=== PATIENT | male | born 1965 | race Caucasian/White ===

== ENCOUNTER 2017-06-15 05:31 | Inpatient (IN) ==
--- NOTE | 2017-06-15 05:44 | Emergency Department Note ---
Disposition Clinical Impression: Right flank pain Disposition: Still a Patient Condition: Fair Referrals: Miya Aden DO [Primary Care Provider] - Forms: ED Satisfaction Letter, Work/School Release Time of Disposition: 07:07 Abdominal Pain HPI - General Chief Complaint: ED Abdominal Pain Stated Complaint: right flank pain Time Seen by Provider: 06/15/17 06:00 Source: patient Mode of arrival: ambulatory Limitations: no limitations Nursing Notes Reviewed: Yes Vital Signs Reviewed: Yes - History of Present Illness HPI Narrative: 52-year-old male history of type 2 diabetes straight catheterizations previous scrotal infections presents complaining of right flank pain states that his pain is similar to previous episodes of kidney stones he reports no history of lithotripsy his past previous kidney stones by straight catheterization is at symptoms for last couple of days reports some dysuria denies hematuria. States that his pain is 10 out of 10 right flank radiating to his groin. Reports nausea but no emesis denies diarrhea hematochezia or melena. Pt Subjective Complaint: abdominal pain Onset (ago): day(s) Pain Severity: severe Pain Scale: 10 Quality: stabbing Radiation: none Migration to: no migration Improves with: nothing Worsens with: nothing Associated symptoms: Denies: nausea, vomiting, diarrhea, fever, chills, constipation - Related Data Previous Rx's Medication Instructions Recorded Terbinafine HCl [Lamisil At] 24 gm TP DAILY 10 Days #1 bottle 04/17/17 Allergies Allergy/AdvReac Type Severity Reaction Status Date / Time No Known Allergies Allergy Verified 06/15/17 05:31 All systems ED: reviewed and negative except as stated. Review of Systems: As Per HPI Constitutional: Denies: fever, chills Eyes: Denies: eye pain ENT ED: Denies: ear pain Cardiovascular: Denies: chest pain Respiratory: Denies: cough Gastrointestinal: Reports: as per HPI, abdominal pain, nausea Genitourinary: Denies: urgency Musculoskeletal: Denies: back pain Integumentary: Denies: rash Neurological: Denies: headache Psychiatric: Denies: anxiety Abdominal Pain PMH - Past Medical History Medical history: Reports: diabetes, hypertension Psychiatric history: Reports: anxiety - Social History Smoking status: Never smoker Alcohol use: Reports: none Drug use: Reports: none Physical Exam Constitutional: Uncomfortable appearing middle-aged male Eyes: PERRLA, sclera anicteric ENT & Mouth: MMM Neck: normal inspection, neck is supple Resp: CTA bilaterally, no resp distress CV: RRR, no m/g/r GI: normal inspection, soft, is right CVA tenderness mild right lower quadrant tenderness no guarding or rigidity Neuro: A&O3, CNII-XII grossly intact, HALL Skin: on limited exam, skin intact with no rashes or lesions - General Limitations: no limitations General appearance: alert, in no apparent distress Course Course Narrative: 50-year-old male with right CVA tenderness concerning for possible nephrolithiasis added BASIC lab work pain medication CT scan of abdomen urinalysis care be signed out to Dr. Worley and Dr. Jean for disposition pending CT scan lab work and imaging assessment. Vital Signs Temperature 97.7 F 06/15/17 05:33 Pulse Rate 89 06/15/17 05:33 Respiratory Rate 20 06/15/17 05:33 Blood Pressure 198/118 06/15/17 05:33 O2 Sat by Pulse Oximetry 100 06/15/17 05:33 Temperature 97.7 F 06/15/17 05:33 Pulse Rate 93 06/15/17 08:00 Respiratory Rate 16 06/15/17 08:00 Blood Pressure 106/88 06/15/17 08:00 O2 Sat by Pulse Oximetry 98 06/15/17 08:00 Oxygen Delivery Oxygen Delivery Room Air Abdominal Pain - Differential Diagnosis Differential Diagnosis: Likely: calculus of kidney, constipation, colonic obstruction, diverticulitis, diverticulosis - Lab Data Result diagrams: 06/15/17 06:43 Lab Results 06/15/17 06/15/17 Range/Units 06:08 06:43 Sodium 133 L (136-145) mEq/L Potassium 4.5 (3.5-5.1) mEq/L Chloride 104 (98-107) mEq/L Carbon Dioxide 19 L (23-29) mEq/L BUN 59 H (6-20) mg/dL Creatinine 3.85 H (0.70-1.30) mg/dL Est GFR ( Amer) 20 L (> 60) Est GFR (Non-Af Amer) 17 L (> 60) BUN/Creatinine Ratio 15 (6-26) Glucose 116 H (70-105) mg/dL Calculated Osmolality 294 (280-300) Calcium 8.6 (8.6-10.3) mg/dL Total Bilirubin 0.2 L (0.3-1.0) mg/dL Direct Bilirubin 0.0 (0.0-0.2) mg/dL Indirect Bilirubin 0.2 (0.0-1.2) mg/dL AST 13 (13-39) Units/L ALT 9 (7-52) Units/L Alkaline Phosphatase 100 (34-104) Units/L Serum Total Protein 7.2 (6.4-8.9) g/dL Albumin 2.9 L (3.5-5.7) g/dL Globulin 4.3 H (2.4-3.5) g/dL Albumin/Globulin Ratio 0.7 L (1.1-2.2) Lipase 8 L (11-82) Units/L Urine Color Yellow (Yellow) Urine Clarity Turbid A (Clear) Urine pH 6.5 (5.0-8.0) pH Units Ur Specific [place] 1.023 (1.010-1.025) Urine Protein >=1000 H (Neg-Trace) mg/dL Urine Glucose (UA) 250 H (Normal) mg/dL Urine Ketones Negative (Negative) mg/dL Urine Blood Small H (Negative) Urine Nitrite Negative (Negative) Urine Bilirubin Negative (Negative) Urine Urobilinogen Normal (Normal) mg/dL Ur Leukocyte Esterase Moderate H (Negative) Urine Microscopic RBC 5-15 H (0-3) per hpf Urine Microscopic WBC TNTC H (0-3) per hpf Ur Squamous Epith Cells Many H (None-Few) per lpf Urine Bacteria None Seen (None-Few) per hpf Hyaline Casts Few (None-Few) per lpf Urine Yeast Few H (None Seen) per hpf Ur Culture Indicated? NO. (NO) - Radiology Data Radiology results reviewed: Yes I reviewed the patient's radiology results. Abdomen/Pelvis CT 06/15/17 05:55 IMPRESSION: Right-sided hydronephrosis without ureteral or bladder calculus. High attenuation has developed in the proximal right ureter which may be due to hemorrhage given the rapid development. There is a tiny calculus within the right kidney. Urinary bladder wall thickening may represent cystitis or outlet obstruction. D/ / Artemio Jade MD / Artemio Jade MD Interpreting Provider: Artemio Jade MD S.Mimi - Andrew Transition of Care: Labs/ CT reassess Situation: Demographics, MOA Background: Presenting Complaint, Relevant PMH, Meds, & Allergies Assessment: Vital Signs, Course and respsone to treatment, Exam Concerns, Patient/Family Expectation, Pertinant Lab Results, Outstanding Labs Recommendation: Barrier(s) to disposition, Recommendation based on pending studies, treatments, or consults SMike Report Given to: Miranda Morales Repor Time: 07:08 Attestation Statement - Attestation Attestation: I, Danny Owens MD, personally evaluated this patient and discussed their management with the resident physician. I reviewed the resident's note and agree with the documented findings, medical decision making, and plan of care. 52-year-old male presents to the emergency department with a complaint of right flank pain and right lower abdominal pain for about 2 days prior to arrival. Also complains of dysuria. No gross hematuria. No fever. Some nausea but no vomiting or diarrhea. Patient does intermittent self straight catheters. He does have a history of urinary tract infections in the past and also history of kidney stones. He states he really cannot tell if this feels like a UTI or kidney stone. On examination patient is a well-developed obese male in no acute distress. He is alert and oriented. No cyanosis or diaphoresis. Sounds are clear and equal bilaterally. Heart regular rate and rhythm. Abdomen soft with normal bowel sounds. Some right mid and right lower abdominal tenderness with no guarding or rebound tenderness. Mild right CVA tenderness. At shift change test results are pending and patient is signed out to the oncoming dayshift team, Dr. Jean and Dr. Worley.
[2017-06-15 06:28] LABS: Bacteria,Urine None Seen per hpf (None-Few); Hyaline Casts,Urine Few per lpf (None-Few); Squamous Epithelial Cell,Urine Many per lpf (None-Few); WBC,Urine TNTC per hpf (0-3)
[2017-06-15 06:33] LABS: Bilirubin,Urine Negative (Negative); Blood,Urine Small (Negative); Clarity,Urine Turbid (Clear); Color,Urine Yellow (Yellow); Glucose,Urine (UA) 250 mg/dL (Normal); Ketones,Urine Negative (Negative); Leukocyte Esterase,Urine Moderate (Negative); Nitrite,Urine Negative (Negative); PH,Urine 6.5 pH Units (5.0-8.0); Protein,Urine >=1000 mg/dL (Neg-Trace); Specific Gravity,Urine 1.023 (1.010-1.025); Urobilinogen,Urine Normal (Normal)
[2017-06-15 06:37] LABS: Yeast,Urine Few per hpf (None Seen)
[2017-06-15] MEDS ORDERED: 0.9 % Sodium Chloride 1,000 ML IVC ONE (06:56)
[2017-06-15] MEDS ORDERED: Ketorolac 15 MG/ML VIAL IVP ONE (06:56)
[2017-06-15] MEDS ORDERED: *HR* FentaNYL (PF) 100 MCG/2 ML VIAL IVP ONE (07:06)
[2017-06-15] MEDS ORDERED: Ondansetron 4 MG/2 ML VIAL IVP ONE ×2 (07:06→15:25)
[2017-06-15] MEDS ORDERED: cefTRIAXone 1,000 MG in Water for inj. (sterile) 20 ML 10 ML IVP ONE (07:28)
--- NOTE | 2017-06-15 07:28 | Emergency Department Note ---
Disposition Clinical Impression: Right flank pain, Pyelonephritis, Acute kidney injury Disposition: Admitted As Inpatient Condition: Good Referrals: Miya Aden DO [Primary Care Provider] - Forms: ED Satisfaction Letter, Work/School Release Abdominal Pain HPI - General Chief Complaint: ED Abdominal Pain Stated Complaint: right flank pain Time Seen by Provider: 06/15/17 06:00 Source: patient Mode of arrival: ambulatory Nursing Notes Reviewed: Yes Vital Signs Reviewed: Yes - History of Present Illness Pt Subjective Complaint: abdominal pain Pain Severity: severe Pain Scale: 10 Quality: stabbing Migration to: no migration Improves with: nothing Worsens with: nothing Associated symptoms: Denies: nausea, vomiting, diarrhea, fever, chills, constipation - Related Data Home Medications Medication Instructions Recorded Confirmed Aspirin Enteric Coated [Aspirin EC] 81 mg PO DAILY 06/15/17 06/15/17 Insulin ASPART [Novolog Flexpen] 10 units SQ BID 06/15/17 06/15/17 Insulin ASPART [Novolog Flexpen] 15 units SQ 1200 06/15/17 06/15/17 Insulin Glargine,Hum.rec.anlog 60 units SQ HS 06/15/17 06/15/17 [Lantus Solostar] Lisinopril [Zestril] 10 mg PO DAILY 06/15/17 06/15/17 Allergies Allergy/AdvReac Type Severity Reaction Status Date / Time No Known Allergies Allergy Verified 06/15/17 05:31 Constitutional: Denies: fever, chills Eyes: Denies: eye pain ENT ED: Denies: ear pain Cardiovascular: Denies: chest pain Respiratory: Denies: cough Gastrointestinal: Reports: as per HPI, abdominal pain, nausea Genitourinary: Denies: urgency Musculoskeletal: Denies: back pain Integumentary: Denies: rash Neurological: Denies: headache Psychiatric: Denies: anxiety Abdominal Pain PMH - Past Medical History Medical history: Reports: diabetes, hypertension Psychiatric history: Reports: anxiety - Social History Smoking status: Never smoker Alcohol use: Reports: none Drug use: Reports: none Physical Exam - General Limitations: no limitations General appearance: alert, in no apparent distress Course Vital Signs Temperature 97.7 F 06/15/17 05:33 Pulse Rate 89 06/15/17 05:33 Respiratory Rate 20 06/15/17 05:33 Blood Pressure 198/118 06/15/17 05:33 O2 Sat by Pulse Oximetry 100 06/15/17 05:33 Temperature 97.7 F 06/15/17 05:33 Pulse Rate 91 06/15/17 11:00 Respiratory Rate 16 06/15/17 11:00 Blood Pressure 164/81 06/15/17 11:00 O2 Sat by Pulse Oximetry 98 06/15/17 11:00 Oxygen Delivery Oxygen Delivery Room Air Abdominal Pain - MDM Narrative Medical decision making narrative: This documentation is done with the assistance of Dragon dictation. Despite efforts made to ensure accuracy, there may be inaccuracies in mine promotor or spelling and typographical errors. I examined this patient and my medical decision-making was reviewed with the Resident Physician. I agree with the documented findings, disposition and treatment plan as described except to the extent set forth below. Patient seen and evaluated by Dr. Jean and myself, this was a sign out from the evening ER physician Dr. Owens and Dr. Alonzo. Patient is having flank pain CT shows no stone. He does have quite a few white cells in his urine and signs of infection. He has a history of pyelonephritis. Regular is labs back start him on antibiotics and admit. He is in agreement with this plan. Abdomen/Pelvis CT 06/15/17 05:55 IMPRESSION: Right-sided hydronephrosis without ureteral or bladder calculus. High attenuation has developed in the proximal right ureter which may be due to hemorrhage given the rapid development. There is a tiny calculus within the right kidney. Urinary bladder wall thickening may represent cystitis or outlet obstruction. D/ / Artemio Jade MD / Artemio Jade MD Interpreting Provider: Artemio Jade MD 1124 hrs.: Patient's currently admitted for pyelonephritis. He is in agreement with plan. - Lab Data Result diagrams: 06/15/17 06:43 06/15/17 06:43 Lab Results 06/15/17 06/15/17 06/15/17 Range/Units 06:08 06:43 06:43 WBC 13.5 H (4.3-11.1) K/mcL RBC 4.30 (4.19-5.50) M/mcL Hgb 12.0 L (12.9-16.9) g/dL Hct 35.6 L (37.5-50.1) % MCV 82.8 L (83.0-100.0) fL MCH 27.9 L (28.0-33.3) pg MCHC 33.7 (31.6-35.5) g/dL RDW 13.2 (11.5-14.5) % Plt Count 425 H (140-400) K/mcL MPV 8.9 L (9.4-12.4) fL Immature Gran % 0.4 (0-4) % Seg Neutrophils % 81.1 % Lymphocytes % 11.1 % Monocytes % 7.0 % Eosinophils % 0.1 % Basophils % 0.3 % Neutrophils # 10.9 H (1.6-8.9) K/mcL Lymphocytes # 1.5 (0.6-4.6) K/mcL Monocytes # 0.9 (0.0-1.3) K/mcL Eosinophils # 0.0 (0.0-0.6) K/mcL Basophils # 0.0 (0.0-0.2) K/mcL Sodium 133 L (136-145) mEq/L Potassium 4.5 (3.5-5.1) mEq/L Chloride 104 (98-107) mEq/L Carbon Dioxide 19 L (23-29) mEq/L BUN 59 H (6-20) mg/dL Creatinine 3.85 H (0.70-1.30) mg/dL Est GFR ( Amer) 20 L (> 60) Est GFR (Non-Af Amer) 17 L (> 60) BUN/Creatinine Ratio 15 (6-26) Glucose 116 H (70-105) mg/dL Calculated Osmolality 294 (280-300) Lactic Acid (0.5-2.2) mmol/L Calcium 8.6 (8.6-10.3) mg/dL Total Bilirubin 0.2 L (0.3-1.0) mg/dL Direct Bilirubin 0.0 (0.0-0.2) mg/dL Indirect Bilirubin 0.2 (0.0-1.2) mg/dL AST 13 (13-39) Units/L ALT 9 (7-52) Units/L Alkaline Phosphatase 100 (34-104) Units/L Creatine Kinase 62 (30-223) Units/L Serum Total Protein 7.2 (6.4-8.9) g/dL Albumin 2.9 L (3.5-5.7) g/dL Globulin 4.3 H (2.4-3.5) g/dL Albumin/Globulin Ratio 0.7 L (1.1-2.2) Lipase 8 L (11-82) Units/L Urine Color Yellow (Yellow) Urine Clarity Turbid A (Clear) Urine pH 6.5 (5.0-8.0) pH Units Ur Specific [place] 1.023 (1.010-1.025) Urine Protein >=1000 H (Neg-Trace) mg/dL Urine Glucose (UA) 250 H (Normal) mg/dL Urine Ketones Negative (Negative) mg/dL Urine Blood Small H (Negative) Urine Nitrite Negative (Negative) Urine Bilirubin Negative (Negative) Urine Urobilinogen Normal (Normal) mg/dL Ur Leukocyte Esterase Moderate H (Negative) Urine Microscopic RBC 5-15 H (0-3) per hpf Urine Microscopic WBC TNTC H (0-3) per hpf Ur Squamous Epith Cells Many H (None-Few) per lpf Urine Bacteria None Seen (None-Few) per hpf Hyaline Casts Few (None-Few) per lpf Urine Yeast Few H (None Seen) per hpf Ur Culture Indicated? NO. (NO) 06/15/17 Range/Units 10:10 WBC (4.3-11.1) K/mcL RBC (4.19-5.50) M/mcL Hgb (12.9-16.9) g/dL Hct (37.5-50.1) % MCV (83.0-100.0) fL MCH (28.0-33.3) pg MCHC (31.6-35.5) g/dL RDW (11.5-14.5) % Plt Count (140-400) K/mcL MPV (9.4-12.4) fL Immature Gran % (0-4) % Seg Neutrophils % % Lymphocytes % % Monocytes % % Eosinophils % % Basophils % % Neutrophils # (1.6-8.9) K/mcL Lymphocytes # (0.6-4.6) K/mcL Monocytes # (0.0-1.3) K/mcL Eosinophils # (0.0-0.6) K/mcL Basophils # (0.0-0.2) K/mcL Sodium (136-145) mEq/L Potassium (3.5-5.1) mEq/L Chloride (98-107) mEq/L Carbon Dioxide (23-29) mEq/L BUN (6-20) mg/dL Creatinine (0.70-1.30) mg/dL Est GFR ( Amer) (> 60) Est GFR (Non-Af Amer) (> 60) BUN/Creatinine Ratio (6-26) Glucose (70-105) mg/dL Calculated Osmolality (280-300) Lactic Acid 1.5 (0.5-2.2) mmol/L Calcium (8.6-10.3) mg/dL Total Bilirubin (0.3-1.0) mg/dL Direct Bilirubin (0.0-0.2) mg/dL Indirect Bilirubin (0.0-1.2) mg/dL AST (13-39) Units/L ALT (7-52) Units/L Alkaline Phosphatase (34-104) Units/L Creatine Kinase (30-223) Units/L Serum Total Protein (6.4-8.9) g/dL Albumin (3.5-5.7) g/dL Globulin (2.4-3.5) g/dL Albumin/Globulin Ratio (1.1-2.2) Lipase (11-82) Units/L Urine Color (Yellow) Urine Clarity (Clear) Urine pH (5.0-8.0) pH Units Ur Specific [place] (1.010-1.025) Urine Protein (Neg-Trace) mg/dL Urine Glucose (UA) (Normal) mg/dL Urine Ketones (Negative) mg/dL Urine Blood (Negative) Urine Nitrite (Negative) Urine Bilirubin (Negative) Urine Urobilinogen (Normal) mg/dL Ur Leukocyte Esterase (Negative) Urine Microscopic RBC (0-3) per hpf Urine Microscopic WBC (0-3) per hpf Ur Squamous Epith Cells (None-Few) per lpf Urine Bacteria (None-Few) per hpf Hyaline Casts (None-Few) per lpf Urine Yeast (None Seen) per hpf Ur Culture Indicated? (NO)
[2017-06-15 07:43] LABS: Albumin 2.9 g/dL (3.5-5.7); Albumin/Globulin Ratio 0.7 (1.1-2.2); Bilirubin,Indirect 0.2 mg/dL (0.0-1.2); Bilirubin,Total 0.2 mg/dL (0.3-1.0); Calcium 8.6 mg/dL (8.6-10.3); Globulin 4.3 g/dL (2.4-3.5); Potassium 4.5 mEq/L (3.5-5.1); Total Protein 7.2 g/dL (6.4-8.9)
[2017-06-15 08:11] LABS: Basophils % 0.3 %; Eosinophils % 0.1 %; Hematocrit 35.6 % (37.5-50.1); Immature Granulocytes % 0.4 % (0-4); Lymphocytes # 1.5 K/mcL (0.6-4.6); Lymphocytes % 11.1 %; Mean Corpuscular HGB Conc 33.7 g/dL (31.6-35.5); Mean Corpuscular Hemoglobin 27.9 pg (28.0-33.3); Mean Corpuscular Volume 82.8 fL (83.0-100.0); Mean Platelet Volume 8.9 fL (9.4-12.4); Monocytes # 0.9 K/mcL (0.0-1.3); Neutrophils # 10.9 K/mcL (1.6-8.9); Platelet Count 425 K/mcL (140-400); Red Cell Distribution Width 13.2 % (11.5-14.5); Segmented Neutrophils % 81.1 %
--- NOTE | 2017-06-15 08:45 | Emergency Department Note ---
Disposition Clinical Impression: Right flank pain, Pyelonephritis, Acute kidney injury Disposition: Admitted As Inpatient Condition: Good Referrals: Miya Aden DO [Primary Care Provider] - Forms: ED Satisfaction Letter, Work/School Release Abdominal Pain HPI - General Chief Complaint: ED Abdominal Pain Stated Complaint: right flank pain Time Seen by Provider: 06/15/17 06:00 Source: patient Mode of arrival: ambulatory - History of Present Illness Pt Subjective Complaint: abdominal pain Pain Severity: severe Pain Scale: 10 Quality: stabbing Migration to: no migration Improves with: nothing Worsens with: nothing Associated symptoms: Denies: nausea, vomiting, diarrhea, fever, chills, constipation - Related Data Home Medications Medication Instructions Recorded Confirmed Aspirin Enteric Coated [Aspirin EC] 81 mg PO DAILY 06/15/17 06/15/17 Insulin ASPART [Novolog Flexpen] 10 units SQ BID 06/15/17 06/15/17 Insulin ASPART [Novolog Flexpen] 15 units SQ 1200 06/15/17 06/15/17 Insulin Glargine,Hum.rec.anlog 60 units SQ HS 06/15/17 06/15/17 [Lantus Solostar] Lisinopril [Zestril] 10 mg PO DAILY 06/15/17 06/15/17 Allergies Allergy/AdvReac Type Severity Reaction Status Date / Time No Known Allergies Allergy Verified 06/15/17 05:31 Constitutional: Denies: fever, chills Eyes: Denies: eye pain ENT ED: Denies: ear pain Cardiovascular: Denies: chest pain Respiratory: Denies: cough Gastrointestinal: Reports: as per HPI, abdominal pain, nausea Genitourinary: Denies: urgency Musculoskeletal: Denies: back pain Integumentary: Denies: rash Neurological: Denies: headache Psychiatric: Denies: anxiety Abdominal Pain PMH - Past Medical History Medical history: Reports: diabetes, hypertension Psychiatric history: Reports: anxiety - Social History Smoking status: Never smoker Alcohol use: Reports: none Drug use: Reports: none Physical Exam - General Limitations: no limitations General appearance: alert, in no apparent distress Course Course Narrative: Taken over at sign out from Dr. Alonzo. Patient is a type II diabetic that presented today for left flank pain. History of scrotal infections and kidney stones. The patient received basic blood work and urinalysis as well as a CT scan of his abdomen and pelvis. Urinalysis concerning for infection. CT scan concerning for hydronephrosis as well as high attenuation within the ureter. Discussed with urology who states that he may need further urologic intervention but nothing emergent at this time. We will be happy to consult while he is in the hospital. Antibiotics and fluids have been administered within the emergency department. The patient is much more comfortable. He continues to have right-sided flank pain with radiation into the groin. The patient's exam shows some moderate phimosis with mild tenderness to the right scrotal area without erythema or open lesion or any signs of infection. He does have his lower legs wrapped with Kerlix and Coban and from chronic leg wounds that he is following with the wound care center here. He does have an appointment today at 3 PM. Mildly elevated white count. Elevated creatinine from baseline. Has not followed with nephrology but is getting scheduled to follow with Dr. Womack. Urinalysis concerning for infection. CT scan concerning for pyelonephritis and increased attenuation which differential could include everything from tumor to hemorrhage and was discussed with urology. May need further visualization which urology has been consulted for. Patient discussed with the hospitalist. Patient accepted for admission. - Consultations Consultation #1: Discussed with Dr. Peraza, urology, they will consult on the patient in the hospital. Recommend's blood culture but no other interventions at this time. Consultation #2: Discussed with the hospitalist, Dr. Brizuela. The patient does have a heart rate of 98 on initial triage. Given his white count he does meet sepsis criteria. Lactate has been added to the previous blood culture as well as workup given by the day team. I discussed the nurse and the patient did receive the medications prescribed by the day team. We have added ceftriaxone, blood culture, lactic acid. Patient has received 1 L bolus of fluids and given his kidney function we will continue to monitor his creatinine and urine output. Vital Signs Temperature 97.7 F 06/15/17 05:33 Pulse Rate 89 06/15/17 05:33 Respiratory Rate 20 06/15/17 05:33 Blood Pressure 198/118 06/15/17 05:33 O2 Sat by Pulse Oximetry 100 06/15/17 05:33 Temperature 97.7 F 06/15/17 05:33 Pulse Rate 87 06/15/17 09:30 Respiratory Rate 16 06/15/17 09:30 Blood Pressure 155/87 06/15/17 09:30 O2 Sat by Pulse Oximetry 98 06/15/17 09:30 Oxygen Delivery Oxygen Delivery Room Air Abdominal Pain - Lab Data Result diagrams: 06/15/17 06:43 06/15/17 06:43 Lab Results 06/15/17 06/15/17 06/15/17 Range/Units 06:08 06:43 06:43 WBC 13.5 H (4.3-11.1) K/mcL RBC 4.30 (4.19-5.50) M/mcL Hgb 12.0 L (12.9-16.9) g/dL Hct 35.6 L (37.5-50.1) % MCV 82.8 L (83.0-100.0) fL MCH 27.9 L (28.0-33.3) pg MCHC 33.7 (31.6-35.5) g/dL RDW 13.2 (11.5-14.5) % Plt Count 425 H (140-400) K/mcL MPV 8.9 L (9.4-12.4) fL Immature Gran % 0.4 (0-4) % Seg Neutrophils % 81.1 % Lymphocytes % 11.1 % Monocytes % 7.0 % Eosinophils % 0.1 % Basophils % 0.3 % Neutrophils # 10.9 H (1.6-8.9) K/mcL Lymphocytes # 1.5 (0.6-4.6) K/mcL Monocytes # 0.9 (0.0-1.3) K/mcL Eosinophils # 0.0 (0.0-0.6) K/mcL Basophils # 0.0 (0.0-0.2) K/mcL Sodium 133 L (136-145) mEq/L Potassium 4.5 (3.5-5.1) mEq/L Chloride 104 (98-107) mEq/L Carbon Dioxide 19 L (23-29) mEq/L BUN 59 H (6-20) mg/dL Creatinine 3.85 H (0.70-1.30) mg/dL Est GFR ( Amer) 20 L (> 60) Est GFR (Non-Af Amer) 17 L (> 60) BUN/Creatinine Ratio 15 (6-26) Glucose 116 H (70-105) mg/dL Calculated Osmolality 294 (280-300) Calcium 8.6 (8.6-10.3) mg/dL Total Bilirubin 0.2 L (0.3-1.0) mg/dL Direct Bilirubin 0.0 (0.0-0.2) mg/dL Indirect Bilirubin 0.2 (0.0-1.2) mg/dL AST 13 (13-39) Units/L ALT 9 (7-52) Units/L Alkaline Phosphatase 100 (34-104) Units/L Serum Total Protein 7.2 (6.4-8.9) g/dL Albumin 2.9 L (3.5-5.7) g/dL Globulin 4.3 H (2.4-3.5) g/dL Albumin/Globulin Ratio 0.7 L (1.1-2.2) Lipase 8 L (11-82) Units/L Urine Color Yellow (Yellow) Urine Clarity Turbid A (Clear) Urine pH 6.5 (5.0-8.0) pH Units Ur Specific [place] 1.023 (1.010-1.025) Urine Protein >=1000 H (Neg-Trace) mg/dL Urine Glucose (UA) 250 H (Normal) mg/dL Urine Ketones Negative (Negative) mg/dL Urine Blood Small H (Negative) Urine Nitrite Negative (Negative) Urine Bilirubin Negative (Negative) Urine Urobilinogen Normal (Normal) mg/dL Ur Leukocyte Esterase Moderate H (Negative) Urine Microscopic RBC 5-15 H (0-3) per hpf Urine Microscopic WBC TNTC H (0-3) per hpf Ur Squamous Epith Cells Many H (None-Few) per lpf Urine Bacteria None Seen (None-Few) per hpf Hyaline Casts Few (None-Few) per lpf Urine Yeast Few H (None Seen) per hpf Ur Culture Indicated? NO. (NO)
[2017-06-15] MEDS ORDERED: Naloxone 0.4 MG/ML INJ IVP PRN (10:12)
[2017-06-15] MEDS ORDERED: Acetaminophen 325 MG TABLET PO PRN (10:12)
[2017-06-15] MEDS ORDERED: D5% in Water 1,000 ML IVC PRN (10:23)
[2017-06-15] MEDS ORDERED: Dextrose Gel 15 GM/37.5 ML TUBE PO PRN ×2 (10:23)
[2017-06-15] MEDS ORDERED: *HR* Dextrose 50 % in Water (Syg) 50 ML SYRINGE IVP PRN (10:23)
--- NOTE | 2017-06-15 10:36 | Internal Med History&Physical ---
<Candis Castillo - Last Filed: 06/15/17 13:30> Date of Encounter: 06/15/17 Time of Encounter: 10:33 Assessment and Plan (1) Acute kidney injury superimposed on chronic kidney disease Current visit: Yes Status: Acute patient arrived with right flank pain. ROBERT on CKD with Cr 3.85, unsure of baseline. in setting of uncontrolled diabetes, suspect this is CKD secondary to diabetic nephropathy Last A1C in May was 11.6% CT abdomen/pelvis showed right sided hydronephrosis without ureteral or bladder stone, high attenuation in proximal right ureter which may possibly represent hemorrhage. There was urinary bladder wall thickening received 1 fluid bolus in the ED, one dose Rocephin. Plan: appreciate nephrology and urology recs blood and urine cultures pending continue Rocephin CPK, urine sodium, urine Creatinine pending hold lisinopril continue to follow renal protective strategy, avoid nephrotoxins. (2) Sepsis Current visit: Yes Status: Acute HR 98, WBC 13.5, source unclear at this time. UA was contaminated. possibilities include UTI, diabetic ulcers. Plan: continue Rocephin blood and urine cultures pending Qualifiers: Sepsis type: sepsis due to unspecified organism Qualified Code(s): A41.9 - Sepsis, unspecified organism (3) Right flank pain Current visit: Yes Status: Acute plan as above (4) Hypertension Current visit: Yes Status: Acute hold lisinopril due to ROBERT continue NOrvasc hydralazine PRN Qualifiers: Hypertension type: unspecified Qualified Code(s): I10 - Essential (primary ) hypertension (5) Diabetes Current visit: Yes Status: Acute History of uncontrolled diabetes with multiple scrotal ulcers in the past has lower extremity diabetic ulcers for which he sees wound care. A1C from 06/01/17 was 11.6% has CKD as well, was supposed to see Dr. Womack outpatient this week. Plan: ADA diet low-dose sliding scale with HS insulin ACHS accuchecks Qualifiers: Diabetes mellitus type: type 2 Diabetes mellitus complication status: with kidney complications Diabetes mellitus complication detail: with chronic kidney disease Diabetes mellitus chcf insulin use: with watermelon inspector use Chronic kidney disease stage: unspecified stage Qualified Code(s): E11.22 - Type 2 diabetes mellitus with diabetic chronic kidney disease; Z79.4 - alf (current) use of insulin; Z79.4 - intermediate card tender (current) use of insulin; Z79.4 - alf (current) use of insulin; Z79.4 - alf (current) use of insulin (6) Healing wound present on both lower extremities Current visit: Yes Status: Acute diabetic ulcers present on bilateral lower extremities. Patient states he sees Dr. Pineda outpatient. Plan: consult to wound care. spoke with Jocelynn Negrete, she states she will made recommendations for wound care. (7) DVT prophylaxis Current visit: Yes Status: Acute Heparin SQ Internal Medicine - H&P: HPI Chief complaint: right flank pain Admitted From: Emergency Dept Plans for Post Hospital Care: Home History of present illness: Mr. Hernandez is a 52 year old male past medical history of CKD stage 4, uncontrolled DM2 on insulin, history of multiple scrotal infections, hx of diabetic foot ulcers. Patient arrived to the emergency room today with chief complaint of right sided flank pain that has been going on for about 3 days. He stated the pain is a dull ache in his constant, he rates the pain about 7/ 10. He also states that he had about 8 episodes of nausea with vomiting, and subjective fevers and chills. He denies chest pain, shortness of breath, hematuria, hematochezia, melena. Patient states that he has been self cathing for multiple years and could not tell me what led to this. He has not seen a [id number] armor crewman for several years and was supposed to see Dr. Womack as outpatient later this week. Past Med Surg Social Fam HX - Past Medical History Medical history: diabetes, hypertension Psychiatric history: anxiety - Past Surgical History Surgical History: cholecystectomy - Social History Smoking Status: Never smoker Smokeless Tobacco Status: No Alcohol use: none Drug use: none - Family History Mother Living Status: Hx Family Cardiac Disorders: Yes Hx Family Respiratory Disorders: Yes Hx Family Endocrine Disorder: Yes Father Living Status: Hx Family Cardiac Disorders: Yes Hx Family Cancer: Yes Hx Family Endocrine Disorder: Yes Internal Medicine - H&P: Meds Aspirin Enteric Coated [Aspirin EC] 81 mg PO DAILY 06/15/17 [History] Insulin ASPART [Novolog Flexpen] 10 units SQ BID 06/15/17 [History] Insulin ASPART [Novolog Flexpen] 15 units SQ 1200 06/15/17 [History] Insulin Glargine,Hum.rec.anlog [Lantus Solostar] 60 units SQ HS 06/15/17 [ History] Lisinopril [Zestril] 10 mg PO DAILY 06/15/17 [History] 3 Allergy/AdvReac Type Severity Reaction Status Date / Time No Known Allergies Allergy Verified 06/15/17 05:31 All Systems PM: A 10-system review of systems was performed and is negative for pertinent findings except as documented above in the HPI. - Constitutional Constitutional: as per HPI - Constitutional Vitals: Temp Pulse Resp BP Pulse Ox 97.7 F 87 16 155/87 98 06/15/17 05:33 06/15/17 09:30 06/15/17 09:30 06/15/17 09:30 06/15/17 09:30 Internal Med - H&P Results - Labs CBC & Chem 7: 06/15/17 06:43 06/15/17 06:43 Labs: Short CBC 06/15/17 Range/Units 06:43 WBC 13.5 H (4.3-11.1) K/mcL Hgb 12.0 L (12.9-16.9) g/dL Hct 35.6 L (37.5-50.1) % Plt Count 425 H (140-400) K/mcL Neutrophils # 10.9 H (1.6-8.9) K/mcL BMP 06/15/17 06:43 Sodium 133 L Potassium 4.5 Chloride 104 Carbon Dioxide 19 L BUN 59 H Creatinine 3.85 H Glucose 116 H Calcium 8.6 Liver Function 06/15/17 Range/Units 06:43 Total Bilirubin 0.2 L (0.3-1.0) mg/dL Direct Bilirubin 0.0 (0.0-0.2) mg/dL AST 13 (13-39) Units/L ALT 9 (7-52) Units/L Alkaline Phosphatase 100 (34-104) Units/L Albumin 2.9 L (3.5-5.7) g/dL Urine 06/15/17 Range/Units 06:08 Urine Color Yellow (Yellow) Urine Clarity Turbid A (Clear) Urine pH 6.5 (5.0-8.0) pH Units Ur Specific [place] 1.023 (1.010-1.025) Urine Protein >=1000 H (Neg-Trace) mg/dL Urine Glucose (UA) 250 H (Normal) mg/dL - Impressions ITS Impressions Abdomen/Pelvis CT 06/15/17 05:55 IMPRESSION: Right-sided hydronephrosis without ureteral or bladder calculus. High attenuation has developed in the proximal right ureter which may be due to hemorrhage given the rapid development. There is a tiny calculus within the right kidney. Urinary bladder wall thickening may represent cystitis or outlet obstruction. D/ / Artemio Jade MD / Artemio Jade MD Interpreting Provider: Artemio Jade MD <Keven Brizuela - Last Filed: 06/15/17 15:05> Date of Encounter: 06/15/17 Internal Medicine - H&P: HPI History of present illness: Mr. Hernandez is a 52 year old male All Systems PM: A 10-system review of systems was performed and is negative for pertinent findings except as documented above in the HPI. - Constitutional Vitals: Temp Pulse Resp BP Pulse Ox 98.5 F 83 20 193/95 97 06/15/17 12:13 06/15/17 12:13 06/15/17 12:13 06/15/17 12:13 06/15/17 12:13 Internal Med - H&P Results - Labs CBC & Chem 7: 06/15/17 06:43 06/15/17 06:43 Labs: Short CBC 06/15/17 Range/Units 06:43 WBC 13.5 H (4.3-11.1) K/mcL Hgb 12.0 L (12.9-16.9) g/dL Hct 35.6 L (37.5-50.1) % Plt Count 425 H (140-400) K/mcL Neutrophils # 10.9 H (1.6-8.9) K/mcL BMP 06/15/17 06:43 Sodium 133 L Potassium 4.5 Chloride 104 Carbon Dioxide 19 L BUN 59 H Creatinine 3.85 H Glucose 116 H Calcium 8.6 Liver Function 06/15/17 Range/Units 06:43 Total Bilirubin 0.2 L (0.3-1.0) mg/dL Direct Bilirubin 0.0 (0.0-0.2) mg/dL AST 13 (13-39) Units/L ALT 9 (7-52) Units/L Alkaline Phosphatase 100 (34-104) Units/L Albumin 2.9 L (3.5-5.7) g/dL Urine 06/15/17 Range/Units 06:08 Urine Color Yellow (Yellow) Urine Clarity Turbid A (Clear) Urine pH 6.5 (5.0-8.0) pH Units Ur Specific [place] 1.023 (1.010-1.025) Urine Protein >=1000 H (Neg-Trace) mg/dL Urine Glucose (UA) 250 H (Normal) mg/dL - Impressions ITS Impressions Abdomen/Pelvis CT 06/15/17 05:55 IMPRESSION: Right-sided hydronephrosis without ureteral or bladder calculus. High attenuation has developed in the proximal right ureter which may be due to hemorrhage given the rapid development. There is a tiny calculus within the right kidney. Urinary bladder wall thickening may represent cystitis or outlet obstruction. D/ / Artemio Jade MD / Artemio Jade MD Interpreting Provider: Artemio Jade MD - Attending Attestation I examined this patient and my medical decision-making was reviewed with the Resident Physician, Dr Castillo. I agree with the documented findings, disposition and treatment plan as described except to the extent set forth below. Patient presented to the hospital due to right flank pain, on exam he is in moderate distress due to pain. Heart is regular. Lungs are clear. Abdomen is tender in the right flank, there is right CVA tenderness. Plan: Blood cultures, IV ceftriaxone for sepsis with suspected urinary source, likely right pyelonephritis cystitis. Follow-up urine culture sent from the emergency department. Consult urology. Consult nephrology for worsening renal failure.
[2017-06-15] MEDS ORDERED: *HR* OxyCODONE Immed Rel 5 MG TABLET PO STA ×2 (10:55→15:35)
[2017-06-15] MEDS: amLODIPine 5 MG TABLET PO SCH (12:46)
[2017-06-15 14:01] LABS: Sodium, Urine 73.3 mEq/L
[2017-06-15] MEDS ORDERED: *HR* OxyCODONE Immed Rel 5 MG TABLET PO ONE (15:25)
[2017-06-15] MEDS: Insulin LISPRO 300 UNITS/3 ML VIAL SQ SCH ×2 (17:05→18:05)
--- NOTE | 2017-06-15 17:28 | Urology - Consult Note ---
Date of Encounter: 06/15/17 Time of Encounter: 17:26 - Assessment and Plan (1) Neurogenic bladder Current Visit: Yes Status: Acute Assessment and plan: 52-year-old man with a neurogenic bladder. I advised him to continue to straight catheterize per his normal home routine. I discussed placing a Gaitan catheter, but he declined. (2) Hydronephrosis Current Visit: Yes Status: Acute Assessment and plan: I reviewed his CT scan. There is some concern for possible new mild right hydronephrosis. There is no evidence of obstructing ureteral stone. This may be due to ureteral hemorrhage from a severe ureter tract infection. I think it is reasonable to observe as he has not shown evidence of sepsis. If he develops a fever or his clinical status changes, then I would recommend proceeding with either a cystoscopy and right ureteral stent placement for placement of a right nephrostomy tube. He can continue with clear liquids tonight. I will make him nothing to eat past midnight. We will closely monitor. He does okay and his pain improves, we can consider repeat imaging in the future or consider a diagnostic right ureteroscopy once his infection has resolved. Qualifiers: Qualified Code(s): N13.30 - Unspecified hydronephrosis (3) Pyelonephritis Current Visit: Yes Status: Acute Assessment and plan: He likely has pyelonephritis in the right side. This is secondary to self- catheterization. Microbiology is pending on his urine culture. Blood cultures have been ordered. We will monitor for now. If he develops a fever, then we may need to proceed with drainage of the right kidney via nephrostomy tube or stent.. Urology CN:HPI Consult date: 06/15/17 Reason for consult Urology: Other (UTI) Requesting physician: Johnny Jean History of present illness: 52-year-old diabetic male with a neurogenic bladder presents for a urinary tract infection and right flank pain. He says a right flank pain started about 2 days ago. He says it is moderate to severe. It radiates to his groin. He feels like he has a kidney stone. He denies any fevers or chills. He is having some nausea. He reports that he has a neurogenic bladder and has to catheterize himself 4-5 times per day. He also reports having a urethral stricture. He says he is able to get a catheter in. He has a long-standing history of diabetes which has not been well controlled. Upon presentation to the emergency department a CT scan was performed. This showed new right hydroureteronephrosis. It was no evidence of stone. There was stranding around the right kidney. There was some elevated density material within the ureter which seemed consistent with hemorrhage. Past Med Surg Social Fam HX - Past Medical History Medical history: diabetes, hypertension Psychiatric history: anxiety - Past Surgical History Surgical History: cholecystectomy - Social History Smoking Status: Never smoker Smokeless Tobacco Status: No Alcohol use: none Drug use: none - Family History Mother Living Status: Hx Family Cardiac Disorders: Yes Hx Family Respiratory Disorders: Yes Hx Family Endocrine Disorder: Yes Father Living Status: Hx Family Cardiac Disorders: Yes Hx Family Cancer: Yes Hx Family Endocrine Disorder: Yes Medications and Allergies Aspirin Enteric Coated [Aspirin EC] 81 mg PO DAILY 06/15/17 [History] Insulin ASPART [Novolog Flexpen] 10 units SQ BID 06/15/17 [History] Insulin ASPART [Novolog Flexpen] 15 units SQ 1200 06/15/17 [History] Insulin Glargine,Hum.rec.anlog [Lantus Solostar] 60 units SQ HS 06/15/17 [ History] Lisinopril [Zestril] 10 mg PO DAILY 06/15/17 [History] 3 Allergy/AdvReac Type Severity Reaction Status Date / Time No Known Allergies Allergy Verified 06/15/17 05:31 Review of Systems - Constitutional no chills, no fever(s) - EENT Nose, mouth and throat: no dizziness - Cardiovascular no chest pain - Respiratory no dyspnea - Gastrointestinal nausea, vomiting - Genitourinary flank pain, no hematuria - Musculoskeletal no back pain - Integumentary no erythema, no rash - Neurological no weakness - Psychiatric no suicidal ideation - Hematologic/Lymphatic no easy bleeding - Allergic/Immunologic no wheezing Exam Initial Vital Signs Temp Pulse Resp BP Pulse Ox 97.7 F 89 20 198/118 100 06/15/17 05:33 06/15/17 05:33 06/15/17 05:33 06/15/17 05:33 06/15/17 05:33 - General physical appearance Present: well developed, well nourished, no distress - Eyes Absent: icteric - ENT Present: normal nares - Neck Present: trachea midline - Respiratory Present: normal respiratory effort - Cardiovascular Cardiovascular exam IM: RRR - Abdomen Abdomen: Present: soft (Right flank pain) - Genitourinary normal penis with no external lesions, other (Phimotic foreskin, Testicles are descended bilaterally without mass.) - Integumentary Present: no rash - Neurologic Present: normal coordination Urology Results - Labs 06/15/17 06:43 03 06:43 Abnormal lab results WBC 13.5 K/mcL (4.3-11.1) H 06/15/17 06:43 Hgb 12.0 g/dL (12.9-16.9) L 06/15/17 06:43 Hct 35.6 % (37.5-50.1) L 06/15/17 06:43 MCV 82.8 fL (83.0-100.0) L 06/15/17 06:43 MCH 27.9 pg (28.0-33.3) L 06/15/17 06:43 Plt Count 425 K/mcL (140-400) H 06/15/17 06:43 MPV 8.9 fL (9.4-12.4) L 06/15/17 06:43 Neutrophils # 10.9 K/mcL (1.6-8.9) H 06/15/17 06:43 Sodium 133 mEq/L (136-145) L 06/15/17 06:43 Carbon Dioxide 19 mEq/L (23-29) L 06/15/17 06:43 BUN 59 mg/dL (6-20) H 06/15/17 06:43 Creatinine 3.85 mg/dL (0.70-1.30) H 06/15/17 06:43 Est GFR ( Amer) 20 (> 60) L 06/15/17 06:43 Est GFR (Non-Af Amer) 17 (> 60) L 06/15/17 06:43 Glucose 116 mg/dL (70-105) H 06/15/17 06:43 POC Glucose 111 (58-89) H 06/15/17 12:14 Total Bilirubin 0.2 mg/dL (0.3-1.0) L 06/15/17 06:43 Albumin 2.9 g/dL (3.5-5.7) L 06/15/17 06:43 Globulin 4.3 g/dL (2.4-3.5) H 06/15/17 06:43 Albumin/Globulin Ratio 0.7 (1.1-2.2) L 06/15/17 06:43 Lipase 8 Units/L (11-82) L 06/15/17 06:43 Urine Clarity Turbid (Clear) A 06/15/17 06:08 Urine Protein >=1000 mg/dL (Neg-Trace) H 06/15/17 06:08 Urine Glucose (UA) 250 mg/dL (Normal) H 06/15/17 06:08 Urine Blood Small (Negative) H 06/15/17 06:08 Ur Leukocyte Esterase Moderate (Negative) H 06/15/17 06:08 Urine Microscopic RBC 5-15 per hpf (0-3) H 06/15/17 06:08 Urine Microscopic WBC TNTC per hpf (0-3) H 06/15/17 06:08 Ur Squamous Epith Cells Many per lpf (None-Few) H 06/15/17 06:08 Urine Yeast Few per hpf (None Seen) H 06/15/17 06:08 All other labs normal. - Imaging CT scan - abdomen: report reviewed, image reviewed CT scan - pelvis: report reviewed, image reviewed Consult Discharge Plan - Plan Referrals: Miya Aden, [Primary Care Provider] -
[2017-06-15] MEDS: *HR* OxyCODONE Immed Rel 5 MG TABLET PO PRN (18:07)
[2017-06-15] MEDS: *HR* Heparin 5,000 UNIT/ML VIAL SQ SCH (18:07)
[2017-06-15] MEDS: Ondansetron 4 MG/2 ML VIAL IVP PRN (18:07)
[2017-06-15] MEDS ORDERED: Insulin DETEMIR 100 UNIT/ML X5UNITS SQ SCH (21:00)
[2017-06-15] MEDS ORDERED: Insulin LISPRO 300 UNITS/3 ML VIAL SQ SCH (21:00)
[2017-06-16] MEDS: Ondansetron 4 MG/2 ML VIAL IVP PRN ×2 (03:14→09:08)
[2017-06-16] MEDS: *HR* OxyCODONE Immed Rel 5 MG TABLET PO PRN ×4 (03:14→22:04)
[2017-06-16] MEDS: *HR* Heparin 5,000 UNIT/ML VIAL SQ SCH ×2 (05:03→16:36)
[2017-06-16 05:15] LABS: Basophils % 0.2 %; Eosinophils # 0.1 K/mcL (0.0-0.6); Eosinophils % 0.5 %; Hematocrit 33.1 % (37.5-50.1); Hemoglobin 10.8 g/dL (12.9-16.9); Immature Granulocytes % 0.7 % (0-4); Lymphocytes # 1.5 K/mcL (0.6-4.6); Lymphocytes % 9.2 %; Mean Corpuscular HGB Conc 32.6 g/dL (31.6-35.5); Mean Corpuscular Hemoglobin 27.5 pg (28.0-33.3); Mean Corpuscular Volume 84.2 fL (83.0-100.0); Mean Platelet Volume 8.8 fL (9.4-12.4); Monocytes # 1.6 K/mcL (0.0-1.3); Monocytes % 9.8 %; Neutrophils # 13.1 K/mcL (1.6-8.9); Platelet Count 319 K/mcL (140-400); Red Blood Count 3.93 M/mcL (4.19-5.50); Red Cell Distribution Width 13.3 % (11.5-14.5); Segmented Neutrophils % 79.6 %
[2017-06-16 05:24] LABS: Calcium 7.9 mg/dL (8.6-10.3); Potassium 5.2 mEq/L (3.5-5.1)
--- NOTE | 2017-06-16 07:15 | Urology Progress Note ---
Date of Encounter: 06/16/17 Time of Encounter: 07:13 - Assessment and Plan (1) Neurogenic bladder Current Visit: Yes Status: Acute Assessment and plan: We will place Gaitan catheter in the operating room. (2) Hydronephrosis Current Visit: Yes Status: Acute Assessment and plan: His renal function has worsened overnight. I recommend proceeding with a cystoscopy and right ureteral stent placement. I also discussed the possible right ureteroscopy. I discussed the risks of the surgery including but not limited to bleeding, infection, injury to other structures, need for further procedures, stent irritation, ureteral perforation, need for nephrostomy tube, need for open repair, risks unforeseen, need for biopsy, and the risk of anesthesia. He is willing to proceed. Qualifiers: Qualified Code(s): N13.30 - Unspecified hydronephrosis (3) Pyelonephritis Current Visit: Yes Status: Acute Assessment and plan: His urine culture was negative. I would continue IV antibiotics for now given that he had a low-grade temperature yesterday. Progress Note Narrative: Patient feels "okay" today. However, creatinine smooth overnight. Urine culture was negative. Still with some right flank pain. Objective Initial Vital Signs Temp Pulse Resp BP Pulse Ox 97.7 F 89 20 198/118 100 06/15/17 05:33 06/15/17 05:33 06/15/17 05:33 06/15/17 05:33 06/15/17 05:33 - General physical appearance Present: well developed, well nourished, no distress - Respiratory Present: normal expansion - Abdomen Present: soft - Labs 06/16/17 05:02 06/16/17 05:02 Diabetes panel 06/16/17 Range/Units 05:02 Sodium 132 L (136-145) mEq/L Potassium 5.2 H (3.5-5.1) mEq/L Chloride 105 (98-107) mEq/L Carbon Dioxide 19 L (23-29) mEq/L BUN 68 H (6-20) mg/dL Creatinine 4.99 H (0.70-1.30) mg/dL Glucose 172 H (70-105) mg/dL Calcium 7.9 L (8.6-10.3) mg/dL Calcium panel 06/16/17 Range/Units 05:02 Calcium 7.9 L (8.6-10.3) mg/dL Pituitary panel 06/16/17 Range/Units 05:02 Sodium 132 L (136-145) mEq/L Potassium 5.2 H (3.5-5.1) mEq/L Chloride 105 (98-107) mEq/L Carbon Dioxide 19 L (23-29) mEq/L BUN 68 H (6-20) mg/dL Creatinine 4.99 H (0.70-1.30) mg/dL Glucose 172 H (70-105) mg/dL Calcium 7.9 L (8.6-10.3) mg/dL Adrenal panel 06/16/17 Range/Units 05:02 Sodium 132 L (136-145) mEq/L Potassium 5.2 H (3.5-5.1) mEq/L Chloride 105 (98-107) mEq/L Carbon Dioxide 19 L (23-29) mEq/L BUN 68 H (6-20) mg/dL Creatinine 4.99 H (0.70-1.30) mg/dL Glucose 172 H (70-105) mg/dL Calcium 7.9 L (8.6-10.3) mg/dL Consult Discharge Plan - Plan Referrals: Miya Aden DO [Primary Care Provider] -
--- NOTE | 2017-06-16 08:23 | Nephrology Consult Note ---
Date of Encounter: 06/16/17 Time of Encounter: 08:19 Assessment and Plan (1) Acute kidney injury Current Visit: Yes Status: Acute Scr 3.85 GFR 12 Only past lab available is from 04/17/17 with a Scr 2.74 and GFR 25 No urgent need for RN STAFFING today; will see how kidney function looks in the am after the ureteral stent is placed today If renal function no better tomorrow will make patient NPO and plan for a permacath placement and HD. Will need a renal diet when diet advanced Strict I/Os Workup to include: Urine sodium, urine creatinine, urine eosinophils, CPK, uric acid, protein/creatinine ratio, renal ultrasound (2) CKD (chronic kidney disease) stage 4, GFR 15-29 ml/min Current Visit: Yes Status: Acute Workup to include: PTH, C3 & C4 complements, Vit D 25-OH, ASHLEIGH, SPEP, UPEP, HIV , syphillis, Hepatitis panel see above Patient was scheduled to see Dr Womack later this week-will need to f/u after discharge. (3) Hydronephrosis Current Visit: Yes Status: Acute Urology performing a cystoscopy and right ureteral stent placement today per urology team Qualifiers: Hydronephrosis type: unspecified Qualified Code(s): N13.30 - Unspecified hydronephrosis (4) Neurogenic bladder Current Visit: Yes Status: Acute per urology team (5) Healing wound present on both lower extremities Current Visit: Yes Status: Acute per primary team History of Present Illness - Reason for Consult Consult date: 06/16/17 - Chief Complaint ROBERT, CKD stage 4, wounds bilat heels - History of Present Illness Mr. Hernandez is a 52 year old male with a past medical history of CKD stage 4, uncontrolled DM2 on insulin, HTN, history of multiple scrotal infections, neurogenic bladder, and hx of diabetic foot ulcers. Patient arrived to the emergency room today with chief complaint of right sided flank pain that has been going on for about 3 days along with about 8 episodes of nausea with vomiting, and subjective fevers and chills. Patient states that he has been self cathing for multiple years and could not tell me what led to this. He was homeless for approximately a month but now resides with his sister. No family history of kidney problems; denies frequent NSAID use. Patient states a few years ago he had to have dialysis at [facility] for a total of two treatments only. He has not seen a wet plant operator for several years and was supposed to see Dr. Womack as outpatient later this week. Past Med Surg Social Fam HX - Past Medical History Medical history: diabetes, hypertension, renal disease Psychiatric history: anxiety - Past Surgical History Surgical History: cholecystectomy - Social History Smoking Status: Never smoker Smokeless Tobacco Status: No Alcohol use: none Drug use: none - Family History Mother Living Status: Hx Family Cardiac Disorders: Yes Hx Family Respiratory Disorders: Yes Hx Family Endocrine Disorder: Yes Father Living Status: Hx Family Cardiac Disorders: Yes Hx Family Cancer: Yes Hx Family Endocrine Disorder: Yes Medications and Allergies Aspirin Enteric Coated [Aspirin EC] 81 mg PO DAILY 06/15/17 [History] Insulin ASPART [Novolog Flexpen] 10 units SQ BID 06/15/17 [History] Insulin ASPART [Novolog Flexpen] 15 units SQ 1200 06/15/17 [History] Insulin Glargine,Hum.rec.anlog [Lantus Solostar] 60 units SQ HS 06/15/17 [ History] Lisinopril [Zestril] 10 mg PO DAILY 06/15/17 [History] 3 Allergy/AdvReac Type Severity Reaction Status Date / Time No Known Allergies Allergy Verified 06/15/17 05:31 Review of Systems All Systems: reviewed and no additional remarkable complaints except as stated Constitutional: chills, fever(s), malaise, no anorexia Cardiovascular: edema, no dyspnea Respiratory: no cough Gastrointestinal: abdominal pain, diarrhea, nausea, vomiting Neurological: no behavioral changes Exam - Vital Signs Vital signs: Initial Vital Signs Temp Pulse Resp BP Pulse Ox 97.7 F 89 20 198/118 100 06/15/17 05:33 06/15/17 05:33 06/15/17 05:33 06/15/17 05:33 06/15/17 05:33 Vital Signs - Last 8 Hours Temp Pulse Resp BP Pulse Ox 06/16/17 07:24 98.3 F 81 18 119/72 96 06/16/17 03:52 97.4 F L 78 16 114/58 98 Intake and Output 06/15/17 06/16/17 06/16/17 23:59 07:59 15:59 Other: Weight 108.953 kg Blood Glucose* 185 165 Patient Weight 06/16/17 23:59 Weight 108.953 kg - General Appearance General appearance: well-developed, well-nourished, obese EENT: ATNC, mucous membranes moist, hearing intact, vision intact Neck: no carotid bruit, supple Respiratory: rhonchi (upper lobes) Cardiology: edema (bilat lower legs; BLL and feet wrapped in dressings), normal S1, normal S2 Gastrointestinal: no tenderness, no guarding, obese Integumentary: warm and dry Neurologic: alert and oriented x3 Psychiatric: mood/affect appropriate, cooperative Results - Lab Results 06/16/17 05:02 06/16/17 05:02 Most recent lab results Calcium 7.9 mg/dL (8.6-10.3) L 06/16/17 05:02 Urine Creatinine 86 mg/dL 06/15/17 13:03 Urine Sodium 73.3 mEq/L 06/15/17 13:03 Consult Discharge Plan - Plan Referrals: Miya Aden DO [Primary Care Provider] -
[2017-06-16] MEDS ORDERED: cefTRIAXone 2,000 MG in Water for inj. (sterile) 20 ML 20 ML IVP SCH (09:00)
[2017-06-16] MEDS ORDERED: Aspirin Enteric Coated 81 MG Tablet PO SCH (09:00)
[2017-06-16] MEDS: amLODIPine 5 MG TABLET PO SCH (09:08)
[2017-06-16] MEDS: Insulin LISPRO 300 UNITS/3 ML VIAL SQ SCH ×3 (09:09→22:03)
[2017-06-16 10:58] LABS: Albumin 2.8 g/dL (3.5-5.7); Albumin/Globulin Ratio 0.6 (1.1-2.2); Bilirubin,Indirect 0.3 mg/dL (0.0-1.2); Bilirubin,Total 0.3 mg/dL (0.3-1.0); Globulin 4.4 g/dL (2.4-3.5); Total Protein 7.2 g/dL (6.4-8.9); Uric Acid 6.7 mg/dL (2.3-7.6)
--- NOTE | 2017-06-16 11:29 | Anesthesia Evaluation PreOp ---
Date of Encounter: 06/16/17 Time of Encounter: 11:26 - Past History Planned Operation: cysto with right stent Cardiac History: HTN Pulmonary History: Denies Any Significant HX LOCKSMITH History: Other (neurogenic bladder) Other Medical History: Renal (CKD stage 4, no dialysis), Diabetes Type II ( poorly controlled) Anesthesia History: No Prior Anesthetic Complications, Past Anesthesia (domenico) Alcohol Use: none Drug use: none Medications and Allergies Aspirin Enteric Coated [Aspirin EC] 81 mg PO DAILY 06/15/17 [History] Insulin ASPART [Novolog Flexpen] 10 units SQ BID 06/15/17 [History] Insulin ASPART [Novolog Flexpen] 15 units SQ 1200 06/15/17 [History] Insulin Glargine,Hum.rec.anlog [Lantus Solostar] 60 units SQ HS 06/15/17 [ History] Lisinopril [Zestril] 10 mg PO DAILY 06/15/17 [History] 3 Allergy/AdvReac Type Severity Reaction Status Date / Time No Known Allergies Allergy Verified 06/15/17 05:31 - Meds/Allergy Pre-op Review Medications Reviewed: Yes Allergies Reviewed: Yes Beta Blockers on Current Med List: No Anesthesia Results - Labs 06/16/17 05:02 06/16/17 05:02 Laboratory Tests 06/01/17 06/16/17 06/16/17 14:39 05:02 05:02 Hgb 10.8 L Hct 33.1 L Plt Count 319 Sodium 132 L Potassium 5.2 H BUN 68 H Creatinine 4.99 H Hemoglobin A1c 11.6 H Albumin 06/16/17 09:20 Hgb Hct Plt Count Sodium Potassium BUN Creatinine Hemoglobin A1c Albumin 2.8 L Anesthesia Exam Selected Entries 06/16/17 11:02 Temperature 98.7 F Pulse Rate 94 Respiratory Rate 20 Blood Pressure 87/58 O2 Sat by Pulse Oximetry 94 Weight: 109kg BMI 35 NPO (# of Hours): 8 - HEENT Pupil (Motor): EOMI Mallampati: III Teeth: Poor dentition Oral Opening: Greater than 3 - LOCKSMITH LOC: Oriented LOCKSMITH Motor: Normal RUE, Normal LUE, Normal RLE, Normal LLE, Normal Face LOCKSMITH Sensory: Normal: RUE, LUE, RLE, LLE, Face - Cardiac Rhythm: Regular Murmur: None - Pulmonary Breath Sounds: bilateral Clear Respiratory Effort: Symmetrical Anesthesia Assess/Plan ASA Score: 3 Modified Tori Scale for Level of Consciousness: Cooperative, oriented, and tranquil Anesthetic Plan: General Monitoring Plan: Standard Monitors Recovery Plan: PACU (agrees to GA)
[2017-06-16] MEDS ORDERED: *HR* Propofol 200 MG/20 ML VIAL IVP ONE (11:34)
[2017-06-16] MEDS ORDERED: *HR* Midazolam HCl 2 MG/2 ML VIAL ONE (11:34)
[2017-06-16] MEDS ORDERED: Lidocaine -MPF 2% 2 ML VIAL ONE (11:34)
[2017-06-16] MEDS ORDERED: *HR* FentaNYL (PF) 100 MCG/2 ML VIAL ONE (11:34)
[2017-06-16] MEDS ORDERED: Isovue-300 50 ML VIAL IVP ONE (11:37)
[2017-06-16] MEDS ORDERED: Ondansetron 4 MG/2 ML VIAL ONE (12:02)
[2017-06-16] MEDS ORDERED: Dexamethasone 4 MG/ML VIAL ONE (12:02)
[2017-06-16] MEDS ORDERED: EPHEDrine 50 MG/ML VIAL ONE (12:04)
[2017-06-16] MEDS ORDERED: Acetaminophen IV 1,000 MG/100 ML INFUS..BTL IVPB ONE (12:06)
[2017-06-16] MEDS ORDERED: Ondansetron 4 MG/2 ML VIAL IVP ONE (12:06)
[2017-06-16] MEDS ORDERED: MORPHINE SUL Oral CONC 10 MG/0.5 ML ORAL.SYG SL PRN (12:06)
[2017-06-16] MEDS ORDERED: *HR* Promethazine 25 MG/ML VIAL IVP PRN (12:06)
[2017-06-16] MEDS ORDERED: *HR* OxyCODONE Immed Rel 5 MG TABLET PO PRN (12:06)
--- NOTE | 2017-06-16 12:36 | Operative Note ---
Date of procedure: 06/16/17 Pre-op diagnosis: Right hydronephrosis with UTI Post-op diagnosis: same Procedure: Cystoscopy, right retrograde pyelogram, right ureteral stent placement. Implants: 6 Estonian x 26cm JJ stent. Complications: None. Anesthesia: SHWETHAA Surgeon: Luke Peraza Was there an licensed investment sales assistant present: No Estimated blood loss (cc): 1 Specimen: Right renal aspirate Condition: stable Disposition: PACU Procedure in Detail: Indications: Mr. Hernandez is a 52-year-old male who has a history of DM and right flank pain. He had a CT which showed right hydronephrosis. He elected to undergo a cystoscopy and right ureteral stent placement with possible right ureteroscopy. He was aware of the risks of the procedure including but not limited to bleeding, infection, injury to other structures, need for further procedures, stent irritation, need for nephrostomy tube, need for open repair, risks otherwise unforeseen, and the risk of anesthesia. He is willing to proceed. Procedure in Detail: After informed consent was obtained the patient was brought back to the operating room and placed in supine position. A time out was performed. General anesthesia was administered and an LMA was placed. He was then placed in the lithotomy position. He was prepped and draped in the usual sterile fashion. Cystoscopy was performed. The penis had severe phimosis. The 17-Estonian scope was able to enter the urethra. The anterior urethra showed wide caliber urethral strictures. I was concerned that the 17-Estonian scope would not fit. I then passed a wire through the scope into the bladder under fluoroscopic guidance. The scope was removed. The semirigid ureteroscope was then passed down the urethra into the bladder. The ureteral orifices were in the normal orthotopic position. There was some debris along the floor of the bladder. The Zip wire was placed in the right ureteral orifice. The wire was then brought up into the kidney under fluoroscopic guidance. I then passed the open-ended catheter into the kidney. An aspirate removed significantly infected urine which was quite cloudy and purulent. The wire was replaced. A 6 Estonian by 26cm JJ stent was then placed. The dangle strings were removed. I then passed a 16-Estonian Gaitan catheter over the wire into his bladder. 10 mL was instilled into the balloon. The catheter was left to drainage. The patient was then awakened from general anesthesia and brought to recovery room in good condition. All sponge, needle, and instrument counts were correct.
--- NOTE | 2017-06-16 12:59 | Anesthesia Evaluation Post Op ---
Date of Encounter: 06/16/17 Time of Encounter: 12:59 - Vital Signs Vital Signs: Vital Signs/O2 Sat/Glucose, Most Current Temp Pulse Resp BP Pulse Ox 06/16/17 11:02 98.7 F 94 20 87/58 94 - Lungs Lungs: Clear Ascult./Percussion - Airway Airway: Non-obstructed - Cardiovascular Regular Rate, Baseline Rhythm - Mental Status Mental Status: Alert & Oriented, Answers Appropriately, Baseline Status - Pain Pain Scale: 3 Pain Scale used: Numeric (1 - 10) - Nausea Vomiting Nausea Vomiting: Not Present - Hydration Hydration: Tolerates oral liquids, Able to void - Discharge PostOp Status: Transfer Patient to floor
[2017-06-16] MEDS ORDERED: Dextrose Gel 15 GM/37.5 ML TUBE PO PRN ×2 (13:14)
[2017-06-16] MEDS ORDERED: *HR* Dextrose 50 % in Water (Syg) 50 ML SYRINGE IVP PRN (13:14)
[2017-06-16] MEDS ORDERED: Acetaminophen 325 MG TABLET PO PRN (13:14)
[2017-06-16] MEDS ORDERED: Ondansetron 4 MG/2 ML VIAL IVP PRN (13:14)
[2017-06-16] MEDS ORDERED: Naloxone 0.4 MG/ML INJ IVP PRN (13:14)
[2017-06-16] MEDS ORDERED: D5% in Water 1,000 ML IVC PRN (13:14)
--- NOTE | 2017-06-16 16:12 | Internal Med Progress Note ---
Date of Encounter: 06/16/17 Time of Encounter: 14:00 - Assessment and plan (1) Acute kidney injury superimposed on chronic kidney disease Current Visit: Yes Status: Acute Assessment and plan: Acute renal failure worsening today. Appreciate nephrology input. Appreciate urology input. Expect improvement in creatinine after stent placement. Avoid nephrotoxins. Obtain kidney ultrasound in the morning. Monitor kidney function. (2) Diabetes Current Visit: Yes Status: Acute Assessment and plan: Insulin sliding scale. Diabetic diet. Qualifiers: Diabetes mellitus type: type 2 Diabetes mellitus complication status: with kidney complications Diabetes mellitus complication detail: with chronic kidney disease Diabetes mellitus terminal press operator insulin use: with custodial use Chronic kidney disease stage: unspecified stage Qualified Code(s): E11.22 - Type 2 diabetes mellitus with diabetic chronic kidney disease; Z79.4 - [facility] (current) use of insulin; Z79.4 - [facility] (current) use of insulin; Z79.4 - terminal press operator (current) use of insulin; Z79.4 - terminal press operator (current) use of insulin (3) Healing wound present on both lower extremities Current Visit: Yes Status: Acute Assessment and plan: Continue wound care per outpatient regimen. Resume home health on discharge. (4) Hydronephrosis Current Visit: Yes Status: Acute Assessment and plan: Appreciate urology input. Patient had cystoscopy with right ureteral stent placement done today. Qualifiers: Hydronephrosis type: unspecified Qualified Code(s): N13.30 - Unspecified hydronephrosis (5) Pyelonephritis Current Visit: Yes Status: Acute Assessment and plan: Follow-up urine culture. Continue with ceftriaxone. If cultures remain negative consider short course of IV and discontinuing antibiotics. (6) Right flank pain Current Visit: Yes Status: Acute Assessment and plan: Tylenol and oxycodone for pain. - Subjective Interval history: Patient presented to the hospital yesterday for severe dull aching right sided Flank pain. Patient is currently evaluated after cystoscopy with stent placement, states that right flank pain starting to come back, currently mild. Denies fever and associated dysuria. - Constitutional Vitals: Temp Pulse Resp BP Pulse Ox 98.2 F 94 20 120/78 92 06/16/17 15:38 06/16/17 15:38 06/16/17 15:38 06/16/17 15:38 06/16/17 15:38 - Respiratory Respiratory exam: Present: CTAB. Absent: accessory muscle use, rales, rhonchi, wheezes - Cardiovascular Cardiovascular exam: Present: RRR, +S1, +S2. Absent: diastolic murmur, gallop, rubs, systolic murmur - GI/Abdominal GI/Abdominal exam: Present: normal bowel sounds, soft, no peritoneal signs. Absent: distended, tenderness - Skin Skin exam: Present: dry, intact Internal Medicine: Result - Labs CBC & Chem 7: 06/16/17 05:02 06/16/17 05:02 Labs: Short CBC 06/16/17 Range/Units 05:02 WBC 16.5 H (4.3-11.1) K/mcL Hgb 10.8 L (12.9-16.9) g/dL Hct 33.1 L (37.5-50.1) % Plt Count 319 (140-400) K/mcL Neutrophils # 13.1 H (1.6-8.9) K/mcL BMP 06/16/17 05:02 Sodium 132 L Potassium 5.2 H Chloride 105 Carbon Dioxide 19 L BUN 68 H Creatinine 4.99 H Glucose 172 H Calcium 7.9 L Liver Function 06/16/17 Range/Units 09:20 Total Bilirubin 0.3 (0.3-1.0) mg/dL Direct Bilirubin 0.0 (0.0-0.2) mg/dL AST 27 (13-39) Units/L ALT 19 (7-52) Units/L Alkaline Phosphatase 129 H (34-104) Units/L Albumin 2.8 L (3.5-5.7) g/dL - Impressions Impressions Retrograde Pyelogram 06/16/17 00:00 IMPRESSION: Intraprocedural fluoroscopic spot images as above. See separate procedure report for more information. D/ / Pietro Gaona MD / Pietro Gaona MD Interpreting Provider: Pierto Gaona MD Consult Discharge Plan - Plan Referrals: Miya Aden, [Primary Care Provider] -
[2017-06-16 16:18] LABS: Hepatitis B Surface Antigen Nonreactive (Nonreactive)
[2017-06-16] MEDS ORDERED: Insulin DETEMIR 100 UNIT/ML X5UNITS SQ SCH (21:00)
[2017-06-17 02:17] LABS: HIV-1&2 Antibody & p24 Ag Nonreactive (Nonreactive); Hepatitis B Surface Antibody 0.71 mIU/mL
[2017-06-17 03:41] LABS: Protein/Creatinine Ratio,Urine 6.24 mg/mg (0.00-0.20); Sodium, Urine 47.4 mEq/L
[2017-06-17] MEDS: *HR* Heparin 5,000 UNIT/ML VIAL SQ SCH ×2 (04:51→18:36)
[2017-06-17] MEDS: *HR* OxyCODONE Immed Rel 5 MG TABLET PO PRN ×3 (04:51→22:10)
[2017-06-17 05:51] LABS: Basophils % 0.1 %; Hematocrit 30.4 % (37.5-50.1); Hemoglobin 9.8 g/dL (12.9-16.9); Immature Granulocytes % 0.6 % (0-4); Lymphocytes # 1.1 K/mcL (0.6-4.6); Lymphocytes % 7.4 %; Mean Corpuscular HGB Conc 32.2 g/dL (31.6-35.5); Mean Corpuscular Hemoglobin 27.1 pg (28.0-33.3); Mean Platelet Volume 9.1 fL (9.4-12.4); Monocytes # 0.7 K/mcL (0.0-1.3); Monocytes % 4.9 %; Neutrophils # 12.5 K/mcL (1.6-8.9); Platelet Count 330 K/mcL (140-400); Red Blood Count 3.62 M/mcL (4.19-5.50); Red Cell Distribution Width 13.4 % (11.5-14.5)
[2017-06-17 05:53] LABS: INR 1.2; Prothrombin Time 13.4 Seconds (9.4-12.1)
[2017-06-17] MEDS ORDERED: 0.9 % Sodium Chloride 250 ML IVC PRN (07:20)
--- NOTE | 2017-06-17 07:28 | Nephrology Progress Note ---
Date of Encounter: 06/17/17 Time of Encounter: 08:15 - Assessment and Plan (1) ESRD (end stage renal disease) Current Visit: Yes Status: Acute Hx of CKD stage IV and he appears to have progressed to ESRD vs ROBERT on CKD stage IV Appreciate Urology for the care re: unilateral hydronephrosis Since he has continued to worsen despite conservative renal measures, I recommend placement of a Permacath since his baseline renal function was very advanced pre-existing to his hospitalization (of note, having very advanced CKD reduces the odds of renal recovery, so I recommend going straight to a Permacath instead of a temporary HD catheter). Will have him undergo HD back to back for 3 days. Thank you. (2) Hyponatremia Current Visit: Yes Status: Acute (3) Hydronephrosis Current Visit: Yes Status: Acute Qualifiers: Hydronephrosis type: unspecified Qualified Code(s): N13.30 - Unspecified hydronephrosis (4) Hypertension Current Visit: Yes Status: Acute Qualifiers: Hypertension type: unspecified Qualified Code(s): I10 - Essential (primary ) hypertension Subjective Principal diagnosis: Renal dysfunction Interval history: Pt was s/e and did not affirm cramping or CP. He has a carrera catheter still in place without F/C or burning. We discussed his labs including Na and the nursing clerk also helped explain his labs. The pt voiced consent to proceed with HD and the Permacath placement. Objective - Vital Signs Vital signs: Vital Signs Temp Pulse Resp BP Pulse Ox 06/17/17 06:56 98.0 F 90 18 119/69 95 06/17/17 05:16 97.1 F L 89 16 130/77 92 06/17/17 00:54 97.1 F L 89 16 105/56 92 06/16/17 21:13 98.1 F 100 16 107/71 93 06/16/17 15:38 98.2 F 94 20 120/78 92 06/16/17 14:29 98 F 98 16 125/83 91 06/16/17 13:42 100 149/99 94 06/16/17 13:25 98 F 103 16 150/84 98 06/16/17 13:10 97.5 F L 108 16 131/99 96 06/16/17 13:00 106 16 121/85 95 06/16/17 12:50 106 16 99/70 95 03/06/18 12:40 100.3 F H 106 14 96/78 97 06/16/17 11:02 98.7 F 94 20 87/58 94 Intake and Output 06/16/17 06/16/17 06/17/17 15:59 23:59 07:59 Intake Total 0 / 0 240 / 240 Output Total 1000 / 1000 Balance -1 / -1 240 / 240 -1000 / -1000 Intake: Oral 0 / 0 240 / 240 Output: Urine 1000 / 1000 Estimated Blood Loss Other: Meal npo Dinner Percent of Meal Consumed 0% 100% Weight 109.8 kg Blood Glucose* 221 376 266 Patient Weight 06/17/17 23:59 Weight 109.8 kg - General Appearance General appearance: Present: well-developed, well-nourished, appears started age , obese EENT: Present: ATNC, PERRL, mucous membranes moist Neck: Present: supple Respiratory: Present: clear Cardiology: Present: edema (trace pedal edema), regular rate, regular rhythm, normal S1, normal S2 Gastrointestinal: Present: normoactive bowel sounds, no tenderness, no guarding , obese Integumentary: Present: warm and dry Neurologic: Present: no focal deficit, no asterixis, alert and oriented x3 Musculoskeletal: Present: no deformities, no erythema, no cyanosis Psychiatric: Present: mood/affect appropriate, cooperative - Lab 06/17/17 05:30 06/17/17 05:30 Most recent lab results Calcium 8.0 mg/dL (8.6-10.3) L 06/17/17 05:30 Urine Creatinine 62 mg/dL 06/17/17 01:20 Urine Sodium 47.4 mEq/L 06/17/17 01:20 Urine Total Protein 387 mg/dL (1-14) H 06/17/17 01:20 - Imaging Kidney/bladder ultrasound: image reviewed Consult Discharge Plan - Plan Referrals: Miya Aden DO [Primary Care Provider] -
[2017-06-17] MEDS ORDERED: ceFAZolin 2,000 MG in Water for inj. (sterile) 20 ML 20 ML IVP ONE (07:56)
[2017-06-17] MEDS ORDERED: *HR* Midazolam HCl 2 MG/2 ML VIAL IVP ONE (07:56)
[2017-06-17] MEDS ORDERED: *HR* FentaNYL (PF) 100 MCG/2 ML VIAL IVP ONE (07:57)
[2017-06-17] MEDS ORDERED: Heparin 1,000 UNITS/500 mL 500 ML ONE (08:02)
[2017-06-17] MEDS ORDERED: 0.9 % Sodium Chloride 500 ML ONE (08:29)
[2017-06-17] MEDS ORDERED: *HR* Heparin 5,000 UNIT/ML VIAL ONE (08:40)
[2017-06-17] MEDS ORDERED: CeFAZolin Premix DUPLEX 2,000 MG/50 ML BAG IVPB ONE ×2 (09:00)
--- NOTE | 2017-06-17 09:04 | Pre-Sedation Evaluation ---
Pre-sedation evaluation - Pre-sedation checklist Date of procedure: 06/17/17 Procedure: permcath insertion Recent Vitals: Last Vital Signs Temp 98.0 F 06/17/17 06:56 Pulse 101 06/17/17 08:58 Resp 14 06/17/17 08:58 BP 139/91 06/17/17 08:58 Pulse Ox 97 06/17/17 08:58 H&P (including ROS) documented in medical record: Yes Previous reaction to sedatives/anesthetics: No Dietary Status: NPO after Midnight Dentition: No loose teeth or bridges ASA Classification *see protocol: CLASS II-Mild systemic disease Plan of Care: Pt appropriate candidate for procedure/moderate/conscious sedation , Risks/benefits of procedure/sedation discussed w/ patient/family
--- NOTE | 2017-06-17 09:06 | IR Procedure Note ---
Date of procedure: 06/17/17 Consent Obtained: Written consent Timeout: Correct patient and procedure verified, Correct site verified, Time out performed, Skin prep completed Local anesthetic: Lidocaine 1% Indications: CRF Procedure Performed: Permacath placement Was there an collections assistant present: No Results/Findings: RIJ 14F 28 cm Víctor-split TDC placement Estimated blood loss (cc): 0 Complications: None; Tolerated procedure well (Monitor on floor) Specimen: None
[2017-06-17] MEDS: Insulin LISPRO 300 UNITS/3 ML VIAL SQ SCH ×4 (10:27→22:10)
[2017-06-17] MEDS: Aspirin Enteric Coated 81 MG Tablet PO SCH (10:49)
[2017-06-17] MEDS ORDERED: *HR* Heparin 10,000 UNIT/10 ML VIAL IV PRN (11:47)
[2017-06-17] MEDS ORDERED: 0.9 % Sodium Chloride 2,000 ML ONE (11:51)
--- NOTE | 2017-06-17 12:10 | Urology Progress Note ---
Date of Encounter: 06/17/17 Time of Encounter: 12:08 - Assessment and Plan (1) Neurogenic bladder Current Visit: Yes Status: Acute Assessment and plan: Gaitan catheter in place. Will continue for now. (2) Hydronephrosis Current Visit: Yes Status: Acute Assessment and plan: s/p right ureteral stent placement. Creatinine has worsened. Anticipate starting hemodialysis. Will see how creatinine and urine output looks over time. Qualifiers: Hydronephrosis type: unspecified Qualified Code(s): N13.30 - Unspecified hydronephrosis (3) Pyelonephritis Current Visit: Yes Status: Acute Assessment and plan: Urine culture from renal aspirate is pending. Urine was grossly purulent with aspiration. Continue ceftriaxone. Await final culture results. Progress Note Narrative: s/p right ureteral stent placement. Urine is clear today. Creatinine is worse. He says his right flank pain is better. Objective Initial Vital Signs Temp Pulse Resp BP Pulse Ox 97.7 F 89 20 198/118 100 06/15/17 05:33 06/15/17 05:33 06/15/17 05:33 06/15/17 05:33 06/15/17 05:33 - General physical appearance Present: well developed, well nourished, no distress - Respiratory Present: normal respiratory effort - Abdomen Present: soft - Genitourinary Urine Appearance: Present: Clear - Labs 06/17/17 05:30 06/17/17 05:30 Diabetes panel 06/17/17 Range/Units 05:30 Sodium 132 L (136-145) mEq/L Potassium 5.0 (3.5-5.1) mEq/L Chloride 100 (98-107) mEq/L Carbon Dioxide 20 L (23-29) mEq/L BUN 78 H (6-20) mg/dL Creatinine 5.84 H (0.70-1.30) mg/dL Glucose 300 H (70-105) mg/dL Calcium 8.0 L (8.6-10.3) mg/dL Calcium panel 06/17/17 Range/Units 05:30 Calcium 8.0 L (8.6-10.3) mg/dL Pituitary panel 06/17/17 Range/Units 05:30 Sodium 132 L (136-145) mEq/L Potassium 5.0 (3.5-5.1) mEq/L Chloride 100 (98-107) mEq/L Carbon Dioxide 20 L (23-29) mEq/L BUN 78 H (6-20) mg/dL Creatinine 5.84 H (0.70-1.30) mg/dL Glucose 300 H (70-105) mg/dL Calcium 8.0 L (8.6-10.3) mg/dL Adrenal panel 06/17/17 Range/Units 05:30 Sodium 132 L (136-145) mEq/L Potassium 5.0 (3.5-5.1) mEq/L Chloride 100 (98-107) mEq/L Carbon Dioxide 20 L (23-29) mEq/L BUN 78 H (6-20) mg/dL Creatinine 5.84 H (0.70-1.30) mg/dL Glucose 300 H (70-105) mg/dL Calcium 8.0 L (8.6-10.3) mg/dL Consult Discharge Plan - Plan Referrals: Miya Aden DO [Primary Care Provider] -
[2017-06-17] MEDS: amLODIPine 5 MG TABLET PO SCH (18:34)
[2017-06-17] MEDS: cefTRIAXone 2,000 MG in Water for inj. (sterile) 20 ML 20 ML IVP SCH (18:35)
[2017-06-17] MEDS: Insulin DETEMIR 100 UNIT/ML X5UNITS SQ SCH (22:10)
--- NOTE | 2017-06-17 22:44 | Internal Med Progress Note ---
Date of Encounter: 06/17/17 Time of Encounter: 09:50 - Assessment and plan (1) Hydronephrosis Current Visit: Yes Status: Acute Assessment and plan: CT abdomen/pelvis showed right-sided hydronephrosis without ureteral or bladder calculus. He was noted to have worsening renal function. Urology is on board, patient received right ureteral stent placement. Continue current management. Qualifiers: Hydronephrosis type: unspecified Qualified Code(s): N13.30 - Unspecified hydronephrosis (2) Pyelonephritis Current Visit: Yes Status: Acute Assessment and plan: Presented with leukocytosis and tachycardia, possible pyelonephritis; urine culture from renal aspiration has been sent by Urology from OR; f/up results; initial blood and urine cultures negative; continue IV Rocephin; (3) Sepsis Current Visit: Yes Status: Acute Assessment and plan: plan as above; Qualifiers: Sepsis type: sepsis due to unspecified organism Qualified Code(s): A41.9 - Sepsis, unspecified organism (4) Anxiety Current Visit: Yes Status: Chronic (5) Acute kidney injury superimposed on chronic kidney disease Current Visit: Yes Status: Acute Assessment and plan: Nephrology on board. Patient is noted to have worsening serum creatinine, possibly worsening diabetic nephropathy. Plan to initiate hemodialysis, received PermCath placement today. (6) CKD (chronic kidney disease) stage 4, GFR 15-29 ml/min Current Visit: Yes Status: Chronic (7) Diabetes Current Visit: Yes Status: Chronic Assessment and plan: Noted to have uncontrolled diabetes. Hemoglobin A1c 11.6% in May 2017. Blood sugars noted to be elevated. Increase basal and sliding scale insulin. Continue Accu-Chek blood glucose monitoring. Diabetic diet. Qualifiers: Diabetes mellitus type: type 2 Diabetes mellitus complication status: with kidney complications Diabetes mellitus complication detail: with chronic kidney disease Diabetes mellitus intermediate insulin use: with joint terminal attack controller use Chronic kidney disease stage: unspecified stage Qualified Code(s): E11.22 - Type 2 diabetes mellitus with diabetic chronic kidney disease; Z79.4 - [facility] (current) use of insulin; Z79.4 - extermination inspector (current) use of insulin; Z79.4 - extermination inspector (current) use of insulin; Z79.4 - [facility] (current) use of insulin (8) Hypertension Current Visit: Yes Status: Chronic Qualifiers: Hypertension type: essential hypertension Qualified Code(s): I10 - Essential (primary) hypertension (9) Neurogenic bladder Current Visit: Yes Status: Chronic Assessment and plan: Likely due to diabetic autonomic neuropathy. Urology recommendations-continue Gaitan catheter for now. (10) Chronic venous hypertension (idiopathic) with ulcer and inflammation of bilateral lower extremity Current Visit: Yes Status: Chronic - Subjective Interval history: Feels better; reports persistent fatigue, weakness, mild right flank pain; nausea reported; no vomiting, abdominal pain, fever/chills; received permcath placement; - Constitutional Vitals: Temp Pulse Resp BP Pulse Ox 98.1 F 84 16 127/78 95 06/17/17 20:52 06/17/17 20:52 06/17/17 20:52 06/17/17 20:52 06/17/17 20:52 General appearance: Present: A&O X 3, answers questions appropriately - Respiratory Respiratory exam: Present: CTAB. Absent: accessory muscle use, rales, rhonchi, wheezes - Cardiovascular Cardiovascular exam: Present: RRR, +S1, +S2. Absent: diastolic murmur, gallop, rubs, systolic murmur - GI/Abdominal GI/Abdominal exam: Present: normal bowel sounds, soft, no peritoneal signs. Absent: distended, tenderness - Extremities Exam Extremities exam: Present: full ROM, pedal edema, warm, radial pulses palpable and symmetrical. Absent: calf tenderness, cyanotic - Neurological Exam Neurological exam: Present: CN II-XII intact, oriented X3, no focal deficits. Absent: pronater drift, facial droop, speech deficit - Skin Skin exam: Present: dry, intact Internal Medicine: Result - Labs CBC & Chem 7: 06/18/17 04:25 06/18/17 04:25 Labs: Short CBC 06/17/17 Range/Units 05:30 WBC 14.4 H (4.3-11.1) K/mcL Hgb 9.8 L (12.9-16.9) g/dL Hct 30.4 L (37.5-50.1) % Plt Count 330 (140-400) K/mcL Neutrophils # 12.5 H (1.6-8.9) K/mcL BMP 06/17/17 05:30 Sodium 132 L Potassium 5.0 Chloride 100 Carbon Dioxide 20 L BUN 78 H Creatinine 5.84 H Glucose 300 H Calcium 8.0 L - ABG Interpretation ABG results: PT/INR, D-dimer PT 13.4 Seconds (9.4-12.1) H 06/17/17 05:30 - Impressions Impressions Guidance Needle Placement Ultrasound 06/17/17 00:00 IMPRESSION: 1. Right internal jugular vein tunneled dialysis catheter placement as discussed above. D/ / Danie Calderon MD / Danie Calderon MD Interpreting Provider: Danie Calderon MD Insertion Tunneled Catheter 06/17/17 00:00 IMPRESSION: 1. Right internal jugular vein tunneled dialysis catheter placement as discussed above. D/ / Danie Calderon MD / Danie Calderon MD Interpreting Provider: Danie Calderon MD Retroperitoneum Ultrasound 06/17/17 14:30 IMPRESSION: 1. Unremarkable renal ultrasound with no evidence for hydronephrosis. 2. Decompressed bladder secondary to a Gaitan catheter. D/ / Danie Calderon MD / Danie Calderon MD Interpreting Provider: Danie Calderon MD Consult Discharge Plan - Plan Referrals: Miya Aden DO [Primary Care Provider] -
[2017-06-18 04:52] LABS: Basophils % 0.2 %; Eosinophils # 0.1 K/mcL (0.0-0.6); Eosinophils % 1.1 %; Hematocrit 29.7 % (37.5-50.1); Hemoglobin 9.6 g/dL (12.9-16.9); Immature Granulocytes % 0.5 % (0-4); Lymphocytes # 1.9 K/mcL (0.6-4.6); Lymphocytes % 18.3 %; Mean Corpuscular HGB Conc 32.3 g/dL (31.6-35.5); Mean Corpuscular Volume 83.4 fL (83.0-100.0); Mean Platelet Volume 9.1 fL (9.4-12.4); Monocytes # 0.8 K/mcL (0.0-1.3); Monocytes % 7.9 %; Neutrophils # 7.5 K/mcL (1.6-8.9); Platelet Count 337 K/mcL (140-400); Red Blood Count 3.56 M/mcL (4.19-5.50); Red Cell Distribution Width 13.4 % (11.5-14.5)
[2017-06-18 05:09] LABS: Calcium 7.9 mg/dL (8.6-10.3); Potassium 3.9 mEq/L (3.5-5.1)
[2017-06-18] MEDS: *HR* OxyCODONE Immed Rel 5 MG TABLET PO PRN (05:17)
[2017-06-18] MEDS: *HR* Heparin 5,000 UNIT/ML VIAL SQ SCH ×2 (05:18→17:58)
[2017-06-18] MEDS ORDERED: 0.9 % Sodium Chloride 250 ML IVC PRN (07:18)
--- NOTE | 2017-06-18 07:20 | Urology Progress Note ---
Date of Encounter: 06/18/17 Time of Encounter: 07:18 - Assessment and Plan (1) Neurogenic bladder Current Visit: Yes Status: Acute Assessment and plan: Continue Gaitan catheter through hospital stay. Await improvement in renal function as possible. (2) Hydronephrosis Current Visit: Yes Status: Acute Assessment and plan: Status post right ureteral stent placement. We will continue stent for now. Qualifiers: Hydronephrosis type: unspecified Qualified Code(s): N13.30 - Unspecified hydronephrosis (3) Pyelonephritis Current Visit: Yes Status: Acute Assessment and plan: I called the microbiology lab today and there were issues with the urine culture which was obtained from the OR. They will try to set it up today for culture. We will see what grows out. Progress Note Narrative: POD #2 s/p right ureteral stent placement and Gaitan placement. He is doing well. Objective Initial Vital Signs Temp Pulse Resp BP Pulse Ox 97.7 F 89 20 198/118 100 06/15/17 05:33 06/15/17 05:33 06/15/17 05:33 06/15/17 05:33 06/15/17 05:33 - General physical appearance Present: well developed, well nourished, no distress - Respiratory Present: normal respiratory effort - Abdomen Present: soft - Genitourinary Urine Appearance: Present: Clear - Labs 06/18/17 04:25 06/18/17 04:25 Diabetes panel 06/18/17 Range/Units 04:25 Sodium 135 L (136-145) mEq/L Potassium 3.9 (3.5-5.1) mEq/L Chloride 97 L (98-107) mEq/L Carbon Dioxide 27 (23-29) mEq/L BUN 56 H (6-20) mg/dL Creatinine 4.82 H (0.70-1.30) mg/dL Glucose 162 H (70-105) mg/dL Calcium 7.9 L (8.6-10.3) mg/dL Calcium panel 06/16/17 06/18/17 Range/Units 09:20 04:25 Calcium 7.9 L (8.6-10.3) mg/dL 25-OH Vitamin D Total 11 L (30-80) ng/mL Pituitary panel 06/18/17 Range/Units 04:25 Sodium 135 L (136-145) mEq/L Potassium 3.9 (3.5-5.1) mEq/L Chloride 97 L (98-107) mEq/L Carbon Dioxide 27 (23-29) mEq/L BUN 56 H (6-20) mg/dL Creatinine 4.82 H (0.70-1.30) mg/dL Glucose 162 H (70-105) mg/dL Calcium 7.9 L (8.6-10.3) mg/dL Adrenal panel 06/18/17 Range/Units 04:25 Sodium 135 L (136-145) mEq/L Potassium 3.9 (3.5-5.1) mEq/L Chloride 97 L (98-107) mEq/L Carbon Dioxide 27 (23-29) mEq/L BUN 56 H (6-20) mg/dL Creatinine 4.82 H (0.70-1.30) mg/dL Glucose 162 H (70-105) mg/dL Calcium 7.9 L (8.6-10.3) mg/dL Consult Discharge Plan - Plan Referrals: Miya Aden DO [Primary Care Provider] -
[2017-06-18] MEDS ORDERED: *HR* Heparin 10,000 UNIT/10 ML VIAL IV PRN (07:28)
[2017-06-18] MEDS ORDERED: 0.9 % Sodium Chloride 1,000 ML ONE (07:41)
--- NOTE | 2017-06-18 08:46 | Nephrology Progress Note ---
Date of Encounter: 06/18/17 Time of Encounter: 08:41 - Assessment and Plan (1) Acute kidney injury Current Visit: Yes Status: Acute HD today, day 2 of 3 back to back treatments Renal diet-ordered Fluid restriction 1.5 liters/day-ordered Continue strict I/Os Avoid nephrotoxins (2) CKD (chronic kidney disease) stage 4, GFR 15-29 ml/min Current Visit: Yes Status: Acute see above (3) Hydronephrosis Current Visit: Yes Status: Acute per urology team Qualifiers: Hydronephrosis type: unspecified Qualified Code(s): N13.30 - Unspecified hydronephrosis (4) Neurogenic bladder Current Visit: Yes Status: Acute (5) Healing wound present on both lower extremities Current Visit: Yes Status: Acute per primary team Subjective Principal diagnosis: Renal dysfunction Interval history: Patient seen and examined while in dialysis. States he is feeling about the same. Objective - Vital Signs Vital signs: Vital Signs Temp Pulse Resp BP Pulse Ox 06/18/17 07:50 98.7 F 81 20 112/73 96 06/18/17 04:29 98.1 F 80 16 143/80 95 06/18/17 00:30 97.4 F L 79 16 160/52 94 06/17/17 20:52 98.1 F 84 16 127/78 95 06/17/17 17:43 98.1 F 93 18 117/71 97 06/17/17 15:44 98.1 F 85 18 112/73 97 06/17/17 14:50 97.8 F 20 127/89 06/17/17 14:35 126/72 06/17/17 14:20 126/72 06/17/17 14:05 147/91 06/17/17 13:50 133/76 06/17/17 13:35 136/68 06/17/17 13:20 156/87 06/17/17 13:05 137/89 06/17/17 12:50 97.8 F 20 121/74 06/17/17 10:38 98.1 F 96 18 121/74 94 06/17/17 08:58 101 14 139/91 97 06/17/17 08:52 94 10 139/91 96 06/17/17 08:44 96 18 152/104 Intake and Output 06/17/17 06/18/17 06/18/17 23:59 07:59 15:59 Intake Total 480 / 480 Output Total 250 / 250 650 / 650 Balance 230 / 230 -650 / -650 Intake: Oral 480 / 480 Output: Catheter 250 / 250 650 / 650 Other: Meal Dinner Percent of Meal Consumed 100% Weight 108.5 kg Blood Glucose* 222 151 Patient Weight 06/18/17 23:59 Weight 108.5 kg - General Appearance General appearance: Present: well-developed, well-nourished, obese EENT: Present: ATNC, mucous membranes moist, hearing intact, vision intact Neck: Present: supple Respiratory: Present: clear Cardiology: Present: edema (feet; BLL dressings in place), normal S1, normal S2 Dialysis Vascular Access: Venous Catheter Gastrointestinal: Present: no tenderness, no guarding, obese Integumentary: Present: warm and dry Neurologic: Present: alert and oriented x3 Psychiatric: Present: mood/affect appropriate, cooperative - Lab 06/18/17 04:25 06/18/17 04:25 Most recent lab results Calcium 7.9 mg/dL (8.6-10.3) L 06/18/17 04:25 Urine Creatinine 62 mg/dL 06/17/17 01:20 Urine Sodium 47.4 mEq/L 06/17/17 01:20 Urine Total Protein 387 mg/dL (1-14) H 06/17/17 01:20 Consult Discharge Plan - Plan Referrals: Miya Aden DO [Primary Care Provider] -
[2017-06-18] MEDS: Insulin DETEMIR 100 UNIT/ML X5UNITS SQ SCH ×2 (08:58→22:37)
[2017-06-18] MEDS: Aspirin Enteric Coated 81 MG Tablet PO SCH (08:58)
[2017-06-18] MEDS: cefTRIAXone 2,000 MG in Water for inj. (sterile) 20 ML 20 ML IVP SCH (08:58)
[2017-06-18] MEDS: Insulin LISPRO 300 UNITS/3 ML VIAL SQ SCH ×4 (08:59→22:36)
[2017-06-18 09:25] LABS: ANA IgG by ELISA NONE DETECTED (None Detected); Complement Component 3 189 mg/dL (88-201); Complement Component 4 46 mg/dL (10-40)
[2017-06-18] MEDS: amLODIPine 5 MG TABLET PO SCH (14:26)
--- NOTE | 2017-06-18 17:37 | Internal Med Progress Note ---
Date of Encounter: 06/18/17 Time of Encounter: 12:00 - Assessment and plan (1) Hydronephrosis Current Visit: Yes Status: Acute Assessment and plan: CT abdomen/pelvis showed right-sided hydronephrosis without ureteral or bladder calculus. Associated with worsening renal function. Urology is on board, patient received right ureteral stent placement. Continue current management. Qualifiers: Hydronephrosis type: unspecified Qualified Code(s): N13.30 - Unspecified hydronephrosis (2) Pyelonephritis Current Visit: Yes Status: Acute Assessment and plan: Presented with leukocytosis and tachycardia, possible pyelonephritis; urine culture from renal aspiration has been sent by Urology from OR; gram stain shows very few GPC, yeast; f/up final culture. initial blood and urine cultures negative; continue IV Rocephin for now; (3) Sepsis Current Visit: Yes Status: Acute Assessment and plan: plan as above; Qualifiers: Sepsis type: sepsis due to unspecified organism Qualified Code(s): A41.9 - Sepsis, unspecified organism (4) Anxiety Current Visit: Yes Status: Chronic (5) Acute kidney injury superimposed on chronic kidney disease Current Visit: Yes Status: Acute Assessment and plan: Nephrology on board. Patient is noted to have worsening serum creatinine, possibly worsening diabetic nephropathy. Received PermCath placement and initiated on hemodialysis, second session done today; counseling services manager on board for chair placement; (6) CKD (chronic kidney disease) stage 4, GFR 15-29 ml/min Current Visit: Yes Status: Chronic (7) Diabetes Current Visit: Yes Status: Chronic Assessment and plan: Noted to have uncontrolled diabetes. Blood sugars improving with HD. Hemoglobin A1c 11.6% in May 2017. continue basal and sliding scale insulin. Continue Accu-Chek blood glucose monitoring. Diabetic diet. Qualifiers: Diabetes mellitus type: type 2 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 insulin use: with terminal computer operator use Diabetes mellitus complication status: with kidney complications Diabetes mellitus complication detail: with chronic kidney disease Chronic kidney disease stage: unspecified stage Qualified Code(s): E11.22 - Type 2 diabetes mellitus with diabetic chronic kidney disease; Z79.4 - intermediate (current) use of insulin; Z79.4 - intermediate (current) use of insulin; Z79.4 - intermediate card tender (current) use of insulin; Z79.4 - intermediate (current) use of insulin (8) Hypertension Current Visit: Yes Status: Chronic Qualifiers: Hypertension type: essential hypertension Qualified Code(s): I10 - Essential (primary) hypertension (9) Neurogenic bladder Current Visit: Yes Status: Chronic Assessment and plan: Likely due to diabetic autonomic neuropathy. Urology recommendations-continue Gaitan catheter for now. (10) Chronic venous hypertension (idiopathic) with ulcer and inflammation of bilateral lower extremity Current Visit: Yes Status: Chronic Assessment and plan: Wound care consult noted. Continue dressings per recommendations. - Subjective Interval history: Returnrd from second session of HD; feels tired and fatigued; no chest pain, dyspnea; improved nausea, right flank pain; - Constitutional Vitals: Temp Pulse Resp BP Pulse Ox 98.6 F 82 20 146/86 92 06/18/17 15:17 06/18/17 15:17 06/18/17 15:17 06/18/17 15:17 06/18/17 15:17 General appearance: Present: A&O X 3, answers questions appropriately - Respiratory Respiratory exam: Present: CTAB. Absent: accessory muscle use, rales, rhonchi, wheezes - Cardiovascular Cardiovascular exam: Present: RRR, +S1, +S2. Absent: diastolic murmur, gallop, rubs, systolic murmur - GI/Abdominal GI/Abdominal exam: Present: normal bowel sounds, soft, no peritoneal signs. Absent: distended, tenderness - Extremities Exam Extremities exam: Present: pedal edema, warm, radial pulses palpable and symmetrical. Absent: calf tenderness, cyanotic Additional comments: B/L anterior venous leg ulcers - Neurological Exam Neurological exam: Present: CN II-XII intact, oriented X3, no focal deficits. Absent: pronater drift, facial droop, speech deficit Internal Medicine: Result - Labs CBC & Chem 7: 06/19/17 03:36 06/19/17 03:36 Labs: Short CBC 06/18/17 Range/Units 04:25 WBC 10.4 (4.3-11.1) K/mcL Hgb 9.6 L (12.9-16.9) g/dL Hct 29.7 L (37.5-50.1) % Plt Count 337 (140-400) K/mcL Neutrophils # 7.5 (1.6-8.9) K/mcL BMP 06/18/17 04:25 Sodium 135 L Potassium 3.9 Chloride 97 L Carbon Dioxide 27 BUN 56 H Creatinine 4.82 H Glucose 162 H Calcium 7.9 L - ABG Interpretation ABG results: PT/INR, D-dimer PT 13.4 Seconds (9.4-12.1) H 06/17/17 05:30 Consult Discharge Plan - Plan Referrals: Miya Aden DO [Primary Care Provider] -
[2017-06-18 17:56] LABS: Kappa Qnt Free Light Chains 16.1 mg/dL (0.33-1.94); Lambda Qnt Free Light Chains 7.4 mg/dL (0.57-2.63)
[2017-06-19 04:17] LABS: Basophils % 0.4 %; Eosinophils # 0.2 K/mcL (0.0-0.6); Eosinophils % 2.8 %; Hematocrit 28.5 % (37.5-50.1); Hemoglobin 9.3 g/dL (12.9-16.9); Immature Granulocytes % 0.3 % (0-4); Lymphocytes # 1.9 K/mcL (0.6-4.6); Lymphocytes % 26.8 %; Mean Corpuscular HGB Conc 32.6 g/dL (31.6-35.5); Mean Corpuscular Hemoglobin 27.5 pg (28.0-33.3); Mean Corpuscular Volume 84.3 fL (83.0-100.0); Mean Platelet Volume 8.8 fL (9.4-12.4); Monocytes # 0.8 K/mcL (0.0-1.3); Monocytes % 11.3 %; Neutrophils # 4.2 K/mcL (1.6-8.9); Platelet Count 269 K/mcL (140-400); Red Blood Count 3.38 M/mcL (4.19-5.50); Red Cell Distribution Width 13.2 % (11.5-14.5); Segmented Neutrophils % 58.4 %
[2017-06-19 04:37] LABS: Calcium 7.7 mg/dL (8.6-10.3); Potassium 3.9 mEq/L (3.5-5.1)
[2017-06-19] MEDS: *HR* Heparin 5,000 UNIT/ML VIAL SQ SCH (06:02)
[2017-06-19] MEDS ORDERED: 0.9 % Sodium Chloride 250 ML IVC PRN (06:31)
--- NOTE | 2017-06-19 07:22 | Urology Progress Note ---
Date of Encounter: 06/19/17 Time of Encounter: 07:20 - Assessment and Plan (1) Neurogenic bladder Current Visit: Yes Status: Chronic Assessment and plan: He has been afebrile. He would like to have his catheter removed and resume clean intermittent catheterization. I think that is reasonable. I will discontinue the Gaitan today. I will continue the stent. We will need to consider outpatient ureteroscopy at a later date. (2) Hydronephrosis Current Visit: Yes Status: Acute Assessment and plan: Continue stent for now. I would have him follow up as an outpatient. We would consider a right ureteroscopy and possible laser lithotripsy. Qualifiers: Hydronephrosis type: unspecified Qualified Code(s): N13.30 - Unspecified hydronephrosis (3) Pyelonephritis Current Visit: Yes Status: Acute Assessment and plan: His infection seems to be improving. We can follow up on the urine cultures as an outpatient. Please transitioned over to oral antibiotic. Consider Omnicef 300 mg by mouth twice a day as he has been doing well on ceftriaxone. Consider 14 day course total of antibiotic. Progress Note Narrative: Doing well today. He is tolerating hemodialysis. Urine has been clear. I contacted the microbiology lab and there was an issue with the urine culture from the kidney. They have set up cultures now with that sample. However, the urine from the kidney has been refrigerated. We will see what the culture grows out. The Gram stain was positive for yeast and Gram-positive cocci. Objective Initial Vital Signs Temp Pulse Resp BP Pulse Ox 97.7 F 89 20 198/118 100 06/15/17 05:33 06/15/17 05:33 06/15/17 05:33 06/15/17 05:33 06/15/17 05:33 - General physical appearance Present: well developed, well nourished, no distress - Genitourinary Urine Appearance: Present: Clear - Labs 06/19/17 03:36 06/19/17 03:36 Diabetes panel 06/19/17 Range/Units 03:36 Sodium 136 (136-145) mEq/L Potassium 3.9 (3.5-5.1) mEq/L Chloride 98 (98-107) mEq/L Carbon Dioxide 29 (23-29) mEq/L BUN 37 H (6-20) mg/dL Creatinine 3.83 H (0.70-1.30) mg/dL Glucose 139 H (70-105) mg/dL Calcium 7.7 L (8.6-10.3) mg/dL Calcium panel 06/19/17 Range/Units 03:36 Calcium 7.7 L (8.6-10.3) mg/dL Pituitary panel 06/19/17 Range/Units 03:36 Sodium 136 (136-145) mEq/L Potassium 3.9 (3.5-5.1) mEq/L Chloride 98 (98-107) mEq/L Carbon Dioxide 29 (23-29) mEq/L BUN 37 H (6-20) mg/dL Creatinine 3.83 H (0.70-1.30) mg/dL Glucose 139 H (70-105) mg/dL Calcium 7.7 L (8.6-10.3) mg/dL Adrenal panel 06/19/17 Range/Units 03:36 Sodium 136 (136-145) mEq/L Potassium 3.9 (3.5-5.1) mEq/L Chloride 98 (98-107) mEq/L Carbon Dioxide 29 (23-29) mEq/L BUN 37 H (6-20) mg/dL Creatinine 3.83 H (0.70-1.30) mg/dL Glucose 139 H (70-105) mg/dL Calcium 7.7 L (8.6-10.3) mg/dL Consult Discharge Plan - Plan Referrals: Miya Aden DO [Primary Care Provider] -
[2017-06-19] MEDS ORDERED: 0.9 % Sodium Chloride 2,000 ML ONE (07:42)
[2017-06-19] MEDS ORDERED: *HR* Heparin 5,000 UNIT/ML VIAL ONE (07:42)
[2017-06-19] MEDS: Insulin LISPRO 300 UNITS/3 ML VIAL SQ SCH ×2 (08:20→12:20)
[2017-06-19] MEDS ORDERED: Cholecalciferol (D-3) 1,000 UNIT TABLET PO SCH (09:00)
--- NOTE | 2017-06-19 11:19 | Nephrology Progress Note ---
Date of Encounter: 06/19/17 Time of Encounter: 11:30 - Assessment and Plan (1) Acute kidney injury Current Visit: Yes Status: Acute s/p thrid HD session today. No signs of renal recovery yet. ESRD likely but will monitor over the weekend without HD for the possibility UOP good at 900cc in the past 24hrs Continue to avoid nephrotoxins if possible Will need outpatient HD placement prior to discharge (2) CKD (chronic kidney disease) stage 4, GFR 15-29 ml/min Current Visit: Yes Status: Chronic GFR between 19-25 in the prior 2 months, unclear if renal recovery possible this time (3) Neurogenic bladder Current Visit: Yes Status: Chronic Per urology. carrera to be discontinued today with intermittent catherization instead Subjective Principal diagnosis: Renal dysfunction Interval history: Interim events noted, pt seen and examined s/p HD today feels a little weak otherwise, no other complaints. Wants to go home. Objective - Vital Signs Vital signs: Vital Signs Temp Pulse Resp BP Pulse Ox 06/19/17 11:00 97.4 F L 15 180/99 06/19/17 10:50 177/88 06/19/17 10:35 164/99 06/19/17 10:20 169/91 06/19/17 10:05 167/101 06/19/17 09:50 142/73 06/19/17 09:35 158/92 06/19/17 09:20 158/92 06/19/17 09:05 164/90 06/19/17 08:50 167/97 06/19/17 08:35 170/95 06/19/17 08:20 151/96 06/19/17 08:05 138/80 06/19/17 07:50 98.1 F 17 163/93 06/19/17 07:45 98.1 F 85 20 133/84 94 06/19/17 04:06 98.6 F 78 16 117/66 98 06/19/17 00:03 98.8 F 86 16 107/70 94 06/18/17 22:45 92 06/18/17 19:04 99.2 F 88 16 100/66 92 06/18/17 15:17 98.6 F 82 20 146/86 92 06/18/17 11:59 98.5 F 90 18 107/62 95 06/18/17 11:35 98.5 F 18 137/81 06/18/17 11:25 124/80 Intake and Output 06/18/17 06/19/17 06/19/17 23:59 07:59 15:59 Intake Total 600 / 600 Output Total 1200 / 1200 600 / 600 Balance -600 / -600 -600 / -600 Intake: Oral 0 / 0 Intake, Rinseback and Flushes 600 / 600 Output: Urine 0 / 0 Total Dialysis (HD) Output 600 / 600 Catheter 1200 / 1200 Other: Meal Dinner Percent of Meal Consumed 5% Blood Glucose* 93 185 Hemodialysis Net Fluid Removed 0 0 (mL) - General Appearance General appearance: Present: chronically ill (NAD) EENT: Present: ATNC, mucous membranes moist Neck: Present: no JVD, supple Respiratory: Present: clear Cardiology: Present: normal S1, normal S2 Dialysis Vascular Access: Venous Catheter (permcath) Gastrointestinal: Present: no tenderness, no guarding Integumentary: Present: warm and dry Neurologic: Present: no focal deficit Musculoskeletal: Present: no deformities Psychiatric: Present: mood/affect appropriate - Lab 06/19/17 03:36 06/19/17 03:36 Most recent lab results Calcium 7.7 mg/dL (8.6-10.3) L 06/19/17 03:36 Urine Creatinine 62 mg/dL 06/17/17 01:20 Urine Sodium 47.4 mEq/L 06/17/17 01:20 Urine Total Protein 387 mg/dL (1-14) H 06/17/17 01:20 Consult Discharge Plan - Plan Referrals: Miya Aden DO [Primary Care Provider] -
[2017-06-19] MEDS: amLODIPine 5 MG TABLET PO SCH (11:47)
[2017-06-19] MEDS: Aspirin Enteric Coated 81 MG Tablet PO SCH (11:47)
[2017-06-19] MEDS: cefTRIAXone 2,000 MG in Water for inj. (sterile) 20 ML 20 ML IVP SCH (11:49)
[2017-06-19] MEDS: Insulin DETEMIR 100 UNIT/ML X5UNITS SQ SCH (11:54)
[2017-06-19] MEDS ORDERED: amLODIPine 5 MG TABLET PO SCH (12:01)
[2017-06-19 15:27] VITALS: BP 117/76
--- NOTE | 2017-06-19 15:36 | Discharge Summary ---
- NOTES TO OUTPATIENT PROVIDER Notes to Outpatient Provider: Final urine culture; Orders not resulted at time of discharge: Pending orders 06/16/17 Culture,Anaerobic [RM] Routine Culture,Body Fluid [RM] Routine 06/18/17 21:24 Immunofixation,Urine (BJP) Stat Date of Encounter: 06/19/17 Time of Encounter: 15:34 - Discharge Diagnosis (1) Hydronephrosis Priority: Primary Status: Acute Qualifiers: Hydronephrosis type: unspecified Qualified Code(s): N13.30 - Unspecified hydronephrosis (2) Pyelonephritis Priority: Primary Status: Acute (3) Sepsis Priority: Primary Status: Acute Qualifiers: Sepsis type: sepsis due to unspecified organism Qualified Code(s): A41.9 - Sepsis, unspecified organism (4) Anxiety Priority: Secondary Status: Chronic (5) Acute kidney injury superimposed on chronic kidney disease Priority: Primary Status: Acute (6) Diabetes Priority: Secondary Status: Chronic Qualifiers: Diabetes mellitus type: type 2 Diabetes mellitus half-way insulin use: with half-way use Diabetes mellitus complication status: with kidney complications Diabetes mellitus complication detail: with chronic kidney disease Chronic kidney disease stage: stage 4 (severe) Qualified Code(s): E11.22 - Type 2 diabetes mellitus with diabetic chronic kidney disease; N18.4 - Chronic kidney disease, stage 4 (severe); N18.4 - Chronic kidney disease, stage 4 (severe); N18.4 - Chronic kidney disease, stage 4 (severe); N18.4 - Chronic kidney disease, stage 4 (severe); Z79.4 - terminal clerk (current) use of insulin; Z79.4 - senior living (current) use of insulin; Z79.4 - terminal clerk (current) use of insulin; Z79.4 - terminal clerk (current) use of insulin (7) Hypertension Priority: Secondary Status: Chronic Qualifiers: Hypertension type: essential hypertension Qualified Code(s): I10 - Essential (primary) hypertension (8) Neurogenic bladder Priority: Secondary Status: Chronic (9) Chronic venous hypertension (idiopathic) with ulcer and inflammation of bilateral lower extremity Priority: Secondary Status: Chronic (10) CKD (chronic kidney disease) stage 4, GFR 15-29 ml/min Priority: Secondary Status: Chronic Hospital course: Mr. Hernandez is a 52 year old male with the above medical problems, who was admitted with nausea, vomiting and right flank pain. CT abdomen/pelvis showed right-sided hydronephrosis without ureteral or bladder calculus, possible hemorrhage in proximal right ureter. Urology was consulted, patient was noted to have worsening renal function, therefore received right ureteral stent. Urine culture sent from right renal mass patient from operating room is pending at this time. Gram stain showed very few gram-positive cocci and few yeast. Patient was started on IV Rocephin with significant clinical improvement. Nephrology was consulted, patient was noted to have acute on chronic renal failure. He does have a history of chronic kidney disease stage IV. Patient was initiated on hemodialysis, he received PermCath placement. He was initially noted to have uncontrolled blood sugars, which are currently better controlled with dialysis. He is noted to have uncontrolled hypertension , started on Norvasc. He is otherwise medically stable for discharge with outpatient follow-up. financial services consultant has been on board, outpatient hemodialysis chair has been arranged. Discharge discussed with: patient - Time Spent with Patient Total time spent providing and/or coordinating discharge services: Greater than 30 minutes (45 min) - Discharge Medications Prescriptions: amLODIPine [Norvasc] 10 mg PO DAILY #60 tablet Cefdinir [Omnicef] 300 mg PO BID #20 capsule Cholecalciferol (D-3) [Vitamin D] 1,000 unit PO DAILY #30 tablet Home Medications: Aspirin Enteric Coated [Aspirin EC] 81 mg PO DAILY 06/15/17 [History] Insulin ASPART [Novolog Flexpen] 10 units SQ BID 06/15/17 [History] Insulin ASPART [Novolog Flexpen] 15 units SQ 1200 06/15/17 [History] Lisinopril [Zestril] 10 mg PO DAILY 06/15/17 [History] Cefdinir [Omnicef] 300 mg PO BID #20 capsule 06/19/17 [Rx] Cholecalciferol (D-3) [Vitamin D] 1,000 unit PO DAILY #30 tablet 06/19/17 [Rx] Insulin Glargine,Hum.rec.anlog [Lantus Solostar] 25 units SQ HS #0 06/19/17 [Rx] amLODIPine [Norvasc] 10 mg PO DAILY #60 tablet 06/19/17 [Rx] Allergies/Adverse Reactions: 3 Allergy/AdvReac Type Severity Reaction Status Date / Time No Known Allergies Allergy Verified 06/15/17 05:31 Date of admission: 06/15/17 16:28 Primary care physician: Jacobo Booker Consults: 06/15/17 16:57 Consult to Nutrition [CONS] Routine Comment: Consulting Provider: NUTRITION Reason for Dietary Consult: MST Score 06/17/17 07:19 Consult to Interventional Radiology [CONS] Routine Consulting Provider: Radiology Interventional Cols Reason for Consult: Please evaluate for placement of a Permacath she has progressed from stage V CKD to ESRD. Thank you Call Completed: No 06/17/17 07:30 Consult to Dialysis [CONS] ONCE 06/18/17 07:30 Consult to Dialysis [CONS] ONCE 06/18/17 09:43 Consult to Swimming Pool Installer [CONS] Routine Reason for SW Consult: Need chair time at [facility]; ESRD already has permacath placed 06/19/17 06:45 Consult to Dialysis [CONS] ONCE Discharging clinician: Majo Jefferson Anticipated date of discharge: 06/19/17 - Constitutional Vitals: Temp Pulse Resp BP Pulse Ox 98.6 F 78 16 117/76 95 06/19/17 15:25 06/19/17 15:25 06/19/17 15:25 06/19/17 15:25 06/19/17 15:25 General appearance: Present: A&O X 3, answers questions appropriately - Respiratory Respiratory exam: Present: CTAB. Absent: accessory muscle use, rales, rhonchi, wheezes - Cardiovascular Cardiovascular exam: Present: RRR, +S1, +S2. Absent: diastolic murmur, gallop, rubs, systolic murmur - Patient Status Disposition: Home Health Service Condition: Good Functional capacity at discharge: uses cane/walker Overall status at discharge: patient is progressing back to baseline - Discharge Instructions Instructions: Sepsis (DC) Follow Up With: Miya Aden DO [Primary Care Provider] - Additional Instructions: F/up with PCP in 1-2 weeks F/up with [facility] in 2-3 weeks F/up with HD 3times/week- MWF - Diet and Activity Activity: resume usual activities as tolerated Diet: diabetic diet, low fat, low cholesterol, low salt diet, other (renal diet)
--- NOTE | 2017-06-19 15:49 | Physician Discharge Referral ---
Home Health/Hosp Referral Info Transfer to: Home Health Attending Provider: Majo Jefferson Provider in Charge Post Discharge: PCP - Diagnosis (1) Hydronephrosis Priority: Primary Status: Acute (2) Pyelonephritis Priority: Primary Status: Acute (3) Sepsis Priority: Primary Status: Resolved (4) Anxiety Priority: Secondary Status: Chronic (5) Acute kidney injury superimposed on chronic kidney disease Priority: Primary Status: Acute (6) Diabetes Priority: Secondary Status: Chronic (7) Hypertension Priority: Secondary Status: Chronic (8) Neurogenic bladder Priority: Secondary Status: Chronic (9) Chronic venous hypertension (idiopathic) with ulcer and inflammation of bilateral lower extremity Priority: Secondary Status: Chronic (10) CKD (chronic kidney disease) stage 4, GFR 15-29 ml/min Priority: Secondary Status: Chronic - Respiratory Orders Smoking Cessation: Smoking cessation has been advised. For more information, call the [employer] Tobacco Quit Line at 6-702-CQJP-NOW. - Diet/Nutrition Diet/Nutrition Orders: Renal, Cardiac, No Concentrated Sweets (diabetic) - Activity Activity Orders: Ambulate - Services Needed Following services are medically necessary services: Nursing (wound care per safe technician recommendations) - Transfer Medications Prescriptions: amLODIPine [Norvasc] 10 mg PO DAILY #60 tablet Cefdinir [Omnicef] 300 mg PO BID #20 capsule Cholecalciferol (D-3) [Vitamin D] 1,000 unit PO DAILY #30 tablet Home Medications: Aspirin Enteric Coated [Aspirin EC] 81 mg PO DAILY 06/15/17 [History] Insulin ASPART [Novolog Flexpen] 10 units SQ BID 06/15/17 [History] Insulin ASPART [Novolog Flexpen] 15 units SQ 1200 06/15/17 [History] Lisinopril [Zestril] 10 mg PO DAILY 06/15/17 [History] Cefdinir [Omnicef] 300 mg PO BID #20 capsule 06/19/17 [Rx] Cholecalciferol (D-3) [Vitamin D] 1,000 unit PO DAILY #30 tablet 06/19/17 [Rx] Insulin Glargine,Hum.rec.anlog [Lantus Solostar] 25 units SQ HS #0 06/19/17 [Rx] amLODIPine [Norvasc] 10 mg PO DAILY #60 tablet 06/19/17 [Rx] Allergies/Adverse Reactions: 3 Allergy/AdvReac Type Severity Reaction Status Date / Time No Known Allergies Allergy Verified 06/15/17 05:31 Certification: Further, I certify that my clinical findings support that this patient is homebound (i.e. absences from home require considerable and taxing effort and are for medical reasons or episcopal services or infrequently or short duration when for other reasons) because: Homebound Reason: Patient requires assistance of a person or device to safely leave home, Leaving home requires considerable and taxing effort due to condition Attestation: My signature below is to certify that this patient is under my care and that I, or nurse practitioner, or a physician's assistant production editor working with me, has a face-to -face encounter with this patient.
[2017-06-19] MEDS ORDERED: Insulin DETEMIR 100 UNIT/ML X5UNITS SQ SCH (21:00)
[2017-06-21 12:41] LABS: Urine Collection Duration RANDOM hr; Urine Collection Volume RANDOM mL
--- NOTE | 2017-06-22 12:37 | Event Note ---
Date of Encounter: 06/22/17 Time of Encounter: 12:35 Patient presented with UTI and hydronephrosis. Final urine cultures grew VRE sensitive to Zyvox. The patient was informed that his current antibiotic coverage did not cover the specific organism and that he would need to go to his local pharmacy to pickle water pump operator a new prescription for Zyvox 600 mg by mouth twice a day 14 days. The patient confirmed that he had no medication allergies and Zyvox was prescribed. Additionally, when I spoke with the patient I informed him that he would need to follow up with his primary care provider at the end of the 14 days and have a follow-up urinalysis with culture. The patient stated that he understood and had no further questions.
--- NOTE | 2017-06-22 13:42 | Event Note ---
Date of Encounter: 06/22/17 Time of Encounter: 13:40 I have spoken with urology and his PCP. I have informed them it is in the patient's best interest that the patient return to the ED d/t VRE growth in urine aspirate. I have called and informed the patient that he should return for ABX treatment and that at that time he may need an infectious disease consult. The patient is ESRD, DM patient who self cath's at home and this could be colonization. However, it is within he best interest to return to [facility] for ABX therapy at this time.
== END 2017-06-19 16:47 | disposition home health service (06) | DRG 871 ==
LOC: EMEROO 05:31 → 2ANU 05:31 → SUATTDRO 16:28 → 2ANU 16:29
PROVIDERS: ADMIT Internal Medicine; ATTEND Internal Medicine
PROC: IRPERMA (2017-06-17 12:00)

== ENCOUNTER 2017-06-22 20:29 | Inpatient (IN) ==
[2017-06-23] MEDS ORDERED: 0.9 % Sodium Chloride 1,000 ML IVC ONE (00:04)
[2017-06-23] MEDS ORDERED: Ondansetron ODT 4 MG TAB.RAPDIS SL ONE (00:04)
[2017-06-23] MEDS ORDERED: Piperacillin/Tazobactam 3.375 GM in D5% in Water (Mini-Bag+) 100 ML IVPB ONE (00:07)
[2017-06-23 00:26] LABS: Basophils % 0.3 %; Eosinophils # 0.1 K/mcL (0.0-0.6); Eosinophils % 0.8 %; Hematocrit 32.1 % (37.5-50.1); Hemoglobin 10.3 g/dL (12.9-16.9); Lymphocytes # 1.2 K/mcL (0.6-4.6); Lymphocytes % 10.6 %; Mean Corpuscular HGB Conc 32.1 g/dL (31.6-35.5); Mean Corpuscular Volume 84.3 fL (83.0-100.0); Mean Platelet Volume 9.2 fL (9.4-12.4); Monocytes % 8.4 %; Neutrophils # 9.1 K/mcL (1.6-8.9); Nucleated Red Blood Cells 0.2 /100 WBC (0); Platelet Count 292 K/mcL (140-400); Red Blood Count 3.81 M/mcL (4.19-5.50); Red Cell Distribution Width 13.1 % (11.5-14.5); Segmented Neutrophils % 78.9 %
[2017-06-23 00:32] LABS: INR 1.2; Prothrombin Time 13.4 Seconds (9.4-12.1)
[2017-06-23 00:34] LABS: Activated Partial Thrombo Time 30.3 Seconds (26.0-36.0)
[2017-06-23] MEDS ORDERED: Piperacillin/Tazobactam 3.375 GM in Water for inj. (sterile) 20 ML 20 ML IVP ONE (00:45)
[2017-06-23 00:50] LABS: Albumin 2.9 g/dL (3.5-5.7); Albumin/Globulin Ratio 0.6 (1.1-2.2); Bilirubin,Direct 0.1 mg/dL (0.0-0.2); Bilirubin,Indirect 0.2 mg/dL (0.0-1.2); Bilirubin,Total 0.3 mg/dL (0.3-1.0); Calcium 8.1 mg/dL (8.6-10.3); Globulin 4.5 g/dL (2.4-3.5); Total Protein 7.4 g/dL (6.4-8.9)
[2017-06-23 00:51] LABS: Bilirubin,Urine Negative (Negative); Blood,Urine Trace (Negative); Clarity,Urine Cloudy (Clear); Color,Urine Yellow (Yellow); Glucose,Urine (UA) >=1000 mg/dL (Normal); Ketones,Urine Trace mg/dL (Negative); Leukocyte Esterase,Urine Small (Negative); Nitrite,Urine Negative (Negative); Protein,Urine >=1000 mg/dL (Neg-Trace); Specific Gravity,Urine 1.028 (1.010-1.025); Urobilinogen,Urine Normal (Normal)
[2017-06-23 00:55] LABS: Troponin I 0.04 ng/mL (< 0.04)
[2017-06-23 00:57] LABS: Bacteria,Urine None Seen per hpf (None-Few); Squamous Epithelial Cell,Urine Many per lpf (None-Few); WBC,Urine 50-100 per hpf (0-3)
--- NOTE | 2017-06-23 01:57 | Emergency Department Note ---
Disposition Clinical Impression: Urinary tract infection Qualifiers: Urinary tract infection type: site unspecified Hematuria presence: without hematuria Qualified Code(s): N39.0 - Urinary tract infection, site not specified Disposition: Admitted As Inpatient Referrals: Miya Aden DO [Primary Care Provider] - Time of Disposition: 00:30 General Adult HPI - General Chief complaint: ED Urogenital-Male Stated complaint: "kidney infection, sent by PCP for IV ATB" Time Seen by Provider: 06/22/17 23:28 Source: patient, family Mode of arrival: ambulatory Limitations: no limitations Nursing Notes Reviewed: Yes Vital Signs Reviewed: Yes - History of Present Illness HPI Narrative: 52-year-old male presents emergency Department with concerns of suprapubic abdominal pain, nausea, fever. Patient states he has a history of nephrogenic bladder and must self catheter. He has been treated for urinary tract infection of the past week. He was called by his primary care provider who recommended he be evaluated in the emergency department for further evaluation as his antibiotic was not likely covering the bacteria appropriately. Microbiology results show vancomycin-resistant bacteria. Pain Scale: 10 - Related Data Home Medications Medication Instructions Recorded Confirmed Aspirin Enteric Coated [Aspirin EC] 81 mg PO DAILY 06/15/17 06/15/17 Insulin ASPART [Novolog Flexpen] 10 units SQ BID 06/15/17 06/15/17 Insulin ASPART [Novolog Flexpen] 15 units SQ 1200 06/15/17 06/15/17 Lisinopril [Zestril] 10 mg PO DAILY 06/15/17 06/15/17 Previous Rx's Medication Instructions Recorded Cefdinir [Omnicef] 300 mg PO BID #20 capsule 06/19/17 Cholecalciferol (D-3) [Vitamin D] 1,000 unit PO DAILY #30 tablet 06/19/17 Insulin Glargine,Hum.rec.anlog 25 units SQ HS #0 06/19/17 [Lantus Solostar] amLODIPine [Norvasc] 10 mg PO DAILY #60 tablet 06/19/17 Ondansetron [Zofran ODT] 8 mg SL Q4HR 7 Days #42 tab.rapdis 06/20/17 Allergies Allergy/AdvReac Type Severity Reaction Status Date / Time No Known Allergies Allergy Verified 06/20/17 15:19 All systems ED: reviewed and negative except as stated. Review of Systems: As Per HPI Past Medical History - Past Medical History Attestation: Yes The following information was validated with the patient. Medical history: Reports: diabetes, dialysis, hypertension, renal disease Surgical history: Reports: cholecystectomy Psychiatric history: Reports: anxiety - Social History Smoking Status: Never smoker Smokeless Tobacco Status: No Alcohol use: Reports: none Drug use: Reports: none Physical Exam General: Alert and in no acute distress Skin: Warm, dry, intact Head: Normocephalic and atraumatic Neck: Supple, trachea midline and no tenderness Cardiovascular: RRR, no murmur, normal perfusion Respiratory: CTAB, no wheezing, cough, or respiratory distress Musculoskeletal: Normal strength, no tenderness, swelling or deformity GI: Soft, suprapubic abdominal pain present to palpation however there is no rigidity, guarding, or rebound. Neuro: A&O to person, place, time and situation. No focal deficits noted on exam Psychiatric: cooperative and appropriate mood and affect. - General Limitations: no limitations General appearance: alert, in no apparent distress Course Vital Signs Temperature 98.2 F 06/22/17 20:31 Pulse Rate 105 06/22/17 20:31 Respiratory Rate 18 06/22/17 20:31 Blood Pressure 139/80 06/22/17 20:31 O2 Sat by Pulse Oximetry 99 06/22/17 20:31 Temperature 98.2 F 06/22/17 20:31 Pulse Rate 85 06/23/17 01:44 Respiratory Rate 14 06/23/17 01:44 Blood Pressure 142/82 06/23/17 01:44 O2 Sat by Pulse Oximetry 94 06/23/17 01:44 Oxygen Delivery Oxygen Delivery Room Air Medical Decision Making - [facility] Narrative Medical decision making narrative: Patient given linezolid and Zosyn in the emergency department. Patient will be admitted for further care and evaluation of multidrug-resistant urinary tract infection. - Medical Records Medical records reviewed: Yes I reviewed the patient's medical records. - Lab Data Lab results reviewed: Yes I reviewed the patient's lab results. Result diagrams: 06/23/17 00:17 06/23/17 00:17 Lab Results 06/23/17 06/23/17 06/23/17 Range/Units 00:17 00:17 00:17 WBC 11.5 H (4.3-11.1) K/mcL RBC 3.81 L (4.19-5.50) M/mcL Hgb 10.3 L (12.9-16.9) g/dL Hct 32.1 L (37.5-50.1) % MCV 84.3 (83.0-100.0) fL MCH 27.0 L (28.0-33.3) pg MCHC 32.1 (31.6-35.5) g/dL RDW 13.1 (11.5-14.5) % Plt Count 292 (140-400) K/mcL MPV 9.2 L (9.4-12.4) fL Immature Gran % 1.0 (0-4) % Seg Neutrophils % 78.9 % Lymphocytes % 10.6 % Monocytes % 8.4 % Eosinophils % 0.8 % Basophils % 0.3 % Neutrophils # 9.1 H (1.6-8.9) K/mcL Lymphocytes # 1.2 (0.6-4.6) K/mcL Monocytes # 1.0 (0.0-1.3) K/mcL Eosinophils # 0.1 (0.0-0.6) K/mcL Basophils # 0.0 (0.0-0.2) K/mcL Nucleated RBCs/100 WBC 0.2 H (0) /100 WBC PT 13.4 H (9.4-12.1) Seconds INR 1.2 APTT 30.3 (26.0-36.0) Seconds Sodium 135 L (136-145) mEq/L Potassium 4.0 (3.5-5.1) mEq/L Chloride 95 L (98-107) mEq/L Carbon Dioxide 27 (23-29) mEq/L BUN 29 H (6-20) mg/dL Creatinine 3.71 H (0.70-1.30) mg/dL Est GFR ( Amer) 21 L (> 60) Est GFR (Non-Af Amer) 17 L (> 60) BUN/Creatinine Ratio 8 (6-26) Glucose 269 H (70-105) mg/dL Calculated Osmolality 295 (280-300) Lactic Acid (0.5-2.2) mmol/L Calcium 8.1 L (8.6-10.3) mg/dL Total Bilirubin 0.3 (0.3-1.0) mg/dL Direct Bilirubin 0.1 (0.0-0.2) mg/dL Indirect Bilirubin 0.2 (0.0-1.2) mg/dL AST 23 (13-39) Units/L ALT 15 (7-52) Units/L Alkaline Phosphatase 116 H (34-104) Units/L Troponin I 0.04 H* (< 0.04) ng/mL Serum Total Protein 7.4 (6.4-8.9) g/dL Albumin 2.9 L (3.5-5.7) g/dL Globulin 4.5 H (2.4-3.5) g/dL Albumin/Globulin Ratio 0.6 L (1.1-2.2) Lipase 11 (11-82) Units/L Urine Color (Yellow) Urine Clarity (Clear) Urine pH (5.0-8.0) pH Units Ur Specific [place] (1.010-1.025) Urine Protein (Neg-Trace) mg/dL Urine Glucose (UA) (Normal) mg/dL Urine Ketones (Negative) mg/dL Urine Blood (Negative) Urine Nitrite (Negative) Urine Bilirubin (Negative) Urine Urobilinogen (Normal) mg/dL Ur Leukocyte Esterase (Negative) Urine Microscopic RBC (0-3) per hpf Urine Microscopic WBC (0-3) per hpf Ur Squamous Epith Cells (None-Few) per lpf Urine Bacteria (None-Few) per hpf Hyaline Casts Ur Culture Indicated? (NO) 06/23/17 06/23/17 Range/Units 00:17 00:29 WBC (4.3-11.1) K/mcL RBC (4.19-5.50) M/mcL Hgb (12.9-16.9) g/dL Hct (37.5-50.1) % MCV (83.0-100.0) fL MCH (28.0-33.3) pg MCHC (31.6-35.5) g/dL RDW (11.5-14.5) % Plt Count (140-400) K/mcL MPV (9.4-12.4) fL Immature Gran % (0-4) % Seg Neutrophils % % Lymphocytes % % Monocytes % % Eosinophils % % Basophils % % Neutrophils # (1.6-8.9) K/mcL Lymphocytes # (0.6-4.6) K/mcL Monocytes # (0.0-1.3) K/mcL Eosinophils # (0.0-0.6) K/mcL Basophils # (0.0-0.2) K/mcL Nucleated RBCs/100 WBC (0) /100 WBC PT (9.4-12.1) Seconds INR APTT (26.0-36.0) Seconds Sodium (136-145) mEq/L Potassium (3.5-5.1) mEq/L Chloride (98-107) mEq/L Carbon Dioxide (23-29) mEq/L BUN (6-20) mg/dL Creatinine (0.70-1.30) mg/dL Est GFR ( Amer) (> 60) Est GFR (Non-Af Amer) (> 60) BUN/Creatinine Ratio (6-26) Glucose (70-105) mg/dL Calculated Osmolality (280-300) Lactic Acid 1.0 (0.5-2.2) mmol/L Calcium (8.6-10.3) mg/dL Total Bilirubin (0.3-1.0) mg/dL Direct Bilirubin (0.0-0.2) mg/dL Indirect Bilirubin (0.0-1.2) mg/dL AST (13-39) Units/L ALT (7-52) Units/L Alkaline Phosphatase (34-104) Units/L Troponin I (< 0.04) ng/mL Serum Total Protein (6.4-8.9) g/dL Albumin (3.5-5.7) g/dL Globulin (2.4-3.5) g/dL Albumin/Globulin Ratio (1.1-2.2) Lipase (11-82) Units/L Urine Color Yellow (Yellow) Urine Clarity Cloudy A (Clear) Urine pH 7.0 (5.0-8.0) pH Units Ur Specific [place] 1.028 H (1.010-1.025) Urine Protein >=1000 H (Neg-Trace) mg/dL Urine Glucose (UA) >=1000 H (Normal) mg/dL Urine Ketones Trace H (Negative) mg/dL Urine Blood Trace H (Negative) Urine Nitrite Negative (Negative) Urine Bilirubin Negative (Negative) Urine Urobilinogen Normal (Normal) mg/dL Ur Leukocyte Esterase Small H (Negative) Urine Microscopic RBC 5-15 H (0-3) per hpf Urine Microscopic WBC 50-100 H (0-3) per hpf Ur Squamous Epith Cells Many H (None-Few) per lpf Urine Bacteria None Seen (None-Few) per hpf Hyaline Casts Test Not Performed Ur Culture Indicated? NO. (NO) - Radiology Data Radiology results reviewed: Yes I reviewed the patient's radiology results. - EKG Data EKG #1 EKG attestation: Yes I reviewed and interpreted this EKG. EKG results narrative: Normal sinus rhythm with rate of 89 without evidence of STEMI. +PVC
[2017-06-23] MEDS ORDERED: Naloxone 0.4 MG/ML INJ IVP PRN (03:07)
[2017-06-23] MEDS ORDERED: D5% in Water 1,000 ML IVC PRN (03:08)
[2017-06-23] MEDS ORDERED: *HR* Dextrose 50 % in Water (Syg) 50 ML SYRINGE IVP PRN (03:08)
[2017-06-23] MEDS ORDERED: Dextrose Gel 15 GM/37.5 ML TUBE PO PRN ×2 (03:08)
--- NOTE | 2017-06-23 03:13 | Internal Med History&Physical ---
Date of Encounter: 06/23/17 Time of Encounter: 03:09 Assessment and Plan (1) Urinary tract infection Current visit: Yes Status: Acute With subjective fever and chills. Urine culture done during last hospitalization was positive 6 days later for VRE. Sensitive to Zyvox. We will continue Zyvox. We will consult urology and infectious disease for further recommendations. High risk for complications due to underlying comorbidities and uncontrolled diabetes. Qualifiers: Urinary tract infection type: acute cystitis Hematuria presence: without hematuria Qualified Code(s): N30.00 - Acute cystitis without hematuria (2) CKD (chronic kidney disease) stage 4, GFR 15-29 ml/min Current visit: Yes Status: Chronic Chronic and stable renal function. (3) Diabetes Current visit: Yes Status: Chronic Blood sugars elevated. Place patient on sliding scale coverage and Lantus. Qualifiers: Diabetes mellitus type: type 2 Diabetes mellitus termination clerk insulin use: with termination clerk use Diabetes mellitus complication status: with kidney complications Diabetes mellitus complication detail: with chronic kidney disease Chronic kidney disease stage: stage 4 (severe) Qualified Code(s): E11.22 - Type 2 diabetes mellitus with diabetic chronic kidney disease; N18.4 - Chronic kidney disease, stage 4 (severe); N18.4 - Chronic kidney disease, stage 4 (severe); N18.4 - Chronic kidney disease, stage 4 (severe); N18.4 - Chronic kidney disease, stage 4 (severe); Z79.4 - long term care phlebotomist (current) use of insulin; Z79.4 - USP (current) use of insulin; Z79.4 - long term care phlebotomist (current) use of insulin; Z79.4 - USP (current) use of insulin (4) Hypertension Current visit: Yes Status: Chronic Continue amlodipine and lisinopril Qualifiers: Hypertension type: essential hypertension Qualified Code(s): I10 - Essential (primary) hypertension (5) Neurogenic bladder Current visit: Yes Status: Chronic Continue straight catheterization as needed. Follow sterile precautions. (6) Nausea & vomiting Current visit: Yes Status: Acute Most likely from diabetic gastroparesis. Will treat with antiemetics and prokinetic agents as needed. Patient having bowel movements so at this time unlikely to be for bowel obstruction. If the symptoms worsen, will get KUB x- ray. Qualifiers: Vomiting type: cyclical vomiting Vomiting Intractability: non-intractable Qualified Code(s): G43.A0 - Cyclical vomiting, not intractable (7) DVT prophylaxis Current visit: Yes Status: Acute With subcutaneous heparin Internal Medicine - H&P: HPI Chief complaint: Urine culture growing VRE Admitted From: Emergency Dept Plans for Post Hospital Care: Home History of present illness: Mr. Hernandez is a 52 year old male patient with a history of neurogenic bladder who was hospitalized recently with a urinary tract infection presented to the ER with suprapubic abdominal pain nausea and fever. He had been discharged recently with Omnicef. However his urine culture is growing VRE. As such he was asked to come back to the ER for further evaluation. He reports that his been having fever and chills all over and increase appropriate pain radiating to his back. He says that he has not been able to keep any food down for the past couple of days with increased nausea and vomiting. He had a Gaitan catheter placed when he was hospitalized and it was removed prior to discharge. He reports that his been using appropriate precautions while using his catheters for self-catheterization. Past Med Surg Social Fam HX - Past Medical History Attestation: Yes The following information was validated with the patient. Source: old records reviewed Medical history: diabetes, dialysis, hypertension, renal disease Psychiatric history: anxiety - Past Surgical History Surgical History: cholecystectomy - Social History Smoking Status: Never smoker Smokeless Tobacco Status: No Alcohol use: none Drug use: none - Family History Mother Living Status: Hx Family Cardiac Disorders: Yes Hx Family Respiratory Disorders: Yes Hx Family Endocrine Disorder: Yes Father Living Status: Hx Family Cardiac Disorders: Yes Hx Family Cancer: Yes Hx Family Endocrine Disorder: Yes Internal Medicine - H&P: Meds Aspirin Enteric Coated [Aspirin EC] 81 mg PO DAILY 06/15/17 [History] Insulin ASPART [Novolog Flexpen] 10 units SQ BID 06/15/17 [History] Insulin ASPART [Novolog Flexpen] 15 units SQ 1200 06/15/17 [History] Lisinopril [Zestril] 10 mg PO DAILY 06/15/17 [History] Cefdinir [Omnicef] 300 mg PO BID #20 capsule 06/19/17 [Rx] Cholecalciferol (D-3) [Vitamin D] 1,000 unit PO DAILY #30 tablet 06/19/17 [Rx] Insulin Glargine,Hum.rec.anlog [Lantus Solostar] 25 units SQ HS #0 06/19/17 [Rx] amLODIPine [Norvasc] 10 mg PO DAILY #60 tablet 06/19/17 [Rx] Ondansetron [Zofran ODT] 8 mg SL Q4HR 7 Days #42 tab.rapdis 06/20/17 [Rx] 3 Allergy/AdvReac Type Severity Reaction Status Date / Time No Known Allergies Allergy Verified 06/20/17 15:19 All Systems PM: A 10-system review of systems was performed and is negative for pertinent findings except as documented above in the HPI. - Constitutional Constitutional: chills, fever(s), no night sweats - EENT Eyes: no change in vision, no discharge, no pain, no photophobia Ears: no ear discharge, no ear pain, no tinnitus Nose, mouth and throat: no dysphagia, no nasal discharge, no neck pain, no sore throat - Cardiovascular Cardiovascular ROS IM: no chest pain, no diaphoresis, no dyspnea, no lightheadedness, no palpitations, no syncope - Respiratory Respiratory: no cough, no dyspnea, no wheezing, no excessive phlegm production - Gastrointestinal Gastrointestinal: no abdominal pain, no diarrhea, no hematemesis, no hematochezia, no melena, no nausea, no vomiting - Genitourinary Additional comments: Suprapubic pain - Musculoskeletal Musculoskeletal ROS IM: no numbness, no tingling - Integumentary Integumentary IM: no rash, no unusual bruising - Neurological Neurological ROS: no confusion, no convulsions, no focal weakness, no numbness, no tingling, no tremor(s) - Hematologic/Lymphatic Hematologic/Lymphatic: no easy bruising - Constitutional Vitals: Temp Pulse Resp BP Pulse Ox 98.2 F 85 14 142/82 94 06/22/17 20:31 06/23/17 01:44 06/23/17 01:44 06/23/17 01:44 06/23/17 01:44 General appearance: Present: mild distress, A&O X 3, obese, answers questions appropriately - Neck Neck exam general surgery: Present: supple, trachea midline. Absent: lymphadenopathy - Respiratory Respiratory exam: Present: CTAB. Absent: accessory muscle use, rales, rhonchi, wheezes - Cardiovascular Cardiovascular exam: Present: RRR, +S1, +S2. Absent: diastolic murmur, gallop, rubs, systolic murmur - GI/Abdominal GI/Abdominal exam: Present: normal bowel sounds, soft, tenderness (Suprapubic pain), no peritoneal signs. Absent: distended - Extremities Exam Extremities exam: Present: warm, radial pulses palpable and symmetrical. Absent : calf tenderness, cyanotic, pedal edema Additional comments: Chronic wounds on both lower extremities. Bandaged. - Neurological Exam Neurological exam: Present: alert, CN II-XII intact, oriented X3, no focal deficits. Absent: facial droop, speech deficit - Skin Skin exam: Present: dry, intact Internal Med - H&P Results - Labs CBC & Chem 7: 06/23/17 00:17 06/23/17 00:17
[2017-06-23] MEDS: Ondansetron ODT 4 MG TAB.RAPDIS SL SCH ×4 (04:04→23:09)
[2017-06-23] MEDS: Fluconazole 400 MG/200 ML 400 MG/200 ML BAG IVPB SCH ×2 (04:15→08:54)
[2017-06-23] MEDS: *HR* OxyCODONE/APAP 5/325 TABLET PO PRN ×2 (04:45→18:44)
[2017-06-23] MEDS: *HR* Heparin 5,000 UNIT/ML VIAL SQ SCH ×2 (05:36→17:10)
[2017-06-23 05:44] LABS: Hematocrit 29.7 % (37.5-50.1); Hemoglobin 9.7 g/dL (12.9-16.9); Mean Corpuscular HGB Conc 32.7 g/dL (31.6-35.5); Mean Corpuscular Hemoglobin 27.3 pg (28.0-33.3); Mean Corpuscular Volume 83.7 fL (83.0-100.0); Mean Platelet Volume 9.4 fL (9.4-12.4); Platelet Count 288 K/mcL (140-400); Red Blood Count 3.55 M/mcL (4.19-5.50)
[2017-06-23] MEDS: Insulin LISPRO 300 UNITS/3 ML VIAL SQ SCH ×3 (08:52→17:10)
[2017-06-23] MEDS: Aspirin Enteric Coated 81 MG Tablet PO SCH (08:52)
[2017-06-23] MEDS: amLODIPine 5 MG TABLET PO SCH (08:52)
--- NOTE | 2017-06-23 10:39 | Infectious Disease Consult ---
Date of Encounter: 06/23/17 Time of Encounter: 08:00 Assessment and Plan (1) Sepsis Status: Acute Assessment and plan: Patient meets two SIRS criteria + enterococcus ampicillin sensitive, vancomycin- resistant pyelonephritis. He also has nikolas-urea and is symptomatic. - Patient also has ureter stent recently placed - Antibiotics including ampicillin and fluconazole - Blood cultures collected at the time of admission results pending - Repeat urinalysis and urine culture - Monitor per protocol. Qualifiers: Sepsis type: sepsis due to unspecified organism Qualified Code(s): A41.9 - Sepsis, unspecified organism (2) Pyelonephritis Status: Acute Assessment and plan: - Last admit 06/15-06/19 for pyelonephritis requiring cystoscopy, right ureteral stent placement. - Was on IV Rocephin during his last admission 06/15-06/19 - Discharged with oral antibiotic Omnicef 300 mg by mouth twice a day - Aspirate cultures grew enterococcus ampicillin sensitive, vancomycin- resistant and nikolas - Current antibiotics Zyvox 600 mg IV every 12 hours and fluconazole 200 mg IV daily - Patient complains of fevers, chills, diaphoresis nausea or vomiting and body aches, blood cultures drawn at the time of admission concern for potential bacteremia. Will adjust antibiotics as necessary. Plan: - Ampicillin 1,000 mg every 24 hours IV (treatment duration 10-14 days.) (3) Acute kidney injury superimposed on chronic kidney disease Status: Acute Assessment and plan: Known CKD stage IV with concerns of progression to ESRD vs. ROBERT superimposed on EKG stage IV during his inpatient stay last week. Currently with permacath and undergone HD. Continues to have diminished renal function with creatinine 3.71, GFR 17 - May require further HD, management per primary team. - We will renally dose antibiotics. (4) Nikolas cystitis Status: Acute Assessment and plan: Aspirate culture growing Nikolas, patient currently symptomatic. 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 Patient was admitted with hyperglycemia. - Appropriate glucose management is important for optimal healing. - Management per primary team. 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 use Diabetes mellitus complication status: with kidney complications Diabetes mellitus complication detail: with chronic kidney disease Chronic kidney disease stage: stage 4 (severe) Qualified Code(s): E11.22 - Type 2 diabetes mellitus with diabetic chronic kidney disease; N18.4 - Chronic kidney disease, stage 4 (severe); N18.4 - Chronic kidney disease, stage 4 (severe); N18.4 - Chronic kidney disease, stage 4 (severe); N18.4 - Chronic kidney disease, stage 4 (severe); Z79.4 - intermediate frame tender (current) use of insulin; Z79.4 - care home (current) use of insulin; Z79.4 - intermediate frame tender (current) use of insulin; Z79.4 - intermediate frame tender (current) use of insulin Infectious Disease HPI - Data of Consult Consult date: 06/23/17 Requesting Physician: Lex Salazar MD Primary Care Provider: Jacobo Booker - Consult Narrative Reason for consult: Management of VRE UTI History of present illness: Mr. Hernandez 52 yo male was admitted after coming to the Emergency department at his physicians request. Mr. Hernandez was admitted on 06/15/2017 after presenting to the emergency room with right flank pain starting 3 days prior, fevers, chills, nausea ,vomiting and was found to have right-sided hydronephrosis, pyelonephritis, ROBERT superimposed on his CKD with known poorly controlled type 2 diabetes and neurogenic bladder requiring frequent straight catheterization. He was seen by urology who performed a cystoscopy, right retrograde pyelogram, right ureteral stent placement. An aspirate removed significantly infected urine which was quite cloudy and purulent. A 6 Danish by 26cm JJ stent was then placed. The aspirate was then sent for culture. He was seen by nephrology who found his CKD stage IV had progressed to end-stage renal disease versus acute on chronic kidney injury and a permacath was placed for temporary HD. He underwent HD during inpatient stay 3 and one episode of outpatient dialysis prior to current admission. He states that prior to discharge she had improvement in his fevers, chills, nausea vomiting but after discharge she had recurrence of these symptoms despite taking his oral antibiotic Omnicef which she was discharged with. He was called and informed that his aspirate culture grew Nikolas and VRE, not covered by his current oral antibiotics in that he should return to the emergency department for further evaluation and treatment. Upon admission he was started on Zyvox for VRE treatment and fluconazole for treatment. Infectious disease was consult for treatment of VRE UTI. Significant Past Medical History: Uncontrolled type 2 diabetes, CKD stage IV recently started hemodialysis (possibly temporary), neurogenic bladder with frequent straight catheterization, pelvic gangrene requiring debridement 3 years ago at [facility], scrotal abscess 2 years ago requiring drainage- organisms unknown at this time. PSH: Cholecystectomy, surgical removal of pelvic gangrene, I&D of scrotal abscess Past social history: Denies smoking, alcohol use or current or previous drug use. Current Vitals: Temp 98.9, heart rate 83, respirations 16, blood pressure 129/78 , oxygen saturation is 96% room air Laboratory results: WBC 11.5, hemoglobin 10.3, HCT 32.1, platelets 292, INR 1.2 , sodium 135, potassium 4.0, chloride 95, bicarbonate 27, BUN 29, creatinine 3.71, GFR 17, glucose 299, alkaline phosphatase 116, troponin 0.04, urinalysis demonstrates glucose urea, proteinuria with an elevated specific gravity in a patient on dialysis. CC: Lex Salazar MD Past Med Surg Social Fam HX - Past Medical History Medical history: diabetes, dialysis, hypertension, renal disease Psychiatric history: anxiety - Past Surgical History Surgical History: cholecystectomy - Social History Smoking Status: Never smoker Smokeless Tobacco Status: No Alcohol use: none Drug use: none - Family History Mother Living Status: Hx Family Cardiac Disorders: Yes (stroke) Hx Family Respiratory Disorders: Yes Hx Family Endocrine Disorder: Yes (DM) Father Living Status: Hx Family Cardiac Disorders: Yes (stent) Hx Family Cancer: Yes Hx Family Endocrine Disorder: Yes (DM) Infectious Disease-CN:Meds Aspirin Enteric Coated [Aspirin EC] 81 mg PO DAILY 06/15/17 [History] Insulin ASPART [Novolog Flexpen] 10 units SQ BID 06/15/17 [History] Insulin ASPART [Novolog Flexpen] 15 units SQ 1200 06/15/17 [History] Lisinopril [Zestril] 10 mg PO DAILY 06/15/17 [History] Cholecalciferol (D-3) [Vitamin D] 1,000 unit PO DAILY #30 tablet 06/19/17 [Rx] Insulin Glargine,Hum.rec.anlog [Lantus Solostar] 25 units SQ HS #0 06/19/17 [Rx] amLODIPine [Norvasc] 10 mg PO DAILY #60 tablet 06/19/17 [Rx] Ondansetron [Zofran ODT] 8 mg SL Q4HR 7 Days #42 tab.rapdis 06/20/17 [Rx] 3 Allergy/AdvReac Type Severity Reaction Status Date / Time No Known Allergies Allergy Verified 06/23/17 09:33 - Constitutional Constitutional: Present: chills, excessive sweating, fatigue, fever(s). Absent : headache(s) - EENT Eyes: Absent: blurry vision Nose, mouth and throat: Absent: neck pain, sore throat - Cardiovascular Cardiovascular: Absent: chest pain, radiating pain, rapid heart rate, slow heart rate - Respiratory Respiratory: Absent: cough, dyspnea, wheezing - Gastrointestinal Gastrointestinal: Present: abdominal pain, nausea, vomiting. Absent: constipation, diarrhea - Genitourinary Genitourinary: difficulty urinating, urinary hesitancy, other (neurogenic bladder) - Musculoskeletal Musculoskeletal: Present: muscle cramps Exam - Constitutional Vitals: Temp Pulse Resp BP Pulse Ox 98.9 F 83 16 129/78 96 06/23/17 06:41 06/23/17 06:41 06/23/17 06:41 06/23/17 06:41 06/23/17 06:41 Exam: General: Patient alert, awake, oriented 3, interactive, diaphoretic, acutely ill HEENT: Normocephalic, atraumatic, pupils equal reactive to light, , oral mucosa moist, uvula midline, neck supple trachea midline no palpable lymphadenopathy, no thyromegaly. Chest: Symmetric bilateral correlating with respiratory effort, effort nonlabored. Cardiac: Regular rate and rhythm, positive S1 and S2. Respiratory: Clear to auscultation all lung robles Abdomen: Soft, tenderness to palpation of the right lower quadrant and right flank., positive bowel sounds Extremities: Symmetric bilateral, bilateral lower extremities wrapped with Perez bandages covering healing lower extremity wounds Infectious Disease CN: Results - Labs CBC & Chem 7: 06/23/17 05:23 06/23/17 00:17 Consult Discharge Plan - Plan Referrals: Miya Aden DO [Primary Care Provider] - - Attending Attestation I examined this patient and my medical decision-making was reviewed with the Resident Physician. I agree with the documented findings, disposition and treatment plan as described except to the extent set forth below. This is an addendum to original report dictated by resident physician. Please refer to residents note for full detail. Patient is a 52-year-old gentleman who came in to [facility] today sent by her PCP for UTI with vancomycin resistant enterococcus and Nikolas. We are consulted to make antibiotic recommendations. Patient with past medical history mentioned below including diabetes mellitus type 2, chronic kidney disease at neurogenic bladder requiring straight catheterization who apparently was admitted to [facility] on June 15 with right flank pain. Was found to have right-sided hydronephrosis and pyelonephritis acute kidney injury. Patient underwent a cystoscopy with ureteral stent placement on June 16 of this year. Intra-Op cultures grew Nikolas albicans and enterococcus that is susceptible to ampicillin and linezolid but resistant to vancomycin. Patient was started empirically on Rocephin and discharged prior to the cultures [employer] on cefdinir 300 mg by mouth twice a day 10 days. Patient was admitted, started on Zyvox and Diflucan were consulted to evaluate the patient and make further recommendations. Currently patient is comfortable lying in bed. He states that he feels better since been here. At this point we will DC Zyvox. We will start ampicillin and dose adjust based on creatinine clearance. DC Diflucan 200 mg daily and give 100 mg extra dose after each dialysis session Duration of treatment 14 days total. Consider switching to oral Diflucan and amoxicillin on discharge.
[2017-06-23] MEDS ORDERED: Ampicillin 500 MG VIAL IVPB SCH (15:00)
[2017-06-23] MEDS: Ampicillin 1,000 MG in 0.9 % Sodium Chloride Mini Bag 100 ML IVPB SCH (15:50)
--- NOTE | 2017-06-23 16:11 | Internal Med Progress Note ---
Date of Encounter: 06/23/17 Time of Encounter: 13:00 - Assessment and plan (1) Sepsis Current Visit: No Status: Acute Assessment and plan: He does meet sepsis criteria with source of as UTTI / Recent Pyelo with VRE and Leukocytosis Blood cx ordered in the ER Reviewed Renal aspiration cx from last hospitalization showed VRE - Ampicillin sensitive Talked to ID, recommend Ampicillin IV abx Renally doses abx may need IV abx will check ESR and CRP in AM will f/u on Urine cx Qualifiers: Sepsis type: sepsis due to unspecified organism Qualified Code(s): A41.9 - Sepsis, unspecified organism (2) Pyelonephritis Current Visit: No Status: Acute Assessment and plan: CT of abd from 06/20/17 showed Rt nephrolithiasis + Rt pyelo He had Rt ureter stent placement and cystoscopy last week His renal aspirate came back as VRE cont Ampicillin (3) Acute kidney injury superimposed on chronic kidney disease Current Visit: No Status: Acute Assessment and plan: He did have CKD-5 Required HD last hospitalization Nephro consulted Nephro suggested cont HD for now (4) Therese cystitis Current Visit: Yes Status: Acute Assessment and plan: on Fluconazole (5) Diabetes Current Visit: Yes Status: Chronic Assessment and plan: HbA1C 11.6 from 06/01/17 Fairly controlled BS Started him on Levemir 20 U BID Cont ISS Medium range Qualifiers: Diabetes mellitus type: type 2 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 Diabetes mellitus complication status: with kidney complications Diabetes mellitus complication detail: with chronic kidney disease Chronic kidney disease stage: stage 4 (severe) Qualified Code(s): E11.22 - Type 2 diabetes mellitus with diabetic chronic kidney disease; N18.4 - Chronic kidney disease, stage 4 (severe); N18.4 - Chronic kidney disease, stage 4 (severe); N18.4 - Chronic kidney disease, stage 4 (severe); N18.4 - Chronic kidney disease, stage 4 (severe); Z79.4 - intermodal truck driver (current) use of insulin; Z79.4 - intermodal truck driver (current) use of insulin; Z79.4 - skilled nursing (current) use of insulin; Z79.4 - skilled nursing (current) use of insulin (6) Venous stasis ulcer Current Visit: Yes Status: Chronic Assessment and plan: Cont local wound care and daily dressing need to f/u with wound care as an out pt Qualifiers: Venous stasis ulcer site: other part of lower leg Varicose vein presence: without varicose veins Laterality: left Non-pressure ulcer stage: limited to breakdown of skin Qualified Code(s): I87.2 - Venous insufficiency (chronic ) (peripheral); L97.821 - Non-pressure chronic ulcer of other part of left lower leg limited to breakdown of skin; L97.821 - Non-pressure chronic ulcer of other part of left lower leg limited to breakdown of skin; L97.821 - Non- pressure chronic ulcer of other part of left lower leg limited to breakdown of skin; L97.821 - Non-pressure chronic ulcer of other part of left lower leg limited to breakdown of skin (7) Hypertension Current Visit: Yes Status: Chronic Assessment and plan: Resumed home meds Norvasc + Lisinopril Qualifiers: Hypertension type: essential hypertension Qualified Code(s): I10 - Essential (primary) hypertension - Subjective Interval history: Mr. Hernandez is a 52 year old male patient with a history of ESRD on HD recently startedm Rt IJ perm HD Cath, neurogenic bladder who does self cath at home was hospitalized recently with a urinary tract infection presented to the ER with supra pubic abdominal pain nausea and fever. He had been discharged recently with Omnicef. However his urine culture is growing VRE. As such he was asked to come back to the ER for further evaluation.He reports that his been having fever and chills all over and increase abdominal pain radiating to his back. He does have chronic leg ulcers too. Pt was admitted in the hospital and started him on empirical abx Zyvox. He is alert, awake and o x 3. Denied any CP / SOB. No N/V. Tolerating PO intake well - Constitutional Vitals: Temp Pulse Resp BP Pulse Ox 98.7 F 73 16 107/68 98 06/23/17 14:19 06/23/17 14:19 06/23/17 14:19 06/23/17 14:19 06/23/17 14:19 General appearance: Present: A&O X 3, obese, answers questions appropriately - Head Head exam: Present: atraumatic, normal inspection - Neck Neck exam general surgery: Present: supple - Respiratory Respiratory exam: Present: decreased breath sounds. Absent: rales, respiratory distress, rhonchi, wheezes - Cardiovascular Cardiovascular exam: Present: RRR, +S1, +S2. Absent: tachycardia - GI/Abdominal GI/Abdominal exam: Present: normal bowel sounds, soft. Absent: rebound, rigid, tenderness - Extremities Exam Extremities exam: Present: pedal edema. Absent: calf tenderness, tenderness Additional comments: Dressing over both legs with ADE wraps on. - Back Exam Back exam: Absent: CVA tenderness (L), CVA tenderness (R) - Neurological Exam Neurological exam: Present: alert, oriented X3 - Psychiatric Psychiatric exam: Present: depressed Internal Medicine: Result - Labs CBC & Chem 7: 06/23/17 05:23 06/23/17 00:17 Labs: Short CBC 06/23/17 Range/Units 05:23 WBC 11.0 (4.3-11.1) K/mcL Hgb 9.7 L (12.9-16.9) g/dL Hct 29.7 L (37.5-50.1) % Plt Count 288 (140-400) K/mcL - ABG Interpretation ABG results: PT/INR, D-dimer PT 13.4 Seconds (9.4-12.1) H 06/23/17 00:17 Consult Discharge Plan - Plan Referrals: Miya Aden DO [Primary Care Provider] -
--- NOTE | 2017-06-23 17:47 | Urology - Consult Note ---
Date of Encounter: 06/23/17 Time of Encounter: 17:43 - Assessment and Plan (1) Urinary tract infection Current Visit: Yes Status: Acute Assessment and plan: Most recent urine culture grew out vancomycin resistant enterococcus and nikolas. Patient likely has persistent bacterial colonization which is escalated into a symptomatic UTI. Based on his health including end-stage renal disease will be very difficult to completely clear his urinary tract. At this time I do not feel that his stent needs removed or replaced. It is unlikely this will clinically benefit the patient. The intermittent catheterization may not be allowing his bladder to clear and causing some infected urine to reflux up the stent. If he does not improve clinically over the next few days he may require an indwelling catheter. He stated that he would like to avoid the indwelling catheter if possible but understands it may be necessary. We will continue to follow the patient at this time but at this time I feel that culture specific antibiotics are the most appropriate therapy without surgical intervention. Qualifiers: Urinary tract infection type: acute cystitis Hematuria presence: without hematuria Qualified Code(s): N30.00 - Acute cystitis without hematuria Urology CN:HPI Consult date: 06/23/17 History of present illness: Patient known to urology service. Dr Peraza put a ureteral stent in place on June 16 for hydronephrosis and a renal stone. He is a diabetic with end- stage renal disease and a neurogenic bladder. He has been having issues with urinary tract infections and pyelonephritis. Admitted for complications from UTI/pyelonephritis/sepsis. States he has had low-grade temperatures to 100 degrees and had chills. Mild flank discomfort but not severe. He is performing intermittent catheterization 5 times per day. Past Med Surg Social Fam HX - Past Medical History Medical history: diabetes, dialysis, hypertension, renal disease Psychiatric history: anxiety - Past Surgical History Surgical History: cholecystectomy - Social History Smoking Status: Never smoker Smokeless Tobacco Status: No Alcohol use: none Drug use: none - Family History Mother Living Status: Hx Family Cardiac Disorders: Yes (stroke) Hx Family Respiratory Disorders: Yes Hx Family Endocrine Disorder: Yes (DM) Father Living Status: Hx Family Cardiac Disorders: Yes (stent) Hx Family Cancer: Yes Hx Family Endocrine Disorder: Yes (DM) Medications and Allergies Aspirin Enteric Coated [Aspirin EC] 81 mg PO DAILY 06/15/17 [History] Insulin ASPART [Novolog Flexpen] 10 units SQ BID 06/15/17 [History] Insulin ASPART [Novolog Flexpen] 15 units SQ 1200 06/15/17 [History] Lisinopril [Zestril] 10 mg PO DAILY 06/15/17 [History] Cholecalciferol (D-3) [Vitamin D] 1,000 unit PO DAILY #30 tablet 06/19/17 [Rx] Insulin Glargine,Hum.rec.anlog [Lantus Solostar] 25 units SQ HS #0 06/19/17 [Rx] amLODIPine [Norvasc] 10 mg PO DAILY #60 tablet 06/19/17 [Rx] Ondansetron [Zofran ODT] 8 mg SL Q4HR 7 Days #42 tab.rapdis 06/20/17 [Rx] 3 Allergy/AdvReac Type Severity Reaction Status Date / Time No Known Allergies Allergy Verified 06/23/17 09:33 Review of Systems - Constitutional chills, fatigue, fever(s) - Genitourinary flank pain - Musculoskeletal back pain Exam Initial Vital Signs Temp Pulse Resp BP Pulse Ox 98.2 F 105 18 139/80 99 06/22/17 20:31 06/22/17 20:31 06/22/17 20:31 06/22/17 20:31 06/22/17 20:31 - General physical appearance Present: no distress, chronically ill - Eyes Present: PERRL - ENT Present: normal nares, no hearing loss - Abdomen Abdomen: Present: soft - Neurologic Absent: disoriented, confused Urology Results - Labs 06/23/17 05:23 06/23/17 00:17 Abnormal lab results RBC 3.55 M/mcL (4.19-5.50) L 06/23/17 05:23 Hgb 9.7 g/dL (12.9-16.9) L 06/23/17 05:23 Hct 29.7 % (37.5-50.1) L 06/23/17 05:23 MCH 27.3 pg (28.0-33.3) L 06/23/17 05:23 Neutrophils # 9.1 K/mcL (1.6-8.9) H 06/23/17 00:17 Nucleated RBCs/100 WBC 0.2 /100 WBC (0) H 06/23/17 00:17 PT 13.4 Seconds (9.4-12.1) H 06/23/17 00:17 Sodium 135 mEq/L (136-145) L 06/23/17 00:17 Chloride 95 mEq/L (98-107) L 06/23/17 00:17 BUN 29 mg/dL (6-20) H 06/23/17 00:17 Creatinine 3.71 mg/dL (0.70-1.30) H 06/23/17 00:17 Est GFR ( Amer) 21 (> 60) L 06/23/17 00:17 Est GFR (Non-Af Amer) 17 (> 60) L 06/23/17 00:17 Glucose 269 mg/dL (70-105) H 06/23/17 00:17 POC Glucose 299 (58-89) H 06/23/17 04:10 Calcium 8.1 mg/dL (8.6-10.3) L 06/23/17 00:17 Alkaline Phosphatase 116 Units/L (34-104) H 06/23/17 00:17 Troponin I 0.04 ng/mL (< 0.04) H* 06/23/17 00:17 Albumin 2.9 g/dL (3.5-5.7) L 06/23/17 00:17 Globulin 4.5 g/dL (2.4-3.5) H 06/23/17 00:17 Albumin/Globulin Ratio 0.6 (1.1-2.2) L 06/23/17 00:17 Urine Clarity Cloudy (Clear) A 06/23/17 00:29 Ur Specific [place] 1.028 (1.010-1.025) H 06/23/17 00:29 Urine Protein >=1000 mg/dL (Neg-Trace) H 06/23/17 00:29 Urine Glucose (UA) >=1000 mg/dL (Normal) H 06/23/17 00:29 Urine Ketones Trace mg/dL (Negative) H 06/23/17 00:29 Urine Blood Trace (Negative) H 06/23/17 00:29 Ur Leukocyte Esterase Small (Negative) H 06/23/17 00:29 Urine Microscopic RBC 5-15 per hpf (0-3) H 06/23/17 00:29 Urine Microscopic WBC 50-100 per hpf (0-3) H 06/23/17 00:29 Ur Squamous Epith Cells Many per lpf (None-Few) H 06/23/17 00:29 All other labs normal. Consult Discharge Plan - Plan Referrals: Miya Aden DO [Primary Care Provider] -
--- NOTE | 2017-06-23 17:52 | Electrocardiograph Report ---
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
[2017-06-23] MEDS ORDERED: Insulin LISPRO 300 UNITS/3 ML VIAL SQ SCH (21:00)
[2017-06-23] MEDS ORDERED: Insulin DETEMIR 100 UNIT/ML X5UNITS SQ SCH (21:00)
[2017-06-23] MEDS: Insulin DETEMIR 100 UNIT/ML X5UNITS SQ SCH (21:47)
[2017-06-24 01:14] LABS: Bilirubin,Urine Negative (Negative); Blood,Urine Moderate (Negative); Clarity,Urine Turbid (Clear); Color,Urine Yellow (Yellow); Glucose,Urine (UA) 250 mg/dL (Normal); Ketones,Urine Negative (Negative); Leukocyte Esterase,Urine Large (Negative); Nitrite,Urine Negative (Negative); PH,Urine 7.5 pH Units (5.0-8.0); Protein,Urine >=300 mg/dL (Neg-Trace); Specific Gravity,Urine 1.015 (1.010-1.025); Urobilinogen,Urine Normal (Normal)
[2017-06-24 01:17] LABS: RBC,Urine 15-30 per hpf (0-3); Squamous Epithelial Cell,Urine Many per lpf (None-Few); WBC,Urine TNTC per hpf (0-3)
[2017-06-24 01:33] LABS: Bacteria,Urine Few per hpf (None-Few); Hyaline Casts,Urine None Seen per lpf (None-Few); Mucus,Urine Moderate (Few); Yeast,Urine Many per hpf (None Seen)
[2017-06-24] MEDS: Ondansetron ODT 4 MG TAB.RAPDIS SL SCH ×5 (04:00→20:08)
[2017-06-24] MEDS: *HR* OxyCODONE/APAP 5/325 TABLET PO PRN ×2 (04:22→20:08)
[2017-06-24 05:57] LABS: Basophils % 0.4 %; Eosinophils # 0.2 K/mcL (0.0-0.6); Eosinophils % 2.9 %; Hematocrit 26.4 % (37.5-50.1); Hemoglobin 8.5 g/dL (12.9-16.9); Immature Granulocytes % 0.6 % (0-4); Lymphocytes # 1.1 K/mcL (0.6-4.6); Lymphocytes % 14.4 %; Mean Corpuscular HGB Conc 32.2 g/dL (31.6-35.5); Mean Corpuscular Hemoglobin 27.4 pg (28.0-33.3); Mean Corpuscular Volume 85.2 fL (83.0-100.0); Mean Platelet Volume 9.4 fL (9.4-12.4); Monocytes # 0.6 K/mcL (0.0-1.3); Monocytes % 8.1 %; Neutrophils # 5.8 K/mcL (1.6-8.9); Platelet Count 275 K/mcL (140-400); Red Cell Distribution Width 13.2 % (11.5-14.5); Segmented Neutrophils % 73.6 %
[2017-06-24 06:16] LABS: Calcium 7.7 mg/dL (8.6-10.3); Magnesium 1.6 mg/dL (1.6-2.6); Potassium 3.8 mEq/L (3.5-5.1)
[2017-06-24] MEDS: *HR* Heparin 5,000 UNIT/ML VIAL SQ SCH ×2 (06:28→17:18)
[2017-06-24] MEDS: Insulin LISPRO 300 UNITS/3 ML VIAL SQ SCH ×3 (08:06→17:28)
[2017-06-24] MEDS: Aspirin Enteric Coated 81 MG Tablet PO SCH (08:06)
[2017-06-24] MEDS: Fluconazole 100 MG/50 ML 100 MG/50 ML BAG IVPB SCH ×2 (08:09→17:20)
[2017-06-24] MEDS: Insulin DETEMIR 100 UNIT/ML X5UNITS SQ SCH ×2 (08:10→22:52)
--- NOTE | 2017-06-24 08:12 | Infectious Disease Progress No ---
Date of Encounter: 06/24/17 Time of Encounter: 08:12 - Assessment and Plan (1) Sepsis Current Visit: No Status: Acute Patient meets two SIRS criteria + enterococcus ampicillin sensitive, vancomycin- resistant pyelonephritis. He also has nikolas-urea and is symptomatic. - Patient also has ureter stent recently placed - Antibiotics including ampicillin and fluconazole - Blood cultures collected at the time of admission results pending - Repeat urinalysis demonstrates turbid urine with greater than 300 urine protein, 250 urine glucose, moderate urine blood, leukocyte esterase large, microscopic rbc's 15-30, many squamous cells and TNTC John scopic WBC, many urine yeast, urine mucus. - Monitor per protocol. - Urology consult note reviewed, at this time patient will not have stents removed. Qualifiers: Qualified Code(s): A41.9 - Sepsis, unspecified organism (2) Pyelonephritis Current Visit: No Status: Acute - Last admit 06/15-06/19 for pyelonephritis requiring cystoscopy, right ureteral stent placement. - Was on IV Rocephin during his last admission 06/15-06/19 - Discharged with oral antibiotic Omnicef 300 mg by mouth twice a day - Aspirate cultures grew enterococcus ampicillin sensitive, vancomycin- resistant and nikolas - Current current admission was started on antibiotics Zyvox 600 mg IV every 12 hours and fluconazole 200 mg IV daily - Patient complains of fevers, chills, diaphoresis nausea or vomiting and body aches, blood cultures drawn at the time of admission concern for potential bacteremia. Will adjust antibiotics as necessary. Plan: - Ampicillin 1,000 mg every 24 hours IV (treatment duration 10-14 days.) Day#2 (3) Acute kidney injury superimposed on chronic kidney disease Current Visit: No Status: Acute Known CKD stage IV with concerns of progression to ESRD vs. ROBERT superimposed on EKG stage IV during his inpatient stay last week. Currently with permacath and undergone HD. Continues to have diminished renal function with creatinine 3.71, GFR 17 ( calculated creatinine clearance 23, pt on dialysis) - May require further HD, management per primary team. - We will renally dose antibiotics. (4) Nikolas cystitis Current Visit: Yes Status: Acute Aspirate culture growing Nikolas, patient currently symptomatic. 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 Patient was admitted with hyperglycemia. - Appropriate glucose management is important for optimal healing. - Management per primary team. Qualifiers: Qualified Code(s): E11.22 - Type 2 diabetes mellitus with diabetic chronic kidney disease; N18.4 - Chronic kidney disease, stage 4 (severe); N18.4 - Chronic kidney disease, stage 4 (severe); N18.4 - Chronic kidney disease, stage 4 (severe); N18.4 - Chronic kidney disease, stage 4 (severe); Z79.4 - terminal operations manager (current) use of insulin; Z79.4 - jail (current) use of insulin; Z79.4 - terminal operations manager (current) use of insulin; Z79.4 - jail (current) use of insulin - Subjective Interval history: Mr. Hernandez 52-year-old males and seen evaluated patient bedside this morning. He is alert awake interactive and in no acute distress. He denies any further chills, fevers, diaphoresis, body aches. He is tolerating oral intake with minimal nausea. He has no other complaints and feels that his right lower abdomen discomfort and right flank pain are significantly improved. Overall he is feeling much better. No further questions at this time. Infect Dis PN-Objective Data - Labs CBC & Chem 7: 06/24/17 05:05 06/24/17 05:05 Labs: Laboratory Results - last 24 hr 06/24/17 06/24/17 06/24/17 00:53 05:05 05:05 WBC 7.9 RBC 3.10 L Hgb 8.5 L Hct 26.4 L MCV 85.2 MCH 27.4 L MCHC 32.2 RDW 13.2 Plt Count 275 MPV 9.4 Immature Gran % 0.6 Seg Neutrophils % 73.6 Lymphocytes % 14.4 Monocytes % 8.1 Eosinophils % 2.9 Basophils % 0.4 Neutrophils # 5.8 Lymphocytes # 1.1 Monocytes # 0.6 Eosinophils # 0.2 Basophils # 0.0 Sodium 136 Potassium 3.8 Chloride 100 Carbon Dioxide 26 BUN 37 H Creatinine 4.58 H Est GFR ( Amer) 16 L Est GFR (Non-Af Amer) 14 L BUN/Creatinine Ratio 8 Glucose 228 H Calculated Osmolality 298 Calcium 7.7 L Magnesium 1.6 Urine Color Yellow Urine Clarity Turbid A Urine pH 7.5 Ur Specific [place] 1.015 Urine Protein >=300 H Urine Glucose (UA) 250 H Urine Ketones Negative Urine Blood Moderate H Urine Nitrite Negative Urine Bilirubin Negative Urine Urobilinogen Normal Ur Leukocyte Esterase Large H Urine Microscopic RBC 15-30 H Urine Microscopic WBC TNTC H Ur Squamous Epith Cells Many H Urine Bacteria Few Hyaline Casts None Seen Urine Mucus Moderate H Urine Yeast Many H Ur Culture Indicated? NO. Cultures: Serology 06/24/17 Range/Units 00:53 Urine Color Yellow (Yellow) Urine Clarity Turbid A (Clear) Urine pH 7.5 (5.0-8.0) pH Units Ur Specific [place] 1.015 (1.010-1.025) Urine Protein >=300 H (Neg-Trace) mg/dL Urine Glucose (UA) 250 H (Normal) mg/dL Urine Ketones Negative (Negative) mg/dL Urine Blood Moderate H (Negative) Urine Nitrite Negative (Negative) Urine Bilirubin Negative (Negative) Urine Urobilinogen Normal (Normal) mg/dL Ur Leukocyte Esterase Large H (Negative) Urine Microscopic RBC 15-30 H (0-3) per hpf Urine Microscopic WBC TNTC H (0-3) per hpf Ur Squamous Epith Cells Many H (None-Few) per lpf Urine Bacteria Few (None-Few) per hpf Hyaline Casts None Seen (None-Few) per lpf Urine Mucus Moderate H (Few) Urine Yeast Many H (None Seen) per hpf Ur Culture Indicated? NO. (NO) Exam - Constitutional Vitals: Temp Pulse Resp BP Pulse Ox 97.9 F 64 17 116/62 95 06/24/17 06:45 06/24/17 06:45 06/24/17 06:45 06/24/17 06:45 06/24/17 06:45 - Head Head exam: Present: atraumatic, normocephalic - ENT ENT exam: Present: mucous membranes moist - Respiratory Respiratory exam: Present: CTAB - Cardiovascular Cardiovascular exam: Present: RRR, +S1, +S2 - GI/Abdominal GI/Abdominal exam: Present: normal bowel sounds, soft - Extremities Exam Additional comments: Symmetric bilateral, bilateral lower extremities wrapped with Perez bandages covering healing lower extremity wounds Consult Discharge Plan - Plan Referrals: Miya Aden DO [Primary Care Provider] - - Attending Attestation I examined this patient and my medical decision-making was reviewed with the Resident Physician. I agree with the documented findings, disposition and treatment plan as described except to the extent set forth below.
[2017-06-24] MEDS ORDERED: Fluconazole 200 MG/100 ML 200 MG/100 ML BAG IVPB SCH (09:00)
[2017-06-24] MEDS ORDERED: 0.9 % Sodium Chloride 250 ML IVC PRN (10:07)
[2017-06-24] MEDS ORDERED: *HR* Heparin 10,000 UNIT/10 ML VIAL IV PRN (10:07)
[2017-06-24] MEDS ORDERED: 0.9 % Sodium Chloride 1,000 ML PRIME SCH (10:15)
[2017-06-24] MEDS: amLODIPine 5 MG TABLET PO SCH ×3 (11:28→17:26)
--- NOTE | 2017-06-24 11:47 | Internal Medicine Consult Note ---
Date of Encounter: 06/24/17 Time of Encounter: 11:46 Internal Medicine - CN: HPI - Data of Consult Requesting Physician: Lex Salazar MD - Consult Narrative History of present illness: Mr. Hernandez is a 52 year old male Past Med Surg Social Fam HX - Past Medical History Medical history: diabetes, dialysis, hypertension, renal disease Psychiatric history: anxiety - Past Surgical History Surgical History: cholecystectomy - Social History Smoking Status: Never smoker Smokeless Tobacco Status: No Alcohol use: none Drug use: none - Family History Mother Living Status: Hx Family Cardiac Disorders: Yes (stroke) Hx Family Respiratory Disorders: Yes Hx Family Endocrine Disorder: Yes (DM) Father Living Status: Hx Family Cardiac Disorders: Yes (stent) Hx Family Cancer: Yes Hx Family Endocrine Disorder: Yes (DM) Internal Medicine - CN: Meds Aspirin Enteric Coated [Aspirin EC] 81 mg PO DAILY 06/15/17 [History] Insulin ASPART [Novolog Flexpen] 10 units SQ BID 06/15/17 [History] Insulin ASPART [Novolog Flexpen] 15 units SQ 1200 06/15/17 [History] Lisinopril [Zestril] 10 mg PO DAILY 06/15/17 [History] Cholecalciferol (D-3) [Vitamin D] 1,000 unit PO DAILY #30 tablet 06/19/17 [Rx] Insulin Glargine,Hum.rec.anlog [Lantus Solostar] 25 units SQ HS #0 06/19/17 [Rx] amLODIPine [Norvasc] 10 mg PO DAILY #60 tablet 06/19/17 [Rx] Ondansetron [Zofran ODT] 8 mg SL Q4HR 7 Days #42 tab.rapdis 06/20/17 [Rx] 3 Allergy/AdvReac Type Severity Reaction Status Date / Time No Known Allergies Allergy Verified 06/23/17 09:33 Internal Medicine - CN: Exam - Constitutional Vitals: Temp Pulse Resp BP Pulse Ox 98.3 F 72 18 119/70 95 06/24/17 11:11 06/24/17 11:11 06/24/17 11:11 06/24/17 11:11 06/24/17 11:11 Internal Medicine - CN: Reslt - Labs CBC & Chem 7: 06/24/17 05:05 06/24/17 05:05 Labs: Short CBC 06/24/17 Range/Units 05:05 WBC 7.9 (4.3-11.1) K/mcL Hgb 8.5 L (12.9-16.9) g/dL Hct 26.4 L (37.5-50.1) % Plt Count 275 (140-400) K/mcL Neutrophils # 5.8 (1.6-8.9) K/mcL BMP 06/24/17 05:05 Sodium 136 Potassium 3.8 Chloride 100 Carbon Dioxide 26 BUN 37 H Creatinine 4.58 H Glucose 228 H Calcium 7.7 L Urine 06/24/17 Range/Units 00:53 Urine Color Yellow (Yellow) Urine Clarity Turbid A (Clear) Urine pH 7.5 (5.0-8.0) pH Units Ur Specific [place] 1.015 (1.010-1.025) Urine Protein >=300 H (Neg-Trace) mg/dL Urine Glucose (UA) 250 H (Normal) mg/dL - ABG Interpretation ABG results: PT/INR, D-dimer PT 13.4 Seconds (9.4-12.1) H 06/23/17 00:17 Consult Discharge Plan - Plan Referrals: Miya Aden DO [Primary Care Provider] -
[2017-06-24] MEDS ORDERED: Insulin LISPRO 300 UNITS/3 ML VIAL SQ SCH (12:32)
--- NOTE | 2017-06-24 13:02 | Nephrology Consult Note ---
<Tyrone Marquez - Last Filed: 06/24/17 14:23> Date of Encounter: 06/24/17 Time of Encounter: 13:02 Assessment and Plan (1) Acute kidney injury superimposed on chronic kidney disease Status: Acute Patient has had known CKD 4 with increase in Cr on this admission. May possibly be in ESRD. Patient had RIJ placed on last admission and received HD on Thursday. Currently BP is 146/91, has produced 0.9 L of Urine today, and electrolytes are stable. Cr has increased from 3.71 to 4.58(today) - Orders have been placed for HD - if possible avoid nephrotoxins - Renal Diet (2) Therese cystitis Status: Acute per managment of primary team (3) Diabetes Status: Chronic per management of primary team. 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 Qualifiers: Sepsis type: sepsis due to unspecified organism Qualified Code(s): A41.9 - Sepsis, unspecified organism History of Present Illness - Reason for Consult Chronic Kidney Disease Requesting physician: Lex Salazar - Chief Complaint n/v, flank pain - History of Present Illness Mr Hernandez is a 52 yo M who was discharged last thursday for renal failure in which he had a R ureteral stent placed and cystoscopy performed. Patient requested to have cath removed and declined to stay over the weekend for further monitoring. Patient was then seen in the ED, discharged from the ED, then asked to return when his urine cultures grew VRE and yeast. Patients main complaints are nausea, vomiting, anorexia and right flank pain. He also reports subjective fever. Past Med Surg Social Fam HX - Past Medical History Medical history: diabetes, dialysis, hypertension, renal disease Psychiatric history: anxiety - Past Surgical History Surgical History: cholecystectomy - Social History Smoking Status: Never smoker Smokeless Tobacco Status: No Alcohol use: none Drug use: none - Family History Mother Living Status: Hx Family Cardiac Disorders: Yes (stroke) Hx Family Respiratory Disorders: Yes Hx Family Endocrine Disorder: Yes (DM) Father Living Status: Hx Family Cardiac Disorders: Yes (stent) Hx Family Cancer: Yes Hx Family Endocrine Disorder: Yes (DM) Medications and Allergies Aspirin Enteric Coated [Aspirin EC] 81 mg PO DAILY 06/15/17 [History] Insulin ASPART [Novolog Flexpen] 10 units SQ BID 06/15/17 [History] Insulin ASPART [Novolog Flexpen] 15 units SQ 1200 06/15/17 [History] Lisinopril [Zestril] 10 mg PO DAILY 06/15/17 [History] Insulin Glargine,Hum.rec.anlog [Lantus Solostar] 25 units SQ HS #0 06/19/17 [Rx] Saccharomyces Boulardii [Florastor] 250 mg PO BID #30 capsule 06/25/17 [Rx] Ergocalciferol (VITAMIN D2) [Vitamin D2] 50,000 unit PO WE 07/03/17 [History] Cefdinir [Omnicef] 300 mg PO DAILY@1800 #3 capsule 07/08/17 [Rx] Metoclopramide [Reglan] 5 mg PO Q8H PRN #30 tablet 07/08/17 [Rx] Midodrine [ProAmatine] 2.5 mg PO 0800,1200,1700 #90 tablet 07/08/17 [Rx] 3 Allergy/AdvReac Type Severity Reaction Status Date / Time No Known Allergies Allergy Verified 06/23/17 09:33 Review of Systems All Systems: reviewed and no additional remarkable complaints except as stated Exam - Vital Signs Vital signs: Initial Vital Signs Temp Pulse Resp BP Pulse Ox 98.2 F 105 18 139/80 99 06/22/17 20:31 06/22/17 20:31 06/22/17 20:31 06/22/17 20:31 06/22/17 20:31 Vital Signs - Last 8 Hours Temp Pulse Resp BP Pulse Ox 06/24/17 11:11 98.3 F 72 18 119/70 95 06/24/17 06:45 97.9 F 64 17 116/62 95 Intake and Output 06/23/17 06/24/17 06/24/17 23:59 07:59 15:59 Intake Total 240 / 240 240 / 240 360 / 360 Output Total 300 / 300 500 / 500 400 / 400 Balance -60 / -60 -260 / -260 -40 / -40 Intake: Oral 240 / 240 240 / 240 360 / 360 Output: Urine 300 / 300 500 / 500 400 / 400 Other: Meal Dinner Breakfast Percent of Meal Consumed 10% 70% Weight 105.772 kg Blood Glucose* 253 200 114 Patient Weight 06/24/17 23:59 Weight 105.772 kg - General Appearance General appearance: obese, moderate distress EENT: mucous membranes dry Cardiology: regular rate, regular rhythm - Dialysis Access Dialysis Vascular Access: Venous Catheter (RIJ) Gastrointestinal: normoactive bowel sounds Neurologic: alert and oriented x3 Psychiatric: mood/affect appropriate, cooperative Results - Lab Results 06/24/17 05:05 06/24/17 05:05 Most recent lab results Calcium 7.7 mg/dL (8.6-10.3) L 06/24/17 05:05 Magnesium 1.6 mg/dL (1.6-2.6) 06/24/17 05:05 Consult Discharge Plan - Plan Referrals: Miya Aden DO [Primary Care Provider] - (web request sent on 06/25/17 ) Prescriptions: Saccharomyces Boulardii [Florastor] 250 mg PO BID #30 capsule <Dixie Chow - Last Filed: 07/09/17 16:40> Date of Encounter: 06/24/17 Exam - Vital Signs Vital signs: Initial Vital Signs Temp Pulse Resp BP Pulse Ox 98.2 F 105 18 139/80 99 06/22/17 20:31 06/22/17 20:31 06/22/17 20:31 06/22/17 20:31 06/22/17 20:31 Results - Lab Results 06/24/17 05:05 06/24/17 05:05 Most recent lab results Calcium 7.7 mg/dL (8.6-10.3) L 06/24/17 05:05 Magnesium 1.6 mg/dL (1.6-2.6) 06/24/17 05:05 - Attending Attestation I examined this patient and my medical decision-making was reviewed with the Resident Physician. I agree with the documented findings, disposition and treatment plan as described except to the extent set forth below. 52 y o male newly started on HD for ROBERT vs ESRD discharged and returning within days with nausea and vomiting with urine culture positive for VRE. renal consulted for management of renal dysfunction as today is his HD today. PE unremarkable. Will place HD orders with the dialysis nurse today with UF as tolerated.
[2017-06-24] MEDS ORDERED: 0.9 % Sodium Chloride 1,000 ML ONE (14:34)
--- NOTE | 2017-06-24 16:59 | Internal Med Progress Note ---
Date of Encounter: 06/24/17 Time of Encounter: 13:00 - Assessment and plan (1) Sepsis Current Visit: No Status: Acute Assessment and plan: He did meet sepsis criteria with source of as UTTI / Recent Pyelo with VRE and Leukocytosis Blood cx ordered in the ER - no growth so far Reviewed Renal aspiration cx from last hospitalization showed VRE - Ampicillin sensitive Cont Ampicillin IV abx 1 gm daily x 14 days # 2/14 Renally doses abx Urine cx no growth so far Qualifiers: Sepsis type: sepsis due to unspecified organism Qualified Code(s): A41.9 - Sepsis, unspecified organism (2) Acute kidney injury superimposed on chronic kidney disease Current Visit: Yes Status: Acute Assessment and plan: Does have CKD-5 HD as per nephro recommendations (3) Therese cystitis Current Visit: Yes Status: Acute Assessment and plan: on Fluconazole (4) Diabetes Current Visit: Yes Status: Chronic Assessment and plan: HbA1C 11.6 from 06/01/17 Fairly controlled BS Cont Levemir 20 U BID Cont ISS at high range Qualifiers: Diabetes mellitus type: type 2 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: with dedicated intermodal truck driver use Diabetes mellitus complication status: with kidney complications Diabetes mellitus complication detail: with chronic kidney disease Chronic kidney disease stage: stage 4 (severe) Qualified Code(s): E11.22 - Type 2 diabetes mellitus with diabetic chronic kidney disease; N18.4 - Chronic kidney disease, stage 4 (severe); N18.4 - Chronic kidney disease, stage 4 (severe); N18.4 - Chronic kidney disease, stage 4 (severe); N18.4 - Chronic kidney disease, stage 4 (severe); Z79.4 - terminal make up operator (current) use of insulin; Z79.4 - terminal make up operator (current) use of insulin; Z79.4 - [facility] (current) use of insulin; Z79.4 - terminal make up operator (current) use of insulin (5) Hypertension Current Visit: Yes Status: Chronic Assessment and plan: Resumed home meds Norvasc + Lisinopril Qualifiers: Hypertension type: essential hypertension Qualified Code(s): I10 - Essential (primary) hypertension (6) Venous stasis ulcer Current Visit: Yes Status: Chronic Assessment and plan: No open ulcers noticed Cont local wound care and daily dressing need to f/u with wound care as an out pt Qualifiers: Venous stasis ulcer site: other part of lower leg Varicose vein presence: without varicose veins Laterality: left Non-pressure ulcer stage: limited to breakdown of skin Qualified Code(s): I87.2 - Venous insufficiency (chronic ) (peripheral); L97.821 - Non-pressure chronic ulcer of other part of left lower leg limited to breakdown of skin; L97.821 - Non-pressure chronic ulcer of other part of left lower leg limited to breakdown of skin; L97.821 - Non- pressure chronic ulcer of other part of left lower leg limited to breakdown of skin; L97.821 - Non-pressure chronic ulcer of other part of left lower leg limited to breakdown of skin - Subjective Interval history: Mr. Hernandez is a 52 year old male patient with a history of ESRD on HD recently startedm Rt IJ perm HD Cath, neurogenic bladder who does self cath at home was hospitalized recently with a urinary tract infection presented to the ER with supra pubic abdominal pain nausea and fever. He had been discharged recently with Omnicef. However his urine culture is growing VRE. As such he was asked to come back to the ER for further evaluation.He reports that his been having fever and chills all over and increase abdominal pain radiating to his back. He does have chronic leg ulcers too. Pt was admitted in the hospital and started him on empirical abx Zyvox. Later switched to ampicillin He is alert, awake and o x 3. Denied any CP / SOB. No N/V. Tolerating PO intake well . No events over night - Constitutional Vitals: Temp Pulse Resp BP Pulse Ox 97.5 F L 72 18 148/94 95 06/24/17 16:27 06/24/17 11:11 06/24/17 16:27 06/24/17 16:27 06/24/17 11:11 General appearance: Present: A&O X 3, obese, answers questions appropriately - Head Head exam: Present: atraumatic, normal inspection - Neck Neck exam general surgery: Present: supple - Respiratory Respiratory exam: Present: decreased breath sounds. Absent: rales, respiratory distress, rhonchi, wheezes - Cardiovascular Cardiovascular exam: Present: RRR, +S1, +S2. Absent: tachycardia - GI/Abdominal GI/Abdominal exam: Present: normal bowel sounds, soft. Absent: rebound, rigid, tenderness - Extremities Exam Extremities exam: Present: pedal edema. Absent: calf tenderness, tenderness Additional comments: no open ulcers noticed over both legs - Back Exam Back exam: Absent: CVA tenderness (L), CVA tenderness (R) - Neurological Exam Neurological exam: Present: alert, oriented X3 - Psychiatric Psychiatric exam: Present: normal affect, normal mood Internal Medicine: Result - Labs CBC & Chem 7: 06/24/17 05:05 06/24/17 05:05 Labs: Short CBC 06/24/17 Range/Units 05:05 WBC 7.9 (4.3-11.1) K/mcL Hgb 8.5 L (12.9-16.9) g/dL Hct 26.4 L (37.5-50.1) % Plt Count 275 (140-400) K/mcL Neutrophils # 5.8 (1.6-8.9) K/mcL BMP 06/24/17 05:05 Sodium 136 Potassium 3.8 Chloride 100 Carbon Dioxide 26 BUN 37 H Creatinine 4.58 H Glucose 228 H Calcium 7.7 L Urine 06/24/17 Range/Units 00:53 Urine Color Yellow (Yellow) Urine Clarity Turbid A (Clear) Urine pH 7.5 (5.0-8.0) pH Units Ur Specific [place] 1.015 (1.010-1.025) Urine Protein >=300 H (Neg-Trace) mg/dL Urine Glucose (UA) 250 H (Normal) mg/dL - ABG Interpretation ABG results: PT/INR, D-dimer PT 13.4 Seconds (9.4-12.1) H 06/23/17 00:17 Consult Discharge Plan - Plan Referrals: Miya Aden DO [Primary Care Provider] -
[2017-06-24] MEDS: Ampicillin 1,000 MG in 0.9 % Sodium Chloride Mini Bag 100 ML IVPB SCH (17:45)
[2017-06-25] MEDS: *HR* OxyCODONE/APAP 5/325 TABLET PO PRN (02:15)
[2017-06-25] MEDS: Ondansetron ODT 4 MG TAB.RAPDIS SL SCH ×5 (02:15→15:41)
[2017-06-25] MEDS: *HR* Heparin 5,000 UNIT/ML VIAL SQ SCH (06:07)
--- NOTE | 2017-06-25 07:53 | Infectious Disease Progress No ---
Date of Encounter: 06/25/17 Time of Encounter: 07:53 - Assessment and Plan (1) Sepsis Current Visit: No Status: Acute Patient meets two SIRS criteria + enterococcus ampicillin sensitive, vancomycin- resistant pyelonephritis. He also has nikolas-urea and is symptomatic. - Patient also has ureter stent recently placed - Antibiotics including ampicillin and fluconazole - Blood cultures collected at the time of admission with no growth. - Repeat urinalysis demonstrates turbid urine with greater than 300 urine protein, 250 urine glucose, moderate urine blood, leukocyte esterase large, microscopic rbc's 15-30, many squamous cells and TNTC WBC, many urine yeast, urine mucus. - Monitor per protocol. Qualifiers: Sepsis type: sepsis due to unspecified organism Qualified Code(s): A41.9 - Sepsis, unspecified organism (2) Pyelonephritis Current Visit: No Status: Acute - Last admit 06/15-06/19 for pyelonephritis requiring cystoscopy, right ureteral stent placement. - Was on IV Rocephin during his last admission 06/15-06/19 - Discharged with oral antibiotic Omnicef 300 mg by mouth twice a day - Aspirate cultures grew enterococcus ampicillin sensitive, vancomycin- resistant and nikolas - Current current admission was started on antibiotics Zyvox 600 mg IV every 12 hours and fluconazole 200 mg IV daily - Patient complains of fevers, chills, diaphoresis nausea or vomiting and body aches, blood cultures drawn at the time of admission concern for potential bacteremia. Will adjust antibiotics as necessary. Plan: - Ampicillin 1,000 mg every 24 hours IV (treatment duration 10-14 days.) Day#3 (3) Acute kidney injury superimposed on chronic kidney disease Current Visit: Yes Status: Acute Known CKD stage IV with concerns of progression to ESRD vs. ROBERT superimposed on EKG stage IV during his inpatient stay last week. Currently with permacath and undergone HD. Continues to have diminished renal function with creatinine 4.58, GFR 16 from (calculated creatinine clearance 23, pt on dialysis) - May require further HD, management per primary team. - We will renally dose antibiotics. (4) Nikolas cystitis Current Visit: Yes Status: Acute Aspirate culture growing Nikolas, patient currently symptomatic. 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 Patient was admitted with hyperglycemia. - Appropriate glucose management is important for optimal healing. - Management per primary team. 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 use: with nursing home use Diabetes mellitus complication status: with kidney complications Diabetes mellitus complication detail: with chronic kidney disease Chronic kidney disease stage: stage 4 (severe) Qualified Code(s): E11.22 - Type 2 diabetes mellitus with diabetic chronic kidney disease; N18.4 - Chronic kidney disease, stage 4 (severe); N18.4 - Chronic kidney disease, stage 4 (severe); N18.4 - Chronic kidney disease, stage 4 (severe); N18.4 - Chronic kidney disease, stage 4 (severe); 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 Hernandez 52-year-old males and seen evaluated patient bedside this morning. He is alert awake interactive and in no acute distress. He denies any further chills, fevers, diaphoresis, body aches. Denies pain abdominal pain but does have an overall feeling of loss of energy. He is tolerating oral intake with minimal nausea. Overall he is feeling much better. No further questions at this time. Infect Dis PN-Objective Data - Labs CBC & Chem 7: 06/24/17 05:05 06/24/17 05:05 Labs: Laboratory Results - last 24 hr 06/23/17 06/23/17 06/23/17 07:55 11:42 15:57 POC Glucose 312 H 180 H 180 H 06/23/17 06/24/17 06/24/17 21:25 06:41 16:52 POC Glucose 253 H 200 H 100 H 06/24/17 21:58 POC Glucose 150 H Cultures: Serology 06/24/17 Range/Units 00:53 Urine Color Yellow (Yellow) Urine Clarity Turbid A (Clear) Urine pH 7.5 (5.0-8.0) pH Units Ur Specific [place] 1.015 (1.010-1.025) Urine Protein >=300 H (Neg-Trace) mg/dL Urine Glucose (UA) 250 H (Normal) mg/dL Urine Ketones Negative (Negative) mg/dL Urine Blood Moderate H (Negative) Urine Nitrite Negative (Negative) Urine Bilirubin Negative (Negative) Urine Urobilinogen Normal (Normal) mg/dL Ur Leukocyte Esterase Large H (Negative) Urine Microscopic RBC 15-30 H (0-3) per hpf Urine Microscopic WBC TNTC H (0-3) per hpf Ur Squamous Epith Cells Many H (None-Few) per lpf Urine Bacteria Few (None-Few) per hpf Hyaline Casts None Seen (None-Few) per lpf Urine Mucus Moderate H (Few) Urine Yeast Many H (None Seen) per hpf Ur Culture Indicated? NO. (NO) Exam - Constitutional Vitals: Temp Pulse Resp BP Pulse Ox 98 F 68 18 101/59 98 06/25/17 06:57 06/25/17 06:57 06/25/17 06:57 06/25/17 06:57 06/25/17 06:57 - Head Head exam: Present: atraumatic, normocephalic - Neck Neck exam: Present: normal inspection - Respiratory Respiratory exam: Present: CTAB Additional comments: HD poor in the right upper chest without signs of erythema or edema. - Cardiovascular Cardiovascular exam: Present: RRR, +S1, +S2 - Extremities Exam Additional comments: Symmetric bilateral, bilateral lower extremities wrapped with Perez bandages covering healing lower extremity wounds, edema bilateral lower extremities slightly improved. Consult Discharge Plan - Plan Referrals: Miya Aden DO [Primary Care Provider] - (web request sent on 06/25/17 ) Prescriptions: Ampicillin Trihydrate 500 mg PO BID #24 capsule Fluconazole [Diflucan] 100 mg PO DAILY #8 tablet Saccharomyces Boulardii [Florastor] 250 mg PO BID #30 capsule - Attending Attestation I examined this patient and my medical decision-making was reviewed with the Resident Physician. I agree with the documented findings, disposition and treatment plan as described except to the extent set forth below.
[2017-06-25] MEDS: Insulin LISPRO 300 UNITS/3 ML VIAL SQ SCH ×2 (08:41→11:51)
[2017-06-25] MEDS: Aspirin Enteric Coated 81 MG Tablet PO SCH (08:42)
[2017-06-25] MEDS: Insulin DETEMIR 100 UNIT/ML X5UNITS SQ SCH (08:43)
[2017-06-25] MEDS: Fluconazole 100 MG/50 ML 100 MG/50 ML BAG IVPB SCH (14:34)
[2017-06-25 15:35] VITALS: BP 97/69
[2017-06-25] MEDS: Ampicillin 1,000 MG in 0.9 % Sodium Chloride Mini Bag 100 ML IVPB SCH (15:41)
--- NOTE | 2017-06-25 16:03 | Discharge Summary ---
- NOTES TO OUTPATIENT PROVIDER Notes to Outpatient Provider: Please go for HD on M/W/F. Please f/u with Urologist Dr. Peraza in 1 -2 weeks. Please f/u with Infectious disease Dr. Bateman in 1-2 weeks. Please f/u with [facility] in 1-2 weeks. Continue taking PO Ampicillin for next 12 days. 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 Diabetes mellitus complication status: with kidney complications Diabetes mellitus complication detail: with chronic kidney disease Chronic kidney disease stage: stage 4 (severe) Qualified Code(s): E11.22 - Type 2 diabetes mellitus with diabetic chronic kidney disease; N18.4 - Chronic kidney disease, stage 4 (severe); N18.4 - Chronic kidney disease, stage 4 (severe); N18.4 - Chronic kidney disease, stage 4 (severe); N18.4 - Chronic kidney disease, stage 4 (severe); Z79.4 - long-term (current) use of insulin; Z79.4 - intermediate frame tender (current) use of insulin; Z79.4 - intermediate frame tender (current) use of insulin; Z79.4 - intermediate frame tender (current) use of insulin (5) Hypertension Priority: Secondary Status: Chronic Qualifiers: Hypertension type: essential hypertension Qualified Code(s): I10 - Essential (primary) hypertension (6) Venous stasis ulcer Priority: Secondary Status: Chronic Qualifiers: Venous stasis ulcer site: other part of lower leg Varicose vein presence: without varicose veins Laterality: left Non-pressure ulcer stage: limited to breakdown of skin Qualified Code(s): I87.2 - Venous insufficiency (chronic ) (peripheral); L97.821 - Non-pressure chronic ulcer of other part of left lower leg limited to breakdown of skin; L97.821 - Non-pressure chronic ulcer of other part of left lower leg limited to breakdown of skin; L97.821 - Non- pressure chronic ulcer of other part of left lower leg limited to breakdown of skin; L97.821 - Non-pressure chronic ulcer of other part of left lower leg limited to breakdown of skin Hospital course: Mr. Hernandez is a 52 year old male patient with a history of ESRD on HD recently startedm Rt IJ perm HD Cath, neurogenic bladder who does self cath at home was hospitalized recently with a urinary tract infection presented to the ER with supra pubic abdominal pain nausea and fever. He had been discharged recently with Omnicef. However his urine culture is growing VRE. As such he was asked to come back to the ER for further evaluation.He reports that his been having fever and chills all over and increase abdominal pain radiating to his back. He does have chronic leg ulcers too. Pt was admitted in the hospital and started him on empirical abx Zyvox. Later switched to ampicillin IV and Fluconzaole. Pt symptoms started improving slowly. He remained a febrile, his WBC WNL. Pt was evaluated by Urologist and did not recommend to continue straight cath as before and no other interventions. He was seen by Nephrology and suggested to do HD M/W/F regularly. Pt was evaluated by ID , since his symptoms improved with Ampicilin and his blood cx showed no growth in 2days, so ID suggested to d/c pt home on PO Abx Ampicillin. So will d/c him home in stable condition today. - Time Spent with Patient Total time spent providing and/or coordinating discharge services: - Discharge Medications Prescriptions: Ampicillin Trihydrate 500 mg PO BID #24 capsule Saccharomyces Boulardii [Florastor] 250 mg PO BID #30 capsule Home Medications: Aspirin Enteric Coated [Aspirin EC] 81 mg PO DAILY 06/15/17 [History] Insulin ASPART [Novolog Flexpen] 10 units SQ BID 06/15/17 [History] Insulin ASPART [Novolog Flexpen] 15 units SQ 1200 06/15/17 [History] Lisinopril [Zestril] 10 mg PO DAILY 06/15/17 [History] Cholecalciferol (D-3) [Vitamin D] 1,000 unit PO DAILY #30 tablet 06/19/17 [Rx] Insulin Glargine,Hum.rec.anlog [Lantus Solostar] 25 units SQ HS #0 06/19/17 [Rx] amLODIPine [Norvasc] 10 mg PO DAILY #60 tablet 06/19/17 [Rx] Ondansetron [Zofran ODT] 8 mg SL Q4HR 7 Days #42 tab.rapdis 06/20/17 [Rx] Ampicillin Trihydrate 500 mg PO BID #24 capsule 06/25/17 [Rx] Fluconazole [Diflucan] 100 mg PO DAILY #8 tablet 06/25/17 [Rx] Saccharomyces Boulardii [Florastor] 250 mg PO BID #30 capsule 06/25/17 [Rx] Allergies/Adverse Reactions: 3 Allergy/AdvReac Type Severity Reaction Status Date / Time No Known Allergies Allergy Verified 06/23/17 09:33 Date of admission: 06/23/17 03:59 Primary care physician: Jacobo Booker Consults: 06/23/17 04:30 Consult to Nutrition [CONS] Routine Comment: Consulting Provider: NUTRITION Reason for Dietary Consult: MST Score Consult to Steward/Stewardess Deck [CONS] Routine Reason for SW Consult: [facility] home health 06/23/17 15:56 Consult to Nephrology [CONS] Routine Consulting Provider: Kidney Mary Jo/MARGO/MAGDALENA/JUSTICE Reason for Consult: ESRD on HD Call Completed: Yes 06/24/17 10:15 Consult to Dialysis [CONS] ONCE - Constitutional Vitals: Temp Pulse Resp BP Pulse Ox 98.1 F 87 20 97/69 96 06/25/17 15:31 06/25/17 15:31 06/25/17 15:31 06/25/17 15:31 06/25/17 15:31 General appearance: Present: A&O X 3, obese, answers questions appropriately - Head Head exam: Present: atraumatic, normal inspection - Neck Neck exam general surgery: Present: supple - Respiratory Respiratory exam: Present: decreased breath sounds. Absent: rales, respiratory distress, rhonchi, wheezes - Cardiovascular Cardiovascular exam: Present: RRR, +S1, +S2. Absent: tachycardia - GI/Abdominal GI/Abdominal exam: Present: normal bowel sounds, soft. Absent: rebound, rigid, tenderness - Extremities Exam Extremities exam: Absent: calf tenderness, pedal edema, tenderness - Back Exam Back exam: Absent: CVA tenderness (L), CVA tenderness (R) - Neurological Exam Neurological exam: Present: alert, oriented X3 - Psychiatric Psychiatric exam: Present: normal affect, normal mood - Patient Status Disposition: Home Health Service Condition: Good Overall status at discharge: patient is back to baseline - Discharge Instructions Follow Up With: Miya Aden DO [Primary Care Provider] - (web request sent on 06/25/17 ) - Diet and Activity Activity: increase activity as tolerated Diet: low salt diet
--- NOTE | 2017-06-25 16:10 | Physician Discharge Referral ---
Home Health/Hosp Referral Info Transfer to: Home Health Provider in Charge Post Discharge: PCP - Diagnosis (1) Sepsis Status: Acute (2) Acute kidney injury superimposed on chronic kidney disease Status: Acute (3) Therese cystitis Status: Acute (4) Diabetes Status: Chronic (5) Hypertension Status: Chronic (6) Venous stasis ulcer Status: Chronic - Respiratory Orders Smoking Cessation: Smoking cessation has been advised. For more information, call the [place] Tobacco Quit Line at 9-083-BPZJ-NOW. - Services Needed Following services are medically necessary services: Nursing - Transfer Medications Prescriptions: Ampicillin Trihydrate 500 mg PO BID #24 capsule Fluconazole [Diflucan] 100 mg PO DAILY #8 tablet Saccharomyces Boulardii [Florastor] 250 mg PO BID #30 capsule Home Medications: Aspirin Enteric Coated [Aspirin EC] 81 mg PO DAILY 06/15/17 [History] Insulin ASPART [Novolog Flexpen] 10 units SQ BID 06/15/17 [History] Insulin ASPART [Novolog Flexpen] 15 units SQ 1200 06/15/17 [History] Lisinopril [Zestril] 10 mg PO DAILY 06/15/17 [History] Cholecalciferol (D-3) [Vitamin D] 1,000 unit PO DAILY #30 tablet 06/19/17 [Rx] Insulin Glargine,Hum.rec.anlog [Lantus Solostar] 25 units SQ HS #0 06/19/17 [Rx] amLODIPine [Norvasc] 10 mg PO DAILY #60 tablet 06/19/17 [Rx] Ondansetron [Zofran ODT] 8 mg SL Q4HR 7 Days #42 tab.rapdis 06/20/17 [Rx] Ampicillin Trihydrate 500 mg PO BID #24 capsule 06/25/17 [Rx] Fluconazole [Diflucan] 100 mg PO DAILY #8 tablet 06/25/17 [Rx] Saccharomyces Boulardii [Florastor] 250 mg PO BID #30 capsule 06/25/17 [Rx] Allergies/Adverse Reactions: 3 Allergy/AdvReac Type Severity Reaction Status Date / Time No Known Allergies Allergy Verified 06/23/17 09:33 Certification: Further, I certify that my clinical findings support that this patient is homebound (i.e. absences from home require considerable and taxing effort and are for medical reasons or scientologist services or infrequently or short duration when for other reasons) because: Homebound Reason: Patient requires assistance of a person or device to safely leave home Attestation: My signature below is to certify that this patient is under my care and that I, or nurse practitioner, or a physician's assistant professor of geography working with me, has a face-to -face encounter with this patient.
== END 2017-06-25 17:11 | disposition home health service (06) | DRG 871 ==
LOC: EMEROO 20:29 → 2ANU 20:29
PROVIDERS: ADMIT Pediatrics; ATTEND Family Medicine

== ENCOUNTER 2017-07-03 19:29 | Inpatient (IN) ==
[2017-07-03] MEDS ORDERED: 0.9 % Sodium Chloride 250 ML IVC ONE (19:47)
--- NOTE | 2017-07-03 19:49 | Emergency Department Note ---
Disposition Clinical Impression: Delirium due to general medical condition Urinary tract infection Qualifiers: Urinary tract infection type: acute cystitis Hematuria presence: without hematuria Qualified Code(s): N30.00 - Acute cystitis without hematuria Chronic kidney disease Qualifiers: Chronic kidney disease stage: on chronic dialysis Qualified Code(s): N18.6 - End stage renal disease Disposition: Admitted As Inpatient Condition: Good Time of Disposition: 22:49 General Adult HPI - General Chief complaint: ED Altered Mental Status Time Seen by Provider: 07/03/17 19:44 Source: patient, other Limitations: altered mental status Nursing Notes Reviewed: Yes Vital Signs Reviewed: Yes - History of Present Illness HPI Narrative: Generalized weakness after dialysis today. Denies any pain. Denies any shortness of breath or chest pain." Reporting some nausea. As well as intermittent diarrhea. Pain Scale: 2 - Related Data Home Medications Medication Instructions Recorded Confirmed Aspirin Enteric Coated [Aspirin EC] 81 mg PO DAILY 06/15/17 07/03/17 Insulin ASPART [Novolog Flexpen] 10 units SQ BID 06/15/17 07/03/17 Insulin ASPART [Novolog Flexpen] 15 units SQ 1200 06/15/17 07/03/17 Lisinopril [Zestril] 10 mg PO DAILY 06/15/17 07/03/17 Ergocalciferol (VITAMIN D2) 50,000 unit PO WE 07/03/17 07/03/17 [Vitamin D2] Previous Rx's Medication Instructions Recorded Insulin Glargine,Hum.rec.anlog 25 units SQ HS #0 06/19/17 [Lantus Solostar] Ampicillin Trihydrate 500 mg PO BID #24 capsule 06/25/17 Saccharomyces Boulardii [Florastor] 250 mg PO BID #30 capsule 06/25/17 Allergies Allergy/AdvReac Type Severity Reaction Status Date / Time No Known Allergies Allergy Verified 06/23/17 09:33 All systems ED: reviewed and negative except as stated. Constitutional: Reports: fever. Denies: chills Cardiovascular: Denies: chest pain, palpitations, syncope Gastrointestinal: Reports: nausea, diarrhea. Denies: abdominal pain, vomiting Genitourinary: Denies: urgency, dysuria, frequency Integumentary: Denies: rash Neurological: Reports: weakness. Denies: headache Past Medical History - Past Medical History Attestation: Yes The following information was validated with the patient. Source: patient Medical history: Reports: diabetes, dialysis, hypertension, renal disease Surgical history: Reports: cholecystectomy Psychiatric history: Reports: anxiety - Social History Smoking Status: Never smoker Smokeless Tobacco Status: No Alcohol use: Reports: none Drug use: Reports: none Physical Exam - General Limitations: altered mental status (Patient initially would not answer many questions.) General appearance: lethargic - Head Head exam: atraumatic, normocephalic, normal inspection - Eye Eye exam: Present: normal appearance, PERRL, EOMI. Absent: scleral icterus - ENT ENT exam: normal exam, normal oropharynx, mucous membranes moist - Neck Neck exam: Present: normal inspection, full ROM, trachea midline - Chest Chest inspection: Present: normal inspection, symmetric chest wall rise. Absent : tenderness - Respiratory Respiratory exam: Present: normal lung sounds bilaterally. Absent: respiratory distress, wheezes - Cardiovascular Cardiovascular exam: Present: regular rate, normal rhythm, normal heart sounds - Abdominal Exam Abdominal exam: Present: soft, Non-Tender. Absent: distention, rigidity - Extremities Exam Extremities exam: Present: other (Patient's lower extremities are bandaged at this time.). Absent: pedal edema - Back Exam Back exam: Present: normal inspection, full ROM. Absent: tenderness - Neurological Exam Neurological exam: Present: alert, oriented X3 - Psychiatric Psychiatric exam: Present: normal affect, normal mood - Skin Skin exam: Present: warm, dry, intact, normal color Course Course Narrative: Male patient presenting to the emergency department after dialysis today. He states that he is too weak. He states that after dialysis he generally gets week however this is significantly worse than normal. He denies any pain at this time. Initially denied nausea or vomiting however he is now reporting nausea and some diarrhea. He is arousable. However it does appear tired lung sounds are clear heart tones are normal abdomen is soft nontender nondistended. He does have his bilateral lower extremities wrapped in bandages. He is mildly hypertensive today however he states he has not taken his medication due to his dialysis. He states he is not supposed to take it on dialysis days. We will get a full workup on patient. Likely admit to the hospital. - Reevaluation(s) Reevaluation #1: On reevaluation of the patient he is now conversational. His head CT was normal. Chest x-ray showed some pulmonary edema. He states that he was recently released from here. He was treated for a UTI and had a stent placed. He was on amp and fluconazole on the chart review. States that he is too weak to be able to care for himself at home. His urine does appear to still have a UTI. We will admit patient for UTI. Patient is febrile while here. I have consult to nephrology and urology. He is agreeable with this. His lactic acid is normal. Time: 22:05 - Consultations Consultation #1: Dr Hayes accepted patient in stable condition Time: 22:46 Vital Signs Temperature 101.1 F H 07/03/17 19:34 Pulse Rate 91 07/03/17 19:34 Respiratory Rate 18 07/03/17 19:34 Blood Pressure 169/92 07/03/17 19:34 O2 Sat by Pulse Oximetry 99 07/03/17 19:34 Temperature 98.5 F 07/04/17 04:18 Pulse Rate 82 07/04/17 04:18 Respiratory Rate 18 07/04/17 04:18 Blood Pressure 130/73 07/04/17 04:18 O2 Sat by Pulse Oximetry 98 07/04/17 04:18 Oxygen Delivery Oxygen Delivery Room Air Medical Decision Making - Medical Records Medical records reviewed: Yes I reviewed the patient's medical records. - Lab Data Lab results reviewed: Yes I reviewed the patient's lab results. Result diagrams: 07/04/17 05:29 07/04/17 05:29 Lab Results 07/03/17 07/03/17 07/03/17 Range/Units 19:40 19:44 19:44 WBC 9.5 (4.3-11.1) K/mcL RBC 3.48 L (4.19-5.50) M/mcL Hgb 9.5 L (12.9-16.9) g/dL Hct 30.1 L (37.5-50.1) % MCV 86.5 (83.0-100.0) fL MCH 27.3 L (28.0-33.3) pg MCHC 31.6 (31.6-35.5) g/dL RDW 13.5 (11.5-14.5) % Plt Count 315 (140-400) K/mcL MPV 8.9 L (9.4-12.4) fL Immature Gran % 0.5 (0-4) % Seg Neutrophils % 72.0 % Lymphocytes % 15.9 % Monocytes % 8.4 % Eosinophils % 2.8 % Basophils % 0.4 % Neutrophils # 6.9 (1.6-8.9) K/mcL Lymphocytes # 1.5 (0.6-4.6) K/mcL Monocytes # 0.8 (0.0-1.3) K/mcL Eosinophils # 0.3 (0.0-0.6) K/mcL Basophils # 0.0 (0.0-0.2) K/mcL Nucleated RBCs/100 WBC 0.3 H (0) /100 WBC PT 11.5 (9.4-12.1) Seconds INR 1.1 APTT 28.5 (26.0-36.0) Seconds Sodium (136-145) mEq/L Potassium (3.5-5.1) mEq/L Chloride (98-107) mEq/L Carbon Dioxide (23-29) mEq/L BUN (6-20) mg/dL Creatinine (0.70-1.30) mg/dL Est GFR ( Amer) (> 60) Est GFR (Non-Af Amer) (> 60) BUN/Creatinine Ratio (6-26) Glucose (70-105) mg/dL POC Glucose 148 H (58-89) Calculated Osmolality (280-300) Lactic Acid (0.5-2.2) mmol/L Calcium (8.6-10.3) mg/dL Total Bilirubin (0.3-1.0) mg/dL Direct Bilirubin (0.0-0.2) mg/dL Indirect Bilirubin (0.0-1.2) mg/dL AST (13-39) Units/L ALT (7-52) Units/L Alkaline Phosphatase (34-104) Units/L Ammonia (16-53) mcmol/L Troponin I (< 0.04) ng/mL Serum Total Protein (6.4-8.9) g/dL Albumin (3.5-5.7) g/dL Globulin (2.4-3.5) g/dL Albumin/Globulin Ratio (1.1-2.2) Urine Color (Yellow) Urine Clarity (Clear) Urine pH (5.0-8.0) pH Units Ur Specific [place] (1.010-1.025) Urine Protein (Neg-Trace) mg/dL Urine Glucose (UA) (Normal) mg/dL Urine Ketones (Negative) mg/dL Urine Blood (Negative) Urine Nitrite (Negative) Urine Bilirubin (Negative) Urine Urobilinogen (Normal) mg/dL Ur Leukocyte Esterase (Negative) Urine Microscopic RBC (0-3) per hpf Urine Microscopic WBC (0-3) per hpf Ur Squamous Epith Cells (None-Few) per lpf Ur Renal Epithelial Cell (None-Few) per hpf Urine Bacteria (None-Few) per hpf Hyaline Casts (None-Few) per lpf Urine Mucus (Few) Urine Yeast (None Seen) per hpf Urine Sperm Ur Culture Indicated? (NO) 07/03/17 07/03/17 07/03/17 Range/Units 19:44 20:12 20:12 WBC (4.3-11.1) K/mcL RBC (4.19-5.50) M/mcL Hgb (12.9-16.9) g/dL Hct (37.5-50.1) % MCV (83.0-100.0) fL MCH (28.0-33.3) pg MCHC (31.6-35.5) g/dL RDW (11.5-14.5) % Plt Count (140-400) K/mcL MPV (9.4-12.4) fL Immature Gran % (0-4) % Seg Neutrophils % % Lymphocytes % % Monocytes % % Eosinophils % % Basophils % % Neutrophils # (1.6-8.9) K/mcL Lymphocytes # (0.6-4.6) K/mcL Monocytes # (0.0-1.3) K/mcL Eosinophils # (0.0-0.6) K/mcL Basophils # (0.0-0.2) K/mcL Nucleated RBCs/100 WBC (0) /100 WBC PT (9.4-12.1) Seconds INR APTT (26.0-36.0) Seconds Sodium 138 (136-145) mEq/L Potassium 4.2 (3.5-5.1) mEq/L Chloride 106 (98-107) mEq/L Carbon Dioxide 25 (23-29) mEq/L BUN 26 H (6-20) mg/dL Creatinine 2.92 H (0.70-1.30) mg/dL Est GFR ( Amer) 28 L (> 60) Est GFR (Non-Af Amer) 23 L (> 60) BUN/Creatinine Ratio 9 (6-26) Glucose 148 H (70-105) mg/dL POC Glucose (58-89) Calculated Osmolality 294 (280-300) Lactic Acid 1.8 (0.5-2.2) mmol/L Calcium 7.4 L (8.6-10.3) mg/dL Total Bilirubin 0.2 L (0.3-1.0) mg/dL Direct Bilirubin 0.1 (0.0-0.2) mg/dL Indirect Bilirubin 0.1 (0.0-1.2) mg/dL AST 16 (13-39) Units/L ALT 14 (7-52) Units/L Alkaline Phosphatase 86 (34-104) Units/L Ammonia 19 (16-53) mcmol/L Troponin I 0.03 (< 0.04) ng/mL Serum Total Protein 6.7 (6.4-8.9) g/dL Albumin 2.8 L (3.5-5.7) g/dL Globulin 3.9 H (2.4-3.5) g/dL Albumin/Globulin Ratio 0.7 L (1.1-2.2) Urine Color (Yellow) Urine Clarity (Clear) Urine pH (5.0-8.0) pH Units Ur Specific [place] (1.010-1.025) Urine Protein (Neg-Trace) mg/dL Urine Glucose (UA) (Normal) mg/dL Urine Ketones (Negative) mg/dL Urine Blood (Negative) Urine Nitrite (Negative) Urine Bilirubin (Negative) Urine Urobilinogen (Normal) mg/dL Ur Leukocyte Esterase (Negative) Urine Microscopic RBC (0-3) per hpf Urine Microscopic WBC (0-3) per hpf Ur Squamous Epith Cells (None-Few) per lpf Ur Renal Epithelial Cell (None-Few) per hpf Urine Bacteria (None-Few) per hpf Hyaline Casts (None-Few) per lpf Urine Mucus (Few) Urine Yeast (None Seen) per hpf Urine Sperm Ur Culture Indicated? (NO) 07/03/17 Range/Units 21:15 WBC (4.3-11.1) K/mcL RBC (4.19-5.50) M/mcL Hgb (12.9-16.9) g/dL Hct (37.5-50.1) % MCV (83.0-100.0) fL MCH (28.0-33.3) pg MCHC (31.6-35.5) g/dL RDW (11.5-14.5) % Plt Count (140-400) K/mcL MPV (9.4-12.4) fL Immature Gran % (0-4) % Seg Neutrophils % % Lymphocytes % % Monocytes % % Eosinophils % % Basophils % % Neutrophils # (1.6-8.9) K/mcL Lymphocytes # (0.6-4.6) K/mcL Monocytes # (0.0-1.3) K/mcL Eosinophils # (0.0-0.6) K/mcL Basophils # (0.0-0.2) K/mcL Nucleated RBCs/100 WBC (0) /100 WBC PT (9.4-12.1) Seconds INR APTT (26.0-36.0) Seconds Sodium (136-145) mEq/L Potassium (3.5-5.1) mEq/L Chloride (98-107) mEq/L Carbon Dioxide (23-29) mEq/L BUN (6-20) mg/dL Creatinine (0.70-1.30) mg/dL Est GFR ( Amer) (> 60) Est GFR (Non-Af Amer) (> 60) BUN/Creatinine Ratio (6-26) Glucose (70-105) mg/dL POC Glucose (58-89) Calculated Osmolality (280-300) Lactic Acid (0.5-2.2) mmol/L Calcium (8.6-10.3) mg/dL Total Bilirubin (0.3-1.0) mg/dL Direct Bilirubin (0.0-0.2) mg/dL Indirect Bilirubin (0.0-1.2) mg/dL AST (13-39) Units/L ALT (7-52) Units/L Alkaline Phosphatase (34-104) Units/L Ammonia (16-53) mcmol/L Troponin I (< 0.04) ng/mL Serum Total Protein (6.4-8.9) g/dL Albumin (3.5-5.7) g/dL Globulin (2.4-3.5) g/dL Albumin/Globulin Ratio (1.1-2.2) Urine Color Yellow (Yellow) Urine Clarity Cloudy A (Clear) Urine pH 7.5 (5.0-8.0) pH Units Ur Specific [place] 1.018 (1.010-1.025) Urine Protein >=300 H (Neg-Trace) mg/dL Urine Glucose (UA) 250 H (Normal) mg/dL Urine Ketones Negative (Negative) mg/dL Urine Blood Moderate H (Negative) Urine Nitrite Negative (Negative) Urine Bilirubin Negative (Negative) Urine Urobilinogen Normal (Normal) mg/dL Ur Leukocyte Esterase Moderate H (Negative) Urine Microscopic RBC 15-30 H (0-3) per hpf Urine Microscopic WBC 30-50 H (0-3) per hpf Ur Squamous Epith Cells Many H (None-Few) per lpf Ur Renal Epithelial Cell Few (None-Few) per hpf Urine Bacteria Moderate H (None-Few) per hpf Hyaline Casts Few (None-Few) per lpf Urine Mucus Few (Few) Urine Yeast Moderate H (None Seen) per hpf Urine Sperm Present Ur Culture Indicated? NO. (NO) - Radiology Data Radiology results reviewed: Yes I reviewed the patient's radiology results. Normal sinus rhythm at a rate of 91. [place] interval is 152. QRS duration is 89. QT is 348. QTC is 396. Patient does have some sloping of his ST segment in leads 23 aVF as well as V4 V5 and V6. These were also on his previous EKG dated 06/23/2017. He has a new finding of T-wave inversion in lead 1. - EKG Data EKG #1 EKG attestation: Yes I reviewed and interpreted this EKG. EKG results narrative: Normal sinus rhythm at a rate of 93. [place] interval is 141. Castration is 89. QT is 347. QTC is 398. Does have some ST sloping in leads 23 and aVF. This does not meet the 1 mm criteria for a STEMI and this was also present in his previous EKG dated 06/23/2017. There are no reciprocal changes. Attestation Statement - Attestation Attestation: I examined this patient and my medical decision-making was reviewed with the Resident Physician. I agree with the documented findings, disposition and treatment plan as described except to the extent set forth below. Findings consistent with fever and weakness following dialysis. Blood cultures as well as antibiotic will be initiated. The patient has some degree of somnolence. He is easily arousable. Plan patient will be admitted to the hospital for further evaluation and management weakness in the setting of recent dialysis and with new onset of fever.
[2017-07-03 20:29] LABS: Basophils % 0.4 %; Eosinophils # 0.3 K/mcL (0.0-0.6); Eosinophils % 2.8 %; Hematocrit 30.1 % (37.5-50.1); Hemoglobin 9.5 g/dL (12.9-16.9); Immature Granulocytes % 0.5 % (0-4); Lymphocytes # 1.5 K/mcL (0.6-4.6); Lymphocytes % 15.9 %; Mean Corpuscular HGB Conc 31.6 g/dL (31.6-35.5); Mean Corpuscular Hemoglobin 27.3 pg (28.0-33.3); Mean Corpuscular Volume 86.5 fL (83.0-100.0); Mean Platelet Volume 8.9 fL (9.4-12.4); Monocytes # 0.8 K/mcL (0.0-1.3); Monocytes % 8.4 %; Neutrophils # 6.9 K/mcL (1.6-8.9); Nucleated Red Blood Cells 0.3 /100 WBC (0); Platelet Count 315 K/mcL (140-400); Red Blood Count 3.48 M/mcL (4.19-5.50); Red Cell Distribution Width 13.5 % (11.5-14.5)
[2017-07-03 20:34] LABS: INR 1.1; Prothrombin Time 11.5 Seconds (9.4-12.1)
[2017-07-03 20:36] LABS: Activated Partial Thrombo Time 28.5 Seconds (26.0-36.0)
[2017-07-03 20:57] LABS: Albumin 2.8 g/dL (3.5-5.7); Albumin/Globulin Ratio 0.7 (1.1-2.2); Bilirubin,Direct 0.1 mg/dL (0.0-0.2); Bilirubin,Indirect 0.1 mg/dL (0.0-1.2); Bilirubin,Total 0.2 mg/dL (0.3-1.0); Calcium 7.4 mg/dL (8.6-10.3); Globulin 3.9 g/dL (2.4-3.5); Potassium 4.2 mEq/L (3.5-5.1); Total Protein 6.7 g/dL (6.4-8.9); Troponin I 0.03 ng/mL (< 0.04)
[2017-07-03 21:34] LABS: Bilirubin,Urine Negative (Negative); Blood,Urine Moderate (Negative); Clarity,Urine Cloudy (Clear); Color,Urine Yellow (Yellow); Glucose,Urine (UA) 250 mg/dL (Normal); Ketones,Urine Negative (Negative); Leukocyte Esterase,Urine Moderate (Negative); Nitrite,Urine Negative (Negative); PH,Urine 7.5 pH Units (5.0-8.0); Protein,Urine >=300 mg/dL (Neg-Trace); Specific Gravity,Urine 1.018 (1.010-1.025); Urobilinogen,Urine Normal (Normal)
[2017-07-03 21:37] LABS: RBC,Urine 15-30 per hpf (0-3); Squamous Epithelial Cell,Urine Many per lpf (None-Few); WBC,Urine 30-50 per hpf (0-3)
[2017-07-03] MEDS ORDERED: Ondansetron 4 MG/2 ML VIAL IVP ONE (21:40)
[2017-07-03 21:54] LABS: Hyaline Casts,Urine Few per lpf (None-Few); Renal Epithelial Cells,Urine Few per hpf (None-Few)
[2017-07-03 21:55] LABS: Mucus,Urine Few (Few)
[2017-07-03 21:56] LABS: Yeast,Urine Moderate per hpf (None Seen)
[2017-07-03 21:57] LABS: Bacteria,Urine Moderate per hpf (None-Few); Sperm,Urine Present
[2017-07-03] MEDS ORDERED: Ampicillin 1,000 MG in 0.9 % Sodium Chloride Mini Bag 100 ML IVPB ONE (22:11)
[2017-07-03] MEDS ORDERED: Fluconazole 100 MG/50 ML 100 MG/50 ML BAG IVPB ONE (22:15)
[2017-07-04] MEDS ORDERED: Naloxone 0.4 MG/ML INJ IVP PRN (00:50)
--- NOTE | 2017-07-04 00:56 | Internal Med History&Physical ---
Date of Encounter: 07/04/17 Time of Encounter: 00:54 Assessment and Plan (1) Hypotension Current visit: Yes Status: Acute associated with weakness, dizziness/vertiginous complaints since undergoing dialysis but worse today. check blood and tunneled HD line culture to r/o infection was getting treated for UTI recently. Check UA, urine cx hold anti-HTN switch IV ampicillin to IV linezolid for now pending return of blood cx to r/o line sepsis causing symptoms further management pending hospital course Qualifiers: Hypotension type: other hypotension type Qualified Code(s): I95.89 - Other hypotension (2) ESRD (end stage renal disease) Current visit: No Status: Acute consult renal, MWF HD (3) Diabetes Current visit: No Status: Chronic continue levemir, ISS for now Qualifiers: Diabetes mellitus type: type 2 Diabetes mellitus complication status: without complication Qualified Code(s): E11.9 - Type 2 diabetes mellitus without complications; Z79.4 - [facility] (current) use of insulin; 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 Hernandez is a 52 year old male with DMII, IDDM c/b diabetic/venous stasis gresham ulcers, ESRD on new HD within the past month, recently admitted early 06/2017 for VRE, nikolas UTI on antibiotics, who presents with acute 1 day weakness, passing out, couldn't stand. He reports commencing hemodialysis in the past 3-4 weeks with nephrology through a right tunneled line. Was recently admitted in early June where he was treated for VRE, nikolas UTI. He appears to be moderately tolerance to HD with reports of fatigue, weakness , low BP with MWF sessions. However, today, symptoms were much worse after HD. Reported dizziness with vertiginous symptoms , generalized weakness, pre-syncope and was found to be hypotensive along with a temp 101.8 leading to admission. Concerning for infection ? 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 He follows with urology and had a stent placed by Dr Peraza on June 16 for hydronephrosis and a renal stone EKG personally reviewed with rate of 93, normal sinus rhythm, PVC CT/CT head/brain wo con IMPRESSION: No acute intracranial abnormality. XR/XR chest 1V portable IMPRESSION: 1. Bibasilar atelectasis. 2. Pulmonary vascular congestion with possible perihilar edema, potentially due to congestive heart failure given mild cardiomegaly. Past Med Surg Social Fam HX - Past Medical History Medical history: diabetes, dialysis, hypertension, renal disease Psychiatric history: anxiety - Past Surgical History Surgical History: cholecystectomy - Social History Smoking Status: Never smoker Smokeless Tobacco Status: No Alcohol use: none Drug use: none - Family History Mother Living Status: Hx Family Cardiac Disorders: Yes (stroke) Hx Family Respiratory Disorders: Yes Hx Family Endocrine Disorder: Yes (DM) Father Living Status: Hx Family Cardiac Disorders: Yes (stent) Hx Family Cancer: Yes Hx Family Endocrine Disorder: Yes (DM) Internal Medicine - H&P: Meds Aspirin Enteric Coated [Aspirin EC] 81 mg PO DAILY 06/15/17 [History] Insulin ASPART [Novolog Flexpen] 10 units SQ BID 06/15/17 [History] Insulin ASPART [Novolog Flexpen] 15 units SQ 1200 06/15/17 [History] Lisinopril [Zestril] 10 mg PO DAILY 06/15/17 [History] Insulin Glargine,Hum.rec.anlog [Lantus Solostar] 25 units SQ HS #0 06/19/17 [Rx] Ampicillin Trihydrate 500 mg PO BID #24 capsule 06/25/17 [Rx] Saccharomyces Boulardii [Florastor] 250 mg PO BID #30 capsule 06/25/17 [Rx] Ergocalciferol (VITAMIN D2) [Vitamin D2] 50,000 unit PO WE 07/03/17 [History] 3 Allergy/AdvReac Type Severity Reaction Status Date / Time No Known Allergies Allergy Verified 06/23/17 09:33 All Systems PM: A 10-system review of systems was performed and is negative for pertinent findings except as documented above in the HPI. Review of systems: ROS 14 point review of systems reviewed as best as possible given presentation. Pertinent positive or negative as per HPI or otherwise reviewed as negative - Constitutional Vitals: Temp Pulse Resp BP Pulse Ox 99.0 F 95 18 108/83 96 07/03/17 23:57 07/03/17 23:57 07/03/17 23:57 07/03/17 23:57 07/03/17 23:57 Exam: General - AAO x 3 Psych - Appropriate affect/speech. No agitation Eyes - AGUSTIN. Eye lids intact. No scleral icterus Heart - Sinus. RRR. S1 and S2 present. No added HS/murmurs appreciated. No elevated JVD appreciated. Lung - Adequate air entry b/l, No crackles/wheezes appreciated GI - Soft, non-tender. No hepatosplenomegaly/ascites. BS+ - No CVA/suprapubic tenderness or palpable bladder distension Skin - gresham wrapped up and bandage. Tunnel line on the right side of the chest Internal Med - H&P Results - Labs CBC & Chem 7: 07/03/17 19:44 07/03/17 19:44
[2017-07-04] MEDS ORDERED: *HR* Dextrose 50 % in Water (Syg) 50 ML SYRINGE IVP PRN (00:57)
[2017-07-04] MEDS ORDERED: D5% in Water 1,000 ML IVC PRN (00:57)
[2017-07-04] MEDS ORDERED: Dextrose Gel 15 GM PO PRN ×2 (00:57)
[2017-07-04 02:05] LABS: Bilirubin,Urine Negative (Negative); Blood,Urine Small (Negative); Clarity,Urine Cloudy (Clear); Color,Urine Yellow (Yellow); Glucose,Urine (UA) 250 mg/dL (Normal); Ketones,Urine Negative (Negative); Leukocyte Esterase,Urine Small (Negative); Nitrite,Urine Negative (Negative); Protein,Urine >=1000 mg/dL (Neg-Trace); Specific Gravity,Urine 1.012 (1.010-1.025); Urobilinogen,Urine Normal (Normal)
[2017-07-04 02:06] LABS: Hyaline Casts,Urine None Seen per lpf (None-Few); RBC,Urine 30-50 per hpf (0-3); Squamous Epithelial Cell,Urine Many per lpf (None-Few); WBC,Urine 30-50 per hpf (0-3)
[2017-07-04 02:10] LABS: Bacteria,Urine Few per hpf (None-Few); Mucus,Urine Few (Few)
[2017-07-04] MEDS: Insulin DETEMIR 100 UNIT/ML X5UNITS SQ SCH ×2 (02:19→21:34)
[2017-07-04] MEDS: Ondansetron 4 MG/2 ML VIAL IVP PRN ×3 (04:02→18:30)
[2017-07-04] MEDS: Acetaminophen 325 MG TABLET PO PRN ×2 (04:02→10:03)
[2017-07-04 05:44] LABS: Basophils % 0.6 %; Eosinophils # 0.2 K/mcL (0.0-0.6); Eosinophils % 2.9 %; Hemoglobin 8.8 g/dL (12.9-16.9); Immature Granulocytes % 0.4 % (0-4); Lymphocytes # 1.1 K/mcL (0.6-4.6); Lymphocytes % 16.1 %; Mean Corpuscular HGB Conc 31.4 g/dL (31.6-35.5); Mean Corpuscular Hemoglobin 27.2 pg (28.0-33.3); Mean Corpuscular Volume 86.7 fL (83.0-100.0); Mean Platelet Volume 8.7 fL (9.4-12.4); Monocytes # 0.5 K/mcL (0.0-1.3); Monocytes % 6.6 %; Neutrophils # 5.1 K/mcL (1.6-8.9); Platelet Count 277 K/mcL (140-400); Red Blood Count 3.23 M/mcL (4.19-5.50); Red Cell Distribution Width 13.7 % (11.5-14.5); Segmented Neutrophils % 73.4 %
[2017-07-04 06:09] LABS: Calcium 7.2 mg/dL (8.6-10.3); Magnesium 1.2 mg/dL (1.6-2.6); Phosphorous 3.1 mg/dL (2.7-4.5); Potassium 4.5 mEq/L (3.5-5.1)
[2017-07-04] MEDS: *HR* Heparin 5,000 UNIT/ML VIAL SQ SCH ×2 (06:42→18:30)
--- NOTE | 2017-07-04 08:02 | Urology - Consult Note ---
Date of Encounter: 07/04/17 Time of Encounter: 07:59 - Assessment and Plan (1) Urinary tract infection Current Visit: Yes Status: Acute Assessment and plan: Continue broad-spectrum antibodies at this time. At this point I am not recommending to exchange the ureteral stent. We will continue to follow along closely with the patient to determine if this will need to be done. Patient's poor urine output secondary to ESRD makes clearing his urinary system quite difficult Qualifiers: Urinary tract infection type: acute cystitis Hematuria presence: without hematuria Qualified Code(s): N30.00 - Acute cystitis without hematuria (2) Hydronephrosis Current Visit: No Status: Acute Assessment and plan: Patient is status post ureteral stent placement. This could be source of colonization for his urinary tract infections. Awaiting cultures at this time. We will continue to follow along closely. Qualifiers: Hydronephrosis type: with ureteral calculous obstruction Qualified Code(s) : N13.2 - Hydronephrosis with renal and ureteral calculous obstruction (3) Neurogenic bladder Current Visit: No Status: Chronic Assessment and plan: I recommend at this time the patient have an indwelling urethral catheter placed. He is quite hesitant at this time. I spoke to the nurse and she will reevaluate him later today. This will help allow complete drainage of his urinary system. Urology CN:HPI Consult date: 07/04/17 Reason for consult Urology: Other (uti with fever) Requesting physician: Arthur Veliz History of present illness: Abelardo is a 52-year-old male well-known to urology service. Patient with needing intermittent catheterization secondary to permanent urinary retention. Patient also with indwelling ureteral stent secondary to recent obstructing stone. This was placed by Dr. Peraza. Patient evaluate her last admission by Dr. Zaldivar. Patient now presents back to the hospital secondary to weakness and hypotension during dialysis. Patient also with fever upon arrival to the hospital. Patient states that he feels overall weak at this time. No pain. Patient was catheterized last night with 700 mL's of urine returned. Past Med Surg Social Fam HX - Past Medical History Medical history: diabetes, dialysis, hypertension, renal disease Psychiatric history: anxiety - Past Surgical History Surgical History: cholecystectomy - Social History Smoking Status: Never smoker Smokeless Tobacco Status: No Alcohol use: none Drug use: none - Family History Mother Living Status: Hx Family Cardiac Disorders: Yes (stroke) Hx Family Respiratory Disorders: Yes Hx Family Endocrine Disorder: Yes (DM) Father Living Status: Hx Family Cardiac Disorders: Yes (stent) Hx Family Cancer: Yes Hx Family Endocrine Disorder: Yes (DM) Medications and Allergies Aspirin Enteric Coated [Aspirin EC] 81 mg PO DAILY 06/15/17 [History] Insulin ASPART [Novolog Flexpen] 10 units SQ BID 06/15/17 [History] Insulin ASPART [Novolog Flexpen] 15 units SQ 1200 06/15/17 [History] Lisinopril [Zestril] 10 mg PO DAILY 06/15/17 [History] Insulin Glargine,Hum.rec.anlog [Lantus Solostar] 25 units SQ HS #0 06/19/17 [Rx] Ampicillin Trihydrate 500 mg PO BID #24 capsule 06/25/17 [Rx] Saccharomyces Boulardii [Florastor] 250 mg PO BID #30 capsule 06/25/17 [Rx] Ergocalciferol (VITAMIN D2) [Vitamin D2] 50,000 unit PO WE 07/03/17 [History] 3 Allergy/AdvReac Type Severity Reaction Status Date / Time No Known Allergies Allergy Verified 06/23/17 09:33 Review of Systems - Constitutional fever(s), weakness, no chills - EENT Nose, mouth and throat: no dizziness, no throat swelling - Cardiovascular no chest pain, no diaphoresis - Respiratory no cough, no dyspnea - Gastrointestinal no abdominal pain, no vomiting - Musculoskeletal no back pain, no muscle weakness - Integumentary no erythema, no swelling - Neurological weakness, no confusion - Psychiatric no anxiety, no confusion - Hematologic/Lymphatic no easy bleeding, no lymphadenopathy - Allergic/Immunologic no throat swelling, no wheezing Exam Initial Vital Signs Temp Pulse Resp BP Pulse Ox 101.1 F H 91 18 169/92 99 07/03/17 19:34 07/03/17 19:34 07/03/17 19:34 07/03/17 19:34 07/03/17 19:34 General/Neuological: alert and oriented x 3 Eyes: normal pupils, non-icteric Neck: no lymphadenopathy noted, supple to touch Cardiovascular: RRR, no murmurs Respiratory: normal respiratory effort, clear bilaterally ABD: soft, nontender, no masses palpated, good bowel sounds Back: no pain on percussion bilaterally : normal phallus, normal scrotum, testicles and epididymides normal, urethral meatus normal. Skin: no rashes noted Musculoskeletal: normal gait, FROMx4 Urology Results - Labs 07/04/17 05:29 07/04/17 05:29 Abnormal lab results RBC 3.23 M/mcL (4.19-5.50) L 07/04/17 05:29 Hgb 8.8 g/dL (12.9-16.9) L 07/04/17 05:29 Hct 28.0 % (37.5-50.1) L 07/04/17 05:29 MCH 27.2 pg (28.0-33.3) L 07/04/17 05:29 MCHC 31.4 g/dL (31.6-35.5) L 07/04/17 05:29 MPV 8.7 fL (9.4-12.4) L 07/04/17 05:29 Nucleated RBCs/100 WBC 0.3 /100 WBC (0) H 07/03/17 19:44 BUN 28 mg/dL (6-20) H 07/04/17 05:29 Creatinine 3.44 mg/dL (0.70-1.30) H 07/04/17 05:29 Est GFR ( Amer) 23 (> 60) L 07/04/17 05:29 Est GFR (Non-Af Amer) 19 (> 60) L 07/04/17 05:29 Glucose 176 mg/dL (70-105) H 07/04/17 05:29 POC Glucose 148 (58-89) H 07/03/17 19:40 Calcium 7.2 mg/dL (8.6-10.3) L 07/04/17 05:29 Magnesium 1.2 mg/dL (1.6-2.6) L 07/04/17 05:29 Total Bilirubin 0.2 mg/dL (0.3-1.0) L 07/03/17 19:44 Albumin 2.8 g/dL (3.5-5.7) L 07/03/17 19:44 Globulin 3.9 g/dL (2.4-3.5) H 07/03/17 19:44 Albumin/Globulin Ratio 0.7 (1.1-2.2) L 07/03/17 19:44 Urine Clarity Cloudy (Clear) A 07/04/17 01:58 Urine Protein >=1000 mg/dL (Neg-Trace) H 07/04/17 01:58 Urine Glucose (UA) 250 mg/dL (Normal) H 07/04/17 01:58 Urine Blood Small (Negative) H 07/04/17 01:58 Ur Leukocyte Esterase Small (Negative) H 07/04/17 01:58 Urine Microscopic RBC 30-50 per hpf (0-3) H 07/04/17 01:58 Urine Microscopic WBC 30-50 per hpf (0-3) H 07/04/17 01:58 Ur Squamous Epith Cells Many per lpf (None-Few) H 07/04/17 01:58 Urine Yeast Moderate per hpf (None Seen) H 07/03/17 21:15 Diabetes panel 07/04/17 Range/Units 05:29 Sodium 136 (136-145) mEq/L Potassium 4.5 (3.5-5.1) mEq/L Chloride 105 (98-107) mEq/L Carbon Dioxide 23 (23-29) mEq/L BUN 28 H (6-20) mg/dL Creatinine 3.44 H (0.70-1.30) mg/dL Glucose 176 H (70-105) mg/dL Calcium 7.2 L (8.6-10.3) mg/dL Calcium panel 07/04/17 Range/Units 05:29 Calcium 7.2 L (8.6-10.3) mg/dL Phosphorus 3.1 (2.7-4.5) mg/dL Pituitary panel 07/04/17 Range/Units 05:29 Sodium 136 (136-145) mEq/L Potassium 4.5 (3.5-5.1) mEq/L Chloride 105 (98-107) mEq/L Carbon Dioxide 23 (23-29) mEq/L BUN 28 H (6-20) mg/dL Creatinine 3.44 H (0.70-1.30) mg/dL Glucose 176 H (70-105) mg/dL Calcium 7.2 L (8.6-10.3) mg/dL Adrenal panel 07/04/17 Range/Units 05:29 Sodium 136 (136-145) mEq/L Potassium 4.5 (3.5-5.1) mEq/L Chloride 105 (98-107) mEq/L Carbon Dioxide 23 (23-29) mEq/L BUN 28 H (6-20) mg/dL Creatinine 3.44 H (0.70-1.30) mg/dL Glucose 176 H (70-105) mg/dL Calcium 7.2 L (8.6-10.3) mg/dL All other labs normal. Consult Discharge Plan - Plan Referrals: Miya Aden DO [Primary Care Provider] -
[2017-07-04] MEDS: Lactobacillus 1 EACH CAP.SPRINK PO SCH ×2 (08:21→21:30)
[2017-07-04] MEDS: Aspirin Enteric Coated 81 MG Tablet PO SCH (08:21)
[2017-07-04] MEDS: Insulin LISPRO 300 UNITS/3 ML VIAL SQ SCH ×4 (08:21→21:34)
--- NOTE | 2017-07-04 08:50 | Event Note ---
Date of Encounter: 07/04/17 Time of Encounter: 08:47 Patient was seen and examined. Admitted overnight by one of my colleagues for hypotension and fever. The patient has not been feeling well for some time now. Reports episodes of significant dizziness. He feels fatigued. Recently went into end-stage renal disease requiring dialysis. His blood pressure is stable this morning and he is afebrile. He continues to complain of feeling dizzy. On examination he has really no abnormal neurological findings Will check orthostatics, echocardiogram, carotids, respiratory panel. Hemoglobin has been slowly dropping since April. Hemoglobin is 8.8 today compared to a hemoglobin of 13.5 back in April 2017. No reported bloody stools. Will check FOBT. TSH was normal back in May and no need to repeat. Nephrology to manage dialysis. Appreciate urology's help with urinary retention. The patient has a Gaitan placed now. Continue Zyvox for now empirically and follow up on cultures.
[2017-07-04] MEDS ORDERED: Ampicillin 1,000 MG in 0.9 % Sodium Chloride Mini Bag 100 ML IVPB SCH (09:00)
--- NOTE | 2017-07-04 10:47 | Nephrology Consult Note ---
Date of Encounter: 07/04/17 Time of Encounter: 10:37 Assessment and Plan (1) ESRD (end stage renal disease) Current Visit: No Status: Acute HD MWF. Renal vitamins. Renal dose medications. Renal diet. Additional dialysis and ultrafiltration as needed. He does not need dialysis today. (2) Debility Current Visit: Yes Status: Acute Patient with nonspecific weakness/debility that worsens after dialysis. Etiology is unclear at this time, but could be related to post dialysis hypotension, vs. cardiac cause, vs other. He can't recall his last cardiac workup. He denies chest pain or pressure, but he is a diabetic. I will check a CPK. Agree with an echocardiogram. I agree with checking serial troponins. With the presence of diarrhea I will check C. difficile toxin as well. I recommend physical therapy evaluation. (3) Hemodialysis catheter malfunction Current Visit: Yes Status: Acute Report from the nurses at his dialysis unit indicate that the tunneled dialysis catheter has not been function abruptly. The patient states that he has discomfort when they are running his dialysis. We will request an exchange of his tunnel dialysis catheter and evaluation for fibrin sheath. Qualifiers: Qualified Code(s): T82.41XA - Breakdown (mechanical) of vascular dialysis catheter, initial encounter (4) Abdominal pain Current Visit: Yes Status: Acute Etiology unclear. Will need to monitor. He denies nausea or vomiting. No rebound tenderness. Qualifiers: Qualified Code(s): R10.9 - Unspecified abdominal pain (5) Hypotension Current Visit: Yes Status: Acute Possibly from aggressive UF. Blood pressure at this time seems to be normal. We will evaluate his blood pressure response to dialysis on Thursday. Qualifiers: Hypotension type: other hypotension type Qualified Code(s): I95.89 - Other hypotension (6) Urinary tract infection Current Visit: Yes Status: Acute Continue antibiotics. Being followed by Urology. Qualifiers: Urinary tract infection type: acute cystitis Hematuria presence: without hematuria Qualified Code(s): N30.00 - Acute cystitis without hematuria (7) Anxiety Current Visit: No Status: Chronic (8) Diabetes Current Visit: No Status: Chronic Per primary team. Qualifiers: Diabetes mellitus type: type 2 Diabetes mellitus complication status: without complication Qualified Code(s): E11.9 - Type 2 diabetes mellitus without complications; Z79.4 - long term care phlebotomist (current) use of insulin; Z79.4 - long term care phlebotomist (current) use of insulin; Z79.4 - long term care phlebotomist (current) use of insulin; Z79.4 - group home (current) use of insulin (9) Hypertension Current Visit: No Status: Chronic Per history. Only on lisinopril which is being held. Qualifiers: Hypertension type: essential hypertension Qualified Code(s): I10 - Essential (primary) hypertension History of Present Illness - Reason for Consult Consult date: 07/04/17 end stage renal disease - Chief Complaint ESRSD. - History of Present Illness Mr. Hernandez is a 52 yo man with a history of ESRD who presents with weakness and hypotension after dialysis. The patient receives hemodialysis Thursday via a right IJ tunneled dialysis catheter at the [facility] dialysis [facility] in [facility]. He states he has been on dialysis for about 3 weeks and has not felt well since starting dialysis. Over the last week he has noticed episodes of weakness that occur after dialysis. The Thursday prior to admission he had a near syncopal event while walking up the stairs to his home. The Thursday prior to admission he had an episode of near syncope manifested by loss of memory for about 30 minutes that occurred after dialysis. The day of admission he was noted to be extremely weak and have low blood pressure after dialysis. He also notes that he has had diarrhea for about a week and is on antibiotics for urinary infection. He does have mild dyspnea after dialysis, but denies chest pain or chest pressure. He also denies abdominal pain. He does complain of feeling achy all over for about 3 weeks. He denies chills or fevers prior to admission. Past Med Surg Social Fam HX - Past Medical History Medical history: diabetes, dialysis, hypertension, renal disease Psychiatric history: anxiety - Past Surgical History Surgical History: cholecystectomy - Social History Smoking Status: Never smoker Smokeless Tobacco Status: No Alcohol use: none Drug use: none - Family History Mother Living Status: Hx Family Cardiac Disorders: Yes (stroke) Hx Family Respiratory Disorders: Yes Hx Family Endocrine Disorder: Yes (DM) Father Living Status: Hx Family Cardiac Disorders: Yes (stent) Hx Family Cancer: Yes Hx Family Endocrine Disorder: Yes (DM) Medications and Allergies Aspirin Enteric Coated [Aspirin EC] 81 mg PO DAILY 06/15/17 [History] Insulin ASPART [Novolog Flexpen] 10 units SQ BID 06/15/17 [History] Insulin ASPART [Novolog Flexpen] 15 units SQ 1200 06/15/17 [History] Lisinopril [Zestril] 10 mg PO DAILY 06/15/17 [History] Insulin Glargine,Hum.rec.anlog [Lantus Solostar] 25 units SQ HS #0 06/19/17 [Rx] Ampicillin Trihydrate 500 mg PO BID #24 capsule 06/25/17 [Rx] Saccharomyces Boulardii [Florastor] 250 mg PO BID #30 capsule 06/25/17 [Rx] Ergocalciferol (VITAMIN D2) [Vitamin D2] 50,000 unit PO WE 07/03/17 [History] 3 Allergy/AdvReac Type Severity Reaction Status Date / Time No Known Allergies Allergy Verified 06/23/17 09:33 Review of Systems All Systems: reviewed and no additional remarkable complaints except as stated ( as documented in the HPI.) Exam - Vital Signs Vital signs: Initial Vital Signs Temp Pulse Resp BP Pulse Ox 101.1 F H 91 18 169/92 99 07/03/17 19:34 07/03/17 19:34 07/03/17 19:34 07/03/17 19:34 07/03/17 19:34 Vital Signs - Last 8 Hours Temp Pulse Resp BP Pulse Ox 07/04/17 08:24 96 07/04/17 08:04 98.1 F 83 20 131/81 96 07/04/17 04:18 98.5 F 82 18 130/73 98 Intake and Output 07/03/17 07/04/17 07/04/17 23:59 07:59 15:59 Intake Total 300 / 300 0 / 0 Output Total 650 / 650 Balance -350 / -350 0 / 0 Intake: IV Fluids 300 / 300 Zyvox Premix 600mg/300mL 600 mg 300 / 300 In 300 ml @ 150 mls/hr IVPB Q12H [facility] Rx#:[id number] Oral 0 / 0 Output: Straight Cath 650 / 650 Other: Meal Breakfast Percent of Meal Consumed 0% Stool Size Moderate Stool Consistency soft Stool Color Brown # Bowel Movements 1 Weight 107.53 kg Blood Glucose* 149 Patient Weight 07/04/17 23:59 Weight 107.53 kg - General Appearance General appearance: well-developed, well-nourished, obese EENT: ATNC Neck: supple Respiratory: clear Cardiology: no edema, regular rate, regular rhythm - Dialysis Access Dialysis Vascular Access: Venous Catheter (no erythema or tenderness around the entry site.) Gastrointestinal: normoactive bowel sounds, tenderness (pinpoint tenderness in the right lower quadrant without rebound or guarding. reducible hernia near the area of tenderness. ), no guarding, obese Integumentary: no rash, warm and dry Neurologic: alert and oriented x3 Musculoskeletal: no cyanosis Psychiatric: mood/affect appropriate Results - Lab Results 07/04/17 05:29 07/04/17 05:29 Most recent lab results Calcium 7.2 mg/dL (8.6-10.3) L 07/04/17 05:29 Phosphorus 3.1 mg/dL (2.7-4.5) 07/04/17 05:29 Magnesium 1.2 mg/dL (1.6-2.6) L 07/04/17 05:29 Consult Discharge Plan - Plan Referrals: Miya Aden DO [Primary Care Provider] -
[2017-07-04] MEDS ORDERED: traMADol 50 MG TABLET PO ONE (11:32)
[2017-07-04 11:36] LABS: Adenovirus Not Detected (Not Detect); Bordetella Pertussis Not Detected (Not Detect); Chlamydophila pneumoniae Not Detected (Not Detect); Coronavirus 229E Not Detected (Not Detect); Coronavirus HKU1 Not Detected (Not Detect); Coronavirus NL63 Not Detected (Not Detect); Coronavirus OC43 Not Detected (Not Detect); Human Metapneumovirus Not Detected (Not Detect); Human Rhinovirus/Enterovirus Not Detected (Not Detect); Influenza A Subtype 2009 H1 Not Detected (Not Detect); Influenza A Untypeable Not Detected (Not Detect); Influenza B Not Detected (Not Detect); Mycoplasma pneumoniae Not Detected (Not Detect); Parainfluenza Virus 1 Not Detected (Not Detect); Parainfluenza Virus 2 Not Detected (Not Detect); Parainfluenza Virus 3 Not Detected (Not Detect); Parainfluenza Virus 4 Not Detected (Not Detect); Respiratory Syncytial Virus Not Detected (Not Detect)
[2017-07-04] MEDS ORDERED: traMADol 50 MG TABLET PO PRN (21:15)
[2017-07-05 06:20] LABS: Basophils % 0.6 %; Eosinophils # 0.3 K/mcL (0.0-0.6); Eosinophils % 5.3 %; Hematocrit 29.3 % (37.5-50.1); Hemoglobin 9.4 g/dL (12.9-16.9); Immature Granulocytes % 0.4 % (0-4); Lymphocytes # 1.3 K/mcL (0.6-4.6); Lymphocytes % 28.3 %; Mean Corpuscular HGB Conc 32.1 g/dL (31.6-35.5); Mean Corpuscular Hemoglobin 27.6 pg (28.0-33.3); Mean Corpuscular Volume 85.9 fL (83.0-100.0); Mean Platelet Volume 8.9 fL (9.4-12.4); Monocytes # 0.5 K/mcL (0.0-1.3); Neutrophils # 2.6 K/mcL (1.6-8.9); Platelet Count 272 K/mcL (140-400); Red Blood Count 3.41 M/mcL (4.19-5.50); Red Cell Distribution Width 13.9 % (11.5-14.5); Segmented Neutrophils % 54.4 %
[2017-07-05] MEDS: *HR* Heparin 5,000 UNIT/ML VIAL SQ SCH ×2 (06:26→16:59)
[2017-07-05 06:36] LABS: Calcium 7.8 mg/dL (8.6-10.3); Magnesium 1.3 mg/dL (1.6-2.6); Potassium 4.6 mEq/L (3.5-5.1)
[2017-07-05 07:01] LABS: Folate 4.8 ng/mL (3.0-16.0)
--- NOTE | 2017-07-05 08:12 | Nephrology Progress Note ---
Date of Encounter: 07/05/17 Time of Encounter: 08:10 - Assessment and Plan (1) ESRD (end stage renal disease) Current Visit: No Status: Acute HD MWF. Renal vitamins. Renal dose medications. Renal diet. Additional dialysis and ultrafiltration as needed. Will limit UF secondary to complaints of post dialysis hypotension. 24 hour urine requested. (2) Debility Current Visit: Yes Status: Acute PT ordered. (3) Hemodialysis catheter malfunction Current Visit: Yes Status: Acute Catheter exchange is requested. Qualifiers: Qualified Code(s): T82.41XA - Breakdown (mechanical) of vascular dialysis catheter, initial encounter (4) Abdominal pain Current Visit: Yes Status: Acute Resolved. Qualifiers: Qualified Code(s): R10.9 - Unspecified abdominal pain (5) Hypotension Current Visit: Yes Status: Acute Improved. He was orthostatic. He likely was volume depleted. Qualifiers: Hypotension type: other hypotension type Qualified Code(s): I95.89 - Other hypotension (6) Urinary tract infection Current Visit: Yes Status: Acute Continue antibiotics. Qualifiers: Urinary tract infection type: acute cystitis Hematuria presence: without hematuria Qualified Code(s): N30.00 - Acute cystitis without hematuria (7) Anxiety Current Visit: No Status: Chronic (8) Hypertension Current Visit: No Status: Chronic Blood pressure controlled. Qualifiers: Hypertension type: essential hypertension Qualified Code(s): I10 - Essential (primary) hypertension (9) Diabetes Current Visit: No Status: Chronic Qualifiers: Diabetes mellitus type: type 2 Diabetes mellitus intermodal dispatcher insulin use: without retirement use Diabetes mellitus complication status: without complication Qualified Code(s): E11.9 - Type 2 diabetes mellitus without complications Subjective Principal diagnosis: ESRD Interval history: Patient feels much better. He has improved energy and states he is moving better he has no new complaints. Objective - Vital Signs Vital signs: Vital Signs Temp Pulse Pulse Pulse Pulse Resp BP 07/05/17 04:45 98.1 F 75 18 128/82 07/04/17 22:54 98.7 F 76 16 155/96 07/04/17 18:55 98.2 F 75 16 136/81 07/04/17 15:25 98.4 F 77 20 90/44 07/04/17 11:19 83 103 112 07/04/17 11:16 98.4 F 86 20 171/94 07/04/17 08:24 BP BP BP Pulse Ox 07/05/17 04:45 98 07/04/17 22:54 97 07/04/17 18:55 92 07/04/17 15:25 96 07/04/17 11:19 171/94 108/70 123/83 07/04/17 11:16 96 07/04/17 08:24 96 Intake and Output 07/04/17 07/05/17 07/05/17 23:59 07:59 15:59 Intake Total 420 / 420 0 / 0 Output Total 500 / 500 725 / 725 Balance -80 / -80 -725 / -725 Intake: IV Fluids 300 / 300 Zyvox Premix 600mg/300mL 600 mg 300 / 300 In 300 ml @ 150 mls/hr IVPB Q12H [facility] Rx#:[id number] Oral 120 / 120 0 / 0 Output: Catheter 500 / 500 725 / 725 Other: Meal Dinner Percent of Meal Consumed 50% Weight 102.829 kg Blood Glucose* 168 Patient Weight 07/05/17 23:59 Weight 102.829 kg - General Appearance General appearance: Present: well-developed, well-nourished, obese EENT: Present: ATNC Neck: Present: supple Respiratory: Present: course breath sounds Cardiology: Present: no edema, regular rate, regular rhythm Dialysis Vascular Access: Venous Catheter Gastrointestinal: Present: no tenderness, obese Integumentary: Present: warm and dry Neurologic: Present: alert and oriented x3 Musculoskeletal: Present: no cyanosis Psychiatric: Present: mood/affect appropriate - Lab 07/05/17 06:01 07/05/17 06:01 Most recent lab results Calcium 7.8 mg/dL (8.6-10.3) L 07/05/17 06:01 Phosphorus 3.1 mg/dL (2.7-4.5) 07/04/17 05:29 Magnesium 1.3 mg/dL (1.6-2.6) L 07/05/17 06:01 Consult Discharge Plan - Plan Referrals: Miya Aden DO [Primary Care Provider] - (web request sent on 07/04/17)
[2017-07-05] MEDS: Aspirin Enteric Coated 81 MG Tablet PO SCH (08:21)
[2017-07-05] MEDS: Lactobacillus 1 EACH CAP.SPRINK PO SCH ×2 (08:22→21:33)
[2017-07-05] MEDS: Insulin LISPRO 300 UNITS/3 ML VIAL SQ SCH ×4 (08:23→21:29)
[2017-07-05] MEDS ORDERED: Magnesium Oxide 400 MG TABLET PO ONE (08:24)
--- NOTE | 2017-07-05 08:29 | Internal Med Progress Note ---
Date of Encounter: 07/05/17 Time of Encounter: 08:27 - Assessment and plan (1) Febrile illness Current Visit: Yes Status: Acute Assessment and plan: Possibly from a urinary tract infection. Has been started empirically on admission on Zyvox. Going to change that to Rocephin. Patient is afebrile. Cultures are negative. (2) Dizziness Current Visit: Yes Status: Acute Assessment and plan: CT head was negative on admission. The patient has positive orthostatics and I started him on Midodrine. Also ordered an echocardiogram as well as carotid ultrasound which are still pending. (3) Anemia in chronic kidney disease Current Visit: Yes Status: Acute Assessment and plan: FOBT negative. Hemoglobin actually is better than yesterday now. We will continue to monitor. Qualifiers: Chronic kidney disease stage: on chronic dialysis Qualified Code(s): N18.6 - End stage renal disease; D63.1 - Anemia in chronic kidney disease; D63.1 - Anemia in chronic kidney disease; Z99.2 - Dependence on renal dialysis; Z99.2 - Dependence on renal dialysis; Z99.2 - Dependence on renal dialysis; Z99.2 - Dependence on renal dialysis (4) ESRD (end stage renal disease) Current Visit: No Status: Acute Assessment and plan: Dialysis per nephrology (5) Diabetes Current Visit: No Status: Chronic Assessment and plan: Continue current Levemir 25 units. Continue sliding scale. Continue Accu- Cheks. Qualifiers: Diabetes mellitus type: type 2 Diabetes mellitus residential insulin use: without residential use Diabetes mellitus complication status: without complication Qualified Code(s): E11.9 - Type 2 diabetes mellitus without complications (6) Neurogenic bladder Current Visit: No Status: Chronic Assessment and plan: Urology is following. A Gaitan has been placed. He follows up with urology as an outpatient too. He is to do self intermittent catheterization. (7) DVT prophylaxis Current Visit: No Status: Acute Assessment and plan: Heparin subcutaneous - Subjective Interval history: Patient was seen and examined. Admitted for hypotension and fever on and 101.1. Afebrile this morning. Says his dizziness is much better. Yesterday he had positive orthostatics. The patient has not been feeling well for some time now. Reports episodes of significant dizziness. He feels fatigued. Recently went into end-stage renal disease requiring dialysis. His blood pressure is stable this morning - Constitutional Vitals: Temp Pulse Resp BP Pulse Ox 98.1 F 82 16 114/66 100 07/05/17 08:17 07/05/17 08:17 07/05/17 08:17 07/05/17 08:17 07/05/17 08:17 Exam: GEN: NAD CVS: RRR. S1, S2, No m/r/g RESP: CTAB ABD: Soft, NT, ND, +BS EXT: No edema. 2+ DP. No rashes lower extremity is wrapped due to venous ulcerations. NEURO: Nonfocal Internal Medicine: Result - Labs CBC & Chem 7: 07/05/17 06:01 07/05/17 06:01 Labs: Short CBC 07/05/17 Range/Units 06:01 WBC 4.7 (4.3-11.1) K/mcL Hgb 9.4 L (12.9-16.9) g/dL Hct 29.3 L (37.5-50.1) % Plt Count 272 (140-400) K/mcL Neutrophils # 2.6 (1.6-8.9) K/mcL BMP 07/04/17 07/04/17 07/05/17 05:29 13:19 06:01 Sodium 136 134 L Potassium 4.5 4.6 Chloride 105 106 Carbon Dioxide 23 24 BUN 28 H 29 H Creatinine 3.44 H 3.71 H 4.12 H Glucose 176 H 137 H Calcium 7.2 L 7.8 L - ABG Interpretation ABG results: PT/INR, D-dimer PT 11.5 Seconds (9.4-12.1) 07/03/17 19:44 Consult Discharge Plan - Plan Referrals: Miya Aden DO [Primary Care Provider] - (web request sent on 07/04/17)
[2017-07-05] MEDS: cefTRIAXone 1,000 MG in Water for inj. (sterile) 20 ML 10 ML IVP SCH (09:26)
--- NOTE | 2017-07-05 10:07 | Urology Progress Note ---
Date of Encounter: 07/05/17 Time of Encounter: 10:05 - Assessment and Plan (1) Urinary tract infection Current Visit: Yes Status: Acute Assessment and plan: continue with tx per primary team. Qualifiers: Urinary tract infection type: acute cystitis Hematuria presence: without hematuria Qualified Code(s): N30.00 - Acute cystitis without hematuria (2) Hydronephrosis Current Visit: No Status: Acute Qualifiers: Hydronephrosis type: with ureteral calculous obstruction Qualified Code(s) : N13.2 - Hydronephrosis with renal and ureteral calculous obstruction (3) Neurogenic bladder Current Visit: No Status: Chronic Assessment and plan: continue with indwelling catheter at this time. (4) Phimosis Current Visit: Yes Status: Acute Assessment and plan: will add lidocaine jelly to see if this will help with the meatal discomfort Progress Note Narrative: Patient seen. Patient with some pain around his catheter. good uop. vitals better Objective Initial Vital Signs Temp Pulse Resp BP Pulse Ox 101.1 F H 91 18 169/92 99 07/03/17 19:34 07/03/17 19:34 07/03/17 19:34 07/03/17 19:34 07/03/17 19:34 - General physical appearance Present: well developed, well nourished, no distress - Abdomen Present: soft, bowel sounds. Absent: masses - Genitourinary Present: other (clear urine in tubing. penis with some phimosis and irritation around meatus, normal testicles) - Labs 07/05/17 06:01 07/05/17 06:01 Diabetes panel 07/04/17 07/05/17 Range/Units 13:19 06:01 Sodium 134 L (136-145) mEq/L Potassium 4.6 (3.5-5.1) mEq/L Chloride 106 (98-107) mEq/L Carbon Dioxide 24 (23-29) mEq/L BUN 29 H (6-20) mg/dL Creatinine 3.71 H 4.12 H (0.70-1.30) mg/dL Glucose 137 H (70-105) mg/dL Calcium 7.8 L (8.6-10.3) mg/dL Calcium panel 07/05/17 Range/Units 06:01 Calcium 7.8 L (8.6-10.3) mg/dL Pituitary panel 07/04/17 07/05/17 Range/Units 13:19 06:01 Sodium 134 L (136-145) mEq/L Potassium 4.6 (3.5-5.1) mEq/L Chloride 106 (98-107) mEq/L Carbon Dioxide 24 (23-29) mEq/L BUN 29 H (6-20) mg/dL Creatinine 3.71 H 4.12 H (0.70-1.30) mg/dL Glucose 137 H (70-105) mg/dL Calcium 7.8 L (8.6-10.3) mg/dL Adrenal panel 07/04/17 07/05/17 Range/Units 13:19 06:01 Sodium 134 L (136-145) mEq/L Potassium 4.6 (3.5-5.1) mEq/L Chloride 106 (98-107) mEq/L Carbon Dioxide 24 (23-29) mEq/L BUN 29 H (6-20) mg/dL Creatinine 3.71 H 4.12 H (0.70-1.30) mg/dL Glucose 137 H (70-105) mg/dL Calcium 7.8 L (8.6-10.3) mg/dL Consult Discharge Plan - Plan Referrals: Miya Aden DO [Primary Care Provider] - (web request sent on 07/04/17)
[2017-07-05] MEDS: Acetaminophen 325 MG TABLET PO PRN ×2 (12:15→21:33)
--- NOTE | 2017-07-05 20:42 | Event Note ---
Date of Encounter: 07/05/17 Time of Encounter: 20:40 Patient now hypertensive. Started Midodrine today d/t positive orthostatics. Hold midodrine for now, continue to monitor BP
[2017-07-06] MEDS: Insulin DETEMIR 100 UNIT/ML X5UNITS SQ SCH ×2 (00:21→19:36)
[2017-07-06 06:09] LABS: Basophils # 0.1 K/mcL (0.0-0.2); Basophils % 1.1 %; Eosinophils # 0.2 K/mcL (0.0-0.6); Eosinophils % 4.4 %; Hematocrit 33.7 % (37.5-50.1); Immature Granulocytes % 0.6 % (0-4); Lymphocytes # 1.7 K/mcL (0.6-4.6); Lymphocytes % 32.2 %; Mean Corpuscular HGB Conc 32.6 g/dL (31.6-35.5); Mean Corpuscular Hemoglobin 27.9 pg (28.0-33.3); Mean Corpuscular Volume 85.5 fL (83.0-100.0); Mean Platelet Volume 9.3 fL (9.4-12.4); Monocytes # 0.5 K/mcL (0.0-1.3); Monocytes % 9.1 %; Neutrophils # 2.8 K/mcL (1.6-8.9); Platelet Count 333 K/mcL (140-400); Red Blood Count 3.94 M/mcL (4.19-5.50); Red Cell Distribution Width 14.4 % (11.5-14.5); Segmented Neutrophils % 52.6 %
[2017-07-06] MEDS: *HR* Heparin 5,000 UNIT/ML VIAL SQ SCH ×2 (06:11→18:37)
[2017-07-06 06:25] LABS: Calcium 8.2 mg/dL (8.6-10.3); Potassium 4.9 mEq/L (3.5-5.1)
[2017-07-06] MEDS ORDERED: 0.9 % Sodium Chloride 2,000 ML ONE (07:21)
[2017-07-06] MEDS: Ondansetron 4 MG/2 ML VIAL IVP PRN ×4 (07:52→21:37)
[2017-07-06] MEDS: cefTRIAXone 1,000 MG in Water for inj. (sterile) 20 ML 10 ML IVP SCH (08:04)
[2017-07-06] MEDS ORDERED: 0.9 % Sodium Chloride 250 ML IVC PRN (08:04)
[2017-07-06] MEDS ORDERED: *HR* Heparin 10,000 UNIT/10 ML VIAL IV PRN (08:04)
[2017-07-06] MEDS: Lactobacillus 1 EACH CAP.SPRINK PO SCH ×2 (08:05→19:42)
[2017-07-06] MEDS: Aspirin Enteric Coated 81 MG Tablet PO SCH (08:05)
[2017-07-06] MEDS: Insulin LISPRO 300 UNITS/3 ML VIAL SQ SCH ×4 (08:10→19:35)
[2017-07-06] MEDS ORDERED: 0.9 % Sodium Chloride 1,000 ML PRIME SCH (08:15)
[2017-07-06 08:53] LABS: Total Volume 24 Hour,Urine 2.63 Liters (0.80-1.80)
--- NOTE | 2017-07-06 10:19 | Internal Med Progress Note ---
Date of Encounter: 07/06/17 Time of Encounter: 10:17 - Assessment and plan (1) Febrile illness Current Visit: Yes Status: Acute Assessment and plan: Possibly from a urinary tract infection. Has been started empirically on admission on Zyvox. I changed him to Rocephin on 07/05. Patient is afebrile. Cultures are negative. (2) Dizziness Current Visit: Yes Status: Acute Assessment and plan: CT head was negative on admission. The patient has positive orthostatics and I started him on Midodrine. However yesterday he was somewhat hypertensive and started feeling nauseous. His midodrine was stopped. I am going to cut down his midodrine to 2.5 mg 3 times a day from 5 mg 3 times a day. Echocardiogram carotid ultrasounds are unremarkable . We will keep the patient in-house and see how he is doing for the next 24 hours (3) Anemia in chronic kidney disease Current Visit: Yes Status: Acute Assessment and plan: FOBT negative. Hemoglobin is stable. He is up to 11.0 this morning. Qualifiers: Chronic kidney disease stage: on chronic dialysis Qualified Code(s): N18.6 - End stage renal disease; D63.1 - Anemia in chronic kidney disease; D63.1 - Anemia in chronic kidney disease; Z99.2 - Dependence on renal dialysis; Z99.2 - Dependence on renal dialysis; Z99.2 - Dependence on renal dialysis; Z99.2 - Dependence on renal dialysis (4) ESRD (end stage renal disease) Current Visit: Yes Status: Acute Assessment and plan: Dialysis per nephrology (5) Diabetes Current Visit: Yes Status: Chronic Assessment and plan: Continue current Levemir 25 units. Continue sliding scale. Continue Accu- Cheks. Qualifiers: Diabetes mellitus type: type 2 Diabetes mellitus prison insulin use: without prison use Diabetes mellitus complication status: without complication Qualified Code(s): E11.9 - Type 2 diabetes mellitus without complications (6) Neurogenic bladder Current Visit: No Status: Chronic Assessment and plan: Urology is following. Has scrotal pain which urology is aware of and an US is ordered. A Gaitan has been placed. He follows up with urology as an outpatient too. He used to do self intermittent catheterization. (7) DVT prophylaxis Current Visit: No Status: Acute Assessment and plan: Heparin subcutaneous - Subjective Interval history: Patient was seen and examined. He has been feeling nauseated since yesterday. Yesterday his blood pressure was elevated and night nurse practitioner stopped his Midodrine. Reports feeling nauseous and dizzy this morning. Now afebrile. Admitted for hypotension and fever on and 101.1. Afebrile this morning. Says his dizziness is much better. Yesterday he had positive orthostatics. The patient has not been feeling well for some time now. Reports episodes of significant dizziness. He feels fatigued. Recently went into end-stage renal disease requiring dialysis. - Constitutional Vitals: Temp Pulse Resp BP Pulse Ox 98.6 F 77 15 104/70 96 07/06/17 07:45 07/06/17 07:45 07/06/17 07:45 07/06/17 07:45 07/06/17 07:55 Exam: GEN: NAD CVS: RRR. S1, S2, No m/r/g RESP: CTAB ABD: Soft, NT, ND, +BS EXT: No edema. 2+ DP. No rashes lower extremity is wrapped due to venous ulcerations. NEURO: Nonfocal Internal Medicine: Result - Labs CBC & Chem 7: 07/06/17 05:50 07/06/17 05:50 Labs: Short CBC 07/06/17 Range/Units 05:50 WBC 5.3 (4.3-11.1) K/mcL Hgb 11.0 L D (12.9-16.9) g/dL Hct 33.7 L (37.5-50.1) % Plt Count 333 (140-400) K/mcL Neutrophils # 2.8 (1.6-8.9) K/mcL BMP 07/06/17 05:50 Sodium 136 Potassium 4.9 Chloride 108 H Carbon Dioxide 20 L BUN 35 H Creatinine 4.74 H Glucose 143 H Calcium 8.2 L - ABG Interpretation ABG results: PT/INR, D-dimer PT 11.5 Seconds (9.4-12.1) 07/03/17 19:44 - Impressions Impressions Echocardiogram 07/05/17 08:46 Impressions: LVEF is probably normal, not all segments adequately visualized No pulmonary hypertension. No significant valvular dysfunction. Left Ventricular Wall Motion: Rest Echo Findings The apex, apical inferior, apical lateral and mid anterior lateral rubio were not visualized. All other wall segments showed normal motion. Findings: Study Quality * Technically adequate exam. Right Ventricle * Normal right ventricular structure and function. Left Atrium * Normal left atrial size. Right Atrium * Normal right atrial size. Aortic Valve * Trileaflet aortic valve with normal function. Mitral Valve * Normal mitral valve structure and function. Interatrial Septum * No evidence of PFO by color Doppler. Aorta * Normally sized aortic root. Pericardium * The pericardium appears normal. ECG Findings * Normal sinus rhythm. Tricuspid Valve * Trace tricuspid regurgitation. * No tricuspid stenosis. * Estimated RVSP is 18 mmHg. * No pulmonary hypertension. Pulmonic Valve * No pulmonic stenosis. * No pulmonic regurgitation. * Pulmonic valve is not well visualized. Left Ventricle * LVEF is probably normal, not all segments adequately visualized * Normal left ventricular diastolic function. IVC * Normal IVC dimensions and inspiratory collapse. Consult Discharge Plan - Plan Referrals: Miya Aden DO [Primary Care Provider] - 07/13/17 10:00 am (web request sent on 07/04/17)
[2017-07-06] MEDS ORDERED: Cyanocobalamin (B-12) 1,000 MCG/ML VIAL IM ONE (12:30)
--- NOTE | 2017-07-06 12:31 | Nephrology Progress Note ---
Date of Encounter: 07/06/17 Time of Encounter: 12:30 - Assessment and Plan (1) ESRD (end stage renal disease) Current Visit: Yes Status: Acute HD MWF. adjusted UF due to post-hd hypotension. 24 hour urine electrolytes remain unchanged. can be followed up Outpatient. - cath to replaced today by IR. - patient to receive HD today w/ renal vitamins - avoid nephrotoxins - renal dosing - renal diet (2) Abdominal pain Current Visit: Yes Status: Acute resolved Qualifiers: Qualified Code(s): R10.9 - Unspecified abdominal pain (3) Anxiety Current Visit: Yes Status: Chronic per primary team (4) Debility Current Visit: Yes Status: Acute per primary team (5) Diabetes Current Visit: Yes Status: Chronic per primary team Qualifiers: Diabetes mellitus type: type 2 Diabetes mellitus fpc insulin use: without fpc use Diabetes mellitus complication status: without complication Qualified Code(s): E11.9 - Type 2 diabetes mellitus without complications (6) Hemodialysis catheter malfunction Current Visit: Yes Status: Acute see above Qualifiers: Qualified Code(s): T82.41XA - Breakdown (mechanical) of vascular dialysis catheter, initial encounter (7) Hypertension Current Visit: No Status: Chronic per primary team Qualifiers: Hypertension type: essential hypertension Qualified Code(s): I10 - Essential (primary) hypertension (8) Hypotension Current Visit: Yes Status: Acute post-hd hypotension. see above Qualifiers: Hypotension type: other hypotension type Qualified Code(s): I95.89 - Other hypotension (9) Urinary tract infection Current Visit: Yes Status: Acute per primary team Qualifiers: Urinary tract infection type: acute cystitis Hematuria presence: without hematuria Qualified Code(s): N30.00 - Acute cystitis without hematuria Subjective Principal diagnosis: ESRD Interval history: Mr Hernandez is a 52 yo M ESRD HD MWF. Patient seen and examined. No events overnight Objective - Vital Signs Vital signs: Vital Signs Temp Pulse Resp BP Pulse Ox 07/06/17 12:13 98.2 F 78 18 121/76 96 07/06/17 07:55 96 07/06/17 07:45 98.6 F 77 15 104/70 96 07/06/17 03:53 97.8 F 68 16 156/72 95 07/06/17 01:21 98.1 F 84 18 102/73 99 07/05/17 19:29 98.2 F 66 18 183/106 96 07/05/17 15:51 98.7 F 78 16 147/83 98 07/05/17 15:43 98.3 F 72 16 126/59 98 Intake and Output 07/05/17 07/06/17 07/06/17 23:59 07:59 15:59 Intake Total 120 / 120 0 / 0 Output Total 550 / 550 250 / 250 500 / 500 Balance -430 / -430 -250 / -250 -490 / -490 Intake: IV Fluids Rocephin 1,000 MG In Water for inj. (sterile) 10 ML @ 300 mls/ hr IVP DAILY [facility] Rx#:[id number] Oral 120 / 120 0 / 0 Output: Urine 0 / 0 Catheter 550 / 550 250 / 250 500 / 500 Other: Meal Dinner Percent of Meal Consumed 75% Weight 101.469 kg Blood Glucose* 143 165 146 Patient Weight 07/06/17 23:59 Weight 101.469 kg - General Appearance General appearance: Present: well-developed, well-nourished, appears started age , obese Neck: Present: supple Respiratory: Present: scoliosis Cardiology: Present: no murmurs, no rub, no gallops, no edema, regular rate, regular rhythm, normal S1, normal S2 Dialysis Vascular Access: Venous Catheter Gastrointestinal: Present: no tenderness Integumentary: Present: warm and dry Neurologic: Present: alert and oriented x3 Psychiatric: Present: mood/affect appropriate, cooperative - Lab 07/06/17 05:50 07/06/17 05:50 Most recent lab results Calcium 8.2 mg/dL (8.6-10.3) L 07/06/17 05:50 Phosphorus 3.1 mg/dL (2.7-4.5) 07/04/17 05:29 Magnesium 1.3 mg/dL (1.6-2.6) L 07/05/17 06:01 Urine Creatinine 53 mg/dL 07/06/17 00:05 Consult Discharge Plan - Plan Referrals: Miya Aden DO [Primary Care Provider] - 07/13/17 10:00 am (web request sent on 07/04/17)
[2017-07-06 12:57] LABS: Total Volume 24 Hour,Urine 2.63 Liters (0.80-1.80)
--- NOTE | 2017-07-06 13:20 | Event Note ---
Date of Encounter: 07/06/17 Time of Encounter: 13:19 pt now complaining of scrotal pain. on exam no concerning skin lesions/erythema. left testicle difficult to palpate but normal will proceed with scrotal ultrasound
[2017-07-06] MEDS ORDERED: Heparin 1,000 UNITS/500 mL 500 ML ONE (13:28)
[2017-07-06] MEDS ORDERED: *HR* Heparin 5,000 UNIT/ML VIAL ONE (14:15)
[2017-07-06 15:25] LABS: Total Volume 24 Hour,Urine 2.63 Liters (0.80-1.80)
[2017-07-06 16:10] LABS: Protein/Creatinine Ratio,Urine 9.02 mg/mg (0.00-0.20)
[2017-07-06 18:11] LABS: Hepatitis B Surface Antigen Nonreactive (Nonreactive)
[2017-07-06] MEDS: Acetaminophen 325 MG TABLET PO PRN (18:44)
[2017-07-07] MEDS: Ondansetron 4 MG/2 ML VIAL IVP PRN (01:59)
[2017-07-07] MEDS: Acetaminophen 325 MG TABLET PO PRN (01:59)
[2017-07-07] MEDS: *HR* Heparin 5,000 UNIT/ML VIAL SQ SCH ×2 (05:42→16:58)
[2017-07-07 05:49] LABS: Basophils % 0.8 %; Eosinophils # 0.2 K/mcL (0.0-0.6); Hematocrit 31.3 % (37.5-50.1); Immature Granulocytes % 0.6 % (0-4); Lymphocytes # 2.1 K/mcL (0.6-4.6); Lymphocytes % 40.6 %; Mean Corpuscular HGB Conc 31.9 g/dL (31.6-35.5); Mean Corpuscular Hemoglobin 27.5 pg (28.0-33.3); Mean Platelet Volume 9.2 fL (9.4-12.4); Monocytes # 0.5 K/mcL (0.0-1.3); Monocytes % 9.3 %; Neutrophils # 2.4 K/mcL (1.6-8.9); Nucleated Red Blood Cells 0.4 /100 WBC (0); Platelet Count 308 K/mcL (140-400); Red Blood Count 3.64 M/mcL (4.19-5.50); Red Cell Distribution Width 14.5 % (11.5-14.5); Segmented Neutrophils % 45.7 %
[2017-07-07 06:08] LABS: Calcium 8.3 mg/dL (8.6-10.3); Magnesium 1.6 mg/dL (1.6-2.6); Potassium 4.1 mEq/L (3.5-5.1)
--- NOTE | 2017-07-07 06:45 | Electrocardiograph Report ---
[address] [place] [address] Test Date: 2017-07-03 Pat Name: Abelardo Hernandez Department: 102 Room: 2A25 Gender: M [employer]: Phil : 1965 Requested By: Mitchel Ramachandran Order Number: [id number] Reading MD: Dogulas Garcia MD Measurements Intervals [place] Rate: 91 P: -13 [place]: 152 QRS: 31 QRSD: 89 T: 108 QT: 348 QTc: 396 Interpretive Statements SINUS RHYTHM PROBABLE INFERIOR MYOCARDIAL INFARCTION, PROBABLY OLD CONSIDER LATERAL ISCHEMIA Electronically Signed On 07-07-2017 6:43:42 EDT by Douglas Garcia MD
--- NOTE | 2017-07-07 06:51 | Electrocardiograph Report ---
[address] [place] [address] Test Date: 2017-07-03 Pat Name: Abelardo Hernandez Department: 103 Room: 2A25 Gender: M [employer] Faculty Member: ERIK : 1965 Requested By: Anitra Nguyen Order Number: [id number] Reading MD: Douglas Garcia MD Measurements Intervals [place] Rate: 93 P: -25 [place]: 141 QRS: 18 QRSD: 89 T: 70 QT: 347 QTc: 398 Interpretive Statements SINUS RHYTHM WITH OCCASIONAL VENTRICULAR PREMATURE COMPLEXES INFERIOR MYOCARDIAL INFARCTION, PROBABLY OLD Electronically Signed On 07-07-2017 6:49:17 EDT by Douglas Garcia MD
[2017-07-07] MEDS ORDERED: 0.9 % Sodium Chloride 2,000 ML ONE (07:31)
[2017-07-07] MEDS ORDERED: 0.9 % Sodium Chloride 250 ML IVC PRN (07:40)
[2017-07-07] MEDS ORDERED: *HR* Heparin 10,000 UNIT/10 ML VIAL IV PRN (07:40)
[2017-07-07] MEDS ORDERED: Heparin 1,000 UNITS/500 mL 500 ML ONE (08:40)
[2017-07-07] MEDS: Lactobacillus 1 EACH CAP.SPRINK PO SCH ×2 (08:42→22:20)
[2017-07-07] MEDS: Insulin LISPRO 300 UNITS/3 ML VIAL SQ SCH ×4 (08:43→21:27)
[2017-07-07] MEDS: Aspirin Enteric Coated 81 MG Tablet PO SCH (08:43)
[2017-07-07] MEDS: cefTRIAXone 1,000 MG in Water for inj. (sterile) 20 ML 10 ML IVP SCH (08:44)
[2017-07-07] MEDS ORDERED: Magnesium Oxide 400 MG TABLET PO ONE (09:28)
[2017-07-07] MEDS ORDERED: *HR* Midazolam HCl 2 MG/2 ML VIAL ONE (09:39)
[2017-07-07] MEDS ORDERED: *HR* Midazolam HCl 2 MG/2 ML VIAL IVP ONE (09:39)
[2017-07-07] MEDS ORDERED: *HR* FentaNYL (PF) 100 MCG/2 ML VIAL IVP ONE (09:39)
[2017-07-07] MEDS ORDERED: *HR* FentaNYL (PF) 100 MCG/2 ML VIAL ONE (09:39)
[2017-07-07] MEDS ORDERED: *HR* Heparin 5,000 UNIT/ML VIAL ONE ×2 (09:53→09:57)
--- NOTE | 2017-07-07 11:25 | Nephrology Progress Note ---
Date of Encounter: 07/07/17 Time of Encounter: 11:23 - Assessment and Plan (1) ESRD (end stage renal disease) Current Visit: Yes Status: Acute HD MWF. HD today. can be followed up Outpatient. Cath replaced by IR yesterday. - avoid nephrotoxins - renal dosing - renal diet (2) Abdominal pain Current Visit: Yes Status: Acute resolved Qualifiers: Qualified Code(s): R10.9 - Unspecified abdominal pain (3) Anxiety Current Visit: Yes Status: Chronic per primary team (4) Debility Current Visit: Yes Status: Acute per primary team (5) Diabetes Current Visit: Yes Status: Chronic per primary team Qualifiers: Diabetes mellitus type: type 2 Diabetes mellitus longterm insulin use: without termite treater use Diabetes mellitus complication status: without complication Qualified Code(s): E11.9 - Type 2 diabetes mellitus without complications (6) Hemodialysis catheter malfunction Current Visit: Yes Status: Acute see above Qualifiers: Qualified Code(s): T82.41XA - Breakdown (mechanical) of vascular dialysis catheter, initial encounter (7) Hypertension Current Visit: No Status: Chronic per primary team Qualifiers: Hypertension type: essential hypertension Qualified Code(s): I10 - Essential (primary) hypertension (8) Hypotension Current Visit: Yes Status: Acute post-hd hypotension. see above Qualifiers: Hypotension type: other hypotension type Qualified Code(s): I95.89 - Other hypotension (9) Urinary tract infection Current Visit: Yes Status: Acute per primary team Qualifiers: Urinary tract infection type: acute cystitis Hematuria presence: without hematuria Qualified Code(s): N30.00 - Acute cystitis without hematuria Subjective Principal diagnosis: ESRD Interval history: Mr Hernandez is a 52 yo M ESRD HD MWF. Patient seen and examined in Dialysis today. Patient states he's feeling much better today, and has no new complaints. Patient denies n/v/d, f/c, cp/sob. Objective - Vital Signs Vital signs: Vital Signs Temp Pulse Resp BP Pulse Ox 07/07/17 09:54 85 14 131/82 100 07/07/17 09:50 81 12 141/81 100 07/07/17 09:48 101 20 175/96 100 07/07/17 08:09 98.1 F 81 16 122/76 96 07/06/17 23:24 98.9 F 81 18 125/79 97 07/06/17 19:35 98.2 F 73 18 113/65 97 07/06/17 18:01 98.2 F 68 16 114/72 96 07/06/17 17:40 98.0 F 22 165/92 07/06/17 17:30 165/101 07/06/17 17:15 170/107 07/06/17 17:00 164/108 07/06/17 16:45 162/106 07/06/17 16:30 156/99 07/06/17 16:15 163/103 07/06/17 16:00 160/107 07/06/17 15:45 188/110 07/06/17 15:30 189/112 07/06/17 15:15 98.2 F 20 174/113 07/06/17 14:24 75 20 165/98 97 07/06/17 12:13 98.2 F 78 18 121/76 96 Intake and Output 07/06/17 07/07/17 07/07/17 23:59 07:59 15:59 Intake Total 0 / 0 Output Total 450 / 450 200 / 200 Balance -450 / -450 -200 / -200 Intake: Oral 0 / 0 Output: Total Dialysis (HD) Output 450 / 450 Straight Cath 200 / 200 Other: Meal Dinner Percent of Meal Consumed 0% Blood Glucose* 122 149 Hemodialysis Net Fluid Removed 0 (mL) - General Appearance General appearance: Present: well-developed, well-nourished, appears started age Neck: Present: supple Cardiology: Present: no murmurs, no rub, no gallops, no edema, regular rate, regular rhythm, normal S1, normal S2 Gastrointestinal: Present: normoactive bowel sounds, no tenderness Integumentary: Present: warm and dry Neurologic: Present: no focal deficit, alert and oriented x3 Psychiatric: Present: mood/affect appropriate, cooperative - Lab 07/07/17 05:00 07/07/17 05:00 Most recent lab results Calcium 8.3 mg/dL (8.6-10.3) L 07/07/17 05:00 Phosphorus 3.1 mg/dL (2.7-4.5) 07/04/17 05:29 Magnesium 1.6 mg/dL (1.6-2.6) 07/07/17 05:00 Urine Creatinine 54 mg/dL 07/06/17 00:05 Ur Total Protein 24 Hr 42235 mg/day (50-80) H 07/06/17 00:05 Urine Total Protein 487 mg/dL (1-14) H 07/06/17 00:05 Consult Discharge Plan - Plan Referrals: Miya Aden DO [Primary Care Provider] - 07/13/17 10:00 am (web request sent on 07/04/17)
--- NOTE | 2017-07-07 12:11 | Internal Med Progress Note ---
Date of Encounter: 07/07/17 Time of Encounter: 12:09 - Assessment and plan (1) Febrile illness Current Visit: Yes Status: Acute Assessment and plan: Possibly from a urinary tract infection. Has been started empirically on admission on Zyvox. I changed him to Rocephin on 07/05. Patient is afebrile now. Cultures are negative. (2) Dizziness Current Visit: Yes Status: Acute Assessment and plan: CT head was negative on admission. The patient has positive orthostatics and I started him on Midodrine. Check orthostatics. Echocardiogram carotid ultrasounds are unremarkable . (3) Anemia in chronic kidney disease Current Visit: Yes Status: Acute Assessment and plan: FOBT negative. Hemoglobin is stable. hemoglobin stable. Qualifiers: Chronic kidney disease stage: on chronic dialysis Qualified Code(s): N18.6 - End stage renal disease; D63.1 - Anemia in chronic kidney disease; D63.1 - Anemia in chronic kidney disease; Z99.2 - Dependence on renal dialysis; Z99.2 - Dependence on renal dialysis; Z99.2 - Dependence on renal dialysis; Z99.2 - Dependence on renal dialysis (4) ESRD (end stage renal disease) Current Visit: Yes Status: Acute Assessment and plan: Dialysis per nephrology. Were having issues with new dialysis catheter not dialyzing well. Spoke to Dr. Womack and he is making arrangement with IR. The patient will not be discharged today until his dialysis catheter is functional. (5) Diabetes Current Visit: Yes Status: Chronic Assessment and plan: Continue current Levemir 25 units. Continue sliding scale. Continue Accu- Cheks. Qualifiers: Diabetes mellitus type: type 2 Diabetes mellitus lobsterman insulin use: without lobsterman use Diabetes mellitus complication status: without complication Qualified Code(s): E11.9 - Type 2 diabetes mellitus without complications (6) Neurogenic bladder Current Visit: No Status: Chronic Assessment and plan: Urology is following. Has scrotal pain which urology is aware of and an US is ordered. A Gaitan has been placed. He follows up with urology as an outpatient too. He used to do self intermittent catheterization. (7) DVT prophylaxis Current Visit: No Status: Acute Assessment and plan: Heparin subcutaneous - Subjective Interval history: Patient was seen and examined. He had a dialysis catheter changed yesterday and changed again this morning from what I understand. Dialysis nurse tells me that the third is not really dialyzing well. Otherwise the patient feels well other than some nausea urine there. Afebrile. Says his dizziness is much better. The patient has not been feeling well for some time now. Reports episodes of significant dizziness. He feels fatigued. Recently went into end- stage renal disease requiring dialysis. - Constitutional Vitals: Temp Pulse Resp BP Pulse Ox 98.1 F 85 14 131/82 100 07/07/17 08:09 07/07/17 09:54 07/07/17 09:54 07/07/17 09:54 07/07/17 09:54 Exam: GEN: NAD CVS: RRR. S1, S2, No m/r/g RESP: CTAB ABD: Soft, NT, ND, +BS EXT: No edema. 2+ DP. No rashes lower extremity is wrapped due to venous ulcerations. NEURO: Nonfocal Internal Medicine: Result - Labs CBC & Chem 7: 07/07/17 05:00 07/07/17 05:00 Labs: Short CBC 07/07/17 Range/Units 05:00 WBC 5.3 (4.3-11.1) K/mcL Hgb 10.0 L (12.9-16.9) g/dL Hct 31.3 L (37.5-50.1) % Plt Count 308 (140-400) K/mcL Neutrophils # 2.4 (1.6-8.9) K/mcL BMP 07/07/17 05:00 Sodium 135 L Potassium 4.1 Chloride 101 Carbon Dioxide 24 BUN 30 H Creatinine 4.27 H Glucose 169 H Calcium 8.3 L - ABG Interpretation ABG results: PT/INR, D-dimer PT 11.5 Seconds (9.4-12.1) 07/03/17 19:44 - Impressions Impressions Catheter Change 07/06/17 00:00 IMPRESSION: Successful fluoroscopic guided exchange of a tunneled dialysis catheter D/ / Royal Nelson MD / Royal Nelson MD Interpreting Provider: Royal Nelson MD Scrotum Ultrasound 07/06/17 14:15 IMPRESSION: 1. Normal appearance of the bilateral testicles with normal bilateral arterial and venous Doppler flow. 2. 0.6 cm right epididymal cyst. D/ / James Sosa MD / James Sosa MD Interpreting Provider: James Sosa MD Consult Discharge Plan - Plan Referrals: Miya Aden DO [Primary Care Provider] - 07/13/17 10:00 am (web request sent on 07/04/17)
--- NOTE | 2017-07-07 16:07 | Urology Progress Note ---
Date of Encounter: 07/07/17 Time of Encounter: 16:06 - Assessment and Plan (1) Urinary tract infection Current Visit: Yes Status: Acute Qualifiers: Urinary tract infection type: acute cystitis Hematuria presence: without hematuria Qualified Code(s): N30.00 - Acute cystitis without hematuria (2) Hydronephrosis Current Visit: No Status: Acute Qualifiers: Hydronephrosis type: with ureteral calculous obstruction Qualified Code(s) : N13.2 - Hydronephrosis with renal and ureteral calculous obstruction (3) Neurogenic bladder Current Visit: No Status: Chronic Assessment and plan: continue with cic every 4-6 hrs to keep bladder drained. f/u with DR. Peraza on 07/21/17 at 945. (4) Phimosis Current Visit: Yes Status: Acute Progress Note Narrative: Patient seen. catheter broke last night and was removed. He has restarted CIC. no problems and draining good urine. Objective Initial Vital Signs Temp Pulse Resp BP Pulse Ox 101.1 F H 91 18 169/92 99 07/03/17 19:34 07/03/17 19:34 07/03/17 19:34 07/03/17 19:34 07/03/17 19:34 - General physical appearance Present: well developed, well nourished - Respiratory Present: normal expansion, normal respiratory effort - Abdomen Present: soft. Absent: masses - Labs 07/07/17 05:00 07/07/17 05:00 Diabetes panel 07/07/17 Range/Units 05:00 Sodium 135 L (136-145) mEq/L Potassium 4.1 (3.5-5.1) mEq/L Chloride 101 (98-107) mEq/L Carbon Dioxide 24 (23-29) mEq/L BUN 30 H (6-20) mg/dL Creatinine 4.27 H (0.70-1.30) mg/dL Glucose 169 H (70-105) mg/dL Calcium 8.3 L (8.6-10.3) mg/dL Calcium panel 07/07/17 Range/Units 05:00 Calcium 8.3 L (8.6-10.3) mg/dL Pituitary panel 07/07/17 Range/Units 05:00 Sodium 135 L (136-145) mEq/L Potassium 4.1 (3.5-5.1) mEq/L Chloride 101 (98-107) mEq/L Carbon Dioxide 24 (23-29) mEq/L BUN 30 H (6-20) mg/dL Creatinine 4.27 H (0.70-1.30) mg/dL Glucose 169 H (70-105) mg/dL Calcium 8.3 L (8.6-10.3) mg/dL Adrenal panel 07/07/17 Range/Units 05:00 Sodium 135 L (136-145) mEq/L Potassium 4.1 (3.5-5.1) mEq/L Chloride 101 (98-107) mEq/L Carbon Dioxide 24 (23-29) mEq/L BUN 30 H (6-20) mg/dL Creatinine 4.27 H (0.70-1.30) mg/dL Glucose 169 H (70-105) mg/dL Calcium 8.3 L (8.6-10.3) mg/dL Consult Discharge Plan - Plan Referrals: Miya Aden DO [Primary Care Provider] - 07/13/17 10:00 am (web request sent on 07/04/17)
[2017-07-07] MEDS: Insulin DETEMIR 100 UNIT/ML X5UNITS SQ SCH (22:20)
[2017-07-08] MEDS ORDERED: *HR* LORazepam 1 MG TABLET PO ONE (01:23)
[2017-07-08] MEDS: *HR* Heparin 5,000 UNIT/ML VIAL SQ SCH (05:21)
[2017-07-08 06:00] LABS: Hematocrit 30.1 % (37.5-50.1); Hemoglobin 9.7 g/dL (12.9-16.9); Mean Corpuscular HGB Conc 32.2 g/dL (31.6-35.5); Mean Corpuscular Hemoglobin 27.6 pg (28.0-33.3); Mean Corpuscular Volume 85.8 fL (83.0-100.0); Mean Platelet Volume 8.8 fL (9.4-12.4); Platelet Count 251 K/mcL (140-400); Red Blood Count 3.51 M/mcL (4.19-5.50); Red Cell Distribution Width 14.9 % (11.5-14.5)
[2017-07-08 06:22] LABS: Calcium 8.4 mg/dL (8.6-10.3); Potassium 3.9 mEq/L (3.5-5.1)
[2017-07-08] MEDS ORDERED: 0.9 % Sodium Chloride 250 ML IVC PRN (07:17)
[2017-07-08] MEDS ORDERED: *HR* Heparin 10,000 UNIT/10 ML VIAL IV PRN (07:17)
[2017-07-08] MEDS ORDERED: 0.9 % Sodium Chloride 2,000 ML ONE (07:18)
[2017-07-08] MEDS: Lactobacillus 1 EACH CAP.SPRINK PO SCH (08:05)
[2017-07-08] MEDS: Aspirin Enteric Coated 81 MG Tablet PO SCH (08:05)
[2017-07-08] MEDS: Insulin LISPRO 300 UNITS/3 ML VIAL SQ SCH ×2 (08:33→12:02)
--- NOTE | 2017-07-08 10:33 | Discharge Summary ---
Orders not resulted at time of discharge: Pending orders 07/09/17 04:00 BMP [Basic Metabolic Panel] AM 0400 Complete Blood Count w/o Diff [HEME] AM 04007/10/17 04:00 BMP [Basic Metabolic Panel] AM 0400 Complete Blood Count w/o Diff [HEME] AM 0400 07/11/17 04:00 BMP [Basic Metabolic Panel] AM 0400 Complete Blood Count w/o Diff [HEME] AM 0400 07/12/17 04:00 BMP [Basic Metabolic Panel] AM 0400 Complete Blood Count w/o Diff [HEME] AM 0400 07/13/17 04:00 BMP [Basic Metabolic Panel] AM 0400 Complete Blood Count w/o Diff [HEME] AM 0400 Date of Encounter: 07/08/17 Time of Encounter: 10:31 - Discharge Diagnosis (1) Febrile illness Priority: Primary Status: Acute (2) Dizziness Priority: Primary Status: Acute (3) Anemia in chronic kidney disease Priority: Secondary Status: Acute Qualifiers: Chronic kidney disease stage: on chronic dialysis Qualified Code(s): N18.6 - End stage renal disease; D63.1 - Anemia in chronic kidney disease; D63.1 - Anemia in chronic kidney disease; Z99.2 - Dependence on renal dialysis; Z99.2 - Dependence on renal dialysis; Z99.2 - Dependence on renal dialysis; Z99.2 - Dependence on renal dialysis (4) ESRD (end stage renal disease) Priority: Secondary Status: Acute (5) Diabetes Priority: Secondary Status: Chronic Qualifiers: Diabetes mellitus type: type 2 Diabetes mellitus long term care pharmacist insulin use: without long term care pharmacist use Diabetes mellitus complication status: without complication Qualified Code(s): E11.9 - Type 2 diabetes mellitus without complications (6) Neurogenic bladder Priority: Primary Status: Chronic Hospital course: Mr. Hernandez is a 52 year old male with DMII, venous stasis [place] ulcers, ESRD on new HD within the past month, recently admitted early 06/2017 for VRE, nikolas UTI on antibiotics, who presented with acute 1 day weakness, passing out, and inability to stand. Those symptoms started after dialysis. He reported dizziness generalized weakness, pre-syncope and was found to be hypotensive along with a temp 101.8 leading to admission. His urine upon admission looked dirty and he was started on rocephin but culture remained negative and was discharged on Omnicef to finish 7 days. Regarding his dizziness, he was found orthostatic and I suspect this is all happneing with his dialysis. Discussed with Dr. Womack and he was ok with starting midodrine. The patient could not tolerate 5mg TID of that and it was decreased to 2.5 mg TID due to nausea. EKG was with no ST or T wave changes or arrhythmias. A CT head was negative. An echo showed EF that was "probably normal", although no definitive EF was reported. Cartoid duplex was unremarkable. The patient was afebrile for > 48hours prior to discharge. He had issues with his temporary dialysis catheter and it was changed in IR per nephrology. He was seen by urology due to "sphincter paralysis" which he says is secondary to diabetes. They initially placed a carrera and then took it out and recommended self intermittent caths which the patient is accustomed to from before admission. The patient felt well on 07/08 for discharge. He was cleared by nephrology as well. He was agreeable for discharge on 07/07 but we had to hold his discharge due to issues with dialysis catheter. On 07/08, I saw him in the morning while getting dialyzed and he felt well and was ok with discharge. Later in the day, he was requesting to stay as he thought he is not ready. I did explain to him that with dialysis, he is likely to continue to feel unwell with dizziness that is transient on those days and that midodrine should help somewhat. He again refused discharge. I asked PT/OT to see the patient and they recommended home. Eventually, I spoke to the patient again and his aunt and he was agreeable to discharge on 07/08. - Time Spent with Patient Total time spent providing and/or coordinating discharge services: Greater than 30 minutes - Discharge Medications Prescriptions: Cefdinir [Omnicef] 300 mg PO DAILY@1800 #3 capsule Metoclopramide [Reglan] 5 mg PO Q8H PRN #30 tablet PRN Reason: Nausea Midodrine [ProAmatine] 2.5 mg PO 0800,1200,1700 #90 tablet Home Medications: Aspirin Enteric Coated [Aspirin EC] 81 mg PO DAILY 06/15/17 [History] Insulin ASPART [Novolog Flexpen] 10 units SQ BID 06/15/17 [History] Insulin ASPART [Novolog Flexpen] 15 units SQ 1200 03/05/18 [History] Lisinopril [Zestril] 10 mg PO DAILY 06/15/17 [History] Insulin Glargine,Hum.rec.anlog [Lantus Solostar] 25 units SQ HS #0 06/19/17 [Rx] Saccharomyces Boulardii [Florastor] 250 mg PO BID #30 capsule 06/25/17 [Rx] Ergocalciferol (VITAMIN D2) [Vitamin D2] 50,000 unit PO WE 07/03/17 [History] Cefdinir [Omnicef] 300 mg PO DAILY@1800 #3 capsule 07/08/17 [Rx] Metoclopramide [Reglan] 5 mg PO Q8H PRN #30 tablet 07/08/17 [Rx] Midodrine [ProAmatine] 2.5 mg PO 0800,1200,1700 #90 tablet 07/08/17 [Rx] Allergies/Adverse Reactions: 3 Allergy/AdvReac Type Severity Reaction Status Date / Time No Known Allergies Allergy Verified 06/23/17 09:33 Date of admission: 07/04/17 01:16 Primary care physician: Jacobo Booker Consults: 07/04/17 11:03 Consult to Physical Therapy [CONS] Routine Comment: Evaluate, develop and implement POC Reason for Consult: Patient with falls at home. Evaluate for the need for outpatient PT. Does patient have active BEDREST order?: No Is patient medically & hemodynamically stable?: Yes Patient assessed for mobility or mobilized this visit?: No 07/04/17 11:10 Consult to Interventional Radiology [CONS] Routine Consulting Provider: Radiology Interventional Cols Reason for Consult: Need tunneled catheter exchange and evaluation for fibrin sheath. Patient reports pain with dialysis. Call Completed: No 07/06/17 07:36 Consult to Occupational Therapy [CONS] Routine Comment: Evaluate, develop and implement POC Reason for Consult: pt weak Does patient have active BEDREST order?: No Is patient medically & hemodynamically stable?: Yes 07/06/17 08:15 Consult to Dialysis [CONS] ONCE 07/07/17 06:00 Consult to Interventional Radiology [CONS] Stat Consulting Provider: Radiology Interventional Cols Reason for Consult: CVC not functioning properly. Time Notified: 15:59 Call Completed: Yes 07/07/17 07:45 Consult to Dialysis [CONS] ONCE 07/08/17 07:30 Consult to Dialysis [CONS] ONCE - Constitutional Vitals: Temp Pulse Resp BP Pulse Ox 97.9 F 78 18 123/77 99 07/08/17 10:12 07/08/17 06:56 07/08/17 10:12 07/08/17 10:09 07/08/17 06:56 - Patient Status Disposition: Home, Self-Care Condition: Fair Overall status at discharge: patient is progressing back to baseline - Discharge Instructions Follow Up With: Miya Aden DO [Primary Care Provider] - 07/13/17 10:00 am () Luke Peraza MD [Partnered Physician] - 07/21/17 9:45 am () - Diet and Activity Activity: increase activity as tolerated Diet: diabetic diet, low salt diet
--- NOTE | 2017-07-08 10:43 | Nephrology Progress Note ---
Date of Encounter: 07/08/17 Time of Encounter: 10:42 - Assessment and Plan (1) ESRD (end stage renal disease) Current Visit: Yes Status: Acute HD MWF. Renal vitamins. Renal dose medications. Renal diet. Additional dialysis and ultrafiltration as needed. Will limit UF secondary to complaints of post dialysis hypotension. 24 hour urine revealed a protein/creatine of 12. He will be referred for peritoneal dialysis education He was seen on dialysis today. (2) Debility Current Visit: Yes Status: Acute PT ordered. (3) Hemodialysis catheter malfunction Current Visit: Yes Status: Acute Catheter exchange performed Qualifiers: Qualified Code(s): T82.41XA - Breakdown (mechanical) of vascular dialysis catheter, initial encounter (4) Abdominal pain Current Visit: Yes Status: Acute Resolved. Patient with nausea that is likely gastroparesis and responded to the use of Reglan Qualifiers: Qualified Code(s): R10.9 - Unspecified abdominal pain (5) Hypotension Current Visit: Yes Status: Acute Improved. He was orthostatic. He likely was volume depleted. Qualifiers: Hypotension type: other hypotension type Qualified Code(s): I95.89 - Other hypotension (6) Urinary tract infection Current Visit: Yes Status: Acute Continue antibiotics. Qualifiers: Urinary tract infection type: acute cystitis Hematuria presence: without hematuria Qualified Code(s): N30.00 - Acute cystitis without hematuria (7) Anxiety Current Visit: Yes Status: Chronic (8) Hypertension Current Visit: No Status: Chronic Blood pressure controlled. Qualifiers: Hypertension type: essential hypertension Qualified Code(s): I10 - Essential (primary) hypertension (9) Diabetes Current Visit: Yes Status: Chronic Qualifiers: Diabetes mellitus type: type 2 Diabetes mellitus senior care insulin use: without senior care use Diabetes mellitus complication status: without complication Qualified Code(s): E11.9 - Type 2 diabetes mellitus without complications Subjective Principal diagnosis: ESRD Interval history: Patient feels much better. He has improved energy and states he is moving better he has no new complaints. His nausea improved after starting Reglan Objective - Vital Signs Vital signs: Vital Signs Temp Pulse Resp BP Pulse Ox 07/08/17 10:12 97.9 F 18 07/08/17 10:09 123/77 07/08/17 10:08 132/83 07/08/17 10:07 137/84 03/28/18 10:05 124/77 07/08/17 10:00 127/79 07/08/17 09:45 134/73 07/08/17 09:30 127/79 07/08/17 09:15 134/80 07/08/17 09:00 98.0 F 18 137/80 07/08/17 06:56 98.2 F 78 16 117/76 99 07/08/17 04:52 98.6 F 80 16 98/62 93 07/08/17 01:12 99 F 55 16 107/69 93 07/08/17 00:08 99.1 F 89 16 103/67 93 07/07/17 23:10 93 07/07/17 21:09 98.7 F 83 16 110/71 93 07/07/17 12:25 99.4 F 1 125/84 07/07/17 12:15 130/88 07/07/17 12:00 125/94 07/07/17 11:45 125/94 07/07/17 11:30 105/82 07/07/17 11:15 135/98 07/07/17 11:00 115/82 07/07/17 10:45 116/83 Intake and Output 07/07/17 07/08/17 07/08/17 23:59 07:59 15:59 Intake Total 140 / 140 600 / 600 Output Total 200 / 200 135 / 135 2600 / 2600 Balance -60 / -60 -135 / -135 -1999 / -1999 Intake: Oral 140 / 140 Intake, Rinseback and Flushes 600 / 600 Output: Urine 0 / 0 Total Dialysis (HD) Output 2600 / 2600 Straight Cath 200 / 200 135 / 135 Other: Meal Dinner Percent of Meal Consumed 5% # Voids 0 Weight 120.066 kg Blood Glucose* 164 128 Hemodialysis Net Fluid Removed 2000 (mL) Patient Weight 07/08/17 23:59 Weight 120.066 kg - General Appearance General appearance: Present: well-developed, well-nourished, obese EENT: Present: ATNC Cardiology: Present: regular rate Integumentary: Present: warm and dry Neurologic: Present: alert and oriented x3 Psychiatric: Present: mood/affect appropriate - Lab 07/08/17 05:27 07/08/17 05:27 Most recent lab results Calcium 8.4 mg/dL (8.6-10.3) L 07/08/17 05:27 Phosphorus 3.1 mg/dL (2.7-4.5) 07/04/17 05:29 Magnesium 1.6 mg/dL (1.6-2.6) 07/07/17 05:00 Urine Creatinine 54 mg/dL 07/06/17 00:05 Ur Total Protein 24 Hr 14414 mg/day (50-80) H 07/06/17 00:05 Urine Total Protein 487 mg/dL (1-14) H 07/06/17 00:05 Consult Discharge Plan - Plan Referrals: Miya Aden DO [Primary Care Provider] - 07/13/17 10:00 am () Luke Peraza MD [Partnered Physician] - 07/21/17 9:45 am () Prescriptions: Cefdinir [Omnicef] 300 mg PO DAILY@1800 #3 capsule Metoclopramide [Reglan] 5 mg PO Q8H PRN #30 tablet PRN Reason: Nausea Midodrine [ProAmatine] 2.5 mg PO 0800,1200,1700 #90 tablet
[2017-07-08] MEDS: cefTRIAXone 1,000 MG in Water for inj. (sterile) 20 ML 10 ML IVP SCH (11:57)
[2017-07-08 12:08] VITALS: BP 115/81
--- NOTE | 2017-07-08 12:09 | Physician Discharge Referral ---
- Diagnosis (1) Febrile illness Priority: Primary Status: Acute (2) Dizziness Priority: Primary Status: Acute (3) Anemia in chronic kidney disease Priority: Secondary Status: Acute (4) ESRD (end stage renal disease) Priority: Secondary Status: Acute (5) Diabetes Priority: Secondary Status: Chronic (6) Neurogenic bladder Priority: Primary Status: Chronic - Respiratory Orders Smoking Cessation: Smoking cessation has been advised. For more information, call the [place] Tobacco Quit Line at 3-517-RCCI-NOW. - Services Needed Following services are medically necessary services: Home Health Aide - Transfer Medications Prescriptions: Cefdinir [Omnicef] 300 mg PO DAILY@1800 #3 capsule Metoclopramide [Reglan] 5 mg PO Q8H PRN #30 tablet PRN Reason: Nausea Midodrine [ProAmatine] 2.5 mg PO 0800,1200,1700 #90 tablet Home Medications: Aspirin Enteric Coated [Aspirin EC] 81 mg PO DAILY 06/15/17 [History] Insulin ASPART [Novolog Flexpen] 10 units SQ BID 06/15/17 [History] Insulin ASPART [Novolog Flexpen] 15 units SQ 1200 06/15/17 [History] Lisinopril [Zestril] 10 mg PO DAILY 06/15/17 [History] Insulin Glargine,Hum.rec.anlog [Lantus Solostar] 25 units SQ HS #0 06/19/17 [Rx] Saccharomyces Boulardii [Florastor] 250 mg PO BID #30 capsule 06/25/17 [Rx] Ergocalciferol (VITAMIN D2) [Vitamin D2] 50,000 unit PO WE 07/03/17 [History] Cefdinir [Omnicef] 300 mg PO DAILY@1800 #3 capsule 07/08/17 [Rx] Metoclopramide [Reglan] 5 mg PO Q8H PRN #30 tablet 07/08/17 [Rx] Midodrine [ProAmatine] 2.5 mg PO 0800,1200,1700 #90 tablet 07/08/17 [Rx] Allergies/Adverse Reactions: 3 Allergy/AdvReac Type Severity Reaction Status Date / Time No Known Allergies Allergy Verified 06/23/17 09:33 Certification: Further, I certify that my clinical findings support that this patient is homebound (i.e. absences from home require considerable and taxing effort and are for medical reasons or catholic services or infrequently or short duration when for other reasons) because: Homebound Reason: Patient requires assistance of a person or device to safely leave home Attestation: My signature below is to certify that this patient is under my care and that I, or nurse practitioner, or a physician's medicine assistant working with me, has a face-to -face encounter with this patient.
--- NOTE | 2017-07-08 14:56 | Internal Med Progress Note ---
Date of Encounter: 07/08/17 Time of Encounter: 14:54 - Assessment and plan (1) Goals of care, counseling/discussion Current Visit: Yes Status: Acute Assessment and plan: Patient is ready to discharge from my standpoint and from nephrology. He just does not feel comfortable to discharge home. I explained to him that he is medically cleared and I will get PT/OT to see him to evaluate if he needs placement. (2) Febrile illness Current Visit: Yes Status: Acute Assessment and plan: Possibly from a urinary tract infection. Has been started empirically on admission on Zyvox. I changed him to Rocephin on 07/05. Patient is afebrile now. Cultures are negative. (3) Dizziness Current Visit: Yes Status: Acute Assessment and plan: CT head was negative on admission. The patient has positive orthostatics and I started him on Midodrine. Echocardiogram carotid ultrasounds are unremarkable . PT/OT (4) Anemia in chronic kidney disease Current Visit: Yes Status: Acute Assessment and plan: FOBT negative. Hemoglobin is stable. hemoglobin stable. Qualifiers: Chronic kidney disease stage: on chronic dialysis Qualified Code(s): N18.6 - End stage renal disease; D63.1 - Anemia in chronic kidney disease; D63.1 - Anemia in chronic kidney disease; Z99.2 - Dependence on renal dialysis; Z99.2 - Dependence on renal dialysis; Z99.2 - Dependence on renal dialysis; Z99.2 - Dependence on renal dialysis (5) ESRD (end stage renal disease) Current Visit: Yes Status: Acute Assessment and plan: Dialysis per nephrology. Were having issues with new dialysis catheter not dialyzing well. Spoke to Dr. Womack and he is making arrangement with IR. The patient will not be discharged today until his dialysis catheter is functional. (6) Diabetes Current Visit: Yes Status: Chronic Assessment and plan: Continue current Levemir 25 units. Continue sliding scale. Continue Accu- Cheks. Qualifiers: Diabetes mellitus type: type 2 Diabetes mellitus terminal carman insulin use: without fpc use Diabetes mellitus complication status: without complication Qualified Code(s): E11.9 - Type 2 diabetes mellitus without complications (7) Neurogenic bladder Current Visit: No Status: Chronic Assessment and plan: Urology is following. Has scrotal pain which urology is aware of and an US is ordered. A Gaitan has been placed. He follows up with urology as an outpatient too. He used to do self intermittent catheterization. (8) DVT prophylaxis Current Visit: Yes Status: Acute Assessment and plan: heparin sq - Subjective Interval history: Patient was seen and examined. Saw him in dialysis and stated that he feels well. . Afebrile. Says his dizziness is much better. The patient has not been feeling well for some time now. Reports episodes of significant dizziness. He feels fatigued. Recently went into end-stage renal disease requiring dialysis. - Constitutional Vitals: Temp Pulse Resp BP Pulse Ox 97.9 F 95 18 115/81 94 07/08/17 11:10 07/08/17 11:00 07/08/17 11:10 07/08/17 11:10 07/08/17 11:00 Exam: GEN: NAD CVS: RRR. S1, S2, No m/r/g RESP: CTAB ABD: Soft, NT, ND, +BS EXT: No edema. 2+ DP. No rashes lower extremity is wrapped due to venous ulcerations. NEURO: Nonfocal Internal Medicine: Result - Labs CBC & Chem 7: 07/08/17 05:27 07/08/17 05:27 Labs: Short CBC 07/08/17 Range/Units 05:27 WBC 6.0 (4.3-11.1) K/mcL Hgb 9.7 L (12.9-16.9) g/dL Hct 30.1 L (37.5-50.1) % Plt Count 251 (140-400) K/mcL BMP 07/08/17 05:27 Sodium 137 Potassium 3.9 Chloride 101 Carbon Dioxide 27 BUN 28 H Creatinine 4.54 H Glucose 145 H Calcium 8.4 L - ABG Interpretation ABG results: PT/INR, D-dimer PT 11.5 Seconds (9.4-12.1) 07/03/17 19:44 - Impressions Impressions Chest X-Ray 07/08/17 01:06 IMPRESSION: No acute osseous abnormality. D/ / Chintan Hampton MD / Chintan Hampton MD Interpreting Provider: Chintan Hampton MD Consult Discharge Plan - Plan Referrals: Miya Aden DO [Primary Care Provider] - 07/13/17 10:00 am () Luke Peraza MD [Partnered Physician] - 07/21/17 9:45 am () Prescriptions: Cefdinir [Omnicef] 300 mg PO DAILY@1800 #3 capsule Metoclopramide [Reglan] 5 mg PO Q8H PRN #30 tablet PRN Reason: Nausea Midodrine [ProAmatine] 2.5 mg PO 0800,1200,1700 #90 tablet
[2017-07-08] MEDS ORDERED: Cefdinir 300 MG CAPSULE PO SCH (18:00)
--- NOTE | 2017-07-08 18:15 | Electrocardiograph Report ---
[address] [place] [address] Test Date: 2017-07-08 Pat Name: Abelardo Hernandez Department: 112 Room: 2A25 Gender: M X [employer] Tech: : 1965 Requested By: Mc Schwarz Order Number: [id number] Reading MD: Bhavya Shah Measurements Intervals [place] Rate: 82 P: -34 CA: 143 QRS: 16 QRSD: 92 T: 14 QT: 389 QTc: 427 Interpretive Statements SINUS RHYTHM WITH OCCASIONAL VENTRICULAR PREMATURE COMPLEXES MINIMAL VOLTAGE CRITERIA FOR LVH, CONSIDER NORMAL VARIANT INFERIOR MYOCARDIAL INFARCTION, OF INDETERMINATE AGE Electronically Signed On 07-08-2017 18:13:38 EDT by Bhavya Shah
== END 2017-07-08 16:50 | disposition home or self-care (01) | DRG 689 ==
LOC: 2ANU 19:29 → EMEROO 19:29 → 2ANU 23:29
PROVIDERS: ADMIT Internal Medicine Hematology & Oncology; ATTEND Internal Medicine

== ENCOUNTER 2017-09-24 09:47 | Observation (INO) ==
--- NOTE | 2017-09-24 10:07 | Emergency Department Note ---
Disposition Clinical Impression: ESRD (end stage renal disease) on dialysis, Atypical chest pain Hemodialysis catheter malfunction Qualifiers: Encounter type: subsequent encounter Qualified Code(s): T82.41XD - Breakdown ( mechanical) of vascular dialysis catheter, subsequent encounter Disposition: Admitted As Inpatient Condition: Fair Referrals: Miya Aden DO [Primary Care Provider] - Forms: ED Satisfaction Letter Time of Disposition: 12:01 Chest Pain HPI - General Chief Complaint: ED Chest Pain Stated Complaint: chest pain, DEA Time Seen by Provider: 09/24/17 09:52 Source: patient Limitations: no limitations Vital Signs Reviewed: Yes Nursing Notes Reviewed: Yes - History of Present Illness HPI Narrative: 52-year-old alert and oriented male presents to emergency department for ongoing left chest pain that is beginning to radiate into the left upper extremity. His pain is localized around the area of a left upper chest hemodialysis permacath. He was seen at this facility on 09/22/17 for the same. 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 He stated that he cannot be dialyzed at his normal rate, as the flow had to be slowed down. He states he usually ran out about 400 mL however the rate had to be slowed down to 240. The patient states that he is scheduled for a dialysis permacath replacement for tomorrow morning however his concern was the worsening left upper chest pain as well as dyspnea, diaphoresis, nausea, and a couple episodes of vomiting. The patient was admitted on the however , due to bed availability in the hospital, he decided to leave AGAINST MEDICAL ADVICE, as he had to wait an extended period of time in the emergency department for a bed. He states today that he is willing to stay in the hospital for further evaluation should that be warranted. Pt complaint: chest pain Onset (ago): day(s) Duration: gradually worsening Pain Location: left chest Severity: moderate Severity scale (1-10): 7 Quality: other ("pounding") Pain Radiation: LUE Improves with: nothing Worsens with: nothing Associated symptoms: Reports: nausea, vomiting, diaphoresis, dyspnea. Denies: palpitations, fever, cough Treatments prior to arrival chest pain: aspirin - Related Data Home Medications Medication Instructions Recorded Confirmed Aspirin [Lo-Dose Aspirin EC] 81 mg PO DAILY 07/30/17 09/24/17 Insulin ASPART [NovoLOG] 10 unit SQ QAM AND QHS 07/30/17 09/24/17 Insulin Glargine [Lantus] 35 unit SQ HS 07/30/17 09/24/17 Midodrine [ProAmatine] 5 mg PO MOFR 09/22/17 09/24/17 Ergocalciferol (VITAMIN D2) 50,000 unit PO WE 09/24/17 09/24/17 [Vitamin D2] Insulin ASPART [NovoLOG] 15 unit SQ 1200 09/24/17 09/24/17 Allergies Allergy/AdvReac Type Severity Reaction Status Date / Time No Known Allergies Allergy Verified 09/22/17 09:14 All systems ED: reviewed and negative except as stated. Constitutional: Denies: fever, chills, weakness, weight change Eyes: Denies: eye pain, eye discharge, vision change ENT ED: Denies: ear pain, throat pain, dental pain, hearing loss, epistaxis, congestion, dysphagia Cardiovascular: Reports: as per HPI, dyspnea on exertion. Denies: palpitations , edema, syncope Respiratory: Reports: as per HPI, dyspnea. Denies: cough, wheezes, hemoptysis, stridor, sputum production Gastrointestinal: Reports: as per HPI, nausea, vomiting. Denies: abdominal pain , diarrhea, constipation, hematemesis, melena, hematochezia Genitourinary: Denies: urgency, dysuria, frequency, hematuria Musculoskeletal: Denies: back pain, neck pain, arthralgia, myalgia Integumentary: Denies: rash, abrasion, lesions Neurological: Denies: headache, weakness, numbness, paresthesias, confusion, abnormal gait, vertigo Psychiatric: Denies: anxiety, depression, suicidal thoughts, homicidal thoughts , auditory hallucinations, visual hallucinations Endocrine: Denies: fatigue Hematological/Lymphatic: Denies: easy bleeding, easy bruising Allergic/Immunologic: Denies: facial swelling, urticaria Chest Pain PMH - Past Medical History Medical history: Reports: diabetes, dialysis, hypertension, renal disease Surgical history: Reports: cholecystectomy Psychiatric history: Reports: anxiety - Social History Smoking Status: Never smoker Alcohol use: Reports: none Drug use: Reports: none Physical Exam - General Limitations: no limitations General appearance: alert - Head Head exam: atraumatic, normocephalic, normal inspection - Eye Eye exam: Present: normal appearance, PERRL, EOMI. Absent: nystagmus - ENT ENT exam: mucous membranes moist - Neck Neck exam: Present: normal inspection, full ROM, trachea midline - Chest Chest inspection: Present: normal inspection, symmetric chest wall rise, other ( Left upper chest hemodialysis permacath in place) - Respiratory Respiratory exam: Present: normal lung sounds bilaterally. Absent: respiratory distress, wheezes, stridor, accessory muscle use, prolonged expiratory phase - Cardiovascular Cardiovascular exam: Present: regular rate, normal rhythm, normal heart sounds - Abdominal Exam Abdominal exam: Present: soft, Non-Tender, normal bowel sounds - Extremities Exam Extremities exam: Present: normal inspection, full ROM. Absent: tenderness, pedal edema - Neurological Exam Neurological exam: Present: alert, oriented X3 - Psychiatric Psychiatric exam: Present: normal affect, normal mood - Skin Skin exam: Present: warm, dry, intact, normal color. Absent: rash Course Course Narrative: 1150: I spoken with Dr. Winn regarding this patient's case. He states that he will be able see the patient in house today. He states that he is agreeable to replacement of the patient's hemodialysis permacatheter if interventional radiology schedule allows it today. I discussed this plan with the hospitalist , Dr. Montana, who has agreed to accept the patient for further observation and treatment. I discussed this plan with Dr. Jimenez, ED attending. Dr. Jimenez has had a [id number] evaluation with patient and agrees with this plan. Vital Signs Temperature 98.2 F 09/24/17 09:48 Pulse Rate 66 09/24/17 09:48 Respiratory Rate 16 09/24/17 09:48 Blood Pressure 205/106 09/24/17 09:48 O2 Sat by Pulse Oximetry 98 09/24/17 09:48 Temperature 98.2 F 09/24/17 09:53 Pulse Rate 81 09/24/17 11:24 Respiratory Rate 16 09/24/17 11:24 Blood Pressure 163/92 09/24/17 11:24 O2 Sat by Pulse Oximetry 97 09/24/17 11:24 Oxygen Delivery Oxygen Delivery Nasal Cannula Chest Pain - Medical Records Medical records reviewed: Yes I reviewed the patient's medical records. - Lab Data Lab results reviewed: Yes I reviewed the patient's lab results. Lab results narrative: Laboratory Last Values WBC 8.0 K/mcL (4.3-11.1) 09/24/17 10:17 RBC 4.03 M/mcL (4.19-5.50) L 09/24/17 10:17 Hgb 12.1 g/dL (12.9-16.9) L 09/24/17 10:17 Hct 35.7 % (37.5-50.1) L 09/24/17 10:17 MCV 88.6 fL (83.0-100.0) 09/24/17 10:17 MCH 30.0 pg (28.0-33.3) 09/24/17 10:17 MCHC 33.9 g/dL (31.6-35.5) 09/24/17 10:17 RDW 13.2 % (11.5-14.5) 09/24/17 10:17 Plt Count 210 K/mcL (140-400) 09/24/17 10:17 MPV 9.9 fL (9.4-12.4) 09/24/17 10:17 Immature Gran % 0.5 % (0-4) 09/24/17 10:17 Seg Neutrophils % 64.9 % 09/24/17 10:17 Lymphocytes % 24.5 % 09/24/17 10:17 Monocytes % 7.7 % 09/24/17 10:17 Eosinophils % 1.9 % 09/24/17 10:17 Basophils % 0.5 % 09/24/17 10:17 Neutrophils # 5.2 K/mcL (1.6-8.9) 09/24/17 10:17 Lymphocytes # 2.0 K/mcL (0.6-4.6) 09/24/17 10:17 Monocytes # 0.6 K/mcL (0.0-1.3) 09/24/17 10:17 Eosinophils # 0.2 K/mcL (0.0-0.6) 09/24/17 10:17 Basophils # 0.0 K/mcL (0.0-0.2) 09/24/17 10:17 PT 10.0 Seconds (9.4-12.1) 09/24/17 10:17 INR 0.9 09/24/17 10:17 APTT 31.1 Seconds (26.0-36.0) 09/24/17 10:17 Sodium 132 mEq/L (136-145) L 09/24/17 10:17 Potassium 5.1 mEq/L (3.5-5.1) 09/24/17 10:17 Chloride 104 mEq/L (98-107) 09/24/17 10:17 Carbon Dioxide 19 mEq/L (23-29) L 09/24/17 10:17 BUN 61 mg/dL (6-20) H 09/24/17 10:17 Creatinine 3.93 mg/dL (0.70-1.30) H 09/24/17 10:17 Est GFR ( Amer) 20 (> 60) L 09/24/17 10:17 Est GFR (Non-Af Amer) 16 (> 60) L 09/24/17 10:17 BUN/Creatinine Ratio 16 (6-26) 09/24/17 10:17 Glucose 370 mg/dL (70-105) H 09/24/17 10:17 Calculated Osmolality 306 (280-300) H 09/24/17 10:17 Calcium 8.0 mg/dL (8.6-10.3) L 09/24/17 10:17 Phosphorus 4.2 mg/dL (2.7-4.5) 09/24/17 10:17 Magnesium 1.4 mg/dL (1.6-2.6) L 09/24/17 10:17 Troponin I < 0.03 ng/mL (< 0.04) 09/24/17 10:17 B-Natriuretic Peptide 109 pg/mL (Less than 100) H 09/24/17 10:17 Result diagrams: 09/24/17 10:17 09/24/17 10:17 Lab Results 09/24/17 09/24/17 09/24/17 Range/Units 10:17 10:17 10:17 WBC 8.0 (4.3-11.1) K/mcL RBC 4.03 L (4.19-5.50) M/mcL Hgb 12.1 L (12.9-16.9) g/dL Hct 35.7 L (37.5-50.1) % MCV 88.6 (83.0-100.0) fL MCH 30.0 (28.0-33.3) pg MCHC 33.9 (31.6-35.5) g/dL RDW 13.2 (11.5-14.5) % Plt Count 210 (140-400) K/mcL MPV 9.9 (9.4-12.4) fL Immature Gran % 0.5 (0-4) % Seg Neutrophils % 64.9 % Lymphocytes % 24.5 % Monocytes % 7.7 % Eosinophils % 1.9 % Basophils % 0.5 % Neutrophils # 5.2 (1.6-8.9) K/mcL Lymphocytes # 2.0 (0.6-4.6) K/mcL Monocytes # 0.6 (0.0-1.3) K/mcL Eosinophils # 0.2 (0.0-0.6) K/mcL Basophils # 0.0 (0.0-0.2) K/mcL PT 10.0 (9.4-12.1) Seconds INR 0.9 APTT 31.1 (26.0-36.0) Seconds Sodium Potassium Chloride Carbon Dioxide BUN Creatinine Est GFR ( Amer) Est GFR (Non-Af Amer) BUN/Creatinine Ratio Glucose Calculated Osmolality Calcium Phosphorus Magnesium Troponin I (< 0.04) ng/mL B-Natriuretic Peptide 109 H (Less than 100) pg/mL 18 09/24/17 Range/Units 10:17 10:17 WBC (4.3-11.1) K/mcL RBC (4.19-5.50) M/mcL Hgb (12.9-16.9) g/dL Hct (37.5-50.1) % MCV (83.0-100.0) fL MCH (28.0-33.3) pg MCHC (31.6-35.5) g/dL RDW (11.5-14.5) % Plt Count (140-400) K/mcL MPV (9.4-12.4) fL Immature Gran % (0-4) % Seg Neutrophils % % Lymphocytes % % Monocytes % % Eosinophils % % Basophils % % Neutrophils # (1.6-8.9) K/mcL Lymphocytes # (0.6-4.6) K/mcL Monocytes # (0.0-1.3) K/mcL Eosinophils # (0.0-0.6) K/mcL Basophils # (0.0-0.2) K/mcL PT (9.4-12.1) Seconds INR APTT (26.0-36.0) Seconds Sodium Cancelled 132 L Potassium Cancelled 5.1 Chloride Cancelled 104 Carbon Dioxide Cancelled 19 L BUN Cancelled 61 H Creatinine Cancelled 3.93 H Est GFR ( Amer) Cancelled 20 L Est GFR (Non-Af Amer) Cancelled 16 L BUN/Creatinine Ratio Cancelled 16 Glucose Cancelled 370 H Calculated Osmolality Cancelled 306 H Calcium Cancelled 8.0 L Phosphorus Cancelled 4.2 Magnesium Cancelled 1.4 L Troponin I < 0.03 (< 0.04) ng/mL B-Natriuretic Peptide (Less than 100) pg/mL - Radiology Data Radiology results reviewed: Yes I reviewed the patient's radiology results. Chest X-Ray 09/24/17 09:54 IMPRESSION: Low lung volumes with right basilar atelectasis. D/ / Chrissie Wolff MD / Chrissie Wolff MD Interpreting Provider: Chrissie Wolff MD - EKG Data EKG attestation: Yes I reviewed and interpreted this EKG. EKG results narrative: EKG reviewed by Dr. Worley as well. EKG shows a sinus rhythm with frequent ventricular premature complexes at a rate of 81 bpm. NH interval 123, QRS duration 90, QT/QTc interval 367/404. No ST elevation noted. No significant changes when compared to an EKG dated from 09/22/17. Attestation Statement - Attestation Attestation: I, Juvenal Jimenez DO have provided [id number] time during the care of this patient. Detailed review the presentation, symptoms, medical history were discussed and reviewed with the mid-level provider Miguel Canales PA-C/SHIRRING MACHINE OPERATOR. Medical intervention labs and imaging studies were reviewed in detail. See full documentation of physical exam and course of care in the mid-level provider's note. I agree with the determined course of care, medical intervention and disposition put forth by the mid-level provider. See below documentation for changes or alterations in documentation.
[2017-09-24] MEDS ORDERED: Aspirin 81 MG TAB.CHEW PO ONE (10:10)
[2017-09-24 10:37] LABS: Basophils % 0.5 %; Eosinophils # 0.2 K/mcL (0.0-0.6); Eosinophils % 1.9 %; Hematocrit 35.7 % (37.5-50.1); Hemoglobin 12.1 g/dL (12.9-16.9); Immature Granulocytes % 0.5 % (0-4); Lymphocytes % 24.5 %; Mean Corpuscular HGB Conc 33.9 g/dL (31.6-35.5); Mean Corpuscular Volume 88.6 fL (83.0-100.0); Mean Platelet Volume 9.9 fL (9.4-12.4); Monocytes # 0.6 K/mcL (0.0-1.3); Monocytes % 7.7 %; Neutrophils # 5.2 K/mcL (1.6-8.9); Platelet Count 210 K/mcL (140-400); Red Blood Count 4.03 M/mcL (4.19-5.50); Red Cell Distribution Width 13.2 % (11.5-14.5); Segmented Neutrophils % 64.9 %
[2017-09-24 10:42] LABS: INR 0.9
[2017-09-24 10:45] LABS: Activated Partial Thrombo Time 31.1 Seconds (26.0-36.0)
[2017-09-24] MEDS ORDERED: *HR* FentaNYL (PF) 100 MCG/2 ML VIAL IVP ONE (10:51)
[2017-09-24 11:24] LABS: Magnesium 1.4 mg/dL (1.6-2.6); Phosphorous 4.2 mg/dL (2.7-4.5); Potassium 5.1 mEq/L (3.5-5.1)
--- NOTE | 2017-09-24 11:36 | Emergency Department Note ---
Disposition Clinical Impression: ESRD (end stage renal disease) on dialysis, Atypical chest pain Hemodialysis catheter malfunction Qualifiers: Qualified Code(s): T82.41XA - Disposition: Admitted As Inpatient Condition: Fair Time of Disposition: 12:18 General Adult HPI - General Chief complaint: ED Chest Pain Stated complaint: chest pain, DEA Time Seen by Provider: 09/24/17 09:52 Source: patient Limitations: no limitations - History of Present Illness Pain Scale: 7 - Related Data Home Medications Medication Instructions Recorded Confirmed Aspirin [Lo-Dose Aspirin EC] 81 mg PO DAILY 07/30/17 09/24/17 Insulin ASPART [NovoLOG] 10 unit SQ QAM AND QHS 07/30/17 09/24/17 Insulin Glargine [Lantus] 35 unit SQ HS 07/30/17 09/24/17 Midodrine [ProAmatine] 5 mg PO MOFR 09/22/17 09/24/17 Ergocalciferol (VITAMIN D2) 50,000 unit PO WE 09/24/17 09/24/17 [Vitamin D2] Insulin ASPART [NovoLOG] 15 unit SQ 1200 09/24/17 09/24/17 Allergies Allergy/AdvReac Type Severity Reaction Status Date / Time No Known Allergies Allergy Verified 09/22/17 09:14 Constitutional: Denies: fever, chills, weakness, weight change Eyes: Denies: eye pain, eye discharge, vision change ENT ED: Denies: ear pain, throat pain, dental pain, hearing loss, epistaxis, congestion, dysphagia Cardiovascular: Reports: as per HPI, dyspnea on exertion. Denies: palpitations , edema, syncope Respiratory: Reports: as per HPI, dyspnea. Denies: cough, wheezes, hemoptysis, stridor, sputum production Gastrointestinal: Reports: as per HPI, nausea, vomiting. Denies: abdominal pain , diarrhea, constipation, hematemesis, melena, hematochezia Genitourinary: Denies: urgency, dysuria, frequency, hematuria Musculoskeletal: Denies: back pain, neck pain, arthralgia, myalgia Integumentary: Denies: rash, abrasion, lesions Neurological: Denies: headache, weakness, numbness, paresthesias, confusion, abnormal gait, vertigo Psychiatric: Denies: anxiety, depression, suicidal thoughts, homicidal thoughts , auditory hallucinations, visual hallucinations Endocrine: Denies: fatigue Hematological/Lymphatic: Denies: easy bleeding, easy bruising Allergic/Immunologic: Denies: facial swelling, urticaria Past Medical History - Past Medical History Medical history: Reports: diabetes, dialysis, hypertension, renal disease Surgical history: Reports: cholecystectomy Psychiatric history: Reports: anxiety - Social History Smoking Status: Never smoker Smokeless Tobacco Status: No Alcohol use: Reports: none Drug use: Reports: none Physical Exam - General Limitations: no limitations General appearance: alert Course Vital Signs Temperature 98.2 F 09/24/17 09:48 Pulse Rate 66 09/24/17 09:48 Respiratory Rate 16 09/24/17 09:48 Blood Pressure 205/106 09/24/17 09:48 O2 Sat by Pulse Oximetry 98 09/24/17 09:48 Temperature 98.2 F 09/24/17 09:53 Pulse Rate 69 09/24/17 12:16 Respiratory Rate 16 09/24/17 12:16 Blood Pressure 146/88 09/24/17 12:16 O2 Sat by Pulse Oximetry 98 09/24/17 12:16 Oxygen Delivery Oxygen Delivery Nasal Cannula Medical Decision Making - Lab Data Result diagrams: 09/24/17 10:17 09/24/17 10:17 Lab Results 09/24/17 09/24/17 09/24/17 Range/Units 10:17 10:17 10:17 WBC 8.0 (4.3-11.1) K/mcL RBC 4.03 L (4.19-5.50) M/mcL Hgb 12.1 L (12.9-16.9) g/dL Hct 35.7 L (37.5-50.1) % MCV 88.6 (83.0-100.0) fL MCH 30.0 (28.0-33.3) pg MCHC 33.9 (31.6-35.5) g/dL RDW 13.2 (11.5-14.5) % Plt Count 210 (140-400) K/mcL MPV 9.9 (9.4-12.4) fL Immature Gran % 0.5 (0-4) % Seg Neutrophils % 64.9 % Lymphocytes % 24.5 % Monocytes % 7.7 % Eosinophils % 1.9 % Basophils % 0.5 % Neutrophils # 5.2 (1.6-8.9) K/mcL Lymphocytes # 2.0 (0.6-4.6) K/mcL Monocytes # 0.6 (0.0-1.3) K/mcL Eosinophils # 0.2 (0.0-0.6) K/mcL Basophils # 0.0 (0.0-0.2) K/mcL PT 10.0 (9.4-12.1) Seconds INR 0.9 APTT 31.1 (26.0-36.0) Seconds Sodium Potassium Chloride Carbon Dioxide BUN Creatinine Est GFR ( Amer) Est GFR (Non-Af Amer) BUN/Creatinine Ratio Glucose Calculated Osmolality Calcium Phosphorus Magnesium Troponin I (< 0.04) ng/mL B-Natriuretic Peptide 109 H (Less than 100) pg/mL 09/24/17 09/24/17 Range/Units 10:17 10:17 WBC (4.3-11.1) K/mcL RBC (4.19-5.50) M/mcL Hgb (12.9-16.9) g/dL Hct (37.5-50.1) % MCV (83.0-100.0) fL MCH (28.0-33.3) pg MCHC (31.6-35.5) g/dL RDW (11.5-14.5) % Plt Count (140-400) K/mcL MPV (9.4-12.4) fL Immature Gran % (0-4) % Seg Neutrophils % % Lymphocytes % % Monocytes % % Eosinophils % % Basophils % % Neutrophils # (1.6-8.9) K/mcL Lymphocytes # (0.6-4.6) K/mcL Monocytes # (0.0-1.3) K/mcL Eosinophils # (0.0-0.6) K/mcL Basophils # (0.0-0.2) K/mcL PT (9.4-12.1) Seconds INR APTT (26.0-36.0) Seconds Sodium Cancelled 132 L Potassium Cancelled 5.1 Chloride Cancelled 104 Carbon Dioxide Cancelled 19 L BUN Cancelled 61 H Creatinine Cancelled 3.93 H Est GFR ( Amer) Cancelled 20 L Est GFR (Non-Af Amer) Cancelled 16 L BUN/Creatinine Ratio Cancelled 16 Glucose Cancelled 370 H Calculated Osmolality Cancelled 306 H Calcium Cancelled 8.0 L Phosphorus Cancelled 4.2 Magnesium Cancelled 1.4 L Troponin I < 0.03 (< 0.04) ng/mL B-Natriuretic Peptide (Less than 100) pg/mL Attestation Statement - Attestation Attestation: I, Juvenal Jimenez DO have provided [id number] time during the care of this patient. Detailed review the presentation, symptoms, medical history were discussed and reviewed with the mid-level provider (Miguel Canales) PATra/RETINA SUBSPECIALIST. Medical intervention labs and imaging studies were reviewed in detail. See full documentation of physical exam and course of care in the mid-level provider 's note. I agree with the determined course of care, medical intervention and disposition put forth by the mid-level provider. See below documentation for changes or alterations in documentation. 52-year-old male presents to the emergency room for evaluation of left-sided chest wall discomfort as well as was malaise. Patient had these symptoms on and off for the last several days. He is here 2 days ago and had an evaluation started with a recommended admission and the patient decided to leave the emergency room after waiting 10 hours here for a bed. Patient denies any new changes or symptoms. Denies any trauma or injury. The pain is located around where his port is inserted on the left anterior chest wall where he receives dialysis. Patient is currently following with the nephrology team and has not missed any appointments as it sits at this time. Patient denies any new trauma or injury. Currently denying fevers or chills nausea vomiting or diarrhea. Denies headache vision changes or shortness of breath. His main complaint is left-sided chest wall discomfort. Pain medication has been given nausea medication has been provided. Labs have been reviewed showing a decreased magnesium elevated potassium but within the normal limits of a dialysis patient. He does not require emergent dialysis intervention at this time. Nephrology has been contacted and they will follow up in the inpatient setting. Patient will be admitted for his chest discomfort like symptoms for further evaluation trending of his treatment. EKG was reviewed and shows stable presentation from 2 days ago with no acute changes. His troponin is negative. Disposition will be admitted at this time. Patient is otherwise clinically stable. See detailed documentation of the physical exam, medical intervention, medical decision-making and disposition in the mid-level provider's note. No current local care by the patient's treatment course at this time. [id number] Hospitalist was contacted. No other recommendations at this time. Patient will be admitted for nephrology and cardiac evaluations. Otherwise patient is currently stable with complete resolution of his chest pain here in the emergency room after pain medication was provided. Patient otherwise has no other acute pathology noted. Symptoms appear to be more consistent with pain secondary to the catheter as opposed to cardiac related illness. Patient will be trended along to make sure there is no other acute pathology. Low clinical suspicion for pericardial effusion trauma or injury otherwise causing symptoms here today. Patient is otherwise clinically stable.
[2017-09-24] MEDS ORDERED: Naloxone 0.4 MG/ML INJ IVP PRN (12:16)
--- NOTE | 2017-09-24 12:28 | Nephrology Consult Note ---
Date of Encounter: 09/24/17 Time of Encounter: 12:15 Assessment and Plan (1) Hemodialysis catheter malfunction Current Visit: Yes Status: Acute Plans being arranged by hospitalist to set patient up for a catheter exchange possible this afternoon Qualifiers: Encounter type: subsequent encounter Qualified Code(s): T82.41XD - Breakdown (mechanical) of vascular dialysis catheter, subsequent encounter (2) Acute kidney injury Current Visit: No Status: Acute Plan for HD tomorrow Will need renal diet when diet advanced Strict I/Os Avoid nephrotoxins if possible (3) Chest pain Current Visit: No Status: Acute per primary team Qualifiers: Chest pain type: other chest pain Qualified Code(s): R07.89 - Other chest pain; R07.8 - Other chest pain History of Present Illness - Reason for Consult Consult date: 09/24/17 - Chief Complaint chest pain, ESRD on dialysis - History of Present Illness Mr Hernandez is a 52 year old male well known to our practice seen in the ED awaiting admission for malfunctioning permacath. Patient is receiving HD for an ROBERT at [facility] where we just recently decreased him from three times a week to twice a week. Last dialysis was on Friday 09/22 and he states the catheter did not run well that day. He is c/o chest pain around the cath site and radiating down left arm. Hospitalist is also in room at time of exam and plans are to make patient NPO and to see if IR can exchange catheter out this afternoon. 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 prostate surgery. CORNELIUS HD permacath - Social History Smoking Status: Never smoker Smokeless Tobacco Status: No Alcohol use: none Drug use: none - Family History Mother Living Status: Hx Family Cardiac Disorders: Yes (stroke) Hx Family Respiratory Disorders: Yes Hx Family Endocrine Disorder: Yes (DM) Father Living Status: Hx Family Cardiac Disorders: Yes (stent) Hx Family Cancer: Yes Hx Family Endocrine Disorder: Yes (DM) Medications and Allergies Aspirin [Lo-Dose Aspirin EC] 81 mg PO DAILY 07/30/17 [History] Insulin ASPART [NovoLOG] 10 unit SQ QAM AND QHS 07/30/17 [History] Insulin Glargine [Lantus] 35 unit SQ HS 07/30/17 [History] Midodrine [ProAmatine] 5 mg PO MOFR 09/22/17 [History] Ergocalciferol (VITAMIN D2) [Vitamin D2] 50,000 unit PO WE 09/24/17 [History] Insulin ASPART [NovoLOG] 15 unit SQ 1200 09/24/17 [History] 3 Allergy/AdvReac Type Severity Reaction Status Date / Time No Known Allergies Allergy Verified 09/22/17 09:14 Review of Systems All Systems: reviewed and no additional remarkable complaints except as stated Constitutional: no chills, no fever(s), no malaise Cardiovascular: chest pain, chest pain at rest, no dyspnea, no leg edema Respiratory: no cough, no dyspnea Gastrointestinal: no nausea, no vomiting Neurological: no behavioral changes Exam - Vital Signs Vital signs: Initial Vital Signs Temp Pulse Resp BP Pulse Ox 98.2 F 66 16 205/106 98 09/24/17 09:48 09/24/17 09:48 09/24/17 09:48 09/24/17 09:48 09/24/17 09:48 Vital Signs - Last 8 Hours Temp Pulse Resp BP Pulse Ox 09/24/17 11:24 81 16 163/92 97 09/24/17 10:58 77 16 178/96 99 09/24/17 09:58 76 16 182/93 98 09/24/17 09:53 98.2 F 66 16 205/106 98 09/24/17 09:48 98.2 F 66 16 205/106 98 Intake and Output 09/23/17 09/24/17 09/24/17 23:59 07:59 15:59 Other: Weight 105.233 kg Patient Weight 09/24/17 23:59 Weight 105.233 kg - General Appearance General appearance: well-developed, well-nourished EENT: ATNC, mucous membranes moist, hearing intact, vision intact Neck: supple Respiratory: clear Cardiology: no edema, normal S1, normal S2 - Dialysis Access Dialysis Vascular Access: Venous Catheter Gastrointestinal: no tenderness, no guarding Integumentary: warm and dry Neurologic: alert and oriented x3 Psychiatric: mood/affect appropriate, cooperative Results - Lab Results 09/24/17 10:17 09/24/17 10:17 Most recent lab results Calcium 8.0 mg/dL (8.6-10.3) L 09/24/17 10:17 Phosphorus 4.2 mg/dL (2.7-4.5) 09/24/17 10:17 Magnesium 1.4 mg/dL (1.6-2.6) L 09/24/17 10:17 Consult Discharge Plan - Plan Referrals: Miya Aden DO [Primary Care Provider] -
--- NOTE | 2017-09-24 12:28 | Internal Med History&Physical ---
<Rosemary Rios - Last Filed: 09/24/17 15:08> Date of Encounter: 09/24/17 Time of Encounter: 12:26 Internal Medicine - H&P: HPI Chief complaint: Chest pain Admitted From: Home Plans for Post Hospital Care: Home History of present illness: Mr. Hernandez is a 52 year old male with history of hypertension, pancreatic, end- stage renal disease, neurogenic bladder, DM, anemia and kidney disease. Patient was here on September 22 with similar symptoms, throbbing chest pain near his hd port. The patient was admitted on 09/22/2017, then decided to go home. The patient apparently had some chest pain and throbbing 20 minutes prior to ending his HD session, on Thursday. He indicated that he has had this pain since then. The patient trop is negative again today, but will r/o ACS. Apparently patient also complained of dizziness while in the ED. Will get ortho's and an echo in the am. ED spoke with Dr. Adan and he agreed to see the patient and have IR replace the HD cath today, if possible. Nephrology PARKING LOT SUPERVISOR Tila, saw the patient in the ED. The patient is due for his next scheduled HD treatment on Thursday. WBC is 8.0, hemoglobin 12.1 sodium 132, potassium 5.1, creat 3.93, and bun is 61. Patient was given fentanyl in the ED with relief. He states he currently has a dull pain near the cath site, but it is not uncontrolled. The patient has neurogenic bladder and self caths q5-6 hours. Today he reports a penile discharge, he indicated that he noticed the drainage a few days ago after straight cathing himself. Will get UA. Patient is npo at this time for possible HD cath placement today. BP is 182/89, will give hydralazine 10 mg ivp x 1. 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 prostate surgery. CORNELIUS HD permacath - Social History Smoking Status: Never smoker Smokeless Tobacco Status: No Alcohol use: none Drug use: none - Family History Mother Living Status: Hx Family Cardiac Disorders: Yes (stroke) Hx Family Respiratory Disorders: Yes Hx Family Endocrine Disorder: Yes (DM) Father Living Status: Hx Family Cardiac Disorders: Yes (stent) Hx Family Cancer: Yes Hx Family Endocrine Disorder: Yes (DM) Internal Medicine - H&P: Meds Aspirin [Lo-Dose Aspirin EC] 81 mg PO DAILY 07/30/17 [History] Insulin ASPART [NovoLOG] 10 unit SQ QAM AND QHS 07/30/17 [History] Insulin Glargine [Lantus] 35 unit SQ HS 07/30/17 [History] Midodrine [ProAmatine] 5 mg PO MOFR 09/22/17 [History] Ergocalciferol (VITAMIN D2) [Vitamin D2] 50,000 unit PO WE 09/24/17 [History] Insulin ASPART [NovoLOG] 15 unit SQ 1200 09/24/17 [History] 3 Allergy/AdvReac Type Severity Reaction Status Date / Time No Known Allergies Allergy Verified 09/22/17 09:14 All Systems PM: A 10-system review of systems was performed and is negative for pertinent findings except as documented above in the HPI. - Constitutional Constitutional: no chills, no fever(s), no night sweats - EENT Eyes: no change in vision, no discharge, no pain, no photophobia Ears: no ear discharge, no ear pain, no tinnitus Nose, mouth and throat: no dysphagia, no nasal discharge, no neck pain, no sore throat - Cardiovascular Cardiovascular ROS IM: chest pain, no diaphoresis, no dyspnea, no lightheadedness, no palpitations, no syncope - Respiratory Respiratory: no cough, no dyspnea, no wheezing, no excessive phlegm production - Gastrointestinal Gastrointestinal: no abdominal pain, no diarrhea, no hematemesis, no hematochezia, no melena, no nausea, no vomiting - Genitourinary Genitourinary ROS male: penile discharge (Will collect UA/C&S) - Musculoskeletal Musculoskeletal ROS IM: no numbness, no tingling - Integumentary Integumentary IM: no rash, no unusual bruising - Neurological Neurological ROS: no confusion, no convulsions, no focal weakness, no numbness, no tingling, no tremor(s) - Hematologic/Lymphatic Hematologic/Lymphatic: no easy bruising - Constitutional Vitals: Temp Pulse Resp BP Pulse Ox 98.2 F 69 16 146/88 98 09/24/17 09:53 06/14/18 12:16 09/24/17 12:16 09/24/17 12:16 09/24/17 12:16 General appearance: Present: A&O X 3, answers questions appropriately - Head Head exam: Present: atraumatic, normocephalic - Eye Eye exam: Present: PERRL, conjuntiva pink, sclera anicteric Pupils: Present: PERRL - Neck Neck exam general surgery: Present: supple, trachea midline. Absent: lymphadenopathy - Respiratory Respiratory exam: Present: CTAB. Absent: accessory muscle use, rales, rhonchi, wheezes - Cardiovascular Cardiovascular exam: Present: RRR, +S1, +S2. Absent: diastolic murmur, gallop, rubs, systolic murmur - GI/Abdominal GI/Abdominal exam: Present: normal bowel sounds, soft, no peritoneal signs. Absent: distended, tenderness - Extremities Exam Extremities exam: Present: warm, radial pulses palpable and symmetrical. Absent : calf tenderness, cyanotic, pedal edema - Neurological Exam Neurological exam: Present: CN II-XII intact, oriented X3, no focal deficits. Absent: pronater drift, facial droop, speech deficit - Skin Skin exam: Present: dry, intact Internal Med - H&P Results - Labs CBC & Chem 7: 09/24/17 10:17 09/24/17 10:17 - Assessment and plan (1) Atypical chest pain Current Visit: Yes Status: Acute Assessment and plan: Serial cardiac troponins every 6 hours 3 Cardiac monitoring Echocardiogram in a.m. Morphine IV when necessary for pain Monitor daily labs (2) ESRD (end stage renal disease) on dialysis Current Visit: Yes Status: Chronic Assessment and plan: Patient reports he is scheduled for Thursday and Thursday HD outpatient Nephrology consulted for HD catheter (3) Acute kidney injury superimposed on chronic kidney disease Current Visit: No Status: Acute Assessment and plan: Nephrology consulted Monitor CMP and CBC daily HD schedule is Thursday and Thursday-outpatient (4) Diabetes mellitus Current Visit: No Status: Acute Assessment and plan: Accu-Cheks every 6 hours while nothing by mouth, low Humalog insulin scale coverage Goal while inpatient is under 200 Patient is currently uncontrolled Monitor daily labs Qualifiers: Diabetes mellitus type: type 2 Diabetes mellitus skilled nursing insulin use: with buttermaker use Diabetes mellitus complication status: with hyperglycemia Qualified Code(s): E11.65 - Type 2 diabetes mellitus with hyperglycemia; 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 We will treat hypertension conservatively No home cardiac meds Hydralazine 10 mg IV push 1 for BP of 182/89 Qualifiers: Hypertension type: essential hypertension Qualified Code(s): I10 - Essential (primary) hypertension - Time Spent With Patient Total time spent is greater than 50% in coordination of care (as documented) at patient's floor/unit and/or counseling patient: less than 15 minutes <Ankit Sebastian - Last Filed: 09/24/17 16:11> Date of Encounter: 09/24/17 Internal Medicine - H&P: HPI History of present illness: Mr. Hernandez is a 52 year old male All Systems PM: A 10-system review of systems was performed and is negative for pertinent findings except as documented above in the HPI. - Constitutional Vitals: Temp Pulse Resp BP Pulse Ox 97.8 F 63 20 182/98 98 09/24/17 12:54 09/24/17 12:54 09/24/17 12:54 09/24/17 12:54 09/24/17 13:15 Internal Med - H&P Results - Labs CBC & Chem 7: 09/24/17 10:17 09/24/17 10:17 - Attending Attestation I have seen and evaluated the patient. I have performed my own physical examination. I have discussed case with admitting PARKING LOT SUPERVISOR. I agree with PARKING LOT SUPERVISOR's assessment and plan as documented in her H&P. Briefly, I admitted patient for same issue 2 days ago, but he left AMA. He presents with "throbbing" chest pain at dialysis permacath site. He states pain started after last dialysis on Thursday. He was scheduled to have outpatient permacath replacement tomorrow, but pain was "unbearable." It Support Specialist Dr. Maldonado has been consulted by ED. IR has been consulted to switch out permacath today. We will trend cardiac enzymes. Pain control. Dialysis tomorrow. ECHO in AM. Ankti Sebastian MD - Time Spent With Patient Total time spent is greater than 50% in coordination of care (as documented) at patient's floor/unit and/or counseling patient:
[2017-09-24] MEDS ORDERED: Heparin 1,000 UNITS/500 mL 500 ML ONE (13:19)
[2017-09-24] MEDS ORDERED: D5% in Water 1,000 ML IVC PRN (13:30)
[2017-09-24] MEDS ORDERED: *HR* Dextrose 50 % in Water (Syg) 50 ML SYRINGE IVP PRN (13:30)
[2017-09-24] MEDS ORDERED: Dextrose Gel 15 GM/37.5 ML TUBE PO PRN ×2 (13:30)
[2017-09-24] MEDS ORDERED: *HR* Heparin 5,000 UNIT/ML VIAL ONE (14:45)
--- NOTE | 2017-09-24 14:57 | IR Procedure Note ---
Date of procedure: 09/24/17 Consent Obtained: Written consent Timeout: Correct patient and procedure verified, Correct site verified, Time out performed, Skin prep completed Local anesthetic: Lidocaine 1% Indications: malfunctioning permacath Procedure Performed: permacath exchange Was there an bankruptcy assistant present: No Site/Technique: left side Results/Findings: adequate exchange Estimated blood loss (cc): 2 Complications: None; Tolerated procedure well Post Procedure Treatment Plan: OK to dialyze Specimen: none
[2017-09-24] MEDS ORDERED: Nitroglycerin 0.4 MG TAB.SUBL SL PRN (15:24)
[2017-09-24] MEDS ORDERED: *HR* Morphine 2 MG/ML SYRINGE IVP ONE (16:00)
[2017-09-24] MEDS ORDERED: *HR* Heparin 10,000 UNIT/10 ML VIAL IV PRN (17:13)
[2017-09-24 17:44] LABS: Bilirubin,Urine Negative (Negative); Blood,Urine Trace (Negative); Clarity,Urine Cloudy (Clear); Color,Urine Yellow (Yellow); Glucose,Urine (UA) 500 mg/dL (Normal); Ketones,Urine Negative (Negative); Leukocyte Esterase,Urine Small (Negative); Nitrite,Urine Negative (Negative); PH,Urine 6.5 pH Units (5.0-8.0); Protein,Urine >=1000 mg/dL (Neg-Trace); Specific Gravity,Urine 1.021 (1.010-1.025); Urobilinogen,Urine Normal (Normal)
[2017-09-24 17:48] LABS: Bacteria,Urine None Seen per hpf (None-Few); Hyaline Casts,Urine None Seen per lpf (None-Few); Squamous Epithelial Cell,Urine None Seen per lpf (None-Few); WBC,Urine TNTC per hpf (0-3)
[2017-09-24 17:59] LABS: Yeast,Urine Many per hpf (None Seen)
[2017-09-24] MEDS: Insulin LISPRO 300 UNITS/3 ML VIAL SQ SCH (18:22)
[2017-09-24] MEDS: Ondansetron 4 MG/2 ML VIAL IVP PRN (21:19)
[2017-09-24] MEDS: *HR* OxyCODONE/APAP 7.5/325 TABLET PO PRN (21:20)
[2017-09-25] MEDS: Insulin LISPRO 300 UNITS/3 ML VIAL SQ SCH ×5 (01:15→22:19)
[2017-09-25] MEDS: Ondansetron 4 MG/2 ML VIAL IVP PRN ×2 (05:18→23:52)
[2017-09-25 05:26] LABS: Basophils % 0.4 %; Eosinophils # 0.2 K/mcL (0.0-0.6); Eosinophils % 2.3 %; Hematocrit 36.3 % (37.5-50.1); Hemoglobin 12.3 g/dL (12.9-16.9); Immature Granulocytes % 0.4 % (0-4); Lymphocytes # 1.9 K/mcL (0.6-4.6); Lymphocytes % 27.1 %; Mean Corpuscular HGB Conc 33.9 g/dL (31.6-35.5); Mean Corpuscular Hemoglobin 30.1 pg (28.0-33.3); Mean Platelet Volume 9.7 fL (9.4-12.4); Monocytes # 0.5 K/mcL (0.0-1.3); Monocytes % 7.6 %; Neutrophils # 4.3 K/mcL (1.6-8.9); Platelet Count 222 K/mcL (140-400); Red Blood Count 4.08 M/mcL (4.19-5.50); Red Cell Distribution Width 13.4 % (11.5-14.5); Segmented Neutrophils % 62.2 %
[2017-09-25 05:43] LABS: Albumin 2.8 g/dL (3.5-5.7); Bilirubin,Total 0.2 mg/dL (0.3-1.0); Calcium 8.2 mg/dL (8.6-10.3); Globulin 2.9 g/dL (2.4-3.5); Magnesium 1.8 mg/dL (1.6-2.6); Potassium 4.4 mEq/L (3.5-5.1); Total Protein 5.7 g/dL (6.4-8.9); Troponin I 0.03 ng/mL (< 0.04)
[2017-09-25] MEDS ORDERED: 0.9 % Sodium Chloride 250 ML IVC PRN (06:34)
[2017-09-25] MEDS ORDERED: *HR* Heparin 10,000 UNIT/10 ML VIAL IV PRN ×2 (06:42→09:24)
[2017-09-25 12:20] LABS: Hepatitis B Surface Antigen Nonreactive (Nonreactive)
--- NOTE | 2017-09-25 14:10 | Nephrology Progress Note ---
Date of Encounter: 09/25/17 Time of Encounter: 12:00 - Assessment and Plan (1) Hemodialysis catheter malfunction Current Visit: Yes Status: Acute s/p permcath excahnge with still discomfort in chest, does not appear to be catheter related. Permcath being used successfully without problems Qualifiers: Encounter type: subsequent encounter Qualified Code(s): T82.41XD - Breakdown (mechanical) of vascular dialysis catheter, subsequent encounter (2) Acute kidney injury Current Visit: No Status: Acute HD dependent twice weekly, will continue HD today with UF as tolerated (3) Neurogenic bladder Current Visit: No Status: Chronic UA result noted. Pt requires self catherizations intermittently Subjective Interval history: Interim events noted, pts een and examined on HD today s/p change of permcath over guidewire wiht pt still reporting " a throbbing" above permcath site especially while on HD. He also had a host of other complaints such as pelvic pressure which he believes might be his prostate and hypotension bouts after HD with resultant "passing out". Objective - Vital Signs Vital signs: Vital Signs Temp Pulse Resp BP Pulse Ox 09/25/17 09:15 97 09/25/17 07:33 98.5 F 69 18 102/60 97 09/25/17 05:11 98.1 F 73 18 157/81 95 09/25/17 01:21 98.3 F 81 16 166/81 91 09/24/17 20:51 99.1 F 66 16 132/77 96 09/24/17 16:12 97.8 F 95 18 169/86 98 Intake and Output 09/24/17 09/25/17 09/25/17 23:59 07:59 15:59 Intake Total 340 / 340 Output Total 850 / 850 500 / 500 375 / 375 Balance -850 / -850 -500 / -500 -35 / -35 Intake: Oral 340 / 340 Output: Straight Cath 850 / 850 500 / 500 375 / 375 Other: Meal Breakfast Percent of Meal Consumed 100% Weight 105.8 kg 105.8 kg Blood Glucose* 244 191 148 Patient Weight 09/25/17 23:59 Weight 105.8 kg - General Appearance General appearance: Present: chronically ill (NAD) EENT: Present: ATNC, mucous membranes moist Neck: Present: no JVD, supple Respiratory: Present: clear Cardiology: Present: no edema, normal S1, normal S2 Dialysis Vascular Access: Venous Catheter (with clean dressing, no drainage) Gastrointestinal: Present: no tenderness, no guarding Integumentary: Present: warm and dry Neurologic: Present: no focal deficit Musculoskeletal: Present: no deformities Psychiatric: Present: mood/affect appropriate - Lab 09/25/17 04:47 09/25/17 04:47 Most recent lab results Calcium 8.2 mg/dL (8.6-10.3) L 09/25/17 04:47 Phosphorus 4.2 mg/dL (2.7-4.5) 09/24/17 10:17 Magnesium 1.8 mg/dL (1.6-2.6) 09/25/17 04:47 Consult Discharge Plan - Plan Referrals: Miya Aden DO [Primary Care Provider] -
[2017-09-25] MEDS: *HR* OxyCODONE/APAP 7.5/325 TABLET PO PRN (16:23)
--- NOTE | 2017-09-25 16:30 | Internal Med Progress Note ---
Date of Encounter: 09/25/17 Time of Encounter: 14:00 - Assessment and plan (1) Chest pain Current Visit: Yes Status: Acute Assessment and plan: Probably noncardiac. Chest pain is reproducible, present in left upper chest around underwent hemodialysis catheter. Continue telemetry monitoring. Serial troponins negative for ACS. Follow-up echocardiogram. Dialysis catheter has been exchanged yesterday, currently functioning well. Qualifiers: Chest pain type: other chest pain Qualified Code(s): R07.89 - Other chest pain; R07.8 - Other chest pain (2) ESRD (end stage renal disease) on dialysis Current Visit: Yes Status: Chronic Assessment and plan: Nephrology is on board, patient underwent hemodialysis today with new HD catheter. Stable for discharge from nephrology standpoint. (3) Diabetes mellitus Current Visit: Yes Status: Chronic Assessment and plan: Blood sugars fairly controlled, higher than target. Add low-dose basal insulin. Continue Accu-Chek blood glucose monitoring with sliding scale insulin. Diabetic diet. 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 Restarted home dose of midodrine. Qualifiers: Hypertension type: essential hypertension Qualified Code(s): I10 - Essential (primary) hypertension (6) Neurogenic bladder Current Visit: Yes Status: Chronic Assessment and plan: Continue intermittent self-catheterization. Urinalysis suggestive of infection , however this is to be expected in a patient who continuously self catheterizes at home. - Time Spent With Patient Total time spent is greater than 50% in coordination of care (as documented) at patient's floor/unit and/or counseling patient: - Subjective Interval history: Continues to report left upper chest pain, around the site of tunneled hemodialysis catheter. No bleeding noted. Underwent dialysis today. Reports generalized weakness after dialysis. No shortness of breath, palpitations, dizziness. - Constitutional Vitals: Temp Pulse Resp BP Pulse Ox 98.2 F 75 18 126/63 95 09/25/17 15:50 09/25/17 15:50 09/25/17 15:50 09/25/17 15:50 09/25/17 15:50 General appearance: Present: A&O X 3, answers questions appropriately - Respiratory Respiratory exam: Present: CTAB. Absent: accessory muscle use, rales, rhonchi, wheezes - Cardiovascular Cardiovascular exam: Present: RRR, +S1, +S2. Absent: diastolic murmur, gallop, rubs, systolic murmur - GI/Abdominal GI/Abdominal exam: Present: normal bowel sounds, soft, no peritoneal signs. Absent: distended, tenderness - Extremities Exam Extremities exam: Present: full ROM, warm, radial pulses palpable and symmetrical. Absent: calf tenderness, cyanotic, pedal edema Internal Medicine: Result - Labs CBC & Chem 7: 09/25/17 04:47 09/25/17 04:47 Labs: Short CBC 09/25/17 Range/Units 04:47 WBC 7.0 (4.3-11.1) K/mcL Hgb 12.3 L (12.9-16.9) g/dL Hct 36.3 L (37.5-50.1) % Plt Count 222 (140-400) K/mcL Neutrophils # 4.3 (1.6-8.9) K/mcL BMP 09/25/17 04:47 Sodium 136 Potassium 4.4 Chloride 107 Carbon Dioxide 21 L BUN 59 H Creatinine 3.80 H Glucose 195 H Calcium 8.2 L Cardiac Enzymes 09/24/17 09/25/17 Range/Units 22:08 04:47 Troponin I 0.03 0.03 (< 0.04) ng/mL Liver Function 09/25/17 Range/Units 04:47 Total Bilirubin 0.2 L (0.3-1.0) mg/dL AST 10 L (13-39) Units/L ALT 8 (7-52) Units/L Alkaline Phosphatase 85 (34-104) Units/L Albumin 2.8 L (3.5-5.7) g/dL Urine 09/24/17 Range/Units 17:25 Urine Color Yellow (Yellow) Urine Clarity Cloudy A (Clear) Urine pH 6.5 (5.0-8.0) pH Units Ur Specific [place] 1.021 (1.010-1.025) Urine Protein >=1000 H (Neg-Trace) mg/dL Urine Glucose (UA) 500 H (Normal) mg/dL - ABG Interpretation ABG results: PT/INR, D-dimer PT 10.0 Seconds (9.4-12.1) 09/24/17 10:17 D-Dimer 749 ng/mLFEU (0-500) H 09/24/17 16:27 - Impressions Impressions Pulmonary Perfusion Imaging 09/24/17 18:12 IMPRESSION: Very low probability for pulmonary embolism. D/ / Jae Dutton MD / Jae Dutton MD Interpreting Provider: Jae Dutton MD Consult Discharge Plan - Plan Referrals: Miya Aden DO [Primary Care Provider] -
[2017-09-25] MEDS ORDERED: Insulin DETEMIR 100 UNIT/ML X5UNITS SQ SCH (21:00)
[2017-09-26] MEDS: Ondansetron 4 MG/2 ML VIAL IVP PRN (06:54)
[2017-09-26] MEDS: Insulin LISPRO 300 UNITS/3 ML VIAL SQ SCH ×4 (08:38→20:05)
--- NOTE | 2017-09-26 11:28 | Nephrology Progress Note ---
Date of Encounter: 09/26/17 Time of Encounter: 12:00 - Assessment and Plan (1) Hemodialysis catheter malfunction Current Visit: Yes Status: Acute s/p permcath exchange, chest discomfot better today. Permcath used yesterday with no issues for HD Qualifiers: Encounter type: subsequent encounter Qualified Code(s): T82.41XD - Breakdown (mechanical) of vascular dialysis catheter, subsequent encounter (2) Acute kidney injury Current Visit: No Status: Acute HD dependent twice weekly, next HD for thursday No new labs today (3) Neurogenic bladder Current Visit: Yes Status: Chronic UA result noted with culture showing VRE. Pt requires self catherizations intermittently (4) Urinary tract infection Current Visit: Yes Status: Acute Continue abx per primary team for VRE Qualifiers: Urinary tract infection type: acute cystitis Hematuria presence: without hematuria Qualified Code(s): N30.00 - Acute cystitis without hematuria Subjective Interval history: Pt seen and examined feeling better with linezolid started by primary team for VRE. Objective - Vital Signs Vital signs: Vital Signs Temp Pulse Resp BP Pulse Ox 09/26/17 11:20 98.4 F 74 16 156/94 96 09/26/17 08:38 124/79 09/26/17 07:37 98.2 F 73 15 93/57 95 09/26/17 03:24 98.0 F 73 18 93/57 95 09/26/17 00:12 99.3 F 63 17 138/85 95 09/25/17 20:44 98.7 F 77 17 109/68 97 09/25/17 15:50 98.2 F 75 18 126/63 95 09/25/17 14:00 97.7 F 18 174/91 09/25/17 13:30 97.9 F 79 18 125/79 99 09/25/17 13:10 157/89 09/25/17 12:55 162/89 09/25/17 12:40 164/99 09/25/17 12:25 165/98 09/25/17 12:10 172/96 09/25/17 11:55 176/94 09/25/17 11:40 185/99 Intake and Output 09/25/17 09/26/17 09/26/17 23:59 07:59 15:59 Intake Total 240 / 240 240 / 240 Output Total 325 / 325 Balance 240 / 240 -85 / -85 Intake: Oral 240 / 240 240 / 240 Output: Straight Cath 325 / 325 Other: Meal Dinner Breakfast Percent of Meal Consumed 90% 100% # Voids 1 Weight 106.2 kg Blood Glucose* 242 212 Patient Weight 09/26/17 23:59 Weight 106.2 kg - General Appearance General appearance: Present: well-developed, well-nourished EENT: Present: ATNC, mucous membranes moist Neck: Present: no JVD, supple Respiratory: Present: clear Cardiology: Present: no edema, normal S1, normal S2 Dialysis Vascular Access: Venous Catheter (permcath with no drainage) Gastrointestinal: Present: no tenderness, no guarding Integumentary: Present: warm and dry Neurologic: Present: no focal deficit Musculoskeletal: Present: no deformities Psychiatric: Present: mood/affect appropriate, cooperative - Lab 09/25/17 04:47 09/25/17 04:47 Most recent lab results Calcium 8.2 mg/dL (8.6-10.3) L 09/25/17 04:47 Phosphorus 4.2 mg/dL (2.7-4.5) 09/24/17 10:17 Magnesium 1.8 mg/dL (1.6-2.6) 09/25/17 04:47 Consult Discharge Plan - Plan Referrals: Miya Aden DO [Primary Care Provider] -
--- NOTE | 2017-09-26 16:41 | Internal Med Progress Note ---
Date of Encounter: 09/26/17 Time of Encounter: 10:45 - Assessment and plan (1) Urinary tract infection Current Visit: Yes Status: Acute Assessment and plan: Patient has history of neurogenic bladder with chronic intermittent self- catheterization. Urine culture grows enterococcus. Review of previous records show to other enterococcus infections and patient had to be treated with Zyvox and ampicillin in the past. Will start IV Zyvox at this time, follow up final sensitivities. Qualifiers: Urinary tract infection type: acute cystitis Hematuria presence: without hematuria Qualified Code(s): N30.00 - Acute cystitis without hematuria (2) Chest pain Current Visit: Yes Status: Acute Assessment and plan: Probably noncardiac. Chest pain is reproducible, present in left upper chest around underwent hemodialysis catheter. Continue telemetry monitoring. Serial troponins negative for ACS. Dialysis catheter has been exchanged, currently functioning well. Limited echocardiogram shows preserved ejection fraction. Qualifiers: Chest pain type: other chest pain Qualified Code(s): R07.89 - Other chest pain; R07.8 - Other chest pain (3) ESRD (end stage renal disease) on dialysis Current Visit: Yes Status: Chronic Assessment and plan: Nephrology is on board, patient underwent hemodialysis yesterday with new HD catheter. (4) Diabetes mellitus Current Visit: Yes Status: Chronic Assessment and plan: Blood sugars continue to be elevated. Will increase basal insulin. Continue Accu-Chek blood glucose monitoring with sliding scale insulin. Diabetic diet. Qualifiers: Diabetes mellitus type: type 2 Diabetes mellitus long-term insulin use: with long-term use Diabetes mellitus complication status: with hyperglycemia Qualified Code(s): E11.65 - Type 2 diabetes mellitus with hyperglycemia; Z79.4 - alf (current) use of insulin (5) Anemia in chronic kidney disease Current Visit: Yes Status: Chronic Qualifiers: Chronic kidney disease stage: on chronic dialysis Qualified Code(s): N18.6 - End stage renal disease; D63.1 - Anemia in chronic kidney disease; Z99.2 - Dependence on renal dialysis (6) Hypertension Current Visit: Yes Status: Chronic Qualifiers: Hypertension type: essential hypertension Qualified Code(s): I10 - Essential (primary) hypertension (7) Neurogenic bladder Current Visit: Yes Status: Chronic - Time Spent With Patient Total time spent is greater than 50% in coordination of care (as documented) at patient's floor/unit and/or counseling patient: - Subjective Interval history: Reports nausea and mild lower abdominal pain. No vomiting, diarrhea, chest pain or shortness of breath. Lying in bed comfortably. - Constitutional Vitals: Temp Pulse Resp BP Pulse Ox 98.3 F 73 16 110/69 97 09/26/17 15:07 09/26/17 15:07 09/26/17 15:07 09/26/17 15:07 09/26/17 15:07 General appearance: Present: A&O X 3, answers questions appropriately - Respiratory Respiratory exam: Present: CTAB. Absent: accessory muscle use, rales, rhonchi, wheezes - Cardiovascular Cardiovascular exam: Present: RRR, +S1, +S2. Absent: diastolic murmur, gallop, rubs, systolic murmur - GI/Abdominal GI/Abdominal exam: Present: normal bowel sounds, soft (mild suprapubic tenderness), no peritoneal signs. Absent: distended, tenderness - Extremities Exam Extremities exam: Present: full ROM, warm, radial pulses palpable and symmetrical. Absent: calf tenderness, cyanotic, pedal edema Internal Medicine: Result - Labs CBC & Chem 7: 09/25/17 04:47 09/25/17 04:47 - ABG Interpretation ABG results: PT/INR, D-dimer PT 10.0 Seconds (9.4-12.1) 09/24/17 10:17 D-Dimer 749 ng/mLFEU (0-500) H 09/24/17 16:27 - Impressions Impressions Echocardiogram Limited Views 09/25/17 08:00 Impressions: LVEF 55%. Normal LV chamber size, wall thickness and function. RV not optimally evaluated on this limited study. Left Ventricular Wall Motion: Rest Echo Findings All wall segments showed normal motion. Findings: Study Quality * Technically adequate exam. ECG Findings * Normal sinus rhythm. Left Ventricle * LVEF 55%. * Normal LV chamber size, wall thickness and function. Right Ventricle * RV not optimally evaluated on this limited study. Aorta * Normally sized aortic root. Pericardium * There is no pericardial effusion present. Consult Discharge Plan - Plan Referrals: Miya Aden DO [Primary Care Provider] -
[2017-09-26] MEDS: Insulin DETEMIR 100 UNIT/ML X5UNITS SQ SCH (20:04)
[2017-09-27] MEDS ORDERED: *HR* Labetalol 20 MG/4 ML SYRINGE IVP ONE (04:05)
[2017-09-27] MEDS: *HR* OxyCODONE/APAP 7.5/325 TABLET PO PRN ×2 (04:26→18:44)
[2017-09-27] MEDS: *HR* HYDROcodone/Acet 7.5/325 mg TABLET PO PRN ×2 (05:27→14:12)
[2017-09-27] MEDS: Insulin LISPRO 300 UNITS/3 ML VIAL SQ SCH ×3 (08:07→16:37)
[2017-09-27] MEDS: Insulin DETEMIR 100 UNIT/ML X5UNITS SQ SCH ×2 (08:08→21:30)
--- NOTE | 2017-09-27 12:18 | Nephrology Progress Note ---
Date of Encounter: 09/27/17 Time of Encounter: 12:00 - Assessment and Plan (1) Hemodialysis catheter malfunction Current Visit: Yes Status: Acute s/p permcath exchange, denies any further issues at present Qualifiers: Encounter type: subsequent encounter Qualified Code(s): T82.41XD - Breakdown (mechanical) of vascular dialysis catheter, subsequent encounter (2) Acute kidney injury Current Visit: No Status: Acute HD dependent twice weekly, next HD planned tomorrow, pt wants to be discharged first and then go to outpatient HD facility for his routine session. Will arrange. No new labs today (3) Neurogenic bladder Current Visit: Yes Status: Chronic UA result noted with culture positive for VRE. Pt requires self catherizations intermittently (4) Urinary tract infection Current Visit: Yes Status: Acute Continue abx per primary team for VRE Qualifiers: Urinary tract infection type: acute cystitis Hematuria presence: without hematuria Qualified Code(s): N30.00 - Acute cystitis without hematuria Subjective Interval history: Pt seen and examined feeling better though tired from lack of sleep due to noise. Objective - Vital Signs Vital signs: Vital Signs Temp Pulse Resp BP Pulse Ox 09/27/17 11:32 98.4 F 70 17 159/84 97 09/27/17 07:20 98.1 F 85 17 130/74 96 09/27/17 03:28 98.1 F 63 16 167/98 96 09/27/17 00:03 98.2 F 68 16 138/80 97 09/26/17 19:30 98.9 F 65 16 120/71 95 09/26/17 15:07 98.3 F 73 16 110/69 97 Intake and Output 09/26/17 09/27/17 09/27/17 23:59 07:59 15:59 Intake Total 300 / 300 0 / 0 Output Total 700 / 700 Balance 300 / 300 -700 / -700 Intake: IV Fluids 300 / 300 Zyvox Premix 600mg/300mL 600 mg 300 / 300 In 300 ml @ 150 mls/hr IVPB Q12HR [facility] Rx#:[id number] Oral 0 / 0 0 / 0 Output: Straight Cath 700 / 700 Other: Meal Dinner Percent of Meal Consumed 100% Weight 105.8 kg Blood Glucose* 302 288 211 Patient Weight 09/27/17 23:59 Weight 105.8 kg - General Appearance General appearance: Present: well-developed, well-nourished EENT: Present: ATNC, mucous membranes moist Neck: Present: no JVD, supple Cardiology: Present: no edema, normal S1, normal S2 Dialysis Vascular Access: Venous Catheter (permcath with clean dressing) Gastrointestinal: Present: no tenderness, no guarding Integumentary: Present: warm and dry Neurologic: Present: no focal deficit Musculoskeletal: Present: no deformities Psychiatric: Present: mood/affect appropriate, cooperative - Lab 09/25/17 04:47 09/25/17 04:47 Most recent lab results Calcium 8.2 mg/dL (8.6-10.3) L 09/25/17 04:47 Phosphorus 4.2 mg/dL (2.7-4.5) 09/24/17 10:17 Magnesium 1.8 mg/dL (1.6-2.6) 09/25/17 04:47 Consult Discharge Plan - Plan Referrals: Miya Aden DO [Primary Care Provider] -
--- NOTE | 2017-09-27 16:14 | Internal Med Progress Note ---
Date of Encounter: 09/27/17 Time of Encounter: 11:20 - Assessment and plan (1) Urinary tract infection Current Visit: Yes Status: Acute Assessment and plan: Catheter-related UTI. Patient has history of neurogenic bladder with chronic intermittent self-catheterization. Urine culture grows ampicillin-sensitive enterococcus. Review of previous records show to other enterococcus infections and patient had to be treated with Zyvox and ampicillin in the past. Change to IV Ampicillin, will d/w ID in am; Anticipate discharge in am; Qualifiers: Urinary tract infection type: acute cystitis Hematuria presence: without hematuria Qualified Code(s): N30.00 - Acute cystitis without hematuria (2) Chest pain Current Visit: Yes Status: Acute Assessment and plan: Probably noncardiac. Chest pain is reproducible, present in left upper chest around underwent hemodialysis catheter. Continue telemetry monitoring. Serial troponins negative for ACS. Dialysis catheter has been exchanged, currently functioning well. Limited echocardiogram shows preserved ejection fraction. Qualifiers: Chest pain type: other chest pain Qualified Code(s): R07.89 - Other chest pain; R07.8 - Other chest pain (3) ESRD (end stage renal disease) on dialysis Current Visit: Yes Status: Chronic Assessment and plan: Nephrology is on board, patient underwent hemodialysis on Thursday with new HD catheter. Requests to get outpatient HD tomorrow as that is more comfortable; (4) Diabetes mellitus Current Visit: Yes Status: Chronic Assessment and plan: Blood sugars improving; Will increase SSI. Continue Accu-Chek blood glucose monitoring with basal and sliding scale insulin. Diabetic diet. Qualifiers: Diabetes mellitus type: type 2 Diabetes mellitus mcfp insulin use: with mcfp use Diabetes mellitus complication status: with hyperglycemia Qualified Code(s): E11.65 - Type 2 diabetes mellitus with hyperglycemia; Z79.4 - extermination inspector (current) use of insulin (5) Anemia in chronic kidney disease Current Visit: Yes Status: Chronic Qualifiers: Chronic kidney disease stage: on chronic dialysis Qualified Code(s): N18.6 - End stage renal disease; D63.1 - Anemia in chronic kidney disease; Z99.2 - Dependence on renal dialysis (6) Hypertension Current Visit: Yes Status: Chronic Qualifiers: Hypertension type: essential hypertension Qualified Code(s): I10 - Essential (primary) hypertension (7) Neurogenic bladder Current Visit: Yes Status: Chronic - Time Spent With Patient Total time spent is greater than 50% in coordination of care (as documented) at patient's floor/unit and/or counseling patient: - Subjective Interval history: Denies complaints; improved nausea and weakness; - Constitutional Vitals: Temp Pulse Resp BP Pulse Ox 98.9 F 63 16 154/76 95 09/27/17 15:41 09/27/17 15:41 09/27/17 15:41 09/27/17 15:41 09/27/17 15:41 General appearance: Present: A&O X 3, answers questions appropriately - Respiratory Respiratory exam: Present: CTAB. Absent: accessory muscle use, rales, rhonchi, wheezes - Cardiovascular Cardiovascular exam: Present: RRR, +S1, +S2. Absent: diastolic murmur, gallop, rubs, systolic murmur Internal Medicine: Result - Labs CBC & Chem 7: 09/25/17 04:47 09/25/17 04:47 - ABG Interpretation ABG results: PT/INR, D-dimer PT 10.0 Seconds (9.4-12.1) 09/24/17 10:17 D-Dimer 749 ng/mLFEU (0-500) H 09/24/17 16:27 Consult Discharge Plan - Plan Referrals: Miya Aden DO [Primary Care Provider] -
[2017-09-27] MEDS: Ampicillin 2 GM in 0.9 % Sodium Chloride Mini Bag 100 ML IVPB SCH ×2 (16:38→23:32)
[2017-09-27] MEDS ORDERED: Insulin LISPRO 300 UNITS/3 ML VIAL SQ SCH (21:00)
--- NOTE | 2017-09-27 21:06 | Electrocardiograph Report ---
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
[2017-09-28] MEDS: Ampicillin 2 GM in 0.9 % Sodium Chloride Mini Bag 100 ML IVPB SCH (05:02)
--- NOTE | 2017-09-28 06:34 | Electrocardiograph Report ---
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
[2017-09-28 07:13] LABS: Hematocrit 34.7 % (37.5-50.1); Hemoglobin 11.7 g/dL (12.9-16.9); Mean Corpuscular HGB Conc 33.7 g/dL (31.6-35.5); Mean Corpuscular Hemoglobin 30.5 pg (28.0-33.3); Mean Corpuscular Volume 90.4 fL (83.0-100.0); Mean Platelet Volume 9.6 fL (9.4-12.4); Platelet Count 203 K/mcL (140-400); Red Blood Count 3.84 M/mcL (4.19-5.50); Red Cell Distribution Width 13.3 % (11.5-14.5)
[2017-09-28 07:33] LABS: Calcium 8.3 mg/dL (8.6-10.3); Potassium 4.4 mEq/L (3.5-5.1)
[2017-09-28 07:45] VITALS: BP 143/77
[2017-09-28] MEDS: Insulin LISPRO 300 UNITS/3 ML VIAL SQ SCH (08:49)
[2017-09-28] MEDS: Insulin DETEMIR 100 UNIT/ML X5UNITS SQ SCH (08:49)
--- NOTE | 2017-09-28 10:49 | Discharge Summary ---
- NOTES TO OUTPATIENT PROVIDER Notes to Outpatient Provider: Chest pain, permcath exchanged, ACS ruled out. Enterococcus UTI, on Amoxicillin now; Date of Encounter: 09/28/17 Time of Encounter: 10:46 - Discharge Diagnosis (1) Urinary tract infection Priority: Primary Status: Acute Qualifiers: Urinary tract infection type: acute cystitis Hematuria presence: without hematuria Qualified Code(s): N30.00 - Acute cystitis without hematuria (2) Chest pain Priority: Primary Status: Acute Qualifiers: Chest pain type: other chest pain Qualified Code(s): R07.89 - Other chest pain; R07.8 - Other chest pain (3) ESRD (end stage renal disease) on dialysis Priority: Secondary Status: Chronic (4) Diabetes mellitus Priority: Secondary Status: Chronic Qualifiers: Diabetes mellitus type: type 2 Diabetes mellitus fci insulin use: with terminal operator use Diabetes mellitus complication status: with hyperglycemia Qualified Code(s): E11.65 - Type 2 diabetes mellitus with hyperglycemia; Z79.4 - watermelon inspector (current) use of insulin (5) Anemia in chronic kidney disease Priority: Secondary Status: Chronic Qualifiers: Chronic kidney disease stage: on chronic dialysis Qualified Code(s): N18.6 - End stage renal disease; D63.1 - Anemia in chronic kidney disease; Z99.2 - Dependence on renal dialysis (6) Hypertension Priority: Secondary Status: Chronic Qualifiers: Hypertension type: essential hypertension Qualified Code(s): I10 - Essential (primary) hypertension (7) Neurogenic bladder Priority: Secondary Status: Chronic Hospital course: Mr. Hernandez is a 52 year old male with the above medical problems, who was admitted with chest pain, which is likely musculoskeletal around left-sided PermCath. Telemetry was uneventful and serial troponins were negative for ACS. Echocardiogram was done which showed preserved ejection fraction, no wall motion abnormalities. Patient underwent exchange of left-sided PermCath by interventional radiology. Nephrology was consulted and he underwent regular hemodialysis sessions. Urine culture grew ampicillin sensitive vancomycin resistant Enterococcus faecalis. Patient was initially treated with IV Zyvox. Case was discussed with infectious diseases , he is stable for discharge on oral amoxicillin. This may also be colonization due to history of intermittent self- catheterization due to neurogenic bladder. However, patient claims he feels a lot better with antibiotics. Discharge discussed with: patient, child welfare consultant - Time Spent with Patient Total time spent providing and/or coordinating discharge services: Greater than 30 minutes (40 min) - Discharge Medications Prescriptions: Amoxicillin [Amoxil] 500 mg PO DAILY #10 capsule Home Medications: Aspirin [Lo-Dose Aspirin EC] 81 mg PO DAILY 07/30/17 [History] Insulin ASPART [NovoLOG] 10 unit SQ QAM AND QHS 07/30/17 [History] Insulin Glargine [Lantus] 35 unit SQ HS 07/30/17 [History] Midodrine [ProAmatine] 5 mg PO MOFR 09/22/17 [History] Ergocalciferol (VITAMIN D2) [Vitamin D2] 50,000 unit PO WE 09/24/17 [History] Insulin ASPART [NovoLOG] 15 unit SQ 1200 09/24/17 [History] Amoxicillin [Amoxil] 500 mg PO DAILY #10 capsule 09/28/17 [Rx] Allergies/Adverse Reactions: 3 Allergy/AdvReac Type Severity Reaction Status Date / Time No Known Allergies Allergy Verified 09/22/17 09:14 Date of admission: 09/24/17 12:16 Primary care physician: Jacobo Booker Consults: 09/25/17 06:45 Consult to Dialysis [CONS] ONCE Discharging clinician: Majo Jefferson Anticipated date of discharge: 09/28/17 - Constitutional Vitals: Temp Pulse Resp BP Pulse Ox 98.3 F 66 15 143/77 97 09/28/17 07:39 09/28/17 07:39 09/28/17 07:39 09/28/17 07:39 09/28/17 08:50 General appearance: Present: A&O X 3, answers questions appropriately - Cardiovascular Cardiovascular exam: Present: RRR, +S1, +S2. Absent: diastolic murmur, gallop, rubs, systolic murmur - Patient Status Disposition: Home Health Service Condition: Good Functional capacity at discharge: independent ambulation Overall status at discharge: patient is progressing back to baseline - Discharge Instructions Instructions: Urinary Tract Infection in Men (DC) Follow Up With: Miya Aden DO [Primary Care Provider] - 10/05/17 4:15 pm (`web request 09/28/2017) Additional Instructions: F/up with PCP in 1-2 weeks F/up with HD 3 times/week- MWF - Diet and Activity Activity: resume usual activities as tolerated Diet: diabetic diet, low fat, low cholesterol, low salt diet, other (renal diet)
--- NOTE | 2017-09-28 10:55 | Physician Discharge Referral ---
Home Health/Hosp Referral Info Transfer to: Home Health Attending Provider: Majo Jefferson Provider in Charge Post Discharge: PCP - Diagnosis (1) Urinary tract infection Priority: Primary Status: Acute (2) Chest pain Priority: Primary Status: Acute (3) ESRD (end stage renal disease) on dialysis Priority: Secondary Status: Chronic (4) Diabetes mellitus Priority: Secondary Status: Chronic (5) Anemia in chronic kidney disease Priority: Secondary Status: Chronic (6) Hypertension Priority: Secondary Status: Chronic (7) Neurogenic bladder Priority: Secondary Status: Chronic - Respiratory Orders Smoking Cessation: Smoking cessation has been advised. For more information, call the [place] Tobacco Quit Line at 6-770-RRYG-NOW. - Diet/Nutrition Diet/Nutrition Orders: Renal, No Concentrated Sweets (diabetic) - Activity Activity Orders: Ambulate - Services Needed Following services are medically necessary services: Nursing - Transfer Medications Prescriptions: Amoxicillin [Amoxil] 500 mg PO DAILY #10 capsule Home Medications: Aspirin [Lo-Dose Aspirin EC] 81 mg PO DAILY 07/30/17 [History] Insulin ASPART [NovoLOG] 10 unit SQ QAM AND QHS 07/30/17 [History] Insulin Glargine [Lantus] 35 unit SQ HS 07/30/17 [History] Midodrine [ProAmatine] 5 mg PO MOFR 09/22/17 [History] Ergocalciferol (VITAMIN D2) [Vitamin D2] 50,000 unit PO WE 09/24/17 [History] Insulin ASPART [NovoLOG] 15 unit SQ 1200 09/24/17 [History] Amoxicillin [Amoxil] 500 mg PO DAILY #10 capsule 09/28/17 [Rx] Allergies/Adverse Reactions: 3 Allergy/AdvReac Type Severity Reaction Status Date / Time No Known Allergies Allergy Verified 09/22/17 09:14 Certification: Further, I certify that my clinical findings support that this patient is homebound (i.e. absences from home require considerable and taxing effort and are for medical reasons or pentecostalism services or infrequently or short duration when for other reasons) because: Homebound Reason: Leaving home requires considerable and taxing effort due to condition Attestation: My signature below is to certify that this patient is under my care and that I, or nurse practitioner, or a physician's assistant spa manager working with me, has a face-to -face encounter with this patient.
[2017-09-28] MEDS ORDERED: Ampicillin 2 GM in 0.9 % Sodium Chloride Mini Bag 100 ML IVPB SCH (18:00)
== END 2017-09-28 11:52 | disposition home health service (06) ==
LOC: 2ANU 09:47 → EMEROO 09:47 → SUATTDRO 12:16 → 2ANU 12:43
PROVIDERS: ADMIT Family Medicine; ATTEND Internal Medicine

== ENCOUNTER 2017-10-07 11:45 | Inpatient (IN) ==
[2017-10-07] MEDS ORDERED: Ondansetron 4 MG/2 ML VIAL IVP ONE (12:07)
--- NOTE | 2017-10-07 12:07 | Emergency Department Note ---
Disposition Clinical Impression: ESRD (end stage renal disease) UTI (urinary tract infection) Qualifiers: Urinary tract infection type: site unspecified Hematuria presence: without hematuria Qualified Code(s): N39.0 - Urinary tract infection, site not specified Disposition: Admitted As Inpatient Condition: Fair Forms: ED Satisfaction Letter Time of Disposition: 14:12 General Adult HPI - General Chief complaint: ED Recheck/Abnormal Lab/Rx Stated complaint: "failed oupatient abx, UTI" Time Seen by Provider: 10/07/17 11:55 Source: patient Mode of arrival: ambulatory Limitations: no limitations Nursing Notes Reviewed: Yes Vital Signs Reviewed: Yes - History of Present Illness HPI Narrative: 52-year-old male with a history of diabetes, ESRD (Thursday), recurrent UTIs with self-catheterization presents for evaluation of lower abdominal discomfort as well as low-grade fevers vomiting and possibly with self- catheterization. Patient presents from his primary care physician for concerns of recurrent UTI. Patient denies any specific abdominal pain states he does feel nauseous. Patient states that he was prescribed an antibiotic in the outpatient setting but has not been tolerate that antibiotic. 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 Patient denies any chest pain however does note some dyspnea mostly with exertion. Denies any productive cough. Patient's bobcat driver/labor is Dr. Lena Rios and had a most recent dialysis appointment on Thursday. Patient states that he still produces some urine. Pain Scale: 0 - Related Data Home Medications Medication Instructions Recorded Confirmed Aspirin [Lo-Dose Aspirin EC] 81 mg PO DAILY 07/30/17 10/07/17 Insulin ASPART [NovoLOG] 10 unit SQ QAM AND QHS 07/30/17 10/07/17 Insulin Glargine [Lantus] 35 unit SQ HS 07/30/17 10/07/17 Midodrine [ProAmatine] 5 mg PO MOFR 09/22/17 10/07/17 Ergocalciferol (VITAMIN D2) 50,000 unit PO WE 09/24/17 10/07/17 [Vitamin D2] Insulin ASPART [NovoLOG] 15 unit SQ 1200 09/24/17 10/07/17 Previous Rx's Medication Instructions Recorded Amoxicillin [Amoxil] 500 mg PO DAILY #10 capsule 09/28/17 Allergies Allergy/AdvReac Type Severity Reaction Status Date / Time No Known Allergies Allergy Verified 09/22/17 09:14 All systems ED: reviewed and negative except as stated. Constitutional: Reports: fever Cardiovascular: Denies: chest pain Respiratory: Reports: cough, dyspnea Gastrointestinal: Reports: abdominal pain, nausea, vomiting Past Medical History - Past Medical History Source: patient Medical history: Reports: diabetes, dialysis, hypertension, renal disease Surgical history: Reports: cholecystectomy Psychiatric history: Reports: anxiety - Social History Smoking Status: Never smoker Smokeless Tobacco Status: No Alcohol use: Reports: none Drug use: Reports: none Physical Exam - General Limitations: no limitations General appearance: alert, in no apparent distress - Head Head exam: atraumatic, normocephalic, normal inspection - Eye Eye exam: Present: normal appearance, PERRL, EOMI - ENT ENT exam: normal exam, normal oropharynx, mucous membranes moist - Neck Neck exam: Present: normal inspection - Chest Chest inspection: Present: normal inspection, symmetric chest wall rise, other ( Left upper chest wall dialysis catheter in place without surrounding erythema or signs of infection.) - Respiratory Respiratory exam: Present: normal lung sounds bilaterally. Absent: respiratory distress - Cardiovascular Cardiovascular exam: Present: regular rate, normal rhythm. Absent: systolic murmur - Abdominal Exam Abdominal exam: Present: soft, Non-Tender. Absent: guarding, rebound - Extremities Exam Extremities exam: Present: normal inspection. Absent: pedal edema - Back Exam Back exam: Present: normal inspection - Neurological Exam Neurological exam: Present: alert, oriented X3, CN II-XII intact - Skin Skin exam: Present: warm, dry, intact, normal color Course Course Narrative: Patient will get basic labs. Given the patient's clinical exam patient likely has recurrent UTI not able tolerate oral antibiotics. Worsening symptoms. Patient will be admitted to the hospitalist service after routine labs and urinalysis. Records reviewed showed the patient does have history of VRE. Patient's prior results showed that the patient was sensitive to ampicillin. Patient will be started on ampicillin given the patient's clinical exam. Patient will be straight cathetered. Vital Signs Temperature 99.0 F 10/07/17 11:49 Pulse Rate 86 10/07/17 11:49 Respiratory Rate 18 10/07/17 11:49 Blood Pressure 155/80 10/07/17 11:49 O2 Sat by Pulse Oximetry 95 10/07/17 11:49 Temperature 99.0 F 10/07/17 12:56 Pulse Rate 77 10/07/17 12:58 Respiratory Rate 18 10/07/17 12:58 Blood Pressure 152/72 10/07/17 12:58 O2 Sat by Pulse Oximetry 90 10/07/17 12:58 Oxygen Delivery Oxygen Delivery Room Air Medical Decision Making - MDM Narrative Medical decision making narrative: 52-year-old male with history of recent hospitalization at self-catheterization presents for evaluation of UTI symptoms. Patient notes pus with self- catheterization. Patient had a recent auscultation for VRE. There is a possibility the patient is colonized. Patient has not been able tolerate his by mouth antibiotics. Patient also has not had any secondary complaints of pneumonia. Patient's on room air with no cough. Patient clinically has a urinary tract infection and based on prior culture results patient was started on the most appropriate IV antibiotic. Patient will be admitted to hospital service to ensure symptom resolution. Patient had a soft benign abdomen on exam did not warrant any CT imaging of the abdomen or pelvis. Patient's been resting comfortably with stable vital signs remained the ED course. - Lab Data Lab results reviewed: Yes I reviewed the patient's lab results. Result diagrams: 10/07/17 12:13 10/07/17 12:13 Lab Results 10/07/17 10/07/17 10/07/17 Range/Units 12:13 12:13 12:13 WBC 16.7 H (4.3-11.1) K/mcL RBC 4.11 L (4.19-5.50) M/mcL Hgb 12.5 L (12.9-16.9) g/dL Hct 35.8 L (37.5-50.1) % MCV 87.1 (83.0-100.0) fL MCH 30.4 (28.0-33.3) pg MCHC 34.9 (31.6-35.5) g/dL RDW 13.2 (11.5-14.5) % Plt Count 218 (140-400) K/mcL MPV 9.0 L (9.4-12.4) fL Immature Gran % 0.5 (0-4) % Seg Neutrophils % 83.8 % Lymphocytes % 8.0 % Monocytes % 7.4 % Eosinophils % 0.1 % Basophils % 0.2 % Neutrophils # 13.9 H (1.6-8.9) K/mcL Lymphocytes # 1.3 (0.6-4.6) K/mcL Monocytes # 1.2 (0.0-1.3) K/mcL Eosinophils # 0.0 (0.0-0.6) K/mcL Basophils # 0.0 (0.0-0.2) K/mcL Sodium 134 L (136-145) mEq/L Potassium 4.2 (3.5-5.1) mEq/L Chloride 101 (98-107) mEq/L Carbon Dioxide 23 (23-29) mEq/L BUN 47 H (6-20) mg/dL Creatinine 4.17 H (0.70-1.30) mg/dL Est GFR ( Amer) 18 L (> 60) Est GFR (Non-Af Amer) 15 L (> 60) BUN/Creatinine Ratio 11 (6-26) Glucose 307 H (70-105) mg/dL Calculated Osmolality 302 H (280-300) Lactic Acid 1.1 (0.5-2.2) mmol/L Calcium 8.4 L (8.6-10.3) mg/dL Total Bilirubin 0.3 (0.3-1.0) mg/dL Direct Bilirubin 0.2 (0.0-0.2) mg/dL Indirect Bilirubin 0.1 (0.0-1.2) mg/dL AST 9 L (13-39) Units/L ALT 7 (7-52) Units/L Alkaline Phosphatase 98 (34-104) Units/L Serum Total Protein 6.5 (6.4-8.9) g/dL Albumin 3.2 L (3.5-5.7) g/dL Globulin 3.3 (2.4-3.5) g/dL Albumin/Globulin Ratio 1.0 L (1.1-2.2) Urine Color (Yellow) Urine Clarity (Clear) Urine pH (5.0-8.0) pH Units Ur Specific [place] (1.010-1.025) Urine Protein (Neg-Trace) mg/dL Urine Glucose (UA) (Normal) mg/dL Urine Ketones (Negative) mg/dL Urine Blood (Negative) Urine Nitrite (Negative) Urine Bilirubin (Negative) Urine Urobilinogen (Normal) mg/dL Ur Leukocyte Esterase (Negative) Urine Microscopic RBC (0-3) per hpf Urine Microscopic WBC (0-3) per hpf Ur Squamous Epith Cells (None-Few) per lpf Urine Bacteria (None-Few) per hpf Hyaline Casts (None-Few) per lpf Ur Culture Indicated? (NO) 10/07/17 Range/Units 12:59 WBC (4.3-11.1) K/mcL RBC (4.19-5.50) M/mcL Hgb (12.9-16.9) g/dL Hct (37.5-50.1) % MCV (83.0-100.0) fL MCH (28.0-33.3) pg MCHC (31.6-35.5) g/dL RDW (11.5-14.5) % Plt Count (140-400) K/mcL MPV (9.4-12.4) fL Immature Gran % (0-4) % Seg Neutrophils % % Lymphocytes % % Monocytes % % Eosinophils % % Basophils % % Neutrophils # (1.6-8.9) K/mcL Lymphocytes # (0.6-4.6) K/mcL Monocytes # (0.0-1.3) K/mcL Eosinophils # (0.0-0.6) K/mcL Basophils # (0.0-0.2) K/mcL Sodium (136-145) mEq/L Potassium (3.5-5.1) mEq/L Chloride (98-107) mEq/L Carbon Dioxide (23-29) mEq/L BUN (6-20) mg/dL Creatinine (0.70-1.30) mg/dL Est GFR ( Amer) (> 60) Est GFR (Non-Af Amer) (> 60) BUN/Creatinine Ratio (6-26) Glucose (70-105) mg/dL Calculated Osmolality (280-300) Lactic Acid (0.5-2.2) mmol/L Calcium (8.6-10.3) mg/dL Total Bilirubin (0.3-1.0) mg/dL Direct Bilirubin (0.0-0.2) mg/dL Indirect Bilirubin (0.0-1.2) mg/dL AST (13-39) Units/L ALT (7-52) Units/L Alkaline Phosphatase (34-104) Units/L Serum Total Protein (6.4-8.9) g/dL Albumin (3.5-5.7) g/dL Globulin (2.4-3.5) g/dL Albumin/Globulin Ratio (1.1-2.2) Urine Color Yellow (Yellow) Urine Clarity Clear (Clear) Urine pH 7.0 (5.0-8.0) pH Units Ur Specific [place] 1.025 (1.010-1.025) Urine Protein >=1000 H (Neg-Trace) mg/dL Urine Glucose (UA) >=1000 H (Normal) mg/dL Urine Ketones Trace H (Negative) mg/dL Urine Blood Small H (Negative) Urine Nitrite Negative (Negative) Urine Bilirubin Negative (Negative) Urine Urobilinogen Normal (Normal) mg/dL Ur Leukocyte Esterase Negative (Negative) Urine Microscopic RBC 5-15 H (0-3) per hpf Urine Microscopic WBC 15-30 H (0-3) per hpf Ur Squamous Epith Cells Many H (None-Few) per lpf Urine Bacteria None Seen (None-Few) per hpf Hyaline Casts Few (None-Few) per lpf Ur Culture Indicated? NO (NO) Andrew - Andrew Situation: Demographics Background: Presenting Complaint Assessment: Vital Signs, Patient/Family Expectation Recommendation: Barrier(s) to disposition, Recommendation based on pending studies, treatments, or consults Andrew Report Given to: Dr. Madison Morales Repor Time: 14:06
[2017-10-07] MEDS ORDERED: Ampicillin 2 GM in 0.9 % Sodium Chloride Mini Bag 100 ML IVPB ONE (12:13)
[2017-10-07 12:22] LABS: Basophils % 0.2 %; Eosinophils % 0.1 %; Hematocrit 35.8 % (37.5-50.1); Hemoglobin 12.5 g/dL (12.9-16.9); Immature Granulocytes % 0.5 % (0-4); Lymphocytes # 1.3 K/mcL (0.6-4.6); Mean Corpuscular HGB Conc 34.9 g/dL (31.6-35.5); Mean Corpuscular Hemoglobin 30.4 pg (28.0-33.3); Mean Corpuscular Volume 87.1 fL (83.0-100.0); Monocytes # 1.2 K/mcL (0.0-1.3); Monocytes % 7.4 %; Neutrophils # 13.9 K/mcL (1.6-8.9); Platelet Count 218 K/mcL (140-400); Red Blood Count 4.11 M/mcL (4.19-5.50); Red Cell Distribution Width 13.2 % (11.5-14.5); Segmented Neutrophils % 83.8 %
[2017-10-07 12:42] LABS: Albumin 3.2 g/dL (3.5-5.7); Bilirubin,Direct 0.2 mg/dL (0.0-0.2); Bilirubin,Indirect 0.1 mg/dL (0.0-1.2); Bilirubin,Total 0.3 mg/dL (0.3-1.0); Calcium 8.4 mg/dL (8.6-10.3); Globulin 3.3 g/dL (2.4-3.5); Potassium 4.2 mEq/L (3.5-5.1); Total Protein 6.5 g/dL (6.4-8.9)
[2017-10-07 13:24] LABS: Bilirubin,Urine Negative (Negative); Blood,Urine Small (Negative); Clarity,Urine Clear (Clear); Color,Urine Yellow (Yellow); Glucose,Urine (UA) >=1000 mg/dL (Normal); Ketones,Urine Trace mg/dL (Negative); Leukocyte Esterase,Urine Negative (Negative); Nitrite,Urine Negative (Negative); Protein,Urine >=1000 mg/dL (Neg-Trace); Specific Gravity,Urine 1.025 (1.010-1.025); Urobilinogen,Urine Normal (Normal)
[2017-10-07 13:28] LABS: Bacteria,Urine None Seen per hpf (None-Few); Hyaline Casts,Urine Few per lpf (None-Few); Squamous Epithelial Cell,Urine Many per lpf (None-Few); WBC,Urine 15-30 per hpf (0-3)
--- NOTE | 2017-10-07 14:12 | Internal Med History&Physical ---
Date of Encounter: 10/07/17 Time of Encounter: 14:05 Internal Medicine - H&P: HPI Admitted From: Emergency Dept Plans for Post Hospital Care: Home History of present illness: Mr. Hernandez is a 52 year old male with history of HTN,ESRD on HD, neurogenic bladder requiring intermittent self caths, DM, anemia of chronic disease who is sent by PCP due to concerns for failed outpatient oral abx for UTI. Patient was d/c from her 09/28 for VRE UTI on oral amoxicillin. At the time during hospitalization, the patient was on Zyvox IV. WBC at d/c was 7.2. Today it is 16.7. UA today showed 15-30 WBC. In the ED, the patient was hemodynamically stable and received IV ampicillin for suspected UTI. Tmax was 99.0. The patient has been doing well since d/c up until yesterday. He started having nausea and vomiting. He says he also had constant watery diarrhea all day yesterday and into this morning. He has not tolerated PO. He went to see his PCP today as a follow up from the previous hospitalization and was sent here. Reports low grade fevers. No headache, blurry vision, chest pain, shortness of breath, diarrhea, constipation, lower ext edema, neurological symptoms. 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 prostate surgery. CORNELIUS HD permacath - Social History Smoking Status: Never smoker Smokeless Tobacco Status: No Alcohol use: none Drug use: none - Family History Mother Living Status: Hx Family Cardiac Disorders: Yes (stroke) Hx Family Respiratory Disorders: Yes Hx Family Endocrine Disorder: Yes (DM) Father Living Status: Hx Family Cardiac Disorders: Yes (stent) Hx Family Cancer: Yes Hx Family Endocrine Disorder: Yes (DM) Internal Medicine - H&P: Meds Aspirin [Lo-Dose Aspirin EC] 81 mg PO DAILY 07/30/17 [History] Insulin ASPART [NovoLOG] 10 unit SQ QAM AND QHS 07/30/17 [History] Insulin Glargine [Lantus] 35 unit SQ HS 07/30/17 [History] Midodrine [ProAmatine] 5 mg PO MOFR 09/22/17 [History] Ergocalciferol (VITAMIN D2) [Vitamin D2] 50,000 unit PO WE 09/24/17 [History] Insulin ASPART [NovoLOG] 15 unit SQ 1200 09/24/17 [History] Amoxicillin [Amoxil] 500 mg PO DAILY #10 capsule 09/28/17 [Rx] 3 Allergy/AdvReac Type Severity Reaction Status Date / Time No Known Allergies Allergy Verified 09/22/17 09:14 All Systems PM: A 10-system review of systems was performed and is negative for pertinent findings except as documented above in the HPI. Review of systems: All systems reviewed are negative except as mentioned above - Constitutional Vitals: Temp Pulse Resp BP Pulse Ox 99.0 F 77 18 152/72 90 10/07/17 12:56 10/07/17 12:58 10/07/17 12:58 10/07/17 12:58 10/07/17 12:58 Exam: GEN: NAD HEENT: AT, NC, No cyanosis, oral mucosa is moist, No JVD Lymphatics: No lymphadenoapthy Eyes: Extrocular muscles intact, anicteric CVS:RRR. S1, S2, No m/r/g RESP: CTAB ABD: Soft, generalized tenderness but no rebound, ND, +BS EXT: No edema, No rashes, 2+ DP NEURO: Nonfocal, CN II-XII intact, No focal motor or sensory deficits Psych: Cooperative, Not anxious or depressed Internal Med - H&P Results - Labs CBC & Chem 7: 10/07/17 12:13 10/07/17 12:13 Labs: Short CBC 10/07/17 Range/Units 12:13 WBC 16.7 H (4.3-11.1) K/mcL Hgb 12.5 L (12.9-16.9) g/dL Hct 35.8 L (37.5-50.1) % Plt Count 218 (140-400) K/mcL Neutrophils # 13.9 H (1.6-8.9) K/mcL BMP 10/07/17 12:13 Sodium 134 L Potassium 4.2 Chloride 101 Carbon Dioxide 23 BUN 47 H Creatinine 4.17 H Glucose 307 H Calcium 8.4 L Liver Function 10/07/17 Range/Units 12:13 Total Bilirubin 0.3 (0.3-1.0) mg/dL Direct Bilirubin 0.2 (0.0-0.2) mg/dL AST 9 L (13-39) Units/L ALT 7 (7-52) Units/L Alkaline Phosphatase 98 (34-104) Units/L Albumin 3.2 L (3.5-5.7) g/dL Urine 10/07/17 Range/Units 12:59 Urine Color Yellow (Yellow) Urine Clarity Clear (Clear) Urine pH 7.0 (5.0-8.0) pH Units Ur Specific [place] 1.025 (1.010-1.025) Urine Protein >=1000 H (Neg-Trace) mg/dL Urine Glucose (UA) >=1000 H (Normal) mg/dL - Assessment and plan (1) Nausea vomiting and diarrhea Current Visit: Yes Status: Acute Assessment and plan: Associated with vague abdominal pain mostly in lower abdomen. ?? gastroenteritis. Will rule out C. Diff since patient has been on abx. check CT abd/pelvis STAT. IV zofran PRN. (2) Leukocytosis Current Visit: Yes Status: Acute Assessment and plan: Not entirely convinced that this is a UTI. Will treat UTI as below. Leukocytosis possibly viral gastroenteritis. Rule out C. Diff. check GI panel. Qualifiers: Leukocytosis type: unspecified Qualified Code(s): D72.829 - Elevated white blood cell count, unspecified (3) Urinary tract infection Current Visit: Yes Status: Acute Assessment and plan: Not sure if really true UTI. Possibly colonized. The patient was improving on IV abx prior to d/c. Will put the patient on Zyvox IV for now as previously and f/u on cultures. Qualifiers: Urinary tract infection type: site unspecified Hematuria presence: without hematuria Qualified Code(s): N39.0 - Urinary tract infection, site not specified (4) Diabetes Current Visit: No Status: Chronic Assessment and plan: resume home basal insulin. Sliding scale insulin. Accuchecks. Qualifiers: Diabetes mellitus type: type 2 Diabetes mellitus retirement insulin use: without reimbursement manager use Diabetes mellitus complication status: without complication Qualified Code(s): E11.9 - Type 2 diabetes mellitus without complications (5) ESRD (end stage renal disease) on dialysis Current Visit: No Status: Chronic Assessment and plan: Patient is M/F dialysis. Will c/s nephrology tomorrow by Thursday if patient remains here till then. (6) DVT prophylaxis Current Visit: No Status: Acute Assessment and plan: heparin SQ - Time Spent With Patient Total time spent is greater than 50% in coordination of care (as documented) at patient's floor/unit and/or counseling patient:
[2017-10-07] MEDS ORDERED: *HR* Dextrose 50 % in Water (Syg) 50 ML SYRINGE IVP PRN (14:13)
[2017-10-07] MEDS ORDERED: Naloxone 0.4 MG/ML INJ IVP PRN (14:13)
[2017-10-07] MEDS ORDERED: Acetaminophen 325 MG TABLET PO PRN (14:13)
[2017-10-07] MEDS ORDERED: D5% in Water 1,000 ML IVC PRN (14:13)
[2017-10-07] MEDS ORDERED: Dextrose Gel 15 GM/37.5 ML TUBE PO PRN ×2 (14:13)
[2017-10-07] MEDS ORDERED: Prochlorperazine 10 MG/2 ML VIAL IVP ONE (14:13)
[2017-10-07] MEDS: Insulin LISPRO 300 UNITS/3 ML VIAL SQ SCH ×2 (16:55→21:26)
--- NOTE | 2017-10-07 16:56 | Emergency Department Note ---
Disposition Clinical Impression: ESRD (end stage renal disease) UTI (urinary tract infection) Qualifiers: Urinary tract infection type: site unspecified Hematuria presence: without hematuria Qualified Code(s): N39.0 - Urinary tract infection, site not specified Disposition: Admitted As Inpatient Condition: Fair General Adult HPI - General Chief complaint: ED Urogenital-Male Stated complaint: "failed oupatient abx, UTI" Time Seen by Provider: 10/07/17 11:55 Source: patient Mode of arrival: ambulatory Limitations: no limitations - History of Present Illness Pain Scale: 7 - Related Data Home Medications Medication Instructions Recorded Confirmed Aspirin [Lo-Dose Aspirin EC] 81 mg PO DAILY 07/30/17 10/07/17 Insulin ASPART [NovoLOG] 10 unit SQ QAM AND QHS 07/30/17 10/07/17 Insulin Glargine [Lantus] 35 unit SQ HS 07/30/17 10/07/17 Midodrine [ProAmatine] 5 mg PO MOFR 09/22/17 10/07/17 Ergocalciferol (VITAMIN D2) 50,000 unit PO WE 09/24/17 10/07/17 [Vitamin D2] Insulin ASPART [NovoLOG] 15 unit SQ 1200 09/24/17 10/07/17 Previous Rx's Medication Instructions Recorded Amoxicillin [Amoxil] 500 mg PO DAILY #10 capsule 09/28/17 Allergies Allergy/AdvReac Type Severity Reaction Status Date / Time No Known Allergies Allergy Verified 09/22/17 09:14 Constitutional: Reports: fever Cardiovascular: Denies: chest pain Respiratory: Reports: cough, dyspnea Gastrointestinal: Reports: abdominal pain, nausea, vomiting Past Medical History - Past Medical History Medical history: Reports: diabetes, dialysis, hypertension, renal disease Surgical history: Reports: cholecystectomy Psychiatric history: Reports: anxiety - Social History Smoking Status: Never smoker Smokeless Tobacco Status: No Alcohol use: Reports: none Drug use: Reports: none Physical Exam - General Limitations: no limitations General appearance: alert, in no apparent distress Course Vital Signs Temperature 99.0 F 10/07/17 11:49 Pulse Rate 86 10/07/17 11:49 Respiratory Rate 18 10/07/17 11:49 Blood Pressure 155/80 10/07/17 11:49 O2 Sat by Pulse Oximetry 95 10/07/17 11:49 Temperature 99.6 F 06/27/18 15:56 Pulse Rate 81 10/07/17 15:56 Respiratory Rate 16 10/07/17 15:56 Blood Pressure 139/82 10/07/17 15:56 O2 Sat by Pulse Oximetry 90 10/07/17 15:56 Oxygen Delivery Oxygen Delivery Room Air Medical Decision Making - Lab Data Result diagrams: 10/07/17 12:13 10/07/17 12:13 Lab Results 10/07/17 10/07/17 10/07/17 Range/Units 12:13 12:13 12:13 WBC 16.7 H (4.3-11.1) K/mcL RBC 4.11 L (4.19-5.50) M/mcL Hgb 12.5 L (12.9-16.9) g/dL Hct 35.8 L (37.5-50.1) % MCV 87.1 (83.0-100.0) fL MCH 30.4 (28.0-33.3) pg MCHC 34.9 (31.6-35.5) g/dL RDW 13.2 (11.5-14.5) % Plt Count 218 (140-400) K/mcL MPV 9.0 L (9.4-12.4) fL Immature Gran % 0.5 (0-4) % Seg Neutrophils % 83.8 % Lymphocytes % 8.0 % Monocytes % 7.4 % Eosinophils % 0.1 % Basophils % 0.2 % Neutrophils # 13.9 H (1.6-8.9) K/mcL Lymphocytes # 1.3 (0.6-4.6) K/mcL Monocytes # 1.2 (0.0-1.3) K/mcL Eosinophils # 0.0 (0.0-0.6) K/mcL Basophils # 0.0 (0.0-0.2) K/mcL Sodium 134 L (136-145) mEq/L Potassium 4.2 (3.5-5.1) mEq/L Chloride 101 (98-107) mEq/L Carbon Dioxide 23 (23-29) mEq/L BUN 47 H (6-20) mg/dL Creatinine 4.17 H (0.70-1.30) mg/dL Est GFR ( Amer) 18 L (> 60) Est GFR (Non-Af Amer) 15 L (> 60) BUN/Creatinine Ratio 11 (6-26) Glucose 307 H (70-105) mg/dL Calculated Osmolality 302 H (280-300) Lactic Acid 1.1 (0.5-2.2) mmol/L Calcium 8.4 L (8.6-10.3) mg/dL Total Bilirubin 0.3 (0.3-1.0) mg/dL Direct Bilirubin 0.2 (0.0-0.2) mg/dL Indirect Bilirubin 0.1 (0.0-1.2) mg/dL AST 9 L (13-39) Units/L ALT 7 (7-52) Units/L Alkaline Phosphatase 98 (34-104) Units/L Serum Total Protein 6.5 (6.4-8.9) g/dL Albumin 3.2 L (3.5-5.7) g/dL Globulin 3.3 (2.4-3.5) g/dL Albumin/Globulin Ratio 1.0 L (1.1-2.2) Lipase 89 H (11-82) Units/L Urine Color (Yellow) Urine Clarity (Clear) Urine pH (5.0-8.0) pH Units Ur Specific [place] (1.010-1.025) Urine Protein (Neg-Trace) mg/dL Urine Glucose (UA) (Normal) mg/dL Urine Ketones (Negative) mg/dL Urine Blood (Negative) Urine Nitrite (Negative) Urine Bilirubin (Negative) Urine Urobilinogen (Normal) mg/dL Ur Leukocyte Esterase (Negative) Urine Microscopic RBC (0-3) per hpf Urine Microscopic WBC (0-3) per hpf Ur Squamous Epith Cells (None-Few) per lpf Urine Bacteria (None-Few) per hpf Hyaline Casts (None-Few) per lpf Ur Culture Indicated? (NO) 10/07/17 Range/Units 12:59 WBC (4.3-11.1) K/mcL RBC (4.19-5.50) M/mcL Hgb (12.9-16.9) g/dL Hct (37.5-50.1) % MCV (83.0-100.0) fL MCH (28.0-33.3) pg MCHC (31.6-35.5) g/dL RDW (11.5-14.5) % Plt Count (140-400) K/mcL MPV (9.4-12.4) fL Immature Gran % (0-4) % Seg Neutrophils % % Lymphocytes % % Monocytes % % Eosinophils % % Basophils % % Neutrophils # (1.6-8.9) K/mcL Lymphocytes # (0.6-4.6) K/mcL Monocytes # (0.0-1.3) K/mcL Eosinophils # (0.0-0.6) K/mcL Basophils # (0.0-0.2) K/mcL Sodium (136-145) mEq/L Potassium (3.5-5.1) mEq/L Chloride (98-107) mEq/L Carbon Dioxide (23-29) mEq/L BUN (6-20) mg/dL Creatinine (0.70-1.30) mg/dL Est GFR ( Amer) (> 60) Est GFR (Non-Af Amer) (> 60) BUN/Creatinine Ratio (6-26) Glucose (70-105) mg/dL Calculated Osmolality (280-300) Lactic Acid (0.5-2.2) mmol/L Calcium (8.6-10.3) mg/dL Total Bilirubin (0.3-1.0) mg/dL Direct Bilirubin (0.0-0.2) mg/dL Indirect Bilirubin (0.0-1.2) mg/dL AST (13-39) Units/L ALT (7-52) Units/L Alkaline Phosphatase (34-104) Units/L Serum Total Protein (6.4-8.9) g/dL Albumin (3.5-5.7) g/dL Globulin (2.4-3.5) g/dL Albumin/Globulin Ratio (1.1-2.2) Lipase (11-82) Units/L Urine Color Yellow (Yellow) Urine Clarity Clear (Clear) Urine pH 7.0 (5.0-8.0) pH Units Ur Specific [place] 1.025 (1.010-1.025) Urine Protein >=1000 H (Neg-Trace) mg/dL Urine Glucose (UA) >=1000 H (Normal) mg/dL Urine Ketones Trace H (Negative) mg/dL Urine Blood Small H (Negative) Urine Nitrite Negative (Negative) Urine Bilirubin Negative (Negative) Urine Urobilinogen Normal (Normal) mg/dL Ur Leukocyte Esterase Negative (Negative) Urine Microscopic RBC 5-15 H (0-3) per hpf Urine Microscopic WBC 15-30 H (0-3) per hpf Ur Squamous Epith Cells Many H (None-Few) per lpf Urine Bacteria None Seen (None-Few) per hpf Hyaline Casts Few (None-Few) per lpf Ur Culture Indicated? NO (NO) Attestation Statement - Attestation Attestation: I examined this patient and my medical decision-making was reviewed with the Resident Physician. I agree with the documented findings, disposition and treatment plan as described except to the extent set forth below. ESRD pt w h/o VRE presents to be admitted for O/P rx failure of UTI. Not SIRS positive. Abx chosen based on prior culture results. Admitted.
[2017-10-07] MEDS ORDERED: *HR* Heparin 10,000 UNIT/10 ML VIAL IV PRN (19:10)
[2017-10-07] MEDS: *HR* Heparin 5,000 UNIT/ML VIAL SQ SCH (21:20)
[2017-10-07] MEDS: Insulin DETEMIR 100 UNIT/ML X5UNITS SQ SCH (21:21)
[2017-10-08] MEDS: *HR* Heparin 5,000 UNIT/ML VIAL SQ SCH ×3 (05:27→22:34)
[2017-10-08 05:36] LABS: Basophils % 0.2 %; Eosinophils % 0.2 %; Hematocrit 37.4 % (37.5-50.1); Hemoglobin 12.8 g/dL (12.9-16.9); Immature Granulocytes % 0.5 % (0-4); Lymphocytes # 1.2 K/mcL (0.6-4.6); Lymphocytes % 7.1 %; Mean Corpuscular HGB Conc 34.2 g/dL (31.6-35.5); Mean Corpuscular Hemoglobin 30.3 pg (28.0-33.3); Mean Corpuscular Volume 88.4 fL (83.0-100.0); Mean Platelet Volume 9.2 fL (9.4-12.4); Monocytes # 1.3 K/mcL (0.0-1.3); Monocytes % 7.9 %; Neutrophils # 14.4 K/mcL (1.6-8.9); Platelet Count 208 K/mcL (140-400); Red Blood Count 4.23 M/mcL (4.19-5.50); Red Cell Distribution Width 13.1 % (11.5-14.5); Segmented Neutrophils % 84.1 %
[2017-10-08 05:53] LABS: Calcium 8.4 mg/dL (8.6-10.3); Magnesium 1.5 mg/dL (1.6-2.6); Potassium 4.2 mEq/L (3.5-5.1)
[2017-10-08] MEDS: Insulin LISPRO 300 UNITS/3 ML VIAL SQ SCH ×4 (08:10→22:38)
[2017-10-08] MEDS: Aspirin Enteric Coated 81 MG Tablet PO SCH (08:10)
[2017-10-08] MEDS ORDERED: Ondansetron 4 MG/2 ML VIAL IVP ONE (10:41)
[2017-10-08] MEDS ORDERED: Magnesium Oxide 400 MG TABLET PO ONE (10:42)
--- NOTE | 2017-10-08 10:59 | Internal Med Progress Note ---
Date of Encounter: 10/08/17 Time of Encounter: 10:57 - Assessment and plan (1) Diabetes Current Visit: Yes Status: Chronic Assessment and plan: FS ACHS Continue basal and sliding scale insulin ADA diet Qualifiers: Diabetes mellitus type: type 2 Diabetes mellitus retirement insulin use: without lottery office manager use Diabetes mellitus complication status: without complication Qualified Code(s): E11.9 - Type 2 diabetes mellitus without complications (2) DVT prophylaxis Current Visit: Yes Status: Acute Assessment and plan: heparin SQ (3) Urinary tract infection Current Visit: Yes Status: Suspected Assessment and plan: Suspected UA was contaminated on arrival Repeat urine culture ordered Zyvox started by admiting team, continue same, 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 Renal is consulted for resumption of routine HD (5) Leukocytosis Current Visit: Yes Status: Acute Assessment and plan: See UTI Possibly also due ot dehydration No C.diff as patient has not had diarrhea since admission Continue to monitor Qualifiers: Leukocytosis type: unspecified Qualified Code(s): D72.829 - Elevated white blood cell count, unspecified (6) Nausea vomiting and diarrhea Current Visit: Yes Status: Acute Assessment and plan: Associated with vague abdominal pain mostly in lower abdomen. CT scan negative for any acute findings may be related to UTI Continue supportive care (7) Hypomagnesemia Current Visit: Yes Status: Acute Assessment and plan: replace po one time (8) Hypertension Current Visit: Yes Status: Chronic Assessment and plan: blood pressure uncontrolled Gievn Norvasc 10mg daily Add hydralazine prn Patint usually receives midodrine on HD days and does not take any medications at home for blood presure Continue to monitor closely Qualifiers: Hypertension type: essential hypertension Qualified Code(s): I10 - Essential (primary) hypertension - Time Spent With Patient Total time spent is greater than 50% in coordination of care (as documented) at patient's floor/unit and/or counseling patient: - Subjective Interval history: 52 M with ESRD , Neurogenic bladder with self cath Being managed for suspected UTI as well as generalized weakness The patient reported having diarrhea prior to hospitalization but hasnt had any since arrival Magnessium is low Urine culture has been ordered He is still complaining of feeling weak and nauseous - Constitutional Vitals: Temp Pulse Resp BP Pulse Ox 99.4 F 70 16 138/66 93 10/08/17 06:28 10/08/17 06:28 10/08/17 06:28 10/08/17 06:28 10/08/17 06:28 General appearance: Present: A&O X 3, pleasant, no acute distress - Head Head exam: Present: atraumatic, normocephalic - Eye Eye exam: Present: PERRL, conjuntiva pink, sclera anicteric Pupils: Present: PERRL - Neck Neck exam general surgery: Present: supple, trachea midline. Absent: lymphadenopathy - Respiratory Respiratory exam: Present: CTAB. Absent: accessory muscle use, rales, rhonchi, wheezes - Cardiovascular Cardiovascular exam: Present: RRR, +S1, +S2. Absent: diastolic murmur, gallop, rubs, systolic murmur - GI/Abdominal GI/Abdominal exam: Present: normal bowel sounds, soft, no peritoneal signs. Absent: distended, tenderness - Additional comments: Gaitan draining clear urine - Extremities Exam Extremities exam: Present: warm, radial pulses palpable and symmetrical. Absent : calf tenderness, cyanotic, pedal edema Additional comments: chronic venous stasis changes - Neurological Exam Neurological exam: Present: alert, CN II-XII intact, oriented X3. Absent: no focal deficits, pronater drift, facial droop, speech deficit - Skin Skin exam: Present: dry, intact Internal Medicine: Result - Labs CBC & Chem 7: 10/08/17 04:00 10/08/17 04:00 Labs: Short CBC 10/08/17 Range/Units 04:00 WBC 17.1 H (4.3-11.1) K/mcL Hgb 12.8 L (12.9-16.9) g/dL Hct 37.4 L (37.5-50.1) % Plt Count 208 (140-400) K/mcL Neutrophils # 14.4 H (1.6-8.9) K/mcL BMP 10/08/17 04:00 Sodium 134 L Potassium 4.2 Chloride 102 Carbon Dioxide 22 L BUN 45 H Creatinine 4.34 H Glucose 178 H Calcium 8.4 L Consult Discharge Plan - Plan Referrals: Miya Aden DO [Primary Care Provider] -
[2017-10-08] MEDS ORDERED: Ondansetron ODT 4 MG TAB.RAPDIS SL ONE (11:43)
[2017-10-08] MEDS: amLODIPine 5 MG TABLET PO SCH (12:10)
[2017-10-08 13:14] LABS: C.difficile Toxin A/B by PCR Not detected (Not detect); Campylobacter by PCR Not detected (Not detect); Enteroaggregative E.coli(EAEC) Not detected (Not detect); Plesiomonas shigelloides PCR Not detected (Not detect); Salmonella PCR Not detected (Not detect); Vibrio PCR Not detected (Not detect); Vibrio cholerae PCR Not detected (Not detect); Yersinia enterocolitica PCR Not detected (Not detect)
[2017-10-08 13:15] LABS: Adenovirus F 40/41 PCR Not detected (Not detect); Astrovirus PCR Not detected (Not detect); Cryptosporidium by PCR Not detected (Not detect); Cyclospora cayetanensis PCR Not detected (Not detect); E. coli O157 by PCR Not detected (Not detect); Entamoeba histolytica PCR Not detected (Not detect); Enteropathogenic E.coli(EPEC) Not detected (Not detect); Enterotoxigenic E.coli (ETEC) Not detected (Not detect); Giardia lamblia PCR Not detected (Not detect); Norovirus GI/GII PCR Not detected (Not detect); Rotavirus A PCR Not detected (Not detect); Sapovirus PCR Not detected (Not detect); Shig/EnteroinvasiveE coli EIEC Not detected (Not detect); Shigalike tox-prod E coli STEC Not detected (Not detect)
[2017-10-08] MEDS: Ondansetron 4 MG/2 ML VIAL IVP PRN (22:37)
[2017-10-08] MEDS: Insulin DETEMIR 100 UNIT/ML X5UNITS SQ SCH (22:38)
[2017-10-09] MEDS: *HR* Heparin 5,000 UNIT/ML VIAL SQ SCH ×3 (05:09→21:03)
[2017-10-09] MEDS: Ondansetron 4 MG/2 ML VIAL IVP PRN (05:10)
[2017-10-09 05:29] LABS: Basophils % 0.2 %; Eosinophils % 0.2 %; Hematocrit 33.3 % (37.5-50.1); Hemoglobin 11.3 g/dL (12.9-16.9); Immature Granulocytes % 0.5 % (0-4); Lymphocytes # 2.3 K/mcL (0.6-4.6); Lymphocytes % 13.6 %; Mean Corpuscular HGB Conc 33.9 g/dL (31.6-35.5); Mean Corpuscular Hemoglobin 29.8 pg (28.0-33.3); Mean Corpuscular Volume 87.9 fL (83.0-100.0); Mean Platelet Volume 9.8 fL (9.4-12.4); Monocytes # 1.3 K/mcL (0.0-1.3); Monocytes % 7.6 %; Neutrophils # 13.2 K/mcL (1.6-8.9); Platelet Count 224 K/mcL (140-400); Red Blood Count 3.79 M/mcL (4.19-5.50); Red Cell Distribution Width 13.1 % (11.5-14.5); Segmented Neutrophils % 77.9 %
[2017-10-09 05:37] LABS: Potassium 3.7 mEq/L (3.5-5.1)
[2017-10-09] MEDS ORDERED: 0.9 % Sodium Chloride 250 ML IVC PRN (07:23)
[2017-10-09] MEDS ORDERED: *HR* Heparin 10,000 UNIT/10 ML VIAL IV PRN (07:23)
[2017-10-09] MEDS: amLODIPine 5 MG TABLET PO SCH (07:36)
[2017-10-09] MEDS: Aspirin Enteric Coated 81 MG Tablet PO SCH (07:40)
[2017-10-09] MEDS: Insulin LISPRO 300 UNITS/3 ML VIAL SQ SCH ×4 (07:40→21:15)
[2017-10-09] MEDS ORDERED: 0.9 % Sodium Chloride 1,000 ML ONE (07:49)
--- NOTE | 2017-10-09 10:48 | Internal Med Progress Note ---
Date of Encounter: 10/09/17 Time of Encounter: 09:55 - Assessment and plan (1) Diabetes Current Visit: Yes Status: Chronic Assessment and plan: FS ACHS Continue basal and sliding scale insulin ADA diet Qualifiers: Diabetes mellitus type: type 2 Diabetes mellitus usp insulin use: without composition worker use Diabetes mellitus complication status: without complication Qualified Code(s): E11.9 - Type 2 diabetes mellitus without complications (2) DVT prophylaxis Current Visit: Yes Status: Acute Assessment and plan: heparin SQ (3) Urinary tract infection Current Visit: Yes Status: Suspected Assessment and plan: Suspected Patient with prior VRE UA was contaminated on arrival Repeat urine culture preliminary negative Zyvox started by admitting team, continue same-day 2, 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 Renal is consulted for resumption of routine HD (5) Leukocytosis Current Visit: Yes Status: Acute Assessment and plan: See UTI No c.diff Patient possibly has viral syndrome, follow final cultures continue to monitor Qualifiers: Leukocytosis type: unspecified Qualified Code(s): D72.829 - Elevated white blood cell count, unspecified (6) Nausea vomiting and diarrhea Current Visit: Yes Status: Acute Assessment and plan: Associated with vague abdominal pain mostly in lower abdomen. CT scan negative for any acute findings may be related to UTI Add loperamide prn diarrhea GI panel is negative Continue to monitor (7) Hypomagnesemia Current Visit: Yes Status: Resolved Assessment and plan: replaced po (8) Hypertension Current Visit: Yes Status: Chronic Assessment and plan: blood pressure was uncontrolled 10/09 now controlled Patient usually receives midodrine on HD days and does not take any medications at home for blood pressure Continue to monitor closely Qualifiers: Hypertension type: essential hypertension Qualified Code(s): I10 - Essential (primary) hypertension - Time Spent With Patient Total time spent is greater than 50% in coordination of care (as documented) at patient's floor/unit and/or counseling patient: - Subjective Interval history: 52 M with ESRD , Neurogenic bladder with self cath Being managed for suspected UTI as well as generalized weakness He had diarrhea prior to presentation, but did not have any till overnight when he is said to have had up to 4-5 episodes GI panel is negative He had one episode of fever 100.7 10/08 Leukocytosis is persistent but stable Urine culture resulted as preliminary, no growth - Constitutional Vitals: Temp Pulse Resp BP Pulse Ox 98.2 F 73 18 94/61 94 10/09/17 07:44 10/09/17 07:44 10/09/17 07:44 10/09/17 07:44 10/09/17 07:44 General appearance: Present: A&O X 3, pleasant, no acute distress - Head Head exam: Present: atraumatic - Eye Eye exam: Present: PERRL, conjuntiva pink, sclera anicteric Pupils: Present: PERRL - Neck Neck exam general surgery: Present: supple, trachea midline. Absent: lymphadenopathy - Respiratory Respiratory exam: Present: CTAB. Absent: accessory muscle use, rales, rhonchi, wheezes - Cardiovascular Cardiovascular exam: Present: RRR, +S1, +S2. Absent: diastolic murmur, gallop, rubs, systolic murmur - Additional comments: Gaitan draining clear urine - Extremities Exam Additional comments: chronic venous stasis changes - Neurological Exam Neurological exam: Present: alert, CN II-XII intact, oriented X3, no focal deficits. Absent: pronater drift, facial droop, speech deficit - Skin Skin exam: Present: dry, intact Internal Medicine: Result - Labs CBC & Chem 7: 10/09/17 04:49 10/09/17 04:49 Labs: Short CBC 10/09/17 Range/Units 04:49 WBC 16.9 H (4.3-11.1) K/mcL Hgb 11.3 L D (12.9-16.9) g/dL Hct 33.3 L (37.5-50.1) % Plt Count 224 (140-400) K/mcL Neutrophils # 13.2 H (1.6-8.9) K/mcL BMP 10/09/17 04:49 Sodium 133 L Potassium 3.7 Chloride 102 Carbon Dioxide 21 L BUN 44 H Creatinine 4.99 H Glucose 177 H Calcium 8.0 L Consult Discharge Plan - Plan Referrals: Miya Aden DO [Primary Care Provider] -
--- NOTE | 2017-10-09 14:13 | Nephrology Consult Note ---
Date of Encounter: 10/09/17 Time of Encounter: 12:00 Assessment and Plan (1) ESRD (end stage renal disease) Current Visit: Yes Status: Acute Continue HD with UF as tolerated Lytes stable renal diet advised (2) Urinary tract infection Current Visit: Yes Status: Suspected Abx per primary team Qualifiers: Urinary tract infection type: site unspecified Hematuria presence: without hematuria Qualified Code(s): N39.0 - Urinary tract infection, site not specified (3) Nausea vomiting and diarrhea Current Visit: Yes Status: Acute Resolved History of Present Illness - Reason for Consult Consult date: 10/09/17 end stage renal disease Requesting physician: Barak Garces - History of Present Illness 52 y o male with PMH of DM, HTN, neurogenic bladder requiring self- catherizations and ESRD on HD admitted for "another infection". He was just discharged with VRE urosepsis and now returns with rising WBC and concerns from pcp of persistent UTI symptoms. He also reports myalgias with nausea, vomiting and diarrhea. 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 prostate surgery. CORNELIUS HD permacath - Social History Smoking Status: Never smoker Smokeless Tobacco Status: No Alcohol use: none Drug use: none - Family History Mother Living Status: Hx Family Cardiac Disorders: Yes (stroke) Hx Family Respiratory Disorders: Yes Hx Family Endocrine Disorder: Yes (DM) Father Living Status: Hx Family Cardiac Disorders: Yes (stent) Hx Family Cancer: Yes Hx Family Endocrine Disorder: Yes (DM) Medications and Allergies Aspirin [Lo-Dose Aspirin EC] 81 mg PO DAILY 07/30/17 [History] Insulin ASPART [NovoLOG] 10 unit SQ QAM AND QHS 07/30/17 [History] Insulin Glargine [Lantus] 35 unit SQ HS 07/30/17 [History] Midodrine [ProAmatine] 5 mg PO MOFR 09/22/17 [History] Ergocalciferol (VITAMIN D2) [Vitamin D2] 50,000 unit PO WE 09/24/17 [History] Insulin ASPART [NovoLOG] 15 unit SQ 1200 09/24/17 [History] Amoxicillin [Amoxil] 500 mg PO DAILY #10 capsule 09/28/17 [Rx] 3 Allergy/AdvReac Type Severity Reaction Status Date / Time No Known Allergies Allergy Verified 09/22/17 09:14 Review of Systems All Systems: reviewed and no additional remarkable complaints except as stated ( 10 systems reviewed and noted in HPI) Exam - Vital Signs Vital signs: Initial Vital Signs Temp Pulse Resp BP Pulse Ox 99.0 F 86 18 155/80 95 10/07/17 11:49 10/07/17 11:49 10/07/17 11:49 10/07/17 11:49 10/07/17 11:49 Vital Signs - Last 8 Hours Temp Pulse Resp BP Pulse Ox 10/09/17 07:44 98.2 F 73 18 94/61 94 Intake and Output 10/08/17 10/09/17 10/09/17 23:59 07:59 15:59 Intake Total 300 / 300 0 / 0 480 / 480 Output Total 240 / 240 550 / 550 Balance 60 / 60 0 / 0 -70 / -70 Intake: IV Fluids 300 / 300 Zyvox Premix 600mg/300mL 600 mg 300 / 300 In 300 ml @ 150 mls/hr IVPB Q12HR [facility] Rx#:[id number] Oral 0 / 0 0 / 0 480 / 480 Output: Catheter 240 / 240 550 / 550 Other: Meal Breakfast Percent of Meal Consumed 15% 50% Stool Size Moderate Stool Consistency loose liquid Stool Color Brown # Bowel Movements 3 Weight 106.1 kg Blood Glucose* 238 199 128 Patient Weight 10/09/17 23:59 Weight 106.1 kg - General Appearance General appearance: chronically ill EENT: ATNC, mucous membranes moist Neck: no JVD, supple Respiratory: clear Cardiology: no edema, normal S1, normal S2 - Dialysis Access Dialysis Vascular Access: Venous Catheter Gastrointestinal: no tenderness, no guarding, obese Integumentary: warm and dry, hyperpigmentation (LE bilat) Musculoskeletal: no deformities Psychiatric: mood/affect appropriate, cooperative Results - Lab Results 10/10/17 05:10 10/10/17 05:10 Most recent lab results Calcium 8.0 mg/dL (8.6-10.3) L 10/09/17 04:49 Magnesium 1.5 mg/dL (1.6-2.6) L 10/08/17 04:00 Consult Discharge Plan - Plan Referrals: Miya Aden DO [Primary Care Provider] -
[2017-10-09] MEDS: Insulin DETEMIR 100 UNIT/ML X5UNITS SQ SCH (21:16)
[2017-10-10] MEDS: Ondansetron 4 MG/2 ML VIAL IVP PRN (05:18)
[2017-10-10] MEDS: *HR* Heparin 5,000 UNIT/ML VIAL SQ SCH (05:18)
[2017-10-10 06:01] LABS: Basophils % 0.4 %; Eosinophils # 0.2 K/mcL (0.0-0.6); Eosinophils % 1.6 %; Hematocrit 34.2 % (37.5-50.1); Hemoglobin 11.6 g/dL (12.9-16.9); Immature Granulocytes % 0.4 % (0-4); Lymphocytes # 1.6 K/mcL (0.6-4.6); Lymphocytes % 16.4 %; Mean Corpuscular HGB Conc 33.9 g/dL (31.6-35.5); Mean Corpuscular Hemoglobin 30.1 pg (28.0-33.3); Mean Corpuscular Volume 88.8 fL (83.0-100.0); Mean Platelet Volume 9.7 fL (9.4-12.4); Monocytes % 10.1 %; Neutrophils # 6.9 K/mcL (1.6-8.9); Platelet Count 260 K/mcL (140-400); Red Blood Count 3.85 M/mcL (4.19-5.50); Red Cell Distribution Width 12.9 % (11.5-14.5); Segmented Neutrophils % 71.1 %
[2017-10-10 06:20] LABS: Calcium 8.2 mg/dL (8.6-10.3); Magnesium 1.8 mg/dL (1.6-2.6)
[2017-10-10] MEDS: Insulin LISPRO 300 UNITS/3 ML VIAL SQ SCH ×2 (07:35→11:00)
[2017-10-10] MEDS: Aspirin Enteric Coated 81 MG Tablet PO SCH (08:11)
[2017-10-10] MEDS: amLODIPine 5 MG TABLET PO SCH (08:11)
--- NOTE | 2017-10-10 10:15 | Nephrology Progress Note ---
Date of Encounter: 10/10/17 Time of Encounter: 10:00 - Assessment and Plan (1) ESRD (end stage renal disease) Current Visit: Yes Status: Acute s/p HD yesterday with UF kadi tolerated Lytes stable next Hd for thursday here or outpatient if discharged (2) Urinary tract infection Current Visit: Yes Status: Suspected Continue abx per primary team with linezolid Qualifiers: Urinary tract infection type: site unspecified Hematuria presence: without hematuria Qualified Code(s): N39.0 - Urinary tract infection, site not specified (3) Nausea vomiting and diarrhea Current Visit: Yes Status: Resolved resolved Subjective Interval history: Pt seen and examined feels better overall. No N/V/D Objective - Vital Signs Vital signs: Vital Signs Temp Pulse Resp BP Pulse Ox 10/10/17 07:21 97.9 F 65 16 115/67 94 10/10/17 04:45 98.5 F 70 16 127/76 97 10/10/17 00:59 98.7 F 71 16 113/72 97 10/09/17 19:40 98.9 F 80 16 115/70 92 10/09/17 17:14 94 10/09/17 15:33 98.2 F 92 18 142/90 89 10/09/17 14:45 97.7 F 18 158/78 10/09/17 14:30 141/67 Intake and Output 10/09/17 10/10/17 10/10/17 23:59 07:59 15:59 Intake Total 360 / 360 0 / 0 0 / 0 Output Total 250 / 250 300 / 300 Balance 110 / 110 0 / 0 -300 / -300 Intake: IV Fluids 300 / 300 Zyvox Premix 600mg/300mL 600 mg 300 / 300 In 300 ml @ 150 mls/hr IVPB Q12HR [facility] Rx#:[id number] Oral 60 / 60 0 / 0 0 / 0 Output: Catheter 250 / 250 300 / 300 Other: Meal Breakfast Percent of Meal Consumed 0% Weight 103.7 kg Blood Glucose* 271 117 Patient Weight 10/10/17 23:59 Weight 103.7 kg - General Appearance General appearance: Present: chronically ill (NAD) EENT: Present: ATNC, mucous membranes moist Neck: Present: no JVD, supple Respiratory: Present: clear Cardiology: Present: no edema, normal S1, normal S2 Dialysis Vascular Access: Venous Catheter Gastrointestinal: Present: no tenderness, no guarding, obese Integumentary: Present: warm and dry, hyperpigmentation Neurologic: Present: no focal deficit Musculoskeletal: Present: no deformities Psychiatric: Present: mood/affect appropriate, cooperative - Lab 10/10/17 05:10 10/10/17 05:10 Most recent lab results Calcium 8.2 mg/dL (8.6-10.3) L 10/10/17 05:10 Magnesium 1.8 mg/dL (1.6-2.6) 10/10/17 05:10 Consult Discharge Plan - Plan Instructions: Amlodipine (By mouth), Urinary Tract Infection in Men (DC), End- Stage Kidney Disease (DC) Referrals: Miya Aden DO [Primary Care Provider] - Prescriptions: amLODIPine [Norvasc] 10 mg PO TUTHSA #30 tablet
--- NOTE | 2017-10-10 10:18 | Physician Discharge Referral ---
Home Health/Hosp Referral Info Transfer to: Home Health Attending Provider: Barak Garces Provider in Charge Post Discharge: PCP - Diagnosis (1) Diabetes Priority: Secondary Status: Chronic (2) DVT prophylaxis Priority: Primary Status: Acute (3) Urinary tract infection Priority: Primary Status: Suspected (4) ESRD (end stage renal disease) on dialysis Priority: Secondary Status: Chronic (5) Leukocytosis Priority: Primary Status: Resolved (6) Nausea vomiting and diarrhea Priority: Primary Status: Resolved (7) Hypomagnesemia Priority: Primary Status: Resolved (8) Hypertension Priority: Secondary Status: Chronic - Respiratory Orders Smoking Cessation: Smoking cessation has been advised. For more information, call the [place] Tobacco Quit Line at 9-020-BQMANOW. - Diet/Nutrition Diet/Nutrition Orders: Renal - Activity Activity Orders: Up ad olivia - Services Needed Following services are medically necessary services: Nursing, Home Health Aide, Physical Therapy - Transfer Medications Home Medications: Aspirin [Lo-Dose Aspirin EC] 81 mg PO DAILY 07/30/17 [History] Insulin ASPART [NovoLOG] 10 unit SQ QAM AND QHS 07/30/17 [History] Insulin Glargine [Lantus] 35 unit SQ HS 07/30/17 [History] Midodrine [ProAmatine] 5 mg PO MOFR 09/22/17 [History] Ergocalciferol (VITAMIN D2) [Vitamin D2] 50,000 unit PO WE 09/24/17 [History] Insulin ASPART [NovoLOG] 15 unit SQ 1200 09/24/17 [History] Amoxicillin [Amoxil] 500 mg PO DAILY #10 capsule 09/28/17 [Rx] Allergies/Adverse Reactions: 3 Allergy/AdvReac Type Severity Reaction Status Date / Time No Known Allergies Allergy Verified 09/22/17 09:14 Certification: Further, I certify that my clinical findings support that this patient is homebound (i.e. absences from home require considerable and taxing effort and are for medical reasons or jainism services or infrequently or short duration when for other reasons) because: Homebound Reason: Patient requires assistance of a person or device to safely leave home Attestation: My signature below is to certify that this patient is under my care and that I, or nurse practitioner, or a physician's audiology assistant working with me, has a face-to -face encounter with this patient.
--- NOTE | 2017-10-10 10:22 | Discharge Summary ---
- NOTES TO OUTPATIENT PROVIDER Notes to Outpatient Provider: 52 M with PMH of ESRD, Neurogenic bladder , presented with gastroenteritis, and suprapubic discomfort, he had been treated by his PCP for UTI prior to presentation. UA done here was dirty, with no growth on culture. GI panel and stool testing was negative for any bacteria or viruses. The patient was started on Zyvox empirically due to his prior cultures. He is discharged on 4 more days to complete treatment. urine culture is negative no growth till date. Patient's blood pressure was uncontrolled and he was started on Norvasc for nonHD days. Orders not resulted at time of discharge: Pending orders 10/11/17 04:00 Chem 7 [Basic Metabolic Panel] AM 0400 Complete Blood Count [HEME] AM 0400 Date of Encounter: 10/10/17 Time of Encounter: 10:19 - Discharge Diagnosis (1) Diabetes Priority: Secondary Status: Chronic Qualifiers: Diabetes mellitus type: type 2 Diabetes mellitus senior care insulin use: without oil heaterman use Diabetes mellitus complication status: without complication Qualified Code(s): E11.9 - Type 2 diabetes mellitus without complications (2) DVT prophylaxis Priority: Primary Status: Acute (3) Urinary tract infection Priority: Primary Status: Suspected Qualifiers: Urinary tract infection type: site unspecified Hematuria presence: without hematuria Qualified Code(s): N39.0 - Urinary tract infection, site not specified (4) ESRD (end stage renal disease) on dialysis Priority: Secondary Status: Chronic (5) Leukocytosis Priority: Primary Status: Resolved Qualifiers: Leukocytosis type: unspecified Qualified Code(s): D72.829 - Elevated white blood cell count, unspecified (6) Nausea vomiting and diarrhea Priority: Primary Status: Resolved (7) Hypomagnesemia Priority: Primary Status: Resolved (8) Hypertension Priority: Secondary Status: Chronic Qualifiers: Hypertension type: essential hypertension Qualified Code(s): I10 - Essential (primary) hypertension Hospital course: Mr. Hernandez is a 52 year old male with history of HTN,ESRD on HD, DM, neurogenic bladder requiring intermittent self caths, anemia of chronic disease who was sent by PCP due to concerns for failed outpatient oral abx for UTI. Patient was discharged from this facility 09/28 for VRE UTI on oral amoxicillin. At the time during hospitalization, the patient was on Zyvox IV. WBC at d/c was 7.2, on presentation, he has new leukocytosis of 16.7. UA on arrival showed 15-30 WBC. In the ED, the patient was hemodynamically stable and received IV ampicillin for suspected UTI. Tmax was 99.0. He started having nausea and vomiting. He says he also had constant watery diarrhea all day yesterday and into this morning. He has not tolerated PO. He went to see his PCP today as a follow up from the previous hospitalization and was sent here for evaluation The patient remained hemodynamically stable and had one episode of diarrhea while in-patient, stool work up was negative. He has since received loperamide and diarrhea resolved. His leukocytosis also resolved. Urine culture is no growth to rober. The patient was seen and evaluated this morning and repotrs nausea, vomiting, diarrhea has resolved. He was placed on linezolid on admission for suspicion of failure of out-patient therapy, it is difficult to say if his leukocytosis and symptoms resolved due to the antibiotics, or due to a possible enteritis. I have called in 4 more days of Zyvox (to complete 7 days ) to his pharmacy, his co-pay is 0 USD. Patient is educated to follow up with PCP and represent to the ER if fever recurs. Verbalized understanding of plan of care. Discharge discussed with: patient, nurse - Time Spent with Patient Total time spent providing and/or coordinating discharge services: Greater than 30 minutes - Discharge Medications Prescriptions: amLODIPine [Norvasc] 10 mg PO TUTHSA #30 tablet Home Medications: Aspirin [Lo-Dose Aspirin EC] 81 mg PO DAILY 07/30/17 [History] Insulin ASPART [NovoLOG] 10 unit SQ QAM AND QHS 07/30/17 [History] Insulin Glargine [Lantus] 35 unit SQ HS 07/30/17 [History] Midodrine [ProAmatine] 5 mg PO MOFR 09/22/17 [History] Ergocalciferol (VITAMIN D2) [Vitamin D2] 50,000 unit PO WE 09/24/17 [History] Insulin ASPART [NovoLOG] 15 unit SQ 1200 09/24/17 [History] amLODIPine [Norvasc] 10 mg PO TUTHSA #30 tablet 10/10/17 [Rx] Allergies/Adverse Reactions: 3 Allergy/AdvReac Type Severity Reaction Status Date / Time No Known Allergies Allergy Verified 09/22/17 09:14 Date of admission: 10/09/17 14:28 Primary care physician: Jacobo Booker Discharging clinician: Barak Garces Anticipated date of discharge: 10/10/17 - Constitutional Vitals: Temp Pulse Resp BP Pulse Ox 97.9 F 65 16 115/67 94 10/10/17 07:21 10/10/17 07:21 10/10/17 07:21 10/10/17 07:21 10/10/17 07:21 General appearance: Present: A&O X 3, pleasant, no acute distress - Head Head exam: Present: atraumatic, normocephalic - Eye Eye exam: Present: PERRL, conjuntiva pink, sclera anicteric Pupils: Present: PERRL - Neck Neck exam general surgery: Present: supple, trachea midline. Absent: lymphadenopathy - Respiratory Respiratory exam: Present: CTAB. Absent: accessory muscle use, rales, rhonchi, wheezes - Cardiovascular Cardiovascular exam: Present: RRR, +S1, +S2. Absent: diastolic murmur, gallop, rubs, systolic murmur - GI/Abdominal GI/Abdominal exam: Present: normal bowel sounds, soft, no peritoneal signs. Absent: distended, tenderness - Extremities Exam Extremities exam: Present: warm, radial pulses palpable and symmetrical. Absent : calf tenderness, cyanotic, pedal edema - Neurological Exam Neurological exam: Present: alert, CN II-XII intact, oriented X3, no focal deficits. Absent: pronater drift, facial droop, speech deficit - Skin Skin exam: Present: dry, intact - Patient Status Disposition: Home Health Service Condition: Good Functional capacity at discharge: uses cane/walker Overall status at discharge: patient is progressing back to baseline - Discharge Instructions Follow Up With: Miya Aden DO [Primary Care Provider] - - Diet and Activity Activity: resume usual activities as tolerated Diet: diabetic diet, low fat, low cholesterol, low salt diet, other (renal)
[2017-10-10 10:56] VITALS: BP 113/68
== END 2017-10-10 12:13 | disposition home health service (06) | DRG 463 ==
LOC: EMEROO 11:45 → 2ANU 11:45 → SUATTDRO 14:27 → 2ANU 15:28
PROVIDERS: ADMIT Internal Medicine; ATTEND Internal Medicine

== ENCOUNTER 2018-02-01 12:10 | Observation (INO) ==
--- NOTE | 2018-02-01 12:29 | Emergency Department Note ---
Disposition Clinical Impression: Seizure-like activity, Hyperkalemia, ESRD (end stage renal disease) on dialysis Disposition: Admitted As Inpatient Condition: Good Referrals: NONE,PCP [Primary Care Provider] - Forms: ED Satisfaction Letter Seizure HPI - General Chief Complaint: ED Seizure Stated Complaint: seizures Time Seen by Provider: 02/01/18 12:13 Source: EMS Mode of arrival: EMS Limitations: no limitations Nursing Notes Reviewed: Yes Vital Signs Reviewed: Yes - History of Present Illness HPI Narrative: 52-year-old male history of end-stage renal disease secondary to diabetes currently on dialysis who presents to the ER from dialysis due to concern for seizure-like activity. Report from their is that the patient was roughly 30 minutes into dialysis whenever he had generalized shaking of his arms and legs. The patient states that he felt like he was going to pass out and felt really short of breath. It stopped without any intervention. They state that he was confused for just a few minutes afterwards but then was immediately back to [facility]. Reports once before he has had seizure-like activity 3 years ago when he was admitted secondary to an infection. Reports he has felt unwell for the entire week. No energy. Denies any chest pain, abdominal pain. No fevers or cough. No other complaints. Pt Subjective Complaint: possible seizure Onset (ago): [employer] Description of Episode: tonic-clonic movement -: second(s) Witnessed: yes - by other Associated trauma secondary to event: No Place: other Possible Precipitating Event: none Associated symptoms: Denies: chest pain, cough, fever/chills, shortness of breath Treatments prior to arrival: none - Related Data Home Medications Medication Instructions Recorded Confirmed Aspirin [Lo-Dose Aspirin EC] 81 mg PO DAILY 07/30/17 10/22/17 Insulin ASPART [NovoLOG] 10 unit SQ QAM AND QHS 07/30/17 10/22/17 Insulin Glargine [Lantus] 35 unit SQ HS 07/30/17 10/22/17 Midodrine [ProAmatine] 5 mg PO MOFR 09/22/17 10/22/17 Ergocalciferol (VITAMIN D2) 50,000 unit PO WE 09/24/17 10/22/17 [Vitamin D2] Insulin ASPART [NovoLOG] 15 unit SQ 1200 09/24/17 10/22/17 Previous Rx's Medication Instructions Recorded amLODIPine [Norvasc] 10 mg PO TUTHSA #30 tablet 10/10/17 Clopidogrel [Plavix] 75 mg PO DAILY #30 tablet 10/29/17 Allergies Allergy/AdvReac Type Severity Reaction Status Date / Time No Known Allergies Allergy Verified 02/01/18 12:20 All systems ED: reviewed and negative except as stated. Constitutional: Denies: fever Cardiovascular: Denies: chest pain Respiratory: Denies: cough, dyspnea Gastrointestinal: Denies: abdominal pain, nausea, vomiting Neurological: Reports: headache. Denies: numbness, paresthesias Past Medical History - Past Medical History Attestation: Yes The following information was validated with the patient. Source: patient Medical history: Reports: diabetes, dialysis, hypertension, renal disease Surgical history: Reports: cholecystectomy Psychiatric history: Reports: anxiety - Social History Smoking Status: Never smoker Smokeless Tobacco Status: No Alcohol use: Reports: none Drug use: Reports: marijuana Physical Exam - General Limitations: no limitations General appearance: alert, in no apparent distress - Head Head exam: atraumatic, normocephalic, normal inspection - Eye Eye exam: Present: normal appearance, PERRL, EOMI - ENT ENT exam: normal exam - Neck Neck exam: Present: normal inspection - Chest Chest inspection: Present: normal inspection, symmetric chest wall rise - Respiratory Respiratory exam: Present: normal lung sounds bilaterally - Cardiovascular Cardiovascular exam: Present: regular rate, normal rhythm, normal heart sounds - Abdominal Exam Abdominal exam: Present: soft, Non-Tender. Absent: tenderness, distention, rigidity - Extremities Exam Extremities exam: Present: normal inspection, full ROM - Expanded Upper Extremity Exam Shoulder exam: Present: normal inspection, full ROM Arm exam: Present: normal inspection, full ROM Elbow exam: Present: normal inspection, full ROM Forearm/Wrist exam: Present: normal inspection, full ROM Hand exam: Present: normal inspection, full ROM - Expanded Lower Extremity Exam Hip/Pelvis exam: Present: normal inspection, full ROM Upper leg exam: Present: normal inspection, full ROM Knee exam: Present: normal inspection, full ROM Lower leg exam: Present: normal inspection, full ROM Ankle exam: Present: normal inspection, full ROM Foot/toe exam: Present: normal inspection, full ROM Neurovascular/Tendon exam: Absent: motor deficit, sensory deficit - Neurological Exam Neurological exam: Present: alert, CN II-XII intact. Absent: motor sensory deficit - Expanded Neurological Exam Speech: Present: fluid speech Cranial nerves: EOM function (II, III, IV, ): Normal, facial sensation (V): Normal, spinal accessory function (XI): Normal, tongue deviation (XII): Normal Cerebellar function: finger to nose: Normal Motor strength - LUE: 5/5 Motor strength - RUE: 5/5 Motor strength - LLE: 5/5 Motor strength - RLE: 5/5 Sensory exam upper extremity: light touch: Normal Sensory exam lower extremity: light touch: Normal Coma Scale Eye Opening: Spontaneous Coma Scale Motor Response: Obeys Commands Coma Scale Verbal Response: Oriented Coma Scale Total: 15 - Skin Skin exam: Present: warm, dry Course Course Narrative: Patient seen and examined. Vital signs reviewed. He has no focal deficits here. Plan for EKG, chest x-ray, head CT, labs with likely admission. - Reevaluation(s) Reevaluation #1: Discussed results of imaging labs with patient. Agreeable with plan. Remains markedly hypertensive here. Clonidine ordered. - Consultations Consultation #1: I spoke with the on-call space technologist Dr. Adan. Discussed the patient's history as well as the fact that he did not finish dialysis today with a potassium of 5.5. Reports that he will likely place him on the list for dialysis this afternoon. Vital Signs Temperature 98.4 F 02/01/18 12:14 Pulse Rate 82 02/01/18 12:14 Respiratory Rate 16 02/01/18 12:14 Blood Pressure 172/80 02/01/18 12:14 O2 Sat by Pulse Oximetry 98 02/01/18 12:14 Temperature 98.4 F 02/01/18 12:14 Pulse Rate 79 02/01/18 14:22 Respiratory Rate 18 02/01/18 14:22 Blood Pressure 200/93 02/01/18 14:22 O2 Sat by Pulse Oximetry 100 02/01/18 14:22 Oxygen Delivery Oxygen Delivery Room Air Seizure - MDM Narrative Medical decision making narrative: 52-year-old male presents due to concern for seizure-like activity during dialysis. He has no focal deficits here. His story does not seem consistent with a seizure with concern for potential underlying arrhythmia. His EKG is sinus without ischemic or arrhythmic findings. Head CT negative. Labs demonstrate chronic findings of hyponatremia as well as a creatinine of 5.8 with a potassium of 5.5 without EKG changes. Case discussed with nephrology. Patient given clonidine for his hypertension. Admitted to the hospitalist service. - Lab Data Lab results reviewed: Yes I reviewed the patient's lab results. Result diagrams: 02/01/18 12:32 02/01/18 12:32 Lab Results 02/01/18 02/01/18 02/01/18 Range/Units 12:20 12:21 12:32 WBC 7.2 (4.3-11.1) K/mcL RBC 3.73 L (4.19-5.50) M/mcL Hgb 11.0 L (12.9-16.9) g/dL Hct 33.3 L (37.5-50.1) % MCV 89.3 (83.0-100.0) fL MCH 29.5 (28.0-33.3) pg MCHC 33.0 (31.6-35.5) g/dL RDW 13.3 (11.5-14.5) % Plt Count 273 (140-400) K/mcL MPV 9.2 L (9.4-12.4) fL Immature Gran % 0.4 (0-4) % Seg Neutrophils % 68.3 % Lymphocytes % 21.3 % Monocytes % 7.9 % Eosinophils % 1.5 % Basophils % 0.6 % Neutrophils # 4.9 (1.6-8.9) K/mcL Lymphocytes # 1.5 (0.6-4.6) K/mcL Monocytes # 0.6 (0.0-1.3) K/mcL Eosinophils # 0.1 (0.0-0.6) K/mcL Basophils # 0.0 (0.0-0.2) K/mcL Sodium (136-145) mEq/L Potassium (3.5-5.1) mEq/L Chloride (98-107) mEq/L Carbon Dioxide (23-29) mEq/L BUN (6-20) mg/dL Creatinine (0.70-1.30) mg/dL Est GFR ( Amer) (> 60) Est GFR (Non-Af Amer) (> 60) BUN/Creatinine Ratio (6-26) Glucose (70-105) mg/dL POC Glucose 318 H 288 H (70-99) mg/dL Calculated Osmolality (280-300) Calcium (8.6-10.3) mg/dL Magnesium (1.6-2.6) mg/dL Troponin I (< 0.04) ng/mL B-Natriuretic Peptide (Less than 100) pg/mL TSH (0.340-5.600) mcIU/mL 02/01/18 02/01/18 Range/Units 12:32 12:32 WBC (4.3-11.1) K/mcL RBC (4.19-5.50) M/mcL Hgb (12.9-16.9) g/dL Hct (37.5-50.1) % MCV (83.0-100.0) fL MCH (28.0-33.3) pg MCHC (31.6-35.5) g/dL RDW (11.5-14.5) % Plt Count (140-400) K/mcL MPV (9.4-12.4) fL Immature Gran % (0-4) % Seg Neutrophils % % Lymphocytes % % Monocytes % % Eosinophils % % Basophils % % Neutrophils # (1.6-8.9) K/mcL Lymphocytes # (0.6-4.6) K/mcL Monocytes # (0.0-1.3) K/mcL Eosinophils # (0.0-0.6) K/mcL Basophils # (0.0-0.2) K/mcL Sodium 134 L (136-145) mEq/L Potassium 5.5 H (3.5-5.1) mEq/L Chloride 104 (98-107) mEq/L Carbon Dioxide 20 L (23-29) mEq/L BUN 68 H (6-20) mg/dL Creatinine 5.84 H (0.70-1.30) mg/dL Est GFR ( Amer) 12 L (> 60) Est GFR (Non-Af Amer) 10 L (> 60) BUN/Creatinine Ratio 12 (6-26) Glucose 302 H (70-105) mg/dL POC Glucose (70-99) mg/dL Calculated Osmolality 309 H (280-300) Calcium 8.4 L (8.6-10.3) mg/dL Magnesium 1.8 (1.6-2.6) mg/dL Troponin I < 0.03 (< 0.04) ng/mL B-Natriuretic Peptide 200 H (Less than 100) pg/mL TSH 2.748 (0.340-5.600) mcIU/mL - Radiology Data Radiology results reviewed: Yes I reviewed the patient's radiology results. Head CT 02/01/18 12:21 IMPRESSION: No acute intracranial abnormality. Mild parenchymal volume loss. Mild chronic microvascular disease. D/ / Vamshi Chacon MD / Vamshi Chacon MD Interpreting Provider: Vamshi Chacon MD Chest X-Ray 02/01/18 12:27 IMPRESSION: 1. Minimal bibasilar atelectasis. 2. Pulmonary vascular congestion and mild cardiomegaly. D/ / Pietro Gaona MD / Pietro Gaona MD Interpreting Provider: Pietro Gaona MD - EKG Data EKG attestation: Yes I reviewed and interpreted this EKG. EKG results narrative: EKG demonstrates sinus rhythm with PVCs with a rate of 79 beats or minute. Normal axis. Normal intervals. Normal R-wave progression. No gross ST elevations or depressions. No acute ischemic findings. No significant changes from previous EKG dated 12/08/17 S.[email or web address] - [email or web address] Situation: Demographics, MOA Background: Presenting Complaint, Relevant PMH, Meds, & Allergies Assessment: Course and respsone to treatment, Exam Concerns, Patient/Family Expectation, Pertinant Lab Results Recommendation: Barrier(s) to disposition, Recommendation based on pending studies, treatments, or consults (n) S.[email or web address] Report Given to: Dr. Amado Morales Repor Time: 14:29
[2018-02-01 12:53] LABS: Basophils % 0.6 %; Eosinophils # 0.1 K/mcL (0.0-0.6); Eosinophils % 1.5 %; Hematocrit 33.3 % (37.5-50.1); Immature Granulocytes % 0.4 % (0-4); Lymphocytes # 1.5 K/mcL (0.6-4.6); Lymphocytes % 21.3 %; Mean Corpuscular Hemoglobin 29.5 pg (28.0-33.3); Mean Corpuscular Volume 89.3 fL (83.0-100.0); Mean Platelet Volume 9.2 fL (9.4-12.4); Monocytes # 0.6 K/mcL (0.0-1.3); Monocytes % 7.9 %; Neutrophils # 4.9 K/mcL (1.6-8.9); Platelet Count 273 K/mcL (140-400); Red Blood Count 3.73 M/mcL (4.19-5.50); Red Cell Distribution Width 13.3 % (11.5-14.5); Segmented Neutrophils % 68.3 %
--- NOTE | 2018-02-01 12:55 | Emergency Department Note ---
Disposition Clinical Impression: Seizure-like activity, Hyperkalemia, ESRD (end stage renal disease) on dialysis Disposition: Admitted As Inpatient Referrals: NONE,PCP [Primary Care Provider] - Forms: ED Satisfaction Letter General Adult HPI - General Chief complaint: ED Seizure Stated complaint: seizures Time Seen by Provider: 02/01/18 12:13 Source: EMS Mode of arrival: EMS Limitations: no limitations - History of Present Illness Pain Scale: 3 - Related Data Home Medications Medication Instructions Recorded Confirmed Aspirin [Lo-Dose Aspirin EC] 81 mg PO DAILY 07/30/17 10/22/17 Insulin ASPART [NovoLOG] 10 unit SQ QAM AND QHS 07/30/17 10/22/17 Insulin Glargine [Lantus] 35 unit SQ HS 07/30/17 10/22/17 Midodrine [ProAmatine] 5 mg PO MOFR 09/22/17 10/22/17 Ergocalciferol (VITAMIN D2) 50,000 unit PO WE 09/24/17 10/22/17 [Vitamin D2] Insulin ASPART [NovoLOG] 15 unit SQ 1200 09/24/17 10/22/17 Previous Rx's Medication Instructions Recorded amLODIPine [Norvasc] 10 mg PO TUTHSA #30 tablet 10/10/17 Clopidogrel [Plavix] 75 mg PO DAILY #30 tablet 10/29/17 Allergies Allergy/AdvReac Type Severity Reaction Status Date / Time No Known Allergies Allergy Verified 02/01/18 12:20 Constitutional: Denies: fever Cardiovascular: Denies: chest pain Respiratory: Denies: cough, dyspnea Gastrointestinal: Denies: abdominal pain, nausea, vomiting Neurological: Reports: headache. Denies: numbness, paresthesias Past Medical History - Past Medical History Medical history: Reports: diabetes, dialysis, hypertension, renal disease Surgical history: Reports: cholecystectomy Psychiatric history: Reports: anxiety - Social History Smoking Status: Never smoker Smokeless Tobacco Status: No Alcohol use: Reports: none Drug use: Reports: marijuana Physical Exam - General Limitations: no limitations General appearance: alert, in no apparent distress Course Vital Signs Temperature 98.4 F 02/01/18 12:14 Pulse Rate 82 02/01/18 12:14 Respiratory Rate 16 02/01/18 12:14 Blood Pressure 172/80 02/01/18 12:14 O2 Sat by Pulse Oximetry 98 02/01/18 12:14 Temperature 98.4 F 02/01/18 12:14 Pulse Rate 80 02/01/18 13:12 Respiratory Rate 15 02/01/18 13:12 Blood Pressure 163/93 02/01/18 13:12 O2 Sat by Pulse Oximetry 100 02/01/18 13:12 Oxygen Delivery Oxygen Delivery Room Air Medical Decision Making - Lab Data Result diagrams: 02/01/18 12:32 02/01/18 12:32 Lab Results 02/01/18 02/01/18 02/01/18 Range/Units 12:20 12:21 12:32 WBC 7.2 (4.3-11.1) K/mcL RBC 3.73 L (4.19-5.50) M/mcL Hgb 11.0 L (12.9-16.9) g/dL Hct 33.3 L (37.5-50.1) % MCV 89.3 (83.0-100.0) fL MCH 29.5 (28.0-33.3) pg MCHC 33.0 (31.6-35.5) g/dL RDW 13.3 (11.5-14.5) % Plt Count 273 (140-400) K/mcL MPV 9.2 L (9.4-12.4) fL Immature Gran % 0.4 (0-4) % Seg Neutrophils % 68.3 % Lymphocytes % 21.3 % Monocytes % 7.9 % Eosinophils % 1.5 % Basophils % 0.6 % Neutrophils # 4.9 (1.6-8.9) K/mcL Lymphocytes # 1.5 (0.6-4.6) K/mcL Monocytes # 0.6 (0.0-1.3) K/mcL Eosinophils # 0.1 (0.0-0.6) K/mcL Basophils # 0.0 (0.0-0.2) K/mcL Sodium (136-145) mEq/L Potassium (3.5-5.1) mEq/L Chloride (98-107) mEq/L Carbon Dioxide (23-29) mEq/L BUN (6-20) mg/dL Creatinine (0.70-1.30) mg/dL Est GFR ( Amer) (> 60) Est GFR (Non-Af Amer) (> 60) BUN/Creatinine Ratio (6-26) Glucose (70-105) mg/dL POC Glucose 318 H 288 H (70-99) mg/dL Calculated Osmolality (280-300) Calcium (8.6-10.3) mg/dL Magnesium (1.6-2.6) mg/dL Troponin I (< 0.04) ng/mL B-Natriuretic Peptide (Less than 100) pg/mL TSH (0.340-5.600) mcIU/mL 02/01/18 02/01/18 Range/Units 12:32 12:32 WBC (4.3-11.1) K/mcL RBC (4.19-5.50) M/mcL Hgb (12.9-16.9) g/dL Hct (37.5-50.1) % MCV (83.0-100.0) fL MCH (28.0-33.3) pg MCHC (31.6-35.5) g/dL RDW (11.5-14.5) % Plt Count (140-400) K/mcL MPV (9.4-12.4) fL Immature Gran % (0-4) % Seg Neutrophils % % Lymphocytes % % Monocytes % % Eosinophils % % Basophils % % Neutrophils # (1.6-8.9) K/mcL Lymphocytes # (0.6-4.6) K/mcL Monocytes # (0.0-1.3) K/mcL Eosinophils # (0.0-0.6) K/mcL Basophils # (0.0-0.2) K/mcL Sodium 134 L (136-145) mEq/L Potassium 5.5 H (3.5-5.1) mEq/L Chloride 104 (98-107) mEq/L Carbon Dioxide 20 L (23-29) mEq/L BUN 68 H (6-20) mg/dL Creatinine 5.84 H (0.70-1.30) mg/dL Est GFR ( Amer) 12 L (> 60) Est GFR (Non-Af Amer) 10 L (> 60) BUN/Creatinine Ratio 12 (6-26) Glucose 302 H (70-105) mg/dL POC Glucose (70-99) mg/dL Calculated Osmolality 309 H (280-300) Calcium 8.4 L (8.6-10.3) mg/dL Magnesium 1.8 (1.6-2.6) mg/dL Troponin I < 0.03 (< 0.04) ng/mL B-Natriuretic Peptide 200 H (Less than 100) pg/mL TSH 2.748 (0.340-5.600) mcIU/mL Critical Care Time Critical Care Time: No Attestation Statement - Attestation Attestation: I examined this patient and my medical decision-making was reviewed with the Resident Physician. I agree with the documented findings, disposition and treat ment plan as described except to the extent set forth below. 52-year-old male presented from dialysis for possible seizure-like activity in which he was having tonic-clonic movements for approximately 20 seconds. States he felt like he was given a pass out just prior to that. He denies any bowel or bladder incontinence. No biting of the tongue. Was not postictal.Documented seizure disorder history. Could have been a cardiac arrhythmia. We will check screening lab work as well as a CT of the head. Anticipate admission for observation from a cardiac standpoint. He did not receive his full round of dialysis this morning. He receives dialysis 3 times a week. He has no other focal complaints at this time other than he states he just has not felt well recently. He was just diagnosed with a prostate infection. He was placed on Bactrim. I am assuming this is a prostate infection more so than a UTI. He does make urine but and a small amount. The rn orthopedic states his blood pressure was in the 200 region during this episode.
[2018-02-01 13:08] LABS: BUN/Creatinine Ratio 12 (6-26); Blood Urea Nitrogen 68 mg/dL (6-20); Calcium 8.4 mg/dL (8.6-10.3); Carbon Dioxide 20 mEq/L (23-29); Chloride 104 mEq/L (98-107); Glucose 302 mg/dL (70-105); Magnesium 1.8 mg/dL (1.6-2.6); Osmolality,Calculated 309 (280-300); Potassium 5.5 mEq/L (3.5-5.1); Sodium 134 mEq/L (136-145); Troponin I < 0.03 ng/mL (< 0.04); eGFR For Non-African Americans 10 (> 60)
[2018-02-01 13:22] LABS: Thyroid Stimulating Hormone 2.748 mcIU/mL (0.340-5.600)
[2018-02-01] MEDS ORDERED: 0.9 % Sodium Chloride 250 ML IVC PRN (14:14)
[2018-02-01] MEDS ORDERED: cloNIDine HCl 0.1 MG TABLET PO ONE (14:27)
[2018-02-01 14:28] LABS: Bilirubin,Urine Negative (Negative); Blood,Urine Trace (Negative); Clarity,Urine Clear (Clear); Color,Urine Yellow (Yellow); Glucose,Urine (UA) 500 mg/dL (Normal); Ketones,Urine Negative (Negative); Leukocyte Esterase,Urine Trace (Negative); Nitrite,Urine Negative (Negative); PH,Urine 7.5 pH Units (5.0-8.0); Protein,Urine >=1000 mg/dL (Neg-Trace); Specific Gravity,Urine 1.024 (1.010-1.025); Urobilinogen,Urine Normal (Normal)
[2018-02-01 14:31] LABS: Bacteria,Urine None Seen per hpf (None-Few); Hyaline Casts,Urine None Seen per lpf (None-Few); Squamous Epithelial Cell,Urine Many per lpf (None-Few); WBC,Urine 15-30 per hpf (0-3)
[2018-02-01 14:43] LABS: VBG Ionized Calcium 0.92 mmol/L (1.15-1.35)
--- NOTE | 2018-02-01 15:13 | Nephrology Consult Note ---
Date of Encounter: 02/01/18 Time of Encounter: 15:00 Assessment and Plan (1) ESRD (end stage renal disease) on dialysis Current Visit: Yes Status: Chronic ESRD on dialysis Thursday, Thursday, Thursday into the patient of Dr. Adan. Today he was transferred by ambulance to the ED from the dialysis clinic after only receiving 30 minutes of dialysis due to seizure like activity and per the patient's request. -The patient reports that he only goes to dialysis on Thursday and Thursday stating that he was told by his mash filter operator to do that. The last time he had dialysis all 3 days was 4 months ago. -He had an AV fistula placed in the left arm on January 14, 2018. Plan: -patient is to complete HD today since he only did 30 minutes thus far -continue to monitor electrolytes (2) Anemia in chronic kidney disease Current Visit: No Status: Chronic Anemia of chronic disease in setting of end-stage renal disease and iron deficiency hemoglobin 11 (at baseline) MCV 89.3 07/04/2017: iron 39, 17% saturation, transferrin 165, ferritin 243 no obvious active bleeding plan: continue to monitor H&H Qualifiers: Chronic kidney disease stage: on chronic dialysis Qualified Code(s): N18.6 - End stage renal disease; D63.1 - Anemia in chronic kidney disease; Z99.2 - Dependence on renal dialysis (3) Hyperkalemia Current Visit: Yes Status: Acute Hyperkalemia in setting of ESRD on dialysis potassium 5.5 -will manage with dialysis today -continue to monitor potassium with BMP (4) Dysuria Current Visit: Yes Status: Acute Patient was diagnosed with a urinary tract infection last Thursday by Dr. Adan based on symptoms and has been taking Bactrim since then. He stated that the dysuria and urinary frequency has not improved. Maybe UTI or prostatits. He has ureteral stent placement history. Urinalysis demonstrating positive leukocyte esterase, protein > 1000 -consider urine culture History of Present Illness - Reason for Consult Consult date: 02/01/18 end stage renal disease, hyperkalemia Requesting physician: Jey Taveras - Chief Complaint Seizure - History of Present Illness Mr. Hernandez the 52-year-old male with a past medical history of ESRD on dialysis, hypertension, diabetes, CAD who presented to [facility] from dialysis center due to "seizure like"activity and per patient's request. Nephrology was consulted due to patient only completing 30 minutes of dialysis and hyperkalemia with potassium of 5.5. Patient reported that while at dialysis he suddenly felt strange, like he was falling asleep for which he stated a nurse started tapping his shoulder and he then came to. Per ED note the patient stated his arms and legs started shaking. After the event the patient denied any tongue biting, confusion, incontinence, chest pain, shortness of breath, palpitations, nausea, vomiting, lightheadedness, abdominal pain. The patient does report that for the past week he has felt "off" with symptoms of increased fatigue and sleeping more often. He admitted to new shortness of breath that is characterized as orthopnea and occasional exertional shortness of breath. He stated that he is currently being treated for urinary tract infection and is taking Bactrim which was prescribed for him last Thursday by Dr. Adan and is still taking it. He still has dysuria and increased urinary frequency which is not improved. He reported that on 01/14/2018 in [place] he had a left antecubital AV fistula placed. The patient is to be getting hemodialysis Thursday, Thursday, Thursday however he stated that he was told by his mash filter operator to only go on Mondays and Fridays. He is not on all 3 days since 4 months ago. He denies drug use, alcohol, cigarettes smoking. Past Med Surg Social Fam HX - Past Medical History Attestation: Yes The following information was validated with the patient. Source: patient Medical history: coronary artery disease, diabetes, dialysis, hypertension, renal disease Additional medical history: Type II Diabetic. 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 prostate surgery. CORNELIUS HD permacath - Social History Smoking Status: Never smoker Smokeless Tobacco Status: No Alcohol use: none Drug use: marijuana - Family History Mother Living Status: Hx Family Cardiac Disorders: Yes (stroke) Hx Family Respiratory Disorders: Yes Hx Family Endocrine Disorder: Yes (DM) Father Living Status: Hx Family Cardiac Disorders: Yes (stent) Hx Family Cancer: Yes Hx Family Endocrine Disorder: Yes (DM) Medications and Allergies Aspirin [Lo-Dose Aspirin EC] 81 mg PO DAILY 07/30/17 [History] Insulin ASPART [NovoLOG] 10 unit SQ QAM AND QHS 07/30/17 [History] Ergocalciferol (VITAMIN D2) [Vitamin D2] 50,000 unit PO WE 09/24/17 [History] Insulin ASPART [NovoLOG] 15 unit SQ 1200 09/24/17 [History] Clopidogrel [Plavix] 75 mg PO DAILY #30 tablet 10/29/17 [Rx] Insulin Glargine,Hum.rec.anlog [Basaglar Kwikpen U-100] 60 unit SQ DAILY 02/01/18 [History] Magnesium Oxide [Magnesium] 400 mg PO DAILY 02/01/18 [History] Allergy/AdvReac Type Severity Reaction Status Date / Time No Known Allergies Allergy Verified 02/01/18 12:20 Review of Systems Constitutional: fatigue, lethargy, no anorexia, no chills, no fever(s), no he adache(s) Nose, mouth and throat: no abnormal hearing, no dizziness Cardiovascular: dyspnea on exertion, orthopnea, no chest pain, no edema, no palpitations, no pedal edema, no syncope Respiratory: no cough, no dyspnea, no wheezing Gastrointestinal: no abdominal pain, no bloating, no diarrhea, no nausea, no vomiting Musculoskeletal: arthralgias Integumentary: bleeding lesions (bilateral lower extremities), dry skin, skin ulcer Neurological: no dizziness, no syncope, no vertigo Endocrine: fatigue Exam - Vital Signs Vital signs: Initial Vital Signs Temp Pulse Resp BP Pulse Ox 98.4 F 82 16 172/80 98 02/01/18 12:14 02/01/18 12:14 02/01/18 12:14 02/01/18 12:14 02/01/18 12:14 Vital Signs - Last 8 Hours Temp Pulse Resp BP Pulse Ox 02/01/18 14:46 152/75 02/01/18 14:22 79 18 200/93 100 02/01/18 13:12 80 15 163/93 100 02/01/18 12:14 98.4 F 82 16 172/80 98 Intake and Output 01/31/18 02/01/18 02/01/18 23:59 07:59 15:59 Other: Weight 104.78 kg Blood Glucose* 218 Patient Weight 02/01/18 23:59 Weight 104.78 kg - General Appearance General appearance: well-developed, well-nourished, appears started age EENT: mucous membranes dry Neck: no JVD, supple Respiratory: clear Cardiology: no murmurs, no rub, no gallops, no edema, regular rate, regular rhythm, normal S1, normal S2 - Dialysis Access Dialysis Vascular Access: Arteriovenous Fistula (Left) thrill: Yes bruit: Yes Gastrointestinal: normoactive bowel sounds, no tenderness, no guarding, no masses Neurologic: no focal deficit, no asterixis, alert and oriented x3, CN 3-12 intact Musculoskeletal: no deformities, no erythema (Bilateral lower extremities, dry skin, healing lesions) Psychiatric: mood/affect appropriate, cooperative Results - Lab Results 02/01/18 12:32 02/01/18 12:32 Most recent lab results Calcium 8.4 mg/dL (8.6-10.3) L 02/01/18 12:32 Magnesium 1.8 mg/dL (1.6-2.6) 02/01/18 12:32 Consult Discharge Plan - Plan Referrals: NONE,PCP [Primary Care Provider] -
[2018-02-01] MEDS ORDERED: Naloxone 0.4 MG/ML INJ IVP PRN (15:17)
[2018-02-01] MEDS ORDERED: D5% in Water 1,000 ML IVC PRN (15:19)
[2018-02-01] MEDS ORDERED: Dextrose Gel 15 GM/37.5 ML TUBE PO PRN ×2 (15:19)
[2018-02-01] MEDS ORDERED: *HR* Dextrose 50 % in Water (Syg) 50 ML SYRINGE IVP PRN (15:19)
[2018-02-01] MEDS ORDERED: *HR* Heparin 5,000 UNIT/ML VIAL ONE (15:53)
[2018-02-01 16:03] LABS: Hepatitis B Surface Antigen Nonreactive (Nonreactive)
--- NOTE | 2018-02-01 16:05 | Internal Med History&Physical ---
Date of Encounter: 02/01/18 Time of Encounter: 16:02 Internal Medicine - H&P: HPI Chief complaint: Seizure-like activity Admitted From: Home Plans for Post Hospital Care: Home History of present illness: Mr. Hernandez is a 52-year-old male with medical history of CAD s/p bare metal stent 10/2017, end-stage renal disease on hemodialysis, hypertension, diabetes mellitus, anxiety disorder who presented to the ER with seizure-like activities that occurred during hemodialysis today. The patients states he recalls feeling short of breath prior to the event, he had minimal confusion post-event according to the chart, he denies urinary or bowel incontinence, no tongue biting. He has no focal deficits at the time of evaluation. He stated he has been feeling more somnolent for the past week and generally unwell and at the time of dialysis, he felt like he was about to pass out and he woke up with the Nurse rubbing his sternum and informing him of his seizure-like activity. He denies chest pain, shortness of breath, palpitations, nausea, vomiting, lightheadedness, abdominal pain He reports having felt unwell for the past week without any specific symptoms. He denies fever or chills, recent travel or sick contacts, denies any other symptoms His EKG is sinus without ischemic or arrhythmic findings. Head CT negative. Labs show chronic findings of hyponatremia as well as a creatinine of 5.8 with a potassium of 5.5 without EKG changes. Calcium level, TSH and BNP at baseline. We will place on observation for new seizure like activity, nephrology and neurology have been consulted and called by the ER team Past Med Surg Social Fam HX - Past Medical History Medical history: coronary artery disease, diabetes, dialysis, hypertension, renal disease Additional medical history: Type II Diabetic. 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 prostate surgery. CORNELIUS HD perm acath - Social History Smoking Status: Never smoker Smokeless Tobacco Status: No Alcohol use: none Drug use: marijuana - Family History Mother Living Status: Hx Family Cardiac Disorders: Yes (stroke) Hx Family Respiratory Disorders: Yes Hx Family Endocrine Disorder: Yes (DM) Father Living Status: Hx Family Cardiac Disorders: Yes (stent) Hx Family Cancer: Yes Hx Family Endocrine Disorder: Yes (DM) Internal Medicine - H&P: Meds Aspirin [Lo-Dose Aspirin EC] 81 mg PO DAILY 07/30/17 [History] Insulin ASPART [NovoLOG] 10 unit SQ QAM AND QHS 07/30/17 [History] Ergocalciferol (VITAMIN D2) [Vitamin D2] 50,000 unit PO WE 09/24/17 [History] Insulin ASPART [NovoLOG] 15 unit SQ 1200 09/24/17 [History] Clopidogrel [Plavix] 75 mg PO DAILY #30 tablet 10/29/17 [Rx] Insulin Glargine,Hum.rec.anlog [Basaglar Kwikpen U-100] 60 unit SQ DAILY 02/01/18 [History] Magnesium Oxide [Magnesium] 400 mg PO DAILY 02/01/18 [History] Allergy/AdvReac Type Severity Reaction Status Date / Time No Known Allergies Allergy Verified 02/01/18 12:20 All Systems PM: A 10-system review of systems was performed and is negative for pertinent findings except as documented above in the HPI. - Constitutional Constitutional: malaise - EENT Eyes: no change in vision, no discharge, no pain, no photophobia Ears: no ear discharge, no ear pain, no tinnitus Nose, mouth and throat: no dysphagia, no nasal discharge, no neck pain, no sore throat - Cardiovascular Cardiovascular ROS IM: no chest pain, no diaphoresis, no dyspnea, no lightheadedness, no palpitations, no syncope - Respiratory Respiratory: no cough, no dyspnea, no wheezing, no excessive phlegm production - Gastrointestinal Gastrointestinal: no abdominal pain, no diarrhea, no hematemesis, no hematochezia, no melena, no nausea, no vomiting - Musculoskeletal Musculoskeletal ROS IM: no numbness, no tingling - Integumentary Integumentary IM: rash, skin ulcer - Neurological Neurological ROS: as per HPI - Hematologic/Lymphatic Hematologic/Lymphatic: no easy bruising - Constitutional Vitals: Temp Pulse Resp BP Pulse Ox 98.4 F 79 18 152/75 100 02/01/18 12:14 02/01/18 14:22 02/01/18 14:22 02/01/18 14:46 02/01/18 14:22 General appearance: Present: A&O X 3, pleasant, no acute distress Exam: calm, not in distress - Head Head exam: Present: atraumatic, normocephalic - Eye Eye exam: Present: PERRL, conjuntiva pink, sclera anicteric Pupils: Present: PERRL - Neck Neck exam general surgery: Present: supple, trachea midline. Absent: l ymphadenopathy - Respiratory Respiratory exam: Present: CTAB. Absent: accessory muscle use, rales, rhonchi, wheezes - Cardiovascular Cardiovascular exam: Present: RRR, +S1, +S2. Absent: diastolic murmur, gallop, rubs, systolic murmur - GI/Abdominal GI/Abdominal exam: Present: normal bowel sounds, soft, no peritoneal signs. Absent: distended, tenderness - Extremities Exam Extremities exam: Present: warm, radial pulses palpable and symmetrical. Absent: calf tenderness, cyanotic, pedal edema Additional comments: bilateral [place] ulcers superficial excoriations ++, all dry with no active discharges or weeping No pedal edema - Neurological Exam Neurological exam: Present: alert, CN II-XII intact, oriented X3, no focal deficits. Absent: pronater drift, facial droop, speech deficit - Skin Skin exam: Present: dry, intact Internal Med - H&P Results - Labs CBC & Chem 7: 02/01/18 12:32 02/01/18 12:32 Labs: Short CBC 02/01/18 Range/Units 12:32 WBC 7.2 (4.3-11.1) K/mcL Hgb 11.0 L (12.9-16.9) g/dL Hct 33.3 L (37.5-50.1) % Plt Count 273 (140-400) K/mcL Neutrophils # 4.9 (1.6-8.9) K/mcL BMP 02/01/18 12:32 Sodium 134 L Potassium 5.5 H Chloride 104 Carbon Dioxide 20 L BUN 68 H Creatinine 5.84 H Glucose 302 H Calcium 8.4 L Cardiac Enzymes 02/01/18 Range/Units 12:32 Troponin I < 0.03 (< 0.04) ng/mL Urine 02/01/18 Range/Units 14:12 Urine Color Yellow (Yellow) Urine Clarity Clear (Clear) Urine pH 7.5 (5.0-8.0) pH Units Ur Specific [place] 1.024 (1.010-1.025) Urine Protein >=1000 H (Neg-Trace) mg/dL Urine Glucose (UA) 500 H (Normal) mg/dL - Impressions ITS Impressions Head CT 02/01/18 12:21 IMPRESSION: No acute intracranial abnormality. Mild parenchymal volume loss. Mild chronic microvascular disease. D/ / Vamshi Chacon MD / Vamshi Chacon MD Interpreting Provider: Vamshi Chacon MD Chest X-Ray 02/01/18 12:27 IMPRESSION: 1. Minimal bibasilar atelectasis. 2. Pulmonary vascular congestion and mild cardiomegaly. D/ / Pietro Gaona MD / Pietro Gaona MD Interpreting Provider: Pietro Gaona MD - Assessment and plan (1) Seizure-like activity Current Visit: Yes Status: Acute Assessment and plan: Patient with seizure-like activity during HD Electrolytes WNL, EKG unremarkable, Head CT unremarkable Seizure precautions neurology has been consulted, will await recommendations (2) CAD (coronary artery disease) Current Visit: Yes Status: Chronic Assessment and plan: s/p [facility] with stent 10/2017 Continue ASA, Plavix Not on BB or Lipitor, reasons unknown Qualifiers: Coronary Disease-Associated Artery/Lesion type: [place] artery [place] vs. transplanted heart: [place] heart Associated angina: without angina Qualified Code(s): I25.10 - Atherosclerotic heart disease of [place] coronary artery without angina pectoris (3) Diabetes mellitus Current Visit: Yes Status: Chronic Assessment and plan: Basal, Prandial and Sliding scale insulin FS ACHS ADA diet Continue to monitor Qualifiers: Diabetes mellitus type: type 2 Diabetes mellitus [place] insulin use: with care home use Diabetes mellitus complication status: with hyperglycemia Qualified Code(s): E11.65 - Type 2 diabetes mellitus with hyperglycemia; Z79.4 - penitentiary (current) use of insulin (4) DVT prophylaxis Current Visit: Yes Status: Acute Assessment and plan: SQ heparin (5) Hyperkalemia Current Visit: Yes Status: Acute Assessment and plan: mgt with HD Rpt Chem am (6) Hypertension Current Visit: Yes Status: Chronic Assessment and plan: Not on any meds per chart As at discharge 10/2017 patient was on Norvasc TTH Blood pressure was said to have been very elevated during HD and prior to seizure-like event and on arrival here was 200/93 Blood pressure currently controlled without intervention Resume home meds when confirmed, nephrology following Qualifiers: Hypertension type: essential hypertension Qualified Code(s): I10 - Essential (primary) hypertension (7) Hyponatremia Current Visit: Yes Status: Chronic Assessment and plan: Chronic, baseline Na 133-134 Continue to monitor (8) Urinary tract infection Current Visit: Yes Status: Suspected Assessment and plan: Patient was being treated for UTI as out-patient with [employer], with Bactrim No urine cultures on chart for this suspected UTI prior cultures from 09/24 with VRE sensitive to ampicillin Will send urine culture Start patient on ampicillin po Patient has had multiple Qualifiers: Urinary tract infection type: site unspecified Hematuria presence: without hematuria Qualified Code(s): N39.0 - Urinary tract infection, site not specified - Time Spent With Patient Total time spent is greater than 50% in coordination of care (as documented) at patient's floor/unit and/or counseling patient:
[2018-02-01] MEDS ORDERED: *HR* Heparin 10,000 UNIT/10 ML VIAL IV PRN (17:48)
[2018-02-01] MEDS: *HR* Heparin 5,000 UNIT/ML VIAL SQ SCH (22:17)
[2018-02-01] MEDS: Amoxicillin 250 MG CHEWABLE TABLET PO SCH (22:18)
[2018-02-01] MEDS: Insulin DETEMIR 100 UNIT/ML X5UNITS SQ SCH (22:18)
[2018-02-01] MEDS ORDERED: Acetaminophen 325 MG TABLET PO ONE (22:49)
[2018-02-02] MEDS: Insulin LISPRO 300 UNITS/3 ML VIAL SQ SCH ×10 (04:46→21:56)
[2018-02-02 05:21] LABS: Basophils % 0.6 %; Eosinophils # 0.1 K/mcL (0.0-0.6); Eosinophils % 2.1 %; Hematocrit 32.1 % (37.5-50.1); Hemoglobin 10.7 g/dL (12.9-16.9); Immature Granulocytes % 0.2 % (0-4); Lymphocytes # 1.9 K/mcL (0.6-4.6); Lymphocytes % 29.8 %; Mean Corpuscular HGB Conc 33.3 g/dL (31.6-35.5); Mean Corpuscular Hemoglobin 29.6 pg (28.0-33.3); Mean Corpuscular Volume 88.9 fL (83.0-100.0); Mean Platelet Volume 9.1 fL (9.4-12.4); Monocytes # 0.6 K/mcL (0.0-1.3); Monocytes % 8.7 %; Neutrophils # 3.7 K/mcL (1.6-8.9); Platelet Count 268 K/mcL (140-400); Red Blood Count 3.61 M/mcL (4.19-5.50); Red Cell Distribution Width 13.6 % (11.5-14.5); Segmented Neutrophils % 58.6 %
[2018-02-02 05:35] LABS: Calcium 8.4 mg/dL (8.6-10.3); Potassium 4.8 mEq/L (3.5-5.1)
[2018-02-02] MEDS: *HR* Heparin 5,000 UNIT/ML VIAL SQ SCH ×3 (05:38→21:55)
--- NOTE | 2018-02-02 07:42 | Nephrology Progress Note ---
Addendum entered and electronically signed by Stanley Adan DO 02/08/18 12:22: I have personally performed a face to face evaluation on this patient. I have reviewed and agree with the care plan. History and Exam by me shows: ESRD on HD but he has reported in'c fatigue with thrice weekly HD, and so will stick with twice weekly for now. Original Note: Date of Encounter: 02/02/18 Time of Encounter: 07:40 - Assessment and Plan (1) ESRD (end stage renal disease) on dialysis Current Visit: Yes Status: Chronic Patient is on dialysis at [facility] on M/F only Patient states he understands the linux admin engineer recommends he do dialysis three times a week but he declines this recommendation. He states he just can not do three times a week Patient has had recent access placed, currently maturing We have had multiple problems with his permacath clotting/not running; it has been replaced several times. Renal diet ordered (2) Healing wound present on both lower extremities Current Visit: No Status: Acute BLL with erythema and multiple scabs, chronic per patient defer to primary team (3) Seizure-like activity Current Visit: Yes Status: Acute per primary team Subjective Principal diagnosis: Seizure-like activity; ESRD on HD Interval history: Patient seen and examined. States he still doesn't feel good, vague complaints, "I just don' feel right". I have seen patient in the outpatient clinic at [facility] a number of times and he is not a complainer. Objective - Vital Signs Vital signs: Vital Signs Temp Pulse Resp BP Pulse Ox 02/02/18 05:44 149/74 02/02/18 04:03 97.9 F 83 17 198/103 97 02/02/18 00:31 97.8 F 80 17 111/71 99 02/01/18 20:37 97.7 F 90 17 164/84 98 02/01/18 18:20 98.8 F 16 152/78 02/01/18 18:00 156/87 02/01/18 17:45 149/86 02/01/18 17:30 142/77 02/01/18 17:15 144/81 02/01/18 17:00 165/97 02/01/18 16:45 162/89 02/01/18 16:30 178/97 02/01/18 16:15 184/104 02/01/18 16:00 202/110 02/01/18 15:45 217/97 02/01/18 15:30 98.4 F 14 198/93 02/01/18 14:46 152/75 02/01/18 14:22 79 18 200/93 100 02/01/18 13:12 80 15 163/93 100 02/01/18 12:14 98.4 F 82 16 172/80 98 Intake and Output 02/01/18 02/01/18 02/02/18 15:59 23:59 07:59 Intake Total 600 / 600 Output Total 2316 / 2316 Balance 600 / 600 -2316 / -2316 Intake: Oral 0 / 0 Intake, Rinseback and Flushes 600 / 600 Output: Urine 0 / 0 Total Dialysis (HD) Output 1916 / 1916 Straight Cath 400 / 400 Other: Weight 104.78 kg 106.2 kg 105 kg Blood Glucose* 218 169 Hemodialysis Net Fluid Removed 318 1316 (mL) Patient Weight 02/02/18 23:59 Weight 105 kg - General Appearance General appearance: Present: well-developed, well-nourished EENT: Present: ATNC, mucous membranes moist, hearing intact, vision intact Neck: Present: supple Respiratory: Present: clear Cardiology: Present: no edema, normal S1, normal S2 Dialysis Vascular Access: Venous Catheter Gastrointestinal: Present: no tenderness, no guarding Integumentary: Present: erythema (BLL-chronic) Neurologic: Present: alert and oriented x3 Psychiatric: Present: mood/affect appropriate, cooperative - Lab 02/02/18 04:23 02/02/18 04:23 Most recent lab results Calcium 8.4 mg/dL (8.6-10.3) L 02/02/18 04:23 Magnesium 1.8 mg/dL (1.6-2.6) 02/01/18 12:32 Consult Discharge Plan - Plan Referrals: NONE,PCP [Primary Care Provider] -
[2018-02-02] MEDS: Amoxicillin 250 MG CHEWABLE TABLET PO SCH (09:00)
[2018-02-02] MEDS: Aspirin Enteric Coated 81 MG Tablet PO SCH (09:01)
[2018-02-02] MEDS: Magnesium Oxide 400 MG TABLET PO SCH (09:01)
--- NOTE | 2018-02-02 11:24 | Neurology - Consult Note ---
<Avtar Buckley - Last Filed: 02/02/18 16:01> Date of Encounter: 02/02/18 Time of Encounter: 11:34 Assessment and Plan (1) Seizure-like activity Current Visit: Yes Status: Acute patient was witnessed to have "shaking" activity during dialysis. He did not have post-ictal state, loss of bowel, bladder function or tongue biting sodium 134 on presentation He does report one episode seizure in 2013 where he was febrile 2nd to unknown i nfection patient does not appear to be on medications that decrease seizure threshold. Head Ct negative Patient had admission in 10/2017 and had stroke alert after LHC: Brain MRI, CTA head and neck were negative for acute infarcts/chronic infarcts. Plan: unclear if patient's episode is true seizure. We will get EEG History of Present Illness Chief complaint: seizure HPI: Mr. Hernandez is a 52 year old male hx of ESRD on dialysis presents with cc of seizure like activity. patient was undergoing dialysis yesterday when he became somnolent and then unconscious and was witnessed to have "shaking" activity for one minute before he regained consciousness upon sternal rub from nurse. He did not have post-ictal state. He denies loss of bowel or bladder function and tongue-biting. He reports having hx of seizure once in 2013 after having high fevers of 104 from an infection. He denies hx of head trauma or stroke. Past Med Surg Social Fam HX - Past Medical History Medical history: coronary artery disease, diabetes, dialysis, hypertension, renal disease Additional medical history: Type II Diabetic. 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 prostate surgery. CORNELIUS HD permacath - Social History Smoking Status: Never smoker Smokeless Tobacco Status: No Alcohol use: none Drug use: marijuana - Family History Mother Living Status: Hx Family Cardiac Disorders: Yes (stroke) Hx Family Respiratory Disorders: Yes Hx Family Endocrine Disorder: Yes (DM) Father Adopted: [place]: [place] Living Status: Age at : 66 Hx Family Cardiac Disorders: Yes Hx Family Respiratory Disorders: Yes Hx Family Cancer: No Hx Family Endocrine Disorder: Yes Medications and Allergies Aspirin [Lo-Dose Aspirin EC] 81 mg PO DAILY 07/30/17 [History] Insulin ASPART [NovoLOG] 10 unit SQ QAM AND QHS 07/30/17 [History] Ergocalciferol (VITAMIN D2) [Vitamin D2] 50,000 unit PO WE 09/24/17 [History] Insulin ASPART [NovoLOG] 15 unit SQ 1200 09/24/17 [History] Clopidogrel [Plavix] 75 mg PO DAILY #30 tablet 10/29/17 [Rx] Insulin Glargine,Hum.rec.anlog [Basaglar Kwikpen U-100] 60 unit SQ DAILY 02/01/18 [History] Magnesium Oxide [Magnesium] 400 mg PO DAILY 02/01/18 [History] Allergy/AdvReac Type Severity Reaction Status Date / Time No Known Allergies Allergy Verified 02/01/18 12:20 All Systems: The remainder of the systems were reviewed and are negative Review of Systems: Constitutional: Denies fever, chills HEENT: Reports headache, denies trauma, blurry vision, eye discharge, ear pain, ear discharge neck pain, sore throat, rhinorrhea Heart: Denies chest pain palpitations, LE edema Lungs: Denies shortness of breath cough Abdomen: Denies abdominal pain nausea vomiting diarrhea MSK: Denies back pain, falls, joint pain Kidney: Denies dysuria, hematuria Skin: Denies rash, ulcers Neuro: Reports numbness, tingling Psych: denies axniety, depression Physical Examination - Vital Signs Vital Signs: Initial Vital Signs Temp Pulse Resp BP Pulse Ox 98.4 F 82 16 172/80 98 02/01/18 12:14 02/01/18 12:14 02/01/18 12:14 02/01/18 12:14 02/01/18 12:14 - Exam Exam: General: pleasant, without distress HEENT: Head atraumatic, normocephalic, EOMI, PERRL, absent ear discharge or tra jessica, Moist Mucous Membranes, uvula midline Neck: nontender to palpation, absent lymphadenopathy, Cardiovascualr: Regular rate and rhythm with no murmur, absent gallops or rubs, 1+ pedal edema, radial pulses 2 out of 4 Lungs: Clear to auscultation bilaterally, not in respiratory distress Abdomen: Soft nontender, nondistended positive bowel sounds, absent hepatomegaly Skin: warm and dry, absent rash, absent open wounds and nodules MSK: absent clubbing, cyanosis, joints without swelling Psych: good insight and judgment - Neurologic Sensorimotor examination: intact Motor examination - right side: 5: deltoids, biceps, triceps, wrist flexion, wrist extension, compliance representative dealer, hip flexors, tibialis Anterior, quadriceps, toe extension (EHL), plantarflexion Motor examination - left side: 5: deltoids, biceps, triceps, wrist flexion, wrist extension, hip flexors, compliance representative dealer, quadriceps, tibialis Anterior, toe extension (EHL), plantarflexion Detailed sensory examination: light touch (Decreased sensation to light touch in all 4 distal extremities) Reflex and gait examination: normal gait Reflexes: Biceps: 2+, Triceps: 2+, Brachioradialis: 2+, Patella: 2+, Achilles: 2+ Mental Status Examination: awake, alert, oriented to person, oriented to place, oriented to time, follows commands appropriately, answers questions appropriately, opens eyes to voice Cranial nerve examination: PERRL, EOMI, visual robles intact, sensory to face intact, mastication intact, no facial asymmetry is present, no dysarthria, hearing is intact symmetrically, soft palate elevates bilaterally upon phona tion, gag reflex intact, flexes SCM and trapezius muscles symmetrically with full power, tongue protrudes midline, no atrophy or facial fasiculations present Cerebellar examination: no dysmetria, performs finger to nose and heel to [place] symmetrically without ataxia, no gait ataxia, no difficulty with rapid alternating movements Results - Laboratory Findings CBC and BMP: 02/02/18 04:23 02/02/18 04:23 Abnormal lab findings: Abnormal lab results RBC 3.61 M/mcL (4.19-5.50) L 02/02/18 04:23 Hgb 10.7 g/dL (12.9-16.9) L 02/02/18 04:23 Hct 32.1 % (37.5-50.1) L 02/02/18 04:23 MPV 9.1 fL (9.4-12.4) L 02/02/18 04:23 BUN 40 mg/dL (6-20) H 02/02/18 04:23 Creatinine 4.72 mg/dL (0.70-1.30) H 02/02/18 04:23 Est GFR ( Amer) 16 (> 60) L 02/02/18 04:23 Est GFR (Non-Af Amer) 13 (> 60) L 02/02/18 04:23 Glucose 160 mg/dL (70-105) H 02/02/18 04:23 POC Glucose 183 mg/dL (70-99) H 02/02/18 07:55 Calcium 8.4 mg/dL (8.6-10.3) L 02/02/18 04:23 Venous Ioniz Calcium 0.92 mmol/L (1.15-1.35) L 02/01/18 14:40 B-Natriuretic Peptide 200 pg/mL (Less than 100) H 02/01/18 12:32 Urine Protein >=1000 mg/dL (Neg-Trace) H 02/01/18 14:12 Urine Glucose (UA) 500 mg/dL (Normal) H 02/01/18 14:12 Urine Blood Trace (Negative) H 02/01/18 14:12 Ur Leukocyte Esterase Trace (Negative) H 02/01/18 14:12 Urine Microscopic RBC 5-15 per hpf (0-3) H 02/01/18 14:12 Urine Microscopic WBC 15-30 per hpf (0-3) H 02/01/18 14:12 Ur Squamous Epith Cells Many per lpf (None-Few) H 02/01/18 14:12 Consult Discharge Plan - Plan Referrals: NONE,PCP [Primary Care Provider] - <Ismael Sue I - Last Filed: 02/02/18 16:41> Assessment and Plan (1) Seizure-like activity Current Visit: Yes Status: Acute Pt was seen and examined, my medical decision was reviewed with the Resident Physician, I agree with the documented findings, disposition and treatment plas as described except to the extent set forth below This patient who has multiple medical conditions and along with metabolic disturbances noted to have these episodes of shaking and some stiffness without any typical features commonly seen with the seizure. So far as workup is been negative including MRI of the brain that did not show any acute infarct. No clinical sinus symptoms to be suggestive of any COLLEGE ASSOCIATE infection As far as seizures of concern at the moment would not recommend starting on any anticonvulsive medication unless we see any abnormality on EEG Continue to treat his underlying metabolic abnormalities continued to monitor him for any cardiac arrhythmias Symptomatic treatment for his headache Ismael Sue MD History of Present Illness HPI: Mr. Hernandez is a 52 year old male All Systems: The remainder of the systems were reviewed and are negative Physical Examination - Vital Signs Vital Signs: Initial Vital Signs Temp Pulse Resp BP Pulse Ox 98.4 F 82 16 172/80 98 02/01/18 12:14 02/01/18 12:14 02/01/18 12:14 02/01/18 12:14 02/01/18 12:14 Results - Laboratory Findings CBC and BMP: 02/02/18 04:23 02/02/18 04:23 Abnormal lab findings: Abnormal lab results RBC 3.61 M/mcL (4.19-5.50) L 02/02/18 04:23 Hgb 10.7 g/dL (12.9-16.9) L 02/02/18 04:23 Hct 32.1 % (37.5-50.1) L 02/02/18 04:23 MPV 9.1 fL (9.4-12.4) L 02/02/18 04:23 BUN 40 mg/dL (6-20) H 02/02/18 04:23 Creatinine 4.72 mg/dL (0.70-1.30) H 02/02/18 04:23 Est GFR ( Amer) 16 (> 60) L 02/02/18 04:23 Est GFR (Non-Af Amer) 13 (> 60) L 02/02/18 04:23 Glucose 160 mg/dL (70-105) H 02/02/18 04:23 POC Glucose 183 mg/dL (70-99) H 02/02/18 07:55 Calcium 8.4 mg/dL (8.6-10.3) L 02/02/18 04:23 Venous Ioniz Calcium 0.92 mmol/L (1.15-1.35) L 02/01/18 14:40 B-Natriuretic Peptide 200 pg/mL (Less than 100) H 02/01/18 12:32 Urine Protein >=1000 mg/dL (Neg-Trace) H 02/01/18 14:12 Urine Glucose (UA) 500 mg/dL (Normal) H 02/01/18 14:12 Urine Blood Trace (Negative) H 02/01/18 14:12 Ur Leukocyte Esterase Trace (Negative) H 02/01/18 14:12 Urine Microscopic RBC 5-15 per hpf (0-3) H 02/01/18 14:12 Urine Microscopic WBC 15-30 per hpf (0-3) H 02/01/18 14:12 Ur Squamous Epith Cells Many per lpf (None-Few) H 02/01/18 14:12
--- NOTE | 2018-02-02 13:30 | Internal Med Progress Note ---
Hospitalist Progress Note - Encounter Date of Encounter: 02/02/18 Time of Encounter: 09:00 - Subjective Interval History: Pt feels not good, whole body muscle pain, no further seizure or seizure like activity. - Exam Vitals: Temp Pulse Resp BP Pulse Ox 98.1 F 71 16 139/80 98 02/02/18 11:23 02/02/18 11:23 02/02/18 11:23 02/02/18 11:23 02/02/18 11:23 Exam: AAO x 3, in NAD HEENT: NT/AC, PERRL Neck: Supple, no JVD Lungs: CTA b/l Heart: S1S2, RRR Abd: Soft, NT, BS normal. Ext: No pedal edema Neuro: No focal deficit - Assessment and Plan (1) Seizure-like activity Current Visit: Yes Status: Acute Assessment and Plan: Patient with seizure-like activity during HD Electrolytes WNL, EKG unremarkable, Head CT unremarkable Seizure precautions neurology consult appreciated - Had recent echo done in October and duplex carotid done in June, unremarkable. - Pt feels not good in recent days, will check urine and blood culture, respiratory viral penal. (2) CAD (coronary artery disease) Current Visit: Yes Status: Chronic Assessment and Plan: s/p C with stent 10/2017 Continue ASA, Plavix Not on BB or Lipitor, reasons unknown (3) Diabetes mellitus Current Visit: Yes Status: Chronic Assessment and Plan: Basal, Prandial and Sliding scale insulin FS ACHS ADA diet Continue to monitor (4) ESRD (end stage renal disease) on dialysis Current Visit: Yes Status: Chronic Assessment and Plan: nephro consult appreciated. Cont HD. (5) Hypertension Current Visit: Yes Status: Chronic Assessment and Plan: Cont home med coreg. Report fluctuating BP, low on HD but high on other days. Closely f/u BP and may adjust meds as needed. (6) Hyponatremia Current Visit: Yes Status: Chronic Assessment and Plan: Chronic, baseline Na 133-134 Continue to monitor (7) Urinary tract infection Current Visit: Yes Status: Suspected Assessment and Plan: Patient was being treated for UTI as out-patient with Host[employer], with Bactrim No urine cultures on chart for this suspected UTI prior cultures from 09/24 with VRE sensitive to ampicillin Urine culture send, result pending Start patient on ampicillin po per previous urine culture results. (8) DVT prophylaxis Current Visit: No Status: Acute Assessment and Plan: heparin SC - Time Spent with Patient Total time spent is greater than 50% in coordination of care (as documented) at patient's floor/unit and/or counseling patient: 30 min 25 - 35 minutes Plan of Care Discussed with: patient Internal Medicine: Result - Labs CBC & Chem 7: 02/02/18 04:23 02/02/18 04:23 Labs: Short CBC 02/02/18 Range/Units 04:23 WBC 6.3 (4.3-11.1) K/mcL Hgb 10.7 L (12.9-16.9) g/dL Hct 32.1 L (37.5-50.1) % Plt Count 268 (140-400) K/mcL Neutrophils # 3.7 (1.6-8.9) K/mcL BMP 02/02/18 04:23 Sodium 136 Potassium 4.8 Chloride 103 Carbon Dioxide 25 BUN 40 H Creatinine 4.72 H Glucose 160 H Calcium 8.4 L Urine 02/01/18 Range/Units 14:12 Urine Color Yellow (Yellow) Urine Clarity Clear (Clear) Urine pH 7.5 (5.0-8.0) pH Units Ur Specific [place] 1.024 (1.010-1.025) Urine Protein >=1000 H (Neg-Trace) mg/dL Urine Glucose (UA) 500 H (Normal) mg/dL Consult Discharge Plan - Plan Referrals: NONE,PCP [Primary Care Provider] - (2) CAD (coronary artery disease) Qualifiers: Coronary Disease-Associated Artery/Lesion type: [place] artery [place] vs. transplanted heart: [place] heart Associated angina: without angina Qualified Code(s): I25.10 - Atherosclerotic heart disease of [place] coronary artery without angina pectoris (3) Diabetes mellitus Qualifiers: Diabetes mellitus type: type 2 Diabetes mellitus long term care pharmacist insulin use: with snf use Diabetes mellitus complication status: with hyperglycemia Qualified Code(s): E11.65 - Type 2 diabetes mellitus with hyperglycemia; Z79.4 - [facility] (current) use of insulin (5) Hypertension Qualifiers: Hypertension type: essential hypertension Qualified Code(s): I10 - Essential (primary) hypertension (7) Urinary tract infection Qualifiers: Urinary tract infection type: site unspecified Hematuria presence: without hematuria Qualified Code(s): N39.0 - Urinary tract infection, site not specified
[2018-02-02 15:30] LABS: Adenovirus Not Detected (Not Detect); Coronavirus 229E Not Detected (Not Detect)
[2018-02-02 15:31] LABS: Bordetella Pertussis Not Detected (Not Detect); Chlamydophila pneumoniae Not Detected (Not Detect); Coronavirus HKU1 Not Detected (Not Detect); Coronavirus NL63 Not Detected (Not Detect); Coronavirus OC43 Not Detected (Not Detect); Human Metapneumovirus Not Detected (Not Detect); Human Rhinovirus/Enterovirus Not Detected (Not Detect); Influenza A Subtype 2009 H1 Not Detected (Not Detect); Influenza A Untypeable Not Detected (Not Detect); Influenza B Not Detected (Not Detect); Mycoplasma pneumoniae Not Detected (Not Detect); Parainfluenza Virus 1 Not Detected (Not Detect); Parainfluenza Virus 2 Not Detected (Not Detect); Parainfluenza Virus 3 Not Detected (Not Detect); Parainfluenza Virus 4 Not Detected (Not Detect); Respiratory Syncytial Virus Not Detected (Not Detect)
[2018-02-02] MEDS: *HR* HYDROcodone/Acet 5/325 mg TABLET PO PRN (17:10)
[2018-02-02] MEDS: Amoxicillin 500 MG CAPSULE PO SCH (17:10)
[2018-02-02] MEDS: Miconazole 2% ointment 114 GM TUBE TP SCH (17:10)
[2018-02-02] MEDS: Insulin DETEMIR 100 UNIT/ML X5UNITS SQ SCH (21:55)
[2018-02-03] MEDS: *HR* HYDROcodone/Acet 5/325 mg TABLET PO PRN ×2 (03:49→12:32)
[2018-02-03] MEDS: *HR* Heparin 5,000 UNIT/ML VIAL SQ SCH ×3 (03:49→21:18)
[2018-02-03 05:18] LABS: Basophils % 0.6 %; Eosinophils # 0.1 K/mcL (0.0-0.6); Eosinophils % 2.4 %; Hematocrit 32.7 % (37.5-50.1); Hemoglobin 10.6 g/dL (12.9-16.9); Immature Granulocytes % 0.2 % (0-4); Lymphocytes # 1.5 K/mcL (0.6-4.6); Lymphocytes % 29.4 %; Mean Corpuscular HGB Conc 32.4 g/dL (31.6-35.5); Mean Corpuscular Hemoglobin 29.2 pg (28.0-33.3); Mean Corpuscular Volume 90.1 fL (83.0-100.0); Monocytes # 0.5 K/mcL (0.0-1.3); Monocytes % 9.3 %; Neutrophils # 2.9 K/mcL (1.6-8.9); Platelet Count 253 K/mcL (140-400); Red Blood Count 3.63 M/mcL (4.19-5.50); Red Cell Distribution Width 13.6 % (11.5-14.5); Segmented Neutrophils % 58.1 %
[2018-02-03 05:31] LABS: Calcium 8.4 mg/dL (8.6-10.3); Magnesium 1.8 mg/dL (1.6-2.6); Phosphorous 6.1 mg/dL (2.7-4.5); Potassium 5.2 mEq/L (3.5-5.1)
[2018-02-03] MEDS: Insulin LISPRO 300 UNITS/3 ML VIAL SQ SCH ×7 (08:09→21:05)
[2018-02-03] MEDS: Magnesium Oxide 400 MG TABLET PO SCH (08:09)
[2018-02-03] MEDS: Miconazole 2% ointment 114 GM TUBE TP SCH (08:09)
[2018-02-03] MEDS: Aspirin Enteric Coated 81 MG Tablet PO SCH (08:09)
--- NOTE | 2018-02-03 10:05 | Nephrology Progress Note ---
Addendum entered and electronically signed by Stanley Adan DO 02/08/18 12:23: I have personally performed a face to face evaluation on this patient. I have reviewed and agree with the care plan. History and Exam by me shows: ESRD on HD but he has reported in'c fatigue with thrice weekly HD, and so will stick with twice weekly for now. Original Note: Date of Encounter: 02/03/18 Time of Encounter: 10:03 - Assessment and Plan (1) ESRD (end stage renal disease) on dialysis Current Visit: Yes Status: Chronic Patient is on dialysis at [facility] on M/F only Patient states he understands the commercial mortgage broker recommends he do dialysis three times a week but he declines this recommendation. He states he just can not do three times a week Patient has had recent access placed, currently maturing We have had multiple problems with his permacath clotting/not running; it has been replaced several times. Renal diet ordered (2) Healing wound present on both lower extremities Current Visit: No Status: Acute DRSGs C/D/I defer to primary team (3) Seizure-like activity Current Visit: Yes Status: Acute per primary team Subjective Principal diagnosis: Seizure-like activity; ESRD on HD Interval history: Pt seen and examined, doing well. Denies CP/SOB. Denies nausea/vo miting/diarrhea. Objective - Vital Signs Vital signs: Vital Signs Temp Pulse Resp BP Pulse Ox 02/03/18 07:43 98.5 F 80 18 140/79 98 02/03/18 05:17 98 F 85 17 149/71 98 02/03/18 01:17 97.2 F L 82 17 156/77 99 02/02/18 21:56 97.5 F L 83 17 157/82 96 02/02/18 16:44 98 F 75 15 174/92 98 02/02/18 11:23 98.1 F 71 16 139/80 98 Intake and Output 02/02/18 02/03/18 02/03/18 23:59 07:59 15:59 Other: Weight 105.8 kg Blood Glucose* 198 165 Patient Weight 02/03/18 23:59 Weight 105.8 kg - General Appearance General appearance: Present: well-developed, well-nourished EENT: Present: ATNC, hearing intact, vision intact Neck: Present: supple Respiratory: Present: clear Cardiology: Present: normal S1, normal S2 Dialysis Vascular Access: Arteriovenous Fistula thrill: Yes bruit: Yes Gastrointestinal: Present: normoactive bowel sounds, no tenderness, no guarding Integumentary: Present: no rash, warm and dry Neurologic: Present: alert and oriented x3 Psychiatric: Present: mood/affect appropriate, cooperative - Lab 02/03/18 04:35 02/03/18 04:35 Most recent lab results Calcium 8.4 mg/dL (8.6-10.3) L 02/03/18 04:35 Phosphorus 6.1 mg/dL (2.7-4.5) H 02/03/18 04:35 Magnesium 1.8 mg/dL (1.6-2.6) 02/03/18 04:35 Consult Discharge Plan - Plan Referrals: NONE,PCP [Primary Care Provider] -
--- NOTE | 2018-02-03 10:05 | Neurology Progress Note ---
<Avtar Buckley - Last Filed: 02/03/18 13:37> Date of Encounter: 02/03/18 Time of Encounter: 10:02 Assessment and Plan (1) Seizure-like activity Current Visit: Yes Status: Acute Patient undergoing EEG today. If EEG negative then may be d/c from neurology standpoint. Subjective Principal diagnosis: Seizure-like activity; ESRD on HD Interval history: Patient denies any acute overnight events. He will undergo EEG today. Objective - Constitutional Vitals: Temp Pulse Resp BP Pulse Ox 98.5 F 80 18 140/79 98 02/03/18 07:43 02/03/18 07:43 02/03/18 07:43 02/03/18 07:43 02/03/18 07:43 General appearance: Present: A&O X 3 - Neurological Exam Sensorimotor examination: Present: intact Motor Examination: Present: grossly full strength in all extremities Motor examination - right side: 5/5: deltoids, biceps, triceps, wrist flexion, wrist extension, professional skateboarder, hip flexors, tibialis Anterior, quadriceps, toe extension (EHL), plantarflexion Motor examination - left side: 5/5: deltoids, biceps, triceps, wrist flexion, wrist extension, hip flexors, professional skateboarder, quadriceps, tibialis Anterior, toe extension (EHL), plantarflexion Sensation intact: Present: light touch (Decreased sensation to light touch in all 4 distal extremities) Reflex and gait examination: normal gait Reflexes: Biceps: 2+, Triceps: 2+, Brachioradialis: 2+, Patella: 2+, Achilles: 2+ Mental Status Examination: Present: awake, alert, oriented to person, oriented to place, oriented to time, follows commands appropriately, answers questions appropriately, opens eyes to voice Cranial nerve examination: Present: PERRL, EOMI, visual robles intact, sensory to face intact, mastication intact, no facial asymmetry is present, no dysarthria, hearing is intact symmetrically, soft palate elevates bilaterally upon phonation, gag reflex intact, flexes SCM and trapezius muscles symmetrically with full power, tongue protrudes midline, no atrophy or facial fasiculations present Cerebellar examination: Present: no dysmetria, performs finger to nose and heel to [place] symmetrically without ataxia, no gait ataxia, no difficulty with rapid alternating movements - Other Additional findings: General: pleasant, without distress Cardiovascualr: Regular rate and rhythm with no murmur, absent gallops or rubs, Lungs: Clear to auscultation bilaterally, not in respiratory distress Abdomen: Soft nontender, nondistended positive bowel sounds, absent hepatomegaly MSK: absent clubbing, cyanosis, joints without swelling Results - Laboratory Findings CBC and BMP: 02/03/18 04:35 02/03/18 04:35 Abnormal lab findings: Abnormal lab results RBC 3.63 M/mcL (4.19-5.50) L 02/03/18 04:35 Hgb 10.6 g/dL (12.9-16.9) L 02/03/18 04:35 Hct 32.7 % (37.5-50.1) L 02/03/18 04:35 MPV 9.0 fL (9.4-12.4) L 02/03/18 04:35 Potassium 5.2 mEq/L (3.5-5.1) H 02/03/18 04:35 BUN 50 mg/dL (6-20) H 02/03/18 04:35 Creatinine 6.11 mg/dL (0.70-1.30) H 02/03/18 04:35 Est GFR ( Amer) 12 (> 60) L 02/03/18 04:35 Est GFR (Non-Af Amer) 10 (> 60) L 02/03/18 04:35 Glucose 178 mg/dL (70-105) H 02/03/18 04:35 POC Glucose 152 mg/dL (70-99) H 02/02/18 16:48 Calculated Osmolality 302 (280-300) H 02/03/18 04:35 Calcium 8.4 mg/dL (8.6-10.3) L 02/03/18 04:35 Venous Ioniz Calcium 0.92 mmol/L (1.15-1.35) L 02/01/18 14:40 Phosphorus 6.1 mg/dL (2.7-4.5) H 02/03/18 04:35 B-Natriuretic Peptide 200 pg/mL (Less than 100) H 02/01/18 12:32 Urine Protein >=1000 mg/dL (Neg-Trace) H 02/01/18 14:12 Urine Glucose (UA) 500 mg/dL (Normal) H 02/01/18 14:12 Urine Blood Trace (Negative) H 02/01/18 14:12 Ur Leukocyte Esterase Trace (Negative) H 02/01/18 14:12 Urine Microscopic RBC 5-15 per hpf (0-3) H 02/01/18 14:12 Urine Microscopic WBC 15-30 per hpf (0-3) H 02/01/18 14:12 Ur Squamous Epith Cells Many per lpf (None-Few) H 02/01/18 14:12 Consult Discharge Plan - Plan Referrals: NONE,PCP [Primary Care Provider] - <Ismael Sue I - Last Filed: 02/03/18 15:37> Assessment and Plan (1) Seizure-like activity Current Visit: Yes Status: Acute Pt was seen and examined, my medical decision was reviewed with the Resident Physician, I agree with the documented findings, disposition and treatment plas as described except to the extent set forth below Ismael Sue MD Objective - Constitutional Vitals: Temp Pulse Resp BP Pulse Ox 98.6 F 81 17 150/94 99 02/03/18 11:23 02/03/18 11:23 02/03/18 11:23 02/03/18 11:23 02/03/18 11:23 Results - Laboratory Findings CBC and BMP: 02/03/18 04:35 02/03/18 04:35 Abnormal lab findings: Abnormal lab results RBC 3.63 M/mcL (4.19-5.50) L 02/03/18 04:35 Hgb 10.6 g/dL (12.9-16.9) L 02/03/18 04:35 Hct 32.7 % (37.5-50.1) L 02/03/18 04:35 MPV 9.0 fL (9.4-12.4) L 02/03/18 04:35 Potassium 5.2 mEq/L (3.5-5.1) H 02/03/18 04:35 BUN 50 mg/dL (6-20) H 02/03/18 04:35 Creatinine 6.11 mg/dL (0.70-1.30) H 02/03/18 04:35 Est GFR ( Amer) 12 (> 60) L 02/03/18 04:35 Est GFR (Non-Af Amer) 10 (> 60) L 02/03/18 04:35 Glucose 178 mg/dL (70-105) H 02/03/18 04:35 POC Glucose 152 mg/dL (70-99) H 02/02/18 16:48 Calculated Osmolality 302 (280-300) H 02/03/18 04:35 Calcium 8.4 mg/dL (8.6-10.3) L 02/03/18 04:35 Venous Ioniz Calcium 0.92 mmol/L (1.15-1.35) L 02/01/18 14:40 Phosphorus 6.1 mg/dL (2.7-4.5) H 02/03/18 04:35 B-Natriuretic Peptide 200 pg/mL (Less than 100) H 02/01/18 12:32 Urine Protein >=1000 mg/dL (Neg-Trace) H 02/01/18 14:12 Urine Glucose (UA) 500 mg/dL (Normal) H 02/01/18 14:12 Urine Blood Trace (Negative) H 02/01/18 14:12 Ur Leukocyte Esterase Trace (Negative) H 02/01/18 14:12 Urine Microscopic RBC 5-15 per hpf (0-3) H 02/01/18 14:12 Urine Microscopic WBC 15-30 per hpf (0-3) H 02/01/18 14:12 Ur Squamous Epith Cells Many per lpf (None-Few) H 02/01/18 14:12
--- NOTE | 2018-02-03 12:43 | Internal Med Progress Note ---
Hospitalist Progress Note - Encounter Date of Encounter: 02/03/18 Time of Encounter: 09:00 - Subjective Interval History: Pt has no further seizure. Still feels muscle ache. C/O dysuria. - Exam Vitals: Temp Pulse Resp BP Pulse Ox 98.6 F 81 17 150/94 99 02/03/18 11:23 02/03/18 11:23 02/03/18 11:23 02/03/18 11:23 02/03/18 11:23 Exam: AAO x 3, in NAD HEENT: NT/AC, PERRL Neck: Supple, no JVD Lungs: CTA b/l Heart: S1S2, RRR Abd: Soft, NT, BS normal. Ext: No pedal edema Neuro: No focal deficit - Assessment and Plan (1) Seizure-like activity Current Visit: Yes Status: Acute Assessment and Plan: Patient with seizure-like activity during HD Electrolytes WNL, EKG unremarkable, Head CT unremarkable Seizure precautions neurology consult appreciated - Had recent echo done in October and duplex carotid done in June, unremarkable. - Pt feels not good in recent days, so far cultures are negative, respiratory viral penal negative. Pt has no leukocytosis or fever or tachycardia or tachypnea. - Had EEG today - Will follow neuro further recommendation. (2) DVT prophylaxis Current Visit: Yes Status: Acute Assessment and Plan: SQ heparin (3) CAD (coronary artery disease) Current Visit: Yes Status: Chronic Assessment and Plan: s/p [facility] with stent 10/2017 Continue ASA, Plavix Not on BB or Lipitor, reasons unknown (4) Diabetes mellitus Current Visit: Yes Status: Chronic Assessment and Plan: Basal, Prandial and Sliding scale insulin FS ACHS ADA diet Continue to monitor (5) ESRD (end stage renal disease) on dialysis Current Visit: Yes Status: Chronic Assessment and Plan: nephro consult appreciated. Cont HD. (6) Hypertension Current Visit: Yes Status: Chronic Assessment and Plan: Not on ant HTN meds at home. Report fluctuating BP, low on HD but high on other days. Closely f/u BP and may adjust meds as needed. (7) Urinary tract infection Current Visit: Yes Status: Suspected Assessment and Plan: Patient was being treated for UTI as out-patient with [employer], with Bactrim No urine cultures on chart for this suspected UTI prior cultures from 6/14 with VRE sensitive to ampicillin Urine culture shows no growth, however this is after pt taking bactrim as outpatient. Pt still c/o dysuria. Will cont ampicillin po per previous urine culture results. DVT Prophylaxis: heparin sc - Time Spent with Patient Total time spent is greater than 50% in coordination of care (as documented) at patient's floor/unit and/or counseling patient: 30 min 25 - 35 minutes Plan of Care Discussed with: patient Internal Medicine: Result - Labs CBC & Chem 7: 02/03/18 04:35 02/03/18 04:35 Labs: Short CBC 02/03/18 Range/Units 04:35 WBC 5.0 (4.3-11.1) K/mcL Hgb 10.6 L (12.9-16.9) g/dL Hct 32.7 L (37.5-50.1) % Plt Count 253 (140-400) K/mcL Neutrophils # 2.9 (1.6-8.9) K/mcL BMP 02/03/18 04:35 Sodium 137 Potassium 5.2 H Chloride 106 Carbon Dioxide 23 BUN 50 H Creatinine 6.11 H Glucose 178 H Calcium 8.4 L Consult Discharge Plan - Plan Referrals: NONE,PCP [Primary Care Provider] - (3) CAD (coronary artery disease) Qualifiers: Coronary Disease-Associated Artery/Lesion type: [place] artery [place] vs. transplanted heart: [place] heart Associated angina: without angina Qualified Code(s): I25.10 - Atherosclerotic heart disease of [place] coronary artery without angina pectoris (4) Diabetes mellitus Qualifiers: Diabetes mellitus type: type 2 Diabetes mellitus ferry terminal supervisor insulin use: with [facility] use Diabetes mellitus complication status: with hyperglycemia Qualified Code(s): E11.65 - Type 2 diabetes mellitus with hyperglycemia; Z79.4 - ferry terminal supervisor (current) use of insulin (6) Hypertension Qualifiers: Hypertension type: essential hypertension Qualified Code(s): I10 - Essential (primary) hypertension (7) Urinary tract infection Qualifiers: Urinary tract infection type: site unspecified Hematuria presence: without hematuria Qualified Code(s): N39.0 - Urinary tract infection, site not specified
--- NOTE | 2018-02-03 15:38 | EEG/EMG/Oth Biometrics Report ---
EEG Procedure Report EEG Procedure: Routine EEG Procedure Note: This is a routine 21 channel digital EEG performed utilizing 10- 20 international electrode placement system. FINDINGS: Patient has a predominant waking background frequency that is average voltage 8 to 10 Hertz alpha activity in the posterior region, normal amplitude symmetrical over the both hemispheres reactive to eyes opening and closing record continued to show alpha activity intermixed with some theta off and on, no abnormal activity recorded, predominantly no evidence of any spike wave discharges or any lateralizing abnormalities, Photic stimulation n did not produce any convulsive response. Intermittent EMG artifacts were noted. Stage II sleep was not achieved. Impression: Normal awake drowsy low amplitude electroencephalogram. No epileptiform discharges or any other paroxysmal activities noted. ( Please note that normal EEG does not exclude the diagnosis of seizures or epilepsy, clinical correlation is suggested)
[2018-02-03] MEDS: Amoxicillin 500 MG CAPSULE PO SCH (16:29)
[2018-02-03] MEDS ORDERED: Lidocaine Jelly 6ml 1 APPL/6 ML JEL.PF.APP TP ONE (16:54)
[2018-02-03] MEDS: Insulin DETEMIR 100 UNIT/ML X5UNITS SQ SCH (21:18)
[2018-02-04 05:34] LABS: Basophils % 0.6 %; Eosinophils # 0.2 K/mcL (0.0-0.6); Eosinophils % 2.9 %; Hematocrit 31.8 % (37.5-50.1); Hemoglobin 10.5 g/dL (12.9-16.9); Immature Granulocytes % 0.2 % (0-4); Lymphocytes # 1.5 K/mcL (0.6-4.6); Lymphocytes % 29.6 %; Mean Corpuscular Hemoglobin 29.9 pg (28.0-33.3); Mean Corpuscular Volume 90.6 fL (83.0-100.0); Mean Platelet Volume 9.1 fL (9.4-12.4); Monocytes # 0.5 K/mcL (0.0-1.3); Monocytes % 9.6 %; Platelet Count 255 K/mcL (140-400); Red Blood Count 3.51 M/mcL (4.19-5.50); Red Cell Distribution Width 13.4 % (11.5-14.5); Segmented Neutrophils % 57.1 %
[2018-02-04 05:55] LABS: Calcium 8.6 mg/dL (8.6-10.3); Potassium 5.3 mEq/L (3.5-5.1)
[2018-02-04] MEDS: *HR* Heparin 5,000 UNIT/ML VIAL SQ SCH ×2 (06:22→14:31)
[2018-02-04] MEDS: Insulin LISPRO 300 UNITS/3 ML VIAL SQ SCH ×6 (08:19→16:51)
[2018-02-04] MEDS: Aspirin Enteric Coated 81 MG Tablet PO SCH (08:21)
[2018-02-04] MEDS: Magnesium Oxide 400 MG TABLET PO SCH (08:21)
--- NOTE | 2018-02-04 10:45 | Nephrology Progress Note ---
Addendum entered and electronically signed by Stanley Adan DO 02/08/18 12:24: I have personally performed a face to face evaluation on this patient. I have reviewed and agree with the care plan. History and Exam by me shows: ESRD on HD but he has reported in'c fatigue with thrice weekly HD, and so will stick with twice weekly for now. Next HD will be on Thursday, which could be arranged at his typical outpt unit. Original Note: Date of Encounter: 02/04/18 Time of Encounter: 08:20 - Assessment and Plan (1) ESRD (end stage renal disease) on dialysis Current Visit: Yes Status: Chronic Patient is on dialysis at [facility] on M/ only Patient states he understands the smoke room operator recommends he do dialysis three times a week but he declines this recommendation. He states he just can not do three times a week Patient has had recent access placed, currently maturing We have had multiple problems with his permacath clotting/not running; it has been replaced several times. Continue renal diet Avoid nephrotoxins if possible (2) Healing wound present on both lower extremities Current Visit: No Status: Acute per primary team (3) Seizure-like activity Current Visit: Yes Status: Acute per neurology team Subjective Principal diagnosis: Seizure-like activity; ESRD on HD Interval history: Patient seen and examined. States he is feeling a little better today. Objective - Vital Signs Vital signs: Vital Signs Temp Pulse Resp BP Pulse Ox 02/04/18 07:44 98.8 F 81 18 136/77 97 02/04/18 02:57 98.2 F 76 16 174/86 99 02/03/18 23:47 97.6 F 84 16 108/65 95 02/03/18 20:31 97.9 F 75 16 170/91 97 02/03/18 16:19 98.6 F 79 18 161/93 99 02/03/18 11:23 98.6 F 81 17 150/94 99 Intake and Output 02/03/18 02/04/18 02/04/18 23:59 07:59 15:59 Other: Weight 106.7 kg Blood Glucose* 163 148 - General Appearance General appearance: Present: well-developed, well-nourished, obese EENT: Present: ATNC, mucous membranes moist, hearing intact, vision intact Neck: Present: supple Respiratory: Present: clear Cardiology: Present: no edema, normal S1, normal S2 Dialysis Vascular Access: Arteriovenous Fistula Gastrointestinal: Present: no tenderness, no guarding, obese Integumentary: Present: warm and dry Neurologic: Present: alert and oriented x3 Psychiatric: Present: mood/affect appropriate, cooperative - Lab 02/04/18 05:01 02/04/18 05:01 Most recent lab results Calcium 8.6 mg/dL (8.6-10.3) 02/04/18 05:01 Phosphorus 6.1 mg/dL (2.7-4.5) H 02/03/18 04:35 Magnesium 1.8 mg/dL (1.6-2.6) 02/03/18 04:35 Consult Discharge Plan - Plan Referrals: NONE,PCP [Primary Care Provider] -
[2018-02-04] MEDS: Miconazole 2% ointment 114 GM TUBE TP SCH (11:02)
[2018-02-04] MEDS: *HR* HYDROcodone/Acet 5/325 mg TABLET PO PRN (13:57)
--- NOTE | 2018-02-04 13:59 | Neurology Progress Note ---
Date of Encounter: 02/04/18 Time of Encounter: 08:25 Assessment and Plan (1) Seizure-like activity Current Visit: Yes Status: Acute No evidence of any abnormal activity on EEG No typical clinical sign and symptoms to be suggestive of seizures Perhaps could be convulsive syncope Suggest stable fluid intake could be difficult due to dialysis, THERE is also some noncompliance issues Would not recommend any anticonvulsive therapy at this time No evidence of any stroke on imaging or on exam Okay to discharge from neurology standpoint We will sign off call if needed Ismael Sue MD Subjective Principal diagnosis: Seizure-like activity; ESRD on HD Interval history: Further clinical seizure like activity seems to be AT baseline EEG negative no evidence of any stroke Objective - Constitutional Vitals: Temp Pulse Resp BP Pulse Ox 98.4 F 80 17 151/82 98 02/04/18 11:43 02/04/18 11:43 02/04/18 11:43 02/04/18 11:43 02/04/18 11:43 General appearance: Present: A&O X 3 - Neurological Exam Sensorimotor examination: Present: intact Motor Examination: Present: grossly full strength in all extremities Motor examination - left side: 5/5: deltoids, biceps, triceps, wrist flexion, wrist extension, hip flexors, microsoft exchange administrator, quadriceps, tibialis Anterior, toe extension (EHL), plantarflexion Sensation intact: Present: light touch (Decreased sensation to light touch in all 4 distal extremities) Reflex and gait examination: normal gait Mental Status Examination: Present: awake, alert, oriented to person, oriented to place, oriented to time, follows commands appropriately, answers questions appropriately, opens eyes to voice Cranial nerve examination: Present: PERRL, EOMI, visual robles intact, sensory to face intact, mastication intact, no facial asymmetry is present, no dysarthria, hearing is intact symmetrically, soft palate elevates bilaterally upon phonation, gag reflex intact, flexes SCM and trapezius muscles symmetrically with full power, tongue protrudes midline, no atrophy or facial fasiculations present Cerebellar examination: Present: no dysmetria, performs finger to nose and heel to [place] symmetrically without ataxia, no gait ataxia, no difficulty with rapid alternating movements Results - Laboratory Findings CBC and BMP: 02/04/18 05:01 02/04/18 05:01 Abnormal lab findings: Abnormal lab results RBC 3.51 M/mcL (4.19-5.50) L 02/04/18 05:01 Hgb 10.5 g/dL (12.9-16.9) L 02/04/18 05:01 Hct 31.8 % (37.5-50.1) L 02/04/18 05:01 MPV 9.1 fL (9.4-12.4) L 02/04/18 05:01 Potassium 5.3 mEq/L (3.5-5.1) H 02/04/18 05:01 Carbon Dioxide 21 mEq/L (23-29) L 02/04/18 05:01 BUN 54 mg/dL (6-20) H 02/04/18 05:01 Creatinine 6.74 mg/dL (0.70-1.30) H 02/04/18 05:01 Est GFR ( Amer) 10 (> 60) L 02/04/18 05:01 Est GFR (Non-Af Amer) 9 (> 60) L 02/04/18 05:01 Glucose 198 mg/dL (70-105) H 02/04/18 05:01 POC Glucose 148 mg/dL (70-99) H 02/04/18 07:41 Calculated Osmolality 302 (280-300) H 02/04/18 05:01 Venous Ioniz Calcium 0.92 mmol/L (1.15-1.35) L 02/01/18 14:40 Phosphorus 6.1 mg/dL (2.7-4.5) H 02/03/18 04:35 B-Natriuretic Peptide 200 pg/mL (Less than 100) H 02/01/18 12:32 Urine Protein >=1000 mg/dL (Neg-Trace) H 02/01/18 14:12 Urine Glucose (UA) 500 mg/dL (Normal) H 02/01/18 14:12 Urine Blood Trace (Negative) H 02/01/18 14:12 Ur Leukocyte Esterase Trace (Negative) H 02/01/18 14:12 Urine Microscopic RBC 5-15 per hpf (0-3) H 02/01/18 14:12 Urine Microscopic WBC 15-30 per hpf (0-3) H 02/01/18 14:12 Ur Squamous Epith Cells Many per lpf (None-Few) H 02/01/18 14:12 Consult Discharge Plan - Plan Referrals: NONE,PCP [Primary Care Provider] -
[2018-02-04 16:13] VITALS: BP 167/97
[2018-02-04 16:38] LABS: Calcium 8.4 mg/dL (8.6-10.3); Potassium 5.5 mEq/L (3.5-5.1)
[2018-02-04] MEDS ORDERED: *HR* Dextrose 50 % in Water (Syg) 50 ML SYRINGE IVP ONE (16:47)
[2018-02-04] MEDS ORDERED: Insulin Human Regular 8 UNIT in 0.9 % Sodium Chloride 10 ML IV ONE (16:48)
[2018-02-04] MEDS ORDERED: Ipratropium/Albuterol Neb 3 ML IH ONE (16:50)
[2018-02-04] MEDS: Amoxicillin 500 MG CAPSULE PO SCH (16:52)
--- NOTE | 2018-02-04 17:09 | Discharge Summary ---
- NOTES TO OUTPATIENT PROVIDER Notes to Outpatient Provider: 1. Pt has hyperkalemia with last potassium 5.5, he decide sign AMA, please closely f/u at outpatient. 2. Will cont po Amoxicillin 500mg po daily for 3 more days to finish a 7 day course for his UTI. Orders not resulted at time of discharge: Pending orders 02/02/18 13:47 Culture,Blood [BC] Stat 02/05/18 04:00 BMP [Basic Metabolic Panel] AM 0400 Date of Encounter: 02/04/18 Time of Encounter: 17:00 - Discharge Diagnosis (1) Seizure-like activity Priority: Primary Status: Acute (2) Hyperkalemia Priority: Primary Status: Acute (3) Diabetes mellitus Priority: Secondary Status: Chronic Qualifiers: Diabetes mellitus type: type 2 Diabetes mellitus jail insulin use: with jail use Diabetes mellitus complication status: with hyperglycemia Qualified Code(s): E11.65 - Type 2 diabetes mellitus with hyperglycemia; Z79.4 - longterm (current) use of insulin (4) ESRD (end stage renal disease) on dialysis Priority: Secondary Status: Chronic (5) Hypertension Priority: Secondary Status: Chronic Qualifiers: Hypertension type: essential hypertension Qualified Code(s): I10 - Essential (primary) hypertension (6) Urinary tract infection Priority: Primary Status: Suspected Qualifiers: Urinary tract infection type: site unspecified Hematuria presence: without hematuria Qualified Code(s): N39.0 - Urinary tract infection, site not specified Hospital course: Mr. Hernandez is a 53 year old male present to ER for seizure like activity during HD. Pt was seen by neurology and had EEG, which is unremarkable. Pt has no further seizure activity during hospitalization. Neurology recommend no further test or treatment. Pt is not compliant with HD and refuse to have three times HD a week. Nephrology saw pt and had HD for him on 02/01 but pt refuse 02/03 HD. Today his potassium level is high at 5.3. 30g kayexalate given in AM, repeat potassium level 6.0 at 2 pm, 5.5 at 3:30pm, pt said he still has diarrhea now. We plan cont cardiac monitoring and give further treatment but pt refused further treatment for his hyperkalemia, and would like to sign AMA. He said he will have HD by his nephrology in tomorrow AM. I explained to him his potassium level possibly continue to increase overnight b/o his ESRD and hyperkalemia can cause cardiac arrest and he may if leave untreated. Pt shows understanding but insist to sign AMA to leave. Pt is apparently AAO x3 with full capacity to make medical decision. RN withness the conversation. Finally pt signed AMA and left. As I examined him at bedside, he is in NAD. No signs of fluid overload. Vitals are stable. He was given amoxicillin for 3 more days to finish a 7 days treatment of UTI. - Time Spent with Patient Total time spent providing and/or coordinating discharge services: 40 min Greater than 30 minutes - Discharge Medications Prescriptions: Amoxicillin [Amoxil] 500 mg PO Q24H 3 Days #3 capsule Home Medications: Aspirin [Lo-Dose Aspirin EC] 81 mg PO DAILY 07/30/17 [History] Insulin ASPART [NovoLOG] 10 unit SQ QAM AND QHS 07/30/17 [History] Ergocalciferol (VITAMIN D2) [Vitamin D2] 50,000 unit PO WE 09/24/17 [History] Insulin ASPART [NovoLOG] 15 unit SQ 1200 09/24/17 [History] Clopidogrel [Plavix] 75 mg PO DAILY #30 tablet 10/29/17 [Rx] Insulin Glargine,Hum.rec.anlog [Basaglar Kwikpen U-100] 60 unit SQ DAILY 02/01/18 [History] Magnesium Oxide [Magnesium] 400 mg PO DAILY 02/01/18 [History] Amoxicillin [Amoxil] 500 mg PO Q24H 3 Days #3 capsule 02/04/18 [Rx] Allergies/Adverse Reactions: Allergy/AdvReac Type Severity Reaction Status Date / Time No Known Allergies Allergy Verified 02/01/18 12:20 Date of admission: 02/01/18 14:47 Primary care physician: PCP NONE Consults: 02/01/18 14:19 Consult to Nephrology [CONS] Stat Consulting Provider: [facility] Reason for Consult: ESRD, only finished 30 minutes of dialysis today w/ K 5.5 Time Notified: 14:19 Call Completed: Yes 02/01/18 14:30 Consult to Dialysis [CONS] ONCE 02/01/18 15:18 Consult to Neurology [CONS] Routine Consulting Provider: Neurology [facility] Reason for Consult: Seizure-like disorder Call Completed: Yes 02/01/18 16:01 Consult to Wound Care [CONS] Routine Reason for Consult: Diabetic wounds on both lower extremities Call Completed: Yes 02/03/18 09:45 Consult to Interpret Exam [CONS] Routine Consulting Provider: Ismael Seu I Consult to Interpret Exam: Interpret EEG Discharging clinician: Arthur Veliz Anticipated date of discharge: 02/04/18 - Constitutional Vitals: Temp Pulse Resp BP Pulse Ox 98.1 F 82 19 167/97 99 02/04/18 16:12 02/04/18 16:12 02/04/18 16:12 02/04/18 16:12 02/04/18 16:12 General appearance: Present: A&O X 3, pleasant, no acute distress Exam: AAO x 3, in NAD - Head Head exam: Present: atraumatic, normocephalic - Eye Eye exam: Present: PERRL, conjuntiva pink, sclera anicteric Pupils: Present: PERRL - Neck Neck exam general surgery: Present: supple, trachea midline. Absent: lymphadenopathy - Respiratory Respiratory exam: Present: CTAB. Absent: accessory muscle use, rales, rhonchi, wheezes - Cardiovascular Cardiovascular exam: Present: RRR, +S1, +S2. Absent: diastolic murmur, gallop, rubs, systolic murmur - GI/Abdominal GI/Abdominal exam: Present: normal bowel sounds, soft, no peritoneal signs. Absent: distended, tenderness - Extremities Exam Extremities exam: Present: warm, radial pulses palpable and symmetrical. Absent: calf tenderness, cyanotic, pedal edema - Neurological Exam Neurological exam: Present: CN II-XII intact, oriented X3, no focal deficits. Absent: pronater drift, facial droop, speech deficit - Skin Skin exam: Present: dry, intact - Patient Status Disposition: Left Against Medical Advice Condition: Fair Functional capacity at discharge: independent ambulation - Discharge Instructions Follow Up With: NONE,PCP [Primary Care Provider] - - Diet and Activity Diet: diabetic diet, other (renal diet)
--- NOTE | 2018-02-05 15:59 | Electrocardiograph Report ---
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
== END 2018-02-04 17:30 | disposition left against medical advice (07) ==
LOC: EMEROOARM 12:10 → 2ANU 12:10 → SUATTDRO 14:47 → 2ANU 15:25
PROVIDERS: ADMIT Internal Medicine; ATTEND Internal Medicine

== ENCOUNTER 2018-06-02 14:44 | Observation (INO) ==
[2018-06-02] MEDS ORDERED: Aspirin 81 MG TAB.CHEW PO ONE (14:57)
--- NOTE | 2018-06-02 15:05 | Emergency Department Note ---
Disposition Clinical Impression: Unstable angina Disposition: Admitted As Inpatient Condition: Fair Chest Pain HPI - General Stated Complaint: chest pain Time Seen by Provider: 06/02/18 14:46 Source: patient, EMS Mode of arrival: EMS Limitations: no limitations Vital Signs Reviewed: Yes Nursing Notes Reviewed: Yes - History of Present Illness HPI Narrative: Patient presents to the ED with chief complaint of chest pain. Patient was at dialysis today but was unable to finish all of that because he started having some chest pain, pressure and heaviness. Retrosternal and nonradiating. States that it is continuing to get worse. He has had one heart attack in the past and states that this does feel similar. He denies any fever or chills. He does have some shortness of breath and has a history of congestive heart failure and diabetes. Denies any abdominal pain, nausea, vomiting, diarrhea. He is supposed to be taking aspirin and Plavix, but was taken off his Plavix about 3 weeks ago due to an upper GI bleed. His last stent was in October 2017 - Related Data Home Medications Medication Instructions Recorded Confirmed RX: Aspirin [Lo-Dose Aspirin EC] 81 mg PO DAILY 07/30/17 05/24/18 RX: Insulin ASPART [NovoLOG] 10 unit SQ BIDWM 07/30/17 05/24/18 RX: Ergocalciferol (VITAMIN D2) 50,000 unit PO WE 09/24/17 05/24/18 [Vitamin D2] RX: Insulin ASPART [NovoLOG] 15 unit SQ 1200 09/24/17 05/24/18 RX: Insulin Glargine,Hum.rec.anlog 30 unit SQ HS 02/01/18 05/24/18 [Basaglar Kwikpen U-100] RX: Mupirocin [Bactroban Oint] 1 appl TP TID 04/15/18 05/24/18 RX: Tramadol HCl [Ultram] 50 mg PO Q6H PRN 04/15/18 05/24/18 RX: Omeprazole [PriLOSEC] 40 mg PO DAILY@0730 05/24/18 05/24/18 Previous Rx's Medication Instructions Recorded RX: Clopidogrel [Plavix] 75 mg PO DAILY #30 tablet 10/29/17 RX: Ondansetron ODT [Zofran ODT] 4 mg SL Q6HR #8 tab.rapdis 05/16/18 RX: Fluconazole [Diflucan] 100 mg PO DAILY 14 Days #14 tablet 05/24/18 RX: Lisinopril [Zestril] 20 mg PO DAILY 30 Days #30 tablet 05/24/18 RX: Metoclopramide [Reglan] 10 mg PO Q6HR PRN 30 Days #90 05/24/18 tablet Allergies Allergy/AdvReac Type Severity Reaction Status Date / Time No Known Allergies Allergy Verified 05/11/18 09:42 Review of Systems: As reviewed in the HPI. All other systems reviewed are negative or normal. Chest Pain PMH - Past Medical History Medical history: Reports: coronary artery disease, diabetes, dialysis, hypertension, renal disease Surgical history: Reports: cholecystectomy, vascular surgery, other Psychiatric history: Reports: no psych history - Social History Smoking Status: Never smoker Alcohol use: Reports: none Drug use: Reports: none Physical Exam CONSTITUTIONAL: [well appearing, alert and in no acute distress] EYES: [EOMI, clear conjunctiva, PERRLA] HENT: [Normocephalic, atraumatic, moist mucus membranes, normal oropharynx] NECK: [normal inspection, full ROM, trachea midline, no obvious swelling] PULMONARY: [rales b/l bases, normal chest rise and fall, no respiratory distress or stridor, no wheezes, no rhonchi CARDIOVASCULAR: [regular rate, regular rhythm, normal heart sounds, no murmurs, distal extremities are warm and well perfused] GASTROINSTESTINAL: [soft, non-tender, non-rigid, non-distended, no guarding, no rebound, normal bowel sounds] GENITOURINARY/RECTAL: [deferred] NEUROLOGIC: [Alert, oriented x3, normal speech, moves all extremities] EXTREMITIES: [Normal inspection, full ROM, no tenderness, no pedal edema, normal capillary refill] MUSCULOSKELETAL: [no gross deformities, atraumatic] SKIN: [No cyanosis, no diaphoresis, normal color, warm, no rash] PSYCHIATRIC: [normal mood and affect] Course Course Narrative: Patient mildly elevated, but baseline troponin, likely secondary to his renal disease. He has required nitroglycerin to alleviate his pain. He did have some inferior changes that did not meet STEMI criteria, but were certainly concerning. Due to his recent history of stent placement in October and him being unable to take his aspirin or Plavix over the last 3 weeks secondary to GI bleed. I spoke with hospitalist, Dr. Hoover who felt it prudent to start the patient on heparin drip. Despite his recent bleeding as his hemoglobin is now stable and unstable angina would be more concerned and repeat bleeding. We will order that at this time and admit him to the hospital service. Vital Signs Temperature 98.3 F 06/02/18 15:30 Pulse Rate 91 06/02/18 15:30 Respiratory Rate 16 06/02/18 15:30 Blood Pressure 124/74 06/02/18 15:30 O2 Sat by Pulse Oximetry 98 06/02/18 15:30 Temperature 98.3 F 06/02/18 15:30 Pulse Rate 92 06/02/18 17:07 Respiratory Rate 16 06/02/18 17:07 Blood Pressure 162/92 06/02/18 17:07 O2 Sat by Pulse Oximetry 97 06/02/18 17:07 Oxygen Delivery Oxygen Delivery Room Air Chest Pain - Medical Records Medical records reviewed: Yes I reviewed the patient's medical records. - Lab Data Lab results reviewed: Yes I reviewed the patient's lab results. Result diagrams: 06/02/18 15:23 06/02/18 15:23 Lab Results 06/02/18 06/02/18 06/02/18 Range/Units 15:23 15:23 15:23 WBC 7.4 (4.3-11.1) K/mcL RBC 3.89 L (4.19-5.50) M/mcL Hgb 11.6 L (12.9-16.9) g/dL Hct 34.8 L (37.5-50.1) % MCV 89.5 (83.0-100.0) fL MCH 29.8 (28.0-33.3) pg MCHC 33.3 (31.6-35.5) g/dL RDW 13.9 (11.5-14.5) % Plt Count 211 (140-400) K/mcL MPV 8.8 L (9.4-12.4) fL Immature Gran % 0.4 (0-4) % Seg Neutrophils % 69.0 % Lymphocytes % 21.2 % Monocytes % 7.3 % Eosinophils % 1.6 % Basophils % 0.5 % Neutrophils # 5.1 (1.6-8.9) K/mcL Lymphocytes # 1.6 (0.6-4.6) K/mcL Monocytes # 0.5 (0.0-1.3) K/mcL Eosinophils # 0.1 (0.0-0.6) K/mcL Basophils # 0.0 (0.0-0.2) K/mcL Heparin Anti-Xa, Unfract (0.30-0.70) IU/mL Sodium 136 (136-145) mEq/L Potassium 3.8 (3.5-5.1) mEq/L Chloride 103 (98-107) mEq/L Carbon Dioxide 28 (23-29) mEq/L BUN 37 H (6-20) mg/dL Creatinine 4.04 H (0.70-1.30) mg/dL Est GFR ( Amer) 19 L (> 60) Est GFR (Non-Af Amer) 16 L (> 60) BUN/Creatinine Ratio 9 (6-26) Glucose 199 H (70-105) mg/dL Calculated Osmolality 296 (280-300) Calcium 7.8 L (8.6-10.3) mg/dL Troponin I 0.04 H* (< 0.04) ng/mL B-Natriuretic Peptide 329 H (Less than 100) pg/mL 06/02/18 Range/Units 15:23 WBC (4.3-11.1) K/mcL RBC (4.19-5.50) M/mcL Hgb (12.9-16.9) g/dL Hct (37.5-50.1) % MCV (83.0-100.0) fL MCH (28.0-33.3) pg MCHC (31.6-35.5) g/dL RDW (11.5-14.5) % Plt Count (140-400) K/mcL MPV (9.4-12.4) fL Immature Gran % (0-4) % Seg Neutrophils % % Lymphocytes % % Monocytes % % Eosinophils % % Basophils % % Neutrophils # (1.6-8.9) K/mcL Lymphocytes # (0.6-4.6) K/mcL Monocytes # (0.0-1.3) K/mcL Eosinophils # (0.0-0.6) K/mcL Basophils # (0.0-0.2) K/mcL Heparin Anti-Xa, Unfract 0.10 L (0.30-0.70) IU/mL Sodium (136-145) mEq/L Potassium (3.5-5.1) mEq/L Chloride (98-107) mEq/L Carbon Dioxide (23-29) mEq/L BUN (6-20) mg/dL Creatinine (0.70-1.30) mg/dL Est GFR ( Amer) (> 60) Est GFR (Non-Af Amer) (> 60) BUN/Creatinine Ratio (6-26) Glucose (70-105) mg/dL Calculated Osmolality (280-300) Calcium (8.6-10.3) mg/dL Troponin I (< 0.04) ng/mL B-Natriuretic Peptide (Less than 100) pg/mL - Radiology Data Radiology results reviewed: Yes I reviewed the patient's radiology results. - EKG Data EKG attestation: Yes I reviewed and interpreted this EKG. EKG results narrative: Sinus rhythm, rate 92, normal axis, nonspecific changes inferiorly but did not meet STEMI criteria Attestation Statement - Attestation Attestation: Resident Attestation: I examined this patient and my medical decision making was reviewed with the Resident Physician. I agree with the documented findings, dis position and treatment plan as described except to the extent set forth below. We independently had [id number] contact with the patient. Patient is a diabetic on dialysis Thursday with Dr. Dohsi. Patient came from dialysis. Patient finished all but 20 minutes of dialysis. Dialysis was stopped secondary to chest pain. Patient describes chest pain left chest that feels like previous MO. Patient describes pain as a 5 out of 10. Initial EKG with some inferior changes. Patient will undergo further cardiac evaluation. He did undergo stent placement approximately 6 months ago and has not been taking his aspirin and Plavix secondary to GI bleed. History of A. fib but currently regular rate and rhythm, lungs clear to auscultation bilaterally, abdomen soft nontender palpation without guarding or rebound.
[2018-06-02 15:37] LABS: Basophils % 0.5 %; Eosinophils # 0.1 K/mcL (0.0-0.6); Eosinophils % 1.6 %; Hematocrit 34.8 % (37.5-50.1); Hemoglobin 11.6 g/dL (12.9-16.9); Immature Granulocytes % 0.4 % (0-4); Lymphocytes # 1.6 K/mcL (0.6-4.6); Lymphocytes % 21.2 %; Mean Corpuscular HGB Conc 33.3 g/dL (31.6-35.5); Mean Corpuscular Hemoglobin 29.8 pg (28.0-33.3); Mean Corpuscular Volume 89.5 fL (83.0-100.0); Mean Platelet Volume 8.8 fL (9.4-12.4); Monocytes # 0.5 K/mcL (0.0-1.3); Monocytes % 7.3 %; Neutrophils # 5.1 K/mcL (1.6-8.9); Platelet Count 211 K/mcL (140-400); Red Blood Count 3.89 M/mcL (4.19-5.50); Red Cell Distribution Width 13.9 % (11.5-14.5)
[2018-06-02] MEDS ORDERED: Nitroglycerin 0.4 MG TAB.SUBL SL PRN (15:40)
[2018-06-02 15:59] LABS: Calcium 7.8 mg/dL (8.6-10.3); Potassium 3.8 mEq/L (3.5-5.1)
[2018-06-02 18:14] LABS: Troponin I 0.04 ng/mL (< 0.04)
[2018-06-02] MEDS ORDERED: *HR* Heparin 5,000 UNIT/ML VIAL IVP ONE (18:23)
[2018-06-02] MEDS ORDERED: Heparin 25,000 UNIT/500 ML D5W 25,000 UNIT/500 ML BAG IVC SCH (18:30)
[2018-06-02] MEDS ORDERED: Naloxone 0.4 MG/ML INJ IVP PRN (20:56)
--- NOTE | 2018-06-02 21:02 | Internal Med History&Physical ---
Date of Encounter: 06/02/18 Time of Encounter: 23:00 Internal Medicine - H&P: HPI Chief complaint: Chest pain Admitted From: Emergency Dept Plans for Post Hospital Care: Home History of present illness: Mr. Hernandez is a 53 year old male Patient presented to the emergency room with complaints of chest pain. He was at dialysis earlier was unable to finish his session because he began having chest pain described as heaviness and pressure. Patient felt the pain in the retrosternal area but it was nonradiating. It progressively worsened and so he came to the emergency room for further evaluation. He has a history of congestive heart failure and diabetes as well as end-stage renal disease. Of note, he was recently taken off his Plavix medicine about 3 weeks ago due to an upper GI bleed. His last stent was placed in October of last year. In the emergency room patient's vital signs initially were within normal limits, CBC was also within normal limits. BMP noted end-stage renal disease findings, elevated glucose of 199 and initial troponin of 0.04. Chest x-ray showed no acute process. EKG shows sinus rhythm with nonspecific inferior lead changes but did not meet STEMI criteria. He was given a dose of aspirin, and started on a heparin drip, and sent to medical floor for further management. On my evaluation, patient states that he is developing a headache. His chest pain he rates at about 5 out of 10 which he described as a tightness. I ordered morphine IV which he has not received yet. He requests something for his restless legs as well. He denies constipation, diarrhea, abdominal pain. He is having some mild nausea but no vomiting. He has a family history of diabetes and heart problems, and his father had testicular cancer. I discussed with him his CODE STATUS, he states that he would be okay with chest compressions if necessary but would not be okay with intubation. I explained to him that generally both are required in an emergency resuscitation, but he stated that "I would not want to be intubated under any means." Past Med Surg Social Fam HX - Past Medical History Medical history: coronary artery disease, diabetes, dialysis, hypertension, renal disease Additional medical history: Gastric ulcers. Type II Diabetic Psychiatric history: no psych history - Past Surgical History Surgical History: cholecystectomy, vascular surgery, other Additional surgical history: 1 cardiac stent - Social History Smoking Status: Never smoker Smokeless Tobacco Status: No Alcohol use: none Drug use: none - Family History Mother Adopted: No Living Status: Hx Family Cardiac Disorders: Yes (mother stroke) Hx Family Respiratory Disorders: Yes (Dad asthma copd) Hx Family Cancer: Yes (prostate, pancreatic) Hx Family GI Disorders: No Hx Family Endocrine Disorder: Yes (DM) Hx Family Neuromuscular Disorders: No Hx Family Neurologic Disorders: No Hx Family HEENT Disorders: No Hx Family Autoimmune Disorders: No Father Adopted: No Living Status: Hx Family Cardiac Disorders: Yes Hx Family Respiratory Disorders: Yes Hx Family Cancer: No Hx Family GI Disorders: No Hx Family Endocrine Disorder: Yes Hx Family Neuromuscular Disorders: No Hx Family Neurologic Disorders: No Hx Family HEENT Disorders: No Hx Family Autoimmune Disorders: No Internal Medicine - H&P: Meds Aspirin [Lo-Dose Aspirin EC] 81 mg PO DAILY 07/30/17 [History] Insulin ASPART [NovoLOG] 10 unit SQ BIDWM 07/30/17 [History] Ergocalciferol (VITAMIN D2) [Vitamin D2] 50,000 unit PO WE 09/24/17 [History] Insulin ASPART [NovoLOG] 15 unit SQ 1200 09/24/17 [History] Clopidogrel [Plavix] 75 mg PO DAILY #30 tablet 10/29/17 [Rx] Insulin Glargine,Hum.rec.anlog [Basaglar Kwikpen U-100] 40 unit SQ HS 02/01/18 [History] Mupirocin [Bactroban Oint] 1 appl TP TID 04/15/18 [History] Tramadol HCl [Ultram] 50 mg PO Q6H PRN 04/15/18 [History] Ondansetron ODT [Zofran ODT] 4 mg SL Q6HR #8 tab.rapdis 05/16/18 [Rx] Fluconazole [Diflucan] 100 mg PO DAILY 14 Days #14 tablet 05/24/18 [Rx] Lisinopril [Zestril] 20 mg PO DAILY 30 Days #30 tablet 05/24/18 [Rx] Metoclopramide [Reglan] 10 mg PO Q6HR PRN 30 Days #90 tablet 05/24/18 [Rx] Omeprazole [PriLOSEC] 40 mg PO DAILY@0730 05/24/18 [History] Allergy/AdvReac Type Severity Reaction Status Date / Time No Known Allergies Allergy Verified 05/11/18 09:42 All Systems PM: A 10-system review of systems was performed and is negative for pertinent findings except as documented above in the HPI. - Constitutional Vitals: Temp Pulse Resp BP Pulse Ox 99.1 F 93 15 185/108 99 06/02/18 20:44 06/02/18 20:44 06/02/18 20:44 06/02/18 20:44 06/02/18 20:44 General appearance: Present: cooperative, mild distress, A&O X 3, pleasant, answers questions appropriately Exam: - - Head Head exam: Present: normal inspection - Eye Eye exam: Present: EOMI, normal appearance - Respiratory Respiratory exam: Present: CTAB. Absent: chest wall tenderness, rales, respiratory distress, rhonchi, wheezes - Cardiovascular Cardiovascular exam: Present: RRR. Absent: diastolic murmur, systolic murmur - GI/Abdominal GI/Abdominal exam: Present: normal bowel sounds, soft. Absent: tenderness - Extremities Exam Extremities exam: Present: warm, radial pulses palpable and symmetrical. Absent: pedal edema, tenderness - Neurological Exam Neurological exam: Present: no focal deficits, strengths equal and symetr throughout. Absent: motor sensory deficit, facial droop, speech deficit - Skin Skin exam: Present: dry, erythema, warm Additional comments: Lower extremity superficial wounds of various stages, chronic vascular skin color changes bilaterally. Internal Med - H&P Results - Labs CBC & Chem 7: 06/02/18 15:23 06/02/18 15:23 Labs: Short CBC 06/02/18 Range/Units 15:23 WBC 7.4 (4.3-11.1) K/mcL Hgb 11.6 L (12.9-16.9) g/dL Hct 34.8 L (37.5-50.1) % Plt Count 211 (140-400) K/mcL Neutrophils # 5.1 (1.6-8.9) K/mcL BMP 06/02/18 15:23 Sodium 136 Potassium 3.8 Chloride 103 Carbon Dioxide 28 BUN 37 H Creatinine 4.04 H Glucose 199 H Calcium 7.8 L Cardiac Enzymes 06/02/18 Range/Units 15:23 Troponin I 0.04 H* (< 0.04) ng/mL - Impressions ITS Impressions Chest X-Ray 06/02/18 14:57 IMPRESSION: No acute process. D/ / Richard Magana MD / Richard Magana MD Interpreting Provider: Richard Magana MD - Assessment and plan (1) Chest pain Current Visit: No Status: Acute Assessment and plan: Patient describes his pain as a tightness, but improved. Troponin remains at 0.04. Cardiac cath performed on 10/28 showed severe two vessel disease, and stents were placed. recommended plavix at that time. Has been off his plavix due to GI bleed 3 weeks ago. Heparin drip started in ER, no signs of bleeding at this time. 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 Qualifiers: Chest pain type: unspecified Qualified Code(s): R07.9 - Chest pain, unspecified (2) Hypertension Current Visit: No Status: Chronic Assessment and plan: IV hydralazine as needed, continue to monitor. Qualifiers: Hypertension type: essential hypertension Qualified Code(s): I10 - Essential (primary) hypertension (3) Diabetes mellitus Current Visit: No Status: Chronic Assessment and plan: Insulin dependent diabetic low dose insulin sliding scale as needed Monitor sugars every 6 H NPO diet after midnight Hold home meds Qualifiers: Diabetes mellitus type: type 2 Diabetes mellitus long-term insulin use: with long-term use Diabetes mellitus complication status: with kidney complications Chronic kidney disease stage: on chronic dialysis Qualified Code(s): E11.22 - Type 2 diabetes mellitus with diabetic chronic kidney disease; N18.6 - End stage renal disease; 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 Patient dialyzed M, W, F. Nephrology consult for dialysis arrangements (5) Bilateral leg ulcer Current Visit: No Status: Acute Assessment and plan: Wounds to his lower legs, chronic. Has twice a week wound care at home for dressing changes. Continue wound care Qualifiers: Non-pressure ulcer stage: unspecified non-pressure ulcer stage Qualified Code(s): L97.919 - Non-pressure chronic ulcer of unspecified part of right lower leg with unspecified severity; L97.929 - Non-pressure chronic ulcer of unspecif ied part of left lower leg with unspecified severity (6) Esophageal candidiasis Current Visit: No Status: Acute Assessment and plan: Currently undergoing treatment, 1 more dose of diflucan to be given. Continue diflucan (7) Restless leg syndrome Current Visit: Yes Status: Acute Assessment and plan: Low dose ropinirole, due to end stage renal disease. Patient does not take anything for this at home. (8) DVT prophylaxis Current Visit: No Status: Acute Assessment and plan: Heparin drip - Time Spent With Patient Total time spent is greater than 50% in coordination of care (as documented) at patient's floor/unit and/or counseling patient: Greater than 35 minutes
[2018-06-02] MEDS ORDERED: Dextrose 4 GM Chewable Tablets PO PRN ×2 (21:04)
[2018-06-02] MEDS ORDERED: D5% in Water 1,000 ML IVC PRN (21:04)
[2018-06-02] MEDS ORDERED: *HR* Dextrose 50 % in Water (Syg) 50 ML SYRINGE IVP PRN (21:04)
[2018-06-02] MEDS ORDERED: Dextrose Gel 15 GM/37.5 ML TUBE PO PRN ×2 (21:04)
[2018-06-02] MEDS ORDERED: Ondansetron 4 MG/2 ML VIAL IVP PRN (21:12)
[2018-06-02] MEDS ORDERED: *HR* Morphine 2 MG/ML SYRINGE IVP PRN (21:13)
[2018-06-03] MEDS ORDERED: rOPINIRole 0.25 MG TABLET PO SCH
[2018-06-03] MEDS: rOPINIRole 0.25 MG TABLET PO SCH ×2 (00:43→20:48)
[2018-06-03] MEDS: Insulin LISPRO 300 UNITS/3 ML VIAL SQ SCH ×4 (01:20→17:59)
[2018-06-03 05:01] LABS: Hematocrit 31.6 % (37.5-50.1); Hemoglobin 10.5 g/dL (12.9-16.9); Mean Corpuscular HGB Conc 33.2 g/dL (31.6-35.5); Mean Corpuscular Hemoglobin 29.6 pg (28.0-33.3); Mean Platelet Volume 9.1 fL (9.4-12.4); Platelet Count 201 K/mcL (140-400); Red Blood Count 3.55 M/mcL (4.19-5.50); Red Cell Distribution Width 13.8 % (11.5-14.5)
[2018-06-03 05:31] LABS: Albumin 3.1 g/dL (3.5-5.7); Bilirubin,Total 0.3 mg/dL (0.3-1.0); Calcium 7.8 mg/dL (8.6-10.3); Phosphorous 3.1 mg/dL (2.7-4.5); Potassium 4.5 mEq/L (3.5-5.1); Total Protein 6.1 g/dL (6.4-8.9)
[2018-06-03 08:54] LABS: Hepatitis B Surface Antibody < 3.10 mIU/mL
[2018-06-03 09:05] LABS: Hepatitis B Surface Antigen Nonreactive (Nonreactive)
--- NOTE | 2018-06-03 09:17 | Nephrology Consult Note ---
<Tila Wilcox - Last Filed: 06/03/18 09:35> Date of Encounter: 06/03/18 Time of Encounter: 09:11 Assessment and Plan (1) ESRD (end stage renal disease) on dialysis Current Visit: No Status: Chronic Patient received all but 18 min of his HD treatment yesterday; is actually below EDW per Mozy yasmine Plan for HD tomorrow Was on a binder in the past but told pharmacist during last recent hospitalization that he stopped it. Last phos level on 05/26 was 3.6-will hold on binder at this time. Normally takes 1 Alejandro between meals for low Ca+; last corrected Ca+ level on 05/26 was 8.7-stable [facility] yasmine shows patient takes Midodrine 5mg TID before HD treatments; B/P currently running 167/80, 147/78. Will add Midodrine on for HD treatments if needed. Strict I/Os Will need renal diet once diet resumed Avoid nephrotoxins if possible (2) Hypertension Current Visit: No Status: Chronic B/P stable per primary team Qualifiers: Hypertension type: essential hypertension Qualified Code(s): I10 - Essential (primary) hypertension (3) Chest pain Current Visit: No Status: Acute per cardiology team Qualifiers: Chest pain type: unspecified Qualified Code(s): R07.9 - Chest pain, unspecified (4) Restless leg syndrome Current Visit: Yes Status: Acute Patient started on low dose ropinirole. History of Present Illness - Reason for Consult Consult date: 06/03/18 - Chief Complaint Chest pain, ESRD on HD - History of Present Illness Mr Hernandez is a 53 year old male well known to our practice who was admitted yesterday for chest pain. PMH inclused CHF, diabetes, ESRD on HD, restless leg syndrome, CAD and HTN. He was recently taken off his Plavix about three weeks ago for an upper GI bleed. He dialyzes at [facility] on MWF and yesterday he received all but about 15 min of his treatment. Patient is usually very compliant and his monthly labs have been good. Our group has been consult ed to manage his dialysis while hospitalized. Past Med Surg Social Fam HX - Past Medical History Medical history: coronary artery disease, diabetes, dialysis, hypertension, renal disease Additional medical history: Gastric ulcers. Type II Diabetic Psychiatric history: no psych history - Past Surgical History Surgical History: cholecystectomy, vascular surgery, other Additional surgical history: 1 cardiac stent - Social History Smoking Status: Never smoker Smokeless Tobacco Status: No Alcohol use: none Drug use: none - Family History Mother Adopted: No Living Status: Hx Family Cardiac Disorders: Yes (mother stroke) Hx Family Respiratory Disorders: Yes (Dad asthma copd) Hx Family Cancer: Yes (prostate, pancreatic) Hx Family GI Disorders: No Hx Family Endocrine Disorder: Yes (DM) Hx Family Neuromuscular Disorders: No Hx Family Neurologic Disorders: No Hx Family HEENT Disorders: No Hx Family Autoimmune Disorders: No Father Adopted: No Living Status: Cause of : Sepsis after BKA Hx Family Cardiac Disorders: Yes Hx Family Respiratory Disorders: Yes Hx Family Cancer: No Hx Family GI Disorders: No Hx Family Endocrine Disorder: Yes Hx Family Musculoskeletal Disorders: Yes Hx Family Neuromuscular Disorders: No Hx Family Neurologic Disorders: No Hx Family HEENT Disorders: No Hx Family Autoimmune Disorders: No Medications and Allergies Aspirin [Lo-Dose Aspirin EC] 81 mg PO DAILY 07/30/17 [History] Insulin ASPART [NovoLOG] 10 unit SQ BIDWM 07/30/17 [History] Ergocalciferol (VITAMIN D2) [Vitamin D2] 50,000 unit PO WE 09/24/17 [History] Insulin ASPART [NovoLOG] 15 unit SQ 1200 09/24/17 [History] Clopidogrel [Plavix] 75 mg PO DAILY #30 tablet 10/29/17 [Rx] Insulin Glargine,Hum.rec.anlog [Basaglar Kwikpen U-100] 30 unit SQ HS 02/01/18 [History] Mupirocin [Bactroban Oint] 1 appl TP TID 04/15/18 [History] Tramadol HCl [Ultram] 50 mg PO Q6H PRN 04/15/18 [History] Ondansetron ODT [Zofran ODT] 4 mg SL Q6HR #8 tab.rapdis 05/16/18 [Rx] Fluconazole [Diflucan] 100 mg PO DAILY 14 Days #14 tablet 05/24/18 [Rx] Lisinopril [Zestril] 20 mg PO DAILY 30 Days #30 tablet 05/24/18 [Rx] Metoclopramide [Reglan] 10 mg PO Q6HR PRN 30 Days #90 tablet 05/24/18 [Rx] Omeprazole [PriLOSEC] 40 mg PO DAILY@0730 05/24/18 [History] Allergy/AdvReac Type Severity Reaction Status Date / Time No Known Allergies Allergy Verified 05/11/18 09:42 Review of Systems All Systems: reviewed and no additional remarkable complaints except as stated Constitutional: malaise, no chills, no fever(s) Cardiovascular: chest pain, chest pain at rest, no dyspnea, no leg edema Integumentary: no rash Neurological: no behavioral changes Exam - Vital Signs Vital signs: Initial Vital Signs Temp Pulse Resp BP Pulse Ox 98.3 F 91 16 124/74 98 06/02/18 15:30 06/02/18 15:30 06/02/18 15:30 06/02/18 15:30 06/02/18 15:30 Vital Signs - Last 8 Hours Temp Pulse Resp BP Pulse Ox 06/03/18 07:40 98.2 F 85 17 147/78 98 06/03/18 03:35 97.9 F 81 16 143/73 97 Intake and Output 06/02/18 06/03/18 06/03/18 23:59 07:59 15:59 Intake Total 125 / 125 50 / 50 0 / 0 Output Total 300 / 300 Balance 125 / 125 -250 / -250 0 / 0 Intake: IV Fluids 125 / 125 50 / 50 Heparin 25,000 UNIT/500 ML D5W 125 / 125 50 / 50 25,000 unit In 500 ml @ 10.35 UNIT/KG/HR 19.999 mls/hr IVC . Q24H [facility] Rx#:[id number] Oral 0 / 0 Output: Straight Cath 300 / 300 Other: Meal Breakfast Percent of Meal Consumed 0% Weight 95.254 kg 96.2 kg Blood Glucose* 110 106 Patient Weight 06/03/18 23:59 Weight 96.2 kg - General Appearance General appearance: well-developed, well-nourished EENT: ATNC Neck: supple Respiratory: clear Cardiology: regular rate, regular rhythm, normal S1, normal S2 - Dialysis Access Dialysis Vascular Access: Venous Catheter Gastrointestinal: no guarding Integumentary: warm and dry Additional Comments: Sleeping through exam Results - Lab Results 06/03/18 04:43 06/03/18 04:43 Most recent lab results Calcium 7.8 mg/dL (8.6-10.3) L 06/03/18 04:43 Phosphorus 3.1 mg/dL (2.7-4.5) 06/03/18 04:43 Consult Discharge Plan - Plan Referrals: Miya Aden DO [Primary Care Provider] - 06/09/18 9:30 am (Please follow up as schedule) <Dixie Chow - Last Filed: 06/04/18 00:15> Date of Encounter: 06/03/18 Assessment and Plan (1) Hypertension Current Visit: No Status: Chronic Qualifiers: Hypertension type: essential hypertension Qualified Code(s): I10 - Essential (primary) hypertension (2) ESRD (end stage renal disease) on dialysis Current Visit: No Status: Chronic (3) Chest pain Current Visit: No Status: Acute Qualifiers: Chest pain type: unspecified Qualified Code(s): R07.9 - Chest pain, unspecified (4) Restless leg syndrome Current Visit: Yes Status: Acute Exam - Vital Signs Vital signs: Initial Vital Signs Temp Pulse Resp BP Pulse Ox 98.3 F 91 16 124/74 98 06/02/18 15:30 06/02/18 15:30 06/02/18 15:30 06/02/18 15:30 06/02/18 15:30 Vital Signs - Last 8 Hours Temp Pulse Resp BP Pulse Ox 06/03/18 19:59 98 F 86 18 120/62 93 06/03/18 16:42 98.5 F 74 17 120/77 98 Intake and Output 06/03/18 06/03/18 06/04/18 15:59 23:59 07:59 Intake Total 0 / 0 0 / 0 Balance 0 / 0 0 / 0 Intake: IV Fluids 0 / 0 Heparin 25,000 UNIT/500 ML D5W 0 / 0 25,000 unit In 500 ml @ 10.35 UNIT/KG/HR 19.999 mls/hr IVC . Q24H [facility] Rx#:[id number] Oral 0 / 0 Other: Meal Breakfast Percent of Meal Consumed 0% Blood Glucose* 137 129 Results - Lab Results 06/03/18 04:43 06/03/18 04:43 Most recent lab results Calcium 7.8 mg/dL (8.6-10.3) L 06/03/18 04:43 Phosphorus 3.1 mg/dL (2.7-4.5) 06/03/18 04:43 - Attending Attestation I examined this patient and my medical decision-making was reviewed with the Resident Physician/BALANCE WHEEL HAND FILER. I agree with the documented findings, disposition and treatment plan as described except to the extent set forth below. 53 y o male with PMH of DM, HTN, CAD, ESRd on HD and recently treated for gastric ulcers and esophageal nikolsa admitted overnight after terminating his HD with 18mins left for chest pain, mid sternal and pleuritic (worse with coughing and deep breaths). Pt seen and examined still having some chest pain, heparin gtt on board. On exam: Middle aged male NAD with lungs clear, heart S1S2 and LE with no edema but chronic venous changes noted. Cardiac followup today. Next HD planned tomorrow. Lytes stable. Renal diet advised.
[2018-06-03] MEDS ORDERED: traMADol 50 MG TABLET PO PRN (09:23)
--- NOTE | 2018-06-03 10:00 | Cardiology Consult Note ---
<Quentin Diaz - Last Filed: 06/03/18 10:01> Date of Encounter: 06/03/18 Time of Encounter: 08:20 Assessment and Plan (1) Chest pain Current Visit: No Status: Acute C/o atypical chest pain symptoms although he states they are the same as he felt prior to his last PCI 10/2017. Plavix recently stopped prematurely due to GI bleed. Troponin 0.04 x3 is non-diagnostic in the setting of ESRD. EKG shows NSR with no acute St changes. WIth concern for gastric ulcers and recent GI bleed we will attempt medical management. Start imdur. Continue asa, statin, bb. Check limited TTE. Qualifiers: Chest pain type: unspecified Qualified Code(s): R07.9 - Chest pain, unspecified (2) CAD (coronary artery disease) Current Visit: No Status: Chronic H/o CAD with PCI to the LCx artery 10/2017. There was DM small vessel disease with 70% stenosis RPDA remaining. 80% stenosis 2nd OM. LHC completed for abnormal stress test. Recommend anti-anginal therapy. Start imdur. Continue asa, statin, bb. Qualifiers: Coronary Disease-Associated Artery/Lesion type: [place] artery [place] vs. transplanted heart: [place] heart Associated angina: without angina Qualified Code(s): I25.10 - Atherosclerotic heart disease of [place] coronary artery without angina pectoris Discussion w patient/family: The assessment and plan as outlined above was discussed with the patient and/or family members who expressed understanding and agreement. All questions were answered. Thank you for involving us in the care of your patient. Please call with any questions. History of Present Illness Consult date: 06/03/18 Requesting physician: Stanley Nunes Consult reason: Chest pain Chief complaint: constant chest pain History of present illness: Mr. Hernandez is a 53 year old male with past medical history of CAD s/p PCI to the mLcx artery 10/2017, DM type II, ESRD on dialysis who presents with the c/o chest pain starting yesterday. The pain started when he was undergoing out-pt dialysis. He describes the pain as a constant mid sternal to left sided chest squeezing. The pain increases with deep breaths or cough. States that th pain is the same as what he felt prior to his last stent. He was hospitalized three weeks ago with GI bleed. He underwent EGD and was found to have gastric erosions and ulcers. He was treated with PPI. he states his PCP recommended he stop plavix at his out pt appt. Records reviewed and I did not see this recommendation in PCP note. He states that after his EGD he was unable to eat d/t constant nausea for three weeks. He continues to have nausea. He is noted to have lost 6 kg in three weeks. Past Med Surg Social Fam HX - Past Medical History Medical history: coronary artery disease, diabetes, dialysis, hypertension, renal disease Additional medical history: Gastric ulcers. Type II Diabetic Psychiatric history: no psych history - Past Surgical History Surgical History: cholecystectomy, vascular surgery, other Additional surgical history: 1 cardiac stent - Social History Smoking Status: Never smoker Smokeless Tobacco Status: No Alcohol use: none Drug use: none - Family History Mother Adopted: No Living Status: Hx Family Cardiac Disorders: Yes (mother stroke) Hx Family Respiratory Disorders: Yes (Dad asthma copd) Hx Family Cancer: Yes (prostate, pancreatic) Hx Family GI Disorders: No Hx Family Endocrine Disorder: Yes (DM) Hx Family Neuromuscular Disorders: No Hx Family Neurologic Disorders: No Hx Family HEENT Disorders: No Hx Family Autoimmune Disorders: No Father Adopted: No Living Status: Cause of : Sepsis after BKA Hx Family Cardiac Disorders: Yes Hx Family Respiratory Disorders: Yes Hx Family Cancer: No Hx Family GI Disorders: No Hx Family Endocrine Disorder: Yes Hx Family Musculoskeletal Disorders: Yes Hx Family Neuromuscular Disorders: No Hx Family Neurologic Disorders: No Hx Family HEENT Disorders: No Hx Family Autoimmune Disorders: No Medications and Allergies Aspirin [Lo-Dose Aspirin EC] 81 mg PO DAILY 07/30/17 [History] Insulin ASPART [NovoLOG] 10 unit SQ BIDWM 07/30/17 [History] Ergocalciferol (VITAMIN D2) [Vitamin D2] 50,000 unit PO WE 09/24/17 [History] Insulin ASPART [NovoLOG] 15 unit SQ 1200 09/24/17 [History] Clopidogrel [Plavix] 75 mg PO DAILY #30 tablet 10/29/17 [Rx] Insulin Glargine,Hum.rec.anlog [Basaglar Kwikpen U-100] 30 unit SQ HS 02/01/18 [History] Mupirocin [Bactroban Oint] 1 appl TP TID 04/15/18 [History] Tramadol HCl [Ultram] 50 mg PO Q6H PRN 04/15/18 [History] Ondansetron ODT [Zofran ODT] 4 mg SL Q6HR #8 tab.rapdis 05/16/18 [Rx] Fluconazole [Diflucan] 100 mg PO DAILY 14 Days #14 tablet 05/24/18 [Rx] Lisinopril [Zestril] 20 mg PO DAILY 30 Days #30 tablet 05/24/18 [Rx] Metoclopramide [Reglan] 10 mg PO Q6HR PRN 30 Days #90 tablet 05/24/18 [Rx] Omeprazole [PriLOSEC] 40 mg PO DAILY@0730 05/24/18 [History] Allergy/AdvReac Type Severity Reaction Status Date / Time No Known Allergies Allergy Verified 05/11/18 09:42 All Systems Review: The remainder of the systems were reviewed and are negative Physical Examination Vital Signs, Last 4 Hours Temp Pulse Resp BP Pulse Ox 06/03/18 07:40 98.2 F 85 17 147/78 98 General: Conversant, No Apparent Distress HEENT: Atraumatic, Normocephaly, Mucus Membranes Moist Neck: No JVD, Normal carotid pulses Cardiac: Reg Rate and Rhythm, Normal S1 and S2, No Murmur Lungs: Normal Breath Sounds, No Wheeze, Rales, Rhonchi Neuro: Alert and responsive, No focal deficits noted Abdomen: Soft, Non-Tender Skin: Other (BLE with ecchymosis and scabbed areas. ) Musculoskeletal: No Chest Wall Tenderness Extremities: No Clubbing, No Cyanosis, No Edema, Normal Pulses Results 06/03/18 04:43 06/03/18 04:43 Lab Results 06/02/18 06/02/18 06/02/18 15:23 15:23 15:23 WBC 7.4 Hgb 11.6 L Hct 34.8 L Plt Count 211 Sodium 136 Potassium 3.8 Chloride 103 Carbon Dioxide 28 BUN 37 H Creatinine 4.04 H Glucose 199 H Calcium 7.8 L Total Bilirubin AST ALT Alkaline Phosphatase Troponin I 0.04 H* B-Natriuretic Peptide 329 H 06/02/18 06/03/18 06/03/18 21:46 04:43 04:43 WBC 5.9 Hgb 10.5 L Hct 31.6 L Plt Count 201 Sodium Potassium Chloride Carbon Dioxide BUN Creatinine Glucose Calcium Total Bilirubin AST ALT Alkaline Phosphatase Troponin I 0.04 H* 0.04 H* B-Natriuretic Peptide 06/03/18 04:43 WBC Hgb Hct Plt Count Sodium 136 Potassium 4.5 Chloride 101 Carbon Dioxide 23 BUN 44 H Creatinine 4.73 H Glucose 119 H Calcium 7.8 L Total Bilirubin 0.3 AST 17 ALT 9 Alkaline Phosphatase 80 Troponin I B-Natriuretic Peptide - Imaging and Cardiology Echo: report reviewed - EKG Interpretation EKG results cardiology: personally reviewed Consult Discharge Plan - Plan Referrals: Miya Aden, [Primary Care Provider] - <Leyda Bravo - Last Filed: 06/03/18 14:56> Date of Encounter: 06/03/18 - Attending Attestation Patient was seen and evaluated independently by me. Findings, assessment and plan were discussed at length with patient, questions answered. Agree with nurse practitioner's/resident's documentation. Addition as follows, 53 yoCM CAD [place]-LCx with mild-mod OM stenosis , PUD, ESRD on HD, DM2. P/w moderate chest pressure similar to prior angina during HD yesterday after holding plavix 2wks for PUD and missing 1 day HD. CP persistent, partial relief by NTG SL. Trop mild elevation. TTE EF 45-50%, RV nl, valves ok, no PH. VSS, CTA, RR, pedal B/L edema A: NSTEMI/unstable angina off DAPT 7 month of PCI of LCx with moderate dz in OM ESRD on HD P: [facility] scheduled HD tomorrow. anti-anginal meds optimization Leyda Bravo MD, PhD Assessment and Plan Discussion w patient/family: The assessment and plan as outlined above was discussed with the patient and/or family members who expressed understanding and agreement. All questions were answered. Thank you for involving us in the care of your patient. Please call with any questions. History of Present Illness History of present illness: Mr. Hernandez is a 53 year old male All Systems Review: The remainder of the systems were reviewed and are negative Results 06/03/18 04:43 06/03/18 04:43 Lab Results 06/02/18 06/02/18 06/02/18 15:23 15:23 15:23 WBC 7.4 Hgb 11.6 L Hct 34.8 L Plt Count 211 Sodium 136 Potassium 3.8 Chloride 103 Carbon Dioxide 28 BUN 37 H Creatinine 4.04 H Glucose 199 H Calcium 7.8 L Total Bilirubin AST ALT Alkaline Phosphatase Troponin I 0.04 H* B-Natriuretic Peptide 329 H 06/02/18 06/03/18 06/03/18 21:46 04:43 04:43 WBC 5.9 Hgb 10.5 L Hct 31.6 L Plt Count 201 Sodium Potassium Chloride Carbon Dioxide BUN Creatinine Glucose Calcium Total Bilirubin AST ALT Alkaline Phosphatase Troponin I 0.04 H* 0.04 H* B-Natriuretic Peptide 06/03/18 04:43 WBC Hgb Hct Plt Count Sodium 136 Potassium 4.5 Chloride 101 Carbon Dioxide 23 BUN 44 H Creatinine 4.73 H Glucose 119 H Calcium 7.8 L Total Bilirubin 0.3 AST 17 ALT 9 Alkaline Phosphatase 80 Troponin I B-Natriuretic Peptide
[2018-06-03] MEDS: Isosorbide MONOnitrate (24 HR) 30 MG TAB.ER.24H PO SCH (10:46)
[2018-06-03] MEDS: Fluconazole 100 MG TABLET PO SCH (10:46)
[2018-06-03] MEDS: Aspirin Enteric Coated 81 MG Tablet PO SCH (10:46)
--- NOTE | 2018-06-03 10:48 | Internal Med Progress Note ---
Hospitalist Progress Note - Encounter Date of Encounter: 06/03/18 Time of Encounter: 10:47 - Subjective Interval History: I have seen and evaluated this patient at bedside. Patient reports persistent chest discomfort. he denies pain, but reports a discomfort similar to when he had stent placed. denies shortness of breath. reports nausea and intermittent vomiting for the past couple of days. - Exam Vitals: Temp Pulse Resp BP Pulse Ox 98.2 F 85 17 147/78 98 06/03/18 07:40 06/03/18 07:40 06/03/18 07:40 06/03/18 07:40 06/03/18 07:40 Exam: Vitals: Reviewed General: Alert and oriented x4. In mild distress due to chest discomfort Skin: Normal color, no rash, no lesions. HEENT: EOM, pupils equal, round and reactive. Cardiovascular: RRR, normal S1 & S2, no rubs, murmurs or gallops. Lungs: CTA b/l, no wheezes or crackles. Abdomen: Obese, soft, non-tender, no rigidity. NABS in all 4 quadrants Extremities: chronic skin changes in the lower ext b/l. Neurological: Normal cognition and motor skills. Rest of the physical exam is non contributory - Assessment and Plan (1) Chest pain Current Visit: No Status: Acute Assessment and Plan: patient still complaining of chest discomfort. Atypical. Plan Dual anti-platelets therapy resumed per cardiology TTE ordered on a bb Heparin drip discontinued scheduled for C on Nitroglycerin 0.4mg SubL Q5mins x3 for chest pain prn started on isosorbide 30mg/PO daily (2) Nausea Current Visit: Yes Status: Acute Assessment and Plan: patient reports chronic nausea. denies vomiting episodes today. on Ondansetron 4mg/IV Q8HR PRN. (3) Restless leg syndrome Current Visit: Yes Status: Acute Assessment and Plan: patient started on Ropinirole 0.25mg/PO HS (4) Esophageal candidiasis Current Visit: No Status: Acute Assessment and Plan: patient on fluconazole 100mg/PO daily. 3 more days left to complete therapy. (5) CAD (coronary artery disease) Current Visit: No Status: Chronic Assessment and Plan: patient on dual antiplatelets therapy, plus high dose statin (6) Diabetes Current Visit: No Status: Chronic Assessment and Plan: uncontrolled diabetes. on a carb controlled diet. started on levemir 10 units hs, plus lispro low dose sliding scale ac. (7) ESRD (end stage renal disease) Current Visit: No Status: Chronic Assessment and Plan: Renal replacement therapy per nephrology. On nephro protective strategies (8) Hypertension Current Visit: No Status: Chronic Assessment and Plan: BP controlled. Patient on lisinopril, metoprolol and isosorbide. DVT Prophylaxis: On Heparin subQ - Summary of Assessment and Plan Summary of Assessment and Plan: Patient to remain in the hospital due to chest pain. Potential discharge tomorrow. - Time Spent with Patient Total time spent is greater than 50% in coordination of care (as documented) at patient's floor/unit and/or counseling patient: Greater than 35 minutes (40) Plan of Care Discussed with: patient (and the nurse) Internal Medicine: Result - Labs CBC & Chem 7: 06/03/18 04:43 06/03/18 04:43 Labs: Short CBC 06/02/18 06/03/18 Range/Units 15:23 04:43 WBC 7.4 5.9 (4.3-11.1) K/mcL Hgb 11.6 L 10.5 L (12.9-16.9) g/dL Hct 34.8 L 31.6 L (37.5-50.1) % Plt Count 211 201 (140-400) K/mcL Neutrophils # 5.1 (1.6-8.9) K/mcL BMP 06/02/18 06/03/18 15:23 04:43 Sodium 136 136 Potassium 3.8 4.5 Chloride 103 101 Carbon Dioxide 28 23 BUN 37 H 44 H Creatinine 4.04 H 4.73 H Glucose 199 H 119 H Calcium 7.8 L 7.8 L Cardiac Enzymes 06/02/18 06/02/18 06/03/18 Range/Units 15:23 21:46 04:43 Troponin I 0.04 H* 0.04 H* 0.04 H* (< 0.04) ng/mL Liver Function 06/03/18 Range/Units 04:43 Total Bilirubin 0.3 (0.3-1.0) mg/dL AST 17 (13-39) Units/L ALT 9 (7-52) Units/L Alkaline Phosphatase 80 (34-104) Units/L Albumin 3.1 L (3.5-5.7) g/dL - Impressions Impressions Chest X-Ray 06/02/18 14:57 IMPRESSION: No acute process. D/ / Richard Magana MD / Richard Magana MD Interpreting Provider: Richard Magana MD Consult Discharge Plan - Plan Referrals: Miya Aden DO [Primary Care Provider] - (1) Chest pain Qualifiers: Chest pain type: unspecified Qualified Code(s): R07.9 - Chest pain, unspecified (5) CAD (coronary artery disease) Qualifiers: Coronary Disease-Associated Artery/Lesion type: [place] artery [place] vs. transplanted heart: [place] heart Associated angina: without angina Qualified Code(s): I25.10 - Atherosclerotic heart disease of [place] coronary artery without angina pectoris (6) Diabetes Qualifiers: Diabetes mellitus type: type 2 Diabetes mellitus residential insulin use: without residential use Diabetes mellitus complication status: without complication Qualified Code(s): E11.9 - Type 2 diabetes mellitus without complications (8) Hypertension Qualifiers: Hypertension type: essential hypertension Qualified Code(s): I10 - Essential (primary) hypertension
[2018-06-03] MEDS ORDERED: Perflutren Lipid Microsphere 1.3 ML in 0.9 % Sodium Chloride 8.7 ML IVP ONE (11:29)
[2018-06-03] MEDS ORDERED: Perflutren Lipid Microsphere 2 ML VIAL ONE (11:37)
[2018-06-03] MEDS ORDERED: ISOVUE-370 200 ML INFUS..BTL ONE (11:50)
[2018-06-03] MEDS ORDERED: Heparin 1,000 UNITS/500 mL 500 ML ONE (11:50)
[2018-06-03] MEDS ORDERED: Nitroglycerin 1,000 MCG/10 ML VIAL IV ONE (11:50)
[2018-06-03] MEDS ORDERED: 0.9 % Sodium Chloride 1,000 ML ONE ×2 (11:50→12:35)
[2018-06-03] MEDS ORDERED: *HR* Heparin 10,000 UNIT/10 ML VIAL ONE (11:50)
--- NOTE | 2018-06-03 12:55 | Pre-Sedation Evaluation ---
Pre-sedation evaluation - Pre-sedation checklist Procedure: fistulagram Recent Vitals: Last Vital Signs Temp 98.2 F 06/03/18 07:40 Pulse 85 06/03/18 07:40 Resp 17 06/03/18 07:40 BP 147/78 06/03/18 07:40 Pulse Ox 98 06/03/18 07:40 H&P (including ROS) documented in medical record: Yes Previous reaction to sedatives/anesthetics: No Dietary Status: NPO after Midnight Airway Assessment: Patient can open mouth completely, TMJ function normal Dentition: No loose teeth or bridges ASA Classification *see protocol: CLASS II-Mild systemic disease Plan of Care: Pt appropriate candidate for procedure/moderate/conscious sedation Cardiac Registry (Cardio Only) - Functional Capacity Functional Capacity: >=4 METS without symptoms - Clincal Frailty Scale Clinical Frailty Scale: Well
[2018-06-03] MEDS ORDERED: *HR* Midazolam HCl 2 MG/2 ML VIAL ONE (13:02)
--- NOTE | 2018-06-03 13:32 | Event Note ---
Date of Encounter: 06/03/18 Time of Encounter: 13:29 - Cardiology Event Note Cath completed LVEF 45% with inferior akinetic region. RCA : mild proximal and mid disease. PIG small size with diffuse 90% stenosis. LCA: Left main is normal. Proximal LAD plaque with mid and distal lad diffuse disease and small vessel. Circ: Proximal circ previous stent:no restenosis. Perclose right groin Recommendation:Diffuse cad with small vessel disease. Continue meds. Addition of ranexa. Titrate bblocker as bp allows Continue risk facator modification with statin and antiplt therapy.
--- NOTE | 2018-06-03 14:56 | Invasive Diagnostic Lab Proc ---
Name: Abelardo Hernandez Date of Study: 06/03/2018 Date: 1965 Ht: 70.1in Medical Record#: [id number] Age: 53 Wt: 212.08lb Gender: Male BSA: 2.14 Order #: [id number] BMI: 30.36 Physicians Procedure Physician: Tutu Jc MD Referring MD: Referring MD: Staff Name Position Time In Mick, Padilla WINKLER Monitor 01:04 PM Keegan Hua RT (R) Scrub 01:04 PM Ruth Dobbs RN Assistant Head Cashier 01:05 PM Indications Indication Unstable Angina Procedures Performed Procedure L HRT ARTERY/VENTRICLE ANGIO Pre-Procedure Checklist Informed consent is complete signed and on chart. H&P is on chart. ID band is on and ID verified with patient. Patient NPO for procedure The procedure was described for the patient and questions were answered. Blood Pressure: 147/78 ECG is on chart. Rhythm: NSR Plan of Care Patient will tolerate the procedure without complications. Adequate level of comfort will be maintained. Hemodynamics will remain stable Patient will recover from procedure without complications. Respiratory function will be maintained. Cardiac rhythm will remain stable. Patient temperature will be maintained. Patient and/or family have verbalized understanding of the procedure. Patient Education Chief Complaint/Reason for Test: Cardiac Cath Developmental Category: Adult (18-64 years) Developmentally Appropriate for Age: Yes Learning Barriers: None Education Needs: Procedure Education Method: Verbal Information Taught: Cardiac Cath Educational Evaluation: Able to repeat information Intravenous Access Time IV Size Location DC'd Fluid/Drip Rate Units RN 20g 1 1/" Patent On Arrival Rt Antecubital 0.9NaCl Ruth Dobbs RN Allergies No Known Allergies Vital Signs Time BP (mmHg) HR (bpm) O2 Sat. RR (bpm) LOC 01:06 PM / % 5 = Fully awake and oriented or at pre-proc level 01:06 PM / % 4 = Oriented but drowsy 01:06 PM 169 / 81 99 99 % 01:10 PM 162 / 74 66 100 % 28 01:15 PM 160 / 73 74 100 % 21 01:20 PM 142 / 70 68 100 % 24 Procedural Medications Time Medication Dose Units Method Given By 01:06 PM Oxygen 2 L/min nasal cannula Ruth Dobbs RN 01:07 PM Versed 2 mg Intravenous Ruth Dobbs RN 01:09 PM Lidocaine 2% 10 ml Subcutaneous Tutu Jc MD ASA Classification: CLASS II- Mild systemic disease (i.e. well-controlled diabetes, hypertension, asthma, cigarette smoking) Ruben Score Preprocedure Postprocedure Activity 2- Moves 4 extremities sustained head lift Activity 2- Moves 4 extremities sustained head lift Circulation 2- SBP +/= 20 points of pre-anesthetic level Circulation 2- SBP +/= 20 points of pre-anesthetic level Consciousness 2- Awake and alert oriented x 3 Consciousness 2- Awake and alert oriented x 3 O2 Saturation 2- Able to maintain O2 satruation of 92% on room air O2 Saturation 2- Able to maintain O2 satruation of 92% on room air Respiratory 2- Able to deep breathe and cough well Respiratory 2- Able to deep breathe and cough well Total Score 10 Total Score 10 Contrast Agent: Isovue Diagnostic Contrast: 65 ml Total Contrast: 65 ml Fluoro Dose: 5393 mGy Procedure Log Time Note Enter By 01: PM CathStat : PM Vitals capture started with the following parameters, Patient=Adult, Interval=5 min, Initial Ywpqjzrd=490 mmHg, Deflation Rate=5 mmHg, Cuff placed on Right Arm 01: PM Pt arrived to label designer 2 at 13:04 [facility] : PM Padilla Barton RN Position: Monitor Time in: 13:[facility]:05 PM Keegan Hua (R) Position: Scrub Time in: 13:04 [facility]: PM Ruth Dobbs RN Position: Assistant Head Cashier Time in: 13:05 [facility] :05 PM Patient charges- Angio tray pack, Navilyst 3mm J, Pulse Oximetry and ACIST tubing and transducer [facility] : PM HR=99 bpm, CSPM=241/81 mmhg, SpO2=99.0 %, Comment=nsr : PM Hair removed from procedure site in procedure lab using clippers. Bilateral groin prepped with Chloraprep by Keegan Hua (R), then patient was draped. Skin intact. [facility] : PM Physician arrived 13:06 [facility] : PM Chuy completed [facility] : PM Sign in performed according to hospital policy. Informed consent was obtained. jcallihan 01:06 PM Procedure start 13:06 jcallihan 01:06 PM ASA Class CLASS II- Mild systemic disease (i.e. well-controlled diabetes, hypertension, asthma, cigarette smoking) jcallihan :06 PM Time: 13:06 Patient comfortable and pain free: Yes jcallihan :06 PM Time: 13:06LOC: 5 = Fully awake and oriented or at pre-proc level jcallihan : PM Time: 13:06 Oxygen on at 2 L/min per nasal cannula by Ruth Dobbs RN jctony : PM Time: 13:07 Versed 2 mg Intravenous Given by Ruth Dobbs RN : PM Pressure channel 2 zeroed. :09 PM Time out was performed according to hospital policy. Conscious sedation and anesthesia was achieved (see medication log with in this report above) jcallihan : PM Time: 13:09 10 ml Lidocaine 2% to right groin Subcutaneous Given by Tutu Jc MD jcallihan 01:10 PM HR=66 bpm, JOUM=506/74 mmhg, PlT6=770.0 %, Resp=28 B/min, Comment=nsr 01:10 PM Access obtained by percutaneous puncture. 6Fr 10cm Terumo Allyn sheath placed in right Femoral artery. [id number] jcallihan 01:10 PM 5Fr FR 4 catheter inserted over the wire DN jcallihan 01:12 PM RCA angiography performed in multiple views. jcallihan 01:12 PM Recorded Pressure: Ao, HR=73, Condition=Condition 1 (Aorta) Ao 125/72/93 01:13 PM Catheter removed jcallihan 01:13 PM 5Fr FL 4 catheter inserted over the wire DN jcallihan 01:15 PM HR=74 bpm, TEKD=270/73 mmhg, PdK1=228.0 %, Resp=21 B/min 01:15 PM LCA angiography performed in multiple views. jcallihan 01:16 PM Catheter removed jcallihan :16 PM 5Fr Pigtail catheter inserted over the wire [facility] jcallihan :16 PM Catheter crossed the aortic valve and was selectively placed in the left ventricle. Pressures recorded on pullback for left heart catheterization. jcallihan 01:16 PM Recorded Pressure: LV, HR=76, Condition=Condition 1 (Left Ventricle) LV 125/1/7 01:17 PM Recorded Pressure: LV, Ao, HR=70, Condition=Condition 1 (Left Ventricle) LV 124/3/10, (Aorta) Ao 131/54/93 01:17 PM LV gram hand injected 10ml contrast. jcallihan 01:18 PM Catheter removed jcallihan 01:18 PM right groin injected, shots obtained. jcallihan 01:19 PM Wire removed jcallihan 01:19 PM Procedure completed at 13:19 06/03/2018 jcallihan 01:20 PM HR=68 bpm, TKFM=827/70 mmhg, CeJ0=186.0 %, Resp=24 B/min, Comment=nsr 01:22 PM Time: 13:06LOC: 4 = Oriented but drowsy jcallihan :22 PM Time: 13:06 Patient comfortable and pain free: Yes jcallihan :25 PM Vitals capture stopped. 01:26 PM Sign out completed: Radiation Dose 490.33 mGy, 5393.09 cGy/cm2 Fluoro Time: 1.2 Isovue 370 - 200ml contrast 65 ml given by Tutu Jc MD. Complications: None. The patient was discharged out of the laboratory engineer in stable condition. Sedation minutes 14. Cardiac Rehab Consult needed: No. Confirmed administered medications: Yes jcallihan 01:27 PM Isovue 370 - 200ml,1 Bottle(s) used. jcallihan 01:28 PM Arterial sheath pulled, Perclose closure device used and was Successful [id number] S/N. jcallihan 01:28 PM Estimated Blood Loss: minimal jcallihan 01:28 PM Post ECG NSR jcallihan 01:28 PM Post Blood Pressure 142/70 jcallihan 01:28 PM 13:28 Post Pulses Bilateral DP & PT 2+ jcallihan 01:28 PM 13:28 Post Pulses Bilateral radial 2+ jcallihan 01:28 PM Information taught Cardiac Cath and Perclose jcallihan 01:29 PM Education needs Procedure, Plan of Care, and Responsibilities of Patient in Care jcallihan 01:30 PM Learning barriers :None jcallihan 01:30 PM Education Methods Verbal jcallihan 01:30 PM Education evaluation Able to repeat information jcallihan 01:31 PM Site status No bleeding/hematoma - Rt Groin as reported by Keegan Hua RT (R) at 13:30 jcallihan 01:31 PM Opsite applied jcallihan 01:31 PM Report given to Argelia WINKLER Pt taken to 2A Room #22. 13:31 jcallihan 01:33 PM Plavix, Effient or Brilinta given No jcallihan 01:33 PM No family present at this time. jcallihan 01:33 PM Patient out of room: 13:33 jcallihan 01:33 PM Complications: None jcallihan 01:34 PM Coronary Dominance: right jcallihan 01:34 PM Did you address TERESA flow and Dominance? Yes jcallihan 01:35 PM Lesion found in Proximal RCA. Pre Stenosis: 20 Pre TERESA Flow: [email or web address] 01:36 PM Lesion found in Mid RCA. Pre Stenosis: 30 Pre TERESA Flow: jcallihan 01:36 PM Lesion found in Distal RCA. Pre Stenosis: 95 Pre TERESA Flow: jcallihan 01:36 PM Lesion found in Mid LAD. Pre Stenosis: 80 Pre TERESA Flow: jcallihan 01:36 PM Lesion found in Distal LAD. Pre Stenosis: 80 Pre TERESA Flow: jcallihan 01:36 PM Lesion found in 1st Diagonal. Pre Stenosis: Pre TERESA Flow: jcallihan 01:36 PM Lesion found in Distal Circumflex. Pre Stenosis: 15 Pre TERESA Flow: jcallihan 01:36 PM Lesion found in 1st Marginal. Pre Stenosis: 20 Pre TERESA Flow: jcallihan 01:37 PM Lesion found in Right PDA. Pre Stenosis: 95 Pre TERESA Flow: jcallihan 01:37 PM Lesion found in Ramus . Pre Stenosis: 60 Pre TERESA Flow: jcallihan 01:37 PM Mid/Distal Left Anterior Descending Coronary Artery and diagonal branches with 80% stenosis. If graft is supplying this area, 0 % stenosis jcallihan 01:37 PM Circumflex, Obtuse Marginal, Left Posterior Descending, and Left Posterolateral Coronary Arteries with 20 % stenosis. If graft is supplying this area, 0 % stenosis jcallihan 01:37 PM Right Coronary, Right Posterior Descending Arteries with Right Posterolateral and Acute Marginal branches with 95 % stenosis. If graft is supplying this area, 0 % stenosis iva 01:37 PM Ramus with 60% stenosis. If graft is supplying this area, 0 % stenosis iva Complications Complication None None Hemodynamics Pressures Site Systolic/A Wave Diastolic/V Wave Mean AO 125 72 93 LV 125 1 7 LV 124 3 10 AO 131 54 93 Post Procedure Information Blood Pressure: 142/70 mmHg Rhythm: NSR Post procedural instructions were given Closure Device Time Device Success/Fail 06/03/2018 1:28:00 PM Perclose ProGlide Successful Site Checks Time Location Status Staff Sheath In? Note 01:30 PM Rt Groin No bleeding/hematoma Keegan Hua RT (R) Pulses Time Site Pre-Procedure Post-Procedure Note Bilateral DP & PT 2+ Bilateral radial 2+ 1:28:00 PM Bilateral DP & PT 2+ 1:28:00 PM Bilateral radial 2+ Updated by Padilla Barton RN on 06/03/2018 1:47:33 PM electronically signed on 06/03/2018 2:46:21 PM with status of Final
[2018-06-03] MEDS: *HR* Heparin 5,000 UNIT/ML VIAL SQ SCH (18:19)
[2018-06-03] MEDS: Ranolazine 500 MG TAB.ER.12H PO SCH (20:47)
[2018-06-03] MEDS ORDERED: Insulin DETEMIR 100 UNIT/ML X5UNITS SQ SCH (21:00)
[2018-06-04] MEDS: Insulin LISPRO 300 UNITS/3 ML VIAL SQ SCH ×3 (02:15→13:35)
--- NOTE | 2018-06-04 03:26 | Electrocardiograph Report ---
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
[2018-06-04 05:31] LABS: Calcium 7.8 mg/dL (8.6-10.3); Magnesium 1.7 mg/dL (1.6-2.6); Phosphorous 5.1 mg/dL (2.7-4.5); Potassium 4.6 mEq/L (3.5-5.1)
[2018-06-04] MEDS: *HR* Heparin 5,000 UNIT/ML VIAL SQ SCH (06:17)
[2018-06-04] MEDS ORDERED: 0.9 % Sodium Chloride 1,000 ML ONE (09:29)
[2018-06-04] MEDS: Aspirin Enteric Coated 81 MG Tablet PO SCH (09:33)
[2018-06-04] MEDS: Ranolazine 500 MG TAB.ER.12H PO SCH (09:33)
[2018-06-04] MEDS: Fluconazole 100 MG TABLET PO SCH (09:33)
[2018-06-04] MEDS: Isosorbide MONOnitrate (24 HR) 30 MG TAB.ER.24H PO SCH (09:33)
[2018-06-04] MEDS ORDERED: 0.9 % Sodium Chloride 250 ML IVC PRN ×2 (09:50→11:23)
[2018-06-04] MEDS ORDERED: 0.9 % Sodium Chloride 1,000 ML PRIME SCH (10:00)
--- NOTE | 2018-06-04 10:03 | Cardiology Progress Note ---
Date of Encounter: 06/04/18 Time of Encounter: 09:30 Assessment and Plan (1) Chest pain Current Visit: No Status: Acute C/o atypical chest pain symptoms although he states they are the same as he felt prior to his last PCI 10/2017. Plavix recently stopped prematurely due to GI bleed. Denies recurrent signs of bleeding on plavix. Troponin 0.04 x3 is non-diagnostic in the setting of ESRD. EKG shows NSR with no acute St changes. LHC completed yesterday showing patent LCx artery stent and diffuse small vessel CAD. TTE Normal sinus rhythm vs ectopic atrial rhythm. Occasional ventricular ectopy. LVEF 45-50%. Definity echo contrast was used. Low normal to mildly reduced global LV systolic function. Mild left ventricular diastolic dysfunction. Normal right ventricular structure and function. No significant valvular dysfunction. No pulmonary hypertension. Recommended to start ranexa and imdur yesterday. Chest pain improving. Increase as tolerated. Will increase ranexa to 1000mg BID and imdur to 60 mg daily. Continue asa, plavix, statin, bb. Out-pt f/u will be coordinated. Qualifiers: Chest pain type: unspecified Qualified Code(s): R07.9 - Chest pain, unspeci fied (2) CAD (coronary artery disease) Current Visit: No Status: Chronic H/o CAD with PCI to the LCx artery 10/2017. There was DM small vessel disease with 90% stenosis RPDA remaining. 80% stenosis 2nd OM. C completed for abnormal stress test at that time. Repeat [facility] this admit shows patent LCx artery stent and diffuse small vessel disease. EF milfly decreased at 45%. Recommend anti-anginal therapy. Start imdur. Continue asa, statin, bb. Qualifiers: Coronary Disease-Associated Artery/Lesion type: [place] artery [place] vs. transplanted heart: [place] heart Associated angina: without angina Qualified Code(s): I25.10 - Atherosclerotic heart disease of [place] coronary artery without angina pectoris (3) Cardiomyopathy Current Visit: Yes Status: Acute Mild ischemic cardiomyopathy with EF 45% on LHC and 45-50% on TTE. Acute HFrEF. Only mild fluid overload seen on exam. Pt due for dialysis this morning. Change lopressor to toprol xl. Add low dose lisinopril. Low sodium diet. Fluid status per nephrology. Qualifiers: Cardiomyopathy type: ischemic Qualified Code(s): I25.5 - Ischemic cardiomyopathy Discussion w patient/family: The assessment and plan as outlined above was discussed with the patient and/or family members who expressed understanding and agreement. All questions were answered. Thank you for involving us in the care of your patient. Please call with any questions. Subjective Principal diagnosis: chest pain Interval history: Mr. Hernandez is ambulating in his room on my exam. He states chest pain has improved but he continues to have some constant chest pressure. Denies dizziness or lightheadedness. Objective Vital Signs, Last 4 Hours Temp Pulse Resp BP Pulse Ox 06/04/18 07:16 98.7 F 69 18 136/82 98 General: Conversant, No Apparent Distress HEENT: Atraumatic, Normocephaly, Mucus Membranes Moist Neck: No JVD, Normal carotid pulses Cardiac: Reg Rate and Rhythm, Normal S1 and S2, No Murmur Lungs: Normal Breath Sounds, No Wheeze, Rales, Rhonchi Neuro: Alert and responsive, No focal deficits noted Abdomen: Soft, Non-Tender Skin: Other (BLE with purple discoloration and multiple scabbed areas. ) Musculoskeletal: No Chest Wall Tenderness Extremities: No Clubbing, No Cyanosis, No Edema, Normal Pulses Results 06/03/18 04:43 06/04/18 04:28 Lab Results 06/04/18 04:28 Sodium 136 Potassium 4.6 Chloride 102 Carbon Dioxide 25 BUN 55 H Creatinine 6.26 H Glucose 147 H Calcium 7.8 L Magnesium 1.7 - Imaging and Cardiology Cardiac cath: report reviewed - EKG Interpretation EKG results cardiology: personally reviewed Consult Discharge Plan - Plan Referrals: Miya Aden DO [Primary Care Provider] - 06/09/18 9:30 am (Please follow up as schedule)
[2018-06-04] MEDS ORDERED: Isosorbide MONOnitrate (24 HR) 30 MG TAB.ER.24H PO SCH (10:15)
[2018-06-04] MEDS ORDERED: Metoprolol XL (24 HR) Succ 25 MG TAB.ER.24H PO SCH (10:15)
--- NOTE | 2018-06-04 11:09 | Discharge Summary ---
- NOTES TO OUTPATIENT PROVIDER Notes to Outpatient Provider: follow up with cardiology as outpatient within a week of hospital discharge Orders not resulted at time of discharge: Pending orders 06/05/18 04:00 Chem 7 [Basic Metabolic Panel] AM 0400 Complete Blood Count w/o Diff [HEME] AM 0400 06/06/18 04:00 Chem 7 [Basic Metabolic Panel] AM 0400 Complete Blood Count w/o Diff [HEME] AM 04006/07/18 04:00 Chem 7 [Basic Metabolic Panel] AM 0400 Complete Blood Count w/o Diff [HEME] AM 0400 06/08/18 04:00 Chem 7 [Basic Metabolic Panel] AM 0400 Complete Blood Count w/o Diff [HEME] AM 04006/09/18 04:00 Chem 7 [Basic Metabolic Panel] AM 0400 Complete Blood Count w/o Diff [HEME] AM 04006/10/18 04:00 Chem 7 [Basic Metabolic Panel] AM 0400 Complete Blood Count w/o Diff [HEME] AM 0400 06/11/18 04:00 Chem 7 [Basic Metabolic Panel] AM 0400 Complete Blood Count w/o Diff [HEME] AM 0400 06/12/18 04:00 Chem 7 [Basic Metabolic Panel] AM 0400 Complete Blood Count w/o Diff [HEME] AM 0400 Date of Encounter: 06/04/18 Time of Encounter: 11:07 - Discharge Diagnosis (1) Chest pain Priority: Primary Status: Resolved Qualifiers: Chest pain type: unspecified Qualified Code(s): R07.9 - Chest pain, unspecified (2) Nausea Priority: Secondary Status: Resolved (3) Restless leg syndrome Priority: Secondary Status: Chronic (4) Esophageal candidiasis Priority: Secondary Status: Chronic (5) CAD (coronary artery disease) Priority: Secondary Status: Chronic Qualifiers: Coronary Disease-Associated Artery/Lesion type: [place] artery [place] vs. transplanted heart: [place] heart Associated angina: without angina Qualified Code(s): I25.10 - Atherosclerotic heart disease of [place] coronary artery without angina pectoris (6) Diabetes Priority: Secondary Status: Chronic Qualifiers: Diabetes mellitus type: type 2 Diabetes mellitus exterminator helper insulin use: without exterminator helper use Diabetes mellitus complication status: without complication Qualified Code(s): E11.9 - Type 2 diabetes mellitus without complications (7) ESRD (end stage renal disease) Priority: Secondary Status: Chronic (8) Hypertension Priority: Secondary Status: Chronic Qualifiers: Hypertension type: essential hypertension Qualified Code(s): I10 - Essential (primary) hypertension Hospital course: Mr. Hernandez is a 53 year old male PMH of coronary artery disease, diabetes, dialysis, hypertension, PUD and ESRD. Patient presented to the ED from HD due to chest pain. Patient admitted to the hospital for chest pain r/o ACS. Patient started on a heparin drip and cardiology consulted. Patient underwent LHC showing three vessel disease and estimated E.F of 45%. Cardiology recommended optima medical therapy with dual antiplatelets therapy. Patient was also started on ranexa and isosorbide. Patient acute symptoms have resolved and patient is hemodynamically stable to be discharged home. Recommended to follow up with his cardiology outpatient. - Time Spent with Patient Total time spent providing and/or coordinating discharge services: Greater than 30 minutes (35) - Discharge Medications Prescriptions: New Nitroglycerin 0.4 mg SL Q5MIN PRN 30 Days #30 tab.subl PRN Reason: Chest Pain Atorvastatin [Lipitor] 80 mg PO HS 30 Days #30 tablet Isosorbide MONOnitrate (24 HR) [Imdur] 60 mg PO DAILY 30 Days #60 tab.er.24h Metoprolol XL (24 HR) Succ [Toprol Xl] 25 mg PO DAILY 30 Days #30 tab.er.24h Ranolazine [Ranexa] 1,000 mg PO BID 30 Days #60 tab.er.12h rOPINIRole [Requip] 0.25 mg PO HS 30 Days #30 tablet Continue Insulin ASPART [NovoLOG] 10 unit SQ BIDWM Aspirin [Lo-Dose Aspirin EC] 81 mg PO DAILY Insulin ASPART [NovoLOG] 15 unit SQ 1200 Ergocalciferol (VITAMIN D2) [Vitamin D2] 50,000 unit PO WE Clopidogrel [Plavix] 75 mg PO DAILY #30 tablet Insulin Glargine,Hum.rec.anlog [Basaglar Kwikpen U-100] 30 unit SQ HS Mupirocin [Bactroban Oint] 1 appl TP TID Tramadol HCl [Ultram] 50 mg PO Q6H PRN PRN Reason: Pain Ondansetron ODT [Zofran ODT] 4 mg SL Q6HR #8 tab.rapdis Omeprazole [PriLOSEC] 40 mg PO DAILY@0730 Metoclopramide [Reglan] 10 mg PO Q6HR PRN 30 Days #90 tablet PRN Reason: Nausea And Vomiting Fluconazole [Diflucan] 100 mg PO DAILY 14 Days #14 tablet Lisinopril [Zestril] 20 mg PO DAILY 30 Days #30 tablet Home Medications: Aspirin [Lo-Dose Aspirin EC] 81 mg PO DAILY 07/30/17 [History] Insulin ASPART [NovoLOG] 10 unit SQ BIDWM 07/30/17 [History] Ergocalciferol (VITAMIN D2) [Vitamin D2] 50,000 unit PO WE 09/24/17 [History] Insulin ASPART [NovoLOG] 15 unit SQ 1200 09/24/17 [History] Clopidogrel [Plavix] 75 mg PO DAILY #30 tablet 10/29/17 [Rx] Insulin Glargine,Hum.rec.anlog [Basaglar Kwikpen U-100] 30 unit SQ HS 02/01/18 [History] Mupirocin [Bactroban Oint] 1 appl TP TID 04/15/18 [History] Tramadol HCl [Ultram] 50 mg PO Q6H PRN 04/15/18 [History] Ondansetron ODT [Zofran ODT] 4 mg SL Q6HR #8 tab.rapdis 05/16/18 [Rx] Fluconazole [Diflucan] 100 mg PO DAILY 14 Days #14 tablet 05/24/18 [Rx] Lisinopril [Zestril] 20 mg PO DAILY 30 Days #30 tablet 05/24/18 [Rx] Metoclopramide [Reglan] 10 mg PO Q6HR PRN 30 Days #90 tablet 05/24/18 [Rx] Omeprazole [PriLOSEC] 40 mg PO DAILY@0730 05/24/18 [History] Atorvastatin [Lipitor] 80 mg PO HS 30 Days #30 tablet 06/04/18 [Rx] Isosorbide MONOnitrate (24 HR) [Imdur] 60 mg PO DAILY 30 Days #60 tab.er.24h 06/04/18 [Rx] Metoprolol XL (24 HR) Succ [Toprol Xl] 25 mg PO DAILY 30 Days #30 tab.er.24h 06/04/18 [Rx] Nitroglycerin 0.4 mg SL Q5MIN PRN 30 Days #30 tab.subl 06/04/18 [Rx] Ranolazine [Ranexa] 1,000 mg PO BID 30 Days #60 tab.er.12h 06/04/18 [Rx] rOPINIRole [Requip] 0.25 mg PO HS 30 Days #30 tablet 06/04/18 [Rx] Allergies/Adverse Reactions: Allergy/AdvReac Type Severity Reaction Status Date / Time No Known Allergies Allergy Verified 05/11/18 09:42 Date of admission: 06/02/18 18:44 Primary care physician: Jacobo Booker Consults: 06/03/18 02:54 Consult to Nephrology [CONS] Routine Consulting Provider: Kidney Mray Jo/MARGO/MAGDALENA/JUSTICE Reason for Consult: ESRD, dialysis Call Completed: No 06/03/18 03:00 Consult to Cardiology [CONS] Routine Comment: Consulting Provider: Cardiology Mary Jo Reason for Consult: Chest pain, history of severe 2 vessel disease on cath 10/28. Call Completed: No 06/03/18 12:12 Consult to Nurse Navigator [CONS] Routine Comment: hd 06/04/18 10:00 Consult to Dialysis [CONS] ONCE - Constitutional Vitals: Temp Pulse Resp BP Pulse Ox 98.3 F 73 17 135/76 97 06/04/18 10:57 06/04/18 10:57 06/04/18 10:57 06/04/18 10:57 06/04/18 10:57 General appearance: Present: cooperative, mild distress, A&O X 3, pleasant, answers questions appropriately Exam: Vitals: Reviewed General: Alert and oriented x4. In no acute distress Cardiovascular: RRR, normal S1 & S2, no rubs, murmurs or gallops. Lungs: CTA b/l, no wheezes or crackles. Abdomen: Obese, soft, non-tender, no rigidity. NABS in all 4 quadrants Extremities: chronic skin changes in the lower ext b/l. no edema Neurological: Normal cognition. Rest of the physical exam is non contributory - Patient Status Disposition: Home, Self-Care Condition: Good Functional capacity at discharge: independent ambulation Overall status at discharge: patient is progressing back to baseline - Discharge Instructions Follow Up With: Miya Aden DO [Primary Care Provider] - 06/09/18 9:30 am (Please follow up as schedule) Forms: ED Satisfaction Letter - Diet and Activity Activity: resume usual activities as tolerated Diet: diabetic diet, low salt diet
[2018-06-04] MEDS ORDERED: *HR* Heparin 10,000 UNIT/10 ML VIAL IV PRN (11:23)
--- NOTE | 2018-06-04 14:36 | Physician Discharge Referral ---
Home Health/Hosp Referral Info Transfer to: Home Health - Diagnosis (1) Chest pain Priority: Primary Status: Resolved (2) Nausea Priority: Secondary Status: Resolved (3) Restless leg syndrome Priority: Secondary Status: Chronic (4) Esophageal candidiasis Priority: Secondary Status: Chronic (5) CAD (coronary artery disease) Priority: Secondary Status: Chronic (6) Diabetes Priority: Secondary Status: Chronic (7) ESRD (end stage renal disease) Priority: Secondary Status: Chronic (8) Hypertension Priority: Secondary Status: Chronic - Respiratory Orders None Smoking Cessation: Smoking cessation has been advised. For more information, call the [place] Tobacco Quit Line at 1-990-KMEA-NOW. - Diet/Nutrition Diet/Nutrition Orders: Renal - Activity Activity Orders: Ambulate - Services Needed Following services are medically necessary services: Home Health Aide, Physical Therapy, Occupational Therapy - Transfer Medications Prescriptions: Nitroglycerin 0.4 mg SL Q5MIN PRN 30 Days #30 tab.subl PRN Reason: Chest Pain Atorvastatin [Lipitor] 80 mg PO HS 30 Days #30 tablet Isosorbide MONOnitrate (24 HR) [Imdur] 60 mg PO DAILY 30 Days #60 tab.er.24h Metoprolol XL (24 HR) Succ [Toprol Xl] 25 mg PO DAILY 30 Days #30 tab.er.24h Ranolazine [Ranexa] 1,000 mg PO BID 30 Days #60 tab.er.12h rOPINIRole [Requip] 0.25 mg PO HS 30 Days #30 tablet Home Medications: Aspirin [Lo-Dose Aspirin EC] 81 mg PO DAILY 07/30/17 [History] Insulin ASPART [NovoLOG] 10 unit SQ BIDWM 07/30/17 [History] Ergocalciferol (VITAMIN D2) [Vitamin D2] 50,000 unit PO WE 09/24/17 [History] Insulin ASPART [NovoLOG] 15 unit SQ 1200 09/24/17 [History] Clopidogrel [Plavix] 75 mg PO DAILY #30 tablet 10/29/17 [Rx] Insulin Glargine,Hum.rec.anlog [Basaglar Kwikpen U-100] 30 unit SQ HS 02/01/18 [History] Mupirocin [Bactroban Oint] 1 appl TP TID 04/15/18 [History] Tramadol HCl [Ultram] 50 mg PO Q6H PRN 04/15/18 [History] Ondansetron ODT [Zofran ODT] 4 mg SL Q6HR #8 tab.rapdis 05/16/18 [Rx] Fluconazole [Diflucan] 100 mg PO DAILY 14 Days #14 tablet 05/24/18 [Rx] Lisinopril [Zestril] 20 mg PO DAILY 30 Days #30 tablet 05/24/18 [Rx] Metoclopramide [Reglan] 10 mg PO Q6HR PRN 30 Days #90 tablet 05/24/18 [Rx] Omeprazole [PriLOSEC] 40 mg PO DAILY@0730 05/24/18 [History] Atorvastatin [Lipitor] 80 mg PO HS 30 Days #30 tablet 06/04/18 [Rx] Isosorbide MONOnitrate (24 HR) [Imdur] 60 mg PO DAILY 30 Days #60 tab.er.24h 06/04/18 [Rx] Metoprolol XL (24 HR) Succ [Toprol Xl] 25 mg PO DAILY 30 Days #30 tab.er.24h 06/04/18 [Rx] Nitroglycerin 0.4 mg SL Q5MIN PRN 30 Days #30 tab.subl 06/04/18 [Rx] Ranolazine [Ranexa] 1,000 mg PO BID 30 Days #60 tab.er.12h 06/04/18 [Rx] rOPINIRole [Requip] 0.25 mg PO HS 30 Days #30 tablet 06/04/18 [Rx] Allergies/Adverse Reactions: Allergy/AdvReac Type Severity Reaction Status Date / Time No Known Allergies Allergy Verified 05/11/18 09:42 Certification: Further, I certify that my clinical findings support that this patient is homebound (i.e. absences from home require considerable and taxing effort and are for medical reasons or restoration services or infrequently or short duration when for other reasons) because: Homebound Reason: Patient requires assistance of a person or device to safely leave home Attestation: My signature below is to certify that this patient is under my care and that I, or nurse practitioner, or a physician's child development assistant working with me, has a [id number] encounter with this patient.
[2018-06-04 16:49] LABS: Bilirubin,Urine Negative (Negative); Blood,Urine Moderate (Negative); Clarity,Urine Cloudy (Clear); Color,Urine Yellow (Yellow); Glucose,Urine (UA) 250 mg/dL (Normal); Ketones,Urine Negative (Negative); Leukocyte Esterase,Urine Moderate (Negative); Nitrite,Urine Negative (Negative); PH,Urine 7.5 pH Units (5.0-8.0); Protein,Urine >=300 mg/dL (Neg-Trace); Specific Gravity,Urine 1.014 (1.010-1.025); Urobilinogen,Urine Normal (Normal)
[2018-06-04 16:53] LABS: Bacteria,Urine None Seen per hpf (None-Few); Hyaline Casts,Urine None Seen per lpf (None-Few); Squamous Epithelial Cell,Urine None Seen per lpf (None-Few); WBC,Urine TNTC per hpf (0-3)
--- NOTE | 2018-06-04 16:53 | Nephrology Progress Note ---
Date of Encounter: 06/04/18 Time of Encounter: 12:30 - Assessment and Plan (1) ESRD (end stage renal disease) on dialysis Status: Chronic ESRD on HD thrice weekly, and he is due today (Thursday). I reviewed the sign out communication for my colleague. Plan for HD today. In the middle of the day, I received a message from his outpatient dialysis unit asking me to request a permacath removal during this hospitalization. However he has already been arranged for discharge, and he is not NPO, so I will not be able to have this procedure performed during this hospital stay. He is already scheduled for an outpatient permacath removal next Thursday, which he promised me he would be sure to attend. Subjective Principal diagnosis: chest pain Interval history: The patient was seen and examined while on dialysis. I asked him about his upcoming permacath removal as an outpt, which se affirmed is scheduled for next Thursday. If he were to stay in the hospital until Thursday, I would be happy to have it removed during this hospitalization, but he appears to are the have been ordered for discharge. Objective - Vital Signs Vital signs: Vital Signs Temp Pulse Resp BP Pulse Ox 06/04/18 13:45 142/75 06/04/18 13:30 142/75 06/04/18 13:15 142/75 06/04/18 13:00 147/85 06/04/18 12:45 151/86 06/04/18 12:30 149/80 06/04/18 12:15 152/83 06/04/18 12:00 161/83 06/04/18 11:45 98.3 F 15 144/80 06/04/18 10:57 98.3 F 73 17 135/76 97 06/04/18 07:16 98.7 F 69 18 136/82 98 06/04/18 03:42 98.4 F 75 17 129/75 97 06/04/18 00:13 97.9 F 74 17 158/84 99 06/03/18 19:59 98 F 86 18 120/62 93 Intake and Output 06/04/18 06/04/18 06/04/18 07:59 15:59 23:59 Intake Total 720 / 720 Balance 720 / 720 Intake: Oral 120 / 120 Intake, Rinseback and Flushes 600 / 600 Other: Meal Breakfast Percent of Meal Consumed 50% Weight 95.8 kg Blood Glucose* 141 183 Hemodialysis Net Fluid Removed 1681 (mL) Patient Weight 06/04/18 23:59 Weight 95.8 kg - General Appearance General appearance: Present: well-developed, well-nourished, obese, frail EENT: Present: ATNC, PERRL, mucous membranes moist Respiratory: Present: clear Cardiology: Present: edema (but better than compared to a few months ago. ), normal S1, normal S2 Dialysis Vascular Access: Arteriovenous Graft (left forearm) thrill: Yes bruit: Yes Gastrointestinal: Present: normoactive bowel sounds, no guarding Integumentary: Present: erythema, ecchymotic, chronic venous stasis Neurologic: Present: no asterixis, alert and oriented x3 Musculoskeletal: Present: no clubbing Psychiatric: Present: depressed - Lab 06/03/18 04:43 06/04/18 04:28 Most recent lab results Calcium 7.8 mg/dL (8.6-10.3) L 06/04/18 04:28 Phosphorus 5.1 mg/dL (2.7-4.5) H 06/04/18 04:28 Magnesium 1.7 mg/dL (1.6-2.6) 06/04/18 04:28 Consult Discharge Plan - Plan Instructions: Chest Pain (DC), Sepsis (DC) Referrals: Douglas Garcia MD [Partnered Physician] - (Office will call for an appoinment...) Miya Aden DO [Primary Care Provider] - 06/09/18 9:30 am (Please follow up as schedule) Prescriptions: Nitroglycerin 0.4 mg SL Q5MIN PRN 30 Days #30 tab.subl PRN Reason: Chest Pain Atorvastatin [Lipitor] 80 mg PO HS 30 Days #30 tablet Isosorbide MONOnitrate (24 HR) [Imdur] 60 mg PO DAILY 30 Days #60 tab.er.24h Metoprolol XL (24 HR) Succ [Toprol Xl] 25 mg PO DAILY 30 Days #30 tab.er.24h Ranolazine [Ranexa] 1,000 mg PO BID 30 Days #60 tab.er.12h rOPINIRole [Requip] 0.25 mg PO HS 30 Days #30 tablet
[2018-06-04 17:18] VITALS: BP 128/72
[2018-06-04] MEDS ORDERED: Ranolazine 500 MG TAB.ER.12H PO SCH (21:00)
== END 2018-06-04 16:34 | disposition home or self-care (01) ==
LOC: 2ANU 14:44 → EMEROOARM 14:44 → 2ANU 20:36
PROVIDERS: ADMIT Internal Medicine; ATTEND Internal Medicine

== ENCOUNTER 2018-07-26 09:52 | Observation (INO) ==
--- NOTE | 2018-07-26 11:11 | Emergency Department Note ---
Disposition Clinical Impression: Elevated troponin Heart failure Qualifiers: Heart failure type: unspecified Heart failure chronicity: unspecified Qualified Code(s): I50.9 - Heart failure, unspecified Leg ulcer Qualifiers: Laterality: left Non-pressure ulcer stage: unspecified non-pressure ulcer stage Qualified Code(s): L97.929 - Non-pressure chronic ulcer of unspecified part of left lower leg with unspecified severity Dyspnea Qualifiers: Dyspnea type: unspecified Qualified Code(s): R06.00 - Dyspnea, unspecified Anemia Qualifiers: Anemia type: unspecified type Qualified Code(s): D64.9 - Anemia, unspecified Disposition: Admitted As Inpatient Condition: Fair Referrals: Miya Aden DO [Primary Care Provider] - Forms: ED Satisfaction Letter Time of Disposition: 14:22 General Adult HPI - General Chief complaint: ED Extremity Problem,Nontraumatic Stated complaint: L Leg Swelling Time Seen by Provider: 07/26/18 10:45 Source: patient Mode of arrival: ambulatory Limitations: no limitations Nursing Notes Reviewed: Yes Vital Signs Reviewed: Yes - History of Present Illness HPI Narrative: 53-year-old male with history of hypertension, diabetes, CAD presents for ev aluation of left lower leg swelling. Patient states he has had increased swelling over the past few days. Patient states he does have some posterior calf tenderness. Patient was in dialysis earlier today was told to go the ER for evaluation. Patient also notes some shortness of breath with a non productive cough that started last night. No chest pain. Patient does have chronic ulcerations of the lower legs which he seen wound care in the past. States he saw care approximately one month ago and did appear to be improved however notes that it has recurred and broken open with blistering. Denies any fevers. Denies abdominal pain. Denies any prior history of DVT. Pain Scale: 9 - Related Data Home Medications Medication Instructions Recorded Confirmed Aspirin [Lo-Dose Aspirin EC] 81 mg PO DAILY 07/30/17 07/26/18 Ergocalciferol (VITAMIN D2) 2 cap PO WE 09/24/17 07/26/18 [Vitamin D2] Insulin ASPART [NovoLOG] 0 unit SQ TIDWM 09/24/17 07/26/18 Insulin Glargine,Hum.rec.anlog 0 unit SQ HS 02/01/18 07/26/18 [Marcelo Gonzalez U-100] Tramadol HCl [Ultram] 50 mg PO Q6H PRN 04/15/18 07/26/18 rOPINIRole [Requip] 0.25 mg PO HS 06/18/18 07/26/18 Atorvastatin [Lipitor] 40 mg PO HS 07/26/18 07/26/18 Calcium Carbonate [Calcium] 600 mg PO DAILY 07/26/18 07/26/18 Isosorbide MONOnitrate (24 HR) 30 mg PO DAILY 07/26/18 07/26/18 [Imdur] Metoprolol Succinate [Toprol Xl] 25 mg PO DAILY 07/26/18 07/26/18 Nitroglycerin [Nitrostat] 0.4 mg SL Q5MIN PRN 07/26/18 07/26/18 Ondansetron ODT [Zofran ODT] 4 mg SL Q6HR PRN 07/26/18 07/26/18 Pantoprazole Sodium [Protonix] 40 mg PO BID 07/26/18 07/26/18 Ranolazine [Ranexa] 500 mg PO BID 07/26/18 07/26/18 Previous Rx's Medication Instructions Recorded Clopidogrel [Plavix] 75 mg PO DAILY #30 tablet 10/29/17 Allergies Allergy/AdvReac Type Severity Reaction Status Date / Time No Known Allergies Allergy Verified 07/26/18 09:54 All systems ED: reviewed and negative except as stated. Constitutional: Denies: fever Cardiovascular: Denies: chest pain Respiratory: Reports: cough, dyspnea Gastrointestinal: Denies: abdominal pain, nausea, vomiting Past Medical History - Past Medical History Source: patient Medical history: Reports: coronary artery disease, diabetes, dialysis, hypertension, renal disease Surgical history: Reports: cholecystectomy, vascular surgery, other Psychiatric history: Reports: no psych history - Social History Smoking Status: Never smoker Smokeless Tobacco Status: No Alcohol use: Reports: none Drug use: Reports: none Physical Exam - General Limitations: no limitations General appearance: alert, in no apparent distress - Head Head exam: atraumatic, normocephalic, normal inspection - Eye Eye exam: Present: normal appearance, PERRL, EOMI - ENT ENT exam: normal exam, mucous membranes moist - Neck Neck exam: Present: normal inspection - Chest Chest inspection: Present: normal inspection - Respiratory Respiratory exam: Present: normal lung sounds bilaterally. Absent: respiratory distress - Cardiovascular Cardiovascular exam: Present: regular rate, normal rhythm. Absent: systolic murmur - Abdominal Exam Abdominal exam: Present: soft, Non-Tender - Expanded Lower Extremity Exam Lower leg exam: Present: tenderness, other (OPEN ULCERS OF THE LOWER/EXT WITH CLEAR DRAINAGE. AGED SYMMETRIC ECCHYMOSIS). Absent: palpable cord, Homans' sign - Back Exam Back exam: Present: normal inspection - Neurological Exam Neurological exam: Present: alert - Skin Skin exam: Present: warm, dry, intact, normal color Course Course Narrative: Patient presents with unilateral lower leg swelling. Patient is a dialysis patient. Patient does have some posterior calf tenderness. Will obtain A LOWER LEG WELL BASIC LABS CHEST X-RAY TROPONIN EKG. PATIENT ALSO GET IMAGING OF THE LOWER LEG THERE IS SOME ULCERATION HOWEVER APPEARS TO BE CHRONIC IN NATURE. Disposition pending - Reevaluation(s) Reevaluation #1: Patient's records reviewed. Patient does have known history of unstable angina. Recent left heart catheter showed severe triple-vessel disease. Concerns that this may be equivalent with dyspnea with findings of heart failure. DVT study negative. Time: 12:21 - Consultations Consultation #1: Spoke with Dr. Adan get her regarding the patient's admission. Time: 14:21 Vital Signs Temperature 97.9 F 07/26/18 09:54 Pulse Rate 96 07/26/18 09:54 Respiratory Rate 18 07/26/18 09:54 Blood Pressure 206/106 07/26/18 09:54 O2 Sat by Pulse Oximetry 94 07/26/18 09:54 Temperature 97.9 F 07/26/18 09:54 Pulse Rate 100 07/26/18 14:08 Respiratory Rate 23 07/26/18 14:08 Blood Pressure 152/100 07/26/18 14:08 O2 Sat by Pulse Oximetry 100 07/26/18 14:08 Oxygen Delivery Oxygen Delivery Room Air Medical Decision Making - [facility] Narrative Medical decision making narrative: Patient presents for concerns of left lower leg swelling as well as dyspnea. Patient states he felt short of breath started last night. Lower leg swelling with posterior calf tenderness prompted ultrasound of the leg. Ultrasound leg shows chronic saphenous but no DVT. Patient did get an EKG and troponin given his history of dyspnea. Patient's EKG came back unremarkable. Troponin came back elevated higher than it has been the past. Patient's BNP is also elevated from what has been the past. Patient does not produce any urine. Patient records shows severe triple-vessel disease with EF of 45%. Patient will be admitted for elevated troponin in the setting of heart failure, dyspnea. Patient also benefit from wound care evaluation regarding those lower extremity ulcers. No concerns for necrotizing infection. No concerns for PE. - Medical Records Medical records reviewed: Yes I reviewed the patient's medical records. 06/01 Indications: Unstable Angina Worsening Angina Impressions: There is severe three vessel coronary artery disease. The left ventricle is normal and has abnormal contractility EF 45% No circumflex artery stent restenosis. - Lab Data Result diagrams: 07/26/18 13:03 07/26/18 13:03 Lab Results 07/26/18 07/26/18 07/26/18 Range/Units 13:03 13:03 13:03 WBC 8.6 (4.3-11.1) K/mcL RBC 3.68 L (4.19-5.50) M/mcL Hgb 11.1 L (12.9-16.9) g/dL Hct 32.8 L (37.5-50.1) % MCV 89.1 (83.0-100.0) fL MCH 30.2 (28.0-33.3) pg MCHC 33.8 (31.6-35.5) g/dL RDW 14.6 H (11.5-14.5) % Plt Count 242 (140-400) K/mcL MPV 9.1 L (9.4-12.4) fL Immature Gran % 0.2 (0-4) % Seg Neutrophils % 76.6 % Lymphocytes % 14.6 % Monocytes % 5.5 % Eosinophils % 2.6 % Basophils % 0.5 % Neutrophils # 6.6 (1.6-8.9) K/mcL Lymphocytes # 1.3 (0.6-4.6) K/mcL Monocytes # 0.5 (0.0-1.3) K/mcL Eosinophils # 0.2 (0.0-0.6) K/mcL Basophils # 0.0 (0.0-0.2) K/mcL Sodium 138 (136-145) mEq/L Potassium 4.6 (3.5-5.1) mEq/L Chloride 102 (98-107) mEq/L Carbon Dioxide 24 (23-29) mEq/L BUN 69 H (6-20) mg/dL Creatinine 6.49 H (0.70-1.30) mg/dL Est GFR ( Amer) 11 L (> 60) Est GFR (Non-Af Amer) 9 L (> 60) BUN/Creatinine Ratio 11 (6-26) Glucose 226 H (70-105) mg/dL Calculated Osmolality 313 H (280-300) Calcium 7.5 L (8.6-10.3) mg/dL Total Bilirubin 0.3 (0.3-1.0) mg/dL AST 11 L (13-39) Units/L ALT 8 (7-52) Units/L Alkaline Phosphatase 99 (34-104) Units/L Troponin I 0.07 H* (< 0.04) ng/mL B-Natriuretic Peptide 1106 H (Less than 100) pg/mL Serum Total Protein 6.7 (6.4-8.9) g/dL Albumin 3.3 L (3.5-5.7) g/dL Globulin 3.4 (2.4-3.5) g/dL Albumin/Globulin Ratio 1.0 L (1.1-2.2) - Radiology Data Radiology results reviewed: Yes I reviewed the patient's radiology results. Chest X-Ray 07/26/18 11:03 IMPRESSION: 1. Findings typical of congestive heart failure. 2. Calcific atherosclerosis aorta. 3. Cardiomegaly. D/ / Bashir Aguero / Bashir Aguero Interpreting Provider: Bashir Aguero Tibia/Fibula X-Ray 07/26/18 11:05 IMPRESSION: No acute bony destruction or soft tissue gas. D/ / Jae Dutton MD / Jae Dutton MD Interpreting Provider: Jae Dutton MD - EKG Data EKG #1 EKG attestation: Yes I reviewed and interpreted this EKG. EKG shows normal: sinus rhythm Rate: normal Rhythm: NSR [place]/QRS: normal Q waves: III, aVF Interpretation: no acute changes SMike - Andrew Situation: Demographics Background: Presenting Complaint Assessment: Vital Signs, Course and respsone to treatment, Patient/Family Expectation Recommendation: Barrier(s) to disposition, Recommendation based on pending studies, treatments, or consults Andrew Report Given to: Dr. Carole Morales Repor Time: 14:30
[2018-07-26 13:25] LABS: Basophils % 0.5 %; Eosinophils # 0.2 K/mcL (0.0-0.6); Eosinophils % 2.6 %; Hematocrit 32.8 % (37.5-50.1); Hemoglobin 11.1 g/dL (12.9-16.9); Immature Granulocytes % 0.2 % (0-4); Lymphocytes # 1.3 K/mcL (0.6-4.6); Lymphocytes % 14.6 %; Mean Corpuscular HGB Conc 33.8 g/dL (31.6-35.5); Mean Corpuscular Hemoglobin 30.2 pg (28.0-33.3); Mean Corpuscular Volume 89.1 fL (83.0-100.0); Mean Platelet Volume 9.1 fL (9.4-12.4); Monocytes # 0.5 K/mcL (0.0-1.3); Monocytes % 5.5 %; Neutrophils # 6.6 K/mcL (1.6-8.9); Platelet Count 242 K/mcL (140-400); Red Blood Count 3.68 M/mcL (4.19-5.50); Red Cell Distribution Width 14.6 % (11.5-14.5); Segmented Neutrophils % 76.6 %
[2018-07-26] MEDS ORDERED: *HR* HYDROcodone/Acet 10/325 mg TABLET PO ONE (13:48)
[2018-07-26 13:58] LABS: Albumin 3.3 g/dL (3.5-5.7); Bilirubin,Total 0.3 mg/dL (0.3-1.0); Calcium 7.5 mg/dL (8.6-10.3); Globulin 3.4 g/dL (2.4-3.5); Potassium 4.6 mEq/L (3.5-5.1); Total Protein 6.7 g/dL (6.4-8.9); Troponin I 0.07 ng/mL (< 0.04)
[2018-07-26] MEDS ORDERED: Aspirin 325 MG TABLET PO ONE (13:58)
[2018-07-26] MEDS ORDERED: *HR* Heparin 10,000 UNIT/10 ML VIAL IV PRN (14:27)
[2018-07-26] MEDS ORDERED: 0.9 % Sodium Chloride 250 ML IVC PRN (14:27)
[2018-07-26] MEDS ORDERED: 0.9 % Sodium Chloride 1,000 ML PRIME SCH (14:30)
--- NOTE | 2018-07-26 14:37 | Emergency Department Note ---
Disposition Clinical Impression: Elevated troponin Heart failure Qualifiers: Heart failure type: unspecified Heart failure chronicity: unspecified Qualified Code(s): I50.9 - Heart failure, unspecified Leg ulcer Qualifiers: Laterality: left Non-pressure ulcer stage: unspecified non-pressure ulcer stage Qualified Code(s): L97.929 - Non-pressure chronic ulcer of unspecified part of left lower leg with unspecified severity Dyspnea Qualifiers: Dyspnea type: unspecified Qualified Code(s): R06.00 - Dyspnea, unspecified Anemia Qualifiers: Anemia type: unspecified type Qualified Code(s): D64.9 - Anemia, unspecified Disposition: Admitted As Inpatient Condition: Fair Referrals: Miya Aden DO [Primary Care Provider] - Forms: ED Satisfaction Letter General Adult HPI - General Chief complaint: ED Extremity Problem,Nontraumatic Stated complaint: L Leg Swelling Time Seen by Provider: 07/26/18 10:45 Source: patient Mode of arrival: ambulatory Limitations: no limitations - History of Present Illness Pain Scale: 9 - Related Data Home Medications Medication Instructions Recorded Confirmed Aspirin [Lo-Dose Aspirin EC] 81 mg PO DAILY 07/30/17 07/26/18 Ergocalciferol (VITAMIN D2) 2 cap PO WE 09/24/17 07/26/18 [Vitamin D2] Insulin ASPART [NovoLOG] 0 unit SQ TIDWM 09/24/17 07/26/18 Insulin Glargine,Hum.rec.anlog 0 unit SQ HS 02/01/18 07/26/18 [Basaglar Kwikpen U-100] Tramadol HCl [Ultram] 50 mg PO Q6H PRN 04/15/18 07/26/18 rOPINIRole [Requip] 0.25 mg PO HS 06/18/18 07/26/18 Atorvastatin [Lipitor] 40 mg PO HS 07/26/18 07/26/18 Calcium Carbonate [Calcium] 600 mg PO DAILY 07/26/18 07/26/18 Isosorbide MONOnitrate (24 HR) 30 mg PO DAILY 07/26/18 07/26/18 [Imdur] Metoprolol Succinate [Toprol Xl] 25 mg PO DAILY 07/26/18 07/26/18 Nitroglycerin [Nitrostat] 0.4 mg SL Q5MIN PRN 07/26/18 07/26/18 Ondansetron ODT [Zofran ODT] 4 mg SL Q6HR PRN 07/26/18 07/26/18 Pantoprazole Sodium [Protonix] 40 mg PO BID 07/26/18 07/26/18 Ranolazine [Ranexa] 500 mg PO BID 07/26/18 07/26/18 Previous Rx's Medication Instructions Recorded Clopidogrel [Plavix] 75 mg PO DAILY #30 tablet 10/29/17 Allergies Allergy/AdvReac Type Severity Reaction Status Date / Time No Known Allergies Allergy Verified 07/26/18 09:54 Constitutional: Denies: fever Cardiovascular: Denies: chest pain Respiratory: Reports: cough, dyspnea Gastrointestinal: Denies: abdominal pain, nausea, vomiting Past Medical History - Past Medical History Medical history: Reports: coronary artery disease, diabetes, dialysis, hypertension, renal disease Surgical history: Reports: cholecystectomy, vascular surgery, other Psychiatric history: Reports: no psych history - Social History Smoking Status: Never smoker Smokeless Tobacco Status: No Alcohol use: Reports: none Drug use: Reports: none Physical Exam - General Limitations: no limitations General appearance: alert, in no apparent distress Course Vital Signs Temperature 97.9 F 07/26/18 09:54 Pulse Rate 96 07/26/18 09:54 Respiratory Rate 18 07/26/18 09:54 Blood Pressure 206/106 07/26/18 09:54 O2 Sat by Pulse Oximetry 94 07/26/18 09:54 Temperature 97.9 F 07/26/18 09:54 Pulse Rate 100 07/26/18 14:08 Respiratory Rate 23 07/26/18 14:08 Blood Pressure 152/100 07/26/18 14:08 O2 Sat by Pulse Oximetry 100 07/26/18 14:08 Oxygen Delivery Oxygen Delivery Room Air Medical Decision Making - Lab Data Result diagrams: 07/26/18 13:03 07/26/18 13:03 Lab Results 07/26/18 07/26/18 07/26/18 Range/Units 13:03 13:03 13:03 WBC 8.6 (4.3-11.1) K/mcL RBC 3.68 L (4.19-5.50) M/mcL Hgb 11.1 L (12.9-16.9) g/dL Hct 32.8 L (37.5-50.1) % MCV 89.1 (83.0-100.0) fL MCH 30.2 (28.0-33.3) pg MCHC 33.8 (31.6-35.5) g/dL RDW 14.6 H (11.5-14.5) % Plt Count 242 (140-400) K/mcL MPV 9.1 L (9.4-12.4) fL Immature Gran % 0.2 (0-4) % Seg Neutrophils % 76.6 % Lymphocytes % 14.6 % Monocytes % 5.5 % Eosinophils % 2.6 % Basophils % 0.5 % Neutrophils # 6.6 (1.6-8.9) K/mcL Lymphocytes # 1.3 (0.6-4.6) K/mcL Monocytes # 0.5 (0.0-1.3) K/mcL Eosinophils # 0.2 (0.0-0.6) K/mcL Basophils # 0.0 (0.0-0.2) K/mcL Sodium 138 (136-145) mEq/L Potassium 4.6 (3.5-5.1) mEq/L Chloride 102 (98-107) mEq/L Carbon Dioxide 24 (23-29) mEq/L BUN 69 H (6-20) mg/dL Creatinine 6.49 H (0.70-1.30) mg/dL Est GFR ( Amer) 11 L (> 60) Est GFR (Non-Af Amer) 9 L (> 60) BUN/Creatinine Ratio 11 (6-26) Glucose 226 H (70-105) mg/dL Calculated Osmolality 313 H (280-300) Calcium 7.5 L (8.6-10.3) mg/dL Total Bilirubin 0.3 (0.3-1.0) mg/dL AST 11 L (13-39) Units/L ALT 8 (7-52) Units/L Alkaline Phosphatase 99 (34-104) Units/L Troponin I 0.07 H* (< 0.04) ng/mL B-Natriuretic Peptide 1106 H (Less than 100) pg/mL Serum Total Protein 6.7 (6.4-8.9) g/dL Albumin 3.3 L (3.5-5.7) g/dL Globulin 3.4 (2.4-3.5) g/dL Albumin/Globulin Ratio 1.0 L (1.1-2.2) Attestation Statement - Attestation Attestation: I examined this patient and my medical decision-making was reviewed with the Resident Physician. I agree with the documented findings, disposition and treatment plan as described except to the extent set forth below. 53 year old male presents to the ED with left lower leg pain. Patient is a dialysis patient and has been ruled out for DVt but appears to have a bnp of 1100 and an elevatd troponin we will admit to medicine for CHF excebration
[2018-07-26 15:32] LABS: Hepatitis B Surface Antibody < 3.10 mIU/mL
[2018-07-26 15:43] LABS: Hepatitis B Surface Antigen Nonreactive (Nonreactive)
--- NOTE | 2018-07-26 15:48 | Internal Med History&Physical ---
<Bebeto Metcalf S - Last Filed: 07/26/18 16:28> Date of Encounter: 07/26/18 Time of Encounter: 16:28 Internal Medicine - H&P: HPI Chief complaint: dialysis sent me Admitted From: Home Plans for Post Hospital Care: Home History of present illness: Mr. Hernandez is a 53 year old male with PMH of ESRD on HD MWF, venous stasis, T2DM, CAD, HFrEF, oral candidasis, RLS, and HTN. He presents today from HD due to conc erns of infxn of the LLE ulcers. He states he has also had some increased swelling of the LLE and this is new from his baseline. He states that he noticed this yesterday and has had some increasing white drainage from the wounds. He denies any fevers/chills. He also denies recent trauma, animal bites or exposure to thorns/bushes outside. He has c/o chest pain. He does have a hx of CAD and is s/p LHC in 05/2018. He states that he has chest pain starting yesterday over his heart and it is squeezing/pressure like. He states it doesn't radiate anywhere. He didn't take anything for it. Nothing makes it better or worse. He denies N/V assoc with it or diaphoresis. He denies any pre-syncopal like episodes, dizziness or numbness/tingling. He has had pain like this before however. He denies any act chio chest pain. He also has new onset SOB and states that he doesn't wear oxygen at home. He states that he has been having increasing trouble laying down on his back and that this is new for him. He states that he feels like he can't breathe when he lays back and that he usually isn't so short of breath. He also complains of weight loss. He has lost 35 lbs in 2 mos. He states that he has had some oral cadidasis but this has resolved with fluconazole therapy. He states that he gets nauseous 4-5 hours after meals and that he at times has to throw up because he is so nauseated. In the ER he was found to have a troponin of 0.07. EKG showed no new ST elevation or ischemic changes. XR chest showed CHF and cardiomegaly. DVT study was negative for acute DVT but did show superficial DVT. He will be admitted for further evaluation and treatment. Past Med Surg Social Fam HX - Past Medical History Medical history: coronary artery disease, diabetes, dialysis, hypertension, renal disease Additional medical history: Gastric ulcers. Type II Diabetic Psychiatric history: no psych history - Past Surgical History Surgical History: cholecystectomy, vascular surgery, other Additional surgical history: 2 cardiac stent, esophageal bypass - Social History Smoking Status: Never smoker Smokeless Tobacco Status: No Alcohol use: none Drug use: none - Family History Father Adopted: No Living Status: Hx Family Cardiac Disorders: Yes Hx Family Respiratory Disorders: Yes Hx Family Cancer: No Hx Family GI Disorders: No Hx Family Endocrine Disorder: Yes Hx Family Neuromuscular Disorders: No Hx Family Neurologic Disorders: No Hx Family HEENT Disorders: No Hx Family Autoimmune Disorders: No Mother Adopted: No Living Status: Hx Family Cardiac Disorders: Yes (mother stroke) Hx Family Respiratory Disorders: Yes (Dad asthma copd) Hx Family Cancer: Yes (prostate, pancreatic) Hx Family GI Disorders: No Hx Family Endocrine Disorder: Yes (DM) Hx Family Neuromuscular Disorders: No Hx Family Neurologic Disorders: No Hx Family HEENT Disorders: No Hx Family Autoimmune Disorders: No Internal Medicine - H&P: Meds RX: Aspirin [Lo-Dose Aspirin EC] 81 mg PO DAILY 07/30/17 [History] RX: Ergocalciferol (VITAMIN D2) [Vitamin D2] 2 cap PO WE 09/24/17 [History] RX: Insulin ASPART [NovoLOG] 0 unit SQ TIDWM 09/24/17 [History] RX: Clopidogrel [Plavix] 75 mg PO DAILY #30 tablet 10/29/17 [Rx] RX: Insulin Glargine,Hum.rec.anlog [Basaglar Kwikpen U-100] 0 unit SQ HS 8 [History] RX: Tramadol HCl [Ultram] 50 mg PO Q6H PRN 04/15/18 [History] RX: rOPINIRole [Requip] 0.25 mg PO HS 06/18/18 [History] Atorvastatin [Lipitor] 40 mg PO HS 07/26/18 [History] Calcium Carbonate [Calcium] 600 mg PO DAILY 07/26/18 [History] Isosorbide MONOnitrate (24 HR) [Imdur] 30 mg PO DAILY 07/26/18 [History] Metoprolol Succinate [Toprol Xl] 25 mg PO DAILY 07/26/18 [History] Nitroglycerin [Nitrostat] 0.4 mg SL Q5MIN PRN 07/26/18 [History] Pantoprazole Sodium [Protonix] 40 mg PO BID 07/26/18 [History] RX: Ondansetron ODT [Zofran ODT] 4 mg SL Q6HR PRN 07/26/18 [History] Ranolazine [Ranexa] 500 mg PO BID 07/26/18 [History] Allergy/AdvReac Type Severity Reaction Status Date / Time No Known Allergies Allergy Verified 07/26/18 09:54 All Systems PM: A 10-system review of systems was performed and is negative for pertinent findings except as documented above in the HPI. - Constitutional Constitutional: anorexia, lethargy, weight loss (35 lbs 2 mos) - Cardiovascular Cardiovascular ROS IM: chest pain, orthopnea - Respiratory Respiratory: dyspnea, dyspnea on exertion, chest congestion, no hemoptysis - Gastrointestinal Gastrointestinal: nausea, vomiting, no abdominal pain, no diarrhea, no hematemesis, no hematochezia - Genitourinary Genitourinary ROS male: difficulty urinating - Musculoskeletal Musculoskeletal ROS IM: arthralgias, no numbness, no tingling - Integumentary Integumentary IM: non-healing lesions, skin ulcer, sores - Neurological Neurological ROS: weakness - Endocrine Endocrine IM: fatigue - Hematologic/Lymphatic Hematologic/Lymphatic: no easy bleeding, no easy bruising - Constitutional Vitals: Temp Pulse Resp BP Pulse Ox 97.9 F 100 23 152/100 100 07/26/18 09:54 07/26/18 14:08 07/26/18 14:08 07/26/18 14:08 07/26/18 14:08 General appearance: Present: A&O X 3, no acute distress, obese Exam: general - NAD, AOx3, pleasant, cooperative HEENT - NCAT, moist mucus membranes, geographic tongue Internal Med - H&P Results - Labs CBC & Chem 7: 07/26/18 13:03 07/26/18 13:03 Labs: Short CBC 07/26/18 Range/Units 13:03 WBC 8.6 (4.3-11.1) K/mcL Hgb 11.1 L (12.9-16.9) g/dL Hct 32.8 L (37.5-50.1) % Plt Count 242 (140-400) K/mcL Neutrophils # 6.6 (1.6-8.9) K/mcL BMP 07/26/18 13:03 Sodium 138 Potassium 4.6 Chloride 102 Carbon Dioxide 24 BUN 69 H Creatinine 6.49 H Glucose 226 H Calcium 7.5 L Cardiac Enzymes 07/26/18 Range/Units 13:03 Troponin I 0.07 H* (< 0.04) ng/mL Liver Function 07/26/18 Range/Units 13:03 Total Bilirubin 0.3 (0.3-1.0) mg/dL AST 11 L (13-39) Units/L ALT 8 (7-52) Units/L Alkaline Phosphatase 99 (34-104) Units/L Albumin 3.3 L (3.5-5.7) g/dL - Impressions ITS Impressions Chest X-Ray 07/26/18 11:03 IMPRESSION: 1. Findings typical of congestive heart failure. 2. Calcific atherosclerosis aorta. 3. Cardiomegaly. D/ / Bashir Aguero / Bashir Aguero Interpreting Provider: Bashir Aguero Tibia/Fibula X-Ray 07/26/18 11:05 IMPRESSION: No acute bony destruction or soft tissue gas. D/ / Jae Dutton MD / Jae Dutton MD Interpreting Provider: Jae Dutton MD - Assessment and Plan (1) Elevated troponin Current Visit: Yes Status: Acute Assessment and plan: Pt with s/s of typical chest pain and multiple CAD risk factors - pt also reports worsening SOB, orthopnea new in onset and is tacycardia; concern for PE is on differential HEART score of 5 TERESA score of 5 Troponin 0.07 on admission, can be 2/2 to type 2 from ESRD, however, suspicious for ACS/UA 10/26/2017 - pt had JEAN CLAUDE to the mid circumflex Cath report from 05/2018 showed severe 3 vessel disease, LVEF 45% Plan: - cardiology consulted, recommendations appreciated ok w/ starting heparin drip - CTA chest to r/o PE - troponin x3 trending - ECHO pending - continue CAD rx, ASA/plavix/toprol/ranexa/lipitor/imdur - FEN: renal diet - dispo: pt will be in the hospital for inpatient treatment, pt to be seen by cardiology/nephrology and to be treated as an inpt with IV abx (2) Cellulitis Current Visit: Yes Status: Acute Assessment and plan: Pt presenting with increasing draining of wounds of LLE, increased swelling Pt remains afebrile, no WBC count Denies any trauma to the area, no animal bites, no exposure to grasses or trees XR tibula/fibula negative Plan: - wound care consulted - start ancef day 1 IVP Qualifiers: Site of cellulitis: extremity Site of cellulitis of extremity: lower extremity Laterality: left Qualified Code(s): L03.116 - Cellulitis of left lower limb (3) Hypertension Current Visit: No Status: Chronic Assessment and plan: chronic, continue home meds Qualifiers: Hypertension type: essential hypertension Qualified Code(s): I10 - Es sential (primary) hypertension (4) Diabetes Current Visit: No Status: Chronic Assessment and plan: chronic. MDSS. ADA/renal diet. Hold home T2DM meds. Qualifiers: Diabetes mellitus type: type 2 Diabetes mellitus penitentiary insulin use: without coo [employer] founder use Diabetes mellitus complication status: without complication Qualified Code(s): E11.9 - Type 2 diabetes mellitus without complications (5) ESRD (end stage renal disease) Current Visit: No Status: Chronic Assessment and plan: HD MWF. Nephrology consulted. Avoid nephrotoxins. Renally dose rx. Renal diet. HD today. (6) Venous stasis ulcer Current Visit: No Status: Chronic Assessment and plan: Chronic. See above for cellulitis. Qualifiers: Venous stasis ulcer site: other part of lower leg Varicose vein presence: with varicose veins Laterality: left Non-pressure ulcer stage: limited to breakdown of skin Qualified Code(s): I83.028 - Varicose veins of left lower extremity with ulcer other part of lower leg; L97.821 - Non-pressure chronic ulcer of other part of left lower leg limited to breakdown of skin (7) CAD (coronary artery disease) Current Visit: No Status: Chronic Assessment and plan: Chronic. Continue home meds lipitor, toprol, plavix, asa, ranexa, imdur. Cardiology to see. Qualifiers: Coronary Disease-Associated Artery/Lesion type: [place] artery [place] vs. transplanted heart: [place] heart Associated angina: without angina Qualified Code(s): I25.10 - Atherosclerotic heart disease of [place] coronary artery without angina pectoris (8) Acute respiratory failure with hypoxia Current Visit: Yes Status: Acute Assessment and plan: Not on home oxygen, new onset. On 2 L oxygen here. R/O PE. (9) Nausea & vomiting Current Visit: Yes Status: Acute Assessment and plan: prn zofran. Qualifiers: Vomiting type: unspecified Qualified Code(s): R11.2 - Nausea with vomiting, unspecified (10) Restless leg syndrome Current Visit: No Status: Chronic Assessment and plan: continue requip. (11) Chest pain Current Visit: Yes Status: Acute Assessment and plan: See above for elevated troponin. Differential includes ACS vs PE. Qualifiers: Chest pain type: unspecified Qualified Code(s): R07.9 - Chest pain, unspecified (12) DVT prophylaxis Current Visit: No Status: Acute Assessment and plan: heparin drip - Time Spent With Patient Total time spent is greater than 50% in coordination of care (as documented) at patient's floor/unit and/or counseling patient: 25 - 35 minutes <Damon Sutton - Last Filed: 07/27/18 22:16> Date of Encounter: 07/27/18 Internal Medicine - H&P: HPI History of present illness: Mr. Hernandez is a 53 year old male All Systems PM: A 10-system review of systems was performed and is negative for pertinent findings except as documented above in the HPI. - Constitutional Vitals: Temp Pulse Resp BP Pulse Ox 97.8 F 75 18 110/62 95 07/27/18 19:18 07/27/18 19:18 07/27/18 19:18 07/27/18 19:18 07/27/18 20:51 Internal Med - H&P Results - Labs CBC & Chem 7: 07/27/18 03:45 07/27/18 03:45 Labs: Short CBC 07/27/18 Range/Units 03:45 WBC 7.3 (4.3-11.1) K/mcL Hgb 10.2 L (12.9-16.9) g/dL Hct 30.3 L (37.5-50.1) % Plt Count 195 (140-400) K/mcL BMP 07/27/18 03:45 Sodium 139 Potassium 4.3 Chloride 98 Carbon Dioxide 25 BUN 38 H Creatinine 4.89 H Glucose 172 H Calcium 7.7 L Cardiac Enzymes 07/27/18 Range/Units 03:45 Troponin I 0.06 H* (< 0.04) ng/mL Liver Function 07/27/18 Range/Units 03:45 Albumin 3.0 L (3.5-5.7) g/dL - Impressions ITS Impressions Chest X-Ray 07/26/18 11:03 IMPRESSION: 1. Findings typical of congestive heart failure. 2. Calcific atherosclerosis aorta. 3. Cardiomegaly. D/ / Bashir Aguero / Bashir Aguero Interpreting Provider: Bashir Aguero Tibia/Fibula X-Ray 07/26/18 11:05 IMPRESSION: No acute bony destruction or soft tissue gas. D/ / Jae Dutton MD / Jae Dutton MD Interpreting Provider: Jae Dutton MD Chest CTA 07/26/18 16:40 IMPRESSION: 1. No evidence of pulmonary embolism. 2. Moderate bilateral pleural effusions with compressive atelectasis of both lungs. The pleural fluid is new from the chest CT performed just over 1 month ago. The pleural fluid is of unclear etiology. Thoracentesis could be performed for diagnostic and/or therapeutic purposes if clinically warranted. D/ / Jesus Peraza MD / Jesus Peraza MD Interpreting Provider: Jesus Peraza MD Echocardiogram Limited Views 07/26/18 16:44 Impressions: LVEF 45%. Mild global left ventricular systolic dysfunction. Mildly dilated left ventricle. Atypical septal motion noted. Left Ventricular Wall Motion: Rest Echo Findings The apex, apical inferior, mid inferior, basal inferior, apical anterior, mid anterior, basal anterior, apical septal, mid inferior septal, basal inferior septal, apical lateral, mid anterior lateral, basal anterior lateral, mid anterior septal, mid inferior lateral, basal anterior septal and basal inferior lateral rubio were hypokinetic. Findings: Study Quality * Technically adequate exam. ECG Findings * Normal sinus rhythm. Left Ventricle * LVEF 45%. Mild global left ventricular systolic dysfunction. * There is no LV thrombus. * Definity echo contrast was used. * Atypical septal motion noted. * Mildly dilated left ventricle. * Mild global left ventricular systolic dysfunction. - Time Spent With Patient Total time spent is greater than 50% in coordination of care (as documented) at patient's floor/unit and/or counseling patient: - Attending Attestation I have reviewed resident documentation and agree with above.
[2018-07-26] MEDS ORDERED: Naloxone 0.4 MG/ML INJ IVP PRN (16:21)
[2018-07-26] MEDS ORDERED: D5% in Water 1,000 ML IVC PRN (16:26)
[2018-07-26] MEDS ORDERED: *HR* Dextrose 50 % in Water (Syg) 50 ML SYRINGE IVP PRN (16:26)
[2018-07-26] MEDS ORDERED: Dextrose Gel 15 GM/37.5 ML TUBE PO PRN ×2 (16:26)
[2018-07-26] MEDS ORDERED: Isovue-370 500 ML BOTTLE IVP ONE (16:40)
--- NOTE | 2018-07-26 16:40 | Nephrology Consult Note ---
Date of Encounter: 07/26/18 Time of Encounter: 16:39 Assessment and Plan (1) ESRD (end stage renal disease) on dialysis Current Visit: No Status: Chronic ESRD on HD MWF and his last HD was on Thursday, and he is due for HD today. I recommend having a low threshold for calciphylaxis based upon the appearance of LE wounds: so, I recommend giving Sodium Thiosulfate 25gm IV over the last hour of HD, which I've ordered today. He should have this continued after this admission as well. Peripheral edema: lasix recommended. Thank you for consulting the [facility]; I will be available on Thursday and , if needed and will return on Thursday for his next HD. In the meantime, please feel free to call or page me with any renal questions. (2) Cellulitis Current Visit: Yes Status: Acute Appreciate primary team. Qualifiers: Site of cellulitis: extremity Site of cellulitis of extremity: lower extremity Laterality: left Qualified Code(s): L03.116 - Cellulitis of left lower limb (3) Anemia in chronic kidney disease Current Visit: No Status: Chronic Goal Hgb is 10-11. Will provide KAITLYNN and / or IV iron as needed. Qualifiers: Chronic kidney disease stage: on chronic dialysis Qualified Code(s): N18.6 - End stage renal disease; D63.1 - Anemia in chronic kidney disease; Z99.2 - Dependence on renal dialysis (4) Calciphylaxis Current Visit: Yes Status: Acute See above. Skin biopsy is not needed for the diagnosis. (5) Peripheral edema Current Visit: Yes Status: Acute See above, re: lasix. History of Present Illness - Reason for Consult Consult date: 07/26/18 end stage renal disease Requesting physician: Juwan Shearer - Chief Complaint ESRD, Missed HD - History of Present Illness Abelardo Hernandez is a very pleasant 53 y/o WM with a pmh of T2DM, HTN, ESRD on HD MWF and chronic LE wounds who presented with worsening LE wound pain. Nephro was consulted as he did not go to the HD unit today and is due for dialysis today (Thursday). He reported slowly progressive LE pains and worsening swelling and sharp pains. He has been feeling fatigued and said that he has a hx of chest pains. Dialysis was last completed on Past Med Surg Social Fam HX - Past Medical History Medical history: coronary artery disease, diabetes, dialysis, hypertension, renal disease Additional medical history: Gastric ulcers. Type II Diabetic Psychiatric history: no psych history - Past Surgical History Surgical History: cholecystectomy, vascular surgery, other Additional surgical history: 2 cardiac stent, esophageal bypass - Social History Smoking Status: Never smoker Smokeless Tobacco Status: No Alcohol use: none Drug use: none - Family History Mother Adopted: No Living Status: Hx Family Cardiac Disorders: Yes (mother stroke) Hx Family Respiratory Disorders: Yes (Dad asthma copd) Hx Family Cancer: Yes (prostate, pancreatic) Hx Family GI Disorders: No Hx Family Endocrine Disorder: Yes (DM) Hx Family Neuromuscular Disorders: No Hx Family Neurologic Disorders: No Hx Family HEENT Disorders: No Hx Family Autoimmune Disorders: No Father Adopted: No Living Status: Hx Family Cardiac Disorders: Yes Hx Family Respiratory Disorders: Yes Hx Family Cancer: No Hx Family GI Disorders: No Hx Family Endocrine Disorder: Yes Hx Family Neuromuscular Disorders: No Hx Family Neurologic Disorders: No Hx Family HEENT Disorders: No Hx Family Autoimmune Disorders: No Medications and Allergies Aspirin [Lo-Dose Aspirin EC] 81 mg PO DAILY 07/30/17 [History] Ergocalciferol (VITAMIN D2) [Vitamin D2] 2 cap PO WE 09/24/17 [History] Insulin ASPART [NovoLOG] 0 unit SQ TIDWM 09/24/17 [History] Clopidogrel [Plavix] 75 mg PO DAILY #30 tablet 10/29/17 [Rx] Insulin Glargine,Hum.rec.anlog [Basaglar Kwikpen U-100] 0 unit SQ HS 02/01/18 [History] Tramadol HCl [Ultram] 50 mg PO Q6H PRN 04/15/18 [History] rOPINIRole [Requip] 0.25 mg PO HS 06/18/18 [History] Atorvastatin [Lipitor] 40 mg PO HS 07/26/18 [History] Calcium Carbonate [Calcium] 600 mg PO DAILY 07/26/18 [History] Isosorbide MONOnitrate (24 HR) [Imdur] 30 mg PO DAILY 07/26/18 [History] Metoprolol Succinate [Toprol Xl] 25 mg PO DAILY 07/26/18 [History] Nitroglycerin [Nitrostat] 0.4 mg SL Q5MIN PRN 07/26/18 [History] Ondansetron ODT [Zofran ODT] 4 mg SL Q6HR PRN 07/26/18 [History] Pantoprazole Sodium [Protonix] 40 mg PO BID 07/26/18 [History] Ranolazine [Ranexa] 500 mg PO BID 07/26/18 [History] Allergy/AdvReac Type Severity Reaction Status Date / Time No Known Allergies Allergy Verified 07/26/18 09:54 Review of Systems All Systems: reviewed and no additional remarkable complaints except as stated Exam - Vital Signs Vital signs: Initial Vital Signs Temp Pulse Resp BP Pulse Ox 97.9 F 96 18 206/106 94 07/26/18 09:54 07/26/18 09:54 07/26/18 09:54 07/26/18 09:54 07/26/18 09:54 Vital Signs - Last 8 Hours Temp Pulse Resp BP Pulse Ox 07/26/18 14:08 100 23 152/100 100 07/26/18 13:43 97 17 07/26/18 11:01 87 16 182/91 97 07/26/18 09:54 97.9 F 96 18 206/106 94 Intake and Output 07/26/18 07/26/18 07/26/18 07:59 15:59 23:59 Other: Weight 104.689 kg Patient Weight 07/26/18 23:59 Weight 104.689 kg - General Appearance General appearance: well-developed, well-nourished, appears started age, chronically ill EENT: ATNC, PERRL, mucous membranes moist Neck: supple Respiratory: clear Cardiology: edema (1-2+ pretibial pitting edema b/l), normal S1, normal S2 - Dialysis Access Dialysis Vascular Access: Arteriovenous Fistula (left forearm AVF) thrill: Yes bruit: Yes Gastrointestinal: normoactive bowel sounds, no tenderness, no guarding Integumentary: rash, erythema, hyperpigmentation, chronic venous stasis Neurologic: no focal deficit, no asterixis Musculoskeletal: no cyanosis Psychiatric: cooperative (with nervous affect) Results - Lab Results 07/26/18 13:03 07/26/18 13:03 Most recent lab results Calcium 7.5 mg/dL (8.6-10.3) L 07/26/18 13:03 Consult Discharge Plan - Plan Referrals: Miya Aden, [Primary Care Provider] -
--- NOTE | 2018-07-26 16:50 | Electrocardiograph Report ---
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
[2018-07-26] MEDS ORDERED: traMADol 50 MG TABLET PO PRN (16:51)
[2018-07-26] MEDS ORDERED: Nitroglycerin 0.4 MG TAB.SUBL SL PRN (16:51)
[2018-07-26] MEDS ORDERED: *HR* Heparin 5,000 UNIT/ML VIAL IVP ONE (16:57)
[2018-07-26] MEDS ORDERED: *HR* Heparin 5,000 UNIT/ML VIAL IVP PRN ×2 (16:57)
[2018-07-26] MEDS ORDERED: Heparin 25,000 UNIT/250 ML D5W 25,000 UNIT/250 ML IV.SOLN IVC SCH (17:00)
[2018-07-26 17:38] LABS: Heparin anti-factor XA UFH 0.03 IU/mL (0.30-0.70)
[2018-07-26 17:39] LABS: Prothrombin Time 11.4 Seconds (9.4-12.1)
[2018-07-26] MEDS: Insulin LISPRO 300 UNITS/3 ML VIAL SQ SCH ×2 (17:40→22:13)
[2018-07-26] MEDS ORDERED: Perflutren Lipid Microsphere 1.3 ML in 0.9 % Sodium Chloride 8.7 ML IVP ONE (17:40)
[2018-07-26] MEDS ORDERED: Perflutren Lipid Microsphere 2 ML VIAL ONE (17:45)
[2018-07-26] MEDS ORDERED: *HR* Heparin 5,000 UNIT/ML VIAL SQ SCH (18:00)
[2018-07-26] MEDS ORDERED: 0.9 % Sodium Chloride 1,000 ML ONE (18:13)
[2018-07-26] MEDS: Sodium Thiosulfate 25 GM in EMPTY BAG 1 EACH IVPB SCH (18:20)
[2018-07-26] MEDS ORDERED: *HR* OxyCODONE/APAP 10/325 TABLET PO ONE (18:26)
[2018-07-26] MEDS ORDERED: *HR* OxyCODONE/APAP 10/325 TABLET PO PRN (18:26)
[2018-07-26] MEDS ORDERED: *HR* Labetalol 20 MG/4 ML SYRINGE IVP SCH (18:30)
[2018-07-26] MEDS: Ranolazine 500 MG TAB.ER.12H PO SCH (20:32)
[2018-07-26] MEDS: rOPINIRole 0.25 MG TABLET PO SCH (20:32)
[2018-07-26] MEDS: ceFAZolin 1,000 MG in Water for inj. (sterile) 20 ML 10 ML IVP SCH (20:34)
[2018-07-27] MEDS ORDERED: *HR* Labetalol 20 MG/4 ML SYRINGE IVP SCH (02:30)
[2018-07-27 03:55] LABS: Hematocrit 30.3 % (37.5-50.1); Hemoglobin 10.2 g/dL (12.9-16.9); Mean Corpuscular HGB Conc 33.7 g/dL (31.6-35.5); Mean Corpuscular Hemoglobin 30.2 pg (28.0-33.3); Mean Corpuscular Volume 89.6 fL (83.0-100.0); Mean Platelet Volume 8.8 fL (9.4-12.4); Platelet Count 195 K/mcL (140-400); Red Blood Count 3.38 M/mcL (4.19-5.50); Red Cell Distribution Width 14.6 % (11.5-14.5)
[2018-07-27 04:14] LABS: Phosphorous 4.5 mg/dL (2.7-4.5)
[2018-07-27 04:15] LABS: Calcium 7.7 mg/dL (8.6-10.3); Potassium 4.3 mEq/L (3.5-5.1)
--- NOTE | 2018-07-27 07:05 | Internal Med Progress Note ---
Hospitalist Progress Note - Encounter Date of Encounter: 07/27/18 - Exam Vitals: Temp Pulse Resp BP Pulse Ox 97.9 F 73 18 126/72 95 07/27/18 04:03 07/27/18 04:03 07/27/18 04:03 07/27/18 04:03 07/27/18 04:03 - Assessment and Plan (1) Elevated troponin Current Visit: Yes Status: Acute (2) Cellulitis Current Visit: Yes Status: Acute (3) Hypertension Current Visit: No Status: Chronic (4) Diabetes Current Visit: No Status: Chronic (5) ESRD (end stage renal disease) Current Visit: No Status: Chronic (6) Venous stasis ulcer Current Visit: No Status: Chronic (7) CAD (coronary artery disease) Current Visit: No Status: Chronic (8) Acute respiratory failure with hypoxia Current Visit: Yes Status: Acute (9) Nausea & vomiting Current Visit: Yes Status: Acute (10) Restless leg syndrome Current Visit: No Status: Chronic (11) Chest pain Current Visit: Yes Status: Acute (12) DVT prophylaxis Current Visit: No Status: Acute - Time Spent with Patient Total time spent is greater than 50% in coordination of care (as documented) at patient's floor/unit and/or counseling patient: Internal Medicine: Result - Labs CBC & Chem 7: 07/27/18 03:45 07/27/18 03:45 Labs: Short CBC 07/26/18 07/27/18 Range/Units 13:03 03:45 WBC 8.6 7.3 (4.3-11.1) K/mcL Hgb 11.1 L 10.2 L (12.9-16.9) g/dL Hct 32.8 L 30.3 L (37.5-50.1) % Plt Count 242 195 (140-400) K/mcL Neutrophils # 6.6 (1.6-8.9) K/mcL BMP 07/26/18 07/27/18 13:03 03:45 Sodium 138 139 Potassium 4.6 4.3 Chloride 102 98 Carbon Dioxide 24 25 BUN 69 H 38 H Creatinine 6.49 H 4.89 H Glucose 226 H 172 H Calcium 7.5 L 7.7 L Cardiac Enzymes 07/26/18 07/26/18 07/27/18 Range/Units 13:03 19:30 03:45 Troponin I 0.07 H* 0.07 H* 0.06 H* (< 0.04) ng/mL Liver Function 07/26/18 07/27/18 Range/Units 13:03 03:45 Total Bilirubin 0.3 (0.3-1.0) mg/dL AST 11 L (13-39) Units/L ALT 8 (7-52) Units/L Alkaline Phosphatase 99 (34-104) Units/L Albumin 3.3 L 3.0 L (3.5-5.7) g/dL - ABG Interpretation ABG results: PT/INR, D-dimer PT 11.4 Seconds (9.4-12.1) 07/26/18 17:11 - Impressions Impressions Chest X-Ray 07/26/18 11:03 IMPRESSION: 1. Findings typical of congestive heart failure. 2. Calcific atherosclerosis aorta. 3. Cardiomegaly. D/ / Bashir Aguero / Bashir Aguero Interpreting Provider: Bashir Aguero Tibia/Fibula X-Ray 07/26/18 11:05 IMPRESSION: No acute bony destruction or soft tissue gas. D/ / Jae Dutton MD / Jae Dutton MD Interpreting Provider: Jae Dutton MD Chest CTA 07/26/18 16:40 IMPRESSION: 1. No evidence of pulmonary embolism. 2. Moderate bilateral pleural effusions with compressive atelectasis of both lungs. The pleural fluid is new from the chest CT performed just over 1 month ago. The pleural fluid is of unclear etiology. Thoracentesis could be performed for diagnostic and/or therapeutic purposes if clinically warranted. D/ / Jesus Peraza MD / Jesus Peraza MD Interpreting Provider: Jesus Peraza MD Echocardiogram Limited Views 07/26/18 16:44 Impressions: LVEF 45%. Mild global left ventricular systolic dysfunction. Mildly dilated left ventricle. Atypical septal motion noted. Left Ventricular Wall Motion: Rest Echo Findings The apex, apical inferior, mid inferior, basal inferior, apical anterior, mid anterior, basal anterior, apical septal, mid inferior septal, basal inferior septal, apical lateral, mid anterior lateral, basal anterior lateral, mid anterior septal, mid inferior lateral, basal anterior septal and basal inferior lateral rubio were hypokinetic. Findings: Study Quality * Technically adequate exam. ECG Findings * Normal sinus rhythm. Left Ventricle * LVEF 45%. Mild global left ventricular systolic dysfunction. * There is no LV thrombus. * Definity echo contrast was used. * Atypical septal motion noted. * Mildly dilated left ventricle. * Mild global left ventricular systolic dysfunction. Consult Discharge Plan - Plan Referrals: Miya Aden DO [Primary Care Provider] - (2) Cellulitis Qualifiers: Site of cellulitis: extremity Site of cellulitis of extremity: lower extremity Laterality: left Qualified Code(s): L03.116 - Cellulitis of left lower limb (3) Hypertension Qualifiers: Hypertension type: essential hypertension Qualified Code(s): I10 - Essential (primary) hypertension (4) Diabetes Qualifiers: Diabetes mellitus type: type 2 Diabetes mellitus terminologist insulin use: without terminologist use Diabetes mellitus complication status: without complication Qualified Code(s): E11.9 - Type 2 diabetes mellitus without complications (6) Venous stasis ulcer Qualifiers: Venous stasis ulcer site: other part of lower leg Varicose vein presence: with varicose veins Laterality: left Non-pressure ulcer stage: limited to breakdown of skin Qualified Code(s): I83.028 - Varicose veins of left lower extremity with ulcer other part of lower leg; L97.821 - Non-pressure chronic ulcer of other part of left lower leg limited to breakdown of skin (7) CAD (coronary artery disease) Qualifiers: Coronary Disease-Associated Artery/Lesion type: [place] artery [place] vs. transplanted heart: [place] heart Associated angina: without angina Qualified Code(s): I25.10 - Atherosclerotic heart disease of [place] coronary artery without angina pectoris (9) Nausea & vomiting Qualifiers: Vomiting type: unspecified Qualified Code(s): R11.2 - Nausea with vomiting, unspecified (11) Chest pain Qualifiers: Chest pain type: unspecified Qualified Code(s): R07.9 - Chest pain, unspecified
[2018-07-27] MEDS ORDERED: traMADol 50 MG TABLET PO PRN (07:22)
[2018-07-27] MEDS ORDERED: *HR* Labetalol 20 MG/4 ML SYRINGE IVP PRN (07:22)
--- NOTE | 2018-07-27 07:29 | Internal Med Progress Note ---
<MandeepkamilaBrook - Last Filed: 07/27/18 13:47> Hospitalist Progress Note - Encounter Date of Encounter: 07/27/18 Time of Encounter: 08:20 - Subjective Interval History: Pt sitting on the edge of the bed, NAD. Pt reports he still has significant pain in his LLE, worse than yesterday. Pt also reports feeling nausea without vomit ing and fatigued, although he often feels fatigued the day after dialysis. Pt also reports one episode of squeezing L sided CP yesterday evening, while he was laying in bed, which self resolved after 15 minutes. Pt denies CP associated with increased SOB, nausea/vomiting. - Exam Vitals: Temp Pulse Resp BP Pulse Ox 97.7 F 76 18 137/74 96 07/27/18 07:10 07/27/18 07:10 07/27/18 07:10 07/27/18 07:10 07/27/18 07:10 Exam: general - NAD, AOx3, answers all questions appropriately with intermittent eye contact HEENT - NCAT, moist mucus membranes, geographic tongue Resp - CTAB, no wheezes or rales, speaking in full sentences CV: RRR, no murmurs. B/l LE 2+ pitting edema, more L than R Skin: warm and dry. Lower extremities with chronic nura stasus changes. LLE warm with more pitting edema than RLE. wraps in place from ankle to knee, to protect ulcers Neuro: A&O to person place and time. moves all extremities. Psych: intermittent eye contact with depressed affect, however pt smiles appropriately and reports his mood as "fatigued" - Assessment and Plan (1) Elevated troponin Current Visit: Yes Status: Acute Assessment and Plan: Pt with s/s of typical chest pain and multiple CAD risk factors - pt also reports worsening SOB, orthopnea new in onset and is tacycardia; concern for PE is on differential HEART score of 5 TERESA score of 5 Troponin 0.07 on admission, repeat 0.06 can be 2/2 to type 2 from ESRD, however, suspicious for ACS/UA 10/26/2017 - pt had JEAN CLAUDE to the mid circumflex Cath report from 05/2018 showed severe 3 vessel disease, LVEF 45% Echo: LVEF 45%. Mild global left ventricular systolic dysfunction * There is no LV thrombus. * Definity echo contrast was used. * Atypical septal motion noted. * Mildly dilated left ventricle. * Mild global left ventricular systolic dysfunction CTA: No evidence of pulmonary embolism. Moderate bilateral pleural effusions with compressive atelectasis of both lungs. The pleural fluid is new from the chest CT performed just over 1 month ago. The pleural fluid is of unclear etiology. Thoracentesis could be performed for diagnostic and/or therapeutic purposes if clinically warranted. Plan: - cardiology consulted, recommendation: likely 2/2 demand ischemia, nondiagnostic for ACS Will increase Imdur to 60mg and Ranexa to 1000mg no further workup anticipated -Consider thorocentesis after IV duiresis and HD current risks of pneumothorax, infection outweigh benefits of improving dyspnea - continue CAD rx, ASA/plavix/toprol/ranexa/lipitor/imdur - FEN: renal diet - dispo: treated as an inpt with IV abx (2) Cellulitis Current Visit: Yes Status: Acute Assessment and Plan: Pt presenting with increasing draining of wounds of LLE, increased swelling Pt remains afebrile, no WBC count Denies any trauma to the area, no animal bites, no exposure to grasses or trees XR tibula/fibula negative Plan: - wound care consulted - continue ancef day 2 IVP -plan to transition to PO meds tomorrow ( (3) Pleural effusion Current Visit: Yes Status: Acute Assessment and Plan: Likely 2/[address]: Moderate bilateral pleural effusions with compressive atelectasis of both lungs. The pleural fluid is new from the chest CT performed just over 1 month ago. The pleural fluid is of unclear etiology. 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 B/l pleural effusions with rec of thorocentesis Continue lasix 40 IV and MWF HD (7) ESRD (end stage renal disease) on dialysis Current Visit: No Status: Chronic Assessment and Plan: HD MWF, received yesterday evening Nephrology following: rec lasix 40mg IV for peripheral edema Suggest 25gm sodium thiosulfate during HD Avoid nephrotoxins. Renally dose rx. Renal diet. (8) Chest pain Current Visit: Yes Status: Acute Assessment and Plan: See above for elevated troponin Ddx: ASC vs PE ) (9) Nausea & vomiting Current Visit: Yes Status: Acute Assessment and Plan: PRN zofran (10) CAD (coronary artery disease) Current Visit: No Status: Chronic Assessment and Plan: Chronic. Contin home meds lipitor, toprol, plavix, asa, ranexa, imdur. Cardiology rec: Will increase Imdur to 60mg and Ranexa to 1000mg (11) Diabetes Current Visit: No Status: Chronic Assessment and Plan: chronic. MDSS. ADA/renal diet. Hold home T2DM meds. (12) Restless leg syndrome Current Visit: No Status: Chronic Assessment and Plan: continue requip. (13) Hypertension Current Visit: No Status: Chronic Assessment and Plan: Chronic, continue home meds (14) HFrEF (heart failure with reduced ejection fraction) Current Visit: Yes Status: Acute Assessment and Plan: LVEF 45% as above. treatment as above (15) DVT prophylaxis Current Visit: No Status: Acute Assessment and Plan: Heparin drip (16) Obesity (BMI 30.0-34.9) Current Visit: Yes Status: Chronic Assessment and Plan: BMI 33.2 Chronic DVT Prophylaxis: heparin drip - Time Spent with Patient Total time spent is greater than 50% in coordination of care (as documented) at patient's floor/unit and/or counseling patient: Internal Medicine: Result - Labs CBC & Chem 7: 07/27/18 03:45 07/27/18 03:45 Labs: Short CBC 07/26/18 07/27/18 Range/Units 13:03 03:45 WBC 8.6 7.3 (4.3-11.1) K/mcL Hgb 11.1 L 10.2 L (12.9-16.9) g/dL Hct 32.8 L 30.3 L (37.5-50.1) % Plt Count 242 195 (140-400) K/mcL Neutrophils # 6.6 (1.6-8.9) K/mcL BMP 07/26/18 07/27/18 13:03 03:45 Sodium 138 139 Potassium 4.6 4.3 Chloride 102 98 Carbon Dioxide 24 25 BUN 69 H 38 H Creatinine 6.49 H 4.89 H Glucose 226 H 172 H Calcium 7.5 L 7.7 L Cardiac Enzymes 07/26/18 07/26/18 07/27/18 Range/Units 13:03 19:30 03:45 Troponin I 0.07 H* 0.07 H* 0.06 H* (< 0.04) ng/mL Liver Function 07/26/18 07/27/18 Range/Units 13:03 03:45 Total Bilirubin 0.3 (0.3-1.0) mg/dL AST 11 L (13-39) Units/L ALT 8 (7-52) Units/L Alkaline Phosphatase 99 (34-104) Units/L Albumin 3.3 L 3.0 L (3.5-5.7) g/dL - ABG Interpretation ABG results: PT/INR, D-dimer PT 11.4 Seconds (9.4-12.1) 07/26/18 17:11 - Impressions Impressions Chest X-Ray 07/26/18 11:03 IMPRESSION: 1. Findings typical of congestive heart failure. 2. Calcific atherosclerosis aorta. 3. Cardiomegaly. D/ / Bashir Aguero / Bashir Aguero Interpreting Provider: Bashir Aguero Tibia/Fibula X-Ray 07/26/18 11:05 IMPRESSION: No acute bony destruction or soft tissue gas. D/ / Jae Dutton MD / Jae Dutton MD Interpreting Provider: Jae Dutton MD Chest CTA 07/26/18 16:40 IMPRESSION: 1. No evidence of pulmonary embolism. 2. Moderate bilateral pleural effusions with compressive atelectasis of both lungs. The pleural fluid is new from the chest CT performed just over 1 month ago. The pleural fluid is of unclear etiology. Thoracentesis could be performed for diagnostic and/or therapeutic purposes if clinically warranted. D/ / Jesus Peraza MD / Jesus Peraza MD Interpreting Provider: Jesus Peraza MD Echocardiogram Limited Views 07/26/18 16:44 Impressions: LVEF 45%. Mild global left ventricular systolic dysfunction. Mildly dilated left ventricle. Atypical septal motion noted. Left Ventricular Wall Motion: Rest Echo Findings The apex, apical inferior, mid inferior, basal inferior, apical anterior, mid anterior, basal anterior, apical septal, mid inferior septal, basal inferior septal, apical lateral, mid anterior lateral, basal anterior lateral, mid anterior septal, mid inferior lateral, basal anterior septal and basal inferior lateral rubio were hypokinetic. Findings: Study Quality * Technically adequate exam. ECG Findings * Normal sinus rhythm. Left Ventricle * LVEF 45%. Mild global left ventricular systolic dysfunction. * There is no LV thrombus. * Definity echo contrast was used. * Atypical septal motion noted. * Mildly dilated left ventricle. * Mild global left ventricular systolic dysfunction. Consult Discharge Plan - Plan Referrals: Miya Aden DO [Primary Care Provider] - <Damon Sutton - Last Filed: 07/27/18 21:10> Hospitalist Progress Note - Encounter Date of Encounter: 07/27/18 - Exam Vitals: Temp Pulse Resp BP Pulse Ox 97.8 F 75 18 110/62 95 07/27/18 19:18 07/27/18 19:18 07/27/18 19:18 07/27/18 19:18 07/27/18 20:51 - Time Spent with Patient Total time spent is greater than 50% in coordination of care (as documented) at patient's floor/unit and/or counseling patient: Internal Medicine: Result - Labs CBC & Chem 7: 07/27/18 03:45 07/27/18 03:45 Labs: Short CBC 07/27/18 Range/Units 03:45 WBC 7.3 (4.3-11.1) K/mcL Hgb 10.2 L (12.9-16.9) g/dL Hct 30.3 L (37.5-50.1) % Plt Count 195 (140-400) K/mcL BMP 07/27/18 03:45 Sodium 139 Potassium 4.3 Chloride 98 Carbon Dioxide 25 BUN 38 H Creatinine 4.89 H Glucose 172 H Calcium 7.7 L Cardiac Enzymes 07/26/18 07/27/18 Range/Units 19:30 03:45 Troponin I 0.07 H* 0.06 H* (< 0.04) ng/mL Liver Function 07/27/18 Range/Units 03:45 Albumin 3.0 L (3.5-5.7) g/dL - ABG Interpretation ABG results: PT/INR, D-dimer PT 11.4 Seconds (9.4-12.1) 07/26/18 17:11 - Impressions Impressions Echocardiogram Limited Views 07/26/18 16:44 Impressions: LVEF 45%. Mild global left ventricular systolic dysfunction. Mildly dilated left ventricle. Atypical septal motion noted. Left Ventricular Wall Motion: Rest Echo Findings The apex, apical inferior, mid inferior, basal inferior, apical anterior, mid anterior, basal anterior, apical septal, mid inferior septal, basal inferior septal, apical lateral, mid anterior lateral, basal anterior lateral, mid anterior septal, mid inferior lateral, basal anterior septal and basal inferior lateral rubio were hypokinetic. Findings: Study Quality * Technically adequate exam. ECG Findings * Normal sinus rhythm. Left Ventricle * LVEF 45%. Mild global left ventricular systolic dysfunction. * There is no LV thrombus. * Definity echo contrast was used. * Atypical septal motion noted. * Mildly dilated left ventricle. * Mild global left ventricular systolic dysfunction. - Attending Attestation I examined this patient and my medical decision-making was reviewed with the Resident Physician and Medical student. I agree with the documented findings, disposition and treatment plan as described except to the extent set forth below. No acute events. Patient states breathing better but left leg still bothersome. VS: reviewed, stable. Physical exam, gen: NAD, CVS: RRR, lungs: course breath sounds, fair air exchanges, Ext: bilateral pitting edema, left more than right with chronic would ulcers on left. Labs: reviewed. Chest pain appeared to be resolved, Cardio eval, no further intervention needed but titration of Imdur will be done for CP. Continue HD per schedule. Antibiotics. <Brook Mcfadden - Last Filed: 07/27/18 13:47> (2) Cellulitis Qualifiers: Site of cellulitis: extremity Site of cellulitis of extremity: lower extremit y Laterality: left Qualified Code(s): L03.116 - Cellulitis of left lower limb (5) Venous stasis ulcer Qualifiers: Venous stasis ulcer site: other part of lower leg Varicose vein presence: wit h varicose veins Laterality: left Non-pressure ulcer stage: limited to breakdown of skin Qualified Code(s): I83.028 - Varicose veins of left lower extremity with ulcer other part of lower leg; L97.821 - Non-pressure chronic ulcer of other part of left lower leg limited to breakdown of skin (8) Chest pain Qualifiers: Chest pain type: unspecified Qualified Code(s): R07.9 - Chest pain, unspecified (9) Nausea & vomiting Qualifiers: Vomiting type: unspecified Qualified Code(s): R11.2 - Nausea with vomiting, unspecified (10) CAD (coronary artery disease) Qualifiers: Coronary Disease-Associated Artery/Lesion type: [place] artery [place] vs. transplanted heart: [place] heart Associated angina: without angina Qualified Code(s): I25.10 - Atherosclerotic heart disease of [place] coronary artery without angina pectoris (11) Diabetes Qualifiers: Diabetes mellitus type: type 2 Diabetes mellitus mcc insulin use: without building components designer use Diabetes mellitus complication status: without complication Qualified Code(s): E11.9 - Type 2 diabetes mellitus without complications (13) Hypertension Qualifiers: Hypertension type: essential hypertension Qualified Code(s): I10 - Essential (primary) hypertension
[2018-07-27] MEDS ORDERED: Isosorbide MONOnitrate (24 HR) 30 MG TAB.ER.24H PO SCH (09:00)
[2018-07-27] MEDS: Ranolazine 500 MG TAB.ER.12H PO SCH ×2 (09:01→21:00)
[2018-07-27] MEDS: *HR* OxyCODONE/APAP 10/325 TABLET PO PRN ×3 (09:01→21:01)
[2018-07-27] MEDS: Metoprolol XL (24 HR) Succ 25 MG TAB.ER.24H PO SCH (09:01)
[2018-07-27] MEDS: Furosemide 40 MG/4 ML VIAL IVP SCH (09:01)
[2018-07-27] MEDS: Aspirin Enteric Coated 81 MG Tablet PO SCH (09:01)
[2018-07-27] MEDS: Insulin LISPRO 300 UNITS/3 ML VIAL SQ SCH ×4 (09:17→20:49)
--- NOTE | 2018-07-27 10:56 | Cardiology Consult Note ---
<James Dubose - Last Filed: 07/27/18 11:14> Date of Encounter: 07/27/18 Time of Encounter: 10:52 Assessment and Plan (1) Elevated troponin Current Visit: Yes Status: Acute Troponins 0.07, 0.07, 0.06 in setting of ESRD on dialysis. Likely demand ischemia, nondiagnostic for ACS. Hx of chronically borderline troponins since April. TTE EF 45%--mild global dysfunction. TTE 05/2018 EF 45-50%, essentially unchanged. [facility] 05/2018 without intervention--severe 3V CAD, small, tortuous arteries. LCx stent from prior procedure was patent. No further cardiac testing warranted. Anticipate sign off once seen and evaluated by Dr. Bravo. (2) Chest pain Current Visit: Yes Status: Acute Pt reports intermittent chest pain over the past 2 days--left sided, squeezing, lasts minutes. [facility] 05/2018 severe 3V CAD, small and tortuous. Prior LCx patent. Medical management was recommended. Currently on Imdur 30mg daily and Ranexa 500mg BID. Will increase Imdur to 60mg and Ranexa to 1000mg. Chest CTA No evidence of pulmonary embolism. Moderate bilateral pleural effusions with compressive atelectasis of both lungs. The pleural fluid is new from the chest CT performed just over 1 month ago. of unclear etiology. Thoracentesis could be performed for diagnostic and/or therapeutic purposes if clinically warranted. Will leave that decision to primary team. Qualifiers: Chest pain type: unspecified Qualified Code(s): R07.9 - Chest pain, unspecified (3) CAD (coronary artery disease) Current Visit: No Status: Chronic Continue ASA, Statin, Plavix, BB. As above, increasing nitrates. Qualifiers: Coronary Disease-Associated Artery/Lesion type: [place] artery [place] vs. transplanted heart: [place] heart Associated angina: without angina Qualified Code(s): I25.10 - Atherosclerotic heart disease of [place] coronary artery without angina pectoris (4) Swelling of left lower extremity Current Visit: Yes Status: Acute Presented with LLE swelling. Per H&P, DVT study was negative for acute DVT but did show superficial DVT. Management per primary team. Discussion w patient/family: The assessment and plan as outlined above was discussed with the patient and/or family members who expressed understanding and agreement. All questions were answered. Thank you for involving us in the care of your patient. Please call with any questions. History of Present Illness Consult date: 07/27/18 Consult reason: elevated troponin, chest pain Chief complaint: chest pain, LLE edema History of present illness: Mr. Hernandez is a 53 year old male with PMH of ESRD on HD MWF, venous stasis, T2DM, CAD, HFrEF, oral candidasis, RLS, and HTN. He presented from HD due to concerns of infxn of the LLE ulcers. He states he has also had some increased swelling of the LLE and this is new from his baseline. He has c/o chest pain. He does have a hx of CAD and is s/p LHC in 05/2018 with severe 3V CAD, no intervention. He states left sided chest pain started a couple of days ago, squeezing/pressure, lasts minutes. Troponins 0.07, 0.07, 0.6. DVT study was negative for acute DVT but did show superficial DVT. Cardiology consulted for further recs. TTE resulte d--EF 45%, mild global systolic dysfunction. Prior CV testing: Limited TTE 07/26/18: LVEF 45%. Mild global left ventricular systolic dysfunction. Mildly dilated left ventricle. Atypical septal motion noted. [facility] 06/03/18: There is severe three vessel coronary artery disease. The left ventricle is normal and has abnormal contractility EF 45%. No circumflex artery stent restenosis. The LMCA is angiographically free of disease. There is a 80% stenosis in the Mid LAD. Vessel is small and diffusely diseased. There is a 80% stenosis in the Distal LAD. Vessel is small and diffusely diseased. There is a stenosis in the 1st Diagonal. There is a patent stent in the Mid Circumflex. There is a 15% stenosis in the Distal Circumflex. There is a 20% stenosis in the 1st Marginal. Vessel is diffusely diseased. There is a 60% stenosis in the proximal Ramus. Vessel is diffusely diseased. There is a 20% stenosis in the pRCA, 30% mRCA. 95% dRCA. Vessel is small and diffusely diseased. There is a 95% stenosis in the Right PDA. Vessel is small and diffusely diseased. TTE 06/03/18: Technically challenging due to body habitus. Normal sinus rhythm vs ectopic atrial rhythm. Occasional ventricular ectopy. LVEF 45-50%. Definity echo contrast was used. Low normal to mildly reduced global LV systolic function. Mild left ventricular diastolic dysfunction. Normal right ventricular structure and function. No significant valvular dysfunction. No pulmonary hypertension. Past Med Surg Social Fam HX - Past Medical History Medical history: coronary artery disease, diabetes, dialysis, hypertension, renal disease Additional medical history: Gastric ulcers. Type II Diabetic Psychiatric history: no psych history - Past Surgical History Surgical History: cholecystectomy, vascular surgery, other Additional surgical history: 2 cardiac stent, esophageal bypass - Social History Smoking Status: Never smoker Smokeless Tobacco Status: No Alcohol use: none Drug use: none - Family History Mother Adopted: No Living Status: Hx Family Cardiac Disorders: Yes (mother stroke) Hx Family Respiratory Disorders: Yes (Dad asthma copd) Hx Family Cancer: Yes (prostate, pancreatic) Hx Family GI Disorders: No Hx Family Endocrine Disorder: Yes (DM) Hx Family Neuromuscular Disorders: No Hx Family Neurologic Disorders: No Hx Family HEENT Disorders: No Hx Family Autoimmune Disorders: No Father Adopted: No Living Status: Hx Family Cardiac Disorders: Yes Hx Family Respiratory Disorders: Yes Hx Family Cancer: No Hx Family GI Disorders: No Hx Family Endocrine Disorder: Yes Hx Family Neuromuscular Disorders: No Hx Family Neurologic Disorders: No Hx Family HEENT Disorders: No Hx Family Autoimmune Disorders: No Medications and Allergies Aspirin [Lo-Dose Aspirin EC] 81 mg PO DAILY 07/30/17 [History] Ergocalciferol (VITAMIN D2) [Vitamin D2] 2 cap PO WE 09/24/17 [History] Insulin ASPART [NovoLOG] 0 unit SQ TIDWM 09/24/17 [History] Clopidogrel [Plavix] 75 mg PO DAILY #30 tablet 10/29/17 [Rx] Insulin Glargine,Hum.rec.anlog [Basaglar Kwikpen U-100] 0 unit SQ HS 02/01/18 [ History] Tramadol HCl [Ultram] 50 mg PO Q6H PRN 04/15/18 [History] rOPINIRole [Requip] 0.25 mg PO HS 06/18/18 [History] Atorvastatin [Lipitor] 40 mg PO HS 07/26/18 [History] Calcium Carbonate [Calcium] 600 mg PO DAILY 07/26/18 [History] Isosorbide MONOnitrate (24 HR) [Imdur] 30 mg PO DAILY 07/26/18 [History] Metoprolol Succinate [Toprol Xl] 25 mg PO DAILY 07/26/18 [History] Nitroglycerin [Nitrostat] 0.4 mg SL Q5MIN PRN 07/26/18 [History] Ondansetron ODT [Zofran ODT] 4 mg SL Q6HR PRN 07/26/18 [History] Pantoprazole Sodium [Protonix] 40 mg PO BID 07/26/18 [History] Ranolazine [Ranexa] 500 mg PO BID 07/26/18 [History] Allergy/AdvReac Type Severity Reaction Status Date / Time No Known Allergies Allergy Verified 07/26/18 09:54 All Systems Review: The remainder of the systems were reviewed and are negative - Cardiovascular Cardiovascular: as per HPI, chest pain at rest, dyspnea at rest, dyspnea on exertion, leg edema - Respiratory Respiratory: dyspnea Physical Examination Vital Signs, Last 4 Hours Temp Pulse Resp BP Pulse Ox 07/27/18 09:10 96 07/27/18 07:10 97.7 F 76 18 137/74 96 Vital Signs Temp Pulse Resp BP Pulse Ox 07/27/18 09:10 96 07/27/18 07:10 97.7 F 76 18 137/74 96 07/27/18 04:03 97.9 F 73 18 126/72 95 07/27/18 02:45 151/78 07/26/18 23:30 98.1 F 97 18 124/67 97 07/26/18 21:11 98.1 F 81 17 177/101 95 07/26/18 19:37 97.7 F 18 192/100 07/26/18 19:20 198/96 07/26/18 19:05 178/91 07/26/18 18:50 182/94 07/26/18 18:35 201/101 07/26/18 18:20 197/94 07/26/18 18:05 200/92 07/26/18 17:50 205/85 07/26/18 17:35 189/100 07/26/18 17:20 193/91 07/26/18 17:05 204/106 07/26/18 16:50 197/103 07/26/18 16:35 203/91 07/26/18 16:20 191/104 07/26/18 16:05 198/108 07/26/18 15:50 97.7 F 18 198/99 07/26/18 14:08 100 23 152/100 100 07/26/18 13:43 97 17 Intake and Output 07/26/18 07/27/18 07/27/18 23:59 07:59 15:59 Intake Total 135 / 135 0 / 0 390 / 390 Output Total 2900 / 2900 100 / 100 500 / 500 Balance -2765 / -2765 -100 / -100 -110 / -110 Intake: IV Fluids 135 / 135 Heparin 25,000 UNIT/250 ML D5W 25 / 25 25,000 unit In 250 ml @ 10 mls/ hr IVC .Q24H [facility] Rx#:[id number] Ancef 1,000 MG In Water for inj . (sterile) 10 ML @ 200 mls/hr IVP Q24H [facility] Rx#:[id number] Sodium Thiosulfate 25 GM In 100 / 100 Empty Bag 1 Each @ 100 mls/hr IVPB MoWeFr [facility] Rx#:[id number] Oral 0 / 0 0 / 0 390 / 390 Output: Urine 300 / 300 100 / 100 Total Dialysis (HD) Output 2600 / 2600 Straight Cath 500 / 500 Other: Meal Breakfast Percent of Meal Consumed 50% # Voids 1 Weight 104.8 kg Blood Glucose* 195 202 Hemodialysis Net Fluid Removed 2000 (mL) General: Conversant, No Apparent Distress HEENT: Atraumatic, Normocephaly, Mucus Membranes Moist Neck: No JVD, Normal carotid pulses Cardiac: Reg Rate and Rhythm, Normal S1 and S2, No Murmur Lungs: Other (diminished) Neuro: Alert and responsive, No focal deficits noted Abdomen: Soft, Non-Tender Skin: No rashes noted on visualized skin Musculoskeletal: No Chest Wall Tenderness Extremities: Other (LLE edema) Results 07/27/18 03:45 07/27/18 03:45 Lab Results 07/26/18 07/26/18 07/26/18 13:03 13:03 13:03 WBC 8.6 Hgb 11.1 L Hct 32.8 L Plt Count 242 INR Sodium 138 Potassium 4.6 Chloride 102 Carbon Dioxide 24 BUN 69 H Creatinine 6.49 H Glucose 226 H Calcium 7.5 L Total Bilirubin 0.3 AST 11 L ALT 8 Alkaline Phosphatase 99 Troponin I 0.07 H* B-Natriuretic Peptide 1106 H 07/26/18 07/26/18 07/27/18 17:11 19:30 03:45 WBC Hgb Hct Plt Count INR 1.0 Sodium Potassium Chloride Carbon Dioxide BUN Creatinine Glucose Calcium Total Bilirubin AST ALT Alkaline Phosphatase Troponin I 0.07 H* 0.06 H* B-Natriuretic Peptide 07/27/18 07/27/18 03:45 03:45 WBC 7.3 Hgb 10.2 L Hct 30.3 L Plt Count 195 INR Sodium 139 Potassium 4.3 Chloride 98 Carbon Dioxide 25 BUN 38 H Creatinine 4.89 H Glucose 172 H Calcium 7.7 L Total Bilirubin AST ALT Alkaline Phosphatase Troponin I B-Natriuretic Peptide Short CBC 07/27/18 07/26/18 Range/Units 03:45 13:03 WBC 7.3 8.6 (4.3-11.1) K/mcL Hgb 10.2 L 11.1 L (12.9-16.9) g/dL Hct 30.3 L 32.8 L (37.5-50.1) % Plt Count 195 242 (140-400) K/mcL Neutrophils # 6.6 (1.6-8.9) K/mcL BMP 07/27/18 07/26/18 Range/Units 03:45 13:03 Sodium 139 138 (136-145) mEq/L Potassium 4.3 4.6 (3.5-5.1) mEq/L Chloride 98 102 (98-107) mEq/L Carbon Dioxide 25 24 (23-29) mEq/L BUN 38 H 69 H (6-20) mg/dL Creatinine 4.89 H 6.49 H (0.70-1.30) mg/dL Glucose 172 H 226 H (70-105) mg/dL Calcium 7.7 L 7.5 L (8.6-10.3) mg/dL Cardiac Enzymes 07/27/18 07/26/18 07/26/18 Range/Units 03:45 19:30 13:03 Troponin I 0.06 H* 0.07 H* 0.07 H* (< 0.04) ng/mL Liver Function 07/27/18 07/26/18 Range/Units 03:45 13:03 Total Bilirubin 0.3 (0.3-1.0) mg/dL AST 11 L (13-39) Units/L ALT 8 (7-52) Units/L Alkaline Phosphatase 99 (34-104) Units/L Albumin 3.0 L 3.3 L (3.5-5.7) g/dL Impressions Chest X-Ray 07/26/18 11:03 IMPRESSION: 1. Findings typical of congestive heart failure. 2. Calcific atherosclerosis aorta. 3. Cardiomegaly. D/ / Bashir Aguero / Bashir Aguero Interpreting Provider: Bashir Aguero Tibia/Fibula X-Ray 07/26/18 11:05 IMPRESSION: No acute bony destruction or soft tissue gas. D/ / Jae Dutton MD / Jae Dutton MD Interpreting Provider: Jae Dutton MD Chest CTA 07/26/18 16:40 IMPRESSION: 1. No evidence of pulmonary embolism. 2. Moderate bilateral pleural effusions with compressive atelectasis of both lungs. The pleural fluid is new from the chest CT performed just over 1 month ago. The pleural fluid is of unclear etiology. Thoracentesis could be performed for diagnostic and/or therapeutic purposes if clinically warranted. D/ / Jesus Peraza MD / Jesus Peraza MD Interpreting Provider: Jesus Peraza MD Echocardiogram Limited Views 07/26/18 16:44 Impressions: LVEF 45%. Mild global left ventricular systolic dysfunction. Mildly dilated left ventricle. Atypical septal motion noted. Left Ventricular Wall Motion: Rest Echo Findings The apex, apical inferior, mid inferior, basal inferior, apical anterior, mid anterior, basal anterior, apical septal, mid inferior septal, basal inferior septal, apical lateral, mid anterior lateral, basal anterior lateral, mid anterior septal, mid inferior lateral, basal anterior septal and basal inferior lateral rubio were hypokinetic. Findings: Study Quality * Technically adequate exam. ECG Findings * Normal sinus rhythm. Left Ventricle * LVEF 45%. Mild global left ventricular systolic dysfunction. * There is no LV thrombus. * Definity echo contrast was used. * Atypical septal motion noted. * Mildly dilated left ventricle. * Mild global left ventricular systolic dysfunction. Active Medications Aspirin (Aspirin Ec) 81 mg PO DAILY [facility] Stop: 01/26/19 09:01 Last Admin: 07/27/18 09:01 Dose: 81 mg Atorvastatin Calcium (Lipitor) 40 mg PO HS [facility] Stop: 01/25/19 21:01 Last Admin: 07/26/18 20:32 Dose: 40 mg Clopidogrel Bisulfate (Plavix) 75 mg PO DAILY [facility] Stop: 01/26/19 09:01 Last Admin: 07/27/18 09:01 Dose: 75 mg Dextrose/Water (Dextrose 50% (Syg)) 25 ml IVP AD PRN PRN Reason: Hypoglycemia Stop: 01/25/19 16:27 Furosemide (Lasix) 40 mg IVP DAILY [facility] Stop: 01/26/19 09:01 Last Admin: 07/27/18 09:01 Dose: 40 mg Glucagon (Glucagen) 1 mg IM ONCE PRN PRN Reason: Hypoglycemia Stop: 01/25/19 16:27 Glucose (Gluctose) 15 gm PO ONCE PRN PRN Reason: Hypoglycemia Stop: 01/25/19 16:27 Glucose (Gluctose) 30 gm PO ONCE PRN PRN Reason: Hypoglycemia Stop: 01/25/19 16:27 Heparin Sodium (Porcine) (Heparin) 5,000 unit SQ Q12HCO [facility] Stop: 01/26/19 18:01 Hydralazine HCl (Hydralazine) 10 mg IVP Q6HR PRN PRN Reason: Hypertension Stop: 01/25/19 18:50 Sodium Chloride (0.9 % Sodium Chloride) 250 mls @ 937.5 mls/hr IVC .Q16M PRN PRN Reason: Hypotension Stop: 01/25/19 14:28 Sodium Chloride (0.9 % Sodium Chloride) 1,000 mls @ 0 mls/hr PRIME .Q0M [facility] Stop: 01/25/19 14:31 Dextrose (Dextrose 5%) 1,000 mls @ 100 mls/hr IVC .Q10H PRN PRN Reason: HYPOGLYCEMIA Stop: 01/25/19 16:27 Cefazolin Sodium 1,000 mg/ (Sterile Water) 10 mls @ 200 mls/hr IVP Q24H [facility]; Protocol Stop: 01/25/19 20:01 Last Infusion: 07/26/18 20:37 Dose: Infused Sodium Thiosulfate 25 gm/ (Miscellaneous) 100 mls @ 100 mls/hr IVPB MoWeFr [facility] Stop: 01/25/19 17:01 Last Infusion: 07/26/18 19:20 Dose: Infused Insulin Human Lispro (Humalog) 0 units SQ HS [facility]; Protocol Stop: 01/25/19 21:01 Last Admin: 07/26/18 22:13 Dose: Not Given Insulin Human Lispro (Humalog) 0 units SQ TIDAC [facility]; Protocol Stop: 01/25/19 16:31 Last Admin: 07/27/18 09:17 Dose: 6 units Isosorbide Mononitrate (Imdur) 30 mg PO DAILY [facility] Stop: 01/26/19 09:01 Last Admin: 07/27/18 09:01 Dose: 30 mg Labetalol HCl (Labetalol) 10 mg IVP Q6H PRN PRN Reason: Hypertension Stop: 01/26/19 02:31 Metoprolol Succinate (Toprol Xl) 25 mg PO DAILY [facility] Stop: 01/26/19 09:01 Last Admin: 07/27/18 09:01 Dose: 25 mg Naloxone HCl (Narcan) 0.4 mg IVP Q2M PRN PRN Reason: SEE COMMENTS Stop: 01/25/19 16:22 Nitroglycerin (Nitroglycerin) 0.4 mg SL Q5MIN PRN PRN Reason: Chest Pain Stop: 01/25/19 16:52 [facility]: 01/25/19 17:46 Last Admin: 07/27/18 09:01 Dose: 20 mg Ondansetron HCl (Zofran Odt) 4 mg SL Q6HR PRN PRN Reason: n/v Stop: 01/25/19 16:52 Oxycodone/Acetaminophen (Percocet 10/325) 1 each PO Q6HR PRN PRN Reason: Severe Pain Stop: 01/25/19 18:27 Last Admin: 07/27/18 09:01 Dose: 1 each Ranolazine (Ranexa) 500 mg PO BID [facility] Stop: 01/25/19 21:01 Last Admin: 07/27/18 09:01 Dose: 500 mg Ropinirole HCl (Requip) 0.25 mg PO HS [facility] Stop: 01/25/19 21:01 Last Admin: 07/26/18 20:32 Dose: 0.25 mg Tramadol HCl (Ultram) 50 mg PO Q6H PRN PRN Reason: Moderate Pain Stop: 01/25/19 16:52 - Imaging and Cardiology Echo: report reviewed Cardiac cath: report reviewed - EKG Interpretation EKG results cardiology: personally reviewed (SR, old inferior infarct) Consult Discharge Plan - Plan Referrals: Miya Aden, DO [Primary Care Provider] - <Leyda Bravo - Last Filed: 07/27/18 15:12> Date of Encounter: 07/27/18 - Attending Attestation Patient was seen and evaluated independently by me. Findings, assessment and p chidi were discussed at length with patient, questions answered. Agree with nurse practitioner's/resident's documentation. Addition as follows, 53 yoCM ho 3-v CAD with patent LCx stent on LHC, HFrEF, ESRD on HD, DM2, venous stasis. P/w recurrent chronic intermittent atypical chest pain and RLE edema and pain. Chronic mild troponin elevation w/o active ischemic changes. TTE EF 45% no sig change c/w last TTE [id number]. Venous duplex neg for DVT. BP fluctuation, mild fluid overload on exam. B/L LE wrapped. BNP 1106 (c/w 329 [id number]) A: Mild troponin elevation, ddx type II NSTEMI, myocardial injury HFrEF, EF 45%, mild fluid overload HTN with BP fluctuation 3-v CAD ESRD on HD P: HD per nephrology up titration of antianginal meds will need add ACEi/ARB and up-titration of BB as BP tolerated f/u cardiology clinic for HFrEF GDMT Leyda Bravo MD, PhD Assessment and Plan Discussion w patient/family: The assessment and plan as outlined above was discussed with the patient and/or family members who expressed understanding and agreement. All questions were answered. Thank you for involving us in the care of your patient. Please call with any questions. History of Present Illness History of present illness: Mr. Hernandez is a 53 year old male All Systems Review: The remainder of the systems were reviewed and are negative Physical Examination Vital Signs, Last 4 Hours Temp Pulse Resp BP Pulse Ox 07/27/18 11:20 97.6 F 81 16 131/69 93 Results 07/27/18 03:45 07/27/18 03:45 Lab Results 07/26/18 07/26/18 07/27/18 17:11 19:30 03:45 WBC Hgb Hct Plt Count INR 1.0 Sodium Potassium Chloride Carbon Dioxide BUN Creatinine Glucose Calcium Troponin I 0.07 H* 0.06 H* 07/27/18 07/27/18 03:45 03:45 WBC 7.3 Hgb 10.2 L Hct 30.3 L Plt Count 195 INR Sodium 139 Potassium 4.3 Chloride 98 Carbon Dioxide 25 BUN 38 H Creatinine 4.89 H Glucose 172 H Calcium 7.7 L Troponin I
[2018-07-27] MEDS ORDERED: Isosorbide MONOnitrate (24 HR) 30 MG TAB.ER.24H PO ONE (11:29)
[2018-07-27] MEDS: Ondansetron ODT 4 MG TAB.RAPDIS SL PRN ×2 (15:14→21:00)
[2018-07-27] MEDS: *HR* Heparin 5,000 UNIT/ML VIAL SQ SCH (17:13)
[2018-07-27] MEDS ORDERED: Insulin DETEMIR 100 UNIT/ML X5UNITS SQ SCH (21:00)
[2018-07-27] MEDS: rOPINIRole 0.25 MG TABLET PO SCH (21:00)
[2018-07-27] MEDS: ceFAZolin 1,000 MG in Water for inj. (sterile) 20 ML 10 ML IVP SCH (21:00)
[2018-07-28] MEDS: *HR* OxyCODONE/APAP 10/325 TABLET PO PRN (04:16)
[2018-07-28] MEDS: *HR* Heparin 5,000 UNIT/ML VIAL SQ SCH (04:17)
[2018-07-28 05:08] LABS: Calcium 8.1 mg/dL (8.6-10.3); Potassium 4.9 mEq/L (3.5-5.1)
[2018-07-28 05:42] LABS: Hematocrit 31.8 % (37.5-50.1); Hemoglobin 10.6 g/dL (12.9-16.9); Mean Corpuscular HGB Conc 33.3 g/dL (31.6-35.5); Mean Corpuscular Hemoglobin 30.2 pg (28.0-33.3); Mean Platelet Volume 9.4 fL (9.4-12.4); Platelet Count 209 K/mcL (140-400); Red Blood Count 3.51 M/mcL (4.19-5.50); Red Cell Distribution Width 14.8 % (11.5-14.5)
[2018-07-28 05:43] LABS: Mean Corpuscular Volume 90.6 fL (83.0-100.0)
[2018-07-28] MEDS ORDERED: 0.9 % Sodium Chloride 250 ML IVC PRN (07:03)
--- NOTE | 2018-07-28 07:08 | Nephrology Progress Note ---
Date of Encounter: 07/28/18 Time of Encounter: 09:35 - Assessment and Plan (1) ESRD (end stage renal disease) on dialysis Status: Chronic HD today (Thursday) with sodium thiosulfate over the last hour of dialysis. Orders in place. I recommend having a low threshold for calciphylaxis based upon the appearance of LE wounds: so, I recommend giving Sodium Thiosulfate 25gm IV over the last hour of HD, which I'll order to continue after dialysis. Peripheral edema: lasix recommended. Thank you (2) Cellulitis Status: Acute Qualifiers: Site of cellulitis: extremity Site of cellulitis of extremity: lower extremity Laterality: left Qualified Code(s): L03.116 - Cellulitis of left lower limb (3) Anemia in chronic kidney disease Status: Chronic Qualifiers: Chronic kidney disease stage: on chronic dialysis Qualified Code(s): N18.6 - End stage renal disease; D63.1 - Anemia in chronic kidney disease; Z99.2 - Dependence on renal dialysis (4) Calciphylaxis Status: Acute (5) Peripheral edema Status: Acute Subjective Principal diagnosis: ESRD Interval history: The was s/e while on HD. He reported feeling a little better. Objective - Vital Signs Vital signs: Vital Signs Temp Pulse Resp BP Pulse Ox 07/28/18 03:37 97.8 F 74 18 106/65 98 07/28/18 00:30 97.8 F 78 18 138/73 98 07/27/18 20:51 95 07/27/18 19:18 97.8 F 75 18 110/62 96 07/27/18 15:54 97.3 F L 74 16 127/71 96 07/27/18 11:20 97.6 F 81 16 131/69 93 07/27/18 09:10 96 07/27/18 07:10 97.7 F 76 18 137/74 96 Intake and Output 07/27/18 07/27/18 07/28/18 15:59 23:59 07:59 Intake Total 750 / 750 360 / 360 Output Total 500 / 500 150 / 150 Balance 250 / 250 210 / 210 Intake: Oral 750 / 750 360 / 360 Output: Straight Cath 500 / 500 150 / 150 Other: Meal Lunch Dinner Percent of Meal Consumed 100% 100% Weight 104.2 kg Blood Glucose* 126 194 Patient Weight 07/28/18 23:59 Weight 104.2 kg - General Appearance Exam: General appearance: well-developed, well-nourished, appears started age, chronically ill EENT: ATNC, PERRL, mucous membranes moist Neck: supple Respiratory: clear Cardiology: edema (1-2+ pretibial pitting edema b/l), normal S1, normal S2 - Dialysis Access Dialysis Vascular Access: Arteriovenous Fistula (left forearm AVF) thrill: Yes bruit: Yes Gastrointestinal: normoactive bowel sounds, no tenderness, no guarding Integumentary: rash, erythema, hyperpigmentation, chronic venous stasis Neurologic: no focal deficit, no asterixis Musculoskeletal: no cyanosis Psychiatric: cooperative (with nervous affect) - Lab 07/28/18 05:19 07/28/18 04:33 Most recent lab results Calcium 8.1 mg/dL (8.6-10.3) L 07/28/18 04:33 Phosphorus 4.5 mg/dL (2.7-4.5) 07/27/18 03:45 Consult Discharge Plan - Plan Instructions: Cephalexin (By mouth), Lisinopril (By mouth), Furosemide (By mouth), Isosorbide Mononitrate (By mouth), Ranolazine (By mouth) Referrals: Matt Lemus MD [Non-Partnered Physician] - (office will call you with an appointment) Miya Aden DO [Primary Care Provider] - 08/04/18 (Please call to see what time your appointment will be with on the ) Leyda Bravo MD [Non-Partnered Physician] - (Office will call you with an appointment date and time) Prescriptions: cephALEXin [Keflex] 500 mg PO QID 7 Days #28 capsule Furosemide [Lasix] 40 mg PO DAILY 30 Days #30 tablet Isosorbide MONOnitrate (24 HR) [Imdur] 60 mg PO DAILY 30 Days #60 tab.er.24h Lisinopril 2.5 mg PO DAILY 30 Days #30 tablet Ranolazine [Ranexa] 1,000 mg PO BID 30 Days #120 tab.er.12h
[2018-07-28] MEDS: Insulin LISPRO 300 UNITS/3 ML VIAL SQ SCH ×2 (07:44→12:21)
[2018-07-28] MEDS: Metoprolol XL (24 HR) Succ 25 MG TAB.ER.24H PO SCH (07:45)
[2018-07-28] MEDS: Ranolazine 500 MG TAB.ER.12H PO SCH (07:45)
[2018-07-28] MEDS: Furosemide 40 MG/4 ML VIAL IVP SCH (07:45)
[2018-07-28] MEDS: Aspirin Enteric Coated 81 MG Tablet PO SCH (07:45)
--- NOTE | 2018-07-28 07:47 | Discharge Summary ---
<Bebeto Metcalf S - Last Filed: 07/28/18 11:09> - NOTES TO OUTPATIENT PROVIDER Notes to Outpatient Provider: Follow up with PCP in 1 week. Complete antibiotic course. Cardiology f/u and increase imdur 60mg daily and ranexa 1000mg BID. Started lisinopril 2.5 mg daily and will contiue this as an outpatient, card iology to titrate up. Also continue lasix 40mg PO daily. Follow pleural effusions B/L. 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 Orders not resulted at time of discharge: Pending orders 07/27/18 04:30 Troponin I Q6H 07/29/18 04:00 Basic Metabolic Panel AM 0400 CBC no Diff [Complete Blood Count w/o Diff] [HEME] AM 0400 07/30/18 04:00 Basic Metabolic Panel AM 0400 CBC no Diff [Complete Blood Count w/o Diff] [HEME] AM 0400 07/31/18 04:00 Basic Metabolic Panel AM 0400 CBC no Diff [Complete Blood Count w/o Diff] [HEME] AM 0400 08/01/18 04:00 Basic Metabolic Panel AM 0400 CBC no Diff [Complete Blood Count w/o Diff] [HEME] AM 0400 08/02/18 04:00 Basic Metabolic Panel AM 0400 CBC no Diff [Complete Blood Count w/o Diff] [HEME] AM 0400 08/03/18 04:00 Basic Metabolic Panel AM 0400 CBC no Diff [Complete Blood Count w/o Diff] [HEME] AM 0400 Date of Encounter: 07/28/18 Time of Encounter: 09:01 - Discharge Diagnosis (1) Elevated troponin Priority: Secondary Status: Acute (2) Cellulitis Priority: Primary Status: Acute Qualifiers: Site of cellulitis: extremity Site of cellulitis of extremity: lower extremity Laterality: left Qualified Code(s): L03.116 - Cellulitis of left lower limb (3) Hypertension Priority: Secondary Status: Chronic Qualifiers: Hypertension type: essential hypertension Qualified Code(s): I10 - Essential (primary) hypertension (4) Diabetes Priority: Secondary Status: Chronic Qualifiers: Diabetes mellitus type: type 2 Diabetes mellitus watermelon inspector insulin use: without watermelon inspector use Diabetes mellitus complication status: without complication Qualified Code(s): E11.9 - Type 2 diabetes mellitus without c omplications (5) ESRD (end stage renal disease) Priority: Secondary Status: Chronic (6) Venous stasis ulcer Priority: Secondary Status: Chronic Qualifiers: Venous stasis ulcer site: other part of lower leg Varicose vein presence: with varicose veins Laterality: left Non-pressure ulcer stage: limited to breakdown of skin Qualified Code(s): I83.028 - Varicose veins of left lower extremity with ulcer other part of lower leg; L97.821 - Non-pressure chronic ulcer of other part of left lower leg limited to breakdown of skin (7) CAD (coronary artery disease) Priority: Secondary Status: Chronic Qualifiers: Coronary Disease-Associated Artery/Lesion type: [place] artery [place] vs. transplanted heart: [place] heart Associated angina: without angina Qualified Code(s): I25.10 - Atherosclerotic heart disease of [place] coronary artery without angina pectoris (8) Acute respiratory failure with hypoxia Priority: Secondary Status: Resolved (9) Nausea & vomiting Priority: Secondary Status: Resolved Qualifiers: Vomiting type: unspecified Qualified Code(s): R11.2 - Nausea with vomiting, unspecified (10) Restless leg syndrome Priority: Secondary Status: Chronic (11) Chest pain Priority: Secondary Status: Resolved Qualifiers: Chest pain type: unspecified Qualified Code(s): R07.9 - Chest pain, unspecified (12) DVT prophylaxis Priority: Secondary Status: Acute Hospital course: Mr. Hernandez is a 53 year old male with PMH of ESRD on HD MWF, venous stasis, T2DM, CAD, HFrEF, oral candidasis, RLS, and HTN. He presented on 07.26.18 from HD due to concerns of infxn of the LLE ulcers. He states he has also had some increased swelling of the LLE and this is new from his baseline. He states that he noticed this yesterday and has had some increasing white drainage from the wounds. He denies any fevers/chills. He also denies recent trauma, animal bites or exposure to thorns/bushes outside. He has c/o chest pain. He does have a hx of CAD and is s/p LHC in 05/2018. He states that he has chest pain starting yesterday over his heart and it is squeezing/pressure like. He states it doesn't radiate anywhere. He didn't take anything for it. Nothing makes it better or worse. He denies N/V assoc with it or diaphoresis. He denies any pre-syncopal like episodes, dizziness or numbness/tingling. He has had pain like this before however. He denies any active chest pain. He also has new onset SOB and states that he doesn't wear oxygen at home. He states that he has been having increasing trouble laying down on his back and that this is new for him. He states that he feels like he can't breathe when he lays back and that he usually isn't so short of breath. In the ER he was found to have a troponin of 0.07. EKG showed no new ST elevation or ischemic changes. XR chest showed CHF and cardiomegaly. DVT study was negative for acute DVT but did show superficial DVT. Chest CT to r/o PE was engative for PE but did show pleural effusions b/l, maanged with diuresis. Repeat troponin was 0.07 and 0.06. Cardiology was consulted and recommended medical management. They increased imdur and ranexa as listed below. While in the hospital he had two session of HD. He received 3 days of IV ancef and will be d/c with keflex x 7 more days for a total of 10 days therapy. PTOT recommended HH and referral to be made. Also prescription given to charge nurse for front wheeled wheelchair. Cardiology recomennded increasing Imdur to 60mg and ranexa to 1000mg BID, these rx have been changed. Have also started 2.5 mg Lisinopril and first dose given here, cardiology to uptirtrate. Continue Lasix 40mg PO daily. 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 F/u with cardiology an an outpaitnet. F/U with PCP in 1 week.Pt is stable for discharge. Discharge discussed with: patient, nurse Time spent discussing smoking cessation with patient: 3 to 10 minutes - Time Spent with Patient Total time spent providing and/or coordinating discharge services: Time spent: Greater than 30 minutes - Discharge Medications Prescriptions: New Isosorbide MONOnitrate (24 HR) [Imdur] 60 mg PO DAILY 30 Days #60 tab.er.24h Ranolazine [Ranexa] 1,000 mg PO BID 30 Days #120 tab.er.12h cephALEXin [Keflex] 500 mg PO QID 7 Days #28 capsule Furosemide [Lasix] 40 mg PO DAILY 30 Days #30 tablet Lisinopril 2.5 mg PO DAILY 30 Days #30 tablet Continue Aspirin [Lo-Dose Aspirin EC] 81 mg PO DAILY Insulin ASPART [NovoLOG] 0 unit SQ TIDWM Ergocalciferol (VITAMIN D2) [Vitamin D2] 2 cap PO WE Clopidogrel [Plavix] 75 mg PO DAILY #30 tablet Insulin Glargine,Hum.rec.anlog [Basaglar Kwikpen U-100] 0 unit SQ HS Tramadol HCl [Ultram] 50 mg PO Q6H PRN PRN Reason: Pain rOPINIRole [Requip] 0.25 mg PO HS Atorvastatin [Lipitor] 40 mg PO HS Calcium Carbonate [Calcium] 600 mg PO DAILY Metoprolol Succinate [Toprol Xl] 25 mg PO DAILY Nitroglycerin [Nitrostat] 0.4 mg SL Q5MIN PRN PRN Reason: Chest Pain Ondansetron ODT [Zofran ODT] 4 mg SL Q6HR PRN PRN Reason: n/v Pantoprazole Sodium [Protonix] 40 mg PO BID Discontinued Isosorbide MONOnitrate (24 HR) [Imdur] 30 mg PO DAILY Ranolazine [Ranexa] 500 mg PO BID Home Medications: Aspirin [Lo-Dose Aspirin EC] 81 mg PO DAILY 07/30/17 [History] Ergocalciferol (VITAMIN D2) [Vitamin D2] 2 cap PO WE 09/24/17 [History] Insulin ASPART [NovoLOG] 0 unit SQ TIDWM 09/24/17 [History] Clopidogrel [Plavix] 75 mg PO DAILY #30 tablet 10/29/17 [Rx] Insulin Glargine,Hum.rec.anlog [Basaglar Kwikpen U-100] 0 unit SQ HS 02/01/18 [History] Tramadol HCl [Ultram] 50 mg PO Q6H PRN 04/15/18 [History] rOPINIRole [Requip] 0.25 mg PO HS 06/18/18 [History] Atorvastatin [Lipitor] 40 mg PO HS 07/26/18 [History] Calcium Carbonate [Calcium] 600 mg PO DAILY 07/26/18 [History] Metoprolol Succinate [Toprol Xl] 25 mg PO DAILY 07/26/18 [History] Nitroglycerin [Nitrostat] 0.4 mg SL Q5MIN PRN 07/26/18 [History] Ondansetron ODT [Zofran ODT] 4 mg SL Q6HR PRN 07/26/18 [History] Pantoprazole Sodium [Protonix] 40 mg PO BID 07/26/18 [History] Furosemide [Lasix] 40 mg PO DAILY 30 Days #30 tablet 07/28/18 [Rx] Isosorbide MONOnitrate (24 HR) [Imdur] 60 mg PO DAILY 30 Days #60 tab.er.24h 07/28/18 [Rx] Lisinopril 2.5 mg PO DAILY 30 Days #30 tablet 07/28/18 [Rx] Ranolazine [Ranexa] 1,000 mg PO BID 30 Days #120 tab.er.12h 07/28/18 [Rx] cephALEXin [Keflex] 500 mg PO QID 7 Days #28 capsule 07/28/18 [Rx] Allergies/Adverse Reactions: Allergy/AdvReac Type Severity Reaction Status Date / Time No Known Allergies Allergy Verified 07/26/18 09:54 Date of admission: 07/26/18 14:37 Primary care physician: Jacobo Booker Consults: 07/26/18 12:15 PICC Consult [Consult to Invasive Line Access Team] [CONS] Stat Reason for Consult: Limited access Line Type: Midline 07/26/18 14:18 Consult to Nephrology [CONS] Stat Consulting Provider: Kidney Mary Jo/MARGO/MAGDALENA/JUSTICE Reason for Consult: HD Call Completed: Yes 07/26/18 14:30 Consult to Dialysis [CONS] ONCE 07/26/18 15:52 Consult to Wound Care [CONS] Routine Reason for Consult: LE ulcers Call Completed: No 07/26/18 16:23 Consult to Physical Therapy [CONS] Routine Comment: Evaluate, develop and implement POC Reason for Consult: ptot Does patient have active BEDREST order?: No Is patient medically & hemodynamically stable?: Yes Patient assessed for mobility or mobilized this visit?: No 07/26/18 16:24 Consult to Occupational Therapy [CONS] Routine Comment: Evaluate, develop and implement POC Reason for Consult: ptot Does patient have active BEDREST order?: No Is patient medically & hemodynamically stable?: Yes Patient assessed for mobility or mobilized this visit?: No 07/26/18 16:40 Consult to Cardiology [CONS] Routine Comment: Consulting Provider: Cardiology Mary Jo Reason for Consult: elevated troponin, hx of stents Call Completed: No 07/28/18 07:15 Consult to Dialysis [CONS] QMWF 07/30/18 07:15 Consult to Dialysis [CONS] QMWF Discharging clinician: Bebeto Metcalf Anticipated date of discharge: 07/28/18 - Constitutional Vitals: Temp Pulse Resp BP Pulse Ox 97.5 F L 80 18 128/82 96 07/28/18 07:32 07/28/18 07:32 07/28/18 07:32 07/28/18 07:32 07/28/18 07:32 General appearance: Present: A&O X 3, no acute distress, obese Exam: general - NAD, AOx3, answers all questions appropriately with intermittent eye contact HEENT - NCAT, moist mucus membranes, geographic tongue Resp - CTAB, no wheezes or rales, speaking in full sentences CV: RRR, no murmurs. B/l LE 2+ pitting edema, more L than R Skin: warm and dry. Lower extremities with chronic nura stasus changes. LLE warm with more pitting edema than RLE. wraps in place from ankle to knee, to protect ulcers Neuro: A&O to person place and time. moves all extremities. Psych: intermittent eye contact with depressed affect, however pt smiles appropriately and reports his mood as "fatigued" - Patient Status Disposition: Home Health Service Condition: Fair Functional capacity at discharge: uses cane/walker Overall status at discharge: patient is progressing back to baseline - Discharge Instructions Instructions: Cephalexin (By mouth), Lisinopril (By mouth), Furosemide (By mouth), Isosorbide Mononitrate (By mouth), Ranolazine (By mouth) Follow Up With: Miya Aden DO [Primary Care Provider] - 08/04/18 Leyda Bravo MD [Non-Partnered Physician] - (Office will call you with an appointment date and time) - Diet and Activity Activity: as per physical therapy, increase activity as tolerated Diet: diabetic diet <Lluvia Appiah - Last Filed: 07/28/18 12:21> Orders not resulted at time of discharge: Pending orders 07/29/18 04:00 Basic Metabolic Panel AM 0400 CBC no Diff [Complete Blood Count w/o Diff] [HEME] AM 04007/30/18 04:00 Basic Metabolic Panel AM 0400 CBC no Diff [Complete Blood Count w/o Diff] [HEME] AM 04007/31/18 04:00 Basic Metabolic Panel AM 0400 CBC no Diff [Complete Blood Count w/o Diff] [HEME] AM 04008/01/18 04:00 Basic Metabolic Panel AM 0400 CBC no Diff [Complete Blood Count w/o Diff] [HEME] AM 04008/02/18 04:00 Basic Metabolic Panel AM 0400 CBC no Diff [Complete Blood Count w/o Diff] [HEME] AM 04008/03/18 04:00 Basic Metabolic Panel AM 0400 CBC no Diff [Complete Blood Count w/o Diff] [HEME] AM 0400 Date of Encounter: 07/28/18 Hospital course: Mr. Hernandez is a 53 year old male - Time Spent with Patient Total time spent providing and/or coordinating discharge services: Time spent: Greater than 30 minutes (45 min) Date of admission: 07/26/18 14:37 Primary care physician: Jacobo Booker Consults: 07/26/18 12:15 PICC Consult [Consult to Invasive Line Access Team] [CONS] Stat Reason for Consult: Limited access Line Type: Midline 07/26/18 14:18 Consult to Nephrology [CONS] Stat Consulting Provider: Kidney Mary Jo/MARGO/MAGDALENA/JUSTICE Reason for Consult: HD Call Completed: Yes 07/26/18 14:30 Consult to Dialysis [CONS] ONCE 07/26/18 15:52 Consult to Wound Care [CONS] Routine Reason for Consult: LE ulcers Call Completed: No 07/26/18 16:23 Consult to Physical Therapy [CONS] Routine Comment: Evaluate, develop and implement POC Reason for Consult: ptot Does patient have active BEDREST order?: No Is patient medically & hemodynamically stable?: Yes Patient assessed for mobility or mobilized this visit?: No 07/26/18 16:24 Consult to Occupational Therapy [CONS] Routine Comment: Evaluate, develop and implement POC Reason for Consult: ptot Does patient have active BEDREST order?: No Is patient medically & hemodynamically stable?: Yes Patient assessed for mobility or mobilized this visit?: No 07/26/18 16:40 Consult to Cardiology [CONS] Routine Comment: Consulting Provider: Cardiology Recluse Reason for Consult: elevated troponin, hx of stents Call Completed: No 07/28/18 07:15 Consult to Dialysis [CONS] QMWF 07/28/18 08:12 Consult to Nurse Navigator [CONS] Routine Comment: hd 07/30/18 07:15 Consult to Dialysis [CONS] QMWF - Constitutional Vitals: Temp Pulse Resp BP Pulse Ox 97.7 F 80 18 104/81 96 07/28/18 07:55 07/28/18 07:32 07/28/18 07:55 07/28/18 11:10 07/28/18 07:32 - Diet and Activity Diet: other (renal and cardiac) - Attending Attestation I examined this patient and my medical decision-making was reviewed with the Resident Physician Dr Metcalf. I agree with the documented findings, disposition and treatment plan as described except to the extent set forth below. Mr Hernandez was admitted with LE cellulitis, possible calciphylaxis and treated presumably for both. He has significant CAD hx and had chest pain this admission that was managed medically by cardiology. He is discharging to home in stable condition with [facility]. awake in HD, no sob, chest pain pressure or palpitations. Lying flat in bed. Over all feeling much improved. No fevers, chills, n/v. no leg pain gen- alert, awake,appears stated age eyes- pupils equal round cv- reg rate and rhythm, normal s1,s2, no murmurs appreciated, bl le in compression jeannine wraps and no le edema appreciated lungs- ctabl, no wheezing, rhonchi or crackles, normal resp effort on o2 nc abd- soft, non tender, non distended, + bs skin- bl le wrapped with dressing c/d/i neuro- AAOx3 Possible LLE Cellulitis Empiric treatment of Calciphylaxis given his ESRD hx -complete abx course oral -cont IV sodium thiosulfate at outpt HD sessions as dw nephro Elevated trop in setting of ESRD Chest Pain, resolved, with significant CAD hx and obstructive disease not amenable to stenting Acute on Chronic Systolic CHF with BL pleural effusions HTN -appreciate cardiology following this admit -cont medical management as per cards and outpt follow up -asa, plavix, statin, BB, acei initiated and up titrate outpt, new dosing of ranexa and imdur -cont oral diuresis outpt -home o2 eval -HD as per nephro further diagnoses and plan as noted by resident time spent on discharge 45 min
--- NOTE | 2018-07-28 07:47 | Physician Discharge Referral ---
<MetcalfBebeto S - Last Filed: 07/28/18 11:12> Home Health/Hosp Referral Info Transfer to: Home Health Provider in Charge Post Discharge: PCP - Diagnosis (1) Elevated troponin Priority: Secondary Status: Acute (2) Cellulitis Priority: Primary Status: Acute (3) Hypertension Priority: Secondary Status: Chronic (4) Diabetes Priority: Secondary Status: Chronic (5) ESRD (end stage renal disease) Priority: Secondary Status: Chronic (6) Venous stasis ulcer Priority: Secondary Status: Chronic (7) CAD (coronary artery disease) Priority: Secondary Status: Chronic (8) Acute respiratory failure with hypoxia Priority: Secondary Status: Resolved (9) Nausea & vomiting Priority: Secondary Status: Resolved (10) Restless leg syndrome Priority: Secondary Status: Chronic (11) Chest pain Priority: Secondary Status: Resolved (12) DVT prophylaxis Priority: Secondary Status: Acute - Respiratory Orders None Smoking Cessation: Smoking cessation has been advised. For more information, call the [place] Tobacco Quit Line at 6-828-XHGV-NOW. - Diet/Nutrition Diet/Nutrition Orders: Renal - Activity Activity Orders: Up ad olivia, Walker - Services Needed Following services are medically necessary services: Home Health Aide, Physical Therapy, Occupational Therapy - Transfer Medications Prescriptions: cephALEXin [Keflex] 500 mg PO QID 7 Days #28 capsule Furosemide [Lasix] 40 mg PO DAILY 30 Days #30 tablet Isosorbide MONOnitrate (24 HR) [Imdur] 60 mg PO DAILY 30 Days #60 tab.er.24h Lisinopril 2.5 mg PO DAILY 30 Days #30 tablet Ranolazine [Ranexa] 1,000 mg PO BID 30 Days #120 tab.er.12h Home Medications: Aspirin [Lo-Dose Aspirin EC] 81 mg PO DAILY 07/30/17 [History] Ergocalciferol (VITAMIN D2) [Vitamin D2] 2 cap PO WE 09/24/17 [History] Insulin ASPART [NovoLOG] 0 unit SQ TIDWM 09/24/17 [History] Clopidogrel [Plavix] 75 mg PO DAILY #30 tablet 10/29/17 [Rx] Insulin Glargine,Hum.rec.anlog [Basaglar Kwikpen U-100] 0 unit SQ HS 02/01/18 [History] Tramadol HCl [Ultram] 50 mg PO Q6H PRN 04/15/18 [History] rOPINIRole [Requip] 0.25 mg PO HS 06/18/18 [History] Atorvastatin [Lipitor] 40 mg PO HS 07/26/18 [History] Calcium Carbonate [Calcium] 600 mg PO DAILY 07/26/18 [History] Metoprolol Succinate [Toprol Xl] 25 mg PO DAILY 07/26/18 [History] Nitroglycerin [Nitrostat] 0.4 mg SL Q5MIN PRN 07/26/18 [History] Ondansetron ODT [Zofran ODT] 4 mg SL Q6HR PRN 07/26/18 [History] Pantoprazole Sodium [Protonix] 40 mg PO BID 07/26/18 [History] Furosemide [Lasix] 40 mg PO DAILY 30 Days #30 tablet 07/28/18 [Rx] Isosorbide MONOnitrate (24 HR) [Imdur] 60 mg PO DAILY 30 Days #60 tab.er.24h 07/28/18 [Rx] Lisinopril 2.5 mg PO DAILY 30 Days #30 tablet 07/28/18 [Rx] Ranolazine [Ranexa] 1,000 mg PO BID 30 Days #120 tab.er.12h 07/28/18 [Rx] cephALEXin [Keflex] 500 mg PO QID 7 Days #28 capsule 07/28/18 [Rx] Allergies/Adverse Reactions: Allergy/AdvReac Type Severity Reaction Status Date / Time No Known Allergies Allergy Verified 07/26/18 09:54 Certification: Further, I certify that my clinical findings support that this patient is homebound (i.e. absences from home require considerable and taxing effort and are for medical reasons or baptism services or infrequently or short duration when for other reasons) because: Homebound Reason: Leaving home requires considerable and taxing effort due to condition Attestation: My signature below is to certify that this patient is under my care and that I, or nurse practitioner, or a physician's public aid eligibility assistant working with me, has a [id number] encounter with this patient. <Lluvia Appiah - Last Filed: 07/28/18 13:05> - Respiratory Orders None Smoking Cessation: Smoking cessation has been advised. For more information, call the [employer] Tobacco Quit Line at 3-204-URWY-NOW. - Diet/Nutrition Diet/Nutrition Orders: Cardiac, No Concentrated Sweets Certification: Further, I certify that my clinical findings support that this patient is homebound (i.e. absences from home require considerable and taxing effort and are for medical reasons or baptism services or infrequently or short duration when for other reasons) because: Attestation: My signature below is to certify that this patient is under my care and that I, or nurse practitioner, or a physician's public aid eligibility assistant working with me, has a [id number] encounter with this patient.
[2018-07-28] MEDS ORDERED: Isosorbide MONOnitrate (24 HR) 30 MG TAB.ER.24H PO SCH (09:00)
[2018-07-28] MEDS ORDERED: 0.9 % Sodium Chloride 1,000 ML ONE (09:14)
[2018-07-28 12:21] VITALS: BP 151/79
[2018-07-28] MEDS: Sodium Thiosulfate 25 GM in EMPTY BAG 1 EACH IVPB SCH (12:23)
== END 2018-07-28 13:36 | disposition home health service (06) ==
LOC: EMEROOARM 09:52 → 2ANU 09:52 → SUATTDRO 14:37 → 2ANU 15:58
PROVIDERS: ADMIT Hospitalist; ATTEND Internal Medicine

== ENCOUNTER 2018-09-09 08:50 | Observation (INO) ==
--- NOTE | 2018-09-09 09:00 | Emergency Department Note ---
Disposition Clinical Impression: Chest pain, Accelerated hypertension, Noncompliance with renal dialysis, Pleural effusion, Shortness of breath, Elevated troponin, End stage renal disease Disposition: Admitted As Inpatient Condition: Fair Time of Disposition: 14:41 General Adult HPI - General Stated complaint: DEA Time Seen by Provider: 09/09/18 08:58 - History of Present Illness HPI Narrative: 53-year-old male past medical history of DVT, CHF, diabetes, end-stage renal disease on dialysis, presenting for a 2 day history of gradually progressive and worsening chest pain associated with nausea, vomiting and shortness of breath. Patient states last evening that he was nauseous and "vomiting all night." Patient states morning he has developed gradual progressive and worsening midsternal chest pain radiating into his back, non-out of 10 on the pain scale associated with severe dyspnea. Patient states that this feels like his previous CHF exacerbations. Patient admits to lightheadedness and dizziness, as well as numbness and paresthesias to his extremities. Onset (ago): hour(s) Location: chest Radiation: back Pain Severity: severe, similar to prior episodes Pain Scale: 9 Quality: sharp Consistency: Worsening Improves with: nothing Worsens with: nothing Associated symptoms: Reports: chest pain, cough, fever/chills, headaches, nausea/vomiting, shortness of breath, weakness Treatments Prior to Arrival: none - Related Data Home Medications Medication Instructions Recorded Confirmed Aspirin [Lo-Dose Aspirin EC] 81 mg PO DAILY 07/30/17 08/16/18 Ergocalciferol (VITAMIN D2) 2 cap PO WE 09/24/17 08/16/18 [Vitamin D2] Insulin ASPART [NovoLOG] 0 unit SQ TIDWM 09/24/17 08/16/18 Insulin Glargine,Hum.rec.anlog 30 unit SQ HS 02/01/18 08/17/18 [Basaglar Kwikpen U-100] Tramadol HCl [Ultram] 50 mg PO Q6H PRN 04/15/18 08/16/18 rOPINIRole [Requip] 0.25 mg PO HS 06/18/18 08/16/18 Atorvastatin [Lipitor] 40 mg PO HS 07/26/18 08/16/18 Calcium Carbonate [Calcium] 600 mg PO DAILY 07/26/18 08/16/18 Metoprolol Succinate [Toprol Xl] 25 mg PO DAILY 07/26/18 08/16/18 Nitroglycerin [Nitrostat] 0.4 mg SL Q5MIN PRN 07/26/18 08/16/18 Ondansetron ODT [Zofran ODT] 4 mg SL Q6HR PRN 07/26/18 08/16/18 Pantoprazole Sodium [Protonix] 40 mg PO BID 07/26/18 08/16/18 Sucralfate [Carafate] 1 gm PO TIDAC 08/04/18 08/16/18 Previous Rx's Medication Instructions Recorded Clopidogrel [Plavix] 75 mg PO DAILY #30 tablet 10/29/17 Isosorbide MONOnitrate (24 HR) 90 mg PO DAILY #90 tab.er.24h 08/19/18 [Imdur] Allergies Allergy/AdvReac Type Severity Reaction Status Date / Time No Known Allergies Allergy Verified 07/26/18 09:54 Review of Systems: *See History of Present Illness for more detail Constitutional: Admits fever, chills Cardiovascular: Admits chest pain Respiratory: Admits dyspnea, cough, denies: hemoptysis Gastrointestinal: Admits: Nausea, vomiting Denies: abdominal pain, diarrhea, constipation, hematemesis, melena, hematochezia Genitourinary: Denies: hematuria Musculoskeletal: Denies: back pain, neck pain Neurological: Admits to weakness, lightheadedness, dizziness, numbness and paresthesias. Denies: headache, weakness, difficulty with ambulation. Endocrine: Admits fatigue All systems ED: reviewed and negative except as stated. Review of Systems: As Per HPI Past Medical History - Past Medical History Source: patient Medical history: Reports: atrial fibrillation, CHF, coronary artery disease, diabetes, dialysis, hypertension, renal disease, TIA, venous stasis Surgical history: Reports: cholecystectomy, vascular surgery, other Psychiatric history: Reports: no psych history - Social History Smoking Status: Never smoker Smokeless Tobacco Status: No Alcohol use: Reports: none Drug use: Reports: none Physical Exam Constitutional: Patient appears to be in moderate distress, he is otherwise [id number], engaged to conversation, speech is fluid, answers questions appropriately Neuro: GCS 15, no overt focal neurological deficits Head: Atraumatic, normocephalic Eyes: Pupils equal, round and reactive to light, no scleral icterus, no conjunctival injection Neck: Trachea midline without deviation. Anterior neck is supple without swelling. *Chest: Symmetric chest wall rise *Heart: Cardiac rhythm and rate are regular with S1 and S2 , no S3 or S4 appreciated, no murmurs, gallops, rubs, or clicks. *Lungs: Lungs are clear to auscultation bilaterally, there is accessory muscle use with prolonged expiratory phase. No wheezes, rhonchi or stridor appreciated. Abdomen: Abdomen is rotund, soft to palpation, normal bowel sounds. No abdominal bruit auscultated. Non-distended, non-rigid, no organomegaly, no ascites appreciated. No pulsatile mass, no tenderness or guarding to palpation in all four quadrants, no rebound Extremities: Bilateral lower extremity +1 edema, erythema over the shins, patient with history of DVT currently treated on Plavix. Psychiatric exam: Patient appears anxious due to respiratory status Integumentary: warm, dry, intact, normal color. No rash, cyanosis, diaphoresis, erythema, or pallor - General Limitations: no limitations General appearance: alert, in distress Course Course Narrative: My differential diagnosis includes but is not limited to: Acute coronary syndrome Aortic dissection Cardiac tamponade Pulmonary embolism Pneumonia CHF exacerbation Pleural effusion Tests: CBC, BMP, CTA of the chest, EKG/old EKG, troponin, BNP Treatments: Fentanyl, Zofran, metoprolol, nitroglycerin for the management of patient's symptoms. - Reevaluation(s) Reevaluation #1: Informed by nursing staff that the patient's IV is now nonfunctional Patient was able to be given Zofran prior to IV failure We will change pain and blood pressure medications 2 by mouth at this time 15 mg immediate release morphine and 12.5 mg by mouth metoprolol. We will reassess for need for further blood pressure management as soon as new IV is established. Reevaluation #2: Nurse reports patient had a brief unresponsive episode which did not react to sternal rub Attending physician was called to room states the patient was awake alert and oriented but was lethargic to his exam but rapidly progressed to full consciousness. Patient states he is feeling very dizzy said he had no chest trey n or shortness of breath. Likely syncopal episode. Vitals otherwise stable apart from hypertension POC glucose was 127. No evidence of seizure or other lateralizing focal neurological deficits. We will add CT scan of head and brain at this time. Vital Signs Temperature 98.2 F 09/09/18 09:07 Pulse Rate 89 09/09/18 09:07 Respiratory Rate 24 09/09/18 09:07 Blood Pressure 193/96 09/09/18 09:07 O2 Sat by Pulse Oximetry 100 09/09/18 09:07 Temperature 98.2 F 09/09/18 09:07 Pulse Rate 96 09/09/18 14:04 Respiratory Rate 14 09/09/18 14:04 Blood Pressure 205/101 09/09/18 14:04 O2 Sat by Pulse Oximetry 97 09/09/18 14:04 Oxygen Delivery Oxygen Delivery Nasal Cannula Medical Decision Making - MDM Narrative Medical decision making narrative: Chest x-ray and CTA show right pleural effusion worsened since last image Patient troponin mildly elevated at 0.05 Creatinine 8.89 consistent with end-stage renal disease on dialysis Nephrology consulted and is following Patient be admitted to hospitalist medicine service for further evaluation and management with likely thoracentesis for drainage of pulmonary effusion. Patient verbalizes understanding and agreement this plan. - Lab Data Lab results reviewed: Yes I reviewed the patient's lab results. Result diagrams: 09/10/18 01:06 09/10/18 01:06 Lab Results 09/09/18 09/09/18 09/09/18 Range/Units 09:23 09:23 09:23 WBC 6.8 (4.3-11.1) K/mcL RBC 3.68 L (4.19-5.50) M/mcL Hgb 11.0 L (12.9-16.9) g/dL Hct 32.5 L (37.5-50.1) % MCV 88.3 (83.0-100.0) fL MCH 29.9 (28.0-33.3) pg MCHC 33.8 (31.6-35.5) g/dL RDW 12.7 (11.5-14.5) % Plt Count 272 (140-400) K/mcL MPV 8.5 L (9.4-12.4) fL Immature Gran % 0.3 (0-4) % Seg Neutrophils % 70.1 % Lymphocytes % 19.2 % Monocytes % 7.9 % Eosinophils % 2.1 % Basophils % 0.4 % Neutrophils # 4.8 (1.6-8.9) K/mcL Lymphocytes # 1.3 (0.6-4.6) K/mcL Monocytes # 0.5 (0.0-1.3) K/mcL Eosinophils # 0.1 (0.0-0.6) K/mcL Basophils # 0.0 (0.0-0.2) K/mcL Sodium 138 (136-145) mEq/L Potassium 4.9 (3.5-5.1) mEq/L Chloride 103 (98-107) mEq/L Carbon Dioxide 19 L (23-29) mEq/L BUN 66 H (6-20) mg/dL Creatinine 8.89 H (0.70-1.30) mg/dL Est GFR ( Amer) 8 L (> 60) Est GFR (Non-Af Amer) 6 L (> 60) BUN/Creatinine Ratio 7 (6-26) Glucose 151 H (70-105) mg/dL Calculated Osmolality 308 H (280-300) Calcium 7.8 L (8.6-10.3) mg/dL Troponin I 0.05 H* (< 0.04) ng/mL B-Natriuretic Peptide 749 H (Less than 100) pg/mL - EKG Data EKG #1 EKG attestation: Yes I reviewed and interpreted this EKG. EKG results narrative: Patient's EKG shows sinus rhythm with a ventricular rate of 89 bpm, MO interval of 119 ms, QRS duration of 98 ms, QT/QTc interval 387/434 ms respectively. There are ST segment elevations noted in the inferior leads which appear consistent with prior EKG, without reciprocal ST segment depressions, there are T-wave inversions noted in lead aVL which appear to be isolated to that lead and are again consistent with prior EKG, there are no pathologic Q waves, or other signs of acute ischemic change. This EKG performed today is generally co nsistent with prior EKG performed on 08/17/2018. Attestation Statement - Attestation Attestation: I have seen this patient with the resident physician, I have personally evaluated this patient. I had reviewed the chart and document dictation by the resident physician and aM in agreement with the information documented by the resident physician. Please see documentation by the resident physician for complete chart including past medical history, family medical history, review of systems, current history and physical and laboratory and imaging studies. I was present for all procedures, provided direct supervision for all procedures, was present for the entirety of all procedures and provided direct guidance during the procedures. Please see documentation by the resident physician for any procedures performed. I have reviewed all interpretations of EKGs, and reviewed all EKGs performed on patient's as well. I have also reviewed reports of imaging as provided by radiology.
[2018-09-09] MEDS ORDERED: Ondansetron 4 MG/2 ML VIAL IVP STA (09:12)
[2018-09-09] MEDS ORDERED: Nitroglycerin 0.4 MG TAB.SUBL SL SCH (09:30)
[2018-09-09] MEDS ORDERED: Nitroglycerin 1 INCH/GM PACKET TP ONE (09:31)
[2018-09-09 09:43] LABS: Basophils % 0.4 %; Eosinophils # 0.1 K/mcL (0.0-0.6); Eosinophils % 2.1 %; Hematocrit 32.5 % (37.5-50.1); Immature Granulocytes % 0.3 % (0-4); Lymphocytes # 1.3 K/mcL (0.6-4.6); Lymphocytes % 19.2 %; Mean Corpuscular HGB Conc 33.8 g/dL (31.6-35.5); Mean Corpuscular Hemoglobin 29.9 pg (28.0-33.3); Mean Corpuscular Volume 88.3 fL (83.0-100.0); Mean Platelet Volume 8.5 fL (9.4-12.4); Monocytes # 0.5 K/mcL (0.0-1.3); Monocytes % 7.9 %; Neutrophils # 4.8 K/mcL (1.6-8.9); Platelet Count 272 K/mcL (140-400); Red Blood Count 3.68 M/mcL (4.19-5.50); Red Cell Distribution Width 12.7 % (11.5-14.5); Segmented Neutrophils % 70.1 %
--- NOTE | 2018-09-09 09:45 | Emergency Department Note ---
Disposition Clinical Impression: Chest pain, Accelerated hypertension, Noncompliance with renal dialysis, Pleural effusion, Shortness of breath Disposition: Admitted As Inpatient Condition: Serious Referrals: Miya Aden DO [Primary Care Provider] - Time of Disposition: 14:56 General Adult HPI - General Chief complaint: ED Shortness of Breath/Dyspnea Stated complaint: DEA Time Seen by Provider: 09/09/18 08:58 Limitations: no limitations - History of Present Illness Location: chest Pain Scale: 9 Quality: sharp Improves with: nothing Worsens with: nothing Associated symptoms: Reports: chest pain, cough, fever/chills, headaches, nausea/vomiting, shortness of breath, weakness Treatments Prior to Arrival: none - Related Data Home Medications Medication Instructions Recorded Confirmed Aspirin [Lo-Dose Aspirin EC] 81 mg PO DAILY 07/30/17 08/16/18 Ergocalciferol (VITAMIN D2) 2 cap PO WE 09/24/17 08/16/18 [Vitamin D2] Insulin ASPART [NovoLOG] 0 unit SQ TIDWM 09/24/17 08/16/18 Insulin Glargine,Hum.rec.anlog 30 unit SQ HS 02/01/18 08/17/18 [Basaglar Kwikpen U-100] Tramadol HCl [Ultram] 50 mg PO Q6H PRN 04/15/18 08/16/18 rOPINIRole [Requip] 0.25 mg PO HS 06/18/18 08/16/18 Atorvastatin [Lipitor] 40 mg PO HS 07/26/18 08/16/18 Calcium Carbonate [Calcium] 600 mg PO DAILY 07/26/18 08/16/18 Metoprolol Succinate [Toprol Xl] 25 mg PO DAILY 07/26/18 08/16/18 Nitroglycerin [Nitrostat] 0.4 mg SL Q5MIN PRN 07/26/18 08/16/18 Ondansetron ODT [Zofran ODT] 4 mg SL Q6HR PRN 07/26/18 08/16/18 Pantoprazole Sodium [Protonix] 40 mg PO BID 07/26/18 08/16/18 Sucralfate [Carafate] 1 gm PO TIDAC 08/04/18 08/16/18 Previous Rx's Medication Instructions Recorded Clopidogrel [Plavix] 75 mg PO DAILY #30 tablet 10/29/17 Isosorbide MONOnitrate (24 HR) 90 mg PO DAILY #90 tab.er.24h 08/19/18 [Imdur] Allergies Allergy/AdvReac Type Severity Reaction Status Date / Time No Known Allergies Allergy Verified 07/26/18 09:54 Past Medical History - Past Medical History Medical history: Reports: atrial fibrillation, CHF, coronary artery disease, diabetes, dialysis, hypertension, renal disease, TIA, venous stasis Surgical history: Reports: cholecystectomy, vascular surgery, other Psychiatric history: Reports: no psych history - Social History Smoking Status: Never smoker Smokeless Tobacco Status: No Alcohol use: Reports: none Drug use: Reports: none Physical Exam - General Limitations: no limitations General appearance: alert, in distress Course Vital Signs Temperature 98.2 F 09/09/18 09:07 Pulse Rate 89 09/09/18 09:07 Respiratory Rate 24 09/09/18 09:07 Blood Pressure 193/96 09/09/18 09:07 O2 Sat by Pulse Oximetry 100 09/09/18 09:07 Temperature 98.2 F 09/09/18 09:07 Pulse Rate 96 09/09/18 14:04 Respiratory Rate 14 09/09/18 14:04 Blood Pressure 205/101 09/09/18 14:04 O2 Sat by Pulse Oximetry 97 09/09/18 14:04 Oxygen Delivery Oxygen Delivery Nasal Cannula Medical Decision Making - [facility] Narrative Medical decision making narrative: . - Lab Data Result diagrams: 09/09/18 09:23 09/09/18 09:23 Lab Results 09/09/18 09/09/18 09/09/18 Range/Units 09:23 09:23 09:23 WBC 6.8 (4.3-11.1) K/mcL RBC 3.68 L (4.19-5.50) M/mcL Hgb 11.0 L (12.9-16.9) g/dL Hct 32.5 L (37.5-50.1) % MCV 88.3 (83.0-100.0) fL MCH 29.9 (28.0-33.3) pg MCHC 33.8 (31.6-35.5) g/dL RDW 12.7 (11.5-14.5) % Plt Count 272 (140-400) K/mcL MPV 8.5 L (9.4-12.4) fL Immature Gran % 0.3 (0-4) % Seg Neutrophils % 70.1 % Lymphocytes % 19.2 % Monocytes % 7.9 % Eosinophils % 2.1 % Basophils % 0.4 % Neutrophils # 4.8 (1.6-8.9) K/mcL Lymphocytes # 1.3 (0.6-4.6) K/mcL Monocytes # 0.5 (0.0-1.3) K/mcL Eosinophils # 0.1 (0.0-0.6) K/mcL Basophils # 0.0 (0.0-0.2) K/mcL Sodium 138 (136-145) mEq/L Potassium 4.9 (3.5-5.1) mEq/L Chloride 103 (98-107) mEq/L Carbon Dioxide 19 L (23-29) mEq/L BUN 66 H (6-20) mg/dL Creatinine 8.89 H (0.70-1.30) mg/dL Est GFR ( Amer) 8 L (> 60) Est GFR (Non-Af Amer) 6 L (> 60) BUN/Creatinine Ratio 7 (6-26) Glucose 151 H (70-105) mg/dL Calculated Osmolality 308 H (280-300) Calcium 7.8 L (8.6-10.3) mg/dL Troponin I 0.05 H* (< 0.04) ng/mL B-Natriuretic Peptide 749 H (Less than 100) pg/mL Attestation Statement - Attestation Attestation: I have seen this patient with the resident physician, I have personally evaluated this patient. I had reviewed the chart and document dictation by the resident physician and aM in agreement with the information documented by the resident physician. Please see documentation by the resident physician for complete chart including past medical history, family medical history, review of systems, current history and physical and laboratory and imaging studies. I was present for all procedures, provided direct supervision for all procedures, was present for the entirety of all procedures and provided direct guidance during the procedures. Please see documentation by the resident physician for any procedures performed. I have reviewed all interpretations of EKGs, and reviewed all EKGs performed on patient's as well. I have also reviewed reports of imaging as provided by radiology. Patient presents emergency Department with chief complaint of chest pain shortness of breath. The patient states that the chest pain is very intense pressure in significant discomfort going into his back. Patient states he is very short of breath. The patient states that he has long-standing history of hypertension CHF dialysis and coronary artery disease. He states that this pain in some ways reminds him of his coronary artery disease but in some ways di fferent. The patient states he has had a lot of recent travel, back and forth the [place], to help take care of a family member and in doing so he has also cut himself down to dialysis on Thursday and Fridays instead of Thursday and Fridays because he could not get dialysis arranged through the Center in [place]. The patient states that he does have a history of blood clots. He denies specific pleuritic chest pain. Denies any acute lower extremity edema but has bilateral lower extremity edema. On exam the patient does appear conversationally dyspneic however is not hypoxic, he was noted to be significant antihypertensive with multiple blood pressures in the 190s over 90s. He has not had dialysis since Thursday. Lungs revealed diminished breath sounds at the right base compared to the remainder of the lung examination was some dullness to percussion consistent with a potential pleural effusion, otherwise lungs are clear. Heart is regular 2/6 systolic murmur no rubs no gallops no obvious JVD. Abdomen soft and nontender. There is 1+ bilateral lower edema with some chronic venous stasis change, and a small abrasion and skin tear on the surface of the right tibial region, but without evidence of superinfection. Pulses are normal. EKG is a normal sinus rhythm, there is a appearance of early repolarization ST elevation within leads 3 and aVF, however when compared to prior EKG there is no change in this, and there is no change in the EKG from prior EKG as interpreted by myself, no new ST elevation T-wave inversions, there are T-wave inversions in leads 1 and aVL but again stable from previous. No evidence of hyperkalemia, normal intervals, with a QTC of 434. Basic laboratory studies were ordered. Secondary to patient with significant risk factors for vascular disease, as well as for pulmonary embolism with a history of DVTs in the past and not on anticoagulation, a CT of the chest was ordered to rule out pulmonary embolism and evaluate for any risk of or abnormality of the aorta. He was given 1 dose of IV metoprolol, and was given nitroglycerin for hypertension, with concerns of potential aortic dissection, with pretreatment with beta jesse prior to nitrates. Patient was also provided with fentanyl for pain. I reviewed his chart he had a recent cardiac catheterization about 2-1/2-3 months ago which showed severe multivessel disease, however nothing was amenable to stenting at that time. He does have stents in place. CBC basic metabolic profile cardiac enzymes were also ordered During the patient's stay in the emergency department, he had an episode where he developed a unresponsive state apparently for the nurse, she states that she went in to check on him after he returned from CT scan and he was responsive even to sternal rub, I was called to the room, but the time I arrived in the room within seconds of being notified, he is now awake he seems a little bit lethargic no seizure-like activity, I stayed with him for approximately 3 minutes and he returned completely to normal, he states that he just felt dizzy and lightheaded he denies any headache denies any focal neurologic symptoms denies any chest pain or shortness of breath or worsened. Fingerstick was obtained which was normal. No evidence of hypotension, remains with hypertension. Patient did have a new IV established, was sent back for CT PE protocol which shows increased right lower lobe pleural effusion, with near-complete compressi on of the right lower lobe, with some effusion into the upper lobe region as well, trace left lower lobe pleural effusion. No pulmonary embolism no aortic dissection. Head CT was ordered secondary to that Ultram mental status episode which showed no acute findings. Continuing to monitor his hypertension, seems to remain hypertensive despite nitro paste and IV metoprolol which was also given after his by mouth metoprolol. We will consider initiating a blood pressure medication drip, however it feels patient would most benefit from dialysis, we will contact nephrology to discuss consideration of initiating blood pressure medication drip for significant hypertension versus patient to go to dialysis before this, as to avoid hypotension during dialysis. Patient will be admitted to the hospital for further evaluation and management of hypertension shortness of breath chest pain pleural effusion syncopal event. Total critical care time as provided by myself excluding any procedures perf ormed was 50 minutes.
[2018-09-09] MEDS: *HR* FentaNYL (PF) 100 MCG/2 ML VIAL IVP STA ×2 (09:55→10:48)
[2018-09-09] MEDS: *HR* Metoprolol 5 MG/5 ML VIAL IVP ONE ×3 (09:55→11:04)
[2018-09-09 10:07] LABS: Troponin I 0.05 ng/mL (< 0.04)
[2018-09-09 10:08] LABS: Calcium 7.8 mg/dL (8.6-10.3); Potassium 4.9 mEq/L (3.5-5.1)
[2018-09-09] MEDS ORDERED: *HR* Morphine Immed Rel 15 MG TABLET PO STA (10:30)
[2018-09-09] MEDS: Isovue-370 500 ML BOTTLE IVP ONE ×2 (11:26→14:08)
[2018-09-09] MEDS ORDERED: 0.9 % Sodium Chloride 250 ML IVC PRN (15:53)
[2018-09-09] MEDS ORDERED: 0.9 % Sodium Chloride 1,000 ML PRIME SCH (16:00)
[2018-09-09] MEDS ORDERED: *HR* OxyCODONE Immed Rel 5 MG TABLET PO PRN (16:23)
[2018-09-09] MEDS ORDERED: Naloxone 0.4 MG/ML INJ IVP PRN (16:23)
[2018-09-09] MEDS ORDERED: Ondansetron 4 MG/2 ML VIAL IVP PRN (16:23)
[2018-09-09] MEDS ORDERED: Acetaminophen 325 MG TABLET PO PRN (16:23)
[2018-09-09] MEDS ORDERED: *HR* HYDROcodone/Acet 5/325 mg TABLET PO PRN (16:23)
[2018-09-09] MEDS ORDERED: *HR* Dextrose 50 % in Water (Syg) 50 ML SYRINGE IVP PRN (16:30)
[2018-09-09] MEDS ORDERED: D5% in Water 1,000 ML IVC PRN (16:30)
[2018-09-09] MEDS ORDERED: Dextrose Gel 15 GM/37.5 ML TUBE PO PRN ×2 (16:30)
--- NOTE | 2018-09-09 16:36 | Internal Med History&Physical ---
Date of Encounter: 09/09/18 Time of Encounter: 16:32 Internal Medicine - H&P: HPI Chief complaint: Back pain Admitted From: Emergency Dept Plans for Post Hospital Care: Home History of present illness: Mr. Hernandez is a 53 year old male with history of heart failure, type 2 diabetes, end-stage renal disease presents with back pain. He reports sharp back pain that radiates forward to his chest and his left arm. He states he has never had anything like this before. He states this came on suddenly. He states this happened this morning. He states since arriving to the emergency department his pain is better. He states the pain medication that they gave him has helped. He had shortness of breath associated with this however the shortness of breath has also improved. He states that he has been traveling back and forth to [place] to help his brother and has had to miss dialysis sessions. He states on his own he has decreased his dialysis to twice a week. He states his last dialysis was Thursday. He denies any fever, chills. He denies dysuria. He states he is still making urine. Discussed CODE STATUS with the patient and he wishes to be DNR CCA. He is okay with intubation if necessary. Past Med Surg Social Fam HX - Past Medical History Medical history: atrial fibrillation, CHF, coronary artery disease, diabetes, dialysis, hypertension, renal disease, TIA, venous stasis Additional medical history: Gastric ulcers. Type II Diabetic Psychiatric history: no psych history - Past Surgical History Surgical History: cholecystectomy, vascular surgery, other Additional surgical history: 2 cardiac stent, esophageal bypass, prostate surgery - Social History Smoking Status: Never smoker Smokeless Tobacco Status: No Alcohol use: none Drug use: none - Family History Mother Adopted: No Living Status: Hx Family Cardiac Disorders: Yes (mother stroke) Hx Family Respiratory Disorders: Yes (Dad asthma copd) Hx Family Cancer: Yes (prostate, pancreatic) Hx Family GI Disorders: No Hx Family Endocrine Disorder: Yes (DM) Hx Family Neuromuscular Disorders: No Hx Family Neurologic Disorders: No Hx Family HEENT Disorders: No Hx Family Autoimmune Disorders: No Father Adopted: No Living Status: Hx Family Cardiac Disorders: Yes Hx Family Respiratory Disorders: Yes Hx Family Cancer: No Hx Family GI Disorders: No Hx Family Endocrine Disorder: Yes Hx Family Neuromuscular Disorders: No Hx Family Neurologic Disorders: No Hx Family HEENT Disorders: No Hx Family Autoimmune Disorders: No - Additional Family History Additional family history: Patient reports significant family history with his mother and father's side of diabetes and heart disease. Internal Medicine - H&P: Meds Aspirin [Lo-Dose Aspirin EC] 81 mg PO DAILY 07/30/17 [History] Ergocalciferol (VITAMIN D2) [Vitamin D2] 2 cap PO WE 09/24/17 [History] Insulin ASPART [NovoLOG] 0 unit SQ TIDWM 09/24/17 [History] Clopidogrel [Plavix] 75 mg PO DAILY #30 tablet 10/29/17 [Rx] Insulin Glargine,Hum.rec.anlog [Basaglar Kwikpen U-100] 30 unit SQ HS 02/01/18 [History] Tramadol HCl [Ultram] 50 mg PO Q6H PRN 04/15/18 [History] rOPINIRole [Requip] 0.25 mg PO HS 06/18/18 [History] Atorvastatin [Lipitor] 40 mg PO HS 07/26/18 [History] Calcium Carbonate [Calcium] 600 mg PO DAILY 07/26/18 [History] Metoprolol Succinate [Toprol Xl] 25 mg PO DAILY 07/26/18 [History] Nitroglycerin [Nitrostat] 0.4 mg SL Q5MIN PRN 07/26/18 [History] Ondansetron ODT [Zofran ODT] 4 mg SL Q6HR PRN 07/26/18 [History] Pantoprazole Sodium [Protonix] 40 mg PO BID 07/26/18 [History] Sucralfate [Carafate] 1 gm PO TIDAC 08/04/18 [History] Isosorbide MONOnitrate (24 HR) [Imdur] 90 mg PO DAILY #90 tab.er.24h 08/19/18 [Rx] Allergy/AdvReac Type Severity Reaction Status Date / Time No Known Allergies Allergy Verified 07/26/18 09:54 All Systems PM: A 10-system review of systems was performed and is negative for pertinent findings except as documented above in the HPI. Review of systems: 10 point review of systems was obtained and negative other than stated below: - Constitutional Constitutional: no chills, no fever(s) - Cardiovascular Cardiovascular ROS IM: chest pain, dyspnea, edema - Respiratory Respiratory: dyspnea, pain on inspiration, no cough - Musculoskeletal Musculoskeletal ROS IM: back pain - Constitutional Vitals: Temp Pulse Resp BP Pulse Ox 98.2 F 93 17 145/116 100 09/09/18 09:07 09/09/18 16:00 09/09/18 16:00 09/09/18 16:00 09/09/18 16:00 General appearance: Present: A&O X 3, pleasant, no acute distress Exam: Patient was resting comfortably when I entered the room. - Head Head exam: Present: atraumatic, normal inspection, normocephalic - Eye Eye exam: Present: EOMI, PERRL - ENT ENT exam: Present: mucous membranes moist, normal oropharynx - Neck Neck exam general surgery: Present: full ROM. Absent: tenderness - Respiratory Respiratory exam: Present: decreased breath sounds (bilateral, R>L). Absent: rales, rhonchi, wheezes - Cardiovascular Cardiovascular exam: Present: RRR. Absent: gallop, rubs, systolic murmur - GI/Abdominal GI/Abdominal exam: Present: normal bowel sounds, soft. Absent: distended, tenderness - Extremities Exam Extremities exam: Present: pedal edema (1+), warm. Absent: tenderness - Neurological Exam Neurological exam: Present: alert, CN II-XII intact, oriented X3, no focal deficits - Psychiatric Psychiatric exam: Present: normal affect, normal mood - Skin Skin exam: Present: dry, intact, warm Internal Med - H&P Results - Labs CBC & Chem 7: 09/09/18 09:23 09/09/18 09:23 Labs: Short CBC 09/09/18 Range/Units 09:23 WBC 6.8 (4.3-11.1) K/mcL Hgb 11.0 L (12.9-16.9) g/dL Hct 32.5 L (37.5-50.1) % Plt Count 272 (140-400) K/mcL Neutrophils # 4.8 (1.6-8.9) K/mcL BMP 09/09/18 09:23 Sodium 138 Potassium 4.9 Chloride 103 Carbon Dioxide 19 L BUN 66 H Creatinine 8.89 H Glucose 151 H Calcium 7.8 L Cardiac Enzymes 09/09/18 09/09/18 Range/Units 09:23 14:45 Troponin I 0.05 H* 0.05 H* (< 0.04) ng/mL - Impressions ITS Impressions Chest X-Ray 09/09/18 08:59 IMPRESSION: Moderate right pleural effusion, increased in size from the previous exam. D/ / Luke Colmenares MD / Luke Colmenares MD Interpreting Provider: Luke Colmenares MD Chest CTA 09/09/18 09:17 IMPRESSION: 1. No evidence of pulmonary embolus. 2. Large right pleural effusion with near complete compressive atelectasis of the right lower lobe. The right pleural effusion has increased in size compared to the exam of July 26, 2018. 3. Trace left pleural effusion, decreased in size compared to the exam of July 26, 2018. 4. Coronary artery disease. D/ / 09/09/2018 14:31:45 Jorge Guerrero MD / [facility] Interpreting Provider: Jorge Guerrero MD Head CT 09/09/18 11:54 IMPRESSION: No acute intracranial abnormality is identified. D/ / Jean-Paul Mayes MD / Jean-Paul Mayes MD Interpreting Provider: Jean-Paul Mayes MD - Assessment and Plan (1) HFrEF (heart failure with reduced ejection fraction) Current Visit: Yes Status: Chronic Assessment and plan: Patient presents with shortness of breath with large pleural effusion on CT scan which I personally reviewed. Likely secondary to acute on chronic systolic heart failure in the setting of missed dialysis and fluid overload. Previous catheterization reviewed reveals severe 3 vessel coronary disease and an EF of 45%. Continue aspirin, statin, beta jesse. ACEi/ARB contraindicated due to end-stage renal disease. Fluid management with hemodialysis today. Qualifiers: Heart failure chronicity: acute on chronic Qualified Code(s): I50.23 - Acute on chronic systolic (congestive) heart failure (2) ESRD (end stage renal disease) Current Visit: No Status: Chronic Assessment and plan: Patient has known ESRD and is post dialysis 3 times weekly however he has cut back his dialysis to twice weekly as needed to travel back and forth to [place] to help his brother. He is noncompliant with his dialysis regimens. Last dialysis was Thursday. Labs reviewed, no critical hyperkalemia or acidosis. He does not appear to be fluid overloaded and he does have some naus ea which may be related to uremia. Nephrology has been consulted and plans for hemodialysis today. (3) CAD (coronary artery disease) Current Visit: No Status: Chronic Assessment and plan: Patient reports of back pain that radiates to chest that feels different than his previous coronary disease. Troponins 2 are 0.05 which is baseline for patient given his end-stage renal disease. EKG reviewed shows no ischemic changes. Doubt this is active coronary disease. We will closely monitor the patient's symptoms and if he has a change in his symptoms will recheck EKG and reevaluate. Patient had recent heart catheter that was reviewed in May 2018 is known to have severe three-vessel disease however at that time medical management was recommended by cardiology. Qualifiers: Coronary Disease-Associated Artery/Lesion type: [place] artery [place] vs. tr ansplanted heart: [place] heart Associated angina: without angina Qualified Code(s): I25.10 - Atherosclerotic heart disease of [place] coronary artery without angina pectoris (4) Pleural effusion Current Visit: Yes Status: Acute Assessment and plan: CT of the chest reviewed and shows bilateral pleural effusions with a much larger pleural effusion on the right. Likely due to fluid overload in the setting of acute on chronic systolic heart failure as well as ESRD with noncompliance with hemodialysis. May be contributing to patient's symptoms. For hemodialysis today, we will reevaluate the patient's symptoms tomorrow, will consider therapeutic thoracentesis tomorrow. (5) Diabetes Current Visit: No Status: Chronic Assessment and plan: Blood sugar acceptable on presentation at 151. We will restart basal insulin at 20 units nightly and moderate dose sliding scale. Continue monitor sugars and adjust regimen as necessary. Qualifiers: Diabetes mellitus type: type 2 Diabetes mellitus shelter insulin use: without shelter use Diabetes mellitus complication status: without complication Qualified Code(s): E11.9 - Type 2 diabetes mellitus without complications (6) Accelerated hypertension Current Visit: Yes Status: Acute Assessment and plan: Patient noted to have significant hypertension, likely due to fluid overload [place] and vascular congestion. Given his back pain ER did perform a CTA that did not reveal any evidence of dissection. Beta jesse restarted. Patient will benefit from hemodialysis as discussed above. (7) DVT prophylaxis Current Visit: No Status: Acute Assessment and plan: Heparin 5000 units subcutaneous twice a day - Time Spent With Patient Total time spent is greater than 50% in coordination of care (as documented) at patient's floor/unit and/or counseling patient:
[2018-09-09 16:55] LABS: Hepatitis B Surface Antigen Nonreactive (Nonreactive)
[2018-09-09 18:01] LABS: Hepatitis B Surface Antibody 6.88 mIU/mL
[2018-09-09] MEDS ORDERED: Insulin DETEMIR 100 UNIT/ML X5UNITS SQ SCH (21:00)
[2018-09-09] MEDS ORDERED: Insulin LISPRO 300 UNITS/3 ML VIAL SQ SCH (21:00)
[2018-09-09] MEDS: *HR* Heparin 5,000 UNIT/ML VIAL SQ SCH (22:07)
[2018-09-09] MEDS: Insulin LISPRO 300 UNITS/3 ML VIAL SQ SCH (22:09)
[2018-09-10 01:19] LABS: Basophils % 0.4 %; Eosinophils # 0.1 K/mcL (0.0-0.6); Eosinophils % 1.5 %; Hematocrit 35.6 % (37.5-50.1); Hemoglobin 11.9 g/dL (12.9-16.9); Immature Granulocytes % 0.4 % (0-4); Lymphocytes # 1.2 K/mcL (0.6-4.6); Lymphocytes % 16.5 %; Mean Corpuscular HGB Conc 33.4 g/dL (31.6-35.5); Mean Corpuscular Volume 89.7 fL (83.0-100.0); Mean Platelet Volume 8.3 fL (9.4-12.4); Monocytes # 0.6 K/mcL (0.0-1.3); Monocytes % 8.6 %; Neutrophils # 5.2 K/mcL (1.6-8.9); Platelet Count 225 K/mcL (140-400); Red Blood Count 3.97 M/mcL (4.19-5.50); Red Cell Distribution Width 12.9 % (11.5-14.5); Segmented Neutrophils % 72.6 %
[2018-09-10 01:37] LABS: Calcium 7.5 mg/dL (8.6-10.3); Magnesium 1.6 mg/dL (1.6-2.6); Potassium 5.2 mEq/L (3.5-5.1)
--- NOTE | 2018-09-10 04:30 | Nephrology Consult Note ---
Date of Encounter: 09/09/18 Time of Encounter: 16:00 Assessment and Plan (1) ESRD (end stage renal disease) Current Visit: No Status: Chronic UF planned today HD tomorrow Lytes stable Renal diet advised (2) Pleural effusion Current Visit: Yes Status: Acute (3) HFrEF (heart failure with reduced ejection fraction) Current Visit: Yes Status: Chronic Qualifiers: Heart failure chronicity: acute on chronic Qualified Code(s): I50.23 - Acute on chronic systolic (congestive) heart failure (4) Accelerated hypertension Current Visit: Yes Status: Acute (5) Noncompliance with renal dialysis Current Visit: Yes Status: Acute History of Present Illness - Reason for Consult Consult date: 09/09/18 end stage renal disease Requesting physician: Joo De Santiago - History of Present Illness 53 y o male with PMH of ESRD o HD, CAD with 3 vessel disease, HTN, DM and Afib admitted for the second time in a week for chest pain. Past Med Surg Social Fam HX - Past Medical History Medical history: atrial fibrillation, CHF, coronary artery disease, diabetes, dialysis, hypertension, renal disease, TIA, venous stasis Additional medical history: Gastric ulcers. Type II Diabetic Psychiatric history: no psych history - Past Surgical History Surgical History: cholecystectomy, vascular surgery, other Additional surgical history: 2 cardiac stent, esophageal bypass, prostate surgery - Social History Smoking Status: Never smoker Smokeless Tobacco Status: No Alcohol use: none Drug use: none - Family History Mother Adopted: No Living Status: Hx Family Cardiac Disorders: Yes (mother stroke) Hx Family Respiratory Disorders: Yes (Dad asthma copd) Hx Family Cancer: Yes (prostate, pancreatic) Hx Family GI Disorders: No Hx Family Endocrine Disorder: Yes (DM) Hx Family Neuromuscular Disorders: No Hx Family Neurologic Disorders: No Hx Family HEENT Disorders: No Hx Family Autoimmune Disorders: No Father Adopted: No Living Status: Hx Family Cardiac Disorders: Yes Hx Family Respiratory Disorders: Yes Hx Family Cancer: No Hx Family GI Disorders: No Hx Family Endocrine Disorder: Yes Hx Family Neuromuscular Disorders: No Hx Family Neurologic Disorders: No Hx Family HEENT Disorders: No Hx Family Autoimmune Disorders: No Medications and Allergies Aspirin [Lo-Dose Aspirin EC] 81 mg PO DAILY 07/30/17 [History] Ergocalciferol (VITAMIN D2) [Vitamin D2] 2 cap PO WE 09/24/17 [History] Insulin ASPART [NovoLOG] 0 unit SQ TIDWM 09/24/17 [History] Clopidogrel [Plavix] 75 mg PO DAILY #30 tablet 10/29/17 [Rx] Insulin Glargine,Hum.rec.anlog [Basaglar Kwikpen U-100] 30 unit SQ HS 02/01/18 [History] Tramadol HCl [Ultram] 50 mg PO Q6H PRN 04/15/18 [History] rOPINIRole [Requip] 0.25 mg PO HS 06/18/18 [History] Atorvastatin [Lipitor] 40 mg PO HS 07/26/18 [History] Calcium Carbonate [Calcium] 600 mg PO DAILY 07/26/18 [History] Metoprolol Succinate [Toprol Xl] 25 mg PO DAILY 07/26/18 [History] Nitroglycerin [Nitrostat] 0.4 mg SL Q5MIN PRN 07/26/18 [History] Ondansetron ODT [Zofran ODT] 4 mg SL Q6HR PRN 07/26/18 [History] Pantoprazole Sodium [Protonix] 40 mg PO BID 07/26/18 [History] Sucralfate [Carafate] 1 gm PO TIDAC 08/04/18 [History] Isosorbide MONOnitrate (24 HR) [Imdur] 90 mg PO DAILY #90 tab.er.24h 08/19/18 [Rx] Allergy/AdvReac Type Severity Reaction Status Date / Time No Known Allergies Allergy Verified 07/26/18 09:54 Exam - Vital Signs Vital signs: Initial Vital Signs Temp Pulse Resp BP Pulse Ox 98.2 F 89 24 193/96 100 09/09/18 09:07 09/09/18 09:07 09/09/18 09:07 09/09/18 09:07 09/09/18 09:07 Vital Signs - Last 8 Hours Temp Pulse Resp BP Pulse Ox 09/10/18 01:22 98.2 F 78 18 169/81 99 09/09/18 22:40 88 18 152/127 09/09/18 22:15 84 16 144/83 97 09/09/18 21:10 90 18 204/118 09/09/18 20:50 98 16 175/119 98 09/09/18 20:29 98.1 F 90 17 147/83 99 Intake and Output 09/09/18 09/09/18 09/10/18 15:59 23:59 07:59 Intake Total 800 / 800 200 / 200 Output Total 4545 / 4545 Balance -3745 / -3745 200 / 200 Intake: Oral 200 / 200 200 / 200 Intake, Rinseback and Flushes 600 / 600 Output: Total Dialysis (HD) Output 4545 / 4545 Other: Weight 99.836 kg 97.692 kg Blood Glucose* 209 Hemodialysis Net Fluid Removed 3945 (mL) Results - Lab Results 09/10/18 01:06 09/10/18 01:06 Most recent lab results 09/10/18 01:06 Calcium 7.5 L Magnesium 1.6 Consult Discharge Plan - Plan
[2018-09-10] MEDS: *HR* Heparin 5,000 UNIT/ML VIAL SQ SCH (05:40)
[2018-09-10] MEDS ORDERED: *HR* Heparin 10,000 UNIT/10 ML VIAL IV PRN (07:46)
[2018-09-10] MEDS ORDERED: 0.9 % Sodium Chloride 250 ML IVC PRN (07:46)
[2018-09-10] MEDS ORDERED: 0.9 % Sodium Chloride 1,000 ML PRIME SCH (08:00)
[2018-09-10] MEDS ORDERED: Metoprolol XL (24 HR) Succ 25 MG TAB.ER.24H PO SCH (09:00)
[2018-09-10] MEDS ORDERED: Aspirin Enteric Coated 81 MG Tablet PO SCH (09:00)
[2018-09-10] MEDS: Insulin LISPRO 300 UNITS/3 ML VIAL SQ SCH ×3 (09:36→16:20)
[2018-09-10] MEDS ORDERED: 0.9 % Sodium Chloride 1,000 ML ONE (10:52)
--- NOTE | 2018-09-10 11:43 | Electrocardiograph Report ---
[address] [place] [address] Test Date: 2018-09-09 Pat Name: Abelardo Hernandez Department: 104 Room: 2A43 Gender: M Casting Chipper: Jalen : 1965 Requested By: Joo Bales Order Number: [id number] [place] MD: Emeka Berg Measurements Intervals [place] Rate: 89 P: -67 SD: 119 QRS: 17 QRSD: 98 T: 101 QT: 387 QTc: 434 Interpretive Statements Ectopic atrial rhythm POSSIBLE INFERIOR MYOCARDIAL INFARCTION, OF INDETERMINATE AGE Electronically Signed On 09-10-2018 11:42:03 EDT by Emeka Berg
--- NOTE | 2018-09-10 13:17 | Procedure Note ---
Date of procedure: 09/10/18 Pre-op diagnosis: Pleural effusion Post-op diagnosis: same Procedure: Therapeutic thoracentesis: Written consent was obtained from the patient. The right side of the posterior chest wall was surveyed using ultrasound and a large pleural effusion was ident ified. The area was marked. The patient was cleaned and draped in usual sterile fashion. The skin and soft tissues were anesthetized using 10 mL of 1% lidocaine. A kareem in the skin was made and a thoracentesis catheter over needle was advanced through the soft tissues into the pleural space. Clear straw- colored fluid was returned. The catheter was advanced and the needle was withdrawn. The catheter was hooked up to a pump system and approximately 1300 mL of clear straw-colored fluid were removed from the pleural space. The catheter was then withdrawn intact. A Band-Aid was applied to the area. Patient tolerated the procedure well, there are no immediate complications. Post procedure chest x-ray is pending. Anesthesia: local (10cc 1% lidocaine) Surgeon: Pietro Fortune Was there an assistant women's rowing coach present: No Estimated blood loss (cc): 0 Specimen: 1300cc pleural fluid Pathology: none sent Condition: stable Disposition: floor
--- NOTE | 2018-09-10 13:22 | Discharge Summary ---
Orders not resulted at time of discharge: Pending orders 09/10/18 13:15 XR chest 1V portable [XR] Stat Date of Encounter: 09/10/18 Time of Encounter: 13:19 - Discharge Diagnosis (1) HFrEF (heart failure with reduced ejection fraction) Priority: Primary Status: Resolved Qualifiers: Heart failure chronicity: acute on chronic Qualified Code(s): I50.23 - Acute on chronic systolic (congestive) heart failure (2) ESRD (end stage renal disease) Priority: Primary Status: Chronic (3) CAD (coronary artery disease) Priority: Secondary Status: Chronic Qualifiers: Coronary Disease-Associated Artery/Lesion type: [place] artery [place] vs. 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 Hernandez is a 53 year old male with history of chronic systolic heart failure and end-stage renal disease presented with back pain and shortness of breath. He is found to be fluid overloaded. This was secondary to noncompliance with his dialysis. Patient received ultrafiltration yesterday and history of scheduled hemodialysis today. He was noted to have a large right-sided pleural effusion which was drained. Patient was symptomatically better. He will be discharged home to continue his regular scheduled dialysis. Patient will be discharged home in stable condition. Discharge discussed with: patient - Time Spent with Patient Total time spent providing and/or coordinating discharge services: - Discharge Medications Prescriptions: Continued Aspirin [Lo-Dose Aspirin EC] 81 mg PO DAILY Insulin ASPART [NovoLOG] 0 unit SQ TIDWM Ergocalciferol (VITAMIN D2) [Vitamin D2] 2 cap PO WE Clopidogrel [Plavix] 75 mg PO DAILY #30 tablet Insulin Glargine,Hum.rec.anlog [Basaglar Kwikpen U-100] 30 unit SQ HS Tramadol HCl [Ultram] 50 mg PO Q6H PRN PRN Reason: Pain rOPINIRole [Requip] 0.25 mg PO HS Atorvastatin [Lipitor] 40 mg PO HS Calcium Carbonate [Calcium] 600 mg PO DAILY Metoprolol Succinate [Toprol Xl] 25 mg PO DAILY Nitroglycerin [Nitrostat] 0.4 mg SL Q5MIN PRN PRN Reason: Chest Pain Ondansetron ODT [Zofran ODT] 4 mg SL Q6HR PRN PRN Reason: n/v Pantoprazole Sodium [Protonix] 40 mg PO BID Sucralfate [Carafate] 1 gm PO TIDAC Isosorbide MONOnitrate (24 HR) [Imdur] 90 mg PO DAILY #90 tab.er.24h Home Medications: Aspirin [Lo-Dose Aspirin EC] 81 mg PO DAILY 07/30/17 [History] Ergocalciferol (VITAMIN D2) [Vitamin D2] 2 cap PO WE 09/24/17 [History] Insulin ASPART [NovoLOG] 0 unit SQ TIDWM 09/24/17 [History] Clopidogrel [Plavix] 75 mg PO DAILY #30 tablet 10/29/17 [Rx] Insulin Glargine,Hum.rec.anlog [Basaglar Kwikpen U-100] 30 unit SQ HS 02/01/18 [History] Tramadol HCl [Ultram] 50 mg PO Q6H PRN 04/15/18 [History] rOPINIRole [Requip] 0.25 mg PO HS 06/18/18 [History] Atorvastatin [Lipitor] 40 mg PO HS 07/26/18 [History] Calcium Carbonate [Calcium] 600 mg PO DAILY 07/26/18 [History] Metoprolol Succinate [Toprol Xl] 25 mg PO DAILY 07/26/18 [History] Nitroglycerin [Nitrostat] 0.4 mg SL Q5MIN PRN 07/26/18 [History] Ondansetron ODT [Zofran ODT] 4 mg SL Q6HR PRN 07/26/18 [History] Pantoprazole Sodium [Protonix] 40 mg PO BID 07/26/18 [History] Sucralfate [Carafate] 1 gm PO TIDAC 08/04/18 [History] Isosorbide MONOnitrate (24 HR) [Imdur] 90 mg PO DAILY #90 tab.er.24h 08/19/18 [Rx] Allergies/Adverse Reactions: Allergy/AdvReac Type Severity Reaction Status Date / Time No Known Allergies Allergy Verified 07/26/18 09:54 Date of admission: 09/09/18 15:59 Primary care physician: Jacobo Booker Consults: 09/09/18 11:44 Consult to PICC team [Consult to Invasive Line Access Team] [CONS] Stat Reason for Consult: need for access for admit and CT PE Line Type: Midline 09/09/18 14:41 Consult to Nephrology [CONS] Stat Consulting Provider: Kidney Mary Jo/MARGO/MAGDALENA/JUSTICE Reason for Consult: Dialysis patient, shortness of breath, pleural effusion Time Notified: 14:42 Call Completed: Yes 09/09/18 16:00 Consult to Dialysis [CONS] ONCE 09/09/18 16:25 Consult to Welt Insole Channeler [CONS] Routine Reason for SW Consult: Freqently missing dialysis 09/09/18 19:01 Consult to Invasive Line Access Team [CONS] Routine Reason for Consult: limited vascular access with compromised left extremity and extravasation of contrast to right upper arm Line Type: EPIV 09/10/18 08:00 Consult to Dialysis [CONS] ONCE 09/10/18 11:30 Consult to Nurse Navigator [CONS] Routine Comment: hd Discharging clinician: Pietro Fortune - Constitutional Vitals: Temp Pulse Resp BP Pulse Ox 98.1 F 78 16 155/81 100 09/10/18 07:30 09/10/18 07:30 09/10/18 07:30 09/10/18 07:30 09/10/18 07:30 General appearance: Present: A&O X 3, pleasant, no acute distress Exam: . - Respiratory Respiratory exam: Present: decreased breath sounds. Absent: rales, rhonchi, wheezes - Cardiovascular Cardiovascular exam: Present: RRR. Absent: gallop, rubs, systolic murmur - Patient Status Disposition: Home, Self-Care Condition: Fair Functional capacity at discharge: independent ambulation Overall status at discharge: patient is progressing back to baseline - Discharge Instructions Follow Up With: Miya Aden DO [Primary Care Provider] - (1 week) Forms: ED Satisfaction Letter Additional Instructions: Please follow-up with her PCP within one week. Please resume your home medications. Please after dialysis performed 3 days a week as recommended per your switching clerk. Please return for any new or worsening symptoms. - Diet and Activity Activity: increase activity as tolerated Diet: diabetic diet, low fat, low cholesterol, low salt diet
[2018-09-10 15:42] VITALS: BP 155/80
--- NOTE | 2018-09-10 18:58 | Nephrology Progress Note ---
Date of Encounter: 09/10/18 Time of Encounter: 09:15 - Assessment and Plan (1) ESRD (end stage renal disease) Status: Chronic End-stage renal disease on hemodialysis every Thursday/Thursday/Thursday. He has been skipping some treatments of dialysis and only going approximately twice per week. This likely led to worsening fluid balance, fluid shifts, and development of worsening pleural effusions. I counseled the patient in detail to maintain 3 times a week dialysis. He said that he probably will not be able to do that. I reviewed the handoff notes from my colleague Dr. Stout, as well as the patient's labs, vital signs, progress notes, imaging and medication lists. The patient will need hemodialysis today, and his next treatment would be planned for Thursday. (2) Pleural effusion Status: Acute Discussed with the primary team, and agree with thoracentesis. To help prevent fluid shifts, the patient needs to have thrice weekly hemodialysis, low sodium diet, adequate protein in the diet, and fluid restriction. (3) HFrEF (heart failure with reduced ejection fraction) Status: Resolved Fluid removal with dialysis today Qualifiers: Heart failure chronicity: acute on chronic Qualified Code(s): I50.23 - Acute on chronic systolic (congestive) heart failure (4) Accelerated hypertension Status: Acute (5) Noncompliance with renal dialysis Status: Acute I counseled him to improve his compliance. Subjective Principal diagnosis: ESRD Interval history: The patient was seen and examined earlier today while on dialysis. This is at the late entry note. I discussed with the hospitalist in his care, and the patient said that he has missed some treatments of dialysis and then started to notice worsening shortness of breath. He did not affirm any cramping while on dialysis today Objective - Vital Signs Vital signs: Vital Signs Temp Pulse Resp BP Pulse Ox 09/10/18 12:10 98 F 18 155/80 09/10/18 11:50 127/81 09/10/18 11:35 141/84 09/10/18 11:20 158/86 09/10/18 11:05 141/84 09/10/18 10:50 125/77 09/10/18 10:35 115/75 09/10/18 10:20 113/69 09/10/18 10:05 101/64 09/10/18 09:50 96/64 09/10/18 09:35 126/81 09/10/18 09:20 138/82 09/10/18 09:05 126/79 09/10/18 08:50 146/84 09/10/18 08:35 168/90 09/10/18 08:20 97.8 F 16 207/108 09/10/18 07:30 98.1 F 78 16 155/81 100 09/10/18 04:38 97.7 F 72 19 131/72 99 09/10/18 01:22 98.2 F 78 18 169/81 99 09/09/18 22:40 88 18 152/127 09/09/18 22:15 84 16 144/83 97 09/09/18 21:10 90 18 204/118 09/09/18 20:50 98 16 175/119 98 09/09/18 20:29 98.1 F 90 17 147/83 99 09/09/18 18:57 98.3 F 18 160/94 Intake and Output 09/10/18 09/10/18 09/10/18 07:59 15:59 23:59 Intake Total 200 / 800 600 / 800 Output Total 200 / 3800 3600 / 3800 Balance 0 / -3000 -3000 / -3000 Intake: Oral 200 / 200 Intake, Rinseback and Flushes 600 / 600 Output: Total Dialysis (HD) Output 3600 / 3600 Catheter 200 / 200 Other: Weight 97.4 kg Blood Glucose* 127 158 Hemodialysis Net Fluid Removed 3000 (mL) Patient Weight 09/10/18 23:59 Weight 97.4 kg - General Appearance General appearance: Present: chronically ill, fatigue, frail EENT: Present: ATNC, mucous membranes moist Respiratory: Present: clear (but diminished in the bases) Cardiology: Present: edema Dialysis Vascular Access: Arteriovenous Fistula (left forearm) thrill: Yes bruit: Yes Integumentary: Present: rash, ecchymotic, hyperpigmentation, chronic venous stasis Neurologic: Present: no focal deficit, no asterixis, alert and oriented x3 Psychiatric: Present: depressed - Lab 09/10/18 01:06 09/10/18 01:06 Consult Discharge Plan - Plan Additional Instructions: Please follow-up with your PCP within one week. Please resume your home medications. Please after dialysis performed 3 days a week as recommended per your driller machine. Please return for any new or worsening symptoms. Referrals: Miya Aden, DO [Primary Care Provider] - (1 week- Office will call you with an appointment date and time. Thank you!)
== END 2018-09-10 16:30 | disposition home or self-care (01) ==
LOC: 2ANU 08:50 → EMEROOARM 08:50 → SUATTDRO 15:59 → 2ANU 16:27
PROVIDERS: ADMIT Internal Medicine; ATTEND Internal Medicine

== ENCOUNTER 2018-09-19 10:23 | Observation (INO) ==
--- NOTE | 2018-09-19 11:28 | Emergency Department Note ---
Disposition Clinical Impression: Chronic wound of extremity, Pleural effusion, CKD (chronic kidney disease) stage 4, GFR 15-29 ml/min CHF exacerbation Qualifiers: Heart failure type: systolic Qualified Code(s): I50.23 - Acute on chronic systolic (congestive) heart failure Chest pain Qualifiers: Chest pain type: unspecified Qualified Code(s): R07.9 - Chest pain, unspecified Disposition: Admitted As Inpatient Condition: Fair Referrals: Miya Aden DO [Primary Care Provider] - Forms: ED Satisfaction Letter Time of Disposition: 13:10 General Adult HPI - General Chief complaint: ED Chest Pain Stated complaint: maynor/cp Time Seen by Provider: 09/19/18 10:27 Source: patient Limitations: no limitations - History of Present Illness HPI Narrative: Abelardo Hernandez is a 53-year-old male with history of diabetes, CHF, CAD with stents, ESRD on dialysis (M/W/F) who presents to the ED with complaint of chest pressure and shortness of breath this morning when awakening. He states he feels like someone is sitting on his chest and the pressure is constant since he woke up this morning. He took one dose and nitroglycerin prior to arrival without improvement. Patient states that he has "fluid in his lungs" believes this is his CHF as states it feels similar to his recent admission. He also states that he has had non-bloody vomit for the past 4 days, approximately 4-6 episodes per day, has not been able to keep anything down. He attended dialysis on Thursday where he states he took off 3 L of fluid. He has been making urine at his normal rate. He states he has been taking his medications as directed and has been attending dialysis M/F. He also admits to tingling in his arms and legs like someone is sticking him with pins and needles. He also has a chronic wound on his left lower extremity which he states was healing but open back up Thursday evening. He denies fever, chills, palpitations, syncope, abdominal pain, localized weakness, numbness. Pt Subjective Complaint: chest pressure Pain Scale: 7 - Related Data Home Medications Medication Instructions Recorded Confirmed Aspirin [Lo-Dose Aspirin EC] 81 mg PO DAILY 07/30/17 08/16/18 Ergocalciferol (VITAMIN D2) 2 cap PO WE 09/24/17 08/16/18 [Vitamin D2] Insulin ASPART [NovoLOG] 0 unit SQ TIDWM 09/24/17 08/16/18 Insulin Glargine,Hum.rec.anlog 30 unit SQ HS 02/01/18 08/17/18 [Basaglar Kwikpen U-100] Tramadol HCl [Ultram] 50 mg PO Q6H PRN 04/15/18 08/16/18 rOPINIRole [Requip] 0.25 mg PO HS 06/18/18 08/16/18 Atorvastatin [Lipitor] 40 mg PO HS 07/26/18 08/16/18 Calcium Carbonate [Calcium] 600 mg PO DAILY 07/26/18 08/16/18 Metoprolol Succinate [Toprol Xl] 25 mg PO DAILY 07/26/18 08/16/18 Nitroglycerin [Nitrostat] 0.4 mg SL Q5MIN PRN 07/26/18 08/16/18 Ondansetron ODT [Zofran ODT] 4 mg SL Q6HR PRN 07/26/18 08/16/18 Pantoprazole Sodium [Protonix] 40 mg PO BID 07/26/18 08/16/18 Sucralfate [Carafate] 1 gm PO TIDAC 08/04/18 08/16/18 Previous Rx's Medication Instructions Recorded Clopidogrel [Plavix] 75 mg PO DAILY #30 tablet 10/29/17 Isosorbide MONOnitrate (24 HR) 90 mg PO DAILY #90 tab.er.24h 08/19/18 [Imdur] Allergies Allergy/AdvReac Type Severity Reaction Status Date / Time No Known Allergies Allergy Verified 07/26/18 09:54 All systems ED: reviewed and negative except as stated. Past Medical History - Past Medical History Medical history: Reports: atrial fibrillation, CHF, coronary artery disease, diabetes, dialysis, hypertension, renal disease, TIA, venous stasis Surgical history: Reports: cholecystectomy, vascular surgery, other Psychiatric history: Reports: no psych history - Social History Smoking Status: Never smoker Smokeless Tobacco Status: No Alcohol use: Reports: none Drug use: Reports: none Physical Exam - General Limitations: no limitations General appearance: alert, in no apparent distress (lying in bed comfortably) - Head Head exam: atraumatic, normocephalic - Eye Eye exam: Present: normal appearance, EOMI - ENT ENT exam: mucous membranes moist - Neck Neck exam: Present: normal inspection, full ROM, trachea midline. Absent: tenderness - Chest Chest inspection: Present: normal inspection, symmetric chest wall rise. Absent: tenderness, rash - Respiratory Respiratory exam: Present: other (decreased breath sounds noted in the right lower base, no wheezing or respiratory distress) - Cardiovascular Cardiovascular exam: Present: regular rate, normal rhythm, +S1, +S2 - Abdominal Exam Abdominal exam: Present: soft, Non-Tender, distention (patient states he is slighly distended from his baseline), normal bowel sounds. Absent: guarding, rebound, rigidity - Extremities Exam Extremities exam: Present: other (No pedal edema. Abrasions noted on the right lower extremity, appeared to be healing appropriately. Open stage 2, 2x2cm circular wound noted on the left lower extremity with mild surrounding erythema, no active bleeding or drainage.) - Expanded Neurological Exam Patient oriented to: Present: person, place, time Speech: Present: fluid speech Cranial nerves: EOM function (II, III, IV, ): Normal, facial sensation (V): Normal, facial palsy (VII): Normal, gag reflex (IX): Normal, tongue deviation (XII): Normal Cerebellar function: finger to nose: Normal Motor strength - LUE: 5/5 Motor strength - RUE: 5/5 Motor strength - LLE: 4/5 Motor strength - RLE: 4/5 Upper motor neuron exam: pronator drift: Absent bilaterally Sensory exam upper extremity: light touch: Normal Sensory exam lower extremity: light touch: Normal - Psychiatric Psychiatric exam: Present: normal affect, normal mood - Skin Skin exam: Present: warm, dry. Absent: rash, diaphoresis Course Vital Signs Temperature 98.0 F 09/19/18 10:35 Pulse Rate 89 09/19/18 10:35 Respiratory Rate 22 09/19/18 10:35 Blood Pressure 177/84 09/19/18 10:35 O2 Sat by Pulse Oximetry 99 09/19/18 10:35 Temperature 98.0 F 09/19/18 10:35 Pulse Rate 84 09/19/18 13:50 Respiratory Rate 18 09/19/18 13:50 Blood Pressure 176/88 09/19/18 13:50 O2 Sat by Pulse Oximetry 100 09/19/18 13:50 Oxygen Delivery Oxygen Delivery Room Air Medical Decision Making - MDM Narrative Medical decision making narrative: Persistent chest pain in the setting of persistent pleural effusion on CXR, chronic troponin elevation of 0.05, suspect fluid overload versus ACS. Administered ASA and nitroglycerin, chest pain unchanged still rates as a 7/10 Creatinine appears to be at baseline at 7.54 Chronic left lower extremity wound, poor healing, suspicious for cellulitis. We will start antibiotics. - Medical Records Medical records reviewed: Yes I reviewed the patient's medical records. - Lab Data Lab results reviewed: Yes I reviewed the patient's lab results. Result diagrams: 09/19/18 11:00 09/19/18 10:56 Lab Results 09/19/18 09/19/18 Range/Units 10:56 11:00 Hgb 10.5 L (12.9-16.9) g/dL Plt Count 248 (140-400) K/mcL Sodium 135 L (136-145) mEq/L Potassium 4.3 (3.5-5.1) mEq/L Chloride 96 L (98-107) mEq/L Carbon Dioxide 27 (23-29) mEq/L BUN 60 H (6-20) mg/dL Creatinine 7.54 H (0.70-1.30) mg/dL Est GFR ( Amer) 9 L (> 60) Est GFR (Non-Af Amer) 8 L (> 60) BUN/Creatinine Ratio 8 (6-26) Glucose 315 H (70-105) mg/dL Calculated Osmolality 309 H (280-300) Calcium 7.6 L (8.6-10.3) mg/dL Troponin I 0.05 H* (< 0.04) ng/mL - Radiology Data Radiology results reviewed: Yes I reviewed the patient's radiology results. - EKG Data EKG #1 EKG attestation: Yes I reviewed and interpreted this EKG. EKG results narrative: Sinus rhythm HR 84 RR716, ND 172, QRS duration 108, Qt/QTc 406/408, no signs of acute ischemic changes, similar to previous EKG 09/09/18
[2018-09-19 11:32] LABS: Calcium 7.6 mg/dL (8.6-10.3); Potassium 4.3 mEq/L (3.5-5.1)
[2018-09-19 11:37] LABS: Troponin I 0.05 ng/mL (< 0.04)
[2018-09-19 11:49] LABS: Hemoglobin 10.5 g/dL (12.9-16.9)
[2018-09-19] MEDS ORDERED: Aspirin 325 MG TABLET PO ONE (11:49)
--- NOTE | 2018-09-19 12:01 | Emergency Department Note ---
Disposition Referrals: Miya Aden DO [Primary Care Provider] - Forms: ED Satisfaction Letter General Adult HPI - General Chief complaint: ED Chest Pain Stated complaint: maynor/cp Time Seen by Provider: 09/19/18 10:27 Source: patient Limitations: no limitations - History of Present Illness Pain Scale: 7 - Related Data Home Medications Medication Instructions Recorded Confirmed Aspirin [Lo-Dose Aspirin EC] 81 mg PO DAILY 07/30/17 08/16/18 Ergocalciferol (VITAMIN D2) 2 cap PO WE 09/24/17 08/16/18 [Vitamin D2] Insulin ASPART [NovoLOG] 0 unit SQ TIDWM 09/24/17 08/16/18 Insulin Glargine,Hum.rec.anlog 30 unit SQ HS 02/01/18 08/17/18 [Basaglar Kwikpen U-100] Tramadol HCl [Ultram] 50 mg PO Q6H PRN 04/15/18 08/16/18 rOPINIRole [Requip] 0.25 mg PO HS 06/18/18 08/16/18 Atorvastatin [Lipitor] 40 mg PO HS 07/26/18 08/16/18 Calcium Carbonate [Calcium] 600 mg PO DAILY 07/26/18 08/16/18 Metoprolol Succinate [Toprol Xl] 25 mg PO DAILY 07/26/18 08/16/18 Nitroglycerin [Nitrostat] 0.4 mg SL Q5MIN PRN 07/26/18 08/16/18 Ondansetron ODT [Zofran ODT] 4 mg SL Q6HR PRN 07/26/18 08/16/18 Pantoprazole Sodium [Protonix] 40 mg PO BID 07/26/18 08/16/18 Sucralfate [Carafate] 1 gm PO TIDAC 08/04/18 08/16/18 Previous Rx's Medication Instructions Recorded Clopidogrel [Plavix] 75 mg PO DAILY #30 tablet 10/29/17 Isosorbide MONOnitrate (24 HR) 90 mg PO DAILY #90 tab.er.24h 08/19/18 [Imdur] Allergies Allergy/AdvReac Type Severity Reaction Status Date / Time No Known Allergies Allergy Verified 07/26/18 09:54 Past Medical History - Past Medical History Medical history: Reports: atrial fibrillation, CHF, coronary artery disease, diabetes, dialysis, hypertension, renal disease, TIA, venous stasis Surgical history: Reports: cholecystectomy, vascular surgery, other Psychiatric history: Reports: no psych history - Social History Smoking Status: Never smoker Smokeless Tobacco Status: No Alcohol use: Reports: none Drug use: Reports: none Physical Exam - General Limitations: no limitations General appearance: alert, in no apparent distress Course Vital Signs Temperature 98.0 F 09/19/18 10:35 Pulse Rate 89 09/19/18 10:35 Respiratory Rate 22 09/19/18 10:35 Blood Pressure 177/84 09/19/18 10:35 O2 Sat by Pulse Oximetry 99 09/19/18 10:35 Temperature 98.0 F 09/19/18 10:35 Pulse Rate 89 09/19/18 10:35 Respiratory Rate 22 09/19/18 10:35 Blood Pressure 177/84 09/19/18 10:35 O2 Sat by Pulse Oximetry 100 09/19/18 11:01 Oxygen Delivery Oxygen Delivery Room Air Medical Decision Making - Lab Data Result diagrams: 09/19/18 11:00 09/19/18 10:56 Lab Results 09/19/18 09/19/18 Range/Units 10:56 11:00 Hgb 10.5 L (12.9-16.9) g/dL Plt Count 248 (140-400) K/mcL Sodium 135 L (136-145) mEq/L Potassium 4.3 (3.5-5.1) mEq/L Chloride 96 L (98-107) mEq/L Carbon Dioxide 27 (23-29) mEq/L BUN 60 H (6-20) mg/dL Creatinine 7.54 H (0.70-1.30) mg/dL Est GFR ( Amer) 9 L (> 60) Est GFR (Non-Af Amer) 8 L (> 60) BUN/Creatinine Ratio 8 (6-26) Glucose 315 H (70-105) mg/dL Calculated Osmolality 309 H (280-300) Calcium 7.6 L (8.6-10.3) mg/dL Troponin I 0.05 H* (< 0.04) ng/mL Attestation Statement - Attestation Attestation: I examined this patient and my medical decision-making was reviewed with the Resident Physician. I agree with the documented findings, disposition and treatment plan as described except to the extent set forth below. Patient dialyzes Thursday, presents with symptoms typical for his prior episodes of volume overload. Appears clinically well. Is having some chest pain. Troponin 0.05. Potassium unremarkable. EKG nonischemic. Has a pleural effusion on the right, which is consistent with his exam. He has some bibasilar rales are more prominent on the left. Patient will be admitted to the hospital for further evaluation and treatment.
[2018-09-19] MEDS ORDERED: Doxycycline 100 MG in 0.9 % Sodium Chloride Mini Bag 100 ML IVPB ONE (12:18)
[2018-09-19] MEDS: Nitroglycerin 0.4 MG TAB.SUBL SL PRN ×2 (12:26→12:36)
[2018-09-19] MEDS ORDERED: Naloxone 0.4 MG/ML INJ IVP PRN (14:05)
--- NOTE | 2018-09-19 14:19 | Internal Med History&Physical ---
Date of Encounter: 09/19/18 Time of Encounter: 13:45 Internal Medicine - H&P: HPI Chief complaint: short of breath Admitted From: Emergency Dept Plans for Post Hospital Care: Home History of present illness: Mr. Hernandez is a 53 year old male with hx DM and ESRD presented to ED with chest pressure and dyspnea from this AM. He was evaluated and admitted. Mr Hernandez presented to ED with complaints of chest pressure and dyspnea. Pressure is constant and not relieved with nitro. He feels similar to his recent admission and at that time had fluid on his lungs and had thoracentesis. He has had some nausea and emesis multiple times daily. He has been to dialysis and is complaint with his medication. He also has been having some issues with wound on his L leg and it is open again. No drainage. No fever or chills. No cough. At the time of my exam he is resting comfortably. Past Med Surg Social Fam HX - Past Medical History Medical history: atrial fibrillation, CHF, coronary artery disease, diabetes, dialysis, hypertension, renal disease, TIA, venous stasis Additional medical history: Gastric ulcers. Type II Diabetic Psychiatric history: no psych history - Past Surgical History Surgical History: cholecystectomy, vascular surgery, other Additional surgical history: esophageal bypass, prostate surgery - Social History Smoking Status: Never smoker Smokeless Tobacco Status: No Alcohol use: none Drug use: none - Family History Mother Adopted: No Living Status: Hx Family Cardiac Disorders: Yes (mother stroke) Hx Family Respiratory Disorders: Yes (Dad asthma copd) Hx Family Cancer: Yes (prostate, pancreatic) Hx Family GI Disorders: No Hx Family Endocrine Disorder: Yes (DM) Hx Family Neuromuscular Disorders: No Hx Family Neurologic Disorders: No Hx Family HEENT Disorders: No Hx Family Autoimmune Disorders: No Father Adopted: No Living Status: Hx Family Cardiac Disorders: Yes Hx Family Respiratory Disorders: Yes Hx Family Cancer: No Hx Family GI Disorders: No Hx Family Endocrine Disorder: Yes Hx Family Neuromuscular Disorders: No Hx Family Neurologic Disorders: No Hx Family HEENT Disorders: No Hx Family Autoimmune Disorders: No Internal Medicine - H&P: Meds Aspirin [Lo-Dose Aspirin EC] 81 mg PO DAILY 07/30/17 [History] Ergocalciferol (VITAMIN D2) [Vitamin D2] 2 cap PO WE 09/24/17 [History] Insulin ASPART [NovoLOG] 0 unit SQ TIDWM 09/24/17 [History] Clopidogrel [Plavix] 75 mg PO DAILY #30 tablet 10/29/17 [Rx] Insulin Glargine,Hum.rec.anlog [Basaglar Kwikpen U-100] 30 unit SQ HS 02/01/18 [History] Tramadol HCl [Ultram] 50 mg PO Q6H PRN 04/15/18 [History] rOPINIRole [Requip] 0.25 mg PO HS 06/18/18 [History] Atorvastatin [Lipitor] 40 mg PO HS 07/26/18 [History] Calcium Carbonate [Calcium] 600 mg PO DAILY 07/26/18 [History] Metoprolol Succinate [Toprol Xl] 25 mg PO DAILY 07/26/18 [History] Nitroglycerin [Nitrostat] 0.4 mg SL Q5MIN PRN 07/26/18 [History] Ondansetron ODT [Zofran ODT] 4 mg SL Q6HR PRN 07/26/18 [History] Pantoprazole Sodium [Protonix] 40 mg PO BID 07/26/18 [History] Sucralfate [Carafate] 1 gm PO TIDAC 08/04/18 [History] Isosorbide MONOnitrate (24 HR) [Imdur] 90 mg PO DAILY #90 tab.er.24h 08/19/18 [Rx] Allergy/AdvReac Type Severity Reaction Status Date / Time No Known Allergies Allergy Verified 07/26/18 09:54 All Systems PM: A 10-system review of systems was performed and is negative for pertinent findings except as documented above in the HPI. - Constitutional Constitutional: fatigue, lethargy, malaise - EENT Eyes: no change in vision, no pain Ears: no decreased hearing Nose, mouth and throat: dry mouth, no sore throat - Cardiovascular Cardiovascular ROS IM: chest pain, dyspnea, dyspnea on exertion, edema, no lightheadedness, no palpitations - Respiratory Respiratory: dyspnea, dyspnea on exertion, no cough, no wheezing, no chest congestion, no excessive phlegm production - Gastrointestinal Gastrointestinal: nausea, vomiting, no abdominal pain - Genitourinary Genitourinary ROS male: no dysuria - Musculoskeletal Musculoskeletal ROS IM: no back pain, no stiffness - Integumentary Integumentary IM: no rash - Neurological Neurological ROS: no confusion, no tingling, no vertigo, no weakness - Endocrine Endocrine IM: no excessive sweating - Hematologic/Lymphatic Hematologic/Lymphatic: no easy bleeding - Allergic/Immunologic Allergic/Immunologic: no throat swelling - Constitutional Vitals: Temp Pulse Resp BP Pulse Ox 98.0 F 84 18 176/88 100 09/19/18 10:35 09/19/18 13:50 09/19/18 13:50 09/19/18 13:50 09/19/18 13:50 General appearance: Present: A&O X 3, answers questions appropriately Exam: See below - Head Head exam: Present: normocephalic - Eye Eye exam: Present: EOMI, conjuntiva pink - ENT ENT exam: Present: mucous membranes dry - Neck Neck exam general surgery: Present: normal inspection, supple - Respiratory Respiratory exam: Present: decreased breath sounds (on L). Absent: rales, wheezes - Cardiovascular Cardiovascular exam: Present: distant heart sounds, RRR. Absent: tachycardia - GI/Abdominal GI/Abdominal exam: Present: soft. Absent: tenderness - Extremities Exam Extremities exam: Present: warm Additional comments: Open wound with some erythema on L leg. - Neurological Exam Neurological exam: Present: alert, oriented X3 - Skin Skin exam: Present: dry, warm Internal Med - H&P Results - Labs CBC & Chem 7: 09/19/18 11:00 09/19/18 10:56 Labs: Short CBC 09/19/18 Range/Units 11:00 Hgb 10.5 L (12.9-16.9) g/dL Plt Count 248 (140-400) K/mcL BMP 09/19/18 10:56 Sodium 135 L Potassium 4.3 Chloride 96 L Carbon Dioxide 27 BUN 60 H Creatinine 7.54 H Glucose 315 H Calcium 7.6 L Cardiac Enzymes 09/19/18 Range/Units 10:56 Troponin I 0.05 H* (< 0.04) ng/mL - Impressions ITS Impressions Chest X-Ray 09/19/18 10:56 IMPRESSION: Persistent mild right pleural effusion with right basilar atelectasis or infiltrate. D/ / 09/19/2018 11:31:29 Fritz Fong MD / Lucy Molina Interpreting Provider: Fritz Fong MD - Assessment and Plan (1) CHF exacerbation Current Visit: Yes Status: Acute Assessment and plan: Pt presents to ED with recurrent symptoms of dyspnea and fluid retention. CXR shows R pleural effusion. Will consult nephrology and plan possible thoracentesis tomorrow. Qualifiers: Heart failure type: systolic Qualified Code(s): I50.23 - Acute on chronic systolic (congestive) heart failure (2) Chest pain Current Visit: Yes Status: Acute Assessment and plan: Pt with complaints of chest pain that he feels is related to fluid. Will check troponins. Qualifiers: Chest pain type: unspecified Qualified Code(s): R07.9 - Chest pain, unspecified (3) Pleural effusion Current Visit: Yes Status: Acute Assessment and plan: R mild pleural effusion. Will arrange thoracentesis tomorrow. (4) Anemia Current Visit: No Status: Suspected Assessment and plan: Follow H/H. Qualifiers: Anemia type: due to chronic kidney disease Chronic kidney disease stage: on chronic dialysis Qualified Code(s): N18.6 - End stage renal disease; D63.1 - Anemia in chronic kidney disease; Z99.2 - Dependence on renal dialysis (5) Diabetes Current Visit: No Status: Chronic Assessment and plan: Accuchecks and coverage ordered. 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: without joint terminal attack controller use Diabetes mellitus complication status: with kidney complications Diabetes mellitus complication detail: with chronic kidney disease Chronic kidney disease stage: on chronic dialysis Qualified Code(s): E11.22 - Type 2 diabetes mellitus with diabetic chronic kidney disease; N18.6 - End stage renal disease; Z99.2 - Dependence on renal dialysis (6) Venous stasis ulcer Current Visit: No Status: Chronic Assessment and plan: Pt with open area on L leg. Given doxycycline in ED. Will give dose of IV Vancomycin and consult wound care. Qualifiers: Venous stasis ulcer site: other part of lower leg Varicose vein presence: with varicose veins Laterality: left Non-pressure ulcer stage: limited to breakdown of skin Qualified Code(s): I83.028 - Varicose veins of left lower extremity with ulcer other part of lower leg; L97.821 - Non-pressure chronic ulcer of other part of left lower leg limited to breakdown of skin - Time Spent With Patient Total time spent is greater than 50% in coordination of care (as documented) at patient's floor/unit and/or counseling patient:
[2018-09-19] MEDS ORDERED: Ondansetron 4 MG/2 ML VIAL IVP PRN (20:03)
[2018-09-19] MEDS ORDERED: *HR* Dextrose 50 % in Water (Syg) 50 ML SYRINGE IVP PRN (20:04)
[2018-09-19] MEDS ORDERED: Dextrose Gel 15 GM/37.5 ML TUBE PO PRN ×2 (20:04)
[2018-09-19] MEDS ORDERED: D5% in Water 1,000 ML IVC PRN (20:04)
[2018-09-19] MEDS ORDERED: *HR* OxyCODONE Immed Rel 5 MG TABLET PO ONE (21:05)
[2018-09-20 02:32] LABS: Hematocrit 30.3 % (37.5-50.1); Mean Corpuscular Hemoglobin 30.1 pg (28.0-33.3); Mean Corpuscular Volume 91.3 fL (83.0-100.0); Mean Platelet Volume 9.2 fL (9.4-12.4); Platelet Count 184 K/mcL (140-400); Red Blood Count 3.32 M/mcL (4.19-5.50); Red Cell Distribution Width 13.1 % (11.5-14.5); White Blood Count 7.7 K/mcL (4.3-11.1)
[2018-09-20 02:52] LABS: Calcium 7.1 mg/dL (8.6-10.3); Magnesium 1.3 mg/dL (1.6-2.6); Phosphorous 5.6 mg/dL (2.7-4.5)
[2018-09-20] MEDS ORDERED: *HR* Heparin 10,000 UNIT/10 ML VIAL IV PRN (08:21)
[2018-09-20] MEDS ORDERED: 0.9 % Sodium Chloride 250 ML IVC PRN (08:21)
[2018-09-20] MEDS ORDERED: 0.9 % Sodium Chloride 1,000 ML PRIME SCH (08:30)
[2018-09-20] MEDS ORDERED: Ondansetron ODT 4 MG TAB.RAPDIS SL PRN (10:16)
[2018-09-20] MEDS ORDERED: traMADol 50 MG TABLET PO PRN (10:16)
[2018-09-20] MEDS ORDERED: Isosorbide MONOnitrate (24 HR) 30 MG TAB.ER.24H PO SCH (10:30)
[2018-09-20 11:11] LABS: INR 1.1; Prothrombin Time 12.3 Seconds (9.4-12.1)
[2018-09-20] MEDS: Aspirin Enteric Coated 81 MG Tablet PO SCH (13:27)
[2018-09-20] MEDS: Metoprolol XL (24 HR) Succ 25 MG TAB.ER.24H PO SCH (13:27)
[2018-09-20] MEDS: Insulin LISPRO 300 UNITS/3 ML VIAL SQ SCH ×2 (13:42→17:45)
[2018-09-20] MEDS: Sucralfate 1 GM TABLET PO SCH ×2 (13:42→17:37)
[2018-09-20] MEDS ORDERED: Isosorbide MONOnitrate (24 HR) 30 MG TAB.ER.24H PO ONE (15:44)
--- NOTE | 2018-09-20 15:49 | Internal Med Progress Note ---
Hospitalist Progress Note - Encounter Date of Encounter: 09/20/18 Time of Encounter: 15:15 - Subjective Interval History: Mr Hernandez is currently hospitalized for chest pain and dyspnea. He remains moderate to high risk due to potential for worsening clinical status. Mr Hernandez had CP last night and again today. Had palpitation in dialysis. He is starting to feel better. Had thoracentesis today. No fever or chills. No GI issues. - Exam Vitals: Temp Pulse Resp BP Pulse Ox 97.5 F L 78 17 162/80 98 09/20/18 12:10 09/20/18 07:43 09/20/18 12:10 09/20/18 12:10 09/20/18 07:54 Exam: General: Alert and oriented. Lying on his side. Mild distress. Flat affect Skin: Normal color, no rash, H: Normocephalic. EENT: EOMI, Mucus membranes moist. Cardiovascular: Normal S1 & S2, no murmurs Pulse regular. Lungs: Normal breath sounds, No wheeze or rales noted. Abdomen: Soft, non-tender, Extremities: No deformity, Neurological: Normal cognition and motor skills. Pulses: radial pulses normal +2. Rest of the physical exam is non contributory - Assessment and Plan (1) CHF exacerbation Current Visit: Yes Status: Acute Assessment and Plan: Pt presents to ED with recurrent symptoms of dyspnea and fluid retention. Pt had palpitations during dialysis and this was stopped. Had thoracentesis on R - studies pending. Will continue home meds. Further dialysis per renal (2) Chest pain Current Visit: Yes Status: Acute Assessment and Plan: Chest pain persists today He feels maybe improving with thora. Hx [facility] in 06/01 with 3 vessel disease. Will increase Imdur. (3) Pleural effusion Current Visit: Yes Status: Acute Assessment and Plan: R mild pleural effusion. Had thoracentesis today - studies pending. (4) Anemia Current Visit: No Status: Suspected Assessment and Plan: H/H stable. (5) Diabetes Current Visit: No Status: Chronic Assessment and Plan: Accuchecks and coverage ordered. Blood sugar appears controlled. (6) Venous stasis ulcer Current Visit: No Status: Chronic Assessment and Plan: Pt with open area on L leg. Given doxycycline in ED. Will continue on IV Vancomycin for now. Wound care to see. (7) Hypomagnesemia Current Visit: Yes Status: Acute Assessment and Plan: New today. Replace. (8) Calciphylaxis Current Visit: No Status: Chronic Assessment and Plan: Chronic wound on leg. (9) Hypertension Current Visit: No Status: Chronic Assessment and Plan: Fair control at this time. Continue same home meds - Imdur increased today. - Time Spent with Patient Total time spent is greater than 50% in coordination of care (as documented) at patient's floor/unit and/or counseling patient: Internal Medicine: Result - Labs CBC & Chem 7: 09/20/18 02:01 09/20/18 02:01 Labs: Short CBC 09/20/18 Range/Units 02:01 WBC 7.7 (4.3-11.1) K/mcL Hgb 10.0 L (12.9-16.9) g/dL Hct 30.3 L (37.5-50.1) % Plt Count 184 (140-400) K/mcL BMP 09/20/18 02:01 Sodium 137 Potassium 5.0 Chloride 101 Carbon Dioxide 24 BUN 64 H Creatinine 8.55 H Glucose 178 H Calcium 7.1 L Cardiac Enzymes 09/19/18 09/20/18 09/20/18 Range/Units 20:32 02:01 10:50 Troponin I 0.05 H* 0.06 H* 0.06 H* (< 0.04) ng/mL - ABG Interpretation ABG results: PT/INR, D-dimer PT 12.3 Seconds (9.4-12.1) H 09/20/18 10:50 - Impressions Impressions Thoracentesis 09/20/18 10:13 IMPRESSION: Successful ultrasound guided thoracentesis. D/ / Royal Nelson MD / Royal Nelson MD Interpreting Provider: Royal Nelson MD Consult Discharge Plan - Plan Referrals: Miya Aden, [Primary Care Provider] - (1) CHF exacerbation Qualifiers: Heart failure type: systolic Qualified Code(s): I50.23 - Acute on chronic systolic (congestive) heart failure (2) Chest pain Qualifiers: Chest pain type: unspecified Qualified Code(s): R07.9 - Chest pain, unspecified (4) Anemia Qualifiers: Anemia type: due to chronic kidney disease Chronic kidney disease stage: on chronic dialysis Qualified Code(s): N18.6 - End stage renal disease; D63.1 - Anemia in chronic kidney disease; Z99.2 - Dependence on renal dialysis (5) Diabetes Qualifiers: Diabetes mellitus type: type 2 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 insulin use: without terminal computer operator use Diabetes mellitus complication status: with kidney complications Diabetes mellitus complication detail: with chronic kidney disease Chronic kidney disease stage: on chronic dialysis Qualified Code(s): E11.22 - Type 2 diabetes mellitus with diabetic chronic kidney disease; N18.6 - End stage renal disease; Z99.2 - Dependence on renal dialysis (6) Venous stasis ulcer Qualifiers: Venous stasis ulcer site: other part of lower leg Varicose vein presence: wit h varicose veins Laterality: left Non-pressure ulcer stage: limited to breakdown of skin Qualified Code(s): I83.028 - Varicose veins of left lower extremity with ulcer other part of lower leg; L97.821 - Non-pressure chronic ulcer of other part of left lower leg limited to breakdown of skin (9) Hypertension Qualifiers: Hypertension type: essential hypertension Qualified Code(s): I10 - Essential (primary) hypertension
[2018-09-20] MEDS ORDERED: rOPINIRole 0.25 MG TABLET PO SCH (21:00)
[2018-09-20] MEDS ORDERED: Insulin LISPRO 300 UNITS/3 ML VIAL SQ SCH (21:00)
[2018-09-20] MEDS ORDERED: Insulin DETEMIR 100 UNIT/ML X5UNITS SQ SCH (21:00)
--- NOTE | 2018-09-20 21:38 | Electrocardiograph Report ---
[place] [id number] Test Date: 2018-09-19 Pat Name: Abelardo Hernandez Department: 112 Room: 2A Gender: M General Partner: : 1965 Requested By: Toro Sevilla Order Number: [id number] Reading MD: Leyda Bravo Measurements Intervals [place] Rate: 86 P: 23 MN: 167 QRS: 46 QRSD: 96 T: 105 QT: 387 QTc: 431 Interpretive Statements SINUS RHYTHM POSSIBLE INFERIOR MYOCARDIAL INFARCTION, PROBABLY OLD Electronically Signed On 09-20-2018 21:37:11 EDT by Leyda Bravo
--- NOTE | 2018-09-20 22:12 | Electrocardiograph Report ---
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
--- NOTE | 2018-09-20 23:45 | Nephrology Consult Note ---
Date of Encounter: 09/20/18 Time of Encounter: 12:00 Assessment and Plan (1) ESRD (end stage renal disease) Current Visit: No Status: Chronic Continue HD with UF as tolerated if pt agrees to stay for full treatment Might need second treatment if todays treatment not completed (2) CHF exacerbation Current Visit: Yes Status: Acute Qualifiers: Heart failure type: systolic Qualified Code(s): I50.23 - Acute on chronic systolic (congestive) heart failure (3) Chest pain Current Visit: Yes Status: Acute Qualifiers: Chest pain type: unspecified Qualified Code(s): R07.9 - Chest pain, unspecified (4) Pleural effusion Current Visit: Yes Status: Acute History of Present Illness - Reason for Consult Consult date: 09/20/18 end stage renal disease Requesting physician: Patel Woodson - History of Present Illness 53 y o male with PMH of 3 vessel CAD with medical mgt, HTN, DM, CHF, Afib and ESRD on HD with history of noncompliance with HD sessions and frequent hospitalizations for similar symptoms admitted yet again for SOB and chest tightness after recent discharge within 1-2 weeks. Pt seen and examined on HD a ttempting to come off early against medical advise. Of note, pt has been purposely missing HD sessions at least once every week. s/p thoracentesis last hospital stay and noted with recurrent effusion this time as well Past Med Surg Social Fam HX - Past Medical History Medical history: atrial fibrillation, CHF, coronary artery disease, diabetes, dialysis, hypertension, renal disease, TIA, venous stasis Additional medical history: Gastric ulcers. Type II Diabetic Psychiatric history: no psych history - Past Surgical History Surgical History: cholecystectomy, vascular surgery, other Additional surgical history: esophageal bypass, prostate surgery - Social History Smoking Status: Never smoker Smokeless Tobacco Status: No Alcohol use: none Drug use: none - Family History Mother Adopted: No Living Status: Hx Family Cardiac Disorders: Yes (mother stroke) Hx Family Respiratory Disorders: Yes (Dad asthma copd) Hx Family Cancer: Yes (prostate, pancreatic) Hx Family GI Disorders: No Hx Family Endocrine Disorder: Yes (DM) Hx Family Neuromuscular Disorders: No Hx Family Neurologic Disorders: No Hx Family HEENT Disorders: No Hx Family Autoimmune Disorders: No Father Adopted: No Living Status: Hx Family Cardiac Disorders: Yes Hx Family Respiratory Disorders: Yes Hx Family Cancer: No Hx Family GI Disorders: No Hx Family Endocrine Disorder: Yes Hx Family Neuromuscular Disorders: No Hx Family Neurologic Disorders: No Hx Family HEENT Disorders: No Hx Family Autoimmune Disorders: No Medications and Allergies Aspirin [Lo-Dose Aspirin EC] 81 mg PO DAILY 07/30/17 [History] Ergocalciferol (VITAMIN D2) [Vitamin D2] 2 cap PO WE 09/24/17 [History] Insulin ASPART [NovoLOG] 0 unit SQ TIDWM 09/24/17 [History] Clopidogrel [Plavix] 75 mg PO DAILY #30 tablet 10/29/17 [Rx] Insulin Glargine,Hum.rec.anlog [Basaglar Kwikpen U-100] 30 unit SQ HS 02/01/18 [History] Tramadol HCl [Ultram] 50 mg PO Q6H PRN 04/15/18 [History] rOPINIRole [Requip] 0.25 mg PO HS 06/18/18 [History] Atorvastatin [Lipitor] 40 mg PO HS 07/26/18 [History] Calcium Carbonate [Calcium] 600 mg PO DAILY 07/26/18 [History] Metoprolol Succinate [Toprol Xl] 25 mg PO DAILY 07/26/18 [History] Nitroglycerin [Nitrostat] 0.4 mg SL Q5MIN PRN 07/26/18 [History] Ondansetron ODT [Zofran ODT] 4 mg SL Q6HR PRN 07/26/18 [History] Pantoprazole Sodium [Protonix] 40 mg PO BID 07/26/18 [History] Sucralfate [Carafate] 1 gm PO TIDAC 08/04/18 [History] Isosorbide MONOnitrate (24 HR) [Imdur] 90 mg PO DAILY #90 tab.er.24h 08/19/18 [Rx] Allergy/AdvReac Type Severity Reaction Status Date / Time No Known Allergies Allergy Verified 07/26/18 09:54 Exam - Vital Signs Vital signs: Initial Vital Signs Temp Pulse Resp BP Pulse Ox 98.0 F 89 22 177/84 99 09/19/18 10:35 09/19/18 10:35 09/19/18 10:35 09/19/18 10:35 09/19/18 10:35 Vital Signs - Last 8 Hours Temp Pulse Resp BP Pulse Ox 09/20/18 19:02 98.8 F 81 12 148/66 96 09/20/18 16:29 98.1 F 99 19 145/90 97 Intake and Output 09/20/18 09/20/18 09/20/18 07:59 15:59 23:59 Intake Total 860 / 1460 600 / 1460 Output Total 2196 / 2196 Balance -1336 / -736 600 / -736 Intake: Oral 360 / 960 600 / 960 Intake, Rinseback and Flushes 500 / 500 Output: Urine 0 / 0 Total Dialysis (HD) Output 2195 / 2196 Other: Meal Lunch Dinner Percent of Meal Consumed 80% 75% Blood Glucose* 136 125 263 Hemodialysis Net Fluid Removed 1696 (mL) Additional Comments: decreased BS R base Results - Lab Results 09/20/18 02:01 09/20/18 02:01 Consult Discharge Plan - Plan Referrals: Miya Aden, [Primary Care Provider] -
[2018-09-21] MEDS: Levalbuterol Neb 1.25 MG/3 ML IH SCH ×4 (02:01→15:16)
[2018-09-21] MEDS ORDERED: 0.9 % Sodium Chloride 250 ML IVC PRN (07:39)
[2018-09-21] MEDS ORDERED: *HR* Heparin 10,000 UNIT/10 ML VIAL IV PRN (07:39)
[2018-09-21] MEDS ORDERED: 0.9 % Sodium Chloride 1,000 ML PRIME SCH (07:45)
[2018-09-21] MEDS: Metoprolol XL (24 HR) Succ 25 MG TAB.ER.24H PO SCH (07:46)
[2018-09-21] MEDS: Insulin LISPRO 300 UNITS/3 ML VIAL SQ SCH ×3 (07:46→12:00)
[2018-09-21] MEDS: Sucralfate 1 GM TABLET PO SCH ×2 (07:46→13:36)
[2018-09-21] MEDS: Aspirin Enteric Coated 81 MG Tablet PO SCH (07:46)
[2018-09-21] MEDS ORDERED: Isosorbide MONOnitrate (24 HR) 60 MG TAB.ER.24H PO SCH (09:00)
[2018-09-21] MEDS ORDERED: 0.9 % Sodium Chloride 1,000 ML ONE (09:24)
[2018-09-21 09:32] LABS: Hematocrit 30.8 % (37.5-50.1); Hemoglobin 10.2 g/dL (12.9-16.9); Mean Corpuscular HGB Conc 33.1 g/dL (31.6-35.5); Mean Corpuscular Hemoglobin 29.7 pg (28.0-33.3); Mean Corpuscular Volume 89.5 fL (83.0-100.0); Mean Platelet Volume 8.6 fL (9.4-12.4); Platelet Count 216 K/mcL (140-400); Red Blood Count 3.44 M/mcL (4.19-5.50); Red Cell Distribution Width 12.8 % (11.5-14.5); White Blood Count 6.4 K/mcL (4.3-11.1)
[2018-09-21 10:03] LABS: Calcium 8.1 mg/dL (8.6-10.3); Magnesium 1.8 mg/dL (1.6-2.6); Potassium 3.5 mEq/L (3.5-5.1)
[2018-09-21 12:05] VITALS: BP 142/72
--- NOTE | 2018-09-21 14:49 | Discharge Summary ---
- NOTES TO OUTPATIENT PROVIDER Notes to Outpatient Provider: Mr Hernandez was placed in observation due to volume overload (from noncompliance with dialysis). He had thoracentesis on R and inpatient dialysis. Orders not resulted at time of discharge: Pending orders 09/20/18 10:16 Albumin,Body Fluid Routine Cell Count w Diff, Pleural Fld [BF] Routine Glucose,Pleural Fluid [BF] Routine LDH,Pleural Fluid [BF] Routine Total Protein,Pleural Fluid [BF] Routine pH,Pleural Fluid [BF] Routine 09/22/18 04:00 Basic Metabolic Panel AM 0400 CBC no Diff [Complete Blood Count w/o Diff] [HEME] AM 0400 Date of Encounter: 09/21/18 Time of Encounter: 13:30 - Discharge Diagnosis (1) CHF exacerbation Priority: Primary Status: Resolved Qualifiers: Heart failure type: systolic Qualified Code(s): I50.23 - Acute on chronic systolic (congestive) heart failure (2) Chest pain Priority: Secondary Status: Acute Qualifiers: Chest pain type: chest pain due to myocardial ischemia Ischemic chest pain type: stable angina pectoris Qualified Code(s): I20.8 - Other forms of angina pectoris (3) Pleural effusion Priority: Secondary Status: Resolved (4) Anemia Priority: Secondary Status: Suspected Qualifiers: Anemia type: due to chronic kidney disease Chronic kidney disease stage: on chronic dialysis Qualified Code(s): N18.6 - End stage renal disease; D63.1 - Anemia in chronic kidney disease; Z99.2 - Dependence on renal dialysis (5) Diabetes Priority: Secondary Status: Chronic Qualifiers: Diabetes mellitus type: type 2 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: without bed bug exterminator use Diabetes mellitus complication status: with kidney complications Diabetes mellitus complication detail: with chronic kidney disease Chronic kidney disease stage: on chronic dialysis Qualified Code(s): E11.22 - Type 2 diabetes mellitus with diabetic chronic kidney disease; N18.6 - End stage renal disease; Z99.2 - Dependence on renal dialysis (6) Venous stasis ulcer Priority: Secondary Status: Chronic Qualifiers: Venous stasis ulcer site: other part of lower leg Varicose vein presence: with varicose veins Laterality: left Non-pressure ulcer stage: limited to breakdown of skin Qualified Code(s): I83.028 - Varicose veins of left lower extremity with ulcer other part of lower leg; L97.821 - Non-pressure chronic ulcer of other part of left lower leg limited to breakdown of skin (7) Hypomagnesemia Priority: Secondary Status: Resolved (8) Calciphylaxis Priority: Secondary Status: Chronic (9) Hypertension Priority: Secondary Status: Chronic Qualifiers: Hypertension type: essential hypertension Qualified Code(s): I10 - Essential (primary) hypertension Hospital course: Mr. Hernandez is a 53 year old male with hx DM and ESRD presented to ED with worsened dyspnea. He was evaluated and subsequently placed in observation. Mr Hernandez was placed in observation for volume overload/CHF exacerbation. He underwent dialysis the next day but stopped early due to palpitations. He had thoracentesis of his R side and 932 ml removed. He improved with that procedure. He has chronic angina and continues to have intermittent chest pain. He is on multiple meds for medical management. He has hx of calciphylaxis and open area on L gresham. He was seen by wound care and calcium alginate ordered. Today he had dialysis as well. At this time he feels weak but is afebrile. He is ready for discharge home. He was advised to resume his usual dialysis schedule and follow his ordered diet and fluid restriction. Discharge discussed with: patient - Time Spent with Patient Total time spent providing and/or coordinating discharge services: 35min - Discharge Medications Prescriptions: New Benzethonium Chloride [Dermal Wound Cleanser] 236 ml TP DAILY #3 cleanser Alginate Dressing/Cme-Cell [Maxorb 4"X4" Dressing] 1 each TP DAILY #30 bandage Continued Aspirin [Lo-Dose Aspirin EC] 81 mg PO DAILY Insulin ASPART [NovoLOG] 0 unit SQ TIDWM Ergocalciferol (VITAMIN D2) [Vitamin D2] 2 cap PO WE Clopidogrel [Plavix] 75 mg PO DAILY #30 tablet Insulin Glargine,Hum.rec.anlog [Basaglar Kwikpen U-100] 30 unit SQ HS Tramadol HCl [Ultram] 50 mg PO Q6H PRN PRN Reason: Pain rOPINIRole [Requip] 0.25 mg PO HS Atorvastatin [Lipitor] 40 mg PO HS Calcium Carbonate [Calcium] 600 mg PO DAILY Metoprolol Succinate [Toprol Xl] 25 mg PO DAILY Nitroglycerin [Nitrostat] 0.4 mg SL Q5MIN PRN PRN Reason: Chest Pain Ondansetron ODT [Zofran ODT] 4 mg SL Q6HR PRN PRN Reason: n/v Pantoprazole Sodium [Protonix] 40 mg PO BID Sucralfate [Carafate] 1 gm PO TIDAC Isosorbide MONOnitrate (24 HR) [Imdur] 90 mg PO DAILY #90 tab.er.24h Ranolazine [Ranexa] 1,000 mg PO Q12H Home Medications: Aspirin [Lo-Dose Aspirin EC] 81 mg PO DAILY 07/30/17 [History] Ergocalciferol (VITAMIN D2) [Vitamin D2] 2 cap PO WE 09/24/17 [History] Insulin ASPART [NovoLOG] 0 unit SQ TIDWM 09/24/17 [History] Clopidogrel [Plavix] 75 mg PO DAILY #30 tablet 10/29/17 [Rx] Insulin Glargine,Hum.rec.anlog [Basaglar Kwikpen U-100] 30 unit SQ HS 02/01/18 [History] Tramadol HCl [Ultram] 50 mg PO Q6H PRN 04/15/18 [History] rOPINIRole [Requip] 0.25 mg PO HS 06/18/18 [History] Atorvastatin [Lipitor] 40 mg PO HS 07/26/18 [History] Calcium Carbonate [Calcium] 600 mg PO DAILY 07/26/18 [History] Metoprolol Succinate [Toprol Xl] 25 mg PO DAILY 07/26/18 [History] Nitroglycerin [Nitrostat] 0.4 mg SL Q5MIN PRN 07/26/18 [History] Ondansetron ODT [Zofran ODT] 4 mg SL Q6HR PRN 07/26/18 [History] Pantoprazole Sodium [Protonix] 40 mg PO BID 07/26/18 [History] Sucralfate [Carafate] 1 gm PO TIDAC 08/04/18 [History] Isosorbide MONOnitrate (24 HR) [Imdur] 90 mg PO DAILY #90 tab.er.24h 08/19/18 [Rx] Alginate Dressing/Cme-Cell [Maxorb 4"X4" Dressing] 1 each TP DAILY #30 bandage 09/21/18 [Rx] Benzethonium Chloride [Dermal Wound Cleanser] 236 ml TP DAILY #3 cleanser 09/21/18 [Rx] Ranolazine [Ranexa] 1,000 mg PO Q12H 09/21/18 [History] Allergies/Adverse Reactions: Allergy/AdvReac Type Severity Reaction Status Date / Time No Known Allergies Allergy Verified 07/26/18 09:54 Date of admission: 09/19/18 14:29 Primary care physician: Jacobo Booker Consults: 09/19/18 14:07 Consult to Physician [CONS] Routine Consulting Provider: Dixie Chow Reason for Consult: Dialysis patient Call Completed: Yes 09/19/18 17:52 Consult to Wound Care [CONS] Routine Reason for Consult: open wounds to left lower extremity Call Completed: No 09/20/18 08:30 Consult to Dialysis [CONS] ONCE 09/20/18 14:39 Consult to Nurse Navigator [CONS] Routine Comment: chf, hd 09/21/18 07:45 Consult to Dialysis [CONS] ONCE Discharging clinician: Patel Woodson Anticipated date of discharge: 09/21/18 - Constitutional Vitals: Temp Pulse Resp BP Pulse Ox 97.8 F 77 18 142/72 98 09/21/18 11:54 09/21/18 07:07 09/21/18 11:54 09/21/18 11:54 09/21/18 07:07 General appearance: Present: A&O X 3, answers questions appropriately Exam: See below - Head Head exam: Present: atraumatic, normocephalic - Eye Eye exam: Present: EOMI, conjuntiva pink - ENT ENT exam: Present: mucous membranes moist - Respiratory Respiratory exam: Present: decreased breath sounds, CTAB - Cardiovascular Cardiovascular exam: Present: RRR. Absent: tachycardia - GI/Abdominal GI/Abdominal exam: Present: soft. Absent: tenderness - Extremities Exam Extremities exam: Present: warm Additional comments: Ulcer anterior gresham L - Neurological Exam Neurological exam: Present: alert, oriented X3 - Skin Skin exam: Present: dry, warm - Patient Status Disposition: Home, Self-Care Condition: Fair Functional capacity at discharge: independent ambulation Overall status at discharge: patient is progressing back to baseline - Discharge Instructions Follow Up With: Miya Aden DO [Primary Care Provider] - Additional Instructions: Wound care: Cleanse with dermal wound cleanser - cover ulcer with calcium alginate - pad with 5x9 ABD - wrap with Kerlix. Change daily and as needed. - Diet and Activity Activity: resume usual activities as tolerated Diet: advance to your usual diet
--- NOTE | 2018-09-23 20:00 | Electrocardiograph Report ---
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
== END 2018-09-21 16:47 | disposition home or self-care (01) ==
LOC: 2ANU 10:23 → EMEROOARM 10:23 → 2ANU 15:00
PROVIDERS: ADMIT Internal Medicine; ATTEND Internal Medicine

== ENCOUNTER 2018-09-26 18:22 | Inpatient (IN) ==
--- NOTE | 2018-09-26 18:51 | Emergency Department Note ---
Disposition Clinical Impression: ESRD (end stage renal disease) Congestive heart failure Qualifiers: Heart failure type: combined systolic and diastolic Heart failure chronicity: acute on chronic Qualified Code(s): I50.43 - Acute on chronic combined systolic (congestive) and diastolic (congestive) heart failure Disposition: Admitted As Inpatient Referrals: Miya Aden DO [Partnered Physician] - Forms: ED Satisfaction Letter Time of Disposition: 20:35 General Adult HPI - General Chief complaint: ED Shortness of Breath/Dyspnea Stated complaint: "CHF", DEA Time Seen by Provider: 09/26/18 18:34 Source: patient Limitations: no limitations Nursing Notes Reviewed: Yes Vital Signs Reviewed: Yes - History of Present Illness HPI Narrative: 53-year-old male history of end-stage renal disease dialysis dependent 3 times a week he said he missed about a week or so due to family member being injured and was down at twice a week but said this week he had [address] Argelia bryant vp patient. He said several visits over the past month or 2 with almost identical presentation of increasing shortness of breath orthopnea dyspnea on exertion chest discomfort. She denies fevers chills or sputum. Patient has chronic venous stasis ulcers in his lower extremity with hyperpigmentation. Patient states that he has had no ill contacts exotic food or recent travel. No recent medication changes. Patient also complains that about 2 days ago one of his grandchildren was lying down and accidentally struck him in the right testes of his pain there history of hydrocele wanted make sure "everything was alright. Patient denies any bleeding or swelling. Pain Scale: 0 - Related Data Home Medications Medication Instructions Recorded Confirmed Aspirin [Lo-Dose Aspirin EC] 81 mg PO DAILY 07/30/17 09/21/18 Ergocalciferol (VITAMIN D2) 2 cap PO WE 09/24/17 09/21/18 [Vitamin D2] Insulin ASPART [NovoLOG] 0 unit SQ TIDWM 09/24/17 09/21/18 Insulin Glargine,Hum.rec.anlog 30 unit SQ HS 02/01/18 09/21/18 [Basaglar Kwikpen U-100] Tramadol HCl [Ultram] 50 mg PO Q6H PRN 04/15/18 09/21/18 rOPINIRole [Requip] 0.25 mg PO HS 06/18/18 09/21/18 Atorvastatin [Lipitor] 40 mg PO HS 07/26/18 09/21/18 Calcium Carbonate [Calcium] 600 mg PO DAILY 07/26/18 09/21/18 Metoprolol Succinate [Toprol Xl] 25 mg PO DAILY 07/26/18 09/21/18 Nitroglycerin [Nitrostat] 0.4 mg SL Q5MIN PRN 07/26/18 09/21/18 Ondansetron ODT [Zofran ODT] 4 mg SL Q6HR PRN 07/26/18 09/21/18 Pantoprazole Sodium [Protonix] 40 mg PO BID 07/26/18 09/21/18 Sucralfate [Carafate] 1 gm PO TIDAC 08/04/18 09/21/18 Ranolazine [Ranexa] 1,000 mg PO Q12H 09/21/18 09/21/18 Previous Rx's Medication Instructions Recorded Clopidogrel [Plavix] 75 mg PO DAILY #30 tablet 10/29/17 Isosorbide MONOnitrate (24 HR) 90 mg PO DAILY #90 tab.er.24h 08/19/18 [Imdur] Alginate Dressing/Cme-Cell [Maxorb 1 each TP DAILY #30 bandage 09/21/18 4"X4" Dressing] Benzethonium Chloride [Dermal 236 ml TP DAILY #3 cleanser 09/21/18 Wound Cleanser] Allergies Allergy/AdvReac Type Severity Reaction Status Date / Time No Known Allergies Allergy Verified 07/26/18 09:54 All systems ED: reviewed and negative except as stated. Constitutional: Reports: weight change Cardiovascular: Reports: dyspnea on exertion, orthopnea, paroxysmal nocturnal dyspnea Respiratory: Reports: dyspnea, wheezes Genitourinary: Reports: testicular pain Past Medical History - Past Medical History Attestation: Yes The following information was validated with the patient. Source: patient, old records reviewed Medical history: Reports: atrial fibrillation, CHF, coronary artery disease, diabetes, dialysis, hypertension, renal disease, TIA, venous stasis Surgical history: Reports: cholecystectomy, vascular surgery, other Psychiatric history: Reports: no psych history - Social History Smoking Status: Never smoker Smokeless Tobacco Status: No Alcohol use: Reports: none Drug use: Reports: none Physical Exam - General Limitations: no limitations General appearance: alert, anxious - Head Head exam: atraumatic, normocephalic - Eye Eye exam: Present: normal appearance, PERRL, EOMI - ENT ENT exam: normal exam, normal oropharynx - Neck Neck exam: Present: normal inspection, full ROM - Chest Chest inspection: Present: normal inspection, symmetric chest wall rise - Respiratory Respiratory exam: Present: prolonged expiratory phase, other (Bibasilar rales and crackles one quarter the way up) - Cardiovascular Cardiovascular exam: Present: regular rate, normal rhythm - Abdominal Exam Abdominal exam: Present: soft, Non-Tender - Male exam: Present: normal inspection, normal testicular lie. Absent: circumcised, testicular tenderness - Extremities Exam Extremities exam: Present: pedal edema, other (Bilateral chronic venous stasis ulcers with hyperpigmentation. No signs of acute neurovascular compromise tissue necrosis or cellulitis) - Expanded Lower Extremity Exam Neurovascular/Tendon exam: Present: normal capillary refill Gait: observed and normal - Back Exam Back exam: Present: normal inspection, full ROM. Absent: CVA tenderness (R), CVA tenderness (L) - Neurological Exam Neurological exam: Present: alert, oriented X3, CN II-XII intact - Psychiatric Psychiatric exam: Present: normal affect, normal mood - Skin Skin exam: Present: warm, dry - Other Other exam information: I examined the patient's AV shunt in the left upper extremity there is good thrill there is no signs of bleeding warmth erythema or purulent discharge. Course - Reevaluation(s) Reevaluation #1: Patient end-stage renal disease dialysis dependent comes in with what appears to be CHF exacerbation. Dr. Anjali Chow's his vp patient. He has rales "of the way up. Patient will get some screening labs chest x-ray. We will get an IV established. Anticipated plan is consultation with nephrology for possible dialysis tonight or early tomorrow morning and with admission for congestive heart failure. Providing 45 minutes critical care service for this patient. Admission disposition pending Time: 18:54 Reevaluation #2: Patient's laboratory values full return and troponins elevated 0.04 "with Dr. acosta however patient has end-stage renal disease in his troponins or at least that are higher at baseline. Patient has baseline anemia no acute significant deviations elevated white count chemistry panel otherwise appears unremarkable as far as changes from prior end-stage renal disease samples performed. Patient is awaiting chest x-ray be admitted. Time: 19:59 Reevaluation #3: Discussed case with the hospitalist Dr. WADDELL, patient accepted for admission. He recommended patient at 80 mg of IV Lasix which I ordered. Patient minute in stable condition. Time: 20:34 Vital Signs Temperature 98.0 F 09/26/18 18:23 Pulse Rate 88 09/26/18 18:23 Respiratory Rate 18 09/26/18 18:23 Blood Pressure 192/85 09/26/18 18:23 O2 Sat by Pulse Oximetry 99 09/26/18 18:23 Temperature 98.0 F 09/26/18 18:23 Pulse Rate 88 09/26/18 18:23 Respiratory Rate 18 09/26/18 18:23 Blood Pressure 192/85 09/26/18 18:23 O2 Sat by Pulse Oximetry 99 09/26/18 18:23 Oxygen Delivery Oxygen Delivery Room Air Medical Decision Making - Medical Records Medical records reviewed: Yes I reviewed the patient's medical records. - Lab Data Lab results reviewed: Yes I reviewed the patient's lab results. Result diagrams: 09/26/18 19:03 09/26/18 19:03 Lab Results 09/26/18 09/26/18 09/26/18 Range/Units 19:03 19:03 19:03 WBC 7.6 (4.3-11.1) K/mcL RBC 3.23 L (4.19-5.50) M/mcL Hgb 9.7 L (12.9-16.9) g/dL Hct 29.2 L (37.5-50.1) % MCV 90.4 (83.0-100.0) fL MCH 30.0 (28.0-33.3) pg MCHC 33.2 (31.6-35.5) g/dL RDW 13.1 (11.5-14.5) % Plt Count 280 (140-400) K/mcL MPV 8.7 L (9.4-12.4) fL Immature Gran % 0.4 (0-4) % Seg Neutrophils % 66.2 % Lymphocytes % 19.9 % Monocytes % 9.6 % Eosinophils % 3.4 % Basophils % 0.5 % Neutrophils # 5.0 (1.6-8.9) K/mcL Lymphocytes # 1.5 (0.6-4.6) K/mcL Monocytes # 0.7 (0.0-1.3) K/mcL Eosinophils # 0.3 (0.0-0.6) K/mcL Basophils # 0.0 (0.0-0.2) K/mcL PT (9.4-12.1) Seconds INR Sodium 135 L (136-145) mEq/L Potassium 5.0 (3.5-5.1) mEq/L Chloride 95 L (98-107) mEq/L Carbon Dioxide 24 (23-29) mEq/L BUN 88 H (6-20) mg/dL Creatinine 8.19 H (0.70-1.30) mg/dL Est GFR ( Amer) 8 L (> 60) Est GFR (Non-Af Amer) 7 L (> 60) BUN/Creatinine Ratio 11 (6-26) Glucose 253 H (70-105) mg/dL Calculated Osmolality 315 H (280-300) Lactic Acid 1.2 (0.5-2.2) mmol/L Calcium 7.3 L (8.6-10.3) mg/dL Troponin I 0.04 H* (< 0.04) ng/mL B-Natriuretic Peptide (Less than 100) pg/mL 09/26/18 09/26/18 Range/Units 19:03 19:03 WBC (4.3-11.1) K/mcL RBC (4.19-5.50) M/mcL Hgb (12.9-16.9) g/dL Hct (37.5-50.1) % MCV (83.0-100.0) fL MCH (28.0-33.3) pg MCHC (31.6-35.5) g/dL RDW (11.5-14.5) % Plt Count (140-400) K/mcL MPV (9.4-12.4) fL Immature Gran % (0-4) % Seg Neutrophils % % Lymphocytes % % Monocytes % % Eosinophils % % Basophils % % Neutrophils # (1.6-8.9) K/mcL Lymphocytes # (0.6-4.6) K/mcL Monocytes # (0.0-1.3) K/mcL Eosinophils # (0.0-0.6) K/mcL Basophils # (0.0-0.2) K/mcL PT 11.8 (9.4-12.1) Seconds INR 1.0 Sodium (136-145) mEq/L Potassium (3.5-5.1) mEq/L Chloride (98-107) mEq/L Carbon Dioxide (23-29) mEq/L BUN (6-20) mg/dL Creatinine (0.70-1.30) mg/dL Est GFR ( Amer) (> 60) Est GFR (Non-Af Amer) (> 60) BUN/Creatinine Ratio (6-26) Glucose (70-105) mg/dL Calculated Osmolality (280-300) Lactic Acid (0.5-2.2) mmol/L Calcium (8.6-10.3) mg/dL Troponin I (< 0.04) ng/mL B-Natriuretic Peptide 648 H (Less than 100) pg/mL - Radiology Data Radiology results reviewed: Yes I reviewed the patient's radiology results. - EKG Data EKG #1 EKG attestation: Yes I reviewed and interpreted this EKG. EKG results narrative: Patient had a twelve-lead EKG interpreted without the benefit of Cardiologic assistance shows a sinus rhythm at 87 bpm, normal SD QRS and QT corrected. Signs of old ischemic changes but no acute ischemic changes noted. No acute ischemic changes when compared to a prior EKG dated
[2018-09-26 19:22] LABS: Basophils % 0.5 %; Eosinophils # 0.3 K/mcL (0.0-0.6); Eosinophils % 3.4 %; Hematocrit 29.2 % (37.5-50.1); Hemoglobin 9.7 g/dL (12.9-16.9); Immature Granulocytes % 0.4 % (0-4); Lymphocytes # 1.5 K/mcL (0.6-4.6); Lymphocytes % 19.9 %; Mean Corpuscular HGB Conc 33.2 g/dL (31.6-35.5); Mean Corpuscular Volume 90.4 fL (83.0-100.0); Mean Platelet Volume 8.7 fL (9.4-12.4); Monocytes # 0.7 K/mcL (0.0-1.3); Monocytes % 9.6 %; Platelet Count 280 K/mcL (140-400); Red Blood Count 3.23 M/mcL (4.19-5.50); Red Cell Distribution Width 13.1 % (11.5-14.5); Segmented Neutrophils % 66.2 %; White Blood Count 7.6 K/mcL (4.3-11.1)
[2018-09-26 19:33] LABS: Prothrombin Time 11.8 Seconds (9.4-12.1)
[2018-09-26 19:44] LABS: Calcium 7.3 mg/dL (8.6-10.3); Troponin I 0.04 ng/mL (< 0.04)
[2018-09-26] MEDS ORDERED: Furosemide 80 MG in 0.9 % Sodium Chloride 50 ML IVPB ONE (20:33)
[2018-09-26] MEDS ORDERED: Aminoglycoside Consult 1 EACH MC ONE (20:59)
[2018-09-27] MEDS ORDERED: Naloxone 0.4 MG/ML INJ IVP PRN (01:00)
--- NOTE | 2018-09-27 01:10 | Internal Med History&Physical ---
Date of Encounter: 09/26/18 Time of Encounter: 23:40 Internal Medicine - H&P: HPI Chief complaint: Shortness of breath Admitted From: Emergency Dept Plans for Post Hospital Care: Home History of present illness: Mr. Hernandez is a 53 year old male Patient presented to the emergency room with increased shortness of breath. He has recently been in the hospital, and discharged on September 21. He has been inconsistent with his dialysis sessions, he has end-stage renal disease with multiple admissions for shortness of breath and fluid overload. He has required thoracentesis in the past. His brother who lives in another state was recently injured, and the patient has been traveling back and forth to help him. He has missed some dialysis sessions, but states over the last week he was compliant. However, after his dialysis sessions, he says that he gets very weak and he has continued shortness of breath. He returned to the emergency room for evaluation. In the emergency room patient's initial vital signs indicated a blood pressure of 192/85., Otherwise within normal limits CBC: White count 7.6, hemoglobin 9.7, platelets 280 BMP: Sodium 135, potassium 5.0. Elevated BUN and creatinine consistent with end-stage renal disease. Glucose 253. Lactic acid 1.2 Calcium 7.3 Troponin 0.04, trending down from his previous admission when he was discharged at 0.06. He has had elevated troponins consistently since April of this year. BNP 648, consistent with end-stage renal disease Chest x-ray shows unchanged right basilar airspace opacity and small pleural effusion Patient received 80 mg of IV Lasix, and was admitted to the hospital for further management. Upon my evaluation, patient is resting comfortably in the hospital bed in no acute distress. He denies chest pain, abdominal pain but has had vomiting and loose stools lately. He denies watery diarrhea or blood in his stool or vomit. He states that he feels full of fluid and is worried that he may need the fluid in his chest drained again. He has lower extremity wounds which he says he has seen wound care for in the past. He has not been following up with them lately due to his frequent traveling. He has diabetic as well. He is a DNR/DNI. This is the patient's 10th admission this year. Past Med Surg Social Fam HX - Past Medical History Medical history: atrial fibrillation, CHF, coronary artery disease, diabetes, dialysis, hypertension, renal disease, TIA, venous stasis Additional medical history: Gastric ulcers. Type II Diabetic Psychiatric history: no psych history - Past Surgical History Surgical History: cholecystectomy, vascular surgery, other Additional surgical history: esophageal bypass, prostate surgery - Social History Smoking Status: Never smoker Smokeless Tobacco Status: No Alcohol use: none Drug use: none - Family History Mother Adopted: No Living Status: Hx Family Cardiac Disorders: Yes (mother stroke) Hx Family Respiratory Disorders: Yes (Dad asthma copd) Hx Family Cancer: Yes (prostate, pancreatic) Hx Family GI Disorders: No Hx Family Endocrine Disorder: Yes (DM) Hx Family Neuromuscular Disorders: No Hx Family Neurologic Disorders: No Hx Family HEENT Disorders: No Hx Family Autoimmune Disorders: No Father Adopted: No Living Status: Age at : 66 Cause of : infection/prostate cancer Hx Family Cardiac Disorders: Yes (father, stents) Hx Family Respiratory Disorders: Yes (father COPD) Hx Family Cancer: Yes (Father prostate cancer uncle colon) Hx Family GI Disorders: No Hx Family Genitourinary Disorders: No Hx Family Endocrine Disorder: Yes (dM) Hx Family Musculoskeletal Disorders: No Hx Family Neuromuscular Disorders: No Hx Family Neurologic Disorders: No Hx Family HEENT Disorders: No Hx Family Autoimmune Disorders: No Hx Family Reproductive Disorders: No Hx Family Psychosocial Disorders: No Hx Family Medical Disorders: No Internal Medicine - H&P: Meds Aspirin [Lo-Dose Aspirin EC] 81 mg PO DAILY 07/30/17 [History] Ergocalciferol (VITAMIN D2) [Vitamin D2] 2 cap PO WE 09/24/17 [History] Insulin ASPART [NovoLOG] 0 unit SQ TIDWM 09/24/17 [History] Clopidogrel [Plavix] 75 mg PO DAILY #30 tablet 10/29/17 [Rx] Insulin Glargine,Hum.rec.anlog [Basaglar Kwikpen U-100] 30 unit SQ HS 02/01/18 [History] Tramadol HCl [Ultram] 50 mg PO Q6H PRN 04/15/18 [History] rOPINIRole [Requip] 0.25 mg PO HS 06/18/18 [History] Atorvastatin [Lipitor] 40 mg PO HS 07/26/18 [History] Calcium Carbonate [Calcium] 600 mg PO DAILY 07/26/18 [History] Metoprolol Succinate [Toprol Xl] 25 mg PO DAILY 07/26/18 [History] Nitroglycerin [Nitrostat] 0.4 mg SL Q5MIN PRN 07/26/18 [History] Ondansetron ODT [Zofran ODT] 4 mg SL Q6HR PRN 07/26/18 [History] Pantoprazole Sodium [Protonix] 40 mg PO BID 07/26/18 [History] Sucralfate [Carafate] 1 gm PO TIDAC 08/04/18 [History] Isosorbide MONOnitrate (24 HR) [Imdur] 90 mg PO DAILY #90 tab.er.24h 08/19/18 [Rx] Alginate Dressing/Cme-Cell [Maxorb 4"X4" Dressing] 1 each TP DAILY #30 bandage 09/21/18 [Rx] Benzethonium Chloride [Dermal Wound Cleanser] 236 ml TP DAILY #3 cleanser 09/21/18 [Rx] Ranolazine [Ranexa] 1,000 mg PO Q12H 09/21/18 [History] Allergy/AdvReac Type Severity Reaction Status Date / Time No Known Allergies Allergy Verified 07/26/18 09:54 All Systems PM: A 10-system review of systems was performed and is negative for pertinent findings except as documented above in the HPI. - Constitutional Vitals: Temp Pulse Resp BP Pulse Ox 98.4 F 95 18 200/108 100 09/26/18 23:08 09/26/18 23:08 09/26/18 23:08 09/26/18 23:08 09/26/18 23:08 General appearance: Present: cooperative, A&O X 3, pleasant, no acute distress, answers questions appropriately Exam: - - Head Head exam: Present: normal inspection - Eye Eye exam: Present: EOMI, normal appearance - Neck Neck exam general surgery: Absent: tenderness - Respiratory Respiratory exam: Present: decreased breath sounds, CTAB. Absent: rales, respiratory distress, rhonchi, wheezes - Cardiovascular Cardiovascular exam: Present: RRR. Absent: diastolic murmur, systolic murmur - GI/Abdominal GI/Abdominal exam: Present: normal bowel sounds, soft. Absent: tenderness - Extremities Exam Extremities exam: Present: warm, radial pulses palpable and symmetrical. Absent: pedal edema, tenderness Additional comments: Multiple wounds to the lower extremities in various stages of healing. Erythematous, likely chronic venous changes - Neurological Exam Neurological exam: Present: no focal deficits, strengths equal and symetr throughout. Absent: motor sensory deficit, facial droop, speech deficit - Skin Skin exam: Present: abrasion, dry, erythema, normal color, warm Additional comments: Erythematous lower extremities with wounds as described above Internal Med - H&P Results - Labs CBC & Chem 7: 09/26/18 19:03 09/26/18 19:03 Labs: Short CBC 09/26/18 Range/Units 19:03 WBC 7.6 (4.3-11.1) K/mcL Hgb 9.7 L (12.9-16.9) g/dL Hct 29.2 L (37.5-50.1) % Plt Count 280 (140-400) K/mcL Neutrophils # 5.0 (1.6-8.9) K/mcL BMP 09/26/18 19:03 Sodium 135 L Potassium 5.0 Chloride 95 L Carbon Dioxide 24 BUN 88 H Creatinine 8.19 H Glucose 253 H Calcium 7.3 L Cardiac Enzymes 09/26/18 Range/Units 19:03 Troponin I 0.04 H* (< 0.04) ng/mL - Impressions ITS Impressions Chest X-Ray 09/26/18 18:44 IMPRESSION: Unchanged right basilar airspace opacities and small pleural effusion. D/ / James Sosa MD / James Sosa MD Interpreting Provider: James Sosa MD - Assessment and Plan (1) Dyspnea Current Visit: No Status: Acute Assessment and plan: Patient returns to the hospital after being discharged 1 week ago with shortness of breath. Chest x-ray revealed a persistent right-sided opacity and small pleural effusion. Patient's white count and lactic acid not elevated, vital signs also not meeting sirs or septic criteria. Do not necessarily think infectious cause at this time. Patient received 80 mg of IV Lasix in the emergency room. Strict I's and O's Daily weights Continue IV Lasix Nephrology consult for dialysis in the morning Qualifiers: Dyspnea type: unspecified Qualified Code(s): R06.00 - Dyspnea, unspecified (2) Congestive heart failure Current Visit: Yes Status: Acute Assessment and plan: Patient has a history of congestive heart failure. Also has end-stage renal disease. No lower extremity edema, but patient does have lower extremity wounds and chest x-ray shows pleural effusion. Echocardiogram performed on August 18 demonstrated an EF of 55% with normal right ventricular structure and function Continue IV Lasix Dialysis in the morning Qualifiers: Heart failure type: combined systolic and diastolic Heart failure chronicity: acute on chronic Qualified Code(s): I50.43 - Acute on chronic combined systolic (congestive) and diastolic (congestive) heart failure (3) ESRD (end stage renal disease) Current Visit: Yes Status: Chronic Assessment and plan: Patient is dialyzed on Mondays, Wednesdays and Fridays. Has been more or less inconsistent with his dialysis as his been traveling a lot to [place] to visit his brother. Continue dialysis Nephrology consultation (4) Bilateral leg ulcer Current Visit: No Status: Acute Assessment and plan: Patient has multiple wounds in his lower extremities. He has seen wound care for these in the past but has recently not been seeing wound care. Wounds are in various stages of healing, no purulent discharge however. Patient is a diabetic. During his last admission patient received vancomycin as prophylactic coverage for possible infection. Start vancomycin Wound care consult in the morning Qualifiers: Non-pressure ulcer stage: unspecified non-pressure ulcer stage Qualified Code(s): L97.919 - Non-pressure chronic ulcer of unspecified part of right lower leg with unspecified severity; L97.929 - Non-pressure chronic ulcer of unspecified part of left lower leg with unspecified severity (5) Elevated troponin Current Visit: No Status: Acute Assessment and plan: Patient has chronically elevated troponin. Today's troponin is lower than his previous admissions. Patient denies chest pain. Troponin likely elevated in relation to his end-stage renal disease. We will check an additional troponin Cardiac monitoring (6) Hyperkalemia Current Visit: No Status: Acute Assessment and plan: Patient's potassium is 5.0. Is in end-stage renal disease patient on dialysis. Repeat labs in the morning (7) Diabetes Current Visit: No Status: Chronic Assessment and plan: Patient is an insulin dependent diabetic Monitor sugars ACHS Diabetic/cardiac diet Low dose insulin sliding scale as needed Hold home meds. 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 insulin use: without intermediate school teacher use Diabetes mellitus complication status: with kidney complications Diabetes mellitus complication detail: with chronic kidney disease Chronic kidney disease stage: on chronic dialysis Qualified Code(s): E11.22 - Type 2 diabetes mellitus with diabetic chronic kidney disease; N18.6 - End stage renal disease; Z99.2 - Dependence on renal dialysis (8) DVT prophylaxis Current Visit: No Status: Acute Assessment and plan: Subcutaneous heparin - Time Spent With Patient Total time spent is greater than 50% in coordination of care (as documented) at patient's floor/unit and/or counseling patient: Greater than 35 minutes
[2018-09-27] MEDS ORDERED: Dextrose Gel 15 GM/37.5 ML TUBE PO PRN ×2 (01:18)
[2018-09-27] MEDS ORDERED: *HR* Dextrose 50 % in Water (Syg) 50 ML SYRINGE IVP PRN (01:18)
[2018-09-27] MEDS ORDERED: D5% in Water 1,000 ML IVC PRN (01:18)
[2018-09-27] MEDS: traMADol 50 MG TABLET PO PRN ×2 (04:33→17:38)
[2018-09-27] MEDS: *HR* Heparin 5,000 UNIT/ML VIAL SQ SCH ×2 (04:37→17:38)
[2018-09-27 05:04] LABS: Hematocrit 29.8 % (37.5-50.1); Hemoglobin 10.1 g/dL (12.9-16.9); Mean Corpuscular HGB Conc 33.9 g/dL (31.6-35.5); Mean Corpuscular Hemoglobin 29.7 pg (28.0-33.3); Mean Corpuscular Volume 87.6 fL (83.0-100.0); Mean Platelet Volume 8.9 fL (9.4-12.4); Platelet Count 304 K/mcL (140-400); Red Cell Distribution Width 13.2 % (11.5-14.5)
[2018-09-27 05:24] LABS: Albumin 2.9 g/dL (3.5-5.7); Albumin/Globulin Ratio 0.9 (1.1-2.2); Bilirubin,Total 0.3 mg/dL (0.3-1.0); Globulin 3.2 g/dL (2.4-3.5); Phosphorous 4.6 mg/dL (2.7-4.5); Potassium 5.1 mEq/L (3.5-5.1); Total Protein 6.1 g/dL (6.4-8.9)
[2018-09-27 05:45] LABS: Troponin I 0.05 ng/mL (< 0.04)
[2018-09-27] MEDS ORDERED: 0.9 % Sodium Chloride 250 ML IVC PRN (08:20)
[2018-09-27] MEDS ORDERED: Ondansetron ODT 4 MG TAB.RAPDIS SL PRN (08:27)
[2018-09-27] MEDS ORDERED: Nitroglycerin 0.4 MG TAB.SUBL SL PRN (08:27)
[2018-09-27] MEDS ORDERED: *HR* Labetalol 20 MG/4 ML SYRINGE IVP PRN (08:29)
[2018-09-27] MEDS ORDERED: 0.9 % Sodium Chloride 1,000 ML PRIME SCH (08:30)
[2018-09-27] MEDS: Insulin LISPRO 300 UNITS/3 ML VIAL SQ SCH ×4 (08:40→22:06)
[2018-09-27] MEDS: Aspirin Enteric Coated 81 MG Tablet PO SCH (08:56)
[2018-09-27] MEDS: Isosorbide MONOnitrate (24 HR) 30 MG TAB.ER.24H PO SCH (08:56)
[2018-09-27] MEDS: Metoprolol XL (24 HR) Succ 25 MG TAB.ER.24H PO SCH (08:56)
[2018-09-27] MEDS ORDERED: [UNRECOGNIZED DRUG - OTHER] TP SCH (09:00)
[2018-09-27] MEDS ORDERED: [UNRECOGNIZED DRUG - OTHER] TP SCH (09:00)
[2018-09-27] MEDS ORDERED: 0.9 % Sodium Chloride 1,000 ML ONE (13:29)
[2018-09-27] MEDS: Sucralfate 1 GM TABLET PO SCH ×2 (14:00→17:38)
[2018-09-27] MEDS: Ranolazine 500 MG TAB.ER.12H PO SCH ×2 (14:03→22:05)
--- NOTE | 2018-09-27 15:28 | Event Note ---
Date of Encounter: 09/27/18 Time of Encounter: 11:15 Patient seen in dialysis. States that his breathing is much better now. Continue volume management with hemodialysis. Continue to monitor vital signs. 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 No indication for antibiotics at this time. Will stop vancomycin. Nephrology following for dialysis needs.
--- NOTE | 2018-09-27 17:30 | Electrocardiograph Report ---
[place] [id number] Test Date: 2018-09-26 Pat Name: Abelardo Hernandez Department: EXAM12 Room: 2A35 Gender: M Certified Nuclear Medicine Technologist: : 1965 Requested By: Alex Paiz Order Number: [id number] Reading MD: Bhavya Shah Measurements Intervals [place] Rate: 87 P: -14 MO: 147 QRS: 52 QRSD: 98 T: 101 QT: 380 QTc: 458 Interpretive Statements Sinus rhythm Abnormal inferior Q waves Nonspecific T abnormalities, lateral leads Electronically Signed On 09-27-2018 17:28:53 EDT by Bhavya Shah
--- NOTE | 2018-09-27 22:03 | Nephrology Consult Note ---
Date of Encounter: 09/27/18 Time of Encounter: 21:58 Assessment and Plan (1) ESRD (end stage renal disease) Current Visit: Yes Status: Chronic HD MWF. Renal vitamins. Renal dose medications. Renal diet. Additional dialysis and ultrafiltration as needed. Patient was seen on dialysis. (2) Congestive heart failure Current Visit: Yes Status: Acute Patient presents with recurrent symptoms of dyspnea. He has been inconsistent with dialysis in the past, but recently has been more consistent with dialysis. He has 3 vessel coronary disease according to a cath July 2018. Patient needs CT evaluation if not already done. Recommend a second opinion for management of his CAD as his recurrent symptoms may be an anginal equivalent. Qualifiers: Heart failure type: combined systolic and diastolic Heart failure chronicity: acute on chronic Qualified Code(s): I50.43 - Acute on chronic combined systolic (congestive) and diastolic (congestive) heart failure (3) Abnormal chest xray Current Visit: No Status: Acute (4) Elevated troponin Current Visit: No Status: Acute (5) Anemia in chronic kidney disease Current Visit: No Status: Chronic Transfuse as needed. Qualifiers: Chronic kidney disease stage: on chronic dialysis Qualified Code(s): N18.6 - End stage renal disease; D63.1 - Anemia in chronic kidney disease; Z99.2 - Dependence on renal dialysis (6) CAD (coronary artery disease) Current Visit: No Status: Chronic Qualifiers: Coronary Disease-Associated Artery/Lesion type: [place] artery [place] vs. transplanted heart: [place] heart Associated angina: without angina Qualified Code(s): I25.10 - Atherosclerotic heart disease of [place] coronary artery without angina pectoris (7) Hypertension Current Visit: No Status: Chronic Qualifiers: Hypertension type: essential hypertension Qualified Code(s): I10 - Essential (primary) hypertension (8) Obesity (BMI 30.0-34.9) Current Visit: No Status: Chronic (9) Calciphylaxis Current Visit: No Status: Chronic sodium thiosulfate History of Present Illness - Reason for Consult Consult date: 09/27/18 end stage renal disease - Chief Complaint ESRD - History of Present Illness Mr. Hernandez is a 53 yo man with a history of ESRD who receives dialysis TRS at [facility] in [place]. He presents for the evaluation of dyspnea. Patient has been admitted multiple times over the last few months for similar episodes. Past Med Surg Social Fam HX - Past Medical History Medical history: atrial fibrillation, CHF, coronary artery disease, diabetes, dialysis, hypertension, renal disease, TIA, venous stasis Additional medical history: Gastric ulcers. Type II Diabetic Psychiatric history: no psych history - Past Surgical History Surgical History: cholecystectomy, vascular surgery, other Additional surgical history: esophageal bypass, prostate surgery - Social History Smoking Status: Never smoker Smokeless Tobacco Status: No Alcohol use: none Drug use: none - Family History Mother Adopted: No Living Status: Hx Family Cardiac Disorders: Yes (mother stroke) Hx Family Respiratory Disorders: Yes (Dad asthma copd) Hx Family Cancer: Yes (prostate, pancreatic) Hx Family GI Disorders: No Hx Family Endocrine Disorder: Yes (DM) Hx Family Neuromuscular Disorders: No Hx Family Neurologic Disorders: No Hx Family HEENT Disorders: No Hx Family Autoimmune Disorders: No Father Adopted: No Living Status: Age at : 66 Cause of : infection/prostate cancer Hx Family Cardiac Disorders: Yes (father, stents) Hx Family Respiratory Disorders: Yes (father COPD) Hx Family Cancer: Yes (Father prostate cancer uncle colon) Hx Family GI Disorders: No Hx Family Genitourinary Disorders: No Hx Family Endocrine Disorder: Yes (dM) Hx Family Musculoskeletal Disorders: No Hx Family Neuromuscular Disorders: No Hx Family Neurologic Disorders: No Hx Family HEENT Disorders: No Hx Family Autoimmune Disorders: No Hx Family Reproductive Disorders: No Hx Family Psychosocial Disorders: No Hx Family Medical Disorders: No Medications and Allergies Aspirin [Lo-Dose Aspirin EC] 81 mg PO DAILY 07/30/17 [History] Ergocalciferol (VITAMIN D2) [Vitamin D2] 2 cap PO WE 09/24/17 [History] Insulin ASPART [NovoLOG] 0 unit SQ TIDWM 09/24/17 [History] Clopidogrel [Plavix] 75 mg PO DAILY #30 tablet 10/29/17 [Rx] Insulin Glargine,Hum.rec.anlog [Basaglar Kwikpen U-100] 30 unit SQ HS 02/01/18 [History] Tramadol HCl [Ultram] 50 mg PO Q6H PRN 04/15/18 [History] rOPINIRole [Requip] 0.25 mg PO HS 06/18/18 [History] Atorvastatin [Lipitor] 40 mg PO HS 07/26/18 [History] Calcium Carbonate [Calcium] 600 mg PO DAILY 07/26/18 [History] Metoprolol Succinate [Toprol Xl] 25 mg PO DAILY 07/26/18 [History] Nitroglycerin [Nitrostat] 0.4 mg SL Q5MIN PRN 07/26/18 [History] Ondansetron ODT [Zofran ODT] 4 mg SL Q6HR PRN 07/26/18 [History] Pantoprazole Sodium [Protonix] 40 mg PO BID 07/26/18 [History] Sucralfate [Carafate] 1 gm PO TIDAC 08/04/18 [History] Isosorbide MONOnitrate (24 HR) [Imdur] 90 mg PO DAILY #90 tab.er.24h 08/19/18 [Rx] Alginate Dressing/Cme-Cell [Maxorb 4"X4" Dressing] 1 each TP DAILY #30 bandage 09/21/18 [Rx] Benzethonium Chloride [Dermal Wound Cleanser] 236 ml TP DAILY #3 cleanser 09/21/18 [Rx] Ranolazine [Ranexa] 1,000 mg PO Q12H 09/21/18 [History] Allergy/AdvReac Type Severity Reaction Status Date / Time No Known Allergies Allergy Verified 07/26/18 09:54 Review of Systems All Systems: reviewed and no additional remarkable complaints except as stated (as documented in the HPI.) Exam - Vital Signs Vital signs: Initial Vital Signs Temp Pulse Resp BP Pulse Ox 98.0 F 88 18 192/85 99 09/26/18 18:23 09/26/18 18:23 09/26/18 18:23 09/26/18 18:23 09/26/18 18:23 Vital Signs - Last 8 Hours Temp Pulse Resp BP Pulse Ox 09/27/18 21:15 97 09/27/18 19:19 98.5 F 81 17 112/63 97 Intake and Output 09/27/18 09/27/18 09/27/18 07:59 15:59 23:59 Intake Total 250 / 850 600 / 850 Output Total 550 / 3632 3082 / 3632 Balance -300 / -2782 -2482 / -2782 Intake: IV Fluids 250 / 250 Vancocin 1,500 MG In 0.9 % 250 / 250 Sodium Chloride 250 ML @ 166. 667 mls/hr IVPB ONCE ONE Rx#: [id number] Oral 0 / 0 Intake, Rinseback and Flushes 600 / 600 Output: Urine 450 / 450 Total Dialysis (HD) Output 3082 / 3082 Straight Cath 100 / 100 Other: Blood Glucose* 118 222 Hemodialysis Net Fluid Removed 2482 (mL) - General Appearance General appearance: well-developed, well-nourished EENT: ATNC Neck: supple Respiratory: course breath sounds Cardiology: edema, regular rate Gastrointestinal: no tenderness Integumentary: warm and dry Neurologic: alert and oriented x3 Musculoskeletal: no cyanosis Psychiatric: mood/affect appropriate Results - Lab Results 09/27/18 04:23 09/27/18 04:23 Consult Discharge Plan - Plan Referrals: NONE,PCP [Primary Care Provider] -
[2018-09-27] MEDS: rOPINIRole 0.25 MG TABLET PO SCH (22:05)
[2018-09-27 23:21] LABS: Albumin 2.9 g/dL (3.5-5.7); Calcium 7.6 mg/dL (8.6-10.3); Phosphorous 5.5 mg/dL (2.7-4.5)
[2018-09-28] MEDS: *HR* Heparin 5,000 UNIT/ML VIAL SQ SCH ×2 (04:10→17:26)
[2018-09-28] MEDS: traMADol 50 MG TABLET PO PRN ×2 (04:10→21:38)
[2018-09-28 07:07] LABS: Basophils % 0.5 %; Eosinophils # 0.2 K/mcL (0.0-0.6); Eosinophils % 3.1 %; Hematocrit 28.6 % (37.5-50.1); Hemoglobin 9.4 g/dL (12.9-16.9); Immature Granulocytes % 0.3 % (0-4); Lymphocytes # 1.4 K/mcL (0.6-4.6); Lymphocytes % 22.6 %; Mean Corpuscular HGB Conc 32.9 g/dL (31.6-35.5); Mean Corpuscular Hemoglobin 29.7 pg (28.0-33.3); Mean Corpuscular Volume 90.5 fL (83.0-100.0); Mean Platelet Volume 8.7 fL (9.4-12.4); Monocytes # 0.7 K/mcL (0.0-1.3); Monocytes % 10.6 %; Neutrophils # 3.9 K/mcL (1.6-8.9); Platelet Count 273 K/mcL (140-400); Red Blood Count 3.16 M/mcL (4.19-5.50); Red Cell Distribution Width 13.3 % (11.5-14.5); Segmented Neutrophils % 62.9 %; White Blood Count 6.1 K/mcL (4.3-11.1)
[2018-09-28 07:18] LABS: Calcium 7.6 mg/dL (8.6-10.3); Potassium 6.1 mEq/L (3.5-5.1)
[2018-09-28] MEDS: Metoprolol XL (24 HR) Succ 25 MG TAB.ER.24H PO SCH (09:06)
[2018-09-28] MEDS: Isosorbide MONOnitrate (24 HR) 30 MG TAB.ER.24H PO SCH (09:06)
[2018-09-28] MEDS: Ranolazine 500 MG TAB.ER.12H PO SCH ×2 (09:06→21:39)
[2018-09-28] MEDS: Aspirin Enteric Coated 81 MG Tablet PO SCH (09:06)
[2018-09-28] MEDS: Insulin LISPRO 300 UNITS/3 ML VIAL SQ SCH ×4 (09:07→21:36)
[2018-09-28] MEDS: Sucralfate 1 GM TABLET PO SCH ×3 (09:07→17:26)
[2018-09-28 11:01] LABS: Albumin 2.9 g/dL (3.5-5.7); Phosphorous 6.7 mg/dL (2.7-4.5)
--- NOTE | 2018-09-28 11:37 | Nephrology Progress Note ---
Date of Encounter: 09/28/18 Time of Encounter: 11:35 - Assessment and Plan (1) ESRD (end stage renal disease) Current Visit: Yes Status: Chronic HD MWF. Renal vitamins. Renal dose medications. Renal diet. Additional dialysis and ultrafiltration as needed. (2) Congestive heart failure Current Visit: Yes Status: Acute Qualifiers: Heart failure type: combined systolic and diastolic Heart failure chron icity: acute on chronic Qualified Code(s): I50.43 - Acute on chronic combined systolic (congestive) and diastolic (congestive) heart failure (3) Abnormal chest xray Current Visit: No Status: Acute (4) Elevated troponin Current Visit: No Status: Acute (5) Anemia in chronic kidney disease Current Visit: No Status: Chronic Qualifiers: Chronic kidney disease stage: on chronic dialysis Qualified Code(s): N18.6 - End stage renal disease; D63.1 - Anemia in chronic kidney disease; Z99.2 - Dependence on renal dialysis (6) CAD (coronary artery disease) Current Visit: Yes Status: Chronic Qualifiers: Coronary Disease-Associated Artery/Lesion type: [place] artery [place] vs. 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 He has no new complaint today. Objective - Vital Signs Vital signs: Vital Signs Temp Pulse Resp BP Pulse Ox 09/28/18 11:12 98.1 F 70 17 161/90 96 09/28/18 07:28 97.9 F 70 17 133/70 100 09/28/18 04:20 97.8 F 71 17 146/76 97 09/28/18 00:47 98.0 F 70 17 121/66 95 09/27/18 21:15 97 09/27/18 19:19 98.5 F 81 17 112/63 97 09/27/18 13:02 97.7 F 18 142/88 09/27/18 12:45 108/65 09/27/18 12:30 124/94 09/27/18 12:15 130/94 09/27/18 12:00 124/53 09/27/18 11:45 128/57 Intake and Output 09/27/18 09/28/18 09/28/18 23:59 07:59 15:59 Intake Total 120 / 240 120 / 240 Output Total 0 / 300 300 / 300 Balance 120 / -60 -180 / -60 Intake: Oral 120 / 240 120 / 240 Output: Urine 0 / 300 300 / 300 Other: Meal Breakfast Percent of Meal Consumed 50% Weight 98 kg Blood Glucose* 222 131 158 Patient Weight 09/28/18 23:59 Weight 98 kg - General Appearance General appearance: Present: well-developed, well-nourished EENT: Present: ATNC Neck: Present: supple Cardiology: Present: regular rate Integumentary: Present: warm and dry Neurologic: Present: alert and oriented x3 Psychiatric: Present: mood/affect appropriate - Lab 09/28/18 06:37 09/28/18 13:32 Most recent lab results 09/28/18 06:37 Calcium 7.6 L Phosphorus 6.7 H Consult Discharge Plan - Plan Referrals: NONE,PCP [Primary Care Provider] -
--- NOTE | 2018-09-28 14:16 | Internal Med Progress Note ---
Hospitalist Progress Note - Encounter Date of Encounter: 09/28/18 Time of Encounter: 14:12 - Subjective Interval History: Evaluated patient earlier today. Feels better with regards to his breathing today. Denies any chest pain at this time. Concerned about his recurrent episodes of dyspnea and intermittent chest pain - Exam Vitals: Temp Pulse Resp BP Pulse Ox 98.1 F 70 17 161/90 96 09/28/18 11:12 09/28/18 11:12 09/28/18 11:12 09/28/18 11:12 09/28/18 11:12 Exam: General: Patient is alert, no acute distress, oriented x 3 ENT: Mucous membranes moist Respiratory: Diminished breath sounds at both bases Cardiovascular: Regular rate and rhythm. s1 and s2 normal No clicks, rubs, gallops, or murmurs. No pedal edema Abdomen: Abdomen is soft, nontender. Bowel sounds are present Musculoskeletal: Spontaneously moving all extremities Skin: warm, dry, intact. Neuro: Alert oriented x 3 normal cranial nerves, no focal deficits - Assessment and Plan (1) Congestive heart failure Current Visit: Yes Status: Acute (2) Diabetes Current Visit: Yes Status: Chronic (3) DVT prophylaxis Current Visit: No Status: Acute (4) Hyperkalemia Current Visit: No Status: Acute (5) ESRD (end stage renal disease) Current Visit: Yes Status: Chronic (6) Bilateral leg ulcer Current Visit: No Status: Acute (7) Elevated troponin Current Visit: No Status: Acute (8) Dyspnea Current Visit: No Status: Acute (9) CAD (coronary artery disease) Current Visit: Yes Status: Chronic DVT Prophylaxis: On sq heparin - Summary of Assessment and Plan Summary of Assessment and Plan: Acute on chronic combined congestive heart failure: Responded well with Lasix and dialysis. Does have underlying cardiomyopathy. Nephrology following. Continue home medications. End-stage renal disease on hemodialysis: Dialyzed yesterday. Hyperkalemic this morning but repeat check shows improving production. Coronary artery disease: Patient had triple-vessel coronary artery disease per left heart catheterization done in May 2018. Nephrology recommends cardiothoracic surgeon consultation due to recurrent episodes of dyspnea and chest pain. Consulted cardiothoracic surgery for their opinion. Mild troponin elevation. Adynamic. Continue aspirin, Plavix and statin. Continue Ranexa and Imdur for chest pain. Diabetes mellitus type 2: Continue current insulin regimen. Diabetic diet. Essential hypertension: Blood pressure remains elevated. Patient currently on metoprolol and Imdur. Given his hyperkalemia, will hold off on ADE inhibitor or ARB. Will switch metoprolol to carvedilol to control blood pressure better. - Time Spent with Patient Total time spent is greater than 50% in coordination of care (as documented) at patient's floor/unit and/or counseling patient: Internal Medicine: Result - Labs CBC & Chem 7: 09/28/18 06:37 09/28/18 13:32 Labs: Short CBC 09/28/18 Range/Units 06:37 WBC 6.1 (4.3-11.1) K/mcL Hgb 9.4 L (12.9-16.9) g/dL Hct 28.6 L (37.5-50.1) % Plt Count 273 (140-400) K/mcL Neutrophils # 3.9 (1.6-8.9) K/mcL BMP 09/27/18 09/28/18 09/28/18 22:42 06:37 13:32 Sodium 133 L 134 L Potassium 5.0 6.1 H 5.6 H Chloride 98 98 Carbon Dioxide 29 25 BUN 55 H 59 H Creatinine 6.25 H 6.74 H Glucose 199 H 139 H Calcium 7.6 L 7.6 L Liver Function 09/27/18 09/28/18 Range/Units 22:42 06:37 Albumin 2.9 L 2.9 L (3.5-5.7) g/dL - ABG Interpretation ABG results: PT/INR, D-dimer PT 11.8 Seconds (9.4-12.1) 09/26/18 19:03 Consult Discharge Plan - Plan Referrals: NONE,PCP [Primary Care Provider] - (1) Congestive heart failure Qualifiers: Heart failure type: combined systolic and diastolic Heart failure chronicity: acute on chronic Qualified Code(s): I50.43 - Acute on chronic combined systolic (congestive) and diastolic (congestive) heart failure (2) Diabetes Qualifiers: Diabetes mellitus type: type 2 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 Diabetes mellitus complication status: with kidney complications Diabetes mellitus complication detail: with chronic kidney disease Chronic kidney disease stage: on chronic dialysis Qualified Code(s): E11.22 - Type 2 diabetes mellitus with diabetic chronic kidney disease; N18.6 - End stage renal disease; Z99.2 - Dependence on renal dialysis (6) Bilateral leg ulcer Qualifiers: Non-pressure ulcer stage: unspecified non-pressure ulcer stage Qualified Code(s): L97.919 - Non-pressure chronic ulcer of unspecified part of right lower leg with unspecified severity; L97.929 - Non-pressure chronic ulcer of unspecified part of left lower leg with unspecified severity (8) Dyspnea Qualifiers: Dyspnea type: unspecified Qualified Code(s): R06.00 - Dyspnea, unspecified (9) CAD (coronary artery disease) Qualifiers: Coronary Disease-Associated Artery/Lesion type: [place] artery [place] vs. transplanted heart: [place] heart Associated angina: without angina Qualified Code(s): I25.10 - Atherosclerotic heart disease of [place] coronary artery without angina pectoris
--- NOTE | 2018-09-28 15:13 | Cardiothoracic Consult Note ---
Date of Encounter: 09/28/18 Time of Encounter: 15:10 Assessment and Plan (1) ESRD (end stage renal disease) Current Visit: No Status: Chronic The assessment and plan as outlined above was discussed with the patient and/or family members who expressed understanding and agreement. All questions were answered. The patient complains mainly of recurrent shortness of breath and pain in his right chest were the thoracentesis was performed. I am unsure whether or not he has been having angina. Cardiology did not consult us in May as they felt the arteries were not bypassable. I agree. The distal third of the LAD and diagonal are small and diffusely diseased and they do not look graftable. The posterior descending branch of the right coronary artery is diffusely diseased and does not look graftable. The circumflex stents are patent, but the marginal branch is diffusely diseased. It may or may not be graftable, but the circumflex is not critically blocked. I feel that continued medical management is the best treatment for his heart disease. I will ask Dr. Koch to see the patient for possible treatment of his recurrent right effusion that has been tapped twice in the last month. - History of Present Illness History of present illness: Mr. Hernandez is a 53 year old male The patient is a 53-year-old gentleman who presented with worsening shortness of breath. He has had 2 thoracenteses in the last several weeks according to the patient. He states that he does have chest pain in his right chest posteriorly where he is been tapped. He does not seem to have angina. He underwent cardiac catheterization in May of this year. This revealed an ejection fraction of 45%. His LAD was 80%. Both the LAD and diagonal were small and diffusely diseased in the distal one third and did not look graftable. His circumflex coronary artery had a patent stent. The marginal branch was diffusely diseased and may or may not be graftable. The right coronary artery was 95% distal and there was a 95% block in the posterior descending branch. The posterior descending branch was diffusely diseased and not graftable. Echocardiogram revealed an ejection fraction of 45% with no significant valvular disease. The patient is an insulin-dependent diabetic. He has a history of atrial fibrill ation, congestive heart failure, hypertension and TIA. He also has venous stasis. He is status post cholecystectomy and vascular surgery. He states that he has thrush in his esophagus. He presently is on Plavix. Social history. He lives in [place] with his aunt. Does not smoke and does not drink. Past Med Surg Social Fam HX - Past Medical History Medical history: atrial fibrillation, CHF, coronary artery disease, diabetes, dialysis, hypertension, renal disease, TIA, venous stasis Additional medical history: Gastric ulcers. Type II Diabetic Psychiatric history: no psych history - Past Surgical History Surgical History: cholecystectomy, vascular surgery, other Additional surgical history: esophageal bypass, prostate surgery - Social History Smoking Status: Never smoker Smokeless Tobacco Status: No Alcohol use: none Drug use: none - Family History Mother Adopted: No Living Status: Hx Family Cardiac Disorders: Yes (mother stroke) Hx Family Respiratory Disorders: Yes (Dad asthma copd) Hx Family Cancer: Yes (prostate, pancreatic) Hx Family GI Disorders: No Hx Family Endocrine Disorder: Yes (DM) Hx Family Neuromuscular Disorders: No Hx Family Neurologic Disorders: No Hx Family HEENT Disorders: No Hx Family Autoimmune Disorders: No Father Adopted: No Living Status: Age at : 66 Cause of : infection/prostate cancer Hx Family Cardiac Disorders: Yes (father, stents) Hx Family Respiratory Disorders: Yes (father COPD) Hx Family Cancer: Yes (Father prostate cancer uncle colon) Hx Family GI Disorders: No Hx Family Genitourinary Disorders: No Hx Family Endocrine Disorder: Yes (dM) Hx Family Musculoskeletal Disorders: No Hx Family Neuromuscular Disorders: No Hx Family Neurologic Disorders: No Hx Family HEENT Disorders: No Hx Family Autoimmune Disorders: No Hx Family Reproductive Disorders: No Hx Family Psychosocial Disorders: No Hx Family Medical Disorders: No Medications and Allergies Aspirin [Lo-Dose Aspirin EC] 81 mg PO DAILY 07/30/17 [History] Ergocalciferol (VITAMIN D2) [Vitamin D2] 100,000 unit PO WE 09/24/17 [History] Clopidogrel [Plavix] 75 mg PO DAILY #30 tablet 10/29/17 [Rx] Insulin Glargine,Hum.rec.anlog [Basaglar Kwikpen U-100] 30 unit SQ HS 02/01/18 [History] Tramadol HCl [Ultram] 50 mg PO Q6H PRN 04/15/18 [History] rOPINIRole [Requip] 0.25 mg PO HS 06/18/18 [History] Atorvastatin [Lipitor] 40 mg PO HS 07/26/18 [History] Calcium Carbonate [Calcium] 600 mg PO DAILY 07/26/18 [History] Metoprolol Succinate [Toprol Xl] 25 mg PO QAM 07/26/18 [History] Nitroglycerin [Nitrostat] 0.4 mg SL Q5MIN PRN 07/26/18 [History] Pantoprazole Sodium [Protonix] 40 mg PO DAILY 07/26/18 [History] Sucralfate [Carafate] 1 gm PO BID 08/04/18 [History] Alginate Dressing/Cme-Cell [Maxorb 4"X4" Dressing] 1 each TP DAILY #30 bandage 09/21/18 [Rx] Benzethonium Chloride [Dermal Wound Cleanser] 236 ml TP DAILY #3 cleanser 09/21/18 [Rx] Ranolazine [Ranexa] 500 mg PO DAILY 09/21/18 [History] Insulin ASPART [Novolog Flexpen] 0 unit SQ TIDWM 09/27/18 [History] Isosorbide MONOnitrate [Isosorbide Mononitrate ER] 30 mg PO DAILY 09/27/18 [History] Metoprolol Succinate [Toprol Xl] 25 mg PO HS PRN 09/27/18 [History] Ondansetron HCl 8 mg PO TID PRN 09/27/18 [History] Allergy/AdvReac Type Severity Reaction Status Date / Time No Known Allergies Allergy Verified 07/26/18 09:54 All Systems Review: The remainder of the systems were reviewed and are negative Physical Examination Vital Signs, Last 4 Hours Temp Pulse Resp BP Pulse Ox 09/28/18 11:12 98.1 F 70 17 161/90 96 The lungs have decreased breath sounds and dullness to percussion in the right base. Heart is in a regular rate and rhythm. Abdomen is benign. No tenderness, rebound or guarding. Results 09/28/18 06:37 09/28/18 13:32 Lab Results, Last 24 hours 09/27/18 09/28/18 09/28/18 22:42 06:37 06:37 WBC 6.1 Hgb 9.4 L Hct 28.6 L Plt Count 273 Sodium 133 L 134 L Potassium 5.0 6.1 H Chloride 98 98 Carbon Dioxide 29 25 BUN 55 H 59 H Creatinine 6.25 H 6.74 H Glucose 199 H 139 H Calcium 7.6 L 7.6 L 09/28/18 13:32 WBC Hgb Hct Plt Count Sodium Potassium 5.6 H Chloride Carbon Dioxide BUN Creatinine Glucose Calcium Consult Discharge Plan - Plan Referrals: NONE,PCP [Primary Care Provider] -
[2018-09-28] MEDS: rOPINIRole 0.25 MG TABLET PO SCH (21:39)
[2018-09-29] MEDS ORDERED: Levalbuterol Neb 1.25 MG/3 ML IH SCH (04:00)
[2018-09-29] MEDS: *HR* Heparin 5,000 UNIT/ML VIAL SQ SCH ×2 (05:51→16:53)
[2018-09-29 06:53] LABS: Calcium 7.6 mg/dL (8.6-10.3); Potassium 5.9 mEq/L (3.5-5.1)
[2018-09-29] MEDS: Sucralfate 1 GM TABLET PO SCH ×3 (07:48→16:53)
[2018-09-29] MEDS: Aspirin Enteric Coated 81 MG Tablet PO SCH (07:48)
[2018-09-29] MEDS: Insulin LISPRO 300 UNITS/3 ML VIAL SQ SCH ×4 (07:48→21:15)
[2018-09-29] MEDS ORDERED: 0.9 % Sodium Chloride 250 ML IVC PRN (08:25)
--- NOTE | 2018-09-29 08:44 | Cardiothoracic Consult Note ---
Date of Encounter: 09/29/18 Time of Encounter: 08:42 Assessment and Plan (1) Acute serous pleuritis Current Visit: Yes Status: Chronic The assessment and plan as outlined above was discussed with the patient and/or family members who expressed understanding and agreement. All questions were answered. I have discussed with the patient received thoracentesis, dialysis, and observation. None of these however would provide a good long-term result and increase function of life that the patient would desire. We also discussed thoracoscopy, pleurectomy and pleurodesis as a good longterm solution to the recurrent pleural effusion and relief of the patient's symptoms return to an active life. Risk of surgery would include bleeding, transfusion, , stroke, heart attack, chest tube management, and approximately 4% recurrence rate. I will write orders for surgery. My partner Dr. Metcalf was initially consult to see the patient for unstable angina. This is not what the patient's primary complaints were. (2) ESRD (end stage renal disease) on dialysis Current Visit: No Status: Chronic The assessment and plan as outlined above was discussed with the patient and/or family members who expressed understanding and agreement. All questions were answered. Patient is currently on scheduled for dialysis today, which would optimize potassium, other electrolytes, and volume. Plan surgery for tomorrow after today's dialysis. (3) Moderate protein-calorie malnutrition Current Visit: No Status: Chronic The assessment and plan as outlined above was discussed with the patient and/or family members who expressed understanding and agreement. All questions were answered. I would anticipate the patient would be able to eat better after we relieve his dyspnea at rest and on exertion. If you cannot breathe normally do not eat. - History of Present Illness Consult date: 09/29/18 Requesting physician: Izzy Wallace Consult reason: pleural effusion Chief complaint: sob History of present illness: Mr. Hernandez is a 53 year old male Mr. Hernandez is a very pleasant 53 years old male presented to [facility] on routine with complaints of increasing shortness of breath and dyspnea on exertion over the last 2 weeks. Unfortunately he has a history of recurrent pleural effusion status post thoracentesis 2. The first thoracentesis was approximately 1 month ago with temporary relief of his dyspnea. He had a recurrence of this effusion about 2-1/2 weeks ago and underwent a 1000 mL thoracentesis with temporary resolution of his dyspnea. Unfortunately, he was told there was nothing that could be done. The patient is slightly depressed since he was told there was nothing that could be done. He said he cannot keep living this way taking care of his horses and his personal life been short of breath every 2 weeks. This chest x-ray now demonstrates recurrent pleural effusion. The effusion is moderate to moderately large in size. 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 Type II Diabetic Psychiatric history: no psych history - Past Surgical History Surgical History: cholecystectomy, vascular surgery, other Additional surgical history: esophageal bypass, prostate surgery (TURP), left arm av shunt, cholelithiasis - Social History Smoking Status: Never smoker Smokeless Tobacco Status: No Alcohol use: none Drug use: none - Family History Mother Adopted: No Living Status: Hx Family Cardiac Disorders: Yes (mother stroke) Hx Family Respiratory Disorders: Yes (Dad asthma copd) Hx Family Cancer: Yes (prostate, pancreatic) Hx Family GI Disorders: No Hx Family Endocrine Disorder: Yes (DM) Hx Family Neuromuscular Disorders: No Hx Family Neurologic Disorders: No Hx Family HEENT Disorders: No Hx Family Autoimmune Disorders: No Father Adopted: No Living Status: Age at : 66 Cause of : infection/prostate cancer Hx Family Cardiac Disorders: Yes (father, stents) Hx Family Respiratory Disorders: Yes (father COPD) Hx Family Cancer: Yes (Father prostate cancer uncle colon) Hx Family GI Disorders: No Hx Family Genitourinary Disorders: No Hx Family Endocrine Disorder: Yes (dM) Hx Family Musculoskeletal Disorders: No Hx Family Neuromuscular Disorders: No Hx Family Neurologic Disorders: No Hx Family HEENT Disorders: No Hx Family Autoimmune Disorders: No Hx Family Reproductive Disorders: No Hx Family Psychosocial Disorders: No Hx Family Medical Disorders: No - Additional Family History Additional family history: stroke, chf, cad, dm, peripheral vascular disease Medications and Allergies Aspirin [Lo-Dose Aspirin EC] 81 mg PO DAILY 07/30/17 [History] Ergocalciferol (VITAMIN D2) [Vitamin D2] 100,000 unit PO WE 09/24/17 [History] Clopidogrel [Plavix] 75 mg PO DAILY #30 tablet 10/29/17 [Rx] Insulin Glargine,Hum.rec.anlog [Basaglar Kwikpen U-100] 30 unit SQ HS 02/01/18 [History] Tramadol HCl [Ultram] 50 mg PO Q6H PRN 04/15/18 [History] rOPINIRole [Requip] 0.25 mg PO HS 06/18/18 [History] Atorvastatin [Lipitor] 40 mg PO HS 07/26/18 [History] Calcium Carbonate [Calcium] 600 mg PO DAILY 07/26/18 [History] Metoprolol Succinate [Toprol Xl] 25 mg PO QAM 07/26/18 [History] Nitroglycerin [Nitrostat] 0.4 mg SL Q5MIN PRN 07/26/18 [History] Pantoprazole Sodium [Protonix] 40 mg PO DAILY 07/26/18 [History] Sucralfate [Carafate] 1 gm PO BID 08/04/18 [History] Alginate Dressing/Cme-Cell [Maxorb 4"X4" Dressing] 1 each TP DAILY #30 bandage 09/21/18 [Rx] Benzethonium Chloride [Dermal Wound Cleanser] 236 ml TP DAILY #3 cleanser 09/21/18 [Rx] Ranolazine [Ranexa] 500 mg PO DAILY 09/21/18 [History] Insulin ASPART [Novolog Flexpen] 0 unit SQ TIDWM 09/27/18 [History] Isosorbide MONOnitrate [Isosorbide Mononitrate ER] 30 mg PO DAILY 09/27/18 [History] Metoprolol Succinate [Toprol Xl] 25 mg PO HS PRN 09/27/18 [History] Ondansetron HCl 8 mg PO TID PRN 09/27/18 [History] Allergy/AdvReac Type Severity Reaction Status Date / Time No Known Allergies Allergy Verified 07/26/18 09:54 All Systems Review: The remainder of the systems were reviewed and are negative - Constitutional Constitutional: anorexia, fatigue, lethargy - EENT Eyes: blurred vision, other (his blurred vision is chronic. nothing new with his vision ) - Cardiovascular Cardiovascular: dyspnea at rest, dyspnea on exertion, irregular heart rhythm - Vascular Vascular: other (venous stasis ) - Respiratory Respiratory: cough, chest wall pain - Integumentary Integumentary: other (chronic venous ulcers on calves) - Neurological Neurological: dizziness, other (dizziness occurs after dialysis ) - Psychiatric Psychiatric: anxiety - Hematological/Lymphatic Hematologic/Lymphatic: blood thinners Physical Examination Vital Signs, Last 4 Hours Temp Pulse Resp BP Pulse Ox 09/29/18 07:16 98.4 F 76 17 164/76 97 General: Conversant, No Apparent Distress, Well developed HEENT: Atraumatic, Normocephaly, Trachea midline Neck: No JVD Cardiac: Other (irregular irregular rate controlled) Lungs: Other (cta on the left. absent 1/3 up the right chest wall ) Neuro: Alert and responsive, Motor nerves intact, Other (vision is very cloudy ) Vascular: Pulse deficit Abdomen: Soft, Non-tender Skin: Other (healing ulcers on calves ) Extremities: No Clubbing, No Edema Results 09/28/18 06:37 09/29/18 06:08 Lab Results, Last 24 hours 09/28/18 09/28/18 09/29/18 06:37 13:32 06:08 Sodium 134 L 133 L Potassium 6.1 H 5.6 H 5.9 H Chloride 98 97 L Carbon Dioxide 25 25 BUN 59 H 75 H Creatinine 6.74 H 8.86 H Glucose 139 H 172 H Calcium 7.6 L 7.6 L - Imaging Chest Xray: image reviewed Cardiac cath: image reviewed Consult Discharge Plan - Plan Referrals: NONE,PCP [Primary Care Provider] -
--- NOTE | 2018-09-29 09:06 | Internal Med Progress Note ---
Hospitalist Progress Note - Encounter Date of Encounter: 09/29/18 Time of Encounter: 08:54 - Subjective Interval History: Patient is doing okay, on room air. His shortness of breast improved. He still have right-sided chest pain when he takes deep breaths or cough. Patient is is going have dialysis today. He is going have surgery tomorrow for his recurrent right-sided pleural effusion - Exam Vitals: Temp Pulse Resp BP Pulse Ox 98.4 F 76 17 164/76 97 09/29/18 07:16 09/29/18 07:16 09/29/18 07:16 09/29/18 07:16 09/29/18 07:16 Exam: General: Patient is alert, no acute distress, oriented x 3 ENT: Mucous membranes moist Respiratory: Diminished breath sounds at both bases, scant crackles Cardiovascular: Regular rate and rhythm. s1 and s2 normal No clicks, rubs, gallops, or murmurs. No pedal edema Abdomen: Abdomen is soft, nontender. Bowel sounds are present Musculoskeletal: Spontaneously moving all extremities Skin: warm, dry, intact. Neuro: Alert oriented x 3 normal cranial nerves, no focal deficits DVT Prophylaxis: On sq heparin - Summary of Assessment and Plan Summary of Assessment and Plan: Mr. Hernandez is a 53 year old male Patient presented to the emergency room with increased shortness of breath. He has recently been in the hospital, and discharged on September 21. He has been inconsistent with his dialysis sessions, he has end-stage renal disease with multiple admissions for shortness of breath and fluid overload. He has required thoracentesis in the past. His brother who lives in another state was recently injured, and the patient has been traveling back and forth to help him. He has missed some dialysis sessions, but states over the last week he was compliant. However, after his dialysis sessions, he says that he gets very weak and he has continued shortness of breath. He returned to the emergency room for evaluation. patient waas admitted on 09/27 for SOB and right sided chest pain (1) Acute on chronic combined systolic and diastolic CHF, TTE showed EF 55% in 08/2018, improved with HD and lasix Current Visit: Yes Status: Acute (2) Recurrent right pleural effusion,and acute pleuritis, CTS was conuslted, planning for thoracoscopy, pleurectomy and pleurodesis tomorrow Current Visit: Yes Status: Chronic (3) ESRD on HD MWF , nephrology is on board Current Visit: No Status: Acute (4) Hyperkalemia, will have HD today Current Visit: No Status: Acute (5) CAD s/p CABG Coronary artery disease: Patient had triple-vessel coronary artery disease per left heart catheterization done in May 2018. Nephrology recommends cardiothoracic surgeon consultation due to recurrent episodes of dyspnea and chest pain. CTS was conuslted, recommended medical management Mild troponin elevation. Adynamic. Continue aspirin, Plavix and statin. Continue Ranexa and Imdur for chest pain. Current Visit: Yes Status: Chronic (6) Bilateral leg ulcer, chronic Current Visit: No Status: Acute (7) Elevated troponin, adynamic Current Visit: No Status: Acute (8) Dyspnea Current Visit: No Status: Acute (9) DM type 2, conitnue insulin regimen (10) Hypertension, will increase coreg Current Visit: Yes Status: Chronic Disposition: pending procedure - Time Spent with Patient Total time spent is greater than 50% in coordination of care (as documented) at patient's floor/unit and/or counseling patient: Plan of Care Discussed with: patient Internal Medicine: Result - Labs CBC & Chem 7: 09/28/18 06:37 09/29/18 06:08 Labs: BMP 09/28/18 09/28/18 09/29/18 06:37 13:32 06:08 Sodium 134 L 133 L Potassium 6.1 H 5.6 H 5.9 H Chloride 98 97 L Carbon Dioxide 25 25 BUN 59 H 75 H Creatinine 6.74 H 8.86 H Glucose 139 H 172 H Calcium 7.6 L 7.6 L Liver Function 09/28/18 Range/Units 06:37 Albumin 2.9 L (3.5-5.7) g/dL - ABG Interpretation ABG results: PT/INR, D-dimer PT 11.8 Seconds (9.4-12.1) 09/26/18 19:03 Consult Discharge Plan - Plan Referrals: NONE,PCP [Primary Care Provider] -
[2018-09-29] MEDS ORDERED: Albumin 25% 25gram/100mL 25 GM/100 ML IV.SOLN IVPB ONE (09:39)
[2018-09-29] MEDS: Ranolazine 500 MG TAB.ER.12H PO SCH ×2 (13:09→21:15)
[2018-09-29] MEDS: Isosorbide MONOnitrate (24 HR) 30 MG TAB.ER.24H PO SCH (13:09)
--- NOTE | 2018-09-29 17:36 | Anesthesia Evaluation PreOp ---
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25 mg PO HS 06/18/18 [History] Atorvastatin [Lipitor] 40 mg PO HS 07/26/18 [History] Calcium Carbonate [Calcium] 600 mg PO DAILY 07/26/18 [History] Metoprolol Succinate [Toprol Xl] 25 mg PO QAM 07/26/18 [History] Nitroglycerin [Nitrostat] 0.4 mg SL Q5MIN PRN 07/26/18 [History] Pantoprazole Sodium [Protonix] 40 mg PO DAILY 07/26/18 [History] Sucralfate [Carafate] 1 gm PO BID 08/04/18 [History] Alginate Dressing/Cme-Cell [Maxorb 4"X4" Dressing] 1 each TP DAILY #30 bandage 09/21/18 [Rx] Benzethonium Chloride [Dermal Wound Cleanser] 236 ml TP DAILY #3 cleanser 09/21/18 [Rx] Ranolazine [Ranexa] 500 mg PO DAILY 09/21/18 [History] Insulin ASPART [Novolog Flexpen] 0 unit SQ TIDWM 09/27/18 [History] Isosorbide MONOnitrate [Isosorbide Mononitrate ER] 30 mg PO DAILY 09/27/18 [Hi story] Metoprolol Succinate [Toprol Xl] 25 mg PO HS PRN 09/27/18 [History] Ondansetron HCl 8 mg PO TID PRN 09/27/18 [History] Allergy/AdvReac Type Severity Reaction Status Date / Time No Known Allergies Allergy Verified 07/26/18 09:54 - Meds/Allergy Pre-op Review Medications Reviewed: Yes Allergies Reviewed: Yes Beta Blockers on Current Med List: Yes Anesthesia Results - Labs 09/28/18 06:37 09/29/18 06:08 Laboratory Tests 09/27/18 09/28/18 09/29/18 04:23 06:37 06:08 Calcium 7.6 L Phosphorus 6.7 H Total Bilirubin 0.3 Albumin 2.9 L - Imaging EKG: report reviewed (Sinus rhythm Abnormal inferior Q waves Nonspecific T abnormalities, lateral leads) Anesthesia Exam Vital Signs/O2 Sat/Glucose, Most Recent Temp Pulse Resp BP Pulse Ox 98.4 F 76 16 140/71 98 09/29/18 15:42 09/29/18 15:42 09/29/18 15:42 09/29/18 15:42 09/29/18 15:42 Blood Glucose* 157 Weight: 98 KG - BMI 31 NPO (# of Hours): >MN - HEENT Mallampati: II Teeth: Normal - Cardiac Rhythm: Regular - Pulmonary Breath Sounds: bilateral Clear Respiratory Effort: Symmetrical - Additional Findings LEFT UPPER EXTREMITY AVF Anesthesia Assess/Plan ASA Score: 4 Anesthetic Plan: General (HIGH RISK FOR CV COMPLICATIONS) Monitoring Plan: Standard Monitors, A-Line Recovery Plan: PACU
[2018-09-29] MEDS: rOPINIRole 0.25 MG TABLET PO SCH (21:15)
--- NOTE | 2018-09-29 21:33 | Nephrology Progress Note ---
Date of Encounter: 09/29/18 Time of Encounter: 21:31 - Assessment and Plan (1) ESRD (end stage renal disease) Current Visit: Yes Status: Chronic HD MWF. Renal vitamins. Renal dose medications. Renal diet. Additional dialysis and ultrafiltration as needed. Patient was seen on dialysis. (2) Congestive heart failure Current Visit: Yes Status: Acute Qualifiers: Heart failure type: combined systolic and diastolic Heart failure chronicity: acute on chronic Qualified Code(s): I50.43 - Acute on chronic combined systolic (congestive) and diastolic (congestive) heart failure (3) Abnormal chest xray Current Visit: No Status: Acute (4) Elevated troponin Current Visit: No Status: Acute (5) Anemia in chronic kidney disease Current Visit: No Status: Chronic Qualifiers: Chronic kidney disease stage: on chronic dialysis Qualified Code(s): N18.6 - End stage renal disease; D63.1 - Anemia in chronic kidney disease; Z99.2 - Dependence on renal dialysis (6) CAD (coronary artery disease) Current Visit: Yes Status: Chronic Qualifiers: Coronary Disease-Associated Artery/Lesion type: [place] artery Habematolel vs. transplanted heart: [place] heart Associated angina: without angina Qualified Code(s): I25.10 - Atherosclerotic heart disease of [place] coronary artery without angina pectoris (7) Hypertension Current Visit: No Status: Chronic Qualifiers: Hypertension type: essential hypertension Qualified Code(s): I10 - Essential (primary) hypertension (8) Obesity (BMI 30.0-34.9) Current Visit: No Status: Chronic (9) Calciphylaxis Current Visit: No Status: Chronic Patient reports adverse reaction to sodium thiosulfate and is refusing the medication. Subjective Principal diagnosis: esrd Interval history: Patient with ESRD presenting with recurrent dyspnea. He has no new complaint today. He spoke with thoracic surgery and has a procedure planned for tomorrow. Patient seems pleased at having a possible option for treatment. He was seen on dialysis. Objective - Vital Signs Vital signs: Vital Signs Temp Pulse Resp BP Pulse Ox 09/29/18 20:06 98.5 F 71 17 120/56 97 09/29/18 15:42 98.4 F 76 16 140/71 98 09/29/18 12:34 97.8 F 18 126/61 09/29/18 12:15 118/67 09/29/18 12:00 112/62 09/29/18 11:45 127/57 09/29/18 11:30 133/77 09/29/18 11:15 147/75 09/29/18 11:00 142/71 09/29/18 10:45 136/65 09/29/18 10:30 150/57 09/29/18 10:15 149/81 09/29/18 10:00 137/72 09/29/18 09:45 149/85 09/29/18 09:30 152/88 09/29/18 09:15 97.6 F 16 149/58 09/29/18 07:16 98.4 F 76 17 164/76 97 09/29/18 04:24 98.1 F 71 17 129/65 96 09/29/18 03:56 17 98 09/28/18 23:31 98.1 F 70 17 117/61 99 Intake and Output 09/29/18 09/29/18 09/29/18 07:59 15:59 23:59 Intake Total 720 / 720 Output Total 2220 / 2220 Balance -1500 / -1500 Intake: Oral 120 / 120 Intake, Rinseback and Flushes 600 / 600 Output: Total Dialysis (HD) Output 2220 / 2220 Other: Meal Breakfast Percent of Meal Consumed 30% Blood Glucose* 169 157 138 Hemodialysis Net Fluid Removed 1620 (mL) - General Appearance General appearance: Present: well-developed, well-nourished EENT: Present: ATNC Neck: Present: supple Cardiology: Present: regular rate Integumentary: Present: warm and dry Musculoskeletal: Present: no cyanosis - Lab 09/28/18 06:37 09/29/18 06:08 Consult Discharge Plan - Plan Referrals: NONE,PCP [Primary Care Provider] -
[2018-09-29 23:15] LABS: Albumin 2.9 g/dL (3.5-5.7); Calcium 7.5 mg/dL (8.6-10.3); Phosphorous 5.6 mg/dL (2.7-4.5); Potassium 4.3 mEq/L (3.5-5.1)
[2018-09-30] MEDS: *HR* Heparin 5,000 UNIT/ML VIAL SQ SCH ×2 (01:26→18:28)
[2018-09-30 04:56] LABS: Basophils % 0.7 %; Eosinophils # 0.1 K/mcL (0.0-0.6); Eosinophils % 2.2 %; Hematocrit 28.2 % (37.5-50.1); Hemoglobin 9.4 g/dL (12.9-16.9); Immature Granulocytes % 0.3 % (0-4); Lymphocytes # 1.2 K/mcL (0.6-4.6); Mean Corpuscular HGB Conc 33.3 g/dL (31.6-35.5); Mean Corpuscular Hemoglobin 30.4 pg (28.0-33.3); Mean Corpuscular Volume 91.3 fL (83.0-100.0); Mean Platelet Volume 8.7 fL (9.4-12.4); Monocytes # 0.6 K/mcL (0.0-1.3); Monocytes % 10.8 %; Neutrophils # 3.8 K/mcL (1.6-8.9); Platelet Count 239 K/mcL (140-400); Red Blood Count 3.09 M/mcL (4.19-5.50); Red Cell Distribution Width 13.4 % (11.5-14.5); White Blood Count 5.9 K/mcL (4.3-11.1)
[2018-09-30 05:13] LABS: Calcium 7.6 mg/dL (8.6-10.3); Potassium 4.9 mEq/L (3.5-5.1)
[2018-09-30] MEDS ORDERED: *HR* Midazolam HCl 2 MG/2 ML VIAL ONE (06:48)
[2018-09-30] MEDS ORDERED: *HR* FentaNYL (PF) 100 MCG/2 ML VIAL ONE (06:48)
[2018-09-30] MEDS ORDERED: *HR* Propofol 200 MG/20 ML VIAL IVP ONE (06:48)
[2018-09-30] MEDS ORDERED: Dexamethasone 4 MG/ML VIAL ONE (06:55)
[2018-09-30] MEDS ORDERED: *HR* Rocuronium Bromide 50 MG/5 ML VIAL ONE (06:55)
[2018-09-30] MEDS ORDERED: Lidocaine -MPF 4% 5 ML AMPUL ONE (06:55)
[2018-09-30] MEDS ORDERED: *HR* Succinylcholine 200 MG/10 ML VIAL IVP ONE (06:55)
[2018-09-30] MEDS ORDERED: Lidocaine -MPF 2% 2 ML VIAL ONE (06:55)
[2018-09-30] MEDS ORDERED: Ondansetron 4 MG/2 ML VIAL ONE (06:55)
[2018-09-30] MEDS ORDERED: Gabapentin 300 MG CAPSULE PO ONE ×2 (07:20→10:39)
[2018-09-30] MEDS ORDERED: *HR* OxyCODONE Immed Rel 5 MG TABLET PO PRN (07:20)
[2018-09-30] MEDS ORDERED: *HR* Labetalol 20 MG/4 ML SYRINGE IVP PRN ×3 (07:20→10:39)
[2018-09-30] MEDS ORDERED: *HR* Promethazine 25 MG/ML VIAL IVP PRN ×2 (07:20→10:39)
[2018-09-30] MEDS ORDERED: Ondansetron 4 MG/2 ML VIAL IVP ONE ×2 (07:20→10:39)
[2018-09-30] MEDS ORDERED: Acetaminophen IV 1,000 MG/100 ML INFUS..BTL IVPB ONE ×2 (07:20→10:39)
[2018-09-30] MEDS ORDERED: Albuterol 2.5 MG/3 ML NEBULIZER IH ONE (07:20)
[2018-09-30] MEDS ORDERED: Heparin 1,000 UNITS/500 mL 500 ML ONE (07:26)
[2018-09-30] MEDS ORDERED: Famotidine 20 MG/2 ML VIAL ONE (07:51)
[2018-09-30] MEDS ORDERED: Acetaminophen IV 1,000 MG/100 ML INFUS..BTL ONE (07:51)
[2018-09-30] MEDS ORDERED: *HR* Etomidate 40 MG/20 ML VIAL IVP ONE (07:59)
[2018-09-30] MEDS ORDERED: SODIUM CHLORIDE 0.9% IVPB ONE (08:00)
[2018-09-30] MEDS ORDERED: DOXYCYCLINE IVPB ONE (08:00)
[2018-09-30] MEDS ORDERED: ceFAZolin 2,000 MG in Water for inj. (sterile) 20 ML IVP ONE (08:36)
[2018-09-30] MEDS ORDERED: EPHEDrine 50 MG/ML VIAL ONE (08:43)
--- NOTE | 2018-09-30 09:15 | Operative Note ---
Date of procedure: 09/30/18 Pre-op diagnosis: pleural effusion Post-op diagnosis: same Procedure: dx bronchoscopy, right thoracoscopy pleurectomy and pleurodesis Complications: none Anesthesia: GETA Local Anesthetics: 0.5% Sensorcaine HCL SubQ (cc) Surgeon: Stanley Koch Was there an assistant drafter present: No Estimated blood loss (cc): 1 Specimen: fluid and pleura Condition: stable Disposition: PACU Procedure in Detail: The patient was brought to the operating room and placed on the operating table in the supine position. He has undergone multiple thoracentesis with recurrence of his atypical chest pain at the site of thoracentesis as well as shortness of breath. Diagnostic bronchoscopy was used to place the double-lumen endotracheal tube and the only significant finding was on 80% extrinsic compression of the bronchus intermedius and lower and middle lobe bronchi from the large pleural effusion. Patient was then placed on the operating room table in the left lateral decubitus position with care to pad all pressure points. He was prepped and draped in the usual sterile fashion. Thoracoscopy ports were placed. 950 mL of serous-looking fluid was evacuated from the pleural space and sent for routine culture. A pleurectomy was performed of the chest wall and then 8 800 mg doxycycline pleurodesis performed. Intercostal nerve blocks performed. 232- Brazilian chest tubes were placed through the thoracoscopy sites secured into place with 2 Ethibond suture. The remaining incisions were closed with 0 Vicryl and 4-0 Monocryl subcuticular stitches with dressings consisting of Steri-Strips and sterile gauze. Patient was extubated, he was taken to the recovery room breathing spontaneously hemodynamically stable.
[2018-09-30] MEDS ORDERED: *HR* Labetalol 20 MG/4 ML SYRINGE IVP ONE (09:18)
[2018-09-30] MEDS: *HR* FentaNYL (PF) 100 MCG/2 ML VIAL IVP PRN ×2 (09:25→09:46)
--- NOTE | 2018-09-30 10:12 | Anesthesia Procedures ---
Date of Encounter: 09/30/18 Time of Encounter: 07:45 Procedures: Anesthesia - Arterial Line Consent obtained: written consent Time out performed: Yes Sedation: Versed (mg): 2 Local Anesthetic: Lidocaine 1% Size (Gauge): 20 Length (inches): 1 3/4 Technique Used: sterile prep, direct puncture technique Post-Procedure: line taped into place, dry sterile dressing placed Patient tolerated procedure: well, no complications Complications: none Site: Radial R
--- NOTE | 2018-09-30 10:13 | Anesthesia Evaluation Post Op ---
Date of Encounter: 09/30/18 Time of Encounter: 10:12 - Vital Signs Vital Signs: Vital Signs/O2 Sat/Glucose, Most Recent Temp Pulse Resp BP Pulse Ox 98.6 F 72 23 161/81 100 09/30/18 09:40 09/30/18 10:00 09/30/18 10:00 09/30/18 10:00 09/30/18 10:00 Blood Glucose* 144 - Lungs Lungs: Clear Ascult./Percussion - Airway Airway: Non-obstructed - Cardiovascular Regular Rate - Mental Status Mental Status: Alert & Oriented, Answers Appropriately - Pain Pain Scale: 2 - Nausea Vomiting Nausea Vomiting: Not Present - Hydration Hydration: NPO - Discharge PostOp Status: Transfer Patient to floor
[2018-09-30] MEDS ORDERED: Dextrose Gel 15 GM/37.5 ML TUBE PO PRN ×2 (10:39)
[2018-09-30] MEDS ORDERED: *HR* Dextrose 50 % in Water (Syg) 50 ML SYRINGE IVP PRN (10:39)
[2018-09-30] MEDS ORDERED: *HR* FentaNYL (PF) 100 MCG/2 ML VIAL IVP PRN (10:39)
[2018-09-30] MEDS ORDERED: Ondansetron ODT 4 MG TAB.RAPDIS SL PRN (10:39)
[2018-09-30] MEDS ORDERED: 0.9 % Sodium Chloride 1,000 ML PRIME SCH (10:39)
[2018-09-30] MEDS ORDERED: 0.9 % Sodium Chloride 250 ML IVC PRN (10:39)
[2018-09-30] MEDS ORDERED: D5% in Water 1,000 ML IVC PRN (10:39)
[2018-09-30] MEDS ORDERED: Naloxone 0.4 MG/ML INJ IVP PRN (10:39)
[2018-09-30] MEDS ORDERED: Nitroglycerin 0.4 MG TAB.SUBL SL PRN (10:39)
[2018-09-30] MEDS: Sucralfate 1 GM TABLET PO SCH ×2 (12:35→18:25)
[2018-09-30] MEDS: Insulin LISPRO 300 UNITS/3 ML VIAL SQ SCH ×3 (12:36→21:28)
[2018-09-30] MEDS ORDERED: *HR* FentaNYL (PF) 100 MCG/2 ML VIAL IVP ONE (15:31)
[2018-09-30] MEDS: Gabapentin 300 MG CAPSULE PO SCH ×2 (15:51→21:27)
--- NOTE | 2018-09-30 16:06 | Internal Med Progress Note ---
Hospitalist Progress Note - Encounter Date of Encounter: 09/30/18 Time of Encounter: 16:01 - Subjective Interval History: Patient is seen after procedure. He is complaining of chest pain 10 out of 10 from chest tube area. I will order the 1 dose of IV fentanyl. He is encouraged to take oral [place] as needed. - Exam Vitals: Temp Pulse Resp BP Pulse Ox 98 F 75 16 121/74 98 09/30/18 11:00 09/30/18 12:00 09/30/18 12:00 09/30/18 12:00 09/30/18 12:00 Exam: General: Patient is alert, no acute distress, oriented x 3 ENT: Mucous membranes moist Respiratory: Diminished breath sounds at both bases, scant crackles Cardiovascular: Regular rate and rhythm. s1 and s2 normal No clicks, rubs, gallops, or murmurs. No pedal edema Abdomen: Abdomen is soft, nontender. Bowel sounds are present Musculoskeletal: Spontaneously moving all extremities Skin: warm, dry, intact. Neuro: Alert oriented x 3 normal cranial nerves, no focal deficits DVT Prophylaxis: On sq heparin - Summary of Assessment and Plan Summary of Assessment and Plan: Mr. Hernandez is a 53 year old male Patient presented to the emergency room with increased shortness of breath. He has recently been in the hospital, and discharged on September 21. He has been inconsistent with his dialysis sessions, he has end-stage renal disease with multiple admissions for shortness of breath and fluid overload. He has required thoracentesis in the past. His brother who lives in another state was recently injured, and the patient has been traveling back and forth to help him. He has missed some dialysis sessions, but states over the last week he was compliant. However, after his dialysis sessions, he says that he gets very weak and he has continued shortness of breath. He returned to the emergency room for evaluation. patient waas admitted on 09/27 for SOB and right sided chest pain (1) Acute on chronic combined systolic and diastolic CHF, TTE showed EF 55% in 08/2018, improved with HD and lasix Current Visit: Yes Status: Acute (2) Recurrent right pleural effusion,and acute pleuritis, CTS was consulted, s/p thoracoscopy, pleurectomy and pleurodesis today, tolerated well. Current Visit: Yes Status: Chronic (3) ESRD on HD MWF , nephrology is on board Current Visit: No Status: Acute (4) Hyperkalemia, resolved after HD. Current Visit: No Status: Acute (5) CAD s/p CABG Coronary artery disease: Patient had triple-vessel coronary artery disease per left heart catheterization done in May 2018. Nephrology recommends cardiothoracic surgeon consultation due to recurrent episodes of dyspnea and chest pain. CTS was conuslted, recommended medical management Mild troponin elevation. Adynamic. Continue aspirin, Plavix and statin. Continue Ranexa and Imdur for chest pain. Current Visit: Yes Status: Chronic (6) Bilateral leg ulcer, chronic Current Visit: No Status: Acute (7) Elevated troponin, adynamic Current Visit: No Status: Acute (8) Dyspnea Current Visit: No Status: Acute (9) DM type 2, conitnue insulin regimen (10) Hypertension, well controlled Current Visit: Yes Status: Chronic Disposition: pending procedure - Time Spent with Patient Total time spent is greater than 50% in coordination of care (as documented) at patient's floor/unit and/or counseling patient: 25 - 35 minutes Plan of Care Discussed with: patient Internal Medicine: Result - Labs CBC & Chem 7: 09/30/18 04:00 09/30/18 04:35 Labs: Short CBC 09/30/18 Range/Units 04:00 WBC 5.9 (4.3-11.1) K/mcL Hgb 9.4 L (12.9-16.9) g/dL Hct 28.2 L (37.5-50.1) % Plt Count 239 (140-400) K/mcL Neutrophils # 3.8 (1.6-8.9) K/mcL BMP 09/29/18 09/30/18 22:12 04:35 Sodium 135 L 137 Potassium 4.3 D 4.9 Chloride 95 L 94 L Carbon Dioxide 28 30 H BUN 43 H 45 H Creatinine 6.34 H 6.92 H Glucose 124 H 127 H Calcium 7.5 L 7.6 L Liver Function 09/29/18 Range/Units 22:12 Albumin 2.9 L (3.5-5.7) g/dL - ABG Interpretation ABG results: PT/INR, D-dimer PT 11.8 Seconds (9.4-12.1) 09/26/18 19:03 Consult Discharge Plan - Plan Referrals: NONE,PCP [Primary Care Provider] -
--- NOTE | 2018-09-30 20:52 | Nephrology Progress Note ---
Date of Encounter: 09/30/18 Time of Encounter: 20:50 - Assessment and Plan (1) ESRD (end stage renal disease) Current Visit: Yes Status: Chronic HD MWF. Renal vitamins. Renal dose medications. Renal diet. Additional dialysis and ultrafiltration as needed. (2) Congestive heart failure Current Visit: Yes Status: Acute Qualifiers: Heart failure type: combined systolic and diastolic Heart failure mooner nicity: acute on chronic Qualified Code(s): I50.43 - Acute on chronic combined systolic (congestive) and diastolic (congestive) heart failure (3) Abnormal chest xray Current Visit: No Status: Acute (4) Elevated troponin Current Visit: No Status: Acute (5) Anemia in chronic kidney disease Current Visit: No Status: Chronic Qualifiers: Chronic kidney disease stage: on chronic dialysis Qualified Code(s): N18.6 - End stage renal disease; D63.1 - Anemia in chronic kidney disease; Z99.2 - Dependence on renal dialysis (6) CAD (coronary artery disease) Current Visit: Yes Status: Chronic Qualifiers: Coronary Disease-Associated Artery/Lesion type: [place] artery [place] vs. 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 He has no new complaint today. Patient s/p pleurodesis Objective - Vital Signs Vital signs: Vital Signs Temp Pulse Resp BP Pulse Ox 09/30/18 16:58 98.3 F 90 17 106/74 92 09/30/18 12:00 75 16 121/74 98 09/30/18 11:30 74 16 120/76 98 09/30/18 11:00 98 F 77 16 122/75 100 09/30/18 10:20 97.3 F L 73 16 154/70 100 09/30/18 10:10 97.3 F L 73 21 166/79 100 09/30/18 10:00 72 23 161/81 100 09/30/18 09:50 73 24 167/83 100 09/30/18 09:40 98.6 F 72 15 184/95 100 09/30/18 09:30 71 14 196/95 100 09/30/18 09:20 71 15 195/92 100 09/30/18 09:10 98.3 F 88 14 246/137 100 09/30/18 04:10 98.1 F 74 15 135/71 98 09/30/18 00:29 98.7 F 76 17 146/69 97 Intake and Output 09/30/18 09/30/18 09/30/18 07:59 15:59 23:59 Intake Total 0 / 120 120 / 120 Output Total 701 / 1151 450 / 1151 Balance 0 / -1031 -581 / -1031 -450 / -1031 Intake: Oral 0 / 120 120 / 120 Output: Estimated Blood Loss Straight Cath 700 / 700 Chest Tube Drainage 450 / 450 Right Lateral Chest 450 / 450 Other: Meal Lunch Percent of Meal Consumed 0% Blood Glucose* 122 201 261 - General Appearance General appearance: Present: well-developed, well-nourished EENT: Present: ATNC Neck: Present: supple Cardiology: Present: regular rate Neurologic: Present: alert and oriented x3 Psychiatric: Present: mood/affect appropriate - Lab 09/30/18 04:00 09/30/18 04:35 Consult Discharge Plan - Plan Referrals: NONE,PCP [Primary Care Provider] -
[2018-09-30] MEDS: rOPINIRole 0.25 MG TABLET PO SCH (21:28)
[2018-09-30] MEDS: Ranolazine 500 MG TAB.ER.12H PO SCH (21:28)
[2018-09-30] MEDS: *HR* HYDROcodone/Acet 5/325 mg TABLET PO PRN (21:42)
[2018-10-01] MEDS: *HR* HYDROcodone/Acet 5/325 mg TABLET PO PRN ×3 (03:48→21:24)
[2018-10-01] MEDS: *HR* Heparin 5,000 UNIT/ML VIAL SQ SCH ×2 (05:23→16:52)
[2018-10-01] MEDS: traMADol 50 MG TABLET PO PRN (05:36)
[2018-10-01 06:00] LABS: Hematocrit 23.1 % (37.5-50.1); Mean Corpuscular HGB Conc 33.3 g/dL (31.6-35.5); Mean Corpuscular Hemoglobin 30.6 pg (28.0-33.3); Mean Corpuscular Volume 91.7 fL (83.0-100.0); Mean Platelet Volume 8.8 fL (9.4-12.4); Platelet Count 278 K/mcL (140-400); Red Blood Count 2.52 M/mcL (4.19-5.50); Red Cell Distribution Width 13.6 % (11.5-14.5)
[2018-10-01 06:02] LABS: Hemoglobin 7.7 g/dL (12.9-16.9); White Blood Count 11.2 K/mcL (4.3-11.1)
[2018-10-01 06:17] LABS: Calcium 7.5 mg/dL (8.6-10.3); Potassium 5.2 mEq/L (3.5-5.1)
[2018-10-01] MEDS ORDERED: 0.9 % Sodium Chloride 250 ML IVC PRN (07:09)
[2018-10-01] MEDS ORDERED: 0.9 % Sodium Chloride 1,000 ML PRIME SCH (07:15)
[2018-10-01] MEDS: Ranolazine 500 MG TAB.ER.12H PO SCH ×2 (08:09→21:00)
[2018-10-01] MEDS: Gabapentin 300 MG CAPSULE PO SCH ×3 (08:10→21:01)
[2018-10-01] MEDS: Aspirin Enteric Coated 81 MG Tablet PO SCH (08:10)
[2018-10-01] MEDS: Insulin LISPRO 300 UNITS/3 ML VIAL SQ SCH ×4 (08:11→21:07)
[2018-10-01] MEDS: Sucralfate 1 GM TABLET PO SCH ×3 (08:11→16:51)
[2018-10-01] MEDS: Isosorbide MONOnitrate (24 HR) 30 MG TAB.ER.24H PO SCH (08:14)
--- NOTE | 2018-10-01 08:47 | Cardiothoracic Progress Note ---
Date of Encounter: 10/01/18 Time of Encounter: 08:45 - Assessment and plan (1) Acute serous pleuritis Current Visit: Yes Status: Chronic The assessment and plan as outlined above was discussed with the patient and/or family members who expressed understanding and agreement. All questions were answered. s/p pleurectomy and pleurodesis. rounded with hospitalist. continue drains to suction through the weekend (2) ESRD (end stage renal disease) on dialysis Current Visit: No Status: Chronic The assessment and plan as outlined above was discussed with the patient and/or family members who expressed understanding and agreement. All questions were answered. dialysis today (3) Moderate protein-calorie malnutrition Current Visit: No Status: Chronic The assessment and plan as outlined above was discussed with the patient and/or family members who expressed understanding and agreement. All questions were an swered. I would anticipate the patient would be able to eat better after we relieve his dyspnea at rest and on exertion. If you cannot breathe normally do not eat. - Subjective Interval history: can take a deeper breath. said thank you for doing surgery Vital Signs, Last 4 Hours Temp Pulse Resp BP Pulse Ox 10/01/18 07:24 98.3 F 81 14 120/64 98 Oxgyen Flow Rate Oxygen Flow Rate (LPM) 3 Clinical Data, last 8 Hours Output, Chest Tube Drainage 1,060 Amount [Right Lateral Chest] Output, Chest Tube Drainage 1,050 Amount [Right Lateral Chest] Weight 09/29/18 09/30/18 10/01/18 23:59 23:59 23:59 Weight 96.8 kg - Physical Examination General: Conversant, No Apparent Distress, Well developed, Well nourished HEENT: Atraumatic, Normocephaly Cardiac: Other (irregular irregular ) Incision: No signs of infection Lungs: Normal Breath Sounds Abdomen: Soft, Non-tender, Other (bs present. no peritoneal signs ) - Labs 10/01/18 05:28 10/01/18 05:28 Lab Results, Last 24 hours 10/01/18 10/01/18 05:28 05:28 WBC 11.2 H D Hgb 7.7 L D Hct 23.1 L Plt Count 278 Sodium 133 L Potassium 5.2 H Chloride 94 L Carbon Dioxide 24 BUN 70 H Creatinine 8.95 H Glucose 224 H Calcium 7.5 L - Imaging Chest Xray: image reviewed Consult Discharge Plan - Plan Referrals: NONE,PCP [Primary Care Provider] -
[2018-10-01] MEDS ORDERED: 0.9 % Sodium Chloride 1,000 ML ONE (11:26)
--- NOTE | 2018-10-01 15:45 | Internal Med Progress Note ---
Hospitalist Progress Note - Encounter Date of Encounter: 10/01/18 Time of Encounter: 08:00 - Subjective Interval History: Alyssa is doing well, afebrile, still has a lot of pain from chest, denies SOB, disucssed with Dr Koch, will need 4-5 days to heel, briejuanito remove CT next week - Exam Vitals: Temp Pulse Resp BP Pulse Ox 97.7 F 81 16 109/69 98 10/01/18 12:40 10/01/18 07:24 10/01/18 12:40 10/01/18 12:40 10/01/18 07:24 Exam: General: Patient is alert, no acute distress, oriented x 3 ENT: Mucous membranes moist Respiratory: clear breath sounds, no wheezing and crackles Cardiovascular: Regular rate and rhythm. s1 and s2 normal No clicks, rubs, gall ops, or murmurs. No pedal edema Abdomen: Abdomen is soft, nontender. Bowel sounds are present Musculoskeletal: Spontaneously moving all extremities Skin: warm, dry, intact. Neuro: Alert oriented x 3 normal cranial nerves, no focal deficits DVT Prophylaxis: On sq heparin - Summary of Assessment and Plan Summary of Assessment and Plan: Mr. Hernandez is a 53 year old male Patient presented to the emergency room with increased shortness of breath. He has recently been in the hospital, and discharged on September 21. He has been inconsistent with his dialysis sessions, he has end-stage renal disease with multiple admissions for shortness of breath and fluid overload. He has required thoracentesis in the past. His brother who lives in another state was recently injured, and the patient has been traveling back and forth to help him. He has missed some dialysis sessions, but states over the last week he was compliant. However, after his dialysis sessions, he says that he gets very weak and he has continued shortness of breath. He returned to the emergency room for evaluation. patient waas admitted on 09/27 for SOB and right sided chest pain (1) Acute on chronic combined systolic and diastolic CHF, TTE showed EF 55% in 08/2018, improved with HD and lasix Current Visit: Yes Status: Acute (2) Recurrent right pleural effusion,and acute pleuritis, CTS was consulted, s/p thoracoscopy, pleurectomy and pleurodesis today, tolerated well. discussed with Dr Kcoh, will continue drains to suction through the weekend, then remove CT next week (3) ESRD on HD MWF , nephrology is on board Current Visit: No Status: Acute (4) Hyperkalemia, resolved after HD. Current Visit: No Status: Acute (5) CAD s/p CABG Coronary artery disease: Patient had triple-vessel coronary artery disease per left heart catheterization done in May 2018. Nephrology recommends cardiothoracic surgeon consultation due to recurrent episodes of dyspnea and chest pain. CTS was conuslted, recommended medical management Mild troponin elevation. Adynamic. Continue aspirin, Plavix and statin. Continue Ranexa and Imdur for chest pain. Current Visit: Yes Status: Chronic (6) Bilateral leg ulcer, chronic Current Visit: No Status: Acute (7) Elevated troponin, adynamic Current Visit: No Status: Acute (8) Dyspnea Current Visit: No Status: Acute (9) DM type 2, conitnue insulin regimen (10) Hypertension, well controlled Current Visit: Yes Status: Chronic Disposition: Next week after chest Tube removal - Time Spent with Patient Total time spent is greater than 50% in coordination of care (as documented) at patient's floor/unit and/or counseling patient: Plan of Care Discussed with: patient Internal Medicine: Result - Labs CBC & Chem 7: 10/01/18 05:28 10/01/18 05:28 Labs: Short CBC 10/01/18 Range/Units 05:28 WBC 11.2 H D (4.3-11.1) K/mcL Hgb 7.7 L D (12.9-16.9) g/dL Hct 23.1 L (37.5-50.1) % Plt Count 278 (140-400) K/mcL BMP 10/01/18 05:28 Sodium 133 L Potassium 5.2 H Chloride 94 L Carbon Dioxide 24 BUN 70 H Creatinine 8.95 H Glucose 224 H Calcium 7.5 L - ABG Interpretation ABG results: PT/INR, D-dimer PT 11.8 Seconds (9.4-12.1) 09/26/18 19:03 - Impressions Impressions Chest X-Ray 10/01/18 08:00 IMPRESSION: Interval resolution of the right pleural effusion following placement of 2 right chest tubes. No pneumothorax. D/ / Luke Colmenares MD / Luke Colmenares MD Interpreting Provider: Luke Colmenares MD Consult Discharge Plan - Plan Referrals: NONE,PCP [Primary Care Provider] -
--- NOTE | 2018-10-01 20:52 | Nephrology Progress Note ---
Date of Encounter: 10/01/18 Time of Encounter: 12:00 - Assessment and Plan (1) Pleural effusion Current Visit: No Status: Resolved s/p pleurodesis by Dr Koch, recs appreciated (2) ESRD (end stage renal disease) Current Visit: Yes Status: Chronic Continue HD with UF as tolerated Lytes stable with potassium at 5.2, continue renal diet Continue fluid restriction (3) Hypertension Current Visit: No Status: Chronic Bp readings actually on the low side making UF difficult Qualifiers: Hypertension type: essential hypertension Qualified Code(s): I10 - Essent ial (primary) hypertension (4) Anemia in chronic kidney disease Current Visit: No Status: Chronic Hgb noted dropped to 7.7 from 9.4, will monitor for bleeding Transfusion parameters per primary team Qualifiers: Chronic kidney disease stage: on chronic dialysis Qualified Code(s): N18.6 - End stage renal disease; D63.1 - Anemia in chronic kidney disease; Z99.2 - Dependence on renal dialysis (5) CAD (coronary artery disease) Current Visit: Yes Status: Chronic Qualifiers: Coronary Disease-Associated Artery/Lesion type: [place] artery [place] vs. 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 Objective - Vital Signs Vital signs: Vital Signs Temp Pulse Resp BP Pulse Ox 10/01/18 17:15 98.6 F 101 17 118/72 98 10/01/18 12:40 97.7 F 16 109/69 10/01/18 12:20 99/56 10/01/18 12:05 100/51 10/01/18 11:50 96/62 10/01/18 11:35 96/62 10/01/18 11:20 80/51 10/01/18 11:05 100/58 10/01/18 10:50 100/65 10/01/18 10:35 107/68 10/01/18 10:20 108/64 10/01/18 10:05 99/59 10/01/18 09:50 108/64 10/01/18 09:35 108/65 10/01/18 09:20 98.4 F 16 108/58 10/01/18 07:24 98.3 F 81 14 120/64 98 10/01/18 01:24 98.3 F 83 17 111/57 95 09/30/18 20:58 98.0 F 85 17 151/80 93 Intake and Output 10/01/18 10/01/18 10/01/18 07:59 15:59 23:59 Intake Total 600 / 600 Output Total 1050 / 3985 2795 / 3985 140 / 3985 Balance -1050 / -3385 -2195 / -3385 -140 / -3385 Intake: Intake, Rinseback and Flushes 600 / 600 Output: Total Dialysis (HD) Output 1735 / 1735 Chest Tube Drainage 1050 / 2250 1060 / 2250 140 / 2250 Right Lateral Chest 1050 / 2250 1060 / 2250 140 / 2250 Other: Weight 96.8 kg Blood Glucose* 243 119 284 Hemodialysis Net Fluid Removed 1135 (mL) Patient Weight 10/01/18 23:59 Weight 96.8 kg - General Appearance General appearance: Present: chronically ill EENT: Present: ATNC, mucous membranes moist Additional Comments: good areation with decrease at bases with CT in place Cardiology: Present: no edema, normal S1, normal S2 Dialysis Vascular Access: Arteriovenous Fistula thrill: Yes bruit: Yes Gastrointestinal: Present: no tenderness, no guarding, obese Integumentary: Present: warm and dry Neurologic: Present: no focal deficit Musculoskeletal: Present: no deformities Psychiatric: Present: mood/affect appropriate, cooperative - Lab 10/01/18 05:28 10/01/18 05:28 Consult Discharge Plan - Plan Referrals: NONE,PCP [Primary Care Provider] -
[2018-10-01] MEDS: rOPINIRole 0.25 MG TABLET PO SCH (21:01)
[2018-10-02 04:59] LABS: Hematocrit 19.6 % (37.5-50.1); Hemoglobin 6.5 g/dL (12.9-16.9); Mean Corpuscular HGB Conc 33.2 g/dL (31.6-35.5); Mean Corpuscular Hemoglobin 30.1 pg (28.0-33.3); Mean Corpuscular Volume 90.7 fL (83.0-100.0); Mean Platelet Volume 8.7 fL (9.4-12.4); Platelet Count 231 K/mcL (140-400); Red Blood Count 2.16 M/mcL (4.19-5.50); White Blood Count 9.7 K/mcL (4.3-11.1)
[2018-10-02 05:06] LABS: Calcium 7.6 mg/dL (8.6-10.3); Potassium 6.1 mEq/L (3.5-5.1)
[2018-10-02] MEDS: *HR* HYDROcodone/Acet 5/325 mg TABLET PO PRN ×2 (05:26→18:24)
[2018-10-02] MEDS: *HR* Heparin 5,000 UNIT/ML VIAL SQ SCH ×2 (05:26→17:51)
[2018-10-02] MEDS: Insulin LISPRO 300 UNITS/3 ML VIAL SQ SCH ×4 (08:20→20:45)
[2018-10-02] MEDS: Ranolazine 500 MG TAB.ER.12H PO SCH ×2 (08:20→20:54)
[2018-10-02] MEDS: Sucralfate 1 GM TABLET PO SCH ×3 (08:21→17:50)
[2018-10-02] MEDS: Isosorbide MONOnitrate (24 HR) 30 MG TAB.ER.24H PO SCH (08:21)
[2018-10-02] MEDS: Aspirin Enteric Coated 81 MG Tablet PO SCH (08:22)
[2018-10-02] MEDS: Gabapentin 300 MG CAPSULE PO SCH ×4 (08:22→20:54)
--- NOTE | 2018-10-02 09:15 | Cardiothoracic Progress Note ---
Date of Encounter: 10/02/18 Time of Encounter: 08:57 - Assessment and plan (1) Pleural effusion Current Visit: No Status: Resolved The patient is recovering well from his right thoracoscopy with pleurectomy and chemical pleurodesis. The chest tube output is decreasing. The chest tube should remain on suction at this time. The assessment and plan as outlined above was discussed with the patient and/or family members who expressed understanding and agreement. All questions were answered. - Subjective Procedure(s) Performed: POD#2 S/P Right thoracoscopy with pleurectomy and chemical pleurodesis Interval history: The patient remained hemodynamically stable overnight. He is sitting at the side of his hospital bed and breathing comfortably. He has no complaints. Vital Signs, Last 4 Hours Temp Pulse Resp BP Pulse Ox 10/02/18 07:45 98.0 F 86 16 123/71 99 Oxgyen Flow Rate Oxygen Flow Rate (LPM) 3 Clinical Data, last 8 Hours Output, Chest Tube Drainage 30 Amount [Right Lateral Chest] Output, Urine Amount 100 Weight 09/30/18 10/01/18 10/02/18 23:59 23:59 23:59 Weight 96.8 kg 96.9 kg - Physical Examination General: Conversant, No Apparent Distress Neck: No JVD, Normal carotid pulses Cardiac: Reg Rate and Rhythm, Normal S1 and S2, No Murmur Incision: No signs of infection, Dry/intact dressing Chest tubes: Minimal drainage, Other (No air leak) Lungs: Normal Breath Sounds, No Wheeze, Rales, Rhonchi Neuro: Alert and responsive, No focal deficits noted Vascular: Normal capillary refill Extremities: No Clubbing, No Cyanosis, No Edema - Labs 10/02/18 04:30 10/02/18 04:30 Lab Results, Last 24 hours 10/02/18 10/02/18 04:30 04:30 WBC 9.7 Hgb 6.5 L Hct 19.6 L Plt Count 231 Sodium 139 Potassium 6.1 H Chloride 92 L Carbon Dioxide 23 BUN 53 H Creatinine 7.15 H Glucose 185 H Calcium 7.6 L - Imaging Chest Xray: image reviewed (No pneumothorax. Minimal atelectasis/infiltrates.) Consult Discharge Plan - Plan Referrals: NONE,PCP [Primary Care Provider] -
--- NOTE | 2018-10-02 09:54 | Internal Med Progress Note ---
Hospitalist Progress Note - Encounter Date of Encounter: 10/02/18 Time of Encounter: 10:00 - Subjective Interval History: Patient was seen and examined other bursitis.. Patient states his breathing is much better today Over the patient a few weeks and sometimes dizzy, nausea or vomiting Hemoglobin this morning noted to be 6.5 I did order 1 unit packed RBC order kayexalate for the hyperkalemia Chest tube output is decreasing - Exam Vitals: Temp Pulse Resp BP Pulse Ox 98.0 F 86 16 123/71 99 10/02/18 07:45 10/02/18 07:45 10/02/18 07:45 10/02/18 07:45 10/02/18 07:45 Exam: Physical examination: Gen.: Patient is alert and oriented, not in respiratory distress of pain HEENT: perrla , EOMI, no thyroid gland enlargement, no neck mass, supple neck Heart: S1 and S2 rodney, normal sinus rhythm, no cardiac murmur no gallop rhythm Chest: Air entry equal bilaterally, clear chest, no wheezing, crackles or crepitation, chest tube placement noted Abdomen: Soft nontender nondistended positive bowel sounds, no organomegaly Extremities: No pitting edema, peripheral pulses palpable, no cyanosis tenderness Neuro: Able to move all 4 limbs, no focal neurological deficit. DVT Prophylaxis: On sq heparin - Summary of Assessment and Plan Summary of Assessment and Plan: Mr. Hernandez is a 53 year old male Patient presented to the emergency room with increased shortness of breath. He has recently been in the hospital, and discharged on September 21. He has been inconsistent with his dialysis sessions, he has end-stage renal disease with multiple admissions for shortness of breath and fluid overload. He has required thoracentesis in the past. His brother who lives in another state was recently injured, and the patient has been traveling back and forth to help him. He has missed some dialysis sessions, but states over the last week he was compliant. However, after his dialysis sessions, he says that he gets very weak and he has continued shortness of breath. He returned to the emergency room for evaluation. patient waas admitted on 09/27 for SOB and right sided chest pain (1) Acute on chronic combined systolic and diastolic CHF, TTE showed EF 55% in 08/2018, improved with HD and lasix Current Visit: Yes Status: Acute (2) Recurrent right pleural effusion,and acute pleuritis, CTS was consulted, s/p thoracoscopy, pleurectomy and pleurodesis today, tolerated well. continue drains to suction through the weekend, then remove CT next week CT output is decreasing CT surgery on both appreciate 3- acute blood loss anemia: Most likely postoperative blood loss Hemoglobin this morning 6.5 from 7.7 yesterday order 1 unit PRBC follow CBC daily (3) ESRD on HD MWF , nephrology is on board Current Visit: No Status: Acute (4) Hyperkalemia: Serum potassium 6.1 this morning , order Kayexalate orally Check Serum potassium today later on Current Visit: No Status: Acute (5) CAD s/p CABG Coronary artery disease: Patient had triple-vessel coronary artery disease per left heart catheterization done in May 2018. Nephrology recommends cardiothoracic surgeon consultation due to recurrent episodes of dyspnea and chest pain. CTS was conuslted, recommended medical management Mild troponin elevation. Adynamic. Continue aspirin, Plavix and statin. Continue Ranexa and Imdur for chest pain. Current Visit: Yes Status: Chronic (6) Bilateral leg ulcer, chronic , secondary to chronic venous stasis Current Visit: No Status: Chronic (7) Elevated troponin, adynamic: Patient has chronic troponin elevation since April 2018 she denied chest pain Current Visit: No Status: Acute (8) Dyspnea Current Visit: No Status: Acute (9) DM type 2, conitnue insulin regimen (10) Hypertension, pressure acceptable on current blood pressure medication Current Visit: Yes Status: Chronic Disposition: Next week after chest Tube removal - Time Spent with Patient Total time spent is greater than 50% in coordination of care (as documented) at patient's floor/unit and/or counseling patient: Plan of Care Discussed with: patient Internal Medicine: Result - Labs CBC & Chem 7: 10/02/18 04:30 10/02/18 04:30 Labs: Short CBC 10/02/18 Range/Units 04:30 WBC 9.7 (4.3-11.1) K/mcL Hgb 6.5 L (12.9-16.9) g/dL Hct 19.6 L (37.5-50.1) % Plt Count 231 (140-400) K/mcL BMP 10/02/18 04:30 Sodium 139 Potassium 6.1 H Chloride 92 L Carbon Dioxide 23 BUN 53 H Creatinine 7.15 H Glucose 185 H Calcium 7.6 L - ABG Interpretation ABG results: PT/INR, D-dimer PT 11.8 Seconds (9.4-12.1) 09/26/18 19:03 - Impressions Impressions Chest X-Ray 10/02/18 08:00 IMPRESSION: 1. No discernible pneumothorax with chest tubes in place. 2. Increasing right basilar atelectasis or pneumonia. D/ / Artemio Jade MD / Artemio Jade MD Interpreting Provider: Artemio Jade MD Consult Discharge Plan - Plan Referrals: NONE,PCP [Primary Care Provider] -
[2018-10-02] MEDS ORDERED: 0.9 % Sodium Chloride 250 ML ONE (10:20)
[2018-10-02] MEDS ORDERED: 0.9 % Sodium Chloride 250 ML IVC PRN (13:40)
--- NOTE | 2018-10-02 18:07 | Nephrology Progress Note ---
Date of Encounter: 10/02/18 Time of Encounter: 12:00 - Assessment and Plan (1) Pleural effusion Current Visit: No Status: Resolved s/p pleurodesis by Dr Koch, recs appreciated (2) ESRD (end stage renal disease) Current Visit: Yes Status: Chronic s/p HD yesterday but given hyperkalemia at 6.1, will dialyze again today with 1k bath Renal diet advised Fluid restriction advised Next HD after today planned for thursday Calcium noted low at 7.6 but corrected for albumin of 2.9 approx. 8.4. Can check ionized calcium (3) Anemia in chronic kidney disease Current Visit: No Status: Chronic Hgb noted dropped from 7.7 to 6.5, will monitor for bleeding Transfusion parameters per primary team, agree with 1 unit being given Qualifiers: Chronic kidney disease stage: on chronic dialysis Qualified Code(s): N18.6 - End stage renal disease; D63.1 - Anemia in chronic kidney disease; Z99.2 - Dependence on renal dialysis (4) CAD (coronary artery disease) Current Visit: Yes Status: Chronic 3vessel CAD not amenable to intervention per CTS Qualifiers: Coronary Disease-Associated Artery/Lesion type: [place] artery [place] vs. 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 Sitting up in bed Objective - Vital Signs Vital signs: Vital Signs Temp Pulse Resp BP Pulse Ox 10/02/18 17:30 98.7 F 18 147/75 10/02/18 17:10 123/61 10/02/18 16:55 139/79 10/02/18 16:40 128/74 10/02/18 16:25 126/65 10/02/18 16:10 133/67 10/02/18 15:55 144/73 10/02/18 15:40 139/86 10/02/18 15:25 153/77 10/02/18 15:10 143/75 10/02/18 14:55 153/75 10/02/18 14:40 98.9 F 20 141/89 10/02/18 13:50 98.1 F 92 20 154/89 100 10/02/18 11:54 143/66 10/02/18 10:47 97.9 F 88 18 163/72 97 10/02/18 10:32 97.9 F 80 18 128/57 96 10/02/18 09:51 91 16 149/82 99 10/02/18 09:39 97 10/02/18 07:45 98.0 F 86 16 123/71 99 10/02/18 05:00 98.3 F 88 17 141/69 96 10/02/18 00:30 98.1 F 87 17 123/65 94 10/01/18 21:08 98 F 97 17 116/72 97 Intake and Output 10/02/18 10/02/18 10/02/18 07:59 15:59 23:59 Intake Total 1430 / 1430 Output Total 130 / 2870 70 / 2870 2670 / 2870 Balance -130 / -1440 1360 / -1440 -2670 / -1440 Intake: Oral 480 / 480 Blood Product 350 / 350 Rbcs Leuko Poor As-1 Unit 350 / 350 [id number] Intake, Rinseback and Flushes 600 / 600 Output: Urine 100 / 100 0 / 100 Total Dialysis (HD) Output 2600 / 2600 Chest Tube Drainage 30 / 170 70 / 170 70 / 170 Right Lateral Chest 30 / 170 70 / 170 70 / 170 Other: Meal Lunch Percent of Meal Consumed 90% Weight 96.9 kg Blood Glucose* 199 147 124 Hemodialysis Net Fluid Removed 1344 200 (mL) Patient Weight 10/02/18 23:59 Weight 96.9 kg - General Appearance General appearance: Present: chronically ill (NAD) EENT: Present: ATNC, mucous membranes moist Neck: Present: no JVD, supple Additional Comments: good areation ant bilat Cardiology: Present: no edema, normal S1, normal S2 Dialysis Vascular Access: Arteriovenous Fistula thrill: Yes bruit: Yes Gastrointestinal: Present: no tenderness, no guarding Integumentary: Present: warm and dry Neurologic: Present: no focal deficit Musculoskeletal: Present: no deformities Psychiatric: Present: mood/affect appropriate, cooperative - Lab 10/02/18 04:30 10/02/18 15:27 Consult Discharge Plan - Plan Referrals: NONE,PCP [Primary Care Provider] -
[2018-10-02] MEDS: rOPINIRole 0.25 MG TABLET PO SCH (20:54)
[2018-10-03] MEDS: *HR* HYDROcodone/Acet 5/325 mg TABLET PO PRN (01:16)
[2018-10-03 04:45] LABS: Hematocrit 22.6 % (37.5-50.1); Hemoglobin 7.5 g/dL (12.9-16.9); Mean Corpuscular HGB Conc 33.2 g/dL (31.6-35.5); Mean Corpuscular Hemoglobin 30.5 pg (28.0-33.3); Mean Corpuscular Volume 91.9 fL (83.0-100.0); Mean Platelet Volume 8.8 fL (9.4-12.4); Platelet Count 219 K/mcL (140-400); Red Blood Count 2.46 M/mcL (4.19-5.50); Red Cell Distribution Width 13.9 % (11.5-14.5); White Blood Count 7.4 K/mcL (4.3-11.1)
[2018-10-03 05:10] LABS: Alanine Aminotransferase < 3 Units/L (7-52); Albumin 2.9 g/dL (3.5-5.7); Alkaline Phosphatase 64 Units/L (34-104); Aspartate Amino Transferase 10 Units/L (13-39); BUN/Creatinine Ratio 7 (6-26); Bilirubin,Total 0.3 mg/dL (0.3-1.0); Blood Urea Nitrogen 45 mg/dL (6-20); Calcium 7.4 mg/dL (8.6-10.3); Carbon Dioxide 28 mEq/L (23-29); Chloride 93 mEq/L (98-107); Globulin 2.8 g/dL (2.4-3.5); Glucose 211 mg/dL (70-105); Magnesium 1.7 mg/dL (1.6-2.6); Osmolality,Calculated 300 (280-300); Phosphorous 5.5 mg/dL (2.7-4.5); Potassium 4.5 mEq/L (3.5-5.1); Sodium 136 mEq/L (136-145); Total Protein 5.7 g/dL (6.4-8.9); eGFR For African Americans 12 (> 60); eGFR For Non-African Americans 10 (> 60)
[2018-10-03 05:11] LABS: Calcium 7.4 mg/dL (8.6-10.3); Potassium 4.5 mEq/L (3.5-5.1)
[2018-10-03] MEDS: *HR* Heparin 5,000 UNIT/ML VIAL SQ SCH ×2 (06:07→17:36)
[2018-10-03] MEDS: Isosorbide MONOnitrate (24 HR) 30 MG TAB.ER.24H PO SCH (08:45)
[2018-10-03] MEDS: Ranolazine 500 MG TAB.ER.12H PO SCH ×2 (08:45→21:15)
[2018-10-03] MEDS: Insulin LISPRO 300 UNITS/3 ML VIAL SQ SCH ×4 (08:45→22:06)
[2018-10-03] MEDS: Sucralfate 1 GM TABLET PO SCH ×3 (08:45→17:35)
[2018-10-03] MEDS: Aspirin Enteric Coated 81 MG Tablet PO SCH (08:45)
[2018-10-03] MEDS: Gabapentin 300 MG CAPSULE PO SCH ×3 (08:45→21:15)
--- NOTE | 2018-10-03 09:13 | Internal Med Progress Note ---
Hospitalist Progress Note - Encounter Date of Encounter: 10/03/18 Time of Encounter: 09:11 - Subjective Interval History: the patient was seen and examined at bedside. complain of colicky upper abdominal pain started last night, intermittent in nature, no associated with vomiting order CT abdomen/pelvis wc has positive BS - Exam Vitals: Temp Pulse Resp BP Pulse Ox 97.8 F 79 16 119/67 98 10/03/18 07:51 10/03/18 07:51 10/03/18 07:51 10/03/18 07:51 10/03/18 07:51 Exam: Physical examination: Gen.: Patient is alert and oriented, not in respiratory distress of pain HEENT: perrla , EOMI, no thyroid gland enlargement, no neck mass, supple neck Heart: S1 and S2 rodney, normal sinus rhythm, no cardiac murmur no gallop rhythm Chest: Air entry equal bilaterally, clear chest, no wheezing, crackles or crepitation, chest tube placement noted Abdomen: Soft, upper abdomen tenderness on palpation without rigidity, non distended positive bowel sounds, Extremities: No pitting edema, peripheral pulses palpable, no cyanosis tenderness Neuro: Able to move all 4 limbs, no focal neurological deficit. DVT Prophylaxis: On sq heparin - Summary of Assessment and Plan Summary of Assessment and Plan: Mr. Hernandez is a 53 year old male Patient presented to the emergency room with increased shortness of breath. He has recently been in the hospital, and discharged on September 21. He has been inconsistent with his dialysis sessions, he has end-stage renal disease with multiple admissions for shortness of breath and fluid overload. He has required thoracentesis in the past. His brother who lives in another state was recently injured, and the patient has been traveling back and forth to help him. He has missed some dialysis sessions, but states over the last week he was compliant. However, after his dialysis sessions, he says that he gets very weak and he has continued shortness of breath. He returned to the emergency room for evaluation. patient waas admitted on 09/27 for SOB and right sided chest pain (1) Acute on chronic combined systolic and diastolic CHF, TTE showed EF 55% in 08/2018, improved with HD and lasix Current Visit: Yes Status: Acute (2) Recurrent right pleural effusion,and acute pleuritis, CTS was consulted, s/p thoracoscopy, pleurectomy and pleurodesis today, tolerated well. continue drains to suction through the weekend, then remove CT next week CT output is decreasing CT surgery on both appreciate 3- acute blood loss anemia: Most likely postoperative blood loss Hemoglobin this morning 7.5 up from 6.5 s/p 1 unit PRBC check iron study monitor CBC daily (3) ESRD on HD MWF , nephrology is on board Current Visit: No Status: Acute (4) Hyperkalemia: resolved afte HD 5- uper abdominal pain: colikcy in nature , sever order CT abdomen wc abdomen is soft with +BS he states no BM last few days on stool softener check serum lipase on PPI no vomiting or hematemesis Current Visit: No Status: Acute (5) CAD s/p CABG Coronary artery disease: Patient had triple-vessel coronary artery disease per left heart catheterization done in May 2018. Nephrology recommends cardiothoracic surgeon consultation due to recurrent episodes of dyspnea and chest pain. CTS was conuslted, recommended medical management Mild troponin elevation. Adynamic. Continue aspirin, Plavix and statin. Continue Ranexa and Imdur for chest pain. Current Visit: Yes Status: Chronic (6) Bilateral leg ulcer, chronic , secondary to chronic venous stasis Current Visit: No Status: Chronic (7) Elevated troponin, adynamic: Patient has chronic troponin elevation since April 2018 she denied chest pain Current Visit: No Status: Acute (8) Dyspnea Current Visit: No Status: Acute (9) DM type 2, conitnue insulin regimen (10) Hypertension, pressure acceptable on current blood pressure medication Current Visit: Yes Status: Chronic Disposition: Next week after chest Tube removal - Time Spent with Patient Total time spent is greater than 50% in coordination of care (as documented) at patient's floor/unit and/or counseling patient: Plan of Care Discussed with: patient Internal Medicine: Result - Labs CBC & Chem 7: 10/03/18 04:00 10/03/18 04:00 Labs: Short CBC 10/03/18 Range/Units 04:00 WBC 7.4 (4.3-11.1) K/mcL Hgb 7.5 L (12.9-16.9) g/dL Hct 22.6 L (37.5-50.1) % Plt Count 219 (140-400) K/mcL BMP 10/02/18 10/03/18 10/03/18 15:27 04:00 04:00 Sodium 138 136 Potassium 3.8 D 4.5 4.5 Chloride 93 L 93 L Carbon Dioxide 29 28 BUN 46 H 45 H Creatinine 6.26 H 6.18 H Glucose 207 H 211 H Calcium 7.4 L 7.4 L Liver Function 10/03/18 Range/Units 04:00 Total Bilirubin 0.3 (0.3-1.0) mg/dL AST 10 L (13-39) Units/L ALT < 3 L (7-52) Units/L Alkaline Phosphatase 64 (34-104) Units/L Albumin 2.9 L (3.5-5.7) g/dL - ABG Interpretation ABG results: PT/INR, D-dimer PT 11.8 Seconds (9.4-12.1) 09/26/18 19:03 Consult Discharge Plan - Plan Referrals: NONE,PCP [Primary Care Provider] -
[2018-10-03 10:30] LABS: % Iron Saturation 45 % (20-55); Iron 92 mcg/dL (65-175); Lipase 12 Units/L (11-82); Transferrin 146 mg/dL (203-362)
--- NOTE | 2018-10-03 10:35 | Cardiothoracic Progress Note ---
Date of Encounter: 10/03/18 Time of Encounter: 10:06 - Assessment and plan (1) Pleural effusion Current Visit: No Status: Resolved The patient is recovering well from his right thoracoscopy with pleurectomy and chemical pleurodesis. The chest tube output is decreasing. The chest tube should remain on suction at this time. The assessment and plan as outlined above was discussed with the patient and/or family members who expressed understanding and agreement. All questions were answered. - Subjective Procedure(s) Performed: POD#3 S/P Right thoracoscopy with pleurectomy and chemical pleurodesis Interval history: The patient remained hemodynamically stable overnight. He is sitting at the side of his hospital bed and breathing comfortably. He has no complaints. Vital Signs, Last 4 Hours Temp Pulse Resp BP Pulse Ox 10/03/18 07:51 97.8 F 79 16 119/67 98 Oxgyen Flow Rate Oxygen Flow Rate (LPM) 3 Clinical Data, last 8 Hours Output, Chest Tube Drainage 10 Amount [Right Lateral Chest] Weight 10/01/18 10/02/18 10/03/18 23:59 23:59 23:59 Weight 96.8 kg 96.9 kg - Physical Examination General: Conversant, No Apparent Distress Neck: No JVD, Normal carotid pulses Cardiac: Reg Rate and Rhythm, Normal S1 and S2, No Murmur Incision: No signs of infection, Dry/intact dressing Chest tubes: Minimal drainage, Other (No air leak) Lungs: Normal Breath Sounds, No Wheeze, Rales, Rhonchi Neuro: Alert and responsive, No focal deficits noted Vascular: Normal capillary refill Extremities: No Clubbing, No Cyanosis, No Edema - Labs 10/03/18 04:00 10/03/18 04:00 Lab Results, Last 24 hours 10/02/18 10/03/18 10/03/18 15:27 04:00 04:00 WBC 7.4 Hgb 7.5 L Hct 22.6 L Plt Count 219 Sodium 138 Potassium 3.8 D 4.5 Chloride 93 L Carbon Dioxide 29 BUN 46 H Creatinine 6.26 H Glucose 207 H Calcium 7.4 L Magnesium Total Bilirubin AST ALT Alkaline Phosphatase Lipase 10/03/18 10/03/18 04:00 10:00 WBC Hgb Hct Plt Count Sodium 136 Potassium 4.5 Chloride 93 L Carbon Dioxide 28 BUN 45 H Creatinine 6.18 H Glucose 211 H Calcium 7.4 L Magnesium 1.7 Total Bilirubin 0.3 AST 10 L ALT < 3 L Alkaline Phosphatase 64 Lipase 12 Consult Discharge Plan - Plan Referrals: NONE,PCP [Primary Care Provider] -
[2018-10-03 10:49] LABS: Ferritin 977 ng/mL (20-250)
--- NOTE | 2018-10-03 16:48 | Nephrology Progress Note ---
Date of Encounter: 10/03/18 Time of Encounter: 12:00 - Assessment and Plan (1) Pleural effusion Current Visit: No Status: Resolved s/p pleurodesis by Dr Koch, CTS recs appreciated Chest tube drainage decreasing (2) ESRD (end stage renal disease) Current Visit: Yes Status: Chronic s/p HD yesterday, next planned tomorrow Continue renal diet Continue fluid restriction Calcium noted low at 7.4 but corrected for albumin of 2.9 approx. 8.2. (3) Anemia in chronic kidney disease Current Visit: No Status: Chronic Hgb noted dropped from 7.5 after 1 unit pRBCs yesterday Transfusion parameters per primary team Qualifiers: Chronic kidney disease stage: on chronic dialysis Qualified Code(s): N18.6 - End stage renal disease; D63.1 - Anemia in chronic kidney disease; Z99.2 - Dependence on renal dialysis (4) CAD (coronary artery disease) Current Visit: Yes Status: Chronic 3vessel CAD not amenable to intervention per CTS Qualifiers: Coronary Disease-Associated Artery/Lesion type: [place] artery [place] vs. 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 Lying in bed, appears comfortable. s/p extra HD yesterday for hyperkalemia Objective - Vital Signs Vital signs: Vital Signs Temp Pulse Resp BP Pulse Ox 10/03/18 16:30 98.0 F 77 17 106/63 95 10/03/18 11:51 98.2 F 80 16 104/63 99 10/03/18 07:51 97.8 F 79 16 119/67 98 10/03/18 04:15 98.1 F 82 16 151/74 97 10/02/18 23:41 97.8 F 88 17 150/52 97 10/02/18 20:35 98.2 F 87 18 110/65 99 10/02/18 17:30 98.7 F 18 147/75 10/02/18 17:10 123/61 10/02/18 16:55 139/79 Intake and Output 10/03/18 10/03/18 10/03/18 07:59 15:59 23:59 Intake Total 360 / 360 Output Total 0 10 Balance -10 / 350 360 / 350 Intake: Oral 360 / 360 Output: Urine 0 / 0 Chest Tube Drainage Right Lateral Chest Other: Meal Breakfast Percent of Meal Consumed 100% Blood Glucose* 195 182 153 - General Appearance General appearance: Present: chronically ill, fatigue EENT: Present: ATNC, mucous membranes moist Neck: Present: no JVD, supple Additional Comments: good areation ant bilat +chest tube R Cardiology: Present: no edema, normal S1, normal S2 Dialysis Vascular Access: Arteriovenous Fistula thrill: Yes bruit: Yes Gastrointestinal: Present: no tenderness, no guarding, obese Integumentary: Present: warm and dry Neurologic: Present: no focal deficit Musculoskeletal: Present: no deformities Psychiatric: Present: mood/affect appropriate, cooperative - Lab 10/03/18 04:00 10/03/18 04:00 Most recent lab results 10/03/18 10/03/18 04:00 04:00 Calcium 7.4 L 7.4 L Phosphorus 5.5 H Magnesium 1.7 Consult Discharge Plan - Plan Referrals: NONE,PCP [Primary Care Provider] -
[2018-10-03 18:08] LABS: Hematocrit 23.7 % (37.5-50.1); Hemoglobin 7.8 g/dL (12.9-16.9)
[2018-10-03] MEDS: rOPINIRole 0.25 MG TABLET PO SCH (21:15)
[2018-10-04 05:38] LABS: Hematocrit 22.1 % (37.5-50.1); Hemoglobin 7.4 g/dL (12.9-16.9); Mean Corpuscular HGB Conc 33.5 g/dL (31.6-35.5); Mean Corpuscular Hemoglobin 30.5 pg (28.0-33.3); Mean Corpuscular Volume 90.9 fL (83.0-100.0); Mean Platelet Volume 8.9 fL (9.4-12.4); Platelet Count 244 K/mcL (140-400); Red Blood Count 2.43 M/mcL (4.19-5.50); Red Cell Distribution Width 13.5 % (11.5-14.5); White Blood Count 8.2 K/mcL (4.3-11.1)
[2018-10-04 06:00] LABS: Alanine Aminotransferase < 3 Units/L (7-52); Albumin/Globulin Ratio 1.1 (1.1-2.2); Alkaline Phosphatase 58 Units/L (34-104); Aspartate Amino Transferase 10 Units/L (13-39); BUN/Creatinine Ratio 8 (6-26); Bilirubin,Total 0.3 mg/dL (0.3-1.0); Blood Urea Nitrogen 71 mg/dL (6-20); Calcium 7.5 mg/dL (8.6-10.3); Carbon Dioxide 27 mEq/L (23-29); Chloride 91 mEq/L (98-107); Globulin 2.7 g/dL (2.4-3.5); Glucose 173 mg/dL (70-105); Magnesium 1.7 mg/dL (1.6-2.6); Osmolality,Calculated 311 (280-300); Phosphorous 7.4 mg/dL (2.7-4.5); Potassium 4.8 mEq/L (3.5-5.1); Sodium 138 mEq/L (136-145); Total Protein 5.7 g/dL (6.4-8.9); eGFR For African Americans 8 (> 60); eGFR For Non-African Americans 7 (> 60)
[2018-10-04] MEDS: traMADol 50 MG TABLET PO PRN ×2 (06:03→13:56)
[2018-10-04] MEDS: *HR* Heparin 5,000 UNIT/ML VIAL SQ SCH ×2 (06:05→18:34)
--- NOTE | 2018-10-04 08:45 | Cardiothoracic Progress Note ---
Date of Encounter: 10/04/18 Time of Encounter: 08:44 - Assessment and plan (1) Acute serous pleuritis Current Visit: Yes Status: Chronic The assessment and plan as outlined above was discussed with the patient and/or family members who expressed understanding and agreement. All questions were answered. s/p pleurectomy and pleurodesis. water seal today. chest xray in am. (2) ESRD (end stage renal disease) on dialysis Current Visit: No Status: Chronic The assessment and plan as outlined above was discussed with the patient and/or family members who expressed understanding and agreement. All questions were answered. dialysis today (3) Moderate protein-calorie malnutrition Current Visit: No Status: Chronic The assessment and plan as outlined above was discussed with the patient and/or family members who expressed understanding and agreement. All questions were answered. I would anticipate the patient would be able to eat better after we relieve his dyspnea at rest and on exertion. If you cannot breathe normally do not eat. - Subjective Interval history: can take a deeper breath. said thank you for doing surgery Oxgyen Flow Rate Oxygen Flow Rate (LPM) 3 Weight 10/02/18 10/03/18 10/04/18 23:59 23:59 23:59 Weight 96.9 kg - Physical Examination General: Conversant, No Apparent Distress, Well developed HEENT: Atraumatic, Normocephaly Cardiac: Other (irergular irregular. ) Incision: No signs of infection Chest tubes: Minimal drainage Lungs: Other (cta on the left. rub on the right base. ) Neuro: Alert and responsive, No focal deficits noted, Cranial nerves intact Abdomen: Soft, Non-tender - Labs 10/04/18 05:15 10/04/18 04:00 Lab Results, Last 24 hours 10/03/18 10/03/18 10/04/18 10:00 17:59 04:00 WBC Hgb 7.8 L Hct 23.7 L Plt Count Sodium 138 Potassium 4.8 Chloride 91 L Carbon Dioxide 27 BUN 71 H Creatinine 8.56 H Glucose 173 H Calcium 7.5 L Magnesium 1.7 Total Bilirubin 0.3 AST 10 L ALT < 3 L Alkaline Phosphatase 58 Lipase 12 10/04/18 05:15 WBC 8.2 Hgb 7.4 L Hct 22.1 L Plt Count 244 Sodium Potassium Chloride Carbon Dioxide BUN Creatinine Glucose Calcium Magnesium Total Bilirubin AST ALT Alkaline Phosphatase Lipase Consult Discharge Plan - Plan Referrals: NONE,PCP [Primary Care Provider] -
[2018-10-04] MEDS ORDERED: 0.9 % Sodium Chloride 250 ML IVC PRN (09:21)
[2018-10-04] MEDS: Isosorbide MONOnitrate (24 HR) 30 MG TAB.ER.24H PO SCH (09:54)
[2018-10-04] MEDS: Gabapentin 300 MG CAPSULE PO SCH (09:54)
[2018-10-04] MEDS: Insulin LISPRO 300 UNITS/3 ML VIAL SQ SCH ×4 (09:55→21:39)
[2018-10-04] MEDS: Ranolazine 500 MG TAB.ER.12H PO SCH ×2 (09:55→21:39)
[2018-10-04] MEDS: Sucralfate 1 GM TABLET PO SCH ×3 (09:55→17:30)
[2018-10-04] MEDS: Aspirin Enteric Coated 81 MG Tablet PO SCH (09:56)
--- NOTE | 2018-10-04 14:40 | Internal Med Progress Note ---
Hospitalist Progress Note - Encounter Date of Encounter: 10/04/18 Time of Encounter: 14:29 - Subjective Interval History: ptient is seen and examined, pain is better getting HD today tolerated diet, on 2 L NC today before HD - Exam Vitals: Temp Pulse Resp BP Pulse Ox 98.8 F 81 18 130/72 95 10/04/18 14:15 10/04/18 14:15 10/04/18 14:15 10/04/18 14:15 10/04/18 14:01 Exam: Physical examination: Gen.: Patient is alert and oriented, not in respiratory distress of pain HEENT: perrla , EOMI, no thyroid gland enlargement, no neck mass, supple neck Heart: S1 and S2 rodney, normal sinus rhythm, no cardiac murmur no gallop rhythm Chest: Air entry equal bilaterally, clear chest, no wheezing, crackles or crepitation, chest tube placement noted Abdomen: Soft, upper abdomen tenderness on palpation without rigidity, non distended positive bowel sounds, Extremities: No pitting edema, peripheral pulses palpable, no cyanosis tenderness Neuro: Able to move all 4 limbs, no focal neurological deficit. DVT Prophylaxis: On sq heparin - Summary of Assessment and Plan Summary of Assessment and Plan: Mr. Hernandez is a 53 year old male Patient presented to the emergency room with increased shortness of breath. He has recently been in the hospital, and discharged on September 21. He has been inconsistent with his dialysis sessions, he has end-stage renal disease with multiple admissions for shortness of breath and fluid overload. He has required thoracentesis in the past. His brother who lives in another state was recently injured, and the patient has been traveling back and forth to help him. He has missed some dialysis sessions, but states over the last week he was compliant. However, after his dialysis sessions, he says that he gets very weak and he has continued shortness of breath. He returned to the emergency room for evaluation. patient waas admitted on 09/27 for SOB and right sided chest pain (1) Acute on chronic combined systolic and diastolic CHF, TTE showed EF 55% in 08/2018, improved with HD and lasix Current Visit: Yes Status: Acute (2) Recurrent right pleural effusion,and acute pleuritis, CTS was consulted, s/p thoracoscopy, pleurectomy and pleurodesis today, tolerated well. continue drains to suction through the weekend, water seal today, possible remove CT tomorrow CT surgery is following appreciate 3- acute blood loss anemia: Most likely postoperative blood loss Hemoglobin this morning 7.5 up from 6.5 s/p 1 unit PRBC monitor CBC daily (3) ESRD on HD MWF , nephrology is on board Current Visit: No Status: Acute (4) Hyperkalemia: resolved afte HD Current Visit: No Status: Acute (5) CAD s/p CABG Coronary artery disease: Patient had triple-vessel coronary artery disease per left heart catheterization done in May 2018. Nephrology recommends cardiothoracic surgeon consultation due to recurrent episodes of dyspnea and chest pain. CTS was conuslted, recommended medical management Mild troponin elevation. Adynamic. Continue aspirin, Plavix and statin. Continue Ranexa and Imdur for chest pain. Current Visit: Yes Status: Chronic (6) Bilateral leg ulcer, chronic , secondary to chronic venous stasis Current Visit: No Status: Chronic (7) Elevated troponin, adynamic: Patient has chronic troponin elevation since April 2018 she denied chest pain Current Visit: No Status: Acute (8) Dyspnea Current Visit: No Status: Acute (9) DM type 2, conitnue insulin regimen (10) Hypertension, pressure acceptable on current blood pressure medication Current Visit: Yes Status: Chronic (11) uper abdominal pain: negative CT abdomen, pain resolved Disposition: SNF per case picker discussion in 1-2 days. - Time Spent with Patient Total time spent is greater than 50% in coordination of care (as documented) at patient's floor/unit and/or counseling patient: 25 - 35 minutes Plan of Care Discussed with: patient Internal Medicine: Result - Labs CBC & Chem 7: 10/04/18 05:15 10/04/18 04:00 Labs: Short CBC 10/03/18 10/04/18 Range/Units 17:59 05:15 WBC 8.2 (4.3-11.1) K/mcL Hgb 7.8 L 7.4 L (12.9-16.9) g/dL Hct 23.7 L 22.1 L (37.5-50.1) % Plt Count 244 (140-400) K/mcL BMP 10/04/18 04:00 Sodium 138 Potassium 4.8 Chloride 91 L Carbon Dioxide 27 BUN 71 H Creatinine 8.56 H Glucose 173 H Calcium 7.5 L Liver Function 10/04/18 Range/Units 04:00 Total Bilirubin 0.3 (0.3-1.0) mg/dL AST 10 L (13-39) Units/L ALT < 3 L (7-52) Units/L Alkaline Phosphatase 58 (34-104) Units/L Albumin 3.0 L (3.5-5.7) g/dL - ABG Interpretation ABG results: PT/INR, D-dimer PT 11.8 Seconds (9.4-12.1) 09/26/18 19:03 - Impressions Impressions Abdomen/Pelvis CT 10/03/18 09:09 IMPRESSION: Small pneumothorax at the right lung base, with 2 right-sided chest tubes in place. Likely small hemothorax at the posterior right lung base. No acute abnormality in the abdomen. Mild bladder wall thickening, may be related to cystitis or sequela of chronic bladder outlet obstruction. D/ / Vamshi Chacon MD / Vamshi Chacon MD Interpreting Provider: Vamshi Chacon MD Chest X-Ray 10/04/18 06:00 IMPRESSION: No significant change in the appearance of the chest. D/ / Keegan Cheek MD / Keegan Cheek MD Interpreting Provider: Keegan Cheek MD Scrotum Ultrasound 10/04/18 07:30 IMPRESSION: 1. No evidence for testicular torsion. No focal lesions in the testis. 2. Bilateral subcentimeter epididymal cysts. 3. No hydrocele. D/ / Kory Chin MD / Kory Chin MD Interpreting Provider: Kory Chin MD Consult Discharge Plan - Plan Referrals: NONE,PCP [Primary Care Provider] -
--- NOTE | 2018-10-04 16:33 | Nephrology Progress Note ---
Date of Encounter: 10/04/18 Time of Encounter: 12:00 - Assessment and Plan (1) Pleural effusion Current Visit: No Status: Resolved s/p pleurodesis by Dr Koch, CTS recs appreciated Chest tube drainage decreasing (2) ESRD (end stage renal disease) Current Visit: Yes Status: Chronic Hd planned today with UF goal of 3kg as tolerated Continue renal diet Continue fluid restriction Calcium noted low at 7.5 but corrected for albumin of 2.9 approx. 8.3. (3) Anemia in chronic kidney disease Current Visit: No Status: Chronic Hgb noted at 7.4, will give 1 unit pRBCs with Hd today Transfusion parameters per primary team Qualifiers: Chronic kidney disease stage: on chronic dialysis Qualified Code(s): N18.6 - End stage renal disease; D63.1 - Anemia in chronic kidney disease; Z99.2 - Dependence on renal dialysis (4) CAD (coronary artery disease) Current Visit: Yes Status: Chronic 3vessel CAD not amenable to intervention per CTS Qualifiers: Coronary Disease-Associated Artery/Lesion type: [place] artery [place] vs. 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 needs sodium thiosulfate but apparently refusing (7) Obesity (BMI 30.0-34.9) Current Visit: No Status: Chronic (8) Congestive heart failure Current Visit: Yes Status: Acute Qualifiers: Heart failure type: combined systolic and diastolic Heart failure chronicity: acute on chronic Qualified Code(s): I50.43 - Acute on chronic combined systolic (congestive) and diastolic (congestive) heart failure Subjective Principal diagnosis: esrd Interval history: Pt seen and examined doing well with no new complaints Objective - Vital Signs Vital signs: Vital Signs Temp Pulse Resp BP Pulse Ox 10/04/18 16:13 98.7 F 18 121/49 10/04/18 15:45 111/69 10/04/18 15:30 106/76 10/04/18 15:15 136/70 10/04/18 15:04 98.9 F 78 20 148/76 10/04/18 15:00 148/76 10/04/18 14:45 138/76 10/04/18 14:30 125/76 10/04/18 14:15 98.8 F 81 18 130/72 10/04/18 14:01 98.0 F 79 18 121/49 95 10/04/18 14:00 121/49 10/04/18 13:45 139/75 10/04/18 13:30 159/70 10/04/18 13:15 142/70 10/04/18 13:00 149/65 10/04/18 12:45 170/77 10/04/18 12:30 146/96 10/04/18 12:15 98.6 F 18 142/72 10/04/18 11:53 98.6 F 74 16 138/74 94 10/04/18 09:45 98.8 F 80 16 125/78 100 10/04/18 04:05 98.5 F 90 17 133/57 94 10/03/18 23:50 98.5 F 78 17 152/69 99 10/03/18 21:34 98.0 F 76 16 179/91 97 Intake and Output 10/04/18 10/04/18 10/04/18 07:59 15:59 23:59 Intake Total 1190 / 1190 Output Total 30 / 3980 3950 / 3980 Balance 1160 / -2790 -3950 / -2790 Intake: Oral 240 / 240 Blood Product 350 / 350 Rbcs Leuko Poor As-1 Unit 350 / 350 [id number] Intake, Rinseback and Flushes 600 / 600 Output: Urine 0 / 0 Total Dialysis (HD) Output 3950 / 3950 Chest Tube Drainage 30 / 30 Right Lateral Chest 30 / 30 Other: Meal Breakfast Percent of Meal Consumed 100% Blood Glucose* 169 140 Hemodialysis Net Fluid Removed 3950 3000 (mL) - General Appearance General appearance: Present: chronically ill (NAD) EENT: Present: ATNC, mucous membranes moist Neck: Present: no JVD, supple Respiratory: Present: clear (chest tube in place) Cardiology: Present: no edema, normal S1, normal S2 Dialysis Vascular Access: Arteriovenous Fistula thrill: Yes bruit: Yes Gastrointestinal: Present: no tenderness, no guarding Integumentary: Present: warm and dry Neurologic: Present: no focal deficit Musculoskeletal: Present: no deformities Psychiatric: Present: mood/affect appropriate - Lab 10/04/18 05:15 10/04/18 04:00 Most recent lab results 10/04/18 04:00 Calcium 7.5 L Phosphorus 7.4 H Magnesium 1.7 Consult Discharge Plan - Plan Referrals: NONE,PCP [Primary Care Provider] -
[2018-10-04] MEDS: Gabapentin 100 MG CAPSULE PO SCH ×2 (17:29→21:39)
[2018-10-04] MEDS: rOPINIRole 0.25 MG TABLET PO SCH (21:40)
[2018-10-05 04:46] LABS: Basophils % 0.1 %; Eosinophils # 0.2 K/mcL (0.0-0.6); Eosinophils % 1.8 %; Hematocrit 24.8 % (37.5-50.1); Hemoglobin 8.4 g/dL (12.9-16.9); Immature Granulocytes % 0.7 % (0-4); Lymphocytes # 1.7 K/mcL (0.6-4.6); Lymphocytes % 19.2 %; Mean Corpuscular HGB Conc 33.9 g/dL (31.6-35.5); Mean Corpuscular Hemoglobin 29.9 pg (28.0-33.3); Mean Corpuscular Volume 88.3 fL (83.0-100.0); Mean Platelet Volume 8.5 fL (9.4-12.4); Monocytes # 0.8 K/mcL (0.0-1.3); Monocytes % 8.8 %; Neutrophils # 6.1 K/mcL (1.6-8.9); Platelet Count 225 K/mcL (140-400); Red Blood Count 2.81 M/mcL (4.19-5.50); Red Cell Distribution Width 14.6 % (11.5-14.5); Segmented Neutrophils % 69.4 %; White Blood Count 8.7 K/mcL (4.3-11.1)
[2018-10-05 05:05] LABS: Calcium 7.9 mg/dL (8.6-10.3); Potassium 4.8 mEq/L (3.5-5.1)
[2018-10-05] MEDS: *HR* Heparin 5,000 UNIT/ML VIAL SQ SCH ×2 (06:03→16:42)
[2018-10-05] MEDS: Sucralfate 1 GM TABLET PO SCH ×3 (08:10→16:42)
[2018-10-05] MEDS: Gabapentin 100 MG CAPSULE PO SCH ×3 (08:10→21:37)
[2018-10-05] MEDS: Aspirin Enteric Coated 81 MG Tablet PO SCH (08:10)
[2018-10-05] MEDS: Isosorbide MONOnitrate (24 HR) 30 MG TAB.ER.24H PO SCH (08:10)
[2018-10-05] MEDS: Ranolazine 500 MG TAB.ER.12H PO SCH ×2 (08:10→21:36)
[2018-10-05] MEDS: Insulin LISPRO 300 UNITS/3 ML VIAL SQ SCH ×4 (08:11→21:37)
[2018-10-05] MEDS: *HR* HYDROcodone/Acet 5/325 mg TABLET PO PRN ×2 (08:18→21:36)
--- NOTE | 2018-10-05 10:00 | Cardiothoracic Progress Note ---
Date of Encounter: 10/05/18 Time of Encounter: 09:58 - Assessment and plan (1) Acute serous pleuritis Current Visit: Yes Status: Chronic The assessment and plan as outlined above was discussed with the patient and/or family members who expressed understanding and agreement. All questions were answered. s/p pleurectomy and pleurodesis. roiunded with hospitalist. would like to see the character of the fluid more serous before removing the chest tube. (2) ESRD (end stage renal disease) on dialysis Current Visit: No Status: Chronic The assessment and plan as outlined above was discussed with the patient and/or family members who expressed understanding and agreement. All questions were answered. dialysis m,w,f - Subjective Interval history: can take a deeper breath. Vital Signs, Last 4 Hours Temp Pulse Resp BP Pulse Ox 10/05/18 07:44 98.0 F 77 17 152/73 95 Oxgyen Flow Rate Oxygen Flow Rate (LPM) 3 Clinical Data, last 8 Hours Output, Chest Tube Drainage 30 Amount [Right Lateral Chest] Output, Urine Amount 0 - Physical Examination General: Conversant, No Apparent Distress, Well developed, Well nourished HEENT: Atraumatic, Normocephaly Cardiac: Other (irregular ) Incision: No signs of infection, Dry/intact dressing Chest tubes: Minimal drainage, Crepitus Lungs: Other (cta except rubs/crackles at the right base ) Neuro: Alert and responsive, No focal deficits noted, Cranial nerves intact, Motor nerves intact Abdomen: Soft, Non-tender, Other (bm last night. ) - Labs 10/05/18 04:28 10/05/18 04:28 Lab Results, Last 24 hours 10/05/18 10/05/18 04:28 04:28 WBC 8.7 Hgb 8.4 L Hct 24.8 L Plt Count 225 Sodium 141 Potassium 4.8 Chloride 92 L Carbon Dioxide 24 BUN 58 H Creatinine 6.62 H Glucose 194 H Calcium 7.9 L - Imaging Chest Xray: image reviewed Consult Discharge Plan - Plan Referrals: NONE,PCP [Primary Care Provider] -
--- NOTE | 2018-10-05 11:26 | Internal Med Progress Note ---
Hospitalist Progress Note - Encounter Date of Encounter: 10/05/18 Time of Encounter: 11:24 - Subjective Interval History: patient still has dark bllody drainage from chest tube, he feels at baseline, dose not want to go to SNF discussed with Dr Koch, CT is not ready to come out, would like to see the color more light - Exam Vitals: Temp Pulse Resp BP Pulse Ox 98.0 F 77 17 152/73 95 10/05/18 07:44 10/05/18 07:44 10/05/18 07:44 10/05/18 07:44 10/05/18 07:44 Exam: Physical examination: Gen.: Patient is alert and oriented, not in respiratory distress of pain HEENT: perrla , EOMI, no thyroid gland enlargement, no neck mass, supple neck Heart: S1 and S2 rodney, normal sinus rhythm, no cardiac murmur no gallop rhythm Chest: Air entry equal bilaterally, clear chest, no wheezing, crackles or crepitation, chest tube placement noted Abdomen: Soft, upper abdomen tenderness on palpation without rigidity, non distended positive bowel sounds, Extremities: No pitting edema, peripheral pulses palpable, no cyanosis tenderness Neuro: Able to move all 4 limbs, no focal neurological deficit. DVT Prophylaxis: On sq heparin - Summary of Assessment and Plan Summary of Assessment and Plan: Mr. Hernandez is a 53 year old male Patient presented to the emergency room with increased shortness of breath. He has recently been in the hospital, and discharged on September 21. He has been inconsistent with his dialysis sessions, he has end-stage renal disease with multiple admissions for shortness of breath and fluid overload. He has required thoracentesis in the past. His brother who lives in another state was recently injured, and the patient has been traveling back and forth to help him. He has missed some dialysis sessions, but states over the last week he was compliant. However, after his dialysis sessions, he says that he gets very weak and he has continued shortness of breath. He returned to the emergency room for evaluation. patient waas admitted on 09/27 for SOB and right sided chest pain (1) Acute on chronic combined systolic and diastolic CHF, TTE showed EF 55% in 08/2018, improved with HD and lasix Current Visit: Yes Status: Acute (2) Recurrent right pleural effusion,and acute pleuritis, CTS was consulted, s/p thoracoscopy, pleurectomy and pleurodesis today, tolerated well. continue drains to suction through the weekend, water seal today, p CT surgery is following appreciate discussed with Dr Koch, CT is not ready to come out yet, would brieley to see the fluid color more serous before removing chest tube 3- acute blood loss anemia: Most likely postoperative blood loss Hemoglobin this morning 7.5 up from 6.5 s/p 1 unit PRBC monitor CBC daily (3) ESRD on HD MWF , nephrology is on board Current Visit: No Status: Acute (4) Hyperkalemia: resolved afte HD Current Visit: No Status: Acute (5) CAD s/p CABG Coronary artery disease: Patient had triple-vessel coronary artery disease per left heart catheterization done in May 2018. Nephrology recommends cardiothoracic surgeon consultation due to recurrent episodes of dyspnea and chest pain. CTS was conuslted, recommended medical management Mild troponin elevation. Adynamic. Continue aspirin, Plavix and statin. Continue Ranexa and Imdur for chest pain. Current Visit: Yes Status: Chronic (6) Bilateral leg ulcer, chronic , secondary to chronic venous stasis Current Visit: No Status: Chronic (7) Elevated troponin, adynamic: Patient has chronic troponin elevation since April 2018 she denied chest pain Current Visit: No Status: Acute (8) Dyspnea Current Visit: No Status: Acute (9) DM type 2, conitnue insulin regimen (10) Hypertension, pressure acceptable on current blood pressure medication Current Visit: Yes Status: Chronic (11) uper abdominal pain: negative CT abdomen, pain resolved Disposition: patient does not want to go to SNF, discharge in 1-2 days SNF VS home - Time Spent with Patient Total time spent is greater than 50% in coordination of care (as documented) at patient's floor/unit and/or counseling patient: Internal Medicine: Result - Labs CBC & Chem 7: 10/05/18 04:28 10/05/18 04:28 Labs: Short CBC 10/05/18 Range/Units 04:28 WBC 8.7 (4.3-11.1) K/mcL Hgb 8.4 L (12.9-16.9) g/dL Hct 24.8 L (37.5-50.1) % Plt Count 225 (140-400) K/mcL Neutrophils # 6.1 (1.6-8.9) K/mcL BMP 10/05/18 04:28 Sodium 141 Potassium 4.8 Chloride 92 L Carbon Dioxide 24 BUN 58 H Creatinine 6.62 H Glucose 194 H Calcium 7.9 L - ABG Interpretation ABG results: PT/INR, D-dimer PT 11.8 Seconds (9.4-12.1) 09/26/18 19:03 - Impressions Impressions Chest X-Ray 10/05/18 08:00 IMPRESSION: No apparent pneumothorax. Stable thoracostomy tube positioning. Unchanged right pleural effusion. D/ / Kleber Pollack / Kleber Pollack Interpreting Provider: Kleber Pollack Consult Discharge Plan - Plan Referrals: NONE,PCP [Primary Care Provider] -
[2018-10-05] MEDS: rOPINIRole 0.25 MG TABLET PO SCH (21:36)
--- NOTE | 2018-10-05 22:21 | Nephrology Progress Note ---
Date of Encounter: 10/05/18 - Assessment and Plan (1) Pleural effusion Current Visit: No Status: Resolved (2) ESRD (end stage renal disease) Current Visit: Yes Status: Chronic (3) Anemia in chronic kidney disease Current Visit: No Status: Chronic Qualifiers: Chronic kidney disease stage: on chronic dialysis Qualified Code(s): N18.6 - End stage renal disease; D63.1 - Anemia in chronic kidney disease; Z99.2 - Dependence on renal dialysis (4) CAD (coronary artery disease) Current Visit: Yes Status: Chronic Qualifiers: Coronary Disease-Associated Artery/Lesion type: [place] artery [place] vs. 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 (7) Obesity (BMI 30.0-34.9) Current Visit: No Status: Chronic (8) Congestive heart failure Current Visit: Yes Status: Acute Qualifiers: Heart failure type: combined systolic and diastolic Heart failure seal mixer nicity: acute on chronic Qualified Code(s): I50.43 - Acute on chronic combined systolic (congestive) and diastolic (congestive) heart failure Subjective Principal diagnosis: esrd Interval history: Pt seen and examined doing well with no new complaints Objective - Vital Signs Vital signs: Vital Signs Temp Pulse Resp BP Pulse Ox 10/05/18 19:58 98.7 F 80 17 134/65 97 10/05/18 16:11 98.1 F 75 16 109/58 97 10/05/18 11:33 98.2 F 75 16 120/63 98 10/05/18 07:44 98.0 F 77 17 152/73 95 10/05/18 05:30 98.3 F 76 17 103/56 97 10/05/18 00:45 98.4 F 78 16 107/64 98 Intake and Output 10/05/18 10/05/18 10/05/18 07:59 15:59 23:59 Intake Total 600 / 600 Output Total 130 / 370 40 / 370 200 / 370 Balance -130 / 230 560 / 230 -200 / 230 Intake: Oral 600 / 600 Output: Urine 0 / 0 0 / 0 Straight Cath 100 / 100 Catheter 200 / 200 Chest Tube Drainage 30 / 70 40 / 70 Right Lateral Chest 30 / 70 40 / 70 Other: Meal Lunch Percent of Meal Consumed 100% Blood Glucose* 186 174 285 - Lab 10/05/18 04:28 10/05/18 04:28 Consult Discharge Plan - Plan Referrals: NONE,PCP [Primary Care Provider] -
[2018-10-06 04:49] LABS: Hematocrit 25.9 % (37.5-50.1); Hemoglobin 8.5 g/dL (12.9-16.9); Mean Corpuscular HGB Conc 32.8 g/dL (31.6-35.5); Mean Corpuscular Hemoglobin 29.5 pg (28.0-33.3); Mean Corpuscular Volume 89.9 fL (83.0-100.0); Mean Platelet Volume 8.8 fL (9.4-12.4); Platelet Count 249 K/mcL (140-400); Red Blood Count 2.88 M/mcL (4.19-5.50); Red Cell Distribution Width 14.7 % (11.5-14.5)
[2018-10-06 05:05] LABS: Calcium 8.1 mg/dL (8.6-10.3); Potassium 4.6 mEq/L (3.5-5.1)
[2018-10-06] MEDS: *HR* Heparin 5,000 UNIT/ML VIAL SQ SCH ×2 (05:55→16:38)
[2018-10-06] MEDS ORDERED: 0.9 % Sodium Chloride 250 ML IVC PRN (08:15)
--- NOTE | 2018-10-06 08:36 | Cardiothoracic Progress Note ---
Date of Encounter: 10/06/18 Time of Encounter: 08:35 - Assessment and plan (1) Acute serous pleuritis Current Visit: Yes Status: Chronic The assessment and plan as outlined above was discussed with the patient and/or family members who expressed understanding and agreement. All questions were answered. s/p pleurectomy and pleurodesis. would like to see the character of the fluid more serous before removing the chest tube. (2) ESRD (end stage renal disease) on dialysis Current Visit: No Status: Chronic The assessment and plan as outlined above was discussed with the patient and/or family members who expressed understanding and agreement. All questions were answered. dialysis m,w,f - Subjective Interval history: can take a deeper breath. Vital Signs, Last 4 Hours Temp Pulse Resp BP Pulse Ox 10/06/18 07:29 98.4 F 79 18 174/81 96 Oxgyen Flow Rate Oxygen Flow Rate (LPM) 3 Clinical Data, last 8 Hours Output, Chest Tube Drainage 20 Amount [Right Lateral Chest] Output, Chest Tube Drainage 10 Amount [Right Lateral Chest] Weight 10/04/18 10/05/18 10/06/18 23:59 23:59 23:59 Weight 97.1 kg - Physical Examination General: Conversant, No Apparent Distress, Well developed HEENT: Atraumatic, Normocephaly Cardiac: Reg Rate and Rhythm Incision: No signs of infection, Other (changed dressings. ) Lungs: Decreased breath sounds Neuro: Alert and responsive, No focal deficits noted, Cranial nerves intact - Labs 10/06/18 03:55 10/06/18 03:55 Lab Results, Last 24 hours 10/06/18 10/06/18 03:55 03:55 WBC 10.0 Hgb 8.5 L Hct 25.9 L Plt Count 249 Sodium 141 Potassium 4.6 Chloride 91 L Carbon Dioxide 22 L BUN 86 H Creatinine 8.69 H Glucose 118 H Calcium 8.1 L Consult Discharge Plan - Plan Referrals: NONE,PCP [Primary Care Provider] -
[2018-10-06] MEDS: Ranolazine 500 MG TAB.ER.12H PO SCH ×2 (09:05→21:36)
[2018-10-06] MEDS: Sucralfate 1 GM TABLET PO SCH ×3 (09:05→15:14)
[2018-10-06] MEDS: Gabapentin 100 MG CAPSULE PO SCH ×3 (09:05→21:36)
[2018-10-06] MEDS: Aspirin Enteric Coated 81 MG Tablet PO SCH (09:05)
[2018-10-06] MEDS: Insulin LISPRO 300 UNITS/3 ML VIAL SQ SCH ×4 (09:06→21:21)
--- NOTE | 2018-10-06 15:02 | Internal Med Progress Note ---
Hospitalist Progress Note - Encounter Date of Encounter: 10/06/18 Time of Encounter: 15:00 - Subjective Interval History: I have seen and evaluated the patient at bedside. Patient denied chest pain, shortness of breath, abdominal pain, nausea vomiting. - Exam Vitals: Temp Pulse Resp BP Pulse Ox 97.7 F 79 18 139/76 96 10/06/18 09:00 10/06/18 07:29 10/06/18 09:00 10/06/18 12:00 10/06/18 07:29 Exam: Vitals: Reviewed General: Alert and oriented x4. in mild distress due to chest tub discomfort Cardiovascular: RRR, normal S1 & S2, no rubs, murmurs or gallops. Lungs: rales on the right lung, no wheezes or crackles. right chest tube in place Abdomen: Obese, soft, non-tender, no rigidity. Extremities: No deformity, no edema or tenderness, no joint swelling or clubbing. clean dressing in the lower extr b/l. Neurological: Normal cognition and motor skills. Rest of the physical exam is non contributory - Assessment and Plan (1) Acute serous pleuritis Current Visit: Yes Status: Chronic Assessment and Plan: s/p pleurectomy and pleurodesis. chest tube management per CT surgery. on [place] 5/325mg/PO Q4HR for pain control. (2) Diabetes Current Visit: Yes Status: Chronic Assessment and Plan: Blood sugar is well controlled on lispro low-dose sliding scale before meals and at bedtime. Carbs controlled diet. (3) ESRD (end stage renal disease) Current Visit: Yes Status: Chronic Assessment and Plan: Avoid nephrotoxic medication. renal replacement therapy per nephrology recommendations. daily weight and strict intake and output (4) CAD (coronary artery disease) Current Visit: Yes Status: Chronic Assessment and Plan: On aspirin 81 mg by mouth daily. On ranolazine 1000mg/PO Q12HRs (5) Bilateral leg ulcer Current Visit: No Status: Chronic (6) Dyspnea Current Visit: No Status: Acute (7) Congestive heart failure Current Visit: Yes Status: Chronic Assessment and Plan: Patient is euvolemic. Total negative balance of 12 litters. Patient is on a beta jesse, and isosorbide. Fluid restriction to 1.5 L a day. DVT Prophylaxis: On heparin subcutaneous. - Summary of Assessment and Plan Summary of Assessment and Plan: patient to remain in the hospital CT still in place. - Time Spent with Patient Total time spent is greater than 50% in coordination of care (as documented) at patient's floor/unit and/or counseling patient: Greater than 35 minutes (40) Plan of Care Discussed with: patient (and the nurse.) Internal Medicine: Result - Labs CBC & Chem 7: 10/06/18 03:55 10/06/18 03:55 Labs: Short CBC 10/06/18 Range/Units 03:55 WBC 10.0 (4.3-11.1) K/mcL Hgb 8.5 L (12.9-16.9) g/dL Hct 25.9 L (37.5-50.1) % Plt Count 249 (140-400) K/mcL BMP 10/06/18 03:55 Sodium 141 Potassium 4.6 Chloride 91 L Carbon Dioxide 22 L BUN 86 H Creatinine 8.69 H Glucose 118 H Calcium 8.1 L - ABG Interpretation ABG results: PT/INR, D-dimer PT 11.8 Seconds (9.4-12.1) 09/26/18 19:03 Consult Discharge Plan - Plan Referrals: NONE,PCP [Primary Care Provider] - (2) Diabetes Qualifiers: Diabetes mellitus type: type 2 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 transplanted heart: [place] heart Associated angina: without angina Qualified Code(s): I25.10 - Atherosclerotic heart disease of [place] coronary artery without angina pectoris (5) Bilateral leg ulcer Qualifiers: Non-pressure ulcer stage: unspecified non-pressure ulcer stage Qualified Code(s): L97.919 - Non-pressure chronic ulcer of unspecified part of right lower leg with unspecified severity; L97.929 - Non-pressure chronic ulcer of unspecified part of left lower leg with unspecified severity (6) Dyspnea Qualifiers: Dyspnea type: unspecified Qualified Code(s): R06.00 - Dyspnea, unspecified (7) Congestive heart failure Qualifiers: Heart failure type: combined systolic and diastolic Heart failure chronicity: chronic Qualified Code(s): I50.42 - Chronic combined systolic (congestive) and diastolic (congestive) heart failure
[2018-10-06] MEDS: Isosorbide MONOnitrate (24 HR) 30 MG TAB.ER.24H PO SCH (15:14)
[2018-10-06] MEDS: *HR* HYDROcodone/Acet 5/325 mg TABLET PO PRN (15:25)
[2018-10-06] MEDS: rOPINIRole 0.25 MG TABLET PO SCH (21:36)
[2018-10-06] MEDS: traMADol 50 MG TABLET PO PRN (21:36)
--- NOTE | 2018-10-06 23:03 | Nephrology Progress Note ---
Date of Encounter: 10/06/18 Time of Encounter: 12:00 - Assessment and Plan (1) Pleural effusion Current Visit: No Status: Resolved s/p pleurodesis by Dr Koch, CTS recs appreciated Chest tube drainage decreasing (2) ESRD (end stage renal disease) Current Visit: Yes Status: Chronic Continue HD with UF as tolerated [place] stable Continue fluid restriction (3) Anemia in chronic kidney disease Current Visit: No Status: Chronic Hgb noted at 8.5, stable Transfusion parameters per primary team Qualifiers: Chronic kidney disease stage: on chronic dialysis Qualified Code(s): N18.6 - End stage renal disease; D63.1 - Anemia in chronic kidney disease; Z99.2 - De pendence on renal dialysis (4) CAD (coronary artery disease) Current Visit: Yes Status: Chronic 3vessel CAD not amenable to intervention per CTS Qualifiers: Coronary Disease-Associated Artery/Lesion type: [place] artery [place] vs. transplanted heart: [place] heart Associated angina: without angina Qualified Code(s): I25.10 - Atherosclerotic heart disease of [place] coronary artery without angina pectoris (5) Elevated troponin Current Visit: No Status: Acute (6) Calciphylaxis Current Visit: No Status: Chronic (7) Obesity (BMI 30.0-34.9) Current Visit: No Status: Chronic (8) Congestive heart failure Current Visit: Yes Status: Chronic Qualifiers: Heart failure type: combined systolic and diastolic Heart failure chronicity: chronic Qualified Code(s): I50.42 - Chronic combined systolic (congestive) and diastolic (congestive) heart failure Subjective Principal diagnosis: esrd Interval history: Pt seen and examined on HD with chest tube still in place. Pt complainign of dizziness and nausea despite BP readings in 120-140s systolic during HD. Objective - Vital Signs Vital signs: Vital Signs Temp Pulse Resp BP Pulse Ox 10/06/18 21:17 98.7 F 79 19 95/60 95 10/06/18 16:29 99.2 F 81 19 147/77 96 10/06/18 12:48 98.6 F 18 138/84 10/06/18 12:30 126/79 10/06/18 12:15 126/74 10/06/18 12:00 139/76 10/06/18 11:45 134/78 10/06/18 11:30 149/82 10/06/18 11:15 114/71 10/06/18 11:00 119/71 10/06/18 10:45 123/71 10/06/18 10:30 127/76 10/06/18 10:15 148/81 10/06/18 10:00 155/83 10/06/18 09:45 161/84 10/06/18 09:30 168/86 10/06/18 09:15 178/90 10/06/18 09:00 97.7 F 18 155/83 10/06/18 07:29 98.4 F 79 18 174/81 96 10/06/18 04:23 98.3 F 72 16 106/62 98 10/06/18 01:02 98.9 F 78 16 130/68 98 Intake and Output 10/06/18 10/06/18 10/06/18 07:59 15:59 23:59 Intake Total 940 / 1417 477 / 1417 Output Total 30 / 3560 3180 / 3560 350 / 3560 Balance -30 / -2143 -2240 / -2143 127 / -2143 Intake: Oral 340 / 817 477 / 817 Intake, Rinseback and Flushes 600 / 600 Output: Urine 0 / 0 0 / 0 Total Dialysis (HD) Output 3100 / 3100 Catheter 0 / 350 350 / 350 Chest Tube Drainage 30 / 110 80 / 110 0 / 110 Right Lateral Chest 30 / 110 80 / 110 0 / 110 Other: Meal Lunch Dinner Percent of Meal Consumed 0% 100% Stool Size Large Stool Consistency soft Stool Characteristics Normal for Patient Stool Color Brown # Voids 1 # Bowel Movements 1 Weight 97.1 kg Blood Glucose* 180 127 193 Hemodialysis Net Fluid Removed 2500 (mL) Patient Weight 10/06/18 23:59 Weight 97.1 kg - General Appearance General appearance: Present: chronically ill, fatigue EENT: Present: ATNC, mucous membranes moist Neck: Present: no JVD, supple Additional Comments: good areation ant bilat Cardiology: Present: no edema, normal S1, normal S2 Dialysis Vascular Access: Arteriovenous Fistula thrill: Yes bruit: Yes Gastrointestinal: Present: no tenderness, no guarding Integumentary: Present: warm and dry Neurologic: Present: no focal deficit Musculoskeletal: Present: no deformities Psychiatric: Present: depressed - Lab 10/06/18 03:55 10/06/18 03:55 Consult Discharge Plan - Plan Referrals: NONE,PCP [Primary Care Provider] -
[2018-10-07 04:31] LABS: Hematocrit 25.4 % (37.5-50.1); Hemoglobin 8.4 g/dL (12.9-16.9); Mean Corpuscular HGB Conc 33.1 g/dL (31.6-35.5); Mean Corpuscular Hemoglobin 29.7 pg (28.0-33.3); Mean Corpuscular Volume 89.8 fL (83.0-100.0); Mean Platelet Volume 8.4 fL (9.4-12.4); Platelet Count 212 K/mcL (140-400); Red Blood Count 2.83 M/mcL (4.19-5.50); Red Cell Distribution Width 14.7 % (11.5-14.5); White Blood Count 9.5 K/mcL (4.3-11.1)
[2018-10-07 04:45] LABS: Calcium 8.5 mg/dL (8.6-10.3)
[2018-10-07] MEDS: *HR* Heparin 5,000 UNIT/ML VIAL SQ SCH ×2 (06:04→17:52)
[2018-10-07] MEDS: Ranolazine 500 MG TAB.ER.12H PO SCH ×2 (07:40→20:50)
[2018-10-07] MEDS: Gabapentin 100 MG CAPSULE PO SCH ×3 (07:40→20:50)
[2018-10-07] MEDS: Sucralfate 1 GM TABLET PO SCH ×3 (07:41→17:10)
[2018-10-07] MEDS: Aspirin Enteric Coated 81 MG Tablet PO SCH (07:41)
[2018-10-07] MEDS: Insulin LISPRO 300 UNITS/3 ML VIAL SQ SCH ×4 (07:42→20:28)
[2018-10-07] MEDS: Isosorbide MONOnitrate (24 HR) 30 MG TAB.ER.24H PO SCH (07:45)
--- NOTE | 2018-10-07 08:08 | Cardiothoracic Progress Note ---
Date of Encounter: 10/07/18 Time of Encounter: 08:07 - Assessment and plan (1) Acute serous pleuritis Current Visit: Yes Status: Chronic The assessment and plan as outlined above was discussed with the patient and/or family members who expressed understanding and agreement. All questions were answered. s/p pleurectomy and pleurodesis. would like to see the character of the fluid more serous before removing the chest tube. removed excessive tape from chest tube dressings chest xray for the am (2) ESRD (end stage renal disease) on dialysis Current Visit: No Status: Chronic The assessment and plan as outlined above was discussed with the patient and/or family members who expressed understanding and agreement. All questions were answered. dialysis m,w,f Vital Signs, Last 4 Hours Temp Pulse Resp BP Pulse Ox 10/07/18 07:14 98.5 F 72 19 136/75 97 10/07/18 05:14 98.5 F 79 19 129/63 97 Oxgyen Flow Rate Oxygen Flow Rate (LPM) 0 Clinical Data, last 8 Hours Output, Chest Tube Drainage 0 Amount [Right Lateral Chest] Output, Chest Tube Drainage 0 Amount [Right Lateral Chest] Output, Chest Tube Drainage 10 Amount [Right Lateral Chest] Output, Urine Amount 0 Weight 10/05/18 10/06/18 10/07/18 23:59 23:59 23:59 Weight 97.1 kg - Physical Examination General: Conversant, No Apparent Distress, Well developed, Well nourished HEENT: Atraumatic, Normocephaly Cardiac: Reg Rate and Rhythm Lungs: Other (cta on the left. crackles/rub at the right base. ) Neuro: Alert and responsive, No focal deficits noted, Cranial nerves intact - Labs 10/07/18 04:15 10/07/18 04:15 Lab Results, Last 24 hours 10/07/18 10/07/18 04:15 04:15 WBC 9.5 Hgb 8.4 L Hct 25.4 L Plt Count 212 Sodium 141 Potassium 5.0 Chloride 93 L Carbon Dioxide 21 L BUN 62 H Creatinine 6.82 H Glucose 167 H Calcium 8.5 L Consult Discharge Plan - Plan Referrals: NONE,PCP [Primary Care Provider] -
--- NOTE | 2018-10-07 11:58 | Internal Med Progress Note ---
Hospitalist Progress Note - Encounter Date of Encounter: 10/07/18 Time of Encounter: 11:56 - Subjective Interval History: I have seen and evaluate the patient at bedside. reports feeling better, denies chest pain, shortness of breath or pain in the lower extr. denies abdominal pain. - Exam Vitals: Temp Pulse Resp BP Pulse Ox 98.5 F 88 16 136/75 98 10/07/18 11:51 10/07/18 11:51 10/07/18 11:51 10/07/18 07:14 10/07/18 11:51 Exam: Vitals: Reviewed General: Alert and oriented x4. no distress today Cardiovascular: RRR, normal S1 & S2, no rubs, murmurs or gallops. Lungs: decreased breath sounds, rales and mild crackles on the right lung, no wheezes. right chest tube in place Abdomen: Obese, soft, non-tender, no rigidity. NABS in all 4 quadrants Extremities: clean dressing in the lower extr b/l. Neurological: No focal neurological deficits Rest of the physical exam is non contributory - Assessment and Plan (1) Acute serous pleuritis Current Visit: Yes Status: Chronic Assessment and Plan: s/p pleurectomy and pleurodesis. chest tube management per CT surgery. continue norco 5/325mg/PO Q4HR for pain control. incentive spirometry and education ordered (2) Diabetes Current Visit: Yes Status: Chronic Assessment and Plan: Blood sugar is well controlled on lispro low-dose sliding scale before meals and at bedtime. Carbs controlled diet. levemir 5 units hs added (3) ESRD (end stage renal disease) Current Visit: Yes Status: Chronic Assessment and Plan: fluids restriction to 1.5 litters a day. renal replacement therapy per nephrology recommendations. daily weight and strict intake and output (4) CAD (coronary artery disease) Current Visit: Yes Status: Chronic Assessment and Plan: On aspirin 81 mg by mouth daily continue ranolazine 1000mg/PO Q12HRs (5) Bilateral leg ulcer Current Visit: No Status: Chronic Assessment and Plan: Patient has multiple non-infected wounds in his lower extremities. continue with wound care (6) Congestive heart failure Current Visit: Yes Status: Chronic Assessment and Plan: Patient not on acute exacerbation. On a fluid restricted diet to 1.5 L a day. Continue carvedilol and isosorbide. DVT Prophylaxis: On heparin subcutaneous. - Summary of Assessment and Plan Summary of Assessment and Plan: Patient to remain in the hospital chest tube is in place. - Time Spent with Patient Total time spent is greater than 50% in coordination of care (as documented) at patient's floor/unit and/or counseling patient: Greater than 35 minutes (40) Plan of Care Discussed with: patient (and the nurse.) Internal Medicine: Result - Labs CBC & Chem 7: 10/07/18 04:15 10/07/18 04:15 Labs: Short CBC 10/07/18 Range/Units 04:15 WBC 9.5 (4.3-11.1) K/mcL Hgb 8.4 L (12.9-16.9) g/dL Hct 25.4 L (37.5-50.1) % Plt Count 212 (140-400) K/mcL BMP 10/07/18 04:15 Sodium 141 Potassium 5.0 Chloride 93 L Carbon Dioxide 21 L BUN 62 H Creatinine 6.82 H Glucose 167 H Calcium 8.5 L - ABG Interpretation ABG results: PT/INR, D-dimer PT 11.8 Seconds (9.4-12.1) 09/26/18 19:03 Consult Discharge Plan - Plan Referrals: NONE,PCP [Primary Care Provider] - (2) Diabetes Qualifiers: Diabetes mellitus type: type 2 Diabetes mellitus [place] insulin use: without skilled nursing use Diabetes mellitus complication status: with kidney complications Diabetes mellitus complication detail: with chronic kidney disease Chronic kidney disease stage: on chronic dialysis Qualified Code(s): E11.22 - Type 2 diabetes mellitus with diabetic chronic kidney disease; N18.6 - End stage renal disease; Z99.2 - Dependence on renal dialysis (4) CAD (coronary artery disease) Qualifiers: Coronary Disease-Associated Artery/Lesion type: [place] artery [place] vs. transplanted heart: [place] heart Associated angina: without angina Qualified Code(s): I25.10 - Atherosclerotic heart disease of [place] coronary artery without angina pectoris (5) Bilateral leg ulcer Qualifiers: Non-pressure ulcer stage: unspecified non-pressure ulcer stage Qualified Code(s): L97.919 - Non-pressure chronic ulcer of unspecified part of right lower leg with unspecified severity; L97.929 - Non-pressure chronic ulcer of unspecified part of left lower leg with unspecified severity (6) Congestive heart failure Qualifiers: Heart failure type: combined systolic and diastolic Heart failure chronicity: chronic Qualified Code(s): I50.42 - Chronic combined systolic (congestive) and diastolic (congestive) heart failure
[2018-10-07] MEDS: *HR* HYDROcodone/Acet 5/325 mg TABLET PO PRN (12:24)
--- NOTE | 2018-10-07 18:23 | Nephrology Progress Note ---
Date of Encounter: 10/07/18 Time of Encounter: 12:00 - Assessment and Plan (1) ESRD (end stage renal disease) Current Visit: Yes Status: Chronic s/p HD yesterday, next tomorrow Lytes stable Continue fluid restriction Continue renal diet (2) Pleural effusion Current Visit: No Status: Resolved s/p pleurodesis by Dr Koch, CTS recs appreciated Chest tube drainage decreasing (3) Anemia in chronic kidney disease Current Visit: No Status: Chronic Hgb noted at 8.4, stable since transfusions (2 units pRBCs total) Transfusion parameters per primary team Qualifiers: Chronic kidney disease stage: on chronic dialysis Qualified Code(s): N18.6 - End stage renal disease; D63.1 - Anemia in chronic kidney disease; Z99.2 - Dependence on renal dialysis (4) CAD (coronary artery disease) Current Visit: Yes Status: Chronic 3vessel CAD not amenable to intervention per CTS Qualifiers: Coronary Disease-Associated Artery/Lesion type: [place] artery [place] vs. transplanted heart: [place] heart Associated angina: without angina Qualified Code(s): I25.10 - Atherosclerotic heart disease of [place] coronary artery without angina pectoris (5) Elevated troponin Current Visit: No Status: Acute per cardiology, primary but no intervention planned (6) Calciphylaxis Current Visit: No Status: Chronic needs sodium thiosulfate but apparently refusing (7) Obesity (BMI 30.0-34.9) Current Visit: No Status: Chronic (8) Congestive heart failure Current Visit: Yes Status: Chronic Qualifiers: Heart failure type: combined systolic and diastolic Heart failure chronicity: chronic Qualified Code(s): I50.42 - Chronic combined systolic (con gestive) and diastolic (congestive) heart failure Subjective Principal diagnosis: esrd Interval history: Pt seen and examined doing well with no new compalints but frustrated the chest tube still draining, wants to go home to tend to his horse. Objective - Vital Signs Vital signs: Vital Signs Temp Pulse Resp BP Pulse Ox 10/07/18 16:30 98.6 F 75 19 177/84 98 10/07/18 12:11 97.9 F 78 17 141/71 99 10/07/18 11:51 98.5 F 88 16 98 10/07/18 11:50 133/72 10/07/18 07:14 98.5 F 72 19 136/75 97 10/07/18 05:14 98.5 F 79 19 129/63 97 10/07/18 00:36 98.7 F 78 19 114/43 98 10/06/18 21:17 98.7 F 79 19 95/60 95 Intake and Output 10/07/18 10/07/18 10/07/18 07:59 15:59 23:59 Intake Total 480 / 720 240 / 720 Output Total 310 / 310 0 / 310 Balance -310 / 410 480 / 410 240 / 410 Intake: Oral 480 / 720 240 / 720 Output: Urine 0 / 0 Straight Cath 300 / 300 Chest Tube Drainage 10 0 / 10 Right Lateral Chest 0 / 10 Other: Meal Lunch Dinner Percent of Meal Consumed 100% 100% Blood Glucose* 196 178 192 - General Appearance General appearance: Present: chronically ill (NAD) EENT: Present: ATNC, mucous membranes moist Neck: Present: no JVD, supple Additional Comments: good areation with chest tube in place Cardiology: Present: no edema (LE bilat with dressing), normal S1, normal S2 Dialysis Vascular Access: Arteriovenous Fistula thrill: Yes bruit: Yes Gastrointestinal: Present: no tenderness, no guarding, obese Integumentary: Present: warm and dry Neurologic: Present: no focal deficit Musculoskeletal: Present: no deformities Psychiatric: Present: mood/affect appropriate - Lab 10/07/18 04:15 10/07/18 04:15 Consult Discharge Plan - Plan Referrals: NONE,PCP [Primary Care Provider] -
[2018-10-07] MEDS: Insulin DETEMIR 100 UNIT/ML X5UNITS SQ SCH (20:50)
[2018-10-07] MEDS: traMADol 50 MG TABLET PO PRN (20:50)
[2018-10-07] MEDS: rOPINIRole 0.25 MG TABLET PO SCH (20:50)
[2018-10-08] MEDS: *HR* HYDROcodone/Acet 5/325 mg TABLET PO PRN ×3 (01:38→15:21)
[2018-10-08 04:48] LABS: Hematocrit 26.6 % (37.5-50.1); Hemoglobin 8.9 g/dL (12.9-16.9); Mean Corpuscular HGB Conc 33.5 g/dL (31.6-35.5); Mean Corpuscular Hemoglobin 30.4 pg (28.0-33.3); Mean Corpuscular Volume 90.8 fL (83.0-100.0); Mean Platelet Volume 8.6 fL (9.4-12.4); Platelet Count 223 K/mcL (140-400); Red Blood Count 2.93 M/mcL (4.19-5.50); Red Cell Distribution Width 14.7 % (11.5-14.5); White Blood Count 10.3 K/mcL (4.3-11.1)
[2018-10-08 05:13] LABS: Calcium 8.7 mg/dL (8.6-10.3); Potassium 4.8 mEq/L (3.5-5.1)
[2018-10-08] MEDS: *HR* Heparin 5,000 UNIT/ML VIAL SQ SCH ×2 (06:43→16:50)
[2018-10-08] MEDS: Aspirin Enteric Coated 81 MG Tablet PO SCH (07:55)
[2018-10-08] MEDS: Isosorbide MONOnitrate (24 HR) 30 MG TAB.ER.24H PO SCH (07:55)
[2018-10-08] MEDS: Gabapentin 100 MG CAPSULE PO SCH ×3 (07:55→20:44)
[2018-10-08] MEDS: Sucralfate 1 GM TABLET PO SCH ×3 (07:55→16:42)
[2018-10-08] MEDS: Ranolazine 500 MG TAB.ER.12H PO SCH ×2 (07:55→20:44)
[2018-10-08] MEDS: Insulin LISPRO 300 UNITS/3 ML VIAL SQ SCH ×4 (07:56→20:44)
[2018-10-08] MEDS ORDERED: 0.9 % Sodium Chloride 250 ML IVC PRN (08:20)
--- NOTE | 2018-10-08 09:19 | Cardiothoracic Progress Note ---
Date of Encounter: 10/08/18 Time of Encounter: 09:18 - Assessment and plan (1) Acute serous pleuritis Current Visit: Yes Status: Chronic The assessment and plan as outlined above was discussed with the patient and/or family members who expressed understanding and agreement. All questions were answered. xray stable rounded with nurse. removed 1 chest tube. changed pleuravac and left at bedside so nurse can document volume (2) ESRD (end stage renal disease) on dialysis Current Visit: No Status: Chronic The assessment and plan as outlined above was discussed with the patient and/or family members who expressed understanding and agreement. All questions were answered. dialysis m,w,f - Subjective Interval history: can take a deeper breath. Vital Signs, Last 4 Hours Temp Pulse Resp BP Pulse Ox 10/08/18 07:41 98.1 F 80 18 161/89 97 Oxgyen Flow Rate Oxygen Flow Rate (LPM) 0 Clinical Data, last 8 Hours Output, Chest Tube Drainage 80 Amount [Right Lateral Chest] Output, Chest Tube Drainage 0 Amount [Right Lateral Chest] Weight 10/06/18 10/07/18 10/08/18 23:59 23:59 23:59 Weight 97.1 kg 98 kg - Physical Examination General: Conversant, No Apparent Distress, Well developed, Well nourished HEENT: Atraumatic, Normocephaly Incision: No signs of infection, Dry/intact dressing Chest tubes: Minimal drainage Lungs: Normal Breath Sounds Neuro: Alert and responsive, No focal deficits noted, Cranial nerves intact, Motor nerves intact - Labs 10/08/18 04:30 10/08/18 04:30 Lab Results, Last 24 hours 10/08/18 10/08/18 04:30 04:30 WBC 10.3 Hgb 8.9 L Hct 26.6 L Plt Count 223 Sodium 139 Potassium 4.8 Chloride 90 L Carbon Dioxide 18 L BUN 86 H Creatinine 8.54 H Glucose 152 H Calcium 8.7 - Imaging Chest Xray: image reviewed Consult Discharge Plan - Plan Referrals: NONE,PCP [Primary Care Provider] -
--- NOTE | 2018-10-08 10:29 | EEG/EMG/Oth Biometrics Report ---
EEG Procedure Report Date of procedure: 10/08/18 EEG Procedure: Routine EEG Procedure Note: Pt with seizure like activity. He states a couple of weeks ago he had a short episode of shaking and then a second episode today that was more severe and lasted 4 or 5 minutes. Pt denies urinary or bowel incontinence. Hx of 2 cardiac stents, CHF/ This is a routine 21 channel digital EEG performed utilizing 10- 20 international electrode placement system. FINDINGS: Patient has a predominant waking background frequency that is average voltage 8 to 10 Hertz alpha activity in the posterior region, normal amplitude symmetrical over the both hemispheres reactive to eyes opening and closing record continued to show alpha activity intermixed with some theta off and on, no abnormal activity recorded, predominantly no evidence of any spike wave discharges or any lateralizing abnormalities, Photic stimulation did not produce any convulsive response. Intermittent EMG artifacts were noted. Stage II sleep was not achieved. Impression: Normal awake drowsy electroencephalogram. No epileptiform discharges or any other paroxysmal activities noted. ( Please note that normal EEG does not exclude the diagnosis of seizures or epilepsy, clinical correlation is suggested)
[2018-10-08 12:04] LABS: Hepatitis B Surface Antibody < 3.10 mIU/mL
[2018-10-08 12:15] LABS: Hepatitis B Surface Antigen Nonreactive (Nonreactive)
[2018-10-08] MEDS ORDERED: 0.9 % Sodium Chloride 1,000 ML ONE (12:24)
--- NOTE | 2018-10-08 12:37 | Nephrology Progress Note ---
Date of Encounter: 10/08/18 Time of Encounter: 09:45 - Assessment and Plan (1) ESRD (end stage renal disease) Current Visit: Yes Status: Chronic ESRD on HD MWF and due for HD today, which I've ordered. Next HD would be due for Thursday. 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 I will be available this weekend if needed. Please feel free to call or page me if needed. Thank you. 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 (3) Pleural effusion Current Visit: No Status: Resolved s/p pleurodesis by Dr Koch, CTS recs appreciated Chest tube drainage decreasing (4) Obesity (BMI 30.0-34.9) Current Visit: No Status: Chronic Lifestyle mods recommended (5) Congestive heart failure Current Visit: Yes Status: Chronic hx of 3 vessel CAD apparently not a candidate for bypass per CTS Qualifiers: Heart failure type: combined systolic and diastolic Heart failure chronicity: chronic Qualified Code(s): I50.42 - Chronic combined systolic (congestive) and diastolic (congestive) heart failure Subjective Principal diagnosis: esrd Interval history: The patient was seen and examined, and he reported that 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 This is the reason why he can only dialyzed twice per week, he said. 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 Objective - Vital Signs Vital signs: Vital Signs Temp Pulse Resp BP Pulse Ox 10/08/18 07:41 98.1 F 80 18 161/89 97 10/08/18 04:39 97.9 F 80 17 178/68 99 10/07/18 23:45 98.8 F 80 17 151/75 97 10/07/18 19:37 99.5 F 82 17 146/77 98 10/07/18 16:30 98.6 F 75 19 177/84 98 Intake and Output 06/27/19 06/28/19 06/28/19 23:59 07:59 15:59 Intake Total 240 / 720 0 / 0 Output Total 60 / 370 80 / 480 400 / 480 Balance 180 / 350 -80 / -480 -400 / -480 Intake: Oral 240 / 720 0 / 0 Output: Urine 0 / 0 0 / 0 Straight Cath 400 / 400 Chest Tube Drainage 60 / 70 80 / 80 Right Lateral Chest 60 / 70 80 / 80 Other: Meal Dinner Percent of Meal Consumed 100% Stool Size Moderate Small Stool Consistency soft soft Stool Color Brown Brown # Bowel Movements 1 1 Weight 98 kg Blood Glucose* 191 178 119 - General Appearance General appearance: Present: well-developed, well-nourished, appears started age, fatigue EENT: Present: ATNC, PERRL, mucous membranes moist Neck: Present: supple Respiratory: Present: clear Cardiology: Present: edema (trace pretibial pitting edema bilaterally), regular rate, regular rhythm, normal S1, normal S2 Dialysis Vascular Access: Arteriovenous Graft (left forearm) thrill: Yes bruit: Yes Gastrointestinal: Present: normoactive bowel sounds, no guarding Integumentary: Present: rash (on shins bilaterally (chronic)) Musculoskeletal: Present: no cyanosis, no clubbing Psychiatric: Present: cooperative (anxious appearing) - Lab 10/09/18 04:00 10/09/18 04:00 Most recent lab results 10/08/18 04:30 Calcium 8.7 Consult Discharge Plan - Plan Referrals: Roland Valle [Partnered Physician] - (web requested 10/09/2018) NONE,PCP [Primary Care Provider] - Prescriptions: RX: HYDROcodone/Acet 5/325 mg [[place] 5-325 mg] 1 tab PO Q4HR PRN 5 Days #10 tablet PRN Reason: Severe Pain RX: Clopidogrel [Plavix] 75 mg PO DAILY 30 Days #30 tablet
--- NOTE | 2018-10-08 12:42 | Internal Med Progress Note ---
Hospitalist Progress Note - Encounter Date of Encounter: 10/08/18 Time of Encounter: 12:40 - Subjective Interval History: I have seen and evaluated the patient at bedside. patient reports feeling better, states he is not interested on going to rehab if needed, he want to go home because he is planning on going to [place] on Thursday. Denies chest pain, nausea, vomiting or abdominal pain - Exam Vitals: Temp Pulse Resp BP Pulse Ox 98.1 F 80 18 161/89 97 10/08/18 07:41 10/08/18 07:41 10/08/18 07:41 10/08/18 07:41 10/08/18 07:41 Exam: Vitals: Reviewed General: Alert and oriented x4. no distress today Cardiovascular: RRR, normal S1 & S2, no rubs, murmurs or gallops. Lungs: decreased breath sounds, minimal rales and crackles on the right lung, no wheezes. right chest tube in place. good air entry on the left lung Abdomen: Obese, soft, non-tender, no rigidity. NABS in all 4 quadrants Extremities: clean dressing in the lower extr b/l. Neurological: No focal neurological deficits Rest of the physical exam is non contributory - Assessment and Plan (1) Acute serous pleuritis Current Visit: Yes Status: Chronic Assessment and Plan: s/p pleurectomy and pleurodesis. Plan 1 chest tube removed today by CT surgery On norco 5/325mg/PO Q4HR for pain control. incentive spirometry (2) Diabetes Current Visit: Yes Status: Chronic Assessment and Plan: Blood sugar is well controlled. Levemir 5 unit at bedtime, and lispro low-dose sliding scale before meals. (3) ESRD (end stage renal disease) Current Visit: Yes Status: Chronic Assessment and Plan: Plan: Fluids restriction to 1.5 litters a day. renal replacement therapy per nephrology recommendations. daily weight and strict intake and output (4) CAD (coronary artery disease) Current Visit: Yes Status: Chronic Assessment and Plan: On aspirin 81 mg by mouth daily. Ranolazine 1000mg/PO Q12HRs (5) Bilateral leg ulcer Current Visit: No Status: Chronic Assessment and Plan: Patient has multiple non-infected wounds in his lower extremities. daily wound care (6) Congestive heart failure Current Visit: Yes Status: Chronic Assessment and Plan: Patient not on acute exacerbation. plan fluid restricted diet to 1.5 L a day. Continue carvedilol and isosorbide. (7) Hypertension Current Visit: Yes Status: Chronic Assessment and Plan: Blood pressures optimally controlled. Carvedilol increased to 25 mg by mouth twice a day. Continue isosorbide. will monitor and adjust medications accordingly. DVT Prophylaxis: On heparin Subq - Summary of Assessment and Plan Summary of Assessment and Plan: Patient to remain in the hospital. CT still in - Time Spent with Patient Total time spent is greater than 50% in coordination of care (as documented) at patient's floor/unit and/or counseling patient: Greater than 35 minutes (40) Plan of Care Discussed with: patient (and the nurse) Internal Medicine: Result - Labs CBC & Chem 7: 10/08/18 04:30 10/08/18 04:30 Labs: Short CBC 10/08/18 Range/Units 04:30 WBC 10.3 (4.3-11.1) K/mcL Hgb 8.9 L (12.9-16.9) g/dL Hct 26.6 L (37.5-50.1) % Plt Count 223 (140-400) K/mcL BMP 10/08/18 04:30 Sodium 139 Potassium 4.8 Chloride 90 L Carbon Dioxide 18 L BUN 86 H Creatinine 8.54 H Glucose 152 H Calcium 8.7 - ABG Interpretation ABG results: PT/INR, D-dimer PT 11.8 Seconds (9.4-12.1) 09/26/18 19:03 - Impressions Impressions Chest X-Ray 10/08/18 08:00 IMPRESSION: Right-sided chest tubes appear stable in appearance. No definite pneumothorax noted. Small right-sided pleural effusion demonstrates no great change from the comparison accounting for differences in technique. D/ / 10/08/2018 07:26:35 Ha Dove MD / obie Interpreting Provider: Ha Dove MD Consult Discharge Plan - Plan Referrals: NONE,PCP [Primary Care Provider] - (2) Diabetes Qualifiers: Diabetes mellitus type: type 2 Diabetes mellitus rat exterminator insulin use: without rat exterminator use Diabetes mellitus complication status: with kidney complications Diabetes mellitus complication detail: with chronic kidney disease Chronic kidney disease stage: on chronic dialysis Qualified Code(s): E11.22 - Type 2 diabetes mellitus with diabetic chronic kidney disease; N18.6 - End stage renal disease; Z99.2 - Dependence on renal dialysis (4) CAD (coronary artery disease) Qualifiers: Coronary Disease-Associated Artery/Lesion type: [place] artery [place] vs. transplanted heart: [place] heart Associated angina: without angina Qualified Code(s): I25.10 - Atherosclerotic heart disease of [place] coronary artery with out angina pectoris (5) Bilateral leg ulcer Qualifiers: Non-pressure ulcer stage: unspecified non-pressure ulcer stage Qualified Code(s): L97.919 - Non-pressure chronic ulcer of unspecified part of right lower leg with unspecified severity; L97.929 - Non-pressure chronic ulcer of unspecified part of left lower leg with unspecified severity (6) Congestive heart failure Qualifiers: Heart failure type: combined systolic and diastolic Heart failure chronicity: chronic Qualified Code(s): I50.42 - Chronic combined systolic (congestive) and diastolic (congestive) heart failure (7) Hypertension Qualifiers: Hypertension type: unspecified Qualified Code(s): I10 - Essential (primary) hypertension
[2018-10-08] MEDS: Insulin DETEMIR 100 UNIT/ML X5UNITS SQ SCH (20:44)
[2018-10-08] MEDS: rOPINIRole 0.25 MG TABLET PO SCH (20:45)
[2018-10-09 04:47] LABS: Hematocrit 24.6 % (37.5-50.1); Hemoglobin 8.4 g/dL (12.9-16.9); Mean Corpuscular HGB Conc 34.1 g/dL (31.6-35.5); Mean Corpuscular Hemoglobin 30.8 pg (28.0-33.3); Mean Corpuscular Volume 90.1 fL (83.0-100.0); Mean Platelet Volume 8.4 fL (9.4-12.4); Platelet Count 192 K/mcL (140-400); Red Blood Count 2.73 M/mcL (4.19-5.50); White Blood Count 8.9 K/mcL (4.3-11.1)
[2018-10-09 05:05] LABS: Calcium 8.4 mg/dL (8.6-10.3); Potassium 4.5 mEq/L (3.5-5.1)
[2018-10-09] MEDS: *HR* Heparin 5,000 UNIT/ML VIAL SQ SCH (06:10)
[2018-10-09] MEDS: Sucralfate 1 GM TABLET PO SCH ×2 (06:10→10:25)
--- NOTE | 2018-10-09 09:33 | Cardiothoracic Progress Note ---
Date of Encounter: 10/09/18 Time of Encounter: 09:32 - Assessment and plan (1) Acute serous pleuritis Current Visit: Yes Status: Chronic The assessment and plan as outlined above was discussed with the patient and/or family members who expressed understanding and agreement. All questions were answered. xray stable rounded with nurse. removed the last chest tube. placed stitch rounded with hospitalist follow up in my office in 2 weeks with chest xray (2) ESRD (end stage renal disease) on dialysis Current Visit: No Status: Chronic The assessment and plan as outlined above was discussed with the patient and/or family members who expressed understanding and agreement. All questions were answered. dialysis m,w,f - Subjective Interval history: very thankful Vital Signs, Last 4 Hours Temp Pulse Resp BP Pulse Ox 10/09/18 07:25 98.3 F 74 16 106/55 97 Oxgyen Flow Rate Oxygen Flow Rate (LPM) 0 Weight 10/07/18 10/08/18 10/09/18 23:59 23:59 23:59 Weight 98 kg 97.1 kg - Physical Examination General: Conversant, No Apparent Distress, Well developed, Well nourished HEENT: Atraumatic, Normocephaly Cardiac: Reg Rate and Rhythm, Normal S1 and S2 Incision: No signs of infection Chest tubes: Minimal drainage Lungs: Normal Breath Sounds Neuro: Alert and responsive, No focal deficits noted, Cranial nerves intact - Labs 10/09/18 04:00 10/09/18 04:00 Lab Results, Last 24 hours 10/09/18 10/09/18 04:00 04:00 WBC 8.9 Hgb 8.4 L Hct 24.6 L Plt Count 192 Sodium 139 Potassium 4.5 Chloride 89 L Carbon Dioxide 18 L BUN 65 H Creatinine 6.61 H Glucose 187 H Calcium 8.4 L Consult Discharge Plan - Plan Referrals: NONE,PCP [Primary Care Provider] -
--- NOTE | 2018-10-09 10:20 | Discharge Summary ---
Orders not resulted at time of discharge: Pending orders 09/30/18 09:06 Surgical Pathology [PTH] Routine 10/10/18 04:00 Basic Metabolic Panel AM 0400 CBC no Diff [Complete Blood Count w/o Diff] [HEME] AM 04010/11/18 04:00 Basic Metabolic Panel AM 0400 CBC no Diff [Complete Blood Count w/o Diff] [HEME] AM 04010/12/18 04:00 Basic Metabolic Panel AM 0400 CBC no Diff [Complete Blood Count w/o Diff] [HEME] AM 04010/13/18 04:00 Basic Metabolic Panel AM 0400 CBC no Diff [Complete Blood Count w/o Diff] [HEME] AM 04010/14/18 04:00 Basic Metabolic Panel AM 0400 CBC no Diff [Complete Blood Count w/o Diff] [HEME] AM 04010/15/18 04:00 Basic Metabolic Panel AM 0400 CBC no Diff [Complete Blood Count w/o Diff] [HEME] AM 04010/16/18 04:00 Basic Metabolic Panel AM 0400 CBC no Diff [Complete Blood Count w/o Diff] [HEME] AM 040 Date of Encounter: 10/09/18 Time of Encounter: 10:14 - Discharge Diagnosis (1) Acute serous pleuritis Priority: Primary Status: Resolved (2) Diabetes Priority: Secondary Status: Chronic Qualifiers: Diabetes mellitus type: type 2 Diabetes mellitus mcc insulin use: without long term care administrator use Diabetes mellitus complication status: with kidney complications Diabetes mellitus complication detail: with chronic kidney disease Chronic kidney disease stage: on chronic dialysis Qualified Code(s): E11.22 - Type 2 diabetes mellitus with diabetic chronic kidney disease; N18.6 - End stage renal disease; Z99.2 - Dependence on renal dialysis (3) ESRD (end stage renal disease) Priority: Secondary Status: Chronic (4) CAD (coronary artery disease) Priority: Secondary Status: Chronic Qualifiers: Coronary Disease-Associated Artery/Lesion type: [place] artery [place] vs. transplanted heart: [place] heart Associated angina: without angina Qualified Code(s): I25.10 - Atherosclerotic heart disease of [place] coronary artery without angina pectoris (5) Bilateral leg ulcer Priority: Secondary Status: Chronic Qualifiers: Non-pressure ulcer stage: unspecified non-pressure ulcer stage Qualified Code(s): L97.919 - Non-pressure chronic ulcer of unspecified part of right lower leg with unspecified severity; L97.929 - Non-pressure chronic ulcer of unspecified part of left lower leg with unspecified severity (6) Congestive heart failure Priority: Secondary Status: Chronic Qualifiers: Heart failure type: combined systolic and diastolic Heart failure chronicity: chronic Qualified Code(s): I50.42 - Chronic combined systolic (congestive) and diastolic (congestive) heart failure (7) Hypertension Priority: Secondary Status: Chronic Qualifiers: Hypertension type: unspecified Qualified Code(s): I10 - Essential (primary) hypertension Hospital course: Mr. Hernandez is a 53 year old male past medical history of atrial fibrillation, CHF, coronary artery disease, diabetes, dialysis, hypertension. Patient presented to the emergency room with increased shortness of breath. He has recently been in the hospital, and discharged on September 21. He has been inconsistent with his dialysis sessions, he has end-stage renal disease with multiple admissions for shortness of breath and fluid overload. CT surgery was consulted due to patient recurrent right effusion that has been tapped twice in the last month. Patient underwent dx bronchoscopy, right thoracoscopy pleurectomy and pleurodesis. pleural fluid analysis: no growth. A CT/CT abd pelvis wo iv oral only done due to patient complain of abdominal pain. IMPRESSION: Small pneumothorax at the right lung base, with 2 right-sided chest tubes in place. Likely small hemothorax at the posterior right lung base. No acute abnormality in the abdomen. Mild bladder wall thickening, may be related to cystitis or sequela of chronic bladder outlet obstruction. US/US scrotum doppler IMPRESSION: 1. No evidence for testicular torsion. No focal lesions in the testis. 2. Bilateral subcentimeter epididymal cysts. 3. No hydrocele. Chest tube removed today, discharge planning discussed with CT surgery, agree on discharging the patient home and following up with them within a week as an outpatient. Patient refused going to SNF/ECF facility. - Time Spent with Patient Total time spent providing and/or coordinating discharge services: Time spent: Greater than 30 minutes (35) - Discharge Medications Prescriptions: New HYDROcodone/Acet 5/325 mg [[place] 5-325 mg] 1 tab PO Q4HR PRN 5 Days #10 tablet PRN Reason: Severe Pain Clopidogrel [Plavix] 75 mg PO DAILY 30 Days #30 tablet Continued Aspirin [Lo-Dose Aspirin EC] 81 mg PO DAILY Ergocalciferol (VITAMIN D2) [Vitamin D2] 100,000 unit PO WE Insulin Glargine,Hum.rec.anlog [Basaglar Kwikpen U-100] 30 unit SQ HS Tramadol HCl [Ultram] 50 mg PO Q6H PRN PRN Reason: Pain rOPINIRole [Requip] 0.25 mg PO HS Atorvastatin [Lipitor] 40 mg PO HS Calcium Carbonate [Calcium] 600 mg PO DAILY Metoprolol Succinate [Toprol Xl] 25 mg PO QAM Nitroglycerin [Nitrostat] 0.4 mg SL Q5MIN PRN PRN Reason: Chest Pain Pantoprazole Sodium [Protonix] 40 mg PO DAILY Sucralfate [Carafate] 1 gm PO BID Ranolazine [Ranexa] 500 mg PO DAILY Benzethonium Chloride [Dermal Wound Cleanser] 236 ml TP DAILY #3 cleanser Alginate Dressing/Cme-Cell [Maxorb 4"X4" Dressing] 1 each TP DAILY #30 bandage Isosorbide MONOnitrate [Isosorbide Mononitrate ER] 30 mg PO DAILY Metoprolol Succinate [Toprol Xl] 25 mg PO HS PRN PRN Reason: Blood Pressure Ondansetron HCl 8 mg PO TID PRN PRN Reason: NAUSEA/VOMITING Insulin ASPART [Novolog Flexpen] 0 unit SQ TIDWM Discontinued Clopidogrel [Plavix] 75 mg PO DAILY #30 tablet Home Medications: Aspirin [Lo-Dose Aspirin EC] 81 mg PO DAILY 07/30/17 [History] Ergocalciferol (VITAMIN D2) [Vitamin D2] 100,000 unit PO WE 09/24/17 [History] Insulin Glargine,Hum.rec.anlog [Basaglar Kwikpen U-100] 30 unit SQ HS 02/01/18 [History] Tramadol HCl [Ultram] 50 mg PO Q6H PRN 04/15/18 [History] rOPINIRole [Requip] 0.25 mg PO HS 06/18/18 [History] Atorvastatin [Lipitor] 40 mg PO HS 07/26/18 [History] Calcium Carbonate [Calcium] 600 mg PO DAILY 07/26/18 [History] Metoprolol Succinate [Toprol Xl] 25 mg PO QAM 07/26/18 [History] Nitroglycerin [Nitrostat] 0.4 mg SL Q5MIN PRN 07/26/18 [History] Pantoprazole Sodium [Protonix] 40 mg PO DAILY 07/26/18 [History] Sucralfate [Carafate] 1 gm PO BID 08/04/18 [History] Alginate Dressing/Cme-Cell [Maxorb 4"X4" Dressing] 1 each TP DAILY #30 bandage 09/21/18 [Rx] Benzethonium Chloride [Dermal Wound Cleanser] 236 ml TP DAILY #3 cleanser 09/21/18 [Rx] Ranolazine [Ranexa] 500 mg PO DAILY 09/21/18 [History] Insulin ASPART [Novolog Flexpen] 0 unit SQ TIDWM 09/27/18 [History] Isosorbide MONOnitrate [Isosorbide Mononitrate ER] 30 mg PO DAILY 09/27/18 [History] Metoprolol Succinate [Toprol Xl] 25 mg PO HS PRN 09/27/18 [History] Ondansetron HCl 8 mg PO TID PRN 09/27/18 [History] Clopidogrel [Plavix] 75 mg PO DAILY 30 Days #30 tablet 10/09/18 [Rx] HYDROcodone/Acet 5/325 mg [[place] 5-325 mg] 1 tab PO Q4HR PRN 5 Days #10 tablet 10/09/18 [Rx] Allergies/Adverse Reactions: Allergy/AdvReac Type Severity Reaction Status Date / Time No Known Allergies Allergy Verified 07/26/18 09:54 Date of admission: 09/28/18 17:07 Primary care physician: PCP NONE Consults: 09/26/18 23:31 Consult to Nutrition [CONS] Routine Comment: Consulting Provider: NUTRITION Reason for Dietary Consult: Diet Education 09/27/18 01:03 Consult to Nephrology [CONS] Routine Consulting Provider: Kidney Mary Jo/MARGO/MAGDALENA/JUSTICE Reason for Consult: End-stage renal disease Call Completed: No Consult to Wound Care [CONS] Routine Reason for Consult: Multiple open wounds to the lower extremities, various stages of healing Call Completed: No 09/27/18 08:30 Consult to Dialysis [CONS] ONCE 09/27/18 08:43 Consult to Nurse Navigator [CONS] Routine Comment: hd, chf 09/28/18 14:11 Consult to Cardiothoracic Surgery [CONS] Routine Consulting Provider: Cardiothoracic Surgery Mary Jo Reason for Consult: triple vessel CAD; evaluate for CABG Time Notified: 14:11 Call Completed: Yes 09/29/18 08:14 Consult to Invasive Line Access Team [CONS] Routine Reason for Consult: powerglide placement Line Type: EPIV PICC line indications: Limited vascular access 09/29/18 08:30 Consult to Dialysis [CONS] ONCE 10/01/18 07:15 Consult to Dialysis [CONS] ONCE 10/01/18 19:19 Consult to Occupational Therapy [CONS] Routine Comment: Evaluate, develop and implement POC Reason for Consult: discharge eval; post chest tube placement; Does patient have active BEDREST order?: No Is patient medically & hemodynamically stable?: Yes Consult to Physical Therapy [CONS] Routine Comment: Evaluate, develop and implement POC Reason for Consult: discharge eval; post chest tube placement; Does patient have active BEDREST order?: No Is patient medically & hemodynamically stable?: Yes 10/02/18 13:45 Consult to Dialysis [CONS] ONCE 10/04/18 09:30 Consult to Dialysis [CONS] ONCE 10/06/18 08:15 Consult to Dialysis [CONS] ONCE 10/07/18 16:10 Consult to Interpret Exam [CONS] Routine Consulting Provider: Ismael Sue I Consult to Interpret Exam: Interpret EEG 10/08/18 08:30 Consult to Dialysis [CONS] ONCE - Constitutional Vitals: Temp Pulse Resp BP Pulse Ox 98.3 F 74 16 106/55 97 10/09/18 07:25 10/09/18 07:25 10/09/18 07:25 10/09/18 07:25 10/09/18 07:25 General appearance: Present: cooperative, A&O X 3, pleasant, no acute distress, answers questions appropriately Exam: Vitals: Reviewed General: Alert and oriented x4. no distress today Cardiovascular: RRR, normal S1 & S2, no rubs, murmurs or gallops. Lungs: good air entry on the left lung, decreased breath sounds, minimal rales and crackles on the right lung, no wheezes. Abdomen: Obese, soft, non-tender, no rigidity. NABS in all 4 quadrants Extremities: clean dressing in the lower extr b/l. Neurological: No focal neurological deficits Rest of the physical exam is non contributory - Patient Status Disposition: Home, Self-Care Condition: Fair Functional capacity at discharge: independent ambulation Overall status at discharge: patient is progressing back to baseline - Discharge Instructions Follow Up With: NONE,PCP [Primary Care Provider] - - Diet and Activity Activity: resume usual activities as tolerated Diet: low salt diet
[2018-10-09] MEDS: Isosorbide MONOnitrate (24 HR) 30 MG TAB.ER.24H PO SCH (10:25)
[2018-10-09] MEDS: Insulin LISPRO 300 UNITS/3 ML VIAL SQ SCH (10:25)
[2018-10-09] MEDS: Gabapentin 100 MG CAPSULE PO SCH (10:25)
[2018-10-09] MEDS: Ranolazine 500 MG TAB.ER.12H PO SCH (10:25)
[2018-10-09] MEDS: Aspirin Enteric Coated 81 MG Tablet PO SCH (10:25)
[2018-10-09 11:33] VITALS: BP 110/71
--- NOTE | 2018-10-10 08:50 | Physician Discharge Referral ---
Home Health/Hosp Referral Info Transfer to: Home Health - Diagnosis (1) Acute serous pleuritis Priority: Primary Status: Resolved (2) Diabetes Priority: Secondary Status: Chronic (3) ESRD (end stage renal disease) Priority: Secondary Status: Chronic (4) CAD (coronary artery disease) Priority: Secondary Status: Chronic (5) Bilateral leg ulcer Priority: Secondary Status: Chronic (6) Congestive heart failure Priority: Secondary Status: Chronic (7) Hypertension Priority: Secondary Status: Chronic - Respiratory Orders None Smoking Cessation: Smoking cessation has been advised. For more information, call the [place] Tobacco Quit Line at 7-108-GKUY-NOW. - Diet/Nutrition Diet/Nutrition Orders: Regular - Activity Activity Orders: Ambulate - Services Needed Following services are medically necessary services: Nursing, Home Health Aide, Physical Therapy, Occupational Therapy - Transfer Medications Prescriptions: HYDROcodone/Acet 5/325 mg [[place] 5-325 mg] 1 tab PO Q4HR PRN 5 Days #10 tablet PRN Reason: Severe Pain Clopidogrel [Plavix] 75 mg PO DAILY 30 Days #30 tablet Home Medications: Aspirin [Lo-Dose Aspirin EC] 81 mg PO DAILY 07/30/17 [History] Ergocalciferol (VITAMIN D2) [Vitamin D2] 100,000 unit PO WE 09/24/17 [History] Insulin Glargine,Hum.rec.anlog [Basaglar Kwikpen U-100] 30 unit SQ HS 02/01/18 [History] Tramadol HCl [Ultram] 50 mg PO Q6H PRN 04/15/18 [History] rOPINIRole [Requip] 0.25 mg PO HS 06/18/18 [History] Atorvastatin [Lipitor] 40 mg PO HS 07/26/18 [History] Calcium Carbonate [Calcium] 600 mg PO DAILY 07/26/18 [History] Metoprolol Succinate [Toprol Xl] 25 mg PO QAM 07/26/18 [History] Nitroglycerin [Nitrostat] 0.4 mg SL Q5MIN PRN 07/26/18 [History] Pantoprazole Sodium [Protonix] 40 mg PO DAILY 07/26/18 [History] Sucralfate [Carafate] 1 gm PO BID 08/04/18 [History] Alginate Dressing/Cme-Cell [Maxorb 4"X4" Dressing] 1 each TP DAILY #30 bandage 09/21/18 [Rx] Benzethonium Chloride [Dermal Wound Cleanser] 236 ml TP DAILY #3 cleanser 09/21/18 [Rx] Ranolazine [Ranexa] 500 mg PO DAILY 09/21/18 [History] Insulin ASPART [Novolog Flexpen] 0 unit SQ TIDWM 09/27/18 [History] Isosorbide MONOnitrate [Isosorbide Mononitrate ER] 30 mg PO DAILY 09/27/18 [History] Metoprolol Succinate [Toprol Xl] 25 mg PO HS PRN 09/27/18 [History] Ondansetron HCl 8 mg PO TID PRN 09/27/18 [History] Clopidogrel [Plavix] 75 mg PO DAILY 30 Days #30 tablet 10/09/18 [Rx] HYDROcodone/Acet 5/325 mg [[place] 5-325 mg] 1 tab PO Q4HR PRN 5 Days #10 tablet 10/09/18 [Rx] Allergies/Adverse Reactions: Allergy/AdvReac Type Severity Reaction Status Date / Time No Known Allergies Allergy Verified 07/26/18 09:54 Certification: Further, I certify that my clinical findings support that this patient is homebound (i.e. absences from home require considerable and taxing effort and are for medical reasons or islam services or infrequently or short duration when for other reasons) because: Homebound Reason: Patient requires assistance of a person or device to safely leave home Attestation: My signature below is to certify that this patient is under my care and that I, or nurse practitioner, or a physician's title assistant working with me, has a [id number] encounter with this patient.
== END 2018-10-09 13:48 | disposition home health service (06) | DRG 163 ==
LOC: 2ANU 18:22 → EMEROOARM 18:22 → SUATTDRO 20:58 → 2ANU 22:47 → SUATTDRO 09-28 17:07
PROVIDERS: ADMIT Internal Medicine; ATTEND Internal Medicine

== ENCOUNTER 2018-10-15 14:34 | Observation (INO) ==
[2018-10-15] MEDS ORDERED: Metoclopramide 10 MG/2 ML VIAL IVP ONE (14:52)
[2018-10-15] MEDS ORDERED: 0.9 % Sodium Chloride 1,000 ML IVC ONE (14:52)
[2018-10-15] MEDS ORDERED: Famotidine 20 MG/2 ML VIAL IVP ONE (15:04)
[2018-10-15] MEDS ORDERED: Pantoprazole 40 MG VIAL IVP ONE (15:04)
--- NOTE | 2018-10-15 15:05 | Emergency Department Note ---
Disposition Clinical Impression: Cystitis, ESRD (end stage renal disease), Esophagitis, Elevated troponin Gastritis Qualifiers: Gastritis type: unspecified gastritis Chronicity: acute Gastritis bleeding: without bleeding Qualified Code(s): K29.00 - Acute gastritis without bleeding Intractable nausea and vomiting Qualifiers: Vomiting type: unspecified Qualified Code(s): R11.2 - Nausea with vomiting, unspecified Disposition: Admitted As Inpatient Condition: Fair Referrals: Fausto Jacques MD [Primary Care Provider] - Time of Disposition: 18:20 Nausea/Vomiting/Diarrhea HPI - General Stated complaint: Abdominal Pain Time Seen by Provider: 10/15/18 14:42 Source: patient, EMS Mode of arrival: private vehicle Limitations: no limitations Nursing Notes Reviewed: Yes Vital Signs Reviewed: Yes - History of Present Illness HPI Narrative: Patient's brought to the ED by squad from dialysis for evaluation of "really bad acid reflux." He describes pain in the right side of the chest as well as right upper quadrant and epigastrium. The pain and vomiting began this morning while on his way to dialysis. He was able to complete most of dialysis then had to stop because of the vomiting and pain. Patient had a recent pleurodesis here at [facility]. He went home last week once his chest tubes were removed. He states that he was doing well until this morning. He denies diarrhea, constipation, hematemesis, fever, chills, shortness of breath, vertigo, syncope or weakness. Pt Subjective Complaint: vomiting Onset (ago): Just [employer] Description of emesis: food contents, other ("Acid Reflux") Number of episodes of emesis: 4 Associated Abdominal Pain: Yes If pain, Location of pain: RUQ, epigastric Severity: mild, moderate Quality: sharp Consistency: intermittent Improves with: nothing Worsens with: vomiting Context: other (Recent pleurodesis and admission here. D/C'd last week. Dialysis this AM. Had to stop 15 minutes early due to vomiting.) Associated symptoms: Reports: chest pain (right side), cough (infrequent, productive of small amount of clear sputum). Denies: diaphoresis, fever/chills, headaches, loss of appetite, malaise, nausea/vomiting, rash, dysuria, shortness of breath, syncope, weakness - Related Data Home Medications Medication Instructions Recorded Confirmed Aspirin [Lo-Dose Aspirin EC] 81 mg PO DAILY 07/30/17 09/27/18 Ergocalciferol (VITAMIN D2) 100,000 unit PO WE 09/24/17 09/27/18 [Vitamin D2] Insulin Glargine,Hum.rec.anlog 30 unit SQ HS 02/01/18 09/27/18 [Basaglar Kwikpen U-100] Tramadol HCl [Ultram] 50 mg PO Q6H PRN 04/15/18 09/27/18 rOPINIRole [Requip] 0.25 mg PO HS 06/18/18 09/27/18 Atorvastatin [Lipitor] 40 mg PO HS 07/26/18 09/27/18 Calcium Carbonate [Calcium] 600 mg PO DAILY 07/26/18 09/27/18 Metoprolol Succinate [Toprol Xl] 25 mg PO QAM 07/26/18 09/27/18 Nitroglycerin [Nitrostat] 0.4 mg SL Q5MIN PRN 07/26/18 09/27/18 Pantoprazole Sodium [Protonix] 40 mg PO DAILY 07/26/18 09/27/18 Sucralfate [Carafate] 1 gm PO BID 08/04/18 09/27/18 Ranolazine [Ranexa] 500 mg PO DAILY 09/21/18 09/27/18 Insulin ASPART [Novolog Flexpen] 0 unit SQ TIDWM 09/27/18 09/27/18 Isosorbide MONOnitrate [Isosorbide 30 mg PO DAILY 09/27/18 09/27/18 Mononitrate ER] Metoprolol Succinate [Toprol Xl] 25 mg PO HS PRN 09/27/18 09/27/18 Ondansetron HCl 8 mg PO TID PRN 09/27/18 09/27/18 Previous Rx's Medication Instructions Recorded Alginate Dressing/Cme-Cell [Maxorb 1 each TP DAILY #30 bandage 09/21/18 4"X4" Dressing] Benzethonium Chloride [Dermal 236 ml TP DAILY #3 cleanser 09/21/18 Wound Cleanser] Clopidogrel [Plavix] 75 mg PO DAILY 30 Days #30 tablet 10/09/18 Allergies Allergy/AdvReac Type Severity Reaction Status Date / Time No Known Allergies Allergy Verified 07/26/18 09:54 All systems ED: reviewed and negative except as stated. Review of Systems: As Per HPI Constitutional: Denies: fever, chills, weakness ENT ED: Denies: throat pain, congestion, dysphagia Cardiovascular: Reports: as per HPI, chest pain. Denies: palpitations, dyspnea on exertion, orthopnea, edema, syncope Respiratory: Reports: as per HPI, cough (Occasional), sputum production. Denies: dyspnea, wheezes, hemoptysis, stridor Gastrointestinal: Reports: abdominal pain, nausea, vomiting. Denies: diarrhea, constipation Integumentary: Denies: rash, lesions Neurological: Denies: headache, weakness, numbness, paresthesias, confusion, vertigo Hematological/Lymphatic: Reports: easy bleeding, easy bruising Past Medical History - Past Medical History Attestation: Yes The following information was validated with the patient. Source: patient, old records reviewed Medical history: Reports: atrial fibrillation, CHF, coronary artery disease, diabetes, dialysis, hypertension, renal disease, TIA, venous stasis Surgical history: Reports: cholecystectomy, vascular surgery, other Psychiatric history: Reports: no psych history - Social History Smoking Status: Never smoker Smokeless Tobacco Status: No Alcohol use: Reports: none Drug use: Reports: none Physical Exam - General Limitations: no limitations General appearance: alert, in no apparent distress - Head Head exam: atraumatic, normocephalic, normal inspection - Eye Eye exam: Present: normal appearance. Absent: scleral icterus, conjunctival i njection, miosis, mydriasis, periorbital swelling - ENT ENT exam: mucous membranes moist - Neck Neck exam: Present: normal inspection, trachea midline. Absent: meningismus - Chest Chest inspection: Present: other (well healing wounds right lateral chest wall - one with sutures in place, one without. No surrounding erythema, do dehiscence, no drainage) - Respiratory Respiratory exam: Present: normal lung sounds bilaterally. Absent: respiratory distress, wheezes, stridor, accessory muscle use - Cardiovascular Cardiovascular exam: Present: regular rate, normal rhythm - Abdominal Exam Abdominal exam: Present: soft, tenderness. Absent: distention, guarding, re bound, rigidity, Alvarado's sign, tenderness at McBurney's Point, ascites, mass, pulsatile mass - Extremities Exam Extremities exam: Present: normal capillary refill. Absent: pedal edema - Neurological Exam Neurological exam: Present: alert, oriented X3, CN II-XII intact - Psychiatric Psychiatric exam: Present: normal affect, normal mood - Skin Skin exam: Present: warm, dry, intact, normal color Course Course Narrative: Patient brought to EMS1, examined and placed on monitor. EKG obtained. It is unc hanged compared to prior. Sinus Rhythm. Labs and CXR ordered. Patient still nauseated. Additional meds ordered. CXR shows infiltrate adjacent to improved effusion. Case discussed with Dr. Hawk. He has reviewed the image and labs, has seen the patient, and recommends CT of the chest to further evaluate. CT Impression suggests possibility of infection. Abx recommended. Abx ordered. CT shows gas which "could represent infection or instrumentation", otherwise no new airway disease. As read by Radiologist. Patient has a new cough, but no fever, dyspnea or leukocytosis. Unlikely to be pneumonia. however cannot entirely exclude infection. Patient continues to have nausea and vomiting. He was unale to tolerate po fluid challenge. Additional meds ordered. Case discussed with the hospitalist. He requests that CTS be consulted. Case discussed with Dr. Rdz and then again with the hospitalist. Patient accepted for admission. - Consultations Consultation #1: Case discussed with Dr. Rdz - Cardiothoracic Surgeon. He states that he will see the patient in the morning. Time: 18:12 Vital Signs Temperature 98.6 F 10/15/18 15:08 Pulse Rate 84 10/15/18 15:08 Respiratory Rate 10/15/18 15:08 Blood Pressure 182/107 10/15/18 15:08 O2 Sat by Pulse Oximetry 98 10/15/18 15:08 Temperature 98.6 F 10/15/18 15:08 Pulse Rate 84 10/15/18 15:08 Respiratory Rate 10/15/18 15:08 Blood Pressure 182/107 10/15/18 15:08 O2 Sat by Pulse Oximetry 98 10/15/18 15:08 Oxygen Delivery Oxygen Delivery Room Air Nausea/Vomiting/Diarrhea - Medical Records Medical records reviewed: Yes I reviewed the patient's medical records. - Lab Data Lab results reviewed: Yes I reviewed the patient's lab results. Lab results narrative: Laboratory Last Values WBC 8.7 K/mcL (4.3-11.1) 10/15/18 15:22 RBC 3.22 M/mcL (4.19-5.50) L 10/15/18 15:22 Hgb 9.8 g/dL (12.9-16.9) L 10/15/18 15:22 Hct 29.2 % (37.5-50.1) L 10/15/18 15:22 MCV 90.7 fL (83.0-100.0) 10/15/18 15:22 MCH 30.4 pg (28.0-33.3) 10/15/18 15:22 MCHC 33.6 g/dL (31.6-35.5) 10/15/18 15:22 RDW 14.6 % (11.5-14.5) H 10/15/18 15:22 Plt Count 315 K/mcL (140-400) D 10/15/18 15:22 MPV 8.7 fL (9.4-12.4) L 10/15/18 15:22 Immature Gran % 0.6 % (0-4) 10/15/18 15: Seg Neutrophils % 86.6 % 10/15/18 15:22 4.1 % 10/15/18 15:22 7.7 % 10/15/18 15:22 0.8 % 10/15/18 15:22 0.2 % 10/15/18 15:22 7.6 K/mcL (1.6-8.9) 10/15/18 15:22 0.4 K/mcL (0.6-4.6) L 10/15/18 15:22 0.7 K/mcL (0.0-1.3) 10/15/18 15:22 0.1 K/mcL (0.0-0.6) 10/15/18 15:22 0.0 K/mcL (0.0-0.2) 10/15/18 15:22 PT 13.0 Seconds (9.4-12.1) H 10/15/18 15:22 INR 1.1 10/15/18 15:22 APTT 29.3 Seconds (26.0-36.0) 10/15/18 15:22 Sodium 139 mEq/L (136-145) 10/15/18 15:22 Potassium 4.1 mEq/L (3.5-5.1) 10/15/18 15:22 Chloride 96 mEq/L (98-107) L 10/15/18 15:22 Carbon Dioxide 27 mEq/L (23-29) 10/15/18 15:22 BUN 74 mg/dL (6-20) H 10/15/18 15:22 6.21 mg/dL (0.70-1.30) H 10/15/18 15:22 Est GFR ( Amer) 12 (> 60) L 10/15/18 15:22 Est GFR (Non-Af Amer) 10 (> 60) L 10/15/18 15:22 12 (6-26) 10/15/18 15:22 Glucose 177 mg/dL (70-105) H 10/15/18 15:22 314 (280-300) H 10/15/18 15:22 Lactic Acid 0.7 mmol/L (0.5-2.2) 10/15/18 16:24 Calcium 8.4 mg/dL (8.6-10.3) L 10/15/18 15:22 0.3 mg/dL (0.3-1.0) 10/15/18 15:22 0.1 mg/dL (0.0-0.2) 10/15/18 15:22 0.2 mg/dL (0.0-1.2) 10/15/18 15:22 AST 45 Units/L (13-39) H 10/15/18 15:22 ALT 58 Units/L (7-52) H 10/15/18 15:22 117 Units/L (34-104) H 10/15/18 15:22 0.05 ng/mL (< 0.04) H* 10/15/18 15:22 6.9 g/dL (6.4-8.9) 10/15/18 15:22 3.2 g/dL (3.5-5.7) L 10/15/18 15:22 3.7 g/dL (2.4-3.5) H 10/15/18 15:22 0.9 (1.1-2.2) L 10/15/18 15:22 29 Units/L (11-82) 10/15/18 15:22 Result diagrams: 10/15/18 15:22 Lab Results 10/15/18 10/15/18 Range/Units 15:22 15:22 WBC 8.7 (4.3-11.1) K/mcL RBC 3.22 L (4.19-5.50) M/mcL Hgb 9.8 L (12.9-16.9) g/dL Hct 29.2 L (37.5-50.1) % MCV 90.7 (83.0-100.0) fL MCH 30.4 (28.0-33.3) pg MCHC 33.6 (31.6-35.5) g/dL RDW 14.6 H (11.5-14.5) % Plt Count 315 D (140-400) K/mcL MPV 8.7 L (9.4-12.4) fL Immature Gran % 0.6 (0-4) % Seg Neutrophils % 86.6 % Lymphocytes % 4.1 % Monocytes % 7.7 % Eosinophils % 0.8 % Basophils % 0.2 % Neutrophils # 7.6 (1.6-8.9) K/mcL Lymphocytes # 0.4 L (0.6-4.6) K/mcL Monocytes # 0.7 (0.0-1.3) K/mcL Eosinophils # 0.1 (0.0-0.6) K/mcL Basophils # 0.0 (0.0-0.2) K/mcL PT 13.0 H (9.4-12.1) Seconds INR 1.1 APTT 29.3 (26.0-36.0) Seconds - Radiology Data Radiology results reviewed: Yes I reviewed the patient's radiology results. Chest X-Ray 10/15/18 14:52 IMPRESSION: Interval improvement in subcutaneous emphysema in the right chest wall with interval removal right thoracostomy tubes. No discrete pneumothorax. Small right pleural effusion with adjacent airspace opacity. D/ / Chrissie Wolff MD / Chrissie Wolff MD Interpreting Provider: Chrissie Wolff MD Chest CT 10/15/18 16:17 IMPRESSION: 1. Decrease in the amount of pleural fluid on the right side. Increased density seen within the pleural fluid could represent hemorrhage or debris. Gas seen within the pleural fluid collection as well could represent recent instrumentation or possibly infection. 2. Gas in the right lateral chest wall 3. Compressive atelectasis in the right lower lobe is unchanged D/ / Pietro Haro MD / Pietro Haro MD Interpreting Provider: Pietro Haro MD Abdomen/Pelvis CT 10/15/18 16:19 IMPRESSION: There is mural thickening involving the lower esophagus, suggesting esophagitis. Moderate gastric distention noted as well. Otherwise, no abnormalities are identified to explain the patient's epigastric pain. No evidence of small bowel obstruction. Mild diverticulosis, but without CT evidence of diverticulitis. Redemonstration of urinary bladder mural thickening along with surrounding fat stranding, concerning for cystitis. Correlation with urinalysis would be helpful. Please refer to the chest CT report performed concurrently for further details regarding the right lower lung and the right chest wall. D/ / Mitchell Flores MD / Mitchell Flores MD Interpreting Provider: Mitchell Flores MD - EKG Data EKG attestation: Yes I reviewed and interpreted this EKG. EKG shows normal: sinus rhythm Rate: normal Rhythm: NSR [place]/QRS: normal QRS morphology: J-point elevation When compared to previous EKG there are: no significant changes Interpretation: unchanged when compared to prior tracing (date)
[2018-10-15 15:51] LABS: Basophils % 0.2 %; Eosinophils # 0.1 K/mcL (0.0-0.6); Eosinophils % 0.8 %; Hematocrit 29.2 % (37.5-50.1); Hemoglobin 9.8 g/dL (12.9-16.9); Immature Granulocytes % 0.6 % (0-4); Lymphocytes # 0.4 K/mcL (0.6-4.6); Lymphocytes % 4.1 %; Mean Corpuscular HGB Conc 33.6 g/dL (31.6-35.5); Mean Corpuscular Hemoglobin 30.4 pg (28.0-33.3); Mean Corpuscular Volume 90.7 fL (83.0-100.0); Mean Platelet Volume 8.7 fL (9.4-12.4); Monocytes # 0.7 K/mcL (0.0-1.3); Monocytes % 7.7 %; Neutrophils # 7.6 K/mcL (1.6-8.9); Platelet Count 315 K/mcL (140-400); Red Blood Count 3.22 M/mcL (4.19-5.50); Red Cell Distribution Width 14.6 % (11.5-14.5); Segmented Neutrophils % 86.6 %; White Blood Count 8.7 K/mcL (4.3-11.1)
[2018-10-15 16:00] LABS: INR 1.1
[2018-10-15 16:02] LABS: Activated Partial Thrombo Time 29.3 Seconds (26.0-36.0)
[2018-10-15 16:21] LABS: Albumin 3.2 g/dL (3.5-5.7); Albumin/Globulin Ratio 0.9 (1.1-2.2); Bilirubin,Direct 0.1 mg/dL (0.0-0.2); Bilirubin,Indirect 0.2 mg/dL (0.0-1.2); Bilirubin,Total 0.3 mg/dL (0.3-1.0); Calcium 8.4 mg/dL (8.6-10.3); Globulin 3.7 g/dL (2.4-3.5); Potassium 4.1 mEq/L (3.5-5.1); Total Protein 6.9 g/dL (6.4-8.9); Troponin I 0.05 ng/mL (< 0.04)
[2018-10-15] MEDS ORDERED: Piperacillin/Tazobactam 3.375 GM in 0.9 % Sodium Chloride Mini Bag 100 ML IVPB ONE (17:21)
[2018-10-15] MEDS ORDERED: levoFLOXacin 750 MG/150 ML 750 MG/150 ML BAG IVPB ONE (17:21)
[2018-10-15] MEDS ORDERED: Ondansetron 4 MG/2 ML VIAL IVP ONE (18:18)
[2018-10-15] MEDS ORDERED: Promethazine 12.5 MG in 0.9 % Sodium Chloride 50 ML IVPB ONE (18:25)
--- NOTE | 2018-10-15 19:11 | Emergency Department Note ---
Disposition Clinical Impression: Cystitis, ESRD (end stage renal disease), Esophagitis, Elevated troponin Gastritis Qualifiers: Gastritis type: unspecified gastritis Chronicity: acute Gastritis bleeding: without bleeding Qualified Code(s): K29.00 - Acute gastritis without bleeding Intractable nausea and vomiting Qualifiers: Vomiting type: unspecified Qualified Code(s): R11.2 - Nausea with vomiting, unspecified Disposition: Admitted As Inpatient Condition: Fair Time of Disposition: 19:11 General Adult HPI - General Chief complaint: ED Abdominal Pain Stated complaint: Abdominal Pain Time Seen by Provider: 10/15/18 14:42 Source: patient, EMS Mode of arrival: private vehicle Limitations: no limitations - History of Present Illness Pain Scale: 5 - Related Data Home Medications Medication Instructions Recorded Confirmed Aspirin [Lo-Dose Aspirin EC] 81 mg PO DAILY 07/30/17 09/27/18 Ergocalciferol (VITAMIN D2) 100,000 unit PO WE 09/24/17 09/27/18 [Vitamin D2] Insulin Glargine,Hum.rec.anlog 30 unit SQ HS 02/01/18 09/27/18 [Basaglar Kwikpen U-100] Tramadol HCl [Ultram] 50 mg PO Q6H PRN 04/15/18 09/27/18 rOPINIRole [Requip] 0.25 mg PO HS 06/18/18 09/27/18 Atorvastatin [Lipitor] 40 mg PO HS 07/26/18 09/27/18 Calcium Carbonate [Calcium] 600 mg PO DAILY 07/26/18 09/27/18 Metoprolol Succinate [Toprol Xl] 25 mg PO QAM 07/26/18 09/27/18 Nitroglycerin [Nitrostat] 0.4 mg SL Q5MIN PRN 07/26/18 09/27/18 Pantoprazole Sodium [Protonix] 40 mg PO DAILY 07/26/18 09/27/18 Sucralfate [Carafate] 1 gm PO BID 08/04/18 09/27/18 Ranolazine [Ranexa] 500 mg PO DAILY 09/21/18 09/27/18 Insulin ASPART [Novolog Flexpen] 0 unit SQ TIDWM 09/27/18 09/27/18 Isosorbide MONOnitrate [Isosorbide 30 mg PO DAILY 09/27/18 09/27/18 Mononitrate ER] Metoprolol Succinate [Toprol Xl] 25 mg PO HS PRN 09/27/18 09/27/18 Ondansetron HCl 8 mg PO TID PRN 09/27/18 09/27/18 Previous Rx's Medication Instructions Recorded Alginate Dressing/Cme-Cell [Maxorb 1 each TP DAILY #30 bandage 09/21/18 4"X4" Dressing] Benzethonium Chloride [Dermal 236 ml TP DAILY #3 cleanser 09/21/18 Wound Cleanser] Clopidogrel [Plavix] 75 mg PO DAILY 30 Days #30 tablet 10/09/18 Allergies Allergy/AdvReac Type Severity Reaction Status Date / Time No Known Allergies Allergy Verified 07/26/18 09:54 Constitutional: Denies: fever, chills, weakness ENT ED: Denies: throat pain, congestion, dysphagia Cardiovascular: Reports: as per HPI, chest pain. Denies: palpitations, dyspnea on exertion, orthopnea, edema, syncope Respiratory: Reports: as per HPI, cough (Occasional), sputum production. Denies: dyspnea, wheezes, hemoptysis, stridor Gastrointestinal: Reports: abdominal pain, nausea, vomiting. Denies: diarrhea, constipation Integumentary: Denies: rash, lesions Neurological: Denies: headache, weakness, numbness, paresthesias, confusion, vertigo Hematological/Lymphatic: Reports: easy bleeding, easy bruising Past Medical History - Past Medical History Medical history: Reports: other Surgical history: Reports: cholecystectomy, vascular surgery, other Psychiatric history: Reports: no psych history - Social History Smoking Status: Never smoker Smokeless Tobacco Status: No Alcohol use: Reports: none Drug use: Reports: none Physical Exam - General Limitations: no limitations General appearance: alert, in no apparent distress Course Vital Signs Temperature 98.6 F 10/15/18 15:08 Pulse Rate 84 10/15/18 15:08 Respiratory Rate 19 10/15/18 15:08 Blood Pressure 182/107 10/15/18 15:08 O2 Sat by Pulse Oximetry 98 10/15/18 15:08 Temperature 98.6 F 10/15/18 15:08 Pulse Rate 105 10/15/18 18:08 Respiratory Rate 20 10/15/18 18:08 Blood Pressure 179/102 10/15/18 18:08 O2 Sat by Pulse Oximetry 98 10/15/18 18:08 Oxygen Delivery Oxygen Delivery Room Air Medical Decision Making - Lab Data Result diagrams: 10/15/18 15:22 10/15/18 15:22 Lab Results 10/15/18 10/15/18 10/15/18 Range/Units 15:22 15:22 15:22 WBC 8.7 (4.3-11.1) K/mcL RBC 3.22 L (4.19-5.50) M/mcL Hgb 9.8 L (12.9-16.9) g/dL Hct 29.2 L (37.5-50.1) % MCV 90.7 (83.0-100.0) fL MCH 30.4 (28.0-33.3) pg MCHC 33.6 (31.6-35.5) g/dL RDW 14.6 H (11.5-14.5) % Plt Count 315 D (140-400) K/mcL MPV 8.7 L (9.4-12.4) fL Immature Gran % 0.6 (0-4) % Seg Neutrophils % 86.6 % Lymphocytes % 4.1 % Monocytes % 7.7 % Eosinophils % 0.8 % Basophils % 0.2 % Neutrophils # 7.6 (1.6-8.9) K/mcL Lymphocytes # 0.4 L (0.6-4.6) K/mcL Monocytes # 0.7 (0.0-1.3) K/mcL Eosinophils # 0.1 (0.0-0.6) K/mcL Basophils # 0.0 (0.0-0.2) K/mcL PT 13.0 H (9.4-12.1) Seconds INR 1.1 APTT 29.3 (26.0-36.0) Seconds Sodium 139 (136-145) mEq/L Potassium 4.1 (3.5-5.1) mEq/L Chloride 96 L (98-107) mEq/L Carbon Dioxide 27 (23-29) mEq/L BUN 74 H (6-20) mg/dL Creatinine 6.21 H (0.70-1.30) mg/dL Est GFR ( Amer) 12 L (> 60) Est GFR (Non-Af Amer) 10 L (> 60) BUN/Creatinine Ratio 12 (6-26) Glucose 177 H (70-105) mg/dL Calculated Osmolality 314 H (280-300) Lactic Acid (0.5-2.2) mmol/L Calcium 8.4 L (8.6-10.3) mg/dL Total Bilirubin 0.3 (0.3-1.0) mg/dL Direct Bilirubin 0.1 (0.0-0.2) mg/dL Indirect Bilirubin 0.2 (0.0-1.2) mg/dL AST 45 H (13-39) Units/L ALT 58 H (7-52) Units/L Alkaline Phosphatase 117 H (34-104) Units/L Troponin I 0.05 H* (< 0.04) ng/mL Serum Total Protein 6.9 (6.4-8.9) g/dL Albumin 3.2 L (3.5-5.7) g/dL Globulin 3.7 H (2.4-3.5) g/dL Albumin/Globulin Ratio 0.9 L (1.1-2.2) Lipase 29 (11-82) Units/L 10/15/18 Range/Units 16:24 WBC (4.3-11.1) K/mcL RBC (4.19-5.50) M/mcL Hgb (12.9-16.9) g/dL Hct (37.5-50.1) % MCV (83.0-100.0) fL MCH (28.0-33.3) pg MCHC (31.6-35.5) g/dL RDW (11.5-14.5) % Plt Count (140-400) K/mcL MPV (9.4-12.4) fL Immature Gran % (0-4) % Seg Neutrophils % % Lymphocytes % % Monocytes % % Eosinophils % % Basophils % % Neutrophils # (1.6-8.9) K/mcL Lymphocytes # (0.6-4.6) K/mcL Monocytes # (0.0-1.3) K/mcL Eosinophils # (0.0-0.6) K/mcL Basophils # (0.0-0.2) K/mcL PT (9.4-12.1) Seconds INR APTT (26.0-36.0) Seconds Sodium (136-145) mEq/L Potassium (3.5-5.1) mEq/L Chloride (98-107) mEq/L Carbon Dioxide (23-29) mEq/L BUN (6-20) mg/dL Creatinine (0.70-1.30) mg/dL Est GFR ( Amer) (> 60) Est GFR (Non-Af Amer) (> 60) BUN/Creatinine Ratio (6-26) Glucose (70-105) mg/dL Calculated Osmolality (280-300) Lactic Acid 0.7 (0.5-2.2) mmol/L Calcium (8.6-10.3) mg/dL Total Bilirubin (0.3-1.0) mg/dL Direct Bilirubin (0.0-0.2) mg/dL Indirect Bilirubin (0.0-1.2) mg/dL AST (13-39) Units/L ALT (7-52) Units/L Alkaline Phosphatase (34-104) Units/L Troponin I (< 0.04) ng/mL Serum Total Protein (6.4-8.9) g/dL Albumin (3.5-5.7) g/dL Globulin (2.4-3.5) g/dL Albumin/Globulin Ratio (1.1-2.2) Lipase (11-82) Units/L Attestation Statement - Attestation Attestation: For this encounter, I have reviewed the PARKING MANAGER or PA documentation, treatment plan, and medical decision making; and I have had face to face time with this patient. Patient 83-year-old Pati presents to the emergency department with chief complaint of right-sided chest pain and also nausea and vomiting. The patient reports that multiple episodes of nausea and vomiting started having pain in his chest. The patient reports that he has a history of a tube thoracostomy and has had a pleurodesis done by thoracic surgery. The patient reports that the wounds have been healing well states that since he started vomiting he has been having pain in the right side of his chest. Patient states that the nausea medications here and slightly helped but is still feeling nauseated feeling. Physical exam patient is awake alert no acute distress wounds are healing nicely right sided chest from the chest tube locations. Medical decision management the patient underwent laboratory studies and also initial plain film x-ray that also underwent helical imaging of the chest. Given the findings of the case was discussed with the on-call thoracic surgeon who will follow the patient has had continual nausea and not able to tolerate by mouth intake after receiving 3 doses anti-emetics. Case was discussed with the hospitalist for admission for observation to intractable nausea and vomiting.
--- NOTE | 2018-10-15 19:32 | Internal Med History&Physical ---
<Luke Parks - Last Filed: 10/15/18 23:53> Date of Encounter: 10/15/18 Time of Encounter: 20:18 Internal Medicine - H&P: HPI Chief complaint: Nausea Admitted From: Emergency Dept Plans for Post Hospital Care: Home History of present illness: Mr. Hernandez is a 53 year old male with past medical history of ESRD on Thursday dialysis, diabetes, hypertension, CAD who presents emergency department with complaint of intractable nausea. Patient states that he has had nausea, vomiting and epigastric abdominal pain 4 days. He has never experienced this in the past. Pain has no exacerbating or relieving symptoms although he does admit it is worse following meals and progressively worsened throughout his dialysis course today. Emesis is bilious in nature without any evidence of blood. He has no symptoms of fevers, chills, chest pain, difficulty breathing, changes in bowel movements including diarrhea or hematochezia or melena. He describes his pain as epigastric and then radiates up through his chest. He does have a history of GERD but takes no medications. Other than his pain increasing, he did tolerate his dialysis well. He has been on dialysis for approximately a year and a half and does follow with [facility]. He is Thursday, Thursday dialysis but states that he should be Thursday. Etiology of his renal failure is likely diabetes, which control has improved. He does make urine and has not noticed any changes in frequency, color, odor. Of note, patient was recently admitted to this facility from 09/28-10/09 for recurrent volume overload and pleural effusions which did require a chest tube. Chest tube on right has been removed and he has not yet followed up with cardiothoracic surgery. He states his incision is healing well but he does have some residual pain in his chest wall. Upon arrival to the emergency room, vital signs are significant for a blood pressure 182/107, remainder unremarkable. Laboratory results show a baseline anemia, baseline renal failure, mildly elevated troponin 0.05, mild transaminitis and a negative lipase. CT of the chest and abdomen and pelvis were performed. These results were significant for decrease of pleural fluid on right, increased density within the pleural fluid which may represent hemorrhage and/or to previous as well as gas which could not represent recent instrumentation. Compressive atelectasis in the right lower lobe. CT of the abdomen and pelvis showed mural thickening in the lower esophagus suggesting esophagitis and moderate gastric distention, mild diverticulosis, fat stranding and thickening around the bladder which is stable from previous. He was given Pepcid, Reglan, Zofran, Protonix, which did improve his symptoms. At time of my interview, patient is resting comfortably sitting up in bed. He states he still his having some mild abdominal pain and nausea but it is much improved from presentation. 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 Type II Diabetic Psychiatric history: no psych history - Past Surgical History Surgical History: cholecystectomy, vascular surgery, other Additional surgical history: esophageal bypass, prostate surgery (TURP), left arm av shunt, cholelithiasis - Social History Smoking Status: Never smoker Smokeless Tobacco Status: No Alcohol use: none Drug use: none - Family History Mother Adopted: No Living Status: Hx Family Cardiac Disorders: Yes (mother stroke) Hx Family Respiratory Disorders: Yes (Dad asthma copd) Hx Family Cancer: Yes (prostate, pancreatic) Hx Family GI Disorders: No Hx Family Endocrine Disorder: Yes (DM) Hx Family Neuromuscular Disorders: No Hx Family Neurologic Disorders: No Hx Family HEENT Disorders: No Hx Family Autoimmune Disorders: No Father Adopted: No Living Status: Hx Family Cardiac Disorders: Yes (father, stents) Hx Family Respiratory Disorders: Yes (father COPD) Hx Family Cancer: Yes (Father prostate cancer uncle colon) Hx Family GI Disorders: No Hx Family Endocrine Disorder: Yes (dM) Hx Family Neuromuscular Disorders: No Hx Family Neurologic Disorders: No Hx Family HEENT Disorders: No Hx Family Autoimmune Disorders: No Internal Medicine - H&P: Meds Aspirin [Lo-Dose Aspirin EC] 81 mg PO DAILY 07/30/17 [History] Ergocalciferol (VITAMIN D2) [Vitamin D2] 100,000 unit PO WE 09/24/17 [History] Insulin Glargine,Hum.rec.anlog [Basaglar Kwikpen U-100] 30 unit SQ HS 02/01/18 [History] Tramadol HCl [Ultram] 50 mg PO Q6H PRN 04/15/18 [History] rOPINIRole [Requip] 0.25 mg PO HS 06/18/18 [History] Atorvastatin [Lipitor] 40 mg PO HS 07/26/18 [History] Calcium Carbonate [Calcium] 600 mg PO DAILY 07/26/18 [History] Metoprolol Succinate [Toprol Xl] 25 mg PO QAM 07/26/18 [History] Nitroglycerin [Nitrostat] 0.4 mg SL Q5MIN PRN 07/26/18 [History] Alginate Dressing/Cme-Cell [Maxorb 4"X4" Dressing] 1 each TP DAILY #30 bandage 09/21/18 [Rx] Benzethonium Chloride [Dermal Wound Cleanser] 236 ml TP DAILY #3 cleanser 09/21/18 [Rx] Ranolazine [Ranexa] 500 mg PO DAILY 09/21/18 [History] Insulin ASPART [Novolog Flexpen] 0 unit SQ TIDWM 09/27/18 [History] Isosorbide MONOnitrate [Isosorbide Mononitrate ER] 30 mg PO DAILY 09/27/18 [History] Metoprolol Succinate [Toprol Xl] 25 mg PO HS PRN 09/27/18 [History] Ondansetron HCl 8 mg PO TID PRN 09/27/18 [History] Clopidogrel [Plavix] 75 mg PO DAILY 30 Days #30 tablet 10/09/18 [Rx] Dexlansoprazole [Dexilant] 30 mg PO QDPC #30 10/16/18 [Rx] Allergy/AdvReac Type Severity Reaction Status Date / Time No Known Allergies Allergy Verified 07/26/18 09:54 All Systems PM: A 10-system review of systems was performed and is negative for pertinent findings except as documented above in the HPI. Review of systems: - Constitutional: Denies fevers, chills, weight loss, generalized fatigue - Head/Neck: Denies CONNORS, neck stiffness - EENT: Denies vision changes/blurriness - CVS: Denies chest pain, palpitations, BARDALES, orthopnea, edema, PND, - Pulm: Denies SOB, cough, sputum, hematemesis, wheezing - GI: Admits to nausea, vomiting, abdominal pain. Denies diarrhea, constipation, melena - : Denies dysuria, increased frequency, urgency, hematuria, - MSK: Denies joint pain, limited ROM - Skin: Denies rashes, ulcers, color changes, - Neuro: Denies CONNORS, paresthesias, focal deficits, ataxia, - Constitutional Vitals: Temp Pulse Resp BP Pulse Ox 98.6 F 105 20 179/102 98 10/15/18 15:08 10/15/18 18:08 10/15/18 18:08 10/15/18 18:08 10/15/18 18:08 Exam: Gen.: Vitals noted. No acute distress. AAOx3, resting comfortably in bed. HEENT: PERRL/EOMI, oropharynx clear, Normocephalic, atraumatic, MMM Neck: Supple. Cardiac: RRR, no murmur, +S1/S2, No BLE edema Pulmonary: CTA bilaterally, no wheezes, rales or rhonchi, mildly decreased breath sounds in bases, right greater than left. equal chest expansion, unlabored breathing Abdomen: soft, minimally tender in right upper quadrant, BS noted, no guarding, no palpable HSM Back: Nontender throughout. Well-healing incision in right posterior chest wall. Skin: warm and dry, no visible lesions. MSK: ROM intact, no joint swelling noted, gait no assessed while in bed. Non tender calf or clubbing. Fistula on left forearm with palpable thrill and bruit Neuro: A&Ox3, moves all extremities, no focal deficits, sensation intact Psych: Appropriate mood and behavior, AOx3 Internal Med - H&P Results - Labs CBC & Chem 7: 10/15/18 15:22 10/15/18 15:22 Labs: Short CBC 10/15/18 Range/Units 15:22 WBC 8.7 (4.3-11.1) K/mcL Hgb 9.8 L (12.9-16.9) g/dL Hct 29.2 L (37.5-50.1) % Plt Count 315 D (140-400) K/mcL Neutrophils # 7.6 (1.6-8.9) K/mcL BMP 10/15/18 15:22 Sodium 139 Potassium 4.1 Chloride 96 L Carbon Dioxide 27 BUN 74 H Creatinine 6.21 H Glucose 177 H Calcium 8.4 L Cardiac Enzymes 10/15/18 Range/Units 15:22 Troponin I 0.05 H* (< 0.04) ng/mL Liver Function 10/15/18 Range/Units 15:22 Total Bilirubin 0.3 (0.3-1.0) mg/dL Direct Bilirubin 0.1 (0.0-0.2) mg/dL AST 45 H (13-39) Units/L ALT 58 H (7-52) Units/L Alkaline Phosphatase 117 H (34-104) Units/L Albumin 3.2 L (3.5-5.7) g/dL - Impressions ITS Impressions Chest X-Ray 10/15/18 14:52 IMPRESSION: Interval improvement in subcutaneous emphysema in the right chest wall with interval removal right thoracostomy tubes. No discrete pneumothorax. Small right pleural effusion with adjacent airspace opacity. D/ / Chrissie Wolff MD / Chrissie Wolff MD Interpreting Provider: Chrissie Wolff MD Chest CT 10/15/18 16:17 IMPRESSION: 1. Decrease in the amount of pleural fluid on the right side. Increased density seen within the pleural fluid could represent hemorrhage or debris. Gas seen within the pleural fluid collection as well could represent recent instrumentation or possibly infection. 2. Gas in the right lateral chest wall 3. Compressive atelectasis in the right lower lobe is unchanged D/ / Pietro Haro MD / Pietro Haro MD Interpreting Provider: Pietro Haro MD Abdomen/Pelvis CT 10/15/18 16:19 IMPRESSION: There is mural thickening involving the lower esophagus, suggesting esophagitis. Moderate gastric distention noted as well. Otherwise, no abnormalities are identified to explain the patient's epigastric pain. No evidence of small bowel obstruction. Mild diverticulosis, but without CT evidence of diverticulitis. Redemonstration of urinary bladder mural thickening along with surrounding fat stranding, concerning for cystitis. Correlation with urinalysis would be helpful. Please refer to the chest CT report performed concurrently for further details regarding the right lower lung and the right chest wall. D/ / Mitchell Flores MD / Mitchell Flores MD Interpreting Provider: Mitchell Flores MD - Assessment and Plan (1) Esophagitis Current Visit: Yes Status: Acute Assessment and plan: - Suspect that this is the etiology of patient's nausea, vomiting, chest discomfort - Patient does have a chronic history and per medication review is on Carafate, Protonix, Pepcid - Patient does report improvement of symptoms after medications administered in the emergency department - CT scan of the abdomen does show evidence of esophagitis, cystitis however patient is not having urinary symptoms - Alternatively, symptoms could be from over dialysis Plan - Continue supportive care including antiemetics, acid reduction, Carafate - If patient continues to have symptoms, consider GI cocktail - Clear liquid diet with advance as able (2) Intractable nausea and vomiting Current Visit: Yes Status: Acute Assessment and plan: As above Qualifiers: Vomiting type: unspecified Qualified Code(s): R11.2 - Nausea with vomiting, unspecified (3) History of chest tube placement Current Visit: Yes Status: Acute Assessment and plan: Patient with chest tube placement for recurrent pleural effusions, discharged on 09/30/18 - Patient reports improvement of symptoms and no current shortness of breath - Chest x-ray and CT scan of the chest show improvement of pleural effusions with increasing of density in the pleural fluid may represent hemorrhage versus debris - Also noted was gas in the pleural cavity as well as chest wall which may be secondary to recent instrumentation - CT surgery was called in the emergency room, no immediate intervention planned Plan - Suspect that these are post intervention changes and did not represent infection given no evidence of new symptoms or concerning laboratory findings - We will continue to monitor and patient will follow-up as an outpatient (4) Hypertension Current Visit: No Status: Chronic Assessment and plan: Elevated on presentation in the 180s systolic May be secondary to pain, incomplete dialysis We will continue home medications once confirmed Qualifiers: Hypertension type: essential hypertension Qualified Code(s): I10 - Essential (primary) hypertension (5) Diabetes Current Visit: Yes Status: Chronic Assessment and plan: - Known history of type 2 diabetes, insulin-dependent - Blood sugar presentation of 177 - Hemoglobin A1c of 9.6%, in September 2017 - Continue home basal insulin, sliding scale insulin, ADA diet Qualifiers: Diabetes mellitus type: type 2 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: without usp use Diabetes mellitus complication status: with kidney complications Diabetes mellitus complication detail: with chronic kidney disease Chronic kidney disease stage: on chronic dialysis Qualified Code(s): E11.22 - Type 2 diabetes mellitus with diabetic chronic kidney disease; N18.6 - End stage renal disease; Z99.2 - Dependence on renal dialysis (6) ESRD (end stage renal disease) Current Visit: Yes Status: Chronic Assessment and plan: - History of ESRD on Thursday, Thursday HD - Patient follows with [facility] - Etiology is likely uncontrolled diabetes - Patient was able to participate in age she assessment and does not appear to be fluid overloaded - Not acidotic, K acceptable Plan - No indications for HD at this time. Consider Nephro consult if patient is still admitted on Thursday for regularly scheduled HD - Renally dose medications, avoid nephrotoxins (7) Anemia in chronic kidney disease Current Visit: Yes Status: Chronic Assessment and plan: Hemoglobin stable today at 9.8 This appears to be at or improved from baseline No signs or symptoms of bleeding Suspect that CT findings in the chest do not represent hemorrhage, suspect this is more likely to be debris from recent chest tube Plan Continue to trend, monitor for signs of bleed Qualifiers: Chronic kidney disease stage: on chronic dialysis Qualified Code(s): N18.6 - End stage renal disease; D63.1 - Anemia in chronic kidney disease; Z99.2 - Dependence on renal dialysis (8) Elevated troponin Current Visit: Yes Status: Acute Assessment and plan: - Troponin 0.05 - No complaints of chest pain in the setting of ESRD - Suspect this is related to his nausea and vomiting - We will trend and continue to monitor (9) CAD (coronary artery disease) Current Visit: Yes Status: Chronic Assessment and plan: - Known history with reported stent placement approximately one year ago - Patient reports this pain is different than his cardiac pain that he had at that time - Troponin mildly elevated as above however suspect that this is chronic in the setting of ESRD - We will trend troponin, continue aspirin, Plavix, statin, beta jesse Qualifiers: Coronary Disease-Associated Artery/Lesion type: [place] artery [place] vs. transplanted heart: [place] heart Associated angina: without angina Qualified Code(s): I25.10 - Atherosclerotic heart disease of [place] coronary artery without angina pectoris (10) DVT prophylaxis Current Visit: Yes Status: Acute Assessment and plan: Subcutaneous heparin - Time Spent With Patient Total time spent is greater than 50% in coordination of care (as documented) at patient's floor/unit and/or counseling patient: <Libby Fischer - Last Filed: 10/16/18 15:29> Date of Encounter: 10/15/18 Internal Medicine - H&P: HPI History of present illness: Mr. Hernandez is a 53 year old male All Systems PM: A 10-system review of systems was performed and is negative for pertinent findings except as documented above in the HPI. - Constitutional Vitals: Temp Pulse Resp BP Pulse Ox 98.2 F 98 16 184/77 96 10/16/18 11:40 10/16/18 11:40 10/16/18 11:40 10/16/18 11:40 10/16/18 11:40 Internal Med - H&P Results - Labs CBC & Chem 7: 10/16/18 01:09 10/16/18 01:09 Labs: Short CBC 10/15/18 10/16/18 Range/Units 15:22 01:09 WBC 8.7 7.9 (4.3-11.1) K/mcL Hgb 9.8 L 8.7 L (12.9-16.9) g/dL Hct 29.2 L 26.7 L (37.5-50.1) % Plt Count 315 D 291 (140-400) K/mcL Neutrophils # 7.6 6.0 (1.6-8.9) K/mcL BMP 10/15/18 10/16/18 15:22 01:09 Sodium 139 138 Potassium 4.1 4.8 Chloride 96 L 100 Carbon Dioxide 27 22 L BUN 74 H 89 H Creatinine 6.21 H 6.79 H Glucose 177 H 130 H Calcium 8.4 L 8.1 L Cardiac Enzymes 10/15/18 10/15/18 10/16/18 Range/Units 15:22 21:20 07:36 Troponin I 0.05 H* 0.06 H* 0.22 H* (< 0.04) ng/mL 10/16/18 Range/Units 12:47 Troponin I 0.26 H* (< 0.04) ng/mL Liver Function 10/15/18 Range/Units 15:22 Total Bilirubin 0.3 (0.3-1.0) mg/dL Direct Bilirubin 0.1 (0.0-0.2) mg/dL AST 45 H (13-39) Units/L ALT 58 H (7-52) Units/L Alkaline Phosphatase 117 H (34-104) Units/L Albumin 3.2 L (3.5-5.7) g/dL - Impressions ITS Impressions Chest X-Ray 10/15/18 14:52 IMPRESSION: Interval improvement in subcutaneous emphysema in the right chest wall with interval removal right thoracostomy tubes. No discrete pneumothorax. Small right pleural effusion with adjacent airspace opacity. D/ / Chrissie Wolff MD / Chrissie Wolff MD Interpreting Provider: Chrissie Wolff MD Chest CT 10/15/18 16:17 IMPRESSION: 1. Decrease in the amount of pleural fluid on the right side. Increased density seen within the pleural fluid could represent hemorrhage or debris. Gas seen within the pleural fluid collection as well could represent recent instrumentation or possibly infection. 2. Gas in the right lateral chest wall 3. Compressive atelectasis in the right lower lobe is unchanged D/ / Pietro Haro MD / Pietro Haro MD Interpreting Provider: Pietro Haro MD Abdomen/Pelvis CT 10/15/18 16:19 IMPRESSION: There is mural thickening involving the lower esophagus, suggesting esophagitis. Moderate gastric distention noted as well. Otherwise, no abnormalities are identified to explain the patient's epigastric pain. No evidence of small bowel obstruction. Mild diverticulosis, but without CT evidence of diverticulitis. Redemonstration of urinary bladder mural thickening along with surrounding fat stranding, concerning for cystitis. Correlation with urinalysis would be helpful. Please refer to the chest CT report performed concurrently for further details regarding the right lower lung and the right chest wall. D/ / Mitchell Flores MD / Mitchell Flores MD Interpreting Provider: Mitchell Flores MD - Assessment and Plan (1) Esophagitis Current Visit: Yes Status: Acute (2) Elevated troponin Current Visit: Yes Status: Acute (3) Intractable nausea and vomiting Current Visit: Yes Status: Acute Qualifiers: Vomiting type: unspecified Qualified Code(s): R11.2 - Nausea with vomiting, unspecified (4) History of chest tube placement Current Visit: Yes Status: Acute - Time Spent With Patient Total time spent is greater than 50% in coordination of care (as documented) at patient's floor/unit and/or counseling patient: - Attending Attestation I performed a history and physical examination of the patient and discussed his management with the resident. I reviewed the residents note and agree with the documented findings and plan of care.
[2018-10-15] MEDS ORDERED: Naloxone 0.4 MG/ML INJ IVP PRN (20:02)
[2018-10-15] MEDS ORDERED: traMADol 50 MG TABLET PO PRN (20:05)
[2018-10-15] MEDS ORDERED: Acetaminophen 325 MG TABLET PO PRN (20:05)
[2018-10-15] MEDS ORDERED: *HR* Dextrose 50 % in Water (Syg) 50 ML SYRINGE IVP PRN (20:33)
[2018-10-15] MEDS ORDERED: D5% in Water 1,000 ML IVC PRN (20:33)
[2018-10-15] MEDS ORDERED: Dextrose Gel 15 GM/37.5 ML TUBE PO PRN ×2 (20:33)
[2018-10-15] MEDS: Insulin LISPRO 300 UNITS/3 ML VIAL SQ SCH (22:06)
[2018-10-15] MEDS: Insulin DETEMIR 100 UNIT/ML X5UNITS SQ SCH (22:06)
[2018-10-16] MEDS: Ondansetron 4 MG/2 ML VIAL IVP PRN ×2 (00:38→14:17)
[2018-10-16] MEDS: GI Cocktail 40 ML EACH PO PRN ×2 (00:41→16:13)
[2018-10-16] MEDS: Metoprolol XL (24 HR) Succ 25 MG TAB.ER.24H PO SCH ×2 (01:26→12:02)
[2018-10-16] MEDS: Sucralfate 1 GM TABLET PO SCH ×3 (01:26→20:45)
[2018-10-16 01:54] LABS: Basophils % 0.3 %; Eosinophils # 0.1 K/mcL (0.0-0.6); Hematocrit 26.7 % (37.5-50.1); Hemoglobin 8.7 g/dL (12.9-16.9); Immature Granulocytes % 0.5 % (0-4); Lymphocytes # 0.9 K/mcL (0.6-4.6); Mean Corpuscular HGB Conc 32.6 g/dL (31.6-35.5); Mean Corpuscular Hemoglobin 29.7 pg (28.0-33.3); Mean Corpuscular Volume 91.1 fL (83.0-100.0); Mean Platelet Volume 8.8 fL (9.4-12.4); Monocytes # 0.9 K/mcL (0.0-1.3); Monocytes % 11.3 %; Platelet Count 291 K/mcL (140-400); Red Blood Count 2.93 M/mcL (4.19-5.50); Red Cell Distribution Width 14.6 % (11.5-14.5); Segmented Neutrophils % 75.9 %; White Blood Count 7.9 K/mcL (4.3-11.1)
[2018-10-16 02:34] LABS: Calcium 8.1 mg/dL (8.6-10.3); Magnesium 1.6 mg/dL (1.6-2.6); Phosphorous 5.4 mg/dL (2.7-4.5); Potassium 4.8 mEq/L (3.5-5.1)
[2018-10-16] MEDS: *HR* Heparin 5,000 UNIT/ML VIAL SQ SCH ×2 (05:10→18:42)
--- NOTE | 2018-10-16 06:56 | Cardiothoracic Consult Note ---
Date of Encounter: 10/16/18 Time of Encounter: 06:52 Assessment and Plan (1) Pleural effusion Current Visit: No Status: Resolved The patient is a 53-year-old type II diabetic, hypertensive man with known CAD and end-stage renal disease requiring hemodialysis. The patient began experiencing epigastric discomfort and subsequent nausea and vomiting 4 days prior to admission. The symptoms for particular severe during dialysis yesterday, and the patient was transferred to [facility] for further evaluation. As part of the workup, he underwent a chest CT and abdominal/pelvis CT. The chest CT revealed a small amount of air within the right pleural effusion and a more significant amount of air within the right lateral chest wall. Of note, the patient had undergone a right thoracoscopy with pleurectomy and chemical pleurodesis on 09/30/2018. The patient received Pepcid, Protonix, Reglan, and Zofran last evening for his GI distress and this morning states that he has no further epigastric pain. He has remained afebrile and his vital signs not indicate that he is septic. I believe that the air noted in the pleural fluid in the right lateral chest wall are due to his recent right thoracoscopy and this will resolve with time. The patient is scheduled to see Dr. Koch in the office next week. No cardiovascular intervention is indicated at this time. The assessment and plan as outlined above was discussed with the patient and/or family members who expressed understanding and agreement. All questions were answered. - History of Present Illness Consult date: 10/15/18 Requesting physician: Ashley Taylor Consult reason: Right pleural effusion Chief complaint: Nausea, epigastric discomfort History of present illness: Mr. Hernandez is a 53 year old type II diabetic, hypertensive man with known CAD and end-stage renal disease requiring hemodialysis. Yesterday while at dialysis the patient experienced worsening epigastric discomfort, nausea, and vomiting. He states that he has had the pain for the last 4 days. He denies any chills, fever, or diaphoresis and had been treated for gastric ulcers 3-4 months ago. The patient was transported to [facility] emergency department for evaluation. He underwent a chest CT as well as an abdominal/pelvis CT. The chest CT revealed small amount of air in the right pleural effusion and more substantial air in the right lateral chest wall. The patient had undergone a right thoracoscopy, pleurectomy, and chemical pleurodesis on 10/30/2018. He was asked to evaluate the patient's wounds and to comment on the presence of air in the remaining right pleural effusion and right lateral chest wall. Past Med Surg Social Fam HX - Past Medical History Medical history: coronary artery disease, diabetes, dialysis, hyperlipidemia, hypertension, renal disease, other (Blindness, cholelithiasis, gastric ulcers) Additional medical history: Gastric ulcers, cholelithiasis, near blindness in both eyes. Type II Diabetic Psychiatric history: no psych history - Past Surgical History Surgical History: cholecystectomy, vascular surgery, other (Right thoracoscopy with pleurectomy and chemical pleurodesis) Additional surgical history: Prostate surgery (TURP), left arm av shunt - Social History Smoking Status: Never smoker Smokeless Tobacco Status: No Alcohol use: none Drug use: none Current living situation: Home - Independent Activity Level: Independent ambulation Recent Out of Country Travel Within the Last 8 Weeks: No Exposure or Possible Exposure to Illness During Travel: No - Family History Mother Adopted: No Living Status: Hx Family Cardiac Disorders: Yes (mother stroke) Hx Family Respiratory Disorders: Yes (Dad asthma copd) Hx Family Cancer: Yes (prostate, pancreatic) Hx Family GI Disorders: No Hx Family Endocrine Disorder: Yes (DM) Hx Family Neuromuscular Disorders: No Hx Family Neurologic Disorders: No Hx Family HEENT Disorders: No Hx Family Autoimmune Disorders: No Father Adopted: No Living Status: Hx Family Cardiac Disorders: Yes (father, stents) Hx Family Respiratory Disorders: Yes (father COPD) Hx Family Cancer: Yes (Father prostate cancer uncle colon) Hx Family GI Disorders: No Hx Family Endocrine Disorder: Yes (dM) Hx Family Neuromuscular Disorders: No Hx Family Neurologic Disorders: No Hx Family HEENT Disorders: No Hx Family Autoimmune Disorders: No Medications and Allergies Aspirin [Lo-Dose Aspirin EC] 81 mg PO DAILY 07/30/17 [History] Ergocalciferol (VITAMIN D2) [Vitamin D2] 100,000 unit PO WE 09/24/17 [History] Insulin Glargine,Hum.rec.anlog [Basaglar Kwikpen U-100] 30 unit SQ HS 02/01/18 [History] Tramadol HCl [Ultram] 50 mg PO Q6H PRN 04/15/18 [History] rOPINIRole [Requip] 0.25 mg PO HS 06/18/18 [History] Atorvastatin [Lipitor] 40 mg PO HS 07/26/18 [History] Calcium Carbonate [Calcium] 600 mg PO DAILY 07/26/18 [History] Metoprolol Succinate [Toprol Xl] 25 mg PO QAM 07/26/18 [History] Nitroglycerin [Nitrostat] 0.4 mg SL Q5MIN PRN 07/26/18 [History] Pantoprazole Sodium [Protonix] 40 mg PO DAILY 07/26/18 [History] Sucralfate [Carafate] 1 gm PO BID 08/04/18 [History] Alginate Dressing/Cme-Cell [Maxorb 4"X4" Dressing] 1 each TP DAILY #30 bandage 09/21/18 [Rx] Benzethonium Chloride [Dermal Wound Cleanser] 236 ml TP DAILY #3 cleanser 09/21/18 [Rx] Ranolazine [Ranexa] 500 mg PO DAILY 09/21/18 [History] Insulin ASPART [Novolog Flexpen] 0 unit SQ TIDWM 09/27/18 [History] Isosorbide MONOnitrate [Isosorbide Mononitrate ER] 30 mg PO DAILY 09/27/18 [History] Metoprolol Succinate [Toprol Xl] 25 mg PO HS PRN 09/27/18 [History] Ondansetron HCl 8 mg PO TID PRN 09/27/18 [History] Clopidogrel [Plavix] 75 mg PO DAILY 30 Days #30 tablet 10/09/18 [Rx] Allergy/AdvReac Type Severity Reaction Status Date / Time No Known Allergies Allergy Verified 07/26/18 09:54 All Systems Review: The remainder of the systems were reviewed and are negative Physical Examination Vital Signs, Last 4 Hours Temp Pulse Resp BP Pulse Ox 10/16/18 04:35 98.8 F 95 17 159/74 95 General: Conversant, No Apparent Distress HEENT: Atraumatic, Normocephaly, Trachea midline Neck: No JVD Cardiac: Reg Rate and Rhythm, Normal S1 and S2, No Murmur Lungs: Normal Breath Sounds, No Wheeze, Rales, Rhonchi Neuro: Alert and responsive, No focal deficits noted, Motor nerves intact, Sensory nerves intact Vascular: Normal capillary refill Abdomen: Soft, Non-tender Skin: No rashes noted on visualized skin Musculoskeletal: No Chest Wall Tenderness Extremities: No Clubbing, No Cyanosis, No Edema Results 10/16/18 01:09 10/16/18 01:09 Lab Results, Last 24 hours 10/15/18 10/15/18 10/15/18 15:22 15:22 15:22 WBC 8.7 Hgb 9.8 L Hct 29.2 L Plt Count 315 D INR 1.1 APTT 29.3 Sodium 139 Potassium 4.1 Chloride 96 L Carbon Dioxide 27 BUN 74 H Creatinine 6.21 H Glucose 177 H Calcium 8.4 L Magnesium Total Bilirubin 0.3 AST 45 H ALT 58 H Alkaline Phosphatase 117 H Troponin I 0.05 H* Lipase 29 10/15/18 10/16/18 10/16/18 21:20 01:09 01:09 WBC 7.9 Hgb 8.7 L Hct 26.7 L Plt Count 291 INR APTT Sodium 138 Potassium 4.8 Chloride 100 Carbon Dioxide 22 L BUN 89 H Creatinine 6.79 H Glucose 130 H Calcium 8.1 L Magnesium 1.6 Total Bilirubin AST ALT Alkaline Phosphatase Troponin I 0.06 H* Lipase - Imaging Chest Xray: image reviewed (Small right pleural effusion) Consult Discharge Plan - Plan
[2018-10-16] MEDS: *HR* Promethazine 25 MG/ML VIAL IVP PRN (09:02)
[2018-10-16] MEDS: Pantoprazole 40 MG VIAL IVP SCH (09:04)
[2018-10-16] MEDS: Insulin LISPRO 300 UNITS/3 ML VIAL SQ SCH ×4 (09:10→20:46)
--- NOTE | 2018-10-16 10:13 | Discharge Summary ---
Orders not resulted at time of discharge: Pending orders 10/15/18 14:53 ECG 12 lead ECG [ECG] Stat 10/15/18 16:24 Culture,Blood [BC] Stat Date of Encounter: 10/16/18 Time of Encounter: 10:11 - Discharge Diagnosis (1) Esophagitis Priority: Primary Status: Acute (2) Elevated troponin Priority: Secondary Status: Acute (3) History of chest tube placement Priority: Secondary Status: Acute (4) Intractable nausea and vomiting Priority: Secondary Status: Acute Qualifiers: Vomiting type: unspecified Qualified Code(s): R11.2 - Nausea with vomiting, unspecified Hospital course: Mr. Hernandez is a 53 year old male with history of GERD, end-stage renal disease, CAD, and recent chest tube placement for pleural effusion presents with e pigastric pain and intractable nausea and vomiting and found to have esophagitis on CT imaging. Patient's pain and nausea vomiting resolved with acid blockade. Unclear as to why patient is not on a PPI. Prescribed in the past but has not filled since May. Currently only taking sucralfate. Recommend patient take a daily PPI and follow up with primary care provider. Of note, patient also had evidence of gas within the pleural cavity on CT imaging. CT surgery was consulted given recent chest tube placement. Believe this is from recent instrumentation and recommend follow-up in clinic next week as scheduled. Patient also had redemonstration of urinary bladder mural thickening concerning for cystitis but no symptoms. Discharge discussed with: patient - Time Spent with Patient Total time spent providing and/or coordinating discharge services: 35 minutes Time spent: Greater than 30 minutes - Discharge Medications Prescriptions: New Dexlansoprazole [Dexilant] 30 mg PO QDPC #30 cap.bp Continued Aspirin [Lo-Dose Aspirin EC] 81 mg PO DAILY Ergocalciferol (VITAMIN D2) [Vitamin D2] 100,000 unit PO WE Insulin Glargine,Hum.rec.anlog [Basaglar Kwikpen U-100] 30 unit SQ HS Tramadol HCl [Ultram] 50 mg PO Q6H PRN PRN Reason: Pain rOPINIRole [Requip] 0.25 mg PO HS Atorvastatin [Lipitor] 40 mg PO HS Calcium Carbonate [Calcium] 600 mg PO DAILY Metoprolol Succinate [Toprol Xl] 25 mg PO QAM Nitroglycerin [Nitrostat] 0.4 mg SL Q5MIN PRN PRN Reason: Chest Pain Ranolazine [Ranexa] 500 mg PO DAILY Benzethonium Chloride [Dermal Wound Cleanser] 236 ml TP DAILY #3 cleanser Alginate Dressing/Cme-Cell [Maxorb 4"X4" Dressing] 1 each TP DAILY #30 bandage Isosorbide MONOnitrate [Isosorbide Mononitrate ER] 30 mg PO DAILY Metoprolol Succinate [Toprol Xl] 25 mg PO HS PRN PRN Reason: Blood Pressure Ondansetron HCl 8 mg PO TID PRN PRN Reason: NAUSEA/VOMITING Insulin ASPART [Novolog Flexpen] 0 unit SQ TIDWM Clopidogrel [Plavix] 75 mg PO DAILY 30 Days #30 tablet Discontinued Pantoprazole Sodium [Protonix] 40 mg PO DAILY Sucralfate [Carafate] 1 gm PO BID Home Medications: Aspirin [Lo-Dose Aspirin EC] 81 mg PO DAILY 07/30/17 [History] Ergocalciferol (VITAMIN D2) [Vitamin D2] 100,000 unit PO WE 09/24/17 [History] Insulin Glargine,Hum.rec.anlog [Basaglar Kwikpen U-100] 30 unit SQ HS 02/01/18 [History] Tramadol HCl [Ultram] 50 mg PO Q6H PRN 04/15/18 [History] rOPINIRole [Requip] 0.25 mg PO HS 06/18/18 [History] Atorvastatin [Lipitor] 40 mg PO HS 07/26/18 [History] Calcium Carbonate [Calcium] 600 mg PO DAILY 07/26/18 [History] Metoprolol Succinate [Toprol Xl] 25 mg PO QAM 07/26/18 [History] Nitroglycerin [Nitrostat] 0.4 mg SL Q5MIN PRN 07/26/18 [History] Alginate Dressing/Cme-Cell [Maxorb 4"X4" Dressing] 1 each TP DAILY #30 bandage 09/21/18 [Rx] Benzethonium Chloride [Dermal Wound Cleanser] 236 ml TP DAILY #3 cleanser 09/21/18 [Rx] Ranolazine [Ranexa] 500 mg PO DAILY 09/21/18 [History] Insulin ASPART [Novolog Flexpen] 0 unit SQ TIDWM 09/27/18 [History] Isosorbide MONOnitrate [Isosorbide Mononitrate ER] 30 mg PO DAILY 09/27/18 [History] Metoprolol Succinate [Toprol Xl] 25 mg PO HS PRN 09/27/18 [History] Ondansetron HCl 8 mg PO TID PRN 09/27/18 [History] Clopidogrel [Plavix] 75 mg PO DAILY 30 Days #30 tablet 10/09/18 [Rx] Dexlansoprazole [Dexilant] 30 mg PO QDPC #30 cap.bp 10/16/18 [Rx] Allergies/Adverse Reactions: Allergy/AdvReac Type Severity Reaction Status Date / Time No Known Allergies Allergy Verified 07/26/18 09:54 Date of admission: 10/15/18 18:54 Primary care physician: Fausto Jacques MD Consults: 10/15/18 18:44 Consult to Cardiothoracic Surgery [CONS] Stat Consulting Provider: Cardiothoracic Surgery [place] Reason for Consult: recent pleurodesis Time Notified: 18:30 Call Completed: Yes - Constitutional Vitals: Temp Pulse Resp BP Pulse Ox 99.1 F 91 15 148/84 93 10/16/18 07:33 10/16/18 07:33 10/16/18 07:33 10/16/18 07:33 10/16/18 07:33 Exam: General: Ill-appearing and in no acute distress HEENT: No erythema of posterior pharynx. No exudates. Lymphatics: No mandibular or cervical lymphadenopathy Cardiovascular: RRR. No murmurs. No chest wall tenderness. Lungs: Clear to auscelltation bilaterally. Regular chest rise. Abdomen: Non-tender. No rebound or gaurding. Nl bowel sounds. Extremities: No edema. 2+ pulses radial and pedal pulses Skin: No rahses, abrasions, or contusions. Nl cap refill. Psych: Nl attention. 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 5/5 strength. Sensation to light touch and pinprick intact. - Patient Status Disposition: Home, Self-Care Functional capacity at discharge: independent ambulation Overall status at discharge: patient is back to baseline - Discharge Instructions Follow Up With: Fausto Jacques MD [Primary Care Provider] - Forms: ED Satisfaction Letter, Work/School Release - Diet and Activity Activity: increase activity as tolerated Diet: advance to your usual diet
[2018-10-16] MEDS: Isosorbide MONOnitrate (24 HR) 30 MG TAB.ER.24H PO SCH (12:02)
[2018-10-16] MEDS: Aspirin Enteric Coated 81 MG Tablet PO SCH (12:02)
[2018-10-16 16:23] LABS: Bilirubin,Urine Negative (Negative); Blood,Urine Small (Negative); Clarity,Urine Clear (Clear); Color,Urine Yellow (Yellow); Glucose,Urine (UA) 250 mg/dL (Normal); Ketones,Urine Negative (Negative); Leukocyte Esterase,Urine Trace (Negative); Nitrite,Urine Negative (Negative); PH,Urine 7.5 pH Units (5.0-8.0); Protein,Urine >=300 mg/dL (Neg-Trace); Specific Gravity,Urine 1.012 (1.010-1.025); Urobilinogen,Urine Normal (Normal)
[2018-10-16 16:25] LABS: Bacteria,Urine None Seen per hpf (None-Few); Hyaline Casts,Urine None Seen per lpf (None-Few); Squamous Epithelial Cell,Urine Many per lpf (None-Few); WBC,Urine 50-100 per hpf (0-3)
[2018-10-16] MEDS: Insulin DETEMIR 100 UNIT/ML X5UNITS SQ SCH (20:46)
--- NOTE | 2018-10-16 23:54 | Nephrology Consult Note ---
Date of Encounter: 10/16/18 Time of Encounter: 15:00 Assessment and Plan (1) ESRD (end stage renal disease) Current Visit: Yes Status: Chronic No HD needed at thit time, next HD for thursday whether in/outpatient Renal diet advised Fluid restriction advised Lytes stable (2) Esophagitis Current Visit: Yes Status: Acute Per primary (3) Gastritis Current Visit: Yes Status: Acute Per primary Qualifiers: Gastritis type: unspecified gastritis Chronicity: acute Gastritis bleeding: without bleeding Qualified Code(s): K29.00 - Acute gastritis without bleeding (4) Intractable nausea and vomiting Current Visit: Yes Status: Acute Qualifiers: Vomiting type: unspecified Qualified Code(s): R11.2 - Nausea with vomiting, unspecified (5) Anemia in chronic kidney disease Current Visit: Yes Status: Chronic Hgb noted at 8.7, will monitor Receives EPO chronically but not as prescribed due to noncompliance Transfusion parameters per primary team Qualifiers: Chronic kidney disease stage: on chronic dialysis Qualified Code(s): N18.6 - End stage renal disease; D63.1 - Anemia in chronic kidney disease; Z99.2 - Dependence on renal dialysis History of Present Illness - Reason for Consult Consult date: 10/16/18 hypokalemia - History of Present Illness 53 year old male with past medical history of ESRD on HD MWF with a history of noncompliance most wednesdays diabetes, hypertension, CAD admitted with complaint of intractable nausea. Pt was at HD and requested termination 40mins earlier due to symptoms. he also reports vomiting and right sided abd pain. Pt has been in/out of hospital for sometime now with the last being when he had pleurodesis with Dr Koch. Pt seen and examined reports he was diagnosed with gastritis and esophagitis and the medications are "helping". Past Med Surg Social Fam HX - Past Medical History Medical history: coronary artery disease, diabetes, dialysis, hyperlipidemia, hypertension, renal disease, other (Blindness, cholelithiasis, gastric ulcers) Additional medical history: Gastric ulcers, cholelithiasis, near blindness in both eyes. Type II Diabetic Psychiatric history: no psych history - Past Surgical History Surgical History: cholecystectomy, vascular surgery, other (Right thoracoscopy with pleurectomy and chemical pleurodesis) Additional surgical history: Prostate surgery (TURP), left arm av shunt - Social History Smoking Status: Never smoker Smokeless Tobacco Status: No Alcohol use: none Drug use: none - Family History Mother Adopted: No Living Status: Hx Family Cardiac Disorders: Yes (mother stroke) Hx Family Respiratory Disorders: Yes (Dad asthma copd) Hx Family Cancer: Yes (prostate, pancreatic) Hx Family GI Disorders: No Hx Family Endocrine Disorder: Yes (DM) Hx Family Neuromuscular Disorders: No Hx Family Neurologic Disorders: No Hx Family HEENT Disorders: No Hx Family Autoimmune Disorders: No Father Adopted: No Living Status: Hx Family Cardiac Disorders: Yes (father, stents) Hx Family Respiratory Disorders: Yes (father COPD) Hx Family Cancer: Yes (Father prostate cancer uncle colon) Hx Family GI Disorders: No Hx Family Endocrine Disorder: Yes (dM) Hx Family Neuromuscular Disorders: No Hx Family Neurologic Disorders: No Hx Family HEENT Disorders: No Hx Family Autoimmune Disorders: No Medications and Allergies Aspirin [Lo-Dose Aspirin EC] 81 mg PO DAILY 07/30/17 [History] Ergocalciferol (VITAMIN D2) [Vitamin D2] 100,000 unit PO WE 09/24/17 [History] Insulin Glargine,Hum.rec.anlog [Basaglar Kwikpen U-100] 30 unit SQ HS 02/01/18 [History] Tramadol HCl [Ultram] 50 mg PO Q6H PRN 04/15/18 [History] rOPINIRole [Requip] 0.25 mg PO HS 06/18/18 [History] Atorvastatin [Lipitor] 40 mg PO HS 07/26/18 [History] Calcium Carbonate [Calcium] 600 mg PO DAILY 07/26/18 [History] Metoprolol Succinate [Toprol Xl] 25 mg PO QAM 07/26/18 [History] Nitroglycerin [Nitrostat] 0.4 mg SL Q5MIN PRN 07/26/18 [History] Alginate Dressing/Cme-Cell [Maxorb 4"X4" Dressing] 1 each TP DAILY #30 bandage 09/21/18 [Rx] Benzethonium Chloride [Dermal Wound Cleanser] 236 ml TP DAILY #3 cleanser 09/21/18 [Rx] Ranolazine [Ranexa] 500 mg PO DAILY 09/21/18 [History] Insulin ASPART [Novolog Flexpen] 0 unit SQ TIDWM 09/27/18 [History] Isosorbide MONOnitrate [Isosorbide Mononitrate ER] 30 mg PO DAILY 09/27/18 [History] Metoprolol Succinate [Toprol Xl] 25 mg PO HS PRN 09/27/18 [History] Ondansetron HCl 8 mg PO TID PRN 09/27/18 [History] Clopidogrel [Plavix] 75 mg PO DAILY 30 Days #30 tablet 10/09/18 [Rx] Dexlansoprazole [Dexilant] 30 mg PO QDPC #30 bp 10/16/18 [Rx] Allergy/AdvReac Type Severity Reaction Status Date / Time No Known Allergies Allergy Verified 07/26/18 09:54 Review of Systems All Systems review (narrative): The rest of systems are negative Constitutional: fatigue (admits) Cardiovascular: chest pain (denies), leg edema (denies) Respiratory: dyspnea (denies) Gastrointestinal: abdominal pain (admits), nausea (admits), vomiting (admits) Exam - Vital Signs Vital signs: Initial Vital Signs Temp Pulse Resp BP Pulse Ox 98.6 F 84 19 182/107 98 10/15/18 15:08 10/15/18 15:08 10/15/18 15:08 10/15/18 15:08 10/15/18 15:08 Vital Signs - Last 8 Hours Temp Pulse Resp BP Pulse Ox 10/16/18 19:38 99 F 82 17 153/71 96 10/16/18 16:43 98.2 F 86 16 178/70 98 Intake and Output 10/16/18 10/16/18 10/16/18 07:59 15:59 23:59 Intake Total 0 / 0 Output Total 0 / 0 Balance 0 / 0 0 / 0 Intake: Oral 0 / 0 Output: Urine 0 / 0 Other: Meal Lunch Percent of Meal Consumed 0% Weight 99.4 kg Blood Glucose* 94 76 103 Patient Weight 10/16/18 23:59 Weight 99.4 kg - General Appearance General appearance: chronically ill (NAD) EENT: ATNC, mucous membranes moist Neck: no JVD, supple Additional Comments: good areation with slightly decreased BS bases R>L Cardiology: no edema, normal S1, normal S2 - Dialysis Access Dialysis Vascular Access: Arteriovenous Fistula thrill: Yes bruit: Yes (ecchymosis noted to the side, NT) Gastrointestinal: tenderness (RUQ), no guarding, obese Integumentary: warm and dry Neurologic: no focal deficit Musculoskeletal: no deformities Psychiatric: mood/affect appropriate Results - Lab Results 10/16/18 01:09 10/16/18 01:09 Consult Discharge Plan - Plan Instructions: Dexlansoprazole (By mouth) Referrals: Fausto Jacques MD [Primary Care Provider] - (Web Requested) Prescriptions: Dexlansoprazole [Dexilant] 30 mg PO QDPC #30 cap.bp
[2018-10-17] MEDS: *HR* Heparin 5,000 UNIT/ML VIAL SQ SCH (04:04)
[2018-10-17] MEDS: GI Cocktail 40 ML EACH PO PRN (04:04)
[2018-10-17 07:47] VITALS: BP 168/81
--- NOTE | 2018-10-17 08:32 | Internal Med Progress Note ---
Hospitalist Progress Note - Encounter Date of Encounter: 10/17/18 Time of Encounter: 08:30 - Subjective Interval History: Patient did not leave last night because troponin resulted in in the evening. Ready to go today and denies chest pain. All questions were answered. PPI sent to pharmacy. - Exam Vitals: Temp Pulse Resp BP Pulse Ox 98.7 F 85 16 168/81 94 10/17/18 07:42 10/17/18 07:42 10/17/18 07:42 10/17/18 07:42 10/17/18 07:42 Exam: General: Ill-appearing and in no acute distress HEENT: No erythema of posterior pharynx. No exudates. Lymphatics: No mandibular or cervical lymphadenopathy Cardiovascular: RRR. No murmurs. No chest wall tenderness. Lungs: Clear to auscelltation bilaterally. Regular chest rise. Abdomen: Non-tender. No rebound or gaurding. Nl bowel sounds. Extremities: No edema. 2+ pulses radial and pedal pulses Skin: No rahses, abrasions, or contusions. Nl cap refill. Psych: Nl attention. A&Ox3 Neuro: director critical care II-XII intact. 5/5 strength. Sensation to light touch and pinprick intact. - Assessment and Plan (1) Esophagitis Current Visit: Yes Status: Acute Assessment and Plan: Patient presented with epigastric pain and found to have esophagitis on imaging. Epigastric pain resolved with acid blockade and patient was sent home on a PPI. Troponin was elevated but not significantly in an end-stage renal disease patient and trended down before admission. (2) Elevated troponin Current Visit: Yes Status: Acute Assessment and Plan: See above (3) History of chest tube placement Current Visit: Yes Status: Acute Assessment and Plan: Evaluated by CT surgery inpatient and healing appropriately (4) Intractable nausea and vomiting Current Visit: Yes Status: Acute Assessment and Plan: In setting of esophagitis now resolved - Time Spent with Patient Total time spent is greater than 50% in coordination of care (as documented) at patient's floor/unit and/or counseling patient: Internal Medicine: Result - Labs CBC & Chem 7: 10/16/18 01:09 10/16/18 01:09 Labs: Cardiac Enzymes 10/16/18 10/16/18 Range/Units 12:47 18:16 Troponin I 0.26 H* 0.24 H* (< 0.04) ng/mL Urine 10/16/18 Range/Units 14:15 Urine Color Yellow (Yellow) Urine Clarity Clear (Clear) Urine pH 7.5 (5.0-8.0) pH Units Ur Specific Avis 1.012 (1.010-1.025) Urine Protein >=300 H (Neg-Trace) mg/dL Urine Glucose (UA) 250 H (Normal) mg/dL - ABG Interpretation ABG results: PT/INR, D-dimer PT 13.0 Seconds (9.4-12.1) H 10/15/18 15:22 Consult Discharge Plan - Plan Instructions: Dexlansoprazole (By mouth) Referrals: Fausto Jacques MD [Primary Care Provider] - (Web Requested) Prescriptions: Dexlansoprazole [Dexilant] 30 mg PO QDPC #30 cap.dr.bp (4) Intractable nausea and vomiting Qualifiers: Vomiting type: unspecified Qualified Code(s): R11.2 - Nausea with vomiting, unspecified
[2018-10-17] MEDS: Isosorbide MONOnitrate (24 HR) 30 MG TAB.ER.24H PO SCH (08:48)
[2018-10-17] MEDS: Aspirin Enteric Coated 81 MG Tablet PO SCH (08:48)
[2018-10-17] MEDS: Metoprolol XL (24 HR) Succ 25 MG TAB.ER.24H PO SCH (08:48)
[2018-10-17] MEDS: Pantoprazole 40 MG VIAL IVP SCH (08:49)
[2018-10-17] MEDS: *HR* Promethazine 25 MG/ML VIAL IVP PRN (08:49)
[2018-10-17] MEDS: Sucralfate 1 GM TABLET PO SCH (08:49)
[2018-10-17] MEDS: Insulin LISPRO 300 UNITS/3 ML VIAL SQ SCH (08:57)
--- NOTE | 2018-10-17 09:25 | Electrocardiograph Report ---
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
== END 2018-10-17 09:27 | disposition home or self-care (01) ==
LOC: 2ANU 14:34 → EMEROOARM 14:34 → SUATTDRO 18:54 → 2ANU 20:19
PROVIDERS: ADMIT Internal Medicine; ATTEND Internal Medicine

== ENCOUNTER 2018-11-07 00:20 | Inpatient (IN) ==
[2018-11-07] MEDS ORDERED: Ondansetron 4 MG/2 ML VIAL IVP ONE (00:34)
[2018-11-07] MEDS ORDERED: Pantoprazole 40 MG VIAL IVP ONE (00:35)
[2018-11-07] MEDS ORDERED: Isovue-370 500 ML BOTTLE IVP ONE (01:02)
--- NOTE | 2018-11-07 01:14 | Emergency Department Note ---
Disposition Clinical Impression: ESRD (end stage renal disease), ESRD (end stage renal disease) on dialysis Disposition: Admitted As Inpatient Time of Disposition: 05:32 General Adult HPI - General Chief complaint: ED Nausea/Vomiting/Diarrhea Stated complaint: abdominal pain Time Seen by Provider: 11/07/18 00:25 Source: patient, EMS Mode of arrival: EMS Nursing Notes Reviewed: Yes Vital Signs Reviewed: Yes - History of Present Illness HPI Narrative: Patient is a 53-year-old male with a past medical history of GERD, esophagitis, end-stage renal disease, coronary artery disease, cystitis, hypertension, umbilical hernia who presents with hematemesis. States that about 2-3 hours ago he had 2 episodes of bloody emesis. Claims that he was producing "chunks of blood." Says he has never had symptoms like this before. States that when he vomited he had some chest pain. Says that his left arm feels weak and his left hand is numb also starting about 2-3 hours ago. Dialysis fistula also located in left forearm. Currently endorses some abdominal pain in the right upper quadrant that radiates to his back. Endorses significant nausea. No fevers no chills. Patient is currently on dialysis Mondays and Fridays. Does produce urine. Patient does endorse some diarrhea with light brown stool. No melena or bright red blood per rectum. Pain Scale: 7 - Related Data Home Medications Medication Instructions Recorded Confirmed Aspirin [Lo-Dose Aspirin EC] 81 mg PO DAILY 07/30/17 10/24/18 Ergocalciferol (VITAMIN D2) 100,000 unit PO WE 09/24/17 10/24/18 [Vitamin D2] Insulin Glargine,Hum.rec.anlog 30 unit SQ HS 02/01/18 10/24/18 [Basaglar Kwikpen U-100] rOPINIRole [Requip] 0.25 mg PO HS 06/18/18 10/24/18 Atorvastatin [Lipitor] 40 mg PO HS 07/26/18 10/24/18 Calcium Carbonate [Calcium] 600 mg PO DAILY 07/26/18 10/24/18 Metoprolol Succinate [Toprol Xl] 25 mg PO QAM 07/26/18 10/24/18 Nitroglycerin [Nitrostat] 0.4 mg SL Q5MIN PRN 07/26/18 10/24/18 Insulin ASPART [Novolog Flexpen] 0 unit SQ BIDWM 09/27/18 10/24/18 Isosorbide MONOnitrate [Isosorbide 90 mg PO DAILY 09/27/18 10/25/18 Mononitrate ER] Ondansetron HCl 8 mg PO TID PRN 09/27/18 10/24/18 Previous Rx's Medication Instructions Recorded Clopidogrel [Plavix] 75 mg PO DAILY 30 Days #30 tablet 10/09/18 Pantoprazole Sodium 40 mg PO DAILY 30 Days #30 10/26/18 tablet. Sucralfate [Carafate] 1 gm PO QIDAC 30 Days #90 tablet 10/26/18 Allergies Allergy/AdvReac Type Severity Reaction Status Date / Time No Known Allergies Allergy Verified 10/24/18 13:58 All systems ED: reviewed and negative except as stated. Review of Systems: As Per HPI Constitutional: Reports: weakness. Denies: fever, chills Eyes: Denies: eye pain, eye discharge, vision change ENT ED: Denies: ear pain, throat pain, dental pain Cardiovascular: Reports: chest pain. Denies: palpitations, dyspnea on exertion Respiratory: Denies: cough, dyspnea, wheezes Gastrointestinal: Reports: abdominal pain, nausea, vomiting Genitourinary: Denies: urgency, dysuria, frequency Musculoskeletal: Denies: back pain, neck pain, joint swelling Integumentary: Denies: rash, abrasion, lesions Neurological: Denies: headache, weakness, numbness Psychiatric: Denies: anxiety, depression, suicidal thoughts Endocrine: Denies: fatigue, heat or cold intolerance, polydipsia Past Medical History - Past Medical History Attestation: Yes The following information was validated with the patient. Source: patient Medical history: Reports: coronary artery disease, diabetes, dialysis, h yperlipidemia, hypertension, renal disease, other Surgical history: Reports: cholecystectomy, vascular surgery, other (Right thoracoscopy with pleurectomy and chemical pleurodesis) Psychiatric history: Reports: no psych history - Social History Smoking Status: Never smoker Smokeless Tobacco Status: No Alcohol use: Reports: none Drug use: Reports: none Physical Exam GEN: well-appearing, no acute distress, conversant. HEENT: NC, AT. MMM. EOMI, clear conjunctiva, oropharynx clear. NECK: Supple without lymphadenopathy. No stiffness or restricted ROM. HEART: Normal rate and regular rhythm, normal S1/S1, no m/r/g LUNGS: CTAB, moving air well. No crackles or wheezes are heard. ABDOMEN: Soft, nondistended, tender in the left upper quadrant to palpation with no rebound guarding or rigidity. BACK: No CVAT, no obvious deformity. EXTREMITIES: Without cyanosis, clubbing or edema. Chronic nonhealing ulcers surface of bilateral shins. Full peripheral pulses in all extremities. NEUROLOGICAL: Grossly nonfocal. Alert and oriented, moving all 4 extremities. CN not formally tested but appear grossly intact. Observed to ambulate with normal gait. Skin: Warm and dry without any rash. - General General appearance: alert, in no apparent distress Course Course Narrative: Patient was seen and examined. Systolic blood pressure was in the 170s. Vitals otherwise within normal limits. Labs are obtained including type and screen. CT scan of the chest abdomen and pelvis were obtained with contrast. Patient was started with 1 L of normal saline, PPI, and zofran for nausea. - Reevaluation(s) Reevaluation #1: Nephrology was consulted and was made aware patient to have dialysis tomorrow. Communicated with Dr. Stout. Time: 03:00 Reevaluation #2: Patient had a run of SVTs with some chest pain. Repeat EKG was ordered. Time: 03:30 Reevaluation #3: Spoke with general surgery over the phone regarding fluid collection in his abdomen. Surgeon states that fluid collection is typical postsurgical finding after a hernia repair. Usually take several weeks to resolve. Patient also does not have Vital Signs Temperature 99.1 F 11/07/18 00:33 Pulse Rate 91 11/07/18 00:33 Respiratory Rate 19 11/07/18 00:33 Blood Pressure 174/84 11/07/18 00:33 O2 Sat by Pulse Oximetry 99 11/07/18 00:33 Temperature 99.1 F 11/07/18 00:33 Pulse Rate 84 11/07/18 05:02 Respiratory Rate 16 11/07/18 05:02 Blood Pressure 173/86 11/07/18 05:02 O2 Sat by Pulse Oximetry 98 11/07/18 05:02 Oxygen Delivery Oxygen Delivery Room Air Medical Decision Making - [facility] Narrative Medical decision making narrative: Patient is a 53-year-old male who presents with bloody vomiting. Differential includes but is not limited to esophagitis, peptic ulcer disease, Toya-Rick, Boerhaave, dissection, pneumothorax, varices. Labs significant for hemoglobin of 9 which is at baseline. Patient has no history of liver disease making varices less likely. Patient also had a troponin of 0.05 although he has chronically elevated troponins. EKG was unremarkable. Low suspicion for [place], ACS. Symptoms were initially concerning for dissection, CTA was ordered. CTA remarkable for an umbilical hernia with small amount of fluid and extension of fluid into the peritoneal cavity. No dissection. Chest x-ray also showed no evidence of pneumothorax. Spoke with surgery, low suspicion for abscess at this time since the wound is clean, dry, intact with no drainage or tenderness or erythema. Patient also has no white count or other signs of infection. Fluid collection around hernia repair is a typical postsurgical finding. Patient will be admitted to medicine for dialysis after given IV contrast after CT study.. Patient was communicated to Dr. Stout for dialysis the following day. Patient was communicated to the hospitalists and accepted for admission. Hematemesis is likely due to history of esophagitis. Toya-Rick or Boerhaave's less likely given that the patient is stable and does not have any signs of perforation. At discharge patient is stable and resting comfortably. - Medical Records Medical records reviewed: Yes I reviewed the patient's medical records. - Lab Data Lab results reviewed: Yes I reviewed the patient's lab results. Result diagrams: 11/07/18 02:48 11/07/18 02:48 Lab Results 11/07/18 11/07/18 11/07/18 Range/Units 02:48 02:48 04:15 WBC 6.9 (4.3-11.1) K/mcL RBC 3.01 L (4.19-5.50) M/mcL Hgb 9.0 L (12.9-16.9) g/dL Hct 27.4 L (37.5-50.1) % MCV 91.0 (83.0-100.0) fL MCH 29.9 (28.0-33.3) pg MCHC 32.8 (31.6-35.5) g/dL RDW 13.8 (11.5-14.5) % Plt Count 249 (140-400) K/mcL MPV 8.7 L (9.4-12.4) fL Immature Gran % 0.4 (0-4) % Seg Neutrophils % 65.0 % Lymphocytes % 18.5 % Monocytes % 13.5 % Eosinophils % 2.3 % Basophils % 0.3 % Neutrophils # 4.5 (1.6-8.9) K/mcL Lymphocytes # 1.3 (0.6-4.6) K/mcL Monocytes # 0.9 (0.0-1.3) K/mcL Eosinophils # 0.2 (0.0-0.6) K/mcL Basophils # 0.0 (0.0-0.2) K/mcL Sodium 138 (136-145) mEq/L Potassium 4.6 (3.5-5.1) mEq/L Chloride 97 L (98-107) mEq/L Carbon Dioxide 29 (23-29) mEq/L BUN 37 H (6-20) mg/dL Creatinine 7.63 H (0.70-1.30) mg/dL Est GFR ( Amer) 9 L (> 60) Est GFR (Non-Af Amer) 7 L (> 60) BUN/Creatinine Ratio 5 L (6-26) Glucose 183 H (70-105) mg/dL Calculated Osmolality 299 (280-300) Calcium 8.1 L (8.6-10.3) mg/dL Total Bilirubin 0.3 (0.3-1.0) mg/dL AST 12 L (13-39) Units/L ALT 11 (7-52) Units/L Alkaline Phosphatase 88 (34-104) Units/L Troponin I 0.05 H* (< 0.04) ng/mL Serum Total Protein 6.7 (6.4-8.9) g/dL Albumin 3.1 L (3.5-5.7) g/dL Globulin 3.6 H (2.4-3.5) g/dL Albumin/Globulin Ratio 0.9 L (1.1-2.2) Lipase 11 (11-82) Units/L Stool Occult Bld Scrn Negative (Negative) - Radiology Data Radiology results reviewed: Yes I reviewed the patient's radiology results. Chest X-Ray 11/07/18 00:33 IMPRESSION: Mild cardiomegaly. Hazy opacity inferiorly in the right chest favored to be due to small pleural effusion. Pleural thickening could have the same appearance. No definite acute airspace disease seen. D/ / Darian Abraham MD / Darian Abraham MD Interpreting Provider: Darian Abraham MD Dissection 11/07/18 01:02 IMPRESSION: No evidence of aortic dissection. Umbilical hernia now containing small amount of fluid and a focus of gas with extension of the fluid into the peritoneal cavity resulting in a small loculated fluid collection which may represent an abscess. Stable moderate size right pleural effusion containing a few foci of gas with enhancement of the pleura. Amount of gas within the collection is decreased compared to 10/23/2018. Density of the fluid appears to be simple. Stable circumferential wall thickening of the urinary bladder with adjacent fat stranding concerning for an infectious or inflammatory cystitis. D/ / Ton Castillo / Ton Castillo Interpreting Provider: Ton Castillo - EKG Data EKG #1 EKG attestation: Yes I reviewed and interpreted this EKG. EKG results narrative: EKG obtained at 2:48 AM. Interpretation of the EKG shows normal sinus rhythm, no axis deviation, normal intervals, no ST changes or T-wave inversions. No evidence of hypertrophy, WPW, Brugada, HOCM. No prior EKG for comparison. EKG #2 obtained at 3:35 AM. My interpretation of the EKG shows normal sinus rhythm, no axis deviation, normal intervals, no ST changes or T-wave inversions.
[2018-11-07 03:02] LABS: Basophils % 0.3 %; Eosinophils # 0.2 K/mcL (0.0-0.6); Eosinophils % 2.3 %; Hematocrit 27.4 % (37.5-50.1); Immature Granulocytes % 0.4 % (0-4); Lymphocytes # 1.3 K/mcL (0.6-4.6); Lymphocytes % 18.5 %; Mean Corpuscular HGB Conc 32.8 g/dL (31.6-35.5); Mean Corpuscular Hemoglobin 29.9 pg (28.0-33.3); Mean Platelet Volume 8.7 fL (9.4-12.4); Monocytes # 0.9 K/mcL (0.0-1.3); Monocytes % 13.5 %; Neutrophils # 4.5 K/mcL (1.6-8.9); Platelet Count 249 K/mcL (140-400); Red Blood Count 3.01 M/mcL (4.19-5.50); Red Cell Distribution Width 13.8 % (11.5-14.5); White Blood Count 6.9 K/mcL (4.3-11.1)
[2018-11-07 03:27] LABS: Albumin 3.1 g/dL (3.5-5.7); Albumin/Globulin Ratio 0.9 (1.1-2.2); Bilirubin,Total 0.3 mg/dL (0.3-1.0); Calcium 8.1 mg/dL (8.6-10.3); Globulin 3.6 g/dL (2.4-3.5); Potassium 4.6 mEq/L (3.5-5.1); Total Protein 6.7 g/dL (6.4-8.9)
--- NOTE | 2018-11-07 03:27 | Emergency Department Note ---
Disposition Clinical Impression: ESRD (end stage renal disease), ESRD (end stage renal disease) on dialysis, Upper GI bleed Disposition: Admitted As Inpatient Condition: Fair Referrals: Fausto Jacques MD [Primary Care Provider] - Time of Disposition: 05:47 General Adult HPI - General Chief complaint: ED Nausea/Vomiting/Diarrhea Stated complaint: abdominal pain Time Seen by Provider: 11/07/18 00:25 Source: patient, EMS Mode of arrival: EMS - History of Present Illness Pain Scale: 7 - Related Data Home Medications Medication Instructions Recorded Confirmed Aspirin [Lo-Dose Aspirin EC] 81 mg PO DAILY 07/30/17 10/24/18 Ergocalciferol (VITAMIN D2) 100,000 unit PO WE 09/24/17 10/24/18 [Vitamin D2] Insulin Glargine,Hum.rec.anlog 30 unit SQ HS 02/01/18 10/24/18 [Basaglar Kwikpen U-100] rOPINIRole [Requip] 0.25 mg PO HS 06/18/18 10/24/18 Atorvastatin [Lipitor] 40 mg PO HS 07/26/18 10/24/18 Calcium Carbonate [Calcium] 600 mg PO DAILY 07/26/18 10/24/18 Metoprolol Succinate [Toprol Xl] 25 mg PO QAM 07/26/18 10/24/18 Nitroglycerin [Nitrostat] 0.4 mg SL Q5MIN PRN 07/26/18 10/24/18 Insulin ASPART [Novolog Flexpen] 0 unit SQ BIDWM 09/27/18 10/24/18 Isosorbide MONOnitrate [Isosorbide 90 mg PO DAILY 09/27/18 10/25/18 Mononitrate ER] Ondansetron HCl 8 mg PO TID PRN 09/27/18 10/24/18 Previous Rx's Medication Instructions Recorded Clopidogrel [Plavix] 75 mg PO DAILY 30 Days #30 tablet 10/09/18 Pantoprazole Sodium 40 mg PO DAILY 30 Days #30 10/26/18 tablet. Sucralfate [Carafate] 1 gm PO QIDAC 30 Days #90 tablet 10/26/18 Allergies Allergy/AdvReac Type Severity Reaction Status Date / Time No Known Allergies Allergy Verified 10/24/18 13:58 Constitutional: Reports: weakness. Denies: fever, chills Eyes: Denies: eye pain, eye discharge, vision change ENT ED: Denies: ear pain, throat pain, dental pain Cardiovascular: Reports: chest pain. Denies: palpitations, dyspnea on exertion Respiratory: Denies: cough, dyspnea, wheezes Gastrointestinal: Reports: abdominal pain, nausea, vomiting Genitourinary: Denies: urgency, dysuria, frequency Musculoskeletal: Denies: back pain, neck pain, joint swelling Integumentary: Denies: rash, abrasion, lesions Neurological: Denies: headache, weakness, numbness Psychiatric: Denies: anxiety, depression, suicidal thoughts Endocrine: Denies: fatigue, heat or cold intolerance, polydipsia Past Medical History - Past Medical History Medical history: Reports: coronary artery disease, diabetes, dialysis, hyperlipidemia, hypertension, renal disease, other Surgical history: Reports: cholecystectomy, vascular surgery, other (Right thoracoscopy with pleurectomy and chemical pleurodesis) Psychiatric history: Reports: no psych history - Social History Smoking Status: Never smoker Smokeless Tobacco Status: No Alcohol use: Reports: none Drug use: Reports: none Physical Exam - General General appearance: alert, in no apparent distress Course Vital Signs Temperature 99.1 F 11/07/18 00:33 Pulse Rate 91 11/07/18 00:33 Respiratory Rate 19 11/07/18 00:33 Blood Pressure 174/84 11/07/18 00:33 O2 Sat by Pulse Oximetry 99 11/07/18 00:33 Temperature 99.1 F 11/07/18 00:33 Pulse Rate 84 11/07/18 05:02 Respiratory Rate 16 11/07/18 05:02 Blood Pressure 173/86 11/07/18 05:02 O2 Sat by Pulse Oximetry 98 11/07/18 05:02 Oxygen Delivery Oxygen Delivery Room Air Medical Decision Making - Lab Data Result diagrams: 11/07/18 02:48 11/07/18 02:48 Lab Results 11/07/18 11/07/18 11/07/18 Range/Units 02:48 02:48 04:15 WBC 6.9 (4.3-11.1) K/mcL RBC 3.01 L (4.19-5.50) M/mcL Hgb 9.0 L (12.9-16.9) g/dL Hct 27.4 L (37.5-50.1) % MCV 91.0 (83.0-100.0) fL MCH 29.9 (28.0-33.3) pg MCHC 32.8 (31.6-35.5) g/dL RDW 13.8 (11.5-14.5) % Plt Count 249 (140-400) K/mcL MPV 8.7 L (9.4-12.4) fL Immature Gran % 0.4 (0-4) % Seg Neutrophils % 65.0 % Lymphocytes % 18.5 % Monocytes % 13.5 % Eosinophils % 2.3 % Basophils % 0.3 % Neutrophils # 4.5 (1.6-8.9) K/mcL Lymphocytes # 1.3 (0.6-4.6) K/mcL Monocytes # 0.9 (0.0-1.3) K/mcL Eosinophils # 0.2 (0.0-0.6) K/mcL Basophils # 0.0 (0.0-0.2) K/mcL Sodium 138 (136-145) mEq/L Potassium 4.6 (3.5-5.1) mEq/L Chloride 97 L (98-107) mEq/L Carbon Dioxide 29 (23-29) mEq/L BUN 37 H (6-20) mg/dL Creatinine 7.63 H (0.70-1.30) mg/dL Est GFR ( Amer) 9 L (> 60) Est GFR (Non-Af Amer) 7 L (> 60) BUN/Creatinine Ratio 5 L (6-26) Glucose 183 H (70-105) mg/dL Calculated Osmolality 299 (280-300) Calcium 8.1 L (8.6-10.3) mg/dL Total Bilirubin 0.3 (0.3-1.0) mg/dL AST 12 L (13-39) Units/L ALT 11 (7-52) Units/L Alkaline Phosphatase 88 (34-104) Units/L Troponin I 0.05 H* (< 0.04) ng/mL Serum Total Protein 6.7 (6.4-8.9) g/dL Albumin 3.1 L (3.5-5.7) g/dL Globulin 3.6 H (2.4-3.5) g/dL Albumin/Globulin Ratio 0.9 L (1.1-2.2) Lipase 11 (11-82) Units/L Stool Occult Bld Scrn Negative (Negative) Attestation Statement - Attestation Attestation: I examined this patient and my medical decision-making was reviewed with the Resident Physician. I agree with the documented findings, disposition and treatment plan as described except to the extent set forth below. Patient presents to the ED with a chief complaint of vomiting blood. Patient states he vomited some chunks of blood tonight. 2 episodes. Following that he had some chest pain. He does not some upper abdominal pain. He is a throbbing numbness in his left hand. He is in no acute distress on examination. Does have tenderness the epigastric area and over where his hernia repair was performed. He is not actively vomiting. Lungs are clear. Plan. Patient is complaining of epigastric pain and chest pain and some neurologic symptoms. We will check a dissection study. Hemoglobin. He seems clinically stable at this time. Protonix. Patient's febrile illness stable. He has had no further vomiting. Dissection set is unremarkable. His troponin is elevated at 0.05, but this is his baseline. EKG has no ischemic changes. We will check stool Hemoccult patient will be admitted. EKG reviewed with the resident. No acute ischemic changes. Reevaluated the patient. Termination of his abdominal wound shows it to be clean dry and intact. No erythema warmth or drainage. Discussed with surgery who does not feel this is an abscess, and I agree. We will admit to medicine for the upper GI bleed. Admitted to medicine. Chest X-Ray 11/07/18 00:33 IMPRESSION: Mild cardiomegaly. Hazy opacity inferiorly in the right chest favored to be due to small pleural effusion. Pleural thickening could have the same appearance. No definite acute airspace disease seen. D/ / Darian Abraham MD / Darian Abraham MD Interpreting Provider: Darian Abraham MD Dissection 11/07/18 01:02 IMPRESSION: No evidence of aortic dissection. Umbilical hernia now containing small amount of fluid and a focus of gas with extension of the fluid into the peritoneal cavity resulting in a small loculated fluid collection which may represent an abscess. Stable moderate size right pleural effusion containing a few foci of gas with enhancement of the pleura. Amount of gas within the collection is decreased compared to 10/23/2018. Density of the fluid appears to be simple. Stable circumferential wall thickening of the urinary bladder with adjacent fat stranding concerning for an infectious or inflammatory cystitis. D/ / Ton Castillo / Ton Castillo Interpreting Provider: Ton Castillo
[2018-11-07 03:32] LABS: Troponin I 0.05 ng/mL (< 0.04)
[2018-11-07] MEDS ORDERED: Acetaminophen 325 MG TABLET PO PRN (08:52)
[2018-11-07] MEDS ORDERED: Naloxone 0.4 MG/ML INJ IVP PRN (08:52)
--- NOTE | 2018-11-07 08:57 | Internal Med History&Physical ---
Date of Encounter: 11/07/18 Time of Encounter: 08:56 Internal Medicine - H&P: HPI Chief complaint: abdominal pain History of present illness: Mr. Hernandez is a 53 year old male with a past medical history of GERD, esophagitis, end-stage renal disease on HD via AVF , coronary artery disease, cystitis, hypertension, umbilical hernia who presents with right upper quadrant abdominal pain in the right upper that radiates to his back. The patient is also c/o hematemesis where he was vomiting clots. the patient was diagnosed recently with esophagitis with ulcer and also s/p underwent umbilical hernia repair. CT sacn of the abdpmen was obtained and revealed Umbilical hernia now containing small amount of fluid and a focus of gas with extension of the fluid into the peritoneal cavity resulting in a small loculated fluid collection which may represent an abscess. laboratory data revealed hemoglobin of 9.3, mildly elevated troponin which appeared to be a chronic, EKG revealed no ischemic ST-T wave changes, the patient denies chest pain, palpitation, dyspnea, orthopnea, this one nocturnal dyspnea, or progressive worsening of lower extremity edema. 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 Type II Diabetic Psychiatric history: no psych history - Past Surgical History Surgical History: cholecystectomy, vascular surgery, other (Right thoracoscopy with pleurectomy and chemical pleurodesis) Additional surgical history: Prostate surgery (TURP), left arm av shunt. Right lung surgery x1 month ago. Hernia surgery 10 days ago - Social History Smoking Status: Never smoker Smokeless Tobacco Status: No Alcohol use: none Drug use: none - Family History Mother Adopted: No Living Status: Hx Family Cardiac Disorders: Yes (mother stroke) Hx Family Respiratory Disorders: Yes (Dad asthma copd) Hx Family Cancer: Yes (prostate, pancreatic) Hx Family GI Disorders: No Hx Family Endocrine Disorder: Yes (DM) Hx Family Neuromuscular Disorders: No Hx Family Neurologic Disorders: No Hx Family HEENT Disorders: No Hx Family Autoimmune Disorders: No Father Adopted: No Living Status: Hx Family Cardiac Disorders: Yes (father, stents) Hx Family Respiratory Disorders: Yes (father COPD) Hx Family Cancer: Yes (Father prostate cancer uncle colon) Hx Family GI Disorders: No Hx Family Endocrine Disorder: Yes (dM) Hx Family Neuromuscular Disorders: No Hx Family Neurologic Disorders: No Hx Family HEENT Disorders: No Hx Family Autoimmune Disorders: No Internal Medicine - H&P: Meds Aspirin [Lo-Dose Aspirin EC] 81 mg PO DAILY 07/30/17 [History] Ergocalciferol (VITAMIN D2) [Vitamin D2] 50,000 unit PO WE 09/24/17 [History] Calcium Carbonate [Calcium] 600 mg PO DAILY 07/26/18 [History] Nitroglycerin [Nitrostat] 0.4 mg SL Q5MIN PRN 07/26/18 [History] Isosorbide MONOnitrate [Isosorbide Mononitrate ER] 30 mg PO DAILY 09/27/18 [History] Pantoprazole Sodium 40 mg PO DAILY 30 Days #30 tablet. 10/26/18 [Rx] Sucralfate [Carafate] 1 gm PO QIDAC 30 Days #90 tablet 10/26/18 [Rx] Dexlansoprazole [Dexilant] 30 mg PO DAILY 11/09/18 [History] Furosemide [Lasix] 40 mg PO DAILY 11/09/18 [History] Lisinopril 2.5 mg PO DAILY 11/09/18 [History] Nitroglycerin [Nitrostat] 0.4 mg SL Q5MIN PRN 11/09/18 [History] Ranolazine [Ranexa] 1,000 mg PO BID 11/09/18 [History] Allergy/AdvReac Type Severity Reaction Status Date / Time No Known Allergies Allergy Verified 10/24/18 13:58 All Systems PM: A 10-system review of systems was performed and is negative for pertinent findings except as documented above in the HPI. - Constitutional Vitals: Temp Pulse Resp BP Pulse Ox 98.7 F 79 16 160/76 99 11/07/18 06:49 11/07/18 06:49 11/07/18 06:49 11/07/18 06:49 11/07/18 06:49 General appearance: Present: A&O X 3 Exam: . - Head Head exam: Present: atraumatic, normocephalic - Neck Neck exam general surgery: Present: supple, trachea midline. Absent: lymphaden opathy - Respiratory Respiratory exam: Present: CTAB. Absent: accessory muscle use, rales, rhonchi, wheezes - Cardiovascular Cardiovascular exam: Present: RRR, +S1, +S2. Absent: diastolic murmur, gallop, rubs, systolic murmur - GI/Abdominal GI/Abdominal exam: Present: normal bowel sounds, soft, no peritoneal signs. Absent: distended, tenderness - Extremities Exam Extremities exam: Present: warm, radial pulses palpable and symmetrical. A bsent: calf tenderness, cyanotic, pedal edema Internal Med - H&P Results - Labs CBC & Chem 7: 11/09/18 00:18 11/09/18 00:18 Labs: Short CBC 11/07/18 Range/Units 02:48 WBC 6.9 (4.3-11.1) K/mcL Hgb 9.0 L (12.9-16.9) g/dL Hct 27.4 L (37.5-50.1) % Plt Count 249 (140-400) K/mcL Neutrophils # 4.5 (1.6-8.9) K/mcL BMP 11/07/18 02:48 Sodium 138 Potassium 4.6 Chloride 97 L Carbon Dioxide 29 BUN 37 H Creatinine 7.63 H Glucose 183 H Calcium 8.1 L Cardiac Enzymes 11/07/18 Range/Units 02:48 Troponin I 0.05 H* (< 0.04) ng/mL Liver Function 11/07/18 Range/Units 02:48 Total Bilirubin 0.3 (0.3-1.0) mg/dL AST 12 L (13-39) Units/L ALT 11 (7-52) Units/L Alkaline Phosphatase 88 (34-104) Units/L Albumin 3.1 L (3.5-5.7) g/dL - Impressions ITS Impressions Chest X-Ray 11/07/18 00:33 IMPRESSION: Mild cardiomegaly. Hazy opacity inferiorly in the right chest favored to be due to small pleural effusion. Pleural thickening could have the same appearance. No definite acute airspace disease seen. D/ / Darian Abraham MD / Darian Abraham MD Interpreting Provider: Darian Abraham MD Dissection 11/07/18 01:02 IMPRESSION: No evidence of aortic dissection. Umbilical hernia now containing small amount of fluid and a focus of gas with extension of the fluid into the peritoneal cavity resulting in a small loculated fluid collection which may represent an abscess. Stable moderate size right pleural effusion containing a few foci of gas with enhancement of the pleura. Amount of gas within the collection is decreased compared to 10/23/2018. Density of the fluid appears to be simple. Stable circumferential wall thickening of the urinary bladder with adjacent fat stranding concerning for an infectious or inflammatory cystitis. D/ / Ton Castillo / Ton Castillo Interpreting Provider: Ton Castillo - Assessment and Plan (1) Upper GI bleed Status: Acute Assessment and plan: - GI bleeding ] DD *Gastroenteritis *Gastritis *PUD *Esophageal varices *Toya Rick syndrome *IBD PLAN: - IVF - NPO - H/H now and q 8 hr - Protonix 40 mg IV QD/BID - GI consult-> EGD/Colonoscopy - O2 to keep SpO2 > 92% - CBCD, BMP, INR/PTT in AM - Compression stocking BLE for DVT prophylaxis (2) ESRD (end stage renal disease) on dialysis Status: Chronic Assessment and plan: nephrology was consulted providing renal replacement therapy needs while inpatient. (3) Cardiomyopathy Status: Acute Assessment and plan: we'll continue home medication. There is no evidence of congestive heart failure exacerbation Qualifiers: Cardiomyopathy type: ischemic Qualified Code(s): I25.5 - Ischemic cardiomyopathy (4) Hypotension Status: Acute Assessment and plan: we'll continue home medication, continue to monitor blood pressure while inpatient chest regimen accordingly if indicated Qualifiers: Hypotension type: other hypotension type Qualified Code(s): I95.89 - Other hypotension (5) Elevated troponin Status: Chronic Assessment and plan: Mildly elevated troponin which appeared to be a chronic, EKG revealed no ischemic ST-T wave changes. - Time Spent With Patient Total time spent is greater than 50% in coordination of care (as documented) at patient's floor/unit and/or counseling patient:
[2018-11-07 09:52] LABS: Hematocrit 27.4 % (37.5-50.1)
[2018-11-07] MEDS: Ondansetron 4 MG/2 ML VIAL IVP PRN ×2 (12:13→20:42)
--- NOTE | 2018-11-07 12:33 | Nephrology Consult Note ---
Date of Encounter: 11/07/18 Time of Encounter: 12:00 Assessment and Plan (1) ESRD (end stage renal disease) on dialysis Current Visit: Yes Status: Chronic (2) Upper GI bleed Current Visit: Yes Status: Acute History of Present Illness - Reason for Consult Consult date: 11/07/18 end stage renal disease Requesting physician: Marga Blount See - History of Present Illness 53 y o male with PMH of ESRD scheduled for HD MWF but routinely misses his thursday sessions, recurrent hospital stays averaging twice a month since april with most recent approx. 10days where he was diagnosed with esophagitis with ulcer and underwent umbilical hernia repair and now presents with h ematemesis with epigastric abd pain. Hgb noted at 9.0 about this same as previous. Pt apparently underwent CTA for rule out dissection in the ED and I was notify on iv contrast exposure. Last HD was thursday. 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 Type II Diabetic Psychiatric history: no psych history - Past Surgical History Surgical History: cholecystectomy, vascular surgery, other (Right thoracoscopy with pleurectomy and chemical pleurodesis) Additional surgical history: Prostate surgery (TURP), left arm av shunt. Right lung surgery x1 month ago. Hernia surgery 10 days ago - Social History Smoking Status: Never smoker Smokeless Tobacco Status: No Alcohol use: none Drug use: none - Family History Mother Adopted: No Living Status: Hx Family Cardiac Disorders: Yes (mother stroke) Hx Family Respiratory Disorders: Yes (Dad asthma copd) Hx Family Cancer: Yes (prostate, pancreatic) Hx Family GI Disorders: No Hx Family Endocrine Disorder: Yes (DM) Hx Family Neuromuscular Disorders: No Hx Family Neurologic Disorders: No Hx Family HEENT Disorders: No Hx Family Autoimmune Disorders: No Father Adopted: No Living Status: Hx Family Cardiac Disorders: Yes (father, stents) Hx Family Respiratory Disorders: Yes (father COPD) Hx Family Cancer: Yes (Father prostate cancer uncle colon) Hx Family GI Disorders: No Hx Family Endocrine Disorder: Yes (dM) Hx Family Neuromuscular Disorders: No Hx Family Neurologic Disorders: No Hx Family HEENT Disorders: No Hx Family Autoimmune Disorders: No Medications and Allergies Aspirin [Lo-Dose Aspirin EC] 81 mg PO DAILY 07/30/17 [History] Ergocalciferol (VITAMIN D2) [Vitamin D2] 100,000 unit PO WE 09/24/17 [History] Insulin Glargine,Hum.rec.anlog [Basaglar Kwikpen U-100] 30 unit SQ HS 02/01/18 [History] Atorvastatin [Lipitor] 40 mg PO HS 07/26/18 [History] Calcium Carbonate [Calcium] 600 mg PO DAILY 07/26/18 [History] Metoprolol Succinate [Toprol Xl] 25 mg PO QAM 07/26/18 [History] Nitroglycerin [Nitrostat] 0.4 mg SL Q5MIN PRN 07/26/18 [History] Insulin ASPART [Novolog Flexpen] 0 unit SQ BIDWM 09/27/18 [History] Isosorbide MONOnitrate [Isosorbide Mononitrate ER] 90 mg PO DAILY 09/27/18 [History] Ondansetron HCl 8 mg PO TID PRN 09/27/18 [History] Clopidogrel [Plavix] 75 mg PO DAILY 30 Days #30 tablet 10/09/18 [Rx] Pantoprazole Sodium 40 mg PO DAILY 30 Days #30 tablet. 10/26/18 [Rx] Sucralfate [Carafate] 1 gm PO QIDAC 30 Days #90 tablet 10/26/18 [Rx] Allergy/AdvReac Type Severity Reaction Status Date / Time No Known Allergies Allergy Verified 10/24/18 13:58 Exam - Vital Signs Vital signs: Initial Vital Signs Temp Pulse Resp BP Pulse Ox 99.1 F 91 19 174/84 99 11/07/18 00:33 11/07/18 00:33 11/07/18 00:33 11/07/18 00:33 11/07/18 00:33 Vital Signs - Last 8 Hours Temp Pulse Resp BP Pulse Ox 11/07/18 11:34 98.5 F 88 19 183/76 100 11/07/18 06:49 98.7 F 79 16 160/76 99 11/07/18 05:49 18 172/84 11/07/18 05:02 84 16 173/86 98 Intake and Output 11/06/18 11/07/18 11/07/18 23:59 07:59 15:59 Other: Weight 93.7 kg Blood Glucose* 126 119 Patient Weight 11/07/18 23:59 Weight 93.7 kg Results - Lab Results 11/07/18 09:25 11/07/18 02:48 Most recent lab results 11/07/18 02:48 Calcium 8.1 L Consult Discharge Plan - Plan Referrals: Fausto Jacques MD [Primary Care Provider] -
[2018-11-07 15:56] LABS: Hemoglobin 9.2 g/dL (12.9-16.9)
[2018-11-07] MEDS: Pantoprazole 40 MG VIAL IVP SCH (17:42)
[2018-11-07 23:28] LABS: Hematocrit 28.2 % (37.5-50.1); Hemoglobin 9.3 g/dL (12.9-16.9)
[2018-11-08] MEDS: Pantoprazole 40 MG VIAL IVP SCH ×2 (04:32→17:28)
[2018-11-08] MEDS: Ondansetron 4 MG/2 ML VIAL IVP PRN (04:32)
[2018-11-08 05:08] LABS: Basophils % 0.4 %; Eosinophils # 0.3 K/mcL (0.0-0.6); Eosinophils % 3.5 %; Hemoglobin 9.1 g/dL (12.9-16.9); Immature Granulocytes % 0.5 % (0-4); Lymphocytes # 1.4 K/mcL (0.6-4.6); Lymphocytes % 18.4 %; Mean Corpuscular HGB Conc 32.5 g/dL (31.6-35.5); Mean Corpuscular Hemoglobin 29.4 pg (28.0-33.3); Mean Corpuscular Volume 90.6 fL (83.0-100.0); Mean Platelet Volume 8.9 fL (9.4-12.4); Monocytes # 0.8 K/mcL (0.0-1.3); Neutrophils # 4.9 K/mcL (1.6-8.9); Platelet Count 251 K/mcL (140-400); Red Blood Count 3.09 M/mcL (4.19-5.50); Red Cell Distribution Width 13.9 % (11.5-14.5); Segmented Neutrophils % 66.2 %; White Blood Count 7.5 K/mcL (4.3-11.1)
[2018-11-08] MEDS ORDERED: Dextrose Gel 15 GM/37.5 ML TUBE PO PRN ×2 (05:19)
[2018-11-08] MEDS ORDERED: D5% in Water 1,000 ML IVC PRN (05:19)
[2018-11-08] MEDS ORDERED: *HR* Dextrose 50 % in Water (Syg) 50 ML SYRINGE IVP PRN (05:19)
[2018-11-08 05:30] LABS: Albumin 3.1 g/dL (3.5-5.7); Albumin/Globulin Ratio 0.9 (1.1-2.2); Bilirubin,Total 0.3 mg/dL (0.3-1.0); Calcium 7.8 mg/dL (8.6-10.3); Globulin 3.3 g/dL (2.4-3.5); Magnesium 1.5 mg/dL (1.6-2.6); Phosphorous 5.8 mg/dL (2.7-4.5); Potassium 5.2 mEq/L (3.5-5.1); Total Protein 6.4 g/dL (6.4-8.9)
[2018-11-08 06:52] LABS: INR 1.1; Prothrombin Time 12.2 Seconds (9.4-12.1)
[2018-11-08 06:55] LABS: Activated Partial Thrombo Time 32.8 Seconds (26.0-36.0)
[2018-11-08] MEDS ORDERED: 0.9 % Sodium Chloride 1,000 ML ONE ×2 (08:02→09:03)
--- NOTE | 2018-11-08 08:17 | Internal Med Progress Note ---
<Lluvia Appiah - Last Filed: 11/08/18 13:58> Hospitalist Progress Note - Encounter Date of Encounter: 11/08/18 - Exam Vitals: Temp Pulse Resp BP Pulse Ox 98.7 F 86 20 187/90 95 11/08/18 12:00 11/08/18 08:03 11/08/18 12:00 11/08/18 13:45 11/08/18 08:03 - Assessment and Plan (1) Hypotension Current Visit: No Status: Acute (2) ESRD (end stage renal disease) on dialysis Current Visit: Yes Status: Chronic (3) Cardiomyopathy Current Visit: No Status: Acute (4) Upper GI bleed Current Visit: Yes Status: Acute (5) Elevated troponin Current Visit: Yes Status: Acute - Time Spent with Patient Total time spent is greater than 50% in coordination of care (as documented) at patient's floor/unit and/or counseling patient: Internal Medicine: Result - Labs CBC & Chem 7: 11/08/18 04:41 11/08/18 04:41 Labs: Short CBC 11/07/18 11/07/18 11/08/18 Range/Units 15:30 23:05 04:41 WBC 7.5 (4.3-11.1) K/mcL Hgb 9.2 L 9.3 L 9.1 L (12.9-16.9) g/dL Hct 28.0 L 28.2 L 28.0 L (37.5-50.1) % Plt Count 251 (140-400) K/mcL Neutrophils # 4.9 (1.6-8.9) K/mcL BMP 11/08/18 04:41 Sodium 134 L Potassium 5.2 H Chloride 100 Carbon Dioxide 24 BUN 44 H Creatinine 8.50 H Glucose 161 H Calcium 7.8 L Liver Function 11/08/18 Range/Units 04:41 Total Bilirubin 0.3 (0.3-1.0) mg/dL AST 11 L (13-39) Units/L ALT 7 (7-52) Units/L Alkaline Phosphatase 86 (34-104) Units/L Albumin 3.1 L (3.5-5.7) g/dL - ABG Interpretation ABG results: PT/INR, D-dimer PT 12.2 Seconds (9.4-12.1) H 11/08/18 06:27 Consult Discharge Plan - Plan Referrals: Fausto Jacques MD [Primary Care Provider] - Edda Phoenix, [employer] OUTSIDE SALES REPRESENTATIVE [Advanced Practice Nurse] - 11/15/18 2:45 pm - Attending Attestation I examined this patient and my medical decision-making was reviewed with the Resident Physician Dr Bhatt. I agree with the documented findings, disposition and treatment plan as described except to the extent set forth below. Mr Hernandez is being observed for hemetemesis awake, + nausea, no emesis, last emeis was "like acid and clear", denies clots or coffee ground appearing emesis since admit. no cp, pressure, sob or palpitations. no abd pain. + chills, no fever. no pain at hernia repair site. + headache this morning gen- alert, awake,appears stated age eyes- pupils equal round , no conjunctival pallor cv- reg rate and rhythm, normal s1,s2 lungs- ctabl, normal resp effort on room air abd- soft, non tender, non distended, no guarding or rigidity, + bs skin- hernia repair site clean, dry, intact neuro- AAOx3 Presumed upper GIB w Hemetemesis not visualized- hemodynamically stable recent dx esophagitis -serial h/hs, IV PPI, gi to preform egd today, keep npo, cont home carafate, hold non essential meds given npo status ESRD on HD- nephro following s/p dye load for imaging in ED s/p umbilical hernia repair w CT a/p with gas and possibe abscess/fluid collection- Dr Pineda will review imaging and see pt in consultation for further recs, he is afebrile without leukocytosis and will cont to hold abx pending further recs HTN, BP elevated above goal- will not start full regimen due to GIB as above, but given he is far above goal and w headache will resume home BB and cont to monitor Chronic anemia has been stable at baseline vte ppx scds <Lydia Bhatt - Last Filed: 11/08/18 18:25> Hospitalist Progress Note - Encounter Date of Encounter: 11/08/18 Time of Encounter: 18:23 - Subjective Interval History: Pt was seen and examined at bedside. Acutely complaining of nausea (no V today). Denies fevers, chills, weakness, headache, chest pain, SOB, abd pain, V/D/C. - Exam Vitals: Temp Pulse Resp BP Pulse Ox 98.9 F 86 20 174/92 95 11/08/18 08:03 11/08/18 08:03 11/08/18 08:03 11/08/18 08:03 11/08/18 08:03 Exam: Constitutional: alert, oriented, in no acute distress, oriented X 3, well nourished, well-developed Head: normocephalic, atraumatic Heart: normal, regular rate and rhythm, no murmurs, S1, S2 normal Lungs: clear to auscultation, no wheezes, rales, rhonchi Abdomen: soft, slightly tender to palpation in LUQ, possible firm mass in LUQ, nondistended, bowel sounds present and normal, no hepatomegaly, no guarding or rigidity, no CVA tenderness Extremities: no clubbing, cyanosis, or edema, pulses +3/4 in all 4 extremities, wounds on kenan shins Skin: dry, intact, no bruising Psych: alert, oriented, cooperative with exam, good eye contact, cognitive function intact, judgement and insight good, speech clear, thought process logical, goal directed - Assessment and Plan (1) Upper GI bleed Current Visit: Yes Status: Acute Comments: - stool occult was negative - currently still nauseous but denies vomit - continue serial H/H q8h - GI consulted: plan EGD today - continue NPO - protonix IV bid - DVT ppx: foot pumps - continue nausea ppx: zofran (2) Chronic anemia Current Visit: Yes Status: Chronic Comments: - hemodynamically stable - continue to monitor vitals - continue to monitor hemoglobin - current hgb 9.1 (3) Elevated troponin Current Visit: Yes Status: Chronic Comments: - likely due to hx of ESRD - EKG normal at admission - baseline unknown (4) ESRD (end stage renal disease) on dialysis Current Visit: Yes Status: Chronic Comments: - nephro consulted: pending recs - most likely will required dialysis - BUN 44, creat 8.50, baseline unknown (5) Fluid collection at surgical site Current Visit: Yes Status: Acute Comments: - CT chest shows some fluid collection in foci of gas under surgical site, r/o poss abscess - Surgery recs: - no leukocytosis, no fever, chills (6) Hypertension Current Visit: No Status: Chronic Comments: - was previously hypotensive thus all HTN meds were on hold - BP now 151/69 - restart beta jesse, hold imdur due to potential active bleeding - trend vitals (7) Wound of lower extremity Current Visit: Yes Status: Chronic Comments: - normally sees wound care - wound care consulted (8) Hypomagnesemia Current Visit: Yes Status: Acute Comments: - current Mg 1.5 - replace Mg - Time Spent with Patient Total time spent is greater than 50% in coordination of care (as documented) at patient's floor/unit and/or counseling patient: Internal Medicine: Result - Labs CBC & Chem 7: 11/08/18 04:41 11/08/18 04:41 Labs: Short CBC 11/07/18 11/07/18 11/07/18 Range/Units 09:25 15:30 23:05 WBC (4.3-11.1) K/mcL Hgb 9.0 L 9.2 L 9.3 L (12.9-16.9) g/dL Hct 27.4 L 28.0 L 28.2 L (37.5-50.1) % Plt Count (140-400) K/mcL Neutrophils # (1.6-8.9) K/mcL 11/08/18 Range/Units 04:41 WBC 7.5 (4.3-11.1) K/mcL Hgb 9.1 L (12.9-16.9) g/dL Hct 28.0 L (37.5-50.1) % Plt Count 251 (140-400) K/mcL Neutrophils # 4.9 (1.6-8.9) K/mcL BMP 11/08/18 04:41 Sodium 134 L Potassium 5.2 H Chloride 100 Carbon Dioxide 24 BUN 44 H Creatinine 8.50 H Glucose 161 H Calcium 7.8 L Liver Function 11/08/18 Range/Units 04:41 Total Bilirubin 0.3 (0.3-1.0) mg/dL AST 11 L (13-39) Units/L ALT 7 (7-52) Units/L Alkaline Phosphatase 86 (34-104) Units/L Albumin 3.1 L (3.5-5.7) g/dL - ABG Interpretation ABG results: PT/INR, D-dimer PT 12.2 Seconds (9.4-12.1) H 11/08/18 06:27 <Lluvia Appiah M - Last Filed: 11/08/18 13:58> (1) Hypotension Qualifiers: Hypotension type: other hypotension type Qualified Code(s): I95.89 - Other hypotension (3) Cardiomyopathy Qualifiers: Cardiomyopathy type: ischemic Qualified Code(s): I25.5 - Ischemic cardiomyopathy <Lydia Bhatt S - Last Filed: 11/08/18 18:25> (6) Hypertension Qualifiers: Hypertension type: essential hypertension Qualified Code(s): I10 - Essential (primary) hypertension (7) Wound of lower extremity Qualifiers: Encounter type: subsequent encounter Laterality: unspecified laterality Qualified Code(s): S81.809D - Unspecified open wound, unspecified lower leg, subsequent encounter
[2018-11-08] MEDS ORDERED: Ondansetron 4 MG/2 ML VIAL IVP PRN (09:01)
[2018-11-08] MEDS: Metoprolol XL (24 HR) Succ 25 MG TAB.ER.24H PO SCH (09:35)
[2018-11-08] MEDS: Insulin LISPRO 300 UNITS/3 ML VIAL SQ SCH ×3 (09:35→17:27)
[2018-11-08] MEDS ORDERED: 0.9 % Sodium Chloride 250 ML IVC PRN (09:35)
[2018-11-08 09:41] LABS: Hepatitis B Surface Antibody < 3.10 mIU/mL
[2018-11-08] MEDS ORDERED: 0.9 % Sodium Chloride 1,000 ML PRIME SCH (09:45)
[2018-11-08 09:53] LABS: Hepatitis B Surface Antigen Nonreactive (Nonreactive)
--- NOTE | 2018-11-08 12:59 | Gastroenterology Consult Note ---
Date of Encounter: 11/08/18 Time of Encounter: 10:25 - Assessment and plan (1) Upper GI bleed Current Visit: Yes Status: Acute Assessment and plan: On admission Hgb 9 and this AM Hgb 9.1. Continue to monitor CBC and transfuse PRBC as needed. Recent EGD 10/24/[address] Ragland showed LA grade C reflux esophagitis, no Tan's esophagus, nonbleeding esophageal ulcer. Patient admitted with vomiting BRB and clots. Plan for repeat EGD today. Keep patient NPO for scope. (2) Anemia Current Visit: No Status: Chronic Assessment and plan: As above. Qualifiers: Anemia type: unspecified type Qualified Code(s): D64.9 - Anemia, unspec ified (3) ESRD (end stage renal disease) on dialysis Current Visit: Yes Status: Chronic - Time Spent With Patient Total time spent is greater than 50% in coordination of care (as documented) at patient's floor/unit and/or counseling patient: GI History of Present Illness - Data of Consult Patient: new to practice Consult date: 11/08/18 Requesting Physician: Lluvia Appiah - Consult Narrative Reason for consult: Upper GI bleed History of present illness: Mr. Hernandez is a 53 year old male with PMHx of CAD, DM, ESRD, HLD, HTN, who presented with RUQ pain which radiates to his back, hematemesis where he was vomiting clots. On admission Hgb 9 and this AM Hgb 9.1. He was recently diagnosed with esophageal ulcer and esophagitis on 10/24. He also underwent umbilical hernia repair on 10/[address] Ragland. Procedures: EGD 10/24/2018 Dr. Tim Sosa: LA grade C reflux esophagitis, no Tan's esophagus, nonbleeding esophageal ulcer. EGD 05/23/2018 Dr. Pineda: Esophageal plaques consistent with candidiasis, medium hiatal hernia. 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 Type II Diabetic Psychiatric history: no psych history - Past Surgical History Surgical History: cholecystectomy, vascular surgery, other (Right thoracoscopy with pleurectomy and chemical pleurodesis) Additional surgical history: Prostate surgery (TURP), left arm av shunt. Right lung surgery x1 month ago. Hernia surgery 10 days ago - Social History Smoking Status: Never smoker Smokeless Tobacco Status: No Alcohol use: none Drug use: none - Family History Mother Adopted: No Living Status: Hx Family Cardiac Disorders: Yes (mother stroke) Hx Family Respiratory Disorders: Yes (Dad asthma copd) Hx Family Cancer: Yes (prostate, pancreatic) Hx Family GI Disorders: No Hx Family Endocrine Disorder: Yes (DM) Hx Family Neuromuscular Disorders: No Hx Family Neurologic Disorders: No Hx Family HEENT Disorders: No Hx Family Autoimmune Disorders: No Father Adopted: No Living Status: Hx Family Cardiac Disorders: Yes (father, stents) Hx Family Respiratory Disorders: Yes (father COPD) Hx Family Cancer: Yes (Father prostate cancer uncle colon) Hx Family GI Disorders: No Hx Family Endocrine Disorder: Yes (dM) Hx Family Neuromuscular Disorders: No Hx Family Neurologic Disorders: No Hx Family HEENT Disorders: No Hx Family Autoimmune Disorders: No - Gastrointestinal Gastrointestinal: Present: as per HPI - Constitutional Constitutional: as per HPI - EENT Eyes: as per HPI Ears: Present: as per HPI Nose, mouth and throat: Present: as per HPI - Cardiovascular Cardiovascular ROS: Present: as per HPI - Respiratory Respiratory IM: Present: as per HPI - Genitourinary Genitourinary: Absent: change in color, Urinary frequency - Neurological ROS Neurological GI: Present: as per HPI - Hematologic/Lymphatic Hematologic/Lymphatic pediatric: Present: as per HPI - Musculoskeletal Musculoskeletal ROS GI: Present: as per HPI - Integumentary Integumentary GI: Present: as per HPI - Psychiatric ROS Psychiatric GI: Present: as per HPI - Endocrine Endocrine IM: Present: as per HPI - Constitutional Vitals: Temp Pulse Resp BP Pulse Ox 98.7 F 86 20 200/92 95 11/08/18 12:00 11/08/18 08:03 11/08/18 12:00 11/08/18 12:45 11/08/18 08:03 General appearance: Present: cooperative, A&O X 3, no acute distress, answers questions appropriately - Head Head exam: Present: atraumatic, normocephalic - Eye Eye exam: Present: normal appearance, sclera anicteric - ENT ENT exam: Present: mucous membranes moist - Neck Neck exam general surgery: Present: normal inspection, trachea midline - Respiratory Respiratory exam: Present: CTAB. Absent: rales, rhonchi - Cardiovascular Cardiovascular exam: Present: RRR, +S1, +S2 - GI/Abdominal GI/Abdominal exam: Present: soft, tenderness (RUQ tenderess), no peritoneal signs. Absent: distended, firm, guarding - Rectal Rectal exam: Present: deferred - Extremities Exam Extremities exam: Present: warm - Neurological Exam Neurological exam: Present: no focal deficits - Psychiatric Psychiatric exam: Present: normal affect, normal mood - Skin Skin exam: Present: dry, intact, normal color, warm Results - Labs CBC & Chem 7: 11/08/18 04:41 11/08/18 04:41 Labs: Last Result 11/08/18 04:41 Calcium 7.8 L Triglycerides 195 H Entire Visit 11/08/18 11/08/18 11/08/18 04:41 04:41 06:27 Hgb 9.1 L Hct 28.0 L PT 12.2 H Total Bilirubin 0.3 AST 11 L ALT 7 - ABG ABG results: PT/INR, D-dimer PT 12.2 Seconds (9.4-12.1) H 11/08/18 06:27 Consult Discharge Plan - Plan Referrals: Fausto Jacques MD [Primary Care Provider] -
--- NOTE | 2018-11-08 14:31 | Nephrology Progress Note ---
Date of Encounter: 11/08/18 Time of Encounter: 10:15 - Assessment and Plan (1) ESRD (end stage renal disease) on dialysis Current Visit: Yes Status: Chronic Current regimen is MWF at [facility]. Often noncompliant and skips Wednesdays to take care of his horse in [place]. HD in progress for today. Renal diet Renal vitamins Strict I/O Avoid nephrotoxins and renal dose all medications. (2) Upper GI bleed Current Visit: Yes Status: Acute Per GI. No emesis at this time. (3) Anemia Current Visit: Yes Status: Acute Goal Hgb is 10-11. Hgb is 9.1,stable. Pt reported throwing up "chunks of blood " yesterday, Hgb has remained stable. GI consult, appreciate recommendations. Qualifiers: Qualified Code(s): D64.9 - Anemia, unspecified Subjective Principal diagnosis: abdominal pain Interval history: Patient seen and examined and HD. Tolerating well. Denies nausea, vomiting or diarrhea. Denies chest pain or shortness of breath. Less than abdominal pain is improved. Objective - Vital Signs Vital signs: Vital Signs Temp Pulse Resp BP Pulse Ox 11/08/18 13:45 187/90 11/08/18 13:30 192/96 11/08/18 13:15 197/94 11/08/18 13:00 200/97 11/08/18 12:45 200/92 11/08/18 12:30 191/86 11/08/18 12:15 195/85 11/08/18 12:00 98.7 F 20 189/94 11/08/18 08:03 98.9 F 86 20 174/92 95 11/08/18 04:55 98.6 F 88 16 151/69 95 11/08/18 01:00 98.2 F 88 16 160/76 96 11/07/18 22:05 167/67 11/07/18 20:47 98.6 F 89 18 182/89 98 11/07/18 15:38 99.1 F 80 19 165/81 98 Intake and Output 11/07/18 11/08/18 11/08/18 23:59 07:59 15:59 Intake Total 600 / 600 Output Total 950 / 950 250 / 250 Balance -950 / -950 350 / 350 Intake: Oral 0 / 0 Intake, Rinseback and Flushes 600 / 600 Output: Urine 250 / 250 Straight Cath 950 / 950 Other: Weight 94.3 kg Blood Glucose* 168 135 Hemodialysis Net Fluid Removed 1800 (mL) Patient Weight 11/08/18 23:59 Weight 94.3 kg - General Appearance General appearance: Present: well-developed, well-nourished EENT: Present: hearing intact, vision intact Neck: Present: supple Respiratory: Present: clear Cardiology: Present: no edema, normal S1, normal S2 Dialysis Vascular Access: Arteriovenous Graft thrill: Yes bruit: Yes Gastrointestinal: Present: normoactive bowel sounds, no tenderness, no guarding Integumentary: Present: no rash, warm and dry Neurologic: Present: alert and oriented x3 Musculoskeletal: Present: no deformities, no erythema Psychiatric: Present: mood/affect appropriate, cooperative - Lab 11/08/18 04:41 11/08/18 04:41 Most recent lab results 11/08/18 04:41 Calcium 7.8 L Phosphorus 5.8 H Magnesium 1.5 L Consult Discharge Plan - Plan Referrals: Fausto Jacques MD [Primary Care Provider] -
[2018-11-08] MEDS: Sucralfate 1 GM TABLET PO SCH ×3 (14:54→21:08)
--- NOTE | 2018-11-08 15:59 | Electrocardiograph Report ---
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
--- NOTE | 2018-11-08 16:01 | AcuteCare Surgery Consult Note ---
<Edda Phoenix Rona - Last Filed: 11/08/18 16:04> Date of Encounter: 11/08/18 Time of Encounter: 15:52 Assessment and Plan (1) Umbilical hernia Current Visit: No Status: Acute s/p umbilical hernia repair. Findings on CT are consistent. There is no evidence for concern of abscess. Pt to follow-up as previously recommended. Surgery will sign off at this time. Please call or reconsult if any further questions or needs arise Qualifiers: Obstruction and gangrene presence: without obstruction or gangrene Qualified Code(s): K42.9 - Umbilical hernia without obstruction or gangrene History of Present Illness Consult date: 11/08/18 (Dr. Fausto Pineda) Reason for consult: other Requesting physician: Libby Fischer History of present illness: Pt's past medical, surgical, and social history of been reviewed with the patient bedside. Surgery has been consulted for recommendations regarding of fluid collection on CAT scan Patient recently underwent EGD on 10/24/2018 which noted a non-bleeding esophageal ulcer and umbilical herniorrhaphy with mesh on 10/26/[address] Ragland. He was admitted to the hospital on 11/07/2018 with complaints of hematemasis. A CT r/o aortic dissection was completed and per report concern for umbilical periumbilical hernia containing a small amount of fluid in the foci of gas. The patient has no complaints regarding his recent hernia repair. He has had no drainage from the surgery site, has no redness, and has not had fever or chills. He does endorse vomiting of clots. 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 Type II Diabetic Psychiatric history: no psych history - Past Surgical History Surgical History: cholecystectomy, vascular surgery, other (Right thoracoscopy with pleurectomy and chemical pleurodesis) Additional surgical history: Prostate surgery (TURP), left arm av shunt. Right lung surgery x1 month ago. Hernia surgery 10 days ago - Social History Smoking Status: Never smoker Smokeless Tobacco Status: No Alcohol use: none Drug use: none - Family History Mother Adopted: No Living Status: Hx Family Cardiac Disorders: Yes (mother stroke) Hx Family Respiratory Disorders: Yes (Dad asthma copd) Hx Family Cancer: Yes (prostate, pancreatic) Hx Family GI Disorders: No Hx Family Endocrine Disorder: Yes (DM) Hx Family Neuromuscular Disorders: No Hx Family Neurologic Disorders: No Hx Family HEENT Disorders: No Hx Family Autoimmune Disorders: No Father Adopted: No Living Status: Hx Family Cardiac Disorders: Yes (father, stents) Hx Family Respiratory Disorders: Yes (father COPD) Hx Family Cancer: Yes (Father prostate cancer uncle colon) Hx Family GI Disorders: No Hx Family Endocrine Disorder: Yes (dM) Hx Family Neuromuscular Disorders: No Hx Family Neurologic Disorders: No Hx Family HEENT Disorders: No Hx Family Autoimmune Disorders: No Medications and Allergies Aspirin [Lo-Dose Aspirin EC] 81 mg PO DAILY 07/30/17 [History] Ergocalciferol (VITAMIN D2) [Vitamin D2] 100,000 unit PO WE 09/24/17 [History] Insulin Glargine,Hum.rec.anlog [Basaglar Kwikpen U-100] 30 unit SQ HS 02/01/18 [History] Atorvastatin [Lipitor] 40 mg PO HS 07/26/18 [History] Calcium Carbonate [Calcium] 600 mg PO DAILY 07/26/18 [History] Metoprolol Succinate [Toprol Xl] 25 mg PO QAM 07/26/18 [History] Nitroglycerin [Nitrostat] 0.4 mg SL Q5MIN PRN 07/26/18 [History] Insulin ASPART [Novolog Flexpen] 0 unit SQ BIDWM 09/27/18 [History] Isosorbide MONOnitrate [Isosorbide Mononitrate ER] 90 mg PO DAILY 09/27/18 [H istory] Ondansetron HCl 8 mg PO TID PRN 09/27/18 [History] Pantoprazole Sodium 40 mg PO DAILY 30 Days #30 tablet. 10/26/18 [Rx] Sucralfate [Carafate] 1 gm PO QIDAC 30 Days #90 tablet 10/26/18 [Rx] Allergy/AdvReac Type Severity Reaction Status Date / Time No Known Allergies Allergy Verified 10/24/18 13:58 Review of Systems All systems PM: reviewed and no additional remarkable complaints except as stated All systems PM: The remainder of the systems were reviewed and are negative General Surgery Exam Initial Vital Signs Temp Pulse Resp BP Pulse Ox 99.1 F 91 19 174/84 99 11/07/18 00:33 11/07/18 00:33 11/07/18 00:33 11/07/18 00:33 11/07/18 00:33 - General physical appearance no distress, no pain, other (examined in dialysis) - Respiratory normal expansion, normal respiratory effort - Cardiovascular Cardiovascular exam: Present: distant heart sounds - Abdomen Abdomen general surgery: Present: bowel sounds present, soft, non tender - Incision Incision: Present: clean and dry, intact - Neurologic Present: normal sensation - Musculoskeletal Present: normal posture - Psychiatric Psychiatric general surgery: Present: A&Ox3 Exam Initial Vital Signs Temp Pulse Resp BP Pulse Ox 99.1 F 91 19 174/84 99 11/07/18 00:33 11/07/18 00:33 11/07/18 00:33 11/07/18 00:33 11/07/18 00:33 Results - Labs 11/08/18 04:41 11/08/18 04:41 Abnormal lab results RBC 3.09 M/mcL (4.19-5.50) L 11/08/18 04:41 Hgb 9.1 g/dL (12.9-16.9) L 11/08/18 04:41 Hct 28.0 % (37.5-50.1) L 11/08/18 04:41 MPV 8.9 fL (9.4-12.4) L 11/08/18 04:41 PT 12.2 Seconds (9.4-12.1) H 11/08/18 06:27 Sodium 134 mEq/L (136-145) L 11/08/18 04:41 Potassium 5.2 mEq/L (3.5-5.1) H 11/08/18 04:41 Chloride 97 mEq/L (98-107) L 11/07/18 02:48 BUN 44 mg/dL (6-20) H 11/08/18 04:41 Creatinine 8.50 mg/dL (0.70-1.30) H 11/08/18 04:41 Est GFR ( Amer) 8 (> 60) L 11/08/18 04:41 Est GFR (Non-Af Amer) 7 (> 60) L 11/08/18 04:41 BUN/Creatinine Ratio 5 (6-26) L 11/08/18 04:41 Glucose 161 mg/dL (70-105) H 11/08/18 04:41 POC Glucose 135 mg/dL (70-99) H 11/08/18 11:17 Calcium 7.8 mg/dL (8.6-10.3) L 11/08/18 04:41 Phosphorus 5.8 mg/dL (2.7-4.5) H 11/08/18 04:41 Magnesium 1.5 mg/dL (1.6-2.6) L 11/08/18 04:41 AST 11 Units/L (13-39) L 11/08/18 04:41 Troponin I 0.05 ng/mL (< 0.04) H* 11/07/18 02:48 Albumin 3.1 g/dL (3.5-5.7) L 11/08/18 04:41 Globulin 3.6 g/dL (2.4-3.5) H 11/07/18 02:48 Albumin/Globulin Ratio 0.9 (1.1-2.2) L 11/08/18 04:41 Triglycerides 195 mg/dL (< 150) H 11/08/18 04:41 VLDL Cholesterol, Calc 39 mg/dL (< 31) H 11/08/18 04:41 HDL Cholesterol 33 mg/dL (40-59) L 11/08/18 04:41 Cholesterol/HDL Ratio 5.0 (0-4.9) H 11/08/18 04:41 Hep Bs Antibody < 3.10 mIU/mL (10.00-) L 11/07/18 02:48 Diabetes panel 11/08/18 Range/Units 04:41 Sodium 134 L (136-145) mEq/L Potassium 5.2 H (3.5-5.1) mEq/L Chloride 100 (98-107) mEq/L Carbon Dioxide 24 (23-29) mEq/L BUN 44 H (6-20) mg/dL Creatinine 8.50 H (0.70-1.30) mg/dL Glucose 161 H (70-105) mg/dL Calcium 7.8 L (8.6-10.3) mg/dL AST 11 L (13-39) Units/L ALT 7 (7-52) Units/L Alkaline Phosphatase 86 (34-104) Units/L Albumin 3.1 L (3.5-5.7) g/dL Triglycerides 195 H (< 150) mg/dL HDL Cholesterol 33 L (40-59) mg/dL Calcium panel 11/08/18 Range/Units 04:41 Calcium 7.8 L (8.6-10.3) mg/dL Phosphorus 5.8 H (2.7-4.5) mg/dL Albumin 3.1 L (3.5-5.7) g/dL Pituitary panel 11/08/18 Range/Units 04:41 Sodium 134 L (136-145) mEq/L Potassium 5.2 H (3.5-5.1) mEq/L Chloride 100 (98-107) mEq/L Carbon Dioxide 24 (23-29) mEq/L BUN 44 H (6-20) mg/dL Creatinine 8.50 H (0.70-1.30) mg/dL Glucose 161 H (70-105) mg/dL Calcium 7.8 L (8.6-10.3) mg/dL Adrenal panel 11/08/18 Range/Units 04:41 Sodium 134 L (136-145) mEq/L Potassium 5.2 H (3.5-5.1) mEq/L Chloride 100 (98-107) mEq/L Carbon Dioxide 24 (23-29) mEq/L BUN 44 H (6-20) mg/dL Creatinine 8.50 H (0.70-1.30) mg/dL Glucose 161 H (70-105) mg/dL Calcium 7.8 L (8.6-10.3) mg/dL Total Bilirubin 0.3 (0.3-1.0) mg/dL AST 11 L (13-39) Units/L ALT 7 (7-52) Units/L Alkaline Phosphatase 86 (34-104) Units/L Albumin 3.1 L (3.5-5.7) g/dL All other labs normal. - Imaging CT scan - abdomen: report reviewed, image reviewed (CT dissection) CT scan - chest: report reviewed, image reviewed CT scan - pelvis: report reviewed, image reviewed Consult Discharge Plan - Plan Referrals: Fausto Jacques MD [Primary Care Provider] - Edda Phoenix, PERMASTONE INSTALLER [Advanced Practice Nurse] - 11/15/18 2:45 pm <Fausto Pineda - Last Filed: 11/08/18 19:57> Date of Encounter: 11/08/18 Review of Systems All systems PM: The remainder of the systems were reviewed and are negative General Surgery Exam Initial Vital Signs Temp Pulse Resp BP Pulse Ox 99.1 F 91 19 174/84 99 11/07/18 00:33 11/07/18 00:33 11/07/18 00:33 11/07/18 00:33 11/07/18 00:33 Exam Initial Vital Signs Temp Pulse Resp BP Pulse Ox 99.1 F 91 19 174/84 99 11/07/18 00:33 11/07/18 00:33 11/07/18 00:33 11/07/18 00:33 11/07/18 00:33 Results - Labs 11/08/18 04:41 11/08/18 04:41 Abnormal lab results RBC 3.09 M/mcL (4.19-5.50) L 11/08/18 04:41 Hgb 9.1 g/dL (12.9-16.9) L 11/08/18 04:41 Hct 28.0 % (37.5-50.1) L 11/08/18 04:41 MPV 8.9 fL (9.4-12.4) L 11/08/18 04:41 PT 12.2 Seconds (9.4-12.1) H 11/08/18 06:27 Sodium 134 mEq/L (136-145) L 11/08/18 04:41 Potassium 5.2 mEq/L (3.5-5.1) H 11/08/18 04:41 Chloride 97 mEq/L (98-107) L 11/07/18 02:48 BUN 44 mg/dL (6-20) H 11/08/18 04:41 Creatinine 8.50 mg/dL (0.70-1.30) H 11/08/18 04:41 Est GFR ( Amer) 8 (> 60) L 11/08/18 04:41 Est GFR (Non-Af Amer) 7 (> 60) L 11/08/18 04:41 BUN/Creatinine Ratio 5 (6-26) L 11/08/18 04:41 Glucose 161 mg/dL (70-105) H 11/08/18 04:41 POC Glucose 131 mg/dL (70-99) H 11/08/18 16:09 Calcium 7.8 mg/dL (8.6-10.3) L 11/08/18 04:41 Phosphorus 5.8 mg/dL (2.7-4.5) H 11/08/18 04:41 Magnesium 1.5 mg/dL (1.6-2.6) L 11/08/18 04:41 AST 11 Units/L (13-39) L 11/08/18 04:41 Troponin I 0.05 ng/mL (< 0.04) H* 11/07/18 02:48 Albumin 3.1 g/dL (3.5-5.7) L 11/08/18 04:41 Globulin 3.6 g/dL (2.4-3.5) H 11/07/18 02:48 Albumin/Globulin Ratio 0.9 (1.1-2.2) L 11/08/18 04:41 Triglycerides 195 mg/dL (< 150) H 11/08/18 04:41 VLDL Cholesterol, Calc 39 mg/dL (< 31) H 11/08/18 04:41 HDL Cholesterol 33 mg/dL (40-59) L 11/08/18 04:41 Cholesterol/HDL Ratio 5.0 (0-4.9) H 11/08/18 04:41 Hep Bs Antibody < 3.10 mIU/mL (10.00-) L 11/07/18 02:48 Diabetes panel 11/08/18 Range/Units 04:41 Sodium 134 L (136-145) mEq/L Potassium 5.2 H (3.5-5.1) mEq/L Chloride 100 (98-107) mEq/L Carbon Dioxide 24 (23-29) mEq/L BUN 44 H (6-20) mg/dL Creatinine 8.50 H (0.70-1.30) mg/dL Glucose 161 H (70-105) mg/dL Calcium 7.8 L (8.6-10.3) mg/dL AST 11 L (13-39) Units/L ALT 7 (7-52) Units/L Alkaline Phosphatase 86 (34-104) Units/L Albumin 3.1 L (3.5-5.7) g/dL Triglycerides 195 H (< 150) mg/dL HDL Cholesterol 33 L (40-59) mg/dL Calcium panel 11/08/18 Range/Units 04:41 Calcium 7.8 L (8.6-10.3) mg/dL Phosphorus 5.8 H (2.7-4.5) mg/dL Albumin 3.1 L (3.5-5.7) g/dL Pituitary panel 11/08/18 Range/Units 04:41 Sodium 134 L (136-145) mEq/L Potassium 5.2 H (3.5-5.1) mEq/L Chloride 100 (98-107) mEq/L Carbon Dioxide 24 (23-29) mEq/L BUN 44 H (6-20) mg/dL Creatinine 8.50 H (0.70-1.30) mg/dL Glucose 161 H (70-105) mg/dL Calcium 7.8 L (8.6-10.3) mg/dL Adrenal panel 11/08/18 Range/Units 04:41 Sodium 134 L (136-145) mEq/L Potassium 5.2 H (3.5-5.1) mEq/L Chloride 100 (98-107) mEq/L Carbon Dioxide 24 (23-29) mEq/L BUN 44 H (6-20) mg/dL Creatinine 8.50 H (0.70-1.30) mg/dL Glucose 161 H (70-105) mg/dL Calcium 7.8 L (8.6-10.3) mg/dL Total Bilirubin 0.3 (0.3-1.0) mg/dL AST 11 L (13-39) Units/L ALT 7 (7-52) Units/L Alkaline Phosphatase 86 (34-104) Units/L Albumin 3.1 L (3.5-5.7) g/dL All other labs normal. - Attending Attestation I have personally performed a face to face evaluation on this patient. I have reviewed and agree with the care plan. History and Exam by me shows: The patient is seen and evaluated on morning rounds with the acute care surgery team. I personally reviewed the CAT scan. Findings are consistent with postoperative changes without any evidence of abscess. He may have had a small amount of bleeding in the area of hernia repair during anticoagulation secondary to dialysis. No evidence of abscess or infection. Follow-up with acute care surgery clinic. Fausto Pineda MD FACS
--- NOTE | 2018-11-08 16:04 | Electrocardiograph Report ---
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
--- NOTE | 2018-11-08 20:19 | Anesthesia Evaluation PreOp ---
Date of Encounter: 11/08/18 Time of Encounter: 20:17 - Past History Planned Operation: EGD Cardiac History: HTN, Hyperlipidemia, Arrhythmia (Paroxysmal AFib), Other (CAD, severe three vessel disease not amenable to PTCA or CABG) Pulmonary History: Denies Any Significant HX ANIMAL SCIENTIST History: Denies Any Significant HX Other Medical History: Renal (ESRD, Dialysis MWF), Diabetes Type II Anesthesia History: Past Anesthesia (Umb. Hewrnia, Rt Thoracoscopy/Pleurectomy/Bronch ) Alcohol Use: none Drug use: none Medications and Allergies Aspirin [Lo-Dose Aspirin EC] 81 mg PO DAILY 07/30/17 [History] Ergocalciferol (VITAMIN D2) [Vitamin D2] 100,000 unit PO WE 09/24/17 [History] Insulin Glargine,Hum.rec.anlog [Basaglar Kwikpen U-100] 30 unit SQ HS 02/01/18 [History] Atorvastatin [Lipitor] 40 mg PO HS 07/26/18 [History] Calcium Carbonate [Calcium] 600 mg PO DAILY 07/26/18 [History] Metoprolol Succinate [Toprol Xl] 25 mg PO QAM 07/26/18 [History] Nitroglycerin [Nitrostat] 0.4 mg SL Q5MIN PRN 07/26/18 [History] Insulin ASPART [Novolog Flexpen] 0 unit SQ BIDWM 09/27/18 [History] Isosorbide MONOnitrate [Isosorbide Mononitrate ER] 90 mg PO DAILY 09/27/18 [History] Ondansetron HCl 8 mg PO TID PRN 09/27/18 [History] Pantoprazole Sodium 40 mg PO DAILY 30 Days #30 tablet. 10/26/18 [Rx] Sucralfate [Carafate] 1 gm PO QIDAC 30 Days #90 tablet 10/26/18 [Rx] Fat Emulsions [Intralipid 20%] 11/08/18 [History] Allergy/AdvReac Type Severity Reaction Status Date / Time No Known Allergies Allergy Verified 10/24/18 13:58 - Meds/Allergy Pre-op Review Medications Reviewed: Yes Allergies Reviewed: Yes Beta Blockers on Current Med List: Yes Anesthesia Results - Labs 11/08/18 04:41 11/08/18 04:41 - Imaging EKG: report reviewed (Sinus rhythm Borderline short [place] interval Probable inferior infarct, old Electronically Signed On 11-08-2018 15:58:13 EDT by James Suarez) Additional studies: ECHO EF 55%, trivial pleural effusion Anesthesia Exam Vital Signs/O2 Sat, Most Current Temp Pulse Resp BP Pulse Ox 100.3 F H 94 17 123/73 95 11/08/18 19:18 11/08/18 19:18 11/08/18 19:18 11/08/18 19:18 11/08/18 19:18 - HEENT Pupil (Motor): Pupils equal, EOMI Mallampati: III Teeth: Normal Oral Opening: Greater than 3 - ANIMAL SCIENTIST LOC: Oriented ANIMAL SCIENTIST Motor: Normal RUE, Normal LUE, Normal RLE, Normal LLE, Normal Face ANIMAL SCIENTIST Sensory: Normal: RUE, LUE, RLE, LLE, Face - Cardiac Rhythm: Regular Murmur: None JVD: No Carotid Bruit: No - Pulmonary Breath Sounds: bilateral Clear Respiratory Effort: Symmetrical Anesthesia Assess/Plan ASA Score: 4 Level of consciousness: Cooperative Anesthetic Plan: MAC Autologous Blood: Yes Monitoring Plan: Standard Monitors Recovery Plan: Other
[2018-11-08] MEDS ORDERED: Insulin LISPRO 300 UNITS/3 ML VIAL SQ SCH (21:00)
[2018-11-09 01:22] LABS: Basophils # 0.1 K/mcL (0.0-0.2); Basophils % 0.7 %; Eosinophils # 0.2 K/mcL (0.0-0.6); Eosinophils % 2.5 %; Hemoglobin 10.5 g/dL (12.9-16.9); Immature Granulocytes % 0.6 % (0-4); Lymphocytes # 1.3 K/mcL (0.6-4.6); Lymphocytes % 18.5 %; Mean Corpuscular HGB Conc 32.8 g/dL (31.6-35.5); Mean Corpuscular Hemoglobin 30.3 pg (28.0-33.3); Mean Corpuscular Volume 92.2 fL (83.0-100.0); Mean Platelet Volume 8.7 fL (9.4-12.4); Monocytes # 0.7 K/mcL (0.0-1.3); Neutrophils # 4.5 K/mcL (1.6-8.9); Platelet Count 230 K/mcL (140-400); Red Blood Count 3.47 M/mcL (4.19-5.50); Segmented Neutrophils % 66.7 %; White Blood Count 6.7 K/mcL (4.3-11.1)
[2018-11-09 01:35] LABS: Calcium 8.2 mg/dL (8.6-10.3); Magnesium 1.6 mg/dL (1.6-2.6); Phosphorous 4.5 mg/dL (2.7-4.5); Potassium 4.4 mEq/L (3.5-5.1)
[2018-11-09] MEDS: Pantoprazole 40 MG VIAL IVP SCH (06:37)
--- NOTE | 2018-11-09 08:07 | Internal Med Progress Note ---
Hospitalist Progress Note - Encounter Date of Encounter: 11/09/18 - Subjective Interval History: Pt was seen and examined at bedside. No acute complaints today. He is in a bad mood because he has been NPO. He has refused all of his medications since yesterday afternoon except metoprolol. He also refused blood draws but agreed to one this morning. He is also refusing dressing changes for his kenan LE wounds. He says he doesn't want to do dialysis anymore either. He understands that stopping dialysis will worsen his condition but he says he is ready for the end. Denies fever, chills, headache, weakness, chest pain, palpitations, difficulty breathing, abd pain, N/V/D/C, hematemesis, melena, dysuria, urinary freq/urgency, blood in urine. Denies hematemesis since admission. Last BM last night, regular. - Exam Vitals: Temp Pulse Resp BP Pulse Ox 98.8 F 87 16 127/78 98 11/09/18 06:43 11/09/18 06:43 11/09/18 06:43 11/09/18 06:43 11/09/18 06:43 Exam: Constitutional: alert, oriented, in no acute distress, oriented X 3, well nourished, well-developed Head: normocephalic, atraumatic Heart: normal, regular rate and rhythm, no murmurs, S1, S2 normal Lungs: clear to auscultation, no wheezes, rales, rhonchi Abdomen: soft, nontender, nondistended, bowel sounds present and normal, no hepatosplenomegaly, no guarding or rigidity, no CVA tenderness, surgery site C/ D/I without discharge Extremities: no clubbing, cyanosis, or edema, pulses +3/4 in all 4 extremities, wounds on kenan LE Skin: dry, intact, no bruising Psych: alert, oriented, cooperative with exam, good eye contact, cognitive function intact, speech clear, doesn't want to continue dialysis treatment and is ready for the end - Assessment and Plan (1) Upper GI bleed Current Visit: Yes Status: Acute (2) Chronic anemia Current Visit: Yes Status: Chronic Comments: - denies weakness, bloody BM, hematemesis, blood in urine. hemodynamically stable. - current hgb 10.5 (improved from 9.1) - discontinue serial H/H - continue to monitor vitals - continue to monitor hemoglobin (3) ESRD (end stage renal disease) on dialysis Current Visit: Yes Status: Chronic Comments: - received dialysis yesterday. pt does not wish to continue dialysis treatment. - BUN 26 (improved from 44), creat 6.01 (improved from 8.50), eGFR 10, baseline unknown - monitor vitals - monitor labs (4) Fluid collection at surgical site Current Visit: Yes Status: Acute Comments: - CT chest shows some fluid collection in foci of gas under surgical site, r/o poss abscess - denies fever, chills, diaphoresis - no leukocytosis - Surgery recs: no abscess, f/u with acute surgery outpatient (5) Elevated troponin Current Visit: Yes Status: Chronic Comments: - likely due to hx of ESRD - denies chest pain, palpitations, SOB - EKG normal at admission - baseline unknown (6) Hypertension Current Visit: No Status: Chronic Comments: - BP was 127/78, normotensive with metoprolol - took metoprolol last night (denied all other meds) - denies palpations, headche, vision changes - continue to hold imdur due to potential active bleeding - monitor vitals (7) Wound of lower extremity Current Visit: Yes Status: Chronic Comments: - normally sees wound care outpatient for wounds on kenan LE - wound care recs: dressing changes everyday - pt declined dressing changes (8) Hypomagnesemia Current Visit: Yes Status: Acute Comments: - Mg 1.6 (improved from 1.5) - pt declined Mg yesterday - monitor labs - Time Spent with Patient Total time spent is greater than 50% in coordination of care (as documented) at patient's floor/unit and/or counseling patient: Internal Medicine: Result - Labs CBC & Chem 7: 11/09/18 00:18 11/09/18 00:18 Labs: Short CBC 11/09/18 Range/Units 00:18 WBC 6.7 (4.3-11.1) K/mcL Hgb 10.5 L (12.9-16.9) g/dL Hct 32.0 L (37.5-50.1) % Plt Count 230 (140-400) K/mcL Neutrophils # 4.5 (1.6-8.9) K/mcL BMP 11/09/18 00:18 Sodium 135 L Potassium 4.4 Chloride 98 Carbon Dioxide 26 BUN 26 H Creatinine 6.01 H Glucose 123 H Calcium 8.2 L - ABG Interpretation ABG results: PT/INR, D-dimer PT 12.2 Seconds (9.4-12.1) H 11/08/18 06:27 Consult Discharge Plan - Plan Referrals: Fausto Jacques MD [Primary Care Provider] - Edda Phoenix CNP [Advanced Practice Nurse] - 11/15/18 2:45 pm (6) Hypertension Qualifiers: Hypertension type: essential hypertension Qualified Code(s): I10 - Essential (primary) hypertension (7) Wound of lower extremity Qualifiers: Encounter type: subsequent encounter Laterality: unspecified laterality Qualified Code(s): S81.809D - Unspecified open wound, unspecified lower leg, subsequent encounter
[2018-11-09] MEDS: Insulin LISPRO 300 UNITS/3 ML VIAL SQ SCH ×2 (08:48→12:05)
[2018-11-09] MEDS: Metoprolol XL (24 HR) Succ 25 MG TAB.ER.24H PO SCH (08:56)
[2018-11-09] MEDS: Sucralfate 1 GM TABLET PO SCH ×2 (08:56→12:05)
--- NOTE | 2018-11-09 13:47 | Nephrology Progress Note ---
Date of Encounter: 11/09/18 Time of Encounter: 13:45 - Assessment and Plan (1) ESRD (end stage renal disease) on dialysis Current Visit: Yes Status: Chronic Current regimen is MWF at [facility]. 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 HD completed yesterday without complication. Plan for HD tomorrow if patient will allow. Renal diet Renal vitamins Strict I/O Avoid nephrotoxins and renal dose all medications. (2) Upper GI bleed Current Visit: Yes Status: Acute Per GI. No emesis at this time. (3) Anemia Current Visit: Yes Status: Acute Goal Hgb is 10-11. Hgb is 10.5 ,stable. Pt reported throwing up "chunks of blood " yesterday, Hgb has remained stable. GI consult, appreciate recommendations. Qualifiers: Qualified Code(s): D64.9 - Anemia, unspecified Subjective Principal diagnosis: abdominal pain Interval history: Patient seen and examine. Patient is refusing a lot of hospital care due to him not getting his JULIANA yesterday as planned. He was in hemodialysis when it was scheduled and it was not done after it has not been done yet today. Examined patient with Dr. Stout at bedside, he refuses he may dialysis anymore at this point. I am hopeful he is just frustrated and I will speak with him tomorrow to see if he truly wants to stop hemodialysis. Dr. Stout and I explained that stopping hemodialysis will eventually kill him, he states this is not a life he wants to live. Denies chest pain or shortness of breath. Denies nausea, vomiting, or diarrhea. Objective - Vital Signs Vital signs: Vital Signs Temp Pulse Resp BP Pulse Ox 11/09/18 11:50 98.4 F 96 14 132/86 99 11/09/18 06:43 98.8 F 87 16 127/78 98 11/09/18 01:08 97.8 F 92 17 126/65 94 11/08/18 21:51 99.4 F 11/08/18 19:18 100.3 F H 94 17 123/73 95 11/08/18 17:04 99.7 F H 105 20 104/67 97 11/08/18 15:51 97.4 F L 18 160/83 11/08/18 15:30 131/75 11/08/18 15:15 137/70 11/08/18 15:00 144/75 11/08/18 14:45 149/79 11/08/18 14:30 175/86 11/08/18 14:15 177/74 11/08/18 14:00 183/94 11/08/18 13:45 187/90 Intake and Output 11/08/18 11/09/18 11/09/18 23:59 07:59 15:59 Intake Total 0 / 0 Output Total 350 / 4200 Balance -350 / -3600 0 / 0 Intake: Oral 0 / 0 Output: Urine 350 / 600 Other: Meal NPO Percent of Meal Consumed 0% Weight 92.3 kg Blood Glucose* 143 138 123 Patient Weight 11/09/18 23:59 Weight 92.3 kg - General Appearance General appearance: Present: well-developed, well-nourished EENT: Present: ATNC, hearing intact, vision intact Neck: Present: supple Respiratory: Present: clear Cardiology: Present: no edema, normal S1, normal S2 Dialysis Vascular Access: Arteriovenous Graft thrill: Yes bruit: Yes Gastrointestinal: Present: normoactive bowel sounds, no tenderness, no guarding Integumentary: Present: no rash, warm and dry Neurologic: Present: alert and oriented x3 Musculoskeletal: Present: no deformities, no erythema Psychiatric: Present: mood/affect appropriate, cooperative - Lab 11/09/18 00:18 11/09/18 00:18 Consult Discharge Plan - Plan Referrals: Fausto Jacques MD [Primary Care Provider] - Edda Phoenix CNP [Advanced Practice Nurse] - 11/15/18 2:45 pm
[2018-11-09 16:23] VITALS: BP 132/86
--- NOTE | 2018-11-09 17:00 | Discharge Summary ---
<Lydia Bhatt S - Last Filed: 11/09/18 17:57> - NOTES TO OUTPATIENT PROVIDER Notes to Outpatient Provider: Patient was admitted for hematemesis. Patient was planned to have EGD. Hemoglobin on admission was 9.0 and improved to 10.5 at the end of hospital course. Patient was kept nothing by mouth for impending EGD. He was also given dialysis during his stay. Uncomplicated hospital course. Patient has history of noncompliance to dialysis. He is frustrated with dialysis and is considering discontinuing treatment in the future and currently says that he does not want to continue dialysis treatment. Unsure if this is how he really feels or if he was just frustrated with prolonged hospital stay. Patient was encouraged to continue EGD and dialysis treatment outpatient. Patient left AMA. Date of Encounter: 11/09/18 Time of Encounter: 16:56 - Discharge Diagnosis (1) Upper GI bleed Priority: Primary Status: Acute (2) Chronic anemia Priority: Secondary Status: Chronic (3) ESRD (end stage renal disease) on dialysis Priority: Secondary Status: Chronic (4) Fluid collection at surgical site Priority: Secondary Status: Acute (5) Elevated troponin Priority: Secondary Status: Chronic (6) Hypertension Priority: Secondary Status: Chronic Qualifiers: Hypertension type: essential hypertension Qualified Code(s): I10 - Essential (primary) hypertension (7) Wound of lower extremity Priority: Secondary Status: Chronic Qualifiers: Encounter type: subsequent encounter Laterality: unspecified laterality Qualified Code(s): S81.809D - Unspecified open wound, unspecified lower leg, subsequent encounter (8) Hypomagnesemia Priority: Secondary Status: Acute Hospital course: Mr. Hernandez is a 53 year old male who was seen on 11/07/18 for hematemesis. Chest x-ray was negative, CT dissection did not show evidence of an aortic dissection. He was admitted for an upper GI bleed. He was planned for an EGD on 11/09/2018. She was also seen by nephrology given his PMH of ESRD on dialysis. He received 1 session of dialysis during his hospital stay. CT dissection also showed small foci of fluid collection near recent umbilical hernia repair. Surgery was consult to rule out abscess. Surgery recommended follow-up as an outpatient acute surgery. He was noncompliant with blood draws and medications starting the night of 7/29/19. He grew more frustrated and stated that he does not wish to continue his dialysis treatments either. Patient has history of noncompliance to dialysis. He is frustrated with dialysis and is considering discontinuing treatment in the future. Unsure if this is how he really feels or if he was just frustrated with prolonged hospital stay. He was scheduled for EGD in the afternoon on 11/09/18, but he wanted to leave AMA. He was informed that if he had stayed following services would have been provided: EGD, further monitoring/treatment as indicated, dialysis. He was also informed of the potential benefits if he stayed and received those services as follows: Definitive diagnosis/treatment, dialysis, improved functional status. Patient was made aware of the risks of refusing the services: Continued bleeding, further illness/injury, permanent disability, . Patient was alert and oriented 3. He understood the risks and chose to leave AGAINST MEDICAL ADVICE. - Time Spent with Patient Total time spent providing and/or coordinating discharge services: - Discharge Medications Prescriptions: No Action Aspirin [Lo-Dose Aspirin EC] 81 mg PO DAILY Ergocalciferol (VITAMIN D2) [Vitamin D2] 50,000 unit PO WE Calcium Carbonate [Calcium] 600 mg PO DAILY Nitroglycerin [Nitrostat] 0.4 mg SL Q5MIN PRN PRN Reason: Chest Pain Isosorbide MONOnitrate [Isosorbide Mononitrate ER] 30 mg PO DAILY Sucralfate [Carafate] 1 gm PO QIDAC 30 Days #90 tablet Pantoprazole Sodium 40 mg PO DAILY 30 Days #30 tablet. Dexlansoprazole [Dexilant] 30 mg PO DAILY Furosemide [Lasix] 40 mg PO DAILY Lisinopril 2.5 mg PO DAILY Ranolazine [Ranexa] 1,000 mg PO BID Nitroglycerin [Nitrostat] 0.4 mg SL Q5MIN PRN PRN Reason: Chest Pain Home Medications: Aspirin [Lo-Dose Aspirin EC] 81 mg PO DAILY 07/30/17 [History] Ergocalciferol (VITAMIN D2) [Vitamin D2] 50,000 unit PO WE 09/24/17 [History] Calcium Carbonate [Calcium] 600 mg PO DAILY 07/26/18 [History] Nitroglycerin [Nitrostat] 0.4 mg SL Q5MIN PRN 07/26/18 [History] Isosorbide MONOnitrate [Isosorbide Mononitrate ER] 30 mg PO DAILY 09/27/18 [History] Pantoprazole Sodium 40 mg PO DAILY 30 Days #30 tablet. 10/26/18 [Rx] Sucralfate [Carafate] 1 gm PO QIDAC 30 Days #90 tablet 10/26/18 [Rx] Dexlansoprazole [Dexilant] 30 mg PO DAILY 11/09/18 [History] Furosemide [Lasix] 40 mg PO DAILY 11/09/18 [History] Lisinopril 2.5 mg PO DAILY 11/09/18 [History] Nitroglycerin [Nitrostat] 0.4 mg SL Q5MIN PRN 11/09/18 [History] Ranolazine [Ranexa] 1,000 mg PO BID 11/09/18 [History] Allergies/Adverse Reactions: Allergy/AdvReac Type Severity Reaction Status Date / Time No Known Allergies Allergy Verified 10/24/18 13:58 Date of admission: 11/09/18 14:45 Primary care physician: Fausto Jacques MD Consults: 11/07/18 04:14 Consult to Nephrology [CONS] Stat Consulting Provider: Kidney Mary Jo/MARGO/MAGDALENA/JUSTICE Reason for Consult: Dialysis Time Notified: 04:14 Call Completed: Yes 11/08/18 05:48 Consult to Gastroenterology [CONS] Routine Consulting Provider: Gastroenterology Mary Jo Reason for Consult: Upper GI bleed Call Completed: Yes 11/08/18 05:50 Consult to Surgery [CONS] Routine Consulting Provider: Acute Care Surgery Reason for Consult: Hernia Call Completed: Yes 11/08/18 09:45 Consult to Dialysis [CONS] ONCE 11/08/18 13:51 Consult to Wound Care [CONS] Routine Reason for Consult: sees routine wound care outpatient for kenan LE Call Completed: No 11/09/18 09:02 Consult to Nurse Navigator [CONS] Routine Comment: hd Discharging clinician: Lydia Bhatt - Constitutional Vitals: Temp Pulse Resp BP Pulse Ox 98.4 F 96 14 132/86 99 11/09/18 11:50 11/09/18 11:50 11/09/18 11:50 11/09/18 11:50 11/09/18 11:50 Exam: Constitutional: alert, oriented, in no acute distress, oriented X 3, well nourished, well-developed Head: normocephalic, atraumatic Heart: normal, regular rate and rhythm, no murmurs, S1, S2 normal Lungs: clear to auscultation, no wheezes, rales, rhonchi Abdomen: soft, slightly tender to palpation in LUQ, possible firm mass in LUQ, nondistended, bowel sounds present and normal, no hepatomegaly, no guarding or rigidity, no CVA tenderness Extremities: no clubbing, cyanosis, or edema, pulses +3/4 in all 4 extremities, wounds on kenan shins Skin: dry, intact, no bruising Psych: alert, oriented, cooperative with exam, good eye contact, cognitive function intact, judgement and insight good, speech clear, thought process logical, goal directed - Patient Status Disposition: Left Against Medical Advice Condition: Good Functional capacity at discharge: independent ambulation Overall status at discharge: patient is not back to baseline - Discharge Instructions Follow Up With: Fausto Jacques MD [Primary Care Provider] - (web requested 11/09/2018) Edda Phoenix CNP [Advanced Practice Nurse] - 11/15/18 2:45 pm Additional Instructions: Please continue regular dialysis regimen. Please adhere to a regular dialysis schedule. Please follow up with outpatient gastroenterology for an outpatient EGD. Please return to the ED if you experience fevers, chills, bleeding, abdominal pain, chest pain, shortness of breath, or any other concerning symptoms. - Diet and Activity Activity: resume usual activities as tolerated Diet: other (Renal diet), regular diet <Lluvia Appiah - Last Filed: 11/10/18 06:17> Date of Encounter: 11/10/18 - Discharge Diagnosis (1) Hypotension Status: Acute Qualifiers: Hypotension type: other hypotension type Qualified Code(s): I95.89 - Other hypotension (2) ESRD (end stage renal disease) on dialysis Status: Chronic (3) Cardiomyopathy Status: Acute Qualifiers: Cardiomyopathy type: ischemic Qualified Code(s): I25.5 - Ischemic cardiomyopathy (4) Upper GI bleed Status: Acute (5) Elevated troponin Status: Chronic Hospital course: Mr. Hernandez is a 53 year old male - Time Spent with Patient Total time spent providing and/or coordinating discharge services: Date of admission: 11/09/18 14:45 Primary care physician: Fausto Jacques MD Consults: 11/07/18 04:14 Consult to Nephrology [CONS] Stat Consulting Provider: Kidney Mary Jo/MARGO/MAGDALENA/JUSTICE Reason for Consult: Dialysis Time Notified: 04:14 Call Completed: Yes 11/08/18 05:48 Consult to Gastroenterology [CONS] Routine Consulting Provider: Gastroenterology Mary Jo Reason for Consult: Upper GI bleed Call Completed: Yes 11/08/18 05:50 Consult to Surgery [CONS] Routine Consulting Provider: Acute Care Surgery Reason for Consult: Hernia Call Completed: Yes 11/08/18 09:45 Consult to Dialysis [CONS] ONCE 11/08/18 13:51 Consult to Wound Care [CONS] Routine Reason for Consult: sees routine wound care outpatient for kenan LE Call Completed: No 11/09/18 09:02 Consult to Nurse Navigator [CONS] Routine Comment: hd - Constitutional Vitals: Temp Pulse Resp BP Pulse Ox 98.4 F 96 14 132/86 99 11/09/18 11:50 11/09/18 11:50 11/09/18 11:50 11/09/18 11:50 11/09/18 11:50 - Attending Attestation I examined this patient and my medical decision-making was reviewed with the Resident Physician Dr Bhatt. I agree with the documented findings, disposition and treatment plan as described except to the extent set forth below. Mr Hernandez is being observed for hemetemesis. egd was not preformed today and pt got upset with diet and signed out ama. he was a readmission. he required gi consult for his reports of vomiting blood clots which was taken seriously given his hx of recent esophagitis and hx of anemia. High risk readmission due to pt repeated history of non compliance. Of note throughout this admit he did not comply routinely with taking meds as ordered or with vs checks. awake, + nausea, dennies emesis. cont abd pain. no fevers or chills. no bm. gen- alert, awake,appears stated age cv- reg rate and rhythm, normal s1,s2 lungs- ctabl, normal resp effort on room air abd- soft, non tender, non distended, + bs neuro- AAOx3 Presumed upper GIB w Hemetemesis not visualized- hemodynamically stable recent dx esophagitis -serial h/hs stable, IV PPI, gi decided to not preform egd but monitor with slow advancement of diet, pt angry and signed out ama ESRD on HD- nephro followed s/p dye load for imaging in ED, he is known to routinely miss HD sessions weekly s/p umbilical hernia repair w CT a/p with gas and possibe abscess/fluid collection- Dr Pineda evaluated and stable post op changes, not infection/abscess HTN- he left before full home regimen could be resumed but BPs had been stable PATIENT LEFT AMA CORRECTION TO RESIDENT DOCUMENTATION- Mr David ring is admitted for missed HD sessions. 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 He noted he is frustrated with dialysis and maybe in the future he will just stop it. He is routinely frustrated as evidenced with his missed sessions then returning to hospital for medical care. On my assessment of him he is appropriate in his discussions, his mood was his baseline, he was encouraged to follow up and that he and his nephro (whom have been following throughout this admission) can cont to discuss his treatment plans and if at some future date he truly wants to stop HD they would make that decision together. He was compliant with all sessions while here
== END 2018-11-09 16:15 | disposition left against medical advice (07) | DRG 377 ==
LOC: EMEROOARM 00:20 → 2ANU 00:20 → SUATTDRO 05:25 → 2ANU 06:05
PROVIDERS: ADMIT Family Medicine; ATTEND Internal Medicine

== ENCOUNTER 2018-11-17 06:43 | Observation (INO) ==
[2018-11-17] MEDS ORDERED: Ondansetron 4 MG/2 ML VIAL IVP ONE (06:59)
[2018-11-17] MEDS ORDERED: Morphine Sulfate 2 MG/ML SYRINGE IVP ONE (06:59)
[2018-11-17 07:17] LABS: Basophils % 0.3 %; Eosinophils # 0.1 K/mcL (0.0-0.6); Eosinophils % 0.5 %; Hematocrit 31.3 % (37.5-50.1); Hemoglobin 10.5 g/dL (12.9-16.9); Immature Granulocytes % 0.4 % (0-4); Lymphocytes # 1.3 K/mcL (0.6-4.6); Lymphocytes % 12.2 %; Mean Corpuscular HGB Conc 33.5 g/dL (31.6-35.5); Mean Corpuscular Hemoglobin 29.6 pg (28.0-33.3); Mean Corpuscular Volume 88.2 fL (83.0-100.0); Mean Platelet Volume 8.5 fL (9.4-12.4); Monocytes # 0.8 K/mcL (0.0-1.3); Monocytes % 8.1 %; Neutrophils # 8.1 K/mcL (1.6-8.9); Platelet Count 282 K/mcL (140-400); Red Blood Count 3.55 M/mcL (4.19-5.50); Red Cell Distribution Width 13.1 % (11.5-14.5); Segmented Neutrophils % 78.5 %; White Blood Count 10.3 K/mcL (4.3-11.1)
[2018-11-17] MEDS ORDERED: 0.9 % Sodium Chloride 500 ML IVC ONE (07:26)
[2018-11-17 07:40] LABS: Albumin 3.6 g/dL (3.5-5.7); Albumin/Globulin Ratio 0.9 (1.1-2.2); Bilirubin,Total 0.3 mg/dL (0.3-1.0); Globulin 4.1 g/dL (2.4-3.5); Potassium 4.3 mEq/L (3.5-5.1); Total Protein 7.7 g/dL (6.4-8.9)
[2018-11-17] MEDS ORDERED: Pantoprazole 40 MG VIAL IVP ONE (08:11)
[2018-11-17] MEDS ORDERED: Naloxone 0.4 MG/ML INJ IVP PRN (08:54)
[2018-11-17] MEDS ORDERED: Nitroglycerin 0.4 MG TAB.SUBL SL PRN (09:03)
[2018-11-17] MEDS ORDERED: Dextrose Gel 15 GM/37.5 ML TUBE PO PRN ×2 (09:08)
[2018-11-17] MEDS ORDERED: *HR* Dextrose 50 % in Water (Syg) 50 ML SYRINGE IVP PRN (09:08)
[2018-11-17] MEDS ORDERED: D5% in Water 1,000 ML IVC PRN (09:08)
[2018-11-17] MEDS ORDERED: *HR* Metoprolol 5 MG/5 ML VIAL IVP PRN (09:09)
[2018-11-17] MEDS ORDERED: Ergocalciferol (VIT D2) 50,000 UNIT (1.25MG) CAP PO SCH (09:15)
[2018-11-17] MEDS ORDERED: Sucralfate 1 GM TABLET PO SCH (11:30)
[2018-11-17] MEDS: Insulin LISPRO 300 UNITS/3 ML VIAL SQ SCH ×2 (11:37→17:19)
[2018-11-17] MEDS: Sucralfate 1 GM TABLET PO SCH ×4 (12:08→22:27)
[2018-11-17] MEDS: Furosemide 40 MG TABLET PO SCH (12:09)
[2018-11-17] MEDS: Isosorbide MONOnitrate (24 HR) 30 MG TAB.ER.24H PO SCH (12:09)
[2018-11-17] MEDS: Ondansetron 4 MG/2 ML VIAL IVP PRN ×2 (12:12→22:27)
[2018-11-17] MEDS ORDERED: 0.9 % Sodium Chloride 250 ML IVC PRN (13:47)
[2018-11-17] MEDS ORDERED: 0.9 % Sodium Chloride 1,000 ML ONE (13:58)
[2018-11-17] MEDS ORDERED: 0.9 % Sodium Chloride 1,000 ML PRIME SCH (14:00)
[2018-11-17] MEDS ORDERED: Acetaminophen 325 MG TABLET PO PRN (14:06)
[2018-11-17] MEDS: *HR* Promethazine 25 MG/ML VIAL IVP PRN (17:13)
[2018-11-17] MEDS: Pantoprazole 40 MG VIAL IVP SCH (17:14)
[2018-11-17] MEDS: Ranolazine 500 MG TAB.ER.12H PO SCH (22:27)
[2018-11-18] MEDS: Insulin LISPRO 300 UNITS/3 ML VIAL SQ SCH ×4 (00:48→17:26)
[2018-11-18 02:21] LABS: Basophils % 0.6 %; Eosinophils # 0.1 K/mcL (0.0-0.6); Eosinophils % 1.7 %; Hematocrit 29.2 % (37.5-50.1); Hemoglobin 9.4 g/dL (12.9-16.9); Immature Granulocytes % 0.4 % (0-4); Lymphocytes % 13.2 %; Mean Corpuscular HGB Conc 32.2 g/dL (31.6-35.5); Mean Corpuscular Hemoglobin 29.9 pg (28.0-33.3); Mean Platelet Volume 8.7 fL (9.4-12.4); Monocytes # 0.6 K/mcL (0.0-1.3); Monocytes % 8.1 %; Neutrophils # 5.5 K/mcL (1.6-8.9); Platelet Count 222 K/mcL (140-400); Red Blood Count 3.14 M/mcL (4.19-5.50); Red Cell Distribution Width 13.4 % (11.5-14.5); White Blood Count 7.3 K/mcL (4.3-11.1)
[2018-11-18 02:30] LABS: INR 1.2; Prothrombin Time 13.1 Seconds (9.4-12.1)
[2018-11-18 02:38] LABS: Albumin 3.2 g/dL (3.5-5.7); Albumin/Globulin Ratio 0.8 (1.1-2.2); Bilirubin,Total 0.3 mg/dL (0.3-1.0); Globulin 3.8 g/dL (2.4-3.5); Potassium 4.6 mEq/L (3.5-5.1)
[2018-11-18] MEDS: *HR* Promethazine 25 MG/ML VIAL IVP PRN (04:54)
[2018-11-18] MEDS: Pantoprazole 40 MG VIAL IVP SCH ×2 (04:54→17:34)
[2018-11-18] MEDS ORDERED: Furosemide 40 MG TABLET PO SCH (09:00)
[2018-11-18] MEDS ORDERED: Aspirin Enteric Coated 81 MG Tablet PO SCH (09:00)
[2018-11-18] MEDS ORDERED: Isosorbide MONOnitrate (24 HR) 30 MG TAB.ER.24H PO SCH (09:03)
[2018-11-18] MEDS: Ondansetron 4 MG/2 ML VIAL IVP PRN (09:41)
[2018-11-18] MEDS: Cholecalciferol (D-3) 1,000 UNIT (25MCG) TABLET PO SCH (09:42)
[2018-11-18] MEDS: Ranolazine 500 MG TAB.ER.12H PO SCH ×2 (09:42→21:06)
[2018-11-18] MEDS: Furosemide 40 MG TABLET PO SCH (09:42)
[2018-11-18] MEDS: Sucralfate 1 GM TABLET PO SCH ×4 (09:42→21:06)
[2018-11-18] MEDS: Isosorbide MONOnitrate (24 HR) 30 MG TAB.ER.24H PO SCH (09:43)
[2018-11-18] MEDS ORDERED: *HR* Propofol 200 MG/20 ML VIAL IVP ONE (12:08)
[2018-11-18] MEDS ORDERED: Heparin 1,000 UNITS/500 mL 500 ML ONE (13:27)
[2018-11-18] MEDS ORDERED: 0.9 % Sodium Chloride 500 ML ONE ×2 (13:27→13:35)
[2018-11-18] MEDS ORDERED: Isovue-300 50ML VIAL IVP ONE (13:41)
[2018-11-18] MEDS ORDERED: Insulin LISPRO 300 UNITS/3 ML VIAL SQ SCH (21:00)
[2018-11-19] MEDS: Ondansetron 4 MG/2 ML VIAL IVP PRN ×2 (01:52→13:38)
[2018-11-19] MEDS: Sucralfate 1 GM TABLET PO SCH ×2 (06:04→13:37)
[2018-11-19] MEDS: Pantoprazole 40 MG VIAL IVP SCH (06:04)
[2018-11-19] MEDS ORDERED: 0.9 % Sodium Chloride 250 ML IVC PRN (07:42)
[2018-11-19] MEDS ORDERED: 0.9 % Sodium Chloride 1,000 ML PRIME SCH (07:45)
[2018-11-19 07:56] LABS: Hematocrit 28.8 % (37.5-50.1); Hemoglobin 9.2 g/dL (12.9-16.9)
[2018-11-19 08:13] LABS: Calcium 7.6 mg/dL (8.6-10.3); Potassium 4.8 mEq/L (3.5-5.1)
[2018-11-19] MEDS: Ranolazine 500 MG TAB.ER.12H PO SCH (08:22)
[2018-11-19] MEDS: *HR* Promethazine 25 MG/ML VIAL IVP PRN (08:22)
[2018-11-19] MEDS: Furosemide 40 MG TABLET PO SCH (08:23)
[2018-11-19] MEDS: Insulin LISPRO 300 UNITS/3 ML VIAL SQ SCH ×2 (08:23→12:13)
[2018-11-19] MEDS: Isosorbide MONOnitrate (24 HR) 30 MG TAB.ER.24H PO SCH (08:23)
[2018-11-19] MEDS: Cholecalciferol (D-3) 1,000 UNIT (25MCG) TABLET PO SCH (08:24)
[2018-11-19 13:46] VITALS: BP 132/65
== END 2018-11-19 14:57 | disposition home or self-care (01) ==
LOC: EMEROOARM 06:43 → 2ANU 06:43 → SUATTDRO 09:51 → 2ANU 10:48
PROVIDERS: ADMIT Internal Medicine; ATTEND Internal Medicine

== ENCOUNTER 2018-11-22 05:54 | Observation (INO) ==
[2018-11-22] MEDS ORDERED: Nitroglycerin 0.4 MG TAB.SUBL SL STA (06:32)
[2018-11-22] MEDS ORDERED: Aspirin 81 MG TAB.CHEW PO STA (06:32)
[2018-11-22 06:45] LABS: Basophils % 0.5 %; Eosinophils # 0.3 K/mcL (0.0-0.6); Eosinophils % 3.8 %; Hematocrit 27.2 % (37.5-50.1); Immature Granulocytes % 0.8 % (0-4); Lymphocytes # 1.4 K/mcL (0.6-4.6); Lymphocytes % 18.8 %; Mean Corpuscular HGB Conc 33.1 g/dL (31.6-35.5); Mean Corpuscular Hemoglobin 29.6 pg (28.0-33.3); Mean Corpuscular Volume 89.5 fL (83.0-100.0); Mean Platelet Volume 8.9 fL (9.4-12.4); Monocytes # 0.7 K/mcL (0.0-1.3); Monocytes % 8.7 %; Platelet Count 251 K/mcL (140-400); Red Blood Count 3.04 M/mcL (4.19-5.50); Red Cell Distribution Width 13.2 % (11.5-14.5); Segmented Neutrophils % 67.4 %; White Blood Count 7.4 K/mcL (4.3-11.1)
[2018-11-22 06:52] LABS: Prothrombin Time 10.8 Seconds (9.4-12.1)
[2018-11-22 06:55] LABS: Activated Partial Thrombo Time 33.5 Seconds (26.0-36.0)
[2018-11-22 06:56] LABS: Calcium 7.3 mg/dL (8.6-10.3); Potassium 4.4 mEq/L (3.5-5.1)
[2018-11-22 07:02] LABS: Troponin I 0.04 ng/mL (< 0.04)
[2018-11-22] MEDS ORDERED: *HR* HYDROmorphone (PF) 1 MG/ML SYRINGE IVP ONE (07:19)
[2018-11-22] MEDS ORDERED: 0.9 % Sodium Chloride 250 ML IVC PRN (08:30)
[2018-11-22] MEDS ORDERED: 0.9 % Sodium Chloride 1,000 ML PRIME SCH (08:30)
[2018-11-22] MEDS ORDERED: Ondansetron 4 MG/2 ML VIAL IVP PRN (08:42)
[2018-11-22] MEDS ORDERED: Naloxone 0.4 MG/ML INJ IVP PRN (08:42)
[2018-11-22] MEDS ORDERED: Acetaminophen 325 MG TABLET PO PRN (08:42)
[2018-11-22] MEDS ORDERED: Dextrose Gel 15 GM/37.5 ML TUBE PO PRN ×2 (08:48)
[2018-11-22] MEDS ORDERED: *HR* Dextrose 50 % in Water (Syg) 50 ML SYRINGE IVP PRN (08:48)
[2018-11-22] MEDS ORDERED: D5% in Water 1,000 ML IVC PRN (08:48)
[2018-11-22] MEDS ORDERED: Nitroglycerin 0.4 MG TAB.SUBL SL PRN (08:50)
[2018-11-22] MEDS: Isosorbide MONOnitrate (24 HR) 30 MG TAB.ER.24H PO SCH (11:45)
[2018-11-22] MEDS: Furosemide 40 MG TABLET PO SCH (11:45)
[2018-11-22] MEDS: Ranolazine 500 MG TAB.ER.12H PO SCH ×2 (11:46→21:29)
[2018-11-22] MEDS: Insulin LISPRO 300 UNITS/3 ML VIAL SQ SCH ×3 (11:48→21:30)
[2018-11-22] MEDS ORDERED: *HR* Heparin 10,000 UNIT/10 ML VIAL IV PRN (12:29)
[2018-11-22] MEDS ORDERED: *HR* Heparin 5,000 UNIT/ML VIAL SQ SCH (14:00)
[2018-11-22] MEDS: *HR* Heparin 5,000 UNIT/ML VIAL SQ SCH (17:56)
[2018-11-22] MEDS ORDERED: Insulin DETEMIR 100 UNIT/ML X5UNITS SQ SCH (21:00)
[2018-11-22] MEDS: Insulin DETEMIR 100 UNIT/ML X5UNITS SQ SCH (21:46)
[2018-11-23] MEDS ORDERED: dimenhyDRINATE 50 MG TABLET PO ONE (00:08)
[2018-11-23 00:36] LABS: Basophils % 0.5 %; Eosinophils # 0.3 K/mcL (0.0-0.6); Eosinophils % 4.1 %; Hematocrit 29.4 % (37.5-50.1); Hemoglobin 9.9 g/dL (12.9-16.9); Immature Granulocytes % 0.9 % (0-4); Lymphocytes % 15.8 %; Mean Corpuscular HGB Conc 33.7 g/dL (31.6-35.5); Mean Corpuscular Hemoglobin 29.8 pg (28.0-33.3); Mean Corpuscular Volume 88.6 fL (83.0-100.0); Mean Platelet Volume 8.6 fL (9.4-12.4); Monocytes # 0.6 K/mcL (0.0-1.3); Monocytes % 9.2 %; Neutrophils # 4.5 K/mcL (1.6-8.9); Platelet Count 230 K/mcL (140-400); Red Blood Count 3.32 M/mcL (4.19-5.50); Red Cell Distribution Width 13.5 % (11.5-14.5); Segmented Neutrophils % 69.5 %; White Blood Count 6.4 K/mcL (4.3-11.1)
[2018-11-23] MEDS: *HR* Heparin 5,000 UNIT/ML VIAL SQ SCH ×2 (05:10→17:01)
[2018-11-23] MEDS: Insulin LISPRO 300 UNITS/3 ML VIAL SQ SCH ×4 (09:12→20:37)
[2018-11-23] MEDS: Cholecalciferol (D-3) 1,000 UNIT (25MCG) TABLET PO SCH (09:16)
[2018-11-23] MEDS: Ranolazine 500 MG TAB.ER.12H PO SCH ×2 (09:16→20:37)
[2018-11-23] MEDS: Aspirin Enteric Coated 81 MG Tablet PO SCH (09:16)
[2018-11-23] MEDS: Isosorbide MONOnitrate (24 HR) 30 MG TAB.ER.24H PO SCH (09:16)
[2018-11-23] MEDS: Furosemide 40 MG TABLET PO SCH (09:16)
[2018-11-23 11:09] LABS: Bilirubin,Urine Negative (Negative); Blood,Urine Small (Negative); Clarity,Urine Cloudy (Clear); Color,Urine Yellow (Yellow); Glucose,Urine (UA) 250 mg/dL (Normal); Ketones,Urine Negative (Negative); Leukocyte Esterase,Urine Negative (Negative); Nitrite,Urine Negative (Negative); Protein,Urine >=1000 mg/dL (Neg-Trace); Specific Gravity,Urine 1.016 (1.010-1.025); Urobilinogen,Urine Normal (Normal)
[2018-11-23 11:11] LABS: Bacteria,Urine None Seen per hpf (None-Few); Hyaline Casts,Urine None Seen per lpf (None-Few)
[2018-11-23 11:40] LABS: RBC,Urine 0-3 per hpf (0-3); Squamous Epithelial Cell,Urine Few per lpf (None-Few)
[2018-11-23] MEDS: cefTRIAXone 1,000 MG in Water for inj. (sterile) 10 ML IVP SCH (13:26)
[2018-11-23] MEDS: Insulin DETEMIR 100 UNIT/ML X5UNITS SQ SCH (20:37)
[2018-11-24] MEDS ORDERED: *HR* HYDROcodone/Acet 7.5/325 mg TABLET PO ONE (03:01)
[2018-11-24 05:54] LABS: Hemoglobin 8.9 g/dL (12.9-16.9); Mean Corpuscular Hemoglobin 29.2 pg (28.0-33.3); Mean Corpuscular Volume 88.5 fL (83.0-100.0); Mean Platelet Volume 8.6 fL (9.4-12.4); Platelet Count 225 K/mcL (140-400); Red Blood Count 3.05 M/mcL (4.19-5.50); Red Cell Distribution Width 13.4 % (11.5-14.5); White Blood Count 6.5 K/mcL (4.3-11.1)
[2018-11-24] MEDS: *HR* Heparin 5,000 UNIT/ML VIAL SQ SCH ×3 (06:23→21:53)
[2018-11-24 06:25] LABS: Albumin/Globulin Ratio 0.9 (1.1-2.2); Bilirubin,Total 0.2 mg/dL (0.3-1.0); Calcium 7.9 mg/dL (8.6-10.3); Globulin 3.3 g/dL (2.4-3.5); Magnesium 1.6 mg/dL (1.6-2.6); Phosphorous 4.5 mg/dL (2.7-4.5); Potassium 5.2 mEq/L (3.5-5.1); Total Protein 6.3 g/dL (6.4-8.9)
[2018-11-24] MEDS ORDERED: 0.9 % Sodium Chloride 250 ML IVC PRN (06:59)
[2018-11-24] MEDS: Insulin LISPRO 300 UNITS/3 ML VIAL SQ SCH ×5 (07:10→22:00)
[2018-11-24] MEDS: Ranolazine 500 MG TAB.ER.12H PO SCH ×2 (08:21→19:44)
[2018-11-24] MEDS: Aspirin Enteric Coated 81 MG Tablet PO SCH (08:21)
[2018-11-24] MEDS: Furosemide 40 MG TABLET PO SCH (08:21)
[2018-11-24] MEDS: Cholecalciferol (D-3) 1,000 UNIT (25MCG) TABLET PO SCH (08:21)
[2018-11-24] MEDS: Isosorbide MONOnitrate (24 HR) 30 MG TAB.ER.24H PO SCH (08:21)
[2018-11-24] MEDS: cefTRIAXone 1,000 MG in Water for inj. (sterile) 10 ML IVP SCH (08:23)
[2018-11-24] MEDS: Insulin DETEMIR 100 UNIT/ML X5UNITS SQ SCH (19:44)
[2018-11-25 06:09] LABS: Basophils % 0.5 %; Eosinophils # 0.2 K/mcL (0.0-0.6); Hematocrit 28.7 % (37.5-50.1); Hemoglobin 9.5 g/dL (12.9-16.9); Immature Granulocytes % 0.5 % (0-4); Lymphocytes # 1.2 K/mcL (0.6-4.6); Lymphocytes % 20.2 %; Mean Corpuscular HGB Conc 33.1 g/dL (31.6-35.5); Mean Corpuscular Hemoglobin 30.2 pg (28.0-33.3); Mean Corpuscular Volume 91.1 fL (83.0-100.0); Mean Platelet Volume 8.3 fL (9.4-12.4); Monocytes # 0.7 K/mcL (0.0-1.3); Monocytes % 11.5 %; Neutrophils # 3.7 K/mcL (1.6-8.9); Platelet Count 221 K/mcL (140-400); Red Blood Count 3.15 M/mcL (4.19-5.50); Red Cell Distribution Width 13.4 % (11.5-14.5); Segmented Neutrophils % 64.3 %; White Blood Count 5.8 K/mcL (4.3-11.1)
[2018-11-25 06:58] VITALS: BP 153/78
[2018-11-25 07:00] LABS: Calcium 8.2 mg/dL (8.6-10.3); Potassium 5.2 mEq/L (3.5-5.1)
[2018-11-25] MEDS: Insulin LISPRO 300 UNITS/3 ML VIAL SQ SCH (07:57)
[2018-11-25] MEDS: Cholecalciferol (D-3) 1,000 UNIT (25MCG) TABLET PO SCH (07:58)
[2018-11-25] MEDS: Isosorbide MONOnitrate (24 HR) 30 MG TAB.ER.24H PO SCH (07:58)
[2018-11-25] MEDS: Furosemide 40 MG TABLET PO SCH (07:58)
[2018-11-25] MEDS: Ranolazine 500 MG TAB.ER.12H PO SCH (07:58)
[2018-11-25] MEDS: cefTRIAXone 1,000 MG in Water for inj. (sterile) 10 ML IVP SCH (07:59)
[2018-11-25] MEDS: Aspirin Enteric Coated 81 MG Tablet PO SCH (07:59)
== END 2018-11-25 09:25 | disposition home or self-care (01) ==
LOC: 2ANU 05:54 → EMEROOARM 05:54 → SUATTDRO 09:51 → 2ANU 11:22
PROVIDERS: ADMIT Internal Medicine; ATTEND Family Medicine

== ENCOUNTER 2018-11-29 18:28 | Observation (INO) ==
--- NOTE | 2018-11-29 18:51 | Emergency Department Note ---
Disposition Clinical Impression: Elevated troponin, Hyperglycemia Chest pain Qualifiers: Chest pain type: other chest pain Qualified Code(s): R07.89 - Other chest pain Disposition: Admitted As Inpatient Condition: Fair Time of Disposition: 23:49 Chest Pain HPI - General Chief Complaint: ED Chest Pain Stated Complaint: chest pain Time Seen by Provider: 11/29/18 18:32 Source: patient Limitations: no limitations - History of Present Illness HPI Narrative: 53-year-old male patient past medical history of CHF, CAD with 2 stents placed last year following with Dr. smith with [facility], chronic kidney disease on dialysis Thursday presenting today from [facility] where he experienced sudden onset left sided 9 out of 10 dull chest pain nonradiating associated with some shortness of breath and anxiety. Patient was just released from the hospital due to chest pain which was found to be noncardiac in nature. Patient states that he has esophagus problems and he knows that a large part of his chest pains are related to the states this is something very different. The patient states that he feels that his heart is beating out of his chest. He is noted to be tachycardic while in the room as well as mildly diaphoretic and appears to be extremely anxious. Patient has no other concerns or complaints this time. The patient does state that he took 2 nitroglycerin prior to arrival here in the ED without significant relief of his symptoms but denies taking aspirin. I will give aspirin here in the ED at this time. Upon my initial evaluation, my general impression is that the patient is extremely anxious but otherwise awake, alert, oriented, engaged to conversation and answering questions appropriately. There are no overt lateralizing signs, the patient is in no acute distress; their skin appears to be normal in color, they are not pale, not cyanotic, and not diaphoretic, they are sitting up in hospital bed interacting appropriately with environment. Pt complaint: chest pain Onset (ago): hour(s) (Began tonight at 5:00) Time: 17:00 Duration: constant Onset: during rest Pain Location: left chest Severity: severe Severity scale (1-10): 9 Quality: dull Pain Radiation: none Improves with: nothing Worsens with: nothing Associated symptoms: Reports: sense of impending doom, other (Shortness of breath and anxiety) Treatments prior to arrival chest pain: nitroglycerin - Related Data Home Medications Medication Instructions Recorded Confirmed Aspirin [Lo-Dose Aspirin EC] 81 mg PO DAILY 07/30/17 11/29/18 Ergocalciferol (VITAMIN D2) 50,000 unit PO WE 09/24/17 11/29/18 [Vitamin D2] Calcium Carbonate [Calcium] 600 mg PO DAILY 07/26/18 11/29/18 Isosorbide MONOnitrate [Isosorbide 30 mg PO DAILY 09/27/18 11/29/18 Mononitrate ER] Furosemide [Lasix] 40 mg PO DAILY 11/09/18 11/29/18 Lisinopril 2.5 mg PO DAILY 11/09/18 11/29/18 Nitroglycerin [Nitrostat] 0.4 mg SL Q5MIN PRN 11/09/18 11/29/18 Ranolazine [Ranexa] 1,000 mg PO BID 11/09/18 11/29/18 Fat Emulsions [Intralipid 20%] 250 ml IVPB 1700 11/23/18 11/29/18 Previous Rx's Medication Instructions Recorded Insulin Glargine [Lantus] 10 unit SQ HS #1 vial 11/19/18 Ondansetron HCl [Zofran] 4 mg PO Q8HR PRN 5 Days #15 tab 11/19/18 Pantoprazole Sodium 40 mg PO BID 30 Days #30 tablet. 11/19/18 Sucralfate [Carafate] 1 gm PO QID 30 Days #120 oral.susp 11/19/18 Meclizine [Antivert] 25 mg PO BID PRN 7 Days #14 tablet 11/25/18 Allergies Allergy/AdvReac Type Severity Reaction Status Date / Time No Known Allergies Allergy Verified 11/29/18 21:48 Review of Systems: *See History of Present Illness for more detail Constitutional: Denies: fever, chills Cardiovascular: Admits: chest pain Respiratory: Admits: dyspnea, denies: cough, hemoptysis Gastrointestinal: Denies: abdominal pain, nausea, vomiting, diarrhea, constipation, hematemesis, melena, hematochezia Genitourinary: Denies: hematuria Musculoskeletal: Denies: back pain, neck pain Neurological: Admits to numbness and paresthesias in bilateral upper extremities Denies: headache, weakness, lightheadedness/dizziness, difficulty with ambulation. Endocrine: Denies: fatigue All systems ED: reviewed and negative except as stated. Review of Systems: As Per HPI Chest Pain PMH - Past Medical History Medical history: Reports: dialysis Surgical history: Reports: cholecystectomy, vascular surgery, other (Right thoracoscopy with pleurectomy and chemical pleurodesis) Psychiatric history: Reports: no psych history - Social History Smoking Status: Never smoker Alcohol use: Reports: none Drug use: Reports: none Physical Exam Constitutional: No acute distress, [id number], engaged to conversation, speech is fluid, answers questions appropriately Neuro: GCS 15, no overt focal neurological deficits Head: Atraumatic, normocephalic Eyes: Pupils equal, round and reactive to light, no scleral icterus, no conjunctival injection Neck: Trachea midline without deviation. Anterior neck is supple without swelling. *Chest: Symmetric chest wall rise *Heart: Cardiac rate is tachycardic with regular rhythm. S1 and S2 , no S3 or S4 appreciated, no murmurs, gallops, rubs, or clicks. *Lungs: Lungs are clear to auscultation bilaterally, without accessory muscle use or prolonged expiratory phase. No wheezes, rhonchi or stridor appreciated. Abdomen: Abdomen is flat, soft to palpation, normal bowel sounds. No abdominal bruit auscultated. Non-distended, non-rigid, no organomegaly, no ascites appreciated. No pulsatile mass, no tenderness or guarding to palpation in all four quadrants, no rebound Extremities: Normal capillary refill without evidence of pedal edema, joint swelling or erythema. Pulses/motor intact in all 4 extremities. Psychiatric exam: Patient appears very anxious Integumentary: Mild diaphoresis. Skin is otherwise warm, dry, intact, normal color. No rash, cyanosis, erythema, or pallor - General Limitations: no limitations General appearance: alert, in no apparent distress Course Course Narrative: EKG/old EKG, chest x-ray, troponin, BNP, ED bedside cardiac ultrasound 1 mg Ativan 3 and a 24 mg aspirin Vital Signs Temperature 98.3 F 11/29/18 18:35 Pulse Rate 127 11/29/18 18:35 Respiratory Rate 20 11/29/18 18:35 Blood Pressure 185/88 11/29/18 18:35 O2 Sat by Pulse Oximetry 99 11/29/18 18:35 Temperature 98.3 F 11/29/18 18:35 Pulse Rate 104 11/29/18 21:30 Respiratory Rate 20 11/29/18 21:30 Blood Pressure 156/48 11/29/18 21:30 O2 Sat by Pulse Oximetry 97 11/29/18 21:51 Oxygen Delivery Oxygen Delivery Room Air Chest Pain - MDM Narrative Medical decision making narrative: The patients EKG, imaging, and laboratory results show elevated troponin, BNP, elevated creatinine. Evaluation results were discussed with the patient at bedside. Patient was given time to ask questions and state concerns. The patient states that they have had significant relief of their symptoms with our management here in the ED. The patient will be admitted to the hospitalist medicine service for further evaluation and management of chest pain with ACS rule out for trended troponins. The patient verbalizes their understanding and agreement with this plan and is hemodynamically stable at the time of admission. - Lab Data Lab results reviewed: Yes I reviewed the patient's lab results. Result diagrams: 11/29/18 18:55 11/29/18 18:55 Lab Results 11/29/18 11/29/18 11/29/18 Range/Units 18:55 18:55 18:55 WBC 7.0 (4.3-11.1) K/mcL RBC 3.22 L (4.19-5.50) M/mcL Hgb 9.6 L (12.9-16.9) g/dL Hct 28.7 L (37.5-50.1) % MCV 89.1 (83.0-100.0) fL MCH 29.8 (28.0-33.3) pg MCHC 33.4 (31.6-35.5) g/dL RDW 13.0 (11.5-14.5) % Plt Count 290 (140-400) K/mcL MPV 8.7 L (9.4-12.4) fL Immature Gran % 0.4 (0-4) % Seg Neutrophils % 72.5 % Lymphocytes % 15.1 % Monocytes % 10.3 % Eosinophils % 1.3 % Basophils % 0.4 % Neutrophils # 5.1 (1.6-8.9) K/mcL Lymphocytes # 1.1 (0.6-4.6) K/mcL Monocytes # 0.7 (0.0-1.3) K/mcL Eosinophils # 0.1 (0.0-0.6) K/mcL Basophils # 0.0 (0.0-0.2) K/mcL Sodium 136 (136-145) mEq/L Potassium 4.0 (3.5-5.1) mEq/L Chloride 96 L (98-107) mEq/L Carbon Dioxide 27 (23-29) mEq/L BUN 29 H (6-20) mg/dL Creatinine 4.31 H (0.70-1.30) mg/dL Est GFR ( Amer) 18 L (> 60) Est GFR (Non-Af Amer) 14 L (> 60) BUN/Creatinine Ratio 7 (6-26) Glucose 321 H (70-105) mg/dL Calculated Osmolality 300 (280-300) Calcium 8.0 L (8.6-10.3) mg/dL Troponin I 0.05 H* (< 0.04) ng/mL B-Natriuretic Peptide 356 H (Less than 100) pg/mL - Radiology Data Radiology results reviewed: Yes I reviewed the patient's radiology results. Chest X-Ray 11/29/18 18:36 IMPRESSION: Stable right basilar opacity, which reflects some combination of pleural and parenchymal disease, unchanged when compared to the previous exam. Overall, no change when compared to the previous exam from 11/22/2018. D/ / Mitchell Flores MD / Mitchell Flores MD Interpreting Provider: Mitchell Flores MD Heart Score - Score History: Moderately Suspicious EKG: Normal Age: 45-65 Risk Factors: Equal/Greater than 3 risk factor or history of atherosclerotic disease Troponin: Less than normal limit HEART Score Total: 4
[2018-11-29] MEDS ORDERED: *HR* LORazepam 1 MG TABLET PO ONE (18:54)
[2018-11-29] MEDS ORDERED: Aspirin 81 MG TAB.CHEW PO STA (18:54)
[2018-11-29] MEDS ORDERED: Aspirin 81 MG TAB.CHEW PO SCH (19:00)
[2018-11-29 19:18] LABS: Basophils % 0.4 %; Eosinophils # 0.1 K/mcL (0.0-0.6); Eosinophils % 1.3 %; Hematocrit 28.7 % (37.5-50.1); Hemoglobin 9.6 g/dL (12.9-16.9); Immature Granulocytes % 0.4 % (0-4); Lymphocytes # 1.1 K/mcL (0.6-4.6); Lymphocytes % 15.1 %; Mean Corpuscular HGB Conc 33.4 g/dL (31.6-35.5); Mean Corpuscular Hemoglobin 29.8 pg (28.0-33.3); Mean Corpuscular Volume 89.1 fL (83.0-100.0); Mean Platelet Volume 8.7 fL (9.4-12.4); Monocytes # 0.7 K/mcL (0.0-1.3); Monocytes % 10.3 %; Neutrophils # 5.1 K/mcL (1.6-8.9); Platelet Count 290 K/mcL (140-400); Red Blood Count 3.22 M/mcL (4.19-5.50); Segmented Neutrophils % 72.5 %
[2018-11-29 19:44] LABS: Troponin I 0.05 ng/mL (< 0.04)
--- NOTE | 2018-11-29 21:32 | Emergency Department Note ---
Disposition Clinical Impression: Elevated troponin, Chest pain, Hyperglycemia Disposition: Admitted As Inpatient Referrals: Fausto Jacques MD [Primary Care Provider] - Forms: ED Satisfaction Letter Time of Disposition: 21:34 Chest Pain HPI - General Chief Complaint: ED Chest Pain Stated Complaint: chest pain Time Seen by Provider: 11/29/18 18:32 Source: patient Limitations: no limitations Vital Signs Reviewed: Yes Nursing Notes Reviewed: Yes - History of Present Illness Pain Location: left chest Severity scale (1-10): 9 Quality: dull Improves with: nothing Worsens with: nothing Associated symptoms: Reports: sense of impending doom, other (Shortness of sudhir ath and anxiety) - Related Data Home Medications Medication Instructions Recorded Confirmed Aspirin [Lo-Dose Aspirin EC] 81 mg PO DAILY 07/30/17 11/23/18 Ergocalciferol (VITAMIN D2) 50,000 unit PO WE 09/24/17 11/23/18 [Vitamin D2] Calcium Carbonate [Calcium] 600 mg PO DAILY 07/26/18 11/23/18 Isosorbide MONOnitrate [Isosorbide 30 mg PO DAILY 09/27/18 11/23/18 Mononitrate ER] Furosemide [Lasix] 40 mg PO DAILY 11/09/18 11/23/18 Lisinopril 2.5 mg PO DAILY 11/09/18 11/23/18 Nitroglycerin [Nitrostat] 0.4 mg SL Q5MIN PRN 11/09/18 11/23/18 Ranolazine [Ranexa] 1,000 mg PO BID 11/09/18 11/23/18 Fat Emulsions [Intralipid 20%] 250 ml IVPB 1700 11/23/18 11/23/18 Previous Rx's Medication Instructions Recorded Insulin Glargine [Lantus] 10 unit SQ HS #1 vial 11/19/18 Ondansetron HCl [Zofran] 4 mg PO Q8HR PRN 5 Days #15 tab 11/19/18 Pantoprazole Sodium 40 mg PO BID 30 Days #30 tablet.dr 11/19/18 Sucralfate [Carafate] 1 gm PO QID 30 Days #120 oral.susp 11/19/18 Meclizine [Antivert] 25 mg PO BID PRN 7 Days #14 tablet 11/25/18 Allergies Allergy/AdvReac Type Severity Reaction Status Date / Time No Known Allergies Allergy Verified 11/17/18 06:56 Chest Pain PMH - Past Medical History Medical history: Reports: dialysis Surgical history: Reports: cholecystectomy, vascular surgery, other (Right thoracoscopy with pleurectomy and chemical pleurodesis) Psychiatric history: Reports: no psych history - Social History Smoking Status: Never smoker Alcohol use: Reports: none Drug use: Reports: none Physical Exam - General Limitations: no limitations General appearance: alert, in no apparent distress Course Vital Signs Temperature 98.3 F 11/29/18 18:35 Pulse Rate 127 11/29/18 18:35 Respiratory Rate 20 11/29/18 18:35 Blood Pressure 185/88 11/29/18 18:35 O2 Sat by Pulse Oximetry 99 11/29/18 18:35 Temperature 98.3 F 11/29/18 18:35 Pulse Rate 109 11/29/18 20:23 Respiratory Rate 18 11/29/18 20:23 Blood Pressure 155/118 11/29/18 20:23 O2 Sat by Pulse Oximetry 97 11/29/18 20:23 Oxygen Delivery Oxygen Delivery Room Air Chest Pain - Lab Data Result diagrams: 11/29/18 18:55 11/29/18 18:55 Lab Results 11/29/18 11/29/18 11/29/18 Range/Units 18:55 18:55 18:55 WBC 7.0 (4.3-11.1) K/mcL RBC 3.22 L (4.19-5.50) M/mcL Hgb 9.6 L (12.9-16.9) g/dL Hct 28.7 L (37.5-50.1) % MCV 89.1 (83.0-100.0) fL MCH 29.8 (28.0-33.3) pg MCHC 33.4 (31.6-35.5) g/dL RDW 13.0 (11.5-14.5) % Plt Count 290 (140-400) K/mcL MPV 8.7 L (9.4-12.4) fL Immature Gran % 0.4 (0-4) % Seg Neutrophils % 72.5 % Lymphocytes % 15.1 % Monocytes % 10.3 % Eosinophils % 1.3 % Basophils % 0.4 % Neutrophils # 5.1 (1.6-8.9) K/mcL Lymphocytes # 1.1 (0.6-4.6) K/mcL Monocytes # 0.7 (0.0-1.3) K/mcL Eosinophils # 0.1 (0.0-0.6) K/mcL Basophils # 0.0 (0.0-0.2) K/mcL Sodium 136 (136-145) mEq/L Potassium 4.0 (3.5-5.1) mEq/L Chloride 96 L (98-107) mEq/L Carbon Dioxide 27 (23-29) mEq/L BUN 29 H (6-20) mg/dL Creatinine 4.31 H (0.70-1.30) mg/dL Est GFR ( Amer) 18 L (> 60) Est GFR (Non-Af Amer) 14 L (> 60) BUN/Creatinine Ratio 7 (6-26) Glucose 321 H (70-105) mg/dL Calculated Osmolality 300 (280-300) Calcium 8.0 L (8.6-10.3) mg/dL Troponin I 0.05 H* (< 0.04) ng/mL B-Natriuretic Peptide 356 H (Less than 100) pg/mL Attestation Statement - Attestation Attestation: I have seen this patient with the resident physician, I have personally evaluated this patient. I had reviewed the chart and document dictation by the resident physician and aM in agreement with the information documented by the resident physician. Please see documentation by the resident physician for complete chart including past medical history, family medical history, review of systems, current history and physical and laboratory and imaging studies. I was present for all procedures, provided direct supervision for all procedures, was present for the entirety of all procedures and provided direct guidance during the procedures. Please see documentation by the resident physician for any procedures performed. I have reviewed all interpretations of EKGs, and reviewed all EKGs performed on patient's as well. I have also reviewed reports of imaging as provided by radiology. Patient presented emergency department with chest pain, after dialysis, he states started during dialysis he took nitroglycerin during dialysis does not report any improvement of his pain reports it feels like his coronary artery disease history. EKG, was normal sinus rhythm with no evidence of acute change from prior EKG chronic abnormality noted but no acute ST elevation or ST depression or significant acute T-wave inversions. Chest x-ray as interpreted by radiology showed no acute findings. Basic laboratory studies were consistent with his history of dialysis electrolytes are within acceptable limits, creatinine of 4.3, troponin of 0.05, blood sugar 321, elevated BNP. CBC with chronic stable anemia. Reviewing his chart he did have a recent coronary angiogram, which showed mu ltivessel disease, which was unamenable to stenting, also showed poor vasculature for bypass, continued aggressive medical management, secondary to severe coronary artery disease history of chest pain and symptoms consistent with his prior coronary artery disease he will be admitted to the hospital for further evaluation and management of chest pain hyperglycemia borderline troponin elevation chronic renal failure.
--- NOTE | 2018-11-29 22:38 | Internal Med History&Physical ---
Date of Encounter: 11/29/18 Time of Encounter: 22:00 Internal Medicine - H&P: HPI History of present illness: Mr. Hernandez is a 53 year old male with past medical history of congestive heart failure, coronary artery disease status post stent placement. With [facility] as an outpatient dialyzed Thursday and was just discharged from the hospital after he was evaluated for epigastric and chest pain. Patient has a history of hiatal hernia and is currently on PPI and Carafate. Chest pain workup was negative. Patient was advised to follow-up with GI for hiatal hernia. Patient presented today with palpitation that started after he finished his dialysis. The patient stated that he start feeling that his heart pounding and he become diaphoretic and extremely injected anxious so he took nitroglycerin and did not improve his symptoms significantly the patient was evaluated by the ER staff and his EKG revealed no significant ST-T wave changes and abnormal troponin which is chronically elevated. 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 Type II Diabetic,severe esophagitis, hiatal hernia Psychiatric history: no psych history - Past Surgical History Surgical History: cholecystectomy, vascular surgery, other (Right thoracoscopy with pleurectomy and chemical pleurodesis) Additional surgical history: Prostate surgery (TURP), left arm av shunt. Right lung surgery x1 month ago. Hernia surgery 10 days ago - Social History Smoking Status: Never smoker Smokeless Tobacco Status: No Alcohol use: none Drug use: none - Family History Mother Adopted: No Living Status: Hx Family Cardiac Disorders: Yes (mother stroke) Hx Family Respiratory Disorders: Yes (Dad asthma copd) Hx Family Cancer: Yes (prostate, pancreatic) Hx Family GI Disorders: No Hx Family Endocrine Disorder: Yes (DM) Hx Family Neuromuscular Disorders: No Hx Family Neurologic Disorders: No Hx Family HEENT Disorders: No Hx Family Autoimmune Disorders: No Father Adopted: No Family Member Ethnicity: Non- Living Status: Hx Family Cardiac Disorders: Yes (father, stents) Hx Family Respiratory Disorders: Yes (father COPD) Hx Family Cancer: Yes (Father prostate cancer uncle colon) Hx Family GI Disorders: No Hx Family Endocrine Disorder: Yes (dM) Hx Family Neuromuscular Disorders: No Hx Family Neurologic Disorders: No Hx Family HEENT Disorders: No Hx Family Autoimmune Disorders: No Internal Medicine - H&P: Meds Aspirin [Lo-Dose Aspirin EC] 81 mg PO DAILY 07/30/17 [History] Calcium Carbonate [Calcium] 600 mg PO QAM 07/26/18 [History] Nitroglycerin [Nitrostat] 0.4 mg SL Q5MIN PRN 11/09/18 [History] Ranolazine [Ranexa] 1,000 mg PO BID 11/09/18 [History] Ondansetron HCl [Zofran] 4 mg PO Q8HR PRN 5 Days #15 tab 11/19/18 [Rx] Dexlansoprazole [Dexilant] 30 mg PO DAILY 11/30/18 [History] Insulin Glargine,Hum.rec.anlog [Basaglar Kwikpen U-100] 10 unit SQ HS 11/30/18 [History] Meclizine [Antivert] 12.5 mg PO BID PRN 11/30/18 [History] Sucralfate [Carafate] 1 gm PO QID 11/30/18 [History] Atorvastatin [Lipitor] 80 mg PO HS #30 tablet 12/15/18 [Rx] Isosorbide MONOnitrate (24 HR) [Imdur] 30 mg PO DAILY #30 tab.er.24h 12/15/18 [Rx] Metoprolol [Lopressor] 25 mg PO BID #60 tablet 12/15/18 [Rx] Phenazopyridine HCl [Pyridium] 200 mg PO TIDAC #12 tab 12/15/18 [Rx] Allergy/AdvReac Type Severity Reaction Status Date / Time No Known Allergies Allergy Verified 12/07/18 09:54 All Systems PM: A 10-system review of systems was performed and is negative for pertinent findings except as documented above in the HPI. - Constitutional Vitals: Temp Pulse Resp BP Pulse Ox 98.3 F 104 20 156/48 97 11/29/18 18:35 11/29/18 21:30 11/29/18 21:30 11/29/18 21:30 11/29/18 21:51 Exam: General: A & O 3, In no acute distress HENNT: PERRLA. Head atraumatic and makes supple CVS S1 and S2 regular, no murmur RS: Clear to air entry bilaterally, no wheeze, no crackles Abdomen: Soft and nontender. Bowel sounds normal 4 Extremities: No cyanosis, clubbing, and edema Neurology: Cranial 2 through 12 normal. Motor strength 5/5 bilaterally. Sensation intact Internal Med - H&P Results - Labs CBC & Chem 7: 11/30/18 01:27 11/30/18 01:27 Labs: Short CBC 11/29/18 Range/Units 18:55 WBC 7.0 (4.3-11.1) K/mcL Hgb 9.6 L (12.9-16.9) g/dL Hct 28.7 L (37.5-50.1) % Plt Count 290 (140-400) K/mcL Neutrophils # 5.1 (1.6-8.9) K/mcL BMP 11/29/18 18:55 Sodium 136 Potassium 4.0 Chloride 96 L Carbon Dioxide 27 BUN 29 H Creatinine 4.31 H Glucose 321 H Calcium 8.0 L Cardiac Enzymes 11/29/18 Range/Units 18:55 Troponin I 0.05 H* (< 0.04) ng/mL - Impressions ITS Impressions Chest X-Ray 11/29/18 18:36 IMPRESSION: Stable right basilar opacity, which reflects some combination of pleural and parenchymal disease, unchanged when compared to the previous exam. Overall, no change when compared to the previous exam from 11/22/2018. D/ / Mitchell Flores MD / Mitchell Flores MD Interpreting Provider: Mitchell Flores MD - Assessment and Plan (1) Elevated troponin Status: Chronic Assessment and plan: Discussed with the ER staff cardiology has seen the patient out week ago and stated that patient is s/p C in 05/2018 with severe 3V CAD, and he is poor candidate for any environmental intervention only medical treatment was recommended. Also it was mentioned that most of his symptoms most likely secondary to esophagitis and large hiatal hernia as suggested on the upper endoscopy 3 weeks ago. Troponin mildly elevated on chronic basis and ejection fraction and 2019 revealed LVEF 50-55%. Normal LV chamber size, wall thickness and low normal function. Cardiology signed off the case during the patient last admission a week ago. ER staff expressed being uncomfortable discharging the patient and they wanted the patient to be admitted for observation. We will trend cardiac enzymes and repeat EKG in a.m. there is no need to consult cardiology at this point since a full detailed recommendation was provided a week ago. (2) Diabetes Status: Chronic Assessment and plan: We will start insulin sliding scale with coverage Qualifiers: Diabetes mellitus type: type 2 Diabetes mellitus terminal operations manager insulin use: without terminal operations manager use Diabetes mellitus complication status: with kidney complications Diabetes mellitus complication detail: with chronic kidney disease Chronic kidney disease stage: on chronic dialysis Qualified Code(s): E11.22 - Type 2 diabetes mellitus with diabetic chronic kidney disease; N18.6 - End stage renal disease; Z99.2 - Dependence on renal dialysis (3) Anemia Status: Chronic Qualifiers: Anemia type: unspecified type Qualified Code(s): D64.9 - Anemia, unspecified (4) Calciphylaxis Status: Chronic Assessment and plan: Nephrology was consulted (5) ESRD (end stage renal disease) on dialysis Status: Chronic Assessment and plan: We will consult Nephrology (6) Noncompliance with renal dialysis Status: Chronic - Time Spent With Patient Total time spent is greater than 50% in coordination of care (as documented) at patient's floor/unit and/or counseling patient:
[2018-11-30] MEDS ORDERED: Ondansetron 4 MG/2 ML VIAL IVP ONE (00:05)
[2018-11-30] MEDS ORDERED: Nitroglycerin 0.4 MG TAB.SUBL SL PRN (00:37)
[2018-11-30] MEDS ORDERED: Acetaminophen 325 MG TABLET PO PRN (01:33)
[2018-11-30] MEDS ORDERED: Naloxone 0.4 MG/ML INJ IVP PRN (01:33)
[2018-11-30] MEDS ORDERED: Ondansetron 4 MG/2 ML VIAL IVP PRN (01:33)
[2018-11-30] MEDS ORDERED: Ondansetron ODT 4 MG TAB.RAPDIS PO PRN (01:42)
[2018-11-30 01:54] LABS: Basophils % 0.5 %; Eosinophils # 0.2 K/mcL (0.0-0.6); Eosinophils % 2.6 %; Hematocrit 26.6 % (37.5-50.1); Hemoglobin 8.8 g/dL (12.9-16.9); Immature Granulocytes % 0.3 % (0-4); Lymphocytes % 15.3 %; Mean Corpuscular HGB Conc 33.1 g/dL (31.6-35.5); Mean Corpuscular Volume 90.8 fL (83.0-100.0); Mean Platelet Volume 8.6 fL (9.4-12.4); Monocytes # 0.9 K/mcL (0.0-1.3); Monocytes % 13.2 %; Neutrophils # 4.5 K/mcL (1.6-8.9); Platelet Count 256 K/mcL (140-400); Red Blood Count 2.93 M/mcL (4.19-5.50); Red Cell Distribution Width 13.2 % (11.5-14.5); Segmented Neutrophils % 68.1 %; White Blood Count 6.7 K/mcL (4.3-11.1)
[2018-11-30 02:06] LABS: Albumin/Globulin Ratio 0.9 (1.1-2.2); Bilirubin,Total 0.3 mg/dL (0.3-1.0); Calcium 7.5 mg/dL (8.6-10.3); Chol/HDL Ratio 4.5 (0-4.9); Globulin 3.3 g/dL (2.4-3.5); Magnesium 1.5 mg/dL (1.6-2.6); Phosphorous 3.9 mg/dL (2.7-4.5); Potassium 4.2 mEq/L (3.5-5.1); Total Protein 6.3 g/dL (6.4-8.9)
[2018-11-30 02:08] LABS: Prothrombin Time 11.5 Seconds (9.4-12.1)
[2018-11-30 02:11] LABS: Activated Partial Thrombo Time 33.9 Seconds (26.0-36.0)
[2018-11-30] MEDS ORDERED: *HR* Metoprolol 5 MG/5 ML VIAL IVP ONE (05:41)
[2018-11-30] MEDS ORDERED: D5% in Water 1,000 ML IVC PRN (07:39)
[2018-11-30] MEDS ORDERED: *HR* Dextrose 50 % in Water (Syg) 50 ML SYRINGE IVP PRN (07:39)
[2018-11-30] MEDS ORDERED: Dextrose Gel 15 GM/37.5 ML TUBE PO PRN ×2 (07:39)
[2018-11-30] MEDS ORDERED: Isosorbide MONOnitrate (24 HR) 30 MG TAB.ER.24H PO SCH (09:00)
[2018-11-30] MEDS ORDERED: Furosemide 40 MG TABLET PO SCH (09:00)
[2018-11-30] MEDS ORDERED: Ranolazine 500 MG TAB.ER.12H PO SCH (09:00)
[2018-11-30] MEDS ORDERED: Aspirin Enteric Coated 81 MG Tablet PO SCH (09:00)
[2018-11-30 09:32] LABS: Bilirubin,Urine Negative (Negative); Blood,Urine Moderate (Negative); Clarity,Urine Turbid (Clear); Color,Urine Yellow (Yellow); Glucose,Urine (UA) 250 mg/dL (Normal); Ketones,Urine Negative (Negative); Leukocyte Esterase,Urine Moderate (Negative); Nitrite,Urine Negative (Negative); Protein,Urine >=300 mg/dL (Neg-Trace); Specific Gravity,Urine 1.017 (1.010-1.025); Urobilinogen,Urine Normal (Normal)
[2018-11-30 09:34] LABS: Bacteria,Urine None Seen per hpf (None-Few); Hyaline Casts,Urine None Seen per lpf (None-Few); RBC,Urine 50-100 per hpf (0-3); Squamous Epithelial Cell,Urine None Seen per lpf (None-Few); WBC,Urine TNTC per hpf (0-3)
[2018-11-30 11:17] VITALS: BP 182/83
--- NOTE | 2018-11-30 13:13 | Event Note ---
Date of Encounter: 11/30/18 Time of Encounter: 13:11 She was seen and examined at bedside today. Patient was recently just from the hospital for the chest pain. Cardiology consulted at that time and did not recommend any further workup. Patient had dialysis yesterday on Thursday and he complained of chest pain and diaphoresis after dialysis. Patient came to the emergency department. Patient's EKG was with out any acute changes. Troponin was 0.05 which appears his baseline. Patient troponin went up after first one 0.07. Patient next Troponin was 0.07 as well. Patient is complaining of on and off intermittent chest pain. Patient has a history of hiatal hernia and in the past was advised to follow-up with GI. Patient has not followed up with GI yet. Continue to monitor patient. Will place nephrology consult for dialysis tomorrow. Anticipate discharge tomorrow.
--- NOTE | 2018-11-30 15:10 | Discharge Summary ---
- NOTES TO OUTPATIENT PROVIDER Notes to Outpatient Provider: Patient was admitted due to epigastric and chest pain. Upon admission patient has elevated troponin which appears to be his baseline. Patient has a history of hiatal hernia and presents to follow up with GI outpatient. Pt needs to follow up with PCP within a week. Estimated PT Needs at Discharge: None Date of Encounter: 11/30/18 Time of Encounter: 15:07 - Discharge Diagnosis (1) Diabetes Priority: Secondary Status: Chronic Qualifiers: Diabetes mellitus type: type 2 Diabetes mellitus assisted insulin use: without assisted use Diabetes mellitus complication status: with kidney complications Diabetes mellitus complication detail: with chronic kidney disease Chronic kidney disease stage: on chronic dialysis Qualified Code(s): E11.22 - Type 2 diabetes mellitus with diabetic chronic kidney disease; N18.6 - End stage renal disease; Z99.2 - Dependence on renal dialysis (2) Calciphylaxis Priority: Secondary Status: Chronic (3) Anemia Priority: Secondary Status: Chronic Qualifiers: Anemia type: unspecified type Qualified Code(s): D64.9 - Anemia, unspecified (4) Elevated troponin Priority: Primary Status: Chronic (5) ESRD (end stage renal disease) on dialysis Priority: Secondary Status: Chronic (6) Noncompliance with renal dialysis Priority: Secondary Status: Chronic Hospital course: Mr. Hernandez is a 53 year old male is admitted overnight due to acute chest pain and epigastric pain. Patient has a history of hiatal hernia and is currently on Carafate and PPI. Upon presentation patient's troponin was elevated. Patient was admitted for 23 observation. Patient troponin elevated at 0.07 and it stabilized at that level. Patient was recently hospitalized 3 days ago and detailed cardiology workup was done. Cardiology did not recommend any aggressive intervention. Patient needs to follow his medical therapy for his anginal symptoms. Patient also needs to follow up with GI for hiatal hernia. Patient discharged home. Follow-up with primary care provider within one week. Follow-up with cardiology outpatient. Patient to do dialysis tomorrow at his usual outpatient dialysis center Discharge discussed with: patient, nurse, social work, case management - Time Spent with Patient Total time spent providing and/or coordinating discharge services: 35 Time spent: Greater than 30 minutes, D/C greater than 8 hours after Admission - Discharge Medications Prescriptions: Continued Aspirin [Lo-Dose Aspirin EC] 81 mg PO DAILY Calcium Carbonate [Calcium] 600 mg PO QAM Ranolazine [Ranexa] 1,000 mg PO BID Nitroglycerin [Nitrostat] 0.4 mg SL Q5MIN PRN PRN Reason: Chest Pain Ondansetron HCl [Zofran] 4 mg PO Q8HR PRN 5 Days #15 tab PRN Reason: Nausea And Vomiting Dexlansoprazole [Dexilant] 30 mg PO DAILY Insulin Glargine,Hum.rec.anlog [Basaglar Kwikpen U-100] 10 unit SQ HS Meclizine [Antivert] 12.5 mg PO BID PRN PRN Reason: DIZZINESS/NAUSEA Sucralfate [Carafate] 1 gm PO QID Home Medications: Aspirin [Lo-Dose Aspirin EC] 81 mg PO DAILY 07/30/17 [History] Calcium Carbonate [Calcium] 600 mg PO QAM 07/26/18 [History] Nitroglycerin [Nitrostat] 0.4 mg SL Q5MIN PRN 11/09/18 [History] Ranolazine [Ranexa] 1,000 mg PO BID 11/09/18 [History] Ondansetron HCl [Zofran] 4 mg PO Q8HR PRN 5 Days #15 tab 11/19/18 [Rx] Dexlansoprazole [Dexilant] 30 mg PO DAILY 11/30/18 [History] Insulin Glargine,Hum.rec.anlog [Basaglar Kwikpen U-100] 10 unit SQ HS 11/30/18 [History] Meclizine [Antivert] 12.5 mg PO BID PRN 11/30/18 [History] Sucralfate [Carafate] 1 gm PO QID 11/30/18 [History] Allergies/Adverse Reactions: Allergy/AdvReac Type Severity Reaction Status Date / Time No Known Allergies Allergy Verified 11/30/18 08:09 Date of admission: 11/29/18 22:26 Primary care physician: Fausto Jacques MD Consults: 11/30/18 09:30 Consult to Physical Therapy [CONS] Routine Comment: Evaluate, develop and implement POC Reason for Consult: weakness Does patient have active BEDREST order?: No Is patient medically & hemodynamically stable?: Yes 11/30/18 09:32 Consult to Occupational Therapy [CONS] Routine Comment: Evaluate, develop and implement POC Reason for Consult: weakness Does patient have active BEDREST order?: No Is patient medically & hemodynamically stable?: Yes 11/30/18 13:13 Consult to Nephrology [CONS] Stat Consulting Provider: [facility] Mary Jo/MARGO/MAGDALENA/JUSTICE Reason for Consult: ESRD on Dialysis Call Completed: Yes Discharging clinician: Lavelle Wolff - Constitutional Vitals: Temp Pulse Resp BP Pulse Ox 98.7 F 88 18 182/83 96 11/30/18 11:10 11/30/18 11:10 11/30/18 11:10 11/30/18 11:10 11/30/18 11:10 General appearance: Present: cooperative, A&O X 3 Exam: General: A & O 3, In no acute distress HENNT: PERRLA. Head atraumatic and makes supple CVS S1 and S2 regular, no murmur RS: Clear to air entry bilaterally, no wheeze, no crackles Abdomen: Soft and nontender. Bowel sounds normal 4 Extremities: No cyanosis, clubbing, and edema Neurology: Cranial 2 through 12 normal. Motor strength 5/5 bilaterally. Sensation intact - Patient Status Disposition: Home, Self-Care Condition: Fair Functional capacity at discharge: independent ambulation Overall status at discharge: patient is progressing back to baseline - Discharge Instructions Follow Up With: Fausto Jacques MD [Primary Care Provider] - - Diet and Activity Activity: increase activity as tolerated Diet: diabetic diet, low salt diet, other (Renal diet)
[2018-11-30] MEDS ORDERED: Fat Emulsions 20% 250 ML IVPB SCH (17:00)
[2018-11-30] MEDS ORDERED: *HR* Heparin 5,000 UNIT/ML VIAL SQ SCH (18:00)
[2018-11-30] MEDS ORDERED: Insulin DETEMIR 100 UNIT/ML X5UNITS SQ SCH (21:00)
--- NOTE | 2018-12-01 08:47 | Electrocardiograph Report ---
[facility] Test Date: 2018-11-29 Pat Name: Abelardo Hernandez Department: EXAM9 Room: 2A14 Gender: M [employer] Maker: : 1965 Requested By: Joo Bales Order Number: [id number] Reading MD: Toro Hamilton Measurements Intervals [place] Rate: 120 P: 66 PA: 145 QRS: 47 QRSD: 91 T: 111 QT: 331 QTc: 468 Interpretive Statements Sinus tachycardia Probable inferior infarct, old Lateral leads are also involved Electronically Signed On 12-01-2018 8:45:40 EDT by Toro Hamilton
[2018-12-01] MEDS ORDERED: Ergocalciferol (VIT D2) 50,000 UNIT (1.25MG) CAP PO SCH (09:00)
== END 2018-11-30 16:03 | disposition home or self-care (01) ==
LOC: EMEROOARM 18:28 → 2ANU 18:28
PROVIDERS: ADMIT Internal Medicine Nephrology; ATTEND Internal Medicine Nephrology

== ENCOUNTER 2018-12-13 01:51 | Observation (INO) ==
--- NOTE | 2018-12-13 02:07 | Emergency Department Note ---
General Adult HPI - General Stated complaint: Lt Side numbness Time Seen by Provider: 12/13/18 01:52 - Related Data Home Medications Medication Instructions Recorded Confirmed Aspirin [Lo-Dose Aspirin EC] 81 mg PO DAILY 07/30/17 11/30/18 Calcium Carbonate [Calcium] 600 mg PO QAM 07/26/18 11/30/18 Nitroglycerin [Nitrostat] 0.4 mg SL Q5MIN PRN 11/09/18 11/30/18 Ranolazine [Ranexa] 1,000 mg PO BID 11/09/18 11/30/18 Dexlansoprazole [Dexilant] 30 mg PO DAILY 11/30/18 11/30/18 Insulin Glargine,Hum.rec.anlog 10 unit SQ HS 11/30/18 11/30/18 [Basaglar Kwikpen U-100] Meclizine [Antivert] 12.5 mg PO BID PRN 11/30/18 11/30/18 Sucralfate [Carafate] 1 gm PO QID 11/30/18 11/30/18 Previous Rx's Medication Instructions Recorded Ondansetron HCl [Zofran] 4 mg PO Q8HR PRN 5 Days #15 tab 11/19/18 Doxycycline 100 mg PO BID #14 capsule 12/07/18 Allergies Allergy/AdvReac Type Severity Reaction Status Date / Time No Known Allergies Allergy Verified 12/07/18 09:54 Past Medical History - Past Medical History Medical history: Reports: dialysis, hyperlipidemia, hypertension Surgical history: Reports: angioplasty/stent Psychiatric history: Reports: no psych history - Social History Smoking Status: Never smoker Smokeless Tobacco Status: No Alcohol use: Reports: none Drug use: Reports: none
--- NOTE | 2018-12-13 02:25 | Emergency Department Note ---
Disposition Clinical Impression: Paresthesia and pain of left extremity, Tingling of left arm and left side of face, Left leg paresthesias Chest pain Qualifiers: Chest pain type: unspecified Qualified Code(s): R07.9 - Chest pain, unspecified Disposition: Admitted As Inpatient Condition: Fair Time of Disposition: 04:03 Neuro HPI - General Chief Complaint: ED Weakness Stated Complaint: Lt Side numbness Time Seen by Provider: 12/13/18 01:52 Source: EMS Mode of arrival: ambulatory Limitations: no limitations Nursing Notes Reviewed: Yes Vital Signs Reviewed: Yes - History of Present Illness HPI Narrative: Patient is a 53-year-old male presenting with acute onset left-sided change in sensation. Patient also complaint of chest pain. Patient with known history of hypertension, hyperlipidemia and currently on dialysis, CHF, and CAD. Patient states that tonight hours prior to arrival, he had acute onset left-sided sensation changes going from his face, left arm and left leg, he also states that he had felt as though he was weak on his left side greater than his right. He denies any slurred speech, recent trauma, not on any anticoagulation medications. Patient denies history of stroke or similar symptoms like this in the past. He states he has had no improvement in his symptoms since his arrival . Patient also reports intermittent episodes of chest pain located on the left side, states this is more of a pressure, also states he has associated shortness of breath with this. No lightheaded or dizziness. No recent trauma or fall. States that he has been having some palpitations with this as well. He did take a baby aspirin this morning. Denies any pleuritic pain. - Related Data Home Medications: Home Medications Medication Instructions Recorded Confirmed Aspirin [Lo-Dose Aspirin EC] 81 mg PO DAILY 07/30/17 11/30/18 Calcium Carbonate [Calcium] 600 mg PO QAM 07/26/18 11/30/18 Nitroglycerin [Nitrostat] 0.4 mg SL Q5MIN PRN 11/09/18 11/30/18 Ranolazine [Ranexa] 1,000 mg PO BID 11/09/18 11/30/18 Dexlansoprazole [Dexilant] 30 mg PO DAILY 11/30/18 11/30/18 Insulin Glargine,Hum.rec.anlog 10 unit SQ HS 11/30/18 11/30/18 [Basaglar Darrylpen U-100] Meclizine [Antivert] 12.5 mg PO BID PRN 11/30/18 11/30/18 Sucralfate [Carafate] 1 gm PO QID 11/30/18 11/30/18 Previous Rx's Medication Instructions Recorded Ondansetron HCl [Zofran] 4 mg PO Q8HR PRN 5 Days #15 tab 11/19/18 Doxycycline 100 mg PO BID #14 capsule 12/07/18 Allergies/Adverse Reactions: Allergies Allergy/AdvReac Type Severity Reaction Status Date / Time No Known Allergies Allergy Verified 12/07/18 09:54 All systems ED: reviewed and negative except as stated. Review of Systems: As Per HPI Constitutional: Denies: fever, chills ENT ED: Denies: congestion Cardiovascular: Reports: chest pain, palpitations, dyspnea on exertion Respiratory: Reports: dyspnea. Denies: cough, wheezes, sputum production Gastrointestinal: Denies: abdominal pain, nausea, vomiting Genitourinary: Denies: urgency, dysuria Musculoskeletal: Denies: back pain Integumentary: Denies: rash Neurological: Reports: numbness. Denies: headache, weakness, confusion, abnormal gait Past Medical History - Past Medical History Medical history: Reports: dialysis, hyperlipidemia, hypertension Surgical history: Reports: angioplasty/stent Psychiatric history: Reports: no psych history - Social History Smoking Status: Never smoker Smokeless Tobacco Status: No Alcohol use: Reports: none Drug use: Reports: none Physical Exam General: Conversant. No apparent distress. Follow commands. Appears stated age. Neck: No JVD. Trachea midline. Neck supple. Eyes: PERRL. No scleral icterus. HENT: Normocephalic and atraumatic. Moist mucus membranes. Cardiovascular: Regular rate and rhythm. Normal S1 and S2. No murmurs appreciated. Normal capillary refill. Extremities well perfused with 2+ distal pulses bilaterally. No edema. Pulmonary: Normal and equal breath sounds bilaterally, anteriorly and posteriorly. No wheezes, rales, or rhonchi. Not in respiratory distress. Speaks in full sentences. Abdomen: Soft, nondistended, without tenderness. No bruits or masses. No guarding or rebound. Skin: Patient with chronic venous stasis changes to the bilateral lower ext remities. Musculoskeletal: No bony abnormalities visualized. Moves all extremities. Psych: Normal mood. Pleasant. Makes appropriate eye contact. - General Limitations: no limitations General appearance: alert, in no apparent distress Course Vital Signs Temperature 98.7 F 12/13/18 01:54 Pulse Rate 108 12/13/18 01:54 Respiratory Rate 20 12/13/18 01:54 Blood Pressure 206/93 12/13/18 01:54 O2 Sat by Pulse Oximetry 94 12/13/18 01:54 Temperature 98.7 F 12/13/18 01:54 Pulse Rate 100 12/13/18 03:02 Respiratory Rate 20 12/13/18 04:02 Blood Pressure 180/81 12/13/18 04:02 O2 Sat by Pulse Oximetry 95 12/13/18 03:02 Oxygen Delivery Oxygen Delivery Room Air Neuro Symptoms/Deficit - MDM Narrative Medical decision making narrative: Patient is a 53-year-old male who presented with acute onset of neurological changes. Patient also complaining of some chest pain and palpitations. Initial evaluation reveals NIH of 1 secondary to subjective sensation changes on the left face, left upper and lower extremity. Patient also with chest pain. Given new onset of symptoms, within the past 2-1/2 hours, stroke alert was called. Patient was then taken to CT, was called by radiology which states that there is no acute infarct or acute intracranial hemorrhage. I then spoke directly with [facility] neurology, states that given the patient's presentation and symptoms, does not appear to be strokelike in nature, recommendations no further interventions, patient is not a TPA candidate, recommended admission to our hospital for further MR imaging. Patient saw x-ray work including CBC is unremarkable. BMP does reveal elevated serum creatinine, patient is a chronic dialysis patient, this is slightly above patient's baseline, patient's troponin slightly elevated 0.04, patient was given aspirin given setting of chest pain. EKG shows no acute ischemic changes. Ch est x-ray shows concern for mild congestion, possible mild fluid overload, patient does not otherwise appear to have fluid overload on examination. Given creatinine function, we will hold on Lasix at this point in time. Patient appears to need dialysis treatment. Strokes alert was canceled following recommendation of [facility] neurology. Patient will be admitted for further observation and follow-up. - Medical Records Medical records reviewed: Yes I reviewed the patient's medical records. - Lab Data Lab results reviewed: Yes I reviewed the patient's lab results. Result diagrams: 12/13/18 02:34 12/13/18 02:34 Lab Results 12/13/18 12/13/18 12/13/18 Range/Units 02:34 02:34 02:34 WBC 9.4 D (4.3-11.1) K/mcL RBC 3.48 L (4.19-5.50) M/mcL Hgb 10.4 L (12.9-16.9) g/dL Hct 31.3 L (37.5-50.1) % MCV 89.9 (83.0-100.0) fL MCH 29.9 (28.0-33.3) pg MCHC 33.2 (31.6-35.5) g/dL RDW 14.0 (11.5-14.5) % Plt Count 311 (140-400) K/mcL MPV 8.7 L (9.4-12.4) fL PT 11.4 (9.4-12.1) Seconds INR 1.0 APTT 33.5 (26.0-36.0) Seconds Sodium 136 (136-145) mEq/L Potassium 4.3 (3.5-5.1) mEq/L Chloride 97 L (98-107) mEq/L Carbon Dioxide 24 (23-29) mEq/L BUN 58 H (6-20) mg/dL Creatinine 7.02 H (0.70-1.30) mg/dL Est GFR ( Amer) 10 L (> 60) Est GFR (Non-Af Amer) 8 L (> 60) BUN/Creatinine Ratio 8 (6-26) Glucose 237 H (70-105) mg/dL Calculated Osmolality 306 H (280-300) Calcium 8.3 L (8.6-10.3) mg/dL Troponin I 0.05 H* (< 0.04) ng/mL Urine Color (Yellow) Urine Clarity (Clear) Urine pH (5.0-8.0) pH Units Ur Specific [place] (1.010-1.025) Urine Protein (Neg-Trace) mg/dL Urine Glucose (UA) (Normal) mg/dL Urine Ketones (Negative) mg/dL Urine Blood (Negative) Urine Nitrite (Negative) Urine Bilirubin (Negative) Urine Urobilinogen (Normal) mg/dL Ur Leukocyte Esterase (Negative) Urine Microscopic RBC (0-3) per hpf Urine Microscopic WBC (0-3) per hpf Ur Squamous Epith Cells (None-Few) per lpf Urine Bacteria (None-Few) per hpf Hyaline Casts (None-Few) per lpf Urine Yeast (None Seen) per hpf Ur Culture Indicated? (NO) 12/13/18 Range/Units 03:34 WBC (4.3-11.1) K/mcL RBC (4.19-5.50) M/mcL Hgb (12.9-16.9) g/dL Hct (37.5-50.1) % MCV (83.0-100.0) fL MCH (28.0-33.3) pg MCHC (31.6-35.5) g/dL RDW (11.5-14.5) % Plt Count (140-400) K/mcL MPV (9.4-12.4) fL PT (9.4-12.1) Seconds INR APTT (26.0-36.0) Seconds Sodium (136-145) mEq/L Potassium (3.5-5.1) mEq/L Chloride (98-107) mEq/L Carbon Dioxide (23-29) mEq/L BUN (6-20) mg/dL Creatinine (0.70-1.30) mg/dL Est GFR ( Amer) (> 60) Est GFR (Non-Af Amer) (> 60) BUN/Creatinine Ratio (6-26) Glucose (70-105) mg/dL Calculated Osmolality (280-300) Calcium (8.6-10.3) mg/dL Troponin I (< 0.04) ng/mL Urine Color Yellow (Yellow) Urine Clarity Cloudy A (Clear) Urine pH 8.5 H (5.0-8.0) pH Units Ur Specific [place] 1.020 (1.010-1.025) Urine Protein >=300 H (Neg-Trace) mg/dL Urine Glucose (UA) 500 H (Normal) mg/dL Urine Ketones Negative (Negative) mg/dL Urine Blood Moderate H (Negative) Urine Nitrite Negative (Negative) Urine Bilirubin Negative (Negative) Urine Urobilinogen Normal (Normal) mg/dL Ur Leukocyte Esterase Negative (Negative) Urine Microscopic RBC 30-50 H (0-3) per hpf Urine Microscopic WBC TNTC H (0-3) per hpf Ur Squamous Epith Cells Few (None-Few) per lpf Urine Bacteria Few (None-Few) per hpf Hyaline Casts Few (None-Few) per lpf Urine Yeast Few H (None Seen) per hpf Ur Culture Indicated? YES A (NO) - Radiology Data Radiology results reviewed: Yes I reviewed the patient's radiology results. Head CT 12/13/18 02:05 IMPRESSION: No CT findings of acute infarct; if concern for ischemia/infarct persists, MRI should be obtained. Critical results were called by Dr. Tyrone Urena to Dr. Mehnaz Rios on 12/13/2018 at 02:33. D/ / Tyrone Urena / Tyrone Urena Interpreting Provider: Tyrone Urena - EKG Data EKG attestation: Yes I reviewed and interpreted this EKG. EKG results narrative: EKG obtained at 020-1223 to 106, regular rhythm, normal axis, no ST segment elevation, depression, there is T wave inversions in aVL, and Q waves in 2, 3, aVF. These are unchanged from patient's baseline. NIH Stroke Scale - Level of Consciousness LOC: Alert - LOC Questions LOC Questions: Answers both correctly - LOC Commands LOC Commands: Performs both correctly - Best Gaze Best Gaze: Normal - Visual Visual: No visual loss - Facial Palsy Facial Palsy: Normal - Motor Arms Motor Arm-Left: No drift for 10 seconds Motor Arm-Right: No drift for 10 seconds - Motor Legs Motor Leg-Left: No drift for 5 seconds Motor Leg-Right: No drift for 5 seconds - Limb Ataxia Limb Ataxia: Absent of affected limb too weak to perform exam - Sensory Sensory: Mild to moderate loss, "not as sharp" - Best Language Best Language: No aphasia - Dysarthria Dysarthria: Normal - Extinction and Inattention Extinction and Inattention: Normal - NIHSS Total Score NIHSS Total Score: 1 TPA Checklist - LKW: 3-4.5 hrs Add. Warnings/Precautions Patient/family understanding: The patient/family members have been counseled and understood the risk, benefit, and alternatives of treatment.
[2018-12-13 02:39] LABS: Hematocrit 31.3 % (37.5-50.1); Hemoglobin 10.4 g/dL (12.9-16.9); Mean Corpuscular HGB Conc 33.2 g/dL (31.6-35.5); Mean Corpuscular Hemoglobin 29.9 pg (28.0-33.3); Mean Corpuscular Volume 89.9 fL (83.0-100.0); Mean Platelet Volume 8.7 fL (9.4-12.4); Platelet Count 311 K/mcL (140-400); Red Blood Count 3.48 M/mcL (4.19-5.50)
[2018-12-13 02:40] LABS: White Blood Count 9.4 K/mcL (4.3-11.1)
[2018-12-13 02:49] LABS: Prothrombin Time 11.4 Seconds (9.4-12.1)
[2018-12-13 02:52] LABS: Activated Partial Thrombo Time 33.5 Seconds (26.0-36.0)
[2018-12-13 03:01] LABS: Calcium 8.3 mg/dL (8.6-10.3); Potassium 4.3 mEq/L (3.5-5.1); Troponin I 0.05 ng/mL (< 0.04)
[2018-12-13] MEDS ORDERED: Aspirin 81 MG TAB.CHEW PO ONE (03:30)
[2018-12-13 03:58] LABS: Bilirubin,Urine Negative (Negative); Blood,Urine Moderate (Negative); Clarity,Urine Cloudy (Clear); Color,Urine Yellow (Yellow); Glucose,Urine (UA) 500 mg/dL (Normal); Ketones,Urine Negative (Negative); Leukocyte Esterase,Urine Negative (Negative); Nitrite,Urine Negative (Negative); PH,Urine 8.5 pH Units (5.0-8.0); Protein,Urine >=300 mg/dL (Neg-Trace); Urobilinogen,Urine Normal (Normal)
--- NOTE | 2018-12-13 03:59 | Emergency Department Note ---
Disposition Clinical Impression: Tingling of left arm and left side of face, Left leg paresthesias Chest pain Qualifiers: Chest pain type: other chest pain Qualified Code(s): R07.89 - Other chest pain Disposition: Admitted As Inpatient Condition: Fair Forms: ED Satisfaction Letter Time of Disposition: 04:04 Neuro HPI - General Chief Complaint: ED Weakness Stated Complaint: Lt Side numbness Time Seen by Provider: 12/13/18 01:52 Source: EMS Mode of arrival: EMS Limitations: no limitations Nursing Notes Reviewed: Yes Vital Signs Reviewed: Yes - Related Data Home Medications: Home Medications Medication Instructions Recorded Confirmed Aspirin [Lo-Dose Aspirin EC] 81 mg PO DAILY 07/30/17 11/30/18 Calcium Carbonate [Calcium] 600 mg PO QAM 07/26/18 11/30/18 Nitroglycerin [Nitrostat] 0.4 mg SL Q5MIN PRN 11/09/18 11/30/18 Ranolazine [Ranexa] 1,000 mg PO BID 11/09/18 11/30/18 Dexlansoprazole [Dexilant] 30 mg PO DAILY 11/30/18 11/30/18 Insulin Glargine,Hum.rec.anlog 10 unit SQ HS 11/30/18 11/30/18 [Basaglar Kwikpen U-100] Meclizine [Antivert] 12.5 mg PO BID PRN 11/30/18 11/30/18 Sucralfate [Carafate] 1 gm PO QID 11/30/18 11/30/18 Previous Rx's Medication Instructions Recorded Ondansetron HCl [Zofran] 4 mg PO Q8HR PRN 5 Days #15 tab 11/19/18 Doxycycline 100 mg PO BID #14 capsule 12/07/18 Allergies/Adverse Reactions: Allergies Allergy/AdvReac Type Severity Reaction Status Date / Time No Known Allergies Allergy Verified 12/07/18 09:54 Past Medical History - Past Medical History Medical history: Reports: dialysis, hyperlipidemia, hypertension Surgical history: Reports: angioplasty/stent Psychiatric history: Reports: no psych history - Social History Smoking Status: Never smoker Smokeless Tobacco Status: No Alcohol use: Reports: none Drug use: Reports: none Physical Exam - General Limitations: no limitations General appearance: alert, in no apparent distress Course Vital Signs Temperature 98.7 F 12/13/18 01:54 Pulse Rate 108 09/02/19 01:54 Respiratory Rate 20 12/13/18 01:54 Blood Pressure 206/93 12/13/18 01:54 O2 Sat by Pulse Oximetry 94 12/13/18 01:54 Temperature 98.7 F 12/13/18 01:54 Pulse Rate 100 12/13/18 03:02 Respiratory Rate 20 12/13/18 03:02 Blood Pressure 235/109 12/13/18 03:02 O2 Sat by Pulse Oximetry 95 12/13/18 03:02 Oxygen Delivery Oxygen Delivery Room Air Neuro Symptoms/Deficit - Lab Data Result diagrams: 12/13/18 02:34 12/13/18 02:34 Lab Results 12/13/18 12/13/18 12/13/18 Range/Units 02:34 02:34 02:34 WBC 9.4 D (4.3-11.1) K/mcL RBC 3.48 L (4.19-5.50) M/mcL Hgb 10.4 L (12.9-16.9) g/dL Hct 31.3 L (37.5-50.1) % MCV 89.9 (83.0-100.0) fL MCH 29.9 (28.0-33.3) pg MCHC 33.2 (31.6-35.5) g/dL RDW 14.0 (11.5-14.5) % Plt Count 311 (140-400) K/mcL MPV 8.7 L (9.4-12.4) fL PT 11.4 (9.4-12.1) Seconds INR 1.0 APTT 33.5 (26.0-36.0) Seconds Sodium 136 (136-145) mEq/L Potassium 4.3 (3.5-5.1) mEq/L Chloride 97 L (98-107) mEq/L Carbon Dioxide 24 (23-29) mEq/L BUN 58 H (6-20) mg/dL Creatinine 7.02 H (0.70-1.30) mg/dL Est GFR ( Amer) 10 L (> 60) Est GFR (Non-Af Amer) 8 L (> 60) BUN/Creatinine Ratio 8 (6-26) Glucose 237 H (70-105) mg/dL Calculated Osmolality 306 H (280-300) Calcium 8.3 L (8.6-10.3) mg/dL Troponin I 0.05 H* (< 0.04) ng/mL TPA Checklist - LKW: 3-4.5 hrs Add. Warnings/Precautions Patient/family understanding: The patient/family members have been counseled and understood the risk, benefit, and alternatives of treatment. Attestation Statement - Attestation Attestation: I have seen this patient with the resident physician, I have personally evaluated this patient. I had reviewed the chart and document dictation by the resident physician and aM in agreement with the information documented by the resident physician. Please see documentation by the resident physician for complete chart including past medical history, family medical history, review of systems, current history and physical and laboratory and imaging studies. I was present for all procedures, provided direct supervision for all procedures, was present for the entirety of all procedures and provided direct guidance during the procedures. Please see documentation by the resident physician for any procedures performed. I have reviewed all interpretations of EKGs, and reviewed all EKGs performed on patient's as well. I have also reviewed reports of imaging as provided by radiology. Patient presented emergency Department chief complaint of 2-1/2 hours ago sudden onset of left-sided face arm and leg tingling like he cannot feel them. He states he can move them but he thinks a sort of feel weak. Denies headache denies neck pain denies significant dizziness or weakness he does endorse that since arriving he is also felt a little bit of chest pain 2. He is a dialysis patient denies missing dialysis. Denies back or bloody stool. Denies headache denies any other acute concerns. Stroke alert was initiated, full neurologic exam was performed, he reports subjective sensory difference of the entire left side of his body compared to his right side, however there is no definitive abnormality noted, with equal strength in all 4 extremities, with no facial droop with normal speech with normal extraocular movements. Cardiovascular regular rate and rhythm 2/6 systolic murmur no rubs or gallops lungs are clear. Abdomen soft and nontender. There is trace to 1+ bilateral lower extremity edema with chronic venous stasis change of the bilateral lower extremities both intact distal pulses and without evidence of superinfection. Spoke with stroke neurology, who reviewed the CT, did not feel at the patient was a TPA candidate, recommended medical admission at this facility with MRI to be performed as an inpatient. EKG was a normal sinus rhythm no evidence of acute ischemia or dysrhythmia hyperkalemia, findings to sit with LVH, no evidence of ST elevation, nonspecific T-wave abnormality noted. Head CT is interpreted by radiology showed no acute findings. CBC and renal panel within acceptable limits apart from creatinine of 7 c onsistent with his history of dialysis no hyperkalemia. Troponin was 0.05 which when compared is no change from prior. Patient was admitted to the hospital for further evaluation and management of s trokelike symptoms left-sided paresthesias chest pain. Total critical care times run myself excluding any procedures performed was 30 minutes
[2018-12-13 04:03] LABS: Hyaline Casts,Urine Few per lpf (None-Few); RBC,Urine 30-50 per hpf (0-3); WBC,Urine TNTC per hpf (0-3)
[2018-12-13 04:14] LABS: Bacteria,Urine Few per hpf (None-Few); Squamous Epithelial Cell,Urine Few per lpf (None-Few); Yeast,Urine Few per hpf (None Seen)
[2018-12-13] MEDS ORDERED: Nitroglycerin 0.4 MG TAB.SUBL SL PRN (05:16)
--- NOTE | 2018-12-13 05:30 | Internal Med History&Physical ---
Date of Encounter: 12/13/18 Time of Encounter: 05:19 Internal Medicine - H&P: HPI Chief complaint: Numbness and weakness left upper lower extremity and chest pain History of present illness: Mr. Hernandez is a 53 year old male with past medical history of congestive heart fa ilure, coronary artery disease status post stent placement and ESRD on HD (M,W,F) who presented to the ED with complaints of acute onset numbness and weakness involving the left side of his body and chest pain. Patient states that around 9:30 this evening while sitting watching TV, he had acute onset left-sided numbness involving the left arm and left leg. 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 He also noted mild weakness involving left leg. He also reports increased blurry vision involving his left eye. Patient denies history of stroke or similar symptoms like this in the past. He states he has had no improvement in his symptoms since his arrival. Patient also noted left-sided chest pain around 1 AM this morning radiating to his left arm. Chest pain described as being hit in the chest with a sledgehammer. Chest pain aggravated by laying down on his back and relieved by turning onto his left side. He denies any slurred speech, recent trauma, not on any anticoagulation medications. Denies any pleuritic pain. On initial arrival, patient was afebrile and hypertensive with a initial blood pressure of 206/93. Stroke alert was called while in the ED. CT of the head showed no acute infarct or acute intracranial hemorrhage. [facility] neurology evaluated the patient and felt that symptoms did not appear to be strokelike in nature, and recommended further MR imaging. 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 Type II Diabetic,severe esophagitis, hiatal hernia Psychiatric history: no psych history - Past Surgical History Surgical History: angioplasty/stent Additional surgical history: Prostate surgery (TURP), left arm av shunt. Right lung surgery - Social History Smoking Status: Never smoker Smokeless Tobacco Status: No Alcohol use: none Drug use: none - Family History Mother Adopted: No Living Status: Hx Family Cardiac Disorders: Yes (mother stroke) Hx Family Respiratory Disorders: Yes (Dad asthma copd) Hx Family Cancer: Yes (prostate, pancreatic) Hx Family GI Disorders: No Hx Family Endocrine Disorder: Yes (DM) Hx Family Neuromuscular Disorders: No Hx Family Neurologic Disorders: No Hx Family HEENT Disorders: No Hx Family Autoimmune Disorders: No Father Adopted: No Family Member Ethnicity: Non- Living Status: Hx Family Cardiac Disorders: Yes (father, stents) Hx Family Respiratory Disorders: Yes (father COPD) Hx Family Cancer: Yes (Father prostate cancer uncle colon) Hx Family GI Disorders: No Hx Family Endocrine Disorder: Yes (dM) Hx Family Neuromuscular Disorders: No Hx Family Neurologic Disorders: No Hx Family HEENT Disorders: No Hx Family Autoimmune Disorders: No Internal Medicine - H&P: Meds Aspirin [Lo-Dose Aspirin EC] 81 mg PO DAILY 07/30/17 [History] Calcium Carbonate [Calcium] 600 mg PO QAM 07/26/18 [History] Nitroglycerin [Nitrostat] 0.4 mg SL Q5MIN PRN 11/09/18 [History] Ranolazine [Ranexa] 1,000 mg PO BID 11/09/18 [History] Ondansetron HCl [Zofran] 4 mg PO Q8HR PRN 5 Days #15 tab 11/19/18 [Rx] Dexlansoprazole [Dexilant] 30 mg PO DAILY 11/30/18 [History] Insulin Glargine,Hum.rec.anlog [Basaglar Kwikpen U-100] 10 unit SQ HS 11/30/18 [History] Meclizine [Antivert] 12.5 mg PO BID PRN 11/30/18 [History] Sucralfate [Carafate] 1 gm PO QID 11/30/18 [History] Doxycycline 100 mg PO BID #14 capsule 12/07/18 [Rx] Allergy/AdvReac Type Severity Reaction Status Date / Time No Known Allergies Allergy Verified 12/07/18 09:54 All Systems PM: A 10-system review of systems was performed and is negative for pertinent findings except as documented above in the HPI. - Constitutional Constitutional: no chills, no fever(s), no night sweats - EENT Eyes: no change in vision, no discharge, no pain, no photophobia Ears: no ear discharge, no ear pain, no tinnitus Nose, mouth and throat: no dysphagia, no nasal discharge, no neck pain, no sore throat - Cardiovascular Cardiovascular ROS IM: no chest pain, no diaphoresis, no dyspnea, no lig htheadedness, no palpitations, no syncope - Respiratory Respiratory: no cough, no dyspnea, no wheezing, no excessive phlegm production - Gastrointestinal Gastrointestinal: no abdominal pain, no diarrhea, no hematemesis, no hematochezia, no melena, no nausea, no vomiting - Musculoskeletal Musculoskeletal ROS IM: no numbness, no tingling - Integumentary Integumentary IM: no rash, no unusual bruising - Neurological Neurological ROS: no confusion, no convulsions, no focal weakness, no numbness, no tingling, no tremor(s) - Hematologic/Lymphatic Hematologic/Lymphatic: no easy bruising - Constitutional Vitals: Temp Pulse Resp BP Pulse Ox 98.5 F 97 16 189/99 97 12/13/18 05:00 12/13/18 05:00 12/13/18 05:00 12/13/18 05:00 12/13/18 05:00 Exam: General: Alert and oriented 3 lying in bed in no acute distress Skin:Normal color, no rash, no lesions. HEENT:EOM, pupils equal, round and reactive. Cardiovascular:Normal S1 & S2, no rubs, murmurs or gallops. No JVD. Pulse regular. Lungs:Normal breath sounds, no wheezes or crackles. Abdomen:Soft, non-tender, no rigidity. Extremities:No deformity, no edema or tenderness, no joint swelling or clubbing. Neurological:Normal cognition and motor skills. Cranial nerves II through XII intact. Left upper and lower extremity 4-5 muscle strength; right upper lower extremity 5 out of 5. Sensation diminished in the left upper and lower extremity to light palpation. No pronator drift. Pulses:Carotid and radial pulses normal +2. Rest of the physical exam is non contributory Internal Med - H&P Results - Labs CBC & Chem 7: 12/13/18 02:34 12/13/18 07:28 Labs: Short CBC 12/13/18 Range/Units 02:34 WBC 9.4 D (4.3-11.1) K/mcL Hgb 10.4 L (12.9-16.9) g/dL Hct 31.3 L (37.5-50.1) % Plt Count 311 (140-400) K/mcL BMP 12/13/18 02:34 Sodium 136 Potassium 4.3 Chloride 97 L Carbon Dioxide 24 BUN 58 H Creatinine 7.02 H Glucose 237 H Calcium 8.3 L Cardiac Enzymes 12/13/18 Range/Units 02:34 Troponin I 0.05 H* (< 0.04) ng/mL Urine 12/13/18 Range/Units 03:34 Urine Color Yellow (Yellow) Urine Clarity Cloudy A (Clear) Urine pH 8.5 H (5.0-8.0) pH Units Ur Specific [place] 1.020 (1.010-1.025) Urine Protein >=300 H (Neg-Trace) mg/dL Urine Glucose (UA) 500 H (Normal) mg/dL - Impressions ITS Impressions Head CT 12/13/18 02:05 IMPRESSION: No CT findings of acute infarct; if concern for ischemia/infarct persists, MRI should be obtained. Critical results were called by Dr. Tyrone Urena to Dr. Mehnaz Rios on 12/13/2018 at 02:33. D/ / Tyrone Urena / Tyrone Urena Interpreting Provider: Tyrone Urean Chest X-Ray 12/13/18 03:37 IMPRESSION: Mild congestion and small right effusion. Findings suggestive of volume overload. D/ / Tyrone Urena / Tyrone Urena Interpreting Provider: Tyrone Urena - Assessment and Plan (1) Stroke-like episode Current Visit: Yes Status: Acute Assessment and plan: Patient presenting with acute onset left-sided numbness and weakness of the upper and lower extremities in addition to increasing blurry vision of the left eye. No prior history of stroke/TIA. Initial CT scan of the head was unremarkable. [facility] neurology evaluated the patient and felt that symptoms did not appear to be strokelike in nature, and recommended further MR imaging. Patient received loading dose of aspirin in the ED. On my assessment, aforementioned deficits appear to persist. Given findings, we will obtain full CVA/TIA workup -Telemetry -Neurochecks -Holding antihypertensives to allow for permissive hypertension -Lipid panel; A1c -Echocardiogram limited; bilateral carotid Doppler -MRI in the a.m. -Neurology consult (2) Chest pain Current Visit: Yes Status: Chronic Assessment and plan: Patient reporting left-sided chest pain with radiation to the left arm which appears to have a positional component; improved with laying on his side and aggravated when lying on his back. Initial troponin is 0.05, however, this appears to be chronically elevated in the setting of his end-stage renal disease. EKG shows sinus tachycardia with a heart rate of [address] and T-wave changes, relatively unchanged from previous EKG. Positional nature of this pain raises the possibility of pericarditis, possibly even uremic given his end-stage renal disease, though classic diffuse ST elevations not se en on EKG. He does have a hx of CAD and is s/p C in 05/2018 with severe 3V CAD, no intervention. Limited TTE 10/25/18: LVEF 50-55%. Normal LV chamber size, wall thickness and low normal function. Patient underwent nuclear stress testing in October which was nondiagnostic with consideration for repeat study or alternative stress modality. -Telemetry -Trend troponin -Echocardiogram ltd -If troponins remain adynamic and echo unchanged, consider discussion with cardiology to determine modality of stress testing given previous nondiagnostic results on nuclear stress testing in October. Qualifiers: Chest pain type: unspecified Qualified Code(s): R07.9 - Chest pain, unspecified (3) ESRD (end stage renal disease) Current Visit: No Status: Chronic Assessment and plan: End-stage renal disease on hemodialysis Thursday, Thursday, Thursday. -We will consult nephrology to accommodate dialysis session today. (4) Chronic anemia Current Visit: No Status: Chronic (5) Diabetes Current Visit: No Status: Chronic Assessment and plan: Accu-Cheks every 6 hours. We will start patient on sliding scale plus basal insulin. Qualifiers: Diabetes mellitus type: type 2 Diabetes mellitus long-term insulin use: without long-term use Diabetes mellitus complication status: with kidney complications Diabetes mellitus complication detail: with chronic kidney disease Chronic kidney disease stage: on chronic dialysis Qualified Code(s): E11.22 - Type 2 diabetes mellitus with diabetic chronic kidney disease; N18.6 - End stage renal disease; Z99.2 - Dependence on renal dialysis (6) Wound of lower extremity Current Visit: Yes Status: Acute Assessment and plan: Consider wound care consult. Qualifiers: Qualified Code(s): S81.809A - Unspecified open wound, unspecified lower leg, initial encounter (7) DVT prophylaxis Current Visit: No Status: Acute - Time Spent With Patient Total time spent is greater than 50% in coordination of care (as documented) at patient's floor/unit and/or counseling patient:
[2018-12-13] MEDS ORDERED: Naloxone 0.4 MG/ML INJ IVP PRN (06:19)
[2018-12-13] MEDS ORDERED: D5% in Water 1,000 ML IVC PRN (07:35)
[2018-12-13] MEDS ORDERED: Dextrose Gel 15 GM/37.5 ML TUBE PO PRN ×2 (07:35)
[2018-12-13] MEDS ORDERED: *HR* Dextrose 50 % in Water (Syg) 50 ML SYRINGE IVP PRN (07:35)
[2018-12-13] MEDS ORDERED: 0.9 % Sodium Chloride 1,000 ML ONE (07:47)
[2018-12-13 08:13] LABS: Chol/HDL Ratio 4.7 (0-4.9)
[2018-12-13 08:14] LABS: Albumin 3.3 g/dL (3.5-5.7); Bilirubin,Total 0.2 mg/dL (0.3-1.0); Calcium 8.1 mg/dL (8.6-10.3); Globulin 3.2 g/dL (2.4-3.5); Potassium 4.2 mEq/L (3.5-5.1); Total Protein 6.5 g/dL (6.4-8.9)
[2018-12-13] MEDS ORDERED: DEXLANSOPRAZOLE 30 MG PO SCH (09:00)
[2018-12-13] MEDS: Aspirin Enteric Coated 81 MG Tablet PO SCH (09:36)
[2018-12-13] MEDS: Ranolazine 500 MG TAB.ER.12H PO SCH ×2 (09:36→21:09)
[2018-12-13] MEDS: Sucralfate 1 GM TABLET PO SCH ×4 (09:36→21:09)
[2018-12-13 09:42] LABS: Hepatitis B Surface Antibody 4.63 mIU/mL
[2018-12-13 09:53] LABS: Hepatitis B Surface Antigen Nonreactive (Nonreactive)
--- NOTE | 2018-12-13 10:02 | Event Note ---
Date of Encounter: 12/13/18 Time of Encounter: 09:56 Patient was seen and examined at bedside today. Patient still complains of left-sided chest pain. Patient still complaining of left-sided numbness and weakness and pain. Patient was admitted overnight and stroke alert was called. Patient was evaluated by [facility] stroke neurologist. They recommend patient does not qualify for TPA. Patient was admitted with recommendation to get MRI. Neurology consult placed. Patient will get today limited echo, ultrasound carotid Doppler, MRI, and neurologic consult. Patient also had elevated troponin. At 0.05 which is appears to be his baseline due to end-stage renal disease. We will get a limited echo today. Patient has a stress test done in October which was negative. We will place cardiology on consult and further workup is needed. Patient also had a history of end-stage renal disease and go to dialysis Thursday and Thursday. Creatinine today is 7.3. Nephrology on consult. Patient is to go for dialysis today.
[2018-12-13] MEDS ORDERED: 0.9 % Sodium Chloride 250 ML IVC PRN (10:22)
[2018-12-13] MEDS ORDERED: 0.9 % Sodium Chloride 1,000 ML PRIME SCH (10:30)
--- NOTE | 2018-12-13 11:17 | Cardiology Consult Note ---
Date of Encounter: 12/13/18 Time of Encounter: 11:17 Assessment and Plan (1) Chest pain Current Visit: Yes Status: Chronic Presented with atypical chest pain at rest in setting of neurological complaints--left sided weakness. Initial BP 206/93. He does have a hx of CAD and is s/p C in 05/2018 with severe 3V CAD, no intervention. Poor targets for bypass and medical management has been recommended. 8/8 had an endoscopy with severe esophagitis and large hiatal hernia. He was recommended for outpatient surgery evaluation for fundoplication for severe reflux esophagitis and hiatal hernia. Mild troponins 0.05, 0.06 in setting of ESRD on dialysis--demand ischemia, nondiagnostic for ACS. Limited TTE 10/25/18: LVEF 50-55%. Normal LV chamber size, wall thickness and low normal function. Repeat limited TTE ordered by primary team. Chest pain is atypical in setting of neurological complaints and with known severe esophagitis. If limited TTE is unchanged, no further cardiac testing warranted. Continue ASA, Ranexa. Will add statin, Imdur, and low dose BB. Anticipate sign off once seen and evaluated by Dr. Suarez. Qualifiers: Chest pain type: unspecified Qualified Code(s): R07.9 - Chest pain, unspecified (2) Elevated troponin Current Visit: No Status: Acute Mild troponins 0.05, 0.06 in setting of ESRD on dialysis--demand ischemia, nondiagnostic for ACS. Chronically elevated troponins. Plan as above. (3) CAD (coronary artery disease) Current Visit: No Status: Chronic As above, [facility] 05/2018, known severe 3V CAD with poor targets. Medical management recommended. ASA, Statin, BB, Nitrates. Qualifiers: Coronary Disease-Associated Artery/Lesion type: barrow artery [place] vs. transplanted heart: barrow heart Associated angina: without angina Qualified Code(s): I25.10 - Atherosclerotic heart disease of barrow coronary artery without angina pectoris (4) Hypertensive urgency Current Visit: Yes Status: Acute Initial BP 206/93. BP currently 170s systolic. Add low dose BB. Further management per primary team. Discussion w patient/family: The assessment and plan as outlined above was discussed with the patient and/or family members who expressed understanding and agreement. All questions were answered. Thank you for involving us in the care of your patient. Please call with any questions. I will discuss all the above with Dr. Suarez and make changes as necessary. History of Present Illness Consult date: 12/13/18 Consult reason: chest pain Chief complaint: chest pain, left sided weakness History of present illness: Mr. Hernandez is a 53 year old male with PMH of ESRD on HD MWF, venous stasis, T2DM, CAD, HFrEF, oral candidasis, RLS, and HTN. He presented with complaints of acute onset numbness and weakness involving the left side of his body and chest pain. 9:30 yesterday evening while sitting watching TV, had acute onset left-sided numbness involving the left arm and left leg. Around 1 AM he noted a twisting- like pain predominantly in his left upper extremity associated with weakness involving the left arm and weakness involving left leg. Reports increased blurry vision involving his left eye. Noted left-sided chest pain around 1 AM this morning radiating to his left arm. Chest pain described as being hit in the chest, aggravated by laying down on his back and relieved by turning onto his left side. Initial blood pressure of 206/93. Stroke alert was called while in the ED. CT of the head showed no acute infarct or acute intracranial hemorrhage. [facility] neurology evaluated the patient and felt that symptoms did not appear to be strokelike in nature, and recommended further MR imaging. Cardiology consulted for chest pain and mild troponins--0.05, 0.06. Prior CV testing: Limited TTE 10/25/18: LVEF 50-55%. Normal LV chamber size, wall thickness and low normal function. Nuclear stress test 10/26/18: Technically limited study. [facility] 06/03/18: There is severe three vessel coronary artery disease. The left ventricle is normal and has abnormal contractility EF 45%. No circumflex artery stent restenosis. The LMCA is angiographically free of disease. There is a 80% stenosis in the Mid LAD. Vessel is small and diffusely diseased. There is a 80% stenosis in the Distal LAD. Vessel is small and diffusely diseased. There is a stenosis in the 1st Diagonal. There is a patent stent in the Mid Circumflex. There is a 15% stenosis in the Distal Circumflex. There is a 20% stenosis in the 1st Marginal. Vessel is diffusely diseased. There is a 60% stenosis in the proximal Ramus. Vessel is diffusely diseased. There is a 20% stenosis in the pRCA, 30% mRCA. 95% dRCA. Vessel is small and diffusely diseased. There is a 95% stenosis in the Right PDA. Vessel is small and diffusely diseased. TTE 06/03/18: Technically challenging due to body habitus. Normal sinus rhythm vs ectopic atrial rhythm. Occasional ventricular ectopy. LVEF 45-50%. Definity echo contrast was used. Low normal to mildly reduced global LV systolic function. Mild left ventricular diastolic dysfunction. Normal right ventricular structure and function. No significant valvular dysfunction. No pulmonary hypertension. 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 Type II Diabetic,severe esophagitis, hiatal hernia Psychiatric history: no psych history - Past Surgical History Surgical History: angioplasty/stent Additional surgical history: Prostate surgery (TURP), left arm av shunt. Right lung surgery - chest tube still in place - Social History Smoking Status: Never smoker Smokeless Tobacco Status: No Alcohol use: none Drug use: none - Family History Mother Adopted: No Living Status: Hx Family Cardiac Disorders: Yes (mother stroke) Hx Family Respiratory Disorders: Yes (Dad asthma copd) Hx Family Cancer: Yes (prostate, pancreatic) Hx Family GI Disorders: No Hx Family Endocrine Disorder: Yes (DM) Hx Family Neuromuscular Disorders: No Hx Family Neurologic Disorders: No Hx Family HEENT Disorders: No Hx Family Autoimmune Disorders: No Father Adopted: No Family Member Ethnicity: Non- Living Status: Hx Family Cardiac Disorders: Yes (father, stents) Hx Family Respiratory Disorders: Yes (father COPD) Hx Family Cancer: Yes (Father prostate cancer uncle colon) Hx Family GI Disorders: No Hx Family Endocrine Disorder: Yes (dM) Hx Family Neuromuscular Disorders: No Hx Family Neurologic Disorders: No Hx Family HEENT Disorders: No Hx Family Autoimmune Disorders: No Medications and Allergies Aspirin [Lo-Dose Aspirin EC] 81 mg PO DAILY 07/30/17 [History] Calcium Carbonate [Calcium] 600 mg PO QAM 07/26/18 [History] Nitroglycerin [Nitrostat] 0.4 mg SL Q5MIN PRN 11/09/18 [History] Ranolazine [Ranexa] 1,000 mg PO BID 11/09/18 [History] Ondansetron HCl [Zofran] 4 mg PO Q8HR PRN 5 Days #15 tab 11/19/18 [Rx] Dexlansoprazole [Dexilant] 30 mg PO DAILY 11/30/18 [History] Insulin Glargine,Hum.rec.anlog [Basaglar Kwikpen U-100] 10 unit SQ HS 11/30/18 [History] Meclizine [Antivert] 12.5 mg PO BID PRN 11/30/18 [History] Sucralfate [Carafate] 1 gm PO QID 11/30/18 [History] Doxycycline 100 mg PO BID #14 capsule 12/07/18 [Rx] Allergy/AdvReac Type Severity Reaction Status Date / Time No Known Allergies Allergy Verified 12/07/18 09:54 All Systems Review: The remainder of the systems were reviewed and are negative - Cardiovascular Cardiovascular: as per HPI, chest pain at rest - Neurological Neurological: numbness Physical Examination Vital Signs, Last 4 Hours Temp Pulse Resp BP Pulse Ox 12/13/18 07:25 98.7 F 95 16 174/92 98 Vital Signs Temp Pulse Resp BP Pulse Ox 12/13/18 07:25 98.7 F 95 16 174/92 98 12/13/18 05:00 98.5 F 97 16 189/99 97 12/13/18 04:02 20 180/81 12/13/18 03:02 100 20 235/109 95 12/13/18 02:47 99 20 216/89 96 12/13/18 02:05 96 12/13/18 01:54 98.7 F 108 20 206/93 94 Intake and Output 12/12/18 12/13/18 12/13/18 23:59 07:59 15:59 Output Total 300 / 300 Balance -300 / -300 Output: Urine 300 / 300 Other: Weight 97.522 kg Blood Glucose* 208 Patient Weight 12/13/18 23:59 Weight 97.522 kg General: Conversant, No Apparent Distress HEENT: Atraumatic, Normocephaly, Mucus Membranes Moist Neck: No JVD, Normal carotid pulses Cardiac: Reg Rate and Rhythm, Normal S1 and S2, No Murmur Lungs: Normal Breath Sounds, No Wheeze, Rales, Rhonchi Neuro: Alert and responsive, No focal deficits noted Abdomen: Soft, Non-Tender Skin: No rashes noted on visualized skin Musculoskeletal: No Chest Wall Tenderness Extremities: Other (BLE wounds/sores noted. LUE fistula) Results 12/13/18 02:34 12/13/18 07:28 Lab Results 12/13/18 12/13/18 12/13/18 02:34 02:34 02:34 WBC 9.4 D Hgb 10.4 L Hct 31.3 L Plt Count 311 INR 1.0 APTT 33.5 Sodium 136 Potassium 4.3 Chloride 97 L Carbon Dioxide 24 BUN 58 H Creatinine 7.02 H Glucose 237 H Calcium 8.3 L Total Bilirubin AST ALT Alkaline Phosphatase Troponin I 0.05 H* 12/13/18 12/13/18 07:28 07:28 WBC Hgb Hct Plt Count INR APTT Sodium 137 Potassium 4.2 Chloride 98 Carbon Dioxide 24 BUN 62 H Creatinine 7.51 H Glucose 204 H Calcium 8.1 L Total Bilirubin 0.2 L AST 9 L ALT 5 L Alkaline Phosphatase 71 Troponin I 0.06 H* Short CBC 12/13/18 Range/Units 02:34 WBC 9.4 D (4.3-11.1) K/mcL Hgb 10.4 L (12.9-16.9) g/dL Hct 31.3 L (37.5-50.1) % Plt Count 311 (140-400) K/mcL BMP 12/13/18 12/13/18 Range/Units 07:28 02:34 Sodium 137 136 (136-145) mEq/L Potassium 4.2 4.3 (3.5-5.1) mEq/L Chloride 98 97 L (98-107) mEq/L Carbon Dioxide 24 24 (23-29) mEq/L BUN 62 H 58 H (6-20) mg/dL Creatinine 7.51 H 7.02 H (0.70-1.30) mg/dL Glucose 204 H 237 H (70-105) mg/dL Calcium 8.1 L 8.3 L (8.6-10.3) mg/dL Cardiac Enzymes 12/13/18 12/13/18 Range/Units 07:28 02:34 Troponin I 0.06 H* 0.05 H* (< 0.04) ng/mL Liver Function 12/13/18 Range/Units 07:28 Total Bilirubin 0.2 L (0.3-1.0) mg/dL AST 9 L (13-39) Units/L ALT 5 L (7-52) Units/L Alkaline Phosphatase 71 (34-104) Units/L Albumin 3.3 L (3.5-5.7) g/dL Urine 12/13/18 Range/Units 03:34 Urine Color Yellow (Yellow) Urine Clarity Cloudy A (Clear) Urine pH 8.5 H (5.0-8.0) pH Units Ur Specific [place] 1.020 (1.010-1.025) Urine Protein >=300 H (Neg-Trace) mg/dL Urine Glucose (UA) 500 H (Normal) mg/dL Impressions Head CT 12/13/18 02:05 IMPRESSION: No CT findings of acute infarct. If concern for ischemia/infarct persists, MRI should be obtained. Critical results were called by Dr. Tyrone Urena to Dr. Mehnaz Rios on 12/13/2018 at 02:33. D/ / 12/13/2018 07:45:45 Tyrone Uerna / earnold Interpreting Provider: Tyrone Urena Chest X-Ray 12/13/18 03:37 IMPRESSION: Mild congestion and small right effusion. Findings suggestive of volume overload. D/ / Tyrone Urena / Tyrone Urena Interpreting Provider: Tyrone Urena Active Medications Aspirin (Aspirin Ec) 81 mg PO DAILY DEDE Stop: 06/14/19 09:01 Last Admin: 12/13/18 09:36 Dose: 81 mg Documented by: Atorvastatin Calcium (Lipitor) 80 mg PO HS DEDE Stop: 06/14/19 09:01 Last Admin: 12/13/18 09:36 Dose: 80 mg Documented by: Calcium Carbonate (Tums) 500 mg PO QAM DEDE Stop: 06/14/19 09:01 Last Admin: 12/13/18 09:36 Dose: 500 mg Documented by: Dextrose/Water (Dextrose 50% (Syg)) 25 ml IVP AD PRN PRN Reason: Hypoglycemia Stop: 06/14/19 07:36 Glucagon (Glucagen) 1 mg IM ONCE PRN PRN Reason: Hypoglycemia Stop: 06/14/19 07:36 Glucose (Gluctose) 15 gm PO ONCE PRN PRN Reason: Hypoglycemia Stop: 06/14/19 07:36 Glucose (Gluctose) 30 gm PO ONCE PRN PRN Reason: Hypoglycemia Stop: 06/14/19 07:36 Dextrose (Dextrose 5%) 1,000 mls @ 100 mls/hr IVC .Q10H PRN PRN Reason: HYPOGLYCEMIA Stop: 06/14/19 07:36 Sodium Chloride (0.9 % Sodium Chloride) 250 mls @ 937.5 mls/hr IVC .Q16M PRN PRN Reason: Hypotension Stop: 06/14/19 10:23 Sodium Chloride (0.9 % Sodium Chloride) 1,000 mls @ 0 mls/hr PRIME .Q0M DEDE Stop: 06/14/19 10:31 Insulin Detemir (Levemir) 14 unit 0.15 unit/kg (14 unit) SQ HS [facility] Stop: 06/14/19 21:01 Insulin Human Lispro (Humalog) 0 units SQ Q6HR DEDE; Protocol Stop: 06/14/19 12:01 Naloxone HCl (Narcan) 0.4 mg IVP Q2MPRN PRN PRN Reason: SEE COMMENTS Stop: 06/14/19 06:20 Nitroglycerin (Nitroglycerin) 0.4 mg SL Q5MIN PRN PRN Reason: Chest Pain Stop: 06/14/19 05:17 Oxycodone HCl (Oxycodone Oral Conc) 5 mg SL Q4H PRN; Protocol PRN Reason: mild to moderate pain Stop: 06/14/19 06:20 Pharmacy Profile Note (Patient Taking Own Medication) 0 each PO DAILY [facility] Stop: 06/14/19 09:01 Last Admin: 12/13/18 09:36 Dose: Not Given Documented by: Ranolazine (Ranexa) 1,000 mg PO BID [facility] Stop: 06/14/19 09:01 Last Admin: 12/13/18 09:36 Dose: 1,000 mg Documented by: Sucralfate (Carafate) 1 gm PO QID [facility] Stop: 06/14/19 09:01 Last Admin: 12/13/18 09:36 Dose: 1 gm Documented by: - Imaging and Cardiology Stress Test: report reviewed Echo: report reviewed Cardiac cath: report reviewed - EKG Interpretation EKG results cardiology: personally reviewed (SR, old inferior infarct), other (12 hr tele AVG HR 93, SR) Consult Discharge Plan - Plan Referrals: Fausto Jacques MD [Primary Care Provider] -
--- NOTE | 2018-12-13 11:19 | Nephrology Consult Note ---
Date of Encounter: 12/13/18 Time of Encounter: 11:17 Assessment and Plan (1) ESRD (end stage renal disease) on dialysis Current Visit: No Status: Chronic HD MWF. Renal vitamins. Renal dose medications. Renal diet. Additional dialysis and ultrafiltration as needed. The patient was seen on dialysis. (2) Hypertensive urgency Current Visit: Yes Status: Acute Should improve with dialysis. Resume home medication and titrate blood pressure medication as needed. (3) Left leg paresthesias Current Visit: Yes Status: Acute Per the primary team. Neurology consult. (4) Anemia Current Visit: No Status: Acute Qualifiers: Qualified Code(s): D64.9 - Anemia, unspecified (5) Depressed affect Current Visit: No Status: Acute (6) Obesity (BMI 30.0-34.9) Current Visit: No Status: Chronic History of Present Illness - Reason for Consult Consult date: 12/13/18 end stage renal disease - Chief Complaint esrd mwf - History of Present Illness Mr. Hernandez is a 53-year-old gentleman with a history of end-stage renal disease who receives dialysis on a Thursday schedule at the [facility] hemodialysis center in [facility] under the direction of [place] [facility]. He presents for evaluation of left sided numbness. The patient is well known to our service from multiple hospital admissions for various reasons. At the time of my evaluation he denies chest pain, shortness of breath, nausea, or vomiting. The remainder of his review of systems either negative or stable. 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 Type II Diabetic,severe esophagitis, hiatal hernia Psychiatric history: no psych history - Past Surgical History Surgical History: angioplasty/stent Additional surgical history: Prostate surgery (TURP), left arm av shunt. Right lung surgery - chest tube still in place - Social History Smoking Status: Never smoker Smokeless Tobacco Status: No Alcohol use: none Drug use: none - Family History Mother Adopted: No Living Status: Hx Family Cardiac Disorders: Yes (mother stroke) Hx Family Respiratory Disorders: Yes (Dad asthma copd) Hx Family Cancer: Yes (prostate, pancreatic) Hx Family GI Disorders: No Hx Family Endocrine Disorder: Yes (DM) Hx Family Neuromuscular Disorders: No Hx Family Neurologic Disorders: No Hx Family HEENT Disorders: No Hx Family Autoimmune Disorders: No Father Adopted: No Family Member Ethnicity: Non- Living Status: Hx Family Cardiac Disorders: Yes (father, stents) Hx Family Respiratory Disorders: Yes (father COPD) Hx Family Cancer: Yes (Father prostate cancer uncle colon) Hx Family GI Disorders: No Hx Family Endocrine Disorder: Yes (dM) Hx Family Neuromuscular Disorders: No Hx Family Neurologic Disorders: No Hx Family HEENT Disorders: No Hx Family Autoimmune Disorders: No Medications and Allergies Aspirin [Lo-Dose Aspirin EC] 81 mg PO DAILY 07/30/17 [History] Calcium Carbonate [Calcium] 600 mg PO QAM 07/26/18 [History] Nitroglycerin [Nitrostat] 0.4 mg SL Q5MIN PRN 11/09/18 [History] Ranolazine [Ranexa] 1,000 mg PO BID 11/09/18 [History] Ondansetron HCl [Zofran] 4 mg PO Q8HR PRN 5 Days #15 tab 11/19/18 [Rx] Dexlansoprazole [Dexilant] 30 mg PO DAILY 11/30/18 [History] Insulin Glargine,Hum.rec.anlog [Basaglar Kwikpen U-100] 10 unit SQ HS 11/30/18 [History] Meclizine [Antivert] 12.5 mg PO BID PRN 11/30/18 [History] Sucralfate [Carafate] 1 gm PO QID 11/30/18 [History] Doxycycline 100 mg PO BID #14 capsule 12/07/18 [Rx] Allergy/AdvReac Type Severity Reaction Status Date / Time No Known Allergies Allergy Verified 12/07/18 09:54 Review of Systems All Systems: reviewed and no additional remarkable complaints except as stated (As documented in the history of present illness) Exam - Vital Signs Vital signs: Initial Vital Signs Temp Pulse Resp BP Pulse Ox 98.7 F 108 20 206/93 94 12/13/18 01:54 12/13/18 01:54 12/13/18 01:54 12/13/18 01:54 12/13/18 01:54 Vital Signs - Last 8 Hours Temp Pulse Resp BP Pulse Ox 12/13/18 07:25 98.7 F 95 16 174/92 98 12/13/18 05:00 98.5 F 97 16 189/99 97 12/13/18 04:02 20 180/81 Intake and Output 12/12/18 12/13/18 12/13/18 23:59 07:59 15:59 Output Total 300 / 300 Balance -300 / -300 Output: Urine 300 / 300 Other: Weight 97.522 kg Blood Glucose* 208 Patient Weight 12/13/18 23:59 Weight 97.522 kg - General Appearance General appearance: well-developed, well-nourished EENT: ATNC Neck: supple Respiratory: clear Cardiology: no edema, regular rate - Dialysis Access Dialysis Vascular Access: Arteriovenous Fistula (Left forearm) thrill: Yes bruit: Yes Gastrointestinal: no tenderness Integumentary: warm and dry Neurologic: alert and oriented x3 Musculoskeletal: no cyanosis Psychiatric: depressed Results - Lab Results 12/13/18 02:34 12/13/18 07:28 Most recent lab results 12/13/18 12/13/18 02:34 07:28 Calcium 8.3 L 8.1 L Consult Discharge Plan - Plan Referrals: Fausto Jacques MD [Primary Care Provider] -
--- NOTE | 2018-12-13 11:59 | Neurology - Consult Note ---
Date of Encounter: 12/13/18 Time of Encounter: 11:40 Assessment and Plan (1) Left-sided weakness Current Visit: No Status: Acute Patient has developed left-sided weakness and paresthesia, sparing his left face. Left arm weakness and may be complicated by presence of arm pain. Neurological examination demonstrated subtle weakness to the left arm but no pronator drift. There is also slightly reduced pinprick sensation to left arm and leg but not involving left face. Symptoms not typical for a stroke however, I would agree to obtain MRI of the brain to assess possibility of lacunar infarct. If MRI of the brain returns positive for new stroke then a full stroke workup will be warranted. I would also recommend MRI of the cervical spine to assess possibility of cervical radiculopathy causing arm pain. Please continue medical and supportive care History of Present Illness Chief complaint: left sided weakness/numbness HPI: Mr. Hernandez is a 53 year old male with past medical history significant for diabetes, end-stage renal failure, on hemodialysis, congestive heart failure, who developed acute onset of left-sided numbness and pain. Patient states that he developed pain involving his left shoulder and also numbness involving the left arm and leg although symptoms are more severe in his left arm. He does not have numbness to his left face. He reports that the symptoms are new. He also reports slight weakness involving the left arm and leg although this could be c omplicated by presence of pain. I did not notice that the patient has hammertoes and high arched feet bilaterally. Patient reports no family history of [id number]-[id number] disease. He states that he is only 1 in his family that is left with hammertoes and high arched feet. He reports no numbness and loss of sensation to his feet bilaterally. 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 Type II Diabetic,severe esophagitis, hiatal hernia Psychiatric history: no psych history - Past Surgical History Surgical History: angioplasty/stent Additional surgical history: Prostate surgery (TURP), left arm av shunt. Right lung surgery - chest tube still in place - Social History Smoking Status: Never smoker Smokeless Tobacco Status: No Alcohol use: none Drug use: none - Family History Mother Adopted: No Living Status: Hx Family Cardiac Disorders: Yes (mother stroke) Hx Family Respiratory Disorders: Yes (Dad asthma copd) Hx Family Cancer: Yes (prostate, pancreatic) Hx Family GI Disorders: No Hx Family Endocrine Disorder: Yes (DM) Hx Family Neuromuscular Disorders: No Hx Family Neurologic Disorders: No Hx Family HEENT Disorders: No Hx Family Autoimmune Disorders: No Father Adopted: No Family Member Ethnicity: Non- Living Status: Hx Family Cardiac Disorders: Yes (father, stents) Hx Family Respiratory Disorders: Yes (father COPD) Hx Family Cancer: Yes (Father prostate cancer uncle colon) Hx Family GI Disorders: No Hx Family Endocrine Disorder: Yes (dM) Hx Family Neuromuscular Disorders: No Hx Family Neurologic Disorders: No Hx Family HEENT Disorders: No Hx Family Autoimmune Disorders: No Medications and Allergies Aspirin [Lo-Dose Aspirin EC] 81 mg PO DAILY 07/30/17 [History] Calcium Carbonate [Calcium] 600 mg PO QAM 07/26/18 [History] Nitroglycerin [Nitrostat] 0.4 mg SL Q5MIN PRN 11/09/18 [History] Ranolazine [Ranexa] 1,000 mg PO BID 11/09/18 [History] Ondansetron HCl [Zofran] 4 mg PO Q8HR PRN 5 Days #15 tab 11/19/18 [Rx] Dexlansoprazole [Dexilant] 30 mg PO DAILY 11/30/18 [History] Insulin Glargine,Hum.rec.anlog [Basaglar Kwikpen U-100] 10 unit SQ HS 11/30/18 [History] Meclizine [Antivert] 12.5 mg PO BID PRN 11/30/18 [History] Sucralfate [Carafate] 1 gm PO QID 11/30/18 [History] Doxycycline 100 mg PO BID #14 capsule 12/07/18 [Rx] Allergy/AdvReac Type Severity Reaction Status Date / Time No Known Allergies Allergy Verified 12/07/18 09:54 All Systems: The remainder of the systems were reviewed and are negative - Constitutional Constitutional ROS IM: as per HPI - Nose, Mouth, Throat Nose, mouth and throat: abnormal hearing (no), change in voice (no), disequilibrium (no) - Cardiovascular Cardiovascular ROS IM: chest pain (yes), claudication (no), diaphoresis (no) - Respiratory Respiratory IM: cough (no), dyspnea (no) - Gastrointestinal Gastrointestinal: abdominal pain (no), belching (no), bloating (no) - Musculoskeletal Musculoskeletal ROS IM: abnormal gait (no), arthralgias (no), atrophy (no), back pain (yes), muscle weakness (yes), numbness (yes) - Neurological Neurological ROS: abnormal gait (no), abnormal hearing (no), abnormal movements (no), abnormal speech (no), numbness (yes), radicular pain (yes) - Psychiatric Psychiatric general PM: abnormal sleep pattern (no), anhedonia (no), auditory hallucinations (no) Physical Examination - Vital Signs Vital Signs: Initial Vital Signs Temp Pulse Resp BP Pulse Ox 98.7 F 108 20 206/93 94 12/13/18 01:54 12/13/18 01:54 12/13/18 01:54 12/13/18 01:54 12/13/18 01:54 - Constitutional General appearance: chronically ill - Neurologic Sensorimotor examination: intact (except left hand and arm are numb) Detailed motor examination: full strength in all major muscle groups Motor examination - right side: 5/5: deltoids, biceps, triceps, wrist flexion, wrist extension, sales technician home theater, hip flexors, tibialis Anterior, quadriceps, toe extension (EHL), plantarflexion Motor examination - left side: 5/5: deltoids, biceps, triceps, wrist flexion, wrist extension, hip flexors, sales technician home theater, quadriceps, tibialis Anterior, toe extension (EHL), plantarflexion Detailed sensory examination: other (Left hand is numb) Reflexes: Biceps: 1+, Triceps: 1+, Brachioradialis: 1+, Patella: 1+, Achilles: 1+ Mental Status Examination: awake, alert, oriented to person, oriented to place, oriented to time, follows commands appropriately, answers questions appropriately, no agnosia, no aphasia, no aproxia Cranial nerve examination: PERRL, EOMI, visual robles intact, corneal reflexes brisk symmetrically, sensory to face intact, mastication intact, no facial asymmetry is present, no dysarthria, hearing is intact symmetrically, soft palate elevates bilaterally upon phonation, gag reflex intact, flexes SCM and trapezius muscles symmetrically with full power, tongue protrudes midline, no atrophy or facial fasiculations present Results - Laboratory Findings CBC and BMP: 12/13/18 02:34 12/13/18 07:28 Abnormal lab findings: Abnormal lab results RBC 3.48 M/mcL (4.19-5.50) L 12/13/18 02:34 Hgb 10.4 g/dL (12.9-16.9) L 12/13/18 02:34 Hct 31.3 % (37.5-50.1) L 12/13/18 02:34 MPV 8.7 fL (9.4-12.4) L 12/13/18 02:34 Chloride 97 mEq/L (98-107) L 12/13/18 02:34 BUN 62 mg/dL (6-20) H 12/13/18 07:28 Creatinine 7.51 mg/dL (0.70-1.30) H 12/13/18 07:28 Est GFR ( Amer) 9 (> 60) L 12/13/18 07:28 Est GFR (Non-Af Amer) 8 (> 60) L 12/13/18 07:28 Glucose 204 mg/dL (70-105) H 12/13/18 07:28 POC Glucose 232 mg/dL (70-99) H 12/13/18 02:05 Calculated Osmolality 307 (280-300) H 12/13/18 07:28 Calcium 8.1 mg/dL (8.6-10.3) L 12/13/18 07:28 Total Bilirubin 0.2 mg/dL (0.3-1.0) L 12/13/18 07:28 AST 9 Units/L (13-39) L 12/13/18 07:28 ALT 5 Units/L (7-52) L 12/13/18 07:28 Troponin I 0.06 ng/mL (< 0.04) H* 12/13/18 07:28 Albumin 3.3 g/dL (3.5-5.7) L 12/13/18 07:28 Albumin/Globulin Ratio 1.0 (1.1-2.2) L 12/13/18 07:28 LDL Cholesterol, Calc 100 mg/dL (0-99) H 12/13/18 07:28 HDL Cholesterol 35 mg/dL (40-59) L 12/13/18 07:28 Urine Clarity Cloudy (Clear) A 12/13/18 03:34 Urine pH 8.5 pH Units (5.0-8.0) H 12/13/18 03:34 Urine Protein >=300 mg/dL (Neg-Trace) H 12/13/18 03:34 Urine Glucose (UA) 500 mg/dL (Normal) H 12/13/18 03:34 Urine Blood Moderate (Negative) H 12/13/18 03:34 Urine Microscopic RBC 30-50 per hpf (0-3) H 12/13/18 03:34 Urine Microscopic WBC TNTC per hpf (0-3) H 12/13/18 03:34 Urine Yeast Few per hpf (None Seen) H 12/13/18 03:34 Ur Culture Indicated? YES (NO) A 12/13/18 03:34 Hep Bs Antibody 4.63 mIU/mL (10.00-) L 12/13/18 07:28 - Diagnostic Findings Additional findings: CT OF THE HEAD WITHOUT CONTRAST - STROKE ALERT 12/13/2018 2:23 am TECHNIQUE: CT of the head was performed without the administration of intravenous contrast. Dose modulation, iterative reconstruction, and/or weight based adjustment of the mA/kV was utilized to reduce the radiation dose to as low as reasonably achievable. COMPARISON: MRI brain from 08/04/2018 HISTORY: ORDERING SYSTEM PROVIDED HISTORY: stroke alert FINDINGS: BRAIN/VENTRICLES: No acute blood products, shift of the midline structures, or CT evidence of acute infarct. The ventricular system is normal in size and configuration. Scattered foci of low attenuation involving the periventricular white matter compatible with microvascular ischemic changes. ORBITS: The visualized portion of the orbits demonstrate no acute abnormality. SINUSES: The visualized paranasal sinuses and mastoid air cells demonstrate no acute abnormality. SOFT TISSUES/SKULL: No acute abnormality of the visualized skull or soft tissues. CT/CT stroke alert head wo con IMPRESSION: No CT findings of acute infarct. If concern for ischemia/infarct persists, MRI should be obtained. Critical results were called by Dr. Tyrone Urena to Dr. Mehnaz Rios on 12/13/2018 at 02:33. D/ / 12/13/2018 07:45:45 Tyrone Urena / earnold Interpreting Provider: Tyrone Urena Consult Discharge Plan - Plan Referrals: Fausto Jacques MD [Primary Care Provider] -
[2018-12-13] MEDS: Insulin LISPRO 300 UNITS/3 ML VIAL SQ SCH ×3 (12:35→21:19)
[2018-12-13] MEDS: Isosorbide MONOnitrate (24 HR) 30 MG TAB.ER.24H PO SCH (16:18)
[2018-12-13] MEDS: Insulin DETEMIR 100 UNIT/ML X5UNITS SQ SCH (21:09)
[2018-12-13] MEDS ORDERED: *HR* Promethazine 25 MG/ML VIAL IVP ONE (21:32)
[2018-12-14 04:13] LABS: Basophils # 0.1 K/mcL (0.0-0.2); Basophils % 0.7 %; Eosinophils # 0.2 K/mcL (0.0-0.6); Hematocrit 33.7 % (37.5-50.1); Hemoglobin 10.8 g/dL (12.9-16.9); Immature Granulocytes % 0.5 % (0-4); Lymphocytes # 2.1 K/mcL (0.6-4.6); Lymphocytes % 25.8 %; Mean Corpuscular Volume 93.6 fL (83.0-100.0); Mean Platelet Volume 8.9 fL (9.4-12.4); Monocytes # 0.8 K/mcL (0.0-1.3); Monocytes % 9.3 %; Platelet Count 293 K/mcL (140-400); Red Cell Distribution Width 14.4 % (11.5-14.5); Segmented Neutrophils % 61.7 %; White Blood Count 8.1 K/mcL (4.3-11.1)
[2018-12-14 04:32] LABS: Calcium 8.6 mg/dL (8.6-10.3); Potassium 4.5 mEq/L (3.5-5.1)
[2018-12-14] MEDS: Sucralfate 1 GM TABLET PO SCH (08:23)
[2018-12-14] MEDS: Aspirin Enteric Coated 81 MG Tablet PO SCH (08:23)
[2018-12-14] MEDS: Ranolazine 500 MG TAB.ER.12H PO SCH ×2 (08:23→20:17)
[2018-12-14] MEDS: Isosorbide MONOnitrate (24 HR) 30 MG TAB.ER.24H PO SCH (08:24)
[2018-12-14] MEDS: Insulin LISPRO 300 UNITS/3 ML VIAL SQ SCH ×4 (08:24→20:11)
[2018-12-14] MEDS ORDERED: Ondansetron 4 MG/2 ML VIAL IVP PRN (08:33)
[2018-12-14 10:24] LABS: Estimated Average Glucose 148 mg/dl
--- NOTE | 2018-12-14 11:01 | Neurology Progress Note ---
Date of Encounter: 12/14/18 Time of Encounter: 10:52 Assessment and Plan (1) Left-sided weakness Current Visit: Yes Status: Acute Patient has developed left-sided weakness and paresthesia, sparing his left face. Neurological examination demonstrated subtle weakness to the left arm but no pronator drift. He has difficulty making a fist due to pain on hand flexion. Symptoms not typical for a stroke however, and MRI of the head and neck show mild degenerative changes. No further stroke workup warranted at this time. May benefit from either neuro as outpatient for EMG or sports medicine for follow up Subjective Principal diagnosis: Left sided weakness Interval history: Patient was seen and examined at bedside this morning. He states that he feels about the same as yesterday. He is still admitting to weakness and numbess in his left side. He is having difficulty making a fist on left due to pain. He otherwise has noted no changes. Objective - Constitutional Vitals: Temp Pulse Resp BP Pulse Ox 98.0 F 79 17 122/72 98 12/14/18 06:56 12/14/18 06:56 12/14/18 06:56 12/14/18 06:56 12/14/18 06:56 General appearance: Present: A&O X 3, pleasant, no acute distress, answers questions appropriately - Neurological Exam Sensorimotor examination: Present: intact (except left hand and arm are numb) Motor Examination: Present: full strength in all major muscle groups Motor examination - right side: 5/5: deltoids, biceps, triceps, wrist flexion, wrist extension, lei maker, hip flexors, tibialis Anterior, quadriceps, toe extension (EHL), plantarflexion Motor examination - left side: 3/5: lei maker (unable to make fist due to pain), 5/5: deltoids, biceps, triceps, wrist flexion, wrist extension, hip flexors, quadriceps, tibialis Anterior, toe extension (EHL), plantarflexion Sensation intact: Present: other (Left hand is numb) Mental Status Examination: Present: awake, alert, oriented to person, oriented to place, oriented to time, follows commands appropriately, answers questions appropriately, no agnosia, no aphasia, no aproxia Cranial nerve examination: Present: PERRL, EOMI, sensory to face intact, mastication intact, no facial asymmetry is present, no dysarthria, hearing is intact symmetrically, soft palate elevates bilaterally upon phonation, gag reflex intact, flexes SCM and trapezius muscles symmetrically with full power, tongue protrudes midline, no atrophy or facial fasiculations present Results - Laboratory Findings CBC and BMP: 12/14/18 03:54 12/14/18 03:54 Abnormal lab findings: Abnormal lab results RBC 3.60 M/mcL (4.19-5.50) L 12/14/18 03:54 Hgb 10.8 g/dL (12.9-16.9) L 12/14/18 03:54 Hct 33.7 % (37.5-50.1) L 12/14/18 03:54 MPV 8.9 fL (9.4-12.4) L 12/14/18 03:54 Chloride 97 mEq/L (98-107) L 12/14/18 03:54 BUN 45 mg/dL (6-20) H 12/14/18 03:54 Creatinine 5.28 mg/dL (0.70-1.30) H 12/14/18 03:54 Est GFR ( Amer) 14 (> 60) L 12/14/18 03:54 Est GFR (Non-Af Amer) 11 (> 60) L 12/14/18 03:54 Glucose 148 mg/dL (70-105) H 12/14/18 03:54 POC Glucose 153 mg/dL (70-99) H 12/14/18 06:55 Hemoglobin A1c 6.8 % (-5.6) H 12/14/18 03:54 Calculated Osmolality 307 (280-300) H 12/13/18 07:28 Calcium 8.1 mg/dL (8.6-10.3) L 12/13/18 07:28 Total Bilirubin 0.2 mg/dL (0.3-1.0) L 12/13/18 07:28 AST 9 Units/L (13-39) L 12/13/18 07:28 ALT 5 Units/L (7-52) L 12/13/18 07:28 Troponin I 0.06 ng/mL (< 0.04) H* 12/13/18 07:28 Albumin 3.3 g/dL (3.5-5.7) L 12/13/18 07:28 Albumin/Globulin Ratio 1.0 (1.1-2.2) L 12/13/18 07:28 LDL Cholesterol, Calc 100 mg/dL (0-99) H 12/13/18 07:28 HDL Cholesterol 35 mg/dL (40-59) L 12/13/18 07:28 Urine Clarity Cloudy (Clear) A 12/13/18 03:34 Urine pH 8.5 pH Units (5.0-8.0) H 12/13/18 03:34 Urine Protein >=300 mg/dL (Neg-Trace) H 12/13/18 03:34 Urine Glucose (UA) 500 mg/dL (Normal) H 12/13/18 03:34 Urine Blood Moderate (Negative) H 12/13/18 03:34 Urine Microscopic RBC 30-50 per hpf (0-3) H 12/13/18 03:34 Urine Microscopic WBC TNTC per hpf (0-3) H 12/13/18 03:34 Urine Yeast Few per hpf (None Seen) H 12/13/18 03:34 Ur Culture Indicated? YES (NO) A 12/13/18 03:34 Hep Bs Antibody 4.63 mIU/mL (10.00-) L 12/13/18 07:28 Consult Discharge Plan - Plan Referrals: Fausto Jacques MD [Primary Care Provider] -
--- NOTE | 2018-12-14 11:48 | Nephrology Progress Note ---
Date of Encounter: 12/14/18 Time of Encounter: 11:46 - Assessment and Plan (1) ESRD (end stage renal disease) on dialysis Current Visit: No Status: Chronic HD MWF. Renal vitamins. Renal dose medications. Renal diet. Additional dialysis and ultrafiltration as needed. Plan for HD tomorrow. (2) Depressed affect Current Visit: No Status: Acute Per primary. (3) Obesity (BMI 30.0-34.9) Current Visit: No Status: Chronic (4) Anemia Current Visit: No Status: Acute Hgb is 10.8, stable and within goal. Qualifiers: Qualified Code(s): D64.9 - Anemia, unspecified (5) Left leg paresthesias Current Visit: Yes Status: Acute Per the primary team. Neurology consult. (6) Hypertensive urgency Current Visit: Yes Status: Acute Should improve with dialysis. Resume home medication and titrate blood pressure medication as needed. Subjective Principal diagnosis: Left sided weakness Interval history: Pt seen and examined. Denies chest pain or shortness of breath. Denies nausea, vomiting, diarrhea. Admits to weakness to left side. Objective - Vital Signs Vital signs: Vital Signs Temp Pulse Resp BP Pulse Ox 12/14/18 06:56 98.0 F 79 17 122/72 98 12/14/18 03:52 97.9 F 75 18 124/82 96 12/13/18 23:37 98.2 F 78 18 108/72 98 12/13/18 19:21 98.0 F 89 116/67 98 12/13/18 15:50 98.4 F 96 16 111/76 98 12/13/18 14:56 97.9 F 18 109/59 12/13/18 14:30 98/49 12/13/18 14:15 101/50 12/13/18 14:00 109/53 12/13/18 13:45 114/61 12/13/18 13:30 99/51 12/13/18 13:15 118/69 12/13/18 13:00 99/51 12/13/18 12:45 154/82 12/13/18 12:30 164/77 12/13/18 12:15 148/70 12/13/18 12:00 134/69 Intake and Output 12/13/18 12/14/18 12/14/18 23:59 07:59 15:59 Intake Total 0 / 600 0 / 0 Output Total 0 / 3900 0 / 0 Balance 0 / -3300 0 / 0 Intake: Oral 0 / 0 0 / 0 Output: Urine 0 / 300 0 / 0 Other: Weight 98 kg Blood Glucose* 170 153 - General Appearance General appearance: Present: well-developed, well-nourished EENT: Present: ATNC, hearing intact, vision intact Neck: Present: supple Respiratory: Present: clear Cardiology: Present: no edema, normal S1, normal S2 Dialysis Vascular Access: Arteriovenous Fistula thrill: Yes bruit: Yes Gastrointestinal: Present: normoactive bowel sounds, no tenderness, no guarding Integumentary: Present: no rash, warm and dry Neurologic: Present: alert and oriented x3 Musculoskeletal: Present: no deformities, no erythema Psychiatric: Present: mood/affect appropriate, cooperative - Lab 12/14/18 03:54 12/14/18 03:54 Most recent lab results 12/14/18 03:54 Calcium 8.6 Consult Discharge Plan - Plan Referrals: Fausto Jacques MD [Primary Care Provider] -
--- NOTE | 2018-12-14 14:04 | Event Note ---
Date of Encounter: 12/14/18 Time of Encounter: 14:02 - Cardiology Event Note Limited TTE resulted--LVEF 50-55%. Moderate concentric left ventricular hypertrophy. No evidence of PFO with agitated saline contrast. Per previous progress note, since EF is preserved, recommend continued medical management. Cardiology signing off. Reconsult PRN.
--- NOTE | 2018-12-14 16:38 | Internal Med Progress Note ---
Hospitalist Progress Note - Encounter Date of Encounter: 12/14/18 Time of Encounter: 16:36 - Exam Vitals: Temp Pulse Resp BP Pulse Ox 98.3 F 17 76 116/69 97 12/14/18 15:10 12/14/18 15:10 12/14/18 15:10 12/14/18 15:10 12/14/18 15:10 Exam: General: A & O 3, In no acute distress HENNT: PERRLA. Head atraumatic and makes supple CVS S1 and S2 regular, no murmur RS: Clear to air entry bilaterally, no wheeze, no crackles Abdomen: Soft and nontender. Bowel sounds normal 4 Extremities: No cyanosis, clubbing, and edema Neurology: Cranial II through XII normal. Left upper and lower extremity stre ngth 3/5 and right UE ad LE strength 5/5. Numbness on left 4th and 5th finger - Assessment and Plan (1) Stroke-like episode Current Visit: Yes Status: Acute Assessment and Plan: Patient presented to the hospital with strokelike symptoms. Patient came in with left-sided chest pain, left upper extremity numbness and weakness, left leg numbness and weakness. Neurologic consultation none. Patient's CT head was negative. Patient MRI brain was negative patient's MRI cervical spine done after neurologic consultation for possible cervical radiculopathy. MRI cervical spine was negative for any severe spinal stenosis. Pt has limited echo done which was unremarkable. Patient symptoms improved over his hospital course. However he continued to have a left sided numbness and weakness on his left hand. Neurology recommended outpatient EMG/NCV outpatient Patient's ultrasound carotid Doppler was done. Prelim report mentioned left ICA 60% - 79% stenosis and right ICA non-stenotic. Vascular surgery consult placed. Await vascular surgery recommendation. (2) Chest pain Current Visit: Yes Status: Chronic Assessment and Plan: Patient reporting left-sided chest pain with positional component. Pt's troponin at baseline around 0.05, mild elevation likely due to end-stage renal disease. Patient's troponin was trended and it was adynamic. However, patient continued to have chest pain so cardiology consult was placed. After reviewing echo and after evaluation cardiology did not recommend any invasive testing. Advised to continue medical management for anti anginal medications. (3) Diabetes Current Visit: No Status: Chronic Assessment and Plan: Continue basal and bolus regimen.. (4) ESRD (end stage renal disease) Current Visit: No Status: Chronic Assessment and Plan: End-stage renal disease on hemodialysis Thursday, Thursday, Thursday. Nephrology on consult for dialysis. (5) DVT prophylaxis Current Visit: No Status: Acute - Time Spent with Patient Total time spent is greater than 50% in coordination of care (as documented) at patient's floor/unit and/or counseling patient: 25 - 35 minutes Plan of Care Discussed with: patient Internal Medicine: Result - Labs CBC & Chem 7: 12/14/18 03:54 12/14/18 03:54 Labs: Short CBC 12/14/18 Range/Units 03:54 WBC 8.1 (4.3-11.1) K/mcL Hgb 10.8 L (12.9-16.9) g/dL Hct 33.7 L (37.5-50.1) % Plt Count 293 (140-400) K/mcL Neutrophils # 5.0 (1.6-8.9) K/mcL BMP 12/14/18 03:54 Sodium 137 Potassium 4.5 Chloride 97 L Carbon Dioxide 26 BUN 45 H Creatinine 5.28 H Glucose 148 H Calcium 8.6 - ABG Interpretation ABG results: PT/INR, D-dimer PT 11.4 Seconds (9.4-12.1) 12/13/18 02:34 - Impressions Impressions Head CT 12/13/18 02:05 IMPRESSION: No CT findings of acute infarct. If concern for ischemia/infarct persists, MRI should be obtained. Critical results were called by Dr. Tyrone Urena to Dr. Mehnaz Rios on 12/13/2018 at 02:33. D/ / 12/13/2018 07:45:45 Tyrone Urena / jeffy Interpreting Provider: Tyrone Urena Brain MRI 12/14/18 05:06 IMPRESSION: 1. No acute infarct or acute intracranial process identified. 2. Stable cerebral volume loss and mild chronic small vessel ischemic changes. D/ / 12/14/2018 08:29:37 Alejandro Funes MD / Lucy Molina Interpreting Provider: Alejandro Funes MD Echocardiogram Limited Views 12/14/18 06:10 Impressions: LVEF 50-55%. Moderate concentric left ventricular hypertrophy. No evidence of PFO with agitated saline contrast. Left Ventricular Wall Motion: Rest Echo Findings All wall segments showed normal motion. Findings: Study Quality * Technically adequate exam. ECG Findings * Ectopic atrial rhythm. Left Ventricle * Moderate concentric left ventricular hypertrophy. * LVEF 50-55%. Interatrial Septum * No evidence of PFO with agitated saline contrast. Cervical Spine MRI 12/14/18 13:17 IMPRESSION: Mild degenerative changes of the cervical spine as described above without significant spinal canal stenosis or neural foraminal narrowing evident. D/ / 12/14/2018 08:25:45 Alejandor Funes MD / mercedes Interpreting Provider: Alejandro Funes MD Consult Discharge Plan - Plan Referrals: Fausto Jacques MD [Primary Care Provider] - (2) Chest pain Qualifiers: Chest pain type: unspecified Qualified Code(s): R07.9 - Chest pain, unspecified (3) Diabetes Qualifiers: Diabetes mellitus type: type 2 Diabetes mellitus residential insulin use: with out residential use Diabetes mellitus complication status: with kidney compl ications Diabetes mellitus complication detail: with chronic kidney disease Chronic kidney disease stage: on chronic dialysis Qualified Code(s): E11.22 - Type 2 diabetes mellitus with diabetic chronic kidney disease; N18.6 - End stage renal disease; Z99.2 - Dependence on renal dialysis
--- NOTE | 2018-12-14 18:12 | Vascular/Endovasc Consult Note ---
Date of Encounter: 12/14/18 Time of Encounter: 18:10 Assessment and Plan (1) Carotid stenosis, left Current Visit: Yes Status: Chronic The pathophysiology and natural history of carotid stenosis was discussed the patient and all questions were answered. The patient is asymptomatic 60-79% left internal carotid artery stenosis. His velocities are the lower end of range. He has no significant right internal carotid artery stenosis. The patient has a negative MRI. He does have some left hand paresthesias. He reports an episode of left hand weakness as well. The etiology of his symptoms is unclear but are not likely related to his carotid stenosis. The patient should continue with daily aspirin as well as statin. He should have a repeat carotid duplex in approximately 1 year. He was reminded seek immediate medical attention for any signs or symptoms of CVA, TIA or amaurosis fugax. (2) Hypertension Current Visit: No Status: Chronic Patient was counseled regarding atherosclerotic risk factor reduction. 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 use Diabetes mellitus complication status: with kidney complications Diabetes mellitus complication detail: with chronic kidney disease Chronic kidney disease stage: on chronic dialysis Qualified Code(s): E11.22 - Type 2 diabetes mellitus with diabetic chronic kidney disease; N18.6 - End stage renal disease; Z99.2 - Dependence on renal dialysis (4) ESRD (end stage renal disease) Current Visit: No Status: Chronic - History of Present Illness Consult date: 12/14/18 Requesting physician: Lavelle Wolff Consult reason: Carotid stenosis Chief complaint: Left-sided weakness History of present illness: Mr. Hernandez is a 53 year old male with a history of hypertension, end-stage renal disease on hemodialysis, diabetes and hyperlipidemia. The patient presented to [facility] with left-sided chest pain and left arm pain and severe hypertension. He is also noted to have a left had weakness. Endocrine evaluation including an MRI which revealed no evidence of acute intracranial e vent. He was admitted to [facility] further evaluation. Part of his evaluation he underwent a carotid duplex. He is found have significant left internal carotid artery stenosis. She denies any prior symptoms of a left hemispheric CVA, TIA or amaurosis fugax. He denies headaches, dizziness and visual disturbances. He reports is feeling better overall since admission has persistent weakness of the left hand he denies any shortness of breath. 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 Type II Diabetic,severe esophagitis, hiatal hernia Psychiatric history: no psych history - Past Surgical History Surgical History: angioplasty/stent Additional surgical history: Prostate surgery (TURP), left arm av shunt. Right lung surgery - chest tube still in place - Social History Smoking Status: Never smoker Smokeless Tobacco Status: No Alcohol use: none Drug use: none - Family History Mother Adopted: No Living Status: Hx Family Cardiac Disorders: Yes (mother stroke) Hx Family Respiratory Disorders: Yes (Dad asthma copd) Hx Family Cancer: Yes (prostate, pancreatic) Hx Family GI Disorders: No Hx Family Endocrine Disorder: Yes (DM) Hx Family Neuromuscular Disorders: No Hx Family Neurologic Disorders: No Hx Family HEENT Disorders: No Hx Family Autoimmune Disorders: No Father Adopted: No Family Member Ethnicity: Non- Living Status: Hx Family Cardiac Disorders: Yes (father, stents) Hx Family Respiratory Disorders: Yes (father COPD) Hx Family Cancer: Yes (Father prostate cancer uncle colon) Hx Family GI Disorders: No Hx Family Endocrine Disorder: Yes (dM) Hx Family Neuromuscular Disorders: No Hx Family Neurologic Disorders: No Hx Family HEENT Disorders: No Hx Family Autoimmune Disorders: No Medications and Allergies Aspirin [Lo-Dose Aspirin EC] 81 mg PO DAILY 07/30/17 [History] Calcium Carbonate [Calcium] 600 mg PO QAM 07/26/18 [History] Nitroglycerin [Nitrostat] 0.4 mg SL Q5MIN PRN 11/09/18 [History] Ranolazine [Ranexa] 1,000 mg PO BID 11/09/18 [History] Ondansetron HCl [Zofran] 4 mg PO Q8HR PRN 5 Days #15 tab 11/19/18 [Rx] Dexlansoprazole [Dexilant] 30 mg PO DAILY 11/30/18 [History] Insulin Glargine,Hum.rec.anlog [Marcelo Gonzalez U-100] 10 unit SQ HS 11/30/18 [History] Meclizine [Antivert] 12.5 mg PO BID PRN 11/30/18 [History] Sucralfate [Carafate] 1 gm PO QID 11/30/18 [History] Doxycycline 100 mg PO BID #14 capsule 12/07/18 [Rx] Allergy/AdvReac Type Severity Reaction Status Date / Time No Known Allergies Allergy Verified 12/07/18 09:54 All Systems Review: The remainder of the systems were reviewed and are negative - Constitutional Constitutional: no chills, no fever(s) Exam Vital Signs, Last 4 Hours Temp Pulse Resp BP Pulse Ox 12/14/18 15:10 98.3 F 17 76 116/69 97 General: Present: Conversant, No Apparent Distress, Well nourished HEENT: Present: Atraumatic, Normocephaly, Pupils equal Neck: Absent: JVD Cardiac: Present: Reg Rate and Rhythm Lungs: Present: Normal Breath Sounds, No Wheeze, Rales, Rhonchi Neuro: Present: Alert and responsive, Motor nerves grossly intact, Other (Left hand paresthesias) Abdomen: Present: Soft Vascular: Present: Normal capillary refill, Pulse, normal (Radial pulses palpable, palpable thrill at left upper extremity dialysis access site). Absent: Cyanosis, Edema Skin: Present: No rashes noted on visualized skin Consult Discharge Plan - Plan Referrals: Fausto Jacques MD [Primary Care Provider] -
[2018-12-14] MEDS: Insulin DETEMIR 100 UNIT/ML X5UNITS SQ SCH (20:17)
[2018-12-15] MEDS ORDERED: 0.9 % Sodium Chloride 250 ML IVC PRN (08:11)
[2018-12-15] MEDS ORDERED: 0.9 % Sodium Chloride 1,000 ML PRIME SCH (08:15)
[2018-12-15] MEDS: Insulin LISPRO 300 UNITS/3 ML VIAL SQ SCH ×2 (08:31→15:54)
[2018-12-15] MEDS: Ranolazine 500 MG TAB.ER.12H PO SCH (08:40)
[2018-12-15] MEDS: Isosorbide MONOnitrate (24 HR) 30 MG TAB.ER.24H PO SCH (08:40)
[2018-12-15] MEDS: Aspirin Enteric Coated 81 MG Tablet PO SCH (08:40)
--- NOTE | 2018-12-15 09:55 | Nephrology Progress Note ---
Date of Encounter: 12/15/18 Time of Encounter: 09:53 - Assessment and Plan (1) ESRD (end stage renal disease) on dialysis Current Visit: No Status: Chronic HD MWF. Renal vitamins. Renal dose medications. Renal diet. Additional dialysis and ultrafiltration as needed. HD in progress for today. (2) Depressed affect Current Visit: No Status: Acute Per primary. (3) Obesity (BMI 30.0-34.9) Current Visit: No Status: Chronic (4) Anemia Current Visit: No Status: Acute Goal hgb is 10-11, will monitor. Qualifiers: Qualified Code(s): D64.9 - Anemia, unspecified (5) Left leg paresthesias Current Visit: Yes Status: Acute Per the primary team. Neurology consult. (6) Hypertensive urgency Current Visit: Yes Status: Acute Should improve with dialysis. Resume home medication and titrate blood pressure medication as needed. Subjective Principal diagnosis: Left sided weakness Interval history: Pt seen and examined during HD, tolerating well. Denies chest pain or shortness of breath. Denies nausea, vomiting, diarrhea. Admits to weakness to left side. Objective - Vital Signs Vital signs: Vital Signs Temp Pulse Resp BP Pulse Ox 12/15/18 07:31 98.9 F 74 16 133/77 98 12/15/18 03:32 98.9 F 70 16 104/63 99 12/14/18 23:27 98.5 F 70 14 111/67 99 12/14/18 19:41 98.3 F 78 14 109/61 99 12/14/18 15:10 98.3 F 17 76 116/69 97 12/14/18 11:50 98.0 F 90 18 133/80 98 Intake and Output 12/14/18 12/15/18 12/15/18 23:59 07:59 15:59 Intake Total 240 / 480 0 / 0 Output Total 0 / 0 0 / 0 Balance 240 / 480 0 / 0 Intake: Oral 240 / 480 0 / 0 Output: Urine 0 / 0 0 / 0 Other: Weight 98.5 kg Blood Glucose* 163 89 Patient Weight 12/15/18 23:59 Weight 98.5 kg - General Appearance General appearance: Present: well-developed, well-nourished EENT: Present: ATNC, hearing intact, vision intact Neck: Present: supple Respiratory: Present: clear Cardiology: Present: no edema, normal S1, normal S2 Dialysis Vascular Access: Arteriovenous Fistula thrill: Yes bruit: Yes Gastrointestinal: Present: normoactive bowel sounds, no tenderness, no guarding Integumentary: Present: no rash, warm and dry Neurologic: Present: alert and oriented x3 Musculoskeletal: Present: no deformities, no erythema Additional Comments: Equal strength with exam. Psychiatric: Present: mood/affect appropriate, cooperative - Lab 12/15/18 12:35 12/15/18 12:35 Consult Discharge Plan - Plan Referrals: Fausto Jacques MD [Primary Care Provider] -
--- NOTE | 2018-12-15 11:09 | Electrocardiograph Report ---
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
[2018-12-15 12:58] LABS: Eosinophils % 2.2 %; Hematocrit 29.2 % (37.5-50.1); Hemoglobin 9.7 g/dL (12.9-16.9); Immature Granulocytes % 0.4 % (0-4); Lymphocytes % 23.2 %; Mean Corpuscular HGB Conc 33.2 g/dL (31.6-35.5); Mean Corpuscular Hemoglobin 29.9 pg (28.0-33.3); Mean Corpuscular Volume 90.1 fL (83.0-100.0); Mean Platelet Volume 8.8 fL (9.4-12.4); Monocytes % 9.1 %; Platelet Count 237 K/mcL (140-400); Red Blood Count 3.24 M/mcL (4.19-5.50); Red Cell Distribution Width 14.1 % (11.5-14.5); Segmented Neutrophils % 64.7 %; White Blood Count 5.1 K/mcL (4.3-11.1)
[2018-12-15 12:59] LABS: Basophils % 0.4 %; Eosinophils # 0.1 K/mcL (0.0-0.6); Lymphocytes # 1.2 K/mcL (0.6-4.6); Monocytes # 0.5 K/mcL (0.0-1.3); Neutrophils # 3.3 K/mcL (1.6-8.9)
[2018-12-15 14:01] LABS: Calcium 8.3 mg/dL (8.6-10.3); Potassium 3.1 mEq/L (3.5-5.1)
--- NOTE | 2018-12-15 15:27 | Discharge Summary ---
- NOTES TO OUTPATIENT PROVIDER Notes to Outpatient Provider: Patient has a 60 to 79% stenosis of Rt ICA. has been reviewed by vascular surgery and recommendation is for a follow up doppler ultrasound in a year. Date of Encounter: 12/15/18 Time of Encounter: 09:45 - Discharge Diagnosis (1) Stroke-like episode Priority: Primary Status: Acute Assessment and Plan: Patient presented to the hospital with strokelike symptoms. Patient came in with left-sided chest pain, left upper extremity numbness and weakness, left leg numbness and weakness. Neurologic consultation none. Patient's CT head was negative. Patient MRI brain was negative patient's MRI cervical spine done after neurologic consultation for possible cervical radiculopathy. MRI cervical spine was negative for any severe spinal stenosis. Pt has limited echo done which was unremarkable. Patient symptoms improved over his hospital course. However he continued to have a left sided numbness and weakness on his left hand. Neurology recommended outpatient EMG/NCV outpatient Patient's ultrasound carotid Doppler was done. Prelim report mentioned left ICA 60% - 79% stenosis and right ICA non-stenotic. Vascular surgery recommends follow up doppler ultrasound in a year. (2) Diabetes Priority: Secondary Status: Chronic Qualifiers: Diabetes mellitus type: type 2 Diabetes mellitus [facility] insulin use: without terminal make up operator use Diabetes mellitus complication status: with kidney complications Diabetes mellitus complication detail: with chronic kidney disease Chronic kidney disease stage: on chronic dialysis Qualified Code(s): E11.22 - Type 2 diabetes mellitus with diabetic chronic kidney disease; N18.6 - End stage renal disease; Z99.2 - Dependence on renal dialysis (3) ESRD (end stage renal disease) Priority: Secondary Status: Chronic (4) Chest pain Priority: Secondary Status: Chronic Qualifiers: Chest pain type: unspecified Qualified Code(s): R07.9 - Chest pain, unspecified (5) DVT prophylaxis Priority: Secondary Status: Acute Hospital course: Mr. Hernandez is a 53 year old male with past medical history of ESRD on HD, CAD and CHF presented with left -sided chest pain and left-sided numbness and weakness. After evaluating for a possible cardiac cause for the chest pain, cardriology recommended conservative management with antianginal medications. CT and MRI of brain were unremarkable for an acute stroke. MR neck and spine were also unremarkable. Neurology saw patient and recommend outpatient EMG/NCV. Carotid doppler USG revealed 60-79% stenosis of Rt ICA for which vasclar surgery recommends repeat utrasound in a year. Pateint will be discharged with some new medictions: Metoprolol, Imdur and atorvastatin. - Time Spent with Patient Total time spent providing and/or coordinating discharge services: - Discharge Medications Prescriptions: New Atorvastatin [Lipitor] 80 mg PO HS #30 tablet Metoprolol [Lopressor] 25 mg PO BID #60 tablet Isosorbide MONOnitrate (24 HR) [Imdur] 30 mg PO DAILY #30 tab.er.24h Phenazopyridine HCl [Pyridium] 200 mg PO TIDAC #12 tab Continued Aspirin [Lo-Dose Aspirin EC] 81 mg PO DAILY Calcium Carbonate [Calcium] 600 mg PO QAM Ranolazine [Ranexa] 1,000 mg PO BID Nitroglycerin [Nitrostat] 0.4 mg SL Q5MIN PRN PRN Reason: Chest Pain Ondansetron HCl [Zofran] 4 mg PO Q8HR PRN 5 Days #15 tab PRN Reason: Nausea And Vomiting Dexlansoprazole [Dexilant] 30 mg PO DAILY Insulin Glargine,Hum.rec.anlog [Basaglar Kwikpen U-100] 10 unit SQ HS Meclizine [Antivert] 12.5 mg PO BID PRN PRN Reason: DIZZINESS/NAUSEA Sucralfate [Carafate] 1 gm PO QID Discontinued Doxycycline 100 mg PO BID #14 capsule Home Medications: Aspirin [Lo-Dose Aspirin EC] 81 mg PO DAILY 07/30/17 [History] Calcium Carbonate [Calcium] 600 mg PO QAM 07/26/18 [History] Nitroglycerin [Nitrostat] 0.4 mg SL Q5MIN PRN 11/09/18 [History] Ranolazine [Ranexa] 1,000 mg PO BID 11/09/18 [History] Ondansetron HCl [Zofran] 4 mg PO Q8HR PRN 5 Days #15 tab 11/19/18 [Rx] Dexlansoprazole [Dexilant] 30 mg PO DAILY 11/30/18 [History] Insulin Glargine,Hum.rec.anlog [Basaglar Kwikpen U-100] 10 unit SQ HS 11/30/18 [History] Meclizine [Antivert] 12.5 mg PO BID PRN 11/30/18 [History] Sucralfate [Carafate] 1 gm PO QID 11/30/18 [History] Atorvastatin [Lipitor] 80 mg PO HS #30 tablet 12/15/18 [Rx] Isosorbide MONOnitrate (24 HR) [Imdur] 30 mg PO DAILY #30 tab.er.24h 12/15/18 [Rx] Metoprolol [Lopressor] 25 mg PO BID #60 tablet 12/15/18 [Rx] Phenazopyridine HCl [Pyridium] 200 mg PO TIDAC #12 tab 12/15/18 [Rx] Allergies/Adverse Reactions: Allergy/AdvReac Type Severity Reaction Status Date / Time No Known Allergies Allergy Verified 12/07/18 09:54 Date of admission: 12/13/18 04:01 Primary care physician: Fausto Jacques MD Consults: 12/13/18 05:06 Consult to Neurology [CONS] Routine Consulting Provider: Neurology [facility] Reason for Consult: TIA evaluation Call Completed: No 12/13/18 05:15 Consult to Nephrology [CONS] Routine Consulting Provider: Kidney [facility] Jo/MARGO/MAGDALENA/JUSTICE Reason for Consult: HD Thursday, Thursday, Thursday Call Completed: No 12/13/18 06:40 Consult to Physical Medicine/Rehab [CONS] Routine Consulting Provider: Jaquelin Dickey Reason for Consult: Left-sided upper and lower extremity weakness Call Completed: No 12/13/18 10:30 Consult to Dialysis [CONS] ONCE 12/13/18 10:31 Consult to Cardiology [CONS] Stat Comment: Consulting Provider: Cardiology Mary [facility] Reason for Consult: Chest pain Call Completed: Yes 12/14/18 15:43 Consult to Vascular Surgery [CONS] Stat Consulting Provider: Vascular [facility] Reason for Consult: Left ICA stenosis 60% to 79% Call Completed: Yes 12/15/18 08:15 Consult to Dialysis [CONS] ONCE - Constitutional Vitals: Temp Pulse Resp BP Pulse Ox 36.8 C 74 18 99/53 98 12/15/18 13:22 12/15/18 07:31 12/15/18 13:22 12/15/18 13:22 12/15/18 07:31 Exam: GENERAL: Not in distress. Alert and Oriented HEENT: EOMI, PERRLA MOUTH: Moist oral mucosa NECK:No JVD, No lymph nodes. CHEST AND LUNGS: Normal breath sounds, no wheezes or crackles HEART: S1 and S2 normal, no murmurs ABDOMEN: Soft, nontender, no organomegaly SKIN: Normal color, no rashes, no lesions EXTREMITIES: No deformity, no edema, no tenderness, no joint swelling or clubbing NEUROLOGICAL: Normal cognition, normal motor and sensory exam. - Patient Status Disposition: Home, Self-Care Condition: Fair Functional capacity at discharge: independent ambulation Overall status at discharge: patient is progressing back to baseline - Discharge Instructions Follow Up With: Fausto Jacques MD [Primary Care Provider] - - Diet and Activity Activity: resume usual activities as tolerated Diet: advance to your usual diet
[2018-12-15 15:54] VITALS: BP 118/76
== END 2018-12-15 18:22 | disposition home or self-care (01) ==
LOC: 2ANU 01:51 → EMEROOARM 01:51 → SUATTDRO 04:01 → 2ANU 04:30
PROVIDERS: ADMIT Internal Medicine; ATTEND Internal Medicine

== ENCOUNTER 2019-01-23 10:16 | Inpatient (IN) ==
[2019-01-23] MEDS ORDERED: Nitroglycerin 0.4 MG TAB.SUBL SL PRN ×2 (10:41→14:15)
[2019-01-23 11:46] LABS: Basophils % 0.4 %; Eosinophils # 0.1 K/mcL (0.0-0.6); Eosinophils % 1.7 %; Hematocrit 32.2 % (37.5-50.1); Hemoglobin 10.9 g/dL (12.9-16.9); Immature Granulocytes % 0.4 % (0-4); Lymphocytes # 1.2 K/mcL (0.6-4.6); Lymphocytes % 14.7 %; Mean Corpuscular HGB Conc 33.9 g/dL (31.6-35.5); Mean Corpuscular Hemoglobin 31.5 pg (28.0-33.3); Mean Corpuscular Volume 93.1 fL (83.0-100.0); Mean Platelet Volume 8.7 fL (9.4-12.4); Monocytes # 0.7 K/mcL (0.0-1.3); Monocytes % 8.6 %; Neutrophils # 6.2 K/mcL (1.6-8.9); Platelet Count 294 K/mcL (140-400); Red Blood Count 3.46 M/mcL (4.19-5.50); Red Cell Distribution Width 14.6 % (11.5-14.5); Segmented Neutrophils % 74.2 %; White Blood Count 8.3 K/mcL (4.3-11.1)
[2019-01-23] MEDS ORDERED: Isovue-370 500 ML BOTTLE IVP ONE (11:58)
[2019-01-23 12:10] LABS: Calcium 8.1 mg/dL (8.6-10.3); Troponin I 0.08 ng/mL (< 0.04)
[2019-01-23] MEDS ORDERED: Azithromycin 500 MG in D5% in Water 250 ML IVPB STA (13:23)
[2019-01-23] MEDS ORDERED: Piperacillin/Tazobactam 3.375 GM in 0.9 % Sodium Chloride Mini Bag 100 ML IVPB ONE (13:23)
[2019-01-23] MEDS ORDERED: Calcium Gluconate 1gm/50mL 1 GM/50 ML BAG IVPB ONE ×2 (13:25→13:37)
[2019-01-23] MEDS ORDERED: Aminoglycoside Consult 1 EACH MC ONE (14:07)
[2019-01-23] MEDS ORDERED: Ondansetron ODT 4 MG TAB.RAPDIS SL PRN (14:12)
[2019-01-23] MEDS ORDERED: Naloxone 0.4 MG/ML INJ IVP PRN (14:12)
[2019-01-23] MEDS ORDERED: *HR* Dextrose 50 % in Water (Syg) 50 ML SYRINGE IVP PRN (14:16)
[2019-01-23] MEDS ORDERED: Dextrose Gel 15 GM/37.5 ML TUBE PO PRN ×2 (14:16)
[2019-01-23] MEDS ORDERED: D5% in Water 1,000 ML IVC PRN (14:16)
[2019-01-23] MEDS ORDERED: Vancomycin (wt based) 1,000 MG VIAL IVPB SCH (15:00)
[2019-01-23] MEDS: Insulin LISPRO 300 UNITS/3 ML VIAL SQ SCH ×2 (16:29→20:39)
[2019-01-23] MEDS: Piperacillin/Tazobactam 3.375 GM in 0.9 % Sodium Chloride Mini Bag 100 ML IVPB SCH (16:33)
[2019-01-23] MEDS: Sucralfate 1 GM TABLET PO SCH ×2 (16:33→20:39)
[2019-01-23] MEDS ORDERED: Isosorbide MONOnitrate (24 HR) 30 MG TAB.ER.24H PO ONE (17:00)
[2019-01-23] MEDS: Acetaminophen 325 MG TABLET PO PRN (18:36)
[2019-01-23] MEDS: Ranolazine 500 MG TAB.ER.12H PO SCH (20:39)
[2019-01-23] MEDS: Insulin DETEMIR 100 UNIT/ML X5UNITS SQ SCH (20:40)
[2019-01-23] MEDS: *HR* HYDROcodone/Acet 5/325 mg TABLET PO PRN (20:58)
[2019-01-23 21:09] LABS: Bilirubin,Urine Negative (Negative); Blood,Urine Trace (Negative); Clarity,Urine Clear (Clear); Color,Urine Yellow (Yellow); Glucose,Urine (UA) 500 mg/dL (Normal); Ketones,Urine Negative (Negative); Leukocyte Esterase,Urine Negative (Negative); Nitrite,Urine Negative (Negative); PH,Urine 7.5 pH Units (5.0-8.0); Protein,Urine >=300 mg/dL (Neg-Trace); Urobilinogen,Urine Normal (Normal)
[2019-01-23 21:21] LABS: RBC,Urine 0-3 per hpf (0-3)
[2019-01-23 21:42] LABS: Influenza A PCR Negative (Negative); Influenza B PCR Negative (Negative); Resp. Syncytial Virus PCR Negative (Negative)
[2019-01-23] MEDS: Levalbuterol Neb 1.25 MG/3 ML IH SCH (23:55)
[2019-01-24 02:43] LABS: Hematocrit 30.7 % (37.5-50.1); Hemoglobin 10.2 g/dL (12.9-16.9); Mean Corpuscular HGB Conc 33.2 g/dL (31.6-35.5); Mean Corpuscular Hemoglobin 30.6 pg (28.0-33.3); Mean Corpuscular Volume 92.2 fL (83.0-100.0); Mean Platelet Volume 8.8 fL (9.4-12.4); Platelet Count 295 K/mcL (140-400); Red Blood Count 3.33 M/mcL (4.19-5.50); Red Cell Distribution Width 14.8 % (11.5-14.5); White Blood Count 6.8 K/mcL (4.3-11.1)
[2019-01-24 03:05] LABS: Calcium 7.8 mg/dL (8.6-10.3); Magnesium 1.6 mg/dL (1.6-2.6)
[2019-01-24] MEDS: Levalbuterol Neb 1.25 MG/3 ML IH SCH ×4 (03:51→22:18)
[2019-01-24] MEDS: *HR* HYDROcodone/Acet 5/325 mg TABLET PO PRN ×3 (04:38→22:56)
[2019-01-24] MEDS: Piperacillin/Tazobactam 3.375 GM in 0.9 % Sodium Chloride Mini Bag 100 ML IVPB SCH ×2 (06:09→17:35)
[2019-01-24] MEDS ORDERED: 0.9 % Sodium Chloride 250 ML IVC PRN (08:04)
[2019-01-24] MEDS: Insulin LISPRO 300 UNITS/3 ML VIAL SQ SCH ×4 (08:11→22:45)
[2019-01-24] MEDS: Isosorbide MONOnitrate (24 HR) 30 MG TAB.ER.24H PO SCH (08:11)
[2019-01-24] MEDS ORDERED: 0.9 % Sodium Chloride 1,000 ML ONE (08:11)
[2019-01-24] MEDS: Ranolazine 500 MG TAB.ER.12H PO SCH ×2 (08:11→23:10)
[2019-01-24] MEDS: Azithromycin 250 MG TABLET PO SCH (08:12)
[2019-01-24] MEDS: Aspirin Enteric Coated 81 MG Tablet PO SCH (08:12)
[2019-01-24] MEDS: Sucralfate 1 GM TABLET PO SCH ×4 (08:14→22:39)
[2019-01-24] MEDS ORDERED: 0.9 % Sodium Chloride 1,000 ML PRIME SCH (08:15)
[2019-01-24] MEDS ORDERED: Isosorbide MONOnitrate (24 HR) 30 MG TAB.ER.24H PO SCH (09:00)
[2019-01-24] MEDS: Acetaminophen 325 MG TABLET PO PRN (11:30)
[2019-01-24] MEDS ORDERED: Azithromycin 500 MG in 0.9 % Sodium Chloride 250 ML IVPB SCH (12:00)
[2019-01-24 12:11] LABS: Hepatitis B Surface Antibody 3.92 mIU/mL
[2019-01-24 12:21] LABS: Hepatitis B Surface Antigen Nonreactive (Nonreactive)
[2019-01-24] MEDS: *HR* Heparin 5,000 UNIT/ML VIAL SQ SCH ×2 (15:09→22:49)
[2019-01-24 15:18] LABS: Hematocrit 31.7 % (37.5-50.1); Hemoglobin 10.6 g/dL (12.9-16.9); Mean Corpuscular HGB Conc 33.4 g/dL (31.6-35.5); Mean Corpuscular Volume 92.7 fL (83.0-100.0); Mean Platelet Volume 8.8 fL (9.4-12.4); Platelet Count 287 K/mcL (140-400); Red Blood Count 3.42 M/mcL (4.19-5.50); Red Cell Distribution Width 14.8 % (11.5-14.5); White Blood Count 5.6 K/mcL (4.3-11.1)
[2019-01-24 15:43] LABS: Potassium 3.1 mEq/L (3.5-5.1)
[2019-01-24 15:44] LABS: Calcium 8.7 mg/dL (8.6-10.3); Thyroid Stimulating Hormone 3.457 mcIU/mL (0.340-5.600)
[2019-01-24] MEDS ORDERED: Perflutren Lipid Microsphere 1.3 ML in 0.9 % Sodium Chloride 8.7 ML IVP ONE (16:38)
[2019-01-24] MEDS: Insulin DETEMIR 100 UNIT/ML X5UNITS SQ SCH (22:44)
[2019-01-25] MEDS: Levalbuterol Neb 1.25 MG/3 ML IH SCH ×5 (03:38→21:52)
[2019-01-25] MEDS: *HR* Heparin 5,000 UNIT/ML VIAL SQ SCH ×3 (05:55→20:22)
[2019-01-25] MEDS: Piperacillin/Tazobactam 3.375 GM in 0.9 % Sodium Chloride Mini Bag 100 ML IVPB SCH ×2 (05:55→17:15)
[2019-01-25] MEDS: Ranolazine 500 MG TAB.ER.12H PO SCH ×2 (07:42→20:22)
[2019-01-25] MEDS: Azithromycin 250 MG TABLET PO SCH (07:42)
[2019-01-25] MEDS: Isosorbide MONOnitrate (24 HR) 30 MG TAB.ER.24H PO SCH (07:43)
[2019-01-25] MEDS: Aspirin Enteric Coated 81 MG Tablet PO SCH (07:43)
[2019-01-25] MEDS: Insulin LISPRO 300 UNITS/3 ML VIAL SQ SCH ×4 (07:43→20:21)
[2019-01-25] MEDS: Sucralfate 1 GM TABLET PO SCH ×4 (07:43→20:22)
[2019-01-25 10:49] LABS: Basophils % 0.8 %; Eosinophils # 0.2 K/mcL (0.0-0.6); Eosinophils % 3.1 %; Hematocrit 29.8 % (37.5-50.1); Hemoglobin 9.9 g/dL (12.9-16.9); Immature Granulocytes % 0.8 % (0-4); Lymphocytes # 1.2 K/mcL (0.6-4.6); Lymphocytes % 22.5 %; Mean Corpuscular HGB Conc 33.2 g/dL (31.6-35.5); Mean Corpuscular Hemoglobin 31.1 pg (28.0-33.3); Mean Corpuscular Volume 93.7 fL (83.0-100.0); Mean Platelet Volume 9.1 fL (9.4-12.4); Monocytes # 0.5 K/mcL (0.0-1.3); Monocytes % 9.6 %; Neutrophils # 3.3 K/mcL (1.6-8.9); Platelet Count 254 K/mcL (140-400); Red Blood Count 3.18 M/mcL (4.19-5.50); Red Cell Distribution Width 14.8 % (11.5-14.5); Segmented Neutrophils % 63.2 %; White Blood Count 5.2 K/mcL (4.3-11.1)
[2019-01-25 11:03] LABS: Platelet Estimate Normal (Normal)
[2019-01-25 11:21] LABS: Calcium 7.8 mg/dL (8.6-10.3); Potassium 6.1 mEq/L (3.5-5.1)
[2019-01-25] MEDS: Acetaminophen 325 MG TABLET PO PRN (12:28)
[2019-01-25 13:03] LABS: Calcium 7.8 mg/dL (8.6-10.3); Potassium 5.4 mEq/L (3.5-5.1)
[2019-01-25] MEDS: Insulin DETEMIR 100 UNIT/ML X5UNITS SQ SCH (21:27)
[2019-01-26] MEDS: Levalbuterol Neb 1.25 MG/3 ML IH SCH ×4 (04:03→22:45)
[2019-01-26] MEDS: *HR* HYDROcodone/Acet 5/325 mg TABLET PO PRN ×2 (04:49→11:43)
[2019-01-26] MEDS: *HR* Heparin 5,000 UNIT/ML VIAL SQ SCH ×3 (04:55→20:47)
[2019-01-26] MEDS: Piperacillin/Tazobactam 3.375 GM in 0.9 % Sodium Chloride Mini Bag 100 ML IVPB SCH (04:55)
[2019-01-26 06:19] LABS: Hematocrit 32.5 % (37.5-50.1); Hemoglobin 10.5 g/dL (12.9-16.9); Immature Granulocytes % 0.4 % (0-4); Lymphocytes % 25.1 %; Mean Corpuscular HGB Conc 32.3 g/dL (31.6-35.5); Mean Corpuscular Hemoglobin 31.2 pg (28.0-33.3); Mean Corpuscular Volume 96.4 fL (83.0-100.0); Mean Platelet Volume 9.1 fL (9.4-12.4); Platelet Count 258 K/mcL (140-400); Red Blood Count 3.37 M/mcL (4.19-5.50); Red Cell Distribution Width 14.8 % (11.5-14.5); Segmented Neutrophils % 60.9 %; White Blood Count 5.4 K/mcL (4.3-11.1)
[2019-01-26 06:20] LABS: Basophils % 0.6 %; Eosinophils # 0.2 K/mcL (0.0-0.6); Lymphocytes # 1.4 K/mcL (0.6-4.6); Monocytes # 0.5 K/mcL (0.0-1.3); Neutrophils # 3.3 K/mcL (1.6-8.9)
[2019-01-26 06:37] LABS: Calcium 7.7 mg/dL (8.6-10.3); Potassium 4.9 mEq/L (3.5-5.1)
[2019-01-26] MEDS ORDERED: 0.9 % Sodium Chloride 250 ML IVC PRN (08:04)
[2019-01-26] MEDS: Aspirin Enteric Coated 81 MG Tablet PO SCH (08:33)
[2019-01-26] MEDS: Sucralfate 1 GM TABLET PO SCH ×4 (08:33→20:46)
[2019-01-26] MEDS: Isosorbide MONOnitrate (24 HR) 30 MG TAB.ER.24H PO SCH (08:33)
[2019-01-26] MEDS: Insulin LISPRO 300 UNITS/3 ML VIAL SQ SCH ×4 (08:33→20:47)
[2019-01-26] MEDS: Ranolazine 500 MG TAB.ER.12H PO SCH ×2 (08:34→20:46)
[2019-01-26] MEDS: Azithromycin 250 MG TABLET PO SCH (08:34)
[2019-01-26] MEDS ORDERED: Amoxicillin/Clavulanate 500 MG TABLET PO SCH (17:00)
[2019-01-26] MEDS: Insulin DETEMIR 100 UNIT/ML X5UNITS SQ SCH (20:47)
[2019-01-26 23:03] LABS: Adenovirus F 40/41 PCR Not detected (Not detect); Astrovirus PCR Not detected (Not detect); C.difficile Toxin A/B Gene PCR Not detected (Not detect); Campylobacter by PCR Not detected (Not detect); Cryptosporidium by PCR Not detected (Not detect); Cyclospora cayetanensis PCR Not detected (Not detect); E. coli O157 by PCR Not detected (Not detect); Entamoeba histolytica PCR Not detected (Not detect); Enteroaggregative E.coli(EAEC) Not detected (Not detect); Enteropathogenic E.coli(EPEC) Not detected (Not detect); Enterotoxigenic E.coli (ETEC) Not detected (Not detect); Giardia lamblia PCR Not detected (Not detect); Norovirus GI/GII PCR Not detected (Not detect); Plesiomonas shigelloides PCR Not detected (Not detect); Rotavirus A PCR Not detected (Not detect); Salmonella PCR Not detected (Not detect); Sapovirus PCR Not detected (Not detect); Shig/EnteroinvasiveE coli EIEC Not detected (Not detect); Shigalike tox-prod E coli STEC Not detected (Not detect); Vibrio PCR Not detected (Not detect); Vibrio cholerae PCR Not detected (Not detect); Yersinia enterocolitica PCR Not detected (Not detect)
[2019-01-27] MEDS: Levalbuterol Neb 1.25 MG/3 ML IH SCH ×2 (03:22→11:22)
[2019-01-27] MEDS: *HR* Heparin 5,000 UNIT/ML VIAL SQ SCH (05:28)
[2019-01-27 06:31] VITALS: BP 168/97
[2019-01-27] MEDS: Insulin LISPRO 300 UNITS/3 ML VIAL SQ SCH (09:45)
[2019-01-27] MEDS: Sucralfate 1 GM TABLET PO SCH ×2 (09:49→12:03)
[2019-01-27] MEDS: Ranolazine 500 MG TAB.ER.12H PO SCH (09:49)
[2019-01-27] MEDS: Isosorbide MONOnitrate (24 HR) 30 MG TAB.ER.24H PO SCH (09:49)
[2019-01-27] MEDS: Azithromycin 250 MG TABLET PO SCH (09:49)
[2019-01-27] MEDS: Aspirin Enteric Coated 81 MG Tablet PO SCH (09:49)
[2019-01-27] MEDS ORDERED: FLU Vac QV 19-20 (6Month+)/PF 0.5 ML SYRINGE IM ONE (11:46)
== END 2019-01-27 12:10 | disposition home or self-care (01) | DRG 177 ==
LOC: EMEROOARM 10:16 → 3BNU 10:16 → SUATTDRO 14:06 → 2ANU 14:24 → SUATTDRO 01-25 15:34
PROVIDERS: ADMIT Internal Medicine; ATTEND Internal Medicine

== ENCOUNTER 2019-02-16 02:30 | Observation (INO) ==
[2019-02-16] MEDS ORDERED: Isovue-370 500 ML BOTTLE IVP ONE (02:47)
[2019-02-16 03:24] LABS: Basophils % 0.5 %; Eosinophils # 0.1 K/mcL (0.0-0.6); Eosinophils % 1.6 %; Hematocrit 25.1 % (37.5-50.1); Hemoglobin 8.7 g/dL (12.9-16.9); Immature Granulocytes % 0.3 % (0-4); Lymphocytes # 1.3 K/mcL (0.6-4.6); Mean Corpuscular HGB Conc 34.7 g/dL (31.6-35.5); Mean Corpuscular Hemoglobin 31.9 pg (28.0-33.3); Mean Corpuscular Volume 91.9 fL (83.0-100.0); Mean Platelet Volume 8.7 fL (9.4-12.4); Monocytes # 0.7 K/mcL (0.0-1.3); Monocytes % 9.4 %; Neutrophils # 5.1 K/mcL (1.6-8.9); Platelet Count 278 K/mcL (140-400); Red Blood Count 2.73 M/mcL (4.19-5.50); Red Cell Distribution Width 14.6 % (11.5-14.5); Segmented Neutrophils % 70.2 %; White Blood Count 7.3 K/mcL (4.3-11.1)
[2019-02-16] MEDS ORDERED: Ondansetron 4 MG/2 ML VIAL IVP ONE (03:43)
[2019-02-16 03:46] LABS: Calcium 7.9 mg/dL (8.6-10.3); Potassium 5.5 mEq/L (3.5-5.1)
[2019-02-16 03:53] LABS: Troponin I 0.09 ng/mL (< 0.04)
[2019-02-16] MEDS ORDERED: Nitroglycerin 25 MG/250 ML INFUS..BTL IVC SCH (04:15)
[2019-02-16 05:13] LABS: VBG HCO3 26 mEq/L (21-27); VBG PCO2 42 mmHg (41-51); VBG PO2 160 mmHg (25-50)
[2019-02-16] MEDS ORDERED: Naloxone 0.4 MG/ML INJ IVP PRN (05:26)
[2019-02-16] MEDS ORDERED: *HR* Dextrose 50 % in Water (Syg) 50 ML SYRINGE IVP PRN (05:29)
[2019-02-16] MEDS ORDERED: Dextrose Gel 15 GM/37.5 ML TUBE PO PRN ×2 (05:29)
[2019-02-16] MEDS ORDERED: D5% in Water 1,000 ML IVC PRN (05:29)
[2019-02-16] MEDS ORDERED: Acetaminophen 325 MG TABLET PO PRN (06:30)
[2019-02-16] MEDS: *HR* Heparin 5,000 UNIT/ML VIAL SQ SCH ×3 (06:41→20:28)
[2019-02-16] MEDS ORDERED: Insulin LISPRO 300 UNITS/3 ML VIAL SQ SCH ×4 (06:45→21:00)
[2019-02-16] MEDS: Ranolazine 500 MG TAB.ER.12H PO SCH ×2 (07:46→20:28)
[2019-02-16] MEDS: Aspirin Enteric Coated 81 MG Tablet PO SCH (07:47)
[2019-02-16 07:53] LABS: Estimated Average Glucose 174 mg/dl
[2019-02-16] MEDS ORDERED: traMADol 50 MG TABLET PO PRN (08:00)
[2019-02-16] MEDS: Isosorbide MONOnitrate (24 HR) 60 MG TAB.ER.24H PO SCH (08:55)
[2019-02-16] MEDS ORDERED: levoFLOXacin 750 MG TABLET PO SCH (09:00)
[2019-02-16] MEDS ORDERED: *HR* Heparin 10,000 UNIT/10 ML VIAL IV PRN (10:41)
[2019-02-16] MEDS ORDERED: 0.9 % Sodium Chloride 250 ML IVC PRN (10:41)
[2019-02-16] MEDS ORDERED: 0.9 % Sodium Chloride 1,000 ML PRIME SCH (10:45)
[2019-02-16] MEDS: Insulin LISPRO 300 UNITS/3 ML VIAL SQ SCH ×2 (13:41→16:26)
[2019-02-16] MEDS: Sucralfate 1 GM TABLET PO SCH ×3 (13:41→20:28)
[2019-02-16] MEDS: Ondansetron 4 MG/2 ML VIAL IVP PRN (14:59)
[2019-02-17] MEDS: Ondansetron 4 MG/2 ML VIAL IVP PRN (00:42)
[2019-02-17 01:31] LABS: Basophils % 0.6 %; Eosinophils # 0.2 K/mcL (0.0-0.6); Eosinophils % 2.6 %; Hematocrit 26.1 % (37.5-50.1); Hemoglobin 8.3 g/dL (12.9-16.9); Immature Granulocytes % 0.2 % (0-4); Lymphocytes # 1.2 K/mcL (0.6-4.6); Lymphocytes % 18.3 %; Mean Corpuscular HGB Conc 31.8 g/dL (31.6-35.5); Mean Corpuscular Hemoglobin 30.5 pg (28.0-33.3); Mean Platelet Volume 8.8 fL (9.4-12.4); Monocytes # 0.6 K/mcL (0.0-1.3); Monocytes % 9.1 %; Neutrophils # 4.5 K/mcL (1.6-8.9); Platelet Count 249 K/mcL (140-400); Red Blood Count 2.72 M/mcL (4.19-5.50); Red Cell Distribution Width 14.6 % (11.5-14.5); Segmented Neutrophils % 69.2 %; White Blood Count 6.5 K/mcL (4.3-11.1)
[2019-02-17 01:53] LABS: Calcium 8.1 mg/dL (8.6-10.3); Magnesium 1.7 mg/dL (1.6-2.6); Phosphorous 5.5 mg/dL (2.7-4.5); Potassium 4.9 mEq/L (3.5-5.1)
[2019-02-17 02:16] LABS: Folate 5.1 ng/mL (3.0-16.0)
[2019-02-17] MEDS: *HR* Heparin 5,000 UNIT/ML VIAL SQ SCH (05:23)
[2019-02-17] MEDS ORDERED: Insulin LISPRO 300 UNITS/3 ML VIAL SQ SCH (07:30)
[2019-02-17] MEDS: Aspirin Enteric Coated 81 MG Tablet PO SCH (08:47)
[2019-02-17] MEDS: Ranolazine 500 MG TAB.ER.12H PO SCH (08:47)
[2019-02-17] MEDS: Isosorbide MONOnitrate (24 HR) 60 MG TAB.ER.24H PO SCH (08:47)
[2019-02-17] MEDS: Sucralfate 1 GM TABLET PO SCH (08:47)
[2019-02-17 10:44] VITALS: BP 142/73
[2019-02-18] MEDS ORDERED: levoFLOXacin 750 MG TABLET PO SCH (09:00)
== END 2019-02-17 13:42 | disposition home health service (06) ==
LOC: 2NNU 02:30 → EMEROOARM 02:30 → SUATTDRO 05:06 → 2NNU 05:40
PROVIDERS: ADMIT Internal Medicine; ATTEND Pharmacist

== ENCOUNTER 2019-03-14 01:47 | Observation (INO) ==
[2019-03-14 05:47] LABS: Basophils # 0.1 K/mcL (0.0-0.2); Basophils % 0.7 %; Eosinophils # 0.2 K/mcL (0.0-0.6); Eosinophils % 2.1 %; Hematocrit 30.6 % (37.5-50.1); Hemoglobin 10.4 g/dL (12.9-16.9); Immature Granulocytes % 0.4 % (0-4); Lymphocytes # 1.6 K/mcL (0.6-4.6); Lymphocytes % 18.4 %; Mean Corpuscular Hemoglobin 31.2 pg (28.0-33.3); Mean Corpuscular Volume 91.9 fL (83.0-100.0); Mean Platelet Volume 9.6 fL (9.4-12.4); Monocytes # 0.7 K/mcL (0.0-1.3); Monocytes % 8.5 %; Platelet Count 342 K/mcL (140-400); Red Blood Count 3.33 M/mcL (4.19-5.50); Red Cell Distribution Width 14.4 % (11.5-14.5); Segmented Neutrophils % 69.9 %; White Blood Count 8.6 K/mcL (4.3-11.1)
[2019-03-14] MEDS ORDERED: Nitroglycerin 0.4 MG TAB.SUBL SL PRN (06:27)
[2019-03-14 07:14] LABS: Albumin 3.4 g/dL (3.5-5.7); Albumin/Globulin Ratio 0.9 (1.1-2.2); Bilirubin,Total 0.3 mg/dL (0.3-1.0); Calcium 8.5 mg/dL (8.6-10.3); Globulin 3.7 g/dL (2.4-3.5); Potassium 5.3 mEq/L (3.5-5.1); Total Protein 7.1 g/dL (6.4-8.9)
[2019-03-14 07:36] LABS: Troponin I 0.09 ng/mL (< 0.04)
[2019-03-14] MEDS ORDERED: Nitroglycerin 1 INCH/GM PACKET TP ONE (08:24)
[2019-03-14] MEDS ORDERED: Naloxone 0.4 MG/ML INJ IVP PRN (08:54)
[2019-03-14] MEDS ORDERED: Ondansetron 4 MG/2 ML VIAL IVP PRN (08:54)
[2019-03-14] MEDS ORDERED: 0.9 % Sodium Chloride 250 ML IVC PRN (09:40)
[2019-03-14] MEDS ORDERED: 0.9 % Sodium Chloride 1,000 ML PRIME SCH (09:45)
[2019-03-14 10:34] LABS: Hepatitis B Surface Antibody 12.76 mIU/mL
[2019-03-14 10:44] LABS: Hepatitis B Surface Antigen Nonreactive (Nonreactive)
[2019-03-14] MEDS ORDERED: Morphine Sulfate 2 MG/ML SYRINGE IVP ONE (12:00)
[2019-03-14] MEDS ORDERED: Dextrose Gel 15 GM/37.5 ML TUBE PO PRN ×2 (12:12)
[2019-03-14] MEDS ORDERED: D5% in Water 1,000 ML IVC PRN (12:12)
[2019-03-14] MEDS ORDERED: *HR* Dextrose 50 % in Water (Syg) 50 ML SYRINGE IVP PRN (12:12)
[2019-03-14] MEDS: Sucralfate 1 GM TABLET PO SCH ×2 (18:20→21:19)
[2019-03-14] MEDS: Insulin LISPRO 300 UNITS/3 ML VIAL SQ SCH (18:20)
[2019-03-14] MEDS: *HR* Heparin 5,000 UNIT/ML VIAL SQ SCH (18:21)
[2019-03-14] MEDS: Aspirin Enteric Coated 81 MG Tablet PO SCH (21:19)
[2019-03-15] MEDS ORDERED: Morphine Sulfate 2 MG/ML SYRINGE IVP ONE (00:25)
[2019-03-15] MEDS: *HR* Heparin 5,000 UNIT/ML VIAL SQ SCH ×2 (06:01→17:45)
[2019-03-15 06:34] LABS: Basophils % 0.4 %; Eosinophils # 0.2 K/mcL (0.0-0.6); Eosinophils % 3.5 %; Hematocrit 29.2 % (37.5-50.1); Hemoglobin 9.6 g/dL (12.9-16.9); Immature Granulocytes % 0.2 % (0-4); Lymphocytes # 1.1 K/mcL (0.6-4.6); Lymphocytes % 20.4 %; Mean Corpuscular HGB Conc 32.9 g/dL (31.6-35.5); Mean Corpuscular Hemoglobin 31.1 pg (28.0-33.3); Mean Corpuscular Volume 94.5 fL (83.0-100.0); Mean Platelet Volume 9.2 fL (9.4-12.4); Monocytes # 0.6 K/mcL (0.0-1.3); Monocytes % 10.4 %; Neutrophils # 3.6 K/mcL (1.6-8.9); Platelet Count 277 K/mcL (140-400); Red Blood Count 3.09 M/mcL (4.19-5.50); Red Cell Distribution Width 14.2 % (11.5-14.5); Segmented Neutrophils % 65.1 %; White Blood Count 5.5 K/mcL (4.3-11.1)
[2019-03-15 06:50] LABS: Calcium 8.4 mg/dL (8.6-10.3); Chol/HDL Ratio 5.7 (0-4.9); Magnesium 1.9 mg/dL (1.6-2.6); Potassium 5.4 mEq/L (3.5-5.1)
[2019-03-15] MEDS ORDERED: 0.9 % Sodium Chloride 250 ML IVC PRN (06:51)
[2019-03-15] MEDS: Aspirin Enteric Coated 81 MG Tablet PO SCH (07:57)
[2019-03-15] MEDS: Insulin LISPRO 300 UNITS/3 ML VIAL SQ SCH ×3 (07:57→17:45)
[2019-03-15] MEDS: Sucralfate 1 GM TABLET PO SCH ×4 (07:58→17:45)
[2019-03-15] MEDS ORDERED: Ranolazine 500 MG TAB.ER.12H PO SCH (09:00)
[2019-03-15] MEDS ORDERED: Isosorbide MONOnitrate (24 HR) 30 MG TAB.ER.24H PO SCH (09:00)
[2019-03-15] MEDS ORDERED: Calcium Acetate 667 MG CAPSULE PO SCH (09:00)
[2019-03-15] MEDS: Calcium Acetate 667 MG CAPSULE PO SCH ×3 (11:00→17:44)
[2019-03-15] MEDS: Ranolazine 500 MG TAB.ER.12H PO SCH (20:03)
[2019-03-15] MEDS ORDERED: Insulin DETEMIR 100 UNIT/ML X5UNITS SQ SCH (21:00)
[2019-03-16] MEDS: *HR* Heparin 5,000 UNIT/ML VIAL SQ SCH ×2 (04:53→05:03)
[2019-03-16 05:13] LABS: Basophils % 0.8 %; Eosinophils # 0.2 K/mcL (0.0-0.6); Eosinophils % 3.4 %; Hemoglobin 9.8 g/dL (12.9-16.9); Immature Granulocytes % 0.4 % (0-4); Lymphocytes # 1.5 K/mcL (0.6-4.6); Lymphocytes % 28.8 %; Mean Corpuscular HGB Conc 33.8 g/dL (31.6-35.5); Mean Corpuscular Hemoglobin 31.4 pg (28.0-33.3); Mean Corpuscular Volume 92.9 fL (83.0-100.0); Mean Platelet Volume 8.9 fL (9.4-12.4); Monocytes # 0.7 K/mcL (0.0-1.3); Monocytes % 13.7 %; Neutrophils # 2.7 K/mcL (1.6-8.9); Platelet Count 251 K/mcL (140-400); Red Blood Count 3.12 M/mcL (4.19-5.50); Red Cell Distribution Width 14.1 % (11.5-14.5); Segmented Neutrophils % 52.9 %
[2019-03-16 05:33] LABS: Calcium 8.9 mg/dL (8.6-10.3); Potassium 4.8 mEq/L (3.5-5.1)
[2019-03-16 07:06] VITALS: BP 160/80
[2019-03-16] MEDS ORDERED: 0.9 % Sodium Chloride 250 ML IVC PRN (07:13)
[2019-03-16] MEDS: Ranolazine 500 MG TAB.ER.12H PO SCH (07:55)
[2019-03-16] MEDS: Calcium Acetate 667 MG CAPSULE PO SCH (07:56)
[2019-03-16] MEDS: Sucralfate 1 GM TABLET PO SCH (07:56)
[2019-03-16] MEDS: Insulin LISPRO 300 UNITS/3 ML VIAL SQ SCH (07:57)
[2019-03-16] MEDS ORDERED: Isosorbide MONOnitrate (24 HR) 60 MG TAB.ER.24H PO SCH (09:00)
[2019-03-16] MEDS ORDERED: Aspirin Enteric Coated 81 MG Tablet PO SCH (09:00)
== END 2019-03-16 10:42 | disposition home or self-care (01) ==
LOC: CDU 01:47 → EMEROOARM 01:47 → SUATTDRO 08:59 → CDU 09:10 → 2ANU 13:53
PROVIDERS: ADMIT Family Medicine; ATTEND Family Medicine

== ENCOUNTER 2019-04-23 09:11 | Observation (INO) ==
[2019-04-23 10:09] LABS: Basophils % 0.5 %; Eosinophils # 0.1 K/mcL (0.0-0.6); Eosinophils % 2.2 %; Hemoglobin 9.7 g/dL (12.9-16.9); Immature Granulocytes % 0.5 % (0-4); Lymphocytes # 1.3 K/mcL (0.6-4.6); Lymphocytes % 21.3 %; Mean Corpuscular HGB Conc 33.4 g/dL (31.6-35.5); Mean Corpuscular Hemoglobin 30.9 pg (28.0-33.3); Mean Corpuscular Volume 92.4 fL (83.0-100.0); Mean Platelet Volume 9.6 fL (9.4-12.4); Monocytes # 0.5 K/mcL (0.0-1.3); Neutrophils # 3.9 K/mcL (1.6-8.9); Platelet Count 247 K/mcL (140-400); Red Blood Count 3.14 M/mcL (4.19-5.50); Red Cell Distribution Width 14.9 % (11.5-14.5); Segmented Neutrophils % 66.5 %; White Blood Count 5.9 K/mcL (4.3-11.1)
[2019-04-23 10:15] LABS: INR 1.1; Prothrombin Time 12.3 Seconds (9.4-12.1)
[2019-04-23 10:18] LABS: Activated Partial Thrombo Time 31.4 Seconds (26.0-36.0)
[2019-04-23 10:30] LABS: Calcium 7.3 mg/dL (8.6-10.3); Potassium 3.8 mEq/L (3.5-5.1)
[2019-04-23 10:31] LABS: Troponin I 0.03 ng/mL (< 0.04)
[2019-04-23] MEDS ORDERED: Acetaminophen 325 MG TABLET PO PRN (11:21)
[2019-04-23] MEDS ORDERED: Naloxone 0.4 MG/ML INJ IVP PRN (11:21)
[2019-04-23] MEDS ORDERED: Dextrose Gel 15 GM/37.5 ML TUBE PO PRN ×2 (11:24)
[2019-04-23] MEDS ORDERED: *HR* Dextrose 50 % in Water (Syg) 50 ML SYRINGE IVP PRN (11:24)
[2019-04-23] MEDS ORDERED: D5% in Water 1,000 ML IVC PRN (11:24)
[2019-04-23] MEDS ORDERED: Nitroglycerin 0.4 MG TAB.SUBL SL PRN (11:27)
[2019-04-23] MEDS: Insulin LISPRO 300 UNITS/3 ML VIAL SQ SCH ×2 (12:37→16:02)
[2019-04-23] MEDS: Sucralfate 1 GM TABLET PO SCH ×2 (15:11→21:24)
[2019-04-23] MEDS: *HR* Heparin 5,000 UNIT/ML VIAL SQ SCH (17:14)
[2019-04-23] MEDS ORDERED: Insulin DETEMIR 100 UNIT/ML X5UNITS SQ SCH (21:00)
[2019-04-23] MEDS: Ranolazine 500 MG TAB.ER.12H PO SCH (21:24)
[2019-04-23] MEDS: Aspirin Enteric Coated 81 MG Tablet PO SCH (21:24)
[2019-04-24 02:15] LABS: Basophils % 0.4 %; Eosinophils # 0.2 K/mcL (0.0-0.6); Eosinophils % 2.5 %; Hematocrit 30.6 % (37.5-50.1); Hemoglobin 9.7 g/dL (12.9-16.9); Immature Granulocytes % 0.1 % (0-4); Lymphocytes # 1.1 K/mcL (0.6-4.6); Lymphocytes % 16.4 %; Mean Corpuscular HGB Conc 31.7 g/dL (31.6-35.5); Mean Corpuscular Hemoglobin 30.9 pg (28.0-33.3); Mean Corpuscular Volume 97.5 fL (83.0-100.0); Mean Platelet Volume 9.4 fL (9.4-12.4); Monocytes # 0.6 K/mcL (0.0-1.3); Monocytes % 9.1 %; Neutrophils # 4.8 K/mcL (1.6-8.9); Platelet Count 218 K/mcL (140-400); Red Blood Count 3.14 M/mcL (4.19-5.50); Red Cell Distribution Width 14.8 % (11.5-14.5); Segmented Neutrophils % 71.5 %; White Blood Count 6.7 K/mcL (4.3-11.1)
[2019-04-24 02:34] LABS: Calcium 7.6 mg/dL (8.6-10.3); Magnesium 1.8 mg/dL (1.6-2.6); Phosphorous 6.8 mg/dL (2.7-4.5)
[2019-04-24] MEDS: *HR* Heparin 5,000 UNIT/ML VIAL SQ SCH (06:51)
[2019-04-24] MEDS: Insulin LISPRO 300 UNITS/3 ML VIAL SQ SCH ×2 (08:25→12:26)
[2019-04-24] MEDS: Aspirin Enteric Coated 81 MG Tablet PO SCH (08:26)
[2019-04-24] MEDS: Ranolazine 500 MG TAB.ER.12H PO SCH (08:26)
[2019-04-24] MEDS: Sucralfate 1 GM TABLET PO SCH (08:26)
[2019-04-24] MEDS ORDERED: Ondansetron 4 MG/2 ML VIAL IVP PRN (08:42)
[2019-04-24] MEDS ORDERED: Isosorbide MONOnitrate (24 HR) 30 MG TAB.ER.24H PO SCH (09:00)
[2019-04-24 12:05] VITALS: BP 134/61
[2019-04-27] MEDS ORDERED: Ergocalciferol (VIT D2) 50,000 UNIT (1.25MG) CAP PO SCH (11:29)
== END 2019-04-24 15:49 | disposition home or self-care (01) ==
LOC: EMEROOARM 09:11 → 2ANU 09:11 → SUATTDRO 11:13 → 2ANU 12:08
PROVIDERS: ADMIT Internal Medicine; ATTEND Internal Medicine

== ENCOUNTER 2019-05-06 22:11 | Observation (INO) ==
[2019-05-06] MEDS ORDERED: Nitroglycerin 0.4 MG TAB.SUBL SL PRN (22:19)
[2019-05-06] MEDS ORDERED: Ipratropium/Albuterol Neb 3 ML IH ONE (22:22)
[2019-05-06] MEDS ORDERED: Aspirin 325 MG TABLET PO ONE (22:42)
[2019-05-06 23:08] LABS: Basophils % 0.5 %; Eosinophils # 0.1 K/mcL (0.0-0.6); Eosinophils % 2.4 %; Hematocrit 30.4 % (37.5-50.1); Hemoglobin 10.4 g/dL (12.9-16.9); Immature Granulocytes % 0.4 % (0-4); Lymphocytes # 0.8 K/mcL (0.6-4.6); Lymphocytes % 14.7 %; Mean Corpuscular HGB Conc 34.2 g/dL (31.6-35.5); Mean Corpuscular Hemoglobin 31.3 pg (28.0-33.3); Mean Corpuscular Volume 91.6 fL (83.0-100.0); Mean Platelet Volume 8.6 fL (9.4-12.4); Monocytes # 0.6 K/mcL (0.0-1.3); Monocytes % 10.7 %; Neutrophils # 3.9 K/mcL (1.6-8.9); Platelet Count 218 K/mcL (140-400); Red Blood Count 3.32 M/mcL (4.19-5.50); Red Cell Distribution Width 15.7 % (11.5-14.5); Segmented Neutrophils % 71.3 %; White Blood Count 5.5 K/mcL (4.3-11.1)
[2019-05-06 23:12] LABS: INR 1.1; Prothrombin Time 12.4 Seconds (9.4-12.1)
[2019-05-06 23:15] LABS: Activated Partial Thrombo Time 34.2 Seconds (26.0-36.0)
[2019-05-06 23:37] LABS: Troponin I 0.05 ng/mL (< 0.04)
[2019-05-07] MEDS ORDERED: *HR* OxyCODONE/APAP 5/325 TABLET PO ONE (02:06)
[2019-05-07 03:28] LABS: VBG Ionized Calcium 0.82 mmol/L (1.15-1.35)
[2019-05-07] MEDS ORDERED: Naloxone 0.4 MG/ML INJ IVP PRN (04:19)
[2019-05-07] MEDS ORDERED: Dextrose Gel 15 GM/37.5 ML TUBE PO PRN ×2 (04:45)
[2019-05-07] MEDS ORDERED: D5% in Water 1,000 ML IVC PRN (04:45)
[2019-05-07] MEDS ORDERED: *HR* Heparin 5,000 UNIT/ML VIAL IVP PRN (04:45)
[2019-05-07] MEDS ORDERED: *HR* Heparin 5,000 UNIT/ML VIAL IVP ONE (04:45)
[2019-05-07] MEDS ORDERED: *HR* Dextrose 50 % in Water (Syg) 50 ML SYRINGE IVP PRN (04:45)
[2019-05-07] MEDS ORDERED: Calcium Gluconate 1gm/50mL 1 GM/50 ML BAG IVPB ONE (05:00)
[2019-05-07] MEDS: Heparin 25,000 UNIT/250 ML D5W 25,000 UNIT/250 ML IV.SOLN IVC SCH (05:29)
[2019-05-07] MEDS: Pantoprazole 40 MG VIAL IVP SCH ×2 (05:30→18:47)
[2019-05-07] MEDS: Insulin LISPRO 300 UNITS/3 ML VIAL SQ SCH ×3 (05:58→18:24)
[2019-05-07] MEDS ORDERED: *HR* Heparin 5,000 UNIT/ML VIAL SQ SCH (06:00)
[2019-05-07 07:24] LABS: Basophils % 0.8 %; Eosinophils # 0.1 K/mcL (0.0-0.6); Eosinophils % 2.8 %; Hematocrit 29.7 % (37.5-50.1); Hematocrit 31.7 % (37.5-50.1); Hemoglobin 10.5 g/dL (12.9-16.9); Hemoglobin 9.5 g/dL (12.9-16.9); Immature Granulocytes % 0.2 % (0-4); Lymphocytes # 1.4 K/mcL (0.6-4.6); Lymphocytes % 28.6 %; Mean Corpuscular HGB Conc 33.1 g/dL (31.6-35.5); Mean Corpuscular Hemoglobin 30.8 pg (28.0-33.3); Mean Corpuscular Volume 97.1 fL (83.0-100.0); Mean Platelet Volume 9.1 fL (9.4-12.4); Monocytes # 0.6 K/mcL (0.0-1.3); Monocytes % 11.7 %; Neutrophils # 2.8 K/mcL (1.6-8.9); Platelet Count 205 K/mcL (140-400); Platelet Count 211 K/mcL (140-400); Red Blood Count 3.06 M/mcL (4.19-5.50); Red Blood Count 3.41 M/mcL (4.19-5.50); Red Cell Distribution Width 15.5 % (11.5-14.5); Red Cell Distribution Width 15.6 % (11.5-14.5); Segmented Neutrophils % 55.9 %; White Blood Count 5.1 K/mcL (4.3-11.1)
[2019-05-07 07:37] LABS: Albumin 3.5 g/dL (3.5-5.7); Albumin/Globulin Ratio 1.1 (1.1-2.2); Bilirubin,Total 0.4 mg/dL (0.3-1.0); Calcium 7.4 mg/dL (8.6-10.3); Chol/HDL Ratio 3.6 (0-4.9); Globulin 3.3 g/dL (2.4-3.5); Phosphorous 7.7 mg/dL (2.7-4.5); Potassium 4.1 mEq/L (3.5-5.1); Total Protein 6.8 g/dL (6.4-8.9)
[2019-05-07] MEDS ORDERED: 0.9 % Sodium Chloride 250 ML IVC PRN (10:59)
[2019-05-07] MEDS ORDERED: 0.9 % Sodium Chloride 1,000 ML PRIME SCH (11:00)
[2019-05-07] MEDS: Isosorbide MONOnitrate (24 HR) 30 MG TAB.ER.24H PO SCH (11:05)
[2019-05-07] MEDS: Ranolazine 500 MG TAB.ER.12H PO SCH ×2 (11:06→20:29)
[2019-05-07] MEDS: Aspirin Enteric Coated 81 MG Tablet PO SCH ×2 (11:07→20:29)
[2019-05-07] MEDS: Sucralfate 1 GM TABLET PO SCH ×3 (11:07→20:33)
[2019-05-07] MEDS: *HR* Heparin 5,000 UNIT/ML VIAL IVP PRN ×2 (16:48→23:10)
[2019-05-07] MEDS ORDERED: Insulin LISPRO 300 UNITS/3 ML VIAL SQ SCH (21:00)
[2019-05-07 23:19] LABS: Bilirubin,Urine Negative (Negative); Blood,Urine Negative (Negative); Clarity,Urine Clear (Clear); Color,Urine Yellow (Yellow); Glucose,Urine (UA) 250 mg/dL (Normal); Ketones,Urine Negative (Negative); Leukocyte Esterase,Urine Negative (Negative); Nitrite,Urine Negative (Negative); Protein,Urine >=300 mg/dL (Neg-Trace); Specific Gravity,Urine 1.018 (1.010-1.025); Urobilinogen,Urine Normal (Normal)
[2019-05-07 23:21] LABS: Bacteria,Urine None Seen per hpf (None-Few); Hyaline Casts,Urine None Seen per lpf (None-Few); Squamous Epithelial Cell,Urine Many per lpf (None-Few); WBC,Urine 0-3 per hpf (0-3)
[2019-05-08] MEDS: Heparin 25,000 UNIT/250 ML D5W 25,000 UNIT/250 ML IV.SOLN IVC SCH (02:40)
[2019-05-08] MEDS ORDERED: Morphine Sulfate 2 MG/ML SYRINGE IVP ONE (03:33)
[2019-05-08] MEDS: Pantoprazole 40 MG VIAL IVP SCH (06:13)
[2019-05-08 06:45] LABS: Basophils % 0.6 %; Eosinophils # 0.2 K/mcL (0.0-0.6); Eosinophils % 3.1 %; Hemoglobin 10.1 g/dL (12.9-16.9); Immature Granulocytes % 0.2 % (0-4); Lymphocytes # 1.1 K/mcL (0.6-4.6); Lymphocytes % 21.8 %; Mean Corpuscular HGB Conc 33.7 g/dL (31.6-35.5); Mean Corpuscular Hemoglobin 31.3 pg (28.0-33.3); Mean Corpuscular Volume 92.9 fL (83.0-100.0); Mean Platelet Volume 9.4 fL (9.4-12.4); Monocytes # 0.5 K/mcL (0.0-1.3); Monocytes % 10.1 %; Neutrophils # 3.1 K/mcL (1.6-8.9); Platelet Count 183 K/mcL (140-400); Red Blood Count 3.23 M/mcL (4.19-5.50); Segmented Neutrophils % 64.2 %; White Blood Count 4.9 K/mcL (4.3-11.1)
[2019-05-08] MEDS: *HR* Heparin 5,000 UNIT/ML VIAL IVP PRN (06:58)
[2019-05-08 07:11] LABS: Calcium 7.9 mg/dL (8.6-10.3); Potassium 5.1 mEq/L (3.5-5.1)
[2019-05-08] MEDS: Isosorbide MONOnitrate (24 HR) 30 MG TAB.ER.24H PO SCH (07:53)
[2019-05-08] MEDS: Ranolazine 500 MG TAB.ER.12H PO SCH (07:53)
[2019-05-08] MEDS: Sucralfate 1 GM TABLET PO SCH ×2 (07:54→15:44)
[2019-05-08] MEDS: Aspirin Enteric Coated 81 MG Tablet PO SCH (07:54)
[2019-05-08] MEDS: Insulin LISPRO 300 UNITS/3 ML VIAL SQ SCH ×2 (07:55→11:11)
[2019-05-08] MEDS ORDERED: GI Cocktail 40 ML EACH PO ONE (10:30)
[2019-05-08 11:01] VITALS: BP 125/73
[2019-05-08] MEDS ORDERED: Isosorbide MONOnitrate (24 HR) 30 MG TAB.ER.24H PO ONE (12:00)
== END 2019-05-08 16:03 | disposition home or self-care (01) ==
LOC: EMEROOARM 22:11 → 3BNU 22:11 → SUATTDRO 05-07 02:04 → 3BNU 05-07 02:41 → 2ANU 05-07 18:01
PROVIDERS: ADMIT Internal Medicine; ATTEND Internal Medicine

== ENCOUNTER 2019-06-04 08:50 | Observation (INO) ==
[2019-06-04 09:17] LABS: Hematocrit 34.5 % (37.5-50.1); Hemoglobin 11.3 g/dL (12.9-16.9); Mean Corpuscular HGB Conc 32.8 g/dL (31.6-35.5); Mean Corpuscular Hemoglobin 30.2 pg (28.0-33.3); Mean Corpuscular Volume 92.2 fL (83.0-100.0); Mean Platelet Volume 9.1 fL (9.4-12.4); Platelet Count 190 K/mcL (140-400); Red Blood Count 3.74 M/mcL (4.19-5.50); Red Cell Distribution Width 15.2 % (11.5-14.5); White Blood Count 6.6 K/mcL (4.3-11.1)
[2019-06-04 09:24] LABS: INR 1.1; Prothrombin Time 12.1 Seconds (9.4-12.1)
[2019-06-04 09:26] LABS: Activated Partial Thrombo Time 31.7 Seconds (26.0-36.0)
[2019-06-04] MEDS ORDERED: Isovue-370 500 ML BOTTLE IVP ONE (09:26)
[2019-06-04 09:37] LABS: Calcium 8.3 mg/dL (8.6-10.3); Potassium 4.2 mEq/L (3.5-5.1); Troponin I 0.03 ng/mL (< 0.04)
[2019-06-04] MEDS ORDERED: Acetaminophen 325 MG TABLET PO ONE (09:44)
[2019-06-04] MEDS ORDERED: Acetaminophen 325 MG TABLET PO PRN (13:16)
[2019-06-04] MEDS ORDERED: Ondansetron 4 MG/2 ML VIAL IVP PRN (13:21)
[2019-06-04] MEDS ORDERED: Naloxone 0.4 MG/ML INJ IVP PRN (13:21)
[2019-06-04] MEDS ORDERED: *HR* Labetalol 20 MG/4 ML SYRINGE IVP PRN (13:24)
[2019-06-04] MEDS ORDERED: D5% in Water 1,000 ML IVC PRN (13:27)
[2019-06-04] MEDS ORDERED: *HR* Dextrose 50 % in Water (Syg) 50 ML SYRINGE IVP PRN (13:27)
[2019-06-04] MEDS ORDERED: Dextrose Gel 15 GM/37.5 ML TUBE PO PRN ×2 (13:27)
[2019-06-04] MEDS: Aspirin Enteric Coated 81 MG Tablet PO SCH (14:10)
[2019-06-04] MEDS: Insulin LISPRO 300 UNITS/3 ML VIAL SQ SCH (16:06)
[2019-06-04 17:55] LABS: Bilirubin,Urine Negative (Negative); Blood,Urine Negative (Negative); Clarity,Urine Clear (Clear); Color,Urine Yellow (Yellow); Glucose,Urine (UA) 250 mg/dL (Normal); Ketones,Urine Negative (Negative); Leukocyte Esterase,Urine Negative (Negative); Nitrite,Urine Negative (Negative); Protein,Urine >=1000 mg/dL (Neg-Trace); Specific Gravity,Urine 1.017 (1.010-1.025); Urobilinogen,Urine Normal (Normal)
[2019-06-04 17:58] LABS: Bacteria,Urine None Seen per hpf (None-Few); Hyaline Casts,Urine None Seen per lpf (None-Few); RBC,Urine 0-3 per hpf (0-3); Squamous Epithelial Cell,Urine Moderate per lpf (None-Few); WBC,Urine 0-3 per hpf (0-3)
[2019-06-04 18:06] LABS: Amphetamine Screen,Urine Negative ng/mL (Cutoff=1000); Barbiturate Screen,Urine Negative ng/mL (Cutoff=200); Benzodiazepines Screen,Urine Negative ng/mL (Cutoff=200); Cannabinoid Screen,Urine Negative ng/mL (Cutoff = 50); Cocaine Screen,Urine Negative ng/mL (Cutoff= 300); Opiate Screen,Urine Negative ng/mL (Cutoff=300); Phencyclidine Screen,Urine Negative ng/mL (Cutoff=25)
[2019-06-04] MEDS ORDERED: Insulin LISPRO 300 UNITS/3 ML VIAL SQ SCH (21:00)
[2019-06-05 03:51] LABS: Basophils % 0.3 %; Eosinophils # 0.2 K/mcL (0.0-0.6); Eosinophils % 3.5 %; Hematocrit 33.3 % (37.5-50.1); Immature Granulocytes % 0.3 % (0-4); Lymphocytes % 16.4 %; Mean Corpuscular Hemoglobin 31.2 pg (28.0-33.3); Mean Corpuscular Volume 94.3 fL (83.0-100.0); Mean Platelet Volume 8.8 fL (9.4-12.4); Monocytes # 0.5 K/mcL (0.0-1.3); Monocytes % 8.6 %; Neutrophils # 4.2 K/mcL (1.6-8.9); Platelet Count 196 K/mcL (140-400); Red Blood Count 3.53 M/mcL (4.19-5.50); Red Cell Distribution Width 15.5 % (11.5-14.5); Segmented Neutrophils % 70.9 %; White Blood Count 5.9 K/mcL (4.3-11.1)
[2019-06-05 03:53] LABS: Estimated Average Glucose 177 mg/dl
[2019-06-05 04:01] LABS: INR 1.1; Prothrombin Time 12.6 Seconds (9.4-12.1)
[2019-06-05 04:08] LABS: Albumin 3.2 g/dL (3.5-5.7); Albumin/Globulin Ratio 1.1 (1.1-2.2); Bilirubin,Total 0.4 mg/dL (0.3-1.0); Calcium 8.4 mg/dL (8.6-10.3); Chol/HDL Ratio 4.7 (0-4.9); Magnesium 1.9 mg/dL (1.6-2.6); Potassium 4.1 mEq/L (3.5-5.1); Total Protein 6.2 g/dL (6.4-8.9)
[2019-06-05] MEDS: Insulin LISPRO 300 UNITS/3 ML VIAL SQ SCH ×3 (07:30→16:28)
[2019-06-05] MEDS: Aspirin Enteric Coated 81 MG Tablet PO SCH (07:30)
[2019-06-05] MEDS ORDERED: GI Cocktail 40 ML EACH PO PRN (08:19)
[2019-06-05] MEDS ORDERED: Isosorbide MONOnitrate (24 HR) 30 MG TAB.ER.24H PO SCH (09:00)
[2019-06-05] MEDS ORDERED: Ranolazine 500 MG TAB.ER.12H PO SCH ×2 (09:00→21:00)
[2019-06-05] MEDS: Sucralfate 1 GM TABLET PO SCH ×2 (09:45→15:02)
[2019-06-05 16:18] VITALS: BP 201/94
[2019-06-05] MEDS ORDERED: Isosorbide MONOnitrate (24 HR) 60 MG TAB.ER.24H PO SCH (16:45)
[2019-06-05] MEDS ORDERED: Calcium Acetate 667 MG CAPSULE PO SCH (17:00)
[2019-06-08] MEDS ORDERED: Ergocalciferol (VIT D2) 50,000 UNIT (1.25MG) CAP PO SCH (09:00)
== END 2019-06-05 16:55 | disposition home or self-care (01) ==
LOC: EMEROOARM 08:50 → 2ANU 08:50 → SUATTDRO 12:59 → 2ANU 14:30
PROVIDERS: ADMIT Internal Medicine; ATTEND Internal Medicine

== ENCOUNTER 2019-06-21 02:18 | Observation (INO) ==
[2019-06-21] MEDS ORDERED: Ipratropium/Albuterol Neb 3 ML IH ONE (02:27)
[2019-06-21 03:19] LABS: Basophils % 0.5 %; Eosinophils # 0.2 K/mcL (0.0-0.6); Eosinophils % 3.4 %; Hematocrit 35.2 % (37.5-50.1); Hemoglobin 11.2 g/dL (12.9-16.9); Immature Granulocytes % 0.2 % (0-4); Lymphocytes # 1.1 K/mcL (0.6-4.6); Lymphocytes % 17.2 %; Mean Corpuscular HGB Conc 31.8 g/dL (31.6-35.5); Mean Corpuscular Hemoglobin 30.1 pg (28.0-33.3); Mean Corpuscular Volume 94.6 fL (83.0-100.0); Mean Platelet Volume 8.8 fL (9.4-12.4); Monocytes # 0.5 K/mcL (0.0-1.3); Monocytes % 8.4 %; Neutrophils # 4.3 K/mcL (1.6-8.9); Platelet Count 234 K/mcL (140-400); Red Blood Count 3.72 M/mcL (4.19-5.50); Red Cell Distribution Width 14.3 % (11.5-14.5); Segmented Neutrophils % 70.3 %; White Blood Count 6.2 K/mcL (4.3-11.1)
[2019-06-21 03:42] LABS: Albumin 3.7 g/dL (3.5-5.7); Albumin/Globulin Ratio 1.1 (1.1-2.2); Bilirubin,Total 0.5 mg/dL (0.3-1.0); Calcium 9.1 mg/dL (8.6-10.3); Globulin 3.5 g/dL (2.4-3.5); Potassium 5.3 mEq/L (3.5-5.1); Total Protein 7.2 g/dL (6.4-8.9)
[2019-06-21 03:56] LABS: Troponin I 0.07 ng/mL (< 0.04)
[2019-06-21] MEDS ORDERED: Naloxone 0.4 MG/ML INJ IVP PRN (05:44)
[2019-06-21] MEDS ORDERED: Acetaminophen 325 MG TABLET PO PRN (05:49)
[2019-06-21] MEDS ORDERED: *HR* HYDROcodone/Acet 5/325 mg TABLET PO PRN (05:49)
[2019-06-21] MEDS ORDERED: Ondansetron ODT 4 MG TAB.RAPDIS SL PRN (05:49)
[2019-06-21] MEDS ORDERED: Nitroglycerin 0.4 MG TAB.SUBL SL PRN (05:49)
[2019-06-21] MEDS ORDERED: Benzonatate 100 MG CAPSULE PO PRN (06:03)
[2019-06-21] MEDS: Isosorbide MONOnitrate (24 HR) 30 MG TAB.ER.24H PO SCH (06:05)
[2019-06-21] MEDS ORDERED: 0.9 % Sodium Chloride 250 ML IVC PRN (08:54)
[2019-06-21 08:58] LABS: Adenovirus Not Detected (Not Detect); Bordetella Pertussis Not Detected (Not Detect); Chlamydophila pneumoniae Not Detected (Not Detect); Coronavirus 229E Not Detected (Not Detect); Coronavirus HKU1 Not Detected (Not Detect); Coronavirus NL63 Not Detected (Not Detect); Coronavirus OC43 Not Detected (Not Detect); Human Metapneumovirus Not Detected (Not Detect); Human Rhinovirus/Enterovirus Not Detected (Not Detect); Influenza A Subtype 2009 H1 Not Detected (Not Detect); Influenza B Not Detected (Not Detect); Mycoplasma pneumoniae Not Detected (Not Detect); Parainfluenza Virus 1 Not Detected (Not Detect); Parainfluenza Virus 2 Not Detected (Not Detect); Parainfluenza Virus 3 Not Detected (Not Detect); Parainfluenza Virus 4 Not Detected (Not Detect); Respiratory Syncytial Virus Not Detected (Not Detect)
[2019-06-21] MEDS ORDERED: 0.9 % Sodium Chloride 1,000 ML PRIME SCH (09:00)
[2019-06-21] MEDS ORDERED: Aspirin Enteric Coated 81 MG Tablet PO SCH (09:00)
[2019-06-21] MEDS: Insulin LISPRO 300 UNITS/3 ML VIAL SQ SCH ×3 (09:43→17:48)
[2019-06-21] MEDS: Ipratropium/Albuterol Neb 3 ML IH SCH ×3 (10:43→22:28)
[2019-06-21] MEDS: Calcium Acetate 667 MG CAPSULE PO SCH ×2 (13:48→17:41)
[2019-06-21] MEDS: Doxycycline 100 MG CAPSULE PO SCH ×2 (13:50→22:09)
[2019-06-21] MEDS: Ranolazine 500 MG TAB.ER.12H PO SCH (13:50)
[2019-06-21] MEDS ORDERED: *HR* Heparin 5,000 UNIT/ML VIAL SQ SCH (18:00)
[2019-06-22] MEDS: Ipratropium/Albuterol Neb 3 ML IH SCH ×2 (03:42→10:18)
[2019-06-22 05:38] LABS: Basophils % 0.5 %; Eosinophils # 0.2 K/mcL (0.0-0.6); Eosinophils % 3.9 %; Hematocrit 34.6 % (37.5-50.1); Hemoglobin 11.1 g/dL (12.9-16.9); Immature Granulocytes % 0.5 % (0-4); Lymphocytes # 1.2 K/mcL (0.6-4.6); Lymphocytes % 19.9 %; Mean Corpuscular HGB Conc 32.1 g/dL (31.6-35.5); Mean Corpuscular Hemoglobin 30.1 pg (28.0-33.3); Mean Corpuscular Volume 93.8 fL (83.0-100.0); Mean Platelet Volume 9.1 fL (9.4-12.4); Monocytes # 0.6 K/mcL (0.0-1.3); Monocytes % 9.4 %; Neutrophils # 4.1 K/mcL (1.6-8.9); Platelet Count 202 K/mcL (140-400); Red Blood Count 3.69 M/mcL (4.19-5.50); Red Cell Distribution Width 14.1 % (11.5-14.5); Segmented Neutrophils % 65.8 %; White Blood Count 6.2 K/mcL (4.3-11.1)
[2019-06-22 05:52] LABS: Albumin 3.6 g/dL (3.5-5.7); Albumin/Globulin Ratio 1.1 (1.1-2.2); Bilirubin,Total 0.4 mg/dL (0.3-1.0); Calcium 9.1 mg/dL (8.6-10.3); Globulin 3.3 g/dL (2.4-3.5); Phosphorous 5.5 mg/dL (2.7-4.5); Potassium 4.7 mEq/L (3.5-5.1); Total Protein 6.9 g/dL (6.4-8.9)
[2019-06-22] MEDS ORDERED: 0.9 % Sodium Chloride 250 ML IVC PRN (07:15)
[2019-06-22] MEDS: Calcium Acetate 667 MG CAPSULE PO SCH (07:46)
[2019-06-22] MEDS: Insulin LISPRO 300 UNITS/3 ML VIAL SQ SCH ×2 (07:58→11:06)
[2019-06-22] MEDS ORDERED: Metoprolol XL (24 HR) Succ 50 MG TAB.ER.24H PO SCH (09:00)
[2019-06-22] MEDS ORDERED: Aspirin Enteric Coated 81 MG Tablet PO SCH (09:00)
[2019-06-22 14:06] VITALS: BP 134/86
[2019-06-22] MEDS: Isosorbide MONOnitrate (24 HR) 30 MG TAB.ER.24H PO SCH (14:06)
[2019-06-22] MEDS: Ranolazine 500 MG TAB.ER.12H PO SCH (14:06)
[2019-06-22] MEDS: Doxycycline 100 MG CAPSULE PO SCH (14:06)
== END 2019-06-22 14:38 | disposition home or self-care (01) ==
LOC: EMEROOARM 02:18 → 2NENU 02:18 → SUATTDRO 04:41 → 2NENU 05:03
PROVIDERS: ADMIT Family Medicine; ATTEND Internal Medicine

== ENCOUNTER 2019-07-01 15:46 | Inpatient (IN) ==
[2019-07-01] MEDS ORDERED: Azithromycin 500 MG in 0.9 % Sodium Chloride 250 ML IVPB ONE (16:05)
[2019-07-01] MEDS ORDERED: Piperacillin/Tazobactam 3.375 GM in Water for inj. (sterile) 20 ML IVP ONE (16:05)
[2019-07-01 18:41] LABS: Basophils % 0.7 %; Eosinophils # 0.3 K/mcL (0.0-0.6); Eosinophils % 4.3 %; Hematocrit 33.3 % (37.5-50.1); Immature Granulocytes % 0.3 % (0-4); Lymphocytes # 0.7 K/mcL (0.6-4.6); Lymphocytes % 11.4 %; Mean Corpuscular Hemoglobin 30.8 pg (28.0-33.3); Mean Corpuscular Volume 93.3 fL (83.0-100.0); Mean Platelet Volume 8.9 fL (9.4-12.4); Monocytes # 0.7 K/mcL (0.0-1.3); Monocytes % 12.6 %; Neutrophils # 4.2 K/mcL (1.6-8.9); Platelet Count 228 K/mcL (140-400); Red Blood Count 3.57 M/mcL (4.19-5.50); Red Cell Distribution Width 14.3 % (11.5-14.5); Segmented Neutrophils % 70.7 %; White Blood Count 5.9 K/mcL (4.3-11.1)
[2019-07-01 18:52] LABS: Calcium 8.5 mg/dL (8.6-10.3); Potassium 4.6 mEq/L (3.5-5.1)
[2019-07-01 18:55] LABS: Troponin I 0.04 ng/mL (< 0.04)
[2019-07-01 19:45] LABS: Adenovirus Not Detected (Not Detect); Bordetella Pertussis Not Detected (Not Detect); Chlamydophila pneumoniae Not Detected (Not Detect); Coronavirus 229E Not Detected (Not Detect); Coronavirus HKU1 Not Detected (Not Detect); Coronavirus NL63 Not Detected (Not Detect); Coronavirus OC43 Not Detected (Not Detect); Human Metapneumovirus Not Detected (Not Detect); Human Rhinovirus/Enterovirus Not Detected (Not Detect); Influenza A Subtype 2009 H1 Not Detected (Not Detect); Influenza B Not Detected (Not Detect); Mycoplasma pneumoniae Not Detected (Not Detect); Parainfluenza Virus 1 Not Detected (Not Detect); Parainfluenza Virus 2 Not Detected (Not Detect); Parainfluenza Virus 3 Not Detected (Not Detect); Parainfluenza Virus 4 Not Detected (Not Detect); Respiratory Syncytial Virus Not Detected (Not Detect)
[2019-07-01] MEDS ORDERED: *HR* Labetalol 20 MG/4 ML SYRINGE IVP PRN (20:35)
[2019-07-01] MEDS ORDERED: Bisacodyl 10 MG RECTAL SUPPOSITORY RC SCH (20:45)
[2019-07-01] MEDS ORDERED: *HR* Labetalol 20 MG/4 ML SYRINGE IVP ONE (20:52)
[2019-07-01] MEDS: Ondansetron ODT 4 MG TAB.RAPDIS SL PRN (21:16)
[2019-07-01] MEDS: Insulin DETEMIR 100 UNIT/ML X5UNITS SQ SCH (21:37)
[2019-07-01 22:13] LABS: ABG Base Excess 5 mEq/L (-2 to 3); ABG HCO3 27 mEq/L (21-27); ABG Oxygen Saturation 97 % (95-98); ABG PCO2 31 mmHg (35-45); ABG PH 7.55 pH Units (7.32-7.45); ABG PO2 76 mmHg (85-104); ABG TCO2 28 mEq/L (20-26)
[2019-07-01] MEDS ORDERED: Dextrose Gel 15 GM/37.5 ML TUBE PO PRN ×2 (22:40)
[2019-07-01] MEDS ORDERED: *HR* Dextrose 50 % in Water (Syg) 50 ML SYRINGE IVP PRN (22:40)
[2019-07-01] MEDS ORDERED: D5% in Water 1,000 ML IVC PRN (22:40)
[2019-07-01] MEDS ORDERED: Aspirin Enteric Coated 325 MG Tablet PO ONE (22:46)
[2019-07-01] MEDS ORDERED: Naloxone 0.4 MG/ML INJ IVP PRN (22:46)
[2019-07-02 00:47] LABS: Basophils % 0.7 %; Eosinophils # 0.2 K/mcL (0.0-0.6); Eosinophils % 3.3 %; Hematocrit 34.8 % (37.5-50.1); Hemoglobin 11.2 g/dL (12.9-16.9); Immature Granulocytes % 0.3 % (0-4); Lymphocytes # 0.6 K/mcL (0.6-4.6); Lymphocytes % 10.4 %; Mean Corpuscular HGB Conc 32.2 g/dL (31.6-35.5); Mean Corpuscular Hemoglobin 29.9 pg (28.0-33.3); Mean Platelet Volume 8.8 fL (9.4-12.4); Monocytes # 0.7 K/mcL (0.0-1.3); Monocytes % 11.1 %; Neutrophils # 4.5 K/mcL (1.6-8.9); Platelet Count 232 K/mcL (140-400); Red Blood Count 3.74 M/mcL (4.19-5.50); Red Cell Distribution Width 14.7 % (11.5-14.5); Segmented Neutrophils % 74.2 %
[2019-07-02 01:07] LABS: Albumin 3.6 g/dL (3.5-5.7); Bilirubin,Total 0.5 mg/dL (0.3-1.0); Calcium 8.5 mg/dL (8.6-10.3); Globulin 3.5 g/dL (2.4-3.5); Magnesium 1.5 mg/dL (1.6-2.6); Phosphorous 4.4 mg/dL (2.7-4.5); Potassium 4.8 mEq/L (3.5-5.1); Total Protein 7.1 g/dL (6.4-8.9)
[2019-07-02] MEDS ORDERED: Naloxone 0.4 MG/ML INJ IVP PRN (04:02)
[2019-07-02] MEDS: *HR* Heparin 5,000 UNIT/ML VIAL SQ SCH ×2 (07:33→19:11)
[2019-07-02] MEDS: Insulin LISPRO 300 UNITS/3 ML VIAL SQ SCH ×3 (07:40→17:33)
[2019-07-02] MEDS: amLODIPine 5 MG TABLET PO SCH (08:27)
[2019-07-02] MEDS: Aspirin Enteric Coated 81 MG Tablet PO SCH (08:27)
[2019-07-02] MEDS: Metoprolol XL (24 HR) Succ 50 MG TAB.ER.24H PO SCH (08:27)
[2019-07-02] MEDS ORDERED: 0.9 % Sodium Chloride 250 ML IVC PRN (09:08)
[2019-07-02] MEDS ORDERED: 0.9 % Sodium Chloride 1,000 ML PRIME SCH (09:15)
[2019-07-02 09:40] LABS: Bilirubin,Urine Negative (Negative); Blood,Urine Negative (Negative); Clarity,Urine Clear (Clear); Color,Urine Yellow (Yellow); Glucose,Urine (UA) 250 mg/dL (Normal); Ketones,Urine Negative (Negative); Leukocyte Esterase,Urine Negative (Negative); Nitrite,Urine Negative (Negative); Protein,Urine >=300 mg/dL (Neg-Trace); Specific Gravity,Urine 1.016 (1.010-1.025); Urobilinogen,Urine Normal (Normal)
[2019-07-02 09:43] LABS: Bacteria,Urine None Seen per hpf (None-Few); Hyaline Casts,Urine None Seen per lpf (None-Few); Squamous Epithelial Cell,Urine Many per lpf (None-Few); WBC,Urine 0-3 per hpf (0-3)
[2019-07-02] MEDS: Acetaminophen 325 MG TABLET PO PRN (20:59)
[2019-07-02] MEDS: Insulin DETEMIR 100 UNIT/ML X5UNITS SQ SCH (21:00)
[2019-07-03] MEDS: Albuterol 2.5 MG/3 ML NEBULIZER IH PRN ×4 (00:18→21:25)
[2019-07-03 04:44] LABS: Calcium 8.5 mg/dL (8.6-10.3); Magnesium 1.8 mg/dL (1.6-2.6); Phosphorous 7.3 mg/dL (2.7-4.5); Potassium 5.2 mEq/L (3.5-5.1)
[2019-07-03 05:48] LABS: Acinetobacter baumannii by PCR Not Detected (Not Detect); Candida albicans by PCR Not Detected (Not Detect); Candida glabrata by PCR Not Detected (Not Detect); Candida krusei by PCR Not Detected (Not Detect); Candida parapsilosis by PCR Not Detected (Not Detect); Candida tropicalis by PCR Not Detected (Not Detect); Enterobacter cloacae Cmplx PCR Not Detected (Not Detect); Enterobacteriaceae by PCR Not Detected (Not Detect); Enterococcus by PCR Not Detected (Not Detect); Escherichia coli by PCR Not Detected (Not Detect); Klebsiella oxytoca by PCR Not Detected (Not Detect); Klebsiella pneumoniae by PCR Not Detected (Not Detect); Proteus by PCR Not Detected (Not Detect); Pseudomonas aeruginosa by PCR Not Detected (Not Detect); Serratia marcescens by PCR Not Detected (Not Detect); Staphylococcus aureus by PCR Not Detected (Not Detect); Staphylococcus by PCR DETECTED (Not Detect); Streptococcus agalactiae(B)PCR Not Detected (Not Detect); Streptococcus by PCR Not Detected (Not Detect); Streptococcus pneumoniae PCR Not Detected (Not Detect); Streptococcus pyogenes (A) PCR Not Detected (Not Detect); mecA Methicillin-Resist Gene DETECTED (Not Detect)
[2019-07-03] MEDS: *HR* Heparin 5,000 UNIT/ML VIAL SQ SCH ×2 (06:10→16:49)
[2019-07-03] MEDS: amLODIPine 5 MG TABLET PO SCH (08:36)
[2019-07-03] MEDS: Aspirin Enteric Coated 81 MG Tablet PO SCH (08:37)
[2019-07-03] MEDS: Metoprolol XL (24 HR) Succ 50 MG TAB.ER.24H PO SCH (08:37)
[2019-07-03] MEDS: Insulin LISPRO 300 UNITS/3 ML VIAL SQ SCH ×3 (08:43→16:49)
[2019-07-03] MEDS: Ondansetron ODT 4 MG TAB.RAPDIS SL PRN (16:48)
[2019-07-03] MEDS: *HR* Labetalol 20 MG/4 ML SYRINGE IVP PRN ×2 (16:49→21:05)
[2019-07-03] MEDS: Acetaminophen 325 MG TABLET PO PRN (21:01)
[2019-07-03] MEDS: Insulin DETEMIR 100 UNIT/ML X5UNITS SQ SCH (21:02)
[2019-07-04] MEDS: Acetaminophen 325 MG TABLET PO PRN ×3 (02:21→20:35)
[2019-07-04 04:40] LABS: Basophils % 0.4 %; Eosinophils # 0.2 K/mcL (0.0-0.6); Immature Granulocytes % 0.4 % (0-4); Lymphocytes # 0.8 K/mcL (0.6-4.6); Lymphocytes % 13.9 %; Mean Corpuscular HGB Conc 31.4 g/dL (31.6-35.5); Mean Corpuscular Hemoglobin 29.9 pg (28.0-33.3); Mean Corpuscular Volume 95.2 fL (83.0-100.0); Mean Platelet Volume 9.5 fL (9.4-12.4); Monocytes # 0.6 K/mcL (0.0-1.3); Monocytes % 10.8 %; Neutrophils # 3.8 K/mcL (1.6-8.9); Platelet Count 155 K/mcL (140-400); Red Blood Count 2.94 M/mcL (4.19-5.50); Red Cell Distribution Width 14.8 % (11.5-14.5); Segmented Neutrophils % 70.5 %; White Blood Count 5.5 K/mcL (4.3-11.1)
[2019-07-04 04:42] LABS: Hemoglobin 8.8 g/dL (12.9-16.9)
[2019-07-04 05:02] LABS: Magnesium 1.7 mg/dL (1.6-2.6); Phosphorous 7.9 mg/dL (2.7-4.5); Potassium 6.2 mEq/L (3.5-5.1)
[2019-07-04] MEDS ORDERED: Calcium Gluconate 1,000 MG/10 ML VIAL IVPB ONE (06:02)
[2019-07-04] MEDS: *HR* Heparin 5,000 UNIT/ML VIAL SQ SCH ×2 (06:11→18:26)
[2019-07-04] MEDS ORDERED: Calcium Gluconate 1gm/50mL 1 GM/50 ML BAG IVPB ONE (06:30)
[2019-07-04] MEDS: Albuterol 2.5 MG/3 ML NEBULIZER IH PRN ×2 (06:47→10:50)
[2019-07-04] MEDS: Ondansetron ODT 4 MG TAB.RAPDIS SL PRN (06:56)
[2019-07-04] MEDS: Nitroglycerin 0.4 MG TAB.SUBL SL PRN ×2 (06:57→07:03)
[2019-07-04] MEDS ORDERED: 0.9 % Sodium Chloride 250 ML IVC PRN (07:23)
[2019-07-04] MEDS ORDERED: *HR* Heparin 10,000 UNIT/10 ML VIAL IV PRN (07:23)
[2019-07-04] MEDS: Metoprolol XL (24 HR) Succ 50 MG TAB.ER.24H PO SCH (08:17)
[2019-07-04] MEDS: Aspirin Enteric Coated 81 MG Tablet PO SCH (08:17)
[2019-07-04] MEDS: amLODIPine 5 MG TABLET PO SCH (08:17)
[2019-07-04] MEDS ORDERED: hydrALAZINE 25 MG TABLET PO SCH (09:00)
[2019-07-04] MEDS: Insulin LISPRO 300 UNITS/3 ML VIAL SQ SCH ×3 (09:07→16:43)
[2019-07-04] MEDS: hydrALAZINE 25 MG TABLET PO SCH ×2 (14:55→19:58)
[2019-07-04] MEDS: Insulin DETEMIR 100 UNIT/ML X5UNITS SQ SCH (19:58)
[2019-07-04 21:38] LABS: ABG Base Excess 3 mEq/L (-2 to 3); ABG HCO3 25 mEq/L (21-27); ABG Oxygen Saturation 95 % (95-98); ABG PCO2 29 mmHg (35-45); ABG PH 7.56 pH Units (7.32-7.45); ABG PO2 64 mmHg (85-104); ABG TCO2 26 mEq/L (20-26)
[2019-07-04] MEDS ORDERED: Isovue-370 500 ML BOTTLE IVP ONE (22:22)
[2019-07-04 22:59] LABS: Basophils % 0.2 %; Hematocrit 28.6 % (37.5-50.1); Hemoglobin 9.3 g/dL (12.9-16.9); Immature Granulocytes % 0.3 % (0-4); Lymphocytes # 0.5 K/mcL (0.6-4.6); Lymphocytes % 7.7 %; Mean Corpuscular HGB Conc 32.5 g/dL (31.6-35.5); Mean Corpuscular Hemoglobin 30.2 pg (28.0-33.3); Mean Corpuscular Volume 92.9 fL (83.0-100.0); Mean Platelet Volume 9.3 fL (9.4-12.4); Monocytes # 0.4 K/mcL (0.0-1.3); Monocytes % 6.8 %; Platelet Count 139 K/mcL (140-400); Red Blood Count 3.08 M/mcL (4.19-5.50); Red Cell Distribution Width 14.7 % (11.5-14.5); White Blood Count 5.9 K/mcL (4.3-11.1)
[2019-07-04 23:06] LABS: INR 1.2; Prothrombin Time 14.1 Seconds (9.4-12.1)
[2019-07-04 23:23] LABS: Calcium 8.1 mg/dL (8.6-10.3)
[2019-07-04 23:27] LABS: Troponin I 7.83 ng/mL (< 0.04)
[2019-07-05] MEDS ORDERED: *HR* Heparin 5,000 UNIT/ML VIAL IVP PRN ×2 (00:26)
[2019-07-05] MEDS ORDERED: Aspirin Enteric Coated 81 MG Tablet PO ONE (00:27)
[2019-07-05] MEDS ORDERED: *HR* Labetalol 20 MG/4 ML SYRINGE IVP PRN (00:28)
[2019-07-05] MEDS: Heparin 25,000 UNIT/250 ML D5W 25,000 UNIT/250 ML IV.SOLN IVC SCH (00:53)
[2019-07-05] MEDS: Acetaminophen 325 MG TABLET PO PRN ×2 (01:50→16:22)
[2019-07-05] MEDS: Piperacillin/Tazobactam 3.375 GM in 0.9 % Sodium Chloride Mini Bag 100 ML IVPB SCH ×3 (02:20→16:23)
[2019-07-05] MEDS: Albuterol 2.5 MG/3 ML NEBULIZER IH PRN (03:52)
[2019-07-05] MEDS: Ondansetron ODT 4 MG TAB.RAPDIS SL PRN ×2 (09:05→23:04)
[2019-07-05] MEDS: Aspirin Enteric Coated 81 MG Tablet PO SCH (09:06)
[2019-07-05] MEDS: Metoprolol XL (24 HR) Succ 50 MG TAB.ER.24H PO SCH (09:06)
[2019-07-05] MEDS: amLODIPine 5 MG TABLET PO SCH (09:07)
[2019-07-05] MEDS: Insulin LISPRO 300 UNITS/3 ML VIAL SQ SCH ×3 (09:07→17:33)
[2019-07-05] MEDS: levoFLOXacin 750 MG/150 ML 750 MG/150 ML BAG IVPB SCH (09:07)
[2019-07-05 09:52] LABS: Basophils % 0.2 %; Hematocrit 28.2 % (37.5-50.1); Immature Granulocytes % 0.4 % (0-4); Lymphocytes # 0.7 K/mcL (0.6-4.6); Lymphocytes % 14.3 %; Mean Corpuscular HGB Conc 31.9 g/dL (31.6-35.5); Mean Corpuscular Hemoglobin 29.8 pg (28.0-33.3); Mean Corpuscular Volume 93.4 fL (83.0-100.0); Mean Platelet Volume 9.6 fL (9.4-12.4); Monocytes # 0.3 K/mcL (0.0-1.3); Monocytes % 6.2 %; Neutrophils # 4.1 K/mcL (1.6-8.9); Platelet Count 147 K/mcL (140-400); Red Blood Count 3.02 M/mcL (4.19-5.50); Red Cell Distribution Width 14.7 % (11.5-14.5); Segmented Neutrophils % 78.9 %; White Blood Count 5.2 K/mcL (4.3-11.1)
[2019-07-05 10:14] LABS: Calcium 8.1 mg/dL (8.6-10.3); Potassium 4.8 mEq/L (3.5-5.1)
[2019-07-05 10:21] LABS: Troponin I 7.97 ng/mL (< 0.04)
[2019-07-05] MEDS: Isosorbide MONOnitrate (24 HR) 30 MG TAB.ER.24H PO SCH (12:28)
[2019-07-05] MEDS: Insulin DETEMIR 100 UNIT/ML X5UNITS SQ SCH (21:01)
[2019-07-06] MEDS: Heparin 25,000 UNIT/250 ML D5W 25,000 UNIT/250 ML IV.SOLN IVC SCH (00:19)
[2019-07-06] MEDS: Albuterol 2.5 MG/3 ML NEBULIZER IH PRN ×2 (00:57→22:47)
[2019-07-06 04:56] LABS: Basophils % 0.3 %; Eosinophils % 0.5 %; Hematocrit 25.8 % (37.5-50.1); Hemoglobin 8.5 g/dL (12.9-16.9); Immature Granulocytes % 0.3 % (0-4); Lymphocytes # 0.9 K/mcL (0.6-4.6); Lymphocytes % 23.9 %; Mean Corpuscular HGB Conc 32.9 g/dL (31.6-35.5); Mean Corpuscular Hemoglobin 30.9 pg (28.0-33.3); Mean Corpuscular Volume 93.8 fL (83.0-100.0); Mean Platelet Volume 9.1 fL (9.4-12.4); Monocytes # 0.3 K/mcL (0.0-1.3); Monocytes % 8.9 %; Neutrophils # 2.5 K/mcL (1.6-8.9); Platelet Count 124 K/mcL (140-400); Red Blood Count 2.75 M/mcL (4.19-5.50); Red Cell Distribution Width 14.8 % (11.5-14.5); Segmented Neutrophils % 66.1 %; White Blood Count 3.8 K/mcL (4.3-11.1)
[2019-07-06] MEDS: Piperacillin/Tazobactam 3.375 GM in 0.9 % Sodium Chloride Mini Bag 100 ML IVPB SCH ×2 (05:09→17:29)
[2019-07-06 05:21] LABS: Calcium 8.2 mg/dL (8.6-10.3); Magnesium 1.9 mg/dL (1.6-2.6); Phosphorous 9.9 mg/dL (2.7-4.5); Potassium 5.6 mEq/L (3.5-5.1)
[2019-07-06] MEDS ORDERED: 0.9 % Sodium Chloride 250 ML IVC PRN (07:47)
[2019-07-06] MEDS ORDERED: *HR* Heparin 10,000 UNIT/10 ML VIAL IV PRN (07:47)
[2019-07-06] MEDS ORDERED: 0.9 % Sodium Chloride 1,000 ML PRIME SCH (08:00)
[2019-07-06] MEDS: Acetaminophen 325 MG TABLET PO PRN (09:01)
[2019-07-06] MEDS: Insulin LISPRO 300 UNITS/3 ML VIAL SQ SCH ×3 (11:24→17:19)
[2019-07-06] MEDS: amLODIPine 5 MG TABLET PO SCH (12:13)
[2019-07-06] MEDS ORDERED: Ibuprofen 600 MG TABLET PO ONE ×2 (12:33)
[2019-07-06] MEDS: Ondansetron ODT 4 MG TAB.RAPDIS SL PRN (12:47)
[2019-07-06] MEDS: Metoprolol XL (24 HR) Succ 50 MG TAB.ER.24H PO SCH (12:48)
[2019-07-06] MEDS: Isosorbide MONOnitrate (24 HR) 30 MG TAB.ER.24H PO SCH (12:48)
[2019-07-06] MEDS: Aspirin Enteric Coated 81 MG Tablet PO SCH (12:48)
[2019-07-06] MEDS ORDERED: Isovue-370 500 ML BOTTLE IVP ONE (14:30)
[2019-07-06] MEDS: Insulin DETEMIR 100 UNIT/ML X5UNITS SQ SCH (20:24)
[2019-07-07 00:18] LABS: % Iron Saturation 32 % (20-55); Iron 49 mcg/dL (65-175); Transferrin 108 mg/dL (203-362)
[2019-07-07 00:39] LABS: Ferritin > 1500 ng/mL (20-250)
[2019-07-07] MEDS: Piperacillin/Tazobactam 3.375 GM in 0.9 % Sodium Chloride Mini Bag 100 ML IVPB SCH ×2 (04:54→17:39)
[2019-07-07 06:58] LABS: Folate 8.4 ng/mL (3.0-16.0)
[2019-07-07] MEDS: Aspirin Enteric Coated 81 MG Tablet PO SCH (08:08)
[2019-07-07] MEDS: Metoprolol XL (24 HR) Succ 50 MG TAB.ER.24H PO SCH (08:08)
[2019-07-07] MEDS: amLODIPine 5 MG TABLET PO SCH (08:08)
[2019-07-07] MEDS: hydrALAZINE 10 MG TABLET PO SCH ×3 (08:08→22:18)
[2019-07-07] MEDS: Insulin LISPRO 300 UNITS/3 ML VIAL SQ SCH ×3 (08:09→15:35)
[2019-07-07] MEDS: Isosorbide MONOnitrate (24 HR) 30 MG TAB.ER.24H PO SCH (08:09)
[2019-07-07] MEDS: levoFLOXacin 750 MG/150 ML 750 MG/150 ML BAG IVPB SCH (08:11)
[2019-07-07 08:47] LABS: Hematocrit 25.7 % (37.5-50.1); Hemoglobin 8.5 g/dL (12.9-16.9); Mean Corpuscular HGB Conc 33.1 g/dL (31.6-35.5); Mean Corpuscular Hemoglobin 31.1 pg (28.0-33.3); Mean Corpuscular Volume 94.1 fL (83.0-100.0); Mean Platelet Volume 9.5 fL (9.4-12.4); Platelet Count 152 K/mcL (140-400); Red Blood Count 2.73 M/mcL (4.19-5.50); Red Cell Distribution Width 14.3 % (11.5-14.5); White Blood Count 3.9 K/mcL (4.3-11.1)
[2019-07-07 09:06] LABS: Potassium 4.5 mEq/L (3.5-5.1)
[2019-07-07] MEDS ORDERED: Azithromycin 500 MG in 0.9 % Sodium Chloride 250 ML IVPB SCH (10:00)
[2019-07-07] MEDS: Ondansetron ODT 4 MG TAB.RAPDIS SL PRN ×2 (11:43→18:45)
[2019-07-07] MEDS: Heparin 25,000 UNIT/250 ML D5W 25,000 UNIT/250 ML IV.SOLN IVC SCH (11:45)
[2019-07-07] MEDS: Ranolazine 500 MG TAB.ER.12H PO SCH ×2 (12:24→22:18)
[2019-07-07] MEDS ORDERED: *HR* Promethazine 25 MG/ML VIAL IVP ONE (20:48)
[2019-07-07] MEDS: Insulin DETEMIR 100 UNIT/ML X5UNITS SQ SCH (22:16)
[2019-07-08] MEDS: Acetaminophen 325 MG TABLET PO PRN (02:43)
[2019-07-08 03:09] LABS: Hematocrit 24.3 % (37.5-50.1); Hemoglobin 7.9 g/dL (12.9-16.9); Mean Corpuscular HGB Conc 32.5 g/dL (31.6-35.5); Mean Corpuscular Hemoglobin 30.2 pg (28.0-33.3); Mean Corpuscular Volume 92.7 fL (83.0-100.0); Mean Platelet Volume 9.5 fL (9.4-12.4); Platelet Count 162 K/mcL (140-400); Red Blood Count 2.62 M/mcL (4.19-5.50); Red Cell Distribution Width 14.4 % (11.5-14.5); White Blood Count 4.9 K/mcL (4.3-11.1)
[2019-07-08 03:27] LABS: Calcium 7.7 mg/dL (8.6-10.3); Potassium 4.5 mEq/L (3.5-5.1)
[2019-07-08] MEDS: Piperacillin/Tazobactam 3.375 GM in 0.9 % Sodium Chloride Mini Bag 100 ML IVPB SCH ×2 (06:17→17:58)
[2019-07-08] MEDS ORDERED: *HR* Heparin 10,000 UNIT/10 ML VIAL IV PRN (07:08)
[2019-07-08] MEDS ORDERED: 0.9 % Sodium Chloride 250 ML IVC PRN (07:08)
[2019-07-08] MEDS ORDERED: 0.9 % Sodium Chloride 1,000 ML PRIME SCH (07:15)
[2019-07-08] MEDS: Ranolazine 500 MG TAB.ER.12H PO SCH ×2 (07:56→22:29)
[2019-07-08] MEDS: amLODIPine 5 MG TABLET PO SCH (07:57)
[2019-07-08] MEDS: Aspirin Enteric Coated 81 MG Tablet PO SCH (07:57)
[2019-07-08] MEDS: Insulin LISPRO 300 UNITS/3 ML VIAL SQ SCH ×3 (07:57→16:22)
[2019-07-08] MEDS: hydrALAZINE 10 MG TABLET PO SCH (07:59)
[2019-07-08] MEDS: Isosorbide MONOnitrate (24 HR) 30 MG TAB.ER.24H PO SCH (07:59)
[2019-07-08] MEDS: Metoprolol XL (24 HR) Succ 50 MG TAB.ER.24H PO SCH (08:00)
[2019-07-08] MEDS: Heparin 25,000 UNIT/250 ML D5W 25,000 UNIT/250 ML IV.SOLN IVC SCH (10:58)
[2019-07-08] MEDS ORDERED: hydrALAZINE 10 MG TABLET PO PRN (13:01)
[2019-07-08] MEDS ORDERED: Vancomycin 500 MG in 0.9 % Sodium Chloride Mini Bag 100 ML IVPB ONE (15:00)
[2019-07-08] MEDS: *HR* Heparin 5,000 UNIT/ML VIAL SQ SCH (17:59)
[2019-07-08] MEDS: Insulin DETEMIR 100 UNIT/ML X5UNITS SQ SCH (22:29)
[2019-07-09] MEDS: Ondansetron 4 MG/2 ML VIAL IVP PRN (01:38)
[2019-07-09 02:15] LABS: Hematocrit 26.4 % (37.5-50.1); Hemoglobin 8.4 g/dL (12.9-16.9); Mean Corpuscular HGB Conc 31.8 g/dL (31.6-35.5); Mean Corpuscular Hemoglobin 29.4 pg (28.0-33.3); Mean Corpuscular Volume 92.3 fL (83.0-100.0); Mean Platelet Volume 9.4 fL (9.4-12.4); Platelet Count 200 K/mcL (140-400); Red Blood Count 2.86 M/mcL (4.19-5.50); Red Cell Distribution Width 14.1 % (11.5-14.5); White Blood Count 5.5 K/mcL (4.3-11.1)
[2019-07-09 02:21] LABS: Calcium 8.3 mg/dL (8.6-10.3); Phosphorous 5.9 mg/dL (2.7-4.5); Potassium 4.3 mEq/L (3.5-5.1)
[2019-07-09] MEDS: Piperacillin/Tazobactam 3.375 GM in 0.9 % Sodium Chloride Mini Bag 100 ML IVPB SCH ×2 (06:04→16:58)
[2019-07-09] MEDS: *HR* Heparin 5,000 UNIT/ML VIAL SQ SCH ×2 (06:04→16:58)
[2019-07-09] MEDS: amLODIPine 5 MG TABLET PO SCH (08:00)
[2019-07-09] MEDS: Aspirin Enteric Coated 81 MG Tablet PO SCH (08:00)
[2019-07-09] MEDS: levoFLOXacin 500 MG/100 ML 500 MG/100 ML BAG IVPB SCH (08:01)
[2019-07-09] MEDS: Isosorbide MONOnitrate (24 HR) 30 MG TAB.ER.24H PO SCH (08:02)
[2019-07-09] MEDS: Metoprolol XL (24 HR) Succ 50 MG TAB.ER.24H PO SCH (08:02)
[2019-07-09] MEDS: Ranolazine 500 MG TAB.ER.12H PO SCH ×2 (08:02→23:18)
[2019-07-09] MEDS: Insulin LISPRO 300 UNITS/3 ML VIAL SQ SCH ×3 (08:03→16:56)
[2019-07-09] MEDS: Calcium Acetate 667 MG CAPSULE PO SCH ×3 (08:12→16:58)
[2019-07-10 03:50] LABS: Basophils % 0.2 %; Eosinophils # 0.3 K/mcL (0.0-0.6); Eosinophils % 4.3 %; Hematocrit 26.4 % (37.5-50.1); Hemoglobin 8.4 g/dL (12.9-16.9); Immature Granulocytes % 0.5 % (0-4); Lymphocytes % 15.2 %; Mean Corpuscular HGB Conc 31.8 g/dL (31.6-35.5); Mean Corpuscular Hemoglobin 29.3 pg (28.0-33.3); Mean Platelet Volume 9.2 fL (9.4-12.4); Monocytes # 0.6 K/mcL (0.0-1.3); Monocytes % 9.1 %; Neutrophils # 4.6 K/mcL (1.6-8.9); Platelet Count 238 K/mcL (140-400); Red Blood Count 2.87 M/mcL (4.19-5.50); Segmented Neutrophils % 70.7 %; White Blood Count 6.6 K/mcL (4.3-11.1)
[2019-07-10 04:13] LABS: Calcium 8.8 mg/dL (8.6-10.3); Magnesium 2.2 mg/dL (1.6-2.6); Potassium 4.1 mEq/L (3.5-5.1)
[2019-07-10] MEDS: *HR* Heparin 5,000 UNIT/ML VIAL SQ SCH ×2 (05:56→17:04)
[2019-07-10] MEDS: Piperacillin/Tazobactam 3.375 GM in 0.9 % Sodium Chloride Mini Bag 100 ML IVPB SCH ×2 (05:56→17:05)
[2019-07-10] MEDS: Insulin LISPRO 300 UNITS/3 ML VIAL SQ SCH ×3 (06:05→17:05)
[2019-07-10] MEDS: Calcium Acetate 667 MG CAPSULE PO SCH ×3 (08:17→17:04)
[2019-07-10] MEDS: Metoprolol XL (24 HR) Succ 50 MG TAB.ER.24H PO SCH (08:17)
[2019-07-10] MEDS: amLODIPine 5 MG TABLET PO SCH (08:17)
[2019-07-10] MEDS: Ranolazine 500 MG TAB.ER.12H PO SCH ×2 (08:17→20:21)
[2019-07-10] MEDS: Isosorbide MONOnitrate (24 HR) 30 MG TAB.ER.24H PO SCH (08:18)
[2019-07-10] MEDS: Aspirin Enteric Coated 81 MG Tablet PO SCH (08:18)
[2019-07-10] MEDS ORDERED: Insulin DETEMIR 100 UNIT/ML X5UNITS SQ SCH (09:00)
[2019-07-10] MEDS: Ondansetron 4 MG/2 ML VIAL IVP PRN (09:46)
[2019-07-10] MEDS ORDERED: *HR* Dextrose 50 % in Water (Syg) 50 ML SYRINGE IVP PRN (12:03)
[2019-07-10] MEDS ORDERED: Dextrose Gel 15 GM/37.5 ML TUBE PO PRN ×2 (12:03)
[2019-07-10] MEDS ORDERED: D5% in Water 1,000 ML IVC PRN (12:03)
[2019-07-10] MEDS: Ondansetron 4 MG/2 ML VIAL IVP SCH (18:28)
[2019-07-11] MEDS ORDERED: Ondansetron 4 MG/2 ML VIAL IVP SCH
[2019-07-11] MEDS: Ondansetron 4 MG/2 ML VIAL IVP SCH (01:17)
[2019-07-11 02:18] LABS: Basophils % 0.3 %; Eosinophils # 0.2 K/mcL (0.0-0.6); Eosinophils % 3.5 %; Hematocrit 26.3 % (37.5-50.1); Hemoglobin 8.5 g/dL (12.9-16.9); Immature Granulocytes % 0.3 % (0-4); Lymphocytes # 1.3 K/mcL (0.6-4.6); Lymphocytes % 18.5 %; Mean Corpuscular HGB Conc 32.3 g/dL (31.6-35.5); Mean Corpuscular Volume 92.9 fL (83.0-100.0); Mean Platelet Volume 9.4 fL (9.4-12.4); Monocytes # 0.7 K/mcL (0.0-1.3); Monocytes % 10.4 %; Neutrophils # 4.6 K/mcL (1.6-8.9); Platelet Count 280 K/mcL (140-400); Red Blood Count 2.83 M/mcL (4.19-5.50); White Blood Count 6.8 K/mcL (4.3-11.1)
[2019-07-11 02:29] LABS: Calcium 8.8 mg/dL (8.6-10.3); Magnesium 2.4 mg/dL (1.6-2.6); Potassium 4.1 mEq/L (3.5-5.1)
[2019-07-11] MEDS: Piperacillin/Tazobactam 3.375 GM in 0.9 % Sodium Chloride Mini Bag 100 ML IVPB SCH (06:58)
[2019-07-11] MEDS: *HR* Heparin 5,000 UNIT/ML VIAL SQ SCH (06:59)
[2019-07-11] MEDS ORDERED: 0.9 % Sodium Chloride 250 ML IVC PRN (07:19)
[2019-07-11] MEDS: Insulin LISPRO 300 UNITS/3 ML VIAL SQ SCH ×3 (07:50→16:27)
[2019-07-11] MEDS: Calcium Acetate 667 MG CAPSULE PO SCH ×3 (07:51→16:27)
[2019-07-11] MEDS: amLODIPine 5 MG TABLET PO SCH (07:51)
[2019-07-11] MEDS: Ranolazine 500 MG TAB.ER.12H PO SCH (07:51)
[2019-07-11] MEDS: Aspirin Enteric Coated 81 MG Tablet PO SCH (07:51)
[2019-07-11] MEDS: Isosorbide MONOnitrate (24 HR) 30 MG TAB.ER.24H PO SCH (12:01)
[2019-07-11] MEDS: levoFLOXacin 500 MG/100 ML 500 MG/100 ML BAG IVPB SCH (12:02)
[2019-07-11] MEDS: Metoprolol XL (24 HR) Succ 50 MG TAB.ER.24H PO SCH (12:02)
[2019-07-11 12:21] VITALS: BP 138/86
[2019-07-11] MEDS ORDERED: Aminoglycoside Consult 1 EACH MC ONE (19:29)
== END 2019-07-11 19:30 | DRG 871 ==
LOC: 2ANU 15:46 → EMEROOARM 15:46 → SUATTDRO 19:16 → 2ANU 20:15 → SUATTDRO 07-03 11:58 → 2ANU 07-04 17:54 → 2NNU 07-05 01:33 → 2NENU 07-07 16:29 → 2NNU 07-08 21:59
PROVIDERS: ADMIT Family Medicine; ATTEND Pharmacist

== ENCOUNTER 2019-07-19 10:37 | Inpatient (IN) ==
[2019-07-19 12:28] LABS: Basophils % 0.5 %; Eosinophils # 0.2 K/mcL (0.0-0.6); Eosinophils % 2.5 %; Hemoglobin 8.4 g/dL (12.9-16.9); Immature Granulocytes % 0.4 % (0-4); Lymphocytes # 1.3 K/mcL (0.6-4.6); Lymphocytes % 16.4 %; Mean Corpuscular HGB Conc 31.1 g/dL (31.6-35.5); Mean Corpuscular Hemoglobin 29.7 pg (28.0-33.3); Mean Corpuscular Volume 95.4 fL (83.0-100.0); Mean Platelet Volume 8.8 fL (9.4-12.4); Monocytes # 0.9 K/mcL (0.0-1.3); Monocytes % 11.4 %; Neutrophils # 5.6 K/mcL (1.6-8.9); Platelet Count 233 K/mcL (140-400); Red Blood Count 2.83 M/mcL (4.19-5.50); Segmented Neutrophils % 68.8 %; White Blood Count 8.1 K/mcL (4.3-11.1)
[2019-07-19 12:38] LABS: Prothrombin Time 11.6 Seconds (9.4-12.1)
[2019-07-19 12:41] LABS: Activated Partial Thrombo Time 29.9 Seconds (26.0-36.0)
[2019-07-19 13:02] LABS: Albumin 3.7 g/dL (3.5-5.7); Albumin/Globulin Ratio 1.1 (1.1-2.2); Bilirubin,Total 0.3 mg/dL (0.3-1.0); Calcium 9.3 mg/dL (8.6-10.3); Globulin 3.5 g/dL (2.4-3.5); Potassium 4.7 mEq/L (3.5-5.1); Total Protein 7.2 g/dL (6.4-8.9); Troponin I 0.05 ng/mL (< 0.04)
[2019-07-19] MEDS ORDERED: Aspirin 81 MG TAB.CHEW PO SCH ×2 (13:15→14:00)
[2019-07-19] MEDS ORDERED: Aspirin 81 MG TAB.CHEW PO STA (14:00)
[2019-07-19] MEDS ORDERED: Naloxone 0.4 MG/ML INJ IVP PRN (16:15)
[2019-07-19] MEDS ORDERED: 0.9 % Sodium Chloride 1,000 ML IVC SCH (16:30)
[2019-07-19] MEDS: Pantoprazole 40 MG VIAL IVP SCH ×2 (17:31→17:43)
[2019-07-19] MEDS: Insulin LISPRO 300 UNITS/3 ML VIAL SQ SCH ×2 (17:32→20:28)
[2019-07-19] MEDS: Metoprolol XL (24 HR) Succ 50 MG TAB.ER.24H PO SCH (17:37)
[2019-07-19] MEDS ORDERED: 0.9 % Sodium Chloride 500 ML IVC SCH (17:45)
[2019-07-19] MEDS: Ranolazine 500 MG TAB.ER.12H PO SCH (20:27)
[2019-07-19 20:38] LABS: Hematocrit 24.6 % (37.5-50.1); Hemoglobin 7.8 g/dL (12.9-16.9)
[2019-07-19] MEDS: (Sucroferric Oxyhydroxide [Velphoro] 500 MG) PO SCH (20:38)
[2019-07-20 01:32] LABS: Basophils % 0.5 %; Eosinophils # 0.2 K/mcL (0.0-0.6); Eosinophils % 3.1 %; Hematocrit 24.9 % (37.5-50.1); Hemoglobin 7.9 g/dL (12.9-16.9); Immature Granulocytes % 0.3 % (0-4); Lymphocytes # 1.1 K/mcL (0.6-4.6); Lymphocytes % 18.4 %; Mean Corpuscular HGB Conc 31.7 g/dL (31.6-35.5); Mean Corpuscular Hemoglobin 29.8 pg (28.0-33.3); Mean Platelet Volume 9.1 fL (9.4-12.4); Monocytes # 0.7 K/mcL (0.0-1.3); Neutrophils # 4.1 K/mcL (1.6-8.9); Platelet Count 186 K/mcL (140-400); Red Blood Count 2.65 M/mcL (4.19-5.50); Red Cell Distribution Width 15.4 % (11.5-14.5); Segmented Neutrophils % 65.7 %; White Blood Count 6.2 K/mcL (4.3-11.1)
[2019-07-20 01:52] LABS: Calcium 8.6 mg/dL (8.6-10.3); Potassium 4.5 mEq/L (3.5-5.1)
[2019-07-20] MEDS: Pantoprazole 40 MG VIAL IVP SCH (05:47)
[2019-07-20] MEDS ORDERED: *HR* FentaNYL (PF) 100 MCG/2 ML VIAL ONE (06:36)
[2019-07-20] MEDS ORDERED: Dexamethasone 4 MG/ML VIAL ONE (06:49)
[2019-07-20] MEDS ORDERED: Lidocaine -MPF 2% 2 ML VIAL ONE (06:49)
[2019-07-20] MEDS ORDERED: 0.9 % Sodium Chloride 2,000 ML ONE (07:08)
[2019-07-20] MEDS ORDERED: *HR* Propofol 200 MG/20 ML VIAL IVP ONE (07:20)
[2019-07-20] MEDS ORDERED: 0.9 % Sodium Chloride 250 ML IVC PRN (07:36)
[2019-07-20] MEDS ORDERED: 0.9 % Sodium Chloride 1,000 ML PRIME SCH (07:45)
[2019-07-20] MEDS ORDERED: 0.9 % Sodium Chloride 500 ML IVC SCH (07:45)
[2019-07-20] MEDS ORDERED: Ondansetron 4 MG/2 ML VIAL ONE (07:59)
[2019-07-20] MEDS ORDERED: *HR* EPINEPHrine 1 MG/10 ML SYRINGE INTRATRACH PRN (08:04)
[2019-07-20] MEDS: (Sucroferric Oxyhydroxide [Velphoro] 500 MG) PO SCH ×3 (08:27→20:36)
[2019-07-20] MEDS: Insulin LISPRO 300 UNITS/3 ML VIAL SQ SCH ×4 (08:27→20:36)
[2019-07-20] MEDS ORDERED: Ipratropium/Albuterol Neb 3 ML IH PRN (10:31)
[2019-07-20] MEDS: levoFLOXacin 250 MG TABLET PO SCH (13:02)
[2019-07-20] MEDS: Ranolazine 500 MG TAB.ER.12H PO SCH ×2 (13:02→20:35)
[2019-07-20] MEDS: amLODIPine 5 MG TABLET PO SCH (13:02)
[2019-07-20] MEDS: Metoprolol XL (24 HR) Succ 50 MG TAB.ER.24H PO SCH (13:02)
[2019-07-21 04:04] LABS: Mean Corpuscular HGB Conc 33.3 g/dL (31.6-35.5); Mean Corpuscular Hemoglobin 30.4 pg (28.0-33.3); Mean Corpuscular Volume 91.3 fL (83.0-100.0); Platelet Count 176 K/mcL (140-400); Red Blood Count 2.63 M/mcL (4.19-5.50); Red Cell Distribution Width 15.2 % (11.5-14.5); White Blood Count 5.5 K/mcL (4.3-11.1)
[2019-07-21 04:25] LABS: Calcium 8.7 mg/dL (8.6-10.3); Potassium 4.4 mEq/L (3.5-5.1)
[2019-07-21] MEDS: Metoprolol XL (24 HR) Succ 50 MG TAB.ER.24H PO SCH (10:40)
[2019-07-21] MEDS: Ranolazine 500 MG TAB.ER.12H PO SCH (10:40)
[2019-07-21] MEDS: levoFLOXacin 250 MG TABLET PO SCH (10:40)
[2019-07-21] MEDS: Insulin LISPRO 300 UNITS/3 ML VIAL SQ SCH (10:41)
[2019-07-21] MEDS: amLODIPine 5 MG TABLET PO SCH (10:41)
[2019-07-21] MEDS: (Sucroferric Oxyhydroxide [Velphoro] 500 MG) PO SCH (10:42)
[2019-07-21 12:11] VITALS: BP 173/85
== END 2019-07-21 12:58 | DRG 380 ==
LOC: EMEROOARM 10:37 → 2ANU 10:37 → SUATTDRO 16:15
PROVIDERS: ADMIT Internal Medicine; ATTEND Internal Medicine

== ENCOUNTER 2019-08-30 21:11 | Inpatient (IN) ==
[2019-08-30] MEDS ORDERED: Isovue-370 500 ML BOTTLE IVP ONE (21:31)
[2019-08-30] MEDS ORDERED: *HR* FentaNYL (PF) 100 MCG/2 ML VIAL IVP ONE ×2 (21:31→23:49)
[2019-08-30 22:03] LABS: Basophils % 0.3 %; Eosinophils # 0.1 K/mcL (0.0-0.6); Eosinophils % 0.4 %; Hematocrit 36.9 % (37.5-50.1); Hemoglobin 12.2 g/dL (12.9-16.9); Immature Granulocytes % 0.5 % (0-4); Lymphocytes # 0.7 K/mcL (0.6-4.6); Lymphocytes % 5.5 %; Mean Corpuscular HGB Conc 33.1 g/dL (31.6-35.5); Mean Corpuscular Hemoglobin 30.9 pg (28.0-33.3); Mean Corpuscular Volume 93.4 fL (83.0-100.0); Mean Platelet Volume 8.9 fL (9.4-12.4); Monocytes # 1.2 K/mcL (0.0-1.3); Monocytes % 9.7 %; Neutrophils # 10.2 K/mcL (1.6-8.9); Platelet Count 281 K/mcL (140-400); Red Blood Count 3.95 M/mcL (4.19-5.50); Red Cell Distribution Width 15.8 % (11.5-14.5); Segmented Neutrophils % 83.6 %; White Blood Count 12.2 K/mcL (4.3-11.1)
[2019-08-30 22:07] LABS: INR 1.1; Prothrombin Time 12.5 Seconds (9.4-12.1)
[2019-08-30] MEDS ORDERED: Gentamicin 380 MG in 0.9 % Sodium Chloride 100 ML IVPB ONE (22:13)
[2019-08-30] MEDS ORDERED: Vancomycin 1,500 MG/265 ML IV.SOLN IVPB ONE (22:13)
[2019-08-30] MEDS ORDERED: Piperacillin/Tazobactam 3.375 GM in 0.9 % Sodium Chloride Mini Bag 100 ML IVPB ONE (22:13)
[2019-08-30 22:26] LABS: Albumin 3.9 g/dL (3.5-5.7); Albumin/Globulin Ratio 1.1 (1.1-2.2); Bilirubin,Total 0.4 mg/dL (0.3-1.0); Calcium 9.5 mg/dL (8.6-10.3); Globulin 3.4 g/dL (2.4-3.5); Total Protein 7.3 g/dL (6.4-8.9)
[2019-08-30] MEDS ORDERED: Cefepime HCl 1,000 MG in Water for inj. (sterile) 10 ML IVP ONE (22:28)
[2019-08-30] MEDS ORDERED: levoFLOXacin 500 MG/100 ML 500 MG/100 ML BAG IVPB ONE (22:30)
[2019-08-30 22:35] LABS: Troponin I 0.07 ng/mL (< 0.04)
[2019-08-31] MEDS ORDERED: Naloxone 0.4 MG/ML INJ IVP PRN (02:14)
[2019-08-31] MEDS ORDERED: Dextrose Gel 15 GM/37.5 ML TUBE PO PRN ×2 (02:16)
[2019-08-31] MEDS ORDERED: *HR* Dextrose 50 % in Water (Syg) 50 ML SYRINGE IVP PRN (02:16)
[2019-08-31] MEDS ORDERED: D5% in Water 1,000 ML IVC PRN (02:16)
[2019-08-31] MEDS ORDERED: Vancomycin (wt based) 1,000 MG VIAL IVPB SCH (03:00)
[2019-08-31] MEDS: Insulin LISPRO 300 UNITS/3 ML VIAL SQ SCH ×4 (03:46→18:07)
[2019-08-31 04:44] LABS: Basophils % 0.3 %; Eosinophils # 0.1 K/mcL (0.0-0.6); Eosinophils % 1.4 %; Hematocrit 33.7 % (37.5-50.1); Hemoglobin 10.8 g/dL (12.9-16.9); Immature Granulocytes % 0.4 % (0-4); Lymphocytes # 1.2 K/mcL (0.6-4.6); Lymphocytes % 12.4 %; Mean Corpuscular Volume 96.8 fL (83.0-100.0); Mean Platelet Volume 9.2 fL (9.4-12.4); Monocytes # 1.1 K/mcL (0.0-1.3); Monocytes % 11.1 %; Neutrophils # 7.3 K/mcL (1.6-8.9); Platelet Count 252 K/mcL (140-400); Red Blood Count 3.48 M/mcL (4.19-5.50); Segmented Neutrophils % 74.4 %; White Blood Count 9.8 K/mcL (4.3-11.1)
[2019-08-31 05:05] LABS: Albumin 3.5 g/dL (3.5-5.7); Bilirubin,Total 0.3 mg/dL (0.3-1.0); Calcium 8.7 mg/dL (8.6-10.3); Globulin 3.4 g/dL (2.4-3.5); Magnesium 1.7 mg/dL (1.6-2.6); Phosphorous 5.5 mg/dL (2.7-4.5); Potassium 5.3 mEq/L (3.5-5.1); Total Protein 6.9 g/dL (6.4-8.9)
[2019-08-31] MEDS ORDERED: Nitroglycerin 0.4 MG TAB.SUBL SL PRN (05:13)
[2019-08-31] MEDS ORDERED: Aspirin 81 MG TAB.CHEW PO ONE (05:17)
[2019-08-31] MEDS ORDERED: *HR* Heparin 5,000 UNIT/ML VIAL IVP PRN ×2 (05:19)
[2019-08-31] MEDS ORDERED: Doxycycline 100 MG in 0.9 % Sodium Chloride Mini Bag 100 ML IVPB SCH ×2 (06:00→10:00)
[2019-08-31] MEDS: Heparin 25,000 UNIT/250 ML D5W 25,000 UNIT/250 ML IV.SOLN IVC SCH (07:12)
[2019-08-31] MEDS ORDERED: 0.9 % Sodium Chloride 1,000 ML ONE (07:19)
[2019-08-31] MEDS ORDERED: 0.9 % Sodium Chloride 250 ML IVC PRN (07:20)
[2019-08-31] MEDS ORDERED: 0.9 % Sodium Chloride 1,000 ML PRIME SCH (07:30)
[2019-08-31] MEDS ORDERED: levoFLOXacin 750 MG/150 ML 750 MG/150 ML BAG IVPB SCH (09:00)
[2019-08-31] MEDS: Doxycycline 100 MG in 0.9 % Sodium Chloride Mini Bag 100 ML IVPB SCH ×2 (10:58→20:55)
[2019-08-31] MEDS: cefTRIAXone 2,000 MG in Water for inj. (sterile) 10 ML IVP SCH (10:58)
[2019-08-31] MEDS: Ranolazine 500 MG TAB.ER.12H PO SCH (20:55)
[2019-08-31] MEDS: Insulin DETEMIR 100 UNIT/ML X5UNITS SQ SCH (20:55)
[2019-08-31] MEDS ORDERED: Acetaminophen 325 MG TABLET PO ONE (21:40)
[2019-09-01] MEDS: Insulin LISPRO 300 UNITS/3 ML VIAL SQ SCH (00:12)
[2019-09-01 03:34] LABS: Basophils % 0.3 %; Eosinophils # 0.3 K/mcL (0.0-0.6); Eosinophils % 4.9 %; Hematocrit 27.6 % (37.5-50.1); Immature Granulocytes % 0.4 % (0-4); Lymphocytes # 1.5 K/mcL (0.6-4.6); Lymphocytes % 21.7 %; Mean Corpuscular Hemoglobin 31.7 pg (28.0-33.3); Mean Corpuscular Volume 96.2 fL (83.0-100.0); Mean Platelet Volume 9.3 fL (9.4-12.4); Monocytes # 0.8 K/mcL (0.0-1.3); Monocytes % 11.3 %; Neutrophils # 4.3 K/mcL (1.6-8.9); Platelet Count 212 K/mcL (140-400); Red Blood Count 2.87 M/mcL (4.19-5.50); Red Cell Distribution Width 15.2 % (11.5-14.5); Segmented Neutrophils % 61.4 %; White Blood Count 6.9 K/mcL (4.3-11.1)
[2019-09-01 03:35] LABS: Hemoglobin 9.1 g/dL (12.9-16.9)
[2019-09-01 03:52] LABS: Calcium 7.9 mg/dL (8.6-10.3); Potassium 5.5 mEq/L (3.5-5.1)
[2019-09-01] MEDS: Heparin 25,000 UNIT/250 ML D5W 25,000 UNIT/250 ML IV.SOLN IVC SCH (06:24)
[2019-09-01] MEDS: Doxycycline 100 MG in 0.9 % Sodium Chloride Mini Bag 100 ML IVPB SCH (08:11)
[2019-09-01] MEDS: amLODIPine 5 MG TABLET PO SCH (08:11)
[2019-09-01] MEDS: Ranolazine 500 MG TAB.ER.12H PO SCH ×2 (08:11→20:59)
[2019-09-01] MEDS: Metoprolol XL (24 HR) Succ 50 MG TAB.ER.24H PO SCH (08:11)
[2019-09-01] MEDS: Aspirin Enteric Coated 81 MG Tablet PO SCH (08:11)
[2019-09-01] MEDS: cefTRIAXone 2,000 MG in Water for inj. (sterile) 10 ML IVP SCH (08:12)
[2019-09-01] MEDS ORDERED: 0.9 % Sodium Chloride 250 ML IVC PRN (09:17)
[2019-09-01] MEDS ORDERED: Ondansetron 4 MG/2 ML VIAL IVP ONE (09:24)
[2019-09-01] MEDS: Ipratropium/Albuterol Neb 3 ML IH SCH ×3 (10:41→22:11)
[2019-09-01] MEDS ORDERED: *HR* Metoprolol 5 MG/5 ML VIAL IVP PRN (15:49)
[2019-09-01] MEDS: *HR* Heparin 5,000 UNIT/ML VIAL SQ SCH ×2 (15:57→20:57)
[2019-09-01] MEDS: Doxycycline 100 MG CAPSULE PO SCH (20:59)
[2019-09-01] MEDS: Insulin DETEMIR 100 UNIT/ML X5UNITS SQ SCH (20:59)
[2019-09-02] MEDS ORDERED: Acetaminophen IV 1,000 MG/100 ML INFUS..BTL IVPB ONE (00:42)
[2019-09-02] MEDS: Ipratropium/Albuterol Neb 3 ML IH SCH ×2 (03:12→10:59)
[2019-09-02] MEDS: *HR* Heparin 5,000 UNIT/ML VIAL SQ SCH (05:18)
[2019-09-02 05:41] LABS: Basophils % 0.3 %; Eosinophils # 0.3 K/mcL (0.0-0.6); Eosinophils % 4.6 %; Hematocrit 33.3 % (37.5-50.1); Immature Granulocytes % 0.3 % (0-4); Lymphocytes # 1.1 K/mcL (0.6-4.6); Lymphocytes % 17.3 %; Mean Corpuscular HGB Conc 32.4 g/dL (31.6-35.5); Mean Corpuscular Hemoglobin 31.2 pg (28.0-33.3); Mean Corpuscular Volume 96.2 fL (83.0-100.0); Monocytes # 0.7 K/mcL (0.0-1.3); Monocytes % 10.7 %; Neutrophils # 4.4 K/mcL (1.6-8.9); Platelet Count 275 K/mcL (140-400); Red Blood Count 3.46 M/mcL (4.19-5.50); Red Cell Distribution Width 15.1 % (11.5-14.5); Segmented Neutrophils % 66.8 %; White Blood Count 6.5 K/mcL (4.3-11.1)
[2019-09-02 05:45] LABS: Hemoglobin 10.8 g/dL (12.9-16.9)
[2019-09-02 05:59] LABS: Calcium 8.6 mg/dL (8.6-10.3)
[2019-09-02] MEDS ORDERED: 0.9 % Sodium Chloride 250 ML IVC PRN (07:29)
[2019-09-02] MEDS: Doxycycline 100 MG CAPSULE PO SCH (08:05)
[2019-09-02] MEDS: Ranolazine 500 MG TAB.ER.12H PO SCH (08:05)
[2019-09-02] MEDS: amLODIPine 5 MG TABLET PO SCH (08:05)
[2019-09-02] MEDS: cefTRIAXone 2,000 MG in Water for inj. (sterile) 10 ML IVP SCH (08:05)
[2019-09-02] MEDS: Metoprolol XL (24 HR) Succ 50 MG TAB.ER.24H PO SCH (08:05)
[2019-09-02] MEDS: Aspirin Enteric Coated 81 MG Tablet PO SCH (08:05)
[2019-09-02 12:26] VITALS: BP 181/73
== END 2019-09-02 12:31 | disposition home or self-care (01) | DRG 871 ==
LOC: 2ANU 21:11 → EMEROOARM 21:11 → SUATTDRO 08-31 02:41 → 2ANU 08-31 03:17
PROVIDERS: ADMIT Internal Medicine; ATTEND Family Medicine

== ENCOUNTER 2019-09-30 21:57 | Inpatient (IN) ==
[2019-09-30 22:56] LABS: Basophils % 0.5 %; Eosinophils # 0.3 K/mcL (0.0-0.6); Eosinophils % 4.4 %; Hematocrit 32.1 % (37.5-50.1); Hemoglobin 10.4 g/dL (12.9-16.9); Immature Granulocytes % 0.4 % (0-4); Lymphocytes # 1.2 K/mcL (0.6-4.6); Mean Corpuscular HGB Conc 32.4 g/dL (31.6-35.5); Mean Corpuscular Hemoglobin 31.4 pg (28.0-33.3); Mean Platelet Volume 8.9 fL (9.4-12.4); Monocytes # 0.8 K/mcL (0.0-1.3); Monocytes % 10.9 %; Neutrophils # 5.1 K/mcL (1.6-8.9); Platelet Count 226 K/mcL (140-400); Red Blood Count 3.31 M/mcL (4.19-5.50); Red Cell Distribution Width 14.9 % (11.5-14.5); Segmented Neutrophils % 67.8 %; White Blood Count 7.5 K/mcL (4.3-11.1)
[2019-09-30 23:20] LABS: Calcium 8.4 mg/dL (8.6-10.3); Magnesium 1.6 mg/dL (1.6-2.6); Phosphorous 5.4 mg/dL (2.7-4.5); Potassium 5.7 mEq/L (3.5-5.1)
[2019-09-30] MEDS ORDERED: Isovue-370 500 ML BOTTLE IVP ONE (23:29)
[2019-09-30 23:32] LABS: Troponin I 0.06 ng/mL (< 0.04)
[2019-09-30] MEDS ORDERED: Aspirin 81 MG TAB.CHEW PO ONE (23:33)
[2019-10-01] MEDS ORDERED: Apixaban 5 MG TABLET PO ONE (01:39)
[2019-10-01] MEDS ORDERED: *HR* Promethazine 25 MG/ML VIAL IVP PRN (02:45)
[2019-10-01] MEDS ORDERED: Acetaminophen 325 MG TABLET PO PRN (02:45)
[2019-10-01] MEDS ORDERED: Naloxone 0.4 MG/ML INJ IVP PRN (02:45)
[2019-10-01] MEDS ORDERED: *HR* Metoprolol 5 MG/5 ML VIAL IVP ONE (03:56)
[2019-10-01] MEDS ORDERED: *HR* Metoprolol 5 MG/5 ML VIAL IVP SCH (04:00)
[2019-10-01] MEDS ORDERED: D5% in Water 1,000 ML IVC PRN (04:34)
[2019-10-01] MEDS ORDERED: *HR* Dextrose 50 % in Water (Vial) 50 ML VIAL IVP PRN (04:34)
[2019-10-01] MEDS ORDERED: Dextrose Gel 15 GM/37.5 ML TUBE PO PRN ×2 (04:34)
[2019-10-01] MEDS ORDERED: *HR* Heparin 10,000 UNIT/10 ML VIAL IV PRN (08:18)
[2019-10-01] MEDS ORDERED: 0.9 % Sodium Chloride 250 ML IVC PRN (08:18)
[2019-10-01] MEDS ORDERED: 0.9 % Sodium Chloride 1,000 ML PRIME SCH (08:30)
[2019-10-01] MEDS: Insulin LISPRO 300 UNITS/3 ML VIAL SQ SCH ×3 (09:29→17:00)
[2019-10-01] MEDS: Metoprolol XL (24 HR) Succ 50 MG TAB.ER.24H PO SCH (09:29)
[2019-10-01] MEDS: Aspirin Enteric Coated 81 MG Tablet PO SCH (09:29)
[2019-10-01] MEDS: amLODIPine 5 MG TABLET PO SCH (09:30)
[2019-10-01] MEDS: Isosorbide MONOnitrate (24 HR) 60 MG TAB.ER.24H PO SCH (09:30)
[2019-10-01 11:38] LABS: Basophils % 0.4 %; Eosinophils # 0.3 K/mcL (0.0-0.6); Eosinophils % 4.3 %; Hematocrit 32.9 % (37.5-50.1); Hemoglobin 10.8 g/dL (12.9-16.9); Immature Granulocytes % 0.3 % (0-4); Lymphocytes # 1.1 K/mcL (0.6-4.6); Lymphocytes % 16.3 %; Mean Corpuscular HGB Conc 32.8 g/dL (31.6-35.5); Mean Corpuscular Hemoglobin 30.7 pg (28.0-33.3); Mean Corpuscular Volume 93.5 fL (83.0-100.0); Mean Platelet Volume 9.2 fL (9.4-12.4); Monocytes # 0.5 K/mcL (0.0-1.3); Monocytes % 7.4 %; Neutrophils # 4.8 K/mcL (1.6-8.9); Platelet Count 253 K/mcL (140-400); Red Blood Count 3.52 M/mcL (4.19-5.50); Segmented Neutrophils % 71.3 %; White Blood Count 6.7 K/mcL (4.3-11.1)
[2019-10-01 11:56] LABS: Calcium 8.6 mg/dL (8.6-10.3); Magnesium 1.7 mg/dL (1.6-2.6); Phosphorous 3.4 mg/dL (2.7-4.5); Potassium 4.1 mEq/L (3.5-5.1); Troponin I 0.08 ng/mL (< 0.04)
[2019-10-01 13:10] LABS: Estimated Average Glucose 177 mg/dl
[2019-10-01] MEDS ORDERED: *HR* Heparin 5,000 UNIT/ML VIAL SQ SCH (18:00)
[2019-10-01] MEDS ORDERED: Melatonin 3 MG TABLET PO ONE (19:20)
[2019-10-01] MEDS ORDERED: Acetaminophen IV 1,000 MG/100 ML INFUS..BTL IVPB ONE (20:53)
[2019-10-01] MEDS: Insulin DETEMIR 100 UNIT/ML X5UNITS SQ SCH (21:48)
[2019-10-02] MEDS ORDERED: *HR* Metoprolol 5 MG/5 ML VIAL IVP ONE (05:33)
[2019-10-02 06:02] LABS: Basophils % 0.5 %; Eosinophils # 0.3 K/mcL (0.0-0.6); Eosinophils % 4.8 %; Hemoglobin 11.3 g/dL (12.9-16.9); Immature Granulocytes % 0.3 % (0-4); Lymphocytes # 1.1 K/mcL (0.6-4.6); Lymphocytes % 16.7 %; Mean Corpuscular HGB Conc 32.3 g/dL (31.6-35.5); Mean Corpuscular Hemoglobin 30.7 pg (28.0-33.3); Mean Corpuscular Volume 95.1 fL (83.0-100.0); Monocytes # 0.6 K/mcL (0.0-1.3); Neutrophils # 4.6 K/mcL (1.6-8.9); Platelet Count 260 K/mcL (140-400); Red Blood Count 3.68 M/mcL (4.19-5.50); Red Cell Distribution Width 14.9 % (11.5-14.5); Segmented Neutrophils % 68.7 %; White Blood Count 6.7 K/mcL (4.3-11.1)
[2019-10-02 06:26] LABS: Calcium 8.9 mg/dL (8.6-10.3); Magnesium 1.8 mg/dL (1.6-2.6); Potassium 5.2 mEq/L (3.5-5.1)
[2019-10-02] MEDS: Metoprolol XL (24 HR) Succ 50 MG TAB.ER.24H PO SCH (08:56)
[2019-10-02] MEDS: Insulin LISPRO 300 UNITS/3 ML VIAL SQ SCH ×3 (08:56→17:01)
[2019-10-02] MEDS: amLODIPine 5 MG TABLET PO SCH (08:56)
[2019-10-02] MEDS: Aspirin Enteric Coated 81 MG Tablet PO SCH (08:56)
[2019-10-02] MEDS: Isosorbide MONOnitrate (24 HR) 60 MG TAB.ER.24H PO SCH (08:56)
[2019-10-02] MEDS: Insulin DETEMIR 100 UNIT/ML X5UNITS SQ SCH (20:33)
[2019-10-03] MEDS ORDERED: *HR* LORazepam 2 MG/ML VIAL IVP ONE (00:10)
[2019-10-03] MEDS: Metoprolol XL (24 HR) Succ 50 MG TAB.ER.24H PO SCH (07:38)
[2019-10-03] MEDS: Aspirin Enteric Coated 81 MG Tablet PO SCH (07:38)
[2019-10-03] MEDS: Isosorbide MONOnitrate (24 HR) 60 MG TAB.ER.24H PO SCH (07:38)
[2019-10-03] MEDS: amLODIPine 5 MG TABLET PO SCH (07:39)
[2019-10-03] MEDS: Insulin LISPRO 300 UNITS/3 ML VIAL SQ SCH ×2 (07:39→12:31)
[2019-10-03] MEDS ORDERED: 0.9 % Sodium Chloride 250 ML IVC PRN (08:40)
[2019-10-03] MEDS ORDERED: *HR* Heparin 10,000 UNIT/10 ML VIAL IV PRN (08:40)
[2019-10-03] MEDS ORDERED: 0.9 % Sodium Chloride 1,000 ML PRIME SCH (08:45)
[2019-10-03 10:18] LABS: Basophils % 0.2 %; Eosinophils # 0.1 K/mcL (0.0-0.6); Eosinophils % 2.6 %; Hematocrit 32.4 % (37.5-50.1); Hemoglobin 10.4 g/dL (12.9-16.9); Immature Granulocytes % 0.2 % (0-4); Lymphocytes # 0.9 K/mcL (0.6-4.6); Lymphocytes % 20.9 %; Mean Corpuscular HGB Conc 32.1 g/dL (31.6-35.5); Mean Corpuscular Hemoglobin 30.8 pg (28.0-33.3); Mean Corpuscular Volume 95.9 fL (83.0-100.0); Monocytes # 0.1 K/mcL (0.0-1.3); Monocytes % 2.9 %; Neutrophils # 3.1 K/mcL (1.6-8.9); Platelet Count 224 K/mcL (140-400); Red Blood Count 3.38 M/mcL (4.19-5.50); Red Cell Distribution Width 14.7 % (11.5-14.5); Segmented Neutrophils % 73.2 %; White Blood Count 4.2 K/mcL (4.3-11.1)
[2019-10-03 10:36] LABS: Calcium 7.9 mg/dL (8.6-10.3)
[2019-10-03 10:49] LABS: Thyroid Stimulating Hormone 3.362 mcIU/mL (0.340-5.600)
[2019-10-03 10:59] LABS: Folate 4.6 ng/mL (3.0-16.0)
[2019-10-03 14:03] VITALS: BP 128/76
== END 2019-10-03 13:29 | disposition home or self-care (01) | DRG 312 ==
LOC: 2ANU 21:57 → EMEROOARM 21:57 → SUATTDRO 10-01 02:01 → 2ANU 10-01 02:23
PROVIDERS: ADMIT Student in an Organized Health Care Education/Training Program; ATTEND Internal Medicine

== ENCOUNTER 2019-10-08 20:44 | Inpatient (IN) ==
[2019-10-08] MEDS ORDERED: Morphine Sulfate 2 MG/ML SYRINGE IVP ONE ×2 (20:49→23:41)
[2019-10-08] MEDS ORDERED: Ondansetron 4 MG/2 ML VIAL IVP ONE (20:49)
[2019-10-08] MEDS ORDERED: Nitroglycerin 0.4 MG TAB.SUBL SL PRN (21:00)
[2019-10-08 22:59] LABS: Basophils % 0.5 %; Eosinophils # 0.2 K/mcL (0.0-0.6); Eosinophils % 2.5 %; Hematocrit 33.6 % (37.5-50.1); Hemoglobin 10.9 g/dL (12.9-16.9); Immature Granulocytes % 0.4 % (0-4); Lymphocytes # 1.5 K/mcL (0.6-4.6); Lymphocytes % 17.1 %; Mean Corpuscular HGB Conc 32.4 g/dL (31.6-35.5); Mean Corpuscular Hemoglobin 30.5 pg (28.0-33.3); Mean Corpuscular Volume 94.1 fL (83.0-100.0); Mean Platelet Volume 8.9 fL (9.4-12.4); Monocytes # 1.1 K/mcL (0.0-1.3); Monocytes % 12.9 %; Neutrophils # 5.7 K/mcL (1.6-8.9); Platelet Count 243 K/mcL (140-400); Red Blood Count 3.57 M/mcL (4.19-5.50); Red Cell Distribution Width 14.4 % (11.5-14.5); Segmented Neutrophils % 66.6 %; White Blood Count 8.6 K/mcL (4.3-11.1)
[2019-10-08 23:04] LABS: Prothrombin Time 11.7 Seconds (9.4-12.1)
[2019-10-08 23:06] LABS: Activated Partial Thrombo Time 34.6 Seconds (26.0-36.0)
[2019-10-08 23:21] LABS: Calcium 8.1 mg/dL (8.6-10.3); Potassium 4.9 mEq/L (3.5-5.1)
[2019-10-08 23:36] LABS: Troponin I 0.07 ng/mL (< 0.04)
[2019-10-09] MEDS ORDERED: Naloxone 0.4 MG/ML INJ IVP PRN (02:08)
[2019-10-09] MEDS ORDERED: Nitroglycerin 0.4 MG TAB.SUBL SL PRN (02:09)
[2019-10-09] MEDS ORDERED: D5% in Water 1,000 ML IVC PRN (02:11)
[2019-10-09] MEDS ORDERED: Dextrose Gel 15 GM/37.5 ML TUBE PO PRN ×2 (02:11)
[2019-10-09] MEDS ORDERED: *HR* Dextrose 50 % in Water (Vial) 50 ML VIAL IVP PRN (02:11)
[2019-10-09 04:11] LABS: Basophils % 0.4 %; Eosinophils # 0.2 K/mcL (0.0-0.6); Eosinophils % 2.8 %; Hematocrit 34.1 % (37.5-50.1); Immature Granulocytes % 0.4 % (0-4); Lymphocytes # 1.5 K/mcL (0.6-4.6); Lymphocytes % 19.8 %; Mean Corpuscular HGB Conc 32.3 g/dL (31.6-35.5); Mean Corpuscular Hemoglobin 30.4 pg (28.0-33.3); Mean Corpuscular Volume 94.2 fL (83.0-100.0); Monocytes % 13.4 %; Neutrophils # 4.9 K/mcL (1.6-8.9); Platelet Count 232 K/mcL (140-400); Red Blood Count 3.62 M/mcL (4.19-5.50); Red Cell Distribution Width 14.4 % (11.5-14.5); Segmented Neutrophils % 63.2 %; White Blood Count 7.8 K/mcL (4.3-11.1)
[2019-10-09 04:31] LABS: Calcium 7.9 mg/dL (8.6-10.3); Potassium 5.4 mEq/L (3.5-5.1)
[2019-10-09] MEDS: *HR* Heparin 5,000 UNIT/ML VIAL SQ SCH ×3 (04:46→20:58)
[2019-10-09] MEDS: amLODIPine 5 MG TABLET PO SCH ×3 (05:52→11:50)
[2019-10-09] MEDS: Metoprolol XL (24 HR) Succ 50 MG TAB.ER.24H PO SCH ×2 (05:52→07:49)
[2019-10-09] MEDS: Ranolazine 500 MG TAB.ER.12H PO SCH ×2 (07:47→20:57)
[2019-10-09] MEDS: Aspirin Enteric Coated 81 MG Tablet PO SCH (07:47)
[2019-10-09] MEDS ORDERED: Isosorbide MONOnitrate (24 HR) 60 MG TAB.ER.24H PO SCH (09:00)
[2019-10-09] MEDS: lisinopriL 20 MG TABLET PO SCH (11:50)
[2019-10-09] MEDS: *HR* HYDROcodone/Acet 5/325 mg TABLET PO PRN (11:50)
[2019-10-09] MEDS: Insulin LISPRO 300 UNITS/3 ML VIAL SQ SCH ×3 (11:59→17:42)
[2019-10-09] MEDS ORDERED: Insulin DETEMIR 100 UNIT/ML X5UNITS SQ SCH (21:00)
[2019-10-09] MEDS ORDERED: Morphine Sulfate 2 MG/ML SYRINGE IVP ONE (21:46)
[2019-10-10 03:17] LABS: Calcium 8.1 mg/dL (8.6-10.3)
[2019-10-10] MEDS ORDERED: *HR* Dextrose 50 % in Water (Vial) 50 ML VIAL IVP STA (03:23)
[2019-10-10] MEDS ORDERED: Calcium Gluconate 1,000 MG/10 ML VIAL IVP STA (03:23)
[2019-10-10] MEDS ORDERED: Insulin Human Regular 10 UNIT in 0.9 % Sodium Chloride 10 ML IV STA (03:23)
[2019-10-10] MEDS ORDERED: Calcium Gluconate 1gm/50mL BAG IVPB ONE (03:30)
[2019-10-10] MEDS ORDERED: Albuterol 2.5 MG/3 ML NEBULIZER IH ONE (04:45)
[2019-10-10] MEDS: *HR* Heparin 5,000 UNIT/ML VIAL SQ SCH ×3 (06:11→20:19)
[2019-10-10] MEDS ORDERED: Regadenoson 0.4 MG/5 ML SYRINGE IVP ONE (06:43)
[2019-10-10] MEDS ORDERED: 0.9 % Sodium Chloride 250 ML IVC PRN (07:40)
[2019-10-10] MEDS ORDERED: 0.9 % Sodium Chloride 1,000 ML PRIME SCH (07:45)
[2019-10-10] MEDS: Ranolazine 500 MG TAB.ER.12H PO SCH ×2 (07:55→20:19)
[2019-10-10] MEDS: amLODIPine 5 MG TABLET PO SCH (07:55)
[2019-10-10] MEDS: Metoprolol XL (24 HR) Succ 50 MG TAB.ER.24H PO SCH (07:55)
[2019-10-10] MEDS: lisinopriL 20 MG TABLET PO SCH (07:55)
[2019-10-10] MEDS: Aspirin Enteric Coated 81 MG Tablet PO SCH (07:56)
[2019-10-10] MEDS: Insulin LISPRO 300 UNITS/3 ML VIAL SQ SCH ×2 (09:54→16:31)
[2019-10-10] MEDS: *HR* HYDROcodone/Acet 5/325 mg TABLET PO PRN ×3 (10:41→22:58)
[2019-10-10] MEDS ORDERED: Ondansetron ODT 4 MG TAB.RAPDIS SL PRN (10:53)
[2019-10-10] MEDS: Calcium Acetate 667 MG CAPSULE PO SCH ×2 (16:27→16:32)
[2019-10-10] MEDS: Sucralfate 1 GM TABLET PO SCH ×2 (16:29→20:19)
[2019-10-11] MEDS ORDERED: Morphine Sulfate 2 MG/ML SYRINGE IVP ONE (00:17)
[2019-10-11 03:54] LABS: Calcium 8.4 mg/dL (8.6-10.3); Magnesium 1.7 mg/dL (1.6-2.6); Phosphorous 6.3 mg/dL (2.7-4.5)
[2019-10-11] MEDS: *HR* Heparin 5,000 UNIT/ML VIAL SQ SCH ×2 (05:12→14:31)
[2019-10-11] MEDS ORDERED: Regadenoson 0.4 MG/5 ML SYRINGE IVP ONE (06:15)
[2019-10-11] MEDS: Insulin LISPRO 300 UNITS/3 ML VIAL SQ SCH ×2 (07:20→11:39)
[2019-10-11] MEDS: Sucralfate 1 GM TABLET PO SCH ×2 (07:20→11:39)
[2019-10-11] MEDS: Calcium Acetate 667 MG CAPSULE PO SCH ×2 (07:20→11:40)
[2019-10-11] MEDS: Aspirin Enteric Coated 81 MG Tablet PO SCH (09:23)
[2019-10-11] MEDS: Ranolazine 500 MG TAB.ER.12H PO SCH (09:23)
[2019-10-11] MEDS: amLODIPine 5 MG TABLET PO SCH (09:23)
[2019-10-11] MEDS: lisinopriL 20 MG TABLET PO SCH (09:23)
[2019-10-11] MEDS: Metoprolol XL (24 HR) Succ 50 MG TAB.ER.24H PO SCH (09:23)
[2019-10-11] MEDS: *HR* HYDROcodone/Acet 5/325 mg TABLET PO PRN (09:26)
[2019-10-11 15:39] VITALS: BP 135/69
[2019-10-11] MEDS ORDERED: Ranolazine 500 MG TAB.ER.12H PO SCH (21:00)
[2019-10-11] MEDS ORDERED: *HR* Ticagrelor 90 MG TABLET PO SCH (21:00)
[2019-10-12] MEDS ORDERED: Ergocalciferol (VIT D2) 50,000 UNIT (1.25MG) CAP PO SCH (09:00)
== END 2019-10-11 15:52 | disposition home or self-care (01) | DRG 304 ==
LOC: EMEROOARM 20:44 → 2ANU 20:44 → SUATTDRO 10-09 01:55 → 2ANU 10-09 02:09
PROVIDERS: ADMIT Family Medicine; ATTEND Internal Medicine

== ENCOUNTER 2019-10-15 14:52 | Inpatient (IN) ==
[2019-10-15] MEDS ORDERED: Nitroglycerin 0.4 MG TAB.SUBL SL PRN (15:36)
[2019-10-15 16:28] LABS: Basophils # 0.1 K/mcL (0.0-0.2); Basophils % 0.5 %; Eosinophils # 0.4 K/mcL (0.0-0.6); Eosinophils % 3.8 %; Hematocrit 32.3 % (37.5-50.1); Hemoglobin 10.6 g/dL (12.9-16.9); Immature Granulocytes % 0.4 % (0-4); Lymphocytes % 8.7 %; Mean Corpuscular HGB Conc 32.8 g/dL (31.6-35.5); Mean Corpuscular Hemoglobin 30.9 pg (28.0-33.3); Mean Corpuscular Volume 94.2 fL (83.0-100.0); Mean Platelet Volume 8.9 fL (9.4-12.4); Monocytes # 0.8 K/mcL (0.0-1.3); Monocytes % 7.3 %; Neutrophils # 8.7 K/mcL (1.6-8.9); Platelet Count 307 K/mcL (140-400); Red Blood Count 3.43 M/mcL (4.19-5.50); Segmented Neutrophils % 79.3 %; White Blood Count 10.9 K/mcL (4.3-11.1)
[2019-10-15 16:49] LABS: Calcium 8.4 mg/dL (8.6-10.3); Potassium 5.4 mEq/L (3.5-5.1)
[2019-10-15 16:54] LABS: Troponin I 0.04 ng/mL (< 0.04)
[2019-10-15] MEDS ORDERED: *HR* Labetalol 20 MG/4 ML SYRINGE IVP ONE (18:19)
[2019-10-15] MEDS ORDERED: Naloxone 0.4 MG/ML INJ IVP PRN (21:08)
[2019-10-15] MEDS ORDERED: Dextrose Gel 15 GM/37.5 ML TUBE PO PRN ×2 (21:33)
[2019-10-15] MEDS ORDERED: *HR* Dextrose 50 % in Water (Vial) 50 ML VIAL IVP PRN (21:33)
[2019-10-15] MEDS ORDERED: D5% in Water 1,000 ML IVC PRN (21:33)
[2019-10-15] MEDS: *HR* Promethazine 25 MG/ML VIAL IVP PRN (22:20)
[2019-10-15] MEDS: Aspirin Enteric Coated 81 MG Tablet PO SCH (22:45)
[2019-10-15] MEDS: amLODIPine 5 MG TABLET PO SCH (22:45)
[2019-10-15] MEDS: Isosorbide MONOnitrate (24 HR) 60 MG TAB.ER.24H PO SCH (22:45)
[2019-10-16] MEDS: Metoprolol XL (24 HR) Succ 50 MG TAB.ER.24H PO SCH (08:04)
[2019-10-16] MEDS: Isosorbide MONOnitrate (24 HR) 60 MG TAB.ER.24H PO SCH (08:04)
[2019-10-16] MEDS: Aspirin Enteric Coated 81 MG Tablet PO SCH (08:04)
[2019-10-16] MEDS: Insulin LISPRO 300 UNITS/3 ML VIAL SQ SCH ×4 (08:04→21:00)
[2019-10-16] MEDS: amLODIPine 5 MG TABLET PO SCH (08:04)
[2019-10-16] MEDS ORDERED: Ranolazine 500 MG TAB.ER.12H PO SCH (09:00)
[2019-10-16 09:50] LABS: Hematocrit 32.6 % (37.5-50.1); Hemoglobin 10.5 g/dL (12.9-16.9); Mean Corpuscular HGB Conc 32.2 g/dL (31.6-35.5); Mean Corpuscular Hemoglobin 30.6 pg (28.0-33.3); Mean Platelet Volume 8.9 fL (9.4-12.4); Platelet Count 296 K/mcL (140-400); Red Blood Count 3.43 M/mcL (4.19-5.50); White Blood Count 12.7 K/mcL (4.3-11.1)
[2019-10-16 09:55] LABS: INR 1.1; Prothrombin Time 12.2 Seconds (9.4-12.1)
[2019-10-16 10:10] LABS: Magnesium 1.6 mg/dL (1.6-2.6); Phosphorous 6.4 mg/dL (2.7-4.5)
[2019-10-16] MEDS ORDERED: Isosorbide MONOnitrate (24 HR) 30 MG TAB.ER.24H PO ONE (10:59)
[2019-10-16] MEDS ORDERED: Ipratropium/Albuterol Neb 3 ML IH PRN (11:48)
[2019-10-16] MEDS: *HR* Heparin 5,000 UNIT/ML VIAL SQ SCH ×2 (13:13→22:40)
[2019-10-16] MEDS: *HR* Promethazine 25 MG/ML VIAL IVP PRN (15:02)
[2019-10-16] MEDS ORDERED: rOPINIRole 0.25 MG TABLET PO ONE (16:14)
[2019-10-16] MEDS: Ranolazine 500 MG TAB.ER.12H PO SCH (19:41)
[2019-10-16] MEDS: Insulin DETEMIR 100 UNIT/ML X5UNITS SQ SCH (21:02)
[2019-10-17 05:40] LABS: Basophils % 0.3 %; Eosinophils # 0.3 K/mcL (0.0-0.6); Eosinophils % 2.5 %; Hematocrit 30.9 % (37.5-50.1); Hemoglobin 10.2 g/dL (12.9-16.9); Immature Granulocytes % 0.4 % (0-4); Lymphocytes # 1.1 K/mcL (0.6-4.6); Lymphocytes % 8.3 %; Mean Corpuscular Hemoglobin 30.7 pg (28.0-33.3); Mean Corpuscular Volume 93.1 fL (83.0-100.0); Monocytes # 0.8 K/mcL (0.0-1.3); Monocytes % 6.7 %; Neutrophils # 10.3 K/mcL (1.6-8.9); Platelet Count 295 K/mcL (140-400); Red Blood Count 3.32 M/mcL (4.19-5.50); Segmented Neutrophils % 81.8 %; White Blood Count 12.6 K/mcL (4.3-11.1)
[2019-10-17 05:50] LABS: Calcium 8.3 mg/dL (8.6-10.3)
[2019-10-17] MEDS ORDERED: *HR* Dextrose 50 % in Water (Vial) 50 ML VIAL IVP ONE (05:57)
[2019-10-17] MEDS ORDERED: Insulin Human Regular 10 UNIT in 0.9 % Sodium Chloride 10 ML IV ONE (05:57)
[2019-10-17] MEDS ORDERED: Calcium Gluconate 1gm/50mL 1 GM/50 ML BAG IVPB ONE (06:00)
[2019-10-17] MEDS ORDERED: Insulin Human Regular 5 UNIT in 0.9 % Sodium Chloride 10 ML IV ONE (06:10)
[2019-10-17] MEDS ORDERED: 0.9 % Sodium Chloride 250 ML IVC PRN (07:23)
[2019-10-17] MEDS ORDERED: *HR* Heparin 10,000 UNIT/10 ML VIAL IV PRN (07:23)
[2019-10-17] MEDS ORDERED: 0.9 % Sodium Chloride 1,000 ML PRIME SCH (07:30)
[2019-10-17] MEDS ORDERED: 0.9 % Sodium Chloride 1,000 ML ONE (07:39)
[2019-10-17] MEDS: Aspirin Enteric Coated 81 MG Tablet PO SCH (08:03)
[2019-10-17] MEDS: Ranolazine 500 MG TAB.ER.12H PO SCH ×2 (08:04→19:13)
[2019-10-17] MEDS: Insulin LISPRO 300 UNITS/3 ML VIAL SQ SCH ×3 (08:06→16:26)
[2019-10-17] MEDS: Isosorbide MONOnitrate (24 HR) 30 MG TAB.ER.24H PO SCH (12:50)
[2019-10-17] MEDS: amLODIPine 5 MG TABLET PO SCH (12:50)
[2019-10-17] MEDS: Metoprolol XL (24 HR) Succ 50 MG TAB.ER.24H PO SCH (12:51)
[2019-10-18] MEDS: Insulin LISPRO 300 UNITS/3 ML VIAL SQ SCH ×5 (01:59→20:57)
[2019-10-18] MEDS: Insulin DETEMIR 100 UNIT/ML X5UNITS SQ SCH ×2 (02:00→21:07)
[2019-10-18 05:21] LABS: Basophils % 0.3 %; Eosinophils # 0.3 K/mcL (0.0-0.6); Eosinophils % 3.1 %; Hematocrit 30.2 % (37.5-50.1); Hemoglobin 9.8 g/dL (12.9-16.9); Immature Granulocytes % 0.3 % (0-4); Lymphocytes # 1.1 K/mcL (0.6-4.6); Lymphocytes % 12.3 %; Mean Corpuscular HGB Conc 32.5 g/dL (31.6-35.5); Mean Corpuscular Hemoglobin 30.6 pg (28.0-33.3); Mean Corpuscular Volume 94.4 fL (83.0-100.0); Mean Platelet Volume 8.8 fL (9.4-12.4); Monocytes # 0.9 K/mcL (0.0-1.3); Monocytes % 9.4 %; Neutrophils # 6.8 K/mcL (1.6-8.9); Platelet Count 283 K/mcL (140-400); Red Cell Distribution Width 13.8 % (11.5-14.5); Segmented Neutrophils % 74.6 %; White Blood Count 9.1 K/mcL (4.3-11.1)
[2019-10-18 05:42] LABS: Calcium 8.7 mg/dL (8.6-10.3); Potassium 6.1 mEq/L (3.5-5.1)
[2019-10-18] MEDS: Ranolazine 500 MG TAB.ER.12H PO SCH ×2 (08:25→21:07)
[2019-10-18] MEDS: Metoprolol XL (24 HR) Succ 50 MG TAB.ER.24H PO SCH (08:25)
[2019-10-18] MEDS: Aspirin Enteric Coated 81 MG Tablet PO SCH (08:25)
[2019-10-18] MEDS: amLODIPine 5 MG TABLET PO SCH (08:25)
[2019-10-18] MEDS: Isosorbide MONOnitrate (24 HR) 30 MG TAB.ER.24H PO SCH (08:26)
[2019-10-18] MEDS ORDERED: Heparin 1,000 UNITS/500 mL 500 ML ONE (16:11)
[2019-10-18] MEDS ORDERED: ISOVUE-370 200 ML INFUS..BTL ONE (16:11)
[2019-10-18] MEDS ORDERED: *HR* Heparin 10,000 UNIT/10 ML VIAL ONE (16:11)
[2019-10-18] MEDS ORDERED: Nitroglycerin 1,000 MCG/10 ML VIAL IV ONE (16:12)
[2019-10-18] MEDS ORDERED: 0.9 % Sodium Chloride 1,000 ML ONE ×2 (16:12→16:34)
[2019-10-18] MEDS ORDERED: *HR* FentaNYL (PF) 100 MCG/2 ML VIAL ONE (16:24)
[2019-10-18] MEDS ORDERED: *HR* Midazolam HCl 2 MG/2 ML VIAL ONE (16:24)
[2019-10-19 04:17] LABS: Basophils % 0.5 %; Eosinophils # 0.3 K/mcL (0.0-0.6); Eosinophils % 3.7 %; Hematocrit 28.2 % (37.5-50.1); Hemoglobin 9.2 g/dL (12.9-16.9); Immature Granulocytes % 0.4 % (0-4); Lymphocytes # 0.8 K/mcL (0.6-4.6); Lymphocytes % 11.3 %; Mean Corpuscular HGB Conc 32.6 g/dL (31.6-35.5); Mean Corpuscular Hemoglobin 30.6 pg (28.0-33.3); Mean Corpuscular Volume 93.7 fL (83.0-100.0); Mean Platelet Volume 8.8 fL (9.4-12.4); Monocytes # 0.7 K/mcL (0.0-1.3); Monocytes % 9.7 %; Neutrophils # 5.5 K/mcL (1.6-8.9); Platelet Count 271 K/mcL (140-400); Red Blood Count 3.01 M/mcL (4.19-5.50); Red Cell Distribution Width 13.5 % (11.5-14.5); Segmented Neutrophils % 74.4 %; White Blood Count 7.3 K/mcL (4.3-11.1)
[2019-10-19 04:35] LABS: Calcium 8.2 mg/dL (8.6-10.3); Potassium 5.3 mEq/L (3.5-5.1)
[2019-10-19] MEDS: Morphine Sulfate 2 MG/ML SYRINGE IVP PRN (06:12)
[2019-10-19] MEDS: Insulin LISPRO 300 UNITS/3 ML VIAL SQ SCH ×4 (07:47→19:47)
[2019-10-19] MEDS: Isosorbide MONOnitrate (24 HR) 30 MG TAB.ER.24H PO SCH (08:07)
[2019-10-19] MEDS: amLODIPine 5 MG TABLET PO SCH (08:07)
[2019-10-19] MEDS: Aspirin Enteric Coated 81 MG Tablet PO SCH (08:07)
[2019-10-19] MEDS: Ranolazine 500 MG TAB.ER.12H PO SCH ×2 (08:07→19:38)
[2019-10-19] MEDS: Metoprolol XL (24 HR) Succ 50 MG TAB.ER.24H PO SCH (08:08)
[2019-10-19] MEDS ORDERED: *HR* Heparin 10,000 UNIT/10 ML VIAL IV PRN (08:13)
[2019-10-19] MEDS ORDERED: 0.9 % Sodium Chloride 250 ML IVC PRN (08:13)
[2019-10-19] MEDS: *HR* Heparin 5,000 UNIT/ML VIAL SQ SCH (17:04)
[2019-10-19] MEDS: Insulin DETEMIR 100 UNIT/ML X5UNITS SQ SCH (19:42)
[2019-10-20] MEDS: *HR* Promethazine 25 MG/ML VIAL IVP PRN (00:48)
[2019-10-20] MEDS: Melatonin 3 MG TABLET PO PRN ×2 (01:39→23:01)
[2019-10-20 04:48] LABS: Basophils % 0.6 %; Eosinophils # 0.3 K/mcL (0.0-0.6); Eosinophils % 3.9 %; Hematocrit 26.4 % (37.5-50.1); Hemoglobin 8.7 g/dL (12.9-16.9); Immature Granulocytes % 0.3 % (0-4); Mean Corpuscular Hemoglobin 31.1 pg (28.0-33.3); Mean Corpuscular Volume 94.3 fL (83.0-100.0); Mean Platelet Volume 8.9 fL (9.4-12.4); Monocytes # 0.7 K/mcL (0.0-1.3); Monocytes % 10.6 %; Neutrophils # 4.8 K/mcL (1.6-8.9); Platelet Count 265 K/mcL (140-400); Red Cell Distribution Width 13.5 % (11.5-14.5); Segmented Neutrophils % 69.6 %
[2019-10-20 05:05] LABS: Calcium 8.3 mg/dL (8.6-10.3); Magnesium 1.6 mg/dL (1.6-2.6); Phosphorous 5.5 mg/dL (2.7-4.5); Potassium 4.2 mEq/L (3.5-5.1)
[2019-10-20] MEDS: *HR* Heparin 5,000 UNIT/ML VIAL SQ SCH ×2 (06:07→16:42)
[2019-10-20] MEDS: Insulin LISPRO 300 UNITS/3 ML VIAL SQ SCH ×4 (07:51→21:34)
[2019-10-20] MEDS: Isosorbide MONOnitrate (24 HR) 30 MG TAB.ER.24H PO SCH (07:56)
[2019-10-20] MEDS: amLODIPine 5 MG TABLET PO SCH (07:56)
[2019-10-20] MEDS: Ranolazine 500 MG TAB.ER.12H PO SCH ×2 (07:56→19:38)
[2019-10-20] MEDS: Aspirin Enteric Coated 81 MG Tablet PO SCH (07:56)
[2019-10-20] MEDS: Metoprolol XL (24 HR) Succ 50 MG TAB.ER.24H PO SCH (07:56)
[2019-10-20] MEDS ORDERED: 0.9 % Sodium Chloride 2,000 ML ONE (09:46)
[2019-10-20] MEDS ORDERED: Heparin 1,000 UNITS/500 mL 500 ML ONE (09:47)
[2019-10-20] MEDS ORDERED: Nitroglycerin 1,000 MCG/10 ML VIAL IV ONE ×2 (09:47→09:52)
[2019-10-20] MEDS ORDERED: ISOVUE-370 200 ML INFUS..BTL ONE ×2 (09:47→10:07)
[2019-10-20] MEDS ORDERED: *HR* Heparin 10,000 UNIT/10 ML VIAL ONE (09:47)
[2019-10-20] MEDS ORDERED: *HR* Atropine Sulfate 1 MG/10 ML SYRINGE ONE (10:08)
[2019-10-20] MEDS ORDERED: Tirofiban 12.5 MG/250ML 12.5 MG/250 ML BAG ONE (10:08)
[2019-10-20] MEDS ORDERED: *HR* Midazolam HCl 2 MG/2 ML VIAL ONE (10:21)
[2019-10-20] MEDS ORDERED: *HR* FentaNYL (PF) 100 MCG/2 ML VIAL ONE (10:22)
[2019-10-20] MEDS ORDERED: *HR* Ticagrelor 90 MG TABLET ONE (11:14)
[2019-10-20] MEDS ORDERED: Oxymetazoline Nasal SPRAY BOTTLE NS PRN (15:12)
[2019-10-20] MEDS ORDERED: Silver Nitrate Applicator 1 STICK..EA. TP ONE (17:09)
[2019-10-20] MEDS: Acetaminophen 325 MG TABLET PO PRN (18:01)
[2019-10-20] MEDS: *HR* Ticagrelor 90 MG TABLET PO SCH (19:38)
[2019-10-20] MEDS: Insulin DETEMIR 100 UNIT/ML X5UNITS SQ SCH (21:36)
[2019-10-20] MEDS: Morphine Sulfate 2 MG/ML SYRINGE IVP PRN (22:23)
[2019-10-21 00:51] LABS: Hematocrit 28.8 % (37.5-50.1); Hemoglobin 9.4 g/dL (12.9-16.9)
[2019-10-21] MEDS: *HR* Promethazine 25 MG/ML VIAL IVP PRN ×2 (04:31→20:18)
[2019-10-21] MEDS: Acetaminophen 325 MG TABLET PO PRN (04:32)
[2019-10-21 04:55] LABS: Basophils % 0.4 %; Eosinophils # 0.3 K/mcL (0.0-0.6); Eosinophils % 3.7 %; Hematocrit 26.7 % (37.5-50.1); Hemoglobin 8.7 g/dL (12.9-16.9); Immature Granulocytes % 0.4 % (0-4); Lymphocytes # 0.7 K/mcL (0.6-4.6); Mean Corpuscular HGB Conc 32.6 g/dL (31.6-35.5); Mean Corpuscular Hemoglobin 30.5 pg (28.0-33.3); Mean Corpuscular Volume 93.7 fL (83.0-100.0); Mean Platelet Volume 8.4 fL (9.4-12.4); Monocytes # 0.7 K/mcL (0.0-1.3); Neutrophils # 6.3 K/mcL (1.6-8.9); Platelet Count 259 K/mcL (140-400); Red Blood Count 2.85 M/mcL (4.19-5.50); Red Cell Distribution Width 13.5 % (11.5-14.5); Segmented Neutrophils % 77.5 %; White Blood Count 8.1 K/mcL (4.3-11.1)
[2019-10-21 05:25] LABS: Calcium 8.2 mg/dL (8.6-10.3); Magnesium 1.7 mg/dL (1.6-2.6); Phosphorous 6.8 mg/dL (2.7-4.5); Potassium 5.4 mEq/L (3.5-5.1)
[2019-10-21] MEDS ORDERED: 0.9 % Sodium Chloride 250 ML IVC PRN (07:19)
[2019-10-21] MEDS: *HR* Heparin 5,000 UNIT/ML VIAL SQ SCH ×2 (07:43→17:22)
[2019-10-21] MEDS: Insulin LISPRO 300 UNITS/3 ML VIAL SQ SCH ×4 (07:49→19:41)
[2019-10-21] MEDS: Ranolazine 500 MG TAB.ER.12H PO SCH ×2 (07:50→20:18)
[2019-10-21] MEDS: Aspirin Enteric Coated 81 MG Tablet PO SCH (07:51)
[2019-10-21] MEDS: Metoprolol XL (24 HR) Succ 50 MG TAB.ER.24H PO SCH (07:51)
[2019-10-21] MEDS: *HR* Ticagrelor 90 MG TABLET PO SCH ×2 (07:51→20:18)
[2019-10-21] MEDS: amLODIPine 5 MG TABLET PO SCH (12:39)
[2019-10-21] MEDS: Isosorbide MONOnitrate (24 HR) 30 MG TAB.ER.24H PO SCH (12:39)
[2019-10-21] MEDS: Melatonin 3 MG TABLET PO PRN (20:18)
[2019-10-21] MEDS: Insulin DETEMIR 100 UNIT/ML X5UNITS SQ SCH (20:24)
[2019-10-21] MEDS: rOPINIRole 0.25 MG TABLET PO SCH (23:33)
[2019-10-22] MEDS: *HR* Heparin 5,000 UNIT/ML VIAL SQ SCH ×2 (05:28→18:00)
[2019-10-22 05:45] LABS: Hematocrit 25.3 % (37.5-50.1); Hemoglobin 8.2 g/dL (12.9-16.9); Mean Corpuscular HGB Conc 32.4 g/dL (31.6-35.5); Mean Corpuscular Hemoglobin 30.5 pg (28.0-33.3); Mean Corpuscular Volume 94.1 fL (83.0-100.0); Mean Platelet Volume 8.6 fL (9.4-12.4); Platelet Count 251 K/mcL (140-400); Red Blood Count 2.69 M/mcL (4.19-5.50); Red Cell Distribution Width 13.7 % (11.5-14.5); White Blood Count 7.8 K/mcL (4.3-11.1)
[2019-10-22 06:08] LABS: Calcium 8.4 mg/dL (8.6-10.3); Potassium 4.6 mEq/L (3.5-5.1)
[2019-10-22 07:02] LABS: Magnesium 1.6 mg/dL (1.6-2.6); Phosphorous 5.5 mg/dL (2.7-4.5)
[2019-10-22] MEDS: *HR* Ticagrelor 90 MG TABLET PO SCH ×2 (08:27→20:56)
[2019-10-22] MEDS: Ranolazine 500 MG TAB.ER.12H PO SCH ×2 (08:27→20:56)
[2019-10-22] MEDS: Metoprolol XL (24 HR) Succ 50 MG TAB.ER.24H PO SCH (08:28)
[2019-10-22] MEDS: Aspirin Enteric Coated 81 MG Tablet PO SCH (08:28)
[2019-10-22] MEDS: amLODIPine 5 MG TABLET PO SCH (08:28)
[2019-10-22] MEDS: Isosorbide MONOnitrate (24 HR) 60 MG TAB.ER.24H PO SCH (08:28)
[2019-10-22] MEDS: Insulin LISPRO 300 UNITS/3 ML VIAL SQ SCH ×4 (08:29→20:57)
[2019-10-22] MEDS ORDERED: GI Cocktail 40 ML EACH PO ONE (09:49)
[2019-10-22] MEDS: rOPINIRole 0.25 MG TABLET PO SCH (20:56)
[2019-10-22] MEDS: Insulin DETEMIR 100 UNIT/ML X5UNITS SQ SCH (20:59)
[2019-10-22] MEDS: *HR* Promethazine 25 MG/ML VIAL IVP PRN (22:20)
[2019-10-22] MEDS: Melatonin 3 MG TABLET PO PRN (22:25)
[2019-10-23] MEDS: Morphine Sulfate 2 MG/ML SYRINGE IVP PRN ×2 (02:32→12:33)
[2019-10-23] MEDS: *HR* Heparin 5,000 UNIT/ML VIAL SQ SCH ×2 (06:17→16:20)
[2019-10-23 06:30] LABS: Hematocrit 24.1 % (37.5-50.1); Hemoglobin 7.7 g/dL (12.9-16.9); Mean Corpuscular Hemoglobin 30.6 pg (28.0-33.3); Mean Corpuscular Volume 95.6 fL (83.0-100.0); Mean Platelet Volume 8.8 fL (9.4-12.4); Platelet Count 260 K/mcL (140-400); Red Blood Count 2.52 M/mcL (4.19-5.50); Red Cell Distribution Width 13.6 % (11.5-14.5); White Blood Count 9.4 K/mcL (4.3-11.1)
[2019-10-23 06:49] LABS: Magnesium 1.7 mg/dL (1.6-2.6); Phosphorous 5.5 mg/dL (2.7-4.5)
[2019-10-23 06:50] LABS: Calcium 8.2 mg/dL (8.6-10.3); Potassium 5.3 mEq/L (3.5-5.1)
[2019-10-23] MEDS: Ranolazine 500 MG TAB.ER.12H PO SCH ×2 (07:59→19:46)
[2019-10-23] MEDS: Isosorbide MONOnitrate (24 HR) 60 MG TAB.ER.24H PO SCH (07:59)
[2019-10-23] MEDS: amLODIPine 5 MG TABLET PO SCH (07:59)
[2019-10-23] MEDS: Aspirin Enteric Coated 81 MG Tablet PO SCH (07:59)
[2019-10-23] MEDS: Metoprolol XL (24 HR) Succ 50 MG TAB.ER.24H PO SCH (07:59)
[2019-10-23] MEDS: Insulin LISPRO 300 UNITS/3 ML VIAL SQ SCH ×4 (08:00→19:52)
[2019-10-23] MEDS: *HR* Ticagrelor 90 MG TABLET PO SCH ×2 (08:03→19:46)
[2019-10-23] MEDS: rOPINIRole 0.25 MG TABLET PO SCH (19:46)
[2019-10-23] MEDS: Insulin DETEMIR 100 UNIT/ML X5UNITS SQ SCH (19:52)
[2019-10-23] MEDS: *HR* Promethazine 25 MG/ML VIAL IVP PRN (22:29)
[2019-10-23] MEDS: Melatonin 3 MG TABLET PO PRN (23:26)
[2019-10-24 05:21] LABS: Mean Corpuscular Volume 96.9 fL (83.0-100.0); Mean Platelet Volume 8.9 fL (9.4-12.4); Platelet Count 286 K/mcL (140-400); Red Blood Count 2.58 M/mcL (4.19-5.50); Red Cell Distribution Width 13.5 % (11.5-14.5); White Blood Count 10.1 K/mcL (4.3-11.1)
[2019-10-24 05:55] LABS: Calcium 8.2 mg/dL (8.6-10.3); Potassium 5.5 mEq/L (3.5-5.1)
[2019-10-24 05:56] LABS: Magnesium 1.7 mg/dL (1.6-2.6); Phosphorous 6.2 mg/dL (2.7-4.5)
[2019-10-24] MEDS: *HR* Heparin 5,000 UNIT/ML VIAL SQ SCH (07:14)
[2019-10-24] MEDS ORDERED: 0.9 % Sodium Chloride 250 ML IVC PRN (07:19)
[2019-10-24] MEDS: Insulin LISPRO 300 UNITS/3 ML VIAL SQ SCH ×2 (07:57→11:03)
[2019-10-24] MEDS: *HR* Ticagrelor 90 MG TABLET PO SCH (07:57)
[2019-10-24] MEDS: Aspirin Enteric Coated 81 MG Tablet PO SCH (07:57)
[2019-10-24 11:27] LABS: Troponin I 0.22 ng/mL (< 0.04)
[2019-10-24 12:31] VITALS: BP 178/94
[2019-10-24] MEDS: Isosorbide MONOnitrate (24 HR) 60 MG TAB.ER.24H PO SCH (13:36)
[2019-10-24] MEDS: amLODIPine 5 MG TABLET PO SCH (13:37)
[2019-10-24] MEDS: Ranolazine 500 MG TAB.ER.12H PO SCH (13:37)
[2019-10-24] MEDS: Metoprolol XL (24 HR) Succ 50 MG TAB.ER.24H PO SCH (13:38)
== END 2019-10-24 13:55 | disposition home or self-care (01) | DRG 246 ==
LOC: 2ANU 14:52 → EMEROOARM 14:52 → SUATTDRO 18:44 → 2ANU 19:40 → 2NNU 20:18 → SUATTDRO 10-17 07:02 → 2ANU 10-20 20:26 → 2NNU 10-21 20:10
PROVIDERS: ADMIT Internal Medicine; ATTEND Internal Medicine

== ENCOUNTER 2019-10-24 14:42 | Inpatient (IN) ==
[2019-10-24] MEDS ORDERED: Lidocaine -MPF 1% 5 ML AMPUL INFILT ONE (16:12)
[2019-10-24] MEDS ORDERED: Piperacillin/Tazobactam 3.375 GM in 0.9 % Sodium Chloride Mini Bag 100 ML IVPB ONE (16:13)
[2019-10-24] MEDS ORDERED: levoFLOXacin 750 MG/150 ML 750 MG/150 ML BAG IVPB ONE (16:13)
[2019-10-24] MEDS ORDERED: Vancomycin 1,500 MG/265 ML IV.SOLN IVPB ONE (16:13)
[2019-10-24 16:38] LABS: INR 1.2; Prothrombin Time 13.5 Seconds (9.4-12.1)
[2019-10-24 16:42] LABS: Basophils % 0.4 %; Eosinophils # 0.3 K/mcL (0.0-0.6); Eosinophils % 2.4 %; Hematocrit 27.2 % (37.5-50.1); Hemoglobin 8.8 g/dL (12.9-16.9); Immature Granulocytes % 0.5 % (0-4); Lymphocytes # 0.5 K/mcL (0.6-4.6); Lymphocytes % 4.4 %; Mean Corpuscular HGB Conc 32.4 g/dL (31.6-35.5); Mean Corpuscular Volume 95.8 fL (83.0-100.0); Mean Platelet Volume 8.8 fL (9.4-12.4); Monocytes # 0.8 K/mcL (0.0-1.3); Neutrophils # 9.1 K/mcL (1.6-8.9); Platelet Count 306 K/mcL (140-400); Red Blood Count 2.84 M/mcL (4.19-5.50); Red Cell Distribution Width 13.4 % (11.5-14.5); Segmented Neutrophils % 85.3 %; White Blood Count 10.7 K/mcL (4.3-11.1)
[2019-10-24 16:47] LABS: ABG Base Excess 5 mEq/L (-2 to 3); ABG HCO3 29 mEq/L (21-27); ABG Oxygen Saturation 91 % (95-98); ABG PCO2 39 mmHg (35-45); ABG PH 7.48 pH Units (7.32-7.45); ABG PO2 56 mmHg (85-104); ABG TCO2 31 mEq/L (20-26)
[2019-10-24 17:04] LABS: Alanine Aminotransferase 18 Units/L (7-52); Albumin 3.6 g/dL (3.5-5.7); Alkaline Phosphatase 84 Units/L (34-104); Aspartate Amino Transferase 21 Units/L (13-39); Bilirubin,Direct 0.1 mg/dL (0.0-0.2); Bilirubin,Indirect 0.3 mg/dL (0.0-1.0); Bilirubin,Total 0.4 mg/dL (0.3-1.0); Creatine Kinase 85 Units/L (30-223); Ethanol < 10 mg/dL (Less than 10); Globulin 3.6 g/dL (2.4-3.5); Lipase 10 Units/L (11-82); Magnesium 1.7 mg/dL (1.6-2.6); Total Protein 7.2 g/dL (6.4-8.9); Troponin I 0.18 ng/mL (< 0.04)
[2019-10-24 17:12] LABS: Calcium 9.1 mg/dL (8.6-10.3)
[2019-10-24] MEDS ORDERED: Naloxone 0.4 MG/ML INJ IVP PRN (18:04)
[2019-10-24] MEDS ORDERED: Nitroglycerin 0.4 MG TAB.SUBL SL PRN (18:07)
[2019-10-24] MEDS ORDERED: Ipratropium/Albuterol Neb 3 ML IH PRN (18:38)
[2019-10-24] MEDS: Ranolazine 500 MG TAB.ER.12H PO SCH (23:22)
[2019-10-24] MEDS: *HR* Ticagrelor 90 MG TABLET PO SCH (23:22)
[2019-10-25] MEDS: rOPINIRole 0.25 MG TABLET PO SCH ×2 (00:02→21:25)
[2019-10-25 03:34] LABS: INR 1.2; Prothrombin Time 13.2 Seconds (9.4-12.1)
[2019-10-25 03:37] LABS: Activated Partial Thrombo Time 38.1 Seconds (26.0-36.0)
[2019-10-25 03:38] LABS: Basophils % 0.4 %; Eosinophils # 0.3 K/mcL (0.0-0.6); Eosinophils % 2.9 %; Hematocrit 24.7 % (37.5-50.1); Hemoglobin 7.9 g/dL (12.9-16.9); Immature Granulocytes % 0.3 % (0-4); Lymphocytes # 0.8 K/mcL (0.6-4.6); Lymphocytes % 8.5 %; Mean Corpuscular Hemoglobin 30.5 pg (28.0-33.3); Mean Corpuscular Volume 95.4 fL (83.0-100.0); Mean Platelet Volume 8.6 fL (9.4-12.4); Monocytes # 0.9 K/mcL (0.0-1.3); Monocytes % 9.4 %; Neutrophils # 7.1 K/mcL (1.6-8.9); Nucleated Red Blood Cells 0.2 /100 WBC (0); Platelet Count 303 K/mcL (140-400); Red Blood Count 2.59 M/mcL (4.19-5.50); Red Cell Distribution Width 13.4 % (11.5-14.5); Segmented Neutrophils % 78.5 %; White Blood Count 9.1 K/mcL (4.3-11.1)
[2019-10-25 03:49] LABS: Calcium 8.4 mg/dL (8.6-10.3); Magnesium 1.8 mg/dL (1.6-2.6); Phosphorous 5.7 mg/dL (2.7-4.5); Potassium 4.4 mEq/L (3.5-5.1)
[2019-10-25 03:58] LABS: Troponin I 0.21 ng/mL (< 0.04)
[2019-10-25] MEDS: *HR* Heparin 5,000 UNIT/ML VIAL SQ SCH ×2 (05:18→18:02)
[2019-10-25] MEDS ORDERED: Doxycycline 100 MG in 0.9 % Sodium Chloride Mini Bag 100 ML IVPB SCH (06:00)
[2019-10-25] MEDS: Piperacillin/Tazobactam 3.375 GM in 0.9 % Sodium Chloride Mini Bag 100 ML IVPB SCH ×2 (07:41→17:56)
[2019-10-25] MEDS: Ranolazine 500 MG TAB.ER.12H PO SCH ×2 (09:07→21:25)
[2019-10-25] MEDS: Isosorbide MONOnitrate (24 HR) 60 MG TAB.ER.24H PO SCH (09:07)
[2019-10-25] MEDS: Metoprolol XL (24 HR) Succ 50 MG TAB.ER.24H PO SCH (09:07)
[2019-10-25] MEDS: amLODIPine 5 MG TABLET PO SCH (09:07)
[2019-10-25] MEDS: Aspirin Enteric Coated 81 MG Tablet PO SCH (09:07)
[2019-10-25] MEDS: *HR* Ticagrelor 90 MG TABLET PO SCH ×2 (09:08→21:25)
[2019-10-25] MEDS: *HR* HYDROcodone/Acet 5/325 mg TABLET PO PRN (18:00)
[2019-10-25 18:32] LABS: Total Protein,Pleural Fluid 3.8 g/dL
[2019-10-25 19:04] LABS: Albumin 3.2 g/dL (3.5-5.7); Globulin 3.2 g/dL (2.4-3.5); Total Protein 6.4 g/dL (6.4-8.9)
[2019-10-25] MEDS: Doxycycline 100 MG CAPSULE PO SCH (21:25)
[2019-10-25 21:39] LABS: RBC,Pleural Fluid 175000 RBC/mcL
[2019-10-25 21:40] LABS: Appearance of Pleural Fl Bloody (Clear)
[2019-10-25 21:41] LABS: Basophils,Pleural Fluid 0 %
[2019-10-25] MEDS ORDERED: *HR* HYDROcodone/Acet 5/325 mg TABLET PO ONE (22:35)
[2019-10-26] MEDS ORDERED: *HR* HYDROmorphone 2 MG TABLET PO ONE (01:26)
[2019-10-26] MEDS: *HR* Heparin 5,000 UNIT/ML VIAL SQ SCH ×2 (06:09→17:52)
[2019-10-26] MEDS: Piperacillin/Tazobactam 3.375 GM in 0.9 % Sodium Chloride Mini Bag 100 ML IVPB SCH ×2 (06:09→17:53)
[2019-10-26 06:36] LABS: Basophils % 0.5 %; Eosinophils # 0.3 K/mcL (0.0-0.6); Eosinophils % 4.1 %; Hematocrit 24.2 % (37.5-50.1); Hemoglobin 7.6 g/dL (12.9-16.9); Immature Granulocytes % 0.4 % (0-4); Lymphocytes # 0.8 K/mcL (0.6-4.6); Lymphocytes % 9.7 %; Mean Corpuscular HGB Conc 31.4 g/dL (31.6-35.5); Mean Corpuscular Hemoglobin 29.7 pg (28.0-33.3); Mean Corpuscular Volume 94.5 fL (83.0-100.0); Mean Platelet Volume 8.8 fL (9.4-12.4); Monocytes # 0.8 K/mcL (0.0-1.3); Monocytes % 9.8 %; Neutrophils # 6.2 K/mcL (1.6-8.9); Platelet Count 278 K/mcL (140-400); Red Blood Count 2.56 M/mcL (4.19-5.50); Red Cell Distribution Width 13.2 % (11.5-14.5); Segmented Neutrophils % 75.5 %; White Blood Count 8.2 K/mcL (4.3-11.1)
[2019-10-26 06:56] LABS: Calcium 8.4 mg/dL (8.6-10.3); Magnesium 1.7 mg/dL (1.6-2.6); Phosphorous 6.6 mg/dL (2.7-4.5); Potassium 4.9 mEq/L (3.5-5.1)
[2019-10-26] MEDS ORDERED: 0.9 % Sodium Chloride 250 ML IVC PRN (07:38)
[2019-10-26] MEDS ORDERED: 0.9 % Sodium Chloride 1,000 ML PRIME SCH (07:45)
[2019-10-26] MEDS ORDERED: *HR* HYDROmorphone (PF) 1 MG/ML SYRINGE IVP ONE (08:51)
[2019-10-26] MEDS ORDERED: *HR* Dextrose 50 % in Water (Vial) 50 ML VIAL IVP PRN (09:35)
[2019-10-26] MEDS ORDERED: Dextrose Gel 15 GM/37.5 ML TUBE PO PRN ×2 (09:35)
[2019-10-26] MEDS ORDERED: D5% in Water 1,000 ML IVC PRN (09:35)
[2019-10-26] MEDS ORDERED: *HR* OxyCODONE Immed Rel 5 MG TABLET PO PRN (09:37)
[2019-10-26] MEDS: Ranolazine 500 MG TAB.ER.12H PO SCH ×2 (14:13→22:08)
[2019-10-26] MEDS: Insulin LISPRO 300 UNITS/3 ML VIAL SQ SCH ×3 (14:13→22:43)
[2019-10-26] MEDS: Doxycycline 100 MG CAPSULE PO SCH ×2 (14:13→22:08)
[2019-10-26] MEDS: Metoprolol XL (24 HR) Succ 50 MG TAB.ER.24H PO SCH (14:13)
[2019-10-26] MEDS: *HR* Ticagrelor 90 MG TABLET PO SCH ×2 (14:14→22:08)
[2019-10-26] MEDS: amLODIPine 5 MG TABLET PO SCH (14:14)
[2019-10-26] MEDS: Isosorbide MONOnitrate (24 HR) 60 MG TAB.ER.24H PO SCH (14:14)
[2019-10-26] MEDS: Aspirin Enteric Coated 81 MG Tablet PO SCH (14:14)
[2019-10-26] MEDS: rOPINIRole 0.25 MG TABLET PO SCH (22:08)
[2019-10-27 00:55] LABS: Bilirubin,Urine Negative (Negative); Blood,Urine Small (Negative); Clarity,Urine Ex.Turbid (Clear); Color,Urine Orange (Yellow); Glucose,Urine (UA) Normal (Normal); Ketones,Urine Negative (Negative); Leukocyte Esterase,Urine Large (Negative); Nitrite,Urine Negative (Negative); Protein,Urine 200 mg/dL (Neg-Trace); Specific Gravity,Urine 1.017 (1.010-1.025); Urobilinogen,Urine Normal (Normal); WBC,Urine TNTC per hpf (0-3)
[2019-10-27 04:16] LABS: Basophils % 0.4 %; Eosinophils # 0.3 K/mcL (0.0-0.6); Eosinophils % 4.4 %; Hemoglobin 7.4 g/dL (12.9-16.9); Immature Granulocytes % 0.5 % (0-4); Lymphocytes % 13.7 %; Mean Corpuscular HGB Conc 30.8 g/dL (31.6-35.5); Mean Corpuscular Volume 97.2 fL (83.0-100.0); Mean Platelet Volume 8.6 fL (9.4-12.4); Monocytes # 0.9 K/mcL (0.0-1.3); Monocytes % 12.4 %; Neutrophils # 5.2 K/mcL (1.6-8.9); Platelet Count 245 K/mcL (140-400); Red Blood Count 2.47 M/mcL (4.19-5.50); Red Cell Distribution Width 13.2 % (11.5-14.5); Segmented Neutrophils % 68.6 %; White Blood Count 7.5 K/mcL (4.3-11.1)
[2019-10-27 04:34] LABS: Potassium 4.3 mEq/L (3.5-5.1)
[2019-10-27] MEDS: *HR* Heparin 5,000 UNIT/ML VIAL SQ SCH ×2 (05:30→16:15)
[2019-10-27] MEDS: Piperacillin/Tazobactam 3.375 GM in 0.9 % Sodium Chloride Mini Bag 100 ML IVPB SCH (05:34)
[2019-10-27] MEDS: Insulin LISPRO 300 UNITS/3 ML VIAL SQ SCH ×4 (09:03→21:20)
[2019-10-27] MEDS: Metoprolol XL (24 HR) Succ 50 MG TAB.ER.24H PO SCH (09:04)
[2019-10-27] MEDS: Isosorbide MONOnitrate (24 HR) 60 MG TAB.ER.24H PO SCH (09:04)
[2019-10-27] MEDS: amLODIPine 5 MG TABLET PO SCH (09:04)
[2019-10-27] MEDS: Doxycycline 100 MG CAPSULE PO SCH ×2 (09:04→21:18)
[2019-10-27] MEDS: Ranolazine 500 MG TAB.ER.12H PO SCH ×2 (09:04→21:18)
[2019-10-27] MEDS: *HR* Ticagrelor 90 MG TABLET PO SCH ×2 (09:04→21:17)
[2019-10-27] MEDS: Aspirin Enteric Coated 81 MG Tablet PO SCH (09:04)
[2019-10-27 12:14] LABS: Adenovirus Not Detected (Not Detect); Bordetella Pertussis Not Detected (Not Detect); Chlamydophila pneumoniae Not Detected (Not Detect); Coronavirus 229E Not Detected (Not Detect); Coronavirus HKU1 Not Detected (Not Detect); Coronavirus NL63 Not Detected (Not Detect); Coronavirus OC43 Not Detected (Not Detect); Human Metapneumovirus Not Detected (Not Detect); Human Rhinovirus/Enterovirus Not Detected (Not Detect); Influenza A Subtype 2009 H1 Not Detected (Not Detect); Influenza B Not Detected (Not Detect); Mycoplasma pneumoniae Not Detected (Not Detect); Parainfluenza Virus 1 Not Detected (Not Detect); Parainfluenza Virus 2 Not Detected (Not Detect); Parainfluenza Virus 3 Not Detected (Not Detect); Parainfluenza Virus 4 Not Detected (Not Detect); Respiratory Syncytial Virus Not Detected (Not Detect)
[2019-10-27 12:16] LABS: SARS-CoV-2 Not Detected (Not Detect)
[2019-10-27] MEDS: Amoxicillin/Clavulanate 500 MG TABLET PO SCH (12:37)
[2019-10-27 15:35] LABS: Hematocrit 23.8 % (37.5-50.1); Hemoglobin 7.6 g/dL (12.9-16.9)
[2019-10-27] MEDS ORDERED: 0.9 % Sodium Chloride 500 ML IVC ONE (15:42)
[2019-10-27] MEDS: rOPINIRole 0.25 MG TABLET PO SCH (21:17)
[2019-10-28] MEDS: *HR* HYDROcodone/Acet 5/325 mg TABLET PO PRN (04:45)
[2019-10-28] MEDS: *HR* Heparin 5,000 UNIT/ML VIAL SQ SCH (04:53)
[2019-10-28] MEDS ORDERED: 0.9 % Sodium Chloride 250 ML IVC PRN (08:10)
[2019-10-28] MEDS: Insulin LISPRO 300 UNITS/3 ML VIAL SQ SCH ×2 (08:57→13:42)
[2019-10-28] MEDS ORDERED: Isosorbide MONOnitrate (24 HR) 30 MG TAB.ER.24H PO SCH (09:00)
[2019-10-28 13:10] VITALS: BP 127/74
[2019-10-28] MEDS: Doxycycline 100 MG CAPSULE PO SCH (13:39)
[2019-10-28] MEDS: Amoxicillin/Clavulanate 500 MG TABLET PO SCH (13:39)
[2019-10-28] MEDS: *HR* Ticagrelor 90 MG TABLET PO SCH (13:39)
[2019-10-28] MEDS: Metoprolol XL (24 HR) Succ 50 MG TAB.ER.24H PO SCH (13:39)
[2019-10-28] MEDS: Aspirin Enteric Coated 81 MG Tablet PO SCH (13:40)
[2019-10-28] MEDS: Ranolazine 500 MG TAB.ER.12H PO SCH (13:40)
== END 2019-10-28 14:52 | DRG 205 ==
LOC: 2NENU 14:42 → EMEROOARM 14:42 → 2NENU 18:41 → 3ANU 19:50 → SUATTDRO 10-25 11:52 → 2ANU 10-26 22:40
PROVIDERS: ADMIT Internal Medicine; ATTEND Family Medicine

== ENCOUNTER 2019-10-31 03:55 | Inpatient (IN) ==
[2019-10-31] MEDS ORDERED: 0.9 % Sodium Chloride 1,000 ML IVC ONE (04:09)
[2019-10-31 06:43] LABS: Basophils % 0.2 %; Eosinophils # 0.5 K/mcL (0.0-0.6); Eosinophils % 4.1 %; Hematocrit 25.8 % (37.5-50.1); Hemoglobin 8.4 g/dL (12.9-16.9); Immature Granulocytes % 0.5 % (0-4); Lymphocytes % 7.9 %; Mean Corpuscular HGB Conc 32.6 g/dL (31.6-35.5); Mean Corpuscular Hemoglobin 30.5 pg (28.0-33.3); Mean Corpuscular Volume 93.8 fL (83.0-100.0); Mean Platelet Volume 8.9 fL (9.4-12.4); Monocytes % 8.1 %; Neutrophils # 9.6 K/mcL (1.6-8.9); Platelet Count 317 K/mcL (140-400); Red Blood Count 2.75 M/mcL (4.19-5.50); Red Cell Distribution Width 13.4 % (11.5-14.5); Segmented Neutrophils % 79.2 %; White Blood Count 12.1 K/mcL (4.3-11.1)
[2019-10-31] MEDS ORDERED: Ondansetron 4 MG/2 ML VIAL IVP ONE (07:21)
[2019-10-31] MEDS ORDERED: Ondansetron 4 MG/2 ML VIAL ONE (07:26)
[2019-10-31 08:05] LABS: Albumin 3.4 g/dL (3.5-5.7); Albumin/Globulin Ratio 0.8 (1.1-2.2); Bilirubin,Total 0.3 mg/dL (0.3-1.0); Calcium 8.5 mg/dL (8.6-10.3); Globulin 4.2 g/dL (2.4-3.5); Potassium 4.9 mEq/L (3.5-5.1); Total Protein 7.6 g/dL (6.4-8.9); Troponin I 0.06 ng/mL (< 0.04)
[2019-10-31] MEDS ORDERED: *HR* Promethazine 25 MG/ML VIAL IVP PRN (09:42)
[2019-10-31] MEDS ORDERED: 0.9 % Sodium Chloride 250 ML IVC PRN (10:15)
[2019-10-31] MEDS ORDERED: 0.9 % Sodium Chloride 1,000 ML PRIME SCH (10:15)
[2019-10-31] MEDS ORDERED: Dextrose Gel 15 GM/37.5 ML TUBE PO PRN ×2 (11:26)
[2019-10-31] MEDS ORDERED: *HR* Dextrose 50 % in Water (Vial) 50 ML VIAL IVP PRN (11:26)
[2019-10-31] MEDS ORDERED: D5% in Water 1,000 ML IVC PRN (11:26)
[2019-10-31] MEDS ORDERED: Metoprolol XL (24 HR) Succ 50 MG TAB.ER.24H PO SCH ×2 (11:33→21:00)
[2019-10-31] MEDS: Isosorbide MONOnitrate (24 HR) 30 MG TAB.ER.24H PO SCH (14:15)
[2019-10-31] MEDS: Insulin LISPRO 300 UNITS/3 ML VIAL SQ SCH ×2 (14:15→16:27)
[2019-10-31] MEDS: Pantoprazole 40 MG VIAL IVP SCH ×2 (14:15→16:30)
[2019-10-31] MEDS: Metoprolol XL (24 HR) Succ 25 MG TAB.ER.24H PO SCH ×2 (14:15→21:05)
[2019-10-31] MEDS ORDERED: *HR* Ticagrelor 90 MG TABLET PO SCH (21:00)
[2019-10-31] MEDS ORDERED: rOPINIRole 0.25 MG TABLET PO SCH (21:00)
[2019-10-31] MEDS ORDERED: Insulin LISPRO 300 UNITS/3 ML VIAL SQ SCH (21:00)
[2019-10-31] MEDS ORDERED: Insulin DETEMIR 100 UNIT/ML X5UNITS SQ SCH (21:00)
[2019-10-31] MEDS: Ranolazine 500 MG TAB.ER.12H PO SCH (21:05)
[2019-11-01] MEDS: Pantoprazole 40 MG VIAL IVP SCH ×2 (06:01→16:21)
[2019-11-01 06:27] LABS: Mean Corpuscular HGB Conc 31.8 g/dL (31.6-35.5); Mean Corpuscular Hemoglobin 30.6 pg (28.0-33.3); Mean Corpuscular Volume 96.1 fL (83.0-100.0); Mean Platelet Volume 8.7 fL (9.4-12.4); Platelet Count 258 K/mcL (140-400); Red Blood Count 2.29 M/mcL (4.19-5.50); Red Cell Distribution Width 13.7 % (11.5-14.5)
[2019-11-01 06:41] LABS: Calcium 8.2 mg/dL (8.6-10.3); Potassium 4.9 mEq/L (3.5-5.1)
[2019-11-01] MEDS: Insulin LISPRO 300 UNITS/3 ML VIAL SQ SCH ×3 (08:46→16:22)
[2019-11-01] MEDS: Ranolazine 500 MG TAB.ER.12H PO SCH (08:50)
[2019-11-01] MEDS: Isosorbide MONOnitrate (24 HR) 30 MG TAB.ER.24H PO SCH (08:50)
[2019-11-01] MEDS: Metoprolol XL (24 HR) Succ 25 MG TAB.ER.24H PO SCH (08:59)
[2019-11-01] MEDS ORDERED: Isosorbide MONOnitrate (24 HR) 30 MG TAB.ER.24H PO SCH (09:00)
[2019-11-01] MEDS ORDERED: Aspirin Enteric Coated 81 MG Tablet PO SCH (09:00)
[2019-11-01] MEDS ORDERED: Metoprolol XL (24 HR) Succ 50 MG TAB.ER.24H PO SCH (09:00)
[2019-11-01] MEDS ORDERED: 0.9 % Sodium Chloride 250 ML IVC SCH (12:00)
[2019-11-01] MEDS ORDERED: SODIUM CHLORIDE/NAHCO3/KCL/PEG 4,000 ML SOLN.RECON PO ONE (15:40)
[2019-11-01 15:52] VITALS: BP 149/77
[2019-11-01 15:58] LABS: Hematocrit 21.9 % (37.5-50.1)
== END 2019-11-01 17:24 | disposition left against medical advice (07) | DRG 696 ==
LOC: EMEROOARM 03:55 → 2ANU 03:55 → SUATTDRO 09:43 → 2ANU 11:07
PROVIDERS: ADMIT Internal Medicine; ATTEND Family Medicine

== ENCOUNTER 2019-11-02 01:09 | Inpatient (IN) ==
[2019-11-02 03:29] LABS: Basophils % 0.5 %; Eosinophils # 0.3 K/mcL (0.0-0.6); Eosinophils % 4.7 %; Hematocrit 21.3 % (37.5-50.1); Hemoglobin 6.7 g/dL (12.9-16.9); Immature Granulocytes % 0.5 % (0-4); Lymphocytes # 1.1 K/mcL (0.6-4.6); Lymphocytes % 17.9 %; Mean Corpuscular HGB Conc 31.5 g/dL (31.6-35.5); Mean Corpuscular Volume 95.5 fL (83.0-100.0); Mean Platelet Volume 8.9 fL (9.4-12.4); Monocytes # 0.9 K/mcL (0.0-1.3); Monocytes % 14.7 %; Neutrophils # 3.9 K/mcL (1.6-8.9); Platelet Count 274 K/mcL (140-400); Red Blood Count 2.23 M/mcL (4.19-5.50); Red Cell Distribution Width 13.4 % (11.5-14.5); Segmented Neutrophils % 61.7 %; White Blood Count 6.3 K/mcL (4.3-11.1)
[2019-11-02 05:05] LABS: Potassium 4.6 mEq/L (3.5-5.1)
[2019-11-02] MEDS ORDERED: D5% in Water 1,000 ML IVC PRN (06:07)
[2019-11-02] MEDS ORDERED: Naloxone 0.4 MG/ML INJ IVP PRN (06:07)
[2019-11-02] MEDS ORDERED: Dextrose Gel 15 GM/37.5 ML TUBE PO PRN ×2 (06:07)
[2019-11-02] MEDS ORDERED: *HR* Dextrose 50 % in Water (Vial) 50 ML VIAL IVP PRN (06:07)
[2019-11-02] MEDS ORDERED: Nitroglycerin 0.4 MG TAB.SUBL SL PRN (06:10)
[2019-11-02] MEDS: Aspirin Enteric Coated 81 MG Tablet PO SCH (07:24)
[2019-11-02] MEDS: Ranolazine 500 MG TAB.ER.12H PO SCH ×2 (07:24→21:21)
[2019-11-02] MEDS: Metoprolol XL (24 HR) Succ 50 MG TAB.ER.24H PO SCH (07:25)
[2019-11-02] MEDS: Isosorbide MONOnitrate (24 HR) 30 MG TAB.ER.24H PO SCH (07:25)
[2019-11-02] MEDS: Insulin LISPRO 300 UNITS/3 ML VIAL SQ SCH ×3 (07:25→17:10)
[2019-11-02] MEDS ORDERED: 0.9 % Sodium Chloride 250 ML IVC PRN (08:18)
[2019-11-02] MEDS: Pantoprazole 40 MG VIAL IVP SCH (17:10)
[2019-11-02 19:50] LABS: Hematocrit 24.1 % (37.5-50.1); Hemoglobin 7.9 g/dL (12.9-16.9)
[2019-11-02] MEDS ORDERED: rOPINIRole 0.25 MG TABLET PO SCH (21:00)
[2019-11-02] MEDS ORDERED: Insulin LISPRO 300 UNITS/3 ML VIAL SQ SCH (21:00)
[2019-11-02] MEDS ORDERED: Insulin DETEMIR 100 UNIT/ML X5UNITS SQ SCH (21:00)
[2019-11-02] MEDS ORDERED: Simethicone 80 MG TAB.CHEW PO PRN (23:24)
[2019-11-03] MEDS: Lactobacillus 1 EACH CAP.SPRINK PO SCH ×2 (00:18→11:02)
[2019-11-03 03:00] LABS: Basophils % 0.4 %; Eosinophils # 0.3 K/mcL (0.0-0.6); Eosinophils % 5.1 %; Hemoglobin 7.8 g/dL (12.9-16.9); Immature Granulocytes % 0.2 % (0-4); Lymphocytes # 0.8 K/mcL (0.6-4.6); Lymphocytes % 13.7 %; Mean Corpuscular HGB Conc 32.5 g/dL (31.6-35.5); Mean Corpuscular Volume 95.2 fL (83.0-100.0); Mean Platelet Volume 8.6 fL (9.4-12.4); Monocytes # 0.7 K/mcL (0.0-1.3); Monocytes % 12.5 %; Neutrophils # 3.9 K/mcL (1.6-8.9); Platelet Count 240 K/mcL (140-400); Red Blood Count 2.52 M/mcL (4.19-5.50); Red Cell Distribution Width 13.4 % (11.5-14.5); Segmented Neutrophils % 68.1 %; White Blood Count 5.7 K/mcL (4.3-11.1)
[2019-11-03 03:19] LABS: Calcium 8.4 mg/dL (8.6-10.3); Potassium 4.1 mEq/L (3.5-5.1)
[2019-11-03] MEDS: Pantoprazole 40 MG VIAL IVP SCH (05:25)
[2019-11-03] MEDS ORDERED: Iron Sucrose Complex 200 MG in 0.9 % Sodium Chloride 100 ML IVPB ONE (07:37)
[2019-11-03] MEDS: Aspirin Enteric Coated 81 MG Tablet PO SCH (11:02)
[2019-11-03] MEDS: Metoprolol XL (24 HR) Succ 50 MG TAB.ER.24H PO SCH (11:03)
[2019-11-03] MEDS: Isosorbide MONOnitrate (24 HR) 30 MG TAB.ER.24H PO SCH (11:03)
[2019-11-03] MEDS: Ranolazine 500 MG TAB.ER.12H PO SCH (11:03)
[2019-11-03] MEDS: Psyllium 1 PACKET POWD.PACK PO SCH ×2 (11:03→14:55)
[2019-11-03] MEDS: Insulin LISPRO 300 UNITS/3 ML VIAL SQ SCH ×2 (11:07→11:59)
[2019-11-03 12:58] LABS: Hematocrit 24.3 % (37.5-50.1); Hemoglobin 7.9 g/dL (12.9-16.9)
[2019-11-03 16:03] VITALS: BP 134/67
== END 2019-11-03 18:31 | disposition home health service (06) | DRG 377 ==
LOC: 2ANU 01:09 → EMEROOARM 01:09 → SUATTDRO 05:23 → 2ANU 05:52
PROVIDERS: ADMIT Family Medicine; ATTEND Internal Medicine

== ENCOUNTER 2019-11-16 01:00 | Observation (INO) ==
[2019-11-16] MEDS ORDERED: Isovue-370 500 ML BOTTLE IVP ONE (01:19)
[2019-11-16 03:07] LABS: Basophils % 0.4 %; Eosinophils # 0.2 K/mcL (0.0-0.6); Eosinophils % 3.2 %; Hematocrit 26.7 % (37.5-50.1); Hemoglobin 8.6 g/dL (12.9-16.9); Immature Granulocytes % 0.6 % (0-4); Lymphocytes # 1.2 K/mcL (0.6-4.6); Lymphocytes % 16.6 %; Mean Corpuscular HGB Conc 32.2 g/dL (31.6-35.5); Mean Corpuscular Hemoglobin 30.5 pg (28.0-33.3); Mean Corpuscular Volume 94.7 fL (83.0-100.0); Mean Platelet Volume 9.1 fL (9.4-12.4); Monocytes # 0.8 K/mcL (0.0-1.3); Monocytes % 11.1 %; Neutrophils # 4.9 K/mcL (1.6-8.9); Platelet Count 286 K/mcL (140-400); Red Blood Count 2.82 M/mcL (4.19-5.50); Red Cell Distribution Width 14.5 % (11.5-14.5); Segmented Neutrophils % 68.1 %; White Blood Count 7.2 K/mcL (4.3-11.1)
[2019-11-16 03:09] LABS: Prothrombin Time 11.8 Seconds (9.4-12.1)
[2019-11-16 03:11] LABS: Activated Partial Thrombo Time 35.5 Seconds (26.0-36.0)
[2019-11-16 03:31] LABS: Troponin I 0.1 ng/mL (< 0.04)
[2019-11-16 03:32] LABS: Albumin 3.2 g/dL (3.5-5.7); Albumin/Globulin Ratio 0.9 (1.1-2.2); Bilirubin,Direct 0.1 mg/dL (0.0-0.2); Bilirubin,Indirect 0.2 mg/dL (0.0-1.0); Bilirubin,Total 0.3 mg/dL (0.3-1.0); Calcium 8.5 mg/dL (8.6-10.3); Globulin 3.6 g/dL (2.4-3.5); Potassium 4.7 mEq/L (3.5-5.1); Total Protein 6.8 g/dL (6.4-8.9)
[2019-11-16 03:52] LABS: Adenovirus Not Detected (Not Detect); Bordetella Pertussis Not Detected (Not Detect); Chlamydophila pneumoniae Not Detected (Not Detect); Coronavirus 229E Not Detected (Not Detect); Coronavirus HKU1 Not Detected (Not Detect); Coronavirus NL63 Not Detected (Not Detect); Coronavirus OC43 Not Detected (Not Detect); Human Metapneumovirus Not Detected (Not Detect); Human Rhinovirus/Enterovirus Not Detected (Not Detect); Influenza A Subtype 2009 H1 Not Detected (Not Detect); Influenza B Not Detected (Not Detect); Mycoplasma pneumoniae Not Detected (Not Detect); Parainfluenza Virus 1 Not Detected (Not Detect); Parainfluenza Virus 2 Not Detected (Not Detect); Parainfluenza Virus 3 Not Detected (Not Detect); Parainfluenza Virus 4 Not Detected (Not Detect); Respiratory Syncytial Virus Not Detected (Not Detect)
[2019-11-16] MEDS ORDERED: Naloxone 0.4 MG/ML INJ IVP PRN (05:54)
[2019-11-16] MEDS ORDERED: D5% in Water 1,000 ML IVC PRN (06:53)
[2019-11-16] MEDS ORDERED: Dextrose Gel 15 GM/37.5 ML TUBE PO PRN ×2 (06:53)
[2019-11-16] MEDS ORDERED: *HR* Dextrose 50 % in Water (Vial) 50 ML VIAL IVP PRN (06:53)
[2019-11-16] MEDS ORDERED: 0.9 % Sodium Chloride 250 ML IVC PRN (07:22)
[2019-11-16] MEDS ORDERED: 0.9 % Sodium Chloride 1,000 ML PRIME SCH (07:30)
[2019-11-16] MEDS ORDERED: Nitroglycerin 0.4 MG TAB.SUBL SL PRN (08:05)
[2019-11-16 09:41] LABS: Hematocrit 24.5 % (37.5-50.1); Mean Corpuscular HGB Conc 32.7 g/dL (31.6-35.5); Mean Corpuscular Hemoglobin 30.2 pg (28.0-33.3); Mean Corpuscular Volume 92.5 fL (83.0-100.0); Platelet Count 275 K/mcL (140-400); Red Blood Count 2.65 M/mcL (4.19-5.50); Red Cell Distribution Width 14.3 % (11.5-14.5); White Blood Count 6.3 K/mcL (4.3-11.1)
[2019-11-16] MEDS ORDERED: Insulin LISPRO 300 UNITS/3 ML VIAL SQ SCH (12:00)
[2019-11-16] MEDS: Metoprolol XL (24 HR) Succ 50 MG TAB.ER.24H PO SCH (13:45)
[2019-11-16] MEDS: Cholecalciferol (D-3) 1,000 UNIT (25MCG) TABLET PO SCH (13:46)
[2019-11-16] MEDS: Isosorbide MONOnitrate (24 HR) 30 MG TAB.ER.24H PO SCH (13:46)
[2019-11-16] MEDS: Aspirin Enteric Coated 81 MG Tablet PO SCH (13:46)
[2019-11-16] MEDS: Psyllium 1 PACKET POWD.PACK PO SCH ×3 (13:48→20:33)
[2019-11-16] MEDS: Ranolazine 500 MG TAB.ER.12H PO SCH ×2 (17:54→20:34)
[2019-11-16] MEDS ORDERED: Insulin DETEMIR 100 UNIT/ML X5UNITS SQ SCH (21:00)
[2019-11-16] MEDS ORDERED: rOPINIRole 0.25 MG TABLET PO SCH (21:00)
[2019-11-16] MEDS ORDERED: Melatonin 3 MG TABLET PO ONE (23:23)
[2019-11-17] MEDS: Aspirin Enteric Coated 81 MG Tablet PO SCH (08:08)
[2019-11-17] MEDS: Metoprolol XL (24 HR) Succ 50 MG TAB.ER.24H PO SCH (08:09)
[2019-11-17] MEDS: Cholecalciferol (D-3) 1,000 UNIT (25MCG) TABLET PO SCH (08:09)
[2019-11-17] MEDS: Ranolazine 500 MG TAB.ER.12H PO SCH (08:09)
[2019-11-17] MEDS: Isosorbide MONOnitrate (24 HR) 30 MG TAB.ER.24H PO SCH (08:09)
[2019-11-17] MEDS: Psyllium 1 PACKET POWD.PACK PO SCH (08:12)
[2019-11-17 11:20] VITALS: BP 152/81
== END 2019-11-17 13:15 | disposition home health service (06) ==
LOC: EMEROOARM 01:00 → 3BNU 01:00
PROVIDERS: ADMIT Student in an Organized Health Care Education/Training Program; ATTEND Student in an Organized Health Care Education/Training Program

== ENCOUNTER 2019-11-22 15:06 | Observation (INO) ==
[2019-11-22] MEDS ORDERED: Ondansetron 4 MG/2 ML VIAL ONE (15:11)
[2019-11-22] MEDS ORDERED: Ondansetron 4 MG/2 ML VIAL IVP ONE (15:14)
[2019-11-22] MEDS ORDERED: Metoclopramide 10 MG/2 ML VIAL IVP ONE (15:45)
[2019-11-22 15:47] LABS: Basophils % 0.5 %; Eosinophils # 0.1 K/mcL (0.0-0.6); Eosinophils % 1.5 %; Hematocrit 32.3 % (37.5-50.1); Immature Granulocytes % 0.4 % (0-4); Lymphocytes # 0.9 K/mcL (0.6-4.6); Lymphocytes % 10.4 %; Mean Corpuscular HGB Conc 32.5 g/dL (31.6-35.5); Mean Corpuscular Hemoglobin 30.3 pg (28.0-33.3); Mean Corpuscular Volume 93.4 fL (83.0-100.0); Monocytes # 0.8 K/mcL (0.0-1.3); Monocytes % 9.8 %; Neutrophils # 6.4 K/mcL (1.6-8.9); Platelet Count 322 K/mcL (140-400); Red Blood Count 3.46 M/mcL (4.19-5.50); Segmented Neutrophils % 77.4 %; White Blood Count 8.2 K/mcL (4.3-11.1)
[2019-11-22 15:51] LABS: Hemoglobin 10.5 g/dL (12.9-16.9)
[2019-11-22 16:06] LABS: Troponin I 0.06 ng/mL (< 0.04)
[2019-11-22 16:19] LABS: Albumin 3.8 g/dL (3.5-5.7); Bilirubin,Total 0.4 mg/dL (0.3-1.0); Calcium 9.1 mg/dL (8.6-10.3); Potassium 3.8 mEq/L (3.5-5.1); Total Protein 7.8 g/dL (6.4-8.9)
[2019-11-22] MEDS ORDERED: *HR* HYDROcodone/Acet 5/325 mg TABLET PO PRN (16:54)
[2019-11-22] MEDS ORDERED: Naloxone 0.4 MG/ML INJ IVP PRN (16:54)
[2019-11-22] MEDS ORDERED: Ondansetron 4 MG/2 ML VIAL IVP PRN (16:54)
[2019-11-22] MEDS ORDERED: Dextrose Gel 15 GM/37.5 ML TUBE PO PRN ×2 (16:57)
[2019-11-22] MEDS ORDERED: D5% in Water 1,000 ML IVC PRN (16:57)
[2019-11-22] MEDS ORDERED: *HR* Dextrose 50 % in Water (Vial) 50 ML VIAL IVP PRN (16:57)
[2019-11-22] MEDS ORDERED: Nitroglycerin 0.4 MG TAB.SUBL SL PRN (16:58)
[2019-11-22] MEDS ORDERED: rOPINIRole 0.25 MG TABLET PO SCH (21:00)
[2019-11-22] MEDS: Insulin LISPRO 300 UNITS/3 ML VIAL SQ SCH (21:09)
[2019-11-22] MEDS: Ranolazine 500 MG TAB.ER.12H PO SCH (21:09)
[2019-11-22] MEDS: Insulin DETEMIR 100 UNIT/ML X5UNITS SQ SCH (21:51)
[2019-11-23] MEDS: Insulin LISPRO 300 UNITS/3 ML VIAL SQ SCH ×3 (01:22→08:30)
[2019-11-23] MEDS ORDERED: 0.9 % Sodium Chloride 250 ML IVC PRN (07:55)
[2019-11-23] MEDS ORDERED: *HR* Heparin 10,000 UNIT/10 ML VIAL IV PRN (07:55)
[2019-11-23] MEDS ORDERED: 0.9 % Sodium Chloride 1,000 ML PRIME SCH (08:00)
[2019-11-23] MEDS: Ranolazine 500 MG TAB.ER.12H PO SCH (08:28)
[2019-11-23] MEDS: Insulin DETEMIR 100 UNIT/ML X5UNITS SQ SCH (08:28)
[2019-11-23] MEDS ORDERED: Metoprolol XL (24 HR) Succ 50 MG TAB.ER.24H PO SCH (09:00)
[2019-11-23] MEDS ORDERED: Aspirin Enteric Coated 81 MG Tablet PO SCH (09:00)
[2019-11-23 11:22] LABS: Basophils % 0.4 %; Eosinophils # 0.3 K/mcL (0.0-0.6); Eosinophils % 3.4 %; Hematocrit 28.5 % (37.5-50.1); Immature Granulocytes % 0.4 % (0-4); Mean Corpuscular HGB Conc 31.6 g/dL (31.6-35.5); Mean Corpuscular Hemoglobin 29.9 pg (28.0-33.3); Mean Corpuscular Volume 94.7 fL (83.0-100.0); Mean Platelet Volume 8.9 fL (9.4-12.4); Monocytes # 0.6 K/mcL (0.0-1.3); Monocytes % 7.9 %; Platelet Count 316 K/mcL (140-400); Red Blood Count 3.01 M/mcL (4.19-5.50); Red Cell Distribution Width 14.7 % (11.5-14.5); Segmented Neutrophils % 74.9 %
[2019-11-23 11:27] LABS: INR 1.1; Prothrombin Time 12.3 Seconds (9.4-12.1)
[2019-11-23 11:29] LABS: Activated Partial Thrombo Time 34.1 Seconds (26.0-36.0)
[2019-11-23 11:39] LABS: Calcium 8.3 mg/dL (8.6-10.3); Magnesium 1.6 mg/dL (1.6-2.6); Phosphorous 5.3 mg/dL (2.7-4.5); Potassium 4.6 mEq/L (3.5-5.1)
[2019-11-23 12:40] VITALS: BP 149/72
== END 2019-11-23 16:27 | disposition home health service (06) ==
LOC: 2ANU 15:06 → EMEROOARM 15:06 → SUATTDRO 17:00 → 2ANU 17:34
PROVIDERS: ADMIT Internal Medicine; ATTEND Family Medicine

== ENCOUNTER 2020-03-02 06:15 | Observation (INO) ==
[2020-03-02] MEDS ORDERED: Nitroglycerin 1 INCH/GM PACKET TP ONE (06:29)
[2020-03-02] MEDS ORDERED: Aspirin 81 MG TAB.CHEW PO ONE (06:29)
[2020-03-02 06:46] LABS: Basophils # 0.1 K/mcL (0.0-0.2); Basophils % 0.6 %; Eosinophils # 0.2 K/mcL (0.0-0.6); Eosinophils % 2.8 %; Hematocrit 36.2 % (37.5-50.1); Hemoglobin 11.8 g/dL (12.9-16.9); Immature Granulocytes % 0.2 % (0-4); Lymphocytes % 12.2 %; Mean Corpuscular HGB Conc 32.6 g/dL (31.6-35.5); Mean Platelet Volume 9.2 fL (9.4-12.4); Monocytes # 0.7 K/mcL (0.0-1.3); Monocytes % 8.2 %; Neutrophils # 6.3 K/mcL (1.6-8.9); Platelet Count 244 K/mcL (140-400); Red Blood Count 3.81 M/mcL (4.19-5.50); Red Cell Distribution Width 14.6 % (11.5-14.5); White Blood Count 8.3 K/mcL (4.3-11.1)
[2020-03-02 07:18] LABS: Albumin 3.6 g/dL (3.5-5.7); Albumin/Globulin Ratio 1.1 (1.1-2.2); Bilirubin,Direct 0.1 mg/dL (0.0-0.2); Bilirubin,Indirect 0.2 mg/dL (0.0-1.0); Bilirubin,Total 0.3 mg/dL (0.3-1.0); Calcium 8.4 mg/dL (8.6-10.3); Globulin 3.4 g/dL (2.4-3.5); Potassium 5.2 mEq/L (3.5-5.1); Troponin I 0.05 ng/mL (< 0.04)
[2020-03-02 07:20] LABS: Activated Partial Thrombo Time 30.8 Seconds (26.0-36.0); INR 1.1; Prothrombin Time 12.8 Seconds (9.4-12.1)
[2020-03-02] MEDS ORDERED: cefTRIAXone 1,000 MG in 0.9 % Sodium Chloride Mini Bag 100 ML IVPB ONE (07:48)
[2020-03-02] MEDS ORDERED: Doxycycline 100 MG in 0.9 % Sodium Chloride Mini Bag 100 ML IVPB ONE (07:48)
[2020-03-02] MEDS ORDERED: Naloxone 0.4 MG/ML INJ IVP PRN (08:11)
[2020-03-02] MEDS ORDERED: Nitroglycerin 0.4 MG TAB.SUBL SL PRN (08:15)
[2020-03-02] MEDS ORDERED: D5% in Water 1,000 ML IVC PRN (08:20)
[2020-03-02] MEDS ORDERED: *HR* Dextrose 50 % in Water (Vial) 50 ML VIAL IVP PRN (08:20)
[2020-03-02] MEDS ORDERED: Dextrose Gel 15 GM/37.5 ML TUBE PO PRN ×2 (08:20)
[2020-03-02] MEDS ORDERED: *HR* Heparin 5,000 UNIT/ML VIAL IVP ONE (08:49)
[2020-03-02] MEDS ORDERED: *HR* Heparin 5,000 UNIT/ML VIAL IVP PRN ×2 (08:49)
[2020-03-02] MEDS ORDERED: Heparin 25,000UNIT/250ML 1/2NS 25,000 UNIT/250 ML IV.SOLN IVC SCH (09:00)
[2020-03-02] MEDS: lisinopriL 5 MG TABLET PO SCH (09:12)
[2020-03-02] MEDS: Metoprolol XL (24 HR) Succ 50 MG TAB.ER.24H PO SCH (09:13)
[2020-03-02] MEDS: Isosorbide MONOnitrate (24 HR) 60 MG TAB.ER.24H PO SCH (09:13)
[2020-03-02] MEDS: Ranolazine 500 MG TAB.ER.12H PO SCH ×2 (09:13→21:45)
[2020-03-02 09:22] LABS: Hemoglobin 11.1 g/dL (12.9-16.9); Mean Corpuscular HGB Conc 31.7 g/dL (31.6-35.5); Mean Corpuscular Hemoglobin 30.2 pg (28.0-33.3); Mean Corpuscular Volume 95.4 fL (83.0-100.0); Mean Platelet Volume 8.9 fL (9.4-12.4); Platelet Count 236 K/mcL (140-400); Red Blood Count 3.67 M/mcL (4.19-5.50); Red Cell Distribution Width 14.6 % (11.5-14.5); White Blood Count 7.7 K/mcL (4.3-11.1)
[2020-03-02 09:35] LABS: Heparin anti-factor XA UFH 0.04 IU/mL (0.30-0.70); INR 1.1; Prothrombin Time 12.4 Seconds (9.4-12.1)
[2020-03-02] MEDS ORDERED: 0.9 % Sodium Chloride 250 ML IVC PRN (14:04)
[2020-03-02] MEDS ORDERED: 0.9 % Sodium Chloride 1,000 ML PRIME SCH (14:15)
[2020-03-02] MEDS: Insulin LISPRO 300 UNITS/3 ML VIAL SQ SCH ×2 (18:24→18:30)
[2020-03-02] MEDS: Silvasorb 44.4 ML TUBE TP SCH (19:31)
[2020-03-02] MEDS: Doxycycline 100 MG in 0.9 % Sodium Chloride Mini Bag 100 ML IVPB SCH (19:31)
[2020-03-02] MEDS ORDERED: rOPINIRole 0.25 MG TABLET PO SCH (21:00)
[2020-03-02] MEDS ORDERED: Insulin DETEMIR 100 UNIT/ML X5UNITS SQ SCH (21:00)
[2020-03-02] MEDS ORDERED: Insulin LISPRO 300 UNITS/3 ML VIAL SQ SCH (21:00)
[2020-03-03] MEDS: Doxycycline 100 MG in 0.9 % Sodium Chloride Mini Bag 100 ML IVPB SCH (06:16)
[2020-03-03 08:02] VITALS: BP 164/70
[2020-03-03] MEDS: Metoprolol XL (24 HR) Succ 50 MG TAB.ER.24H PO SCH (08:04)
[2020-03-03] MEDS: Ranolazine 500 MG TAB.ER.12H PO SCH (08:04)
[2020-03-03] MEDS: Isosorbide MONOnitrate (24 HR) 60 MG TAB.ER.24H PO SCH (08:04)
[2020-03-03] MEDS: lisinopriL 5 MG TABLET PO SCH (08:04)
[2020-03-03] MEDS: Insulin LISPRO 300 UNITS/3 ML VIAL SQ SCH (08:07)
[2020-03-03] MEDS: Silvasorb 44.4 ML TUBE TP SCH (08:07)
[2020-03-03] MEDS ORDERED: Aspirin Enteric Coated 81 MG Tablet PO SCH (09:00)
[2020-03-03] MEDS ORDERED: cefTRIAXone 1,000 MG in Water for inj. (sterile) 10 ML IVP SCH (09:00)
[2020-03-07] MEDS ORDERED: Ergocalciferol (VIT D2) 50,000 UNIT (1.25MG) CAP PO SCH (09:00)
== END 2020-03-03 09:46 | disposition left against medical advice (07) ==
LOC: EMEROOARM 06:15 → 2ANU 06:15 → SUATTDRO 13:40 → 2ANU 14:00
PROVIDERS: ADMIT Student in an Organized Health Care Education/Training Program; ATTEND General Practice

== ENCOUNTER 2020-03-17 20:00 | Inpatient (IN) ==
[2020-03-17] MEDS ORDERED: Isovue-370 500 ML BOTTLE IVP ONE (20:36)
[2020-03-17 20:41] LABS: Hematocrit 33.9 % (37.5-50.1); Hemoglobin 11.2 g/dL (12.9-16.9); Mean Corpuscular Volume 93.9 fL (83.0-100.0); Mean Platelet Volume 9.1 fL (9.4-12.4); Platelet Count 260 K/mcL (140-400); Red Blood Count 3.61 M/mcL (4.19-5.50); Red Cell Distribution Width 14.2 % (11.5-14.5); White Blood Count 9.5 K/mcL (4.3-11.1)
[2020-03-17] MEDS ORDERED: *HR* FentaNYL (PF) 100 MCG/2 ML VIAL IVP ONE (20:56)
[2020-03-17 20:59] LABS: Calcium 8.4 mg/dL (8.6-10.3); Potassium 5.8 mEq/L (3.5-5.1)
[2020-03-17 21:03] LABS: Troponin I 0.07 ng/mL (< 0.04)
[2020-03-17] MEDS ORDERED: *HR* Heparin 5,000 UNIT/ML VIAL IVP PRN ×2 (22:28)
[2020-03-17] MEDS ORDERED: *HR* Heparin 5,000 UNIT/ML VIAL IVP ONE (22:28)
[2020-03-17] MEDS ORDERED: Naloxone 0.4 MG/ML INJ IVP PRN (22:37)
[2020-03-18] MEDS ORDERED: Acetaminophen 325 MG TABLET PO ONE (00:06)
[2020-03-18] MEDS ORDERED: Dextrose Gel 15 GM/37.5 ML TUBE PO PRN ×2 (00:46)
[2020-03-18] MEDS ORDERED: D5% in Water 1,000 ML IVC PRN (00:46)
[2020-03-18] MEDS ORDERED: *HR* Dextrose 50 % in Water (Vial) 50 ML VIAL IVP PRN (00:46)
[2020-03-18] MEDS: Morphine Sulfate 2 MG/ML SYRINGE IVP PRN ×2 (01:42→06:15)
[2020-03-18] MEDS: Heparin 25,000UNIT/250ML 1/2NS 25,000 UNIT/250 ML IV.SOLN IVC SCH (01:45)
[2020-03-18] MEDS: Ondansetron 4 MG/2 ML VIAL IVP PRN (02:42)
[2020-03-18 03:08] LABS: Basophils # 0.1 K/mcL (0.0-0.2); Basophils % 0.6 %; Eosinophils # 0.3 K/mcL (0.0-0.6); Eosinophils % 3.6 %; Hemoglobin 11.2 g/dL (12.9-16.9); Immature Granulocytes % 0.2 % (0-4); Lymphocytes # 1.2 K/mcL (0.6-4.6); Lymphocytes % 14.4 %; Mean Corpuscular Hemoglobin 30.8 pg (28.0-33.3); Mean Corpuscular Volume 96.2 fL (83.0-100.0); Mean Platelet Volume 9.3 fL (9.4-12.4); Monocytes # 0.6 K/mcL (0.0-1.3); Monocytes % 7.4 %; Neutrophils # 6.1 K/mcL (1.6-8.9); Platelet Count 272 K/mcL (140-400); Red Blood Count 3.64 M/mcL (4.19-5.50); Red Cell Distribution Width 14.3 % (11.5-14.5); Segmented Neutrophils % 73.8 %; White Blood Count 8.2 K/mcL (4.3-11.1)
[2020-03-18 03:24] LABS: Calcium 8.3 mg/dL (8.6-10.3); Potassium 5.8 mEq/L (3.5-5.1)
[2020-03-18] MEDS: Insulin LISPRO 300 UNITS/3 ML VIAL SQ SCH ×3 (05:52→17:38)
[2020-03-18] MEDS ORDERED: Insulin Human Regular 10 UNIT in 0.9 % Sodium Chloride 10 ML IV ONE (06:54)
[2020-03-18] MEDS ORDERED: *HR* Dextrose 50 % in Water (Syg) 50 ML SYRINGE IVP ONE (06:54)
[2020-03-18 07:01] LABS: Estimated Average Glucose 197 mg/dl
[2020-03-18] MEDS: amLODIPine 5 MG TABLET PO SCH (08:37)
[2020-03-18] MEDS: Aspirin 81 MG TAB.CHEW PO SCH (08:37)
[2020-03-18] MEDS: Metoprolol XL (24 HR) Succ 50 MG TAB.ER.24H PO SCH (08:37)
[2020-03-18] MEDS: Isosorbide MONOnitrate (24 HR) 30 MG TAB.ER.24H PO SCH (11:10)
[2020-03-18 12:27] LABS: Adenovirus Not Detected (Not Detect); Bordetella Pertussis Not Detected (Not Detect); Coronavirus 229E Not Detected (Not Detect); Coronavirus HKU1 Not Detected (Not Detect); Coronavirus NL63 Not Detected (Not Detect); Coronavirus OC43 Not Detected (Not Detect); Human Metapneumovirus Not Detected (Not Detect); Human Rhinovirus/Enterovirus Not Detected (Not Detect); Influenza A Subtype 2009 H1 Not Detected (Not Detect); Influenza B Not Detected (Not Detect); Parainfluenza Virus 1 Not Detected (Not Detect); Parainfluenza Virus 2 Not Detected (Not Detect); Parainfluenza Virus 3 Not Detected (Not Detect); Parainfluenza Virus 4 Not Detected (Not Detect); Respiratory Syncytial Virus Not Detected (Not Detect); SARS-CoV-2 Not Detected (Not Detect)
[2020-03-18 12:28] LABS: Chlamydophila pneumoniae Not Detected (Not Detect); Mycoplasma pneumoniae Not Detected (Not Detect)
[2020-03-18] MEDS ORDERED: 0.9 % Sodium Chloride 250 ML IVC PRN (12:29)
[2020-03-18] MEDS ORDERED: 0.9 % Sodium Chloride 1,000 ML PRIME SCH (12:30)
[2020-03-18] MEDS: Acetaminophen 325 MG TABLET PO PRN ×2 (12:53→20:47)
[2020-03-18] MEDS: lisinopriL 5 MG TABLET PO SCH (14:20)
[2020-03-18 14:54] LABS: Hepatitis B Surface Antibody 3.25 mIU/mL
[2020-03-18 15:05] LABS: Hepatitis B Surface Antigen Nonreactive (Nonreactive)
[2020-03-18] MEDS: Ranolazine 500 MG TAB.ER.12H PO SCH (20:32)
[2020-03-19] MEDS ORDERED: *HR* Labetalol 20 MG/4 ML SYRINGE IVP PRN (00:44)
[2020-03-19] MEDS: Heparin 25,000UNIT/250ML 1/2NS 25,000 UNIT/250 ML IV.SOLN IVC SCH (03:57)
[2020-03-19] MEDS ORDERED: Isosorbide MONOnitrate (24 HR) 60 MG TAB.ER.24H PO ONE (12:00)
[2020-03-19 12:39] LABS: Basophils % 0.3 %; Eosinophils # 0.2 K/mcL (0.0-0.6); Eosinophils % 3.5 %; Hematocrit 33.9 % (37.5-50.1); Hemoglobin 11.6 g/dL (12.9-16.9); Immature Granulocytes % 0.3 % (0-4); Lymphocytes # 0.8 K/mcL (0.6-4.6); Lymphocytes % 12.6 %; Mean Corpuscular HGB Conc 34.2 g/dL (31.6-35.5); Mean Corpuscular Hemoglobin 31.4 pg (28.0-33.3); Mean Corpuscular Volume 91.6 fL (83.0-100.0); Monocytes # 0.4 K/mcL (0.0-1.3); Monocytes % 6.1 %; Neutrophils # 4.8 K/mcL (1.6-8.9); Platelet Count 248 K/mcL (140-400); Red Cell Distribution Width 14.3 % (11.5-14.5); Segmented Neutrophils % 77.2 %; White Blood Count 6.3 K/mcL (4.3-11.1)
[2020-03-19 13:08] LABS: Potassium 3.5 mEq/L (3.5-5.1)
[2020-03-19] MEDS: Insulin LISPRO 300 UNITS/3 ML VIAL SQ SCH ×3 (15:01→17:50)
[2020-03-19] MEDS: amLODIPine 5 MG TABLET PO SCH (15:02)
[2020-03-19] MEDS: lisinopriL 5 MG TABLET PO SCH (15:02)
[2020-03-19] MEDS: Metoprolol XL (24 HR) Succ 50 MG TAB.ER.24H PO SCH (15:03)
[2020-03-19] MEDS: Aspirin 81 MG TAB.CHEW PO SCH (17:49)
[2020-03-19] MEDS: Ranolazine 500 MG TAB.ER.12H PO SCH ×2 (17:50→20:38)
[2020-03-19] MEDS: Isosorbide MONOnitrate (24 HR) 30 MG TAB.ER.24H PO SCH (17:51)
[2020-03-19] MEDS: Ondansetron 4 MG/2 ML VIAL IVP PRN (20:38)
[2020-03-19] MEDS ORDERED: rOPINIRole 0.25 MG TABLET PO SCH (21:00)
[2020-03-20] MEDS: Ondansetron 4 MG/2 ML VIAL IVP PRN (02:51)
[2020-03-20] MEDS: Insulin LISPRO 300 UNITS/3 ML VIAL SQ SCH ×2 (08:11→12:00)
[2020-03-20] MEDS: Ranolazine 500 MG TAB.ER.12H PO SCH (08:20)
[2020-03-20] MEDS: Aspirin 81 MG TAB.CHEW PO SCH (08:21)
[2020-03-20] MEDS: amLODIPine 5 MG TABLET PO SCH (08:21)
[2020-03-20] MEDS: Metoprolol XL (24 HR) Succ 50 MG TAB.ER.24H PO SCH (08:21)
[2020-03-20] MEDS: lisinopriL 5 MG TABLET PO SCH (08:22)
[2020-03-20] MEDS ORDERED: Isosorbide MONOnitrate (24 HR) 30 MG TAB.ER.24H PO SCH (09:00)
[2020-03-20 10:55] LABS: Mean Corpuscular Hemoglobin 31.4 pg (28.0-33.3)
[2020-03-20 10:57] LABS: Basophils % 0.5 %; Eosinophils # 0.3 K/mcL (0.0-0.6); Eosinophils % 4.1 %; Hematocrit 36.1 % (37.5-50.1); Hemoglobin 12.2 g/dL (12.9-16.9); Immature Granulocytes % 0.9 % (0-4); Immature Platelets 1.3 % (1.1-6.1); Lymphocytes % 14.7 %; Mean Corpuscular HGB Conc 33.8 g/dL (31.6-35.5); Mean Corpuscular Volume 92.8 fL (83.0-100.0); Mean Platelet Volume 9.5 fL (9.4-12.4); Monocytes # 0.5 K/mcL (0.0-1.3); Monocytes % 8.2 %; Neutrophils # 4.7 K/mcL (1.6-8.9); Platelet Count 278 K/mcL (140-400); Red Blood Count 3.89 M/mcL (4.19-5.50); Red Cell Distribution Width 14.3 % (11.5-14.5); Segmented Neutrophils % 71.6 %; White Blood Count 6.6 K/mcL (4.3-11.1)
[2020-03-20 14:27] VITALS: BP 142/72
== END 2020-03-20 18:15 | disposition home health service (06) | DRG 304 ==
LOC: EMEROOARM 20:00 → 3BNU 20:00
PROVIDERS: ADMIT Student in an Organized Health Care Education/Training Program; ATTEND Student in an Organized Health Care Education/Training Program

== ENCOUNTER 2020-04-29 12:36 | Observation (INO) ==
[2020-04-29] MEDS ORDERED: Morphine Sulfate 2 MG/ML SYRINGE IVP ONE (13:03)
[2020-04-29 13:13] LABS: Basophils # 0.1 K/mcL (0.0-0.2); Basophils % 0.6 %; Eosinophils # 0.3 K/mcL (0.0-0.6); Eosinophils % 3.3 %; Hematocrit 32.6 % (37.5-50.1); Hemoglobin 10.8 g/dL (12.9-16.9); Immature Granulocytes % 0.6 % (0-4); Lymphocytes # 1.1 K/mcL (0.6-4.6); Lymphocytes % 13.6 %; Mean Corpuscular HGB Conc 33.1 g/dL (31.6-35.5); Mean Corpuscular Volume 96.7 fL (83.0-100.0); Mean Platelet Volume 9.1 fL (9.4-12.4); Monocytes # 0.7 K/mcL (0.0-1.3); Monocytes % 8.1 %; Neutrophils # 6.2 K/mcL (1.6-8.9); Platelet Count 306 K/mcL (140-400); Red Blood Count 3.37 M/mcL (4.19-5.50); Red Cell Distribution Width 14.9 % (11.5-14.5); Segmented Neutrophils % 73.8 %; White Blood Count 8.4 K/mcL (4.3-11.1)
[2020-04-29 13:22] LABS: Prothrombin Time 11.4 Seconds (9.4-12.1)
[2020-04-29 13:25] LABS: Activated Partial Thrombo Time 31.6 Seconds (26.0-36.0)
[2020-04-29 13:32] LABS: Calcium 8.3 mg/dL (8.6-10.3); Potassium 5.4 mEq/L (3.5-5.1)
[2020-04-29 13:38] LABS: Troponin I 0.07 ng/mL (< 0.04)
[2020-04-29] MEDS: Nitroglycerin 0.4 MG TAB.SUBL SL PRN ×2 (13:57→14:02)
[2020-04-29 14:44] LABS: Adenovirus Not Detected (Not Detect); Coronavirus 229E Not Detected (Not Detect)
[2020-04-29 14:45] LABS: Bordetella Pertussis Not Detected (Not Detect); Chlamydophila pneumoniae Not Detected (Not Detect); Coronavirus HKU1 Not Detected (Not Detect); Coronavirus NL63 Not Detected (Not Detect); Coronavirus OC43 Not Detected (Not Detect); Human Metapneumovirus Not Detected (Not Detect); Human Rhinovirus/Enterovirus Not Detected (Not Detect); Influenza A Subtype 2009 H1 Not Detected (Not Detect); Influenza B Not Detected (Not Detect); Mycoplasma pneumoniae Not Detected (Not Detect); Parainfluenza Virus 1 Not Detected (Not Detect); Parainfluenza Virus 2 Not Detected (Not Detect); Parainfluenza Virus 3 Not Detected (Not Detect); Parainfluenza Virus 4 Not Detected (Not Detect); Respiratory Syncytial Virus Not Detected (Not Detect); SARS-CoV-2 Not Detected (Not Detect)
[2020-04-29] MEDS ORDERED: D5% in Water 1,000 ML IVC PRN (15:38)
[2020-04-29] MEDS ORDERED: Dextrose Gel 15 GM/37.5 ML TUBE PO PRN ×2 (15:38)
[2020-04-29] MEDS ORDERED: *HR* Dextrose 50 % in Water (Vial) 50 ML VIAL IVP PRN (15:38)
[2020-04-29] MEDS ORDERED: Naloxone 0.4 MG/ML INJ IVP PRN (15:38)
[2020-04-29] MEDS: niCARdipine 20 MG/200 ML MLS IVC SCH (16:18)
[2020-04-29] MEDS: *HR* Heparin 5,000 UNIT/ML VIAL SQ SCH (17:49)
[2020-04-29] MEDS: Insulin LISPRO 300 UNITS/3 ML VIAL SUBQ SCH (17:49)
[2020-04-29] MEDS: Insulin DETEMIR 100 UNIT/ML X5UNITS SUBQ SCH (21:00)
[2020-04-29] MEDS: Acetaminophen 325 MG TABLET PO PRN (21:11)
[2020-04-30] MEDS ORDERED: Acetaminophen IV 1,000 MG/100 ML BAG IVPB ONE (00:49)
[2020-04-30] MEDS: niCARdipine 20 MG/200 ML MLS IVC SCH (03:58)
[2020-04-30 04:20] LABS: Basophils % 0.5 %; Eosinophils # 0.4 K/mcL (0.0-0.6); Eosinophils % 4.2 %; Hematocrit 31.9 % (37.5-50.1); Hemoglobin 10.3 g/dL (12.9-16.9); Immature Granulocytes % 0.4 % (0-4); Lymphocytes # 1.4 K/mcL (0.6-4.6); Lymphocytes % 16.5 %; Mean Corpuscular HGB Conc 32.3 g/dL (31.6-35.5); Mean Corpuscular Hemoglobin 31.3 pg (28.0-33.3); Mean Platelet Volume 8.8 fL (9.4-12.4); Monocytes # 0.6 K/mcL (0.0-1.3); Monocytes % 6.5 %; Neutrophils # 6.1 K/mcL (1.6-8.9); Platelet Count 285 K/mcL (140-400); Red Blood Count 3.29 M/mcL (4.19-5.50); Segmented Neutrophils % 71.9 %; White Blood Count 8.4 K/mcL (4.3-11.1)
[2020-04-30] MEDS ORDERED: Morphine Sulfate 2 MG/ML SYRINGE IVP ONE (04:25)
[2020-04-30] MEDS: *HR* Heparin 5,000 UNIT/ML VIAL SQ SCH ×2 (04:38→17:11)
[2020-04-30 04:53] LABS: Calcium 8.1 mg/dL (8.6-10.3); Chol/HDL Ratio 4.7 (0-4.9); Magnesium 1.8 mg/dL (1.6-2.6); Potassium 6.2 mEq/L (3.5-5.1)
[2020-04-30] MEDS ORDERED: 0.9 % Sodium Chloride 250 ML IVC PRN (07:46)
[2020-04-30] MEDS ORDERED: 0.9 % Sodium Chloride 1,000 ML PRIME SCH (08:00)
[2020-04-30] MEDS ORDERED: Isosorbide MONOnitrate (24 HR) 30 MG TAB.ER.24H PO SCH (09:00)
[2020-04-30] MEDS ORDERED: Metoprolol XL (24 HR) Succ 50 MG TAB.ER.24H PO SCH (09:00)
[2020-04-30] MEDS: Insulin LISPRO 300 UNITS/3 ML VIAL SUBQ SCH ×3 (10:33→17:12)
[2020-04-30] MEDS: Ondansetron 4 MG/2 ML VIAL IVP PRN (12:01)
[2020-04-30] MEDS: amLODIPine 5 MG TABLET PO SCH (12:01)
[2020-04-30] MEDS: Isosorbide MONOnitrate (24 HR) 30 MG TAB.ER.24H PO SCH (14:15)
[2020-04-30 16:40] LABS: Hepatitis B Surface Antibody < 3.10 mIU/mL
[2020-04-30 16:49] LABS: Hepatitis B Surface Antigen Nonreactive (Nonreactive)
[2020-04-30] MEDS: Aspirin Enteric Coated 81 MG Tablet PO SCH (17:11)
[2020-04-30] MEDS: Insulin DETEMIR 100 UNIT/ML X5UNITS SUBQ SCH (20:02)
[2020-04-30] MEDS: Ranolazine 500 MG TAB.ER.12H PO SCH (20:02)
[2020-04-30] MEDS: Acetaminophen 325 MG TABLET PO PRN (20:03)
[2020-05-01] MEDS: *HR* Heparin 5,000 UNIT/ML VIAL SQ SCH (05:08)
[2020-05-01 07:52] VITALS: BP 133/75
[2020-05-01] MEDS: amLODIPine 5 MG TABLET PO SCH (08:51)
[2020-05-01] MEDS: Ranolazine 500 MG TAB.ER.12H PO SCH (08:51)
[2020-05-01] MEDS: Isosorbide MONOnitrate (24 HR) 30 MG TAB.ER.24H PO SCH (08:51)
[2020-05-01] MEDS: Aspirin Enteric Coated 81 MG Tablet PO SCH (08:52)
[2020-05-01] MEDS: Insulin LISPRO 300 UNITS/3 ML VIAL SUBQ SCH (08:52)
[2020-05-01] MEDS ORDERED: Metoprolol XL (24 HR) Succ 50 MG TAB.ER.24H PO SCH (09:00)
[2020-05-01] MEDS: Ondansetron 4 MG/2 ML VIAL IVP PRN (10:58)
[2020-05-02] MEDS ORDERED: Ergocalciferol (VIT D2) 50,000 UNIT (1.25MG) CAP PO SCH (09:00)
== END 2020-05-01 11:16 | disposition home or self-care (01) ==
LOC: 2ANU 12:36 → EMEROOARM 12:36 → 2NNU 15:49
PROVIDERS: ADMIT Internal Medicine; ATTEND Internal Medicine

== ENCOUNTER 2020-06-06 06:26 | Inpatient (IN) ==
[2020-06-06 07:47] LABS: Basophils % 0.6 %; Eosinophils # 0.3 K/mcL (0.0-0.6); Eosinophils % 3.9 %; Hematocrit 32.4 % (37.5-50.1); Hemoglobin 10.7 g/dL (12.9-16.9); Immature Granulocytes % 0.3 % (0-4); Lymphocytes # 1.1 K/mcL (0.6-4.6); Lymphocytes % 14.5 %; Mean Corpuscular Hemoglobin 32.4 pg (28.0-33.3); Mean Corpuscular Volume 98.2 fL (83.0-100.0); Mean Platelet Volume 8.6 fL (9.4-12.4); Monocytes # 0.6 K/mcL (0.0-1.3); Monocytes % 8.9 %; Neutrophils # 5.2 K/mcL (1.6-8.9); Platelet Count 229 K/mcL (140-400); Red Cell Distribution Width 13.6 % (11.5-14.5); Segmented Neutrophils % 71.8 %; White Blood Count 7.2 K/mcL (4.3-11.1)
[2020-06-06 07:49] LABS: INR 1.1; Prothrombin Time 12.5 Seconds (9.4-12.1)
[2020-06-06 08:06] LABS: Albumin 3.8 g/dL (3.5-5.7); Albumin/Globulin Ratio 1.1 (1.1-2.2); Bilirubin,Total 0.3 mg/dL (0.3-1.0); Calcium 8.2 mg/dL (8.6-10.3); Globulin 3.5 g/dL (2.4-3.5); Total Protein 7.3 g/dL (6.4-8.9)
[2020-06-06 08:09] LABS: Troponin I 0.07 ng/mL (< 0.04)
[2020-06-06] MEDS ORDERED: 0.9 % Sodium Chloride 250 ML IVC PRN (08:48)
[2020-06-06] MEDS ORDERED: 0.9 % Sodium Chloride 1,000 ML PRIME SCH (09:00)
[2020-06-06] MEDS ORDERED: Ondansetron ODT 4 MG TAB.RAPDIS SL PRN (09:24)
[2020-06-06] MEDS ORDERED: Acetaminophen 325 MG TABLET PO PRN (09:24)
[2020-06-06] MEDS ORDERED: Naloxone 0.4 MG/ML INJ IVP PRN (09:24)
[2020-06-06 10:14] LABS: Hepatitis B Surface Antibody < 3.10 mIU/mL
[2020-06-06 10:26] LABS: Hepatitis B Surface Antigen Nonreactive (Nonreactive)
[2020-06-06] MEDS ORDERED: D5% in Water 1,000 ML IVC PRN (10:56)
[2020-06-06] MEDS ORDERED: Dextrose Gel 15 GM/37.5 ML TUBE PO PRN ×2 (10:56)
[2020-06-06] MEDS ORDERED: *HR* Dextrose 50 % in Water (Vial) 50 ML VIAL IVP PRN (10:56)
[2020-06-06] MEDS: Aspirin Enteric Coated 81 MG Tablet PO SCH (15:41)
[2020-06-06] MEDS: Metoprolol XL (24 HR) Succ 50 MG TAB.ER.24H PO SCH (15:41)
[2020-06-06] MEDS: amLODIPine 5 MG TABLET PO SCH (15:41)
[2020-06-06] MEDS: Insulin LISPRO 300 UNITS/3 ML VIAL SUBQ SCH ×3 (15:43→21:00)
[2020-06-06] MEDS ORDERED: Nitroglycerin 0.4 MG TAB.SUBL SL PRN (17:28)
[2020-06-06] MEDS ORDERED: Ergocalciferol (VIT D2) 50,000 UNIT (1.25MG) CAP PO SCH (17:30)
[2020-06-06] MEDS: Ranolazine 500 MG TAB.ER.12H PO SCH (20:56)
[2020-06-06] MEDS: Calcium Acetate 667 MG CAPSULE PO SCH (20:58)
[2020-06-07 06:37] LABS: Calcium 8.7 mg/dL (8.6-10.3); Magnesium 1.9 mg/dL (1.6-2.6); Phosphorous 6.7 mg/dL (2.7-4.5); Potassium 4.4 mEq/L (3.5-5.1)
[2020-06-07 06:38] LABS: Hematocrit 24.5 % (37.5-50.1); Mean Corpuscular HGB Conc 31.8 g/dL (31.6-35.5); Mean Corpuscular Hemoglobin 32.2 pg (28.0-33.3); Mean Corpuscular Volume 101.2 fL (83.0-100.0); Mean Platelet Volume 8.9 fL (9.4-12.4); Platelet Count 153 K/mcL (140-400); Red Blood Count 2.42 M/mcL (4.19-5.50); Red Cell Distribution Width 13.5 % (11.5-14.5); White Blood Count 4.7 K/mcL (4.3-11.1)
[2020-06-07 06:44] LABS: Hemoglobin 7.8 g/dL (12.9-16.9)
[2020-06-07] MEDS: Calcium Acetate 667 MG CAPSULE PO SCH ×3 (07:58→21:55)
[2020-06-07] MEDS: Ranolazine 500 MG TAB.ER.12H PO SCH ×2 (07:58→21:55)
[2020-06-07] MEDS: amLODIPine 5 MG TABLET PO SCH (07:59)
[2020-06-07] MEDS: Metoprolol XL (24 HR) Succ 50 MG TAB.ER.24H PO SCH (07:59)
[2020-06-07] MEDS: Aspirin Enteric Coated 81 MG Tablet PO SCH (07:59)
[2020-06-07] MEDS: Insulin LISPRO 300 UNITS/3 ML VIAL SUBQ SCH ×4 (07:59→21:01)
[2020-06-07] MEDS ORDERED: Isosorbide MONOnitrate (24 HR) 60 MG TAB.ER.24H PO SCH (09:00)
[2020-06-07] MEDS ORDERED: Isosorbide MONOnitrate (24 HR) 30 MG TAB.ER.24H PO SCH (09:00)
[2020-06-07] MEDS ORDERED: 0.9 % Sodium Chloride 500 ML IVC ONE (10:18)
[2020-06-07 11:24] LABS: Hematocrit 33.3 % (37.5-50.1); Hemoglobin 10.8 g/dL (12.9-16.9)
[2020-06-07] MEDS ORDERED: Perflutren Lipid Microsphere 1.3 ML in 0.9 % Sodium Chloride 8.7 ML IVP PRN (11:56)
[2020-06-08 03:11] LABS: Calcium 7.6 mg/dL (8.6-10.3)
[2020-06-08 03:21] LABS: Hematocrit 30.6 % (37.5-50.1); Hemoglobin 9.9 g/dL (12.9-16.9); Mean Corpuscular HGB Conc 32.4 g/dL (31.6-35.5); Mean Corpuscular Hemoglobin 31.9 pg (28.0-33.3); Mean Corpuscular Volume 98.7 fL (83.0-100.0); Mean Platelet Volume 9.1 fL (9.4-12.4); Platelet Count 196 K/mcL (140-400); Red Cell Distribution Width 13.4 % (11.5-14.5)
[2020-06-08 03:26] LABS: White Blood Count 7.2 K/mcL (4.3-11.1)
[2020-06-08] MEDS ORDERED: 0.9 % Sodium Chloride 250 ML IVC PRN (07:20)
[2020-06-08] MEDS: Calcium Acetate 667 MG CAPSULE PO SCH ×3 (09:10→21:32)
[2020-06-08] MEDS: Aspirin Enteric Coated 81 MG Tablet PO SCH (09:10)
[2020-06-08] MEDS: Metoprolol XL (24 HR) Succ 50 MG TAB.ER.24H PO SCH (09:11)
[2020-06-08] MEDS: Ranolazine 500 MG TAB.ER.12H PO SCH ×2 (09:11→21:28)
[2020-06-08] MEDS: Insulin LISPRO 300 UNITS/3 ML VIAL SUBQ SCH ×4 (09:11→21:17)
[2020-06-09 03:56] LABS: Hematocrit 34.4 % (37.5-50.1); Hemoglobin 11.3 g/dL (12.9-16.9); Mean Corpuscular HGB Conc 32.8 g/dL (31.6-35.5); Mean Corpuscular Hemoglobin 32.6 pg (28.0-33.3); Mean Corpuscular Volume 99.1 fL (83.0-100.0); Platelet Count 200 K/mcL (140-400); Red Blood Count 3.47 M/mcL (4.19-5.50); Red Cell Distribution Width 13.3 % (11.5-14.5); White Blood Count 6.6 K/mcL (4.3-11.1)
[2020-06-09 04:10] LABS: Calcium 8.5 mg/dL (8.6-10.3); Potassium 4.9 mEq/L (3.5-5.1)
[2020-06-09] MEDS: Metoprolol XL (24 HR) Succ 50 MG TAB.ER.24H PO SCH ×2 (08:12→09:21)
[2020-06-09] MEDS: Ranolazine 500 MG TAB.ER.12H PO SCH ×3 (08:13→20:48)
[2020-06-09] MEDS: Aspirin Enteric Coated 81 MG Tablet PO SCH ×2 (08:13→09:22)
[2020-06-09] MEDS: Calcium Acetate 667 MG CAPSULE PO SCH ×3 (08:13→19:59)
[2020-06-09] MEDS: Insulin LISPRO 300 UNITS/3 ML VIAL SUBQ SCH ×4 (08:13→19:49)
[2020-06-10 02:44] LABS: Hematocrit 33.6 % (37.5-50.1); Mean Corpuscular HGB Conc 32.7 g/dL (31.6-35.5); Mean Corpuscular Hemoglobin 32.4 pg (28.0-33.3); Mean Corpuscular Volume 98.8 fL (83.0-100.0); Mean Platelet Volume 9.4 fL (9.4-12.4); Platelet Count 217 K/mcL (140-400); Red Cell Distribution Width 13.5 % (11.5-14.5); White Blood Count 7.7 K/mcL (4.3-11.1)
[2020-06-10 03:05] LABS: Calcium 8.6 mg/dL (8.6-10.3); Potassium 6.2 mEq/L (3.5-5.1)
[2020-06-10] MEDS: Metoprolol XL (24 HR) Succ 50 MG TAB.ER.24H PO SCH (09:06)
[2020-06-10] MEDS: SODIUM ZIRCONIUM CYCLOSILICATE 5 GM POWD.PACK PO SCH (09:06)
[2020-06-10] MEDS: Aspirin Enteric Coated 81 MG Tablet PO SCH (09:06)
[2020-06-10] MEDS: Ranolazine 500 MG TAB.ER.12H PO SCH ×2 (09:07→21:07)
[2020-06-10] MEDS: Insulin LISPRO 300 UNITS/3 ML VIAL SUBQ SCH ×4 (09:07→21:06)
[2020-06-10] MEDS: Calcium Acetate 667 MG CAPSULE PO SCH ×3 (09:17→21:10)
[2020-06-11 03:21] LABS: Basophils % 0.6 %; Eosinophils # 0.3 K/mcL (0.0-0.6); Eosinophils % 3.6 %; Hematocrit 32.5 % (37.5-50.1); Immature Granulocytes % 0.3 % (0-4); Lymphocytes # 1.3 K/mcL (0.6-4.6); Lymphocytes % 18.6 %; Mean Corpuscular HGB Conc 33.8 g/dL (31.6-35.5); Mean Corpuscular Hemoglobin 32.9 pg (28.0-33.3); Mean Corpuscular Volume 97.3 fL (83.0-100.0); Mean Platelet Volume 9.2 fL (9.4-12.4); Monocytes # 0.7 K/mcL (0.0-1.3); Monocytes % 9.4 %; Neutrophils # 4.8 K/mcL (1.6-8.9); Platelet Count 206 K/mcL (140-400); Red Blood Count 3.34 M/mcL (4.19-5.50); Red Cell Distribution Width 13.1 % (11.5-14.5); Segmented Neutrophils % 67.5 %; White Blood Count 7.2 K/mcL (4.3-11.1)
[2020-06-11 03:43] LABS: Calcium 8.6 mg/dL (8.6-10.3); Potassium 6.6 mEq/L (3.5-5.1)
[2020-06-11] MEDS ORDERED: Calcium Gluconate 1gm/50mL 1 GM/50 ML BAG IVPB ONE (04:00)
[2020-06-11] MEDS ORDERED: 0.9 % Sodium Chloride 250 ML IVC PRN (07:01)
[2020-06-11] MEDS ORDERED: 0.9 % Sodium Chloride 1,000 ML PRIME SCH (07:15)
[2020-06-11] MEDS: Insulin LISPRO 300 UNITS/3 ML VIAL SUBQ SCH ×4 (07:22→20:33)
[2020-06-11] MEDS: Ranolazine 500 MG TAB.ER.12H PO SCH ×2 (07:35→20:33)
[2020-06-11] MEDS: Calcium Acetate 667 MG CAPSULE PO SCH ×3 (07:35→15:15)
[2020-06-11] MEDS: SODIUM ZIRCONIUM CYCLOSILICATE 5 GM POWD.PACK PO SCH (07:35)
[2020-06-11] MEDS: Aspirin Enteric Coated 81 MG Tablet PO SCH (07:35)
[2020-06-11] MEDS: Metoprolol XL (24 HR) Succ 50 MG TAB.ER.24H PO SCH (14:07)
[2020-06-11] MEDS: *HR* Heparin 5,000 UNIT/ML VIAL SQ SCH ×2 (15:15→20:33)
[2020-06-12] MEDS: *HR* Heparin 5,000 UNIT/ML VIAL SQ SCH (05:19)
[2020-06-12] MEDS: Aspirin Enteric Coated 81 MG Tablet PO SCH (07:26)
[2020-06-12] MEDS: Metoprolol XL (24 HR) Succ 50 MG TAB.ER.24H PO SCH (07:26)
[2020-06-12] MEDS: SODIUM ZIRCONIUM CYCLOSILICATE 5 GM POWD.PACK PO SCH (07:30)
[2020-06-12] MEDS: Insulin LISPRO 300 UNITS/3 ML VIAL SUBQ SCH ×2 (07:31→11:58)
[2020-06-12] MEDS: Calcium Acetate 667 MG CAPSULE PO SCH ×2 (07:31→12:02)
[2020-06-12] MEDS: Ranolazine 500 MG TAB.ER.12H PO SCH (08:35)
[2020-06-12 10:48] VITALS: BP 127/72
[2020-06-12 11:57] LABS: Potassium 4.7 mEq/L (3.5-5.1)
== END 2020-06-12 15:02 | disposition home health service (06) | DRG 280 ==
LOC: EMEROOARM 06:26 → 2ANU 06:26 → SUATTDRO 09:01 → 2ANU 10:23 → SUATTDRO 06-07 14:26 → 2ANU 06-08 12:20
PROVIDERS: ADMIT Internal Medicine; ATTEND Internal Medicine

== ENCOUNTER 2020-06-17 23:08 | Observation (INO) ==
[2020-06-17] MEDS ORDERED: 0.9 % Sodium Chloride 1,000 ML IVC ONE (23:45)
[2020-06-18 00:26] LABS: Basophils % 0.6 %; Eosinophils # 0.2 K/mcL (0.0-0.6); Eosinophils % 2.6 %; Hematocrit 32.6 % (37.5-50.1); Hemoglobin 10.9 g/dL (12.9-16.9); Immature Granulocytes % 0.3 % (0-4); Lymphocytes # 0.7 K/mcL (0.6-4.6); Lymphocytes % 10.6 %; Mean Corpuscular HGB Conc 33.4 g/dL (31.6-35.5); Mean Corpuscular Hemoglobin 32.2 pg (28.0-33.3); Mean Corpuscular Volume 96.2 fL (83.0-100.0); Monocytes # 0.8 K/mcL (0.0-1.3); Monocytes % 11.9 %; Neutrophils # 5.1 K/mcL (1.6-8.9); Platelet Count 236 K/mcL (140-400); Red Blood Count 3.39 M/mcL (4.19-5.50); Red Cell Distribution Width 13.1 % (11.5-14.5); White Blood Count 6.8 K/mcL (4.3-11.1)
[2020-06-18] MEDS ORDERED: Ondansetron 4 MG/2 ML VIAL IVP ONE (00:34)
[2020-06-18] MEDS ORDERED: diazePAM 10 MG/2 ML SYRINGE IVP ONE (00:34)
[2020-06-18 00:45] LABS: Albumin 3.6 g/dL (3.5-5.7); Albumin/Globulin Ratio 1.1 (1.1-2.2); Bilirubin,Total 0.4 mg/dL (0.3-1.0); Calcium 8.5 mg/dL (8.6-10.3); Globulin 3.3 g/dL (2.4-3.5); Potassium 4.7 mEq/L (3.5-5.1); Total Protein 6.9 g/dL (6.4-8.9); Troponin I 0.1 ng/mL (< 0.04)
[2020-06-18] MEDS ORDERED: diazePAM 5 MG TABLET PO ONE (00:50)
[2020-06-18] MEDS ORDERED: Acetaminophen 325 MG TABLET PO PRN (02:47)
[2020-06-18] MEDS ORDERED: Melatonin 3 MG TABLET PO PRN (02:47)
[2020-06-18] MEDS ORDERED: Naloxone 0.4 MG/ML INJ IVP PRN (02:47)
[2020-06-18] MEDS ORDERED: Dextrose Gel 15 GM/37.5 ML TUBE PO PRN ×2 (02:50)
[2020-06-18] MEDS ORDERED: *HR* Dextrose 50 % in Water (Vial) 50 ML VIAL IVP PRN (02:50)
[2020-06-18] MEDS ORDERED: D5% in Water 1,000 ML IVC PRN (02:50)
[2020-06-18 05:18] LABS: Bilirubin,Urine Negative (Negative); Blood,Urine Negative (Negative); Clarity,Urine Clear (Clear); Color,Urine Colorless (Yellow); Glucose,Urine (UA) 500 mg/dL (Normal); Hyaline Casts,Urine Few per lpf (None Seen); Ketones,Urine Negative (Negative); Leukocyte Esterase,Urine Negative (Negative); Mucus,Urine Few per lpf (None-Few); Nitrite,Urine Negative (Negative); Protein,Urine >=600 mg/dL (Neg-Trace); RBC,Urine 0-3 per hpf (0-3); Specific Gravity,Urine 1.013 (1.010-1.025); Urobilinogen,Urine Normal (Normal); WBC,Urine 0-3 per hpf (0-3)
[2020-06-18] MEDS: *HR* Heparin 5,000 UNIT/ML VIAL SQ SCH ×2 (05:41→18:00)
[2020-06-18] MEDS: Insulin LISPRO 300 UNITS/3 ML VIAL SUBQ SCH ×3 (05:42→18:04)
[2020-06-18] MEDS ORDERED: 0.9 % Sodium Chloride 250 ML IVC PRN (07:55)
[2020-06-18] MEDS ORDERED: 0.9 % Sodium Chloride 1,000 ML PRIME SCH (08:00)
[2020-06-18 12:52] LABS: Troponin I 0.09 ng/mL (< 0.04)
[2020-06-18 14:25] LABS: Basophils % 0.6 %; Eosinophils # 0.2 K/mcL (0.0-0.6); Eosinophils % 4.4 %; Hematocrit 32.9 % (37.5-50.1); Hemoglobin 10.7 g/dL (12.9-16.9); Immature Granulocytes % 0.2 % (0-4); Lymphocytes # 0.6 K/mcL (0.6-4.6); Mean Corpuscular HGB Conc 32.5 g/dL (31.6-35.5); Mean Corpuscular Hemoglobin 31.3 pg (28.0-33.3); Mean Corpuscular Volume 96.2 fL (83.0-100.0); Mean Platelet Volume 9.2 fL (9.4-12.4); Monocytes # 0.6 K/mcL (0.0-1.3); Neutrophils # 3.3 K/mcL (1.6-8.9); Platelet Count 201 K/mcL (140-400); Red Blood Count 3.42 M/mcL (4.19-5.50); Red Cell Distribution Width 12.8 % (11.5-14.5); Segmented Neutrophils % 68.8 %; White Blood Count 4.8 K/mcL (4.3-11.1)
[2020-06-18 14:31] LABS: Albumin 3.6 g/dL (3.5-5.7); Albumin/Globulin Ratio 1.1 (1.1-2.2); Bilirubin,Total 0.4 mg/dL (0.3-1.0); Calcium 8.8 mg/dL (8.6-10.3); Globulin 3.4 g/dL (2.4-3.5); Magnesium 1.7 mg/dL (1.6-2.6); Phosphorous 1.9 mg/dL (2.7-4.5); Potassium 3.3 mEq/L (3.5-5.1)
[2020-06-18] MEDS ORDERED: Nitroglycerin 0.4 MG TAB.SUBL SL PRN (16:38)
[2020-06-18] MEDS: Ranolazine 500 MG TAB.ER.12H PO SCH (20:09)
[2020-06-18] MEDS: Ondansetron 4 MG/2 ML VIAL IVP PRN ×2 (20:09→20:24)
[2020-06-19] MEDS: *HR* Heparin 5,000 UNIT/ML VIAL SQ SCH (05:34)
[2020-06-19] MEDS: Insulin LISPRO 300 UNITS/3 ML VIAL SUBQ SCH ×3 (05:38→11:38)
[2020-06-19] MEDS: Calcium Acetate 667 MG CAPSULE PO SCH ×2 (08:13→11:39)
[2020-06-19] MEDS: Ranolazine 500 MG TAB.ER.12H PO SCH (08:14)
[2020-06-19] MEDS ORDERED: Metoprolol XL (24 HR) Succ 50 MG TAB.ER.24H PO SCH (09:00)
[2020-06-19] MEDS ORDERED: Aspirin Enteric Coated 81 MG Tablet PO SCH (09:00)
[2020-06-19] MEDS ORDERED: Cholecalciferol (D-3) 1,000 UNIT (25MCG) TABLET PO SCH (09:00)
[2020-06-19 10:50] VITALS: BP 148/86
== END 2020-06-19 11:59 | disposition home health service (06) ==
LOC: EMEROOARM 23:08 → 2ANU 23:08 → SUATTDRO 06-18 01:50 → 2ANU 06-18 02:31
PROVIDERS: ADMIT Internal Medicine; ATTEND Internal Medicine

== ENCOUNTER 2020-07-02 00:23 | Observation (INO) ==
[2020-07-02] MEDS ORDERED: Aspirin 81 MG TAB.CHEW PO ONE (00:25)
[2020-07-02] MEDS ORDERED: Ondansetron 4 MG/2 ML VIAL IVP ONE (00:44)
[2020-07-02] MEDS ORDERED: Morphine Sulfate 2 MG/ML SYRINGE IVP ONE (00:44)
[2020-07-02 02:00] LABS: Basophils % 0.4 %; Eosinophils # 0.3 K/mcL (0.0-0.6); Eosinophils % 4.1 %; Hematocrit 29.3 % (37.5-50.1); Hemoglobin 9.9 g/dL (12.9-16.9); Immature Granulocytes % 0.4 % (0-4); Lymphocytes # 1.2 K/mcL (0.6-4.6); Lymphocytes % 15.3 %; Mean Corpuscular HGB Conc 33.8 g/dL (31.6-35.5); Mean Corpuscular Hemoglobin 31.8 pg (28.0-33.3); Mean Corpuscular Volume 94.2 fL (83.0-100.0); Mean Platelet Volume 8.5 fL (9.4-12.4); Monocytes # 0.6 K/mcL (0.0-1.3); Monocytes % 7.2 %; Neutrophils # 5.9 K/mcL (1.6-8.9); Platelet Count 233 K/mcL (140-400); Red Blood Count 3.11 M/mcL (4.19-5.50); Red Cell Distribution Width 13.2 % (11.5-14.5); Segmented Neutrophils % 72.6 %; White Blood Count 8.1 K/mcL (4.3-11.1)
[2020-07-02 02:08] LABS: INR 1.1; Prothrombin Time 12.4 Seconds (9.4-12.1)
[2020-07-02 02:10] LABS: Activated Partial Thrombo Time 30.1 Seconds (26.0-36.0)
[2020-07-02 02:19] LABS: Influenza A PCR Negative (Negative); Influenza B PCR Negative (Negative); Resp. Syncytial Virus PCR Negative (Negative); SARS-CoV-2 by PCR (In House) Negative (Negative)
[2020-07-02 02:26] LABS: Calcium 8.2 mg/dL (8.6-10.3); Potassium 4.8 mEq/L (3.5-5.1); Troponin I 0.06 ng/mL (< 0.04)
[2020-07-02] MEDS ORDERED: Ondansetron 4 MG/2 ML VIAL IVP PRN (07:00)
[2020-07-02] MEDS ORDERED: Acetaminophen 325 MG TABLET PO PRN (07:00)
[2020-07-02] MEDS ORDERED: Naloxone 0.4 MG/ML INJ IVP PRN (07:00)
[2020-07-02] MEDS ORDERED: Saline Nasal Spray 44 ML BOTTLE NS PRN (07:20)
[2020-07-02] MEDS ORDERED: Azithromycin 500 MG in D5% in Water 250 ML IVPB SCH (08:00)
[2020-07-02] MEDS ORDERED: *HR* Heparin 10,000 UNIT/10 ML VIAL IV PRN (08:13)
[2020-07-02] MEDS ORDERED: 0.9 % Sodium Chloride 250 ML IVC PRN (08:13)
[2020-07-02] MEDS ORDERED: 0.9 % Sodium Chloride 1,000 ML PRIME SCH (08:15)
[2020-07-02] MEDS ORDERED: Doxycycline 100 MG in 0.9 % Sodium Chloride Mini Bag 100 ML IVPB SCH (14:00)
[2020-07-02] MEDS: cefTRIAXone 1,000 MG in Water for inj. (sterile) 10 ML IVP SCH (16:13)
[2020-07-02] MEDS: Doxycycline 100 MG in 0.9 % Sodium Chloride Mini Bag 100 ML IVPB SCH ×2 (16:13→21:03)
[2020-07-02] MEDS ORDERED: Melatonin 3 MG TABLET PO PRN (21:00)
[2020-07-03 03:15] LABS: Hematocrit 30.2 % (37.5-50.1); Mean Corpuscular HGB Conc 33.1 g/dL (31.6-35.5); Mean Corpuscular Hemoglobin 32.3 pg (28.0-33.3); Mean Corpuscular Volume 97.4 fL (83.0-100.0); Mean Platelet Volume 8.9 fL (9.4-12.4); Platelet Count 209 K/mcL (140-400); Red Cell Distribution Width 13.2 % (11.5-14.5); White Blood Count 5.2 K/mcL (4.3-11.1)
[2020-07-03 03:27] LABS: Calcium 8.1 mg/dL (8.6-10.3); Potassium 4.8 mEq/L (3.5-5.1)
[2020-07-03] MEDS: cefTRIAXone 1,000 MG in Water for inj. (sterile) 10 ML IVP SCH (08:05)
[2020-07-03] MEDS: Doxycycline 100 MG in 0.9 % Sodium Chloride Mini Bag 100 ML IVPB SCH (08:06)
[2020-07-03] MEDS ORDERED: NON-FORMULARY MEDICATION 1 EACH EACH (Pantoprazole Sodium [Protonix] 40 MG Tablet.Dr) PO SCH (09:00)
[2020-07-03] MEDS ORDERED: NIFEdipine XL (24 HR) 30 MG TAB.ER.24 PO SCH (09:00)
[2020-07-03 11:37] VITALS: BP 146/78
== END 2020-07-03 13:49 | disposition home health service (06) ==
LOC: 3BNU 00:23 → EMEROOARM 00:23 → SUATTDRO 03:10 → 3BNU 03:52
PROVIDERS: ADMIT Family Medicine; ATTEND Internal Medicine

== ENCOUNTER 2020-08-15 06:16 | Inpatient (IN) ==
[2020-08-15] MEDS ORDERED: Isovue-370 500 ML BOTTLE IVP ONE (06:22)
[2020-08-15] MEDS ORDERED: Ondansetron 4 MG/2 ML VIAL IVP ONE (06:27)
[2020-08-15] MEDS ORDERED: *HR* Labetalol 20 MG/4 ML SYRINGE IVP ONE (06:35)
[2020-08-15 06:42] LABS: Basophils % 0.4 %; Eosinophils # 0.2 K/mcL (0.0-0.6); Eosinophils % 2.4 %; Hematocrit 27.4 % (37.5-50.1); Hemoglobin 9.3 g/dL (12.9-16.9); Immature Granulocytes % 0.3 % (0-4); Lymphocytes # 0.7 K/mcL (0.6-4.6); Lymphocytes % 8.9 %; Mean Corpuscular HGB Conc 33.9 g/dL (31.6-35.5); Mean Corpuscular Hemoglobin 32.6 pg (28.0-33.3); Mean Corpuscular Volume 96.1 fL (83.0-100.0); Mean Platelet Volume 8.4 fL (9.4-12.4); Monocytes # 0.7 K/mcL (0.0-1.3); Monocytes % 8.5 %; Neutrophils # 6.2 K/mcL (1.6-8.9); Platelet Count 241 K/mcL (140-400); Red Blood Count 2.85 M/mcL (4.19-5.50); Red Cell Distribution Width 14.2 % (11.5-14.5); Segmented Neutrophils % 79.5 %; White Blood Count 7.8 K/mcL (4.3-11.1)
[2020-08-15 06:49] LABS: INR 1.2; Prothrombin Time 14.2 Seconds (9.4-12.1)
[2020-08-15 06:52] LABS: Activated Partial Thrombo Time 34.3 Seconds (26.0-36.0)
[2020-08-15 07:10] LABS: Albumin 3.7 g/dL (3.5-5.7); Albumin/Globulin Ratio 1.1 (1.1-2.2); Bilirubin,Indirect 0.4 mg/dL (0.0-1.0); Bilirubin,Total 0.4 mg/dL (0.3-1.0); Calcium 7.8 mg/dL (8.6-10.3); Globulin 3.5 g/dL (2.4-3.5); Potassium 3.7 mEq/L (3.5-5.1); Total Protein 7.2 g/dL (6.4-8.9); Troponin I 0.07 ng/mL (< 0.04)
[2020-08-15] MEDS ORDERED: levoFLOXacin 750 MG/150 ML 750 MG/150 ML BAG IVPB ONE (07:24)
[2020-08-15] MEDS ORDERED: Naloxone 0.4 MG/ML INJ IVP PRN (07:35)
[2020-08-15] MEDS ORDERED: 0.9 % Sodium Chloride 250 ML IVC PRN (09:41)
[2020-08-15] MEDS ORDERED: 0.9 % Sodium Chloride 1,000 ML PRIME SCH (09:45)
[2020-08-15] MEDS ORDERED: Perflutren Lipid Microsphere 1.3 ML in 0.9 % Sodium Chloride 8.7 ML IVP PRN (10:56)
[2020-08-15] MEDS ORDERED: Ergocalciferol (VIT D2) 50,000 UNIT (1.25MG) CAP PO SCH (11:00)
[2020-08-15 11:59] LABS: Adenovirus Not Detected (Not Detect); Bordetella Pertussis Not Detected (Not Detect); Chlamydophila pneumoniae Not Detected (Not Detect); Coronavirus 229E Not Detected (Not Detect); Coronavirus HKU1 Not Detected (Not Detect); Coronavirus NL63 Not Detected (Not Detect); Coronavirus OC43 Not Detected (Not Detect); Human Metapneumovirus Not Detected (Not Detect); Human Rhinovirus/Enterovirus Not Detected (Not Detect); Influenza A Subtype 2009 H1 Not Detected (Not Detect); Influenza B Not Detected (Not Detect); Mycoplasma pneumoniae Not Detected (Not Detect); Parainfluenza Virus 1 Not Detected (Not Detect); Parainfluenza Virus 2 Not Detected (Not Detect); Parainfluenza Virus 3 Not Detected (Not Detect); Parainfluenza Virus 4 Not Detected (Not Detect); Respiratory Syncytial Virus Not Detected (Not Detect); SARS-CoV-2 Not Detected (Not Detect)
[2020-08-15 13:43] LABS: Chol/HDL Ratio 3.4 (0-4.9)
[2020-08-15 13:57] LABS: Hepatitis B Surface Antibody < 3.10 mIU/mL
[2020-08-15 13:58] LABS: Estimated Average Glucose 151 mg/dl; Hemoglobin A1C 6.9 %
[2020-08-15 14:07] LABS: Hepatitis B Surface Antigen Nonreactive (Nonreactive)
[2020-08-15] MEDS: Acetaminophen 325 MG TABLET PO PRN (14:28)
[2020-08-15] MEDS ORDERED: Dextrose Gel 15 GM/37.5 ML TUBE PO PRN ×2 (14:32)
[2020-08-15] MEDS ORDERED: D5% in Water 1,000 ML IVC PRN (14:32)
[2020-08-15] MEDS ORDERED: *HR* Dextrose 50 % in Water (Vial) 50 ML VIAL IVP PRN (14:32)
[2020-08-15] MEDS: Doxycycline 100 MG in 0.9 % Sodium Chloride Mini Bag 100 ML IVPB SCH (16:58)
[2020-08-15] MEDS: Apixaban 5 MG TABLET PO SCH (19:47)
[2020-08-16 02:44] LABS: Calcium 8.3 mg/dL (8.6-10.3); Potassium 4.1 mEq/L (3.5-5.1)
[2020-08-16] MEDS: Acetaminophen 325 MG TABLET PO PRN ×3 (03:22→21:12)
[2020-08-16] MEDS: Doxycycline 100 MG in 0.9 % Sodium Chloride Mini Bag 100 ML IVPB SCH ×2 (05:11→16:12)
[2020-08-16] MEDS: NIFEdipine XL (24 HR) 30 MG TAB.ER.24 PO SCH (07:50)
[2020-08-16] MEDS: Apixaban 5 MG TABLET PO SCH ×2 (07:50→21:12)
[2020-08-16] MEDS: cefTRIAXone 1,000 MG in Water for inj. (sterile) 10 ML IVP SCH (07:50)
[2020-08-16] MEDS: Aspirin Enteric Coated 81 MG Tablet PO SCH (07:50)
[2020-08-16] MEDS: Ondansetron 4 MG/2 ML VIAL IVP PRN (11:18)
[2020-08-16] MEDS ORDERED: *HR* Labetalol 20 MG/4 ML SYRINGE IVP ONE (11:28)
[2020-08-16 12:17] LABS: Basophils % 0.4 %; Eosinophils # 0.2 K/mcL (0.0-0.6); Eosinophils % 3.9 %; Hematocrit 28.4 % (37.5-50.1); Hemoglobin 9.5 g/dL (12.9-16.9); Immature Granulocytes % 0.4 % (0-4); Lymphocytes % 17.3 %; Mean Corpuscular HGB Conc 33.5 g/dL (31.6-35.5); Mean Corpuscular Hemoglobin 32.5 pg (28.0-33.3); Mean Corpuscular Volume 97.3 fL (83.0-100.0); Mean Platelet Volume 8.7 fL (9.4-12.4); Monocytes # 0.6 K/mcL (0.0-1.3); Monocytes % 10.7 %; Neutrophils # 3.8 K/mcL (1.6-8.9); Platelet Count 272 K/mcL (140-400); Red Blood Count 2.92 M/mcL (4.19-5.50); Red Cell Distribution Width 14.2 % (11.5-14.5); Segmented Neutrophils % 67.3 %; White Blood Count 5.6 K/mcL (4.3-11.1)
[2020-08-16 12:42] LABS: Calcium 8.6 mg/dL (8.6-10.3); Magnesium 1.8 mg/dL (1.6-2.6); Potassium 4.4 mEq/L (3.5-5.1); Troponin I 0.08 ng/mL (< 0.04)
[2020-08-16] MEDS ORDERED: D5% in Water 1,000 ML IVC PRN (12:49)
[2020-08-16] MEDS ORDERED: Dextrose Gel 15 GM/37.5 ML TUBE PO PRN ×2 (12:49)
[2020-08-16] MEDS ORDERED: *HR* Dextrose 50 % in Water (Vial) 50 ML VIAL IVP PRN (12:49)
[2020-08-16 12:58] LABS: Prolactin 15.98 ng/mL (3.00-14.70)
[2020-08-16] MEDS: Insulin LISPRO 300 UNITS/3 ML VIAL SUBQ SCH ×2 (16:12→21:15)
[2020-08-17] MEDS: Doxycycline 100 MG in 0.9 % Sodium Chloride Mini Bag 100 ML IVPB SCH ×2 (05:42→16:31)
[2020-08-17 07:08] LABS: Basophils % 0.3 %; Eosinophils # 0.3 K/mcL (0.0-0.6); Eosinophils % 5.2 %; Hematocrit 27.9 % (37.5-50.1); Hemoglobin 9.1 g/dL (12.9-16.9); Immature Granulocytes % 0.2 % (0-4); Lymphocytes # 1.3 K/mcL (0.6-4.6); Lymphocytes % 20.1 %; Mean Corpuscular HGB Conc 32.6 g/dL (31.6-35.5); Mean Corpuscular Hemoglobin 32.3 pg (28.0-33.3); Mean Corpuscular Volume 98.9 fL (83.0-100.0); Mean Platelet Volume 8.5 fL (9.4-12.4); Monocytes # 0.7 K/mcL (0.0-1.3); Monocytes % 10.5 %; Platelet Count 256 K/mcL (140-400); Red Blood Count 2.82 M/mcL (4.19-5.50); Red Cell Distribution Width 13.9 % (11.5-14.5); Segmented Neutrophils % 63.7 %; White Blood Count 6.2 K/mcL (4.3-11.1)
[2020-08-17] MEDS ORDERED: 0.9 % Sodium Chloride 250 ML IVC PRN (07:22)
[2020-08-17] MEDS ORDERED: 0.9 % Sodium Chloride 1,000 ML PRIME SCH (07:30)
[2020-08-17] MEDS: cefTRIAXone 1,000 MG in Water for inj. (sterile) 10 ML IVP SCH (07:47)
[2020-08-17] MEDS: Apixaban 5 MG TABLET PO SCH ×2 (07:47→20:05)
[2020-08-17] MEDS: NIFEdipine XL (24 HR) 30 MG TAB.ER.24 PO SCH (07:47)
[2020-08-17] MEDS: Aspirin Enteric Coated 81 MG Tablet PO SCH (07:47)
[2020-08-17] MEDS: Acetaminophen 325 MG TABLET PO PRN ×2 (07:47→20:06)
[2020-08-17] MEDS: Insulin LISPRO 300 UNITS/3 ML VIAL SUBQ SCH ×4 (07:48→21:51)
[2020-08-17 08:05] LABS: Calcium 8.2 mg/dL (8.6-10.3); Potassium 4.7 mEq/L (3.5-5.1)
[2020-08-17 08:06] LABS: Albumin 3.6 g/dL (3.5-5.7); Albumin/Globulin Ratio 1.1 (1.1-2.2); Bilirubin,Direct 0.1 mg/dL (0.0-0.2); Bilirubin,Indirect 0.3 mg/dL (0.0-1.0); Bilirubin,Total 0.4 mg/dL (0.3-1.0); Globulin 3.4 g/dL (2.4-3.5); Magnesium 1.9 mg/dL (1.6-2.6); Phosphorous 7.5 mg/dL (2.7-4.5)
[2020-08-17] MEDS: Calcium Acetate 667 MG CAPSULE PO SCH ×2 (11:14→16:31)
[2020-08-17] MEDS ORDERED: Ringers Solution, Lactated 1,000 ML ONE (13:06)
[2020-08-17] MEDS ORDERED: Ringers Solution, Lactated 1,000 ML IVC ONE (13:09)
[2020-08-17 13:19] LABS: ABG Base Excess 6 mEq/L (-2 to 3); ABG HCO3 29 mEq/L (21-27); ABG Oxygen Saturation 99 % (95-98); ABG PCO2 35 mmHg (35-45); ABG PH 7.53 pH Units (7.32-7.45); ABG PO2 124 mmHg (85-104); ABG TCO2 30 mEq/L (20-26); Blood Gas FiO2 2.5 (1-15=lpm or21-100=%)
[2020-08-18 04:26] LABS: Basophils % 0.8 %; Eosinophils # 0.3 K/mcL (0.0-0.6); Eosinophils % 5.6 %; Hemoglobin 8.7 g/dL (12.9-16.9); Immature Granulocytes % 0.2 % (0-4); Lymphocytes % 19.2 %; Mean Corpuscular HGB Conc 32.2 g/dL (31.6-35.5); Mean Corpuscular Hemoglobin 31.9 pg (28.0-33.3); Mean Corpuscular Volume 98.9 fL (83.0-100.0); Mean Platelet Volume 8.3 fL (9.4-12.4); Monocytes # 0.6 K/mcL (0.0-1.3); Monocytes % 11.7 %; Neutrophils # 3.3 K/mcL (1.6-8.9); Platelet Count 219 K/mcL (140-400); Red Blood Count 2.73 M/mcL (4.19-5.50); Red Cell Distribution Width 13.8 % (11.5-14.5); Segmented Neutrophils % 62.5 %; White Blood Count 5.2 K/mcL (4.3-11.1)
[2020-08-18 04:40] LABS: Calcium 8.4 mg/dL (8.6-10.3)
[2020-08-18] MEDS: Doxycycline 100 MG in 0.9 % Sodium Chloride Mini Bag 100 ML IVPB SCH ×2 (05:53→18:00)
[2020-08-18] MEDS: NIFEdipine XL (24 HR) 30 MG TAB.ER.24 PO SCH (08:44)
[2020-08-18] MEDS: Insulin LISPRO 300 UNITS/3 ML VIAL SUBQ SCH ×4 (08:45→22:17)
[2020-08-18] MEDS: Aspirin Enteric Coated 81 MG Tablet PO SCH (08:45)
[2020-08-18] MEDS: Apixaban 5 MG TABLET PO SCH ×2 (08:45→22:16)
[2020-08-18] MEDS: Calcium Acetate 667 MG CAPSULE PO SCH ×3 (08:45→17:59)
[2020-08-18] MEDS: cefTRIAXone 1,000 MG in Water for inj. (sterile) 10 ML IVP SCH (08:45)
[2020-08-19] MEDS: rOPINIRole 0.25 MG TABLET PO SCH ×2 (00:01→20:29)
[2020-08-19 02:31] LABS: Basophils % 0.6 %; Eosinophils # 0.3 K/mcL (0.0-0.6); Eosinophils % 3.8 %; Hematocrit 27.6 % (37.5-50.1); Hemoglobin 9.2 g/dL (12.9-16.9); Immature Granulocytes % 0.3 % (0-4); Lymphocytes # 1.4 K/mcL (0.6-4.6); Lymphocytes % 18.8 %; Mean Corpuscular HGB Conc 33.3 g/dL (31.6-35.5); Mean Corpuscular Hemoglobin 32.9 pg (28.0-33.3); Mean Corpuscular Volume 98.6 fL (83.0-100.0); Mean Platelet Volume 8.6 fL (9.4-12.4); Monocytes # 0.8 K/mcL (0.0-1.3); Monocytes % 10.4 %; Neutrophils # 4.8 K/mcL (1.6-8.9); Platelet Count 236 K/mcL (140-400); Red Cell Distribution Width 13.9 % (11.5-14.5); Segmented Neutrophils % 66.1 %; White Blood Count 7.2 K/mcL (4.3-11.1)
[2020-08-19 02:53] LABS: Calcium 8.8 mg/dL (8.6-10.3); Magnesium 1.8 mg/dL (1.6-2.6); Phosphorous 6.2 mg/dL (2.7-4.5)
[2020-08-19] MEDS: Acetaminophen 325 MG TABLET PO PRN ×3 (06:16→20:29)
[2020-08-19] MEDS: Doxycycline 100 MG in 0.9 % Sodium Chloride Mini Bag 100 ML IVPB SCH ×2 (06:20→16:56)
[2020-08-19] MEDS: Aspirin Enteric Coated 81 MG Tablet PO SCH (10:24)
[2020-08-19] MEDS: NIFEdipine XL (24 HR) 30 MG TAB.ER.24 PO SCH (10:24)
[2020-08-19] MEDS: Apixaban 5 MG TABLET PO SCH ×2 (10:24→20:29)
[2020-08-19] MEDS: cefTRIAXone 1,000 MG in Water for inj. (sterile) 10 ML IVP SCH (10:26)
[2020-08-19] MEDS: Insulin LISPRO 300 UNITS/3 ML VIAL SUBQ SCH ×4 (10:29→20:30)
[2020-08-19] MEDS: Calcium Acetate 667 MG CAPSULE PO SCH ×3 (10:29→16:56)
[2020-08-19] MEDS: Ondansetron 4 MG/2 ML VIAL IVP PRN (22:15)
[2020-08-20 02:44] LABS: Basophils % 0.6 %; Eosinophils # 0.3 K/mcL (0.0-0.6); Eosinophils % 4.2 %; Hematocrit 26.7 % (37.5-50.1); Hemoglobin 8.6 g/dL (12.9-16.9); Immature Granulocytes % 0.3 % (0-4); Lymphocytes # 1.1 K/mcL (0.6-4.6); Lymphocytes % 17.6 %; Mean Corpuscular HGB Conc 32.2 g/dL (31.6-35.5); Mean Corpuscular Hemoglobin 32.1 pg (28.0-33.3); Mean Corpuscular Volume 99.6 fL (83.0-100.0); Mean Platelet Volume 8.5 fL (9.4-12.4); Monocytes # 0.5 K/mcL (0.0-1.3); Monocytes % 8.3 %; Neutrophils # 4.4 K/mcL (1.6-8.9); Platelet Count 215 K/mcL (140-400); Red Blood Count 2.68 M/mcL (4.19-5.50); Red Cell Distribution Width 13.9 % (11.5-14.5); White Blood Count 6.4 K/mcL (4.3-11.1)
[2020-08-20 03:00] LABS: Calcium 8.5 mg/dL (8.6-10.3); Magnesium 1.8 mg/dL (1.6-2.6); Phosphorous 7.3 mg/dL (2.7-4.5); Potassium 5.6 mEq/L (3.5-5.1)
[2020-08-20] MEDS: Doxycycline 100 MG in 0.9 % Sodium Chloride Mini Bag 100 ML IVPB SCH (05:31)
[2020-08-20] MEDS ORDERED: 0.9 % Sodium Chloride 2,000 ML ONE (06:58)
[2020-08-20] MEDS ORDERED: 0.9 % Sodium Chloride 250 ML IVC PRN (07:11)
[2020-08-20] MEDS: Insulin LISPRO 300 UNITS/3 ML VIAL SUBQ SCH ×4 (08:34→21:19)
[2020-08-20] MEDS: Calcium Acetate 667 MG CAPSULE PO SCH ×3 (08:53→17:13)
[2020-08-20] MEDS: NIFEdipine XL (24 HR) 30 MG TAB.ER.24 PO SCH (10:08)
[2020-08-20] MEDS: Aspirin Enteric Coated 81 MG Tablet PO SCH (10:08)
[2020-08-20] MEDS: Apixaban 5 MG TABLET PO SCH ×2 (10:09→21:18)
[2020-08-20] MEDS: cefTRIAXone 1,000 MG in Water for inj. (sterile) 10 ML IVP SCH (10:10)
[2020-08-20 18:28] VITALS: BP 168/77
[2020-08-20] MEDS: rOPINIRole 0.25 MG TABLET PO SCH (21:18)
== END 2020-08-20 21:47 | disposition short-term general hospital (02) | DRG 67 ==
LOC: EMEROOARM 06:16 → 2ANU 06:16 → SUATTDRO 07:53 → 2ANU 09:25
PROVIDERS: ADMIT Student in an Organized Health Care Education/Training Program; ATTEND Pharmacist

== ENCOUNTER 2020-08-27 00:54 | Observation (INO) ==
[2020-08-27] MEDS ORDERED: Morphine Sulfate 2 MG/ML SYRINGE IVP STA (02:02)
[2020-08-27 02:11] LABS: Basophils % 0.4 %; Eosinophils # 0.2 K/mcL (0.0-0.6); Eosinophils % 2.3 %; Hematocrit 25.3 % (37.5-50.1); Hemoglobin 8.1 g/dL (12.9-16.9); Immature Granulocytes % 0.4 % (0-4); Lymphocytes # 0.6 K/mcL (0.6-4.6); Lymphocytes % 6.2 %; Mean Corpuscular Hemoglobin 32.1 pg (28.0-33.3); Mean Corpuscular Volume 100.4 fL (83.0-100.0); Mean Platelet Volume 8.7 fL (9.4-12.4); Monocytes # 0.5 K/mcL (0.0-1.3); Platelet Count 226 K/mcL (140-400); Red Blood Count 2.52 M/mcL (4.19-5.50); Red Cell Distribution Width 13.5 % (11.5-14.5); Segmented Neutrophils % 85.7 %
[2020-08-27 02:13] LABS: Neutrophils # 8.7 K/mcL (1.6-8.9); White Blood Count 10.2 K/mcL (4.3-11.1)
[2020-08-27 02:20] LABS: INR 1.3; Prothrombin Time 14.8 Seconds (9.4-12.1)
[2020-08-27 02:22] LABS: Activated Partial Thrombo Time 32.1 Seconds (26.0-36.0)
[2020-08-27 02:31] LABS: Calcium 8.6 mg/dL (8.6-10.3); Potassium 4.8 mEq/L (3.5-5.1)
[2020-08-27 02:34] LABS: Troponin I 0.08 ng/mL (< 0.04)
[2020-08-27] MEDS ORDERED: *HR* HYDROmorphone (PF) 1 MG/ML SYRINGE IVP STA (03:34)
[2020-08-27] MEDS ORDERED: Naloxone 0.4 MG/ML INJ IVP PRN (06:21)
[2020-08-27] MEDS ORDERED: Ondansetron 4 MG/2 ML VIAL IVP PRN (06:21)
[2020-08-27] MEDS ORDERED: D5% in Water 1,000 ML IVC PRN (06:30)
[2020-08-27] MEDS ORDERED: *HR* Dextrose 50 % in Water (Vial) 50 ML VIAL IVP PRN (06:30)
[2020-08-27] MEDS ORDERED: Dextrose Gel 15 GM/37.5 ML TUBE PO PRN ×2 (06:30)
[2020-08-27] MEDS: Morphine Sulfate 2 MG/ML SYRINGE IVP PRN ×2 (07:05→10:09)
[2020-08-27] MEDS ORDERED: *HR* Labetalol 20 MG/4 ML SYRINGE IVP PRN (07:06)
[2020-08-27] MEDS ORDERED: 0.9 % Sodium Chloride 2,000 ML ONE (07:08)
[2020-08-27] MEDS ORDERED: 0.9 % Sodium Chloride 250 ML IVC PRN (07:20)
[2020-08-27] MEDS ORDERED: 0.9 % Sodium Chloride 1,000 ML PRIME SCH (07:45)
[2020-08-27] MEDS: NIFEdipine XL (24 HR) 30 MG TAB.ER.24 PO SCH (07:59)
[2020-08-27] MEDS: Calcium Acetate 667 MG CAPSULE PO SCH ×3 (07:59→17:01)
[2020-08-27] MEDS ORDERED: Aspirin Enteric Coated 81 MG Tablet PO SCH (09:00)
[2020-08-27] MEDS ORDERED: Nitroglycerin 0.1 MG PATCH.TD24 TD STA (10:06)
[2020-08-27] MEDS ORDERED: Apixaban 2.5 MG TABLET PO SCH (12:30)
[2020-08-27] MEDS: Insulin LISPRO 300 UNITS/3 ML VIAL SUBQ SCH ×2 (14:19→18:11)
[2020-08-27] MEDS: Metoprolol XL (24 HR) Succ 25 MG TAB.ER.24H PO SCH (14:25)
[2020-08-27] MEDS: Isosorbide MONOnitrate (24 HR) 30 MG TAB.ER.24H PO SCH (14:25)
[2020-08-27] MEDS ORDERED: *HR* Heparin 5,000 UNIT/ML VIAL IVP ONE (14:37)
[2020-08-27] MEDS ORDERED: *HR* Heparin 5,000 UNIT/ML VIAL IVP PRN ×2 (14:37)
[2020-08-27] MEDS ORDERED: Heparin 25,000UNIT/250ML 1/2NS 25,000 UNIT/250 ML IV.SOLN IVC SCH ×2 (14:45)
[2020-08-27 15:18] LABS: Estimated Average Glucose 143 mg/dl; Hemoglobin A1C 6.6 %
[2020-08-27 16:01] LABS: Heparin anti-factor XA UFH 0.46 IU/mL (0.30-0.70)
[2020-08-27 16:02] LABS: INR 1.2; Prothrombin Time 13.3 Seconds (9.4-12.1)
[2020-08-27 16:03] LABS: Hematocrit 26.2 % (37.5-50.1); Mean Corpuscular HGB Conc 34.4 g/dL (31.6-35.5); Mean Corpuscular Hemoglobin 33.3 pg (28.0-33.3); Mean Platelet Volume 9.1 fL (9.4-12.4); Platelet Count 243 K/mcL (140-400); Red Cell Distribution Width 13.3 % (11.5-14.5); White Blood Count 8.6 K/mcL (4.3-11.1)
[2020-08-27] MEDS: hydrALAZINE 10 MG TABLET PO SCH (17:01)
[2020-08-27 17:05] LABS: Adenovirus Not Detected (Not Detect); Bordetella Pertussis Not Detected (Not Detect); Chlamydophila pneumoniae Not Detected (Not Detect); Coronavirus 229E Not Detected (Not Detect); Coronavirus HKU1 Not Detected (Not Detect); Coronavirus NL63 Not Detected (Not Detect); Coronavirus OC43 Not Detected (Not Detect); Human Metapneumovirus Not Detected (Not Detect); Human Rhinovirus/Enterovirus Not Detected (Not Detect); Influenza A Subtype 2009 H1 Not Detected (Not Detect); Influenza B Not Detected (Not Detect); Mycoplasma pneumoniae Not Detected (Not Detect); Parainfluenza Virus 1 Not Detected (Not Detect); Parainfluenza Virus 2 Not Detected (Not Detect); Parainfluenza Virus 3 Not Detected (Not Detect); Parainfluenza Virus 4 Not Detected (Not Detect); Respiratory Syncytial Virus Not Detected (Not Detect); SARS-CoV-2 Not Detected (Not Detect)
[2020-08-27] MEDS ORDERED: Insulin DETEMIR 100 UNIT/ML X5UNITS SUBQ SCH (21:00)
[2020-08-27] MEDS ORDERED: Insulin LISPRO 300 UNITS/3 ML VIAL SUBQ SCH (21:00)
[2020-08-28] MEDS: hydrALAZINE 10 MG TABLET PO SCH ×2 (01:20→09:06)
[2020-08-28 07:16] VITALS: BP 130/72
[2020-08-28] MEDS ORDERED: Insulin LISPRO 300 UNITS/3 ML VIAL SUBQ SCH (07:30)
[2020-08-28] MEDS: NIFEdipine XL (24 HR) 30 MG TAB.ER.24 PO SCH (09:06)
[2020-08-28] MEDS: Calcium Acetate 667 MG CAPSULE PO SCH (09:06)
[2020-08-28] MEDS: Metoprolol XL (24 HR) Succ 25 MG TAB.ER.24H PO SCH (09:06)
[2020-08-28] MEDS: Isosorbide MONOnitrate (24 HR) 30 MG TAB.ER.24H PO SCH (09:07)
[2020-08-28 09:20] LABS: Basophils % 0.4 %; Eosinophils # 0.2 K/mcL (0.0-0.6); Eosinophils % 4.2 %; Hematocrit 24.1 % (37.5-50.1); Hemoglobin 7.9 g/dL (12.9-16.9); Immature Granulocytes % 0.4 % (0-4); Lymphocytes # 0.7 K/mcL (0.6-4.6); Lymphocytes % 13.4 %; Mean Corpuscular HGB Conc 32.8 g/dL (31.6-35.5); Mean Corpuscular Hemoglobin 32.9 pg (28.0-33.3); Mean Corpuscular Volume 100.4 fL (83.0-100.0); Mean Platelet Volume 8.9 fL (9.4-12.4); Monocytes # 0.5 K/mcL (0.0-1.3); Platelet Count 203 K/mcL (140-400); Red Cell Distribution Width 13.2 % (11.5-14.5); Segmented Neutrophils % 72.6 %; White Blood Count 5.5 K/mcL (4.3-11.1)
[2020-08-28 09:36] LABS: Calcium 8.3 mg/dL (8.6-10.3); Potassium 4.7 mEq/L (3.5-5.1)
[2020-08-29] MEDS ORDERED: Cholecalciferol (D-3) 1,000 UNIT (25MCG) TABLET PO SCH (09:00)
== END 2020-08-28 09:55 | disposition left against medical advice (07) ==
LOC: EMEROOARM 00:54 → 3BNU 00:54 → SUATTDRO 05:35 → 3BNU 06:33
PROVIDERS: ADMIT Family Medicine; ATTEND Internal Medicine

== ENCOUNTER 2020-09-03 16:38 | Inpatient (IN) ==
[2020-09-03 18:55] LABS: Basophils % 0.5 %; Eosinophils # 0.2 K/mcL (0.0-0.6); Eosinophils % 3.5 %; Hematocrit 25.7 % (37.5-50.1); Hemoglobin 8.9 g/dL (12.9-16.9); Immature Granulocytes % 0.3 % (0-4); Lymphocytes # 0.9 K/mcL (0.6-4.6); Lymphocytes % 14.4 %; Mean Corpuscular HGB Conc 34.6 g/dL (31.6-35.5); Mean Corpuscular Hemoglobin 33.5 pg (28.0-33.3); Mean Corpuscular Volume 96.6 fL (83.0-100.0); Monocytes # 0.5 K/mcL (0.0-1.3); Monocytes % 8.1 %; Neutrophils # 4.5 K/mcL (1.6-8.9); Platelet Count 268 K/mcL (140-400); Red Blood Count 2.66 M/mcL (4.19-5.50); Red Cell Distribution Width 13.9 % (11.5-14.5); Segmented Neutrophils % 73.2 %; White Blood Count 6.2 K/mcL (4.3-11.1)
[2020-09-03 19:20] LABS: INR 1.1; Prothrombin Time 13.1 Seconds (9.4-12.1)
[2020-09-03 19:29] LABS: Calcium 8.6 mg/dL (8.6-10.3); Potassium 3.8 mEq/L (3.5-5.1); Troponin I 0.07 ng/mL (< 0.04)
[2020-09-03] MEDS ORDERED: Naloxone 0.4 MG/ML INJ IVP PRN (21:57)
[2020-09-03] MEDS ORDERED: Nitroglycerin 0.4 MG TAB.SUBL SL PRN (21:59)
[2020-09-03] MEDS: Morphine Sulfate 2 MG/ML SYRINGE IVP PRN (23:54)
[2020-09-04] MEDS ORDERED: D5% in Water 1,000 ML IVC PRN (01:57)
[2020-09-04] MEDS ORDERED: Dextrose Gel 15 GM/37.5 ML TUBE PO PRN ×2 (01:57)
[2020-09-04] MEDS ORDERED: *HR* Dextrose 50 % in Water (Vial) 50 ML VIAL IVP PRN (01:57)
[2020-09-04 01:58] LABS: Calcium 8.4 mg/dL (8.6-10.3); Potassium 4.1 mEq/L (3.5-5.1)
[2020-09-04 02:01] LABS: Hematocrit 24.6 % (37.5-50.1); Hemoglobin 8.5 g/dL (12.9-16.9); Mean Corpuscular HGB Conc 34.6 g/dL (31.6-35.5); Mean Corpuscular Hemoglobin 32.6 pg (28.0-33.3); Mean Corpuscular Volume 94.3 fL (83.0-100.0); Mean Platelet Volume 9.6 fL (9.4-12.4); Platelet Count 211 K/mcL (140-400); Red Blood Count 2.61 M/mcL (4.19-5.50); White Blood Count 6.7 K/mcL (4.3-11.1)
[2020-09-04] MEDS: Morphine Sulfate 2 MG/ML SYRINGE IVP PRN ×3 (05:02→21:20)
[2020-09-04] MEDS: Insulin LISPRO 300 UNITS/3 ML VIAL SUBQ SCH ×3 (06:05→16:19)
[2020-09-04] MEDS: NIFEdipine XL (24 HR) 30 MG TAB.ER.24 PO SCH (09:03)
[2020-09-04] MEDS: Metoprolol XL (24 HR) Succ 25 MG TAB.ER.24H PO SCH (09:03)
[2020-09-04] MEDS: Nitroglycerin 0.1 MG PATCH.TD24 TD SCH (09:03)
[2020-09-04] MEDS: Isosorbide MONOnitrate (24 HR) 30 MG TAB.ER.24H PO SCH (09:03)
[2020-09-04] MEDS ORDERED: Darbepoetin 100 MCG/0.5 ML SYRINGE SQ SCH (18:00)
[2020-09-05] MEDS: Insulin LISPRO 300 UNITS/3 ML VIAL SUBQ SCH ×4 (00:23→17:46)
[2020-09-05] MEDS: Acetaminophen 325 MG TABLET PO PRN ×2 (03:34→23:52)
[2020-09-05 06:33] LABS: Basophils % 0.5 %; Eosinophils # 0.3 K/mcL (0.0-0.6); Eosinophils % 5.1 %; Hemoglobin 7.9 g/dL (12.9-16.9); Immature Granulocytes % 0.3 % (0-4); Lymphocytes % 16.1 %; Mean Corpuscular HGB Conc 32.9 g/dL (31.6-35.5); Mean Corpuscular Hemoglobin 32.8 pg (28.0-33.3); Mean Corpuscular Volume 99.6 fL (83.0-100.0); Mean Platelet Volume 8.7 fL (9.4-12.4); Monocytes # 0.6 K/mcL (0.0-1.3); Monocytes % 9.5 %; Platelet Count 197 K/mcL (140-400); Red Blood Count 2.41 M/mcL (4.19-5.50); Red Cell Distribution Width 14.3 % (11.5-14.5); Segmented Neutrophils % 68.5 %; White Blood Count 5.9 K/mcL (4.3-11.1)
[2020-09-05 06:50] LABS: Calcium 7.9 mg/dL (8.6-10.3); Magnesium 1.9 mg/dL (1.6-2.6); Phosphorous 7.2 mg/dL (2.7-4.5); Potassium 4.6 mEq/L (3.5-5.1)
[2020-09-05] MEDS: Nitroglycerin 0.1 MG PATCH.TD24 TD SCH (09:15)
[2020-09-05] MEDS ORDERED: *HR* Heparin 10,000 UNIT/10 ML VIAL IV PRN (09:41)
[2020-09-05] MEDS ORDERED: 0.9 % Sodium Chloride 250 ML IVC PRN (09:41)
[2020-09-05] MEDS ORDERED: 0.9 % Sodium Chloride 1,000 ML PRIME SCH (09:45)
[2020-09-05] MEDS: Isosorbide MONOnitrate (24 HR) 30 MG TAB.ER.24H PO SCH (14:09)
[2020-09-05] MEDS: NIFEdipine XL (24 HR) 30 MG TAB.ER.24 PO SCH (14:09)
[2020-09-05] MEDS: Apixaban 5 MG TABLET PO SCH ×2 (14:09→21:33)
[2020-09-05] MEDS: Metoprolol XL (24 HR) Succ 25 MG TAB.ER.24H PO SCH (14:09)
[2020-09-05] MEDS ORDERED: Isovue-370 500 ML BOTTLE IVP ONE (16:09)
[2020-09-05] MEDS: Calcium Acetate 667 MG CAPSULE PO SCH (17:46)
[2020-09-05] MEDS ORDERED: rOPINIRole 1 MG TABLET PO SCH (21:00)
[2020-09-06] MEDS: Insulin LISPRO 300 UNITS/3 ML VIAL SUBQ SCH ×2 (00:22→06:32)
[2020-09-06 02:28] LABS: Basophils % 0.2 %; Eosinophils # 0.1 K/mcL (0.0-0.6); Eosinophils % 2.9 %; Hematocrit 22.1 % (37.5-50.1); Hemoglobin 7.6 g/dL (12.9-16.9); Immature Granulocytes % 0.2 % (0-4); Lymphocytes # 0.9 K/mcL (0.6-4.6); Lymphocytes % 17.8 %; Mean Corpuscular HGB Conc 34.4 g/dL (31.6-35.5); Mean Corpuscular Hemoglobin 33.9 pg (28.0-33.3); Mean Corpuscular Volume 98.7 fL (83.0-100.0); Mean Platelet Volume 9.1 fL (9.4-12.4); Monocytes # 0.5 K/mcL (0.0-1.3); Monocytes % 10.1 %; Neutrophils # 3.3 K/mcL (1.6-8.9); Platelet Count 204 K/mcL (140-400); Red Blood Count 2.24 M/mcL (4.19-5.50); Red Cell Distribution Width 14.3 % (11.5-14.5); Segmented Neutrophils % 68.8 %; White Blood Count 4.8 K/mcL (4.3-11.1)
[2020-09-06 02:46] LABS: Calcium 7.9 mg/dL (8.6-10.3); Phosphorous 5.1 mg/dL (2.7-4.5); Potassium 4.4 mEq/L (3.5-5.1)
[2020-09-06] MEDS ORDERED: 0.9 % Sodium Chloride 250 ML IVC PRN (07:21)
[2020-09-06] MEDS ORDERED: 0.9 % Sodium Chloride 1,000 ML PRIME SCH (07:30)
[2020-09-06] MEDS ORDERED: hydrALAZINE 10 MG TABLET PO SCH (08:15)
[2020-09-06] MEDS: Acetaminophen 325 MG TABLET PO PRN (08:37)
[2020-09-06 11:20] VITALS: BP 153/76
[2020-09-06] MEDS: Calcium Acetate 667 MG CAPSULE PO SCH (11:27)
[2020-09-06] MEDS: Isosorbide MONOnitrate (24 HR) 30 MG TAB.ER.24H PO SCH (11:42)
[2020-09-06] MEDS: Apixaban 5 MG TABLET PO SCH (11:42)
[2020-09-06] MEDS: NIFEdipine XL (24 HR) 30 MG TAB.ER.24 PO SCH (11:43)
[2020-09-06] MEDS: Metoprolol XL (24 HR) Succ 25 MG TAB.ER.24H PO SCH (11:43)
== END 2020-09-06 12:00 | disposition left against medical advice (07) | DRG 313 ==
LOC: 2ANU 16:38 → EMEROOARM 16:38 → OBSVTOIN 21:52 → SUATTDRO 21:52 → 2ANU 23:16
PROVIDERS: ADMIT Student in an Organized Health Care Education/Training Program; ATTEND Internal Medicine

== ENCOUNTER 2020-09-10 20:49 | Inpatient (IN) ==
[2020-09-10 21:56] LABS: Albumin 3.7 g/dL (3.5-5.7); Albumin/Globulin Ratio 1.2 (1.1-2.2); Basophils % 0.6 %; Bilirubin,Direct 0.1 mg/dL (0.0-0.2); Bilirubin,Indirect 0.3 mg/dL (0.0-1.0); Bilirubin,Total 0.4 mg/dL (0.3-1.0); Calcium 8.4 mg/dL (8.6-10.3); Eosinophils # 0.2 K/mcL (0.0-0.6); Eosinophils % 3.6 %; Globulin 3.2 g/dL (2.4-3.5); Hemoglobin 8.5 g/dL (12.9-16.9); Immature Granulocytes % 0.2 % (0-4); Lymphocytes # 0.8 K/mcL (0.6-4.6); Lymphocytes % 15.2 %; Mean Corpuscular Hemoglobin 33.6 pg (28.0-33.3); Mean Corpuscular Volume 98.8 fL (83.0-100.0); Mean Platelet Volume 8.7 fL (9.4-12.4); Monocytes # 0.5 K/mcL (0.0-1.3); Monocytes % 9.3 %; Neutrophils # 3.8 K/mcL (1.6-8.9); Platelet Count 248 K/mcL (140-400); Potassium 4.2 mEq/L (3.5-5.1); Red Blood Count 2.53 M/mcL (4.19-5.50); Red Cell Distribution Width 13.9 % (11.5-14.5); Segmented Neutrophils % 71.1 %; Total Protein 6.9 g/dL (6.4-8.9); White Blood Count 5.3 K/mcL (4.3-11.1)
[2020-09-10 22:04] LABS: INR 1.2; Prothrombin Time 13.6 Seconds (9.4-12.1)
[2020-09-10] MEDS ORDERED: Isovue-370 500 ML BOTTLE IVP ONE (22:45)
[2020-09-11] MEDS ORDERED: Piperacillin/Tazobactam 3.375 GM in 0.9 % Sodium Chloride Mini Bag 100 ML IVPB ONE (03:38)
[2020-09-11] MEDS ORDERED: Vancomycin 1,500 MG/265 ML IV.SOLN IVPB ONE (04:00)
[2020-09-11] MEDS ORDERED: Albuterol 2.5 MG/3 ML NEBULIZER IH PRN (04:50)
[2020-09-11] MEDS ORDERED: Ondansetron 4 MG/2 ML VIAL IVP PRN (04:51)
[2020-09-11] MEDS ORDERED: Naloxone 0.4 MG/ML INJ IVP PRN (04:51)
[2020-09-11 06:13] LABS: Troponin I 0.06 ng/mL (< 0.04)
[2020-09-11] MEDS ORDERED: hydrALAZINE 10 MG TABLET PO SCH (06:15)
[2020-09-11] MEDS ORDERED: *HR* Heparin 5,000 UNIT/ML VIAL SQ SCH ×2 (06:15→06:30)
[2020-09-11] MEDS ORDERED: *HR* Dextrose 50 % in Water (Vial) 50 ML VIAL IVP PRN (06:20)
[2020-09-11] MEDS ORDERED: D5% in Water 1,000 ML IVC PRN (06:20)
[2020-09-11] MEDS ORDERED: Dextrose Gel 15 GM/37.5 ML TUBE PO PRN ×2 (06:20)
[2020-09-11] MEDS ORDERED: Nitroglycerin 0.4 MG TAB.SUBL SL PRN (06:41)
[2020-09-11] MEDS ORDERED: *HR* Heparin 5,000 UNIT/ML VIAL ONE (06:55)
[2020-09-11] MEDS: Albuterol 2.5 MG/3 ML NEBULIZER IH SCH ×5 (07:24→23:24)
[2020-09-11] MEDS: Metoprolol XL (24 HR) Succ 25 MG TAB.ER.24H PO SCH (08:00)
[2020-09-11] MEDS: NIFEdipine XL (24 HR) 30 MG TAB.ER.24 PO SCH (08:00)
[2020-09-11] MEDS: Apixaban 5 MG TABLET PO SCH ×2 (08:00→20:48)
[2020-09-11] MEDS: predniSONE 20 MG TABLET PO SCH (08:00)
[2020-09-11] MEDS: Insulin LISPRO 300 UNITS/3 ML VIAL SUBQ SCH ×4 (08:05→20:49)
[2020-09-11] MEDS ORDERED: Apixaban 5 MG TABLET PO SCH (09:00)
[2020-09-11] MEDS ORDERED: Isosorbide MONOnitrate (24 HR) 30 MG TAB.ER.24H PO SCH (09:00)
[2020-09-11] MEDS ORDERED: levoFLOXacin 750 MG TABLET PO SCH (09:00)
[2020-09-11] MEDS: hydrALAZINE 10 MG TABLET PO SCH ×2 (15:27→20:49)
[2020-09-11] MEDS: rOPINIRole 0.25 MG TABLET PO SCH (20:48)
[2020-09-12] MEDS: Acetaminophen 325 MG TABLET PO PRN
[2020-09-12] MEDS: Albuterol 2.5 MG/3 ML NEBULIZER IH SCH ×5 (03:50→20:05)
[2020-09-12] MEDS ORDERED: 0.9 % Sodium Chloride 2,000 ML ONE (06:44)
[2020-09-12] MEDS ORDERED: 0.9 % Sodium Chloride 250 ML IVC PRN (07:15)
[2020-09-12] MEDS ORDERED: 0.9 % Sodium Chloride 1,000 ML PRIME SCH (07:15)
[2020-09-12] MEDS: Insulin LISPRO 300 UNITS/3 ML VIAL SUBQ SCH ×4 (07:54→22:12)
[2020-09-12] MEDS: Apixaban 5 MG TABLET PO SCH ×2 (07:55→22:15)
[2020-09-12] MEDS: hydrALAZINE 10 MG TABLET PO SCH ×3 (07:55→22:16)
[2020-09-12] MEDS: Metoprolol XL (24 HR) Succ 25 MG TAB.ER.24H PO SCH (07:55)
[2020-09-12] MEDS: predniSONE 20 MG TABLET PO SCH (07:55)
[2020-09-12] MEDS: NIFEdipine XL (24 HR) 30 MG TAB.ER.24 PO SCH (07:55)
[2020-09-12] MEDS: Isosorbide MONOnitrate (24 HR) 30 MG TAB.ER.24H PO SCH (08:13)
[2020-09-12 08:57] LABS: Basophils % 0.1 %; Eosinophils % 0.5 %; Hematocrit 23.1 % (37.5-50.1); Hemoglobin 7.6 g/dL (12.9-16.9); Immature Granulocytes % 0.4 % (0-4); Lymphocytes % 13.6 %; Mean Corpuscular HGB Conc 32.9 g/dL (31.6-35.5); Mean Corpuscular Hemoglobin 32.6 pg (28.0-33.3); Mean Corpuscular Volume 99.1 fL (83.0-100.0); Mean Platelet Volume 8.7 fL (9.4-12.4); Monocytes # 0.4 K/mcL (0.0-1.3); Monocytes % 5.4 %; Platelet Count 198 K/mcL (140-400); Red Blood Count 2.33 M/mcL (4.19-5.50); Red Cell Distribution Width 14.1 % (11.5-14.5); White Blood Count 7.6 K/mcL (4.3-11.1)
[2020-09-12] MEDS ORDERED: Ergocalciferol (VIT D2) 50,000 UNIT (1.25MG) CAP PO SCH (09:00)
[2020-09-12 09:20] LABS: Albumin 3.6 g/dL (3.5-5.7); Albumin/Globulin Ratio 1.2 (1.1-2.2); Bilirubin,Total 0.3 mg/dL (0.3-1.0); Calcium 8.7 mg/dL (8.6-10.3); Globulin 2.9 g/dL (2.4-3.5); Phosphorous 3.8 mg/dL (2.7-4.5); Potassium 3.8 mEq/L (3.5-5.1); Total Protein 6.5 g/dL (6.4-8.9); Troponin I 0.04 ng/mL (< 0.04)
[2020-09-12] MEDS ORDERED: *HR* LORazepam 2 MG/ML VIAL IVP ONE (10:10)
[2020-09-12 21:16] LABS: Calcium 9.1 mg/dL (8.6-10.3); Troponin I 0.04 ng/mL (< 0.04)
[2020-09-12 21:28] LABS: Prolactin 12.31 ng/mL (3.00-14.70)
[2020-09-12] MEDS: rOPINIRole 0.25 MG TABLET PO SCH (22:17)
[2020-09-13] MEDS: Albuterol 2.5 MG/3 ML NEBULIZER IH SCH ×5 (00:12→15:33)
[2020-09-13 01:46] LABS: Basophils % 0.1 %; Hematocrit 26.9 % (37.5-50.1); Hemoglobin 8.8 g/dL (12.9-16.9); Immature Granulocytes % 0.5 % (0-4); Lymphocytes # 0.3 K/mcL (0.6-4.6); Lymphocytes % 3.7 %; Mean Corpuscular HGB Conc 32.7 g/dL (31.6-35.5); Mean Corpuscular Volume 100.7 fL (83.0-100.0); Mean Platelet Volume 8.9 fL (9.4-12.4); Monocytes # 0.2 K/mcL (0.0-1.3); Neutrophils # 8.1 K/mcL (1.6-8.9); Platelet Count 254 K/mcL (140-400); Red Blood Count 2.67 M/mcL (4.19-5.50); Red Cell Distribution Width 14.4 % (11.5-14.5); Segmented Neutrophils % 93.7 %; White Blood Count 8.7 K/mcL (4.3-11.1)
[2020-09-13 02:25] LABS: Hepatitis B Surface Antibody < 3.10 mIU/mL
[2020-09-13 02:36] LABS: Hepatitis B Surface Antigen Nonreactive (Nonreactive)
[2020-09-13] MEDS: Acetaminophen 325 MG TABLET PO PRN ×3 (03:07→21:27)
[2020-09-13] MEDS: NIFEdipine XL (24 HR) 30 MG TAB.ER.24 PO SCH (08:30)
[2020-09-13] MEDS: Insulin LISPRO 300 UNITS/3 ML VIAL SUBQ SCH ×4 (08:30→20:08)
[2020-09-13] MEDS: Apixaban 5 MG TABLET PO SCH ×2 (08:30→20:08)
[2020-09-13] MEDS: levoFLOXacin 500 MG TABLET PO SCH (08:30)
[2020-09-13] MEDS: hydrALAZINE 10 MG TABLET PO SCH ×3 (08:30→20:08)
[2020-09-13] MEDS: Isosorbide MONOnitrate (24 HR) 30 MG TAB.ER.24H PO SCH (08:30)
[2020-09-13] MEDS: Metoprolol XL (24 HR) Succ 25 MG TAB.ER.24H PO SCH (08:31)
[2020-09-13] MEDS: predniSONE 20 MG TABLET PO SCH (08:31)
[2020-09-13 16:34] LABS: Calcium 9.4 mg/dL (8.6-10.3); Magnesium 1.8 mg/dL (1.6-2.6); Potassium 4.9 mEq/L (3.5-5.1)
[2020-09-13] MEDS ORDERED: Ipratropium/Albuterol Neb 3 ML IH PRN (16:44)
[2020-09-13] MEDS: rOPINIRole 0.25 MG TABLET PO SCH (20:08)
[2020-09-13] MEDS ORDERED: Melatonin 3 MG TABLET PO ONE (22:45)
[2020-09-13] MEDS: Melatonin 3 MG TABLET PO PRN (23:16)
[2020-09-14] MEDS ORDERED: 0.9 % Sodium Chloride 1,000 ML PRIME SCH (07:00)
[2020-09-14] MEDS ORDERED: 0.9 % Sodium Chloride 250 ML IVC PRN (07:00)
[2020-09-14] MEDS: predniSONE 20 MG TABLET PO SCH (07:54)
[2020-09-14] MEDS: NIFEdipine XL (24 HR) 30 MG TAB.ER.24 PO SCH (07:54)
[2020-09-14] MEDS: Insulin LISPRO 300 UNITS/3 ML VIAL SUBQ SCH ×4 (07:55→19:56)
[2020-09-14] MEDS: Isosorbide MONOnitrate (24 HR) 30 MG TAB.ER.24H PO SCH (07:55)
[2020-09-14] MEDS: Apixaban 5 MG TABLET PO SCH (07:55)
[2020-09-14] MEDS: hydrALAZINE 10 MG TABLET PO SCH ×3 (07:59→19:55)
[2020-09-14 10:52] LABS: Basophils % 0.2 %; Eosinophils % 0.2 %; Hematocrit 24.9 % (37.5-50.1); Immature Granulocytes % 0.9 % (0-4); Mean Corpuscular HGB Conc 32.1 g/dL (31.6-35.5); Mean Corpuscular Hemoglobin 32.7 pg (28.0-33.3); Mean Corpuscular Volume 101.6 fL (83.0-100.0); Mean Platelet Volume 8.8 fL (9.4-12.4); Monocytes # 0.9 K/mcL (0.0-1.3); Monocytes % 7.9 %; Neutrophils # 9.5 K/mcL (1.6-8.9); Platelet Count 225 K/mcL (140-400); Red Blood Count 2.45 M/mcL (4.19-5.50); Red Cell Distribution Width 14.5 % (11.5-14.5); Segmented Neutrophils % 81.8 %; White Blood Count 11.6 K/mcL (4.3-11.1)
[2020-09-14 11:46] LABS: Magnesium 1.8 mg/dL (1.6-2.6); Phosphorous 1.8 mg/dL (2.7-4.5); Potassium 3.6 mEq/L (3.5-5.1)
[2020-09-14] MEDS: Metoprolol XL (24 HR) Succ 25 MG TAB.ER.24H PO SCH (12:52)
[2020-09-14] MEDS: Acetaminophen 325 MG TABLET PO PRN (19:55)
[2020-09-14] MEDS: rOPINIRole 0.25 MG TABLET PO SCH (19:55)
[2020-09-15] MEDS ORDERED: *HR* Labetalol 20 MG/4 ML SYRINGE IVP ONE ×2 (00:13→00:52)
[2020-09-15 02:41] LABS: Basophils % 0.1 %; Hematocrit 24.5 % (37.5-50.1); Hemoglobin 7.9 g/dL (12.9-16.9); Immature Granulocytes % 1.2 % (0-4); Lymphocytes # 0.7 K/mcL (0.6-4.6); Lymphocytes % 8.7 %; Mean Corpuscular HGB Conc 32.2 g/dL (31.6-35.5); Mean Corpuscular Hemoglobin 33.2 pg (28.0-33.3); Mean Corpuscular Volume 102.9 fL (83.0-100.0); Mean Platelet Volume 8.9 fL (9.4-12.4); Monocytes # 0.6 K/mcL (0.0-1.3); Monocytes % 7.3 %; Neutrophils # 6.3 K/mcL (1.6-8.9); Platelet Count 214 K/mcL (140-400); Red Blood Count 2.38 M/mcL (4.19-5.50); Red Cell Distribution Width 14.4 % (11.5-14.5); Segmented Neutrophils % 82.7 %; White Blood Count 7.6 K/mcL (4.3-11.1)
[2020-09-15 03:06] LABS: Calcium 8.7 mg/dL (8.6-10.3); Potassium 4.9 mEq/L (3.5-5.1)
[2020-09-15] MEDS: levoFLOXacin 500 MG TABLET PO SCH (08:22)
[2020-09-15] MEDS: NIFEdipine XL (24 HR) 30 MG TAB.ER.24 PO SCH (08:22)
[2020-09-15] MEDS: Insulin LISPRO 300 UNITS/3 ML VIAL SUBQ SCH ×4 (08:22→20:25)
[2020-09-15] MEDS: predniSONE 20 MG TABLET PO SCH (08:22)
[2020-09-15] MEDS: Metoprolol XL (24 HR) Succ 25 MG TAB.ER.24H PO SCH (08:23)
[2020-09-15] MEDS: Isosorbide MONOnitrate (24 HR) 30 MG TAB.ER.24H PO SCH (08:23)
[2020-09-15] MEDS: hydrALAZINE 10 MG TABLET PO SCH ×3 (08:23→20:25)
[2020-09-15] MEDS ORDERED: *HR* Propofol 200 MG/20 ML VIAL IVP ONE (09:37)
[2020-09-15] MEDS ORDERED: Lidocaine -MPF 2% 2 ML VIAL ONE (09:39)
[2020-09-15] MEDS: 0.9 % Sodium Chloride 500 ML IVC SCH ×2 (09:43→20:27)
[2020-09-15] MEDS: rOPINIRole 0.25 MG TABLET PO SCH (20:24)
[2020-09-15] MEDS: Pantoprazole 40 MG VIAL IVP SCH (20:25)
[2020-09-15] MEDS ORDERED: *HR* Dextrose 50 % in Water (Vial) 50 ML VIAL IVP PRN (21:06)
[2020-09-15] MEDS ORDERED: D5% in Water 1,000 ML IVC PRN (21:06)
[2020-09-15] MEDS ORDERED: Dextrose Gel 15 GM/37.5 ML TUBE PO PRN ×2 (21:06)
[2020-09-15] MEDS ORDERED: Insulin DETEMIR 100 UNIT/ML X5UNITS SUBQ SCH (21:15)
[2020-09-16] MEDS: Acetaminophen 325 MG TABLET PO PRN (01:52)
[2020-09-16] MEDS: Melatonin 3 MG TABLET PO PRN (03:17)
[2020-09-16 06:54] VITALS: BP 171/67
[2020-09-16] MEDS ORDERED: Insulin LISPRO 300 UNITS/3 ML VIAL SUBQ SCH ×2 (07:30→21:00)
[2020-09-16] MEDS ORDERED: predniSONE 20 MG TABLET PO SCH (09:00)
[2020-09-16] MEDS: hydrALAZINE 10 MG TABLET PO SCH (10:13)
[2020-09-16] MEDS: Apixaban 5 MG TABLET PO SCH (10:13)
[2020-09-16] MEDS: Metoprolol XL (24 HR) Succ 25 MG TAB.ER.24H PO SCH (10:13)
[2020-09-16] MEDS: Isosorbide MONOnitrate (24 HR) 30 MG TAB.ER.24H PO SCH (10:13)
[2020-09-16] MEDS: NIFEdipine XL (24 HR) 30 MG TAB.ER.24 PO SCH (10:13)
[2020-09-16] MEDS: Pantoprazole 40 MG VIAL IVP SCH (10:13)
== END 2020-09-16 10:59 | disposition home or self-care (01) | DRG 190 ==
LOC: EMEROOARM 20:49 → 3ANU 20:49 → SUATTDRO 09-11 03:51 → 2ANU 09-11 04:15 → SUATTDRO 09-12 16:44
PROVIDERS: ADMIT Family Medicine; ATTEND Pharmacist
PROC: ENDOEBX (2020-09-15 10:00)

== ENCOUNTER 2020-09-24 23:36 | Inpatient (IN) ==
[2020-09-24] MEDS ORDERED: Isovue-370 500 ML BOTTLE IVP ONE (23:46)
[2020-09-25 00:35] LABS: INR 1.1; Prothrombin Time 12.5 Seconds (9.4-12.1)
[2020-09-25 00:38] LABS: Activated Partial Thrombo Time 31.1 Seconds (26.0-36.0); Potassium 4.8 mEq/L (3.5-5.1)
[2020-09-25 00:42] LABS: Hematocrit 27.2 % (37.5-50.1); Hemoglobin 9.2 g/dL (12.9-16.9); Mean Corpuscular HGB Conc 33.8 g/dL (31.6-35.5); Mean Corpuscular Hemoglobin 33.1 pg (28.0-33.3); Mean Corpuscular Volume 97.8 fL (83.0-100.0); Platelet Count 230 K/mcL (140-400); Red Blood Count 2.78 M/mcL (4.19-5.50); Red Cell Distribution Width 13.9 % (11.5-14.5); White Blood Count 9.5 K/mcL (4.3-11.1)
[2020-09-25 00:43] LABS: Troponin I 0.06 ng/mL (< 0.04)
[2020-09-25] MEDS ORDERED: *HR* FentaNYL (PF) 100 MCG/2 ML VIAL IVP ONE (00:45)
[2020-09-25] MEDS ORDERED: hydrALAZINE 10 MG TABLET PO SCH (04:00)
[2020-09-25] MEDS ORDERED: Ipratropium/Albuterol Neb 3 ML IH PRN ×2 (04:03→13:10)
[2020-09-25] MEDS ORDERED: Nitroglycerin 0.4 MG TAB.SUBL SL PRN (04:03)
[2020-09-25] MEDS ORDERED: *HR* HYDROcodone/Acet 5/325 mg TABLET PO ONE (05:03)
[2020-09-25] MEDS ORDERED: Dextrose Gel 15 GM/37.5 ML TUBE PO PRN ×2 (05:23)
[2020-09-25] MEDS ORDERED: D5% in Water 1,000 ML IVC PRN (05:23)
[2020-09-25] MEDS ORDERED: *HR* Dextrose 50 % in Water (Vial) 50 ML VIAL IVP PRN (05:23)
[2020-09-25] MEDS ORDERED: 0.9 % Sodium Chloride 250 ML IVC PRN (07:18)
[2020-09-25] MEDS ORDERED: Tiotropium 10 INH DOSE IH ONE (07:19)
[2020-09-25] MEDS: Tiotropium 10 INH DOSE IH SCH (07:28)
[2020-09-25] MEDS ORDERED: 0.9 % Sodium Chloride 1,000 ML PRIME SCH (07:30)
[2020-09-25] MEDS ORDERED: 0.9 % Sodium Chloride 1,000 ML ONE (07:39)
[2020-09-25] MEDS ORDERED: Perflutren Lipid Microsphere 1.3 ML in 0.9 % Sodium Chloride 8.7 ML IVP PRN (08:26)
[2020-09-25] MEDS: Insulin LISPRO 300 UNITS/3 ML VIAL SUBQ SCH ×4 (08:30→20:05)
[2020-09-25] MEDS ORDERED: NIFEdipine XL (24 HR) 30 MG TAB.ER.24 PO SCH (09:00)
[2020-09-25] MEDS ORDERED: Apixaban 5 MG TABLET PO SCH (09:00)
[2020-09-25] MEDS ORDERED: Metoprolol XL (24 HR) Succ 25 MG TAB.ER.24H PO SCH (09:00)
[2020-09-25] MEDS ORDERED: Aspirin Enteric Coated 81 MG Tablet PO SCH (09:00)
[2020-09-25] MEDS ORDERED: Isosorbide MONOnitrate (24 HR) 30 MG TAB.ER.24H PO SCH (09:00)
[2020-09-25 12:13] LABS: Folate 9.2 ng/mL (3.0-16.0)
[2020-09-25] MEDS ORDERED: *HR* Heparin 5,000 UNIT/ML VIAL IVP PRN ×2 (12:15)
[2020-09-25] MEDS ORDERED: *HR* Heparin 5,000 UNIT/ML VIAL IVP ONE (12:15)
[2020-09-25] MEDS: *HR* OxyCODONE/APAP 7.5/325 TABLET PO PRN ×2 (13:39→20:04)
[2020-09-25 14:10] LABS: Estimated Average Glucose 131 mg/dl; Hemoglobin A1C 6.2 %
[2020-09-25] MEDS: Ipratropium/Albuterol Neb 3 ML IH SCH ×3 (15:28→22:23)
[2020-09-25 16:17] LABS: Adenovirus Not Detected (Not Detect); Bordetella Pertussis Not Detected (Not Detect); Chlamydophila pneumoniae Not Detected (Not Detect); Coronavirus 229E Not Detected (Not Detect); Coronavirus HKU1 Not Detected (Not Detect); Coronavirus NL63 Not Detected (Not Detect); Coronavirus OC43 Not Detected (Not Detect); Human Metapneumovirus Not Detected (Not Detect); Human Rhinovirus/Enterovirus Not Detected (Not Detect); Influenza A Subtype 2009 H1 Not Detected (Not Detect); Influenza B Not Detected (Not Detect); Mycoplasma pneumoniae Not Detected (Not Detect); Parainfluenza Virus 1 Not Detected (Not Detect); Parainfluenza Virus 2 Not Detected (Not Detect); Parainfluenza Virus 3 Not Detected (Not Detect); Parainfluenza Virus 4 Not Detected (Not Detect); Respiratory Syncytial Virus Not Detected (Not Detect); SARS-CoV-2 Not Detected (Not Detect)
[2020-09-25] MEDS: Heparin 25,000UNIT/250ML 1/2NS 25,000 UNIT/250 ML IV.SOLN IVC SCH (17:07)
[2020-09-25] MEDS: cefTRIAXone 1,000 MG in 0.9 % Sodium Chloride Mini Bag 100 ML IVPB SCH (17:54)
[2020-09-25] MEDS: Azithromycin 500 MG in 0.9 % Sodium Chloride 250 ML IVPB SCH (18:51)
[2020-09-25] MEDS: rOPINIRole 0.25 MG TABLET PO SCH (20:04)
[2020-09-25] MEDS: Budesonide/Formoterol 160/4.5 1 PUFF INH IH SCH (22:23)
[2020-09-26 00:18] LABS: Calcium 7.3 mg/dL (8.6-10.3); Potassium 4.7 mEq/L (3.5-5.1)
[2020-09-26 00:22] LABS: Troponin I 0.06 ng/mL (< 0.04)
[2020-09-26] MEDS: *HR* OxyCODONE/APAP 7.5/325 TABLET PO PRN ×3 (02:28→20:43)
[2020-09-26] MEDS: Ipratropium/Albuterol Neb 3 ML IH SCH ×4 (03:31→22:15)
[2020-09-26 04:55] LABS: INR 1.1
[2020-09-26 05:04] LABS: % Iron Saturation 30 % (20-55); Iron 57 mcg/dL (65-175); Transferrin 134 mg/dL (203-362)
[2020-09-26 05:05] LABS: Albumin 3.3 g/dL (3.5-5.7); Albumin/Globulin Ratio 1.2 (1.1-2.2); Bilirubin,Total 0.4 mg/dL (0.3-1.0); Calcium 7.4 mg/dL (8.6-10.3); Chol/HDL Ratio 3.5 (0-4.9); Globulin 2.8 g/dL (2.4-3.5); Potassium 5.3 mEq/L (3.5-5.1); Total Protein 6.1 g/dL (6.4-8.9)
[2020-09-26 05:09] LABS: Troponin I 0.06 ng/mL (< 0.04)
[2020-09-26 05:23] LABS: Ferritin 710 ng/mL (20-250)
[2020-09-26 05:32] LABS: Folate 8.1 ng/mL (3.0-16.0)
[2020-09-26] MEDS: Insulin LISPRO 300 UNITS/3 ML VIAL SUBQ SCH ×4 (08:05→20:34)
[2020-09-26] MEDS ORDERED: 0.9 % Sodium Chloride 250 ML IVC PRN (08:05)
[2020-09-26] MEDS ORDERED: 0.9 % Sodium Chloride 1,000 ML PRIME SCH (08:15)
[2020-09-26] MEDS: Budesonide/Formoterol 160/4.5 1 PUFF INH IH SCH ×2 (10:58→22:15)
[2020-09-26] MEDS: Tiotropium 10 INH DOSE IH SCH (10:59)
[2020-09-26] MEDS: cefTRIAXone 1,000 MG in 0.9 % Sodium Chloride Mini Bag 100 ML IVPB SCH (13:17)
[2020-09-26] MEDS: Azithromycin 500 MG in 0.9 % Sodium Chloride 250 ML IVPB SCH (13:35)
[2020-09-26] MEDS: Heparin 25,000UNIT/250ML 1/2NS 25,000 UNIT/250 ML IV.SOLN IVC SCH (14:33)
[2020-09-26] MEDS: Isosorbide MONOnitrate (24 HR) 30 MG TAB.ER.24H PO SCH (14:53)
[2020-09-26] MEDS: Metoprolol XL (24 HR) Succ 25 MG TAB.ER.24H PO SCH (14:54)
[2020-09-26] MEDS: rOPINIRole 0.25 MG TABLET PO SCH (20:44)
[2020-09-27] MEDS: Ipratropium/Albuterol Neb 3 ML IH SCH ×4 (03:44→22:08)
[2020-09-27] MEDS: *HR* OxyCODONE/APAP 7.5/325 TABLET PO PRN ×2 (04:55→15:46)
[2020-09-27 05:35] LABS: Basophils % 0.2 %; Eosinophils # 0.1 K/mcL (0.0-0.6); Eosinophils % 3.2 %; Hematocrit 22.2 % (37.5-50.1); Immature Granulocytes % 0.2 % (0-4); Lymphocytes # 0.8 K/mcL (0.6-4.6); Lymphocytes % 17.6 %; Mean Corpuscular HGB Conc 33.8 g/dL (31.6-35.5); Mean Corpuscular Hemoglobin 33.3 pg (28.0-33.3); Mean Corpuscular Volume 98.7 fL (83.0-100.0); Mean Platelet Volume 9.1 fL (9.4-12.4); Monocytes # 0.5 K/mcL (0.0-1.3); Platelet Count 173 K/mcL (140-400); Red Blood Count 2.25 M/mcL (4.19-5.50); Red Cell Distribution Width 13.7 % (11.5-14.5); Segmented Neutrophils % 67.8 %
[2020-09-27 05:36] LABS: Hemoglobin 7.5 g/dL (12.9-16.9); White Blood Count 4.4 K/mcL (4.3-11.1)
[2020-09-27 07:20] LABS: Calcium 7.6 mg/dL (8.6-10.3); Potassium 4.1 mEq/L (3.5-5.1)
[2020-09-27] MEDS ORDERED: 0.9 % Sodium Chloride 250 ML IVC PRN (07:20)
[2020-09-27] MEDS ORDERED: 0.9 % Sodium Chloride 1,000 ML PRIME SCH (07:30)
[2020-09-27] MEDS: Budesonide/Formoterol 160/4.5 1 PUFF INH IH SCH ×2 (10:11→22:10)
[2020-09-27] MEDS: Metoprolol XL (24 HR) Succ 25 MG TAB.ER.24H PO SCH (10:25)
[2020-09-27] MEDS: Insulin LISPRO 300 UNITS/3 ML VIAL SUBQ SCH ×4 (10:25→19:51)
[2020-09-27] MEDS: Isosorbide MONOnitrate (24 HR) 30 MG TAB.ER.24H PO SCH (10:25)
[2020-09-27] MEDS: cefTRIAXone 1,000 MG in 0.9 % Sodium Chloride Mini Bag 100 ML IVPB SCH (12:08)
[2020-09-27 12:58] LABS: Hematocrit 24.9 % (37.5-50.1); Hemoglobin 8.2 g/dL (12.9-16.9)
[2020-09-27] MEDS: Ondansetron 4 MG/2 ML VIAL IVP PRN (13:03)
[2020-09-27] MEDS: Doxycycline 100 MG CAPSULE PO SCH (17:11)
[2020-09-27] MEDS: rOPINIRole 0.25 MG TABLET PO SCH (19:55)
[2020-09-28] MEDS: Ondansetron 4 MG/2 ML VIAL IVP PRN ×2 (00:01→06:09)
[2020-09-28] MEDS ORDERED: Acetaminophen 325 MG TABLET PO ONE (00:56)
[2020-09-28] MEDS: Ipratropium/Albuterol Neb 3 ML IH SCH ×2 (04:13→10:52)
[2020-09-28 04:15] LABS: Basophils % 0.2 %; Eosinophils # 0.2 K/mcL (0.0-0.6); Eosinophils % 3.2 %; Hematocrit 24.6 % (37.5-50.1); Hemoglobin 7.9 g/dL (12.9-16.9); Immature Granulocytes % 0.4 % (0-4); Lymphocytes # 0.7 K/mcL (0.6-4.6); Lymphocytes % 15.1 %; Mean Corpuscular HGB Conc 32.1 g/dL (31.6-35.5); Mean Corpuscular Hemoglobin 32.2 pg (28.0-33.3); Mean Corpuscular Volume 100.4 fL (83.0-100.0); Mean Platelet Volume 8.8 fL (9.4-12.4); Monocytes # 0.5 K/mcL (0.0-1.3); Neutrophils # 3.3 K/mcL (1.6-8.9); Platelet Count 175 K/mcL (140-400); Red Blood Count 2.45 M/mcL (4.19-5.50); Red Cell Distribution Width 13.3 % (11.5-14.5); Segmented Neutrophils % 70.1 %; White Blood Count 4.6 K/mcL (4.3-11.1)
[2020-09-28 04:27] LABS: Calcium 8.1 mg/dL (8.6-10.3); Potassium 3.8 mEq/L (3.5-5.1)
[2020-09-28] MEDS: Doxycycline 100 MG CAPSULE PO SCH (05:44)
[2020-09-28 07:16] VITALS: BP 148/70
[2020-09-28] MEDS: Metoprolol XL (24 HR) Succ 25 MG TAB.ER.24H PO SCH (07:42)
[2020-09-28] MEDS: *HR* OxyCODONE/APAP 7.5/325 TABLET PO PRN (07:42)
[2020-09-28] MEDS: Insulin LISPRO 300 UNITS/3 ML VIAL SUBQ SCH (07:42)
[2020-09-28] MEDS: Isosorbide MONOnitrate (24 HR) 30 MG TAB.ER.24H PO SCH (07:42)
[2020-09-28] MEDS: cefTRIAXone 1,000 MG in 0.9 % Sodium Chloride Mini Bag 100 ML IVPB SCH (07:43)
[2020-09-28] MEDS: Budesonide/Formoterol 160/4.5 1 PUFF INH IH SCH (10:52)
== END 2020-09-28 11:29 | disposition home health service (06) | DRG 193 ==
LOC: EMEROOARM 23:36 → CDU 23:36 → SUATTDRO 09-25 04:01 → CDU 09-25 04:16 → SUATTDRO 09-25 14:56 → 2ANU 09-26 19:00
PROVIDERS: ADMIT Internal Medicine; ATTEND Family Medicine

== ENCOUNTER 2020-09-28 13:59 | Inpatient (IN) ==
[2020-09-28] MEDS ORDERED: Isovue-370 500 ML BOTTLE IVP ONE (15:04)
[2020-09-28 16:36] LABS: Basophils % 0.3 %; Eosinophils # 0.2 K/mcL (0.0-0.6); Hematocrit 28.1 % (37.5-50.1); Hemoglobin 9.2 g/dL (12.9-16.9); Immature Granulocytes % 0.3 % (0-4); Lymphocytes # 0.7 K/mcL (0.6-4.6); Lymphocytes % 10.7 %; Mean Corpuscular HGB Conc 32.7 g/dL (31.6-35.5); Mean Corpuscular Hemoglobin 32.7 pg (28.0-33.3); Monocytes # 0.6 K/mcL (0.0-1.3); Monocytes % 8.3 %; Neutrophils # 5.2 K/mcL (1.6-8.9); Platelet Count 218 K/mcL (140-400); Red Blood Count 2.81 M/mcL (4.19-5.50); Red Cell Distribution Width 13.4 % (11.5-14.5); Segmented Neutrophils % 77.4 %; White Blood Count 6.7 K/mcL (4.3-11.1)
[2020-09-28 17:02] LABS: Albumin 3.9 g/dL (3.5-5.7); Albumin/Globulin Ratio 1.2 (1.1-2.2); Bilirubin,Direct 0.1 mg/dL (0.0-0.2); Bilirubin,Indirect 0.2 mg/dL (0.0-1.0); Bilirubin,Total 0.3 mg/dL (0.3-1.0); Calcium 8.4 mg/dL (8.6-10.3); Globulin 3.3 g/dL (2.4-3.5); Potassium 4.1 mEq/L (3.5-5.1); Total Protein 7.2 g/dL (6.4-8.9); Troponin I 0.05 ng/mL (< 0.04)
[2020-09-28] MEDS ORDERED: Acetaminophen 325 MG TABLET PO PRN (22:00)
[2020-09-28] MEDS ORDERED: Ondansetron 4 MG/2 ML VIAL IVP PRN (22:00)
[2020-09-28] MEDS ORDERED: Naloxone 0.4 MG/ML INJ IVP PRN (22:00)
[2020-09-28] MEDS ORDERED: Acetaminophen IV 1,000 MG/100 ML BAG IVPB ONE (22:10)
[2020-09-28] MEDS ORDERED: *HR* Dextrose 50 % in Water (Vial) 50 ML VIAL IVP PRN (22:25)
[2020-09-28] MEDS ORDERED: Dextrose Gel 15 GM/37.5 ML TUBE PO PRN ×2 (22:25)
[2020-09-28] MEDS ORDERED: D5% in Water 1,000 ML IVC PRN (22:25)
[2020-09-28 22:28] LABS: Bilirubin,Urine Negative (Negative); Blood,Urine Negative (Negative); Clarity,Urine Clear (Clear); Color,Urine Light-Yellow (Yellow); Glucose,Urine (UA) 300 mg/dL (Normal); Ketones,Urine Negative (Negative); Leukocyte Esterase,Urine Negative (Negative); Nitrite,Urine Negative (Negative); Protein,Urine >=300 mg/dL (Neg-Trace); RBC,Urine 0-3 per hpf (0-3); Specific Gravity,Urine 1.015 (1.010-1.025); Urobilinogen,Urine Normal (Normal); WBC,Urine 0-3 per hpf (0-3)
[2020-09-28] MEDS ORDERED: Calcium Gluconate 1gm/50mL 1 GM/50 ML BAG IVPB ONE (22:38)
[2020-09-28] MEDS: Insulin LISPRO 300 UNITS/3 ML VIAL SUBQ SCH (22:48)
[2020-09-28] MEDS ORDERED: Nitroglycerin 0.4 MG TAB.SUBL SL PRN (22:59)
[2020-09-29] MEDS: Insulin LISPRO 300 UNITS/3 ML VIAL SUBQ SCH ×4 (07:37→21:22)
[2020-09-29] MEDS ORDERED: 0.9 % Sodium Chloride 250 ML IVC PRN (09:42)
[2020-09-29] MEDS ORDERED: 0.9 % Sodium Chloride 1,000 ML PRIME SCH (09:45)
[2020-09-29] MEDS ORDERED: Nitroglycerin 0.4 MG TAB.SUBL SL PRN (17:35)
[2020-09-29] MEDS: rOPINIRole 0.25 MG TABLET PO SCH (21:22)
[2020-09-30] MEDS: Insulin LISPRO 300 UNITS/3 ML VIAL SUBQ SCH ×4 (08:30→19:54)
[2020-09-30] MEDS: Metoprolol XL (24 HR) Succ 25 MG TAB.ER.24H PO SCH (09:45)
[2020-09-30] MEDS: hydrALAZINE 10 MG TABLET PO SCH (09:45)
[2020-09-30] MEDS: rOPINIRole 0.25 MG TABLET PO SCH (19:35)
[2020-10-01] MEDS ORDERED: 0.9 % Sodium Chloride 250 ML IVC PRN (07:14)
[2020-10-01] MEDS: Insulin LISPRO 300 UNITS/3 ML VIAL SUBQ SCH ×4 (08:49→20:57)
[2020-10-01] MEDS: Metoprolol XL (24 HR) Succ 25 MG TAB.ER.24H PO SCH (08:52)
[2020-10-01] MEDS: hydrALAZINE 10 MG TABLET PO SCH (08:52)
[2020-10-01 10:40] LABS: Calcium 8.5 mg/dL (8.6-10.3); Chol/HDL Ratio 2.9 (0-4.9); Magnesium 1.7 mg/dL (1.6-2.6); Potassium 3.8 mEq/L (3.5-5.1)
[2020-10-01 10:50] LABS: Estimated Average Glucose 126 mg/dl
[2020-10-01 10:55] LABS: Folate 4.2 ng/mL (3.0-16.0)
[2020-10-01] MEDS: rOPINIRole 0.25 MG TABLET PO SCH (21:05)
[2020-10-02 04:44] LABS: Mean Corpuscular Hemoglobin 31.9 pg (28.0-33.3); Mean Corpuscular Volume 99.6 fL (83.0-100.0); Mean Platelet Volume 9.3 fL (9.4-12.4); Platelet Count 189 K/mcL (140-400); Red Blood Count 2.51 M/mcL (4.19-5.50); Red Cell Distribution Width 12.9 % (11.5-14.5); White Blood Count 4.2 K/mcL (4.3-11.1)
[2020-10-02 04:57] LABS: Calcium 8.5 mg/dL (8.6-10.3); Potassium 4.5 mEq/L (3.5-5.1)
[2020-10-02] MEDS: hydrALAZINE 10 MG TABLET PO SCH (09:05)
[2020-10-02] MEDS: Metoprolol XL (24 HR) Succ 25 MG TAB.ER.24H PO SCH (09:05)
[2020-10-02] MEDS: Insulin LISPRO 300 UNITS/3 ML VIAL SUBQ SCH ×4 (09:06→21:40)
[2020-10-02] MEDS: rOPINIRole 0.25 MG TABLET PO SCH (21:40)
[2020-10-03 02:32] LABS: Hemoglobin 7.9 g/dL (12.9-16.9); Mean Corpuscular HGB Conc 32.9 g/dL (31.6-35.5); Mean Corpuscular Hemoglobin 32.5 pg (28.0-33.3); Mean Corpuscular Volume 98.8 fL (83.0-100.0); Mean Platelet Volume 9.1 fL (9.4-12.4); Platelet Count 175 K/mcL (140-400); Red Blood Count 2.43 M/mcL (4.19-5.50); White Blood Count 4.3 K/mcL (4.3-11.1)
[2020-10-03 02:46] LABS: Calcium 8.5 mg/dL (8.6-10.3); Potassium 4.9 mEq/L (3.5-5.1)
[2020-10-03 07:02] VITALS: BP 166/90
[2020-10-03] MEDS ORDERED: 0.9 % Sodium Chloride 250 ML IVC PRN (07:38)
[2020-10-03] MEDS: hydrALAZINE 10 MG TABLET PO SCH (08:45)
[2020-10-03] MEDS: Metoprolol XL (24 HR) Succ 25 MG TAB.ER.24H PO SCH (08:46)
[2020-10-03] MEDS: Insulin LISPRO 300 UNITS/3 ML VIAL SUBQ SCH (08:46)
== END 2020-10-03 10:43 | disposition left against medical advice (07) | DRG 67 ==
LOC: 2ANU 13:59 → EMEROOARM 13:59 → SUATTDRO 19:59 → 2ANU 21:43 → SUATTDRO 10-01 13:49
PROVIDERS: ADMIT Internal Medicine; ATTEND Internal Medicine

== ENCOUNTER 2020-11-23 01:59 | Inpatient (IN) ==
[2020-11-23] MEDS ORDERED: Aspirin 81 MG TAB.CHEW PO ONE (03:04)
[2020-11-23 04:39] LABS: Basophils % 0.3 %; Eosinophils # 0.2 K/mcL (0.0-0.6); Eosinophils % 2.8 %; Hemoglobin 7.8 g/dL (12.9-16.9); Immature Granulocytes % 0.4 % (0-4); Lymphocytes # 0.9 K/mcL (0.6-4.6); Lymphocytes % 10.7 %; Mean Corpuscular HGB Conc 32.5 g/dL (31.6-35.5); Mean Corpuscular Hemoglobin 30.4 pg (28.0-33.3); Mean Corpuscular Volume 93.4 fL (83.0-100.0); Mean Platelet Volume 8.9 fL (9.4-12.4); Monocytes # 0.6 K/mcL (0.0-1.3); Monocytes % 7.8 %; Neutrophils # 6.2 K/mcL (1.6-8.9); Platelet Count 235 K/mcL (140-400); Red Blood Count 2.57 M/mcL (4.19-5.50); Red Cell Distribution Width 13.7 % (11.5-14.5); White Blood Count 7.9 K/mcL (4.3-11.1)
[2020-11-23 04:57] LABS: Calcium 8.8 mg/dL (8.6-10.3); Potassium 5.9 mEq/L (3.5-5.1)
[2020-11-23 05:00] LABS: Troponin I 0.04 ng/mL (< 0.04)
[2020-11-23 05:09] LABS: INR 1.3; Prothrombin Time 14.7 Seconds (9.4-12.1)
[2020-11-23 05:12] LABS: Activated Partial Thrombo Time 30.4 Seconds (26.0-36.0)
[2020-11-23] MEDS ORDERED: Naloxone 0.4 MG/ML INJ IVP PRN (07:29)
[2020-11-23] MEDS ORDERED: Nitroglycerin 0.4 MG TAB.SUBL SL PRN (07:39)
[2020-11-23] MEDS ORDERED: 0.9 % Sodium Chloride 250 ML IVC PRN (08:54)
[2020-11-23] MEDS ORDERED: 0.9 % Sodium Chloride 1,000 ML PRIME SCH (09:00)
[2020-11-23 10:33] LABS: Hepatitis B Surface Antibody < 3.10 mIU/mL
[2020-11-23 10:43] LABS: Hepatitis B Surface Antigen Nonreactive (Nonreactive)
[2020-11-23] MEDS ORDERED: *HR* Dextrose 50 % in Water (Vial) 50 ML VIAL IVP PRN (12:03)
[2020-11-23] MEDS ORDERED: D5% in Water 1,000 ML IVC PRN (12:03)
[2020-11-23] MEDS ORDERED: Dextrose Gel 15 GM/37.5 ML TUBE PO PRN ×2 (12:03)
[2020-11-23] MEDS: Metoprolol XL (24 HR) Succ 25 MG TAB.ER.24H PO SCH (14:06)
[2020-11-23] MEDS: SODIUM ZIRCONIUM CYCLOSILICATE 5 GM POWD.PACK PO SCH (14:06)
[2020-11-23] MEDS ORDERED: Ipratropium/Albuterol Neb 3 ML IH PRN (14:48)
[2020-11-23] MEDS ORDERED: Darbepoetin 100 MCG/0.5 ML SYRINGE SQ SCH (16:00)
[2020-11-23] MEDS: Insulin LISPRO 300 UNITS/3 ML VIAL SUBQ SCH ×2 (20:24→20:33)
[2020-11-23] MEDS: rOPINIRole 0.25 MG TABLET PO SCH (20:32)
[2020-11-23] MEDS: Ondansetron 4 MG/2 ML VIAL IVP PRN (22:47)
[2020-11-24] MEDS ORDERED: Melatonin 3 MG TABLET PO PRN (01:08)
[2020-11-24] MEDS: Insulin LISPRO 300 UNITS/3 ML VIAL SUBQ SCH ×4 (07:50→21:25)
[2020-11-24] MEDS: SODIUM ZIRCONIUM CYCLOSILICATE 5 GM POWD.PACK PO SCH ×2 (09:20→09:27)
[2020-11-24] MEDS: Metoprolol XL (24 HR) Succ 25 MG TAB.ER.24H PO SCH (09:20)
[2020-11-24 12:15] LABS: Basophils % 0.2 %; Eosinophils # 0.1 K/mcL (0.0-0.6); Eosinophils % 2.3 %; Hematocrit 23.1 % (37.5-50.1); Hemoglobin 7.4 g/dL (12.9-16.9); Immature Granulocytes % 0.2 % (0-4); Lymphocytes # 0.6 K/mcL (0.6-4.6); Lymphocytes % 11.6 %; Mean Corpuscular Hemoglobin 30.8 pg (28.0-33.3); Mean Corpuscular Volume 96.3 fL (83.0-100.0); Mean Platelet Volume 9.2 fL (9.4-12.4); Monocytes # 0.6 K/mcL (0.0-1.3); Monocytes % 10.3 %; Neutrophils # 4.2 K/mcL (1.6-8.9); Platelet Count 232 K/mcL (140-400); Red Cell Distribution Width 13.6 % (11.5-14.5); Segmented Neutrophils % 75.4 %; White Blood Count 5.5 K/mcL (4.3-11.1)
[2020-11-24] MEDS: Ondansetron 4 MG/2 ML VIAL IVP PRN ×2 (12:22→22:10)
[2020-11-24 12:33] LABS: Calcium 8.6 mg/dL (8.6-10.3); Potassium 5.9 mEq/L (3.5-5.1)
[2020-11-24 15:01] LABS: Calcium 8.4 mg/dL (8.6-10.3); Potassium 5.4 mEq/L (3.5-5.1)
[2020-11-24] MEDS ORDERED: carvediloL 6.25 MG TABLET PO SCH (17:00)
[2020-11-24] MEDS: Mirtazapine 15 MG TABLET PO SCH (21:24)
[2020-11-24] MEDS: rOPINIRole 0.25 MG TABLET PO SCH (21:24)
[2020-11-25] MEDS: Isosorbide MONOnitrate (24 HR) 30 MG TAB.ER.24H PO SCH (08:01)
[2020-11-25] MEDS: Insulin LISPRO 300 UNITS/3 ML VIAL SUBQ SCH ×4 (08:01→21:02)
[2020-11-25] MEDS: NIFEdipine XL (24 HR) 60 MG TAB.ER.24 PO SCH (08:02)
[2020-11-25] MEDS: Metoprolol XL (24 HR) Succ 25 MG TAB.ER.24H PO SCH (08:02)
[2020-11-25] MEDS: Ondansetron 4 MG/2 ML VIAL IVP PRN (08:13)
[2020-11-25] MEDS: SODIUM ZIRCONIUM CYCLOSILICATE 5 GM POWD.PACK PO SCH (08:14)
[2020-11-25 13:04] LABS: Basophils % 0.3 %; Eosinophils # 0.2 K/mcL (0.0-0.6); Eosinophils % 3.1 %; Hematocrit 26.9 % (37.5-50.1); Hemoglobin 8.6 g/dL (12.9-16.9); Immature Granulocytes % 0.2 % (0-4); Lymphocytes # 0.6 K/mcL (0.6-4.6); Lymphocytes % 9.3 %; Mean Corpuscular Hemoglobin 30.4 pg (28.0-33.3); Mean Corpuscular Volume 95.1 fL (83.0-100.0); Mean Platelet Volume 9.1 fL (9.4-12.4); Monocytes # 0.5 K/mcL (0.0-1.3); Monocytes % 8.1 %; Neutrophils # 4.9 K/mcL (1.6-8.9); Platelet Count 265 K/mcL (140-400); Red Blood Count 2.83 M/mcL (4.19-5.50); Red Cell Distribution Width 13.5 % (11.5-14.5); White Blood Count 6.2 K/mcL (4.3-11.1)
[2020-11-25 13:24] LABS: Calcium 8.5 mg/dL (8.6-10.3); Potassium 5.8 mEq/L (3.5-5.1)
[2020-11-25] MEDS: rOPINIRole 0.25 MG TABLET PO SCH (20:59)
[2020-11-25] MEDS: Mirtazapine 15 MG TABLET PO SCH (20:59)
[2020-11-26] MEDS: Ondansetron 4 MG/2 ML VIAL IVP PRN (03:55)
[2020-11-26 07:06] VITALS: PULSE 68; O2SAT 100
[2020-11-26] MEDS ORDERED: *HR* Heparin 10,000 UNIT/10 ML VIAL IV PRN ×2 (07:59)
[2020-11-26] MEDS ORDERED: 0.9 % Sodium Chloride 250 ML IVC PRN (07:59)
[2020-11-26] MEDS: Insulin LISPRO 300 UNITS/3 ML VIAL SUBQ SCH ×2 (08:40→14:41)
[2020-11-26 10:19] LABS: Basophils % 0.2 %; Eosinophils # 0.2 K/mcL (0.0-0.6); Eosinophils % 3.2 %; Hematocrit 22.6 % (37.5-50.1); Hemoglobin 7.4 g/dL (12.9-16.9); Immature Granulocytes % 0.4 % (0-4); Lymphocytes # 0.6 K/mcL (0.6-4.6); Lymphocytes % 10.5 %; Mean Corpuscular HGB Conc 32.7 g/dL (31.6-35.5); Mean Corpuscular Hemoglobin 30.5 pg (28.0-33.3); Mean Platelet Volume 9.1 fL (9.4-12.4); Monocytes # 0.5 K/mcL (0.0-1.3); Monocytes % 9.4 %; Neutrophils # 4.2 K/mcL (1.6-8.9); Platelet Count 244 K/mcL (140-400); Red Blood Count 2.43 M/mcL (4.19-5.50); Red Cell Distribution Width 13.5 % (11.5-14.5); Segmented Neutrophils % 76.3 %; White Blood Count 5.5 K/mcL (4.3-11.1)
[2020-11-26 10:42] LABS: Calcium 7.9 mg/dL (8.6-10.3); Potassium 5.6 mEq/L (3.5-5.1)
[2020-11-26] MEDS: Isosorbide MONOnitrate (24 HR) 30 MG TAB.ER.24H PO SCH (14:37)
[2020-11-26] MEDS: Metoprolol XL (24 HR) Succ 25 MG TAB.ER.24H PO SCH (14:38)
[2020-11-26] MEDS: NIFEdipine XL (24 HR) 60 MG TAB.ER.24 PO SCH (14:38)
[2020-11-26 15:11] VITALS: BP 156/89; TEMP 97.8
[2020-11-26] MEDS ORDERED: hydrALAZINE 10 MG TABLET PO SCH (21:00)
[2020-11-27] MEDS ORDERED: carvediloL 6.25 MG TABLET PO SCH (08:00)
== END 2020-11-26 17:20 | disposition home health service (06) | DRG 640 ==
LOC: CDU 01:59 → EMEROOARM 01:59 → CDU 06:13 → 2NENU 11-24 21:26
PROVIDERS: ADMIT Internal Medicine; ATTEND Internal Medicine

== ENCOUNTER 2021-02-10 19:37 | Inpatient (IN) ==
[2021-02-10 23:29] LABS: INR 1.1; Prothrombin Time 12.5 Seconds (9.4-12.1)
[2021-02-10 23:31] LABS: Activated Partial Thrombo Time 35.6 Seconds (26.0-36.0)
[2021-02-10 23:33] LABS: Basophils % 0.6 %; Eosinophils # 0.3 K/mcL (0.0-0.6); Eosinophils % 3.9 %; Hematocrit 31.5 % (37.5-50.1); Hemoglobin 10.3 g/dL (12.9-16.9); Immature Granulocytes % 0.2 % (0-4); Lymphocytes # 1.1 K/mcL (0.6-4.6); Lymphocytes % 17.1 %; Mean Corpuscular HGB Conc 32.7 g/dL (31.6-35.5); Mean Corpuscular Hemoglobin 31.2 pg (28.0-33.3); Mean Corpuscular Volume 95.5 fL (83.0-100.0); Monocytes # 0.6 K/mcL (0.0-1.3); Monocytes % 8.6 %; Neutrophils # 4.5 K/mcL (1.6-8.9); Platelet Count 205 K/mcL (140-400); Red Cell Distribution Width 14.9 % (11.5-14.5); Segmented Neutrophils % 69.6 %; White Blood Count 6.4 K/mcL (4.3-11.1)
[2021-02-10 23:43] LABS: Calcium 9.2 mg/dL (8.6-10.3); Potassium 6.2 mEq/L (3.5-5.1)
[2021-02-10 23:57] LABS: Troponin I 0.05 ng/mL (< 0.04)
[2021-02-10] MEDS ORDERED: Aspirin 325 MG TABLET PO ONE (23:57)
[2021-02-10] MEDS ORDERED: Albuterol 2.5 MG/3 ML NEBULIZER IH ONE (23:57)
[2021-02-11] MEDS: SODIUM ZIRCONIUM CYCLOSILICATE 5 GM POWD.PACK PO ONE (00:18)
[2021-02-11] MEDS ORDERED: Doxycycline 100 MG CAPSULE PO ONE (00:23)
[2021-02-11 01:15] LABS: Influenza A PCR Negative (Negative); Influenza B PCR Negative (Negative); Resp. Syncytial Virus PCR Negative (Negative)
[2021-02-11 01:19] LABS: SARS-CoV-2 by PCR (In House) Negative (Negative)
[2021-02-11] MEDS ORDERED: Calcium Gluconate 1gm/50mL 1 GM/50 ML BAG IVPB PRN (01:36)
[2021-02-11] MEDS ORDERED: Naloxone 0.4 MG/ML INJ IVP PRN (02:46)
[2021-02-11 04:39] LABS: Hematocrit 30.6 % (37.5-50.1); Mean Corpuscular HGB Conc 32.7 g/dL (31.6-35.5); Mean Corpuscular Hemoglobin 31.5 pg (28.0-33.3); Mean Corpuscular Volume 96.5 fL (83.0-100.0); Mean Platelet Volume 9.2 fL (9.4-12.4); Platelet Count 199 K/mcL (140-400); Red Blood Count 3.17 M/mcL (4.19-5.50); Red Cell Distribution Width 14.9 % (11.5-14.5); White Blood Count 5.6 K/mcL (4.3-11.1)
[2021-02-11 04:47] LABS: INR 1.1; Prothrombin Time 12.2 Seconds (9.4-12.1)
[2021-02-11 05:04] LABS: Albumin 3.3 g/dL (3.5-5.7); Bilirubin,Total 0.3 mg/dL (0.3-1.0); Globulin 3.2 g/dL (2.4-3.5); Magnesium 1.8 mg/dL (1.6-2.6); Phosphorous 6.2 mg/dL (2.7-4.5); Potassium 6.3 mEq/L (3.5-5.1); Total Protein 6.5 g/dL (6.4-8.9)
[2021-02-11] MEDS: Doxycycline 100 MG CAPSULE PO SCH ×2 (08:41→20:27)
[2021-02-11] MEDS ORDERED: 0.9 % Sodium Chloride 250 ML IVC PRN (08:53)
[2021-02-11] MEDS ORDERED: *HR* Heparin 10,000 UNIT/10 ML VIAL IV PRN (08:53)
[2021-02-11] MEDS ORDERED: 0.9 % Sodium Chloride 1,000 ML PRIME SCH (09:00)
[2021-02-11 13:05] LABS: Hepatitis B Surface Antibody < 3.10 mIU/mL
[2021-02-11 13:16] LABS: Hepatitis B Surface Antigen Nonreactive (Nonreactive)
[2021-02-11] MEDS ORDERED: Nitroglycerin 0.4 MG TAB.SUBL SL PRN (15:09)
[2021-02-11] MEDS ORDERED: Dextrose Gel 15 GM/37.5 ML TUBE PO PRN ×2 (15:10)
[2021-02-11] MEDS ORDERED: D5% in Water 1,000 ML IVC PRN (15:10)
[2021-02-11] MEDS ORDERED: *HR* Dextrose 50 % in Water (Syg) 50 ML SYRINGE IVP PRN (15:10)
[2021-02-11] MEDS ORDERED: Ipratropium/Albuterol Neb 3 ML IH PRN (15:25)
[2021-02-11] MEDS: Insulin LISPRO 300 UNITS/3 ML VIAL SUBQ SCH ×2 (17:40→20:27)
[2021-02-11] MEDS: Clotrimazole 1% CRM 15 GM TUBE TP SCH ×2 (17:43→20:31)
[2021-02-11] MEDS: carvediloL 6.25 MG TABLET PO SCH (20:26)
[2021-02-11] MEDS: hydrALAZINE 10 MG TABLET PO SCH (20:26)
[2021-02-11] MEDS: Gabapentin 100 MG CAPSULE PO SCH (20:26)
[2021-02-11] MEDS: Mirtazapine 15 MG TABLET PO SCH (20:26)
[2021-02-12] MEDS: Insulin LISPRO 300 UNITS/3 ML VIAL SUBQ SCH ×4 (07:43→21:38)
[2021-02-12] MEDS: Renal Vitamin 1 CAP CAPSULE PO SCH (08:31)
[2021-02-12] MEDS: Doxycycline 100 MG CAPSULE PO SCH (08:31)
[2021-02-12] MEDS: hydrALAZINE 10 MG TABLET PO SCH ×2 (08:37→21:35)
[2021-02-12] MEDS: NIFEdipine XL (24 HR) 60 MG TAB.ER.24 PO SCH (08:37)
[2021-02-12] MEDS: carvediloL 6.25 MG TABLET PO SCH ×2 (08:37→21:35)
[2021-02-12] MEDS: Isosorbide MONOnitrate (24 HR) 30 MG TAB.ER.24H PO SCH (08:37)
[2021-02-12] MEDS: Clotrimazole 1% CRM 15 GM TUBE TP SCH (08:39)
[2021-02-12] MEDS ORDERED: 0.9 % Sodium Chloride 250 ML IVC PRN (11:32)
[2021-02-12] MEDS ORDERED: *HR* Heparin 10,000 UNIT/10 ML VIAL IV PRN (11:32)
[2021-02-12 13:27] LABS: Basophils % 0.7 %; Eosinophils # 0.2 K/mcL (0.0-0.6); Eosinophils % 3.9 %; Hematocrit 32.9 % (37.5-50.1); Hemoglobin 10.6 g/dL (12.9-16.9); Immature Granulocytes % 0.2 % (0-4); Lymphocytes # 0.8 K/mcL (0.6-4.6); Mean Corpuscular HGB Conc 32.2 g/dL (31.6-35.5); Mean Corpuscular Hemoglobin 30.6 pg (28.0-33.3); Mean Corpuscular Volume 95.1 fL (83.0-100.0); Mean Platelet Volume 8.7 fL (9.4-12.4); Monocytes # 0.4 K/mcL (0.0-1.3); Monocytes % 8.5 %; Neutrophils # 3.2 K/mcL (1.6-8.9); Platelet Count 182 K/mcL (140-400); Red Blood Count 3.46 M/mcL (4.19-5.50); Red Cell Distribution Width 14.6 % (11.5-14.5); Segmented Neutrophils % 69.7 %; White Blood Count 4.6 K/mcL (4.3-11.1)
[2021-02-12] MEDS: SODIUM ZIRCONIUM CYCLOSILICATE 5 GM POWD.PACK PO ONE (15:33)
[2021-02-12 17:34] LABS: Calcium 9.3 mg/dL (8.6-10.3); Magnesium 1.7 mg/dL (1.6-2.6); Phosphorous 6.2 mg/dL (2.7-4.5); Potassium 5.8 mEq/L (3.5-5.1)
[2021-02-12] MEDS ORDERED: Doxycycline 100 MG in 0.9 % Sodium Chloride Mini Bag 100 ML IVPB SCH (20:00)
[2021-02-12] MEDS: Doxycycline 100 MG in 0.9 % Sodium Chloride Mini Bag 100 ML IVPB SCH (21:32)
[2021-02-12] MEDS: Mirtazapine 15 MG TABLET PO SCH (21:35)
[2021-02-12] MEDS: Gabapentin 100 MG CAPSULE PO SCH (21:35)
[2021-02-13] MEDS: Clotrimazole 1% CRM 15 GM TUBE TP SCH ×3 (01:20→20:32)
[2021-02-13 01:27] LABS: Basophils % 0.6 %; Eosinophils # 0.2 K/mcL (0.0-0.6); Eosinophils % 4.9 %; Hematocrit 34.3 % (37.5-50.1); Hemoglobin 11.2 g/dL (12.9-16.9); Immature Granulocytes % 0.2 % (0-4); Lymphocytes # 0.9 K/mcL (0.6-4.6); Lymphocytes % 17.7 %; Mean Corpuscular HGB Conc 32.7 g/dL (31.6-35.5); Mean Corpuscular Hemoglobin 31.2 pg (28.0-33.3); Mean Corpuscular Volume 95.5 fL (83.0-100.0); Mean Platelet Volume 9.1 fL (9.4-12.4); Monocytes # 0.5 K/mcL (0.0-1.3); Monocytes % 10.1 %; Neutrophils # 3.2 K/mcL (1.6-8.9); Platelet Count 194 K/mcL (140-400); Red Blood Count 3.59 M/mcL (4.19-5.50); Red Cell Distribution Width 14.6 % (11.5-14.5); Segmented Neutrophils % 66.5 %; White Blood Count 4.9 K/mcL (4.3-11.1)
[2021-02-13 01:53] LABS: Calcium 8.8 mg/dL (8.6-10.3); Magnesium 1.7 mg/dL (1.6-2.6); Phosphorous 7.3 mg/dL (2.7-4.5); Potassium 6.2 mEq/L (3.5-5.1)
[2021-02-13] MEDS ORDERED: Albumin 25% 25gram/100mL 25 GM/100 ML IV.SOLN IVPB ONE (02:34)
[2021-02-13] MEDS ORDERED: *HR* Heparin 10,000 UNIT/10 ML VIAL IV PRN (08:03)
[2021-02-13] MEDS ORDERED: Albumin 25% 25gram/100mL 25 GM/100 ML IV.SOLN IVPB PRN (08:03)
[2021-02-13] MEDS ORDERED: 0.9 % Sodium Chloride 250 ML IVC PRN (08:03)
[2021-02-13] MEDS: Insulin LISPRO 300 UNITS/3 ML VIAL SUBQ SCH ×4 (08:16→20:32)
[2021-02-13 08:43] LABS: Acinetobacter baumannii by PCR Not Detected (Not Detect); Candida albicans by PCR Not Detected (Not Detect); Candida glabrata by PCR Not Detected (Not Detect); Candida krusei by PCR Not Detected (Not Detect); Candida parapsilosis by PCR Not Detected (Not Detect); Candida tropicalis by PCR Not Detected (Not Detect); Enterobacter cloacae Cmplx PCR Not Detected (Not Detect); Enterobacteriaceae by PCR Not Detected (Not Detect); Enterococcus by PCR Not Detected (Not Detect); Escherichia coli by PCR Not Detected (Not Detect); Klebsiella oxytoca by PCR Not Detected (Not Detect); Klebsiella pneumoniae by PCR Not Detected (Not Detect); Proteus by PCR Not Detected (Not Detect); Pseudomonas aeruginosa by PCR Not Detected (Not Detect); Serratia marcescens by PCR Not Detected (Not Detect); Staphylococcus aureus by PCR Not Detected (Not Detect); Staphylococcus by PCR DETECTED (Not Detect); Streptococcus agalactiae(B)PCR Not Detected (Not Detect); Streptococcus by PCR Not Detected (Not Detect); Streptococcus pneumoniae PCR Not Detected (Not Detect); Streptococcus pyogenes (A) PCR Not Detected (Not Detect); mecA Methicillin-Resist Gene DETECTED (Not Detect)
[2021-02-13] MEDS: Isosorbide MONOnitrate (24 HR) 30 MG TAB.ER.24H PO SCH (08:54)
[2021-02-13] MEDS: Renal Vitamin 1 CAP CAPSULE PO SCH (08:54)
[2021-02-13] MEDS: carvediloL 6.25 MG TABLET PO SCH ×2 (08:55→20:32)
[2021-02-13] MEDS: hydrALAZINE 10 MG TABLET PO SCH ×2 (08:55→20:32)
[2021-02-13] MEDS: Doxycycline 100 MG in 0.9 % Sodium Chloride Mini Bag 100 ML IVPB SCH (08:55)
[2021-02-13] MEDS ORDERED: Ergocalciferol (VIT D2) 50,000 UNIT (1.25MG) CAP PO SCH (09:00)
[2021-02-13] MEDS ORDERED: Perflutren Lipid Microsphere 1.3 ML in 0.9 % Sodium Chloride 8.7 ML IVP PRN (09:35)
[2021-02-13] MEDS ORDERED: Vancomycin 1,250 MG/262.5 ML IV.SOLN IVPB ONE (15:00)
[2021-02-13] MEDS: NIFEdipine XL (24 HR) 60 MG TAB.ER.24 PO SCH (16:17)
[2021-02-13] MEDS: Gabapentin 100 MG CAPSULE PO SCH (20:32)
[2021-02-13] MEDS: Mirtazapine 15 MG TABLET PO SCH (20:32)
[2021-02-14 05:09] LABS: Basophils % 0.7 %; Eosinophils # 0.2 K/mcL (0.0-0.6); Eosinophils % 4.2 %; Hematocrit 34.3 % (37.5-50.1); Immature Granulocytes % 0.2 % (0-4); Lymphocytes # 0.7 K/mcL (0.6-4.6); Mean Corpuscular HGB Conc 32.1 g/dL (31.6-35.5); Mean Corpuscular Volume 96.6 fL (83.0-100.0); Mean Platelet Volume 9.3 fL (9.4-12.4); Monocytes # 0.5 K/mcL (0.0-1.3); Monocytes % 11.6 %; Neutrophils # 3.1 K/mcL (1.6-8.9); Platelet Count 186 K/mcL (140-400); Red Blood Count 3.55 M/mcL (4.19-5.50); Red Cell Distribution Width 14.6 % (11.5-14.5); Segmented Neutrophils % 67.3 %; White Blood Count 4.6 K/mcL (4.3-11.1)
[2021-02-14 05:29] LABS: Calcium 8.9 mg/dL (8.6-10.3); Magnesium 1.7 mg/dL (1.6-2.6); Phosphorous 5.6 mg/dL (2.7-4.5); Potassium 4.6 mEq/L (3.5-5.1)
[2021-02-14] MEDS: Insulin LISPRO 300 UNITS/3 ML VIAL SUBQ SCH ×4 (07:51→21:40)
[2021-02-14] MEDS: Renal Vitamin 1 CAP CAPSULE PO SCH (08:52)
[2021-02-14] MEDS: carvediloL 6.25 MG TABLET PO SCH ×2 (08:52→16:42)
[2021-02-14] MEDS: Isosorbide MONOnitrate (24 HR) 30 MG TAB.ER.24H PO SCH (08:53)
[2021-02-14] MEDS: hydrALAZINE 10 MG TABLET PO SCH ×2 (08:53→21:46)
[2021-02-14] MEDS: NIFEdipine XL (24 HR) 60 MG TAB.ER.24 PO SCH (08:53)
[2021-02-14] MEDS: Clotrimazole 1% CRM 15 GM TUBE TP SCH ×2 (08:57→21:48)
[2021-02-14] MEDS ORDERED: cefTRIAXone 2,000 MG in 0.9 % Sodium Chloride Mini Bag 100 ML IVPB SCH (13:00)
[2021-02-14] MEDS ORDERED: Vancomycin 500 MG in 0.9 % Sodium Chloride Mini Bag 100 ML IVPB ONE (16:00)
[2021-02-14] MEDS: cefTRIAXone 2,000 MG in 0.9 % Sodium Chloride Mini Bag 100 ML IVPB SCH (16:43)
[2021-02-14] MEDS: Gabapentin 100 MG CAPSULE PO SCH (21:45)
[2021-02-14] MEDS: Mirtazapine 15 MG TABLET PO SCH (21:46)
[2021-02-15 04:38] LABS: Basophils % 0.5 %; Eosinophils # 0.3 K/mcL (0.0-0.6); Eosinophils % 4.3 %; Hematocrit 32.6 % (37.5-50.1); Hemoglobin 10.4 g/dL (12.9-16.9); Immature Granulocytes % 0.2 % (0-4); Lymphocytes # 1.1 K/mcL (0.6-4.6); Lymphocytes % 18.1 %; Mean Corpuscular HGB Conc 31.9 g/dL (31.6-35.5); Mean Corpuscular Hemoglobin 30.9 pg (28.0-33.3); Mean Corpuscular Volume 96.7 fL (83.0-100.0); Mean Platelet Volume 9.4 fL (9.4-12.4); Monocytes # 0.6 K/mcL (0.0-1.3); Monocytes % 10.2 %; Neutrophils # 3.9 K/mcL (1.6-8.9); Platelet Count 188 K/mcL (140-400); Red Blood Count 3.37 M/mcL (4.19-5.50); Segmented Neutrophils % 66.7 %; White Blood Count 5.9 K/mcL (4.3-11.1)
[2021-02-15 04:58] LABS: Calcium 8.9 mg/dL (8.6-10.3); Magnesium 1.7 mg/dL (1.6-2.6); Potassium 5.3 mEq/L (3.5-5.1)
[2021-02-15] MEDS: carvediloL 6.25 MG TABLET PO SCH ×2 (08:04→18:45)
[2021-02-15] MEDS: Isosorbide MONOnitrate (24 HR) 30 MG TAB.ER.24H PO SCH (08:04)
[2021-02-15] MEDS: Renal Vitamin 1 CAP CAPSULE PO SCH (08:04)
[2021-02-15] MEDS: hydrALAZINE 10 MG TABLET PO SCH ×2 (08:05→20:26)
[2021-02-15] MEDS: NIFEdipine XL (24 HR) 60 MG TAB.ER.24 PO SCH (08:05)
[2021-02-15] MEDS: Insulin LISPRO 300 UNITS/3 ML VIAL SUBQ SCH ×4 (08:16→19:38)
[2021-02-15] MEDS: SODIUM ZIRCONIUM CYCLOSILICATE 5 GM POWD.PACK PO SCH (08:17)
[2021-02-15] MEDS: Clotrimazole 1% CRM 15 GM TUBE TP SCH ×2 (08:18→20:26)
[2021-02-15] MEDS ORDERED: *HR* Heparin 10,000 UNIT/10 ML VIAL IV PRN (08:31)
[2021-02-15] MEDS ORDERED: 0.9 % Sodium Chloride 250 ML IVC PRN (08:31)
[2021-02-15] MEDS: cefTRIAXone 2,000 MG in 0.9 % Sodium Chloride Mini Bag 100 ML IVPB SCH (15:20)
[2021-02-15] MEDS ORDERED: Vancomycin 1,250 MG/262.5 ML IV.SOLN IVPB ONE (16:00)
[2021-02-15] MEDS: Gabapentin 100 MG CAPSULE PO SCH (20:25)
[2021-02-15] MEDS: Mirtazapine 15 MG TABLET PO SCH (20:26)
[2021-02-16] MEDS ORDERED: *HR* Promethazine 25 MG/ML VIAL IM ONE (01:44)
[2021-02-16 05:08] LABS: Basophils % 0.6 %; Eosinophils # 0.2 K/mcL (0.0-0.6); Eosinophils % 3.9 %; Hematocrit 32.6 % (37.5-50.1); Hemoglobin 10.2 g/dL (12.9-16.9); Immature Granulocytes % 0.2 % (0-4); Lymphocytes # 0.9 K/mcL (0.6-4.6); Lymphocytes % 16.4 %; Mean Corpuscular HGB Conc 31.3 g/dL (31.6-35.5); Mean Corpuscular Hemoglobin 30.4 pg (28.0-33.3); Mean Corpuscular Volume 97.3 fL (83.0-100.0); Mean Platelet Volume 9.6 fL (9.4-12.4); Monocytes # 0.5 K/mcL (0.0-1.3); Monocytes % 10.4 %; Neutrophils # 3.5 K/mcL (1.6-8.9); Platelet Count 163 K/mcL (140-400); Red Blood Count 3.35 M/mcL (4.19-5.50); Segmented Neutrophils % 68.5 %; White Blood Count 5.2 K/mcL (4.3-11.1)
[2021-02-16 05:20] LABS: Magnesium 1.7 mg/dL (1.6-2.6); Phosphorous 5.7 mg/dL (2.7-4.5); Potassium 5.4 mEq/L (3.5-5.1)
[2021-02-16] MEDS: Insulin LISPRO 300 UNITS/3 ML VIAL SUBQ SCH ×4 (08:49→20:53)
[2021-02-16] MEDS: Renal Vitamin 1 CAP CAPSULE PO SCH (08:50)
[2021-02-16] MEDS: NIFEdipine XL (24 HR) 60 MG TAB.ER.24 PO SCH (08:50)
[2021-02-16] MEDS: hydrALAZINE 10 MG TABLET PO SCH ×2 (08:50→20:38)
[2021-02-16] MEDS: carvediloL 6.25 MG TABLET PO SCH ×2 (08:51→17:06)
[2021-02-16] MEDS: Isosorbide MONOnitrate (24 HR) 30 MG TAB.ER.24H PO SCH (08:51)
[2021-02-16] MEDS: SODIUM ZIRCONIUM CYCLOSILICATE 5 GM POWD.PACK PO SCH (09:01)
[2021-02-16] MEDS ORDERED: 0.9 % Sodium Chloride 250 ML IVC PRN (11:05)
[2021-02-16] MEDS: Clotrimazole 1% CRM 15 GM TUBE TP SCH ×2 (11:50→20:45)
[2021-02-16] MEDS: cefTRIAXone 2,000 MG in 0.9 % Sodium Chloride Mini Bag 100 ML IVPB SCH (16:58)
[2021-02-16] MEDS: Gabapentin 100 MG CAPSULE PO SCH (20:38)
[2021-02-16] MEDS: Mirtazapine 15 MG TABLET PO SCH (20:43)
[2021-02-17 04:37] LABS: Basophils % 0.6 %; Eosinophils # 0.3 K/mcL (0.0-0.6); Eosinophils % 3.8 %; Hematocrit 34.4 % (37.5-50.1); Hemoglobin 10.9 g/dL (12.9-16.9); Immature Granulocytes % 0.3 % (0-4); Lymphocytes # 0.9 K/mcL (0.6-4.6); Lymphocytes % 13.3 %; Mean Corpuscular HGB Conc 31.7 g/dL (31.6-35.5); Mean Corpuscular Hemoglobin 30.8 pg (28.0-33.3); Mean Corpuscular Volume 97.2 fL (83.0-100.0); Monocytes # 0.7 K/mcL (0.0-1.3); Monocytes % 10.7 %; Neutrophils # 4.6 K/mcL (1.6-8.9); Platelet Count 174 K/mcL (140-400); Red Blood Count 3.54 M/mcL (4.19-5.50); Red Cell Distribution Width 15.2 % (11.5-14.5); Segmented Neutrophils % 71.3 %; White Blood Count 6.5 K/mcL (4.3-11.1)
[2021-02-17 04:54] LABS: Magnesium 1.8 mg/dL (1.6-2.6); Potassium 5.6 mEq/L (3.5-5.1)
[2021-02-17] MEDS ORDERED: *HR* Dextrose 50 % in Water (Syg) 50 ML SYRINGE IVP ONE (07:42)
[2021-02-17] MEDS ORDERED: Insulin Human Regular 10 UNIT in 0.9 % Sodium Chloride 10 ML IV ONE (07:43)
[2021-02-17] MEDS: Insulin LISPRO 300 UNITS/3 ML VIAL SUBQ SCH ×4 (08:00→18:09)
[2021-02-17] MEDS: carvediloL 6.25 MG TABLET PO SCH ×2 (09:00→15:18)
[2021-02-17] MEDS: NIFEdipine XL (24 HR) 60 MG TAB.ER.24 PO SCH (09:00)
[2021-02-17] MEDS: SODIUM ZIRCONIUM CYCLOSILICATE 5 GM POWD.PACK PO SCH (09:00)
[2021-02-17] MEDS: Renal Vitamin 1 CAP CAPSULE PO SCH (09:11)
[2021-02-17] MEDS: Isosorbide MONOnitrate (24 HR) 30 MG TAB.ER.24H PO SCH (09:11)
[2021-02-17] MEDS: hydrALAZINE 10 MG TABLET PO SCH ×2 (09:12→20:20)
[2021-02-17] MEDS: Calcium Gluconate 1gm/50mL 1 GM/50 ML BAG IVPB SCH (09:16)
[2021-02-17] MEDS: Clotrimazole 1% CRM 15 GM TUBE TP SCH ×2 (15:17→20:20)
[2021-02-17] MEDS: cefTRIAXone 2,000 MG in 0.9 % Sodium Chloride Mini Bag 100 ML IVPB SCH (15:20)
[2021-02-17] MEDS: Gabapentin 100 MG CAPSULE PO SCH (20:19)
[2021-02-17] MEDS: Mirtazapine 15 MG TABLET PO SCH (20:19)
[2021-02-17] MEDS: Lactobacillus 1 EACH CAP.SPRINK PO SCH (20:20)
[2021-02-18 04:53] LABS: Basophils % 0.4 %; Eosinophils # 0.3 K/mcL (0.0-0.6); Hematocrit 33.1 % (37.5-50.1); Hemoglobin 10.8 g/dL (12.9-16.9); Immature Granulocytes % 0.3 % (0-4); Lymphocytes # 0.9 K/mcL (0.6-4.6); Lymphocytes % 11.7 %; Mean Corpuscular HGB Conc 32.6 g/dL (31.6-35.5); Mean Corpuscular Hemoglobin 31.7 pg (28.0-33.3); Mean Corpuscular Volume 97.1 fL (83.0-100.0); Mean Platelet Volume 9.3 fL (9.4-12.4); Monocytes # 0.6 K/mcL (0.0-1.3); Monocytes % 7.9 %; Neutrophils # 5.9 K/mcL (1.6-8.9); Platelet Count 166 K/mcL (140-400); Red Blood Count 3.41 M/mcL (4.19-5.50); Segmented Neutrophils % 75.7 %; White Blood Count 7.8 K/mcL (4.3-11.1)
[2021-02-18 05:12] LABS: Calcium 9.1 mg/dL (8.6-10.3); Magnesium 1.8 mg/dL (1.6-2.6); Phosphorous 5.2 mg/dL (2.7-4.5); Potassium 6.2 mEq/L (3.5-5.1)
[2021-02-18] MEDS: Calcium Gluconate 1gm/50mL 1 GM/50 ML BAG IVPB SCH (07:14)
[2021-02-18 08:04] VITALS: O2SAT 95
[2021-02-18] MEDS: Insulin LISPRO 300 UNITS/3 ML VIAL SUBQ SCH ×3 (08:09→18:33)
[2021-02-18] MEDS: SODIUM ZIRCONIUM CYCLOSILICATE 5 GM POWD.PACK PO SCH (08:11)
[2021-02-18] MEDS: Isosorbide MONOnitrate (24 HR) 30 MG TAB.ER.24H PO SCH (08:12)
[2021-02-18] MEDS: NIFEdipine XL (24 HR) 60 MG TAB.ER.24 PO SCH (08:12)
[2021-02-18] MEDS: carvediloL 6.25 MG TABLET PO SCH ×2 (08:12→17:50)
[2021-02-18] MEDS: hydrALAZINE 10 MG TABLET PO SCH (08:12)
[2021-02-18] MEDS: Renal Vitamin 1 CAP CAPSULE PO SCH (08:12)
[2021-02-18] MEDS: Lactobacillus 1 EACH CAP.SPRINK PO SCH (08:12)
[2021-02-18] MEDS: Clotrimazole 1% CRM 15 GM TUBE TP SCH (08:13)
[2021-02-18 08:43] LABS: Estimated Average Glucose 128 mg/dl; Hemoglobin A1C 6.1 %
[2021-02-18] MEDS ORDERED: 0.9 % Sodium Chloride 250 ML IVC PRN (09:27)
[2021-02-18 15:26] VITALS: TEMP 98.1
[2021-02-18] MEDS ORDERED: Vancomycin 1,250 MG/262.5 ML IV.SOLN IVPB ONE (16:00)
[2021-02-18 16:14] VITALS: BP 128/52; PULSE 79
[2021-02-18] MEDS: cefTRIAXone 2,000 MG in 0.9 % Sodium Chloride Mini Bag 100 ML IVPB SCH (17:53)
[2021-02-18] MEDS ORDERED: cefTRIAXone 2,000 MG in Water for inj. (sterile) 20 ML IVP SCH (18:00)
== END 2021-02-18 18:38 | disposition left against medical advice (07) | DRG 871 ==
LOC: 2ANU 19:37 → EMEROOARM 19:37 → SUATTDRO 02-11 08:46 → 2ANU 02-11 12:29 → SUATTDRO 02-12 11:08
PROVIDERS: ADMIT Family Medicine; ATTEND Pharmacist

== ENCOUNTER 2021-03-03 08:44 | Observation (INO) ==
[2021-03-03] MEDS ORDERED: Isovue-370 500 ML BOTTLE IVP ONE (08:52)
[2021-03-03 09:04] LABS: Hematocrit 37.6 % (37.5-50.1); Hemoglobin 12.4 g/dL (12.9-16.9); Mean Corpuscular Hemoglobin 31.2 pg (28.0-33.3); Mean Corpuscular Volume 94.5 fL (83.0-100.0); Platelet Count 203 K/mcL (140-400); Red Blood Count 3.98 M/mcL (4.19-5.50); Red Cell Distribution Width 14.8 % (11.5-14.5); White Blood Count 10.6 K/mcL (4.3-11.1)
[2021-03-03 09:16] LABS: Activated Partial Thrombo Time 33.1 Seconds (26.0-36.0)
[2021-03-03 09:26] LABS: Calcium 9.5 mg/dL (8.6-10.3); Potassium 6.4 mEq/L (3.5-5.1)
[2021-03-03 09:36] LABS: Troponin I 0.04 ng/mL (< 0.04)
[2021-03-03 09:57] LABS: Bacteria,Urine Few per hpf (None-Few); Bilirubin,Urine Negative (Negative); Blood,Urine Moderate (Negative); Clarity,Urine Turbid (Clear); Color,Urine Light-Yellow (Yellow); Glucose,Urine (UA) 300 mg/dL (Normal); Ketones,Urine Negative (Negative); Leukocyte Esterase,Urine Moderate (Negative); Nitrite,Urine Negative (Negative); Protein,Urine >=300 mg/dL (Neg-Trace); RBC,Urine 50-100 per hpf (0-3); Specific Gravity,Urine 1.013 (1.010-1.025); Urobilinogen,Urine Normal (Normal); WBC,Urine TNTC per hpf (0-3)
[2021-03-03] MEDS ORDERED: Insulin Human Regular 10 UNIT in 0.9 % Sodium Chloride 10 ML IV ONE (11:38)
[2021-03-03] MEDS ORDERED: Calcium Gluconate 1,000 MG/10 ML VIAL IVP ONE (11:41)
[2021-03-03] MEDS ORDERED: *HR* Dextrose 50 % in Water (Syg) 50 ML SYRINGE IVP ONE (11:42)
[2021-03-03] MEDS ORDERED: Calcium Gluconate 1gm/50mL 1 GM/50 ML BAG IVPB ONE (11:55)
[2021-03-03] MEDS ORDERED: Acetaminophen 325 MG TABLET PO PRN (12:20)
[2021-03-03] MEDS ORDERED: Ondansetron 4 MG/2 ML VIAL IVP PRN (12:20)
[2021-03-03] MEDS ORDERED: Aspirin 325 MG TABLET PO ONE (12:24)
[2021-03-03] MEDS ORDERED: SODIUM ZIRCONIUM CYCLOSILICATE 5 GM POWD.PACK PO ONE (14:15)
[2021-03-03] MEDS ORDERED: *HR* Dextrose 50 % in Water (Syg) 50 ML SYRINGE ONE (15:07)
[2021-03-03] MEDS ORDERED: *HR* Dextrose 50 % in Water (Syg) 50 ML SYRINGE IVP PRN (15:13)
[2021-03-03] MEDS ORDERED: Dextrose Gel 15 GM/37.5 ML TUBE PO PRN ×2 (15:13)
[2021-03-03] MEDS ORDERED: D5% in Water 1,000 ML IVC PRN (15:13)
[2021-03-03] MEDS: Insulin LISPRO 300 UNITS/3 ML VIAL SUBQ SCH ×2 (15:30→20:49)
[2021-03-03 15:48] LABS: Calcium 9.2 mg/dL (8.6-10.3); Potassium 5.6 mEq/L (3.5-5.1)
[2021-03-03 15:49] LABS: Troponin I 0.03 ng/mL (< 0.04)
[2021-03-03] MEDS: *HR* Heparin 5,000 UNIT/ML VIAL SQ SCH ×2 (16:28→21:59)
[2021-03-03] MEDS: cefTRIAXone 1,000 MG in Water for inj. (sterile) 10 ML IVP SCH (16:38)
[2021-03-03] MEDS ORDERED: Acetaminophen IV 1,000 MG/100 ML BAG IVPB ONE (18:13)
[2021-03-03] MEDS ORDERED: Ipratropium/Albuterol Neb 3 ML IH PRN (20:30)
[2021-03-03] MEDS: Gabapentin 100 MG CAPSULE PO SCH (20:48)
[2021-03-04] MEDS ORDERED: *HR* OxyCODONE Immed Rel 5 MG TABLET PO ONE (01:34)
[2021-03-04 02:22] LABS: Hematocrit 34.4 % (37.5-50.1); Hemoglobin 11.2 g/dL (12.9-16.9); Mean Corpuscular HGB Conc 32.6 g/dL (31.6-35.5); Mean Corpuscular Hemoglobin 31.2 pg (28.0-33.3); Mean Corpuscular Volume 95.8 fL (83.0-100.0); Mean Platelet Volume 9.1 fL (9.4-12.4); Platelet Count 200 K/mcL (140-400); Red Blood Count 3.59 M/mcL (4.19-5.50); Red Cell Distribution Width 14.9 % (11.5-14.5)
[2021-03-04 02:35] LABS: Calcium 8.9 mg/dL (8.6-10.3); Chol/HDL Ratio 3.2 (0-4.9)
[2021-03-04 03:04] LABS: Estimated Average Glucose 137 mg/dl; Hemoglobin A1C 6.4 %
[2021-03-04] MEDS: *HR* Heparin 5,000 UNIT/ML VIAL SQ SCH ×3 (05:39→21:19)
[2021-03-04] MEDS ORDERED: *HR* HYDROmorphone (PF) 1 MG/ML SYRINGE IVP ONE (06:48)
[2021-03-04] MEDS: Insulin LISPRO 300 UNITS/3 ML VIAL SUBQ SCH ×4 (07:51→20:38)
[2021-03-04] MEDS: Aspirin 81 MG TAB.CHEW PO SCH (07:52)
[2021-03-04] MEDS: cefTRIAXone 1,000 MG in Water for inj. (sterile) 10 ML IVP SCH (07:52)
[2021-03-04] MEDS: SODIUM ZIRCONIUM CYCLOSILICATE 5 GM POWD.PACK PO SCH (07:55)
[2021-03-04] MEDS ORDERED: 0.9 % Sodium Chloride 250 ML IVC PRN (08:30)
[2021-03-04] MEDS ORDERED: *HR* Heparin 10,000 UNIT/10 ML VIAL IV PRN (08:30)
[2021-03-04] MEDS ORDERED: 0.9 % Sodium Chloride 1,000 ML PRIME SCH (08:30)
[2021-03-04] MEDS ORDERED: E-Z-HD (BARIUM SULF) SUSPENSION PO ONE (15:29)
[2021-03-04] MEDS ORDERED: E-Z-PAQUE (BARIUM SULF) SUSP 1 BOTTLE PO ONE (15:29)
[2021-03-04] MEDS: Gabapentin 100 MG CAPSULE PO SCH (21:19)
[2021-03-05 04:41] LABS: Basophils % 0.6 %; Eosinophils # 0.2 K/mcL (0.0-0.6); Eosinophils % 4.1 %; Hematocrit 31.8 % (37.5-50.1); Hemoglobin 10.3 g/dL (12.9-16.9); Immature Granulocytes % 0.2 % (0-4); Lymphocytes # 0.7 K/mcL (0.6-4.6); Lymphocytes % 13.4 %; Mean Corpuscular HGB Conc 32.4 g/dL (31.6-35.5); Mean Corpuscular Hemoglobin 30.7 pg (28.0-33.3); Mean Corpuscular Volume 94.6 fL (83.0-100.0); Mean Platelet Volume 9.1 fL (9.4-12.4); Monocytes # 0.6 K/mcL (0.0-1.3); Monocytes % 12.8 %; Neutrophils # 3.4 K/mcL (1.6-8.9); Platelet Count 194 K/mcL (140-400); Red Blood Count 3.36 M/mcL (4.19-5.50); Red Cell Distribution Width 14.6 % (11.5-14.5); Segmented Neutrophils % 68.9 %; White Blood Count 4.9 K/mcL (4.3-11.1)
[2021-03-05 05:00] LABS: Calcium 8.5 mg/dL (8.6-10.3); Potassium 4.8 mEq/L (3.5-5.1)
[2021-03-05] MEDS: *HR* Heparin 5,000 UNIT/ML VIAL SQ SCH ×2 (05:17→11:42)
[2021-03-05 06:55] VITALS: PULSE 66
[2021-03-05] MEDS: Aspirin 81 MG TAB.CHEW PO SCH (07:39)
[2021-03-05] MEDS: cefTRIAXone 1,000 MG in Water for inj. (sterile) 10 ML IVP SCH (07:40)
[2021-03-05] MEDS: Insulin LISPRO 300 UNITS/3 ML VIAL SUBQ SCH ×2 (07:49→11:40)
[2021-03-05] MEDS: SODIUM ZIRCONIUM CYCLOSILICATE 5 GM POWD.PACK PO SCH (08:00)
[2021-03-05 11:10] VITALS: BP 132/84; TEMP 97.8; O2SAT 100
== END 2021-03-05 13:20 | disposition home or self-care (01) ==
LOC: EMEROOARM 08:44 → 2ANU 08:44 → SUATTDRO 13:59 → 2ANU 14:43
PROVIDERS: ADMIT Internal Medicine; ATTEND Student in an Organized Health Care Education/Training Program

== ENCOUNTER 2021-03-17 17:11 | Inpatient (IN) ==
[2021-03-17 18:04] LABS: Basophils % 0.3 %; Eosinophils # 0.4 K/mcL (0.0-0.6); Eosinophils % 4.1 %; Hematocrit 31.9 % (37.5-50.1); Hemoglobin 10.2 g/dL (12.9-16.9); Immature Granulocytes % 0.3 % (0-4); Lymphocytes # 0.9 K/mcL (0.6-4.6); Lymphocytes % 9.2 %; Mean Platelet Volume 9.3 fL (9.4-12.4); Monocytes # 0.6 K/mcL (0.0-1.3); Monocytes % 6.2 %; Neutrophils # 7.5 K/mcL (1.6-8.9); Platelet Count 194 K/mcL (140-400); Red Blood Count 3.29 M/mcL (4.19-5.50); Segmented Neutrophils % 79.9 %; White Blood Count 9.4 K/mcL (4.3-11.1)
[2021-03-17 18:22] LABS: Potassium 6.2 mEq/L (3.5-5.1)
[2021-03-17] MEDS ORDERED: Ipratropium/Albuterol Neb 3 ML IH ONE (18:43)
[2021-03-17] MEDS ORDERED: Insulin Human Regular 5 UNIT in 0.9 % Sodium Chloride 10 ML IV ONE (18:43)
[2021-03-17] MEDS ORDERED: *HR* Dextrose 50 % in Water (Syg) 50 ML SYRINGE IVP ONE (18:43)
[2021-03-17 18:44] LABS: Adenovirus Not Detected (Not Detect); Bordetella Pertussis Not Detected (Not Detect); Chlamydophila pneumoniae Not Detected (Not Detect); Coronavirus 229E Not Detected (Not Detect); Coronavirus HKU1 Not Detected (Not Detect); Coronavirus NL63 Not Detected (Not Detect); Coronavirus OC43 Not Detected (Not Detect); Human Metapneumovirus Not Detected (Not Detect); Human Rhinovirus/Enterovirus Not Detected (Not Detect); Influenza A Subtype 2009 H1 Not Detected (Not Detect); Influenza B Not Detected (Not Detect); Mycoplasma pneumoniae Not Detected (Not Detect); Parainfluenza Virus 1 Not Detected (Not Detect); Parainfluenza Virus 2 Not Detected (Not Detect); Parainfluenza Virus 3 Not Detected (Not Detect); Parainfluenza Virus 4 Not Detected (Not Detect); Respiratory Syncytial Virus Not Detected (Not Detect); SARS-CoV-2 Not Detected (Not Detect)
[2021-03-17] MEDS ORDERED: Doxycycline 100 MG CAPSULE PO ONE (21:21)
[2021-03-17] MEDS ORDERED: methylPREDNISolone 125 MG/2 ML VIAL IVP ONE (21:21)
[2021-03-17 22:25] LABS: VBG HCO3 25 mEq/L (21-27); VBG PCO2 43 mmHg (41-51); VBG PH 7.37 pH Units (7.32-7.42); VBG PO2 148 mmHg (25-50)
[2021-03-17] MEDS ORDERED: Isovue-370 500 ML BOTTLE IVP ONE (23:08)
[2021-03-18] MEDS ORDERED: Vancomycin 1,500 MG/265 ML IV.SOLN IVPB ONE (00:38)
[2021-03-18] MEDS ORDERED: Piperacillin/Tazobactam 3.375 GM in 0.9 % Sodium Chloride Mini Bag 100 ML IVPB ONE ×2 (00:38→04:00)
[2021-03-18] MEDS ORDERED: Ondansetron ODT 4 MG TAB.RAPDIS SL PRN (01:09)
[2021-03-18] MEDS ORDERED: Naloxone 0.4 MG/ML INJ IVP PRN (01:09)
[2021-03-18] MEDS ORDERED: Acetaminophen 325 MG TABLET PO PRN (01:09)
[2021-03-18] MEDS ORDERED: Azithromycin 500 MG in 0.9 % Sodium Chloride 250 ML IVPB SCH (01:53)
[2021-03-18] MEDS ORDERED: levoFLOXacin 750 MG/150 ML 750 MG/150 ML BAG IVPB SCH ×2 (02:05→06:00)
[2021-03-18] MEDS ORDERED: *HR* Labetalol 20 MG/4 ML SYRINGE IVP ONE (02:07)
[2021-03-18] MEDS ORDERED: Dextrose Gel 15 GM/37.5 ML TUBE PO PRN ×2 (02:23)
[2021-03-18] MEDS ORDERED: *HR* Dextrose 50 % in Water (Syg) 50 ML SYRINGE IVP PRN (02:23)
[2021-03-18] MEDS ORDERED: D5% in Water 1,000 ML IVC PRN (02:23)
[2021-03-18] MEDS ORDERED: NIFEdipine Immed Rel 10 MG CAPSULE PO ONE (02:33)
[2021-03-18 02:54] LABS: Bacteria,Urine Few per hpf (None-Few); Bilirubin,Urine Negative (Negative); Blood,Urine Moderate (Negative); Clarity,Urine Turbid (Clear); Color,Urine Yellow (Yellow); Glucose,Urine (UA) 300 mg/dL (Normal); Ketones,Urine Negative (Negative); Leukocyte Esterase,Urine Large (Negative); Nitrite,Urine Negative (Negative); Protein,Urine >=300 mg/dL (Neg-Trace); RBC,Urine 30-50 per hpf (0-3); Specific Gravity,Urine 1.012 (1.010-1.025); Urobilinogen,Urine Normal (Normal); WBC,Urine TNTC per hpf (0-3)
[2021-03-18] MEDS ORDERED: 0.9 % Sodium Chloride 1,000 ML IVC SCH (03:00)
[2021-03-18 03:46] LABS: Mixed Venous Blood pCO2 30 mmHg (44-46); Mixed Venous Blood pH 7.44 pH Units (7.34-7.36); Mixed Venous Blood pO2 33 mmHg (35-45)
[2021-03-18] MEDS: Ipratropium/Albuterol Neb 3 ML IH SCH ×5 (04:11→20:19)
[2021-03-18 05:28] LABS: Basophils % 0.3 %; Eosinophils % 0.2 %; Hematocrit 30.1 % (37.5-50.1); Hemoglobin 9.6 g/dL (12.9-16.9); Immature Granulocytes % 0.3 % (0-4); Lymphocytes # 0.4 K/mcL (0.6-4.6); Lymphocytes % 3.9 %; Mean Corpuscular HGB Conc 31.9 g/dL (31.6-35.5); Mean Corpuscular Hemoglobin 30.9 pg (28.0-33.3); Mean Corpuscular Volume 96.8 fL (83.0-100.0); Mean Platelet Volume 9.4 fL (9.4-12.4); Monocytes % 0.4 %; Neutrophils # 8.5 K/mcL (1.6-8.9); Platelet Count 170 K/mcL (140-400); Red Blood Count 3.11 M/mcL (4.19-5.50); Red Cell Distribution Width 14.2 % (11.5-14.5); Segmented Neutrophils % 94.9 %; White Blood Count 8.9 K/mcL (4.3-11.1)
[2021-03-18 05:30] LABS: INR 1.1; Prothrombin Time 11.7 Seconds (9.4-12.1)
[2021-03-18 05:36] LABS: Activated Partial Thrombo Time 19.8 Seconds (26.0-36.0)
[2021-03-18 05:56] LABS: Albumin 3.7 g/dL (3.5-5.7); Albumin/Globulin Ratio 1.1 (1.1-2.2); Bilirubin,Direct 0.1 mg/dL (0.0-0.2); Bilirubin,Indirect 0.3 mg/dL (0.0-1.0); Bilirubin,Total 0.4 mg/dL (0.3-1.0); Globulin 3.3 g/dL (2.4-3.5); Platelet Estimate Normal (Normal)
[2021-03-18] MEDS ORDERED: methylPREDNISolone 125 MG/2 ML VIAL IVP SCH (06:00)
[2021-03-18] MEDS: methylPREDNISolone 125 MG/2 ML VIAL IVP SCH ×3 (06:06→19:52)
[2021-03-18 06:13] LABS: Calcium 8.9 mg/dL (8.6-10.3); Potassium 7.1 mEq/L (3.5-5.1)
[2021-03-18] MEDS: *HR* Heparin 5,000 UNIT/ML VIAL SQ SCH ×2 (06:14→18:11)
[2021-03-18] MEDS ORDERED: Insulin Human Regular 10 UNIT in 0.9 % Sodium Chloride 10 ML IV ONE (06:21)
[2021-03-18] MEDS ORDERED: SODIUM ZIRCONIUM CYCLOSILICATE 5 GM POWD.PACK PO ONE (06:24)
[2021-03-18] MEDS: Insulin LISPRO 300 UNITS/3 ML VIAL SUBQ SCH ×4 (06:27→19:54)
[2021-03-18] MEDS: Calcium Gluconate 1gm/50mL 1 GM/50 ML BAG IVPB SCH ×2 (06:41→07:25)
[2021-03-18] MEDS ORDERED: 0.9 % Sodium Chloride 250 ML IVC PRN (08:20)
[2021-03-18] MEDS ORDERED: 0.9 % Sodium Chloride 1,000 ML PRIME SCH (08:30)
[2021-03-18 12:08] LABS: Calcium 9.5 mg/dL (8.6-10.3); Potassium 4.6 mEq/L (3.5-5.1)
[2021-03-18 12:37] LABS: Hepatitis B Surface Antibody < 3.10 mIU/mL
[2021-03-18 12:47] LABS: Hepatitis B Surface Antigen Nonreactive (Nonreactive)
[2021-03-18 14:56] LABS: Influenza A PCR Negative (Negative); Influenza B PCR Negative (Negative); Resp. Syncytial Virus PCR Negative (Negative)
[2021-03-18] MEDS ORDERED: Vancomycin 500 MG in 0.9 % Sodium Chloride Mini Bag 100 ML IVPB ONE (15:00)
[2021-03-18 15:02] LABS: SARS-CoV-2 by PCR (In House) Negative (Negative)
[2021-03-18] MEDS: Piperacillin/Tazobactam 3.375 GM in 0.9 % Sodium Chloride Mini Bag 100 ML IVPB SCH (16:07)
[2021-03-18] MEDS: carvediloL 6.25 MG TABLET PO SCH (18:09)
[2021-03-18] MEDS: hydrALAZINE 10 MG TABLET PO SCH (19:51)
[2021-03-19] MEDS: Ipratropium/Albuterol Neb 3 ML IH SCH ×6 (00:28→20:32)
[2021-03-19] MEDS ORDERED: Melatonin 3 MG TABLET PO PRN (02:12)
[2021-03-19] MEDS: Piperacillin/Tazobactam 3.375 GM in 0.9 % Sodium Chloride Mini Bag 100 ML IVPB SCH ×2 (04:24→15:40)
[2021-03-19] MEDS: *HR* Heparin 5,000 UNIT/ML VIAL SQ SCH ×2 (04:30→17:45)
[2021-03-19 07:00] LABS: Basophils % 0.1 %; Hematocrit 27.2 % (37.5-50.1); Hemoglobin 8.8 g/dL (12.9-16.9); Immature Granulocytes % 0.4 % (0-4); Lymphocytes # 0.4 K/mcL (0.6-4.6); Lymphocytes % 4.6 %; Mean Corpuscular HGB Conc 32.4 g/dL (31.6-35.5); Mean Corpuscular Hemoglobin 31.4 pg (28.0-33.3); Mean Corpuscular Volume 97.1 fL (83.0-100.0); Mean Platelet Volume 9.2 fL (9.4-12.4); Monocytes # 0.4 K/mcL (0.0-1.3); Neutrophils # 8.4 K/mcL (1.6-8.9); Platelet Count 151 K/mcL (140-400); Red Cell Distribution Width 14.5 % (11.5-14.5); Segmented Neutrophils % 90.9 %; White Blood Count 9.2 K/mcL (4.3-11.1)
[2021-03-19 07:23] LABS: Calcium 8.6 mg/dL (8.6-10.3); Phosphorous 6.3 mg/dL (2.7-4.5); Potassium 6.7 mEq/L (3.5-5.1)
[2021-03-19] MEDS ORDERED: SODIUM ZIRCONIUM CYCLOSILICATE 5 GM POWD.PACK PO STA (07:34)
[2021-03-19] MEDS ORDERED: Insulin Human Regular 10 UNIT in 0.9 % Sodium Chloride 10 ML IV ONE (07:45)
[2021-03-19] MEDS: Insulin LISPRO 300 UNITS/3 ML VIAL SUBQ SCH ×4 (08:29→19:44)
[2021-03-19] MEDS ORDERED: 0.9 % Sodium Chloride 250 ML IVC PRN ×2 (08:29→08:31)
[2021-03-19] MEDS: carvediloL 6.25 MG TABLET PO SCH ×2 (09:35→17:45)
[2021-03-19] MEDS: Insulin DETEMIR 100 UNIT/ML X5UNITS SUBQ SCH ×2 (09:36→20:18)
[2021-03-19] MEDS: hydrALAZINE 10 MG TABLET PO SCH ×2 (09:42→20:18)
[2021-03-19] MEDS: methylPREDNISolone 125 MG/2 ML VIAL IVP SCH (09:43)
[2021-03-19 13:07] LABS: Calcium 8.8 mg/dL (8.6-10.3); Potassium 3.4 mEq/L (3.5-5.1)
[2021-03-19] MEDS: predniSONE 20 MG TABLET PO SCH (13:21)
[2021-03-20] MEDS: Ipratropium/Albuterol Neb 3 ML IH SCH ×4 (00:16→10:35)
[2021-03-20] MEDS: Piperacillin/Tazobactam 3.375 GM in 0.9 % Sodium Chloride Mini Bag 100 ML IVPB SCH (03:23)
[2021-03-20] MEDS: *HR* Heparin 5,000 UNIT/ML VIAL SQ SCH (06:05)
[2021-03-20] MEDS ORDERED: 0.9 % Sodium Chloride 250 ML IVC PRN (07:45)
[2021-03-20 07:50] VITALS: BP 162/70; PULSE 65; TEMP 97.8
[2021-03-20] MEDS: hydrALAZINE 10 MG TABLET PO SCH (08:14)
[2021-03-20] MEDS: carvediloL 6.25 MG TABLET PO SCH (08:14)
[2021-03-20] MEDS: predniSONE 20 MG TABLET PO SCH (08:14)
[2021-03-20] MEDS: Insulin LISPRO 300 UNITS/3 ML VIAL SUBQ SCH ×2 (08:16→11:33)
[2021-03-20 08:35] LABS: Basophils % 0.1 %; Eosinophils # 0.2 K/mcL (0.0-0.6); Eosinophils % 2.3 %; Hematocrit 29.4 % (37.5-50.1); Hemoglobin 9.5 g/dL (12.9-16.9); Immature Granulocytes % 0.4 % (0-4); Lymphocytes # 0.9 K/mcL (0.6-4.6); Lymphocytes % 12.4 %; Mean Corpuscular HGB Conc 32.3 g/dL (31.6-35.5); Mean Corpuscular Hemoglobin 31.7 pg (28.0-33.3); Mean Platelet Volume 8.9 fL (9.4-12.4); Monocytes # 0.8 K/mcL (0.0-1.3); Monocytes % 10.8 %; Neutrophils # 5.5 K/mcL (1.6-8.9); Platelet Count 183 K/mcL (140-400); Red Cell Distribution Width 14.1 % (11.5-14.5); White Blood Count 7.4 K/mcL (4.3-11.1)
[2021-03-20 09:18] LABS: Calcium 8.2 mg/dL (8.6-10.3); Potassium 4.8 mEq/L (3.5-5.1)
[2021-03-20 09:21] VITALS: O2SAT 97
[2021-03-20] MEDS ORDERED: levoFLOXacin 250 MG TABLET PO SCH (11:45)
[2021-03-20] MEDS ORDERED: Vancomycin 1,250 MG/262.5 ML IV.SOLN IVPB ONE (16:00)
== END 2021-03-20 13:00 | disposition home or self-care (01) | DRG 871 ==
LOC: EMEROOARM 17:11 → 2NNU 17:11 → OBSVTOIN 03-18 00:51 → SUATTDRO 03-18 00:51 → 2NNU 03-18 01:25 → 2ANU 03-19 13:07
PROVIDERS: ADMIT Internal Medicine; ATTEND Family Medicine

== ENCOUNTER 2021-03-25 00:12 | Observation (INO) ==
[2021-03-25 00:51] LABS: Basophils % 0.3 %; Eosinophils # 0.4 K/mcL (0.0-0.6); Eosinophils % 3.4 %; Hematocrit 29.9 % (37.5-50.1); Hemoglobin 9.7 g/dL (12.9-16.9); Immature Granulocytes % 0.5 % (0-4); Lymphocytes # 0.9 K/mcL (0.6-4.6); Lymphocytes % 8.9 %; Mean Corpuscular HGB Conc 32.4 g/dL (31.6-35.5); Mean Corpuscular Hemoglobin 31.5 pg (28.0-33.3); Mean Corpuscular Volume 97.1 fL (83.0-100.0); Mean Platelet Volume 9.3 fL (9.4-12.4); Monocytes % 9.4 %; Neutrophils # 7.9 K/mcL (1.6-8.9); Platelet Count 207 K/mcL (140-400); Red Blood Count 3.08 M/mcL (4.19-5.50); Red Cell Distribution Width 14.6 % (11.5-14.5); Segmented Neutrophils % 77.5 %; White Blood Count 10.2 K/mcL (4.3-11.1)
[2021-03-25 00:59] LABS: INR 1.1; Prothrombin Time 11.9 Seconds (9.4-12.1)
[2021-03-25 01:05] LABS: Activated Partial Thrombo Time 37.4 Seconds (26.0-36.0)
[2021-03-25 01:09] LABS: Calcium 8.4 mg/dL (8.6-10.3)
[2021-03-25] MEDS ORDERED: SODIUM ZIRCONIUM CYCLOSILICATE 5 GM POWD.PACK PO ONE (01:44)
[2021-03-25] MEDS ORDERED: Albuterol 2.5 MG/3 ML NEBULIZER IH ONE (01:44)
[2021-03-25 02:22] LABS: Troponin I 0.04 ng/mL (< 0.04)
[2021-03-25] MEDS ORDERED: *HR* Dextrose 50 % in Water (Syg) 50 ML SYRINGE IVP ONE (03:16)
[2021-03-25] MEDS ORDERED: Ondansetron 4 MG/2 ML VIAL IVP PRN (03:17)
[2021-03-25] MEDS ORDERED: Naloxone 0.4 MG/ML INJ IVP PRN (03:17)
[2021-03-25] MEDS ORDERED: Melatonin 3 MG TABLET PO PRN (03:17)
[2021-03-25] MEDS ORDERED: Acetaminophen 325 MG TABLET PO PRN (03:17)
[2021-03-25] MEDS ORDERED: Insulin Human Regular 5 UNIT in 0.9 % Sodium Chloride 10 ML IV ONE (03:30)
[2021-03-25] MEDS: Calcium Gluconate 1gm/50mL 1 GM/50 ML BAG IVPB SCH ×2 (05:05→05:53)
[2021-03-25] MEDS ORDERED: 0.9 % Sodium Chloride 250 ML IVC PRN (07:36)
[2021-03-25] MEDS ORDERED: 0.9 % Sodium Chloride 1,000 ML PRIME SCH (07:45)
[2021-03-25] MEDS ORDERED: D5% in Water 1,000 ML IVC PRN (07:51)
[2021-03-25] MEDS ORDERED: *HR* Dextrose 50 % in Water (Syg) 50 ML SYRINGE IVP PRN (07:51)
[2021-03-25] MEDS ORDERED: Dextrose Gel 15 GM/37.5 ML TUBE PO PRN ×2 (07:51)
[2021-03-25] MEDS: Aspirin 81 MG TAB.CHEW PO SCH (09:47)
[2021-03-25] MEDS: NIFEdipine XL (24 HR) 60 MG TAB.ER.24 PO SCH (09:47)
[2021-03-25] MEDS: carvediloL 6.25 MG TABLET PO SCH ×3 (09:48→20:31)
[2021-03-25] MEDS: Isosorbide MONOnitrate (24 HR) 30 MG TAB.ER.24H PO SCH (09:48)
[2021-03-25 11:09] LABS: Hematocrit 27.2 % (37.5-50.1); Mean Corpuscular HGB Conc 33.1 g/dL (31.6-35.5); Mean Corpuscular Hemoglobin 31.8 pg (28.0-33.3); Mean Corpuscular Volume 96.1 fL (83.0-100.0); Mean Platelet Volume 9.6 fL (9.4-12.4); Platelet Count 172 K/mcL (140-400); Red Blood Count 2.83 M/mcL (4.19-5.50); Red Cell Distribution Width 14.5 % (11.5-14.5)
[2021-03-25 11:14] LABS: White Blood Count 4.7 K/mcL (4.3-11.1)
[2021-03-25 11:17] LABS: Prothrombin Time 11.6 Seconds (9.4-12.1)
[2021-03-25 11:33] LABS: Calcium 8.6 mg/dL (8.6-10.3); Magnesium 1.9 mg/dL (1.6-2.6); Phosphorous 3.3 mg/dL (2.7-4.5); Potassium 4.4 mEq/L (3.5-5.1)
[2021-03-25] MEDS: Insulin LISPRO 300 UNITS/3 ML VIAL SUBQ SCH ×2 (12:59→16:58)
[2021-03-25] MEDS: *HR* Heparin 5,000 UNIT/ML VIAL SQ SCH ×2 (14:10→20:30)
[2021-03-25] MEDS ORDERED: Insulin LISPRO 300 UNITS/3 ML VIAL SUBQ SCH (21:00)
[2021-03-26] MEDS: *HR* Heparin 5,000 UNIT/ML VIAL SQ SCH (05:19)
[2021-03-26 08:14] VITALS: TEMP 97.8
[2021-03-26] MEDS: carvediloL 6.25 MG TABLET PO SCH (08:25)
[2021-03-26] MEDS: NIFEdipine XL (24 HR) 60 MG TAB.ER.24 PO SCH (08:25)
[2021-03-26] MEDS: Aspirin 81 MG TAB.CHEW PO SCH (08:25)
[2021-03-26] MEDS: Insulin LISPRO 300 UNITS/3 ML VIAL SUBQ SCH ×2 (08:27→12:04)
[2021-03-26] MEDS: Isosorbide MONOnitrate (24 HR) 30 MG TAB.ER.24H PO SCH (08:35)
[2021-03-26 11:56] VITALS: BP 138/64; PULSE 68; O2SAT 94
== END 2021-03-26 14:28 | disposition home or self-care (01) ==
LOC: 2ANU 00:12 → EMEROOARM 00:12 → SUATTDRO 02:49 → 2ANU 04:15
PROVIDERS: ADMIT Family Medicine; ATTEND Internal Medicine

== ENCOUNTER 2021-04-28 23:42 | Observation (INO) ==
[2021-04-29] MEDS ORDERED: Naloxone 0.4 MG/ML INJ IVP PRN (00:18)
[2021-04-29] MEDS ORDERED: Melatonin 3 MG TABLET PO PRN (00:18)
[2021-04-29] MEDS ORDERED: D5% in Water 1,000 ML IVC PRN (00:36)
[2021-04-29] MEDS ORDERED: Dextrose Gel 15 GM/37.5 ML TUBE PO PRN ×2 (00:36)
[2021-04-29] MEDS ORDERED: *HR* Dextrose 50 % in Water (Syg) 50 ML SYRINGE IVP PRN (00:36)
[2021-04-29] MEDS ORDERED: hydrALAZINE 10 MG TABLET PO PRN (00:42)
[2021-04-29] MEDS: carvediloL 6.25 MG TABLET PO SCH ×3 (03:26→15:29)
[2021-04-29] MEDS: Ipratropium/Albuterol Neb 3 ML IH SCH ×4 (03:42→20:09)
[2021-04-29] MEDS: *HR* Heparin 5,000 UNIT/ML VIAL SQ SCH ×2 (05:48→16:52)
[2021-04-29] MEDS ORDERED: 0.9 % Sodium Chloride 250 ML IVC PRN (08:24)
[2021-04-29] MEDS ORDERED: Ondansetron 4 MG/2 ML VIAL IVP PRN (08:30)
[2021-04-29] MEDS ORDERED: 0.9 % Sodium Chloride 1,000 ML PRIME SCH (08:30)
[2021-04-29] MEDS: Insulin LISPRO 300 UNITS/3 ML VIAL SUBQ SCH ×3 (08:55→16:51)
[2021-04-29] MEDS ORDERED: Isosorbide MONOnitrate (24 HR) 30 MG TAB.ER.24H PO SCH (09:00)
[2021-04-29] MEDS ORDERED: NIFEdipine XL (24 HR) 60 MG TAB.ER.24 PO SCH (09:00)
[2021-04-29] MEDS ORDERED: Gabapentin 100 MG CAPSULE PO SCH (21:00)
[2021-04-29] MEDS ORDERED: Insulin LISPRO 300 UNITS/3 ML VIAL SUBQ SCH (21:00)
[2021-04-30 03:21] VITALS: O2SAT 95
[2021-04-30] MEDS: Ipratropium/Albuterol Neb 3 ML IH SCH ×2 (03:57→10:55)
[2021-04-30] MEDS: *HR* Heparin 5,000 UNIT/ML VIAL SQ SCH (05:32)
[2021-04-30 06:12] LABS: Bacteria,Urine Few per hpf (None-Few); Bilirubin,Urine Negative (Negative); Blood,Urine Moderate (Negative); Clarity,Urine Turbid (Clear); Color,Urine Light-Yellow (Yellow); Glucose,Urine (UA) 500 mg/dL (Normal); Ketones,Urine Negative (Negative); Leukocyte Esterase,Urine Moderate (Negative); Nitrite,Urine Negative (Negative); Protein,Urine >=300 mg/dL (Neg-Trace); Urobilinogen,Urine Normal (Normal); WBC,Urine 30-50 per hpf (0-3)
[2021-04-30 06:42] VITALS: PULSE 62; TEMP 97.4
[2021-04-30] MEDS: Insulin LISPRO 300 UNITS/3 ML VIAL SUBQ SCH (07:21)
[2021-04-30] MEDS ORDERED: 0.9 % Sodium Chloride 250 ML IVC PRN (11:21)
[2021-04-30 11:41] LABS: Basophils % 0.4 %; Eosinophils # 0.2 K/mcL (0.0-0.6); Eosinophils % 3.7 %; Hematocrit 26.1 % (37.5-50.1); Hemoglobin 8.5 g/dL (12.9-16.9); Immature Granulocytes % 0.4 % (0-4); Lymphocytes # 0.6 K/mcL (0.6-4.6); Lymphocytes % 12.5 %; Mean Corpuscular HGB Conc 32.6 g/dL (31.6-35.5); Mean Corpuscular Hemoglobin 31.8 pg (28.0-33.3); Mean Corpuscular Volume 97.8 fL (83.0-100.0); Mean Platelet Volume 9.1 fL (9.4-12.4); Monocytes # 0.4 K/mcL (0.0-1.3); Monocytes % 8.4 %; Neutrophils # 3.8 K/mcL (1.6-8.9); Platelet Count 175 K/mcL (140-400); Red Blood Count 2.67 M/mcL (4.19-5.50); Red Cell Distribution Width 14.6 % (11.5-14.5); Segmented Neutrophils % 74.6 %; White Blood Count 5.1 K/mcL (4.3-11.1)
[2021-04-30 12:01] LABS: Albumin 3.5 g/dL (3.5-5.7); Calcium 8.3 mg/dL (8.6-10.3); Phosphorous 5.7 mg/dL (2.7-4.5); Potassium 5.4 mEq/L (3.5-5.1)
[2021-04-30 14:35] LABS: Hepatitis B Surface Antibody < 3.10 mIU/mL
[2021-04-30 14:46] LABS: Hepatitis B Surface Antigen Nonreactive (Nonreactive)
[2021-04-30 15:56] VITALS: BP 144/78
== END 2021-04-30 14:31 | disposition home or self-care (01) ==
LOC: EMEROOARM 23:42 → 3BNU 23:42 → SUATTDRO 04-29 00:26 → 3BNU 04-29 01:15
PROVIDERS: ADMIT Internal Medicine; ATTEND Internal Medicine

== ENCOUNTER 2021-05-17 13:50 | Observation (INO) ==
[2021-05-17] MEDS ORDERED: Ondansetron 4 MG/2 ML VIAL IVP PRN (16:13)
[2021-05-17] MEDS ORDERED: Naloxone 0.4 MG/ML INJ IVP PRN (16:13)
[2021-05-17] MEDS ORDERED: Dextrose Gel 15 GM/37.5 ML TUBE PO PRN ×2 (16:14)
[2021-05-17] MEDS ORDERED: *HR* Dextrose 50 % in Water (Syg) 50 ML SYRINGE IVP PRN (16:14)
[2021-05-17] MEDS ORDERED: D5% in Water 1,000 ML IVC PRN (16:14)
[2021-05-17] MEDS ORDERED: NIFEdipine XL (24 HR) 60 MG TAB.ER.24 PO SCH (16:30)
[2021-05-17] MEDS ORDERED: Isosorbide MONOnitrate (24 HR) 30 MG TAB.ER.24H PO SCH (16:30)
[2021-05-17 16:43] LABS: Basophils % 0.4 %; Eosinophils # 0.3 K/mcL (0.0-0.6); Eosinophils % 3.5 %; Hematocrit 28.9 % (37.5-50.1); Hemoglobin 9.4 g/dL (12.9-16.9); Immature Granulocytes % 0.4 % (0-4); Lymphocytes # 0.8 K/mcL (0.6-4.6); Lymphocytes % 10.4 %; Mean Corpuscular HGB Conc 32.5 g/dL (31.6-35.5); Mean Corpuscular Hemoglobin 31.9 pg (28.0-33.3); Mean Platelet Volume 9.2 fL (9.4-12.4); Monocytes # 0.5 K/mcL (0.0-1.3); Monocytes % 6.6 %; Neutrophils # 6.4 K/mcL (1.6-8.9); Platelet Count 183 K/mcL (140-400); Red Blood Count 2.95 M/mcL (4.19-5.50); Red Cell Distribution Width 14.3 % (11.5-14.5); Segmented Neutrophils % 78.7 %; White Blood Count 8.1 K/mcL (4.3-11.1)
[2021-05-17 16:51] LABS: INR 1.1; Prothrombin Time 11.7 Seconds (9.4-12.1)
[2021-05-17 16:54] LABS: Activated Partial Thrombo Time 36.1 Seconds (26.0-36.0)
[2021-05-17] MEDS: Ipratropium/Albuterol Neb 3 ML IH SCH ×2 (16:58→21:00)
[2021-05-17] MEDS ORDERED: Insulin DETEMIR 100 UNIT/ML X5UNITS SUBQ SCH (17:00)
[2021-05-17 17:08] LABS: Calcium 9.5 mg/dL (8.6-10.3); Potassium 6.6 mEq/L (3.5-5.1); Troponin I 0.07 ng/mL (< 0.04)
[2021-05-17] MEDS ORDERED: 0.9 % Sodium Chloride 250 ML IVC PRN (17:42)
[2021-05-17] MEDS ORDERED: 0.9 % Sodium Chloride 1,000 ML PRIME SCH (17:45)
[2021-05-17] MEDS: Insulin LISPRO 300 UNITS/3 ML VIAL SUBQ SCH ×2 (18:03→23:46)
[2021-05-17] MEDS: carvediloL 6.25 MG TABLET PO SCH (23:46)
[2021-05-17] MEDS: Insulin DETEMIR 100 UNIT/ML X5UNITS SUBQ SCH (23:46)
[2021-05-17] MEDS: Gabapentin 100 MG CAPSULE PO SCH (23:46)
[2021-05-17] MEDS: NON-FORMULARY MEDICATION 1 EACH EACH (Pramipexole Di-Hcl [Pramipexole Dihydrochloride] 0.1 PO SCH (23:46)
[2021-05-18] MEDS: Ipratropium/Albuterol Neb 3 ML IH SCH ×4 (03:49→19:58)
[2021-05-18] MEDS: Insulin LISPRO 300 UNITS/3 ML VIAL SUBQ SCH ×4 (07:25→22:04)
[2021-05-18] MEDS: carvediloL 6.25 MG TABLET PO SCH ×2 (08:10→16:35)
[2021-05-18] MEDS: Acetaminophen 325 MG TABLET PO PRN ×2 (08:20→22:12)
[2021-05-18] MEDS ORDERED: 0.9 % Sodium Chloride 250 ML IVC PRN (09:20)
[2021-05-18 19:58] LABS: Calcium 8.6 mg/dL (8.6-10.3); Magnesium 1.8 mg/dL (1.6-2.6); Phosphorous 4.9 mg/dL (2.7-4.5); Potassium 5.7 mEq/L (3.5-5.1)
[2021-05-18] MEDS: Gabapentin 100 MG CAPSULE PO SCH (22:05)
[2021-05-18] MEDS: Insulin DETEMIR 100 UNIT/ML X5UNITS SUBQ SCH (22:05)
[2021-05-18] MEDS: NON-FORMULARY MEDICATION 1 EACH EACH (Pramipexole Di-Hcl [Pramipexole Dihydrochloride] 0.1 PO SCH (22:05)
[2021-05-18] MEDS: Melatonin 3 MG TABLET PO PRN (22:12)
[2021-05-19] MEDS: Ipratropium/Albuterol Neb 3 ML IH SCH ×4 (03:28→20:18)
[2021-05-19] MEDS: Insulin LISPRO 300 UNITS/3 ML VIAL SUBQ SCH ×4 (07:13→20:08)
[2021-05-19] MEDS: carvediloL 6.25 MG TABLET PO SCH ×2 (07:56→18:44)
[2021-05-19] MEDS: Insulin DETEMIR 100 UNIT/ML X5UNITS SUBQ SCH (20:08)
[2021-05-19] MEDS: NON-FORMULARY MEDICATION 1 EACH EACH (Pramipexole Di-Hcl [Pramipexole Dihydrochloride] 0.1 PO SCH (20:14)
[2021-05-19] MEDS: Melatonin 3 MG TABLET PO PRN (20:14)
[2021-05-19] MEDS: Gabapentin 100 MG CAPSULE PO SCH (20:14)
[2021-05-19] MEDS: Acetaminophen 325 MG TABLET PO PRN (20:14)
[2021-05-20] MEDS: Ipratropium/Albuterol Neb 3 ML IH SCH ×2 (03:51→08:09)
[2021-05-20] MEDS ORDERED: 0.9 % Sodium Chloride 250 ML IVC PRN (08:17)
[2021-05-20] MEDS: Insulin LISPRO 300 UNITS/3 ML VIAL SUBQ SCH ×2 (09:50→14:56)
[2021-05-20 11:29] LABS: Calcium 8.6 mg/dL (8.6-10.3); Potassium 5.4 mEq/L (3.5-5.1)
[2021-05-20] MEDS: carvediloL 6.25 MG TABLET PO SCH (14:56)
[2021-05-20 15:07] VITALS: PULSE 70; O2SAT 100
[2021-05-20 15:22] VITALS: BP 173/73; TEMP 97.4
== END 2021-05-20 15:44 | disposition home health service (06) ==
LOC: 3BNU 13:50 → EMEROOARM 13:50 → SUATTDRO 16:42 → 3BNU 17:31
PROVIDERS: ADMIT Internal Medicine; ATTEND Internal Medicine

== ENCOUNTER 2021-06-16 08:21 | Inpatient (IN) ==
[2021-06-16] MEDS ORDERED: Naloxone 0.4 MG/ML INJ IVP PRN (10:35)
[2021-06-16] MEDS ORDERED: Ondansetron 4 MG/2 ML VIAL IVP PRN (10:56)
[2021-06-16] MEDS ORDERED: Dextrose 4 GM Chewable Tablets PO PRN ×2 (11:22)
[2021-06-16] MEDS ORDERED: *HR* Dextrose 50 % in Water (Syg) 50 ML SYRINGE IVP PRN (11:22)
[2021-06-16] MEDS ORDERED: D5% in Water 1,000 ML IVC PRN (11:22)
[2021-06-16] MEDS: NIFEdipine XL (24 HR) 60 MG TAB.ER.24 PO SCH (12:06)
[2021-06-16] MEDS: Insulin LISPRO 300 UNITS/3 ML VIAL SUBQ SCH ×3 (12:07→21:24)
[2021-06-16] MEDS: *HR* Heparin 5,000 UNIT/ML VIAL SQ SCH ×2 (13:19→21:25)
[2021-06-16] MEDS: carvediloL 6.25 MG TABLET PO SCH (16:46)
[2021-06-16] MEDS ORDERED: Gabapentin 300 MG CAPSULE PO SCH (21:00)
[2021-06-16] MEDS: Melatonin 3 MG TABLET PO PRN (21:24)
[2021-06-16] MEDS: Insulin DETEMIR 100 UNIT/ML X5UNITS SUBQ SCH (21:24)
[2021-06-17] MEDS: *HR* Heparin 5,000 UNIT/ML VIAL SQ SCH ×3 (06:08→21:23)
[2021-06-17] MEDS: Insulin LISPRO 300 UNITS/3 ML VIAL SUBQ SCH ×4 (08:20→21:25)
[2021-06-17] MEDS ORDERED: 0.9 % Sodium Chloride 250 ML IVC PRN (08:28)
[2021-06-17] MEDS ORDERED: 0.9 % Sodium Chloride 1,000 ML PRIME SCH (08:30)
[2021-06-17] MEDS: carvediloL 6.25 MG TABLET PO SCH ×3 (10:00→17:07)
[2021-06-17 10:57] LABS: Basophils % 0.3 %; Eosinophils # 0.2 K/mcL (0.0-0.6); Eosinophils % 2.7 %; Hematocrit 30.3 % (37.5-50.1); Hemoglobin 9.9 g/dL (12.9-16.9); Immature Granulocytes % 0.3 % (0-4); Lymphocytes # 0.6 K/mcL (0.6-4.6); Lymphocytes % 8.5 %; Mean Corpuscular HGB Conc 32.7 g/dL (31.6-35.5); Mean Corpuscular Hemoglobin 31.3 pg (28.0-33.3); Mean Corpuscular Volume 95.9 fL (83.0-100.0); Mean Platelet Volume 9.2 fL (9.4-12.4); Monocytes # 0.4 K/mcL (0.0-1.3); Monocytes % 5.4 %; Neutrophils # 6.1 K/mcL (1.6-8.9); Platelet Count 176 K/mcL (140-400); Red Blood Count 3.16 M/mcL (4.19-5.50); Red Cell Distribution Width 13.9 % (11.5-14.5); Segmented Neutrophils % 82.8 %; White Blood Count 7.4 K/mcL (4.3-11.1)
[2021-06-17 11:06] LABS: INR 1.1; Prothrombin Time 12.7 Seconds (9.4-12.1)
[2021-06-17 11:07] LABS: Albumin 3.5 g/dL (3.5-5.7); Albumin/Globulin Ratio 1.3 (1.1-2.2); Bilirubin,Total 0.3 mg/dL (0.3-1.0); Calcium 8.3 mg/dL (8.6-10.3); Chol/HDL Ratio 3.2 (0-4.9); Globulin 2.8 g/dL (2.4-3.5); Potassium 5.4 mEq/L (3.5-5.1); Total Protein 6.3 g/dL (6.4-8.9)
[2021-06-17 11:24] LABS: Hepatitis B Surface Antibody < 3.10 mIU/mL
[2021-06-17 11:35] LABS: Hepatitis B Surface Antigen Nonreactive (Nonreactive)
[2021-06-17 11:54] LABS: Estimated Average Glucose 151 mg/dl; Hemoglobin A1C 6.9 %
[2021-06-17] MEDS: cloNIDine HCL 0.1 MG TABLET PO SCH ×2 (15:01→17:09)
[2021-06-17] MEDS: Isosorbide MONOnitrate (24 HR) 30 MG TAB.ER.24H PO SCH (15:02)
[2021-06-17] MEDS: NIFEdipine XL (24 HR) 60 MG TAB.ER.24 PO SCH (15:02)
[2021-06-17 19:28] LABS: Bilirubin,Urine Negative (Negative); Blood,Urine Moderate (Negative); Clarity,Urine Ex.Turbid (Clear); Color,Urine Yellow (Yellow); Glucose,Urine (UA) 200 mg/dL (Normal); Ketones,Urine Negative (Negative); Leukocyte Esterase,Urine Large (Negative); Nitrite,Urine Negative (Negative); PH,Urine 7.5 pH Units (5.0-8.0); Protein,Urine >=300 mg/dL (Neg-Trace); RBC,Urine 15-30 per hpf (0-3); Specific Gravity,Urine 1.013 (1.010-1.025); Squamous Epithelial Cell,Urine Few per hpf (None-Few); Urobilinogen,Urine Normal (Normal); WBC,Urine TNTC per hpf (0-3)
[2021-06-17] MEDS: Insulin DETEMIR 100 UNIT/ML X5UNITS SUBQ SCH (21:24)
[2021-06-17] MEDS: Gabapentin 100 MG CAPSULE PO SCH (21:24)
[2021-06-17] MEDS: Melatonin 3 MG TABLET PO PRN (21:54)
[2021-06-17] MEDS ORDERED: Acetaminophen 325 MG TABLET PO ONE (22:52)
[2021-06-18] MEDS: *HR* Heparin 5,000 UNIT/ML VIAL SQ SCH ×3 (05:01→20:27)
[2021-06-18] MEDS: cloNIDine HCL 0.1 MG TABLET PO SCH ×3 (08:10→17:27)
[2021-06-18] MEDS: Insulin LISPRO 300 UNITS/3 ML VIAL SUBQ SCH ×4 (09:36→20:27)
[2021-06-18 11:57] LABS: Hematocrit 31.1 % (37.5-50.1); Hemoglobin 10.3 g/dL (12.9-16.9); Mean Corpuscular HGB Conc 33.1 g/dL (31.6-35.5); Mean Corpuscular Hemoglobin 31.7 pg (28.0-33.3); Mean Corpuscular Volume 95.7 fL (83.0-100.0); Mean Platelet Volume 8.9 fL (9.4-12.4); Platelet Count 180 K/mcL (140-400); Red Blood Count 3.25 M/mcL (4.19-5.50); Red Cell Distribution Width 14.1 % (11.5-14.5)
[2021-06-18 12:14] LABS: Calcium 8.4 mg/dL (8.6-10.3); Potassium 4.9 mEq/L (3.5-5.1)
[2021-06-18] MEDS: Isosorbide MONOnitrate (24 HR) 30 MG TAB.ER.24H PO SCH (13:09)
[2021-06-18] MEDS: NIFEdipine XL (24 HR) 60 MG TAB.ER.24 PO SCH (13:09)
[2021-06-18] MEDS: Aspirin Enteric Coated 81 MG Tablet PO SCH (13:10)
[2021-06-18] MEDS: carvediloL 6.25 MG TABLET PO SCH (17:27)
[2021-06-18] MEDS: Gabapentin 100 MG CAPSULE PO SCH (20:26)
[2021-06-18] MEDS: Insulin DETEMIR 100 UNIT/ML X5UNITS SUBQ SCH (20:27)
[2021-06-18] MEDS: Melatonin 3 MG TABLET PO PRN (20:34)
[2021-06-19] MEDS: cloNIDine HCL 0.1 MG TABLET PO SCH ×2 (00:42→13:34)
[2021-06-19] MEDS: *HR* Heparin 5,000 UNIT/ML VIAL SQ SCH (03:49)
[2021-06-19 07:36] VITALS: PULSE 61; O2SAT 97
[2021-06-19] MEDS ORDERED: *HR* Heparin 10,000 UNIT/10 ML VIAL IV PRN (08:28)
[2021-06-19] MEDS ORDERED: 0.9 % Sodium Chloride 250 ML IVC PRN (08:28)
[2021-06-19] MEDS ORDERED: Acetaminophen 325 MG TABLET PO ONE (10:02)
[2021-06-19] MEDS: Insulin LISPRO 300 UNITS/3 ML VIAL SUBQ SCH ×2 (10:03→13:38)
[2021-06-19 10:43] LABS: Hematocrit 28.6 % (37.5-50.1); Hemoglobin 9.6 g/dL (12.9-16.9); Mean Corpuscular HGB Conc 33.6 g/dL (31.6-35.5); Mean Corpuscular Hemoglobin 31.8 pg (28.0-33.3); Mean Corpuscular Volume 94.7 fL (83.0-100.0); Mean Platelet Volume 9.3 fL (9.4-12.4); Platelet Count 173 K/mcL (140-400); Red Blood Count 3.02 M/mcL (4.19-5.50); Red Cell Distribution Width 14.2 % (11.5-14.5); White Blood Count 5.9 K/mcL (4.3-11.1)
[2021-06-19 11:03] LABS: Calcium 8.1 mg/dL (8.6-10.3); Potassium 5.1 mEq/L (3.5-5.1)
[2021-06-19 12:47] VITALS: BP 158/69
[2021-06-19 12:56] VITALS: TEMP 97.8
[2021-06-19] MEDS: Isosorbide MONOnitrate (24 HR) 30 MG TAB.ER.24H PO SCH (13:33)
[2021-06-19] MEDS: NIFEdipine XL (24 HR) 60 MG TAB.ER.24 PO SCH (13:34)
[2021-06-19] MEDS: Aspirin Enteric Coated 81 MG Tablet PO SCH (13:34)
[2021-06-19] MEDS: carvediloL 6.25 MG TABLET PO SCH (13:34)
== END 2021-06-19 14:35 | disposition home health service (06) | DRG 149 ==
LOC: 2ANU 08:21 → EMEROOARM 08:21 → 2ANU 11:25 → SUATTDRO 06-17 14:30
PROVIDERS: ADMIT Hospitalist; ATTEND Family Medicine

== ENCOUNTER 2021-08-23 02:26 | Observation (INO) ==
[2021-08-23 03:29] LABS: Basophils % 0.4 %; Eosinophils # 0.2 K/mcL (0.0-0.6); Eosinophils % 3.8 %; Hematocrit 29.5 % (37.5-50.1); Hemoglobin 10.1 g/dL (12.9-16.9); Immature Granulocytes % 0.2 % (0-4); Lymphocytes # 0.8 K/mcL (0.6-4.6); Mean Corpuscular HGB Conc 34.2 g/dL (31.6-35.5); Mean Corpuscular Hemoglobin 32.8 pg (28.0-33.3); Mean Corpuscular Volume 95.8 fL (83.0-100.0); Mean Platelet Volume 9.7 fL (9.4-12.4); Monocytes # 0.4 K/mcL (0.0-1.3); Monocytes % 7.9 %; Platelet Count 168 K/mcL (140-400); Red Blood Count 3.08 M/mcL (4.19-5.50); Red Cell Distribution Width 14.6 % (11.5-14.5); Segmented Neutrophils % 72.7 %; White Blood Count 5.5 K/mcL (4.3-11.1)
[2021-08-23 04:02] LABS: Albumin 3.8 g/dL (3.5-5.7); Albumin/Globulin Ratio 1.2 (1.1-2.2); Bilirubin,Total 0.5 mg/dL (0.3-1.0); Calcium 8.5 mg/dL (8.6-10.3); Globulin 3.1 g/dL (2.4-3.5); Potassium 4.6 mEq/L (3.5-5.1); Total Protein 6.9 g/dL (6.4-8.9); Troponin I 0.05 ng/mL (< 0.04)
[2021-08-23 04:14] LABS: Adenovirus Not Detected (Not Detect); Bordetella Pertussis Not Detected (Not Detect); Chlamydophila pneumoniae Not Detected (Not Detect); Coronavirus 229E Not Detected (Not Detect); Coronavirus HKU1 Not Detected (Not Detect); Coronavirus NL63 Not Detected (Not Detect); Coronavirus OC43 Not Detected (Not Detect); Human Metapneumovirus Not Detected (Not Detect); Human Rhinovirus/Enterovirus Not Detected (Not Detect); Influenza A Subtype 2009 H1 Not Detected (Not Detect); Influenza B Not Detected (Not Detect); Mycoplasma pneumoniae Not Detected (Not Detect); Parainfluenza Virus 1 Not Detected (Not Detect); Parainfluenza Virus 2 Not Detected (Not Detect); Parainfluenza Virus 3 Not Detected (Not Detect); Parainfluenza Virus 4 Not Detected (Not Detect); Respiratory Syncytial Virus Not Detected (Not Detect); SARS-CoV-2 Not Detected (Not Detect)
[2021-08-23] MEDS ORDERED: *HR* Labetalol 20 MG/4 ML SYRINGE IVP ONE (04:27)
[2021-08-23] MEDS ORDERED: cloNIDine HCL 0.1 MG TABLET PO ONE (05:14)
[2021-08-23] MEDS ORDERED: hydrALAZINE 10 MG TABLET PO ONE (05:14)
[2021-08-23 05:15] LABS: Bilirubin,Indirect 0.5 mg/dL (0.0-1.0)
[2021-08-23] MEDS: Nitroglycerin 0.4 MG TAB.SUBL SL SCH ×2 (06:30→06:31)
[2021-08-23] MEDS ORDERED: Naloxone 0.4 MG/ML INJ IVP PRN (07:37)
[2021-08-23] MEDS ORDERED: 0.9 % Sodium Chloride 250 ML IVC PRN (09:02)
[2021-08-23] MEDS ORDERED: Ethyl Chloride Spray Bottle (104 SPRAY/BOTTLE) TP PRN (09:02)
[2021-08-23] MEDS ORDERED: 0.9 % Sodium Chloride 1,000 ML PRIME SCH (09:15)
[2021-08-23 09:41] LABS: Magnesium 1.7 mg/dL (1.6-2.6); Phosphorous 5.3 mg/dL (2.7-4.5)
[2021-08-23] MEDS: *HR* Heparin 5,000 UNIT/ML VIAL SQ SCH ×2 (11:07→20:29)
[2021-08-23] MEDS: cloNIDine HCL 0.1 MG TABLET PO SCH ×2 (11:51→19:54)
[2021-08-23] MEDS: NIFEdipine XL (24 HR) 60 MG TAB.ER.24 PO SCH (11:51)
[2021-08-23 13:18] LABS: Hepatitis B Surface Antigen Nonreactive (Nonreactive)
[2021-08-23 13:34] LABS: Hepatitis B Surface Antibody < 3.10 mIU/mL
[2021-08-23] MEDS: carvediloL 25 MG TABLET PO SCH (16:55)
[2021-08-23] MEDS ORDERED: amLODIPine 5 MG TABLET PO SCH (21:00)
[2021-08-24] MEDS: *HR* Heparin 5,000 UNIT/ML VIAL SQ SCH (02:54)
[2021-08-24] MEDS: cloNIDine HCL 0.1 MG TABLET PO SCH ×2 (02:54→08:44)
[2021-08-24 06:59] VITALS: BP 107/54; PULSE 64; TEMP 98; O2SAT 97
[2021-08-24] MEDS: carvediloL 25 MG TABLET PO SCH (08:44)
[2021-08-24] MEDS: NIFEdipine XL (24 HR) 60 MG TAB.ER.24 PO SCH (08:44)
== END 2021-08-24 11:27 | disposition home or self-care (01) ==
LOC: EMEROOARM 02:26 → 2ANU 02:26 → SUATTDRO 06:22 → 2ANU 08:00
PROVIDERS: ADMIT Internal Medicine; ATTEND Internal Medicine

== ENCOUNTER 2021-09-01 19:18 | Inpatient (IN) ==
[2021-09-01 20:55] LABS: Basophils % 0.4 %; Eosinophils # 0.1 K/mcL (0.0-0.6); Eosinophils % 0.9 %; Hematocrit 32.2 % (37.5-50.1); Hemoglobin 11.2 g/dL (12.9-16.9); Immature Granulocytes % 0.4 % (0-4); Lymphocytes # 0.7 K/mcL (0.6-4.6); Mean Corpuscular HGB Conc 34.8 g/dL (31.6-35.5); Mean Corpuscular Hemoglobin 32.5 pg (28.0-33.3); Mean Corpuscular Volume 93.3 fL (83.0-100.0); Mean Platelet Volume 9.6 fL (9.4-12.4); Monocytes # 0.8 K/mcL (0.0-1.3); Monocytes % 7.6 %; Neutrophils # 8.8 K/mcL (1.6-8.9); Platelet Count 208 K/mcL (140-400); Red Blood Count 3.45 M/mcL (4.19-5.50); Red Cell Distribution Width 13.8 % (11.5-14.5); Segmented Neutrophils % 83.7 %; White Blood Count 10.6 K/mcL (4.3-11.1)
[2021-09-01] MEDS ORDERED: Morphine Sulfate 2 MG/ML SYRINGE IVP ONE (20:57)
[2021-09-01] MEDS ORDERED: Ondansetron 4 MG/2 ML VIAL IVP PRN (20:57)
[2021-09-01] MEDS ORDERED: Calcium Gluconate 1,000 MG/10 ML VIAL IVP ONE (21:19)
[2021-09-01 21:20] LABS: Albumin/Globulin Ratio 0.9 (1.1-2.2); Bilirubin,Indirect 0.5 mg/dL (0.0-1.0); Bilirubin,Total 0.5 mg/dL (0.3-1.0); Calcium 9.2 mg/dL (8.6-10.3); Globulin 4.3 g/dL (2.4-3.5); Potassium 6.7 mEq/L (3.5-5.1); Total Protein 8.3 g/dL (6.4-8.9); Troponin I 0.1 ng/mL (< 0.04)
[2021-09-01] MEDS ORDERED: Insulin Human Regular 10 UNIT in 0.9 % Sodium Chloride 10 ML IV ONE (21:20)
[2021-09-01] MEDS ORDERED: Albuterol 2.5 MG/3 ML NEBULIZER IH ONE (21:20)
[2021-09-01] MEDS ORDERED: *HR* Dextrose 50 % in Water (Vial) 50 ML VIAL IVP ONE (21:21)
[2021-09-01] MEDS ORDERED: Pantoprazole 40 MG VIAL IVP ONE (21:25)
[2021-09-01 21:26] LABS: Influenza A PCR Negative (Negative); Influenza B PCR Negative (Negative); Resp. Syncytial Virus PCR Negative (Negative)
[2021-09-01 21:29] LABS: SARS-CoV-2 by PCR (In House) Negative (Negative)
[2021-09-01] MEDS ORDERED: Calcium Gluconate 1gm/50mL BAG IVPB ONE (21:30)
[2021-09-01] MEDS ORDERED: Piperacillin/Tazobactam 3.375 GM in 0.9 % Sodium Chloride Mini Bag 100 ML IVPB ONE (22:14)
[2021-09-01] MEDS: SODIUM ZIRCONIUM CYCLOSILICATE 5 GM POWD.PACK PO SCH (22:20)
[2021-09-02] MEDS ORDERED: Naloxone 0.4 MG/ML INJ IVP PRN (00:16)
[2021-09-02] MEDS ORDERED: Acetaminophen 325 MG TABLET PO PRN (00:16)
[2021-09-02 00:24] LABS: Calcium 8.7 mg/dL (8.6-10.3); Potassium 4.8 mEq/L (3.5-5.1)
[2021-09-02] MEDS ORDERED: Dextrose 4 GM Chewable Tablets PO PRN ×2 (00:48)
[2021-09-02] MEDS ORDERED: D5% in Water 1,000 ML IVC PRN (00:48)
[2021-09-02] MEDS ORDERED: *HR* Dextrose 50 % in Water (Syg) 50 ML SYRINGE IVP PRN (00:48)
[2021-09-02] MEDS ORDERED: Insulin DETEMIR 100 UNIT/ML X5UNITS SUBQ PRN (01:25)
[2021-09-02] MEDS: carvediloL 25 MG TABLET PO SCH ×3 (02:14→17:22)
[2021-09-02] MEDS: cloNIDine HCL 0.1 MG TABLET PO SCH ×3 (02:14→17:25)
[2021-09-02] MEDS: Insulin LISPRO 300 UNITS/3 ML VIAL SUBQ SCH ×5 (05:40→17:26)
[2021-09-02] MEDS ORDERED: Pantoprazole 40 MG VIAL IVP SCH (06:00)
[2021-09-02] MEDS ORDERED: 0.9 % Sodium Chloride 250 ML IVC PRN (07:16)
[2021-09-02] MEDS ORDERED: 0.9 % Sodium Chloride 1,000 ML PRIME SCH (07:30)
[2021-09-02] MEDS: SODIUM ZIRCONIUM CYCLOSILICATE 5 GM POWD.PACK PO SCH (08:26)
[2021-09-02] MEDS ORDERED: Ethyl Chloride Spray Bottle (104 SPRAY/BOTTLE) TP PRN (10:25)
[2021-09-02] MEDS: NIFEdipine XL (24 HR) 60 MG TAB.ER.24 PO SCH (14:17)
[2021-09-02] MEDS ORDERED: Ondansetron 4 MG/2 ML VIAL IVP PRN (20:31)
[2021-09-03] MEDS: cloNIDine HCL 0.1 MG TABLET PO SCH ×3 (01:46→16:46)
[2021-09-03] MEDS: Insulin LISPRO 300 UNITS/3 ML VIAL SUBQ SCH ×3 (07:56→16:45)
[2021-09-03] MEDS: NIFEdipine XL (24 HR) 60 MG TAB.ER.24 PO SCH (07:57)
[2021-09-03] MEDS: carvediloL 25 MG TABLET PO SCH ×2 (07:57→16:46)
[2021-09-03] MEDS: SODIUM ZIRCONIUM CYCLOSILICATE 5 GM POWD.PACK PO SCH (07:58)
[2021-09-03] MEDS: Aspirin Enteric Coated 81 MG Tablet PO SCH (11:02)
[2021-09-03] MEDS ORDERED: Bumetanide 1 MG TABLET PO SCH (11:30)
[2021-09-03] MEDS: Pantoprazole 40 MG VIAL IVP SCH (11:40)
[2021-09-03 12:21] LABS: Basophils % 0.4 %; Eosinophils # 0.2 K/mcL (0.0-0.6); Eosinophils % 2.4 %; Hematocrit 29.4 % (37.5-50.1); Hemoglobin 10.3 g/dL (12.9-16.9); Immature Granulocytes % 0.4 % (0-4); Lymphocytes # 0.7 K/mcL (0.6-4.6); Lymphocytes % 8.7 %; Mean Corpuscular Hemoglobin 33.4 pg (28.0-33.3); Mean Corpuscular Volume 95.5 fL (83.0-100.0); Mean Platelet Volume 9.4 fL (9.4-12.4); Monocytes # 0.5 K/mcL (0.0-1.3); Monocytes % 6.8 %; Neutrophils # 6.1 K/mcL (1.6-8.9); Platelet Count 179 K/mcL (140-400); Red Blood Count 3.08 M/mcL (4.19-5.50); Red Cell Distribution Width 13.9 % (11.5-14.5); Segmented Neutrophils % 81.3 %; White Blood Count 7.5 K/mcL (4.3-11.1)
[2021-09-03 12:32] LABS: Calcium 8.7 mg/dL (8.6-10.3); Potassium 6.1 mEq/L (3.5-5.1)
[2021-09-03 20:17] LABS: Bilirubin,Urine Negative (Negative); Blood,Urine Large (Negative); Clarity,Urine Turbid (Clear); Color,Urine Light-Yellow (Yellow); Glucose,Urine (UA) 300 mg/dL (Normal); Ketones,Urine Negative (Negative); Leukocyte Esterase,Urine Large (Negative); Nitrite,Urine Negative (Negative); Protein,Urine >=600 mg/dL (Neg-Trace); Specific Gravity,Urine 1.012 (1.010-1.025); Urobilinogen,Urine Normal (Normal); WBC,Urine 50-100 per hpf (0-3)
[2021-09-03] MEDS ORDERED: amLODIPine 5 MG TABLET PO SCH (21:00)
[2021-09-03] MEDS: Gabapentin 100 MG CAPSULE PO SCH (21:03)
[2021-09-03] MEDS: Insulin DETEMIR 100 UNIT/ML X5UNITS SUBQ SCH (21:06)
[2021-09-04] MEDS: cloNIDine HCL 0.1 MG TABLET PO SCH ×3 (02:12→17:02)
[2021-09-04 02:31] LABS: Basophils % 0.3 %; Eosinophils # 0.1 K/mcL (0.0-0.6); Eosinophils % 1.8 %; Hematocrit 27.8 % (37.5-50.1); Hemoglobin 9.3 g/dL (12.9-16.9); Immature Granulocytes % 0.6 % (0-4); Lymphocytes # 0.7 K/mcL (0.6-4.6); Mean Corpuscular HGB Conc 33.5 g/dL (31.6-35.5); Mean Corpuscular Hemoglobin 32.2 pg (28.0-33.3); Mean Corpuscular Volume 96.2 fL (83.0-100.0); Mean Platelet Volume 9.5 fL (9.4-12.4); Monocytes # 0.6 K/mcL (0.0-1.3); Monocytes % 8.2 %; Neutrophils # 5.3 K/mcL (1.6-8.9); Platelet Count 190 K/mcL (140-400); Red Blood Count 2.89 M/mcL (4.19-5.50); Red Cell Distribution Width 13.7 % (11.5-14.5); Segmented Neutrophils % 78.1 %; White Blood Count 6.7 K/mcL (4.3-11.1)
[2021-09-04 02:48] LABS: Calcium 8.6 mg/dL (8.6-10.3); Potassium 5.1 mEq/L (3.5-5.1)
[2021-09-04] MEDS ORDERED: 0.9 % Sodium Chloride 250 ML IVC PRN (07:16)
[2021-09-04] MEDS: Aspirin Enteric Coated 81 MG Tablet PO SCH (08:00)
[2021-09-04] MEDS: Pantoprazole 40 MG VIAL IVP SCH (08:00)
[2021-09-04] MEDS: Insulin LISPRO 300 UNITS/3 ML VIAL SUBQ SCH ×3 (08:02→17:12)
[2021-09-04] MEDS: carvediloL 25 MG TABLET PO SCH ×2 (11:32→17:02)
[2021-09-04] MEDS: NIFEdipine XL (24 HR) 60 MG TAB.ER.24 PO SCH (11:53)
[2021-09-04] MEDS: Gabapentin 100 MG CAPSULE PO SCH (21:46)
[2021-09-04] MEDS: Insulin DETEMIR 100 UNIT/ML X5UNITS SUBQ SCH (21:48)
[2021-09-05 00:32] VITALS: O2SAT 100
[2021-09-05 04:40] LABS: Basophils % 0.3 %; Eosinophils # 0.1 K/mcL (0.0-0.6); Eosinophils % 1.7 %; Hematocrit 29.2 % (37.5-50.1); Hemoglobin 9.8 g/dL (12.9-16.9); Immature Granulocytes % 0.3 % (0-4); Lymphocytes # 0.7 K/mcL (0.6-4.6); Lymphocytes % 10.3 %; Mean Corpuscular HGB Conc 33.6 g/dL (31.6-35.5); Mean Corpuscular Hemoglobin 32.8 pg (28.0-33.3); Mean Corpuscular Volume 97.7 fL (83.0-100.0); Mean Platelet Volume 9.3 fL (9.4-12.4); Monocytes # 0.5 K/mcL (0.0-1.3); Monocytes % 8.4 %; Neutrophils # 5.1 K/mcL (1.6-8.9); Platelet Count 213 K/mcL (140-400); Red Blood Count 2.99 M/mcL (4.19-5.50); Red Cell Distribution Width 13.7 % (11.5-14.5); White Blood Count 6.4 K/mcL (4.3-11.1)
[2021-09-05 04:59] LABS: Calcium 9.1 mg/dL (8.6-10.3); Potassium 4.9 mEq/L (3.5-5.1)
[2021-09-05 05:06] LABS: % Iron Saturation 25 % (20-55); Iron 46 mcg/dL (65-175); Transferrin 134 mg/dL (203-362)
[2021-09-05 05:19] LABS: Ferritin > 1500 ng/mL (20-250)
[2021-09-05 06:56] VITALS: BP 96/64; PULSE 65; TEMP 98.3
[2021-09-05] MEDS: cloNIDine HCL 0.1 MG TABLET PO SCH ×2 (07:20→07:59)
[2021-09-05] MEDS: carvediloL 25 MG TABLET PO SCH (07:58)
[2021-09-05] MEDS: Insulin LISPRO 300 UNITS/3 ML VIAL SUBQ SCH ×2 (07:58→11:30)
[2021-09-05] MEDS: NIFEdipine XL (24 HR) 60 MG TAB.ER.24 PO SCH (07:59)
[2021-09-05] MEDS: Aspirin Enteric Coated 81 MG Tablet PO SCH (08:35)
[2021-09-05] MEDS: Pantoprazole 40 MG VIAL IVP SCH (08:35)
== END 2021-09-05 13:33 | disposition home or self-care (01) | DRG 391 ==
LOC: 2ANU 19:18 → EMEROOARM 19:18 → 2ANU 23:57
PROVIDERS: ADMIT Internal Medicine; ATTEND Internal Medicine

== ENCOUNTER 2021-09-08 14:40 | Inpatient (IN) ==
[2021-09-08] MEDS ORDERED: Acetaminophen 325 MG TABLET PO ONE (15:40)
[2021-09-08] MEDS ORDERED: Doxycycline 100 MG CAPSULE PO ONE (15:42)
[2021-09-08 16:24] LABS: Basophils % 0.3 %; Eosinophils # 0.2 K/mcL (0.0-0.6); Hematocrit 28.3 % (37.5-50.1); Hemoglobin 9.8 g/dL (12.9-16.9); Immature Granulocytes % 0.6 % (0-4); Lymphocytes # 0.8 K/mcL (0.6-4.6); Lymphocytes % 12.6 %; Mean Corpuscular HGB Conc 34.6 g/dL (31.6-35.5); Mean Corpuscular Hemoglobin 32.1 pg (28.0-33.3); Mean Corpuscular Volume 92.8 fL (83.0-100.0); Monocytes # 0.6 K/mcL (0.0-1.3); Monocytes % 9.3 %; Neutrophils # 4.8 K/mcL (1.6-8.9); Platelet Count 245 K/mcL (140-400); Red Blood Count 3.05 M/mcL (4.19-5.50); Red Cell Distribution Width 13.4 % (11.5-14.5); Segmented Neutrophils % 74.2 %; White Blood Count 6.4 K/mcL (4.3-11.1)
[2021-09-08 16:39] LABS: Calcium 9.4 mg/dL (8.6-10.3); Potassium 4.3 mEq/L (3.5-5.1)
[2021-09-08] MEDS ORDERED: *HR* HYDROcodone/Acet 5/325 mg TABLET PO ONE (18:41)
[2021-09-08] MEDS ORDERED: Naloxone 0.4 MG/ML INJ IVP PRN ×2 (19:57→20:01)
[2021-09-08] MEDS ORDERED: Acetaminophen 325 MG TABLET PO PRN (20:01)
[2021-09-08] MEDS ORDERED: Dextrose Gel 15 GM/37.5 ML TUBE PO PRN ×2 (20:02)
[2021-09-08] MEDS ORDERED: *HR* Dextrose 50 % in Water (Syg) 50 ML SYRINGE IVP PRN (20:02)
[2021-09-08] MEDS ORDERED: D5% in Water 1,000 ML IVC PRN (20:02)
[2021-09-08] MEDS ORDERED: Piperacillin/Tazobactam 3.375 GM in 0.9 % Sodium Chloride Mini Bag 100 ML IVPB ONE (20:04)
[2021-09-08] MEDS ORDERED: Vancomycin 1,250 MG/262.5 ML IV.SOLN IVPB ONE (20:05)
[2021-09-08] MEDS: Insulin LISPRO 300 UNITS/3 ML VIAL SUBQ SCH (21:43)
[2021-09-08] MEDS: *HR* OxyCODONE Immed Rel 5 MG TABLET PO PRN (22:05)
[2021-09-09 02:30] LABS: Hemoglobin 9.4 g/dL (12.9-16.9); Mean Corpuscular HGB Conc 34.8 g/dL (31.6-35.5); Mean Corpuscular Hemoglobin 32.3 pg (28.0-33.3); Mean Corpuscular Volume 92.8 fL (83.0-100.0); Mean Platelet Volume 9.4 fL (9.4-12.4); Platelet Count 237 K/mcL (140-400); Red Blood Count 2.91 M/mcL (4.19-5.50); Red Cell Distribution Width 13.3 % (11.5-14.5); White Blood Count 5.8 K/mcL (4.3-11.1)
[2021-09-09 02:45] LABS: Calcium 9.3 mg/dL (8.6-10.3); Magnesium 1.8 mg/dL (1.6-2.6); Phosphorous 4.9 mg/dL (2.7-4.5); Potassium 4.4 mEq/L (3.5-5.1)
[2021-09-09] MEDS: *HR* OxyCODONE Immed Rel 5 MG TABLET PO PRN ×3 (04:17→20:32)
[2021-09-09] MEDS: Insulin LISPRO 300 UNITS/3 ML VIAL SUBQ SCH ×4 (07:16→17:55)
[2021-09-09] MEDS ORDERED: 0.9 % Sodium Chloride 250 ML IVC PRN (10:04)
[2021-09-09] MEDS ORDERED: 0.9 % Sodium Chloride 2,000 ML PRIME SCH (10:15)
[2021-09-09] MEDS: cloNIDine HCL 0.1 MG TABLET PO SCH ×2 (11:42→20:31)
[2021-09-09] MEDS: carvediloL 25 MG TABLET PO SCH ×2 (11:42→19:14)
[2021-09-09] MEDS: NIFEdipine XL (24 HR) 60 MG TAB.ER.24 PO SCH (11:42)
[2021-09-09] MEDS ORDERED: Piperacillin/Tazobactam 3.375 GM in 0.9 % Sodium Chloride Mini Bag 100 ML IVPB SCH ×2 (16:00→18:00)
[2021-09-09] MEDS: *HR* Heparin 5,000 UNIT/ML VIAL SQ SCH (19:15)
[2021-09-09] MEDS: Gabapentin 100 MG CAPSULE PO SCH (20:31)
[2021-09-09] MEDS: amLODIPine 5 MG TABLET PO SCH (20:32)
[2021-09-09] MEDS: Piperacillin/Tazobactam 3.375 GM in 0.9 % Sodium Chloride Mini Bag 100 ML IVPB SCH (20:32)
[2021-09-09] MEDS: Insulin DETEMIR 100 UNIT/ML X5UNITS SUBQ SCH (20:33)
[2021-09-10] MEDS: cloNIDine HCL 0.1 MG TABLET PO SCH ×3 (02:51→19:48)
[2021-09-10] MEDS: *HR* OxyCODONE Immed Rel 5 MG TABLET PO PRN (02:51)
[2021-09-10] MEDS: *HR* Heparin 5,000 UNIT/ML VIAL SQ SCH ×2 (05:24→16:19)
[2021-09-10] MEDS: Piperacillin/Tazobactam 3.375 GM in 0.9 % Sodium Chloride Mini Bag 100 ML IVPB SCH (09:33)
[2021-09-10] MEDS: NIFEdipine XL (24 HR) 60 MG TAB.ER.24 PO SCH (09:33)
[2021-09-10] MEDS: Aspirin Enteric Coated 81 MG Tablet PO SCH (09:33)
[2021-09-10] MEDS: carvediloL 25 MG TABLET PO SCH ×2 (09:33→16:18)
[2021-09-10] MEDS: Insulin LISPRO 300 UNITS/3 ML VIAL SUBQ SCH ×3 (09:34→16:07)
[2021-09-10] MEDS: *HR* OxyCODONE/APAP 10/325 TABLET PO PRN ×2 (10:26→20:32)
[2021-09-10 12:19] LABS: Basophils % 0.6 %; Hematocrit 33.4 % (37.5-50.1)
[2021-09-10 12:21] LABS: Eosinophils # 0.1 K/mcL (0.0-0.6); Eosinophils % 2.9 %; Immature Granulocytes % 0.4 % (0-4); Immature Platelets 2.1 % (1.1-6.1); Lymphocytes # 0.7 K/mcL (0.6-4.6); Lymphocytes % 13.4 %; Mean Corpuscular HGB Conc 32.9 g/dL (31.6-35.5); Mean Corpuscular Hemoglobin 32.4 pg (28.0-33.3); Mean Corpuscular Volume 98.5 fL (83.0-100.0); Mean Platelet Volume 9.7 fL (9.4-12.4); Monocytes # 0.4 K/mcL (0.0-1.3); Monocytes % 8.4 %; Neutrophils # 3.6 K/mcL (1.6-8.9); Platelet Count 249 K/mcL (140-400); Red Blood Count 3.39 M/mcL (4.19-5.50); Red Cell Distribution Width 13.6 % (11.5-14.5); Segmented Neutrophils % 74.3 %; White Blood Count 4.9 K/mcL (4.3-11.1)
[2021-09-10 12:38] LABS: Calcium 9.2 mg/dL (8.6-10.3); Potassium 4.6 mEq/L (3.5-5.1)
[2021-09-10] MEDS: Ondansetron ODT 4 MG TAB.RAPDIS SL PRN (17:54)
[2021-09-10] MEDS: Insulin DETEMIR 100 UNIT/ML X5UNITS SUBQ SCH (19:48)
[2021-09-10] MEDS: amLODIPine 5 MG TABLET PO SCH (19:48)
[2021-09-10] MEDS: Gabapentin 100 MG CAPSULE PO SCH (20:30)
[2021-09-11] MEDS: cloNIDine HCL 0.1 MG TABLET PO SCH ×3 (02:04→20:05)
[2021-09-11] MEDS: *HR* Heparin 5,000 UNIT/ML VIAL SQ SCH ×2 (02:24→15:53)
[2021-09-11] MEDS: *HR* OxyCODONE/APAP 10/325 TABLET PO PRN ×2 (05:04→15:52)
[2021-09-11 07:08] LABS: Basophils % 0.7 %; Eosinophils # 0.2 K/mcL (0.0-0.6); Eosinophils % 3.6 %; Hematocrit 29.9 % (37.5-50.1); Hemoglobin 10.2 g/dL (12.9-16.9); Immature Granulocytes % 0.5 % (0-4); Lymphocytes # 0.8 K/mcL (0.6-4.6); Lymphocytes % 14.8 %; Mean Corpuscular HGB Conc 34.1 g/dL (31.6-35.5); Mean Corpuscular Hemoglobin 32.7 pg (28.0-33.3); Mean Corpuscular Volume 95.8 fL (83.0-100.0); Monocytes # 0.5 K/mcL (0.0-1.3); Neutrophils # 3.9 K/mcL (1.6-8.9); Platelet Count 229 K/mcL (140-400); Red Blood Count 3.12 M/mcL (4.19-5.50); Red Cell Distribution Width 13.2 % (11.5-14.5); Segmented Neutrophils % 71.4 %; White Blood Count 5.5 K/mcL (4.3-11.1)
[2021-09-11 08:03] LABS: Calcium 9.2 mg/dL (8.6-10.3); Potassium 5.2 mEq/L (3.5-5.1)
[2021-09-11] MEDS ORDERED: 0.9 % Sodium Chloride 250 ML IVC PRN (08:53)
[2021-09-11] MEDS ORDERED: *HR* Heparin 10,000 UNIT/10 ML VIAL IV PRN (08:53)
[2021-09-11] MEDS: Insulin LISPRO 300 UNITS/3 ML VIAL SUBQ SCH ×3 (09:33→15:53)
[2021-09-11] MEDS: Aspirin Enteric Coated 81 MG Tablet PO SCH (09:34)
[2021-09-11] MEDS: carvediloL 25 MG TABLET PO SCH ×2 (09:34→15:52)
[2021-09-11] MEDS: NIFEdipine XL (24 HR) 60 MG TAB.ER.24 PO SCH (09:34)
[2021-09-11] MEDS: Ondansetron ODT 4 MG TAB.RAPDIS SL PRN (11:12)
[2021-09-11] MEDS: Gabapentin 100 MG CAPSULE PO SCH (20:05)
[2021-09-11] MEDS: Insulin DETEMIR 100 UNIT/ML X5UNITS SUBQ SCH (21:25)
[2021-09-12] MEDS: *HR* OxyCODONE/APAP 10/325 TABLET PO PRN ×2 (01:35→17:49)
[2021-09-12 01:50] LABS: Basophils % 0.3 %; Eosinophils # 0.2 K/mcL (0.0-0.6); Eosinophils % 2.9 %; Hematocrit 29.8 % (37.5-50.1); Hemoglobin 9.8 g/dL (12.9-16.9); Immature Granulocytes % 0.3 % (0-4); Lymphocytes # 0.7 K/mcL (0.6-4.6); Lymphocytes % 11.3 %; Mean Corpuscular HGB Conc 32.9 g/dL (31.6-35.5); Mean Corpuscular Hemoglobin 31.9 pg (28.0-33.3); Mean Corpuscular Volume 97.1 fL (83.0-100.0); Mean Platelet Volume 9.1 fL (9.4-12.4); Monocytes # 0.5 K/mcL (0.0-1.3); Monocytes % 7.2 %; Neutrophils # 4.9 K/mcL (1.6-8.9); Platelet Count 221 K/mcL (140-400); Red Blood Count 3.07 M/mcL (4.19-5.50); Red Cell Distribution Width 13.2 % (11.5-14.5); White Blood Count 6.3 K/mcL (4.3-11.1)
[2021-09-12 02:12] LABS: Calcium 9.1 mg/dL (8.6-10.3); Potassium 5.3 mEq/L (3.5-5.1)
[2021-09-12] MEDS: cloNIDine HCL 0.1 MG TABLET PO SCH ×3 (05:24→20:54)
[2021-09-12] MEDS: *HR* Heparin 5,000 UNIT/ML VIAL SQ SCH ×2 (06:05→17:59)
[2021-09-12] MEDS: Insulin LISPRO 300 UNITS/3 ML VIAL SUBQ SCH ×3 (08:15→17:59)
[2021-09-12] MEDS: NIFEdipine XL (24 HR) 60 MG TAB.ER.24 PO SCH (10:53)
[2021-09-12] MEDS: carvediloL 25 MG TABLET PO SCH ×2 (10:53→17:49)
[2021-09-12] MEDS: Aspirin Enteric Coated 81 MG Tablet PO SCH (10:53)
[2021-09-12] MEDS ORDERED: Bupivacaine/EPI 1:200k 0.25% 50 ML VIAL ONE (14:20)
[2021-09-12] MEDS ORDERED: Lidocaine -MPF 2% 2 ML VIAL ONE (14:31)
[2021-09-12] MEDS ORDERED: *HR* FentaNYL (PF) 100 MCG/2 ML VIAL ONE (14:31)
[2021-09-12] MEDS ORDERED: *HR* Midazolam HCl 2 MG/2 ML VIAL ONE (14:32)
[2021-09-12] MEDS ORDERED: *HR* Propofol 200 MG/20 ML VIAL IVP ONE (14:32)
[2021-09-12] MEDS ORDERED: EPHEDrine 50 MG/ML VIAL ONE (16:07)
[2021-09-12] MEDS: Piperacillin/Tazobactam 3.375 GM in 0.9 % Sodium Chloride Mini Bag 100 ML IVPB SCH (17:54)
[2021-09-12] MEDS: Insulin DETEMIR 100 UNIT/ML X5UNITS SUBQ SCH (20:51)
[2021-09-12] MEDS: Gabapentin 100 MG CAPSULE PO SCH (20:52)
[2021-09-13] MEDS ORDERED: *HR* HYDROmorphone 2 MG TABLET PO ONE (00:20)
[2021-09-13] MEDS: Ondansetron ODT 4 MG TAB.RAPDIS SL PRN ×2 (02:32→12:41)
[2021-09-13] MEDS: cloNIDine HCL 0.1 MG TABLET PO SCH ×3 (04:53→18:37)
[2021-09-13] MEDS: *HR* Heparin 5,000 UNIT/ML VIAL SQ SCH ×2 (05:24→18:37)
[2021-09-13] MEDS: Piperacillin/Tazobactam 3.375 GM in 0.9 % Sodium Chloride Mini Bag 100 ML IVPB SCH ×2 (05:33→18:37)
[2021-09-13] MEDS: *HR* OxyCODONE/APAP 10/325 TABLET PO PRN ×2 (05:34→20:33)
[2021-09-13 06:07] LABS: Basophils % 0.4 %; Eosinophils # 0.2 K/mcL (0.0-0.6); Eosinophils % 2.3 %; Hematocrit 29.8 % (37.5-50.1); Immature Granulocytes % 0.4 % (0-4); Lymphocytes # 0.8 K/mcL (0.6-4.6); Lymphocytes % 9.5 %; Mean Corpuscular HGB Conc 33.6 g/dL (31.6-35.5); Mean Corpuscular Hemoglobin 32.8 pg (28.0-33.3); Mean Corpuscular Volume 97.7 fL (83.0-100.0); Mean Platelet Volume 9.2 fL (9.4-12.4); Monocytes # 0.6 K/mcL (0.0-1.3); Monocytes % 6.9 %; Neutrophils # 6.7 K/mcL (1.6-8.9); Platelet Count 236 K/mcL (140-400); Red Blood Count 3.05 M/mcL (4.19-5.50); Red Cell Distribution Width 13.1 % (11.5-14.5); Segmented Neutrophils % 80.5 %; White Blood Count 8.3 K/mcL (4.3-11.1)
[2021-09-13 06:25] LABS: Calcium 9.2 mg/dL (8.6-10.3)
[2021-09-13] MEDS ORDERED: 0.9 % Sodium Chloride 250 ML IVC PRN (08:54)
[2021-09-13] MEDS ORDERED: *HR* Heparin 10,000 UNIT/10 ML VIAL IV PRN (08:54)
[2021-09-13] MEDS: Aspirin Enteric Coated 81 MG Tablet PO SCH (09:10)
[2021-09-13] MEDS: NIFEdipine XL (24 HR) 60 MG TAB.ER.24 PO SCH (09:20)
[2021-09-13] MEDS: Insulin LISPRO 300 UNITS/3 ML VIAL SUBQ SCH ×3 (09:29→16:24)
[2021-09-13] MEDS: carvediloL 25 MG TABLET PO SCH ×2 (09:29→16:23)
[2021-09-13] MEDS ORDERED: Vancomycin 1,250 MG/262.5 ML IV.SOLN IVPB ONE (16:00)
[2021-09-13] MEDS: Gabapentin 100 MG CAPSULE PO SCH (20:32)
[2021-09-13] MEDS: Insulin DETEMIR 100 UNIT/ML X5UNITS SUBQ SCH (20:32)
[2021-09-14] MEDS: *HR* OxyCODONE/APAP 10/325 TABLET PO PRN ×2 (03:44→19:49)
[2021-09-14 04:08] LABS: Basophils % 0.5 %; Eosinophils # 0.2 K/mcL (0.0-0.6); Eosinophils % 2.8 %; Hematocrit 26.9 % (37.5-50.1); Hemoglobin 8.9 g/dL (12.9-16.9); Immature Granulocytes % 0.3 % (0-4); Lymphocytes # 0.7 K/mcL (0.6-4.6); Lymphocytes % 10.7 %; Mean Corpuscular HGB Conc 33.1 g/dL (31.6-35.5); Mean Corpuscular Hemoglobin 32.6 pg (28.0-33.3); Mean Corpuscular Volume 98.5 fL (83.0-100.0); Mean Platelet Volume 9.1 fL (9.4-12.4); Monocytes # 0.5 K/mcL (0.0-1.3); Monocytes % 7.7 %; Neutrophils # 5.1 K/mcL (1.6-8.9); Platelet Count 199 K/mcL (140-400); Red Blood Count 2.73 M/mcL (4.19-5.50); Red Cell Distribution Width 13.2 % (11.5-14.5); White Blood Count 6.5 K/mcL (4.3-11.1)
[2021-09-14 04:27] LABS: Calcium 8.9 mg/dL (8.6-10.3)
[2021-09-14] MEDS: cloNIDine HCL 0.1 MG TABLET PO SCH ×3 (04:33→22:24)
[2021-09-14] MEDS: *HR* Heparin 5,000 UNIT/ML VIAL SQ SCH ×2 (04:53→16:56)
[2021-09-14] MEDS: Piperacillin/Tazobactam 3.375 GM in 0.9 % Sodium Chloride Mini Bag 100 ML IVPB SCH ×2 (05:38→16:54)
[2021-09-14] MEDS: NIFEdipine XL (24 HR) 60 MG TAB.ER.24 PO SCH (09:45)
[2021-09-14] MEDS: carvediloL 25 MG TABLET PO SCH ×2 (09:45→16:55)
[2021-09-14] MEDS ORDERED: Naloxone 0.4 MG/ML INJ IVP PRN (10:10)
[2021-09-14] MEDS ORDERED: D5% in Water 1,000 ML IVC PRN (10:10)
[2021-09-14] MEDS ORDERED: 0.9 % Sodium Chloride 2,000 ML PRIME SCH (10:10)
[2021-09-14] MEDS ORDERED: *HR* Dextrose 50 % in Water (Syg) 50 ML SYRINGE IVP PRN (10:10)
[2021-09-14] MEDS ORDERED: Acetaminophen 325 MG TABLET PO PRN (10:10)
[2021-09-14] MEDS ORDERED: Dextrose Gel 15 GM/37.5 ML TUBE PO PRN ×2 (10:10)
[2021-09-14] MEDS: Aspirin Enteric Coated 81 MG Tablet PO SCH ×2 (10:48→10:53)
[2021-09-14] MEDS: Insulin LISPRO 300 UNITS/3 ML VIAL SUBQ SCH ×3 (10:48→16:55)
[2021-09-14] MEDS: Ondansetron ODT 4 MG TAB.RAPDIS SL PRN (12:44)
[2021-09-14] MEDS: Gabapentin 100 MG CAPSULE PO SCH (19:49)
[2021-09-14] MEDS: Insulin DETEMIR 100 UNIT/ML X5UNITS SUBQ SCH (19:51)
[2021-09-15] MEDS ORDERED: polyethylene glycoL 3350 17 GM POWD.PACK PO PRN (02:29)
[2021-09-15] MEDS: cloNIDine HCL 0.1 MG TABLET PO SCH ×3 (04:24→19:37)
[2021-09-15] MEDS: Piperacillin/Tazobactam 3.375 GM in 0.9 % Sodium Chloride Mini Bag 100 ML IVPB SCH (05:05)
[2021-09-15] MEDS: *HR* Heparin 5,000 UNIT/ML VIAL SQ SCH ×2 (05:06→16:16)
[2021-09-15] MEDS: *HR* OxyCODONE/APAP 10/325 TABLET PO PRN ×3 (05:06→21:24)
[2021-09-15 05:56] LABS: Hematocrit 25.1 % (37.5-50.1); Hemoglobin 8.1 g/dL (12.9-16.9); Mean Corpuscular HGB Conc 32.3 g/dL (31.6-35.5); Mean Corpuscular Volume 99.2 fL (83.0-100.0); Mean Platelet Volume 9.4 fL (9.4-12.4); Platelet Count 185 K/mcL (140-400); Red Blood Count 2.53 M/mcL (4.19-5.50); Red Cell Distribution Width 13.2 % (11.5-14.5); White Blood Count 6.6 K/mcL (4.3-11.1)
[2021-09-15 06:27] LABS: Calcium 8.9 mg/dL (8.6-10.3)
[2021-09-15] MEDS: Insulin LISPRO 300 UNITS/3 ML VIAL SUBQ SCH ×3 (08:40→16:17)
[2021-09-15] MEDS: carvediloL 25 MG TABLET PO SCH ×2 (08:45→16:17)
[2021-09-15] MEDS: NIFEdipine XL (24 HR) 60 MG TAB.ER.24 PO SCH (08:45)
[2021-09-15] MEDS: Aspirin Enteric Coated 81 MG Tablet PO SCH (08:45)
[2021-09-15] MEDS ORDERED: Aspirin Enteric Coated 81 MG Tablet PO SCH (09:00)
[2021-09-15] MEDS ORDERED: Cefepime HCl 1,000 MG in 0.9 % Sodium Chloride 10 ML IVP ONE (13:52)
[2021-09-15] MEDS: Insulin DETEMIR 100 UNIT/ML X5UNITS SUBQ SCH (21:22)
[2021-09-15] MEDS: Gabapentin 100 MG CAPSULE PO SCH (21:23)
[2021-09-16] MEDS: cloNIDine HCL 0.1 MG TABLET PO SCH ×3 (02:58→21:22)
[2021-09-16] MEDS ORDERED: Isovue-370 500 ML BOTTLE IVP ONE (04:28)
[2021-09-16 04:33] LABS: Basophils % 0.2 %; Eosinophils # 0.1 K/mcL (0.0-0.6); Eosinophils % 0.7 %; Hematocrit 27.2 % (37.5-50.1); Hemoglobin 8.8 g/dL (12.9-16.9); Immature Granulocytes % 0.5 % (0-4); Lymphocytes # 0.4 K/mcL (0.6-4.6); Lymphocytes % 3.6 %; Mean Corpuscular HGB Conc 32.4 g/dL (31.6-35.5); Mean Corpuscular Hemoglobin 31.7 pg (28.0-33.3); Mean Corpuscular Volume 97.8 fL (83.0-100.0); Mean Platelet Volume 9.3 fL (9.4-12.4); Monocytes # 0.5 K/mcL (0.0-1.3); Monocytes % 3.8 %; Platelet Count 209 K/mcL (140-400); Red Blood Count 2.78 M/mcL (4.19-5.50); Red Cell Distribution Width 13.2 % (11.5-14.5); Segmented Neutrophils % 91.2 %
[2021-09-16 04:39] LABS: White Blood Count 12.1 K/mcL (4.3-11.1)
[2021-09-16 04:42] LABS: INR 1.3; Prothrombin Time 14.7 Seconds (9.4-12.1)
[2021-09-16 04:51] LABS: Albumin 3.6 g/dL (3.5-5.7); Albumin/Globulin Ratio 0.9 (1.1-2.2); Bilirubin,Total 0.4 mg/dL (0.3-1.0); Calcium 9.1 mg/dL (8.6-10.3); Globulin 3.8 g/dL (2.4-3.5); Potassium 5.8 mEq/L (3.5-5.1); Total Protein 7.4 g/dL (6.4-8.9)
[2021-09-16 05:57] LABS: Troponin I 0.04 ng/mL (< 0.04)
[2021-09-16] MEDS ORDERED: Aspirin Enteric Coated 325 MG Tablet PO SCH (06:15)
[2021-09-16] MEDS ORDERED: Morphine Sulfate 2 MG/ML SYRINGE IVP STA (06:16)
[2021-09-16] MEDS: *HR* Heparin 5,000 UNIT/ML VIAL SQ SCH ×2 (06:31→16:38)
[2021-09-16] MEDS: carvediloL 25 MG TABLET PO SCH ×2 (08:39→18:21)
[2021-09-16] MEDS: NIFEdipine XL (24 HR) 60 MG TAB.ER.24 PO SCH (08:40)
[2021-09-16] MEDS: Insulin LISPRO 300 UNITS/3 ML VIAL SUBQ SCH ×3 (08:46→18:17)
[2021-09-16] MEDS ORDERED: 0.9 % Sodium Chloride 250 ML IVC PRN (09:02)
[2021-09-16 09:21] LABS: Activated Partial Thrombo Time 40.6 Seconds (26.0-36.0)
[2021-09-16 10:52] LABS: Hematocrit 23.5 % (37.5-50.1); Hemoglobin 7.8 g/dL (12.9-16.9); Mean Corpuscular HGB Conc 33.2 g/dL (31.6-35.5); Mean Corpuscular Hemoglobin 32.5 pg (28.0-33.3); Mean Corpuscular Volume 97.9 fL (83.0-100.0); Mean Platelet Volume 9.6 fL (9.4-12.4); Platelet Count 187 K/mcL (140-400); Red Cell Distribution Width 13.4 % (11.5-14.5); White Blood Count 10.7 K/mcL (4.3-11.1)
[2021-09-16 11:19] LABS: Calcium 8.7 mg/dL (8.6-10.3); Potassium 4.5 mEq/L (3.5-5.1)
[2021-09-16] MEDS ORDERED: Perflutren Lipid Microsphere 1.3 ML in 0.9 % Sodium Chloride 8.7 ML IVP PRN (11:30)
[2021-09-16] MEDS: *HR* OxyCODONE/APAP 10/325 TABLET PO PRN ×2 (12:38→21:22)
[2021-09-16] MEDS ORDERED: Vancomycin 500 MG in 0.9 % Sodium Chloride Mini Bag 100 ML IVPB ONE (18:00)
[2021-09-16] MEDS: DAPTOmycin 650 MG in 0.9 % Sodium Chloride 100 ML IVPB SCH (18:17)
[2021-09-16] MEDS: Gabapentin 100 MG CAPSULE PO SCH (21:23)
[2021-09-16] MEDS: Insulin DETEMIR 100 UNIT/ML X5UNITS SUBQ SCH (21:24)
[2021-09-17 02:58] LABS: Hemoglobin 7.5 g/dL (12.9-16.9); Mean Corpuscular HGB Conc 32.6 g/dL (31.6-35.5); Mean Corpuscular Hemoglobin 32.3 pg (28.0-33.3); Mean Corpuscular Volume 99.1 fL (83.0-100.0); Mean Platelet Volume 9.4 fL (9.4-12.4); Platelet Count 165 K/mcL (140-400); Red Blood Count 2.32 M/mcL (4.19-5.50); Red Cell Distribution Width 13.5 % (11.5-14.5); White Blood Count 8.8 K/mcL (4.3-11.1)
[2021-09-17 03:09] LABS: Calcium 8.8 mg/dL (8.6-10.3); Potassium 4.6 mEq/L (3.5-5.1)
[2021-09-17] MEDS: cloNIDine HCL 0.1 MG TABLET PO SCH ×3 (04:40→21:05)
[2021-09-17] MEDS: *HR* OxyCODONE/APAP 10/325 TABLET PO PRN ×3 (04:40→17:11)
[2021-09-17] MEDS: *HR* Heparin 5,000 UNIT/ML VIAL SQ SCH ×2 (04:42→16:55)
[2021-09-17] MEDS: NIFEdipine XL (24 HR) 60 MG TAB.ER.24 PO SCH (09:55)
[2021-09-17] MEDS: carvediloL 25 MG TABLET PO SCH ×2 (09:55→16:57)
[2021-09-17] MEDS: Insulin LISPRO 300 UNITS/3 ML VIAL SUBQ SCH ×3 (09:55→17:05)
[2021-09-17] MEDS: Aspirin 81 MG TAB.CHEW PO SCH (10:03)
[2021-09-17] MEDS: Gabapentin 100 MG CAPSULE PO SCH (21:05)
[2021-09-17] MEDS: Insulin DETEMIR 100 UNIT/ML X5UNITS SUBQ SCH (21:17)
[2021-09-18] MEDS: cloNIDine HCL 0.1 MG TABLET PO SCH ×3 (03:57→22:28)
[2021-09-18] MEDS: *HR* HYDROmorphone (PF) 1 MG/ML SYRINGE IVP PRN ×2 (04:25→15:34)
[2021-09-18] MEDS: *HR* Heparin 5,000 UNIT/ML VIAL SQ SCH ×2 (04:25→17:15)
[2021-09-18 04:53] LABS: Hematocrit 22.2 % (37.5-50.1); Hemoglobin 7.2 g/dL (12.9-16.9); Mean Corpuscular HGB Conc 32.4 g/dL (31.6-35.5); Mean Corpuscular Volume 98.7 fL (83.0-100.0); Mean Platelet Volume 9.6 fL (9.4-12.4); Platelet Count 176 K/mcL (140-400); Red Blood Count 2.25 M/mcL (4.19-5.50); Red Cell Distribution Width 13.4 % (11.5-14.5); White Blood Count 7.7 K/mcL (4.3-11.1)
[2021-09-18 05:08] LABS: Calcium 9.1 mg/dL (8.6-10.3); Potassium 4.3 mEq/L (3.5-5.1)
[2021-09-18] MEDS: Aspirin 81 MG TAB.CHEW PO SCH (08:33)
[2021-09-18] MEDS: Insulin LISPRO 300 UNITS/3 ML VIAL SUBQ SCH ×3 (08:33→17:16)
[2021-09-18] MEDS: carvediloL 25 MG TABLET PO SCH ×2 (08:33→17:40)
[2021-09-18] MEDS: NIFEdipine XL (24 HR) 60 MG TAB.ER.24 PO SCH (08:34)
[2021-09-18] MEDS ORDERED: 0.9 % Sodium Chloride 250 ML IVC PRN (12:36)
[2021-09-18] MEDS: Ondansetron ODT 4 MG TAB.RAPDIS SL PRN (15:36)
[2021-09-18] MEDS: DAPTOmycin 650 MG in 0.9 % Sodium Chloride 100 ML IVPB SCH (17:17)
[2021-09-18] MEDS: *HR* OxyCODONE/APAP 10/325 TABLET PO PRN (22:28)
[2021-09-18] MEDS: Gabapentin 100 MG CAPSULE PO SCH (22:29)
[2021-09-18] MEDS: Insulin DETEMIR 100 UNIT/ML X5UNITS SUBQ SCH (22:48)
[2021-09-19] MEDS: cloNIDine HCL 0.1 MG TABLET PO SCH ×3 (02:37→20:36)
[2021-09-19] MEDS: *HR* HYDROmorphone (PF) 1 MG/ML SYRINGE IVP PRN (02:38)
[2021-09-19] MEDS: Ondansetron ODT 4 MG TAB.RAPDIS SL PRN (04:18)
[2021-09-19] MEDS: Aspirin 81 MG TAB.CHEW PO SCH (08:50)
[2021-09-19] MEDS: carvediloL 25 MG TABLET PO SCH ×2 (08:50→16:29)
[2021-09-19] MEDS: NIFEdipine XL (24 HR) 60 MG TAB.ER.24 PO SCH (08:51)
[2021-09-19] MEDS: Insulin LISPRO 300 UNITS/3 ML VIAL SUBQ SCH ×3 (09:11→16:29)
[2021-09-19 09:58] LABS: Basophils % 0.2 %; Eosinophils # 0.2 K/mcL (0.0-0.6); Eosinophils % 2.8 %; Hematocrit 23.1 % (37.5-50.1); Hemoglobin 7.5 g/dL (12.9-16.9); Immature Granulocytes % 0.4 % (0-4); Lymphocytes # 0.5 K/mcL (0.6-4.6); Lymphocytes % 9.1 %; Mean Corpuscular HGB Conc 32.5 g/dL (31.6-35.5); Mean Corpuscular Hemoglobin 31.5 pg (28.0-33.3); Mean Corpuscular Volume 97.1 fL (83.0-100.0); Mean Platelet Volume 9.6 fL (9.4-12.4); Monocytes # 0.4 K/mcL (0.0-1.3); Monocytes % 7.5 %; Neutrophils # 4.2 K/mcL (1.6-8.9); Platelet Count 202 K/mcL (140-400); Red Blood Count 2.38 M/mcL (4.19-5.50); Red Cell Distribution Width 13.4 % (11.5-14.5); White Blood Count 5.3 K/mcL (4.3-11.1)
[2021-09-19 10:09] LABS: Calcium 9.1 mg/dL (8.6-10.3); Potassium 3.8 mEq/L (3.5-5.1)
[2021-09-19] MEDS: *HR* Heparin 5,000 UNIT/ML VIAL SQ SCH ×2 (11:49→16:29)
[2021-09-19] MEDS: *HR* OxyCODONE/APAP 10/325 TABLET PO PRN ×2 (14:37→20:37)
[2021-09-19] MEDS: Insulin DETEMIR 100 UNIT/ML X5UNITS SUBQ SCH (20:36)
[2021-09-19] MEDS: Gabapentin 100 MG CAPSULE PO SCH (20:37)
[2021-09-20] MEDS: Ondansetron ODT 4 MG TAB.RAPDIS SL PRN ×3 (00:19→18:05)
[2021-09-20] MEDS: cloNIDine HCL 0.1 MG TABLET PO SCH ×3 (03:38→18:05)
[2021-09-20] MEDS: *HR* Heparin 5,000 UNIT/ML VIAL SQ SCH ×2 (05:46→17:25)
[2021-09-20 06:35] LABS: Basophils % 0.2 %; Eosinophils # 0.1 K/mcL (0.0-0.6); Hematocrit 26.8 % (37.5-50.1); Hemoglobin 8.6 g/dL (12.9-16.9); Immature Granulocytes % 0.4 % (0-4); Lymphocytes # 0.3 K/mcL (0.6-4.6); Lymphocytes % 3.8 %; Mean Corpuscular HGB Conc 32.1 g/dL (31.6-35.5); Mean Corpuscular Hemoglobin 31.4 pg (28.0-33.3); Mean Corpuscular Volume 97.8 fL (83.0-100.0); Mean Platelet Volume 9.5 fL (9.4-12.4); Monocytes # 0.5 K/mcL (0.0-1.3); Monocytes % 5.4 %; Platelet Count 211 K/mcL (140-400); Red Blood Count 2.74 M/mcL (4.19-5.50); Red Cell Distribution Width 13.3 % (11.5-14.5); Segmented Neutrophils % 89.2 %
[2021-09-20 06:49] LABS: Calcium 9.1 mg/dL (8.6-10.3)
[2021-09-20] MEDS: Insulin LISPRO 300 UNITS/3 ML VIAL SUBQ SCH ×3 (07:44→17:13)
[2021-09-20] MEDS: carvediloL 25 MG TABLET PO SCH ×2 (07:45→17:13)
[2021-09-20] MEDS: Aspirin 81 MG TAB.CHEW PO SCH (07:45)
[2021-09-20] MEDS: NIFEdipine XL (24 HR) 60 MG TAB.ER.24 PO SCH (07:46)
[2021-09-20] MEDS ORDERED: Ethyl Chloride Spray Bottle (104 SPRAY/BOTTLE) TP PRN (10:13)
[2021-09-20] MEDS ORDERED: 0.9 % Sodium Chloride 250 ML IVC PRN (10:13)
[2021-09-20 13:20] LABS: Hepatitis B Surface Antibody < 3.10 mIU/mL
[2021-09-20 13:42] LABS: Hepatitis B Surface Antigen Nonreactive (Nonreactive)
[2021-09-20] MEDS ORDERED: levoFLOXacin 750 MG/150 ML 750 MG/150 ML BAG IVPB ONE (15:00)
[2021-09-20 15:48] VITALS: BP 124/63; PULSE 68; TEMP 98; O2SAT 100
[2021-09-20] MEDS: *HR* HYDROmorphone (PF) 1 MG/ML SYRINGE IVP PRN (17:19)
[2021-09-20] MEDS: DAPTOmycin 650 MG in 0.9 % Sodium Chloride 100 ML IVPB SCH (18:34)
[2021-09-20] MEDS: Gabapentin 100 MG CAPSULE PO SCH (19:52)
[2021-09-20] MEDS: Insulin DETEMIR 100 UNIT/ML X5UNITS SUBQ SCH (20:02)
[2021-09-22] MEDS ORDERED: levoFLOXacin 500 MG TABLET PO SCH (12:00)
== END 2021-09-20 20:05 | DRG 616 ==
LOC: EMEROOARM 14:40 → 2ANU 14:40 → SUATTDRO 20:24 → 2ANU 21:03 → SUATTDRO 09-09 11:17
PROVIDERS: ADMIT Family Medicine; ATTEND Family Medicine

== ENCOUNTER 2021-12-16 09:24 | Inpatient (IN) ==
[2021-12-16 12:52] LABS: Basophils % 0.4 %; Eosinophils # 0.1 K/mcL (0.0-0.6); Hematocrit 33.1 % (37.5-50.1); Hemoglobin 10.7 g/dL (12.9-16.9); Immature Granulocytes % 0.3 % (0-4); Lymphocytes # 0.8 K/mcL (0.6-4.6); Mean Corpuscular HGB Conc 32.3 g/dL (31.6-35.5); Mean Corpuscular Hemoglobin 30.4 pg (28.0-33.3); Mean Platelet Volume 10.2 fL (9.4-12.4); Monocytes # 0.5 K/mcL (0.0-1.3); Monocytes % 7.1 %; Neutrophils # 5.4 K/mcL (1.6-8.9); Platelet Count 205 K/mcL (140-400); Red Blood Count 3.52 M/mcL (4.19-5.50); Red Cell Distribution Width 16.9 % (11.5-14.5); Segmented Neutrophils % 79.2 %; White Blood Count 6.9 K/mcL (4.3-11.1)
[2021-12-16] MEDS ORDERED: Ondansetron ODT 4 MG TAB.RAPDIS ONE (13:11)
[2021-12-16 13:13] LABS: Calcium 9.2 mg/dL (8.6-10.3); Potassium 5.9 mEq/L (3.5-5.1)
[2021-12-16 13:18] LABS: Troponin I 0.09 ng/mL (< 0.04)
[2021-12-16] MEDS ORDERED: Vancomycin 1,000 MG VIAL ONE (15:16)
[2021-12-16] MEDS ORDERED: Piperacillin/Tazobactam 3.375 GM VIAL ONE (15:16)
[2021-12-16] MEDS ORDERED: 0.9 % Sodium Chloride Mini Bag 100 ML ONE (15:16)
[2021-12-16] MEDS ORDERED: 0.9 % Sodium Chloride 250 ML ONE (15:16)
[2021-12-16] MEDS ORDERED: Piperacillin/Tazobactam 3.375 GM in 0.9 % Sodium Chloride Mini Bag 100 ML IVPB ONE (17:00)
[2021-12-16] MEDS ORDERED: Vancomycin 1,000 MG in 0.9 % Sodium Chloride Mini Bag 100 ML IVPB ONE (17:00)
[2021-12-16] MEDS ORDERED: Ondansetron ODT 4 MG TAB.RAPDIS PO ONE (17:15)
[2021-12-16] MEDS ORDERED: Naloxone 0.4 MG/ML INJ IVP PRN (21:02)
[2021-12-16] MEDS ORDERED: Dextrose Gel 15 GM/37.5 ML TUBE PO PRN ×2 (21:15)
[2021-12-16] MEDS ORDERED: *HR* Dextrose 50 % in Water (Syg) 50 ML SYRINGE IVP PRN (21:15)
[2021-12-16] MEDS ORDERED: D5% in Water 1,000 ML IVC PRN (21:15)
[2021-12-16] MEDS ORDERED: *HR* Labetalol 20 MG/4 ML SYRINGE IVP ONE ×2 (23:45→23:56)
[2021-12-17 01:22] LABS: Hematocrit 32.5 % (37.5-50.1); Hemoglobin 10.4 g/dL (12.9-16.9); Mean Corpuscular Hemoglobin 30.3 pg (28.0-33.3); Mean Corpuscular Volume 94.8 fL (83.0-100.0); Mean Platelet Volume 9.4 fL (9.4-12.4); Platelet Count 173 K/mcL (140-400); Red Blood Count 3.43 M/mcL (4.19-5.50); Red Cell Distribution Width 16.9 % (11.5-14.5); White Blood Count 6.6 K/mcL (4.3-11.1)
[2021-12-17 01:43] LABS: Troponin I 0.09 ng/mL (< 0.04)
[2021-12-17] MEDS ORDERED: Morphine Sulfate 2 MG/ML SYRINGE ONE (01:47)
[2021-12-17] MEDS: Insulin LISPRO 300 UNITS/3 ML VIAL SUBQ SCH ×5 (02:38→21:35)
[2021-12-17 02:43] LABS: Calcium 9.1 mg/dL (8.6-10.3); Magnesium 1.8 mg/dL (1.6-2.6); Phosphorous 7.6 mg/dL (2.7-4.5); Potassium 6.2 mEq/L (3.5-5.1)
[2021-12-17] MEDS ORDERED: Iopamidol - 370 500 ML MLS IVP ONE (03:13)
[2021-12-17] MEDS ORDERED: *HR* Dextrose 50 % in Water (Syg) 50 ML SYRINGE IVP ONE (03:28)
[2021-12-17] MEDS ORDERED: Insulin Human Regular 10 UNIT in 0.9 % Sodium Chloride 10 ML IV ONE (03:28)
[2021-12-17] MEDS: SODIUM ZIRCONIUM CYCLOSILICATE 5 GM POWD.PACK PO SCH ×3 (03:49→15:00)
[2021-12-17 03:50] LABS: Prolactin 28.61 ng/mL (3.00-14.70)
[2021-12-17] MEDS ORDERED: levETIRAcetam 1,000 MG in 0.9 % Sodium Chloride 100 ML IVPB ONE (04:14)
[2021-12-17 07:38] LABS: Calcium 8.8 mg/dL (8.6-10.3); Potassium 6.8 mEq/L (3.5-5.1)
[2021-12-17] MEDS ORDERED: 0.9 % Sodium Chloride 250 ML IVC PRN (08:28)
[2021-12-17] MEDS: *HR* LORazepam 2 MG/ML VIAL IVP PRN ×2 (08:29→14:40)
[2021-12-17] MEDS ORDERED: 0.9 % Sodium Chloride 2,000 ML PRIME SCH (08:30)
[2021-12-17] MEDS ORDERED: 0.9 % Sodium Chloride 1,000 ML ONE (08:45)
[2021-12-17 12:23] LABS: Hepatitis B Surface Antibody < 3.10 mIU/mL
[2021-12-17 12:34] LABS: Hepatitis B Surface Antigen Nonreactive (Nonreactive)
[2021-12-17] MEDS: Gabapentin 100 MG CAPSULE PO SCH (21:34)
[2021-12-17] MEDS: *HR* Heparin 5,000 UNIT/ML VIAL SQ SCH ×2 (21:35→23:39)
[2021-12-17] MEDS: cloNIDine HCL 0.1 MG TABLET PO SCH (21:35)
[2021-12-17] MEDS: carvediloL 25 MG TABLET PO SCH (21:38)
[2021-12-18] MEDS: cloNIDine HCL 0.1 MG TABLET PO SCH ×3 (02:32→20:23)
[2021-12-18 03:48] LABS: Basophils % 0.6 %; Eosinophils # 0.2 K/mcL (0.0-0.6); Eosinophils % 3.9 %; Hematocrit 28.1 % (37.5-50.1); Immature Granulocytes % 0.4 % (0-4); Lymphocytes # 0.6 K/mcL (0.6-4.6); Lymphocytes % 11.8 %; Mean Corpuscular Hemoglobin 30.7 pg (28.0-33.3); Mean Corpuscular Volume 95.9 fL (83.0-100.0); Mean Platelet Volume 9.2 fL (9.4-12.4); Monocytes # 0.6 K/mcL (0.0-1.3); Monocytes % 13.3 %; Neutrophils # 3.4 K/mcL (1.6-8.9); Platelet Count 170 K/mcL (140-400); Red Blood Count 2.93 M/mcL (4.19-5.50); Red Cell Distribution Width 16.4 % (11.5-14.5); White Blood Count 4.8 K/mcL (4.3-11.1)
[2021-12-18 04:27] LABS: Calcium 8.6 mg/dL (8.6-10.3); Potassium 4.4 mEq/L (3.5-5.1)
[2021-12-18] MEDS: *HR* Heparin 5,000 UNIT/ML VIAL SQ SCH ×3 (05:40→20:35)
[2021-12-18 09:16] LABS: Folate 11.8 ng/mL (3.0-16.0)
[2021-12-18] MEDS: NIFEdipine XL (24 HR) 30 MG TAB.ER.24 PO SCH (10:12)
[2021-12-18] MEDS: Acetaminophen 325 MG TABLET PO PRN (10:14)
[2021-12-18] MEDS: Aspirin Enteric Coated 81 MG Tablet PO SCH (10:15)
[2021-12-18] MEDS: Insulin LISPRO 300 UNITS/3 ML VIAL SUBQ SCH ×4 (10:16→21:45)
[2021-12-18] MEDS: Thiamine (B-1) 100 MG in 0.9 % Sodium Chloride 50 ML IVPB SCH ×2 (10:24→20:34)
[2021-12-18] MEDS: carvediloL 25 MG TABLET PO SCH ×2 (10:24→15:48)
[2021-12-18] MEDS: Darbepoetin 100 MCG/0.5 ML SYRINGE SQ SCH (12:59)
[2021-12-18] MEDS: Gabapentin 100 MG CAPSULE PO SCH (20:23)
[2021-12-18] MEDS: *HR* LORazepam 2 MG/ML VIAL IVP PRN (20:25)
[2021-12-19] MEDS: Acetaminophen 325 MG TABLET PO PRN ×2 (03:26→10:21)
[2021-12-19] MEDS: cloNIDine HCL 0.1 MG TABLET PO SCH ×3 (03:26→18:27)
[2021-12-19] MEDS: *HR* LORazepam 2 MG/ML VIAL IVP PRN ×2 (03:32→21:02)
[2021-12-19 03:50] LABS: ABG Base Excess 3 mEq/L (-2 to 3); ABG HCO3 28 mEq/L (21-27); ABG Oxygen Saturation 90 % (95-98); ABG PCO2 40 mmHg (35-45); ABG PH 7.45 pH Units (7.32-7.45); ABG PO2 55 mmHg (85-104); ABG TCO2 29 mEq/L (20-26)
[2021-12-19] MEDS: *HR* Heparin 5,000 UNIT/ML VIAL SQ SCH ×3 (06:11→22:55)
[2021-12-19] MEDS ORDERED: Ondansetron 4 MG/2 ML VIAL IVP ONE (06:46)
[2021-12-19] MEDS ORDERED: 0.9 % Sodium Chloride 250 ML IVC PRN (07:50)
[2021-12-19] MEDS: Ethyl Chloride Spray Bottle (104 SPRAY/BOTTLE) TP PRN (09:45)
[2021-12-19] MEDS: Insulin LISPRO 300 UNITS/3 ML VIAL SUBQ SCH ×4 (09:59→21:01)
[2021-12-19] MEDS: carvediloL 25 MG TABLET PO SCH ×2 (10:00→16:45)
[2021-12-19] MEDS: Aspirin Enteric Coated 81 MG Tablet PO SCH (10:00)
[2021-12-19] MEDS: NIFEdipine XL (24 HR) 30 MG TAB.ER.24 PO SCH (10:00)
[2021-12-19] MEDS: Thiamine (B-1) 100 MG in 0.9 % Sodium Chloride 50 ML IVPB SCH ×3 (10:25→20:47)
[2021-12-19 10:51] LABS: Basophils % 0.3 %; Hematocrit 31.8 % (37.5-50.1); Hemoglobin 10.3 g/dL (12.9-16.9); Immature Granulocytes % 0.5 % (0-4); Lymphocytes # 0.5 K/mcL (0.6-4.6); Lymphocytes % 3.4 %; Mean Corpuscular HGB Conc 32.4 g/dL (31.6-35.5); Mean Corpuscular Hemoglobin 30.8 pg (28.0-33.3); Mean Corpuscular Volume 95.2 fL (83.0-100.0); Mean Platelet Volume 9.7 fL (9.4-12.4); Monocytes # 0.8 K/mcL (0.0-1.3); Monocytes % 5.8 %; Neutrophils # 12.8 K/mcL (1.6-8.9); Platelet Count 220 K/mcL (140-400); Red Blood Count 3.34 M/mcL (4.19-5.50); Red Cell Distribution Width 15.9 % (11.5-14.5)
[2021-12-19 10:52] LABS: Eosinophils # 0.1 K/mcL (0.0-0.6); White Blood Count 14.4 K/mcL (4.3-11.1)
[2021-12-19 11:05] LABS: Calcium 8.7 mg/dL (8.6-10.3); Potassium 4.1 mEq/L (3.5-5.1)
[2021-12-19] MEDS ORDERED: Albumin 25% 25gram/100mL 25 GM/100 ML IV.SOLN IVPB ONE (11:53)
[2021-12-19] MEDS: Piperacillin/Tazobactam 3.375 GM in 0.9 % Sodium Chloride Mini Bag 100 ML IVPB SCH (14:24)
[2021-12-19 15:35] LABS: Adenovirus Not Detected (Not Detect); Bordetella Pertussis Not Detected (Not Detect); Chlamydophila pneumoniae Not Detected (Not Detect); Coronavirus 229E Not Detected (Not Detect); Coronavirus HKU1 Not Detected (Not Detect); Coronavirus NL63 Not Detected (Not Detect); Coronavirus OC43 Not Detected (Not Detect); Human Metapneumovirus Not Detected (Not Detect); Human Rhinovirus/Enterovirus Not Detected (Not Detect); Influenza A Subtype 2009 H1 Not Detected (Not Detect); Influenza B Not Detected (Not Detect); Mycoplasma pneumoniae Not Detected (Not Detect); Parainfluenza Virus 1 Not Detected (Not Detect); Parainfluenza Virus 2 Not Detected (Not Detect); Parainfluenza Virus 3 Not Detected (Not Detect); Parainfluenza Virus 4 Not Detected (Not Detect); Respiratory Syncytial Virus Not Detected (Not Detect); SARS-CoV-2 Not Detected (Not Detect)
[2021-12-19] MEDS: Gabapentin 100 MG CAPSULE PO SCH (20:07)
[2021-12-20] MEDS: cloNIDine HCL 0.1 MG TABLET PO SCH ×3 (05:33→19:59)
[2021-12-20] MEDS: Piperacillin/Tazobactam 3.375 GM in 0.9 % Sodium Chloride Mini Bag 100 ML IVPB SCH ×2 (05:39→17:09)
[2021-12-20] MEDS: *HR* Heparin 5,000 UNIT/ML VIAL SQ SCH ×3 (06:12→20:10)
[2021-12-20] MEDS ORDERED: 0.9 % Sodium Chloride 250 ML IVC PRN (07:26)
[2021-12-20] MEDS ORDERED: 0.9 % Sodium Chloride 2,000 ML PRIME SCH (07:30)
[2021-12-20] MEDS: Insulin LISPRO 300 UNITS/3 ML VIAL SUBQ SCH ×4 (08:36→19:45)
[2021-12-20] MEDS: Aspirin Enteric Coated 81 MG Tablet PO SCH (08:38)
[2021-12-20] MEDS: carvediloL 25 MG TABLET PO SCH ×2 (08:38→17:10)
[2021-12-20] MEDS: NIFEdipine XL (24 HR) 30 MG TAB.ER.24 PO SCH (08:38)
[2021-12-20] MEDS: Ethyl Chloride Spray Bottle (104 SPRAY/BOTTLE) TP PRN (10:05)
[2021-12-20] MEDS: Thiamine (B-1) 100 MG in 0.9 % Sodium Chloride 50 ML IVPB SCH ×2 (10:22→21:46)
[2021-12-20 10:25] LABS: Basophils % 0.2 %; Eosinophils # 0.2 K/mcL (0.0-0.6); Eosinophils % 3.4 %; Hematocrit 24.5 % (37.5-50.1); Immature Granulocytes % 0.4 % (0-4); Lymphocytes # 0.6 K/mcL (0.6-4.6); Lymphocytes % 12.1 %; Mean Corpuscular HGB Conc 30.6 g/dL (31.6-35.5); Mean Corpuscular Hemoglobin 30.5 pg (28.0-33.3); Mean Corpuscular Volume 99.6 fL (83.0-100.0); Mean Platelet Volume 9.6 fL (9.4-12.4); Monocytes # 0.2 K/mcL (0.0-1.3); Monocytes % 4.4 %; Neutrophils # 4.2 K/mcL (1.6-8.9); Platelet Count 123 K/mcL (140-400); Red Blood Count 2.46 M/mcL (4.19-5.50); Red Cell Distribution Width 15.9 % (11.5-14.5); Segmented Neutrophils % 79.5 %
[2021-12-20] MEDS ORDERED: Albumin 25% 25gram/100mL 25 GM/100 ML IV.SOLN ONE (10:26)
[2021-12-20 10:32] LABS: Hemoglobin 7.5 g/dL (12.9-16.9); White Blood Count 5.3 K/mcL (4.3-11.1)
[2021-12-20 10:44] LABS: Calcium 8.3 mg/dL (8.6-10.3); Potassium 3.1 mEq/L (3.5-5.1)
[2021-12-20] MEDS ORDERED: Albumin 25% 25gram/100mL 25 GM/100 ML IV.SOLN IVPB ONE (13:08)
[2021-12-20] MEDS ORDERED: 0.9 % Sodium Chloride 500 ML IVC ONE (13:17)
[2021-12-20] MEDS ORDERED: 0.9 % Sodium Chloride 1,000 ML IV ONE (13:58)
[2021-12-20 14:36] LABS: Basophils % 0.5 %; Eosinophils # 0.3 K/mcL (0.0-0.6); Eosinophils % 4.5 %; Hematocrit 25.8 % (37.5-50.1); Hemoglobin 7.8 g/dL (12.9-16.9); Immature Granulocytes % 0.3 % (0-4); Lymphocytes # 0.7 K/mcL (0.6-4.6); Lymphocytes % 11.7 %; Mean Corpuscular HGB Conc 30.2 g/dL (31.6-35.5); Mean Corpuscular Hemoglobin 29.7 pg (28.0-33.3); Mean Corpuscular Volume 98.1 fL (83.0-100.0); Mean Platelet Volume 9.5 fL (9.4-12.4); Monocytes # 0.6 K/mcL (0.0-1.3); Monocytes % 9.6 %; Neutrophils # 4.4 K/mcL (1.6-8.9); Platelet Count 117 K/mcL (140-400); Red Blood Count 2.63 M/mcL (4.19-5.50); Red Cell Distribution Width 15.5 % (11.5-14.5); Segmented Neutrophils % 73.4 %
[2021-12-20] MEDS ORDERED: Sennosides/Docusate Sodium TABLET PO PRN (16:25)
[2021-12-20] MEDS: Gabapentin 100 MG CAPSULE PO SCH (20:00)
[2021-12-20] MEDS: *HR* HYDROcodone/Acet 5/325 mg TABLET PO PRN (20:09)
[2021-12-20] MEDS ORDERED: *HR* LORazepam 2 MG/ML VIAL IVP ONE (21:46)
[2021-12-21] MEDS: cloNIDine HCL 0.1 MG TABLET PO SCH ×4 (03:12→23:10)
[2021-12-21] MEDS: Piperacillin/Tazobactam 3.375 GM in 0.9 % Sodium Chloride Mini Bag 100 ML IVPB SCH ×2 (05:06→16:52)
[2021-12-21] MEDS: *HR* Heparin 5,000 UNIT/ML VIAL SQ SCH ×3 (05:12→22:09)
[2021-12-21] MEDS: Insulin LISPRO 300 UNITS/3 ML VIAL SUBQ SCH ×4 (07:07→22:08)
[2021-12-21] MEDS ORDERED: *HR* OxyCODONE Immed Rel 5 MG TABLET PO ONE (08:58)
[2021-12-21] MEDS: NIFEdipine XL (24 HR) 30 MG TAB.ER.24 PO SCH (09:12)
[2021-12-21] MEDS: Aspirin Enteric Coated 81 MG Tablet PO SCH (09:13)
[2021-12-21] MEDS: Thiamine (B-1) 100 MG in 0.9 % Sodium Chloride 50 ML IVPB SCH ×2 (09:13→22:11)
[2021-12-21] MEDS: carvediloL 25 MG TABLET PO SCH ×2 (09:13→16:26)
[2021-12-21] MEDS: *HR* HYDROcodone/Acet 5/325 mg TABLET PO PRN ×2 (12:12→19:04)
[2021-12-21] MEDS: *HR* LORazepam 2 MG/ML VIAL IVP PRN (13:45)
[2021-12-21] MEDS: Gabapentin 100 MG CAPSULE PO SCH (22:11)
[2021-12-22] MEDS: *HR* HYDROcodone/Acet 5/325 mg TABLET PO PRN (01:17)
[2021-12-22 03:17] LABS: Basophils % 0.4 %; Eosinophils # 0.3 K/mcL (0.0-0.6); Eosinophils % 3.6 %; Hematocrit 24.2 % (37.5-50.1); Hemoglobin 7.9 g/dL (12.9-16.9); Immature Granulocytes % 0.7 % (0-4); Lymphocytes # 0.6 K/mcL (0.6-4.6); Lymphocytes % 8.6 %; Mean Corpuscular HGB Conc 32.6 g/dL (31.6-35.5); Mean Corpuscular Hemoglobin 31.2 pg (28.0-33.3); Mean Corpuscular Volume 95.7 fL (83.0-100.0); Mean Platelet Volume 9.9 fL (9.4-12.4); Monocytes # 0.5 K/mcL (0.0-1.3); Monocytes % 6.9 %; Neutrophils # 5.8 K/mcL (1.6-8.9); Platelet Count 148 K/mcL (140-400); Red Blood Count 2.53 M/mcL (4.19-5.50); Red Cell Distribution Width 15.7 % (11.5-14.5); Segmented Neutrophils % 79.8 %; White Blood Count 7.2 K/mcL (4.3-11.1)
[2021-12-22 03:19] LABS: Calcium 8.5 mg/dL (8.6-10.3); Potassium 4.9 mEq/L (3.5-5.1)
[2021-12-22] MEDS: Piperacillin/Tazobactam 3.375 GM in 0.9 % Sodium Chloride Mini Bag 100 ML IVPB SCH ×2 (06:18→17:28)
[2021-12-22] MEDS: cloNIDine HCL 0.1 MG TABLET PO SCH (06:19)
[2021-12-22] MEDS: *HR* Heparin 5,000 UNIT/ML VIAL SQ SCH ×3 (06:19→20:48)
[2021-12-22] MEDS: Insulin LISPRO 300 UNITS/3 ML VIAL SUBQ SCH ×4 (09:04→20:48)
[2021-12-22] MEDS: carvediloL 25 MG TABLET PO SCH (09:05)
[2021-12-22] MEDS: NIFEdipine XL (24 HR) 30 MG TAB.ER.24 PO SCH (09:06)
[2021-12-22] MEDS: Aspirin Enteric Coated 81 MG Tablet PO SCH (09:06)
[2021-12-22] MEDS: Thiamine (B-1) 100 MG in 0.9 % Sodium Chloride 50 ML IVPB SCH ×2 (11:13→20:56)
[2021-12-22] MEDS: *HR* LORazepam 2 MG/ML VIAL IVP PRN (12:03)
[2021-12-22] MEDS ORDERED: 0.9 % Sodium Chloride 500 ML IVC ONE (12:54)
[2021-12-22] MEDS ORDERED: Albumin 25% 25gram/100mL 25 GM/100 ML IV.SOLN IVPB ONE (12:54)
[2021-12-22] MEDS: Gabapentin 100 MG CAPSULE PO SCH (20:47)
[2021-12-23] MEDS: *HR* HYDROcodone/Acet 5/325 mg TABLET PO PRN ×2 (01:35→22:20)
[2021-12-23] MEDS: *HR* Heparin 5,000 UNIT/ML VIAL SQ SCH ×3 (06:19→22:21)
[2021-12-23] MEDS: Piperacillin/Tazobactam 3.375 GM in 0.9 % Sodium Chloride Mini Bag 100 ML IVPB SCH ×2 (06:19→17:20)
[2021-12-23] MEDS ORDERED: 0.9 % Sodium Chloride 250 ML IVC PRN (08:24)
[2021-12-23] MEDS: Insulin LISPRO 300 UNITS/3 ML VIAL SUBQ SCH ×4 (09:26→22:08)
[2021-12-23] MEDS: Ethyl Chloride Spray Bottle (104 SPRAY/BOTTLE) TP PRN ×2 (10:04→10:09)
[2021-12-23] MEDS ORDERED: Ethyl Chloride Spray Bottle (104 SPRAY/BOTTLE) TP PRN (10:05)
[2021-12-23 10:36] LABS: Basophils % 0.5 %; Eosinophils # 0.2 K/mcL (0.0-0.6); Eosinophils % 3.5 %; Hemoglobin 8.3 g/dL (12.9-16.9); Immature Granulocytes % 0.7 % (0-4); Lymphocytes # 0.5 K/mcL (0.6-4.6); Mean Corpuscular HGB Conc 31.9 g/dL (31.6-35.5); Mean Corpuscular Hemoglobin 30.6 pg (28.0-33.3); Mean Corpuscular Volume 95.9 fL (83.0-100.0); Mean Platelet Volume 9.4 fL (9.4-12.4); Monocytes # 0.3 K/mcL (0.0-1.3); Monocytes % 5.2 %; Neutrophils # 4.8 K/mcL (1.6-8.9); Platelet Count 162 K/mcL (140-400); Red Blood Count 2.71 M/mcL (4.19-5.50); Red Cell Distribution Width 15.8 % (11.5-14.5); Segmented Neutrophils % 81.1 %
[2021-12-23 11:05] LABS: Calcium 8.7 mg/dL (8.6-10.3); Potassium 4.5 mEq/L (3.5-5.1)
[2021-12-23] MEDS ORDERED: Ipratropium/Albuterol Neb 3 ML IH PRN (11:20)
[2021-12-23] MEDS: Aspirin Enteric Coated 81 MG Tablet PO SCH (15:08)
[2021-12-23] MEDS: *HR* LORazepam 2 MG/ML VIAL IVP PRN (15:09)
[2021-12-23] MEDS: Thiamine (B-1) 100 MG in 0.9 % Sodium Chloride 50 ML IVPB SCH ×2 (15:17→22:15)
[2021-12-23] MEDS: Acetaminophen 325 MG TABLET PO PRN (17:20)
[2021-12-23] MEDS: Gabapentin 100 MG CAPSULE PO SCH (22:14)
[2021-12-24] MEDS: *HR* Heparin 5,000 UNIT/ML VIAL SQ SCH ×3 (06:44→21:47)
[2021-12-24] MEDS: Piperacillin/Tazobactam 3.375 GM in 0.9 % Sodium Chloride Mini Bag 100 ML IVPB SCH ×2 (06:44→16:41)
[2021-12-24] MEDS: Insulin LISPRO 300 UNITS/3 ML VIAL SUBQ SCH ×4 (08:09→21:52)
[2021-12-24] MEDS: Aspirin Enteric Coated 81 MG Tablet PO SCH (08:10)
[2021-12-24] MEDS: Thiamine (B-1) 100 MG in 0.9 % Sodium Chloride 50 ML IVPB SCH (10:27)
[2021-12-24] MEDS ORDERED: 0.9 % Sodium Chloride 250 ML IVC PRN (10:34)
[2021-12-24] MEDS: *HR* HYDROcodone/Acet 5/325 mg TABLET PO PRN (11:54)
[2021-12-24 15:36] LABS: Basophils % 0.3 %; Eosinophils # 0.1 K/mcL (0.0-0.6); Eosinophils % 1.9 %; Hematocrit 24.3 % (37.5-50.1); Hemoglobin 7.9 g/dL (12.9-16.9); Immature Granulocytes % 0.4 % (0-4); Lymphocytes # 0.6 K/mcL (0.6-4.6); Lymphocytes % 8.8 %; Mean Corpuscular HGB Conc 32.5 g/dL (31.6-35.5); Mean Corpuscular Volume 95.3 fL (83.0-100.0); Mean Platelet Volume 9.9 fL (9.4-12.4); Monocytes # 0.5 K/mcL (0.0-1.3); Monocytes % 7.3 %; Neutrophils # 5.6 K/mcL (1.6-8.9); Platelet Count 159 K/mcL (140-400); Red Blood Count 2.55 M/mcL (4.19-5.50); Red Cell Distribution Width 15.3 % (11.5-14.5); Segmented Neutrophils % 81.3 %; White Blood Count 6.8 K/mcL (4.3-11.1)
[2021-12-24 15:51] LABS: Calcium 9.1 mg/dL (8.6-10.3); Potassium 3.6 mEq/L (3.5-5.1)
[2021-12-24 15:52] LABS: Magnesium 1.8 mg/dL (1.6-2.6); Phosphorous 3.1 mg/dL (2.7-4.5)
[2021-12-24] MEDS ORDERED: *HR* OxyCODONE/APAP 10/325 TABLET PO ONE (16:47)
[2021-12-24] MEDS: *HR* LORazepam 2 MG/ML VIAL IVP PRN (16:52)
[2021-12-24] MEDS ORDERED: Ondansetron ODT 4 MG TAB.RAPDIS SL PRN (16:55)
[2021-12-24] MEDS: Gabapentin 100 MG CAPSULE PO SCH (21:41)
[2021-12-25] MEDS: *HR* HYDROcodone/Acet 5/325 mg TABLET PO PRN ×2 (01:01→21:24)
[2021-12-25] MEDS: Piperacillin/Tazobactam 3.375 GM in 0.9 % Sodium Chloride Mini Bag 100 ML IVPB SCH ×2 (06:01→17:58)
[2021-12-25] MEDS: *HR* Heparin 5,000 UNIT/ML VIAL SQ SCH ×3 (06:09→23:28)
[2021-12-25] MEDS ORDERED: 0.9 % Sodium Chloride 250 ML IVC PRN (09:01)
[2021-12-25] MEDS: Insulin LISPRO 300 UNITS/3 ML VIAL SUBQ SCH ×4 (09:31→21:35)
[2021-12-25 10:41] LABS: Basophils % 0.3 %; Eosinophils # 0.2 K/mcL (0.0-0.6); Eosinophils % 3.1 %; Hematocrit 23.3 % (37.5-50.1); Hemoglobin 7.4 g/dL (12.9-16.9); Immature Granulocytes % 0.2 % (0-4); Lymphocytes # 0.6 K/mcL (0.6-4.6); Lymphocytes % 10.1 %; Mean Corpuscular HGB Conc 31.8 g/dL (31.6-35.5); Mean Corpuscular Hemoglobin 30.2 pg (28.0-33.3); Mean Corpuscular Volume 95.1 fL (83.0-100.0); Mean Platelet Volume 10.3 fL (9.4-12.4); Monocytes # 0.4 K/mcL (0.0-1.3); Monocytes % 6.6 %; Neutrophils # 4.7 K/mcL (1.6-8.9); Platelet Count 157 K/mcL (140-400); Red Blood Count 2.45 M/mcL (4.19-5.50); Red Cell Distribution Width 15.4 % (11.5-14.5); Segmented Neutrophils % 79.7 %; White Blood Count 5.9 K/mcL (4.3-11.1)
[2021-12-25 10:56] LABS: Calcium 9.1 mg/dL (8.6-10.3); Potassium 3.3 mEq/L (3.5-5.1)
[2021-12-25] MEDS: Darbepoetin 100 MCG/0.5 ML SYRINGE SQ SCH (13:31)
[2021-12-25] MEDS: Aspirin Enteric Coated 81 MG Tablet PO SCH (13:31)
[2021-12-25] MEDS: Gabapentin 100 MG CAPSULE PO SCH (21:22)
[2021-12-26] MEDS: *HR* Heparin 5,000 UNIT/ML VIAL SQ SCH ×3 (06:31→22:17)
[2021-12-26] MEDS: Piperacillin/Tazobactam 3.375 GM in 0.9 % Sodium Chloride Mini Bag 100 ML IVPB SCH (06:32)
[2021-12-26] MEDS: Insulin LISPRO 300 UNITS/3 ML VIAL SUBQ SCH ×4 (09:24→22:16)
[2021-12-26] MEDS: Aspirin Enteric Coated 81 MG Tablet PO SCH (09:29)
[2021-12-26] MEDS: *HR* HYDROcodone/Acet 5/325 mg TABLET PO PRN ×2 (09:29→21:02)
[2021-12-26] MEDS: Lactobacillus 1 EACH CAP.SPRINK PO SCH ×2 (10:27→20:59)
[2021-12-26] MEDS: Gabapentin 100 MG CAPSULE PO SCH (21:02)
[2021-12-26 23:59] VITALS: PULSE 73
[2021-12-27] MEDS: *HR* Heparin 5,000 UNIT/ML VIAL SQ SCH ×2 (07:21→13:44)
[2021-12-27 08:14] VITALS: O2SAT 90
[2021-12-27] MEDS ORDERED: 0.9 % Sodium Chloride 250 ML IVC PRN (08:34)
[2021-12-27 09:15] LABS: Influenza A PCR Negative (Negative); Influenza B PCR Negative (Negative); Resp. Syncytial Virus PCR Negative (Negative); SARS-CoV-2 by PCR (In House) Negative (Negative)
[2021-12-27] MEDS: Insulin LISPRO 300 UNITS/3 ML VIAL SUBQ SCH ×2 (09:58→13:49)
[2021-12-27] MEDS: Aspirin Enteric Coated 81 MG Tablet PO SCH (09:59)
[2021-12-27] MEDS: Lactobacillus 1 EACH CAP.SPRINK PO SCH (09:59)
[2021-12-27 11:15] LABS: Calcium 9.4 mg/dL (8.6-10.3); Potassium 4.3 mEq/L (3.5-5.1)
[2021-12-27 11:24] LABS: Basophils % 0.3 %; Eosinophils # 0.3 K/mcL (0.0-0.6); Eosinophils % 4.5 %; Hematocrit 25.1 % (37.5-50.1); Hemoglobin 7.9 g/dL (12.9-16.9); Immature Granulocytes % 0.8 % (0-4); Lymphocytes # 0.7 K/mcL (0.6-4.6); Lymphocytes % 10.5 %; Mean Corpuscular HGB Conc 31.5 g/dL (31.6-35.5); Mean Corpuscular Volume 95.4 fL (83.0-100.0); Monocytes # 0.5 K/mcL (0.0-1.3); Monocytes % 7.7 %; Neutrophils # 4.8 K/mcL (1.6-8.9); Platelet Count 175 K/mcL (140-400); Red Blood Count 2.63 M/mcL (4.19-5.50); Red Cell Distribution Width 15.4 % (11.5-14.5); Segmented Neutrophils % 76.2 %; White Blood Count 6.3 K/mcL (4.3-11.1)
[2021-12-27] MEDS ORDERED: carvediloL 6.25 MG TABLET PO SCH (13:36)
[2021-12-27] MEDS: *HR* HYDROcodone/Acet 5/325 mg TABLET PO PRN (13:48)
[2021-12-27 17:47] VITALS: BP 171/81; TEMP 97.6
== END 2021-12-27 15:36 | DRG 264 ==
LOC: EMEROOARM 09:24 → 2ANU 09:24 → SUATTDRO 12-17 02:09
PROVIDERS: ADMIT Internal Medicine; ATTEND Internal Medicine

== ENCOUNTER 2022-01-13 23:55 | Observation (INO) ==
[2022-01-14 02:40] LABS: Basophils % 0.3 %; Eosinophils # 0.3 K/mcL (0.0-0.6); Eosinophils % 3.5 %; Hematocrit 30.6 % (37.5-50.1); Hemoglobin 10.2 g/dL (12.9-16.9); Immature Granulocytes % 0.3 % (0-4); Lymphocytes # 1.1 K/mcL (0.6-4.6); Mean Corpuscular HGB Conc 33.3 g/dL (31.6-35.5); Mean Corpuscular Hemoglobin 31.6 pg (28.0-33.3); Mean Corpuscular Volume 94.7 fL (83.0-100.0); Mean Platelet Volume 9.7 fL (9.4-12.4); Monocytes # 0.8 K/mcL (0.0-1.3); Monocytes % 8.2 %; Neutrophils # 7.3 K/mcL (1.6-8.9); Platelet Count 243 K/mcL (140-400); Red Blood Count 3.23 M/mcL (4.19-5.50); Red Cell Distribution Width 15.7 % (11.5-14.5); Segmented Neutrophils % 76.7 %; White Blood Count 9.5 K/mcL (4.3-11.1)
[2022-01-14 02:54] LABS: Albumin 4.2 g/dL (3.5-5.7); Albumin/Globulin Ratio 1.1 (1.1-2.2); Bilirubin,Total 0.4 mg/dL (0.3-1.0); Calcium 10.3 mg/dL (8.6-10.3); Globulin 3.7 g/dL (2.4-3.5); Magnesium 1.8 mg/dL (1.6-2.6); Phosphorous 3.3 mg/dL (2.7-4.5); Potassium 6.1 mEq/L (3.5-5.1); Total Protein 7.9 g/dL (6.4-8.9); Troponin I 0.07 ng/mL (< 0.04)
[2022-01-14] MEDS ORDERED: Furosemide 40 MG/4 ML VIAL IVP ONE (03:06)
[2022-01-14] MEDS ORDERED: Insulin Human Regular 10 UNIT in 0.9 % Sodium Chloride 10 ML IV ONE (03:06)
[2022-01-14] MEDS ORDERED: *HR* Dextrose 50 % in Water (Syg) 50 ML SYRINGE IVP PRN ×2 (03:06→04:36)
[2022-01-14] MEDS ORDERED: Calcium Gluconate 1gm/50mL 1 GM/50 ML BAG IVPB ONE (03:06)
[2022-01-14] MEDS ORDERED: Albuterol 2.5 MG/3 ML NEBULIZER IH ONE (03:06)
[2022-01-14] MEDS ORDERED: Naloxone 0.4 MG/ML INJ IVP PRN ×2 (03:52→04:04)
[2022-01-14] MEDS ORDERED: Ondansetron ODT 4 MG TAB.RAPDIS SL PRN (03:52)
[2022-01-14] MEDS ORDERED: Melatonin 3 MG TABLET PO PRN (03:52)
[2022-01-14] MEDS: SODIUM ZIRCONIUM CYCLOSILICATE 5 GM POWD.PACK PO SCH (04:34)
[2022-01-14] MEDS ORDERED: Dextrose Gel 15 GM/37.5 ML TUBE PO PRN ×2 (04:36)
[2022-01-14] MEDS ORDERED: D5% in Water 1,000 ML IVC PRN (04:36)
[2022-01-14 05:19] LABS: Influenza A PCR Negative (Negative); Influenza B PCR Negative (Negative); Resp. Syncytial Virus PCR Negative (Negative)
[2022-01-14 07:13] LABS: SARS-CoV-2 by PCR (In House) Negative (Negative)
[2022-01-14] MEDS: Insulin LISPRO 300 UNITS/3 ML VIAL SUBQ SCH ×4 (07:44→21:39)
[2022-01-14] MEDS ORDERED: 0.9 % Sodium Chloride 250 ML IVC PRN (07:44)
[2022-01-14] MEDS ORDERED: Ethyl Chloride Spray Bottle (104 SPRAY/BOTTLE) TP PRN (07:44)
[2022-01-14] MEDS ORDERED: 0.9 % Sodium Chloride 2,000 ML PRIME SCH (07:45)
[2022-01-14 10:51] LABS: Hematocrit 29.1 % (37.5-50.1); Hemoglobin 9.4 g/dL (12.9-16.9); Mean Corpuscular HGB Conc 32.3 g/dL (31.6-35.5); Mean Corpuscular Hemoglobin 30.6 pg (28.0-33.3); Mean Corpuscular Volume 94.8 fL (83.0-100.0); Mean Platelet Volume 9.3 fL (9.4-12.4); Platelet Count 194 K/mcL (140-400); Red Blood Count 3.07 M/mcL (4.19-5.50); Red Cell Distribution Width 15.7 % (11.5-14.5); White Blood Count 8.2 K/mcL (4.3-11.1)
[2022-01-14 11:15] LABS: Calcium 9.5 mg/dL (8.6-10.3); Potassium 4.5 mEq/L (3.5-5.1)
[2022-01-14 11:25] LABS: Hepatitis B Surface Antibody < 3.10 mIU/mL
[2022-01-14 11:35] LABS: Hepatitis B Surface Antigen Nonreactive (Nonreactive)
[2022-01-14] MEDS ORDERED: levETIRAcetam 1,000 MG in 0.9 % Sodium Chloride 100 ML IVPB ONE (12:46)
[2022-01-14] MEDS ORDERED: *HR* LORazepam 2 MG/ML VIAL ONE (12:48)
[2022-01-14] MEDS ORDERED: *HR* HYDROmorphone (PF) 1 MG/ML SYRINGE IVP ONE (14:00)
[2022-01-14] MEDS ORDERED: *HR* HYDROcodone/Acet 5/325 mg TABLET PO PRN (17:26)
[2022-01-15 02:49] LABS: Hematocrit 29.5 % (37.5-50.1); Hemoglobin 9.5 g/dL (12.9-16.9); Mean Corpuscular HGB Conc 32.2 g/dL (31.6-35.5); Mean Corpuscular Hemoglobin 31.4 pg (28.0-33.3); Mean Corpuscular Volume 97.4 fL (83.0-100.0); Mean Platelet Volume 9.3 fL (9.4-12.4); Platelet Count 177 K/mcL (140-400); Red Blood Count 3.03 M/mcL (4.19-5.50); Red Cell Distribution Width 15.5 % (11.5-14.5); White Blood Count 6.6 K/mcL (4.3-11.1)
[2022-01-15 03:06] LABS: Calcium 9.5 mg/dL (8.6-10.3); Magnesium 1.7 mg/dL (1.6-2.6); Phosphorous 4.9 mg/dL (2.7-4.5); Potassium 5.2 mEq/L (3.5-5.1)
[2022-01-15] MEDS ORDERED: 0.9 % Sodium Chloride 250 ML IVC PRN (08:03)
[2022-01-15] MEDS: Insulin LISPRO 300 UNITS/3 ML VIAL SUBQ SCH ×4 (08:40→21:16)
[2022-01-15] MEDS: SODIUM ZIRCONIUM CYCLOSILICATE 5 GM POWD.PACK PO SCH (08:45)
[2022-01-15] MEDS ORDERED: levETIRAcetam 250 MG TABLET PO SCH (09:00)
[2022-01-15] MEDS ORDERED: Ipratropium/Albuterol Neb 3 ML IH PRN (11:09)
[2022-01-15 13:31] LABS: % Iron Saturation 52 % (20-55); Iron 106 mcg/dL (65-175); Transferrin 145 mg/dL (203-362)
[2022-01-15] MEDS ORDERED: Morphine Sulfate 2 MG/ML SYRINGE IVP ONE (13:53)
[2022-01-15] MEDS: *HR* Heparin 5,000 UNIT/ML VIAL SQ SCH ×2 (17:35→17:48)
[2022-01-15] MEDS: Lactobacillus 1 EACH CAP.SPRINK PO SCH (20:30)
[2022-01-15] MEDS ORDERED: Gabapentin 300 MG CAPSULE PO SCH (21:00)
[2022-01-15] MEDS ORDERED: *HR* LORazepam 2 MG/ML VIAL IVP ONE (22:44)
[2022-01-16 03:46] LABS: Basophils % 0.5 %; Eosinophils # 0.3 K/mcL (0.0-0.6); Eosinophils % 4.2 %; Hemoglobin 10.2 g/dL (12.9-16.9); Immature Granulocytes % 0.3 % (0-4); Lymphocytes # 0.8 K/mcL (0.6-4.6); Lymphocytes % 12.7 %; Mean Corpuscular HGB Conc 31.9 g/dL (31.6-35.5); Mean Corpuscular Hemoglobin 31.7 pg (28.0-33.3); Mean Corpuscular Volume 99.4 fL (83.0-100.0); Mean Platelet Volume 9.1 fL (9.4-12.4); Monocytes # 0.8 K/mcL (0.0-1.3); Monocytes % 13.2 %; Neutrophils # 4.3 K/mcL (1.6-8.9); Platelet Count 184 K/mcL (140-400); Red Blood Count 3.22 M/mcL (4.19-5.50); Red Cell Distribution Width 15.1 % (11.5-14.5); Segmented Neutrophils % 69.1 %; White Blood Count 6.2 K/mcL (4.3-11.1)
[2022-01-16 03:53] LABS: Albumin 3.9 g/dL (3.5-5.7); Albumin/Globulin Ratio 1.1 (1.1-2.2); Bilirubin,Indirect 0.4 mg/dL (0.0-1.0); Bilirubin,Total 0.4 mg/dL (0.3-1.0); Calcium 9.4 mg/dL (8.6-10.3); Globulin 3.4 g/dL (2.4-3.5); Magnesium 1.9 mg/dL (1.6-2.6); Phosphorous 5.1 mg/dL (2.7-4.5); Potassium 3.9 mEq/L (3.5-5.1); Total Protein 7.3 g/dL (6.4-8.9)
[2022-01-16] MEDS: *HR* Heparin 5,000 UNIT/ML VIAL SQ SCH (05:32)
[2022-01-16 07:54] VITALS: BP 106/67; PULSE 77; TEMP 97.8; O2SAT 98
[2022-01-16] MEDS ORDERED: Aspirin Enteric Coated 81 MG Tablet PO SCH (09:00)
[2022-01-16] MEDS: Insulin LISPRO 300 UNITS/3 ML VIAL SUBQ SCH ×2 (09:24→11:41)
[2022-01-16] MEDS: Lactobacillus 1 EACH CAP.SPRINK PO SCH (09:24)
[2022-01-16] MEDS: SODIUM ZIRCONIUM CYCLOSILICATE 5 GM POWD.PACK PO SCH (09:25)
[2022-01-16] MEDS ORDERED: levETIRAcetam 250 MG TABLET PO SCH (16:00)
[2022-01-17] MEDS ORDERED: NIFEdipine XL (24 HR) 30 MG TAB.ER.24 PO SCH (09:00)
== END 2022-01-16 13:43 | disposition home or self-care (01) ==
LOC: 2ANU 23:55 → EMEROOARM 23:55 → SUATTDRO 01-14 04:03 → 2ANU 01-14 04:52
PROVIDERS: ADMIT Internal Medicine; ATTEND Pharmacist

== ENCOUNTER 2022-02-03 10:48 | Inpatient (IN) ==
[2022-02-03] MEDS ORDERED: Iopamidol - 370 500 ML MLS IVP ONE (11:05)
[2022-02-03] MEDS ORDERED: Ondansetron 4 MG/2 ML VIAL IVP ONE (11:05)
[2022-02-03 13:16] LABS: Hematocrit 28.5 % (37.5-50.1); Hemoglobin 9.4 g/dL (12.9-16.9); Mean Corpuscular Hemoglobin 32.1 pg (28.0-33.3); Mean Corpuscular Volume 97.3 fL (83.0-100.0); Platelet Count 177 K/mcL (140-400); Red Blood Count 2.93 M/mcL (4.19-5.50); Red Cell Distribution Width 13.7 % (11.5-14.5); White Blood Count 7.4 K/mcL (4.3-11.1)
[2022-02-03 13:24] LABS: Prothrombin Time 11.6 Seconds (9.4-12.1)
[2022-02-03 13:26] LABS: Activated Partial Thrombo Time 33.3 Seconds (26.0-36.0)
[2022-02-03 13:38] LABS: Calcium 9.9 mg/dL (8.6-10.3); Magnesium 1.8 mg/dL (1.6-2.6); Phosphorous 3.5 mg/dL (2.7-4.5); Troponin I 0.06 ng/mL (< 0.04)
[2022-02-03] MEDS ORDERED: Calcium Gluconate 1,000 MG/10 ML VIAL IVP STA (15:11)
[2022-02-03] MEDS ORDERED: Albuterol 2.5 MG/3 ML NEBULIZER IH ONE (15:12)
[2022-02-03] MEDS ORDERED: 0.9 % Sodium Chloride 250 ML IVC PRN (15:14)
[2022-02-03] MEDS ORDERED: Insulin Human Regular 10 UNIT in 0.9 % Sodium Chloride 10 ML IV ONE (15:24)
[2022-02-03] MEDS ORDERED: *HR* Dextrose 50 % in Water (Syg) 50 ML SYRINGE IVP ONE (15:24)
[2022-02-03] MEDS ORDERED: 0.9 % Sodium Chloride 2,000 ML PRIME SCH (15:30)
[2022-02-03] MEDS ORDERED: *HR* HYDROcodone/Acet 5/325 mg TABLET PO PRN (16:02)
[2022-02-03] MEDS ORDERED: Melatonin 3 MG TABLET PO PRN (16:02)
[2022-02-03] MEDS ORDERED: Acetaminophen 325 MG TABLET PO PRN (16:02)
[2022-02-03] MEDS ORDERED: Naloxone 0.4 MG/ML INJ IVP PRN (16:02)
[2022-02-03] MEDS ORDERED: Ondansetron 4 MG/2 ML VIAL IVP PRN (16:02)
[2022-02-03] MEDS ORDERED: Ipratropium/Albuterol Neb 3 ML IH PRN (16:20)
[2022-02-03] MEDS ORDERED: *HR* Dextrose 50 % in Water (Syg) 50 ML SYRINGE IVP PRN (16:51)
[2022-02-03] MEDS ORDERED: Dextrose Gel 15 GM/37.5 ML TUBE PO PRN ×2 (16:51)
[2022-02-03] MEDS ORDERED: D5% in Water 1,000 ML IVC PRN (16:51)
[2022-02-03] MEDS: *HR* Heparin 5,000 UNIT/ML VIAL SQ SCH (19:16)
[2022-02-03] MEDS: Gabapentin 300 MG CAPSULE PO SCH (21:58)
[2022-02-03] MEDS: Lactobacillus 1 EACH CAP.SPRINK PO SCH (21:58)
[2022-02-03] MEDS: carvediloL 6.25 MG TABLET PO SCH (21:59)
[2022-02-04] MEDS: *HR* Heparin 5,000 UNIT/ML VIAL SQ SCH ×2 (05:57→17:30)
[2022-02-04] MEDS: Insulin LISPRO 300 UNITS/3 ML VIAL SUBQ SCH ×3 (07:57→16:37)
[2022-02-04] MEDS: Aspirin Enteric Coated 81 MG Tablet PO SCH (09:02)
[2022-02-04] MEDS: NIFEdipine XL (24 HR) 30 MG TAB.ER.24 PO SCH (09:02)
[2022-02-04] MEDS: Lactobacillus 1 EACH CAP.SPRINK PO SCH ×2 (09:02→21:13)
[2022-02-04] MEDS: carvediloL 6.25 MG TABLET PO SCH ×2 (09:02→21:14)
[2022-02-04] MEDS: SODIUM ZIRCONIUM CYCLOSILICATE 5 GM POWD.PACK PO SCH (09:03)
[2022-02-04] MEDS: levETIRAcetam 250 MG TABLET PO SCH (16:26)
[2022-02-04 20:30] LABS: Hematocrit 26.7 % (37.5-50.1); Hemoglobin 8.8 g/dL (12.9-16.9); Mean Corpuscular Volume 97.4 fL (83.0-100.0); Red Blood Count 2.74 M/mcL (4.19-5.50); White Blood Count 5.5 K/mcL (4.3-11.1)
[2022-02-04 20:31] LABS: Basophils % 0.5 %; Eosinophils # 0.2 K/mcL (0.0-0.6); Eosinophils % 4.4 %; Immature Granulocytes % 0.2 % (0-4); Lymphocytes # 0.8 K/mcL (0.6-4.6); Lymphocytes % 13.9 %; Mean Corpuscular Hemoglobin 32.1 pg (28.0-33.3); Mean Platelet Volume 8.8 fL (9.4-12.4); Monocytes # 0.6 K/mcL (0.0-1.3); Monocytes % 10.2 %; Neutrophils # 3.9 K/mcL (1.6-8.9); Platelet Count 160 K/mcL (140-400); Red Cell Distribution Width 13.6 % (11.5-14.5); Segmented Neutrophils % 70.8 %
[2022-02-04 20:51] LABS: Albumin 3.3 g/dL (3.5-5.7); Albumin/Globulin Ratio 1.1 (1.1-2.2); Bilirubin,Total 0.3 mg/dL (0.3-1.0); Calcium 8.7 mg/dL (8.6-10.3); Globulin 3.1 g/dL (2.4-3.5); Magnesium 1.8 mg/dL (1.6-2.6); Phosphorous 5.6 mg/dL (2.7-4.5); Potassium 6.7 mEq/L (3.5-5.1); Total Protein 6.4 g/dL (6.4-8.9)
[2022-02-04] MEDS: Gabapentin 300 MG CAPSULE PO SCH (21:13)
[2022-02-04] MEDS ORDERED: Insulin Human Regular 10 UNIT in 0.9 % Sodium Chloride 10 ML IV ONE (21:17)
[2022-02-04] MEDS ORDERED: *HR* Dextrose 50 % in Water (Syg) 50 ML SYRINGE IVP ONE (21:17)
[2022-02-04] MEDS ORDERED: Calcium Gluconate 1gm/50mL 1 GM/50 ML BAG IVPB ONE (21:19)
[2022-02-05 01:24] LABS: Potassium 6.4 mEq/L (3.5-5.1)
[2022-02-05] MEDS ORDERED: 0.9 % Sodium Chloride 250 ML IVC PRN (07:29)
[2022-02-05] MEDS ORDERED: 0.9 % Sodium Chloride 2,000 ML PRIME SCH (07:30)
[2022-02-05] MEDS: *HR* Heparin 5,000 UNIT/ML VIAL SQ SCH ×2 (08:27→17:21)
[2022-02-05] MEDS: Insulin LISPRO 300 UNITS/3 ML VIAL SUBQ SCH ×3 (09:47→17:21)
[2022-02-05 12:02] LABS: C.difficile Toxin A/B Gene PCR DETECTED (Not detect); Campylobacter by PCR Not detected (Not detect)
[2022-02-05 12:03] LABS: Adenovirus F 40/41 PCR Not detected (Not detect); Astrovirus PCR Not detected (Not detect); Cryptosporidium by PCR Not detected (Not detect); Cyclospora cayetanensis PCR Not detected (Not detect); E. coli O157 by PCR Not detected (Not detect); Entamoeba histolytica PCR Not detected (Not detect); Enteroaggregative E.coli(EAEC) Not detected (Not detect); Enteropathogenic E.coli(EPEC) Not detected (Not detect); Enterotoxigenic E.coli (ETEC) Not detected (Not detect); Giardia lamblia PCR Not detected (Not detect); Norovirus GI/GII PCR Not detected (Not detect); Plesiomonas shigelloides PCR Not detected (Not detect); Rotavirus A PCR Not detected (Not detect); Salmonella PCR Not detected (Not detect); Sapovirus PCR Not detected (Not detect); Shig/EnteroinvasiveE coli EIEC Not detected (Not detect); Shigalike tox-prod E coli STEC Not detected (Not detect); Vibrio PCR Not detected (Not detect); Vibrio cholerae PCR Not detected (Not detect); Yersinia enterocolitica PCR Not detected (Not detect)
[2022-02-05] MEDS: levETIRAcetam 250 MG TABLET PO SCH (13:46)
[2022-02-05] MEDS: NIFEdipine XL (24 HR) 30 MG TAB.ER.24 PO SCH (13:46)
[2022-02-05] MEDS: carvediloL 6.25 MG TABLET PO SCH ×2 (13:46→22:31)
[2022-02-05] MEDS: Vancomycin Oral Soln 125 MG/2.5 ML UDC PO SCH ×2 (13:47→22:31)
[2022-02-05] MEDS: Lactobacillus 1 EACH CAP.SPRINK PO SCH ×2 (13:47→22:32)
[2022-02-05] MEDS: SODIUM ZIRCONIUM CYCLOSILICATE 5 GM POWD.PACK PO SCH (13:47)
[2022-02-05] MEDS: Aspirin Enteric Coated 81 MG Tablet PO SCH (13:47)
[2022-02-05] MEDS: Gabapentin 300 MG CAPSULE PO SCH (22:32)
[2022-02-06] MEDS: Vancomycin Oral Soln 125 MG/2.5 ML UDC PO SCH ×4 (02:05→22:04)
[2022-02-06 06:02] LABS: Basophils % 0.5 %; Eosinophils # 0.2 K/mcL (0.0-0.6); Eosinophils % 3.3 %; Hematocrit 27.3 % (37.5-50.1); Hemoglobin 8.8 g/dL (12.9-16.9); Immature Granulocytes % 0.3 % (0-4); Lymphocytes # 0.7 K/mcL (0.6-4.6); Lymphocytes % 12.4 %; Mean Corpuscular HGB Conc 32.2 g/dL (31.6-35.5); Mean Corpuscular Hemoglobin 31.8 pg (28.0-33.3); Mean Corpuscular Volume 98.6 fL (83.0-100.0); Mean Platelet Volume 9.7 fL (9.4-12.4); Monocytes # 0.6 K/mcL (0.0-1.3); Neutrophils # 4.2 K/mcL (1.6-8.9); Platelet Count 156 K/mcL (140-400); Red Blood Count 2.77 M/mcL (4.19-5.50); Red Cell Distribution Width 13.7 % (11.5-14.5); Segmented Neutrophils % 72.5 %; White Blood Count 5.8 K/mcL (4.3-11.1)
[2022-02-06] MEDS: *HR* Heparin 5,000 UNIT/ML VIAL SQ SCH ×2 (06:21→17:06)
[2022-02-06 06:25] LABS: Calcium 8.6 mg/dL (8.6-10.3); Potassium 5.6 mEq/L (3.5-5.1)
[2022-02-06] MEDS: levETIRAcetam 250 MG TABLET PO SCH (08:53)
[2022-02-06] MEDS: Aspirin Enteric Coated 81 MG Tablet PO SCH (08:53)
[2022-02-06] MEDS: Lactobacillus 1 EACH CAP.SPRINK PO SCH ×2 (08:54→22:02)
[2022-02-06] MEDS: NIFEdipine XL (24 HR) 30 MG TAB.ER.24 PO SCH (08:54)
[2022-02-06] MEDS: carvediloL 6.25 MG TABLET PO SCH ×2 (08:54→22:02)
[2022-02-06] MEDS: SODIUM ZIRCONIUM CYCLOSILICATE 5 GM POWD.PACK PO SCH (08:59)
[2022-02-06] MEDS: Insulin LISPRO 300 UNITS/3 ML VIAL SUBQ SCH ×3 (09:00→17:05)
[2022-02-06 14:05] LABS: Calcium 8.3 mg/dL (8.6-10.3); Potassium 6.3 mEq/L (3.5-5.1)
[2022-02-06 20:54] VITALS: O2SAT 94
[2022-02-06] MEDS: Gabapentin 300 MG CAPSULE PO SCH (22:02)
[2022-02-07] MEDS: Vancomycin Oral Soln 125 MG/2.5 ML UDC PO SCH ×3 (04:19→14:29)
[2022-02-07] MEDS: *HR* Heparin 5,000 UNIT/ML VIAL SQ SCH (06:18)
[2022-02-07] MEDS ORDERED: 0.9 % Sodium Chloride 250 ML IVC PRN (06:36)
[2022-02-07] MEDS ORDERED: 0.9 % Sodium Chloride 2,000 ML PRIME SCH (06:45)
[2022-02-07 07:55] VITALS: PULSE 69
[2022-02-07] MEDS ORDERED: SODIUM ZIRCONIUM CYCLOSILICATE 5 GM POWD.PACK PO SCH (12:15)
[2022-02-07 13:35] VITALS: BP 151/75; TEMP 97.9
[2022-02-07] MEDS: Insulin LISPRO 300 UNITS/3 ML VIAL SUBQ SCH ×3 (14:01→17:39)
[2022-02-07] MEDS: Aspirin Enteric Coated 81 MG Tablet PO SCH (14:31)
[2022-02-07] MEDS: carvediloL 6.25 MG TABLET PO SCH (14:32)
[2022-02-07] MEDS: Lactobacillus 1 EACH CAP.SPRINK PO SCH (14:32)
[2022-02-07] MEDS: NIFEdipine XL (24 HR) 30 MG TAB.ER.24 PO SCH (14:32)
[2022-02-07] MEDS ORDERED: levETIRAcetam 250 MG TABLET PO SCH (16:00)
== END 2022-02-07 19:45 | disposition home or self-care (01) | DRG 640 ==
LOC: EMEROOARM 10:48 → 2ANU 10:48 → SUATTDRO 15:32 → 2ANU 16:42
PROVIDERS: ADMIT Internal Medicine; ATTEND Internal Medicine